=== PATIENT | female | born 1950 | race Caucasian/White ===

== ENCOUNTER 2018-04-19 11:02 | Observation (INO) | payer MEDICARE, MEDICAID, SELFPAY ==
[2018-02-02 20:38] VITALS: BMI 44.4
[2018-04-19] VITALS (14 sets, daily range): BP systolic 120–151; BP diastolic 61–92; PULSE 80–91; RESP 14–20; TEMP 36.3–36.7; O2SAT 85–96; BMI 45.8
--- NOTE | 2018-04-19 | DI.MRI.S_ITS ---
PROCEDURE: MR HEAD/BRAIN WO CON INDICATIONS: possible cva TECHNIQUE: Non-contrast axial T1 spin echo, axial T2 fast spin echo, sagittal and axial FLAIR, coronal T2 fast spin echo, axial gradient echo, axial diffusion and ADC through the brain. COMPARISON: [facility], MR, STROKE PROTOCOL, 02/22/2011, 8:30. [facility], CT, CT HEAD/BRAIN WO CON, 04/19/2018, 11:04. FINDINGS: Image quality: Excellent. CSF spaces: Ventricles appear symmetric in size and shape. Basal cisterns are patent. No extra-axial fluid collections. Brain: Old infarcts involving the frontal lobes bilaterally with associated encephalomalacia. No intracranial bleeds or mass effects. There is mild cerebral volume loss for age. There are mild periventricular and deep white matter chronic small vessel ischemic changes. Brainstem appears normal. Diffusion-weighted images show no acute ischemic insults. No chronic ischemic insults. Normal intravascular flow voids are present. Skull and face: Calvarial bone marrow is normal in signal. Orbits are normal. Sinuses: Sinuses and mastoids are clear. IMPRESSION: 1. No acute intracranial abnormalities. 2. 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 3. Cerebral volume loss and chronic microvascular ischemic changes. Dictated by: Carl Carpenter M.D. on 04/20/2018 at 8:11 Transcribed by: EMILEE on 04/20/2018 at 8:13 Approved by: Carl Carpenter M.D. on 04/20/2018 at 15:06
--- NOTE | 2018-04-19 11:02 | ED.HA ---
HPI - Headache General Chief Complaint: Headache Stated Complaint: headache Time Seen by Provider: 04/19/18 11:05 Source: patient and EMS Mode of arrival: EMS Limitations: no limitations History of Present Illness HPI Narrative: 67-year-old female with extensive medical history including prior strokes and migraines with stroke mimic presents by EMS for evaluation of slurred speech and left upper extremity weakness noted at 3:00 a.m.. She went to bed at 10:00 p.m. was at her normal baseline and awoke with head pain and the above-stated symptoms. She has a long history of migraines with neurologic findings such as this. She states that this is very typical for her migraines. Her pain is on the right side of her head and is associated with stuttering speech. Family members and caregiver states this is following a typical pattern. She has not been to our facility under the circumstances but has been to [facility]. Additionally she states that her right leg feels more weak than normal. MD Complaint: migraine Related Data Home Medications Medication Instructions Recorded Confirmed clopidogrel [Plavix] 75 mg PO DAILY #0 06/15/17 04/19/18 fenofibrate 54 mg PO DAILY #0 06/15/17 04/19/18 sertraline [Zoloft] 100 mg PO QDAY #0 06/27/17 04/19/18 metformin 500 mg PO BID 02/02/18 04/19/18 Calcium 1 tab PO DAILY 04/19/18 04/19/18 albuterol sulfate [Ventolin HFA] 1 - 2 puff INHALATION Q4H PRN 04/19/18 04/19/18 bupropion HCl 2 tab PO DAILY 04/19/18 04/19/18 gabapentin 600 mg PO TID 04/19/18 04/19/18 ibuprofen 1 tab PO TID PRN 04/19/18 04/19/18 magnesium 1 tab PO QAM 04/19/18 04/19/18 trazodone 50 - 100 mg PO BEDTIME 04/19/18 04/19/18 Allergies Allergy/AdvReac Type Severity Reaction Status Date / Time vancomycin Allergy Intermediate Flushing Verified 04/19/18 15:17 Review of Systems Review of Systems All systems reviewed & are unremarkable except as noted in HPI and below Constitutional Denies chills, Denies fever(s), Reports headache(s), Denies lethargy and Denies weakness Eyes Denies change in vision, Denies eye discharge, Denies irritation and Denies loss of vision ENT Ears, Nose, Mouth, and Throat: Denies change in voice, Reports headache(s), Denies neck pain and Denies sore throat Cardiovascular Denies chest pain, Denies irregular heart rhythm, Denies lightheadedness, Denies palpitations, Denies dyspnea, Denies dyspnea on exertion and Denies orthopnea Respiratory Denies cough, Denies dyspnea, Denies dyspnea on exertion and Denies wheezing Gastrointestinal Gastrointestinal: Denies abdominal pain, Denies change in bowel habits, Denies diarrhea, Denies nausea and Denies vomiting Genitourinary Denies hematuria, Denies flank pain, Denies urinary incontinence and Denies urinary urgency Musculoskeletal Denies neck pain Integumentary/Breasts Denies pruritus, Denies erythema, Denies rash and Denies wounds Neurologic Reports abnormal speech, Denies confusion, Reports headache(s), Reports lack of coordination, Denies loss of vision and Denies weakness Psychiatric Denies anxiety, Denies confusion, Denies depression, Denies homicidal ideation and Denies suicidal ideation Endocrine Denies palpitations Hematologic/Lymphatic Denies easy bruising Allergic/Immunologic Denies wheezing [facility] Medical History History of stroke (Acute) Morbid obesity with BMI of 45.0-49.9, adult (Acute) Type 2 diabetes mellitus (Acute) Surgical History History of (Inactive) History of ventral hernia repair (Inactive) Social History household members: caregiver Smoking Status: Never smoker alcohol intake: never Exam Narrative Exam Narrative: Chronically ill, morbidly obese 67-year-old female in moderate distress Initial Vital Signs Initial Vital Signs: Vital Signs Temperature 97.9 F 04/19/18 11:05 Pulse Rate 82 04/19/18 11:05 Respiratory Rate 20 04/19/18 11:05 Blood Pressure 142/71 H 04/19/18 11:05 Pulse Oximetry 96 04/19/18 11:05 Const General: cooperative, in distress and ill appearing Nutritional Appearance: obese Orientation: alert, awake, oriented x3 and not confused HENMT Head: normocephalic and atraumatic Ears: external ears normal and TM's normal bilaterally Nose: external nose normal and No nasal discharge Face and sinus: sinuses nontender, face symmetric, no sinus tenderness and No dry mucous membranes Mouth: oral mucosae normal and moist mucous membranes Teeth and gingiva: dentition normal Throat: tonsils normal and uvula midline Eyes General: appearance normal, both eyes and all related structures Eyelids: eyelids normal Conjunctivae: conjunctivae normal Sclera: sclerae normal Pupils: PERRL EOM: EOM intact bilaterally Chest Chest: normal inspection of the chest Resp Effort & Inspection: normal respiratory effort, able to speak in complete sentences, no respiratory distress and no use of accessory muscles Auscultation: clear to auscultation bilaterally, no rales, no rhonchi and no wheezes Cardio Rate: regular rate Rhythm: regular rhythm Heart Sounds: no click, no gallops, no murmurs and no rubs Pulses: normal peripheral pulses GI Inspection: non-distended Palpation: soft, no hepatosplenomegaly, No guarding, No pulsatile mass and No tender Auscultation: normal bowel sounds Back/Spine/Pelvis Back: No CVA tenderness Cervical Spine: cervical ROM normal and No pain with cervical ROM Thoracic/Lumbar Spine: thoracic and lumbar spine normal to inspection Neuro General: alert, awake and oriented x3 Cranial Nerves: CN's II-XI intact bilaterally Cognition: normal cognition Speech: expressive aphasia Motor: movement abnormality noted Scores NIH Stroke Scale Level of Conciousness: Alert, keenly responsive Ask month/age: Answers both questions correctly. Open/close eyes, close hand: Performs both tasks correctly Best gaze horizontal: Normal Visual graff: No visual loss Facial palsy: Normal symetrical movement Left arm drift: No drift for full 10 sec Right arm drift: Drifts down, not to bed Left leg drift: No drift for full 10 sec Right leg drift: Some effort against gravity, cannot maintain, drifts down to bed Limb ataxia: Absent Sensory on face/arms/legs: Mild to moderate sensory loss, can tell touch Best language: Severe aphasia, not much is understood, fragmented Dysarthria: Normal Extinction or inattention: No abnormality Total NIH Stroke scale score: 6 Course Orders Ordered: ED Orders 04/19/18 11:02 EKG-12 Lead Stat 04/19/18 11:19 CT head/brain wo con Stat 04/19/18 11:26 Basic Metabolic Panel Stat Partial Thromboplastin Time Stat Prothrombin Time INR Stat 04/19/18 12:08 Urine Culture Stat Urine Drug Screen, Rapid Stat Urine Microscopic Stat 04/19/18 13:03 CT angio head and neck Stat Sodium Chloride (Normal Saline 0.9%) 1,000 mls @ 150 mls/hr IV CONT DANN Last Infusion: 04/19/18 12:49 Dose: 0 mls/hr Admin: 04/19/18 11:51 Dose: 150 mls/hr Discontinued Medications Ketorolac Tromethamine (Toradol) 15 mg IV NOW ONE Stop: 04/19/18 12:19 Last Admin: 04/19/18 12:28 Dose: 15 mg Methylprednisolone (Solu-Medrol 125 Mg Vial) 125 mg IV NOW ONE Stop: 04/19/18 12:19 Last Admin: 04/19/18 12:28 Dose: 125 mg Prochlorperazine (Compazine) 10 mg IV NOW ONE Stop: 04/19/18 12:19 Last Admin: 04/19/18 12:28 Dose: 10 mg Reevaluation(s) Reevaluation #1: slight improvement in ROBRETS, still has weakness in RUE, RLE Consultations Consultation #1: call to [facility] Stroke regarding migraine type presentation with the addition of new neurologic findings. He denies sure that this certainly warrants further evaluation particularly given the weakness is in the distribution of her former stroke. Recommendation was CT angiogram of head and neck and call back Consultation #2: Call back to [facility] stroke with normal findings on CTA. His recommendation is admission with neuro checks and treatment for both migraine and stroke. If no resolution of migraine type symptoms by the morning then MRI is reasonable Time: 15:18 Consultation #3: Called to Dr. Hernadez who was happy to accept this patient on her service. We discussed ordering an MRI out of the emergency department but would prefer to prevent 2 loads of IV contrast on a diabetic patient on metformin in 1 day. Additionally, it is unreasonable to discharge this patient even upon receipt of a possibly normal MRI Time: 15:19 Vital Signs - 8 hr 04/19/18 11:05 04/19/18 11:07 04/19/18 11:50 Temperature 97.9 F Pulse Rate 82 81 87 Respiratory Rate 20 15 17 Blood Pressure 142/71 H Blood Pressure [Left Arm] 142/71 H 120/67 Pulse Oximetry 96 95 96 04/19/18 12:28 04/19/18 12:56 04/19/18 13:08 Temperature Pulse Rate 80 83 86 Respiratory Rate 16 15 Blood Pressure 120/67 Blood Pressure [Left Arm] 122/69 H 142/61 H Pulse Oximetry 94 92 04/19/18 13:31 04/19/18 13:53 04/19/18 14:20 Temperature Pulse Rate 89 91 H Respiratory Rate 14 15 14 Blood Pressure Blood Pressure [Left Arm] 129/64 H 136/61 H Pulse Oximetry 94 95 93 04/19/18 15:00 04/19/18 16:00 Temperature Pulse Rate 89 86 Respiratory Rate 14 14 Blood Pressure Blood Pressure [Left Arm] 142/70 H 143/70 H Pulse Oximetry 95 MDM - Headache Lab Data Result diagrams: 04/19/18 11:26 Lab Results 04/19/18 04/19/18 04/19/18 Range/Units 11:26 11:26 12:08 PT 11.7 (10.1-12.7) SECONDS INR 1.1 (0.9-1.3) APTT 34 (26.4-36.2) SECONDS Sodium 142 (137-145) mmol/L Potassium 4.6 (3.4-5.1) mmol/L Chloride 104 (98-107) mmol/L Carbon Dioxide 30 (22-32) mmol/L BUN 23 H (7-17) mg/dL Creatinine 1.00 (0.52-1.04) mg/dL Estimated GFR 55.6 L (>60) mL/min BUN/Creatinine Ratio 23.0 H (6-22) Glucose 109 (80-110) mg/dL Calcium 9.7 (8.4-10.2) mg/dL Urine RBC (0-5/HPF) Urine WBC (0-5/HPF) Ur Squamous Epith Cells Urine Bacteria (None) Ur Culture Indicated? Micro UA Comment Urine Opiates Screen Negative (Negative) Ur Oxycodone Screen Negative (Negative) Urine Methadone Screen Negative (Negative) Ur Barbiturates Screen Negative (Negative) U Tricyclic Antidepress Negative (Negative) Ur Phencyclidine Scrn Negative (Negative) Ur Amphetamines Screen Negative (Negative) U Methamphetamines Scrn Negative (Negative) Ur MDMA Scrn (Ecstasy) Negative (Negative) U Benzodiazepines Scrn Negative (Negative) Urine Cocaine Screen Negative (Negative) U Marijuana (THC) Screen Negative (Negative) 04/19/18 Range/Units 12:08 PT (10.1-12.7) SECONDS INR (0.9-1.3) APTT (26.4-36.2) SECONDS Sodium (137-145) mmol/L Potassium (3.4-5.1) mmol/L Chloride (98-107) mmol/L Carbon Dioxide (22-32) mmol/L BUN (7-17) mg/dL Creatinine (0.52-1.04) mg/dL Estimated GFR (>60) mL/min BUN/Creatinine Ratio (6-22) Glucose (80-110) mg/dL Calcium (8.4-10.2) mg/dL Urine RBC 0-1/hpf (0-5/HPF) Urine WBC 1-5/hpf (0-5/HPF) Ur Squamous Epith Cells None seen Urine Bacteria Many (>30) H (None) Ur Culture Indicated? Specimen cultured Micro UA Comment Not Reportable Urine Opiates Screen (Negative) Ur Oxycodone Screen (Negative) Urine Methadone Screen (Negative) Ur Barbiturates Screen (Negative) U Tricyclic Antidepress (Negative) Ur Phencyclidine Scrn (Negative) Ur Amphetamines Screen (Negative) U Methamphetamines Scrn (Negative) Ur MDMA Scrn (Ecstasy) (Negative) U Benzodiazepines Scrn (Negative) Urine Cocaine Screen (Negative) U Marijuana (THC) Screen (Negative) Imaging Data CT scan - head: Radiologist's impression: PROCEDURE: CT HEAD/BRAIN WO CON INDICATIONS: ROBERTS, stroke symptoms since 299 TECHNIQUE: Noncontrast 4.5 mm thick angled axial sections acquired from the foramen magnum to the vertex, with coronal and sagittal reformats. For radiation dose reduction, the following was used: automated exposure control, adjustment of mA and/or kV according to patient size. COMPARISON: [facility], CT, HEAD WITHOUT CONTRAST, 08/02/2017, 18:42. FINDINGS: Image quality: Excellent. CSF spaces: Basal cisterns are patent. No extra-axial fluid collections. Ventricles are normal in size and shape. Brain: No intracranial hemorrhage, mass, or mass effect. There are bilateral areas of encephalomalacia in the frontal lobes with involvement of the insular cortices as well as a smaller region in the right occipital lobe. Findings are consistent with sequela of prior infarcts and appear unchanged from the prior study. No definite new effacement of the schneider-white matter junction identified. Skull and face: Calvarium and visualized facial bones are intact, without suspicious lesions. Sinuses: Visualized sinuses and mastoids are clear. IMPRESSION: 1. No definite acute intracranial abnormality. 2. Sequelae of old infarcts redemonstrated in the bilateral frontal and right occipital lobes as well as involvement of the bilateral insular cortices. Dictated by: Brijesh Bear M.D. on 04/19/2018 at 11:28 Approved by: Brijesh Bear M.D. on 04/19/2018 at 11:32 Discharge Plan Departure Patient Disposition: Admitted As Inpatient Clinical Impression: Stroke Admit Date/Time: 04/19/18 16:09 Admit Provider: Fatimah Hernadez
--- NOTE | 2018-04-19 11:13 | PC.NURSE ---
BGL 108 in field
--- NOTE | 2018-04-19 11:19 | DI.CT.S_ITS ---
PROCEDURE: CT HEAD/BRAIN WO CON INDICATIONS: ROBERTS, stroke symptoms since 0300 TECHNIQUE: Noncontrast 4.5 mm thick angled axial sections acquired from the foramen magnum to the vertex, with coronal and sagittal reformats. For radiation dose reduction, the following was used: automated exposure control, adjustment of mA and/or kV according to patient size. COMPARISON: [facility], CT, HEAD WITHOUT CONTRAST, 08/02/2017, 18:42. FINDINGS: Image quality: Excellent. CSF spaces: Basal cisterns are patent. No extra-axial fluid collections. Ventricles are normal in size and shape. Brain: No intracranial hemorrhage, mass, or mass effect. There are bilateral areas of encephalomalacia in the frontal lobes with involvement of the insular cortices as well as a smaller region in the right occipital lobe. Findings are consistent with sequela of prior infarcts and appear unchanged from the prior study. No definite new effacement of the schneider-white matter junction identified. Skull and face: Calvarium and visualized facial bones are intact, without suspicious lesions. Sinuses: Visualized sinuses and mastoids are clear. IMPRESSION: 1. No definite acute intracranial abnormality. 2. Sequelae of old infarcts redemonstrated in the bilateral frontal and right occipital lobes as well as involvement of the bilateral insular cortices. Dictated by: Brijesh Bear M.D. on 04/19/2018 at 11:28 Approved by: Brijesh Bear M.D. on 04/19/2018 at 11:32
[2018-04-19] MEDS: SODIUM CHLORIDE 0.9% 1,000 ML 150 ML IV ×2 (11:51→17:23)
[2018-04-19 11:52] LABS: INR 1.1 (0.9-1.3); Prothrombin Time 11.7 SECONDS (10.1-12.7)
[2018-04-19 11:55] LABS: PTT Partial Thromboplastin Tim 34 SECONDS (26.4-36.2)
[2018-04-19 11:56] LABS: Blood Urea Nitrogen 23 mg/dL (7-17); Calcium 9.7 mg/dL (8.4-10.2); Carbon Dioxide 30 mmol/L (22-32); Chloride 104 mmol/L (98-107); Estimated Glomerular Filt Rate 55.6 mL/min (>60); Glucose 109 mg/dL (80-110); HEMOLYSIS < 15 (0-50); Potassium 4.6 mmol/L (3.4-5.1); Sodium 142 mmol/L (137-145)
[2018-04-19 12:17] LABS: Urine Amphetamines Negative (Negative); Urine Barbiturates Negative (Negative); Urine Benzodiazepines Negative (Negative); Urine Cocaine Negative (Negative); Urine MDMA Negative (Negative); Urine Methadone Negative (Negative); Urine Methamphetamines Negative (Negative); Urine Morphine/Opi cutoff 2000 Negative (Negative); Urine Oxycodone Negative (Negative); Urine Phencyclidine Negative (Negative); Urine THC Negative (Negative); Urine Tricyclic Antidepressant Negative (Negative)
[2018-04-19] MEDS: methylPREDNISolone 125 MG/2 ML VIAL IV (12:28)
[2018-04-19] MEDS: KETOROLAC 60 MG/2 ML VIAL 15 MG IV (12:28)
[2018-04-19] MEDS: PROCHLORPERAZINE 10 MG/2 ML VIAL IV (12:28)
[2018-04-19 12:31] LABS: RBC Urine 0-1/HPF (0-5/HPF); Squamous Epithelial Cell Urine None Seen; WBC Urine 1-5/HPF (0-5/HPF)
[2018-04-19 12:32] LABS: Bacteria Urine Many (>30); Culture Indicated Urine Specimen Cultured
--- NOTE | 2018-04-19 13:03 | DI.CT.S_ITS ---
PROCEDURE: CT ANGIO HEAD AND NECK INDICATIONS: stroke like symptoms, request from Stroke Neurologist TECHNIQUE: Pre-contrast 4.5 mm thick sections acquired from the foramen magnum to the vertex. After the administration of intravenous contrast, 1 mm thick sections acquired from the aortic arch through the [place]. Post-contrast 4.5 mm thick sections then re-acquired from the foramen magnum to the vertex. 3-dimensional [id number] (MIP) and/or volume rendering reformats were acquired of the central intracranial vasculature and neck separately. COMPARISON: [facility], CT, CT HEAD/BRAIN WO CON, 04/19/2018, 11:04. [facility], CT, HEAD WITHOUT CONTRAST, 08/02/2017, 18:42. [facility], MR, STROKE PROTOCOL, 02/22/2011, 8:30. FINDINGS: Image quality: Excellent. BRAIN: CSF spaces: Ventricles are normal in size and shape. Basal cisterns are patent. No extra-axial fluid collections. Brain: No midline shift. No intracranial bleeds or masses. [place]-white matter interface appears intact. Bilateral frontal, insular and right occipital areas of low attenuation. Skull and face: Calvarium and facial bones appear intact, without suspicious lesions. Orbits appear normal. Sinuses: Sinuses and mastoids are clear. HEAD CT ANGIOGRAPHY: Anterior circulation: Intracranial internal carotid arteries are normal in size and flow. The flow within the paired anterior cerebral arteries is normal and symmetric. The flow within the middle cerebral arteries is normal and symmetric. The anterior communicating artery is seen. No aneurysms are seen. Posterior circulation: Visualized portions of the vertebral arteries demonstrate normal caliber, and join to form a normal appearing basilar artery. Flow within the posterior cerebral arteries is normal and symmetric. No aneurysms are seen. 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 The origins of the common carotid arteries appear patent. The common carotid arteries demonstrate normal caliber and courses. The bifurcation regions are both widely patent. The internal carotid arteries demonstrate normal calibers and courses. Posterior circulation: The origins of the vertebral arteries both appear widely patent. The more superior extracranial portions of both vertebral arteries also demonstrate normal courses and calibers. They join to form a normal appearing basilar artery. Soft tissues: Visualized neck soft tissues demonstrate no suspicious abnormalities. Bones: No suspicious bony lesions. Visualized cervical spine appears normally aligned. IMPRESSION: 1. No acute intracranial process. Stable appearance of previous areas of ischemia as noted above. 2. No areas of hemodynamically significant stenosis, vascular occlusion or aneurysmal dilation within the anterior or posterior circulation. 3. No areas of hemodynamically significant stenosis, vascular occlusion or aneurysmal dilation within the neck vasculature. Any quantitative measurements of stenosis were performed using NASCET criteria. Dictated by: Justine Dickens M.D. on 04/19/2018 at 13:49 Approved by: Justine Dickens M.D. on 04/19/2018 at 14:38
--- NOTE | 2018-04-19 13:24 | PC.NURSE ---
CT angio of head completed.
--- NOTE | 2018-04-19 19:01 | PM.HP.1 ---
History of Present Illness Date Patient Seen: 04/19/18 Time Patient Seen: 18:45 Chief complaint: headache Narrative: 67-year-old female, under the primary care of Dr. Man Melara who was brought to the [facility] Emergency room earlier today with concern of stuttered speech and right-sided weakness. She has been having migraine headache when she has headache and stuttered speech and some right leg weakness. She woke up at 3 o'clock in the morning with headache. She also has stuttered speech like she usually does. This time the right leg weakness seem to be worse. She also has numbness on the right lateral leg. She denies weakness on the right upper extremity. She was having difficulty ambulating at home. She was not able to stand for more than 5 min due to the leg weakness. She was subsequently brought to the emergency room. CT head and neck angiogram did not reveal acute intracranial process. There was stable appearance of previous stroke. There was no hemodynamics significant stenosis or vascular occlusion. She was admitted to the medicine floor for possible TIA versus CVA. 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 Darryl Bay. Family & Social History Social History: household members caregiver Prior Living Arrangements Apartment/Condo Safety & Behavioral: Feels Safe in Current Yes Environment Been Physically Hurt or No Threatened By a Person Suicidal Ideation Description None Suicide Plan Description No Plan Tobacco & Substance use: Smoking Status Never smoker alcohol intake never alcohol intake frequency 0-2 drinks per day Substance Use Type does not use Meds Home Medications Medication Instructions Recorded Confirmed Type clopidogrel [Plavix] 75 mg PO DAILY #0 06/15/17 04/19/18 History fenofibrate 54 mg PO DAILY #0 06/15/17 04/19/18 History sertraline [Zoloft] 100 mg PO QDAY #0 06/27/17 04/19/18 History metformin 500 mg PO BID 02/02/18 04/19/18 History Calcium 1 tab PO DAILY 04/19/18 04/19/18 History albuterol sulfate [Ventolin HFA] 1 - 2 puff INHALATION Q4H PRN 04/19/18 04/19/18 History bupropion HCl 2 tab PO DAILY 04/19/18 04/19/18 History gabapentin 600 mg PO TID 04/19/18 04/19/18 History ibuprofen 1 tab PO TID PRN 04/19/18 04/19/18 History magnesium 1 tab PO QAM 04/19/18 04/19/18 History trazodone 50 - 100 mg PO BEDTIME 04/19/18 04/19/18 History Allergies Allergy/AdvReac Type Severity Reaction Status Date / Time vancomycin Allergy Intermediate Flushing Verified 04/19/18 15:17 Exam Vital Signs (past 8 hours): - 04/19/18 11:05 04/19/18 11:07 04/19/18 11:50 Temperature 97.9 F Pulse Rate 82 81 87 Respiratory Rate 20 15 17 Blood Pressure 142/71 H Blood Pressure [Left Arm] 142/71 H 120/67 Pulse Oximetry 96 95 96 04/19/18 12:28 04/19/18 12:56 04/19/18 13:08 Temperature Pulse Rate 80 83 86 Respiratory Rate 16 15 Blood Pressure 120/67 Blood Pressure [Left Arm] 122/69 H 142/61 H Pulse Oximetry 94 92 04/19/18 13:31 04/19/18 13:53 04/19/18 14:20 Temperature Pulse Rate 89 91 H Respiratory Rate 14 15 14 Blood Pressure Blood Pressure [Left Arm] 129/64 H 136/61 H Pulse Oximetry 94 95 93 04/19/18 15:00 04/19/18 16:00 04/19/18 16:30 Temperature 98.0 F Pulse Rate 89 86 86 Respiratory Rate 14 14 18 Blood Pressure 151/75 H Blood Pressure [Left Arm] 142/70 H 143/70 H Pulse Oximetry 95 93 Oxygen Delivery Method Room Air Oxygen Flow Rate 3 Objective Labs Result Diagrams: 04/19/18 11:26 Labs: Laboratory Results - last 24 hr 04/19/18 04/19/18 04/19/18 11:26 11:26 12:08 PT 11.7 INR 1.1 APTT 34 Sodium 142 Potassium 4.6 Chloride 104 Carbon Dioxide 30 BUN 23 H Creatinine 1.00 Estimated GFR 55.6 L BUN/Creatinine Ratio 23.0 H Glucose 109 Calcium 9.7 Urine RBC Urine WBC Ur Squamous Epith Cells Urine Bacteria Ur Culture Indicated? Micro UA Comment Urine Opiates Screen Negative Ur Oxycodone Screen Negative Urine Methadone Screen Negative Ur Barbiturates Screen Negative U Tricyclic Antidepress Negative Ur Phencyclidine Scrn Negative Ur Amphetamines Screen Negative U Methamphetamines Scrn Negative Ur MDMA Scrn (Ecstasy) Negative U Benzodiazepines Scrn Negative Urine Cocaine Screen Negative U Marijuana (THC) Screen Negative 04/19/18 12:08 PT INR APTT Sodium Potassium Chloride Carbon Dioxide BUN Creatinine Estimated GFR BUN/Creatinine Ratio Glucose Calcium Urine RBC 0-1/hpf Urine WBC 1-5/hpf Ur Squamous Epith Cells None seen Urine Bacteria Many (>30) H Ur Culture Indicated? Specimen cultured Micro UA Comment Not Reportable Urine Opiates Screen Ur Oxycodone Screen Urine Methadone Screen Ur Barbiturates Screen U Tricyclic Antidepress Ur Phencyclidine Scrn Ur Amphetamines Screen U Methamphetamines Scrn Ur MDMA Scrn (Ecstasy) U Benzodiazepines Scrn Urine Cocaine Screen U Marijuana (THC) Screen Assessment & Plan Plan: Assessment/Plan Narrative: 1. Stuttered speech and right leg weakness: Most likely from her atypical migraine headache. We will do a brain MRI in the morning to rule out acute CVA or TIA. She received full-dose aspirin at the ER today. Continue gentle IV hydration with normal saline at 75 cc an hour. Goal of blood pressure will be a 150-160 systolic 2. Hypertension: Continue outpatient medication regimen. Aiming for systolic blood pressure around 150-160 to ensure perfusion. 3. Hyperlipidemia: She is on low-dose fenofibrate. We will check fasting lipid panel in the morning. We will start atorvastatin based on the recent guidelines of moderate to high-intensity statin treatment for patients with type 2 diabetes. 4. Type 2 diabetes: Her recent hemoglobin A1c was in good range. We will continue metformin 500 mg twice a day. We will check her fingerstick glucose readings. 5. Morbid obesity, BMI 45.9. She needs outpatient lifestyle modifications and weight loss. 6. Disposition: Possible discharge home tomorrow after MRI scan. Quality VTE Deep Vein Thrombosis/Pulmonary Embolism Present on Admission: No
[2018-04-19] MEDS: METFORMIN HCL 500 MG TABLET PO (22:35)
[2018-04-19] MEDS: GABAPENTIN 600 MG TABLET PO (22:35)
[2018-04-19] MEDS: TRAZODONE 50 MG TABLET PO (22:35)
[2018-04-19] MEDS: SERTRALINE 50 MG TABLET 100 MG PO (22:36)
[2018-04-19] MEDS: ATORVASTATIN 20 MG TABLET PO (22:36)
--- NOTE | 2018-04-19 23:12 | PC.NURSE ---
1630- Pt arrived to room 213 from ED via stretcher. NIH score=3 pt stuttering while performing NIH, but able to answer all questions and read/speak all sentances/words/describe pictures. Pt able to stand and use BSC with FWW. LAC NS @ 75 infusing. Pt able tolerating swallowing well and placed on ADA diet with fluids. Call light in reach and bed alarm on.
[2018-04-19] MEDS: IBUPROFEN 400 MG TABLET 800 MG PO (23:59)
[2018-04-20] VITALS (10 sets, daily range): BP systolic 128–144; BP diastolic 49–81; PULSE 79–91; RESP 16–19; TEMP 36.2–37.1; O2SAT 91–97
[2018-04-20 06:34] LABS: Cholesterol 148 mg/dL (140-199); HDL Cholesterol 50 mg/dL (40-60); LDL Cholesterol Calculated 82 mg/dL (<100); Triglycerides 79 mg/dL (35-150)
[2018-04-20] MEDS: SODIUM CHLORIDE 0.9% 1,000 ML 75 ML IV (06:53)
[2018-04-20] MEDS: buPROPion SR 150 MG TAB 300 MG PO (09:23)
[2018-04-20] MEDS: FENOFIBRATE 48 MG TABLET PO (09:24)
[2018-04-20] MEDS: GABAPENTIN 600 MG TABLET PO ×3 (09:24→20:47)
[2018-04-20] MEDS: METFORMIN HCL 500 MG TABLET PO ×2 (09:24→20:47)
[2018-04-20] MEDS: CLOPIDOGREL 75 MG TABLET PO (09:24)
[2018-04-20] MEDS: SERTRALINE 50 MG TABLET 100 MG PO (09:25)
[2018-04-20] MEDS: IBUPROFEN 400 MG TABLET 800 MG PO ×3 (11:13→22:05)
--- NOTE | 2018-04-20 12:00 | PT.IIE ---
Surgical History (Last Reviewed 04/19/18 @ 12:46 by Eliseo De Leon DO) History of (Inactive) History of ventral hernia repair (Inactive) Medical History (Last Reviewed 04/19/18 @ 19:05 by Fatimah Hernadez MD) History of stroke (Acute) Morbid obesity with BMI of 45.0-49.9, adult (Acute) Type 2 diabetes mellitus (Acute) Physical Therapy Inpatient Evaluation/Re-Eval M1 PT/OT-IP Prior Functional Status Start: 04/20/18 12:54 Freq: NEEDED Status: Active Protocol: Document 04/20/18 12:00 MDD (Rec: 04/20/18 13:21 [facility] [id number]) Medical Review Prior Functional Status Medical History Reviewed Yes Communication nml - does report stuttering and slurring is typical during a ROBERTS, but typically goes away within a few hours Mobility and Gait Used a four wheeled walker in the community. Furniture/wall walks in the home. Activities of Daily Living and IADL's Has a caregiver to assist from 8-4, 4x per week. Helps her with cleaning, laundry, shopping. Was indepedent with toileting, self care etc. Prior Functional Level (Other details) Had been walking with her caregiver up to 1/4 mile daily with her 4WW. Daughter and 2 grandchildren live in the same apartment complex, but not in the same apartment. Social History Household Members none Living Arrangements Apartment/Condo Number of Floors (Floors) One Floor Number of Stairs To Enter/Railing? 0 Home Environment Standard Height Toilet Home Equipment Tub Transfer Bench Grab Bars Near Toilet Employment Status Unemployed M2 PT-IP Current Condition Start: 04/20/18 12:54 Freq: NEEDED Status: Active Protocol: Document 04/20/18 12:00 MDD (Rec: 04/20/18 13:21 MDD [id number]) Physical Therapy Current Condition Current Condition Evaluation Date 04/20/18 Treatment Diagnosis R sided weakness, ROBERTS Onset Date 04/19/18 M3 PT-IP Subjective Start: 04/20/18 12:54 Freq: NEEDED Status: Active Protocol: Document 04/20/18 12:00 MDD (Rec: 04/20/18 13:21 MDD [id number]) Subjective Physical Therapy Visit Type Type Initial Evaluation Visit Start Time 11:30 Visit Stop Time 12:00 Total Visit Minutes 30 Number of IRRIGATOR Visits 0 Physical Therapy Visit Comments Patient Comments Reports feeling much better than yesterday. Still feels that her right leg is weaker and not working right. Therapy Pain Assessment Pain When Pain Assessed At Rest Pain Present Pain Present Pain Reported Location Head Intensity 5 Scale Used Numeric (1 - 10) Description Aching Pain Management Techniques Timing of Activity with Medications M4 PT-IP Mobility and Gait Start: 04/20/18 12:54 Freq: NEEDED Status: Active Protocol: Document 04/20/18 12:00 MDD (Rec: 04/20/18 13:21 MDD [id number]) PT-Bed Mobility Assessment Rolling Type of Rolling Roll to Left Level of Assist Independent Supine to Sit Supine to Sit Moderate Assistance Scooting Scooting to Edge of Bed Contact Guard Assistance PT-Transfer Assessment Sit to and From Stand Sit to and from Stand Contact Guard Assistance Equipment Transfer Assistive Device Gait Belt Front Wheeled Walker Transfers Transfer Destination Toilet Transfer Ability Level of Assist Contact Guard Assistance Gait Assessment Gait Gait Assistance Required: Contact Guard Assist Distance (Feet) (feet) 20 Assistive Devices Assistive Device Gait Belt Front Wheeled Walker Gait Deviations General Gait Pattern Decreased Stride Length Decreased Feet Clearance Factors Limiting Gait Function Factors Limiting Gait Function Decreased Strength Comments Gait Comments foot drop R LE, heavy cues for increased R hip/knee flexion, pointing toe towards ceiling. Able to ambulate to and from the bathroom with significant fatigue. PT-Balance Assessment Sitting Balance and Reactions Static Sitting Balance Ability Normal Dynamic Sitting Balance Ability Normal Standing Balance and Reactions Static Standing Balance Ability Good Dynamic Standing Balance Ability Fair M5 PT-IP Objective Assessments Start: 04/20/18 12:54 Freq: NEEDED Status: Active Protocol: Document 04/20/18 12:00 MDD (Rec: 04/20/18 13:21 MDD [id number]) Orientation Orientation/Cognition Level of Alertness Alert Orientation Name Age Birthday Month Date Year Day of Week Place Situation Safety Awareness Understands Safety Issues Memory Description No Deficits Noted Comments Intermittently stutters, but able to report history and respond to questions appropriately. Gross Range of Motion Upper Extremity ROM Assessment Within Functional Limits Lower Extremity ROM Assessment Right Impaired Strength Upper Extremity Strength Assessment Right Impaired Hand R supervisor sawmill strength appears slightly less than L (she is R hand dominant). Lower Extremity Strength Assessment Right Impaired Hip 3+/5 hip flexion (R) Knee 4/5 R knee extension, flexion Ankle 2/5 dorsiflexion, 3+/5 plantarflexion, 2/5 eversion Sensation Assessment Sensation Gross Sensation WNL Light Touch Absent Proprioception (Position) Intact Sensation Description Paresthesia Comments Sensation Comments L4, L5 dermatomes on R with slight decreased light touch sensation M6 PT-IP Treatment Start: 04/20/18 12:54 Freq: NEEDED Status: Active Protocol: Document 04/20/18 12:00 MDD (Rec: 04/20/18 13:21 [facility] [id number]) Physical Therapy Treatment Education Education Provided Safety Other Treatments Other Treatment Performed educated patient to work on ankle pumps when resting M7 PT-IP Assessment and Plan Start: 04/20/18 12:54 Freq: NEEDED Status: Active Protocol: Document 04/20/18 12:00 MDD (Rec: 04/20/18 13:21 [facility] [id number]) PT Summary Assessment and Plan Potential Rehabilitation Potential Good Status of Condition at Evaluation Evolving Summary Impairments Pain Strength Transfers Gait Activity Tolerance Progress Towards Goals Progressing Toward Goals Assessment Summary Pt requires mod A for supine to sit with HOB flat. CGA for sit to stand. CGA for gait with heavy cueing to increase R foot clearance. Pt presents well below functional baseline and should benefit from inpatient PT to improve her functional mobility. May also benefit from OT consult as well. Goals Bed Mobility Goal Independent Transfer Goal Independent Gait Goal Independent Gait Distance 50 feet with LRAD on level ground Days to Meet Goals 3 Frequency of Treatment Frequency Of Treatment Once a Day Treatment Plan Physical Therapy Treatment Plan Bed Mobility Training Gait Training Therapeutic Exercise Other Recommendations and Next Treatment Continue with bed mobility, Focus gait training, LE strengthening. Recommendations To Nursing Amount of Assist Needed 1 Person Assist Discharge Recommendations PT Discharge Recommendations SNF Rehab
--- NOTE | 2018-04-20 12:19 | PM.PN.1 ---
Subjective Date Patient Seen: 04/20/18 Time Patient Seen: 12:20 Interval history: Still complains of weakness on the right side worse than her baseline Exam Vital Signs (past 8 hours): - 04/20/18 04:35 04/20/18 08:30 Temperature 97.6 F 97.2 F L Pulse Rate 79 79 Respiratory Rate 18 18 Blood Pressure 128/70 H 144/81 H Pulse Oximetry 91 94 Oxygen Delivery Method Room Air Oxygen Flow Rate 0 Narrative Exam Narrative: Sitting in a chair who appears in no acute distress appears a little bit anxious Lungs clear Heart regular rhythm Abdomen obese Neuro exam she is awake alert and oriented she has some expressive aphasia some stuttering also she has weakness on the right upper and lower extremities that she says is worse than her baseline she does have a history of old stroke Objective Labs Result Diagrams: 04/19/18 11:26 Labs: Laboratory Results - last 24 hr 04/19/18 04/20/18 12:08 05:45 Triglycerides 79 Cholesterol 148 LDL Cholesterol, Calc 82 HDL Cholesterol 50 Urine RBC 0-1/hpf Urine WBC 1-5/hpf Ur Squamous Epith Cells None seen Urine Bacteria Many (>30) H Ur Culture Indicated? Specimen cultured Micro UA Comment Not Reportable Assessment & Plan Plan: Assessment/Plan Narrative: 1. Stuttered speech and right leg weakness: Most likely from her atypical migraine headache. MRI was normal. She still having a lot of weakness however that seems to be worse than usual she thinks this is due to her migraines. Will have physical therapy continue working with therapy. 2. Hypertension: Continue outpatient medication regimen. Aiming for systolic blood pressure around 150-160 to ensure perfusion. 3. Hyperlipidemia: She is on low-dose fenofibrate. We will check fasting lipid panel in the morning. We will start atorvastatin based on the recent guidelines of moderate to high-intensity statin treatment for patients with type 2 diabetes. 4. Type 2 diabetes: Her recent hemoglobin A1c was in good range. We will continue metformin 500 mg twice a day. We will check her fingerstick glucose readings. 5. Morbid obesity, BMI 45.9. She needs outpatient lifestyle modifications and weight loss. 6. Disposition: Probable discharge home on Tuesday Quality VTE Deep Vein Thrombosis/Pulmonary Embolism Present on Admission: No
--- NOTE | 2018-04-20 12:34 | PC.NURSE ---
Bushra states her R leg weakness is still not back to baseline, though she is better than yesterday. Assessment shows R leg obviously weaker than L. Able to sit up in chair and work with PT despite on-going migraine headache. Ida coma score=15. VSS.
--- NOTE | 2018-04-20 13:27 | CM.DPC ---
Left a message with [facility]/Josh that patient is admitted and asking to call back with a fax number.
--- NOTE | 2018-04-20 13:28 | CM.DANOTE ---
Addendum entered by Kayleen Pitt LPN 04/20/18 13:50: please note update: of PCS template: initial info included old info from an old admit that showed up in documentation. Correct info is documented below initial at 1320 today. Original Note: Discharge Planning/Care Management DCP: assessment: case received EMR reviewed and met with pt this morning. Introduced self and role. Met again with pt now to gather more information re the d/c issues and options. Pt is a 67 year old female who lives in [place] and admitted to care of hospitalist team yesterday evening. Admission status: confirmed thus far as OBS, per [facility]. Payer: Medicare and Medicaid. PCP: Dr. Man Garcia Neurologist: Darryl Hill PT saw pt today, recommends OT, order obtained. Pt states she does get the post stroke headaches and that if I catch them early enough I go to my doctor and he has a standing order for a toradol injection which usually helps. Pt says she is well supported at home: [employer] worker 8-4 4x week for cleaning, laundry, transport and daily walks outside. Tuesdays is Bible study. Saturdays: library/computer day. Tuesday: scientologist via bus. Pt's daughter sunny bernstein and she checks on me and is helpful. Meals: provided by [employer]. P: likely home when stable for same....when pt was here last year her [facility] caregiver picked her up. Follow.. CM Discharge Assessment Start: 04/20/18 13:11 Freq: Status: Active Protocol: Document 04/20/18 13:11 ITV (Rec: 04/20/18 13:13 ITV [id number]) Discharge Planning Assessment History Provided By Patient Medical Record Has Patient been admitted in last 30 No days? Is this patient on Medicare? Yes Prior Living Arrangements Apartment/Condo Household Members caregiver Is patient alert and oriented? Yes Referrals Initiated None needed Discharge Plan Home Transportation Arrangement daughter sade to pick and shovel worker patient todat ar 1500. Additional Comment Patient states she has notified [facility] worker of her discharge plans. Document 04/20/18 13:20 ITV (Rec: 04/20/18 13:27 ITV [id number]) Discharge Planning Assessment History Provided By Patient Medical Record Has Patient been admitted in last 30 No days? Is this patient on Medicare? Yes Prior Living Arrangements Apartment/Condo Type of transporation used prior to Relies on Others admit Comment Patient's daughter lives in the apt building across the street from pt. Independent with ADL's No: independent with basic functional mobility Is patient alert and oriented? Yes Needs Assistance With Meal Prep Home Chores / Shopping Caregiver for Another No DME Already Rented / Owned FWW / Walker Comment uses 4ww Comment Pt identifies Alexsandra Vaishali as her [facility] Doubler Operator. Her caregiver is provided by [facility]. [facility] will find contact numbers and will fax clinical as per process. Review Status In Process Next Review Type Continued Stay Review
--- NOTE | 2018-04-20 13:33 | ST.IPSCREEN ---
Addendum entered and electronically signed by Piero Mejia 04/20/18 13:40: Late Note Entry. Time of screen: 10:00 AM. Original Note: SENIOR QUALITY CONTROL INSPECTOR spoke with patient regarding her neurological symptoms secondary to her migraine. She stated that she usually starts to stutter and experience memory difficulty with her headaches, but these symptoms typically resolve in 4-5 hours. However, current symptoms had been lasting for 25+ hours, which is unusual. She did present with ongoing stuttering throughout the conversation with SENIOR QUALITY CONTROL INSPECTOR as well as word finding difficulty. She told SENIOR QUALITY CONTROL INSPECTOR that she does have memory difficulty at baseline, but uses multiple calendars and wall reminders at home to help herself keep up with her own schedule. She also has a scrum product owner to assist at home. SENIOR QUALITY CONTROL INSPECTOR discussed the patient's current status and recommended an evaluation to determine a new baseline for the patient's neurological issues during episodes of severe head pain. The patient agreed. SENIOR QUALITY CONTROL INSPECTOR spoke with RN, Luci, who ordered a speech evaluation. SENIOR QUALITY CONTROL INSPECTOR to follow up for formal evaluation of speech and memory. No billable charge this visit. Total time: 10 minutes.
--- NOTE | 2018-04-20 15:08 | OT.IP.EVAL ---
Past Medical History (Last Reviewed 04/19/18 @ 19:05 by Fatimah Hernadez MD) History of stroke (Acute) Morbid obesity with BMI of 45.0-49.9, adult (Acute) Type 2 diabetes mellitus (Acute) Surgical History (Last Reviewed 04/19/18 @ 12:46 by Eliseo De Leon DO) History of (Inactive) History of ventral hernia repair (Inactive) Occupational Therapy Inpatient Evaluation/Re-Eval M1 PT/OT-IP Prior Functional Status Start: 04/20/18 12:54 Freq: NEEDED Status: Active Protocol: Document 04/20/18 15:08 PJM (Rec: 04/20/18 15:59 PJ [id number]) Medical Review Prior Functional Status Medical History Reviewed Yes Diet/Fluid Consistency Regular Communication nml - does report stuttering and slurring is typical during a ROBERTS, but typically goes away within a few hours Mobility and Gait Used a four wheeled walker in the community. Furniture/wall walks in the home. Activities of Daily Living and IADL's Has a caregiver to assist from 8-4, 4x per week. Helps her with cleaning, laundry, shopping. Was independent with toileting, self care etc. Pt receives Meals on Wheels . Prior Functional Level (Other details) Had been walking with her caregiver up to 1/4 mile daily with her 4WW. Daughter and 2 grandchildren live in the same apartment complex, but not in the same apartment. Social History Household Members none Living Arrangements Apartment/Condo Number of Floors (Floors) One Floor Number of Stairs To Enter/Railing? none Home Environment Standard Height Toilet Tub/Shower Home Equipment Four Wheel Walker Tub Transfer Bench Surveillance Director Sock Aid Grab Bars Near Toilet Employment Status Retired M2 OT-IP Current Condition Start: 04/20/18 15:29 Freq: Status: Active Protocol: Document 04/20/18 15:08 PJM (Rec: 04/20/18 15:59 PJM [id number]) Occupational Therapy Current Condition Current Condition Evaluation Date 04/20/18 Treatment Diagnosis R hand incoordination, decreased functional mobility due to TIA/migraine Diagnosis Onset Date 04/19/18 Post Operative Precautions Other Precautions fall risk M3 OT- IP Subjective and Pain Start: 04/20/18 15:29 Freq: Status: Active Protocol: Document 04/20/18 15:08 PJM (Rec: 04/20/18 15:59 PJ [email or web address]) OT- Subjective Occupational Therapy Visit Type Type Initial Evaluation Visit Start Time 14:25 Visit Stop Time 15:08 Total Visit Minutes 43 Occupational Therapy Visit Comments Patient Comments Usually when I get these migraines, the problems only last about 8 hrs. This is the longest one has lasted. Patient/Caregiver Goals to go home, get back to normal OT Pain Assessment Pain When Pain Assessed After Treatment Pain Present Pain Present Pain Reported Location Head Intensity 5 Scale Used Numeric (1 - 10) Description Aching M4 OT- IP ADL's Start: 04/20/18 15:29 Freq: Status: Active Protocol: Document 04/20/18 15:08 PJM (Rec: 04/20/18 15:59 PJ [email or web address]) OT [id number] General Evaluation Self-Feeding Ability Independent Comments OT Self-Feeding Comments Pt reports no coordination problems using eating utensil using R dominant hand. OT ADL-Grooming General Evaluation Grooming Ability Independent Areas Needing Assistance Face Washing OT ADL-Oral Care General Eval Oral Care Ability Independent Areas of Assistance Brushing Teeth Comments Oral Care Comments Pt reports no difficulty with R hand coordination with toothbrush. OT ADL-Dressing General Eval Lower Body Dressing Ability Standby Assistance Areas Needing Assistance Socks Assistive Devices Dressing Assistive Devices Surveillance Director Sock Aid Comments OT Dressing Comments Pt has home help aide and sock aid but has not used since back surgery in Jun 2017. Pt needed mod cues to recall how to use sock aid as she cannot reach R foot at present. Provided education re: use of home help aide and sock aid for lower body dressing. Pt used home help aide to doff B socks. Pt has no other clothes here at present. Daughter to bring them tomorrow. OT ADL-Toileting General Evaluation Toileting Ability Independent OT ADL-Bathing Comments OT Bathing Comments to be assessed M5 OT- IP IADL's Start: 04/20/18 15:29 Freq: Status: Active Protocol: Document 04/20/18 15:08 PJM (Rec: 04/20/18 15:59 PJ [email or web address]) OT-Instrumental Activities of Daily Living Deficits IADL Deficits Identified Deficits Home Safety Awareness Awareness of Need for Assistance at Home Good Awareness Ability to Problem Solve Emergency Able to Problem Solve Situations Medication Management Medication Management No Deficits Identified Medication Management Comments Pt reports managing own meds with use of pillbox. Money Management Money Management No Deficits Identified Money Management Comments Pt pays bills with debit card. Meal Preparation Meal Preparation Caregiver Provides Assist Meal Preparation Comments Caregiver assists with grocery shopping and pt also gets Meals on Wheels. Manager Women Manager Women Caregiver Provides Assist Manager Women Comments Caregiver assists with cleaning and laundry. Driving Driving Caregiver Provides Assist Driving Comments Pt no longer drives since stroke. M6 OT- IP Functional Cognition Start: 04/20/18 15:29 Freq: Status: Active Protocol: Document 04/20/18 15:08 PJM (Rec: 04/20/18 15:59 PJ [email or web address]) Cognitive Factors Limiting Selfcare Function Cognitive Ability Level of Alertness Alert Patient Orientation Name Month Year Place Situation Attention Span Ability Capable of Focused Attention Capable of Sustained Attention Ability to Follow Commands Able to Follow One Step Commands Safety Awareness No Deficits Noted Cognitive Comments Cognitive Assessment Comments Pt alert and oriented; able to give good history. Pt appears to be at cognitive baseline. OT- Vision and Hearing OT- Hearing Assessment OT- Hearing Assessment WFL OT- Vision Assessment Visual Acuity WFL Glasses All The Time Visual Attentiveness WFL Visual [place] WFL Diplopia Absent Vision Assessment Comments Pt denies any vision changes since admit. No new vision deficits identified. Pt wears trifocals. M7 OT- IP Mobility and Balance Start: 04/20/18 15:29 Freq: Status: Active Protocol: Document 04/20/18 15:08 PJM (Rec: 04/20/18 15:59 PJ [email or web address]) OT- Bed Mobility Assessment Rolling Type of Rolling Roll to Right Level of Assistance Standby Assistance Supine to Sit Supine to Sit Assist Minimal Assistance Scooting Scooting to Edge of Bed Standby Assistance OT-Transfer Assessment Sit to and From Stand Sit to and from Stand Contact Guard Assistance Transfers Transfer Ability Standby Assistance Technique Transfer Destination Chair Toilet Transfer Technique Stand Step Pivot Devices Transfer Assistive Devices Gait Belt Front Wheeled Walker OT- Gait Assessment Assistive Devices Assistive Device Gait Belt Front Wheeled Walker Comments Gait Ability Comments Pt able to walk 10 ft to bathroom and back with FWW with no loss of balance noted. Pt able to clear R foot and is aware of weakness in R ankle. OT- Balance Assessment Sitting Balance and Reactions Static Sitting Balance Ability Good Dynamic Sitting Balance Ability Fair Standing Balance and Reactions Static Standing Balance Ability Good Comments Other Balance Tests/Deviations/Treatment Pt had difficulty reaching : feet while seated in chair due to body habitus. M8 OT- IP Objective Assessments Start: 04/20/18 15:29 Freq: Status: Active Protocol: Document 04/20/18 15:08 PJM (Rec: 04/20/18 15:59 PJM [email or web address]) OT Gross Range of Motion Upper Extremity Range of Motion Assessment Within Functional Limits ROM Impairments RUE AROM slightly slower than LUE. 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 Pt's RUE/hand strength appears WFL for self care tasks, and this may be pt's baseline. LUE generally 4 to 4+/5 throughout. OT- Coordination Assessment Upper Extremity Finger to Nose Test Right UE Impaired Finger Tapping Test Right UE Impaired Comments Coordination Comments RUE YESSICA's mildly slower than LUE. R handwriting is ~90% legible but messier than usual per pt. Pt has had R hand incoordination since stroke in 2010 but uses R hand dominantly for all self care tasks. OT-Muscle Tone Assessment Muscle Tone WNL Yes OT Sensation Assessment Comments Summary Comments RUE sensation appears intact Edema Edema Absent M9 OT- IP Assessment and Plan Start: 04/20/18 15:29 Freq: Status: Active Protocol: Document 04/20/18 15:08 PJM (Rec: 04/20/18 15:59 PJM [email or web address]) OT Summary Assessment and Plan Potential Rehabilitation Potential Good Analytic Complexity at Evaluation Moderate Summary OT Impairments Pain Strength Coordination Functional Mobility Dressing Bathing Shower Transfers Assessment Summary Moderate complexity OT assessment completed due to pt 's complex neuro status with current migraine and fluctuating neuro deficits. Pt currently presents with mild light sensitivity, preferring dark room. Pt has mild R hand coordination deficits, decreased independence in bed mobility and functional mobility due to new R foot drop and decreased independence in lower body dressing. Showering to be assessed. Pt will benefit from OT services here to address the goals below. Note that pt lives alone with caregiver assist from 8am -4 pm 4 days/ week. She needs to be independent with functional mobility and basic self care to return home . If pt continues to improve, she may be able to return home with OT services vs SNF if funding can be arranged. Goals Dressing Goal Independent Shower Transfer Goal Independent OT-Other Goals Pt's handwriting to be 100% legible. Days to Meet Goals 3 Frequency of Treatment Frequency Of Treatment Once a Day Treatment Plan OT Treatment Plan ADL Training Functional Mobility Patient/Family Education Discharge Planning Discharge Recommendations OT Discharge Recommendations Home with 18/04 Assist Other Discharge Recommendations if she continues to improve vs SNF if funding can be arranged
--- NOTE | 2018-04-20 15:52 | ST.IPIE ---
Visit Care Team Role Provider Type Eliseo De Leon DO Emergency Provider Physician Specialty: Emergency Medicine Address: [address] [place] [address], [id number] Email: [email or web address] Fatimah Hernadez MD Admit Provider Physician Attending Provider Specialty: Internal Medicine Address: [address] [place] [address], [id number] Email: Past Medical History (Last Reviewed 04/19/18 @ 19:05 by Fatimah Hernadez MD) History of stroke (Acute Medical) Morbid obesity with BMI of 45.0-49.9, adult (Acute Medical) Type 2 diabetes mellitus (Acute Medical) ST IP Initial Evaulation Report STRATIGRAPHER Motor Speech Evaluation Start: 04/20/18 11:34 Freq: Status: Active Protocol: Document 04/20/18 15:41 TLC (Rec: 04/20/18 15:52 TLC [email or web address]) Motor Speech Evaluation Session Time Visit Start Time 15:15 Visit Stop Time 15:35 Total Visit Minutes 20 Setting Setting Acute Care Next Note Type Next Note Type Treatment Note Mental Status Mental Status Alert Responsive Cooperative Subjective Observations Subjective Bushra was sitting upright in chair in room. She agreed to participate in a speech and language evaluation. She was cooperative, oriented and a good historian. Oral Motor Lips Function WFL Observation at rest Left labial droop at rest, no droop upon labial retraction Tongue Function WFL Jaw Function WFL Soft Palate Function WFL Respiration/Phonation Tools Observations WFL Phonation Quality WNL Loudness WFL Oral Reading Steadiness Dysfluencies including repetitions of sounds, prolongations Conversation Steadiness Dysfluencies as stated above Diadochokinetic Rates P^ Quality Moderate Impairment T^ Quality Moderate Impairment K^ Quality Moderate Impairment P^T^K^ Quality Moderate Impairment Speech Intelligibility Conversation Severity WFL Awareness/Strategy Use Description Type of awareness/use Uses consistently Findings Assessment Details Assessment Bushra presents with dysfluencies which 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 She reports a history of these episodes of stuttering which accompany migraines; however, this episode has lasted over 24 hours which is longer than usual. She denies a history of stuttering as a child. 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 She does not show signs of dysarthria. She had moderate difficulty with diadochokinesis with the presence of groping and timing irregularities suggestive of apraxia of speech. She is cognitively at her basline; however, her moderate speech impairments have a negative effect on her interpersonal interactions. Prognosis Rehabilitation Potential Fair Recommendations Treatment Recommended Yes Therapy Recommendations Ongoing education of fluency enhancing strategies including slow rate and easy onset to improve speech and enhance interpersonal interactions while these symptoms persist. Short Term Goals Bushra will recall fluency enhancing techniques and demonstrate understanding of these when reading sentences aloud. Patient/Family Education Education Described results of evaluation Patient Needs More Info Other Education on slow rate, easy onset for increased fluency
[2018-04-20] MEDS: ATORVASTATIN 20 MG TABLET PO (20:47)
[2018-04-20] MEDS: TRAZODONE 50 MG TABLET PO (20:47)
--- NOTE | 2018-04-20 21:26 | RT ---
BREATH SOUNDS ARE MILDLY DECREASED IN BLL, OTHERWISE CLEAR. BRONCHODILATOR NOT NEEDED AT THIS TIME.
[2018-04-21] VITALS (11 sets, daily range): BP systolic 135–158; BP diastolic 65–91; PULSE 74–89; RESP 15–16; TEMP 36.4–37.1; O2SAT 92–98
[2018-04-21] MEDS: IBUPROFEN 400 MG TABLET 800 MG PO ×2 (06:27→16:11)
[2018-04-21] MEDS: ALBUTEROL HFA 60 PUFF/8 GM INH INH ×2 (08:25→17:50)
[2018-04-21] MEDS: SERTRALINE 50 MG TABLET 100 MG PO (09:16)
[2018-04-21] MEDS: GABAPENTIN 600 MG TABLET PO ×2 (09:16→14:11)
[2018-04-21] MEDS: FENOFIBRATE 48 MG TABLET PO (09:16)
[2018-04-21] MEDS: buPROPion SR 150 MG TAB 300 MG PO (09:17)
[2018-04-21] MEDS: CLOPIDOGREL 75 MG TABLET PO (09:17)
[2018-04-21] MEDS: METFORMIN HCL 500 MG TABLET PO ×2 (09:17→20:16)
--- NOTE | 2018-04-21 09:17 | ST.IPTN ---
VITAMIN MANAGER Treatment Note VITAMIN MANAGER Treatment Note Start: 04/21/18 09:06 Freq: Status: Active Protocol: Document 04/21/18 09:06 TLC (Rec: 04/21/18 09:16 TLC [id number]) Speech Pathology Treatment Note Session Time Visit Start Time 08:45 Visit Stop Time 09:00 Total Visit Minutes 15 Setting Treatment Setting Acute Care Visit Type Note Type Treatment Note Subjective Observations/Patient Presentation Bushra was sitting upright in the chair in her room. She reported some improvement in her symptoms and agreed to participate in therapy. Chief Complaint(s) Speech Patient Knowledge/Awareness of VITAMIN MANAGER Role Good in Treatment Objective Short Term Goals Bushra will recall fluency enhancing techniques and demonstrate understanding of these when reading sentences aloud. - goal met Treatment Activities Reviewed strategies for improving speech fluency including slow rate, relaxed posture and use of easy onset. Patient recalled strategies from yesterday and was able to demonstrate understanding. We also reviewed strategies for word finding and handouts were provided on both fluency and word finding strategies. Patient expressed thanks and stated these would be helpful. Assessment Patient Response to Treatment Good Impairments Identified Fluency of Speech Progress Towards Goals Good Progress Assessment of Improvement No objective fluency measures were taken; however, Bushra's speech fluency appears to have improved since yesterday with a noticeable decrease in episodes of dysfluency and all dysfluencies today consisting of initial word repetition vs . a variety or dysfluencies observed yesterday. She stated she feels like she is getting back to normal, but it 's taking longer than usual. Diadochokinesis revealed improvements in planning and coordination for speech. Patient/Caregiver Understanding Good Plan Comment Patient will most likely d/c home today. No further ST needed. Visit Care Team Role Provider Type Eliseo De Leon DO Emergency Provider Physician Address: [address] [place] [address], [phone] Fatimah Hernadez MD Admit Provider Physician Attending Provider Address: [address] [place] [address], [phone]
--- NOTE | 2018-04-21 09:20 | PT.IPTN ---
Physical Therapy Treatment Note M2 PT-IP Current Condition Start: 04/20/18 12:54 Freq: NEEDED Status: Active Protocol: Document 04/21/18 09:20 TMS (Rec: 04/21/18 15:34 TMS [email or web address]) Physical Therapy Current Condition Current Condition Evaluation Date 04/20/18 Treatment Diagnosis R sided weakness, ROBERTS Onset Date 04/19/18 Precautions Other Precautions fall risk M3 PT-IP Subjective Start: 04/20/18 12:54 Freq: NEEDED Status: Active Protocol: Document 04/21/18 09:20 TMS (Rec: 04/21/18 15:34 TMS [email or web address]) Subjective Physical Therapy Visit Type Type Treatment Note Visit Start Time 09:00 Visit Stop Time 09:20 Total Visit Minutes 20 Number of C APPLICATION DEVELOPER Visits 1 Physical Therapy Visit Comments Patient Comments Sitting in chair, states she's been sitting for 2 1/2 hours, ready to go back to bed. Therapy Pain Assessment Pain When Pain Assessed During Mobility Pain Present Pain Present Pain Reported Location Head Intensity 5 Scale Used Numeric (1 - 10) M4 PT-IP Mobility and Gait Start: 04/20/18 12:54 Freq: NEEDED Status: Active Protocol: Document 04/21/18 09:20 TMS (Rec: 04/21/18 15:34 TMS [email or web address]) PT-Bed Mobility Assessment Sit to Supine Sit to Supine Standby Assistance Scooting Scooting to Edge of Bed Standby Assistance PT-Transfer Assessment Sit to and From Stand Sit to and from Stand Contact Guard Assistance Equipment Transfer Assistive Device Gait Belt Front Wheeled Walker Gait Assessment Gait Gait Assistance Required: Contact Guard Assist Distance (Feet) (feet) 60 Able to Maintain Weight Bearing Status Yes During Gait Assistive Devices Assistive Device Gait Belt Front Wheeled Walker Gait Deviations General Gait Pattern Decreased Stride Length Decreased Feet Clearance Factors Limiting Gait Function Factors Limiting Gait Function Decreased Strength Comments Gait Comments Cues for bigger step with left foot with swing through, fatigued after gait. M5 PT-IP Objective Assessments Start: 04/20/18 12:54 Freq: NEEDED Status: Active Protocol: Document 04/20/18 12:00 MDD (Rec: 04/20/18 13:21 MDD [id number]) Orientation Orientation/Cognition Level of Alertness Alert Orientation Name Age Birthday Month Date Year Day of Week Place Situation Safety Awareness Understands Safety Issues Memory Description No Deficits Noted Comments Intermittently stutters, but able to report history and respond to questions appropriately. Gross Range of Motion Upper Extremity ROM Assessment Within Functional Limits Lower Extremity ROM Assessment Right Impaired Strength Upper Extremity Strength Assessment Right Impaired Hand R resident care technician strength appears slightly less than L (she is R hand dominant). Lower Extremity Strength Assessment Right Impaired Hip 3+/5 hip flexion (R) Knee 4/5 R knee extension, flexion Ankle 2/5 dorsiflexion, 3+/5 plantarflexion, 2/5 eversion Sensation Assessment Sensation Gross Sensation WNL Light Touch Absent Proprioception (Position) Intact Sensation Description Paresthesia Comments Sensation Comments L4, L5 dermatomes on R with slight decreased light touch sensation M6 PT-IP Treatment Start: 04/20/18 12:54 Freq: NEEDED Status: Active Protocol: Document 04/20/18 12:00 MDD (Rec: 04/20/18 13:21 MDD [id number]) Physical Therapy Treatment Education Education Provided Safety Other Treatments Other Treatment Performed educated patient to work on ankle pumps when resting M7 PT-IP Assessment and Plan Start: 04/20/18 12:54 Freq: NEEDED Status: Active Protocol: Document 04/21/18 09:20 TMS (Rec: 04/21/18 15:34 TMS [email or web address]) PT Summary Assessment and Plan Summary Impairments Pain Strength Transfers Gait Activity Tolerance Assessment Summary Poor endurance with gait, fatigued quickly.Takes very small steps with right but able to clear foot with gait. Cues to relax shoulders. Also sitting active ankle pumps, TKE, marching. Frequency of Treatment Frequency Of Treatment Once a Day Treatment Plan Physical Therapy Treatment Plan Bed Mobility Training Gait Training Therapeutic Exercise Other Recommendations and Next Treatment Continue with bed mobility, Focus gait training, LE strengthening. Recommendations To Nursing Amount of Assist Needed 1 Person Assist Discharge Recommendations PT Discharge Recommendations SNF Rehab
--- NOTE | 2018-04-21 10:52 | P.PN_ITS ---
Subjective Date Patient Seen: 04/21/18 Time Patient Seen: 10:40 Interval history: Patient states her headache is worse today. 6/10 on a pain scale. Describes it as her typical post stroke migraine headache but with slower resolution. She describes her speech as improved since yesterday and she is not stuttering today. Exam Vital Signs (past 8 hours): - 04/21/18 04:00 04/21/18 08:00 Temperature 98.3 F 98.1 F Pulse Rate 86 74 Respiratory Rate 16 15 Blood Pressure 149/82 H 139/69 H Pulse Oximetry 94 92 Oxygen Delivery Method Room Air Oxygen Flow Rate 0 Const General: cooperative and comfortable Nutritional Appearance: obese Orientation: alert, awake and oriented x3 HENMT Head: normal to inspection, normocephalic and atraumatic Eyes General: appearance normal, both eyes and all related structures Pupils: PERRL Neck Neck: normal visual inspection, trachea midline and supple Chest Chest: normal inspection of the chest Resp Effort & Inspection: normal respiratory effort Auscultation: clear to auscultation bilaterally Cardio Rate: regular rate Rhythm: regular rhythm Heart Sounds: S1 normal and S2 normal Pulses: brachial pulses present, radial pulses present and popliteal pulses present Other: No rubs clicks or murmurs heard GI Inspection: large pannus and obesity Palpation: soft Auscultation: normal bowel sounds Other: Nontender Skin General: no rashes or lesions noted, dry skin and warm Neuro General: alert, awake and oriented x3 Cognition: normal cognition Speech: other (Slow speech, no stuttering, no slurring of words.) Other: Right hand and upper arm strength and right lower leg strength decreased from left. Also has slight decreased sensitivity to light touch on her right thigh. After 15 sec there is minimal downward drift with her right hand and her left hand internally rotates. Extrem General: capillary refill normal, no pedal edema and no calf tenderness Psych Appearance: grossly normal Mental Status: mental status grossly normal Mood: congruent mood Affect: normal affect Attitude: cooperative Thought Process: normal Thought Content: normal Judgment: judgment good Objective Labs Result Diagrams: 04/19/18 11:26 Assessment & Plan Plan: Assessment/Plan Narrative: 1. Stuttered speech, stuttering and right leg weakness: Most likely from her atypical migraine headache. MRI was normal. She still having a lot of weakness primarily in her right leg, however that seems to be worse than usual. She thinks this is due to her migraines. We will have physical therapy continue working with her. She was only able to ambulate approximately 20 ft today before becoming tired and weak and having to return to bed. At home she describes herself as walking up to a quarter of a mile a day with her walker. She does have a care provider who comes in 4 days a week for 8 hr a day, and her daughter lives across the street from her, but the patient feels unsafe to go home at this time due to her right lower leg extremity weakness and her headaches. Will add [place] for headache control. 2. Hypertension: Continue outpatient medication regimen. Aiming for systolic blood pressure around 150-160 to ensure perfusion. 3. Hyperlipidemia: She is on low-dose fenofibrate. We will check fasting lipid panel in the morning. We will start atorvastatin based on the recent guidelines of moderate to high-intensity statin treatment for patients with type 2 diabetes. 4. Type 2 diabetes: Her recent hemoglobin A1c was in good range. We will continue metformin 500 mg twice a day. We will check her fingerstick glucose readings. 5. Morbid obesity, BMI 45.9. She needs outpatient lifestyle modifications and weight loss. 6. Disposition: Probable discharge to home this weekend. She will most likely need home health PT OT and speech. Quality VTE Deep Vein Thrombosis/Pulmonary Embolism Present on Admission: No
--- NOTE | 2018-04-21 11:25 | PC.NURSE ---
Pt worked with James and ambulated in the halls and her room. She will be a 1 pa to use the bathroom. Resting in bed comfortably now.
[2018-04-21] MEDS: HYDROCODONE/ACET 5/325 TABLET 1 TAB PO ×2 (11:36→20:14)
[2018-04-21] MEDS: CALCIUM CARBONATE 600 MG TABLET PO (11:37)
[2018-04-21] MEDS: MAGNESIUM OXIDE 400 MG TABLET PO (11:37)
--- NOTE | 2018-04-21 12:32 | OT.IP.TRT ---
Occupational Therapy Treatment Note M2 OT-IP Current Condition Start: 04/20/18 15:29 Freq: Status: Active Protocol: Document 04/20/18 15:08 PJM (Rec: 04/20/18 15:59 PJM [id number]) Occupational Therapy Current Condition Current Condition Evaluation Date 04/20/18 Treatment Diagnosis R hand incoordination, decreased functional mobility due to TIA/migraine Diagnosis Onset Date 04/19/18 Post Operative Precautions Other Precautions fall risk M3 OT- IP Subjective and Pain Start: 04/20/18 15:29 Freq: Status: Active Protocol: Document 04/21/18 12:41 PJM (Rec: 04/21/18 12:53 PJM [id number]) OT- Subjective Occupational Therapy Visit Type Type Treatment Note Visit Start Time 12:00 Visit Stop Time 12:32 Total Visit Minutes 32 Notes Pt reports she ahs now received different pain medication for persistent headache. Occupational Therapy Visit Comments Patient Comments The medicine is starting to help my headache. Patient/Caregiver Goals to go home when headache better OT Pain Assessment Pain When Pain Assessed After Treatment Pain Present Pain Present Pain Reported Location Head Intensity 4 Scale Used Numeric (1 - 10) Description Aching M4 OT- IP ADL's Start: 04/20/18 15:29 Freq: Status: Active Protocol: Document 04/21/18 12:41 PJM (Rec: 04/21/18 12:53 PJM [id number]) OT ETL-Gwai-Qwrkhyb General Evaluation Self-Feeding Ability Independent Comments OT Self-Feeding Comments pt independent opening containers and making sandwich seated in chair with good R hand dexterity OT ADL-Grooming General Evaluation Grooming Ability Standby Assistance Comments OT Grooming Comments standing at sink, pt reports R LE tired easily when standing at sink this AM OT ADL-Oral Care General Eval Oral Care Ability Standby Assistance Devices Oral Care Devices Toothbrush Comments Oral Care Comments standing at sink OT ADL-Dressing General Eval Lower Body Dressing Ability Minimal Assistance Areas Needing Assistance Underpants/Brief Assistive Devices Dressing Assistive Devices Straightening Press Operator Helper Comments OT Dressing Comments pt usually uses cable rigger and sock aid at home for lower body dressing OT ADL-Toileting General Evaluation Toileting Ability Independent OT ADL-Bathing Bathing Type Bathing Type Shower General Evaluation Bathing Ability Standby Assistance Devices Bathing Equipment Hand Held Shower Sprayer Shower Chair with Arms Grab Bars Comments OT Bathing Comments Pt reports her caregiver is always present when she showers at home using tub transfer bench ion tub shower combo with grab bars and hand held shower hose. Caregiver can assist PRN at home. M7 OT- IP Mobility and Balance Freq: Status: Active Protocol: Document 04/21/18 12:41 PJM (Rec: 04/21/18 12:53 PJM [id number]) OT-Transfer Assessment Sit to and From Stand Sit to and from Stand Standby Assistance Transfers Transfer Ability Standby Assistance Technique Transfer Destination Chair Shower Stall Devices Transfer Assistive Devices Front Wheeled Walker OT- Gait Assessment Gait Distance (Feet) (feet) 20 Comments Gait Ability Comments Pt uses 4WW at home. OT- Balance Assessment Sitting Balance and Reactions Static Sitting Balance Ability Good Dynamic Sitting Balance Ability Good Standing Balance and Reactions Static Standing Balance Ability Good Dynamic Standing Balance Ability Good M9 OT- IP Assessment and Plan Freq: Status: Active Protocol: Document 04/21/18 12:41 PJM (Rec: 04/21/18 12:53 PJM [id number]) OT Summary Assessment and Plan Potential Rehabilitation Potential Good Summary OT Impairments Pain Progress Towards Goals Slow Progress due to Medical Issues Slow Progress due to Activity Tolerance Assessment Summary Persistent headache continues to limit activity tolerance, but improving with new medication added this AM. Pt appears to close to baseline level of function with RUE/ hand strength/dexterity and most self care activities. Recommend 1 additional OT visit tomorrow to practice dressing with cable rigger and sock aid as per pt's home set up. Anticipate pt will be able to return home with residential leasing manager assist 8 hrs/day, 4 days/week. Pt's dtr comes over to check on pt 3-4x day and she has [employer]. Goals Days to Meet Goals 2 Frequency of Treatment Frequency Of Treatment Once a Day Treatment Plan OT Treatment Plan ADL Training Functional Mobility Patient/Family Education Discharge Planning Other Treatment Recommendations and Next LB dressing with cable rigger, sock Treatment Focus aid Discharge Recommendations OT Discharge Recommendations Home with Assistance Other Discharge Recommendations if she continues to improve Home Equipment Needs none
[2018-04-21 16:29] LABS: Vitamin D 25 Hydroxy (D3) 17.7 ng/mL (30.0-100.0)
--- NOTE | 2018-04-21 16:39 | PC.NURSE ---
Pt awake and alert in bed. Reports headache is improving, but still present 02/02. Ibuprofen given as per emar. Pt states desires up to recliner for dinner. Pt is able to mobilize self with walker from bed to recliner. Ice to back of neck as per pt request. Room is darkened for pt's comfort. Call light available. Pt demonstrates minimal weakness right staffing rn versus left. Is able to lift BL LE's off of bed with greatest difficulty RLE. Pt reports RLE is not yet to baseline strength. Will continue to monitor. Pt agreeable to call for staff assistance when needing or desiring out of bed.
[2018-04-21] MEDS: TRAZODONE 50 MG TABLET PO (20:15)
[2018-04-21] MEDS: ATORVASTATIN 20 MG TABLET PO (20:15)
[2018-04-21] MEDS: GABAPENTIN 300 MG CAPSULE PO (20:16)
[2018-04-21] MEDS: SODIUM CHLORIDE 0.9% FLUSH 10 ML IV (20:20)
--- NOTE | 2018-04-21 20:25 | PC.NURSE ---
Pt denies any visual changes, but admits to continuing headache. Ice pack to back of neck. Vicodin for pain. Pt denies any visual changes. Is able to ambulate to bathroom with standby assistance only utilizing walker. Appropriate mentation and conversation. States is ready for bed. Bed alarm in place as pt has received sedating meds.
--- NOTE | 2018-04-21 21:05 | RT ---
BRONCHODILATOR NOT NEEED AT THIS TIME.
[2018-04-22] MEDS: IBUPROFEN 400 MG TABLET 800 MG PO ×2 (00:14→08:41)
[2018-04-22 00:18] VITALS: O2SAT 95
--- NOTE | 2018-04-22 00:46 | PC.NURSE ---
Addendum entered by Kathy Chávez R.N. 04/22/18 04:49: Medicated at 0356 for headache pain, used Vicodan, pain rated as 6/10, no change in neuro status. She was able to ambulate to the bathroom with 1 person assist. Original Note: Shift summary [id number] Bushra was awake at 0015, pleasant although headache persists, unaffected by vicodan, now rated as 4/10. Neuro status unchanged, right lower extremity weakness and some speech dysfluency ( stuttering ). Ibuprofen 800 mg given PO at 0030.
[2018-04-22] MEDS: HYDROCODONE/ACET 5/325 TABLET 1 TAB PO ×2 (03:56→11:19)
[2018-04-22 04:00] VITALS: BP 134/70; PULSE 83; RESP 12; O2SAT 94
[2018-04-22 04:12] VITALS: BP 134/70; RESP 86; TEMP 36.4; O2SAT 94
[2018-04-22 06:29] LABS: Add Manual Diff / Slide Review NO; Basophils Percent Auto 0.9 % (0-2); Eosinophils Percent Auto 4.2 % (2-4); Hematocrit 38.9 % (36-46); Hemoglobin 12.7 g/dL (12.0-16.0); Lymphocytes Percent Auto 32.4 % (25-40); Mean Corpuscular HGB Conc 32.7 % (30-36); Mean Corpuscular Volume 88.6 fL (80-100); Monocytes Percent Auto 10.3 % (3-14); Neutrophils Absolute Auto 3000 /uL (3000-5900); Neutrophils Percent Auto 52.2 % (50-75); Platelet Count 276 X10^3/uL (150-400); Red Blood Cell Count 4.39 X10^6/uL (4.0-5.2); Red Cell Distribution Width 15.1 % (11.6-14.8); White Blood Cell Count 5.8 X10^3/uL (4.5-11.0)
[2018-04-22 06:37] LABS: Blood Urea Nitrogen 24 mg/dL (7-17); Calcium 9.5 mg/dL (8.4-10.2); Carbon Dioxide 29 mmol/L (22-32); Chloride 104 mmol/L (98-107); Estimated Glomerular Filt Rate 55.6 mL/min (>60); Glucose 104 mg/dL (80-110); HEMOLYSIS < 15 (0-50); Potassium 4.2 mmol/L (3.4-5.1); Sodium 139 mmol/L (137-145)
[2018-04-22 07:30] VITALS: BP 142/91; PULSE 83; RESP 14; TEMP 36.4; O2SAT 93
[2018-04-22 07:57] VITALS: O2SAT 97
[2018-04-22] MEDS: buPROPion SR 150 MG TAB 300 MG PO (08:44)
[2018-04-22] MEDS: CLOPIDOGREL 75 MG TABLET PO (08:45)
[2018-04-22] MEDS: CALCIUM CARBONATE 600 MG TABLET PO (08:45)
[2018-04-22] MEDS: FENOFIBRATE 48 MG TABLET PO (08:46)
[2018-04-22] MEDS: GABAPENTIN 300 MG CAPSULE PO (08:46)
[2018-04-22] MEDS: METFORMIN HCL 500 MG TABLET PO (08:47)
[2018-04-22] MEDS: MAGNESIUM OXIDE 400 MG TABLET PO (08:47)
[2018-04-22] MEDS: SERTRALINE 50 MG TABLET 100 MG PO (08:47)
[2018-04-22] MEDS: SODIUM CHLORIDE 0.9% FLUSH 10 ML IV (08:50)
--- NOTE | 2018-04-22 10:45 | PM.DS.1 ---
History of Present Illness Chief complaint: headache Narrative: 67-year-old female, under the primary care of Dr. Man Melara who was brought to the [facility] Emergency room earlier today with concern of stuttered speech and right-sided weakness. She has been having migraine headache when she has headache and stuttered speech and some right leg weakness. She woke up at 3 o'clock in the morning with headache. She also has stuttered speech like she usually does. This time the right leg weakness seem to be worse. She also has numbness on the right lateral leg. She denies weakness on the right upper extremity. She was having difficulty ambulating at home. She was not able to stand for more than 5 min due to the leg weakness. She was subsequently brought to the emergency room. CT head and neck angiogram did not reveal acute intracranial process. There was stable appearance of previous stroke. There was no hemodynamics significant stenosis or vascular occlusion. She was admitted to the medicine floor for possible TIA versus CVA. Discharge Providers Date of admission: 04/19/18 16:09 Consults: 04/19/18 19:15 Consult to Physical Therapy Evaluate & Treat Comment: Physician Instructions: Evaluate and Treat 04/20/18 10:12 Consult to Speech Therapy Evaluate & Treat Comment: Physician Instructions: Evaluate and treat 04/20/18 12:33 Consult to Occupational Therapy Evaluate & Treat Comment: Physician Instructions: Evaluate and treat Discharge provider: Fatimah Hernadez MD Discharge Date: 04/22/18 Summary Discharge Diagnosis: 1. Post stroke migraine 2. Hypertension 3. Hyperlipidemia 4. Type 2 diabetes 5. Morbid obesity, BMI 45.9 Hospital Course: Patient was treated conservatively. MRI of the brain did not reveal new CVA. The symptom that she was having is most likely from her previously diagnosed post CVA migraine headache. Patient has been having persistent high headache with severity ranging from 5-6 out of 10. We are going to give her IV Toradol and Dilaudid for abortive treatment. She also received Vicodin while she was in the hospital for headache. She will follow up with Dr. Darryl Bay as outpatient for management of her migraine headache. Status at Discharge Cognitive/behavioral status at discharge: Alert and oriented x3 Functional status at discharge: uses cane/walker Overall status at discharge: patient is progressing back to baseline Time Spent with Patient Greater than 30 minutes Exam Vital Signs (past 8 hours): - 04/22/18 04:00 04/22/18 04:12 04/22/18 07:30 Temperature 97.5 F L 97.5 F L Pulse Rate 83 83 Respiratory Rate 12 86 H 14 Blood Pressure 134/70 H 134/70 H 142/91 H Pulse Oximetry 94 94 93 04/22/18 07:57 Temperature Pulse Rate Respiratory Rate Blood Pressure Pulse Oximetry 97 Oxygen Delivery Method Room Air Oxygen Flow Rate 0 Objective Imaging MRI - head: Radiologist's impression: 1. No acute intracranial abnormalities. 2. 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 3. Cerebral volume loss and chronic microvascular ischemic changes. CT scan - head: Radiologist's impression: 1. No acute intracranial process. Stable appearance of previous areas of ischemia as noted above. 2. No areas of hemodynamically significant stenosis, vascular occlusion or aneurysmal dilation within the anterior or posterior circulation. 3. No areas of hemodynamically significant stenosis, vascular occlusion or aneurysmal dilation within the neck vasculature. Any quantitative measurements of stenosis were performed using NASCET criteria. Labs Result Diagrams: 04/22/18 06:03 04/22/18 06:03 Labs: Laboratory Results - last 24 hr 04/21/18 04/22/18 04/22/18 14:15 06:03 06:03 WBC 5.8 RBC 4.39 Hgb 12.7 Hct 38.9 MCV 88.6 MCH 29.0 MCHC 32.7 RDW 15.1 H Plt Count 276 Neut % (Auto) 52.2 Lymph % (Auto) 32.4 Wilson % (Auto) 10.3 Eos % (Auto) 4.2 H Baso % (Auto) 0.9 Neut # (Auto) 3000 Sodium 139 Potassium 4.2 Chloride 104 Carbon Dioxide 29 BUN 24 H Creatinine 1.00 Estimated GFR 55.6 L BUN/Creatinine Ratio 24.0 H Glucose 104 Calcium 9.5 25-OH Vitamin D Total 17.7 L Discharge Plan Discharge Plan Discharge Problem: Stroke Patient Disposition: Home Health Service Discharge comment: Discharge home with home PT OT Provider Discharge Instructions Diet: Low-cholesterol Discharge Data Attending Provider: Fatimah Hernadez Admit Date/Time: 04/19/18 16:09 Quality VTE Deep Vein Thrombosis/Pulmonary Embolism Present on Admission: No
[2018-04-22] MEDS: KETOROLAC 30 MG/ML VIAL IV (11:17)
--- NOTE | 2018-04-22 12:25 | CM.DPC ---
DCP Final: Met w/ pt regarding HH services. Is in agreement for PT and OT. States through her ERIKA will have help w/ ADL's. Does not have a preference for agency. Contacted [facility]- spoke w/ Myesha. Plan: fax'd therapy notes as well as H/P, DC summary, face to face and DC meds to [facility] @ [phone]. Confirmation received. Received a c/b confirming that consult was accepted. Informed pt of this and a contact number for [facility] if she does not hear from them. No further concerns voiced at discharge. Yanelis Frey, RN
[2018-04-22] MEDS: HYDROMORPHONE 2 MG INJ 1 MG IV (13:44)
--- NOTE | 2018-04-22 14:12 | PC.NURSE ---
Day shift: Left unit at approx 1400. Paperwork signed and all questions answered. Pt has all personal belongings. She is being driven by her daughter in private vehicle.
== END 2018-04-22 14:14 | disposition home health service (06) ==
LOC: ED 12:49 → AC 16:27
PROVIDERS: Nurse Practitioner Acute Care; Admitting Provider Internal Medicine; Emergency Provider Emergency Medicine; Visit Provider Internal Medicine
DX: G43.809 Other migraine, not intractable, without status migrainosus (principal); R51 Headache; E66.2 Morbid (severe) obesity with alveolar hypoventilation; Z68.42 Body mass index [BMI] 45.0-49.9, adult; E11.9 Type 2 diabetes mellitus without complications; Z79.84 Long term (current) use of oral hypoglycemic drugs; E78.5 Hyperlipidemia, unspecified; I10 Essential (primary) hypertension; E86.0 Dehydration; Z86.73 Personal history of transient ischemic attack (TIA), and cerebral infarction without residual deficits
CPT/HCPCS: 36415; 70450; 70496; 70498; 70551; 80048; 80061; 80305; 81003; 81015; 82306; 82962; 85025; 85610; 85730; 87077; 87086; 92507; 92522; 93005; 94640; 94760; 94762; 96361; 96374; 96375; 97116; 97161; 97166; 97535; 99285; G0378; J0780; J1170; J1885; J2930; Q9967

== ENCOUNTER 2018-05-21 16:45 | Inpatient (IN) | payer MEDICARE, MEDICAID, SELFPAY ==
[2018-04-19 16:55] VITALS: BMI 45.8
[2018-05-21] VITALS (12 sets, daily range): BP systolic 89–135; BP diastolic 42–87; PULSE 86–98; RESP 18–28; TEMP 36.5–36.7; O2SAT 91–100; BMI 48.3
--- NOTE | 2018-05-21 17:14 | ED_ITS ---
HPI - SOB/Dyspnea <DO Sydni Sellers Last Filed: 06/02/18 07:06> General Chief Complaint: Shortness of Breath/Dyspnea Stated Complaint: SOB Time Seen by Provider: 05/21/18 16:55 Source: patient Mode of arrival: ambulatory Limitations: no limitations History of Present Illness 68-year-old female here for evaluation of shortness of breath. 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 She states that on Tuesday but her physical therapist came over she states that he took her heart rate and she was in the 130s. Remained in the 130s. She was asymptomatic from this. She states then that yesterday she started to have shortness of breath. She states that is not associated with exertion. She states that she feels like she just cannot take her breath. Did have left-sided upper chest pain. Not radiating to her back. No nausea vomiting. Does have some lower extremity swelling which she states is probably not new. She has never had a blood clot before. She is on Plavix. No other anticoagulation. Her chest pain is not worse with palpation or movement or deep inspiration. Related Data Home Medications Medication Instructions Recorded Confirmed clopidogrel [Plavix] 75 mg PO DAILY #0 06/15/17 05/21/18 fenofibrate 54 mg PO DAILY #0 06/15/17 05/21/18 sertraline [Zoloft] 100 mg PO QDAY #0 06/27/17 05/21/18 metformin 500 mg PO BID 02/02/18 05/21/18 bupropion HCl 2 tab PO DAILY 04/19/18 05/21/18 gabapentin 600 mg PO TID 04/19/18 05/21/18 ibuprofen 1 tab PO TID PRN 04/19/18 05/21/18 trazodone 50 - 100 mg PO BEDTIME 04/19/18 05/21/18 calcium carbonate [Calcium 500] 2,000 mg PO QID 05/21/18 05/21/18 magnesium 600 mg PO DAILY 05/21/18 05/21/18 Allergies Allergy/AdvReac Type Severity Reaction Status Date / Time vancomycin Allergy Intermediate Flushing Verified 04/19/18 15:17 Review of Systems <DO Sydni Sellers Filed: 06/02/18 07:06> Constitutional Denies fatigue and Denies fever(s) ENT Ears, Nose, Mouth, and Throat: Denies vertigo and Denies dizziness Cardiovascular Reports chest pain, Denies syncope, Reports rapid heart rate, Reports pedal edema, Denies lightheadedness, Denies palpitations and Reports dyspnea Respiratory Denies cough, Reports dyspnea and Denies wheezing Gastrointestinal Gastrointestinal: Denies abdominal pain, Denies constipation, Denies nausea and Denies vomiting Genitourinary Denies dysuria Musculoskeletal Denies myalgias and Denies arthralgias Integumentary/Breasts Denies lesions and Denies rash Neurologic Denies confusion, Denies vertigo, Denies dizziness and Denies syncope Psychiatric Denies confusion Endocrine Denies fatigue and Denies palpitations Hematologic/Lymphatic Denies easy bleeding and Denies easy bruising Allergic/Immunologic Denies wheezing Exam <Man Read, DO - Last Filed: 06/02/18 07:06> Initial Vital Signs Initial Vital Signs: Vital Signs Temperature 98.0 F 05/21/18 16:49 Pulse Rate 98 H 05/21/18 16:49 Respiratory Rate 25 H 05/21/18 16:49 Blood Pressure 127/64 H 05/21/18 16:49 Pulse Oximetry 94 05/21/18 16:49 Const General: cooperative, comfortable, well developed, well groomed and No acute distress Orientation: alert, awake and oriented x3 [facility] Head: normal to inspection and normocephalic Resp Effort & Inspection: not labored, no respiratory distress, no retractions, no stridor and tachypneic Auscultation: clear to auscultation bilaterally Cardio Rate: regular rate Rhythm: regular rhythm Pulses: radial pulses present GI Inspection: non-distended Palpation: soft, No firm and No tender Skin Lesions: no lesions Rashes: no rashes Neuro General: alert, awake and oriented x3 Cognition: normal cognition Speech: speech normal Gait: normal gait Extrem General: no pedal edema, No calf tenderness and edema Psych Appearance: grossly normal and well kempt <Eliseo De Leon, DO - Last Filed: 05/21/18 21:46> Initial Vital Signs Initial Vital Signs: Vital Signs Temperature 98.0 F 05/21/18 16:49 Pulse Rate 98 H 05/21/18 16:49 Respiratory Rate 25 H 05/21/18 16:49 Blood Pressure 127/64 H 05/21/18 16:49 Pulse Oximetry 94 05/21/18 16:49 Course <Man Read DO - Last Filed: 06/02/18 07:06> Orders Ordered: Discontinued Medications Acetaminophen (Tylenol) 650 mg PO Q6HR PRN PRN Reason: As Needed for Fever/Mild Pain Last Admin: 05/22/18 20:41 Dose: 650 mg Alprazolam (Xanax) 0.5 mg PO Q6H PRN PRN Reason: Anxiety Last Admin: 05/22/18 21:32 Dose: 0.5 mg Aspirin (Aspirin Chew) 324 mg PO NOW ONE Stop: 05/21/18 17:16 Last Admin: 05/21/18 17:24 Dose: 324 mg Bisacodyl (Dulcolax) 10 mg IN DAILY PRN PRN Reason: Constipation Bupropion HCl (Wellbutrin Sr) 300 mg PO DAILY [facility] Last Admin: 05/23/18 09:21 Dose: 300 mg Admin: 05/22/18 08:39 Dose: 300 mg Calcium Carbonate (Tums) 2,000 mg PO QID [facility] Last Admin: 05/23/18 13:11 Dose: 2,000 mg Admin: 05/23/18 09:22 Dose: 2,000 mg Admin: 05/22/18 20:41 Dose: 2,000 mg Admin: 05/22/18 17:10 Dose: 2,000 mg Admin: 05/22/18 13:26 Dose: 2,000 mg Admin: 05/22/18 08:39 Dose: 2,000 mg Clopidogrel Bisulfate (Plavix) 75 mg PO DAILY [facility] Last Admin: 05/23/18 09:23 Dose: 75 mg Admin: 05/22/18 08:39 Dose: 75 mg Enoxaparin Sodium (Lovenox) 40 mg SUBCUT DAILY [facility] Last Admin: 05/23/18 09:22 Dose: 40 mg Admin: 05/22/18 08:39 Dose: 40 mg Fenofibrate (Fenofibrate) 48 mg PO DAILY [facility] Last Admin: 05/23/18 09:23 Dose: 48 mg Admin: 05/22/18 08:39 Dose: 48 mg Gabapentin (Neurontin) 600 mg PO TID [facility] Last Admin: 05/22/18 11:47 Dose: Not Given Gabapentin (Neurontin) 600 mg PO TID PRN PRN Reason: Pain, Mild (1-3) Last Admin: 05/22/18 15:47 Dose: 600 mg Sodium Chloride (Normal Saline 0.9%) 1,000 mls @ 500 mls/hr IV BOLUS ONE Stop: 05/21/18 19:14 Last Infusion: 05/21/18 19:27 Dose: 0 mls/hr Infusion: 05/21/18 17:49 Dose: 1,000 mls/hr Admin: 05/21/18 17:24 Dose: 500 mls/hr Ketorolac Tromethamine (Toradol) 30 mg IV Q6HR DANN Stop: 05/28/18 12:32 Last Admin: 05/23/18 13:10 Dose: 30 mg Lorazepam (Ativan) 1 mg PO NOW ONE Stop: 05/22/18 21:54 Last Admin: 05/22/18 22:07 Dose: 1 mg Metoprolol Tartrate (Lopressor) 25 mg PO NOW ONE Stop: 05/22/18 21:49 Last Admin: 05/22/18 22:05 Dose: 25 mg Morphine Sulfate (Morphine) 2 mg IV Q4HR PRN PRN Reason: Pain, Moderate (4-6) Last Admin: 05/22/18 20:40 Dose: 2 mg Admin: 05/22/18 15:47 Dose: 2 mg Admin: 05/22/18 03:27 Dose: 2 mg Admin: 05/21/18 23:03 Dose: 2 mg Morphine Sulfate (Morphine) 2 mg IV Q2HR PRN PRN Reason: Pain, Moderate (4-6) Last Admin: 05/23/18 13:34 Dose: 2 mg Admin: 05/23/18 09:35 Dose: 2 mg Admin: 05/23/18 05:42 Dose: 2 mg Admin: 05/23/18 00:19 Dose: 2 mg Admin: 05/22/18 21:36 Dose: 2 mg Admin: 05/22/18 11:01 Dose: 2 mg Admin: 05/22/18 08:21 Dose: 2 mg Nitroglycerin (Nitrostat) 0.4 mg SL [id number] PRN PRN Reason: Chest Pain Pantoprazole Sodium (Protonix) 20 mg PO 0600 [facility] Last Admin: 05/23/18 05:42 Dose: 20 mg Admin: 05/22/18 06:24 Dose: 20 mg Sertraline HCl (Zoloft) 100 mg PO DAILY [facility] Last Admin: 05/23/18 09:23 Dose: 100 mg Admin: 05/22/18 09:08 Dose: 100 mg Trazodone HCl (Desyrel) 100 mg PO BEDTIME [facility] Last Admin: 05/22/18 20:41 Dose: 100 mg Vital Signs - 8 hr 05/21/18 16:49 05/21/18 17:18 05/21/18 17:37 Temperature 98.0 F Pulse Rate 98 H 97 H 98 H Respiratory Rate 25 H 23 28 H Blood Pressure 127/64 H Blood Pressure [Left Arm] 105/60 95/47 L Pulse Oximetry 94 94 91 05/21/18 17:48 05/21/18 18:01 05/21/18 19:11 Temperature Pulse Rate 90 93 H 93 H Respiratory Rate 18 24 23 Blood Pressure Blood Pressure [Left Arm] 89/42 L 105/74 109/42 L Pulse Oximetry 94 94 100 05/21/18 21:12 Temperature Pulse Rate 87 Respiratory Rate 25 H Blood Pressure Blood Pressure [Left Arm] 116/44 L Pulse Oximetry 97 <Eliseo De Leon, DO - Last Filed: 05/21/18 21:46> Orders Ordered: Discontinued Medications Acetaminophen (Tylenol) 650 mg PO Q6HR PRN PRN Reason: As Needed for Fever/Mild Pain Last Admin: 05/22/18 20:41 Dose: 650 mg Alprazolam (Xanax) 0.5 mg PO Q6H PRN PRN Reason: Anxiety Last Admin: 05/22/18 21:32 Dose: 0.5 mg Aspirin (Aspirin Chew) 324 mg PO NOW ONE Stop: 05/21/18 17:16 Last Admin: 05/21/18 17:24 Dose: 324 mg Bisacodyl (Dulcolax) 10 mg IN DAILY PRN PRN Reason: Constipation Bupropion HCl (Wellbutrin Sr) 300 mg PO DAILY [facility] Last Admin: 05/23/18 09:21 Dose: 300 mg Admin: 05/22/18 08:39 Dose: 300 mg Calcium Carbonate (Tums) 2,000 mg PO QID [facility] Last Admin: 05/23/18 13:11 Dose: 2,000 mg Admin: 05/23/18 09:22 Dose: 2,000 mg Admin: 05/22/18 20:41 Dose: 2,000 mg Admin: 05/22/18 17:10 Dose: 2,000 mg Admin: 05/22/18 13:26 Dose: 2,000 mg Admin: 05/22/18 08:39 Dose: 2,000 mg Clopidogrel Bisulfate (Plavix) 75 mg PO DAILY [facility] Last Admin: 05/23/18 09:23 Dose: 75 mg Admin: 05/22/18 08:39 Dose: 75 mg Enoxaparin Sodium (Lovenox) 40 mg SUBCUT DAILY [facility] Last Admin: 05/23/18 09:22 Dose: 40 mg Admin: 05/22/18 08:39 Dose: 40 mg Fenofibrate (Fenofibrate) 48 mg PO DAILY [facility] Last Admin: 05/23/18 09:23 Dose: 48 mg Admin: 05/22/18 08:39 Dose: 48 mg Gabapentin (Neurontin) 600 mg PO TID [facility] Last Admin: 05/22/18 11:47 Dose: Not Given Gabapentin (Neurontin) 600 mg PO TID PRN PRN Reason: Pain, Mild (1-3) Last Admin: 05/22/18 15:47 Dose: 600 mg Sodium Chloride (Normal Saline 0.9%) 1,000 mls @ 500 mls/hr IV BOLUS ONE Stop: 05/21/18 19:14 Last Infusion: 05/21/18 19:27 Dose: 0 mls/hr Infusion: 05/21/18 17:49 Dose: 1,000 mls/hr Admin: 05/21/18 17:24 Dose: 500 mls/hr Ketorolac Tromethamine (Toradol) 30 mg IV Q6HR [facility] Stop: 05/28/18 12:32 Last Admin: 05/23/18 13:10 Dose: 30 mg Lorazepam (Ativan) 1 mg PO NOW ONE Stop: 05/22/18 21:54 Last Admin: 05/22/18 22:07 Dose: 1 mg Metoprolol Tartrate (Lopressor) 25 mg PO NOW ONE Stop: 05/22/18 21:49 Last Admin: 05/22/18 22:05 Dose: 25 mg Morphine Sulfate (Morphine) 2 mg IV Q4HR PRN PRN Reason: Pain, Moderate (4-6) Last Admin: 05/22/18 20:40 Dose: 2 mg Admin: 05/22/18 15:47 Dose: 2 mg Admin: 05/22/18 03:27 Dose: 2 mg Admin: 05/21/18 23:03 Dose: 2 mg Morphine Sulfate (Morphine) 2 mg IV Q2HR PRN PRN Reason: Pain, Moderate (4-6) Last Admin: 05/23/18 13:34 Dose: 2 mg Admin: 05/23/18 09:35 Dose: 2 mg Admin: 05/23/18 05:42 Dose: 2 mg Admin: 05/23/18 00:19 Dose: 2 mg Admin: 05/22/18 21:36 Dose: 2 mg Admin: 05/22/18 11:01 Dose: 2 mg Admin: 05/22/18 08:21 Dose: 2 mg Nitroglycerin (Nitrostat) 0.4 mg SL [id number] PRN PRN Reason: Chest Pain Pantoprazole Sodium (Protonix) 20 mg PO 0600 [facility] Last Admin: 05/23/18 05:42 Dose: 20 mg Admin: 05/22/18 06:24 Dose: 20 mg Sertraline HCl (Zoloft) 100 mg PO DAILY [facility] Last Admin: 05/23/18 09:23 Dose: 100 mg Admin: 05/22/18 09:08 Dose: 100 mg Trazodone HCl (Desyrel) 100 mg PO BEDTIME [facility] Last Admin: 05/22/18 20:41 Dose: 100 mg Consultations Consultation #1: Dr. Chavira is happy to accept this patient and will write orders Vital Signs - 8 hr 05/21/18 16:49 05/21/18 17:18 05/21/18 17:37 Temperature 98.0 F Pulse Rate 98 H 97 H 98 H Respiratory Rate 25 H 23 28 H Blood Pressure 127/64 H Blood Pressure [Left Arm] 105/60 95/47 L Pulse Oximetry 94 94 91 05/21/18 17:48 05/21/18 18:01 05/21/18 19:11 Temperature Pulse Rate 90 93 H 93 H Respiratory Rate 18 24 23 Blood Pressure Blood Pressure [Left Arm] 89/42 L 105/74 109/42 L Pulse Oximetry 94 94 100 05/21/18 21:12 Temperature Pulse Rate 87 Respiratory Rate 25 H Blood Pressure Blood Pressure [Left Arm] 116/44 L Pulse Oximetry 97 MDM - SOB/Dyspnea <Man Read, DO - Last Filed: 06/02/18 07:06> Lab Data Result diagrams: 05/23/18 05:01 05/23/18 05:01 Lab Results 05/21/18 05/21/18 05/21/18 Range/Units 17:29 17:29 17:29 WBC 8.1 (4.5-11.0) X10^3/uL RBC 4.45 (4.0-5.2) X10^6/uL Hgb 13.2 (12.0-16.0) g/dL Hct 38.9 (36-46) % MCV 87.4 (80-100) fL MCH 29.7 (26-34) PG MCHC 34.0 (30-36) % RDW 15.3 H (11.6-14.8) % Plt Count 348 (150-400) X10^3/uL Neut % (Auto) 66.9 (50-75) % Lymph % (Auto) 21.0 L (25-40) % [place] % (Auto) 8.6 (3-14) % Eos % (Auto) 2.7 (2-4) % Baso % (Auto) 0.8 (0-2) % Neut # (Auto) 5400 (3405-9956) /uL PT 11.8 (10.1-12.7) SECONDS INR 1.1 (0.9-1.3) APTT 34 (26.4-36.2) SECONDS Sodium 144 (137-145) mmol/L Potassium 4.2 (3.4-5.1) mmol/L Chloride 107 (98-107) mmol/L Carbon Dioxide 29 (22-32) mmol/L BUN 28 H (7-17) mg/dL Creatinine 1.00 (0.52-1.04) mg/dL Estimated GFR 55.5 L (>60) mL/min BUN/Creatinine Ratio 28.0 H (6-22) Glucose 131 H (80-110) mg/dL Lactate (0.7-2.1) mmol/L Calcium 9.4 (8.4-10.2) mg/dL Total Bilirubin 0.5 (0.2-1.3) mg/dL AST 30 (14-36) IU/L ALT 19 (9-52) IU/L Alkaline Phosphatase 87 (38-126) U/L Troponin I < 0.012 (0.01-0.034) ng/mL B-Natriuretic Peptide 177.0 H (<100) Total Protein 7.4 (6.3-8.2) g/dL Albumin 3.8 (3.5-5.0) g/dL Globulin 3.6 (1.7-4.1) g/dL Albumin/Globulin Ratio 1.1 (1.0-2.8) Triglycerides (35-150) mg/dL Cholesterol (140-199) mg/dL LDL Cholesterol, Calc (<100) mg/dL HDL Cholesterol (40-60) mg/dL Lipase 215 (23-300) U/L Procalcitonin (<0.5) ng/mL 05/21/18 05/21/18 05/22/18 Range/Units 17:29 17:45 04:00 WBC 7.4 (4.5-11.0) X10^3/uL RBC 4.29 (4.0-5.2) X10^6/uL Hgb 12.6 (12.0-16.0) g/dL Hct 37.8 (36-46) % MCV 88.1 (80-100) fL MCH 29.4 (26-34) PG MCHC 33.4 (30-36) % RDW 15.6 H (11.6-14.8) % Plt Count 291 (150-400) X10^3/uL Neut % (Auto) 59.2 (50-75) % Lymph % (Auto) 27.2 (25-40) % [place] % (Auto) 9.8 (3-14) % Eos % (Auto) 3.1 (2-4) % Baso % (Auto) 0.7 (0-2) % Neut # (Auto) 4400 (2969-6860) /uL PT (10.1-12.7) SECONDS INR (0.9-1.3) APTT (26.4-36.2) SECONDS Sodium (137-145) mmol/L Potassium (3.4-5.1) mmol/L Chloride (98-107) mmol/L Carbon Dioxide (22-32) mmol/L BUN (7-17) mg/dL Creatinine (0.52-1.04) mg/dL Estimated GFR (>60) mL/min BUN/Creatinine Ratio (6-22) Glucose (80-110) mg/dL Lactate 1.8 (0.7-2.1) mmol/L Calcium (8.4-10.2) mg/dL Total Bilirubin (0.2-1.3) mg/dL AST (14-36) IU/L ALT (9-52) IU/L Alkaline Phosphatase (38-126) U/L Troponin I (0.01-0.034) ng/mL B-Natriuretic Peptide (<100) Total Protein (6.3-8.2) g/dL Albumin (3.5-5.0) g/dL Globulin (1.7-4.1) g/dL Albumin/Globulin Ratio (1.0-2.8) Triglycerides (35-150) mg/dL Cholesterol (140-199) mg/dL LDL Cholesterol, Calc (<100) mg/dL HDL Cholesterol (40-60) mg/dL Lipase (23-300) U/L Procalcitonin < 0.05 (<0.5) ng/mL 05/22/18 05/23/18 05/23/18 Range/Units 04:00 05:01 05:01 WBC 5.5 (4.5-11.0) X10^3/uL RBC 4.36 (4.0-5.2) X10^6/uL Hgb 12.8 (12.0-16.0) g/dL Hct 38.5 (36-46) % MCV 88.2 (80-100) fL MCH 29.4 (26-34) PG MCHC 33.4 (30-36) % RDW 15.6 H (11.6-14.8) % Plt Count 291 (150-400) X10^3/uL Neut % (Auto) 51.2 (50-75) % Lymph % (Auto) 31.7 (25-40) % [place] % (Auto) 12.5 (3-14) % Eos % (Auto) 3.9 (2-4) % Baso % (Auto) 0.7 (0-2) % Neut # (Auto) 2800 L (5376-9656) /uL PT (10.1-12.7) SECONDS INR (0.9-1.3) APTT (26.4-36.2) SECONDS Sodium 143 142 (137-145) mmol/L Potassium 4.3 4.6 (3.4-5.1) mmol/L Chloride 108 H 103 (98-107) mmol/L Carbon Dioxide 26 31 (22-32) mmol/L BUN 20 H 20 H (7-17) mg/dL Creatinine 0.90 1.10 H (0.52-1.04) mg/dL Estimated GFR > 60.0 49.7 L (>60) mL/min BUN/Creatinine Ratio 22.2 H 18.2 (6-22) Glucose 111 H 118 H (80-110) mg/dL Lactate (0.7-2.1) mmol/L Calcium 9.4 11.0 H (8.4-10.2) mg/dL Total Bilirubin (0.2-1.3) mg/dL AST (14-36) IU/L ALT (9-52) IU/L Alkaline Phosphatase (38-126) U/L Troponin I < 0.012 (0.01-0.034) ng/mL B-Natriuretic Peptide (<100) Total Protein (6.3-8.2) g/dL Albumin (3.5-5.0) g/dL Globulin (1.7-4.1) g/dL Albumin/Globulin Ratio (1.0-2.8) Triglycerides 114 (35-150) mg/dL Cholesterol 135 L (140-199) mg/dL LDL Cholesterol, Calc 67 (<100) mg/dL HDL Cholesterol 45 (40-60) mg/dL Lipase (23-300) U/L Procalcitonin (<0.5) ng/mL Imaging Data Chest x-ray: Radiologist's impression: PROCEDURE: XR CHEST 1V INDICATIONS: SOB TECHNIQUE: One view of the chest was acquired. COMPARISON: None. FINDINGS: Surgical changes and devices: None. Lungs and pleura: No pleural effusions or pneumothorax. Lungs are clear. Mediastinum: Mediastinal contours appear normal. Heart size is normal. Bones and chest wall: No suspicious bony lesions. Overlying soft tissues appear unremarkable. IMPRESSION: No acute cardiopulmonary pathology. Dictated by: Jean Pierre Miramontes M.D. on 05/21/2018 at 17:30 Approved by: Jean Pierre Miramontes M.D. on 05/21/2018 at 17:32 ECG Data Interpretation: Sinus rhythm Ventricular rate in 95 First degree AV block as needed oval 301 Normal QRS Normal QTC Normal axis 1 mm elevation in lead 2 no elevation in lead 3 1 m elevation AVF No reciprocal changes <Eliseo Greenleaf, - Last Filed: 05/21/18 21:46> Differential Diagnosis Likely congestive heart failure, community acquired pneumonia and pulmonary embolism Medical Records Attestation: I reviewed the patient's medical records. Lab Data Attestation: I reviewed the patient's lab results. Lab Results 05/21/18 05/21/18 05/21/18 Range/Units 17:29 17:29 17:29 WBC 8.1 (4.5-11.0) X10^3/uL RBC 4.45 (4.0-5.2) X10^6/uL Hgb 13.2 (12.0-16.0) g/dL Hct 38.9 (36-46) % MCV 87.4 (80-100) fL MCH 29.7 (26-34) PG MCHC 34.0 (30-36) % RDW 15.3 H (11.6-14.8) % Plt Count 348 (150-400) X10^3/uL Neut % (Auto) 66.9 (50-75) % Lymph % (Auto) 21.0 L (25-40) % [place] % (Auto) 8.6 (3-14) % Eos % (Auto) 2.7 (2-4) % Baso % (Auto) 0.8 (0-2) % Neut # (Auto) 5400 (9356-9478) /uL PT 11.8 (10.1-12.7) SECONDS INR 1.1 (0.9-1.3) APTT 34 (26.4-36.2) SECONDS Sodium 144 (137-145) mmol/L Potassium 4.2 (3.4-5.1) mmol/L Chloride 107 (98-107) mmol/L Carbon Dioxide 29 (22-32) mmol/L BUN 28 H (7-17) mg/dL Creatinine 1.00 (0.52-1.04) mg/dL Estimated GFR 55.5 L (>60) mL/min BUN/Creatinine Ratio 28.0 H (6-22) Glucose 131 H (80-110) mg/dL Lactate (0.7-2.1) mmol/L Calcium 9.4 (8.4-10.2) mg/dL Total Bilirubin 0.5 (0.2-1.3) mg/dL AST 30 (14-36) IU/L ALT 19 (9-52) IU/L Alkaline Phosphatase 87 (38-126) U/L Troponin I < 0.012 (0.01-0.034) ng/mL B-Natriuretic Peptide 177.0 H (<100) Total Protein 7.4 (6.3-8.2) g/dL Albumin 3.8 (3.5-5.0) g/dL Globulin 3.6 (1.7-4.1) g/dL Albumin/Globulin Ratio 1.1 (1.0-2.8) Triglycerides (35-150) mg/dL Cholesterol (140-199) mg/dL LDL Cholesterol, Calc (<100) mg/dL HDL Cholesterol (40-60) mg/dL Lipase 215 (23-300) U/L Procalcitonin (<0.5) ng/mL 05/21/18 05/21/18 05/22/18 Range/Units 17:29 17:45 04:00 WBC 7.4 (4.5-11.0) X10^3/uL RBC 4.29 (4.0-5.2) X10^6/uL Hgb 12.6 (12.0-16.0) g/dL Hct 37.8 (36-46) % MCV 88.1 (80-100) fL MCH 29.4 (26-34) PG MCHC 33.4 (30-36) % RDW 15.6 H (11.6-14.8) % Plt Count 291 (150-400) X10^3/uL Neut % (Auto) 59.2 (50-75) % Lymph % (Auto) 27.2 (25-40) % [place] % (Auto) 9.8 (3-14) % Eos % (Auto) 3.1 (2-4) % Baso % (Auto) 0.7 (0-2) % Neut # (Auto) 4400 (9835-5447) /uL PT (10.1-12.7) SECONDS INR (0.9-1.3) APTT (26.4-36.2) SECONDS Sodium (137-145) mmol/L Potassium (3.4-5.1) mmol/L Chloride (98-107) mmol/L Carbon Dioxide (22-32) mmol/L BUN (7-17) mg/dL Creatinine (0.52-1.04) mg/dL Estimated GFR (>60) mL/min BUN/Creatinine Ratio (6-22) Glucose (80-110) mg/dL Lactate 1.8 (0.7-2.1) mmol/L Calcium (8.4-10.2) mg/dL Total Bilirubin (0.2-1.3) mg/dL AST (14-36) IU/L ALT (9-52) IU/L Alkaline Phosphatase (38-126) U/L Troponin I (0.01-0.034) ng/mL B-Natriuretic Peptide (<100) Total Protein (6.3-8.2) g/dL Albumin (3.5-5.0) g/dL Globulin (1.7-4.1) g/dL Albumin/Globulin Ratio (1.0-2.8) Triglycerides (35-150) mg/dL Cholesterol (140-199) mg/dL LDL Cholesterol, Calc (<100) mg/dL HDL Cholesterol (40-60) mg/dL Lipase (23-300) U/L Procalcitonin < 0.05 (<0.5) ng/mL 05/22/18 05/23/18 05/23/18 Range/Units 04:00 05:01 05:01 WBC 5.5 (4.5-11.0) X10^3/uL RBC 4.36 (4.0-5.2) X10^6/uL Hgb 12.8 (12.0-16.0) g/dL Hct 38.5 (36-46) % MCV 88.2 (80-100) fL MCH 29.4 (26-34) PG MCHC 33.4 (30-36) % RDW 15.6 H (11.6-14.8) % Plt Count 291 (150-400) X10^3/uL Neut % (Auto) 51.2 (50-75) % Lymph % (Auto) 31.7 (25-40) % [place] % (Auto) 12.5 (3-14) % Eos % (Auto) 3.9 (2-4) % Baso % (Auto) 0.7 (0-2) % Neut # (Auto) 2800 L (7204-1452) /uL PT (10.1-12.7) SECONDS INR (0.9-1.3) APTT (26.4-36.2) SECONDS Sodium 143 142 (137-145) mmol/L Potassium 4.3 4.6 (3.4-5.1) mmol/L Chloride 108 H 103 (98-107) mmol/L Carbon Dioxide 26 31 (22-32) mmol/L BUN 20 H 20 H (7-17) mg/dL Creatinine 0.90 1.10 H (0.52-1.04) mg/dL Estimated GFR > 60.0 49.7 L (>60) mL/min BUN/Creatinine Ratio 22.2 H 18.2 (6-22) Glucose 111 H 118 H (80-110) mg/dL Lactate (0.7-2.1) mmol/L Calcium 9.4 11.0 H (8.4-10.2) mg/dL Total Bilirubin (0.2-1.3) mg/dL AST (14-36) IU/L ALT (9-52) IU/L Alkaline Phosphatase (38-126) U/L Troponin I < 0.012 (0.01-0.034) ng/mL B-Natriuretic Peptide (<100) Total Protein (6.3-8.2) g/dL Albumin (3.5-5.0) g/dL Globulin (1.7-4.1) g/dL Albumin/Globulin Ratio (1.0-2.8) Triglycerides 114 (35-150) mg/dL Cholesterol 135 L (140-199) mg/dL LDL Cholesterol, Calc 67 (<100) mg/dL HDL Cholesterol 45 (40-60) mg/dL Lipase (23-300) U/L Procalcitonin (<0.5) ng/mL MDM Narrative Medical decision making narrative: Patient has had a few episodes of chest pain with a concerning description as well as unexplained fatigue and shortness of breath. Though her evaluation has thus far been essentially normal she will require further evaluation to rule out concerning underlying symptoms such as myocardial infarction, PE, pneumonia, other concerning symptoms Discharge Plan Departure Patient Disposition: Admitted as Observation Clinical Impression: Chest pain Discharge Date/Time: 05/21/18 21:49 Interventions: ED Discharge Assessment Last Done: 05/21/18 21:49 Admit Date/Time: 05/21/18 21:29 Admit Provider: Albert Bran
--- NOTE | 2018-05-21 17:16 | DI.CT.S_ITS ---
PROCEDURE: CT ANGIO CHEST PE PROTOCOL INDICATIONS: Chest pain, shortness of breath, TECHNIQUE: After the administration of intravenous contrast, 2 mm thick sections acquired from the pulmonary apices to the posterior costophrenic angles. 3-dimensional maximum intensity projection (MIP) coronal and sagittal reformats were then acquired through the thorax. For radiation dose reduction, the following was used: automated exposure control, adjustment of mA and/or kV according to patient size. COMPARISON: None. FINDINGS: Image quality: Suboptimal opacification of distal small branches of bilateral pulmonary arteries. Pulmonary arteries: Pulmonary arteries are normal in size, and demonstrate no intraluminal filling defects in main pulmonary trunk and bilateral main pulmonary arteries to suggest central pulmonary embolism. More distal small branches of bilateral pulmonary arteries are suboptimally opacified, small pulmonary emboli cannot be entirely excluded. Lungs and pleura: Bibasilar dependent atelectasis/scarring is seen. No focal infiltrate is noted. No pleural effusions or pneumothorax. Central and peripheral airways are patent. Mediastinum: Heart size is mildly enlarged the, without pericardial effusion. No mediastinal or hilar adenopathy. Thoracic aorta is normal in caliber and enhancement. Esophagus is normal in caliber, with a small hiatal hernia. Bones and chest wall: No suspicious bony lesions. Ribs and thoracic spine appear intact throughout. Thyroid gland is within normal limits. No axillary or supraclavicular adenopathy. Abdomen: Visualized upper abdominal solid organs appear normal in the early arterial phase of enhancement. Degenerative disc disease throughout thoracic spine is seen. IMPRESSION: 1. No evidence of central pulmonary emboli. Distal branches of bilateral pulmonary arteries are suboptimally opacified, and small pulmonary emboli cannot be excluded. 2. No thoracic aortic aneurysm or gross dissection. 3. Bibasilar atelectasis/scarring. Bilateral lungs are otherwise clear. 4. No mediastinal or hilar adenopathy. Dictated by: Jean Pierre Miramontes M.D. on 05/21/2018 at 18:50 Approved by: Jean Pierre Miramontes M.D. on 05/21/2018 at 18:55
--- NOTE | 2018-05-21 17:17 | DI.RAD.S_ITS ---
PROCEDURE: XR CHEST 1V INDICATIONS: SOB TECHNIQUE: One view of the chest was acquired. COMPARISON: None. FINDINGS: Surgical changes and devices: None. Lungs and pleura: No pleural effusions or pneumothorax. Lungs are clear. Mediastinum: Mediastinal contours appear normal. Heart size is normal. Bones and chest wall: No suspicious bony lesions. Overlying soft tissues appear unremarkable. IMPRESSION: No acute cardiopulmonary pathology. Dictated by: Jean Pierre Miramontes M.D. on 05/21/2018 at 17:30 Approved by: Jean Pierre Miramontes M.D. on 05/21/2018 at 17:32
[2018-05-21] MEDS: ASPIRIN 81 MG TAB 324 MG PO (17:24)
[2018-05-21] MEDS: SODIUM CHLORIDE 0.9% 1,000 ML 500 ML IV (17:24)
[2018-05-21 17:45] LABS: Add Manual Diff / Slide Review NO; Basophils Percent Auto 0.8 % (0-2); Eosinophils Percent Auto 2.7 % (2-4); Hematocrit 38.9 % (36-46); Hemoglobin 13.2 g/dL (12.0-16.0); Mean Corpuscular Hemoglobin 29.7 PG (26-34); Mean Corpuscular Volume 87.4 fL (80-100); Monocytes Percent Auto 8.6 % (3-14); Neutrophils Absolute Auto 5400 /uL (3000-5900); Neutrophils Percent Auto 66.9 % (50-75); Platelet Count 348 X10^3/uL (150-400); Red Blood Cell Count 4.45 X10^6/uL (4.0-5.2); Red Cell Distribution Width 15.3 % (11.6-14.8); White Blood Cell Count 8.1 X10^3/uL (4.5-11.0)
[2018-05-21 17:53] LABS: INR 1.1 (0.9-1.3); Prothrombin Time 11.8 SECONDS (10.1-12.7)
[2018-05-21 17:55] LABS: PTT Partial Thromboplastin Tim 34 SECONDS (26.4-36.2)
[2018-05-21 18:03] LABS: Lactate (Lactic Acid) 1.8 mmol/L (0.7-2.1)
[2018-05-21 18:04] LABS: Alanine Aminotransferase 19 IU/L (9-52); Albumin 3.8 g/dL (3.5-5.0); Albumin Globulin Ratio 1.1 (1.0-2.8); Alkaline Phosphatase 87 U/L (38-126); Aspartate Aminotransferase 30 IU/L (14-36); Bilirubin Total 0.5 mg/dL (0.2-1.3); Blood Urea Nitrogen 28 mg/dL (7-17); Calcium 9.4 mg/dL (8.4-10.2); Carbon Dioxide 29 mmol/L (22-32); Chloride 107 mmol/L (98-107); Estimated Glomerular Filt Rate 55.5 mL/min (>60); Globulin 3.6 g/dL (1.7-4.1); Glucose 131 mg/dL (80-110); HEMOLYSIS 50 (0-50); Lipase 215 U/L (23-300); Potassium 4.2 mmol/L (3.4-5.1); Sodium 144 mmol/L (137-145); Total Protein 7.4 g/dL (6.3-8.2)
[2018-05-21 18:21] LABS: Troponin I < 0.012 ng/mL (0.01-0.034)
[2018-05-21 18:32] LABS: Procalcitonin < 0.05 ng/mL (<0.5)
--- NOTE | 2018-05-21 22:05 | PC.NURSE ---
patient is a&ox4, is on 2.5L NC o2 sat is 98%. patient states she has left side chest pain and SOB; EKG and CT were negative. No cough observed. lung sounds clear but diminished. bowel tones present, heart rate regular. patient denies history of afib. skin intact except for right elbow is bruised. patient states she fell last Tuesday. call light in reach, patient has been oriented to room.
[2018-05-21] MEDS: MORPHINE 2 MG/ML INJ IV (23:03)
[2018-05-22] VITALS (7 sets, daily range): BP systolic 121–140; BP diastolic 75–106; PULSE 83–107; RESP 18–20; TEMP 36.2–37.3; O2SAT 92–98
--- NOTE | 2018-05-22 | DI.ECHO.S_ITS ---
[place] +---------+ : : [address] : [place] : : : : [id number] : : : : Phone: [phone]+ Echocardiogram Report + + :Name: SUSAN MCFADDEN Study Date: 05/22/2018 Height: 63 in : :[facility] Exam Location: [facility] Weight: 274 lb : : Gender: Female BSA: 2.2 m2 : :: 1950 Age: 68 yrs BP: 127/87 mmHg: :Reason For Study: Chest pain : : Performed By: Luci Page : :Referring: BERHANE PETERS : + + Interpretation Summary 1) Normal left ventricular thickness, size, wall motion, and systolic function (EF 60-65%). 2) Normal right ventricular size and function. 3) No significant valvular abnormalities. 4) Compared to the Echo done 06/07/2014, no significant change. Procedure: A two-dimensional transthoracic echocardiogram with color flow and Doppler was performed. The study quality was technically difficult. Comparison is made with the echocardiogram of 06/07/2014. A contrast injection of Definity was performed to improve assessment of LV function. The patient was in atrial fibrillation with heart rates between 92-99 bpm during the exam. Left Ventricle: The left ventricle is normal in size. There is normal left ventricular wall thickness. The ejection fraction is estimated to be 60-65%. Left ventricular systolic function is normal without focal wall motion abnormalities. Diastolic function could not be accurately assessed due to atrial fibrillation. Right Ventricle: The right ventricle is normal in size and function. Atria: The left atrium is not well visualized. Right atrium not well visualized. There is no Doppler evidence for an interatrial shunt. Mitral Valve: The mitral valve leaflets appear thickened, but open well. There is mild to moderate mitral annular calcification. There is mild mitral regurgitation. Aortic Valve: The aortic valve is grossly normal. There is no aortic valve stenosis. No aortic regurgitation is present. Tricuspid Valve: The tricuspid valve is normal in structure and function. There is trace tricuspid regurgitation. Pulmonary artery pressures cannot be estimated because of the lack of a measurable TR jet velocity. Pulmonic Valve: The pulmonic valve is not well visualized. There is trace pulmonic regurgitation. Great Vessels: The aortic root is normal size. The ascending aorta is normal in size. The aortic arch is normal in size. The pulmonary is not well visualized. The IVC is of normal diameter and collapses greater than 50% with a sniff. This suggests a low right atrial pressure of 3 mm Hg. Pericardium/ Pleura There is a trivial pericardial effusion noted. There are no echocardiographic indications of cardiac tamponade. There is no pleural effusion. MMode/2D Measurements & Calculations LVIDd: 4.3 cm Ao root diam: 3.2 cm LVIDs: 3.1 cm asc Aorta Diam: 2.8 cm FS: 27.6 % Ao Arch Diam (Prox Trans): 2.9 cm EPSS: 0.48 cm IVSd: 1.1 cm LVPWd: 0.93 cm LV kiran. diameter/BSA (cm/m^2): 2.0 LV sys. diameter/BSA (cm/m^2): 1.4 LA A2 area: 26.4 cm2 RA long axis: 5.6 cm LA A4 area: 30.7 cm2 RA area: 15.6 cm2 LA length (vol): 7.7 cm RA vol: 36.7 ml LA vol: 89.3 ml RA : 16.6 ml/m2 LA vol index: 40.4 ml/m2 IVC diam: 2.0 cm RVD1 (basal): 3.7 cm TAPSE: 2.4 cm Doppler Measurements & Calculations Ao V2 max: 123.8 cm/sec LVOT Max Rudy: 65.1 cm/sec Ao V2 mean: 85.8 cm/sec LV V1 max P.7 mmHg Ao max P.1 mmHg LV V1 VTI: 9.8 cm Ao mean P.3 mmHg sev ratio: 0.55 Ao V2 VTI: 17.8 cm MV E max rudy: 193.0 cm/sec PA V2 max: 58.8 cm/sec Med Peak E' Rudy: 11.0 cm/sec PA V2 mean: 40.0 cm/sec E/E' med: 17.5 PA mean P.71 mmHg Lat Peak E' Rudy: 13.1 cm/sec PA Accel Time: 0.08 sec E/E' lat: 14.8 E/e' average: 16.2 MV P1/2t: 48.6 msec MV V2 mean: 94.0 cm/sec MV P1/2t max rudy: 192.6 cm/sec MV mean P.4 mmHg MVA(P1/2t): 4.5 cm2 MV V2 VTI: 28.8 cm Reading Physician:01:30 PM
[2018-05-22] MEDS: MORPHINE 2 MG/ML INJ IV ×6 (03:27→21:36)
[2018-05-22 04:10] LABS: Add Manual Diff / Slide Review NO; Basophils Percent Auto 0.7 % (0-2); Eosinophils Percent Auto 3.1 % (2-4); Hematocrit 37.8 % (36-46); Hemoglobin 12.6 g/dL (12.0-16.0); Lymphocytes Percent Auto 27.2 % (25-40); Mean Corpuscular HGB Conc 33.4 % (30-36); Mean Corpuscular Hemoglobin 29.4 PG (26-34); Mean Corpuscular Volume 88.1 fL (80-100); Monocytes Percent Auto 9.8 % (3-14); Neutrophils Absolute Auto 4400 /uL (3000-5900); Neutrophils Percent Auto 59.2 % (50-75); Platelet Count 291 X10^3/uL (150-400); Red Blood Cell Count 4.29 X10^6/uL (4.0-5.2); Red Cell Distribution Width 15.6 % (11.6-14.8); White Blood Cell Count 7.4 X10^3/uL (4.5-11.0)
--- NOTE | 2018-05-22 04:16 | PC.NURSE ---
shift note At start of shift pt was reporting chest pain 5/10 and evening RN provided IV morphine. Pain decreased to 4/10. ICU called informing that tele showed no P wave. Called MD and notified and 12 lead EKG ordered. Pt appeared relaxed when doing nursing assessment a few minutes later. Appeared asleep for an hour or so before getting up to use bedside commode. At 0330 pt notified RN of chest pain of 5/10. VS 138/78 and 89BPM. military education coordinator noticed a new 1st degree AV block since last EKG in March. MD notified of pt's changes. New order for IV morphine, SL nitro and stat troponin. Provided pt with second dose IV morphine. Chest pain decreased to 4/10 and pt appeared asleep shortly after. Call light in hand. Will continue to monitor pt, awaiting troponin results.
[2018-05-22 04:19] LABS: BUN Creatinine Ratio 22.2 (6-22); Blood Urea Nitrogen 20 mg/dL (7-17); Calcium 9.4 mg/dL (8.4-10.2); Carbon Dioxide 26 mmol/L (22-32); Chloride 108 mmol/L (98-107); Estimated Glomerular Filt Rate > 60.0 mL/min (>60); Glucose 111 mg/dL (80-110); HEMOLYSIS < 15 (0-50); Potassium 4.3 mmol/L (3.4-5.1); Sodium 143 mmol/L (137-145)
[2018-05-22 04:32] LABS: Troponin I < 0.012 ng/mL (0.01-0.034)
[2018-05-22 04:33] LABS: Cholesterol 135 mg/dL (140-199); HDL Cholesterol 45 mg/dL (40-60); LDL Cholesterol Calculated 67 mg/dL (<100); Triglycerides 114 mg/dL (35-150)
--- NOTE | 2018-05-22 05:02 | PC.NURSE ---
shift note At start of shift pt was complaining of chest pain with tightness of 5/10 and evening nurse gave IV morphine. No reports of dizziness, headache, numbness or tingling. Upon reassessment, pain decreased to 4/10. ICU called to notify this RN that pt's tele showed no P waves. Notified rn discharge and MD. MD ordered 12 lead EKG. dimension stone quarry supervisor noted a new onset of 1st degree AV block since last EKG in March. At 2345 went to pt's room to complete nursing physical assessment. Pt appeared calm, relaxed and was cooperative. Pt able to sleep until getting up to bedside commode. At 0320 pt reported chest pain of 5/10 with tightness to nursing preceptor. VS 137/ 78. notified, new orders for nitro, morphine and another troponin. Gave second dose IV morphine, pain on reassessment a 4/10 and pt appeared asleep shortly thereafter. Troponin came back negative. Will continue to monitor. Call light in reach.
[2018-05-22] MEDS: PANTOPRAZOLE 20 MG TABLET PO (06:24)
--- NOTE | 2018-05-22 07:57 | PM.HP.1 ---
History of Present Illness Date Patient Seen: 05/22/18 Time Patient Seen: 08:07 Chief complaint: SOB Narrative: THIS VERY PLEASANT LADY WAS ADMITTED FROM HOME WITH HISTORY OF PAIN IN THE LEFT SIDE OF HER CHEST WORSE ON TAKING A DEEP BREATH HAS BEEN GOING ON FOR A FEW DAYS BUT WAS NOT GETTING ANY BETTER SHE GETS HOME PHYSICAL THERAPY AND WITH THE PHYSICAL THERAPIST FOUND HER HEART RATE TO BE UP 130/MT. CALL THE DOCTOR'S OFFICE AND SHE WAS SUPPOSED TO SEE THEM THIS AFTERNOON HOWEVER SINCE THE PATIENT WAS GETTING WORST RESPECT TO THE PAIN ON TAKING DEEP BREATHS SHE PRESENTED TO THE ER SHE HAS A PREVIOUS HISTORY OF ENDOCARDITIS AND A RIGHT-SIDED STROKE FROM WHICH SHE HAS RECOVERED MOSTLY BUT SHE HAS CONTINUES TO HAVE SOME HEADACHES AND DOES NORMALLY LAST ABOUT 10 HR BUT IN MARCH OF THIS YEAR SHE WAS NOT GOING AWAY AND SO SHE WAS ADMITTED THE HOSPITAL FOR A FEW DAYS SHE DOES NOT COMPLAIN OF ANY FEVER CHILLS OR RIGORS OF ANY HEADACHE NOW THE PAIN IS CONFINED TO THE LEFT JENIFFER AXILLARY REGION ANTERIORLY AND IS WORSE ON TAKING A DEEP BREATH AND MOVING THE ARM OF NOTE CT ANGIOGRAM TO RULE OUT PULMONARY EMBOLISM WAS ALREADY DONE IN THE ER AND WAS NEGATIVE FOR ANY SIGNIFICANT EMBOLI BUT DID SHOW SMALL VESSELS WERE NOT VERY ADEQUATELY OPACIFIED Patient History Medical History History of stroke (Acute) Morbid obesity with BMI of 45.0-49.9, adult (Acute) Type 2 diabetes mellitus (Acute) Surgical History History of spinal surgery (Acute) History of (Inactive) History of ventral hernia repair (Inactive) Family & Social History Family History: Reviewed 05/22/18 by Albert Bran MD Family history unavailable: No Social History: household members caregiver,none Prior Living Arrangements Apartment/Condo Safety & Behavioral: Feels Safe in Current Yes Environment Been Physically Hurt or No Threatened By a Person Suicidal Ideation Description None Suicide Plan Description No Plan Tobacco & Substance use: Smoking Status Never smoker alcohol intake never alcohol intake frequency 0-2 drinks per day Substance Use Type does not use Meds Home Medications Medication Instructions Recorded Confirmed Type clopidogrel [Plavix] 75 mg PO DAILY #0 06/15/17 05/21/18 History fenofibrate 54 mg PO DAILY #0 06/15/17 05/21/18 History sertraline [Zoloft] 100 mg PO QDAY #0 06/27/17 05/21/18 History metformin 500 mg PO BID 02/02/18 05/21/18 History bupropion HCl 2 tab PO DAILY 04/19/18 05/21/18 History gabapentin 600 mg PO TID 04/19/18 05/21/18 History ibuprofen 1 tab PO TID PRN 04/19/18 05/21/18 History trazodone 50 - 100 mg PO BEDTIME 04/19/18 05/21/18 History calcium carbonate [Calcium 500] 2,000 mg PO QID 05/21/18 05/21/18 History magnesium 600 mg PO DAILY 05/21/18 05/21/18 History Allergies Allergy/AdvReac Type Severity Reaction Status Date / Time vancomycin Allergy Intermediate Flushing Verified 04/19/18 15:17 Review of Systems Review of Systems A 12 POINT REVIEW OF SYSTEMS REVEALS RIGHT-SIDED STROKE FROM WHICH SHE IS RECOVERING AND STILL GETTING PHYSICAL THERAPY ENDOCARDITIS OF TREATED FULLY WITH 6 WEEKS OF ANTIBIOTICS POST STROKE HEADACHES AND A CURRENT CHEST PAIN ON THE LEFT SIDE OTHER SYSTEMS WERE NEGATIVE FOR ACUTE SYMPTOMS Exam Vital Signs (past 8 hours): - 05/22/18 03:33 Temperature 97.1 F L Pulse Rate 93 H Respiratory Rate 20 Blood Pressure 137/78 H Pulse Oximetry 98 Oxygen Delivery Method Nasal Cannula Oxygen Flow Rate 2 Const General: cooperative, healthy appearing, comfortable and well developed Orientation: alert, awake and oriented x3 HENMT Head: normal to inspection, normocephalic and atraumatic Ears: hearing grossly normal bilaterally Nose: external nose normal Mouth: oral mucosae normal Eyes General: appearance normal, both eyes and all related structures Eyelids: eyelids normal Conjunctivae: conjunctivae normal Sclera: sclerae normal Cornea: corneas normal EOM: EOM intact bilaterally Neck Neck: normal visual inspection, full ROM and No JVD Thyroid: thyroid normal Resp Effort & Inspection: normal respiratory effort, able to speak in complete sentences, no respiratory distress and no use of accessory muscles Auscultation: clear to auscultation bilaterally Cardio Palpation: normal PMI Rate: regular rate Rhythm: regular rhythm Heart Sounds: S1 normal and S2 normal GI Inspection: other (OBESITY) Palpation: soft and no hepatosplenomegaly Skin General: no rashes or lesions noted Neuro General: alert, awake, oriented x3 and no meningeal signs Cranial Nerves: CN's II-XI intact bilaterally Cognition: normal cognition Speech: speech normal Gait: normal gait Sensory Exam: other (RT FACIAL FLATTENING) Extrem Other: CHRONIC STASIS PIGMENTATION Objective Labs Result Diagrams: 05/22/18 04:00 05/22/18 04:00 Labs: Laboratory Results - last 24 hr 05/21/18 05/21/18 05/21/18 17:29 17:29 17:29 WBC 8.1 RBC 4.45 Hgb 13.2 Hct 38.9 MCV 87.4 MCH 29.7 MCHC 34.0 RDW 15.3 H Plt Count 348 Neut % (Auto) 66.9 Lymph % (Auto) 21.0 L [place] % (Auto) 8.6 Eos % (Auto) 2.7 Baso % (Auto) 0.8 Neut # (Auto) 5400 PT 11.8 INR 1.1 APTT 34 Sodium 144 Potassium 4.2 Chloride 107 Carbon Dioxide 29 BUN 28 H Creatinine 1.00 Estimated GFR 55.5 L BUN/Creatinine Ratio 28.0 H Glucose 131 H Lactate Calcium 9.4 Total Bilirubin 0.5 AST 30 ALT 19 Alkaline Phosphatase 87 Troponin I < 0.012 B-Natriuretic Peptide 177.0 H Total Protein 7.4 Albumin 3.8 Globulin 3.6 Albumin/Globulin Ratio 1.1 Triglycerides Cholesterol LDL Cholesterol, Calc HDL Cholesterol Lipase 215 Procalcitonin 05/21/18 05/21/18 05/22/18 17:29 17:45 04:00 WBC 7.4 RBC 4.29 Hgb 12.6 Hct 37.8 MCV 88.1 MCH 29.4 MCHC 33.4 RDW 15.6 H Plt Count 291 Neut % (Auto) 59.2 Lymph % (Auto) 27.2 [place] % (Auto) 9.8 Eos % (Auto) 3.1 Baso % (Auto) 0.7 Neut # (Auto) 4400 PT INR APTT Sodium Potassium Chloride Carbon Dioxide BUN Creatinine Estimated GFR BUN/Creatinine Ratio Glucose Lactate 1.8 Calcium Total Bilirubin AST ALT Alkaline Phosphatase Troponin I B-Natriuretic Peptide Total Protein Albumin Globulin Albumin/Globulin Ratio Triglycerides Cholesterol LDL Cholesterol, Calc HDL Cholesterol Lipase Procalcitonin < 0.05 05/22/18 04:00 WBC RBC Hgb Hct MCV MCH MCHC RDW Plt Count Neut % (Auto) Lymph % (Auto) [place] % (Auto) Eos % (Auto) Baso % (Auto) Neut # (Auto) PT INR APTT Sodium 143 Potassium 4.3 Chloride 108 H Carbon Dioxide 26 BUN 20 H Creatinine 0.90 Estimated GFR > 60.0 BUN/Creatinine Ratio 22.2 H Glucose 111 H Lactate Calcium 9.4 Total Bilirubin AST ALT Alkaline Phosphatase Troponin I < 0.012 B-Natriuretic Peptide Total Protein Albumin Globulin Albumin/Globulin Ratio Triglycerides 114 Cholesterol 135 L LDL Cholesterol, Calc 67 HDL Cholesterol 45 Lipase Procalcitonin Assessment & Plan Plan: Assessment/Plan Narrative: 1 CHEST PAIN ON THE LEFT SIDE PLEURITIC TYPE CT ANGIOGRAM RULED OUT MAJOR VESSEL PULMONARY EMBOLISM PAIN CONTROL Echocardiogram 2. MORBID OBESITY 3.HISTORY OF A CVA EMBOLIC FROM ENDOCARDITIS 4. POSTSTROKE HEADACHES ON OFF 5 EKG CARDIAC MARKERS WERE NEGATIVE FOR ACUTE ISCHEMIC CHANGES 6. DYSLIPIDEMIA ON FENOFIBRATE LIPID NUMBERS TODAY ARE ACCEPTABLE Possible anxiety will get social work consult her daughter lives in the same complex and she does have social support at home Time Spent With Patient Time with patient: Greater than 35 minutes Quality VTE Deep Vein Thrombosis/Pulmonary Embolism Present on Admission: No
[2018-05-22] MEDS: ENOXAPARIN 40 MG/0.4 ML SYRINGE SUBCUT (08:39)
[2018-05-22] MEDS: buPROPion SR 150 MG TAB 300 MG PO (08:39)
[2018-05-22] MEDS: CLOPIDOGREL 75 MG TABLET PO (08:39)
[2018-05-22] MEDS: CALCIUM CARBONATE 500 MG TAB 2000 MG PO ×4 (08:39→20:41)
[2018-05-22] MEDS: FENOFIBRATE 48 MG TABLET PO (08:39)
[2018-05-22] MEDS: SERTRALINE 50 MG TABLET 100 MG PO (09:08)
--- NOTE | 2018-05-22 09:30 | PC.NURSE ---
Pt c/o chest pain rates it 5/10 to chest with pressure, denies it radiating and c/o SOB. sats 97% 2l via cannula, no tele changes per ICU, notifed Dr. MCALLISTER no new orders.
--- NOTE | 2018-05-22 13:21 | OT.IP.TRT ---
Occupational Therapy Treatment Note M3 OT- IP Subjective and Pain Start: 05/22/18 13:20 Freq: Status: Active Protocol: Document 05/22/18 13:20 [facility] (Rec: 05/22/18 13:21 [facility] [id number]) OT- Subjective Occupational Therapy Visit Type Type Patient Unavailable Notes Pt having late lunch due to echo done earlier, therefore OT eval to be completed tomorrow.
--- NOTE | 2018-05-22 15:25 | CM.DANOTE ---
Discharge Planning/Care Management DCP: assessment: case received, EMR reviewed and met with pt. Introduced self and role. Pt is a 68 year old female who admitted to care of the hospitalist team. PCP: Man Melara. She also has a neurologist. Payer: Medicare and Medicaid INPT admission status: confirmed by UR RN Erika. Called [facility]/cell: [phone] and confirmed that they were current with pt/OT and PT and would just need resume HH orders at d/c plus updated clinical. Pt confirms that since going home from 04/22 she has been seen by [facility] OT/PT and this has been helpful. She says she had appt with them this Tuesday. Assured her that [facility] had been updated re her hospital admission and that they would resume seeing her when she was able to go home. P: pt expects to go home at d/ to continue her Res/Care community living program and with the addition of [facility] services. DCPlanning team will be following for prn assistance and coordination. CM Discharge Assessment Start: 05/22/18 15:08 Freq: Status: Active Protocol: Document 05/22/18 15:08 ITV (Rec: 05/22/18 15:25 ITV [id number]) Discharge Planning Assessment Advance Directives? Yes Advance Directives on File Yes History Provided By Patient Medical Record Has Patient been admitted in last 30 Yes days? Comment pt was at 04/19/2018 to d/ home 04/22:OBS admission status Prior Living Arrangements Apartment/Condo Household Members none Type of transporation used prior to Relies on Others admit Comment caregiver, community support and public transportation Is patient alert and oriented? Yes: has limitations related her to DD/neurologic condition Community Services used prior to Physical Therapy admission: Occupational Therapy Home Delivered Meals Comment [facility] is currently seeing pt for PT/OT services. She gets Meals on Wheels as part of their overall Res-Care program Pt's daughter Khalida lives close by pt and provides support to pt. DME Already Rented / Owned FWW / Walker Comment uses [employer] Comment [facility] up on contact information and fax clinicals to Medicaid/DD Res Care CM: [place]. Comment no actual barriers noted: just needs good coordination of services. Pt is a very able historian of her Res Care care plan Discharge Plan Home with Home Health If patient plan is home with home health will need: resume HH orders : Has signed face to face form been and followup with [facility] completed? Whiteboard Updated in Patient Room with Yes name and ext. # of [employer] Boards Solder Leveler Review Status In Process Next Review Type Continued Stay Review
--- NOTE | 2018-05-22 15:35 | PT.IIE ---
Current Diagnoses Pleurodynia (05/21/18) Surgical History (Last Reviewed 05/22/18 @ 08:10 by Albert Bran MD) History of spinal surgery (Acute) History of (Inactive) History of ventral hernia repair (Inactive) Medical History (Last Reviewed 05/22/18 @ 08:10 by Albert Bran MD) History of stroke (Acute) Morbid obesity with BMI of 45.0-49.9, adult (Acute) Type 2 diabetes mellitus (Acute) Physical Therapy Inpatient Evaluation/Re-Eval M1 PT/OT-IP Prior Functional Status Start: 05/22/18 16:21 Freq: NEEDED Status: Active Protocol: Document 05/22/18 15:35 MDD (Rec: 05/22/18 16:33 MDD [id number]) Medical Review Prior Functional Status Medical History Reviewed Yes Communication normal Mobility and Gait independent with FWW Activities of Daily Living and IADL's independent with showering, dressing. Has a caregiver that comes in 4 days per week, 8-4 that assists with cleaning, taking her to appointments and groceries. Her daughter lives in the same apartment complex and has been assisting as well. Social History Household Members none Living Arrangements Apartment/Condo Number of Floors (Floors) One Floor Number of Stairs To Enter/Railing? none Home Environment Standard Height Toilet Tub/Shower Home Equipment Front Wheel Walker Tub Transfer Bench Grab Bars Near Toilet Grab Bars In Shower Employment Status Retired Additional Social History Comment Pt lives in [place]. Her daughter lives in the same complex and is very supportive . M2 PT-IP Current Condition Start: 05/22/18 16:21 Freq: NEEDED Status: Active Protocol: Document 05/22/18 15:35 MDD (Rec: 05/22/18 16:33 MDD [id number]) Physical Therapy Current Condition Current Condition Evaluation Date 05/22/18 Treatment Diagnosis SOB Onset Date 05/21/18 M3 PT-IP Subjective Start: 05/22/18 16:21 Freq: NEEDED Status: Active Protocol: Document 05/22/18 15:35 MDD (Rec: 05/22/18 16:33 MDD [id number]) Subjective Physical Therapy Visit Type Type Initial Evaluation Visit Start Time 15:05 Visit Stop Time 15:35 Total Visit Minutes 30 Number of VENTILATION MECHANIC Visits 0 Therapy Pain Assessment Pain When Pain Assessed At Rest Pain Present Pain Present Pain Reported Location Chest Intensity 4 Scale Used Numeric (1 - 10) Description Aching Sharp Pain Management Techniques Timing of Activity with Medications M4 PT-IP Mobility and Gait Start: 05/22/18 16:21 Freq: NEEDED Status: Active Protocol: Document 05/22/18 15:35 MDD (Rec: 05/22/18 16:33 MDD [id number]) PT-Bed Mobility Assessment Rolling Type of Rolling Roll to Left Level of Assist Contact Guard Assistance Supine to Sit Supine to Sit Minimal Assistance 1 Person Assistance Bedrails Sit to Supine Sit to Supine Standby Assistance Bedrails Scooting Scooting to Edge of Bed Standby Assistance PT-Transfer Assessment Sit to and From Stand Sit to and from Stand Standby Assistance Equipment Transfer Assistive Device Gait Belt Front Wheeled Walker Gait Assessment Gait Gait Assistance Required: Standby Assistance Distance (Feet) (feet) 80 Assistive Devices Assistive Device Gait Belt Front Wheeled Walker Gait Deviations General Gait Pattern Decreased Stride Length Decreased Feet Clearance Wide Based Gait Factors Limiting Gait Function Factors Limiting Gait Function Decreased Strength Pain Comments Gait Comments O2 sats on RA at rest: 97% with HR 96 seated EOB: 98%, HR 104 with and after activity: 97%, HR varied from 98-110. PT-Balance Assessment Sitting Balance and Reactions Static Sitting Balance Ability Normal Dynamic Sitting Balance Ability Normal M5 PT-IP Objective Assessments Start: 05/22/18 16:21 Freq: NEEDED Status: Active Protocol: Document 05/22/18 15:35 MDD (Rec: 05/22/18 16:33 MDD [id number]) Orientation Orientation/Cognition Level of Alertness Alert Orientation Name Age Birthday Month Date Year Day of Week Place Situation Language Function Ability No Deficits Noted Safety Awareness Understands Safety Issues Memory Description No Deficits Noted Gross Range of Motion Lower Extremity ROM Assessment Within Functional Limits Strength Lower Extremity Strength Assessment Right Impaired Knee R knee extension 4/5 Ankle R ankle df 4/5, Comments Strength Comments Pt with recent history of CVA affecting R LE with drop foot, which is much improved and mostly resolved. Coordination Assessment Gross Coordination Gross Coordination WNL Sensation Assessment Sensation Gross Sensation WNL Light Touch Intact M6 PT-IP Treatment Start: 05/22/18 16:21 Freq: NEEDED Status: Active Protocol: Document 05/22/18 15:35 MDD (Rec: 05/22/18 16:33 MDD [id number]) Physical Therapy Treatment Education Education Provided Safety M7 PT-IP Assessment and Plan Start: 05/22/18 16:21 Freq: NEEDED Status: Active Protocol: Document 05/22/18 15:35 MDD (Rec: 05/22/18 16:33 MDD [id number]) PT Summary Assessment and Plan Potential Rehabilitation Potential Good Status of Condition at Evaluation Stable Summary Impairments Pain Balance Bed Mobility Gait Activity Tolerance Progress Towards Goals Progressing Toward Goals Assessment Summary Pt demonstrates ability to perform bed mobility with SBA to min A today. Required only SBA for gait, but fatigues easily. She is currently presenting well below her functional baseline and would benefit from inpatient PT to maximize function prior to d/c home. She has good support in place in her home and was working with home health PT/OT prior to hospitalization. Goals Bed Mobility Goal Independent Transfer Goal Independent Gait Goal Independent Gait Distance 50 Days to Meet Goals 3 Frequency of Treatment Frequency Of Treatment Once a Day Treatment Plan Physical Therapy Treatment Plan Bed Mobility Training Transfer Training Gait Training Therapeutic Exercise Other Recommendations and Next Treatment Progress bed mobility training Focus , improve gait endurance and activity tolerance as able. Recommendations To Nursing Amount of Assist Needed 1 Person Assist Discharge Recommendations PT Discharge Recommendations Home Home with Assistance Home Health
[2018-05-22] MEDS: GABAPENTIN 600 MG TABLET PO (15:47)
[2018-05-22] MEDS: ACETAMINOPHEN 325 MG TABLET 650 MG PO (20:41)
[2018-05-22] MEDS: TRAZODONE 100 MG TABLET PO (20:41)
[2018-05-22] MEDS: ALPRAZolam 0.5 MG TABLET PO (21:32)
[2018-05-22] MEDS: METOPROLOL 25 MG TABLET PO (22:05)
[2018-05-22] MEDS: LORazepam 1 MG TABLET PO (22:07)
--- NOTE | 2018-05-22 22:19 | PC.NURSE ---
ORQUIDEA SHIFT/ HIGH HEART RATE/SOB: Patient had been doing well this shift until about 2100 when patient got up to bathroom to void. Patient HR elevated to 140s, patient denying chest pain but complaining of SOB. Patient returned to bed and oxygen 2L NC applied. In bed patient HR 120s, patient wheezing. Dr. Bran notified and new orders received. EKG results given to Dr. Bran who reports that she is in a ST with enlongated 1 degree AV block. Patient now resting comfortably in bed, HR 101. No acute distress, bed alarm on, call light in reach. Will continue to monitor. Telemetry on.
[2018-05-23] VITALS (10 sets, daily range): BP systolic 99–129; BP diastolic 48–68; PULSE 76–86; RESP 12–17; TEMP 36.5–37.2; O2SAT 91–98
[2018-05-23] MEDS: MORPHINE 2 MG/ML INJ IV ×4 (00:19→13:34)
[2018-05-23 05:40] LABS: Add Manual Diff / Slide Review NO; Basophils Percent Auto 0.7 % (0-2); Eosinophils Percent Auto 3.9 % (2-4); Hematocrit 38.5 % (36-46); Hemoglobin 12.8 g/dL (12.0-16.0); Lymphocytes Percent Auto 31.7 % (25-40); Mean Corpuscular HGB Conc 33.4 % (30-36); Mean Corpuscular Hemoglobin 29.4 PG (26-34); Mean Corpuscular Volume 88.2 fL (80-100); Monocytes Percent Auto 12.5 % (3-14); Neutrophils Absolute Auto 2800 /uL (3000-5900); Neutrophils Percent Auto 51.2 % (50-75); Platelet Count 291 X10^3/uL (150-400); Red Blood Cell Count 4.36 X10^6/uL (4.0-5.2); Red Cell Distribution Width 15.6 % (11.6-14.8); White Blood Cell Count 5.5 X10^3/uL (4.5-11.0)
[2018-05-23] MEDS: PANTOPRAZOLE 20 MG TABLET PO (05:42)
[2018-05-23 06:08] LABS: BUN Creatinine Ratio 18.2 (6-22); Blood Urea Nitrogen 20 mg/dL (7-17); Carbon Dioxide 31 mmol/L (22-32); Chloride 103 mmol/L (98-107); Estimated Glomerular Filt Rate 49.7 mL/min (>60); Glucose 118 mg/dL (80-110); HEMOLYSIS < 15 (0-50); Potassium 4.6 mmol/L (3.4-5.1); Sodium 142 mmol/L (137-145)
[2018-05-23] MEDS: buPROPion SR 150 MG TAB 300 MG PO (09:21)
[2018-05-23] MEDS: ENOXAPARIN 40 MG/0.4 ML SYRINGE SUBCUT (09:22)
[2018-05-23] MEDS: CALCIUM CARBONATE 500 MG TAB 2000 MG PO ×2 (09:22→13:11)
[2018-05-23] MEDS: FENOFIBRATE 48 MG TABLET PO (09:23)
[2018-05-23] MEDS: CLOPIDOGREL 75 MG TABLET PO (09:23)
[2018-05-23] MEDS: SERTRALINE 50 MG TABLET 100 MG PO (09:23)
--- NOTE | 2018-05-23 11:44 | OT.IP.TRT ---
Current Diagnoses Pleurodynia (05/21/18) Occupational Therapy Treatment Note M3 OT- IP Subjective and Pain Start: 05/22/18 13:20 Freq: Status: Active Protocol: Document 05/23/18 11:42 GURMEET (Rec: 05/23/18 11:43 GURMEET [id number]) OT- Subjective Occupational Therapy Visit Type Type Administrative Note Visit Start Time 11:00 Notes OT referral received on this 68 yr old pt admitted for multi level anterior cervical fusion. Per discussion with P. T. and nursing, pt is independent in his room and does not feel he needs any OT services at this time. Pt familiar with precautions and adapted ADLS from previous C spine surgery. OT to sign off. No charge.
--- NOTE | 2018-05-23 12:04 | CM.DPC ---
Addendum entered by Pebbles Burkett R.N. 05/23/18 15:29: Patient was discharged today, faxed information to [facility], daughter picked up. Had her sign updated IMM form. Original Note: DCP Cont: Spoke to hospitalist, patient may be discharging today. Has been using [facility] for O.T/P.T. Asked her to put in resumption order for patient when she writes discharge. Patient stated that daughter is in [place], and will not be able to pick her up later today. Offered transportation assist, but wishes to wait until daughter. Pending discharge orders at this time. When received, will contact [facility]. P: Patient may be discharged home today. Will continue with home therapy. Pebbles Burkett RN/Collections Manager
--- NOTE | 2018-05-23 12:25 | OT.IP.EVAL ---
Current Diagnoses Pleurodynia (05/21/18) Past Medical History (Last Reviewed 05/22/18 @ 08:10 by Albert Bran MD) History of stroke (Acute) Morbid obesity with BMI of 45.0-49.9, adult (Acute) Type 2 diabetes mellitus (Acute) Surgical History (Last Reviewed 05/22/18 @ 08:10 by Albert Bran MD) History of spinal surgery (Acute) History of (Inactive) History of ventral hernia repair (Inactive) Occupational Therapy Inpatient Evaluation/Re-Eval M1 PT/OT-IP Prior Functional Status Start: 05/22/18 16:21 Freq: NEEDED Status: Active Protocol: Document 05/23/18 12:25 PJGulshan (Rec: 05/24/18 15:20 PJM [id number]) Medical Review Prior Functional Status Medical History Reviewed Yes Diet/Fluid Consistency Regular Communication WFL, pt has hx of expressive aphasia from previous stroke with occasional word finding problems noted Mobility and Gait independent with FWW Activities of Daily Living and IADL's independent with showering, dressing, toileting. Has a caregiver that comes in 4 days per week, 8-4 that assists with cleaning, taking her to appointments and groceries. Her daughter lives in the same apartment complex and has been assisting as well. Social History Household Members none Living Arrangements Apartment/Condo Number of Floors (Floors) One Floor Number of Stairs To Enter/Railing? none Home Environment Standard Height Toilet Tub/Shower Home Equipment Four Wheel Walker Tub Transfer Bench Leg Drawer In Dobby Loom Long Handled Sponge Transportation Economics Teacher Sock Aid Grab Bars Near Toilet Grab Bars In Shower Employment Status Retired Additional Social History Comment Pt lives in [place]. Her daughter lives in the same complex and is very supportive . M2 OT-IP Current Condition Start: 05/22/18 13:20 Freq: Status: Active Protocol: Document 05/23/18 12:25 PJGulshan (Rec: 05/24/18 15:20 PJM [id number]) Occupational Therapy Current Condition Current Condition Evaluation Date 05/23/18 Treatment Diagnosis assess for ability to return home alone after episode of chest pain; work up negative for PE or cardiac causes Diagnosis Onset Date 05/22/18 Post Operative Precautions Other Precautions fall risk M3 OT- IP Subjective and Pain Start: 05/22/18 13:20 Freq: Status: Active Protocol: Document 05/23/18 12:25 PJM (Rec: 05/24/18 15:20 [facility] [id number]) OT- Subjective Occupational Therapy Visit Type Type Initial Evaluation Visit Start Time 12:00 Visit Stop Time 12:25 Total Visit Minutes 25 Occupational Therapy Visit Comments Patient Comments I still have some pain on the L side of my chest. Patient/Caregiver Goals to go home OT Pain Assessment Pain When Pain Assessed After Treatment Pain Present Pain Present Pain Reported Location Chest Intensity 6 Scale Used Numeric (1 - 10) Description Aching Management Techniques Distraction Timing of Activity with Medications M4 OT- IP ADL's Start: 05/22/18 13:20 Freq: Status: Active Protocol: Document 05/23/18 12:25 PJM (Rec: 05/24/18 15:20 [facility] [id number]) OT [id number]-[id number] General Evaluation Self-Feeding Ability Independent OT ADL-Grooming General Evaluation Grooming Ability Independent OT ADL-Oral Care General Eval Oral Care Ability Independent OT ADL-Dressing General Eval Upper Body Dressing Ability Independent Areas Needing Assistance Bra Pull-Over Shirt Underpants/Brief Pants/Shorts Socks Shoes Assistive Devices Dressing Assistive Devices Transportation Economics Teacher Sock Aid Comments OT Dressing Comments Pt indep sitting in chair and standing to pull pants over hips with no LOB. OT ADL-Toileting General Evaluation Toileting Ability Independent OT ADL-Bathing Comments OT Bathing Comments Pt declines to shower here. Caregivers provide SBA at home . M5 OT- IP IADL's Start: 05/22/18 13:20 Freq: Status: Active Protocol: Document 05/23/18 12:25 PJM (Rec: 05/24/18 15:20 [facility] [id number]) OT-Instrumental Activities of Daily Living Deficits IADL Deficits Identified Deficits Home Safety Awareness Awareness of Need for Assistance at Home Good Awareness Ability to Problem Solve Emergency Able to Problem Solve Situations Medication Management Medication Management No Deficits Identified Medication Management Comments Pt states she sets up own meds in pillbox. Money Management Money Management No Deficits Identified Money Management Comments Pt states she manages own finances. Meal Preparation Meal Preparation Caregiver Provides Assist Child Development Specialist Child Development Specialist Caregiver Provides Assist Driving Driving Caregiver Provides Assist M6 OT- IP Functional Cognition Start: 05/22/18 13:20 Freq: Status: Active Protocol: Document 05/23/18 12:25 PJM (Rec: 05/24/18 15:20 PJ [id number]) Cognitive Factors Limiting Selfcare Function Cognitive Ability Level of Alertness Alert Patient Orientation Name Age Birthday Month Date Year Day of Week Place Situation Ability to Follow Commands Able to Follow One Step Commands Cognitive Comments Cognitive Assessment Comments Pt appears to be at baseline with no new deficits identified. OT- Vision and Hearing OT- Hearing Assessment OT- Hearing Assessment WFL OT- Vision Assessment Visual Acuity Glasses All The Time M7 OT- IP Mobility and Balance Start: 05/22/18 13:20 Freq: Status: Active Protocol: Document 05/23/18 12:25 PJM (Rec: 05/24/18 15:20 PJ [id number]) OT-Transfer Assessment Sit to and From Stand Sit to and from Stand Independent Transfers Transfer Ability Independent Technique Transfer Destination Chair Toilet Devices Transfer Assistive Devices Front Wheeled Walker OT- Gait Assessment Comments Gait Ability Comments See P.T. notes OT- Balance Assessment Sitting Balance and Reactions Static Sitting Balance Ability Good Dynamic Sitting Balance Ability Good Standing Balance and Reactions Static Standing Balance Ability Good Dynamic Standing Balance Ability Good Comments Other Balance Tests/Deviations/Treatment during lower bodu clothing : management using FWW M8 OT- IP Objective Assessments Start: 05/22/18 13:20 Freq: Status: Active Protocol: Document 05/23/18 12:25 PJM (Rec: 05/24/18 15:20 [facility] [id number]) OT Gross Range of Motion Upper Extremity Range of Motion Assessment Within Functional Limits OT Strength Upper Extremity Strength Assessment Within Functional Limits OT- Coordination Assessment Comments Coordination Comments BUE WFL for self care OT Sensation Assessment Comments Summary Comments Pt denies deficits in BUE's Edema Edema Absent M9 OT- IP Assessment and Plan Start: 05/22/18 13:20 Freq: Status: Active Protocol: Document 05/23/18 12:25 PJM (Rec: 05/24/18 15:20 [facility] [id number]) OT Summary Assessment and Plan Potential Analytic Complexity at Evaluation Low Summary Progress Towards Goals Safe For Discharge Assessment Summary Low complexity OT assessment complete with no new deficits identified in BUE sensorimotor function or self care abilities. Pt appears to be at baseline level of function with no OT goals identified for this admission. Pt safe to return home with caregiver assist 4 days/week, 8am-4pm, from OT standpoint. Frequency of Treatment Frequency Of Treatment Discharge Discharge Recommendations OT Discharge Recommendations Home with Assistance Other Discharge Recommendations No further OT services needed.
--- NOTE | 2018-05-23 12:46 | PT.IPTN ---
Current Diagnoses Pleurodynia (05/21/18) Physical Therapy Treatment Note M2 PT-IP Current Condition Start: 05/22/18 16:21 Freq: NEEDED Status: Active Protocol: Document 05/22/18 15:35 MDD (Rec: 05/22/18 16:33 MDD [id number]) Physical Therapy Current Condition Current Condition Evaluation Date 05/22/18 Treatment Diagnosis SOB Onset Date 05/21/18 M3 PT-IP Subjective Start: 05/22/18 16:21 Freq: NEEDED Status: Active Protocol: Document 05/23/18 11:37 CLB (Rec: 05/23/18 12:46 CLB [id number]) Subjective Physical Therapy Visit Type Type Treatment Note Visit Start Time 11:37 Visit Stop Time 12:00 Total Visit Minutes 23 Number of ARMATURE REWINDER Visits 1 Physical Therapy Visit Comments Patient Comments Pt willing to do therapy. Therapy Pain Assessment Pain When Pain Assessed At Rest Pain Present Pain Present Denied Pain M4 PT-IP Mobility and Gait Start: 05/22/18 16:21 Freq: NEEDED Status: Active Protocol: Document 05/23/18 11:37 CLB (Rec: 05/23/18 12:46 CLB [id number]) PT-Bed Mobility Assessment Rolling Type of Rolling Roll to Left Level of Assist Standby Assistance Supine to Sit Supine to Sit Minimal Assistance Sit to Supine Sit to Supine Standby Assistance Scooting Scooting to Edge of Bed Standby Assistance PT-Transfer Assessment Sit to and From Stand Sit to and from Stand Standby Assistance Equipment Transfer Assistive Device Gait Belt Front Wheeled Walker Transfers Transfer Destination Chair Transfer Technique after ambulation Transfer Ability Level of Assist Contact Guard Assistance Comments Mobility Comments Pt needed Min A after log roll to boost to elbow then pt was able to sit herself upright with CGA with rails and HOB down. Gait Assessment Gait Gait Assistance Required: Standby Assistance Distance (Feet) (feet) 120 Assistive Devices Assistive Device Gait Belt Front Wheeled Walker Gait Deviations General Gait Pattern Decreased Stride Length Decreased Feet Clearance Wide Based Gait Factors Limiting Gait Function Factors Limiting Gait Function Decreased Strength Pain Comments Gait Comments O2 sats on RA after bed mobility 90% with HR 94, O2 sat with activity 94%, HR 96. Pt ambulates very slowly and with good safety awareness. Stair Climbing Assessment Comments Stair Climbing Comments Pt has no stairs. PT-Balance Assessment Sitting Balance and Reactions Static Sitting Balance Ability Normal Dynamic Sitting Balance Ability Normal M5 PT-IP Objective Assessments Start: 05/22/18 16:21 Freq: NEEDED Status: Active Protocol: Document 05/22/18 15:35 MDD (Rec: 05/22/18 16:33 MDD [id number]) Orientation Orientation/Cognition Level of Alertness Alert Orientation Name Age Birthday Month Date Year Day of Week Place Situation Language Function Ability No Deficits Noted Safety Awareness Understands Safety Issues Memory Description No Deficits Noted Gross Range of Motion Lower Extremity ROM Assessment Within Functional Limits Strength Lower Extremity Strength Assessment Right Impaired Knee R knee extension 4/5 Ankle R ankle df 4/5, Comments Strength Comments Pt with recent history of CVA affecting R LE with drop foot, which is much improved and mostly resolved. Coordination Assessment Gross Coordination Gross Coordination WNL Sensation Assessment Sensation Gross Sensation WNL Light Touch Intact M6 PT-IP Treatment Start: 05/22/18 16:21 Freq: NEEDED Status: Active Protocol: Document 05/22/18 15:35 MDD (Rec: 05/22/18 16:33 MDD [id number]) Physical Therapy Treatment Education Education Provided Safety M7 PT-IP Assessment and Plan Start: 05/22/18 16:21 Freq: NEEDED Status: Active Protocol: Document 05/23/18 11:37 CLB (Rec: 05/23/18 12:46 CLB [id number]) PT Summary Assessment and Plan Summary Assessment Summary Pt able to perform bed mobility SBA-Min A. Pt able to increase ambulation w/o SOB or increased fatigue and didn' t need rest breaks. Pt has good safety awareness and seems able to d/c home with assist when medically stable. Goals Bed Mobility Goal Independent Transfer Goal Independent Gait Goal Independent Gait Distance 50 Days to Meet Goals 3 Frequency of Treatment Frequency Of Treatment Once a Day Treatment Plan Physical Therapy Treatment Plan Bed Mobility Training Transfer Training Gait Training Therapeutic Exercise Recommendations To Nursing Amount of Assist Needed 1 Person Assist Discharge Recommendations PT Discharge Recommendations Home Home with Assistance Home Health
[2018-05-23] MEDS: KETOROLAC 30 MG/ML VIAL IV (13:10)
--- NOTE | 2018-05-23 14:45 | PM.DS.1 ---
History of Present Illness Date Patient Seen: 05/23/18 Chief complaint: SOB Narrative: VERY PLEASANT GENTLEMAN WAS ADMITTED FOLLOWING PERIOD OF CONFUSION YESTERDAY DIFFICULTY FINDING WORDS SOMEWHAT DIZZY AND DISORIENTED IN THE EARLIER PART OF LAST EVENING HE COULD NOT GET UP FROM SLIDING DOWN A [place] AND FOUND IT DIFFICULT TO GET MOBILE AND BACK TO HIS BED AND GRADUALLY IMPROVED AFTER 2 3 HR THIS MORNING IS MUCH BETTER BUT STILL NOT FULLY BACK TO NORMAL SO HE PRESENT TO THE ER HE HAD A RECENT TRIP ON A [facility]ISE [facility] [place] TO [facility] AND IT DOES NOT LOOK LIKE THERE WAS ANY MEDICAL PROBLEM AT THAT TIME THOUGH STARTED DEVELOPING SWELLING OF HIS LEGS MOST LIKELY DUE TO THE TYPE OF FOOD HE WAS EATING WHICH WAS SOFT TISSUE IN COMPLAIN OF ANY CHEST PAIN AT PALPITATIONS HE HAS UNDERLYING ATRIAL FIBRILLATION ALSO HAS A PACEMAKER WAS RECENTLY REVIEWED IN CARDIOLOGY CLINIC IN [place] AND APPARENTLY HAD A ECHOCARDIOGRAM HE HAS A VALVULAR REGURGITATION WHICH ACCORDING TO THE PATIENT AND HIS HAVE HAS BECOME SLIGHTLY WORSE THAN THE PREVIOUS TIME BUT THE SURGICAL DRESSING MAKER DID NOT MAKE ANY NEW RECOMMENDATION THE PATIENT APPARENTLY HAS HAD ISSUES WITH FINDING WORDS AND HAD THIS KIND OF PROBLEMS IN THE PAST AND WAS SAID TO BE DUE TO MORE SPIKE IN HIS HEART RATE FROM HIS ATRIAL FIBRILLATION SINCE HE WAS STARTED ON METOPROLOL AND HE HAS NOT HAD THOSE SYMPTOMS MORE RECENTLY ABOUT A FEW MONTHS AGO TO BEGINNING THIS YEAR WAS DIAGNOSED WITH THE RHEUMATOID ARTHRITIS BY DR. GUAJARDO PRIOR TO THAT WAS HAVING LOT OF JOINT PAINS SHOULDER ELBOW WRISTS ANKLE KNEE WHICH WAS INITIALLY TREATED A POSSIBLE GOUT BUT SINCE HE DID NOT RESPOND TO TREATMENT WITH PREDNISONE AND COLCHICINE HE WENT TO SEE A MODEL MAKER SCALE AND WAS DIAGNOSED WITH RHEUMATOID ARTHRITIS WAS STARTED ON METHOTREXATE FEW WEEKS AGO Discharge Providers Date of admission: 05/21/18 21:29 Primary care physician: Man Melara MD Consults: 05/22/18 08:17 Consult to Discharge Planning Routine Comment: 05/22/18 12:07 Consult to Occupational Therapy Evaluate & Treat Comment: Physician Instructions: Evaluate and treat Consult to Physical Therapy Evaluate & Treat Comment: Physician Instructions: Evaluate and Treat 05/23/18 12:33 Consult to Home Health Routine Comment: Reason For Exam: history of stroke 05/23/18 14:27 Consult to Home Health Routine Comment: Physical and Occupational Therapy Reason For Exam: Resume Home Health Discharge provider: Safia Alexis MD Summary Discharge Diagnosis: Chest pain-non cardiac Morbid Obesity Hyperlipidemia History of Stroke Diabetes Mellitus Depression/Anxiety Hospital Course: Patient was admitted to the hospital for evaluation of pleuritic chest pain. CTA was negative for large PE. Patient was ruled out for [place]. She continued to have chest wall pain that was reproducible with palpation. She was given one dose of Tordal and discharged home to continue on NSAIDS for further treatment. She was deemed appropriate for discharge and discharged home. Status at Discharge Functional status at discharge: uses cane/walker Overall status at discharge: patient is back to baseline Time Spent with Patient Less than 30 minutes Exam Vital Signs (past 8 hours): - 05/23/18 07:25 05/23/18 07:40 05/23/18 08:30 Temperature 97.7 F Pulse Rate 78 Respiratory Rate 12 Blood Pressure 99/58 L Pulse Oximetry 94 96 97 05/23/18 09:05 05/23/18 12:00 Temperature 97.7 F Pulse Rate 76 Respiratory Rate 16 Blood Pressure 105/48 L Pulse Oximetry 95 91 Oxygen Delivery Method Room Air Oxygen Flow Rate 2 Narrative Exam Narrative: Pleasant female in no acute distress Lungs: Clear to asucultation CV: RRR nl Sl S2 Abd: obese soft/non tender Ext: 1+ edema Objective Labs Result Diagrams: 05/23/18 05:01 05/23/18 05:01 Labs: Laboratory Results - last 24 hr 05/23/18 05/23/18 05:01 05:01 WBC 5.5 RBC 4.36 Hgb 12.8 Hct 38.5 MCV 88.2 MCH 29.4 MCHC 33.4 RDW 15.6 H Plt Count 291 Neut % (Auto) 51.2 Lymph % (Auto) 31.7 [place] % (Auto) 12.5 Eos % (Auto) 3.9 Baso % (Auto) 0.7 Neut # (Auto) 2800 L Sodium 142 Potassium 4.6 Chloride 103 Carbon Dioxide 31 BUN 20 H Creatinine 1.10 H Estimated GFR 49.7 L BUN/Creatinine Ratio 18.2 Glucose 118 H Calcium 11.0 H Discharge Plan Discharge Plan Patient Disposition: Home Health Service Provider Discharge Instructions Diet: Low-sodium Activity: as tolerated Discharge Data Primary Care Provider: Man Melara Attending Provider: Albert Bran Admit Date/Time: 05/21/18 21:29 Quality VTE Deep Vein Thrombosis/Pulmonary Embolism Present on Admission: No
--- NOTE | 2018-05-23 14:49 | P.DS_ITS ---
History of Present Illness Date Patient Seen: 05/23/18 Chief complaint: SOB Narrative: VERY PLEASANT GENTLEMAN WAS ADMITTED FOLLOWING PERIOD OF CONFUSION YESTERDAY DIFFICULTY FINDING WORDS SOMEWHAT DIZZY AND DISORIENTED IN THE EARLIER PART OF LAST EVENING HE COULD NOT GET UP FROM SLIDING DOWN A [place] AND FOUND IT DIFFICULT TO GET MOBILE AND BACK TO HIS BED AND GRADUALLY IMPROVED AFTER 2 3 HR THIS MORNING IS MUCH BETTER BUT STILL NOT FULLY BACK TO NORMAL SO HE PRESENT TO THE ER HE HAD A RECENT TRIP [place] TO [facility] AND IT DOES NOT LOOK LIKE THERE WAS ANY MEDICAL PROBLEM AT THAT TIME THOUGH STARTED DEVELOPING SWELLING OF HIS LEGS MOST LIKELY DUE TO THE TYPE OF FOOD HE WAS EATING WHICH WAS SOFT TISSUE IN COMPLAIN OF ANY CHEST PAIN AT PALPITATIONS HE HAS UNDERLYING ATRIAL FIBRILLATION ALSO HAS A PACEMAKER WAS RECENTLY REVIEWED IN CARDIOLOGY CLINIC IN [place] AND APPARENTLY HAD A ECHOCARDIOGRAM HE HAS A VALVULAR REGURGITATION WHICH ACCORDING TO THE PATIENT AND HIS HAVE HAS BECOME SLIGHTLY WORSE THAN THE PREVIOUS TIME BUT THE PODIATRIC FOOT AND ANKLE SPECIALIST DID NOT MAKE ANY NEW RECOMMENDATION THE PATIENT APPARENTLY HAS HAD ISSUES WITH FINDING WORDS AND HAD THIS KIND OF PROBLEMS IN THE PAST AND WAS SAID TO BE DUE TO MORE SPIKE IN HIS HEART RATE FROM HIS ATRIAL FIBRILLATION SINCE HE WAS STARTED ON METOPROLOL AND HE HAS NOT HAD THOSE SYMPTOMS MORE RECENTLY ABOUT A FEW MONTHS AGO TO BEGINNING THIS YEAR WAS DIAGNOSED WITH THE RHEUMATOID ARTHRITIS BY DR. GUAJARDO PRIOR TO THAT WAS HAVING LOT OF JOINT PAINS SHOULDER ELBOW WRISTS ANKLE KNEE WHICH WAS INITIALLY TREATED A POSSIBLE GOUT BUT SINCE HE DID NOT RESPOND TO TREATMENT WITH PREDNISONE AND COLCHICINE HE WENT TO SEE A HELP DESK TEAM LEADER AND WAS DIAGNOSED WITH RHEUMATOID ARTHRITIS WAS STARTED ON METHOTREXATE FEW WEEKS AGO Discharge Providers Date of admission: 05/21/18 21:29 Primary care physician: Man Melara MD Consults: 05/22/18 08:17 Consult to Discharge Planning Routine Comment: 05/22/18 12:07 Consult to Occupational Therapy Evaluate & Treat Comment: Physician Instructions: Evaluate and treat Consult to Physical Therapy Evaluate & Treat Comment: Physician Instructions: Evaluate and Treat 05/23/18 12:33 Consult to Home Health Routine Comment: Reason For Exam: history of stroke 05/23/18 14:27 Consult to Home Health Routine Comment: Physical and Occupational Therapy Reason For Exam: Resume Home Health Discharge provider: Safia Alexis MD Summary Discharge Diagnosis: Chest pain-non cardiac Morbid Obesity Hyperlipidemia History of Stroke Diabetes Mellitus Depression/Anxiety Hospital Course: Patient was admitted to the hospital for evaluation of pleuritic chest pain. CTA was negative for large PE. Patient was ruled out for [place]. She continued to have chest wall pain that was reproducible with palpation. She was given one dose of Tordal and discharged home to continue on NSAIDS for further treatment. She was deemed appropriate for discharge and discharged home. Status at Discharge Functional status at discharge: uses cane/walker Overall status at discharge: patient is back to baseline Time Spent with Patient Less than 30 minutes Exam Vital Signs (past 8 hours): - 05/23/18 07:25 05/23/18 07:40 05/23/18 08:30 Temperature 97.7 F Pulse Rate 78 Respiratory Rate 12 Blood Pressure 99/58 L Pulse Oximetry 94 96 97 05/23/18 09:05 05/23/18 12:00 Temperature 97.7 F Pulse Rate 76 Respiratory Rate 16 Blood Pressure 105/48 L Pulse Oximetry 95 91 Oxygen Delivery Method Room Air Oxygen Flow Rate 2 Narrative Exam Narrative: Pleasant female in no acute distress Lungs: Clear to asucultation CV: RRR nl Sl S2 Abd: obese soft/non tender Ext: 1+ edema Objective Labs Result Diagrams: 05/23/18 05:01 05/23/18 05:01 Labs: Laboratory Results - last 24 hr 05/23/18 05/23/18 05:01 05:01 WBC 5.5 RBC 4.36 Hgb 12.8 Hct 38.5 MCV 88.2 MCH 29.4 MCHC 33.4 RDW 15.6 H Plt Count 291 Neut % (Auto) 51.2 Lymph % (Auto) 31.7 [place] % (Auto) 12.5 Eos % (Auto) 3.9 Baso % (Auto) 0.7 Neut # (Auto) 2800 L Sodium 142 Potassium 4.6 Chloride 103 Carbon Dioxide 31 BUN 20 H Creatinine 1.10 H Estimated GFR 49.7 L BUN/Creatinine Ratio 18.2 Glucose 118 H Calcium 11.0 H Discharge Plan Discharge Plan Patient Disposition: Home Health Service Provider Discharge Instructions Diet: Low-sodium Activity: as tolerated Discharge Data Primary Care Provider: Man Melara Attending Provider: Albert Bran Admit Date/Time: 05/21/18 21:29 Quality VTE Deep Vein Thrombosis/Pulmonary Embolism Present on Admission: No
--- NOTE | 2018-05-23 15:01 | PC.NURSE ---
Discharge: Patient feels ready to d/c home. Still had some concerns about her c/p. Her questions were answered by MD and she is to follow up with her regular doctor. Nothing new was found on her tests. Pt seemed satisfied w/MD explanations. Pt was given toradol but reported the med didn't work and was given a dose of morphine prior to d/c home. Dtr here at time med was administered and agreed with patient to receive it. Pt still does have the lt sided c/p at about a 4. Reviewed her chest pain sheet with her, discussed when she should call MD and when to call 911. Pt verb understanding. No new rx. Given d/c packet. Pt d/c home via auto w/dtr.
== END 2018-05-23 13:40 | disposition home health service (06) | DRG 204 ==
LOC: ED 20:34 → AC 20:37
PROVIDERS: Emergency Medicine; Admitting Provider Internal Medicine; Emergency Provider Emergency Medicine; Family Provider Family Medicine; PCP Family Medicine; Visit Provider Internal Medicine
DX: R07.81 Pleurodynia (principal); Z68.42 Body mass index [BMI] 45.0-49.9, adult; E66.01 Morbid (severe) obesity due to excess calories; Z86.73 Personal history of transient ischemic attack (TIA), and cerebral infarction without residual deficits; R51 Headache; E11.9 Type 2 diabetes mellitus without complications; Z79.84 Long term (current) use of oral hypoglycemic drugs; E78.5 Hyperlipidemia, unspecified; F32.9 Major depressive disorder, single episode, unspecified; F41.9 Anxiety disorder, unspecified
CPT/HCPCS: 36415; 71045; 71275; 80048; 80053; 80061; 82962; 83605; 83690; 83880; 84145; 84484; 85025; 85610; 85730; 93005; 93010; 93306; 94760; 96360; 96361; 97116; 97161; 97165; 97530; 99284; 99285; G0378; J1650; J1885; J2270; Q9957; Q9967

== ENCOUNTER 2018-06-18 12:28 | Emergency (ER) | payer MEDICARE, MEDICAID, SELFPAY ==
[2018-05-21 22:03] VITALS: BMI 48.3
[2018-06-18 12:39] VITALS: BP 110/80; PULSE 92; RESP 15; TEMP 36.6; O2SAT 96; BMI 48.5
--- NOTE | 2018-06-18 13:05 | DI.RAD.S_ITS ---
PROCEDURE: XR KNEE LT 3V INDICATIONS: GLF, lt anterior knee pain TECHNIQUE: 3 views of the knee were acquired. COMPARISON: None. FINDINGS: Bones: No fractures or dislocations. No suspicious bony lesions. Soft tissues: No joint effusion. No suspicious soft tissue calcifications. IMPRESSION: No fracture. No osseous lesion. If there are persistent symptoms or clinical suspicion for pathology, then repeat radiographs or advanced imaging (CT, MRI or bone scan) should be considered for further evaluation. Dictated by: Yris Thomson MD, PhD on 06/18/2018 at 13:51 Approved by: Yris Thomson MD, PhD on 06/18/2018 at 13:51
--- NOTE | 2018-06-18 13:20 | ED_ITS ---
HPI - Fall <NEELAM Boogie-BC - Last Filed: 06/18/18 15:00> General Chief Complaint: Fall Stated Complaint: GLF Time Seen by Provider: 06/18/18 12:58 Source: patient Mode of arrival: ambulatory Limitations: no limitations History of Present Illness HPI Narrative: patient presents with chief complaint of left knee pain. She states she had a ground level fall yesterday when she tripped over her cat landed directly on her left knee. She states that she landed on her kitchen health floor. She denies any numbness or tingling of her left leg. She does complain of pain in her left knee. She denies any her head, neck or anything else during the fall. She is adamant that she tripped and fell and she did not lose consciousness or have an episode of syncope. She does complain of bruising noted to her left knee. she has applied ice to her left knee. She did not twist when she fell, did not feel a pop or feel tear. She states that she has an isolated knee injury and did not hit her head neck back or any other body parts. She has been ambulating since the accident with a walker in her home. Related Data Home Medications Medication Instructions Recorded Confirmed clopidogrel [Plavix] 75 mg PO DAILY #0 06/15/17 05/21/18 fenofibrate 54 mg PO DAILY #0 06/15/17 05/21/18 sertraline [Zoloft] 100 mg PO QDAY #0 06/27/17 05/21/18 metformin 500 mg PO BID 02/02/18 05/21/18 bupropion HCl 2 tab PO DAILY 04/19/18 05/21/18 gabapentin 600 mg PO TID 04/19/18 05/21/18 ibuprofen 1 tab PO TID PRN 04/19/18 05/21/18 trazodone 50 - 100 mg PO BEDTIME 04/19/18 05/21/18 calcium carbonate [Calcium 500] 2,000 mg PO QID 05/21/18 05/21/18 magnesium 600 mg PO DAILY 05/21/18 05/21/18 Allergies Allergy/AdvReac Type Severity Reaction Status Date / Time vancomycin Allergy Intermediate Flushing Verified 04/19/18 15:17 Review of Systems <EMANUEL Boogie - Last Filed: 06/18/18 15:00> Review of Systems GENERAL: Denies chills, fatigue, malaise, fever, sweats. HEENT: Denies sinus pain, ear pain, sore throat, difficulty swallowing, dizziness. RESPIRATORY: Denies dyspnea, cough, wheezing, hemoptysis, sputum. CARDIOVASCULAR: Denies chest pain, palpitations, orthopnea, edema, GASTROINTESTINAL: Denies nausea, vomiting, abdominal pain, diarrhea, constipation, melena. : Denies dysuria, frequency, incontinence, hematuria, urinary retention. MUSCULOSKELETAL: see HPI SKIN: See HPI NEUROLOGIC: Denies weakness, headache, numbness, change in speech, confusion, seizures, incoordination. PSYCHIATRIC: No concerning psychosocial issues. 12 point review of systems is negative except for those stated above Exam <NEELAM Boogie-BC - Last Filed: 06/18/18 15:00> Narrative Exam Narrative: GENERAL: Obese elderly lady lying on stretcher. HEAD: Atraumatic. Normocephalic. No temporal or scalp tenderness. EYES: Pupils equal round and reactive. Extraocular motions intact. No scleral icterus. No injection or drainage. ENT: Nose without bleeding, purulent drainage or septal hematoma. Throat without erythema, tonsillar hypertrophy or exudate. Uvula midline. Airway patent. NECK: Trachea midline. No JVD or lymphadenopathy. Supple, nontender, no meningeal signs. CARDIOVASCULAR: Regular rate and rhythm without murmurs, gallops, or rubs. RESPIRATORY: Clear to auscultation. Breath sounds equal bilaterally. No wheezes , rales, or rhonchi. GASTROINTESTINAL: Abdomen soft, non-tender, nondistended. No hepato-splenomegaly , or palpable masses. No guarding. EXTREMITIES: Pedal pulses positive left foot. Generalized pain to palpation left knee. No laxity palpated on varus stress test, valgus test rest, anterior posterior drawer test BACK: Nontender without deformity or crepitance. No flank tenderness. NEURO: AOx3. SKIN: Approximately 322 cm of ecchymosis noted superior to left knee. Slight swelling noted left knee. Initial Vital Signs Initial Vital Signs: Vital Signs Temperature 98 F 06/18/18 12:39 Pulse Rate 92 H 06/18/18 12:39 Respiratory Rate 15 06/18/18 12:39 Blood Pressure 110/80 06/18/18 12:39 Pulse Oximetry 96 06/18/18 12:39 <Brandy Torrez DO - Last Filed: 06/22/18 20:07> Initial Vital Signs Initial Vital Signs: Vital Signs Temperature 98 F 06/18/18 12:39 Pulse Rate 92 H 06/18/18 12:39 Respiratory Rate 15 06/18/18 12:39 Blood Pressure 110/80 06/18/18 12:39 Pulse Oximetry 96 06/18/18 12:39 Course <EMANUEL Boogie - Last Filed: 06/18/18 15:00> Orders Ordered: Discontinued Medications Acetaminophen (Tylenol) 650 mg PO NOW ONE Stop: 06/18/18 13:58 Last Admin: 06/18/18 14:01 Dose: 650 mg Vital Signs - 8 hr 06/18/18 12:39 06/18/18 14:30 Temperature 98 F Pulse Rate 92 H 83 Respiratory Rate 15 15 Blood Pressure 110/80 Blood Pressure [Right Arm] 135/66 Pulse Oximetry 96 95 <Brandy Torrez DO - Last Filed: 06/22/18 20:07> Orders Ordered: Discontinued Medications Acetaminophen (Tylenol) 650 mg PO NOW ONE Stop: 06/18/18 13:58 Last Admin: 06/18/18 14:01 Dose: 650 mg Vital Signs - 8 hr 06/18/18 12:39 06/18/18 14:30 Temperature 98 F Pulse Rate 92 H 83 Respiratory Rate 15 15 Blood Pressure 110/80 Blood Pressure [Right Arm] 135/66 Pulse Oximetry 96 95 MDM - Fall <EMANUEL Boogie - Last Filed: 06/18/18 15:00> Imaging Data knee xray : Radiologist's impression: [address] [address] XRay Report Signed Patient: Bushra Desai SMR#: [id number] : 1950cct:[id number] Age/Sex: 68 / FDate of Service: 06/18/18 Loc: ED Accession Number: [id number] Procedure: XR knee LT 3V Ordering Provider: Brandy Brewer PROCEDURE: XR KNEE LT 3V INDICATIONS: GLF, lt anterior knee pain TECHNIQUE: 3 views of the knee were acquired. COMPARISON: None. FINDINGS: Bones: No fractures or dislocations. No suspicious bony lesions. Soft tissues: No joint effusion. No suspicious soft tissue calcifications. IMPRESSION: No fracture. No osseous lesion. If there are persistent symptoms or clinical suspicion for pathology, then repeat radiographs or advanced imaging (CT, MRI or bone scan) should be considered for further evaluation. Dictated by: Yris Thomson MD, PhD on 06/18/2018 at 13:51 Approved by: Yris Thomson MD, PhD on 06/18/2018 at 13:51 [facility] Narrative Medical decision making narrative: Patient presents with chief complaint of knee pain after ground level fall. She was able to ambulate in the emergency department after receiving her negative x-ray result. Us Durga wrap was applied and she was given Tylenol for pain. Given that she felt well ambulating, she was discharged home with instructions to follow up with her primary care provider in a few days of worsening or no improvement. She had no questions or concerns upon discharge. Discharge Plan Departure Patient Disposition: Home Clinical Impression: Contusion of knee, Fall from ground level Discharge Date/Time: 06/18/18 15:00 Interventions: ED Discharge Assessment Last Done: 06/18/18 15:00 Instructions: DI for Contusion, How To Perform RICE (Rest, Ice, Compress, Elevate), How to Prevent Falls, DI for Knee Pain Activity Restrictions/Additional Instructions: Your knee x-ray came back with no fracture. Please use rest ice compression and elevation. Please take [id number] pain medication as needed and able. Please follow-up with primary care provider for new or worsening symptoms. Prescriptions: No Action clopidogrel [Plavix] 75 MG tablet 75 mg PO DAILY Qty: 0 RF: 0 fenofibrate 54 MG tablet 54 mg PO DAILY Qty: 0 RF: 0 sertraline [Zoloft] 100 MG tablet 100 mg PO QDAY Qty: 0 RF: 0 metformin 500 mg Tablet 500 mg PO BID RF: 0 bupropion HCl 150 mg tablet extended release 12 hr 2 tab PO DAILY RF: 0 trazodone 50 mg tablet 50 - 100 mg PO BEDTIME RF: 0 ibuprofen 800 mg tablet 1 tab PO TID PRN (Reason: Pain, Moderate) RF: 0 gabapentin 600 mg tablet 600 mg PO TID RF: 0 calcium carbonate [Calcium 500] 500 mg calcium (1,250 mg) Tablet 2,000 mg PO QID RF: 0 magnesium 200 mg Tablet 600 mg PO DAILY RF: 0 Referrals: Man Melara MD [Primary Care Provider] - <Brandy Torrez DO - Last Filed: 06/22/18 20:07> Cosign ED Attending Cosignature Attestation: I was immediately available in the department for consultation. This documentation has been reviewed and I agree with assessment and plan. 322cm of ecchymosis is typo. Supervised by Brandy Torrez DO
[2018-06-18] MEDS: ACETAMINOPHEN 325 MG TABLET 650 MG PO (14:01)
[2018-06-18 14:30] VITALS: BP 135/66; PULSE 83; RESP 15; O2SAT 95
== END 2018-06-18 15:00 | disposition home or self-care (01) ==
PROVIDERS: Emergency Provider Nurse Practitioner Family; Family Provider Family Medicine; PCP Family Medicine
DX: S80.02XA Contusion of left knee, initial encounter (principal); W19.XXXA Unspecified fall, initial encounter
CPT/HCPCS: 73562; 99282; 99283

== ENCOUNTER 2018-10-25 12:03 | Emergency (ER) | payer MEDICARE, MEDICAID, SELFPAY ==
[2018-05-21 22:03] VITALS: BMI 48.3
[2018-10-25 12:14] VITALS: BP 122/70; PULSE 85; RESP 16; TEMP 36.4; O2SAT 94
--- NOTE | 2018-10-25 12:15 | DI.RAD.S_ITS ---
PROCEDURE: XR HIP W PEL IF DONE LT 2V INDICATIONS: fall pain TECHNIQUE: One view of the left hip one view of the pelvis were acquired. COMPARISON: None. FINDINGS: Bones: No fractures or dislocations. Posterior lumbar spinal fusion hardware noted. Mild degenerative changes of the hip joints bilaterally. Soft tissues: Soft tissue gas lucencies project over the lower pelvis and hips. IMPRESSION: 1. No convincing radiographic evidence of acute left hip fracture or dislocation. 2. Soft tissue gas lucencies projecting over the lower pelvis and hips, which may represent bowel within an overlying pannus versus soft tissue injury. Clinical correlation recommended. Dictated by: Hakan Saldana M.D. on 10/25/2018 at 13:19 Approved by: Hakan Saldana M.D. on 10/25/2018 at 13:25
--- NOTE | 2018-10-25 12:15 | DI.RAD.S_ITS ---
PROCEDURE: XR SHOULDER LT MIN 2V INDICATIONS: fall pain deformity TECHNIQUE: 2 views of the shoulder were acquired. COMPARISON: None. FINDINGS: Bones: No acute fractures or dislocations. Visualized ribs appear intact. Soft tissues: No suspicious soft tissue calcifications. IMPRESSION: No acute fracture or dislocation of the left shoulder. Consider followup radiographs in 7-10 days if there is continued clinical concern. Dictated by: Hakan Saldana M.D. on 10/25/2018 at 13:26 Approved by: Hakan Saldana M.D. on 10/25/2018 at 13:28
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
--- NOTE | 2018-10-25 12:52 | DI.RAD.S_ITS ---
PROCEDURE: XR HUMERUS LT 2V INDICATIONS: proximal pain TECHNIQUE: 2 views of the humerus were acquired. COMPARISON: None. FINDINGS: Bones: No fractures or dislocations. No suspicious bony lesions. Soft tissues: No suspicious soft tissue calcifications. IMPRESSION: No fracture. No osseous lesion. If symptoms and/or clinical suspicion for pathology persists, further assessment with repeat radiographs (7-10 days) or advanced imaging (e.g. CT, MRI or bone scan) may be helpful. Dictated by: Yris Thomson MD, PhD on 10/25/2018 at 13:08 Approved by: Yris Thomson MD, PhD on 10/25/2018 at 13:09
[2018-10-25 13:30] VITALS: BP 125/67; PULSE 87; RESP 20; O2SAT 93
[2018-10-25] MEDS: OXYCODONE/ACETAMINOPHEN 5/325 TABLET 2 TAB PO (14:15)
== END 2018-10-25 14:39 | disposition home or self-care (01) ==
PROVIDERS: Emergency Provider Internal Medicine
DX: S43.402A Unspecified sprain of left shoulder joint, initial encounter (principal); T07.XXXA Unspecified multiple injuries, initial encounter; W07.XXXA Fall from chair, initial encounter
CPT/HCPCS: 73030; 73060; 73502; 99283; 99284

== ENCOUNTER → 2018-11-25 08:39 | Outpatient (CLI) | payer MEDICARE, MEDICAID, SELFPAY ==
[2018-05-21 22:03] VITALS: BMI 48.3
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
== END ==
PROVIDERS: Visit Provider Physician Assistant Surgical
DX: M25.522 Pain in left elbow (principal); S50.02XA Contusion of left elbow, initial encounter; W19.XXXA Unspecified fall, initial encounter
CPT/HCPCS: 73221

== ENCOUNTER 2019-01-03 12:54 | Inpatient (IN) | payer MEDICARE, MEDICAID, SELFPAY ==
[2018-05-21 22:03] VITALS: BMI 48.3
[2019-01-03] VITALS (7 sets, daily range): BP systolic 111–135; BP diastolic 62–88; PULSE 79–85; RESP 12–18; TEMP 36–36.8; O2SAT 92–99; BMI 49.1
--- NOTE | 2019-01-03 12:58 | ED.GENADULT ---
HPI - General Adult General Chief complaint: Neuro Symptoms/Deficit Stated complaint: Stroke like symptoms Time Seen by Provider: 01/03/19 12:54 Source: patient Mode of arrival: EMS Limitations: other (Dysarthria) History of Present Illness HPI narrative: Patient is a 68-year-old female who back in 2010 sustained an ischemic stroke. Has residual right-sided upper and lower extremity weakness how ever patient states that she is able to get around at home most of the time without any walker or cane assistance. She states that last evening she felt like that her right upper and lower extremity weakness was a little worse. She did not think much of it. Went to bed last night without any problems. Woke up this morning feeling at baseline. At approximately 10 to 1030 hours today she was sitting on the couch when she stated that she had a sudden onset of problems speaking. She also describes a right-sided headache. she also states that at some point during the event today she thought that maybe the right-sided weakness that she felt last night was again worsening. She did take her medicines this morning. She states she knows what she wants to stay but has some difficulty saying it. Patient was brought into the emergency department by EMS without prior intervention. Related Data Home Medications Medication Instructions Recorded Confirmed clopidogrel [Plavix] 75 mg PO DAILY #0 06/15/17 01/03/19 fenofibrate 54 mg PO DAILY #0 06/15/17 01/03/19 metformin 500 mg PO BID 02/02/18 01/03/19 gabapentin 600 mg PO TID PRN 04/19/18 01/03/19 ibuprofen 1 tab PO TID PRN 04/19/18 01/03/19 calcium carbonate [Calcium 500] 2,000 mg PO QID 05/21/18 01/03/19 magnesium 600 mg PO DAILY 05/21/18 01/03/19 bupropion HCl 300 mg PO DAILY 10/25/18 01/03/19 sertraline 150 mg PO DAILY 10/25/18 01/03/19 trazodone 150 mg PO BEDTIME 10/25/18 01/03/19 verapamil 80 mg PO TID 10/25/18 01/03/19 Allergies Allergy/AdvReac Type Severity Reaction Status Date / Time vancomycin Allergy Intermediate Flushing Verified 04/19/18 15:17 Review of Systems Constitutional Denies fatigue, Reports headache(s) and Reports weakness Eyes Denies change in vision and Denies loss of vision ENT Ears, Nose, Mouth, and Throat: Denies dizziness, Reports headache(s), Denies disequilibrium and Denies sore throat Cardiovascular Denies chest pain and Denies dyspnea Respiratory Denies dyspnea Gastrointestinal Gastrointestinal: Denies abdominal pain Genitourinary Denies dysuria Musculoskeletal Denies back pain, Denies myalgias, Denies arthralgias, Reports muscle weakness and Denies tingling Integumentary/Breasts Denies rash Neurologic Denies confusion, Denies dizziness, Reports headache(s), Reports focal weakness (Right-sided body), Denies loss of vision, Denies restless legs, Reports sensory deficit (Right-sided face), Denies tingling, Denies paresthesias, Denies disequilibrium and Reports weakness Psychiatric Denies confusion Endocrine Denies fatigue Hematologic/Lymphatic Denies easy bleeding and Denies easy bruising Allergic/Immunologic Denies urticaria PFSH Medical History Depression with anxiety (Chronic) Hyperlipidemia associated with type 2 diabetes mellitus (Chronic) Migraine (Chronic) Morbid obesity with BMI of 45.0-49.9, adult (Chronic) Type 2 diabetes mellitus (Chronic) History of stroke (Resolved) Surgical History History of spinal surgery (Resolved) History of (Inactive) History of ventral hernia repair (Inactive) Family History (Updated 10/25/18 @ 12:33 by Leeann Yun PA-C) Other Family history non-contributory Social History household members: none Smoking Status: Never smoker alcohol intake: never Family History Other Family history non-contributory Social History household members: none Smoking Status: Never smoker alcohol intake: never Exam Initial Vital Signs Initial Vital Signs: Vital Signs Temperature 97.7 F 01/03/19 13:05 Pulse Rate 84 01/03/19 13:05 Respiratory Rate 14 01/03/19 13:05 Blood Pressure 129/62 01/03/19 13:05 Pulse Oximetry 99 01/03/19 13:05 Const General: well developed, well groomed and No acute distress Orientation: alert, awake and oriented x3 HENMT Head: normal to inspection and normocephalic Ears: hearing grossly normal bilaterally Face and sinus: normal facial exam Eyes Pupils: PERRL EOM: EOM intact bilaterally Resp Effort & Inspection: normal respiratory effort Auscultation: clear to auscultation bilaterally Cardio Rate: regular rate Rhythm: regular rhythm Pulses: radial pulses present GI Inspection: non-distended Palpation: soft and No tender Skin Lesions: no lesions Rashes: no rashes Neuro General: alert, awake and oriented x3 Cranial Nerves: other (CN 2-12 intact except for decreased feeling to right side) Cognition: normal cognition Speech: abnormal speech (Dysarthria) Sensory Exam: sensory deficits noted (Decreased sensation right side of face) Coordination: jclsuf-vp-rvfn test abnormal (Decreased afmlpn-yz-udbn right side) and fwlk-vr-mqbv test normal (Decreased heel to light right side) Extrem General: normal to inspection, capillary refill normal and No edema Psych Appearance: grossly normal and well kempt Mood: congruent mood Scores GCS [place] coma scale eye opening: Spontaneous [place] coma scale verbal response: Orientated [place] coma scale motor response: Obey commands [place] coma scale total score: 15 NIH Stroke Scale Level of Conciousness: Alert, keenly responsive Ask month/age: Answers both questions correctly. Open/close eyes, close hand: Performs both tasks correctly Best gaze horizontal: Normal Visual graff: No visual loss Facial palsy: Normal symetrical movement Left arm drift: No drift for full 10 sec Right arm drift: No drift for full 10 sec Left leg drift: Drifts down, not to bed Right leg drift: Some effort against gravity, cannot maintain, drifts down to bed Limb ataxia: Present in two limbs Sensory on face/arms/legs: Mild to moderate sensory loss, can tell touch Best language: Mild to moderate, slurs some words Dysarthria: Mild to mod,some slurring Extinction or inattention: No abnormality Total NIH Stroke scale score: 8 Course Orders Ordered: ED Orders 01/03/19 13:00 EKG-12 Lead Stat 01/03/19 13:02 CT head/brain wo con Stat 01/03/19 13:04 Basic Metabolic Panel Stat Complete Blood Count AUTO DIFF Stat Partial Thromboplastin Time Stat Prothrombin Time INR Stat Troponin I Stat 01/03/19 13:06 CT angio head and neck Stat Discontinued Medications Aspirin (Aspirin) 325 mg PO NOW ONE Stop: 01/03/19 15:40 Last Admin: 01/03/19 15:54 Dose: 325 mg Morphine Sulfate (Morphine) 2 mg IV NOW ONE Stop: 01/03/19 14:46 Last Admin: 01/03/19 14:52 Dose: 2 mg Vital Signs - 8 hr 01/03/19 13:05 01/03/19 14:30 01/03/19 15:30 Temperature 97.7 F Pulse Rate 84 83 79 Respiratory Rate 14 14 12 Blood Pressure 129/62 Blood Pressure [Right Arm] 121/88 135/73 Pulse Oximetry 99 92 97 01/03/19 16:07 Temperature Pulse Rate 81 Respiratory Rate 14 Blood Pressure 135/70 Blood Pressure [Right Arm] Pulse Oximetry 93 Medical Decision Making Lab Data Lab results reviewed: Yes I reviewed the patient's lab results. Result diagrams: 01/03/19 13:04 01/03/19 13:04 Lab Results 01/03/19 01/03/19 01/03/19 Range/Units 13:04 13:04 13:04 WBC 5.3 (4.5-11.0) X10^3/uL RBC 4.33 (4.0-5.2) X10^6/uL Hgb 12.2 (12.0-16.0) g/dL Hct 37.5 (36-46) % MCV 86.5 (80-100) fL MCH 28.3 (26-34) PG MCHC 32.7 (30-36) % RDW 15.0 H (11.6-14.8) % Plt Count 326 (150-400) X10^3/uL Neut % (Auto) 60.2 (50-75) % Lymph % (Auto) 27.2 (25-40) % [place] % (Auto) 9.2 (3-14) % Eos % (Auto) 2.2 (2-4) % Baso % (Auto) 1.2 (0-2) % Neut # (Auto) 3200 (3648-2628) /uL Lymph # (Auto) 1400 (1717-1077) /uL [place] # (Auto) 500 (0-900) /uL Eos # (Auto) 100 (0-450) /uL Baso # (Auto) 100 (0-100) /uL PT 11.4 (10.1-12.7) SECONDS INR 1.0 (0.9-1.3) APTT 32 D (26.4-36.2) SECONDS Sodium 140 (137-145) mmol/L Potassium 4.6 (3.4-5.1) mmol/L Chloride 105 (98-107) mmol/L Carbon Dioxide 27 (22-32) mmol/L BUN 25 H (7-17) mg/dL Creatinine 1.00 (0.52-1.04) mg/dL Estimated GFR 55.5 L (>60) mL/min BUN/Creatinine Ratio 25.0 H (6-22) Glucose 110 (80-110) mg/dL Calcium 9.8 (8.4-10.2) mg/dL Troponin I < 0.012 (0.01-0.034) ng/mL Point of Care Testing Glucose POC 118 Point of care testing: Point of Care Testing Glucose POC [address] scan - head: Radiologist's impression: Patient: Bushra Desai [facility]#: [id number] : 2Acct:[id number] Age/Sex: 68 / FDate of Service: 01/03/19 Loc: ED Accession Number: [id number] Procedure: CT head/brain wo con Ordering Provider: Man Read D.O. PROCEDURE: CT HEAD/BRAIN WO CON INDICATIONS: Possible stroke TECHNIQUE: Noncontrast 4.5 mm thick angled axial sections acquired from the foramen magnum to the vertex, with coronal and sagittal reformats. For radiation dose reduction, the following was used: automated exposure control, adjustment of mA and/or kV according to patient size. COMPARISON: [facility], CT, CT HEAD/BRAIN WO CON, 04/19/2018, 11:04. [facility], CT, HEAD WITHOUT CONTRAST, 08/02/2017, 18:42. FINDINGS: Image quality: Excellent. CSF spaces: Basal cisterns are patent. No extra-axial fluid collections. Ventricles are normal in size and shape. Brain: No midline shift. No intracranial masses or hemorrhage. Beavers-white matter interface is abnormal with bilateral parietal cortical areas of encephalomalacia related to prior strokes, and extension of low attenuation in the deep white matter of the left coronal gradient to a greater degree than the lobe right moraes radiata. There is also a posterior area of right hemispheric occipital encephalomalacia. No intracranial hemorrhage is found.. Skull and face: Calvarium and visualized facial bones are intact, without suspicious lesions. Sinuses: Visualized sinuses and mastoids are clear. IMPRESSION: 3 areas of prior stroke are identified, involving the parietal lobes bilaterally in the posterior right occipital lobe. These include both superficial and deeper areas of encephalomalacia and accurate detection of a small additional area of new stroke would not be possible by this examination. MR followup may be warranted for more accurate assessment. No intracranial hemorrhage found. Dictated by: Marvel Ortiz M.D. on 01/03/2019 at 13:01 Approved by: Marvel Ortiz M.D. on 01/03/2019 at 13:04 CTA head and neck: Radiologist's impression: Patient: Bushra Desai [facility]#: [id number] : 2Acct:[id number] Age/Sex: 68 / FDate of Service: 01/03/19 Loc: ED Accession Number: [id number] Procedure: CT angio head and neck Ordering Provider: Man Read D.O. PROCEDURE: CT ANGIO HEAD AND NECK INDICATIONS: Confusion, speech difficulties. Possible stroke TECHNIQUE: Pre-contrast 4.5 mm thick sections acquired from the foramen magnum to the vertex. After the administration of intravenous contrast, 1 mm thick sections acquired from the aortic arch through the [place] of [place]. Post-contrast 4.5 mm thick sections then re-acquired from the foramen magnum to the vertex. 3-dimensional vxdlsyf-ilgscoxpp-cclgjjvtef (MIP) and/or volume rendering reformats were acquired of the central intracranial vasculature and neck separately. COMPARISON: [facility], CT, CT ANGIO HEAD AND NECK, 04/19/2018, 13:09. [facility], CT, CT HEAD/BRAIN WO CON, 01/03/2019, 12:50. [facility], CT, CT HEAD/BRAIN WO CON, 04/19/2018, 11:04. FINDINGS: Image quality: Excellent. BRAIN: CSF spaces: Ventricles are normal in size and shape. Basal cisterns are patent. No extra-axial fluid collections. Brain: No midline shift. No intracranial bleeds or masses. Chronic bilateral frontal and right occipital infarcts are stable compared to prior exams. Skull and face: Calvarium and facial bones appear intact, without suspicious lesions. Orbits appear normal. Sinuses: Sinuses and mastoids are clear. HEAD CT ANGIOGRAPHY: Anterior circulation: Intracranial internal carotid arteries are normal in flow. Atherosclerotic calcifications noted in the cavernous and clinoid segments of the internal carotid arteries bilaterally which cause mild multifocal stenoses. Soft atherosclerotic plaque is noted in the petrous segment of the right internal carotid artery which causes moderate stenosis. The flow within the paired anterior cerebral arteries is normal and symmetric. 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 The flow within the middle cerebral arteries is normal and symmetric. There is a markedly diminished flow in ashlyn-inferior M2 branch of the left middle cerebral artery concerning for presence of flow limiting thrombus. The anterior communicating artery is seen. No aneurysms are seen. Posterior circulation: Visualized portions of the vertebral arteries demonstrate normal caliber, and join to form a normal appearing basilar artery. Atherosclerotic calcifications noted in the V4 segment of the left vertebral artery which causes mild stenosis. Flow within the posterior cerebral arteries is normal and symmetric. No aneurysms are seen. Dural sinuses demonstrate normal postcontrast enhancement. NECK CT ANGIOGRAPHY: Carotid system: Aberrant right subclavian artery is redemonstrated. The origins of the common carotid arteries appear patent. The common carotid arteries demonstrate normal caliber and courses. The bifurcation regions are both widely patent. The internal carotid arteries demonstrate normal calibers and courses. Posterior circulation: The origins of the vertebral arteries both appear widely patent. The more superior extracranial portions of both vertebral arteries also demonstrate normal courses and calibers. They join to form a normal appearing basilar artery. Soft tissues: Visualized neck soft tissues demonstrate no suspicious abnormalities. Bones: No suspicious bony lesions. Spine degenerative disc disease and facet arthropathy. Visualized cervical spine appears normally aligned. IMPRESSION: 1. No acute intracranial disease process. 2. Diminished flow in an anterior-inferior M2 branch of the left middle cerebral artery concerning for flow limiting thrombus. 3. Moderate atherosclerotic stenosis of the petrous segment of the intracranial right internal carotid artery. 4. Mild atherosclerotic stenosis of the cavernous and clinoid segments of the intracranial bilateral internal carotid arteries. 5. Cervical segments of the internal carotid arteries are fully patent. 6. Mild atherosclerotic stenosis of the V4 segment of the left vertebral artery. 7. Cervical segments the vertebral arteries are fully patent. Patient is left vertebral artery dominant. Any quantitative measurements of stenosis were performed using NASCET criteria. Dictated by: Yris Thomson MD, PhD on 01/03/2019 at 14:11 Approved by: Yris Thomson MD, PhD on 01/03/2019 at 14:27 ECG Data Attestation: I personally reviewed and interpreted this ECG as follows: Prior ECG tracings: not available for review Interpretation: Sinus rhythm Ventricular rate 84 Normal axis Normal QRS Normal QTC No ST T wave changes MDM Narrative Medical decision making narrative: Patient arrived initially with an NIH scale of 8 however upon further questioning the patient states that the right upper and right lower extremity weakness and problems with finger to nose and heel to light is not new for her. She states that she feels like this is baseline for her. She states that her only new symptoms as the decrease in sensation subjectively to the right side of her face and the problems with speaking. Her non con head CT shows no new findings. Labs are unremarkable. EKG is unremarkable. patient did describe a potential worsening of her symptoms last evening however did worse this morning. I did discuss the case with Dr. Lieberman with the stroke team at [facility] who stated that after evaluating her noncontrast head CT that given the potential start of the symptoms last evening the fact that the NIH score is actually more like 2-3 given the right upper and lower extremity symptoms are not new that he would not recommend giving the patient tPA. A CT of the head and neck was obtained. I did discuss the results with Dr. Lieberman who evaluated the pictures and stated that the patient is not a candidate for acute thrombectomy. He felt that the left-sided M2 findings were not convincing enough to either anticoagulate the patient with heparin or do any sort of interventions. He recommended adding aspirin to her Plavix. She was given that here in the emergency department. I did discuss the case with Dr. Alexis hospitalist on-call today who will admit for further evaluation and treatment. Discussed the admission with the patient who expressed understanding. Upon my re-evaluation at that time I feel that her speech is improving slightly. Patient stated that she did not feel like her speech was improving. Will admit for further evaluation and treatment. Discharge Plan Departure Patient Disposition: Admitted As Inpatient Clinical Impression: Dysarthria CVA (cerebral vascular accident) Qualifiers: CVA mechanism: unspecified Qualified Code(s): I63.9 - Cerebral infarction, unspecified Interventions: ED Discharge Assessment Last Done: 01/03/19 16:07 Admit Date/Time: 01/03/19 15:41 Admit Provider: Safia Alexis
--- NOTE | 2019-01-03 13:02 | DI.CT.S_ITS ---
PROCEDURE: CT HEAD/BRAIN WO CON INDICATIONS: Possible stroke TECHNIQUE: Noncontrast 4.5 mm thick angled axial sections acquired from the foramen magnum to the vertex, with coronal and sagittal reformats. For radiation dose reduction, the following was used: automated exposure control, adjustment of mA and/or kV according to patient size. COMPARISON: [facility], CT, CT HEAD/BRAIN WO CON, 04/19/2018, 11:04. [facility], CT, HEAD WITHOUT CONTRAST, 08/02/2017, 18:42. FINDINGS: Image quality: Excellent. CSF spaces: Basal cisterns are patent. No extra-axial fluid collections. Ventricles are normal in size and shape. Brain: No midline shift. No intracranial masses or hemorrhage. Beavers-white matter interface is abnormal with bilateral parietal cortical areas of encephalomalacia related to prior strokes, and extension of low attenuation in the deep white matter of the left coronal gradient to a greater degree than the lobe right moraes radiata. There is also a posterior area of right hemispheric occipital encephalomalacia. No intracranial hemorrhage is found.. Skull and face: Calvarium and visualized facial bones are intact, without suspicious lesions. Sinuses: Visualized sinuses and mastoids are clear. IMPRESSION: 3 areas of prior stroke are identified, involving the parietal lobes bilaterally in the posterior right occipital lobe. These include both superficial and deeper areas of encephalomalacia and accurate detection of a small additional area of new stroke would not be possible by this examination. MR followup may be warranted for more accurate assessment. No intracranial hemorrhage found. Dictated by: Marvel Ortiz M.D. on 01/03/2019 at 13:01 Approved by: Marvel Ortiz M.D. on 01/03/2019 at 13:04
--- NOTE | 2019-01-03 13:06 | DI.CT.S_ITS ---
PROCEDURE: CT ANGIO HEAD AND NECK INDICATIONS: Confusion, speech difficulties. Possible stroke TECHNIQUE: Pre-contrast 4.5 mm thick sections acquired from the foramen magnum to the vertex. After the administration of intravenous contrast, 1 mm thick sections acquired from the aortic arch through the [place] of [place]. Post-contrast 4.5 mm thick sections then re-acquired from the foramen magnum to the vertex. 3-dimensional awusnnc-unxrqywph-zdcxygcpvh (MIP) and/or volume rendering reformats were acquired of the central intracranial vasculature and neck separately. COMPARISON: [facility], CT, CT ANGIO HEAD AND NECK, 04/19/2018, 13:09. [facility], CT, CT HEAD/BRAIN WO CON, 01/03/2019, 12:50. [facility], CT, CT HEAD/BRAIN WO CON, 04/19/2018, 11:04. FINDINGS: Image quality: Excellent. BRAIN: CSF spaces: Ventricles are normal in size and shape. Basal cisterns are patent. No extra-axial fluid collections. Brain: No midline shift. No intracranial bleeds or masses. Chronic bilateral frontal and right occipital infarcts are stable compared to prior exams. Skull and face: Calvarium and facial bones appear intact, without suspicious lesions. Orbits appear normal. Sinuses: Sinuses and mastoids are clear. HEAD CT ANGIOGRAPHY: Anterior circulation: Intracranial internal carotid arteries are normal in flow. Atherosclerotic calcifications noted in the cavernous and clinoid segments of the internal carotid arteries bilaterally which cause mild multifocal stenoses. Soft atherosclerotic plaque is noted in the petrous segment of the right internal carotid artery which causes moderate stenosis. The flow within the paired anterior cerebral arteries is normal and symmetric. 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 The flow within the middle cerebral arteries is normal and symmetric. There is a markedly diminished flow in ashlyn-inferior M2 branch of the left middle cerebral artery concerning for presence of flow limiting thrombus. The anterior communicating artery is seen. No aneurysms are seen. Posterior circulation: Visualized portions of the vertebral arteries demonstrate normal caliber, and join to form a normal appearing basilar artery. Atherosclerotic calcifications noted in the V4 segment of the left vertebral artery which causes mild stenosis. Flow within the posterior cerebral arteries is normal and symmetric. No aneurysms are seen. Dural sinuses demonstrate normal postcontrast enhancement. NECK CT ANGIOGRAPHY: Carotid system: Aberrant right subclavian artery is redemonstrated. The origins of the common carotid arteries appear patent. The common carotid arteries demonstrate normal caliber and courses. The bifurcation regions are both widely patent. The internal carotid arteries demonstrate normal calibers and courses. Posterior circulation: The origins of the vertebral arteries both appear widely patent. The more superior extracranial portions of both vertebral arteries also demonstrate normal courses and calibers. They join to form a normal appearing basilar artery. Soft tissues: Visualized neck soft tissues demonstrate no suspicious abnormalities. Bones: No suspicious bony lesions. Spine degenerative disc disease and facet arthropathy. Visualized cervical spine appears normally aligned. IMPRESSION: 1. No acute intracranial disease process. 2. Diminished flow in an anterior-inferior M2 branch of the left middle cerebral artery concerning for flow limiting thrombus. 3. Moderate atherosclerotic stenosis of the petrous segment of the intracranial right internal carotid artery. 4. Mild atherosclerotic stenosis of the cavernous and clinoid segments of the intracranial bilateral internal carotid arteries. 5. Cervical segments of the internal carotid arteries are fully patent. 6. Mild atherosclerotic stenosis of the V4 segment of the left vertebral artery. 7. Cervical segments the vertebral arteries are fully patent. Patient is left vertebral artery dominant. Any quantitative measurements of stenosis were performed using NASCET criteria. Dictated by: Yris Thomson MD, PhD on 01/03/2019 at 14:11 Approved by: Yris Thomson MD, PhD on 01/03/2019 at 14:27
[2019-01-03 13:15] LABS: Add Manual Diff / Slide Review NO; Basophils Absolute Auto 100 /uL (0-100); Basophils Percent Auto 1.2 % (0-2); Eosinophils Absolute Auto 100 /uL (0-450); Eosinophils Percent Auto 2.2 % (2-4); Hematocrit 37.5 % (36-46); Hemoglobin 12.2 g/dL (12.0-16.0); Lymphocytes Absolute Auto 1400 /uL (1100-4500); Lymphocytes Percent Auto 27.2 % (25-40); Mean Corpuscular HGB Conc 32.7 % (30-36); Mean Corpuscular Hemoglobin 28.3 PG (26-34); Mean Corpuscular Volume 86.5 fL (80-100); Monocytes Absolute Auto 500 /uL (0-900); Monocytes Percent Auto 9.2 % (3-14); Neutrophils Absolute Auto 3200 /uL (1500-7000); Neutrophils Percent Auto 60.2 % (50-75); Platelet Count 326 X10^3/uL (150-400); Red Blood Cell Count 4.33 X10^6/uL (4.0-5.2); White Blood Cell Count 5.3 X10^3/uL (4.5-11.0)
[2019-01-03 13:22] LABS: Prothrombin Time 11.4 SECONDS (10.1-12.7)
[2019-01-03 13:25] LABS: PTT Partial Thromboplastin Tim 32 SECONDS (26.4-36.2)
[2019-01-03 13:26] LABS: Blood Urea Nitrogen 25 mg/dL (7-17); Calcium 9.8 mg/dL (8.4-10.2); Carbon Dioxide 27 mmol/L (22-32); Chloride 105 mmol/L (98-107); Estimated Glomerular Filt Rate 55.5 mL/min (>60); Glucose 110 mg/dL (80-110); HEMOLYSIS < 15 (0-50); Potassium 4.6 mmol/L (3.4-5.1); Sodium 140 mmol/L (137-145)
[2019-01-03 13:38] LABS: Troponin I < 0.012 ng/mL (0.01-0.034)
[2019-01-03] MEDS: MORPHINE 2 MG/ML INJ IV (14:52)
[2019-01-03] MEDS: ASPIRIN 325 MG TABLET PO (15:54)
--- NOTE | 2019-01-03 16:48 | PC.NURSE ---
Addendum entered by Arabella House R.N. 01/03/19 21:25: Patient off unit to MRI, up out of bed to WC. Requiring 2PA with FWW. Unsteady gait noted, with marked weakness to RUE and RLE. Patient awake, alert, and calm. NPO. Original Note: Ashlyn shift note: Patient admitted to room 226 from ED via [facility] with Toya RN. Patient transferred to bed from [facility] with sliding board, able to help with mobility and repositioning in bed. Noted with weakness to RU and RL extremity. Difficulty with speech/finding words, and stutters when beginning to speak. Awake, alert, pleasant and cooperative. High risk precautions initiated, BA, and call light within reach. Oriented to room, environment, and plan of care.
--- NOTE | 2019-01-03 19:33 | PM.HP.1 ---
History of Present Illness Date Patient Seen: 01/03/19 Time Patient Seen: 19:34 Chief complaint: Stroke like symptoms Narrative: The patient is a 68-year-old female with PMH ischemic CVA w/ residual deficits (RUE and RLE weakness and gait imbalance), post stroke migraine (requires botox injections Q3 months), DM 2T, HLD, COPD, ABIOLA (CPAP), morbid obesity, depression / anxiety, chronic back pain (i.e. spinal stenosis) Patient presented to the ED on 01/03/2019 out of concern for dysarthria. Dysarthria was noted on 01/03/2019 at 10 AM. Associated symptoms a migraine, difficulty with expressive speech, and slurring of words. Patient reports developing a migraine in the right temporal aspect of the head with radiation to the back at 8:00 AM. Reports severity as 8/10. Associated symptoms include more pronounced right-sided weakness (from baseline) and a sensation of numbness and tingling in lower extremities and right aspect of the face. She notes experiencing difficulty with ambulation. She felt that her legs did not want to cooperate.She reports experiencing lightheadedness with position change. She had her blood pressure checked by her caregiver, notes it to be 136/72 mmHg. Reports blood glucose of 117. Patient denies visual disturbances, specifically change in vision, blurry vision, loss of sight, or seeing spots / flashes. She also did not experience chest pain, palpitations, dyspnea, abdominal pain, nausea, or vomiting. There has not been change in pattern micturition, including urinary frequency, dysuria, or hematuria. She has taken gabapentin to help with migraine relief. Shortly after onset of symptoms patient contacted her PCP who urged her to push her lifeline and seek immediate medical evaluation. Patient is known to have suffered an ischemic CVA in 2010 with residual right-sided weakness and gait instability. Patient ambulates with a use of a walker. Since the aforementioned ischemic event patient reports additional 6 episodes of TIA. She is known to have post CVA migraines for which she receives Botox injections every 3 months, her next injection is due on 01/08/19. Patient reports experiencing similar symptoms in the past in the presence of a migraine. Imaging in ED CT HEAD 3 areas of prior stroke are identified, involving the parietal lobes bilaterally in the posterior right occipital lobe. These include both superficial and deeper areas of encephalomalacia and accurate detection of a small additional area of new stroke would not be possible by this examination. MR followup may be warranted for more accurate assessment. No intracranial hemorrhage found. HEAD / NECK CTA [address] [address] [address] Scan Report Signed Patient: Bushra Desai [facility]#: [id number] : 2Acct:[id number] Age/Sex: 68 / FDate of Service: 01/03/19 Loc: ED Accession Number: [id number] Procedure: CT angio head and neck Ordering Provider: Man Read D.O. PROCEDURE: CT ANGIO HEAD AND NECK INDICATIONS: Confusion, speech difficulties. Possible stroke TECHNIQUE: Pre-contrast 4.5 mm thick sections acquired from the foramen magnum to the vertex. After the administration of intravenous contrast, 1 mm thick sections acquired from the aortic arch through the [place]. Post-contrast 4.5 mm thick sections then re-acquired from the foramen magnum to the vertex. 3-dimensional lwrajhc-cblxfqkxk-gtqgyhdshb (MIP) and/or volume rendering reformats were acquired of the central intracranial vasculature and neck separately. COMPARISON: [facility], CT, CT ANGIO HEAD AND NECK, 04/19/2018, 13:09. [facility], CT, CT HEAD/BRAIN WO CON, 01/03/2019, 12:50. [facility], CT, CT HEAD/BRAIN WO CON, 04/19/2018, 11:04. FINDINGS: Image quality: Excellent. BRAIN: CSF spaces: Ventricles are normal in size and shape. Basal cisterns are patent. No extra-axial fluid collections. Brain: No midline shift. No intracranial bleeds or masses. Chronic bilateral frontal and right occipital infarcts are stable compared to prior exams. Skull and face: Calvarium and facial bones appear intact, without suspicious lesions. Orbits appear normal. Sinuses: Sinuses and mastoids are clear. HEAD CT ANGIOGRAPHY: Anterior circulation: Intracranial internal carotid arteries are normal in flow. Atherosclerotic calcifications noted in the cavernous and clinoid segments of the internal carotid arteries bilaterally which cause mild multifocal stenoses. Soft atherosclerotic plaque is noted in the petrous segment of the right internal carotid artery which causes moderate stenosis. The flow within the paired anterior cerebral arteries is normal and symmetric. 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 The flow within the middle cerebral arteries is normal and symmetric. There is a markedly diminished flow in ashlyn-inferior M2 branch of the left middle cerebral artery concerning for presence of flow limiting thrombus. The anterior communicating artery is seen. No aneurysms are seen. Posterior circulation: Visualized portions of the vertebral arteries demonstrate normal caliber, and join to form a normal appearing basilar artery. Atherosclerotic calcifications noted in the V4 segment of the left vertebral artery which causes mild stenosis. Flow within the posterior cerebral arteries is normal and symmetric. No aneurysms are seen. Dural sinuses demonstrate normal postcontrast enhancement. NECK CT ANGIOGRAPHY: Carotid system: Aberrant right subclavian artery is redemonstrated. The origins of the common carotid arteries appear patent. The common carotid arteries demonstrate normal caliber and courses. The bifurcation regions are both widely patent. The internal carotid arteries demonstrate normal calibers and courses. Posterior circulation: The origins of the vertebral arteries both appear widely patent. The more superior extracranial portions of both vertebral arteries also demonstrate normal courses and calibers. They join to form a normal appearing basilar artery. Soft tissues: Visualized neck soft tissues demonstrate no suspicious abnormalities. Bones: No suspicious bony lesions. Spine degenerative disc disease and facet arthropathy. Visualized cervical spine appears normally aligned. IMPRESSION: 1. No acute intracranial disease process. 2. Diminished flow in an anterior-inferior M2 branch of the left middle cerebral artery concerning for flow limiting thrombus. 3. Moderate atherosclerotic stenosis of the petrous segment of the intracranial right internal carotid artery. 4. Mild atherosclerotic stenosis of the cavernous and clinoid segments of the intracranial bilateral internal carotid arteries. It appears that the ED physician has discussed the case with neurology, Dr. Lieberman, stroke team at [facility]. TPA was not recommended (see Dr. Read's ED note). Patient is not a candidate for acute thrombectomy. Patient already on Plavix. A recommendation made to add aspirin to her regimen. 5. Cervical segments of the internal carotid arteries are fully patent. 6. Mild atherosclerotic stenosis of the V4 segment of the left vertebral artery. 7. Cervical segments the vertebral arteries are fully patent. Patient is left vertebral artery dominant. Patient History Medical History (Updated 01/03/19 @ 21:30 by TERRELL Byrd) Depression with anxiety (Chronic) Hyperlipidemia associated with type 2 diabetes mellitus (Chronic) Migraine (Chronic) Morbid obesity with BMI of 45.0-49.9, adult (Chronic) Type 2 diabetes mellitus (Chronic) History of stroke (Resolved) Surgical History (Updated 01/03/19 @ 19:46 by TERRELL Byrd) S/P cholecystectomy (Inactive) S/P trigger finger release (Inactive) History of spinal surgery (Resolved) History of (Inactive) History of ventral hernia repair (Inactive) Family History Other Family history non-contributory Social History household members: none Smoking Status: Never smoker alcohol intake: never Family & Social History Family History Other Family history non-contributory Social History: household members none Safety & Behavioral: Feels Safe in Current Yes Environment Tobacco & Substance use: Smoking Status Never smoker; known to have secondhand smoke exposure alcohol intake never alcohol intake frequency 0-2 drinks per day Substance Use Type does not use Meds Home Medications Medication Instructions Recorded Confirmed Type clopidogrel [Plavix] 75 mg PO DAILY #0 06/15/17 01/03/19 History fenofibrate 54 mg PO DAILY #0 06/15/17 01/03/19 History metformin 500 mg PO BID 02/02/18 01/03/19 History gabapentin 600 mg PO TID PRN 04/19/18 01/03/19 History ibuprofen 1 tab PO TID PRN 04/19/18 01/03/19 History calcium carbonate [Calcium 500] 2,000 mg PO QID 05/21/18 01/03/19 History magnesium 600 mg PO DAILY 05/21/18 01/03/19 History bupropion HCl 300 mg PO DAILY 10/25/18 01/03/19 History sertraline 150 mg PO DAILY 10/25/18 01/03/19 History trazodone 150 mg PO BEDTIME 10/25/18 01/03/19 History verapamil 80 mg PO TID 10/25/18 01/03/19 History Allergies Allergy/AdvReac Type Severity Reaction Status Date / Time vancomycin Allergy Intermediate Flushing Verified 04/19/18 15:17 Review of Systems Review of Systems All systems reviewed & are unremarkable except as noted in HPI and below Exam Vital Signs (past 8 hours): - 01/03/19 13:05 01/03/19 14:30 01/03/19 15:30 Temperature 97.7 F Pulse Rate 84 83 79 Respiratory Rate 14 14 12 Blood Pressure 129/62 Blood Pressure [Right Arm] 121/88 135/73 Pulse Oximetry 99 92 97 01/03/19 16:07 01/03/19 16:40 Temperature 96.8 F L Pulse Rate 81 80 Respiratory Rate 14 16 Blood Pressure 135/70 125/65 Blood Pressure [Right Arm] Pulse Oximetry 93 98 Oxygen Delivery Method Room Air Oxygen Flow Rate 0 Narrative Exam Narrative: Constitutional: NAD Neurologic: AOx3, right sided weakness, limb dysmetria, diminished sensation right face, RUE, and RLE, dysarthria, comprehension intact Head: NC, AT Eyes: PERRL, EOMI, Ears: external ears normal, no otorrhea Nose: external nose normal, no rhinorrhea or epistaxis Throat: DRY MM, oropharynx w/o exudate Neck: no masses, lymphadenopathy, or JVD Chest / Respiratory: equal chest rise, unlabored respiratory effort, no tachypnea, diminished Heart / CV: S1S2, no murmur Abdomen / GI: round, central obesity, NT, ND, + BS, no organomegaly : no suprapubic tenderness, no CVA Peripheral / Vascular: warm to touch, DP and PT pulses palpable, no edema Musc: right sided weakness, diminshed ROM of RLE, diminsined ROM of LUE Skin: no ecchymosis or suspicious lesions / ulcers Objective Labs Result Diagrams: 01/03/19 13:04 01/03/19 13:04 Labs: Laboratory Results - last 24 hr 01/03/19 01/03/19 01/03/19 13:04 13:04 13:04 WBC 5.3 RBC 4.33 Hgb 12.2 Hct 37.5 MCV 86.5 MCH 28.3 MCHC 32.7 RDW 15.0 H Plt Count 326 Neut % (Auto) 60.2 Lymph % (Auto) 27.2 [place] % (Auto) 9.2 Eos % (Auto) 2.2 Baso % (Auto) 1.2 Neut # (Auto) 3200 Lymph # (Auto) 1400 Randolph # (Auto) 500 Eos # (Auto) 100 Baso # (Auto) 100 PT 11.4 INR 1.0 APTT 32 D Sodium 140 Potassium 4.6 Chloride 105 Carbon Dioxide 27 BUN 25 H Creatinine 1.00 Estimated GFR 55.5 L BUN/Creatinine Ratio 25.0 H Glucose 110 Calcium 9.8 Troponin I < 0.012 Assessment & Plan Assessment & Plan narrative: Dysarthria, acute, present on admission Concern for a new stroke. Admitted for stroke rule out. Not a candidate for tPA or thrombectomy. - MR stroke protocol - Echo with bubble study - Received ASA 325 mg today, will continue daily - Resume ROD DRAWER Plavix at 75 mg daily - Risk stratify: A1C, FLP (currently not on a statin) - NIHSS on presentation to the unit, then Q shift until discontinued - Neuro checks per stroke protocol, Q2Hx4, then Q4H - Tele monitoring - Supplemental O2 to keep SpO2 > 92% - NPO, may advanced diet to heart healthy, diabetic if passes bedside swallow - Consult PT, OT, SP - Stroke Edu Migraine Headaches w/ aura, [id number], present on admission Received morphine in ED - Cocktail of 25 IV benadryl, 10 IV compazine, and 30 IV toradol Cough w/ purulence, acute, present on admission - Viral respiratory panel - CXR DM 2T, acute, present on admission - Currently NPO, accu-checks Q6H while NPO - No need for SSI at this time, will trend blood glucose with BID glucose checks - A1C in am Essential Hypertension, chronic, present on admission, stable BP controlled. ROD DRAWER on verapamin 40 mg TID. - Trend BP - Will hold ROD DRAWER anti-hypertensive to avoid hypotension. To be re-evaluated in am. Hyperlipidemia, chronic, present on admission, stable ROD DRAWER on fenofibrate. Not on a statin. - FLP for risk stratification, goal for LDL < 70 (h/o LDL 67 04/2018) Scores NIHSS Level of Conciousness: Alert, keenly responsive Ask month/age: Answers both questions correctly. Open/close eyes, close hand: Performs both tasks correctly Best gaze horizontal: Normal Visual graff: No visual loss Facial palsy: Normal symetrical movement Left arm drift: Drifts down, not to bed Right arm drift: No drift for full 10 sec Left leg drift: No drift for full 10 sec Right leg drift: Some effort against gravity, cannot maintain, drifts down to bed Limb ataxia: Present in two limbs Sensory on face/arms/legs: Mild to moderate sensory loss, can tell touch Best language: Mild to moderate, slurs some words Dysarthria: Mild to mod,some slurring Extinction or inattention: No abnormality Total NIH Stroke scale score: 8 Quality VTE Deep Vein Thrombosis/Pulmonary Embolism Present on Admission: No
--- NOTE | 2019-01-03 19:37 | P.HP_ITS ---
History of Present Illness Date Patient Seen: 01/03/19 Time Patient Seen: 19:34 Chief complaint: Stroke like symptoms Narrative: The patient is a 68-year-old female with PMH ischemic CVA w/ residual deficits (RUE and RLE weakness and gait imbalance), post stroke migraine (requires botox injections Q3 months), DM 2T, HLD, COPD, ABIOLA (CPAP), morbid obesity, depression / anxiety, chronic back pain (i.e. spinal stenosis) Patient presented to the ED on 01/03/2019 out of concern for dysarthria. Dysarthria was noted on 01/03/2019 at 10 AM. Associated symptoms a migraine, difficulty with expressive speech, and slurring of words. Patient reports developing a migraine in the right temporal aspect of the head with radiation to the back at 8:00 AM. Reports severity as 8/10. Associated symptoms include more pronounced right-sided weakness (from baseline) and a sensation of numbness and tingling in lower extremities and right aspect of the face. She notes experiencing difficulty with ambulation. She felt that her legs did not want to cooperate.She reports experiencing lightheadedness with position change. She had her blood pressure checked by her caregiver, notes it to be 136/72 mmHg. Reports blood glucose of 117. Patient denies visual disturbances, specifically change in vision, blurry vision, loss of sight, or seeing spots / flashes. She also did not experience chest pain, palpitations, dyspnea, abdominal pain, nausea, or vomiting. There has not been change in pattern micturition, including urinary frequency, dysuria, or hematuria. She has taken gabapentin to help with migraine relief. Shortly after onset of symptoms patient contacted her PCP who urged her to push her lifeline and seek immediate medical evaluation. Patient is known to have suffered an ischemic CVA in 2010 with residual right- sided weakness and gait instability. Patient ambulates with a use of a walker. Since the aforementioned ischemic event patient reports additional 6 episodes of TIA. She is known to have post CVA migraines for which she receives Botox injections every 3 months, her next injection is due on 01/08/19. Patient reports experiencing similar symptoms in the past in the presence of a migraine. Imaging in ED CT HEAD 3 areas of prior stroke are identified, involving the parietal lobes bilaterally in the posterior right occipital lobe. These include both superficial and deeper areas of encephalomalacia and accurate detection of a small additional area of new stroke would not be possible by this examination. MR followup may be warranted for more accurate assessment. No intracranial hemorrhage found. HEAD / NECK CTA [address] [address] [address] Scan Report Signed Patient: Bushra Desai [facility]#: [id number] : 2Acct:[id number] Age/Sex: 68 / FDate of Service: 01/03/19 Loc: ED Accession Number: [id number] Procedure: CT angio head and neck Ordering Provider: Man Read D.O. PROCEDURE: CT ANGIO HEAD AND NECK INDICATIONS: Confusion, speech difficulties. Possible stroke TECHNIQUE: Pre-contrast 4.5 mm thick sections acquired from the foramen magnum to the vertex. After the administration of intravenous contrast, 1 mm thick sections acquired from the aortic arch through the [place]. Post-contrast 4.5 mm thick sections then re- acquired from the foramen magnum to the vertex. 3-dimensional arrxfgh-zbsdwtiko-xkkywhwpcu (MIP) and/or volume rendering reformats were acquired of the central intracranial vasculature and neck separately. COMPARISON: [facility], CT, CT ANGIO HEAD AND NECK, 04/19/2018, 13:09. [facility], CT, CT HEAD/BRAIN WO CON, 01/03/2019, 12:50. [facility], CT, CT HEAD/BRAIN WO CON, 04/19/2018, 11:04. FINDINGS: Image quality: Excellent. BRAIN: CSF spaces: Ventricles are normal in size and shape. Basal cisterns are patent. No extra-axial fluid collections. Brain: No midline shift. No intracranial bleeds or masses. Chronic bilateral frontal and right occipital infarcts are stable compared to prior exams. Skull and face: Calvarium and facial bones appear intact, without suspicious lesions. Orbits appear normal. Sinuses: Sinuses and mastoids are clear. HEAD CT ANGIOGRAPHY: Anterior circulation: Intracranial internal carotid arteries are normal in flow. Atherosclerotic calcifications noted in the cavernous and clinoid segments of the internal carotid arteries bilaterally which cause mild multifocal stenoses. Soft atherosclerotic plaque is noted in the petrous segment of the right internal carotid artery which causes moderate stenosis. The flow within the paired anterior cerebral arteries is normal and symmetric. 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 The flow within the middle cerebral arteries is normal and symmetric. There is a markedly diminished flow in ashlyn-inferior M2 branch of the left middle cerebral artery concerning for presence of flow limiting thrombus. The anterior communicating artery is seen. No aneurysms are seen. Posterior circulation: Visualized portions of the vertebral arteries demonstr ate normal caliber, and join to form a normal appearing basilar artery. Atherosclerotic calcifications noted in the V4 segment of the left vertebral artery which causes mild stenosis. Flow within the posterior cerebral arteries is normal and symmetric. No aneurysms are seen. Dural sinuses demonstrate normal postcontrast enhancement. NECK CT ANGIOGRAPHY: Carotid system: Aberrant right subclavian artery is redemonstrated. The origins of the common carotid arteries appear patent. The common carotid arteries demonstrate normal caliber and courses. The bifurcation regions are both widely patent. The internal carotid arteries demonstrate normal calibers and courses. Posterior circulation: The origins of the vertebral arteries both appear widely patent. The more superior extracranial portions of both vertebral arteries also demonstrate normal courses and calibers. They join to form a normal appearing basilar artery. Soft tissues: Visualized neck soft tissues demonstrate no suspicious abnormalities. Bones: No suspicious bony lesions. Spine degenerative disc disease and facet arthropathy. Visualized cervical spine appears normally aligned. IMPRESSION: 1. No acute intracranial disease process. 2. Diminished flow in an anterior-inferior M2 branch of the left middle cerebral artery concerning for flow limiting thrombus. 3. Moderate atherosclerotic stenosis of the petrous segment of the intracranial right internal carotid artery. 4. Mild atherosclerotic stenosis of the cavernous and clinoid segments of the intracranial bilateral internal carotid arteries. It appears that the ED physician has discussed the case with neurology, Dr. Lieberman, stroke team at [facility]. TPA was not recommended (see Dr. Read's ED note). Patient is not a candidate for acute thrombectomy. Patient already on Plavix. A recommendation made to add aspirin to her regimen. 5. Cervical segments of the internal carotid arteries are fully patent. 6. Mild atherosclerotic stenosis of the V4 segment of the left vertebral artery. 7. Cervical segments the vertebral arteries are fully patent. Patient is left vertebral artery dominant. Patient History Medical History (Updated 01/03/19 @ 21:30 by TERRELL Byrd) Depression with anxiety (Chronic) Hyperlipidemia associated with type 2 diabetes mellitus (Chronic) Migraine (Chronic) Morbid obesity with BMI of 45.0-49.9, adult (Chronic) Type 2 diabetes mellitus (Chronic) History of stroke (Resolved) Surgical History (Updated 01/03/19 @ 19:46 by TERRELL Byrd) S/P cholecystectomy (Inactive) S/P trigger finger release (Inactive) History of spinal surgery (Resolved) History of (Inactive) History of ventral hernia repair (Inactive) Family History Other Family history non-contributory Social History household members: none Smoking Status: Never smoker alcohol intake: never Family & Social History Family History Other Family history non-contributory Social History: household members none Safety & Behavioral: Feels Safe in Current Yes Environment Tobacco & Substance use: Smoking Status Never smoker; known to have secondhand smoke exposure alcohol intake never alcohol intake frequency 0-2 drinks per day Substance Use Type does not use Meds Home Medications Medication Instructions Recorded Confirmed Type clopidogrel [Plavix] 75 mg PO DAILY #0 06/15/17 01/03/19 History fenofibrate 54 mg PO DAILY #0 06/15/17 01/03/19 History metformin 500 mg PO BID 02/02/18 01/03/19 History gabapentin 600 mg PO TID PRN 04/19/18 01/03/19 History ibuprofen 1 tab PO TID PRN 04/19/18 01/03/19 History calcium carbonate [Calcium 500] 2,000 mg PO QID 05/21/18 01/03/19 History magnesium 600 mg PO DAILY 05/21/18 01/03/19 History bupropion HCl 300 mg PO DAILY 10/25/18 01/03/19 History sertraline 150 mg PO DAILY 10/25/18 01/03/19 History trazodone 150 mg PO BEDTIME 10/25/18 01/03/19 History verapamil 80 mg PO TID 10/25/18 01/03/19 History Allergies Allergy/AdvReac Type Severity Reaction Status Date / Time vancomycin Allergy Intermediate Flushing Verified 04/19/18 15:17 Review of Systems Review of Systems All systems reviewed & are unremarkable except as noted in HPI and below Exam Vital Signs (past 8 hours): - 01/03/19 13:05 01/03/19 14:30 01/03/19 15:30 Temperature 97.7 F Pulse Rate 84 83 79 Respiratory Rate 14 14 12 Blood Pressure 129/62 Blood Pressure [Right Arm] 121/88 135/73 Pulse Oximetry 99 92 97 01/03/19 16:07 01/03/19 16:40 Temperature 96.8 F L Pulse Rate 81 80 Respiratory Rate 14 16 Blood Pressure 135/70 125/65 Blood Pressure [Right Arm] Pulse Oximetry 93 98 Oxygen Delivery Method Room Air Oxygen Flow Rate 0 Narrative Exam Narrative: Constitutional: NAD Neurologic: AOx3, right sided weakness, limb dysmetria, diminished sensation right face, RUE, and RLE, dysarthria, comprehension intact Head: NC, AT Eyes: PERRL, EOMI, Ears: external ears normal, no otorrhea Nose: external nose normal, no rhinorrhea or epistaxis Throat: DRY MM, oropharynx w/o exudate Neck: no masses, lymphadenopathy, or JVD Chest / Respiratory: equal chest rise, unlabored respiratory effort, no tachypnea, diminished Heart / CV: S1S2, no murmur Abdomen / GI: round, central obesity, NT, ND, + BS, no organomegaly : no suprapubic tenderness, no CVA Peripheral / Vascular: warm to touch, DP and PT pulses palpable, no edema Musc: right sided weakness, diminshed ROM of RLE, diminsined ROM of LUE Skin: no ecchymosis or suspicious lesions / ulcers Objective Labs Result Diagrams: 01/03/19 13:04 01/03/19 13:04 Labs: Laboratory Results - last 24 hr 01/03/19 01/03/19 01/03/19 13:04 13:04 13:04 WBC 5.3 RBC 4.33 Hgb 12.2 Hct 37.5 MCV 86.5 MCH 28.3 MCHC 32.7 RDW 15.0 H Plt Count 326 Neut % (Auto) 60.2 Lymph % (Auto) 27.2 [place] % (Auto) 9.2 Eos % (Auto) 2.2 Baso % (Auto) 1.2 Neut # (Auto) 3200 Lymph # (Auto) 1400 [place] # (Auto) 500 Eos # (Auto) 100 Baso # (Auto) 100 PT 11.4 INR 1.0 APTT 32 D Sodium 140 Potassium 4.6 Chloride 105 Carbon Dioxide 27 BUN 25 H Creatinine 1.00 Estimated GFR 55.5 L BUN/Creatinine Ratio 25.0 H Glucose 110 Calcium 9.8 Troponin I < 0.012 Assessment & Plan Assessment & Plan narrative: Dysarthria, acute, present on admission Concern for a new stroke. Admitted for stroke rule out. Not a candidate for tPA or thrombectomy. 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 - Risk stratify: A1C, FLP (currently not on a statin) - NIHSS on presentation to the unit, then Q shift until discontinued - Neuro checks per stroke protocol, Q2Hx4, then Q4H - Tele monitoring - Supplemental O2 to keep SpO2 > 92% - NPO, may advanced diet to heart healthy, diabetic if passes bedside swallow - Consult PT, OT, SP - Stroke Edu Migraine Headaches w/ aura, qmnkh-wy-yshqxsy, present on admission Received morphine in ED - Cocktail of 25 IV benadryl, 10 IV compazine, and 30 IV toradol Cough w/ purulence, acute, present on admission - Viral respiratory panel - CXR DM 2T, acute, present on admission - Currently NPO, accu-checks Q6H while NPO - No need for SSI at this time, will trend blood glucose with BID glucose checks - A1C in am Essential Hypertension, chronic, present on admission, stable BP controlled. 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 - Trend BP - Will hold REHABILITATION CASEWORKER anti-hypertensive to avoid hypotension. To be re-evaluated in am. 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 Not on a statin. - FLP for risk stratification, goal for LDL < 70 (h/o LDL 67 04/2018) Scores NIHSS Level of Conciousness: Alert, keenly responsive Ask month/age: Answers both questions correctly. Open/close eyes, close hand: Performs both tasks correctly Best gaze horizontal: Normal Visual graff: No visual loss Facial palsy: Normal symetrical movement Left arm drift: Drifts down, not to bed Right arm drift: No drift for full 10 sec Left leg drift: No drift for full 10 sec Right leg drift: Some effort against gravity, cannot maintain, drifts down to bed Limb ataxia: Present in two limbs Sensory on face/arms/legs: Mild to moderate sensory loss, can tell touch Best language: Mild to moderate, slurs some words Dysarthria: Mild to mod,some slurring Extinction or inattention: No abnormality Total NIH Stroke scale score: 8 Quality VTE Deep Vein Thrombosis/Pulmonary Embolism Present on Admission: No
--- NOTE | 2019-01-03 19:53 | DI.MRI.S_ITS ---
PROCEDURE: MR STROKE Pre- and post-contrast brain MRI, non-contrast brain MR angiogram, pre- and postcontrast neck MR angiogram INDICATIONS: dysarthria TECHNIQUE: Brain: Noncontrast axial T1 spin echo, axial T2 fast spin echo, sagittal and axial FLAIR, coronal T2 fast spin echo, axial gradient echo, axial diffusion and ADC through the brain. After the administration of contrast, axial 3D VIBE of the cranial vasculature and brain. Brain MRA: Non-contrast 3-D time of flight MR angiogram, with multiple zwlqpfr-ljjsudbfo-bowhgccnhm (MIP) reformats performed. Neck MRA: Axial and sagittal TruFISP through the neck. Coronal dynamic MR angiogram during administration of contrast in the arterial and venous phases, with 3-dimenstional puufkns-kiclfampi-tmfrugztst (MIP) reformats constructed from subtraction images. COMPARISON: [facility], CT, CT ANGIO HEAD AND NECK, 04/19/2018, 13:09. [facility], MR, STROKE PROTOCOL, 02/22/2011, 8:30. FINDINGS: Image quality: Excellent. BRAIN: CSF spaces: Ventricles are normal in size and shape. Basal cisterns are patent. No extra-axial fluid collections. Brain: No intracranial bleeds or mass effects. No restricted diffusion. No acute stroke. Old small focal bilateral MCA infarcts, involving the right frontal region and left frontotemporal region. [place]-white matter interface is normal. Diffusion weighted images show no acute ischemic insults. Brainstem appears normal. Normal intravascular flow voids are present. No abnormal intracranial enhancement. Incidental note is made of the presence of an empty sella. Skull and face: Calvarial marrow signal is normal. Orbits appear normal. Sinuses: Sinuses and mastoids are clear. BRAIN MR ANGIOGRAM: Anterior circulation: No stenoses, occlusions, or aneurysms. Normal variant atresia of the A1 segment of the right anterior cerebral artery. Posterior circulation: The visualized portions of the vertebral arteries demonstrate normal caliber, and join to form a normal appearing basilar artery. The flow within the posterior cerebral arteries is normal and symmetric. No stenoses, occlusions, or aneurysms. NECK MR ANGIOGRAM: Carotids: Normal variant anatomy aberrant right subclavian off the proximal descending thoracic aorta. The origins of the common carotid arteries appear patent. The calibers and courses of both common carotid arteries are normal. The bifurcation regions appear normal bilaterally. The internal carotid arteries demonstrate normal course and caliber. Posterior circulation: The origins of the vertebral arteries appear patent. More superior portions of both vertebral arteries demonstrate normal course and caliber, and join to form a normal appearing basilar artery. Miscellaneous: Subclavian arteries appear patent. Pre-contrast images through the neck show no soft tissue abnormalities. IMPRESSION: BRAIN MRI: 1. No evidence acute stroke, hemorrhage, or mass. 2. Old focal bilateral MCA distribution infarcts. BRAIN MR ANGIOGRAM: 1. No evidence aneurysm, stenosis, or occlusion. NECK MR ANGIOGRAM: Incidental note made of the presence of an aberrant right subclavian. No significant stenosis. Bilateral internal carotids are widely patent Dictated by: Johnathon Lake M.D. on 01/03/2019 at 21:50 Approved by: Johnathon Lake M.D. on 01/03/2019 at 22:01
[2019-01-03] MEDS: SODIUM CHLORIDE 0.9% 1,000 ML 75 ML IV (22:27)
[2019-01-03] MEDS: KETOROLAC 30 MG/ML VIAL IV (22:29)
[2019-01-03] MEDS: PROCHLORPERAZINE 10 MG/2 ML VIAL IV (22:29)
[2019-01-03] MEDS: diphenhydrAMINE 50 MG/ML VIAL 25 MG IV (22:33)
[2019-01-04] VITALS (7 sets, daily range): BP systolic 120–158; BP diastolic 47–85; PULSE 82–88; RESP 16–18; TEMP 36.4–36.8; O2SAT 93–97
[2019-01-04 05:34] LABS: Add Manual Diff / Slide Review NO; Basophils Absolute Auto 100 /uL (0-100); Basophils Percent Auto 1.1 % (0-2); Eosinophils Absolute Auto 100 /uL (0-450); Eosinophils Percent Auto 3.2 % (2-4); Hematocrit 35.2 % (36-46); Hemoglobin 11.9 g/dL (12.0-16.0); Lymphocytes Absolute Auto 1300 /uL (1100-4500); Mean Corpuscular HGB Conc 33.8 % (30-36); Mean Corpuscular Hemoglobin 29.2 PG (26-34); Mean Corpuscular Volume 86.4 fL (80-100); Monocytes Absolute Auto 500 /uL (0-900); Monocytes Percent Auto 11.5 % (3-14); Neutrophils Absolute Auto 2400 /uL (1500-7000); Neutrophils Percent Auto 54.2 % (50-75); Platelet Count 290 X10^3/uL (150-400); Red Blood Cell Count 4.08 X10^6/uL (4.0-5.2); Red Cell Distribution Width 15.1 % (11.6-14.8); White Blood Cell Count 4.4 X10^3/uL (4.5-11.0)
[2019-01-04 05:45] LABS: Blood Urea Nitrogen 20 mg/dL (7-17); Carbon Dioxide 28 mmol/L (22-32); Chloride 106 mmol/L (98-107); Estimated Glomerular Filt Rate 55.5 mL/min (>60); Glucose 99 mg/dL (80-110); HEMOLYSIS < 15 (0-50); Potassium 4.2 mmol/L (3.4-5.1); Sodium 141 mmol/L (137-145)
[2019-01-04 05:47] LABS: Cholesterol 103 mg/dL (140-199); HDL Cholesterol 42 mg/dL (40-60); LDL Cholesterol Calculated 45 mg/dL (<100); Triglycerides 81 mg/dL (35-150); VLDL Cholesterol Calculated 16 mg/dL (2-30)
[2019-01-04 05:57] LABS: Hemoglobin A1C% w Est Avg Glu 6.1 % (4.0-6.0)
--- NOTE | 2019-01-04 06:00 | DI.ECHO.S_ITS ---
[facility] +---------+ [facility] +---------+ : : [address] [place] : : : : [id number] : : : : Phone: [phone] Echocardiogram Report + + :Name: SUSAN MCFADDEN Study Date: 01/04/2019 Height: 64 in : :[facility] Exam Location: [facility] Weight: 285 lb : : Gender: Female BSA: 2.3 m2 : :: 1950 Age: 68 yrs BP: 158/82 mmHg: :Reason For Study: EMBOLISM, STROKE, DYSARRHYTHMIA : : Performed By: Harley Worrell : :Referring: LAMONTE RANDALL : + + Interpretation Summary The left ventricle is normal in size, wall thickness, and systolic function without any focal wall motion abnormalities with the ejection fraction visually estimated to be 60-65% and grossly appears unchanged compared to the previous study. Diastolic parameters suggest a relaxation abnormality of the left ventricle, consistent with probable normal filling pressures. The right ventricle is not well visualized but grossly appears normal in size with systolic function that is borderline reduced, and appears slightly larger and less dynamic compared to the previous study. Pulmonary artery pressures cannot be estimated because of the lack of a measurable TR jet velocity. The left atrium is moderately dilated and is unchanged compared to the previous study. There is mild to moderate mitral regurgitation that is unchanged compared to the previous study. There is no other significant valvular heart disease. The patient was in normal sinus rhythm during the exam which has replaced atrial flutter since the previous study. Procedure: A two-dimensional transthoracic echocardiogram with color flow and Doppler was performed. The study quality was technically adequate. Comparison is made with the echocardiogram of 05/22/18. The subcostal views were difficult to obtain and are suboptimal in quality. The suprasternal notch views were difficult to obtain and are suboptimal in quality. The patient was in normal sinus rhythm during the exam. Which has replaced atrial flutter since the previous study. Left Ventricle: The left ventricle is normal in size, wall thickness, and systolic function without any focal wall motion abnormalities. The ejection fraction is estimated to be 60-65%. This is unchanged compared to the previous study. Diastolic parameters suggest a relaxation abnormality of the left ventricle, consistent with probable normal filling pressures. Right Ventricle: The right ventricle is not well visualized. The right ventricle is grossly normal size. Right ventricular systolic function is borderline reduced. This is appears slightly larger and less dynamic compared to the previous study. Atria: The left atrium is moderately dilated. This is unchanged compared to the previous study. Right atrial size is normal. This is unchanged compared to the previous study. The interatrial septum is intact with no evidence for an atrial septal defect. Mitral Valve: There is mild to moderate mitral annular calcification. The mitral valve leaflets are mildly calcified. There is mild to moderate mitral regurgitation. This is unchanged compared to the previous study. Aortic Valve: The aortic valve is trileaflet. The aortic valve is slightly calcified. The aortic valve opens well. No aortic regurgitation is present. Tricuspid Valve: The tricuspid valve is normal in structure and function. There is trace tricuspid regurgitation. Pulmonary artery pressures cannot be estimated because of the lack of a measurable TR jet velocity. Pulmonic Valve: The pulmonic valve is normal in structure and function. There is trace pulmonic regurgitation. There is no other significant valvular heart disease. Great Vessels: The aortic root is normal size. The dimensions of the ascending aorta are normal. The pulmonary artery is normal size. The inferior vena cava was not well visualized. Pericardium/ Pleura There is an anterior echo-free space consistent with a fat pad. There is no pericardial effusion. There is no pleural effusion. MMode/2D Measurements & Calculations LVIDd: 5.0 cm LVOT diam: 2.1 cm LVIDs: 2.9 cm Ao root diam: 3.2 cm FS: 40.5 % asc Aorta Diam: 3.1 cm EPSS: 0.71 cm IVSd: 0.69 cm LVPWd: 0.88 cm LV kiran. diameter/BSA (cm/m^2): 2.2 LV sys. diameter/BSA (cm/m^2): 1.3 LA dimension: 3.8 cm RA long axis: 3.9 cm LA A2 area: 31.0 cm2 RA area: 12.0 cm2 LA A4 area: 29.9 cm2 RA vol: 32.0 ml LA length (vol): 7.8 cm RA : 14.1 ml/m2 LA vol: 101.3 ml LA vol index: 44.6 ml/m2 Doppler Measurements & Calculations Ao V2 max: 149.7 cm/sec LVOT Max Rudy: 97.7 cm/sec Ao V2 mean: 106.2 cm/sec LV V1 max P.8 mmHg Ao max P.0 mmHg LV V1 VTI: 23.7 cm Ao mean P.9 mmHg ADOLPH(I,D): 2.5 cm2 Ao V2 VTI: 31.8 cm ADOLPH(V,D): 2.2 cm2 sev ratio: 0.75 ADOLPH indexed to BSA (cm^2/m^2): 1.1 MV E max rudy: 100.6 cm/sec TR max rudy: 214.7 cm/sec MV A max rudy: 115.6 cm/sec TR max P.4 mmHg MV E/A: 0.87 PA V2 max: 94.7 cm/sec Med Peak E' Rudy: 5.4 cm/sec PA V2 mean: 60.0 cm/sec E/E' med: 18.7 PA mean P.6 mmHg Lat Peak E' Rudy: 5.7 cm/sec PA pr(Accel): 51.6 mmHg E/E' lat: 17.7 E/e' average: 18.2 MV dec time: 0.23 sec SV(LVOT): 79.0 ml Reading Physician:TOMI
[2019-01-04 06:10] LABS: RBC Urine None Seen (0-5/HPF)
[2019-01-04 06:23] LABS: Appearance Urine UA CLEAR; Bilirubin Urine UA NEGATIVE (NEGATIVE); Color Urine UA YELLOW; Glucose Urine UA NEGATIVE (Negative); Ketones Urine UA NEGATIVE (NEGATIVE); Leukocyte Esterase Urine UA TRACE (NEGATIVE); Nitrite Urine UA POSITIVE (Negative); Occult Blood Urine UA NEGATIVE (Negative); Protein Urine UA NEGATIVE (Negative); Urobilinogen Urine UA 0.2 E.U./dL (0.2)
[2019-01-04 06:35] LABS: Bacteria Urine Many (>30); Culture Indicated Urine Specimen Cultured; WBC Urine 1-5/HPF (0-5/HPF)
--- NOTE | 2019-01-04 08:32 | CM.DANOTE ---
Discharge Planning/Care Management DCP: assessment: case received, EMR reviewed and met with pt. Introduced self and role. Pt is a 68 year old female who admitted yesterday afternoon to care of hospitalist team. PCP: unknown at this point. Payer: Medicare and Medicaid. Admission status: in review by UR RN at this time. Pt is able to participate in assessment process with this [place] city planner, her words are halting but the information given seems appropriate and accurate. She indicates she is able to understand what is being said but finding the words takes time. Pt does confirm she is on [facility] program with caregivers 4 x week. Her daughter Gabibe Roberson: [phone] lives in the same apartment complex at and is very close by. She says Gabbie and her children check in on her frequently. Pt has had [facility] in past, a check in with Yamini/Emilia indicates she is not currently open to those services. Pt has had Meals on Wheels in past and used a 4ww. Will see if these are still in place. Anticipate CREDIT RISK MANAGER OT and PT will be ordered. Will discuss case in Team Rounds this morning and go from their. Plan to contact Gabbie today as more is known re full dx and POC. CM Discharge Assessment Start: 01/04/19 08:24 Freq: Status: Active Protocol: Document 01/04/19 08:26 ITV (Rec: 01/04/19 08:32 ITV [id number]) Discharge Planning Assessment Advance Directives? Yes Advance Directives on File Yes History Provided By Patient Medical Record Household Members none Comment daughter Gabbie Roberson lives in apt near pt. Checks on her frequently Type of transporation used prior to Relies on Others admit Independent with ADL's No Is patient alert and oriented? Yes Caregiver for Another No Whiteboard Updated in Patient Room with Yes name and ext. 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
[2019-01-04] MEDS: CLOPIDOGREL 75 MG TABLET PO (08:40)
[2019-01-04] MEDS: ASPIRIN EC 325 MG TABLET PO (08:41)
--- NOTE | 2019-01-04 12:02 | PT.IIE ---
Surgical History (Last Updated 01/03/19 @ 19:46 by TERRELL Byrd) S/P cholecystectomy (Inactive) S/P trigger finger release (Inactive) History of spinal surgery (Resolved) History of (Inactive) History of ventral hernia repair (Inactive) Medical History (Last Updated 01/03/19 @ 21:30 by TERRELL Byrd) Depression with anxiety (Chronic) Hyperlipidemia associated with type 2 diabetes mellitus (Chronic) Migraine (Chronic) Morbid obesity with BMI of 45.0-49.9, adult (Chronic) Type 2 diabetes mellitus (Chronic) History of stroke (Resolved) Physical Therapy Inpatient Evaluation/Re-Eval M1 PT/OT-IP Prior Functional Status Start: 01/04/19 11:33 Freq: NEEDED Status: Active Protocol: Document 01/04/19 10:15 (Rec: 01/04/19 12:02 [id number]) Medical Review Prior Functional Status Medical History Reviewed Yes Communication slow and garbled speech when she has migraine episodes. Able to make needs known. Mobility and Gait Pt uses 4WW at all times for home and community mobility. She did fall in September but not a frequent christa. She has CG 4x/week that takes her for walk 30 mins every time. Activities of Daily Living and IADL's Pt is independent for ADLs but uses Meals on Wheels. CG assist her for house cleaning, MD's appt, grocery shopping. Social History Household Members none Living Arrangements Apartment/Condo Number of Floors (Floors) One Floor Number of Stairs To Enter/Railing? No SARAI Home Environment Standard Height Toilet Tub/Shower Home Equipment Four Wheel Walker Tub Transfer Bench Grab Bars In Shower Employment Status Retired Additional Social History Comment Pt is able to participate in PT eval. Her words are halting and slow but the information given seems appropriate and accurate. She indicates she is able to understand what is being said but finding the words takes time. Pt does confirm she is on [facility] program with caregivers 4 x week. Her daughter Gabbie Roberson: lives in the same apartment complex at and is very close by. She says Gabbie and her children check in on her everyday. 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 She stated her neurologist said she has residual migrain from time to time which affects her speech temporarily and goes away. 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 Pt has had [facility] in past. Pt also has had Meals on Wheels in past and used a 4ww. M2 PT-IP Current Condition Start: 01/04/19 11:33 Freq: NEEDED Status: Active Protocol: Document 01/04/19 10:15 HH (Rec: 01/04/19 12:02 [id number]) Physical Therapy Current Condition Current Condition Evaluation Date 01/04/19 Treatment Diagnosis Stroke like symptoms, migraine , imparied gait, increased weakness Onset Date 01/01/19 Weight Bearing Status Weight Bearing Status Weight Bear as Tolerated M3 PT-IP Subjective Start: 01/04/19 11:33 Freq: NEEDED Status: Active Protocol: Document 01/04/19 10:15 HH (Rec: 01/04/19 12:02 [id number]) Subjective Physical Therapy Visit Type Type Initial Evaluation Visit Start Time 10:15 Visit Stop Time 10:50 Total Visit Minutes 35 Notes Per RN, pt required 2PA for BSC with FWW. Grable and slow speech noted. Number of FIRE REGULATOR Visits 0 Physical Therapy Visit Comments Patient Comments My R side weakness feels the same but my migraine has been getting better. Patient Goals To return home. Therapy Pain Assessment Pain When Pain Assessed At Rest Pain Present Pain Present Pain Reported Location Head Intensity 4 Scale Used Numeric (1 - 10) Description Pressure Pain Management Techniques Modification of Treatment Re-positioning Timing of Activity with Medications M4 PT-IP Mobility and Gait Start: 01/04/19 11:33 Freq: NEEDED Status: Active Protocol: Document 01/04/19 10:15 HH (Rec: 01/04/19 12:02 [id number]) PT-Bed Mobility Assessment Rolling Type of Rolling Roll to Left Level of Assist Contact Guard Assistance Supine to Sit Supine to Sit Minimal Assistance Head of Bed Elevated Bedrails Scooting Scooting to Edge of Bed Minimal Assistance PT-Transfer Assessment Sit to and From Stand Sit to and from Stand Moderate Assistance 2 Person Assistance Use of Upper Extremities Equipment Transfer Assistive Device Front Wheeled Walker Orthotic/Prosthetic Devices or Brace: No Transfers Transfer Destination Bed Chair Transfer Technique Stand Step Pivot Transfer Ability Level of Assist Moderate Assistance 2 Person Assistance Use of Upper Extremities Comments Mobility Comments BP in supine 130s/80s HR 90s BP post transfer 87/48 HR 88 BP after 5 mins rest 127/88 HR 90s Pt required min A for supine to sit and she tends to hold her breath. Bariatric FWW used for transfer and pt performed sit to stand then stand pivot transfer to bedside chair. Pt was unsteady with a foot drag during pivoting. She stated I have a hard time picking up my R legs up and it feels very weak. Pt also c/o lightheadedness post transfer and requested to sit and rest. Max cues needed for breathing. Gait Assessment Comments Gait Comments Pt was unable to amb due to weakness. Stair Climbing Assessment Comments Stair Climbing Comments Pt was unable to amb due to weakness. PT-Balance Assessment Sitting Balance and Reactions Static Sitting Balance Ability Good Dynamic Sitting Balance Ability Fair Standing Balance and Reactions Static Standing Balance Ability Fair Dynamic Standing Balance Ability Fair Device Used FWW M5 PT-IP Objective Assessments Start: 01/04/19 11:33 Freq: NEEDED Status: Active Protocol: Document 01/04/19 10:15 (Rec: 01/04/19 12:02 [id number]) Orientation Orientation/Cognition Level of Alertness Alert Orientation Name Age Birthday Month Date Year Day of Week Place Situation Language Function Ability Garbled Speech Word Finding Difficulties Safety Awareness Understands Safety Issues Memory Description No Deficits Noted Gross Range of Motion Upper Extremity ROM Assessment Right Impaired Impairments unable to reach behind her head Lower Extremity ROM Assessment Right Impaired Impairments unable to perform full knee extension Strength Upper Extremity Strength Assessment Right Impaired Shoulder 3+/5 Elbow 3+/5 Wrist 3/5 Hand 3/5 Lower Extremity Strength Assessment Right Impaired Hip 3+/5 Knee 3+/5 Ankle 3/5 Comments Strength Comments increased WB on LLE during standing. Coordination Assessment Gross Coordination Gross Coordination Impaired Assessment Finger to Nose Test Minimal Impairment Pronation/Supination Test Minimal Impairment Sensation Assessment Sensation Gross Sensation Right UE Impaired Right LE Impaired Light Touch Impaired Proprioception (Position) Impaired Sensation Description Numbness Tingling Comments Sensation Comments decreased sensitivity to LT and pressure on RUE and RLE Muscle Tone Muscle Tone WNL No M6 PT-IP Treatment Start: 01/04/19 11:33 Freq: NEEDED Status: Active Protocol: Document 01/04/19 10:15 (Rec: 01/04/19 12:02 [id number]) Physical Therapy Treatment Education Education Provided Safety M7 PT-IP Assessment and Plan Start: 01/04/19 11:33 Freq: NEEDED Status: Active Protocol: Document 01/04/19 10:15 (Rec: 01/04/19 12:02 [id number]) PT Summary Assessment and Plan Potential Rehabilitation Potential Good Status of Condition at Evaluation Evolving Summary Impairments ROM Strength Balance Sensation Bed Mobility Transfers Gait Activity Tolerance Assessment Summary Pt is a mod complexity with min A for bed mob and mod A for transfers with 2PA. Pt is unable to amb today due to significant weakness on R UE and R LE (3 to 3+/5 grossly). Pt presents difficulty lifting her R LE / fully WB on RLE. She reports she is somewhat 40 % of her baseline mobility. Pt showed possible OHTN during transfers. Her BP went from 130s/80s to 87/47 after transfers and required 5 mins to recover to baseline. Notified EVERETT Flood and kenneth to use BSC for toileting. Discussed with pt her needs for rehab and pt requested to be FCC. Pt is very far from her baseline at this point and is not safe to d/c home since she lives alone. Pt will benefit from d/c to SNF to improve mobility. Goals Bed Mobility Goal Contact Guard Assistance Transfer Goal Contact Guard Assistance Front Wheeled Walker Four Wheeled Walker Gait Goal Contact Guard Assistance Front Wheel Walker Four Wheel Walker Gait Distance 30 Days to Meet Goals 10 Frequency of Treatment Frequency Of Treatment Once a Day Treatment Plan Physical Therapy Treatment Plan Bed Mobility Training Transfer Training Gait Training Therapeutic Exercise Balance Retraining Discharge Planning Other Recommendations and Next Treatment bed mob, transfers, amb as ellie Focus Recommendations To Nursing Amount of Assist Needed 2 Person Assist Discharge Recommendations PT Discharge Recommendations SNF Rehab Other Discharge Recommendations Discussed with pt her needs for rehab and pt requested to be FCC. Pt is very far from her baseline at this point and is not safe to d/c home since she lives alone. Pt will benefit from d/c to SNF to improve mobility. Equipment Needed for Home Before FWW, raised toilet seat Discharge
[2019-01-04] MEDS: IBUPROFEN 600 MG TABLET PO ×2 (13:28→21:41)
[2019-01-04] MEDS: GABAPENTIN 600 MG TABLET PO ×3 (13:28→20:22)
--- NOTE | 2019-01-04 14:31 | OT.IP.EVAL ---
Current Diagnoses Type 2 diabetes mellitus without complications (01/03/19) Morbid (severe) obesity due to excess calories (01/03/19) Hyperlipidemia, unspecified (01/03/19) Migraine, unspecified, not intractable, without status migrainosus (01/03/19) Essential (primary) hypertension (01/03/19) Past Medical History (Last Updated 01/03/19 @ 21:30 by TERRELL Byrd) Depression with anxiety (Chronic) Hyperlipidemia associated with type 2 diabetes mellitus (Chronic) Migraine (Chronic) Morbid obesity with BMI of 45.0-49.9, adult (Chronic) Type 2 diabetes mellitus (Chronic) History of stroke (Resolved) Surgical History (Last Updated 01/03/19 @ 19:46 by TERRELL Byrd) S/P cholecystectomy (Inactive) S/P trigger finger release (Inactive) History of spinal surgery (Resolved) History of (Inactive) History of ventral hernia repair (Inactive) Occupational Therapy Inpatient Evaluation/Re-Eval M1 PT/OT-IP Prior Functional Status Start: 01/04/19 11:33 Freq: NEEDED Status: Active Protocol: Document 01/04/19 14:31 PJM (Rec: 01/04/19 19:46 PJM [id number]) Medical Review Prior Functional Status Medical History Reviewed Yes Diet/Fluid Consistency Regular Communication slow and garbled speech when she has migraine episodes. Able to make needs known. Mobility and Gait Pt uses 4WW at all times for home and community mobility. Activities of Daily Living and IADL's Pt is independent with eating, grooming, dressing and SBA from caregiver for bathing. Pt has caregiver 4 days/week, 8 hrs/day who assists with senior courtroom clerk, meal prep, grocery shopping, transport. Pt also receives Meals on Wheels. Pt's daughter lives in same [facility] complex and checks in with pt on weekends. Prior Functional Level (Other details) Pt has a cat. Pt walks for 30 min at a time with her caregiver using 4WW in her neighborhood. Social History Household Members none Living Arrangements Apartment/Condo Number of Floors (Floors) One Floor Number of Stairs To Enter/Railing? No SARAI Home Environment Standard Height Toilet Tub/Shower Home Equipment Four Wheel Walker Tub Transfer Bench Leg Barmaid Long Handled Sponge Sr. Media Manager Sock Aid Grab Bars In Shower Employment Status Retired M2 OT-IP Current Condition Start: 01/04/19 19:16 Freq: Status: Active Protocol: Document 01/04/19 14:31 PJM (Rec: 01/04/19 19:46 PJ [id number]) Occupational Therapy Current Condition Current Condition Evaluation Date 01/04/19 Treatment Diagnosis decr'd self care,mobility,R side weakness; MRI neg, DX: migraine with neuro deficits Diagnosis Onset Date 01/03/19 Post Operative Precautions Other Precautions fall risk, R side weakness M3 OT- IP Subjective and Pain Start: 01/04/19 19:16 Freq: Status: Active Protocol: Document 01/04/19 14:31 PJM (Rec: 01/04/19 19:46 PJ [id number]) OT- Subjective Occupational Therapy Visit Type Type Initial Evaluation Visit Start Time 13:55 Visit Stop Time 14:31 Total Visit Minutes 36 Occupational Therapy Visit Comments Patient Comments I can't go home until I get better because I am alone 3 days a week and at night. Patient/Caregiver Goals to get stronger so she can go home and see her cat; to continue outdoor walks with caregiver OT Pain Assessment Pain When Pain Assessed After Treatment Pain Present Pain Present Pain Reported Location Head Intensity 6 Scale Used R side of head Description Aching Acute Management Techniques Distraction Re-positioning Timing of Activity with Medications M4 OT- IP ADL's Start: 01/04/19 19:16 Freq: Status: Active Protocol: Document 01/04/19 14:31 PJM (Rec: 01/04/19 19:46 [facility] [id number]) OT [id number]-[id number] General Evaluation Self-Feeding Ability Independent Comments OT Self-Feeding Comments pt reports using R hand to feed herself lunch but not observed OT ADL-Grooming General Evaluation Grooming Ability Standby Assistance Areas Needing Assistance Face Washing OT ADL-Oral Care Comments Oral Care Comments did not occur, to be assessed OT ADL-Dressing General Eval Lower Body Dressing Ability Minimal Assistance Areas Needing Assistance Socks Assistive Devices Dressing Assistive Devices Sr. Media Manager Sock Aid Comments OT Dressing Comments pt able to doff socks with min assist with precision devices inspector/tester and don them with SBA and min cues with sock aid; pt familiar with these devices from home use OT ADL-Toileting General Evaluation Toileting Ability Standby Assistance Areas Needing Assistance Perform Perineal Hygiene Comments OT Toileting Comments after urinating on BSC OT ADL-Bathing Comments OT Bathing Comments to be assessed as mobility/ endurance improve M5 OT- IP IADL's Start: 01/04/19 19:16 Freq: Status: Active Protocol: Document 01/04/19 14:31 PJM (Rec: 01/04/19 19:46 PJM [id number]) OT-Instrumental Activities of Daily Living Deficits IADL Deficits Identified Deficits Home Safety Awareness Awareness of Need for Assistance at Home Good Awareness Ability to Problem Solve Emergency Able to Problem Solve Situations Medication Management Medication Management No Deficits Identified Money Management Money Management No Deficits Identified Meal Preparation Meal Preparation Caregiver Provides Assist Shank Stapler Shank Stapler Caregiver Provides Assist Driving Driving Caregiver Provides Assist M6 OT- IP Functional Cognition Start: 01/04/19 19:16 Freq: Status: Active Protocol: Document 01/04/19 14:31 PJM (Rec: 01/04/19 19:46 PJ [id number]) Cognitive Factors Limiting Selfcare Function Cognitive Ability Level of Alertness Alert Patient Orientation Name Age Birthday Month Year Place Situation Attention Span Ability Capable of Focused Attention Capable of Sustained Attention Ability to Follow Commands Able to Follow One Step Commands Cognitive Comments Cognitive Assessment Comments Pt alert and oriented with good participation and effort. She recalls recent events. She appears to have an anxiety overlay. Note pt stuttering at times and with some word finding deficits and slowed speech noted. OT- Vision and Hearing OT- Hearing Assessment OT- Hearing Assessment Hearing Impaired Use of Hearing Aids OT- Vision Assessment Visual Acuity Glasses All The Time Visual Attentiveness WFL Occular Pursuits WFL Visual [place] WFL Vision Assessment Comments No vision changes noted since onset of migraine. M7 OT- IP Mobility and Balance Start: 01/04/19 19:16 Freq: Status: Active Protocol: Document 01/04/19 14:31 PJM (Rec: 01/04/19 19:46 PJ [id number]) OT- Bed Mobility Assessment Rolling Level of Assistance Standby Assistance 1 Person Assistance Sit to Supine Sit to Supine Assist Minimal Assistance 1 Person Assistance Scooting Scooting to Edge of Bed Standby Assistance Scooting Up and Down in Bed Standby Assistance OT-Transfer Assessment Sit to and From Stand Sit to and from Stand Contact Guard Assistance Transfers Transfer Ability Contact Guard Assistance Technique Transfer Destination Bed Bedside Commode Transfer Technique Stand Step Pivot Devices Transfer Assistive Devices Gait Belt Front Wheeled Walker Comments Mobility Comments Pt needs min assist to get RLE onto bed at end of session. No buckling or dragging of RLE noted during transfers. No c/o dizziness. OT- Gait Assessment Gait Gait Assistance Required: Contact Guard Assist 1 Person Assist Distance (Feet) 3 Assistive Devices Assistive Device Gait Belt Front Wheeled Walker Comments Gait Ability Comments minimal mobility from chair to BSC,then to bed OT- Balance Assessment Sitting Balance and Reactions Static Sitting Balance Ability Good Dynamic Sitting Balance Ability Good Standing Balance and Reactions Static Standing Balance Ability Good Dynamic Standing Balance Ability Fair M8 OT- IP Objective Assessments Start: 01/04/19 19:16 Freq: Status: Active Protocol: Document 01/04/19 14:31 PJM (Rec: 01/04/19 19:46 PJM [id number]) OT Gross Range of Motion Upper Extremity Range of Motion Assessment Right Impaired ROM Impairments slight RUE lag during BUE AROM OT Strength Upper Extremity Strength Assessment Right Impaired Shoulder R 3/5 flex, L 3+/5 Elbow R 4/5 flex/ext, L 4/5 Hand R 4-/5, L 4/5 Hand House Painter Strength Hand Dominance Right OT- Coordination Assessment Upper Extremity Finger to Nose Test Right UE Impaired Finger Tapping Test Right UE Impaired Comments Coordination Comments Decreased rapid alternating movements on R. Isolated finger motions slowed on R compared to L. Pt states she is using R hand dominantly for self care such as self feeding. Handwriting tremulous and ~80% legible. OT-Muscle Tone Assessment Muscle Tone WNL Yes OT Sensation Assessment Location Right Upper Extremity Light Touch Impaired Proprioception (Position) Intact/Normal Left Upper Extremity Light Touch Impaired Proprioception (Position) Intact/Normal Comments Summary Comments Pt detects and localizes lt touch in RUE with processing delay and subjectively decreased compared to L. Edema Edema Absent M9 OT- IP Assessment and Plan Start: 01/04/19 19:16 Freq: Status: Active Protocol: Document 01/04/19 14:31 PJM (Rec: 01/04/19 19:46 PJM [id number]) OT Summary Assessment and Plan Potential Rehabilitation Potential Good Analytic Complexity at Evaluation Low Summary OT Impairments Range of Motion Strength Balance Coordination Sensation Functional Mobility Grooming Dressing Toileting Bathing Toilet Transfers Shower Transfers Assessment Summary Low complexity OT assessment completed on this 68 yr old female admitted with expressive language deficits, slurred speech, R side weakness/numbness with hx of previous L stroke and post stroke migraines treated with Botox injections q 3 months. MRI negative for acute stroke and working Dx: is migraine with neuro symptoms. Pt familiar to this therapist from her previous admit in 2018. Pt currently has significant performance deficits in all functional mobility/transfers with R side weakness (RLE >RUE). Pt has mild RUE weakness and R hand coordination deficits. These deficits result in decreased independence in standing grooming, dressing, bathing and toileting and IADLS needed for pt to live alone with caregiver support 4 days/week. Pt did appear to do better with transfers in PM than during P.T. assessment this AM. Pt may progress quickly once migraine resolves, but as of today, pt is not safe to return home alone and currently needs 24 hr assist vs SNF. Further recommendations to follow as pt progresses. Goals Grooming Goal Independent Dressing Goal Independent Sr. Media Manager Sock Aid Toileting Goal Independent Bathing Goal Standby Assistance Toilet Transfer Goal Independent Shower Transfer Goal Contact Guard Assistance Patient/Caregiver Education Goal Demonstrate Post-Op Precautions Demonstrate Energy Conservation and Pacing OT-Other Goals Grooming to be done standing at sink with no loss of balance and good safety awareness. Days to Meet Goals 7 Frequency of Treatment Frequency Of Treatment Once a Day Treatment Plan OT Treatment Plan ADL Training Functional Mobility Neuromuscular Re-education Therapeutic Exercises Patient/Family Education Discharge Planning Discharge Recommendations OT Discharge Recommendations Home with 24/7 Assist vs SNF Rehab Other Discharge Recommendations further recommendations to follow as migraine resolves
--- NOTE | 2019-01-04 14:36 | ST.IPCSEOM ---
Care Team Visit Care Team Role Provider Type Man Read DO Emergency Provider Physician Specialty: Emergency Medicine Address: [address] [place] [address], [id number] Email: Safia Alexis MD Admit Provider Physician Attending Provider Specialty: Internal Medicine Address: [address] [place] [address], [id number] Email: [email or web address] Past Medical History (Last Updated 01/03/19 @ 21:30 by TERRELL Byrd) Depression with anxiety (Chronic Medical) Hyperlipidemia associated with type 2 diabetes mellitus (Chronic Medical) Migraine (Chronic Medical) post cva migraine Morbid obesity with BMI of 45.0-49.9, adult (Chronic Medical) Type 2 diabetes mellitus (Chronic Medical) History of stroke (Resolved Medical) Speech-Language Pathology Swallow Evaluation RHEUMATOLOGY SPECIALIST Clinical Swallow Evaluation Start: 01/04/19 14:27 Freq: Status: Active Protocol: Document 01/04/19 14:27 LNK (Rec: 01/04/19 14:36 LNK [id number]) Clinical Swallow Evaluation Session Time Visit Start Time 13:20 Visit Stop Time 13:40 Total Visit Minutes 20 Setting Assessment Location Acute Care Visit Type Note Type Initial Evaluation Patient Information Identification Type Name ID Wristband History The patient is a 68-year-old female with PMH ischemic CVA w/ residual deficits (RUE and RLE weakness and gait imbalance), post stroke migraine (requires botox injections Q3 months), DM 2T, HLD, COPD, ABIOLA (CPAP), morbid obesity, depression / anxiety, chronic back pain (i. e. spinal stenosis). Patient presented to the ED on 01/03/2019 out of concern for dysarthria. Dysarthria was noted on 01/03/2019 at 10 AM. Associated symptoms a migraine, difficulty with expressive speech, and slurring of words. Patient reports developing a migraine in the right temporal aspect of the head with radiation to the back at 8:00 AM. Reports severity as 8/10. Associated symptoms include more pronounced right-sided weakness (from baseline) and a sensation of numbness and tingling in lower extremities and right aspect of the face. Subjective Observations Pt in her room eating her lunch. Pt agreeable to an evaluation. Pt seated in bedside chair with tray in front of her. Evaluation Liquids Trialed Thin Solids Trialed Mechanical Soft Regular Administration Type Straw Oral Impairment WFL Oral Strategies Upright at 90 degrees Oral Phase Comments Pt presented with oral phrase of swallow WFL. Mastication, bolus formation, bolus control , and propulsion of bolus WFL. Dentition adequate for mastication. Pharyngeal Impairment WFL Pharyngeal Strategies Sitting Upright (90 deg) Pharyngeal Phase Comments Adequate hyolaryngeal elevation and forward excursion of hyoid. Swallow prompt with no cough, throat clear, choke, or wet voicing post swallow. Pt reported no difficulty with swallowing. No overt signs of aspiration observed. Pharyngeal phase WFL . Findings Dysphagia Type No dysphagia observed Diet Recommendations Liquids Order Thin Diet Order Regular Medication Recommendations As Tolerated Aspiration Precautions Recommended Precautions Upright at 90 Degrees Treatment Plan Placement Recommendations after Home Discharge Home with Home Health Appropriate for Therapy No: Swallow WFL
--- NOTE | 2019-01-04 14:39 | P.PN_ITS ---
Subjective Date Patient Seen: 01/04/19 Interval history: Patient is a 68-year-old female who presented to the hospital with stroke-like symptoms. She presented with right lower extremity and right upper extremity weakness. She also has significant dysarthria. Upon further examination the patient reports history of what sounds like hemiplegic migraine. She typically gets a headache and then worsening of her neurological symptoms. She had a headache 2 hours before this episode. She continues to have signif icant headache and difficulty with speech at this time. She was evaluated by PT and OT. Patient was found to be moderately weak and recommendations are being made for her for SNF placement. Exam Vital Signs (past 8 hours): - 01/04/19 08:00 01/04/19 09:20 01/04/19 12:00 Temperature 97.6 F 98.2 F Pulse Rate 87 87 87 Respiratory Rate 16 16 16 Blood Pressure 158/85 H 120/52 L Pulse Oximetry 97 97 93 Fraction of Inspired Oxygen 21 Oxygen Delivery Method Room Air Oxygen Flow Rate 0 Narrative Exam Narrative: obese elderly female resting in bed in no obvious distress but abdomen: Soft nontender uncomfortable from headache Lungs: Clear to auscultation Cardiac exam regular rate and rhythm normal S1-S2 abdomen: Soft nontender uncomfortable from headache Neuro exam: Cranial nerves appear to be intact, patient has significant d ysarthria, some stuttering of her speech as well. She has weakness in the right upper and right lower extremity. Objective Labs Result Diagrams: 01/04/19 05:15 01/04/19 05:15 Labs: Laboratory Results - last 24 hr 01/04/19 01/04/19 01/04/19 05:15 05:15 05:15 WBC 4.4 L RBC 4.08 Hgb 11.9 L Hct 35.2 L MCV 86.4 MCH 29.2 MCHC 33.8 RDW 15.1 H Plt Count 290 Neut % (Auto) 54.2 Lymph % (Auto) 30.0 Esmeralda % (Auto) 11.5 Eos % (Auto) 3.2 Baso % (Auto) 1.1 Neut # (Auto) 2400 Lymph # (Auto) 1300 Esmeralda # (Auto) 500 Eos # (Auto) 100 Baso # (Auto) 100 Sodium 141 Potassium 4.2 Chloride 106 Carbon Dioxide 28 BUN 20 H Creatinine 1.00 Estimated GFR 55.5 L BUN/Creatinine Ratio 20.0 Glucose 99 Hemoglobin A1c 6.1 H Calcium 9.0 Triglycerides Cholesterol LDL Cholesterol, Calc VLDL Cholesterol HDL Cholesterol Urine Color Urine Appearance Urine pH Ur Specific [place] Urine Protein Urine Glucose (UA) Urine Ketones Urine Occult Blood Urine Nitrate Urine Bilirubin Urine Urobilinogen Ur Leukocyte Esterase Urine RBC Urine WBC Urine Bacteria Ur Culture Indicated? 01/04/19 01/04/19 05:15 05:55 WBC RBC Hgb Hct MCV MCH MCHC RDW Plt Count Neut % (Auto) Lymph % (Auto) Esmeralda % (Auto) Eos % (Auto) Baso % (Auto) Neut # (Auto) Lymph # (Auto) Esmeralda # (Auto) Eos # (Auto) Baso # (Auto) Sodium Potassium Chloride Carbon Dioxide BUN Creatinine Estimated GFR BUN/Creatinine Ratio Glucose Hemoglobin A1c Calcium Triglycerides 81 Cholesterol 103 L LDL Cholesterol, Calc 45 VLDL Cholesterol 16 HDL Cholesterol 42 Urine Color Yellow Urine Appearance Clear Urine pH 5.0 Ur Specific [place] 1.020 Urine Protein Negative Urine Glucose (UA) Negative Urine Ketones Negative Urine Occult Blood Negative Urine Nitrate Positive H Urine Bilirubin Negative Urine Urobilinogen 0.2 Ur Leukocyte Esterase Trace H Urine RBC None seen Urine WBC 1-5/hpf Urine Bacteria Many (>30) H Ur Culture Indicated? Specimen cultured Assessment & Plan (1) Migraine: Problem details: Patient presents what looks like a complicated migraine. Her MRI was negative for an acute CVA. Patient continues to have a headache. She continues to have stuttering. According to the patient the stuttering typically gets better 6-7 hours following her headache. At this time will start Toradol. Current visit: Yes Status: Acute (2) Hypertension: Problem details: Hypertension, chronic, present on admission, continue usual medication Current visit: Yes Status: Acute (3) Hyperlipidemia: Problem details: Chronic, present on admission, continue usual medication Current visit: Yes Status: Acute (4) Type 2 diabetes mellitus: Problem details: Chronic, present on admission, will hold her metformin and cover with basal bolus insulin if indicated. Current visit: Yes Status: Acute (5) Morbid obesity: Current visit: Yes Status: Acute Assessment & Plan narrative: PT OT evaluation. Discharge home when back to baseline or at SNF if needed. Quality VTE Deep Vein Thrombosis/Pulmonary Embolism Present on Admission: No
[2019-01-04] MEDS: KETOROLAC 30 MG/ML VIAL IV (16:59)
[2019-01-05] VITALS (9 sets, daily range): BP systolic 127–142; BP diastolic 64–99; PULSE 74–86; RESP 16–18; TEMP 36.4–37; O2SAT 94–96
[2019-01-05 00:15] LABS: Adenovirus Not Detected (Not Detect); Coronavirus 229E Not Detected (Not Detect); Coronavirus HKU1 Not Detected (Not Detect); Coronavirus NL 63 Not Detected (Not Detect); Coronavirus OC43 Not Detected (Not Detect); Human Metapneumovirus Not Detected (Not Detect); Human Rhinovirus/Enterovirus Not Detected (Not Detect); Influenza A Not Detected (Not Detect); Influenza B Not Detected (Not Detect); Parainfluenza Virus 1 Not Detected (Not Detect); Parainfluenza Virus 2 Not Detected (Not Detect); Parainfluenza Virus 3 Not Detected (Not Detect); Parainfluenza Virus 4 Not Detected (Not Detect); Respiratory Syncytial Virus Not Detected (Not Detect)
[2019-01-05 00:16] LABS: Bordetella pertussis Not Detected (Not Detect); Chlamydophila pneumoniae Not Detected (Not Detect); Mycoplasma pneumoniae Not Detected (Not Detect)
--- NOTE | 2019-01-05 01:46 | PC.NURSE ---
2300- Pt admit for CVA symptoms; see CT & MRI results for details. NIH stroke scale completed, pt scored a 3 per this RN's discretion. Some slurring noted + pt takes longer than baseline to answer questions and perform tasks. Q4hr neuro checks taking place. Tele reading SR; on RA w/ stable sats. Moving 1PA w/ FWW to [facility] [place]; no IV fluids running at this time. 0010- Pt denies any pain or needs; A+Ox3. 0600- Episode of severe Migraine, pt can barely keep her eyes open. Able to answer questions, oriented and responds. RESEARCH METHODOLOGIST ordered 1x dose of IV Benadryl, Compazine & Toradol. Pt's VSS; BP slightly elevated. 0620- States ROBERTS has improved significantly, has not gone away completely.
[2019-01-05] MEDS: IBUPROFEN 600 MG TABLET PO ×3 (04:01→18:39)
[2019-01-05] MEDS: diphenhydrAMINE 50 MG/ML VIAL 25 MG IV (06:09)
[2019-01-05] MEDS: PROCHLORPERAZINE 10 MG/2 ML VIAL IV ×2 (06:10→14:38)
[2019-01-05] MEDS: KETOROLAC 15 MG/ML VIAL IV (06:16)
[2019-01-05] MEDS: CLOPIDOGREL 75 MG TABLET PO (08:48)
[2019-01-05] MEDS: GABAPENTIN 600 MG TABLET PO ×3 (08:48→20:25)
[2019-01-05] MEDS: ASPIRIN EC 325 MG TABLET PO (08:48)
--- NOTE | 2019-01-05 11:30 | PT.IPTN ---
Current Diagnoses Type 2 diabetes mellitus without complications (01/04/19) Morbid (severe) obesity due to excess calories (01/04/19) Hyperlipidemia, unspecified (01/04/19) Migraine, unspecified, not intractable, without status migrainosus (01/04/19) Essential (primary) hypertension (01/04/19) Physical Therapy Treatment Note M2 PT-IP Current Condition Start: 01/04/19 11:33 Freq: NEEDED Status: Active Protocol: Document 01/04/19 10:15 HH (Rec: 01/04/19 12:02 HH [id number]) Physical Therapy Current Condition Current Condition Evaluation Date 01/04/19 Treatment Diagnosis Stroke like symptoms, migraine , imparied gait, increased weakness Onset Date 01/01/19 Weight Bearing Status Weight Bearing Status Weight Bear as Tolerated M3 PT-IP Subjective Start: 01/04/19 11:33 Freq: NEEDED Status: Active Protocol: Document 01/05/19 11:30 AB (Rec: 01/05/19 13:13 AB [id number]) Subjective Physical Therapy Visit Type Type Treatment Note Visit Start Time 11:30 Visit Stop Time 11:56 Total Visit Minutes 26 Number of BONSAI TENDER Visits 0 Physical Therapy Visit Comments Patient Comments pt agreeable to do PT M4 PT-IP Mobility and Gait Start: 01/04/19 11:33 Freq: NEEDED Status: Active Protocol: Document 01/05/19 11:30 AB (Rec: 01/05/19 13:13 AB [id number]) PT-Bed Mobility Assessment Supine to Sit Supine to Sit Moderate Assistance Bedrails PT-Transfer Assessment Sit to and From Stand Sit to and from Stand Moderate Assistance 1 Person Assistance Use of Upper Extremities Equipment Transfer Assistive Device Gait Belt Front Wheeled Walker Orthotic/Prosthetic Devices or Brace: No Transfers Transfer Destination Chair Transfer Technique Stand Step Pivot Transfer Ability Level of Assist Minimal Assistance 1 Person Assistance Use of Upper Extremities Gait Assessment Gait Gait Assistance Required: Minimum Assistance Distance (Feet) 30 Able to Maintain Weight Bearing Status Yes During Gait Assistive Devices Assistive Device Gait Belt Front Wheeled Walker Orthotic/Prosthetic Devices or Brace: No Gait Deviations General Gait Pattern Decreased Stride Length Decreased Feet Clearance Factors Limiting Gait Function Factors Limiting Gait Function Decreased Activity Tolerance Decreased Strength Poor Balance Comments Gait Comments pt with difficulty elevating and moving RLE forward during ambulation and also present with decrease activity tolerance. M5 PT-IP Objective Assessments Start: 01/04/19 11:33 Freq: NEEDED Status: Active Protocol: Document 01/04/19 10:15 HH (Rec: 01/04/19 12:02 HH [id number]) Orientation Orientation/Cognition Level of Alertness Alert Orientation Name Age Birthday Month Date Year Day of Week Place Situation Language Function Ability Garbled Speech Word Finding Difficulties Safety Awareness Understands Safety Issues Memory Description No Deficits Noted Gross Range of Motion Upper Extremity ROM Assessment Right Impaired Impairments unable to reach behind her head Lower Extremity ROM Assessment Right Impaired Impairments unable to perform full knee extension Strength Upper Extremity Strength Assessment Right Impaired Shoulder 3+/5 Elbow 3+/5 Wrist 3/5 Hand 3/5 Lower Extremity Strength Assessment Right Impaired Hip 3+/5 Knee 3+/5 Ankle 3/5 Comments Strength Comments increased WB on LLE during standing. Coordination Assessment Gross Coordination Gross Coordination Impaired Assessment Finger to Nose Test Minimal Impairment Pronation/Supination Test Minimal Impairment Sensation Assessment Sensation Gross Sensation Right UE Impaired Right LE Impaired Light Touch Impaired Proprioception (Position) Impaired Sensation Description Numbness Tingling Comments Sensation Comments decreased sensitivity to LT and pressure on RUE and RLE Muscle Tone Muscle Tone WNL No M6 PT-IP Treatment Start: 01/04/19 11:33 Freq: NEEDED Status: Active Protocol: Document 01/05/19 11:30 AB (Rec: 01/05/19 13:13 AB [id number]) Physical Therapy Treatment Education Education Provided Safety M7 PT-IP Assessment and Plan Start: 01/04/19 11:33 Freq: NEEDED Status: Active Protocol: Document 01/05/19 11:30 AB (Rec: 01/05/19 13:13 AB [id number]) PT Summary Assessment and Plan Potential Rehabilitation Potential Good Summary Impairments ROM Strength Balance Coordination Sensation Tone Cognition Bed Mobility Transfers Gait Activity Tolerance Progress Towards Goals Slow Progress due to Medical Issues Slow Progress due to Activity Tolerance Assessment Summary pt requiring mod A with mobility and will require SNF rehab to improve strength and mobility. Goals Bed Mobility Goal Contact Guard Assistance Transfer Goal Contact Guard Assistance Front Wheeled Walker Four Wheeled Walker Gait Goal Contact Guard Assistance Front Wheel Walker Four Wheel Walker Gait Distance 75 Days to Meet Goals 10 Frequency of Treatment Frequency Of Treatment Once a Day Treatment Plan Physical Therapy Treatment Plan Bed Mobility Training Transfer Training Gait Training Therapeutic Exercise Balance Retraining Discharge Planning Other Recommendations and Next Treatment transfers, ambulation Focus Recommendations To Nursing Amount of Assist Needed 1 Person Assist Discharge Recommendations PT Discharge Recommendations SNF Rehab
--- NOTE | 2019-01-05 13:57 | PM.PN.1 ---
Subjective Date Patient Seen: 01/05/19 Interval history: The patient is a 68-year-old female who has a history of stroke who presented to rule out recurrent CVA. Patient also has a history of complicated hemiplegic migraine. She continues to have significant headache. Her speech has improved. Although she continues to stutter it is better than yesterday. She was seen by PT and OT. She was able to get up and ambulate and had less weakness than before. She is still somewhat unsteady on her feet. Patient is agreeable for rehabilitation post discharge given her weakness. She did undergo head MRI which was negative for an acute CVA. Exam Vital Signs (past 8 hours): - 01/05/19 06:00 01/05/19 08:00 Temperature 98.3 F Pulse Rate 76 80 Respiratory Rate 16 16 Blood Pressure 142/95 H 127/99 H Pulse Oximetry 95 95 Fraction of Inspired Oxygen 21 Oxygen Delivery Method Room Air Oxygen Flow Rate 0 Narrative Exam Narrative: Pleasant female sitting in a chair in no obvious distress Lungs: Clear to auscultate Cardiac exam: Regular rate rhythm normal S1 and S2 Abdomen: Soft nontender nondistended Extremities: 1+ edema bilateral Objective Labs Result Diagrams: 01/04/19 05:15 01/04/19 05:15 Labs: Laboratory Results - last 24 hr 01/04/19 22:48 Chlamy pneumoniae PCR Not detected Adenovirus (PCR) Not detected B.parapertussis DNA PCR Not detected Coronavirus OC43 (PCR) Not detected Coronavirus HKU1 (PCR) Not detected Coronavirus 229E (PCR) Not detected Coronavirus NL63 (PCR) Not detected Human Metapneumovir PCR Not detected Influenza Type A (PCR) Not detected Influenza Type B (PCR) Not detected M. pneumoniae (PCR) Not detected Parainfluenza 1 (PCR) Not detected Parainfluenza 2 (PCR) Not detected Parainfluenza 3 (PCR) Not detected Parainfluenza 4 (PCR) Not detected RSV (PCR) Not detected Entero/Rhino (PCR) Not detected Assessment & Plan (1) Migraine: Problem details: Patient presents what looks like a complicated migraine. Her MRI was negative for an acute CVA. Patient continues to have a headache. She continues to have stuttering. According to the patient the stuttering typically gets better 6-7 hours following her headache. At this time will start Toradol. Will continue Neurontin and ibuprofen as needed Current visit: Yes Status: Acute (2) CVA (cerebral vascular accident): Qualifiers: CVA mechanism: unspecified Laterality of affected vessel: Precerebral and cerebral artery: Qualified Code(s): I63.9 - Cerebral infarction, unspecified Current visit: Yes Status: Acute (3) Hypertension: Problem details: Hypertension, chronic, present on admission, continue usual medication Current visit: Yes Status: Acute (4) Hyperlipidemia: Problem details: Chronic, present on admission, continue usual medication Current visit: Yes Status: Acute (5) Type 2 diabetes mellitus: Problem details: Chronic, present on admission, will hold her metformin and cover with basal bolus insulin if indicated. Current visit: Yes Status: Acute (6) Morbid obesity: Current visit: Yes Status: Acute Assessment & Plan narrative: Anticipate [facility] very likely on Tuesday. Quality VTE Deep Vein Thrombosis/Pulmonary Embolism Present on Admission: No
--- NOTE | 2019-01-05 14:00 | P.PN_ITS ---
Subjective Date Patient Seen: 01/05/19 Interval history: The patient is a 68-year-old female who has a history of s troke who presented to rule out recurrent CVA. Patient also has a history of complicated hemiplegic migraine. She continues to have significant headache. Her speech has improved. Although she continues to stutter it is better than yesterday. She was seen by PT and OT. She was able to get up and ambulate and had less weakness than before. She is still somewhat unsteady on her feet. Patient is agreeable for rehabilitation post discharge given her weakness. She did undergo head MRI which was negative for an acute CVA. Exam Vital Signs (past 8 hours): - 01/05/19 06:00 01/05/19 08:00 Temperature 98.3 F Pulse Rate 76 80 Respiratory Rate 16 16 Blood Pressure 142/95 H 127/99 H Pulse Oximetry 95 95 Fraction of Inspired Oxygen 21 Oxygen Delivery Method Room Air Oxygen Flow Rate 0 Narrative Exam Narrative: Pleasant female sitting in a chair in no obvious distress Lungs: Clear to auscultate Cardiac exam: Regular rate rhythm normal S1 and S2 Abdomen: Soft nontender nondistended Extremities: 1+ edema bilateral Objective Labs Result Diagrams: 01/04/19 05:15 01/04/19 05:15 Labs: Laboratory Results - last 24 hr 01/04/19 22:48 Chlamy pneumoniae PCR Not detected Adenovirus (PCR) Not detected B.parapertussis DNA PCR Not detected Coronavirus OC43 (PCR) Not detected Coronavirus HKU1 (PCR) Not detected Coronavirus 229E (PCR) Not detected Coronavirus NL63 (PCR) Not detected Human Metapneumovir PCR Not detected Influenza Type A (PCR) Not detected Influenza Type B (PCR) Not detected M. pneumoniae (PCR) Not detected Parainfluenza 1 (PCR) Not detected Parainfluenza 2 (PCR) Not detected Parainfluenza 3 (PCR) Not detected Parainfluenza 4 (PCR) Not detected RSV (PCR) Not detected Entero/Rhino (PCR) Not detected Assessment & Plan (1) Migraine: Problem details: Patient presents what looks like a complicated migraine. Her MRI was negative for an acute CVA. Patient continues to have a headache. She continues to have stuttering. According to the patient the stuttering typically gets better 6-7 hours following her headache. At this time will start Toradol. Will continue Neurontin and ibuprofen as needed Current visit: Yes Status: Acute (2) CVA (cerebral vascular accident): Qualifiers: CVA mechanism: unspecified Laterality of affected vessel: Precerebral and cerebral artery: Qualified Code(s): I63.9 - Cerebral infarction, u nspecified Current visit: Yes Status: Acute (3) Hypertension: Problem details: Hypertension, chronic, present on admission, continue usual medication Current visit: Yes Status: Acute (4) Hyperlipidemia: Problem details: Chronic, present on admission, continue usual medication Current visit: Yes Status: Acute (5) Type 2 diabetes mellitus: Problem details: Chronic, present on admission, will hold her metformin and cover with basal bolus insulin if indicated. Current visit: Yes Status: Acute (6) Morbid obesity: Current visit: Yes Status: Acute Assessment & Plan narrative: Anticipate discharge to a care home unit very likely on Tuesday. Quality VTE Deep Vein Thrombosis/Pulmonary Embolism Present on Admission: No
[2019-01-05] MEDS: diphenhydrAMINE 50 MG/ML VIAL IV (14:37)
--- NOTE | 2019-01-05 14:37 | CM.DPC ---
Addendum entered by Kayleen Pitt LPN 01/05/19 16:12: Pt is updated and says she is very pleased with the news. Attempted to call Tatiana/Roni to release the referral. Was placed on lenghty hold as the concierge receptionist tried to reach her. Had to fax an update stating to please release the referral/[id number]. Original Note: Addendum entered by Kayleen Pitt LPN 01/05/19 16:00: [facility] has accepted the referral. They will be ready for her this Tuesday if pt is stable for d/c at that time. Contact admission phone: [phone]. Original Note: DCP: continued: Case discussed in Team Rounds. TOPHER James and Dr. Alexis report EHR has recommended INPT admission status for this pt. INPT order was placed yesterday 01/[address] Alexis/confirmed now by TOPHER James. Dr. Alexis as well as therapy team are recommending a snf rehab recovery stay before pt returns home. Met with pt now. She says she very much agrees with this plan. Her speech in notably improved but pt says my right side is still not doing that well. Pt says her daughter Gabbie is aware and very supportive of the snf plan. Choice list: discussed. Pt has been to [facility] in the past: they are currently full for admissions until later next week. [facility]: next choice as pt lives in [place]: they remain unable to accept new admissions s/p their latest survey process. Pt agreeable to other facilities : [facility] in [place]: agreed to give referral: done: to Tatiana/business office. She will review and then her nursing staff will review. No transport would be set up but if sets up [facility] or [facility] the bill for same would be sent to [facility] (per their usual protocol Tatiana says). Have also given referral to [facility]. She confirms she will know if pt is accepted within half hour and they will be able to pick pt up at d/c. ( Sunday 01/07 if stable for same). Will update pt as soon as all this is known.
[2019-01-05] MEDS: FENOFIBRATE 145 MG TABLET PO (16:17)
--- NOTE | 2019-01-05 17:00 | OT.IP.TRT ---
Current Diagnoses Type 2 diabetes mellitus without complications (01/04/19) Morbid (severe) obesity due to excess calories (01/04/19) Hyperlipidemia, unspecified (01/04/19) Migraine, unspecified, not intractable, without status migrainosus (01/04/19) Essential (primary) hypertension (01/04/19) Cerebral infarction, unspecified (01/04/19) Occupational Therapy Treatment Note M2 OT-IP Current Condition Start: 01/04/19 19:16 Freq: Status: Active Protocol: Document 01/04/19 14:31 PJM (Rec: 01/04/19 19:46 PJM [id number]) Occupational Therapy Current Condition Current Condition Evaluation Date 01/04/19 Treatment Diagnosis decr'd self care,mobility,R side weakness; MRI neg, DX: migraine Diagnosis Onset Date 01/03/19 Post Operative Precautions Other Precautions fall risk, R side weakness M3 OT- IP Subjective and Pain Start: 01/04/19 19:16 Freq: Status: Active Protocol: Document 01/05/19 16:40 CCC (Rec: 01/05/19 16:59 [facility] [id number]) OT- Subjective Occupational Therapy Visit Type Type Treatment Note Visit Start Time 15:50 Visit Stop Time 16:28 Total Visit Minutes 38 Occupational Therapy Visit Comments Patient Comments Pt agreeable to get up for Ot treatment and needing to use the bathroom. OT Pain Assessment Pain When Pain Assessed At Rest Pain Present Pain Present Denied Pain M4 OT- IP ADL's Start: 01/04/19 19:16 Freq: Status: Active Protocol: Document 01/05/19 16:40 CCC (Rec: 01/05/19 16:59 [facility] [id number]) OT ADL-Dressing General Eval Lower Body Dressing Ability Independent Areas Needing Assistance Socks Assistive Devices Dressing Assistive Devices [place] Sock Aid Comments OT Dressing Comments Pt able to use grain spouter and sock aid independently today for sock management needs. OT ADL-Toileting General Evaluation Toileting Ability Standby Assistance Devices Toileting Assistive Devices Grab Bars Comments OT Toileting Comments Pt heavy use of grab bars to sit to toilet and able to do own pericare on her own. OT ADL-Bathing Comments OT Bathing Comments Pt states aid assisted her for showering, especially to assist to wash her hair and feet. M5 OT- IP IADL's Start: 01/04/19 19:16 Freq: Status: Active Protocol: Document 01/04/19 14:31 PJM (Rec: 01/04/19 19:46 PJM [id number]) OT-Instrumental Activities of Daily Living Deficits IADL Deficits Identified Deficits Home Safety Awareness Awareness of Need for Assistance at Home Good Awareness Ability to Problem Solve Emergency Able to Problem Solve Situations Medication Management Medication Management No Deficits Identified Money Management Money Management No Deficits Identified Meal Preparation Meal Preparation Caregiver Provides Assist Paste Up Copy Camera Operator Paste Up Copy Camera Operator Caregiver Provides Assist Driving Driving Caregiver Provides Assist M6 OT- IP Functional Cognition Start: 01/04/19 19:16 Freq: Status: Active Protocol: Document 01/05/19 16:40 [facility] (Rec: 01/05/19 16:59 [facility] [id number]) Cognitive Factors Limiting Selfcare Function Cognitive Ability Level of Alertness Alert Patient Orientation Name Place Situation Attention Span Ability Capable of Focused Attention Capable of Sustained Attention Ability to Follow Commands Able to Follow One Step Commands Memory Description Short Term Impaired Cognitive Comments Cognitive Assessment Comments Pt continues to have word finding difficulties and occasional stuttering. M7 OT- IP Mobility and Balance Start: 01/04/19 19:16 Freq: Status: Active Protocol: Document 01/05/19 16:40 [facility] (Rec: 01/05/19 16:59 [facility] [id number]) OT- Bed Mobility Assessment Rolling Level of Assistance Standby Assistance 1 Person Assistance Bedrails Supine to Sit Supine to Sit Assist Standby Assistance Bedrails OT-Transfer Assessment Transfers Transfer Ability Contact Guard Assistance Technique Transfer Destination Bed Chair Toilet Transfer Technique Stand Step Pivot Devices Transfer Assistive Devices Gait Belt Front Wheeled Walker Comments Mobility Comments Pt complaining of nausea initially while getting up from the bed but cleared after a few seconds up. CGA for balance with FWW to walk to the bathroom. OT- Balance Assessment Sitting Balance and Reactions Static Sitting Balance Ability Good Dynamic Sitting Balance Ability Good Standing Balance and Reactions Static Standing Balance Ability Good Dynamic Standing Balance Ability Fair M8 OT- IP Objective Assessments Start: 01/04/19 19:16 Freq: Status: Active Protocol: Document 01/05/19 16:40 CCC (Rec: 01/05/19 16:59 [facility] [id number]) OT- Coordination Assessment Comments Coordination Comments 9 hole peg , right hand 42 seconds and left hand 38 sec. Average time at 50% for her age is right hand 23 seconds and left hand 26 seconds. M9 OT- IP Assessment and Plan Start: 01/04/19 19:16 Freq: Status: Active Protocol: Document 01/05/19 16:40 [facility] (Rec: 01/05/19 16:59 [facility] [id number]) OT Summary Assessment and Plan Potential Rehabilitation Potential Good Analytic Complexity at Evaluation Low Summary OT Impairments Range of Motion Strength Balance Coordination Sensation Functional Mobility Grooming Dressing Toileting Bathing Toilet Transfers Shower Transfers Progress Towards Goals Progressing Toward Goals Assessment Summary Pt looking to skilled rehab as continues to have right sided weakness and would benefit from rehab to return to prior level of care. Goals Grooming Goal Independent Dressing Goal Independent [place] Sock Aid Toileting Goal Independent Bathing Goal Standby Assistance Toilet Transfer Goal Independent Shower Transfer Goal Contact Guard Assistance Patient/Caregiver Education Goal Demonstrate Post-Op Precautions Demonstrate Energy Conservation and Pacing Days to Meet Goals 5 Frequency of Treatment Frequency Of Treatment Once a Day Treatment Plan OT Treatment Plan ADL Training Functional Mobility Neuromuscular Re-education Therapeutic Exercises Patient/Family Education Discharge Planning Discharge Recommendations OT Discharge Recommendations SNF Rehab
--- NOTE | 2019-01-05 17:09 | PC.NURSE ---
Addendum entered by Jennifer Coronado R.N. 01/05/19 23:20: Mostly sleeping unless stimulated by staff. CPAP in place for sleep. BL scd's in place. Original Note: Addendum entered by Jennifer Coronado R.N. 01/05/19 19:05: Transfer with one assist from chair to bed. Admits to headache pain slightly improved s/p imitrix sq. Ibuprofen administered to treat same and pt refuses ice to neck/head at this time. Original Note: Pt in bed resting quietly @ bedside shift report. Ice to back of neck. O.T. in to see patient and transfer pt to recliner. Pt reports headache pain 03/05. This was discussed with Dr. Alexis, who is in house. Pt reports slight redness under left breast stating this is from monitoring pads. Skin intact, but pink in color under left breast. Applied thin layer of barrier cream. No yeast type odor. Encouraged to call for needs. Pt is able to move all extremities independently and upon command, but states right side weakness remains. Speech slightly slurred and delayed which dayshift RN reports is improvement over 01/04.
[2019-01-05] MEDS: SUMAtriptan 6 MG/0.5 ML VIAL SUBCUT (17:14)
[2019-01-05] MEDS: SODIUM CHLORIDE 0.9% FLUSH 10 ML IV (20:25)
[2019-01-05] MEDS: SERTRALINE 50 MG TABLET 150 MG PO (20:25)
[2019-01-05] MEDS: TRAZODONE 50 MG TABLET 150 MG PO (20:26)
[2019-01-06] VITALS (7 sets, daily range): BP systolic 126–160; BP diastolic 56–87; PULSE 74–91; RESP 18–20; TEMP 35.9–36.9; O2SAT 92–98
[2019-01-06] MEDS: IBUPROFEN 600 MG TABLET PO ×3 (03:47→20:26)
[2019-01-06] MEDS: buPROPion XL 150 MG TAB 300 MG PO (08:06)
[2019-01-06] MEDS: ASPIRIN EC 325 MG TABLET PO (08:06)
[2019-01-06] MEDS: GABAPENTIN 600 MG TABLET PO ×3 (08:07→20:23)
[2019-01-06] MEDS: CLOPIDOGREL 75 MG TABLET PO (08:07)
[2019-01-06] MEDS: SODIUM CHLORIDE 0.9% FLUSH 10 ML IV ×3 (08:09→21:26)
--- NOTE | 2019-01-06 11:04 | PT.IPTN ---
Current Diagnoses Type 2 diabetes mellitus without complications (01/04/19) Morbid (severe) obesity due to excess calories (01/04/19) Hyperlipidemia, unspecified (01/04/19) Migraine, unspecified, not intractable, without status migrainosus (01/04/19) Essential (primary) hypertension (01/04/19) Cerebral infarction, unspecified (01/04/19) Physical Therapy Treatment Note M2 PT-IP Current Condition Start: 01/04/19 11:33 Freq: NEEDED Status: Active Protocol: Document 01/04/19 10:15 HH (Rec: 01/04/19 12:02 HH [id number]) Physical Therapy Current Condition Current Condition Evaluation Date 01/04/19 Treatment Diagnosis Stroke like symptoms, migraine , imparied gait, increased weakness Onset Date 01/01/19 Weight Bearing Status Weight Bearing Status Weight Bear as Tolerated M3 PT-IP Subjective Start: 01/04/19 11:33 Freq: NEEDED Status: Active Protocol: Document 01/06/19 11:04 RCC (Rec: 01/06/19 11:35 [facility] [id number]) Subjective Physical Therapy Visit Type Type Treatment Note Visit Start Time 11:04 Visit Stop Time 11:30 Total Visit Minutes 26 Number of DIRECTOR OF PUBLICATIONS Visits 0 Physical Therapy Visit Comments Patient Comments pt states her ROBERTS is 6-7/10. M4 PT-IP Mobility and Gait Start: 01/04/19 11:33 Freq: NEEDED Status: Active Protocol: Document 01/06/19 11:04 RCC (Rec: 01/06/19 11:35 RCC [id number]) PT-Bed Mobility Assessment Supine to Sit Supine to Sit Moderate Assistance Bedrails Scooting Scooting to Edge of Bed Contact Guard Assistance PT-Transfer Assessment Sit to and From Stand Sit to and from Stand Minimal Assistance 1 Person Assistance Use of Upper Extremities Equipment Transfer Assistive Device Gait Belt Front Wheeled Walker Orthotic/Prosthetic Devices or Brace: No Transfers Transfer Destination Chair Transfer Technique Stand Step Pivot Transfer Ability Level of Assist Contact Guard Assistance 1 Person Assistance Use of Upper Extremities Gait Assessment Gait Gait Assistance Required: Contact Guard Assist Distance (Feet) 35 Assistive Devices Assistive Device Gait Belt Front Wheeled Walker Orthotic/Prosthetic Devices or Brace: No Gait Deviations General Gait Pattern Decreased Stride Length Decreased Feet Clearance Factors Limiting Gait Function Factors Limiting Gait Function Decreased Activity Tolerance Decreased Sensation Decreased Strength Poor Balance Comments Gait Comments Toe drag on the R 75% of the time. M5 PT-IP Objective Assessments Start: 01/04/19 11:33 Freq: NEEDED Status: Active Protocol: Document 01/04/19 10:15 HH (Rec: 01/04/19 12:02 HH [id number]) Orientation Orientation/Cognition Level of Alertness Alert Orientation Name Age Birthday Month Date Year Day of Week Place Situation Language Function Ability Garbled Speech Word Finding Difficulties Safety Awareness Understands Safety Issues Memory Description No Deficits Noted Gross Range of Motion Upper Extremity ROM Assessment Right Impaired Impairments unable to reach behind her head Lower Extremity ROM Assessment Right Impaired Impairments unable to perform full knee extension Strength Upper Extremity Strength Assessment Right Impaired Shoulder 3+/5 Elbow 3+/5 Wrist 3/5 Hand 3/5 Lower Extremity Strength Assessment Right Impaired Hip 3+/5 Knee 3+/5 Ankle 3/5 Comments Strength Comments increased WB on LLE during standing. Coordination Assessment Gross Coordination Gross Coordination Impaired Assessment Finger to Nose Test Minimal Impairment Pronation/Supination Test Minimal Impairment Sensation Assessment Sensation Gross Sensation Right UE Impaired Right LE Impaired Light Touch Impaired Proprioception (Position) Impaired Sensation Description Numbness Tingling Comments Sensation Comments decreased sensitivity to LT and pressure on RUE and RLE Muscle Tone Muscle Tone WNL No M6 PT-IP Treatment Start: 01/04/19 11:33 Freq: NEEDED Status: Active Protocol: Document 01/05/19 11:30 AB (Rec: 01/05/19 13:13 AB [id number]) Physical Therapy Treatment Education Education Provided Safety M7 PT-IP Assessment and Plan Start: 01/04/19 11:33 Freq: NEEDED Status: Active Protocol: Document 01/06/19 11:04 RCC (Rec: 01/06/19 11:35 RCC [id number]) PT Summary Assessment and Plan Summary Assessment Summary Pt requires slightly less assistance to get supine to sitting on EOB, but still well below her prior level of function and activity tolerance. She was fatigued after 35 ft of gait using a FWW, and demonstrated decreased foot clearance on the R, hitting toes on ground ~75% of the time. Goals Bed Mobility Goal Contact Guard Assistance Transfer Goal Contact Guard Assistance Front Wheeled Walker Four Wheeled Walker Gait Goal Contact Guard Assistance Front Wheel Walker Four Wheel Walker Gait Distance 75 Days to Meet Goals 10 Frequency of Treatment Frequency Of Treatment Once a Day Treatment Plan Other Recommendations and Next Treatment progress gait as tolerance, Focus RLE strengthening/thera ex. Recommendations To Nursing Amount of Assist Needed 1 Person Assist Discharge Recommendations PT Discharge Recommendations SNF Rehab
--- NOTE | 2019-01-06 11:06 | OT.IP.TRT ---
Current Diagnoses Type 2 diabetes mellitus without complications (01/04/19) Morbid (severe) obesity due to excess calories (01/04/19) Hyperlipidemia, unspecified (01/04/19) Migraine, unspecified, not intractable, without status migrainosus (01/04/19) Essential (primary) hypertension (01/04/19) Cerebral infarction, unspecified (01/04/19) Occupational Therapy Treatment Note M2 OT-IP Current Condition Start: 01/04/19 19:16 Freq: Status: Active Protocol: Document 01/04/19 14:31 PJM (Rec: 01/04/19 19:46 PJM [id number]) Occupational Therapy Current Condition Current Condition Evaluation Date 01/04/19 Treatment Diagnosis decr'd self care,mobility,R side weakness; MRI neg, DX: migraine Diagnosis Onset Date 01/03/19 Post Operative Precautions Other Precautions fall risk, R side weakness M3 OT- IP Subjective and Pain Start: 01/04/19 19:16 Freq: Status: Active Protocol: Document 01/06/19 11:03 [facility] (Rec: 01/06/19 11:06 [facility] [id number]) OT- Subjective Occupational Therapy Visit Type Type Treatment Note Visit Start Time 09:30 Visit Stop Time 09:45 Total Visit Minutes 15 Occupational Therapy Visit Comments Patient Comments Pt states already did grooming and not needing to use the bathroom but open to doing theraputty exercises. Also able to educate pt for expectation for rehab at [facility]. OT Pain Assessment Pain When Pain Assessed At Rest Pain Present Pain Present Denied Pain M4 OT- IP ADL's Start: 01/04/19 19:16 Freq: Status: Active Protocol: Document 01/05/19 16:40 [facility] (Rec: 01/05/19 16:59 [facility] [id number]) OT ADL-Dressing General Eval Lower Body Dressing Ability Independent Areas Needing Assistance Socks Assistive Devices Dressing Assistive Devices Well Puller Head Sock Aid Comments OT Dressing Comments Pt able to use school patrol and sock aid independently today for sock management needs. OT ADL-Toileting General Evaluation Toileting Ability Standby Assistance Devices Toileting Assistive Devices Grab Bars Comments OT Toileting Comments Pt heavy use of grab bars to sit to toilet and able to do own pericare on her own. OT ADL-Bathing Comments OT Bathing Comments Pt states aid assisted her for showering, especailly to assist to wash her hair and feet. M5 OT- IP IADL's Start: 01/04/19 19:16 Freq: Status: Active Protocol: Document 01/04/19 14:31 PJM (Rec: 01/04/19 19:46 PJM [id number]) OT-Instrumental Activities of Daily Living Deficits IADL Deficits Identified Deficits Home Safety Awareness Awareness of Need for Assistance at Home Good Awareness Ability to Problem Solve Emergency Able to Problem Solve Situations Medication Management Medication Management No Deficits Identified Money Management Money Management No Deficits Identified Meal Preparation Meal Preparation Caregiver Provides Assist Eeler Eeler Caregiver Provides Assist Driving Driving Caregiver Provides Assist M6 OT- IP Functional Cognition Start: 01/04/19 19:16 Freq: Status: Active Protocol: Document 01/05/19 16:40 [facility] (Rec: 01/05/19 16:59 [facility] [id number]) Cognitive Factors Limiting Selfcare Function Cognitive Ability Level of Alertness Alert Patient Orientation Name Place Situation Attention Span Ability Capable of Focused Attention Capable of Sustained Attention Ability to Follow Commands Able to Follow One Step Commands Memory Description Short Term Impaired Cognitive Comments Cognitive Assessment Comments Pt continues to have word finding difficulties and occasinal stuttering. M7 OT- IP Mobility and Balance Start: 01/04/19 19:16 Freq: Status: Active Protocol: Document 01/05/19 16:40 [facility] (Rec: 01/05/19 16:59 [facility] [id number]) OT- Bed Mobility Assessment Rolling Level of Assistance Standby Assistance 1 Person Assistance Bedrails Supine to Sit Supine to Sit Assist Standby Assistance Bedrails OT-Transfer Assessment Transfers Transfer Ability Contact Guard Assistance Technique Transfer Destination Bed Chair Toilet Transfer Technique Stand Step Pivot Devices Transfer Assistive Devices Gait Belt Front Wheeled Walker Comments Mobility Comments Pt complaining of nausea initially while getting up from the bed but cleared after a few seconds up. CGA for balance with FWW to walk to the bathroom. OT- Balance Assessment Sitting Balance and Reactions Static Sitting Balance Ability Good Dynamic Sitting Balance Ability Good Standing Balance and Reactions Static Standing Balance Ability Good Dynamic Standing Balance Ability Fair M8 OT- IP Objective Assessments Start: 01/04/19 19:16 Freq: Status: Active Protocol: Document 01/06/19 11:03 CCC (Rec: 01/06/19 11:06 [facility] [id number]) OT- Coordination Assessment Comments Coordination Comments Showed pt theraputty exercises to help with strength and coordination for hands. Pt able to demonstrate good understanding. M9 OT- IP Assessment and Plan Start: 01/04/19 19:16 Freq: Status: Active Protocol: Document 01/06/19 11:03 [facility] (Rec: 01/06/19 11:06 [facility] [id number]) OT Summary Assessment and Plan Potential Rehabilitation Potential Good Analytic Complexity at Evaluation Low Summary Progress Towards Goals Progressing Toward Goals Assessment Summary Pt looking to go to skilled rehab tomorrow. Goals Days to Meet Goals 4 Frequency of Treatment Frequency Of Treatment Once a Day Treatment Plan OT Treatment Plan ADL Training Functional Mobility Neuromuscular Re-education Therapeutic Exercises Patient/Family Education Discharge Planning Discharge Recommendations OT Discharge Recommendations SNF Rehab
--- NOTE | 2019-01-06 11:48 | P.PN_ITS ---
Subjective Date Patient Seen: 01/06/19 Interval history: The patient is a 68-year-old female who was admitted to the hospital for speech difficulty and right arm and right leg weakness. The initial concern was that she had a CVA. Patient underwent an MRI, this confirmed that she in fact did not have a CVA. The patient has complicated, hemiplegic migraine. It was felt that her symptoms of weakness speech abn ormalities were related to her underlying migraine headache. The patient had a urine culture which is now growing E coli. She will be started on antibiotics for that. Patient continues to complain of headache. She describes it as 6/10. At times it is worsened at times better. She is still weak and is feeling that rehabilitation would be valuable for her at this point. Exam Vital Signs (past 8 hours): - 01/06/19 03:56 01/06/19 08:00 Temperature 96.7 F L 97.8 F Pulse Rate 78 77 Respiratory Rate 18 18 Blood Pressure 126/64 137/73 Pulse Oximetry 96 98 Fraction of Inspired Oxygen 21 Oxygen Delivery Method CPAP Oxygen Flow Rate 0 Narrative Exam Narrative: Pleasant obese female in no acute distress Lungs: Clear to auscultation Cardiac exam: Regular rate and rhythm normal S1 and S2 with a 3/6 systolic ejection murmur Abdomen: Soft and nontender Extremities: No edema Objective Labs Result Diagrams: 01/04/19 05:15 01/04/19 05:15 Assessment & Plan (1) Urinary tract infection: Problem details: Urine culture positive for E coli, likely present on admission. Will start her on ciprofloxacin at this time. Current visit: Yes Status: Acute (2) Morbid obesity: Current visit: Yes Status: Acute (3) Type 2 diabetes mellitus: Problem details: Chronic, present on admission, will hold her metformin and cover with basal bolus insulin if indicated. Current visit: Yes Status: Acute (4) Hyperlipidemia: Problem details: Chronic, present on admission, continue usual medication Current visit: Yes Status: Acute (5) Hypertension: Problem details: Hypertension, chronic, present on admission, continue usual medication Current visit: Yes Status: Acute (6) Migraine: Problem details: Patient presents what looks like a complicated migraine. Her MRI was negative for an acute CVA. Patient continues to have a headache. She continues to have stuttering. According to the patient the stuttering typically gets better 6-7 hours following her headache. At this time will start Toradol. Will continue Neurontin and ibuprofen as needed Current visit: Yes Status: Acute (7) CVA (cerebral vascular accident): Problem details: Patient presented with focal findings however of MRI effectively ruled out an acute CVA. Qualifiers: CVA mechanism: unspecified Laterality of affected vessel: Precerebral and cerebral artery: Qualified Code(s): I63.9 - Cerebral infarction, unspecified Current visit: Yes Status: Acute Assessment & Plan narrative: Continue PT OT awaiting nursing home facility placement. Quality VTE Deep Vein Thrombosis/Pulmonary Embolism Present on Admission: No
--- NOTE | 2019-01-06 12:52 | CM.DPC ---
DCP Cont: Spoke with Nohemi in admissions, at [facility] in [facility]. Confirmed that they can accept patient tomorrow if ready for discharge. She stated that they would also provide transportation. Checked in with patient. Génesis. Gave her an update. She stated, she is glad that she is going to rehab. Patient stated that since she had her stroke, she gets chronic migraines, and that this causes her to have stroke symptoms. She had originally requested [facility], but since they are full, [facility] is second choice. She resides in [place]. P: DCP to continue to follow. Will complete PASSR, in case she is discharged tomorrow. Pebbles Burkett RN/Screen Stretcher
[2019-01-06] MEDS: SUMAtriptan 6 MG/0.5 ML VIAL SUBCUT ×2 (12:56→14:53)
[2019-01-06] MEDS: levoFLOXacin 250 MG TABLET PO (12:56)
[2019-01-06] MEDS: TRAZODONE 50 MG TABLET 150 MG PO (20:24)
[2019-01-06] MEDS: SERTRALINE 50 MG TABLET 150 MG PO (20:24)
[2019-01-06] MEDS: PROCHLORPERAZINE 10 MG/2 ML VIAL IV (21:25)
[2019-01-06] MEDS: diphenhydrAMINE 50 MG/ML VIAL IV (21:25)
--- NOTE | 2019-01-06 22:36 | PC.NURSE ---
gabrielle shift- assumed care of pt from outgoing shift. Pt awake and alert. slurs speech still. weakness to right side. pt reports she has been having botox injections every three months and those really help. but if she gets bad with her headache, she has a standing order at md's office to get a shot of torodol. and she reports that that usually takes care of it. and if it really really bad, she comes to ED and gets diluadid, torodol, and something else that I couldn't remember Pt states that then it does work. but she wa very worried with this one because she had and increased amount of weakness and stil having tremendous headaches. Pt good historian. Pt very kind and appreciates staff. pt is excited t go to [facility] tomorrow. pt moves very well (sba with fww). refused gown and underwear (wearing pajamas from home). will continue to monitor pt for safety.
[2019-01-07 02:00] VITALS: BP 103/70; PULSE 90; RESP 16; TEMP 36.4; O2SAT 91
[2019-01-07] MEDS: IBUPROFEN 600 MG TABLET PO (04:56)
[2019-01-07 04:59] VITALS: BP 129/81; PULSE 83; RESP 16; TEMP 36.3; O2SAT 93
[2019-01-07 07:55] VITALS: BP 155/60; PULSE 88; RESP 18; TEMP 36.5; O2SAT 93
--- NOTE | 2019-01-07 09:08 | CM.DPC ---
Addendum entered by Pebbles Burkett R.N. 01/07/19 11:15: Nohemi called back from [facility] in [facility], and stated that berry picker time would be at 1500, versus 1300. Updated main white board, patient sleeping, but will update nurse, Ambreen. Nohemi confirmed that she received paper work that was faxed over. Original Note: Addendum entered by Pebbles Burkett R.N. 01/07/19 10:13: Nohemi called back from [facility], admissions. She stated that they would arrange berry picker at [address] Silva, hospitalist, and nurse, Ambreen. Orders signed. Faxed signed med sheets, prescriptions, discharge summary, as well as PASSR, to [facility]. Spoke to patient, and let her know that berry picker time is approximately 1300. Gave room number to Nohemi at [facility]. Original Note: DCP Cont: Spoke to patient's nurse, Ambreen, and stated that [facility] in can accept patient today. She was asking about a time. No orders yet, and Dr. Silva has not yet seen patient, but went ahead and called [facility], and left a message for Nohemi in admissions, asking her for a set up for berry picker this afternoon. Will await her call back. Will discuss patient in team rounds regarding discharge today. Patient continues to complain of intermittent headaches. P:Will discuss case in team rounds, and will plan on discharge today, unless otherwise specified by hospitalist. Will continue to follow up with Nohemi at [facility]. Pebbles Burkett, [place]/Clinical Courier
[2019-01-07] MEDS: diphenhydrAMINE 50 MG/ML VIAL IV (09:13)
[2019-01-07] MEDS: SODIUM CHLORIDE 0.9% FLUSH 10 ML IV (09:13)
[2019-01-07] MEDS: PROCHLORPERAZINE 10 MG/2 ML VIAL IV (09:13)
[2019-01-07] MEDS: ASPIRIN EC 325 MG TABLET PO (09:13)
[2019-01-07] MEDS: buPROPion XL 150 MG TAB 300 MG PO (09:13)
[2019-01-07] MEDS: levoFLOXacin 250 MG TABLET PO (09:13)
[2019-01-07] MEDS: CLOPIDOGREL 75 MG TABLET PO (09:13)
[2019-01-07] MEDS: GABAPENTIN 600 MG TABLET PO (09:13)
--- NOTE | 2019-01-07 09:25 | PM.DS.1 ---
History of Present Illness Date Patient Seen: 01/07/19 Time Patient Seen: 09:32 Chief complaint: Stroke like symptoms Narrative: The patient is a 68-year-old female with PMH ischemic CVA w/ residual deficits (RUE and RLE weakness and gait imbalance), post stroke migraine (requires botox injections Q3 months), DM 2T, HLD, COPD, ABIOLA (CPAP), morbid obesity, depression / anxiety, chronic back pain (i.e. spinal stenosis) Patient presented to the ED on 01/03/2019 out of concern for dysarthria. Dysarthria was noted on 01/03/2019 at 10 AM. Associated symptoms a migraine, difficulty with expressive speech, and slurring of words. Patient reports developing a migraine in the right temporal aspect of the head with radiation to the back at 8:00 AM. Reports severity as 8/10. Associated symptoms include more pronounced right-sided weakness (from baseline) and a sensation of numbness and tingling in lower extremities and right aspect of the face. She notes experiencing difficulty with ambulation. She felt that her legs did not want to cooperate.She reports experiencing lightheadedness with position change. She had her blood pressure checked by her caregiver, notes it to be 136/72 mmHg. Reports blood glucose of 117. Patient denies visual disturbances, specifically change in vision, blurry vision, loss of sight, or seeing spots / flashes. She also did not experience chest pain, palpitations, dyspnea, abdominal pain, nausea, or vomiting. There has not been change in pattern micturition, including urinary frequency, dysuria, or hematuria. She has taken gabapentin to help with migraine relief. Shortly after onset of symptoms patient contacted her PCP who urged her to push her lifeline and seek immediate medical evaluation. Patient is known to have suffered an ischemic CVA in 2010 with residual right-sided weakness and gait instability. Patient ambulates with a use of a walker. Since the aforementioned ischemic event patient reports additional 6 episodes of TIA. She is known to have post CVA migraines for which she receives Botox injections every 3 months, her next injection is due on 01/08/19. Patient reports experiencing similar symptoms in the past in the presence of a migraine. Discharge Providers Date of admission: 01/04/19 17:10 Discharge Date: 01/07/19 Consults: 04/10/19 19:53 Consult to Discharge Planning Routine Comment: Consult to Occupational Therapy Evaluate & Treat Comment: Physician Instructions: Evaluate and treat Consult to Physical Therapy Evaluate & Treat Comment: Physician Instructions: Evaluate and Treat Consult to Speech Therapy Evaluate & Treat Comment: Physician Instructions: Evaluate and treat Discharge provider: Radha Silva MD Summary Discharge Diagnosis: (1) Urinary tract infection: (2) Morbid obesity: (3) Type 2 diabetes mellitus: (4) Hyperlipidemia: (5) Hypertension: (6) Migraine: (7) CVA (cerebral vascular accident): Hospital Course: (1) Urinary tract infection: Urine culture positive for E coli, likely present on admission. Will complete 5 more days of Levaquin at the [facility]. (2) Morbid obesity: (3) Type 2 diabetes mellitus: Chronic, present on admission, will resume metformin now at discharge. (4) Hyperlipidemia: (5) Hypertension: Hypertension, chronic, present on admission, continue usual medication (6) Migraine: Problem details: Patient presents with what looks like a complicated migraine. Her MRI was negative for an acute CVA. She continues to have a headache. She also had stuttering which is not present today. According to the patient the stuttering typically gets better 6-7 hours following her headache. At this time will start Topamax. Will continue Neurontin and ibuprofen as needed (7) CVA (cerebral vascular accident): Patient presented with focal findings however the MRI effectively ruled out an acute CVA. Continue PT OT at [facility] Status at Discharge Cognitive/behavioral status at discharge: oriented and at baseline, oriented Functional status at discharge: uses cane/walker Overall status at discharge: patient is progressing back to baseline Time Spent with Patient Greater than 30 minutes Exam Vital Signs (past 8 hours): - 01/07/19 02:00 01/07/19 04:59 Temperature 97.5 F L 97.4 F L Pulse Rate 90 83 Respiratory Rate 16 16 Blood Pressure 103/70 129/81 Pulse Oximetry 91 93 Fraction of Inspired Oxygen 21 Oxygen Delivery Method CPAP Oxygen Flow Rate 0 Narrative Exam Narrative: She is alert and oriented x3. She says her right leg still feels like jelly when she tries to stand and walk. Heart is regular rate and rhythm without murmur, somewhat hyperdynamic. Lungs are clear to auscultation bilaterally. Extremities have no ankle edema. The right foot is very weak. The right and left hand have symmetric strap sewer. She is still having headaches. Objective Labs Result Diagrams: 01/04/19 05:15 01/04/19 05:15 Discharge Plan Discharge Plan Patient Disposition: SNF Transfer to: [facility] [place] Under care of provider: Dr. Bisi Lee certify the postop hospital [facility] care is medically necessary on a continuing basis for any conditions for which he/ she received care during this hospitalization.: Yes The receiving facility has agreed to accept transfer and provide medical treatment.: Yes Discharge Med Rec/Prescriptions Prescriptions: New sumatriptan succinate [Imitrex] 6 mg/0.5 mL Solution 6 mg subcut Q2H PRN (Reason: Headache) Qty: 30 RF: 0 aspirin 325 mg Tablet,Delayed Release (Dr/Ec) 325 mg PO DAILY Qty: 30 RF: 0 topiramate [Topamax] 50 mg tablet 50 mg PO DAILY Qty: 30 RF: 0 levofloxacin 250 mg Tablet 250 mg PO DAILY Qty: 5 RF: 0 Continued clopidogrel [Plavix] 75 MG tablet 75 mg PO DAILY Qty: 0 RF: 0 fenofibrate 54 MG tablet 54 mg PO DAILY Qty: 0 RF: 0 metformin 500 mg Tablet 500 mg PO BID RF: 0 ibuprofen 800 mg tablet 1 tab PO TID PRN (Reason: Pain, Moderate) RF: 0 gabapentin 600 mg tablet 600 mg PO TID PRN (Reason: pain) RF: 0 calcium carbonate [Calcium 500] 500 mg calcium (1,250 mg) Tablet 2,000 mg PO QID RF: 0 magnesium 200 mg Tablet 600 mg PO DAILY RF: 0 sertraline 100 mg tablet 150 mg PO DAILY RF: 0 trazodone 150 mg tablet 150 mg PO BEDTIME RF: 0 verapamil 80 mg tablet 80 mg PO TID RF: 0 bupropion HCl 300 mg tablet extended release 24 hr 300 mg PO DAILY RF: 0 Provider Discharge Instructions Diet: Diet as Tolerated and Regular Liquid consistency: Normal/Thin Food texture: Regular Special Rehabilitation Services Reason for rehabilitation: Therapy following stroke Rehab type: Physical therapy and Occupational therapy Discharge Data Attending Provider: Safia Alexis Admit Date/Time: 01/04/19 17:10 Quality VTE Deep Vein Thrombosis/Pulmonary Embolism Present on Admission: No
--- NOTE | 2019-01-07 09:32 | P.DS_ITS ---
History of Present Illness Date Patient Seen: 01/07/19 Time Patient Seen: 09:32 Chief complaint: Stroke like symptoms Narrative: The patient is a 68-year-old female with PMH ischemic CVA w/ residual deficits (RUE and RLE weakness and gait imbalance), post stroke migraine (requires botox injections Q3 months), DM 2T, HLD, COPD, ABIOLA (CPAP), morbid obesity, depression / anxiety, chronic back pain (i.e. spinal stenosis) Patient presented to the ED on 01/03/2019 out of concern for dysarthria. Dysarthria was noted on 01/03/2019 at 10 AM. Associated symptoms a migraine, difficulty with expressive speech, and slurring of words. Patient reports developing a migraine in the right temporal aspect of the head with radiation to the back at 8:00 AM. Reports severity as 8/10. Associated symptoms include more pronounced right-sided weakness (from baseline) and a sensation of numbness and tingling in lower extremities and right aspect of the face. She notes experiencing difficulty with ambulation. She felt that her legs did not want to cooperate.She reports experiencing lightheadedness with position change. She had her blood pressure checked by her caregiver, notes it to be 136/72 mmHg. Reports blood glucose of 117. Patient denies visual disturbances, specifically change in vision, blurry vision, loss of sight, or seeing spots / flashes. She also did not experience chest pain, palpitations, dyspnea, abdominal pain, nausea, or vomiting. There has not been change in pattern micturition, including urinary frequency, dysuria, or hematuria. She has taken gabapentin to help with migraine relief. Shortly after onset of symptoms patient contacted her PCP who urged her to push her lifeline and seek immediate medical evaluation. Patient is known to have suffered an ischemic CVA in 2010 with residual right- sided weakness and gait instability. Patient ambulates with a use of a walker. Since the aforementioned ischemic event patient reports additional 6 episodes of TIA. She is known to have post CVA migraines for which she receives Botox injections every 3 months, her next injection is due on 01/08/19. Patient reports experiencing similar symptoms in the past in the presence of a migraine. Discharge Providers Date of admission: 01/04/19 17:10 Discharge Date: 01/07/19 Consults: 04/10/19 19:53 Consult to Discharge Planning Routine Comment: Consult to Occupational Therapy Evaluate & Treat Comment: Physician Instructions: Evaluate and treat Consult to Physical Therapy Evaluate & Treat Comment: Physician Instructions: Evaluate and Treat Consult to Speech Therapy Evaluate & Treat Comment: Physician Instructions: Evaluate and treat Discharge provider: Radha Silva MD Summary Discharge Diagnosis: (1) Urinary tract infection: (2) Morbid obesity: (3) Type 2 diabetes mellitus: (4) Hyperlipidemia: (5) Hypertension: (6) Migraine: (7) CVA (cerebral vascular accident): Hospital Course: (1) Urinary tract infection: Urine culture positive for E coli, likely present on admission. Will complete 5 more days of Levaquin at the [facility]. (2) Morbid obesity: (3) Type 2 diabetes mellitus: Chronic, present on admission, will resume metformin now at discharge. (4) Hyperlipidemia: (5) Hypertension: Hypertension, chronic, present on admission, continue usual medication (6) Migraine: Problem details: Patient presents with what looks like a complicated migraine. Her MRI was negative for an acute CVA. She continues to have a headache. She also had stuttering which is not present today. According to the patient the stuttering typically gets better 6-7 hours following her headache. At this time will start Topamax. Will continue Neurontin and ibuprofen as needed (7) CVA (cerebral vascular accident): Patient presented with focal findings however the MRI effectively ruled out an acute CVA. Continue PT OT at [facility] - [facility] Status at Discharge Cognitive/behavioral status at discharge: oriented and at baseline, oriented Functional status at discharge: uses cane/walker Overall status at discharge: patient is progressing back to baseline Time Spent with Patient Greater than 30 minutes Exam Vital Signs (past 8 hours): - 01/07/19 02:00 01/07/19 04:59 Temperature 97.5 F L 97.4 F L Pulse Rate 90 83 Respiratory Rate 16 16 Blood Pressure 103/70 129/81 Pulse Oximetry 91 93 Fraction of Inspired Oxygen 21 Oxygen Delivery Method CPAP Oxygen Flow Rate 0 Narrative Exam Narrative: She is alert and oriented x3. She says her right leg still feels like jelly when she tries to stand and walk. Heart is regular rate and rhythm without murmur, somewhat hyperdynamic. Lungs are clear to auscultation bilaterally. Extremities have no ankle edema. The right foot is very weak. The right and left hand have symmetric hard hat diver. She is still having headaches. Objective Labs Result Diagrams: 01/04/19 05:15 01/04/19 05:15 Discharge Plan Discharge Plan Patient Disposition: SNF Transfer to: [facility], [place] Under care of provider: Dr. Bisi Lee certify the postop hospital us[facility] care is medically necessary on a continuing basis for any conditions for which he/ she received care during this hospitalization.: Yes The receiving facility has agreed to accept transfer and provide medical treatment.: Yes Discharge Med Rec/Prescriptions Prescriptions: New sumatriptan succinate [Imitrex] 6 mg/0.5 mL Solution 6 mg subcut Q2H PRN (Reason: Headache) Qty: 30 RF: 0 aspirin 325 mg Tablet,Delayed Release (Dr/Ec) 325 mg PO DAILY Qty: 30 RF: 0 topiramate [Topamax] 50 mg tablet 50 mg PO DAILY Qty: 30 RF: 0 levofloxacin 250 mg Tablet 250 mg PO DAILY Qty: 5 RF: 0 Continued clopidogrel [Plavix] 75 MG tablet 75 mg PO DAILY Qty: 0 RF: 0 fenofibrate 54 MG tablet 54 mg PO DAILY Qty: 0 RF: 0 metformin 500 mg Tablet 500 mg PO BID RF: 0 ibuprofen 800 mg tablet 1 tab PO TID PRN (Reason: Pain, Moderate) RF: 0 gabapentin 600 mg tablet 600 mg PO TID PRN (Reason: pain) RF: 0 calcium carbonate [Calcium 500] 500 mg calcium (1,250 mg) Tablet 2,000 mg PO QID RF: 0 magnesium 200 mg Tablet 600 mg PO DAILY RF: 0 sertraline 100 mg tablet 150 mg PO DAILY RF: 0 trazodone 150 mg tablet 150 mg PO BEDTIME RF: 0 verapamil 80 mg tablet 80 mg PO TID RF: 0 bupropion HCl 300 mg tablet extended release 24 hr 300 mg PO DAILY RF: 0 Provider Discharge Instructions Diet: Diet as Tolerated and Regular Liquid consistency: Normal/Thin Food texture: Regular Special Rehabilitation Services Reason for rehabilitation: Therapy following stroke Rehab type: Physical therapy and Occupational therapy Discharge Data Attending Provider: Safia Alexis Admit Date/Time: 01/04/19 17:10 Quality VTE Deep Vein Thrombosis/Pulmonary Embolism Present on Admission: No
--- NOTE | 2019-01-07 11:04 | PT.IPTN ---
Current Diagnoses Type 2 diabetes mellitus without complications (01/04/19) Morbid (severe) obesity due to excess calories (01/04/19) Hyperlipidemia, unspecified (01/04/19) Migraine, unspecified, not intractable, without status migrainosus (01/04/19) Essential (primary) hypertension (01/04/19) Cerebral infarction, unspecified (01/04/19) Urinary tract infection, site not specified (01/04/19) Physical Therapy Treatment Note M2 PT-IP Current Condition Start: 01/04/19 11:33 Freq: NEEDED Status: Active Protocol: Document 01/04/19 10:15 HH (Rec: 01/04/19 12:02 HH [id number]) Physical Therapy Current Condition Current Condition Evaluation Date 01/04/19 Treatment Diagnosis Stroke like symptoms, migraine , imparied gait, increased weakness Onset Date 01/01/19 Weight Bearing Status Weight Bearing Status Weight Bear as Tolerated M3 PT-IP Subjective Start: 01/04/19 11:33 Freq: NEEDED Status: Active Protocol: Document 01/07/19 11:04 RCC (Rec: 01/07/19 11:26 RCC [id number]) Subjective Physical Therapy Visit Type Type Treatment Note Visit Start Time 11:04 Visit Stop Time 11:20 Total Visit Minutes 16 Number of DIAL POLISHER Visits 0 Physical Therapy Visit Comments Patient Comments pt states she slept well, her headache is slightly less intense M4 PT-IP Mobility and Gait Start: 01/04/19 11:33 Freq: NEEDED Status: Active Protocol: Document 01/07/19 11:04 RCC (Rec: 01/07/19 11:26 RCC [id number]) PT-Bed Mobility Assessment Supine to Sit Supine to Sit Minimal Assistance 1 Person Assistance Head of Bed Elevated Scooting Scooting to Edge of Bed Contact Guard Assistance PT-Transfer Assessment Sit to and From Stand Sit to and from Stand Minimal Assistance 1 Person Assistance Use of Upper Extremities Equipment Transfer Assistive Device Gait Belt Front Wheeled Walker Orthotic/Prosthetic Devices or Brace: No Transfers Transfer Destination Chair Transfer Technique Stand Step Pivot Transfer Ability Level of Assist Contact Guard Assistance 1 Person Assistance Use of Upper Extremities Gait Assessment Gait Gait Assistance Required: Contact Guard Assist Distance (Feet) 45 Assistive Devices Assistive Device Gait Belt Front Wheeled Walker Orthotic/Prosthetic Devices or Brace: No Gait Deviations General Gait Pattern Decreased Stride Length Decreased Feet Clearance Factors Limiting Gait Function Factors Limiting Gait Function Decreased Activity Tolerance Decreased Sensation Decreased Strength Poor Balance Comments Gait Comments toe drag <50%but greater than 25% of the time with R foot. M5 PT-IP Objective Assessments Start: 01/04/19 11:33 Freq: NEEDED Status: Active Protocol: Document 01/04/19 10:15 HH (Rec: 01/04/19 12:02 HH [id number]) Orientation Orientation/Cognition Level of Alertness Alert Orientation Name Age Birthday Month Date Year Day of Week Place Situation Language Function Ability Garbled Speech Word Finding Difficulties Safety Awareness Understands Safety Issues Memory Description No Deficits Noted Gross Range of Motion Upper Extremity ROM Assessment Right Impaired Impairments unable to reach behind her head Lower Extremity ROM Assessment Right Impaired Impairments unable to perform full knee extension Strength Upper Extremity Strength Assessment Right Impaired Shoulder 3+/5 Elbow 3+/5 Wrist 3/5 Hand 3/5 Lower Extremity Strength Assessment Right Impaired Hip 3+/5 Knee 3+/5 Ankle 3/5 Comments Strength Comments increased WB on LLE during standing. Coordination Assessment Gross Coordination Gross Coordination Impaired Assessment Finger to Nose Test Minimal Impairment Pronation/Supination Test Minimal Impairment Sensation Assessment Sensation Gross Sensation Right UE Impaired Right LE Impaired Light Touch Impaired Proprioception (Position) Impaired Sensation Description Numbness Tingling Comments Sensation Comments decreased sensitivity to LT and pressure on RUE and RLE Muscle Tone Muscle Tone WNL No M6 PT-IP Treatment Start: 01/04/19 11:33 Freq: NEEDED Status: Active Protocol: Document 01/05/19 11:30 AB (Rec: 01/05/19 13:13 AB [id number]) Physical Therapy Treatment Education Education Provided Safety M7 PT-IP Assessment and Plan Start: 01/04/19 11:33 Freq: NEEDED Status: Active Protocol: Document 01/07/19 11:04 RCC (Rec: 01/07/19 11:26 RCC [id number]) PT Summary Assessment and Plan Summary Assessment Summary Pt with improved R foot clearance but still making contact on the ground with R toes and forefoot 25-50% of the time during swing phase of the RLE with gait. Pt is well below her prior level of function, but is showing good, but slow improvements when working with physical therapy. She is a good candidate for SNF rehabilitation to continue to progress her gait, standing balance, strength, bed mobility and overall functional independence and activity tolerance. Goals Bed Mobility Goal Contact Guard Assistance Transfer Goal Contact Guard Assistance Front Wheeled Walker Four Wheeled Walker Gait Goal Contact Guard Assistance Front Wheel Walker Four Wheel Walker Gait Distance 75 Days to Meet Goals 10 Frequency of Treatment Frequency Of Treatment Once a Day Treatment Plan Other Recommendations and Next Treatment cont. to advance gait as Focus tolerated, RLE strengthening, standing balance Recommendations To Nursing Amount of Assist Needed 1 Person Assist Discharge Recommendations PT Discharge Recommendations SNF Rehab
[2019-01-07 11:50] VITALS: BP 144/79; PULSE 81; RESP 16; TEMP 36.8; O2SAT 91
== END 2019-01-07 15:44 | DRG 103 ==
LOC: ED 15:38 → AC 16:26
PROVIDERS: Nurse Practitioner Gerontology; Admitting Provider Internal Medicine; Emergency Provider Emergency Medicine; Visit Provider Internal Medicine
DX: G43.109 Migraine with aura, not intractable, without status migrainosus (principal); Z68.42 Body mass index [BMI] 45.0-49.9, adult; I69.351 Hemiplegia and hemiparesis following cerebral infarction affecting right dominant side; N39.0 Urinary tract infection, site not specified; E66.01 Morbid (severe) obesity due to excess calories; R47.1 Dysarthria and anarthria; I69.398 Other sequelae of cerebral infarction; R26.89 Other abnormalities of gait and mobility; B96.20 Unspecified Escherichia coli [E. coli] as the cause of diseases classified elsewhere; E11.9 Type 2 diabetes mellitus without complications; E78.5 Hyperlipidemia, unspecified; G47.33 Obstructive sleep apnea (adult) (pediatric); I10 Essential (primary) hypertension; Z79.84 Long term (current) use of oral hypoglycemic drugs; R41.0 Disorientation, unspecified
CPT/HCPCS: 36415; 70450; 70496; 70498; 70553; 80048; 80061; 81001; 82962; 83036; 84484; 85025; 85610; 85730; 87077; 87086; 87186; 87633; 92610; 93005; 93010; 93306; 94760; 94762; 96374; 97116; 97162; 97165; 97530; 97535; 99283; 99285; G0378; J0780; J1200; J1885; J2270; J3030

== ENCOUNTER → 2019-06-08 15:23 | Outpatient (CLI) | payer MEDICARE, MEDICAID, SELFPAY ==
[2019-01-03 17:15] VITALS: BMI 49.1
--- NOTE | 2019-06-08 | DI.MRI.S_ITS ---
PROCEDURE: MR CERVICAL SPINE WO CON INDICATIONS: Arthrodesis status TECHNIQUE: Noncontrast sagittal T1 spin echo and T2 fast spin echo, sagittal STIR, foraminal oblique sagittal T2 fast spin echo, and axial gradient echo or T2 fast spin echo through the cervical spine. COMPARISON: [facility] [place], CR, XR CERVICAL SPINE 2 OR 3 VIEWS, 12/21/2017, 10:06. FINDINGS: Image quality: Excellent. Alignment and Curvature: There is grade 1/2 anterolisthesis of C3 on C4, grade 1 retrolisthesis of C4 on C. life. Bone Marrow: Marrow demonstrates normal overall signal. Spinal Cord: Visualized spinal cord has normal size and signal. No cerebellar tonsillar herniation. Paraspinous Soft Tissues: No paravertebral masses. Prevertebral soft tissues are normal in thickness. Discs: Moderate to severe desiccation is present throughout the cervical spine most severe at C3-4. C2-C3: Mild disc bulge without spinal stenosis. Mild to moderate last in mild right foraminal narrowing with uncovertebral hypertrophy. C3-C4: Mild disc bulge with severe spinal stenosis and mild canal compression. Severe left and moderate to severe right foraminal narrowing with uncovertebral hypertrophy. C4-C5: Mild disc bulge with severe spinal stenosis and canal flattening. Severe left and [id number] right foraminal narrowing with uncovertebral hypertrophy. C5-C6: Mild disc bulge with severe spinal stenosis and canal flattening. Moderate to severe left and moderate right foraminal narrowing with uncovertebral hypertrophy. C6-C7: Mild disc bulge with moderate to severe spinal stenosis. Moderate to severe left and moderate right foraminal narrowing with uncovertebral hypertrophy. C7-T1: Mild disc bulge with small superimposed posterior central protrusion. Mild to moderate left foraminal narrowing. T1-T2: Mild disc bulge without spinal stenosis. Moderate bilateral foraminal narrowing. IMPRESSION: 1. Multilevel disc bulges. 2. Multilevel spinal stenosis severe from C3-4 through C5-6 secondary to disc bulge with contributing effect of uncovertebral arthropathy and retrolisthesis. 3. Multilevel foraminal narrowing severe C3-4 and C4-5 secondary to uncovertebral arthropathy. Dictated by: Justine Dickens M.D. on 06/08/2019 at 17:27 Approved by: Justine Dickens M.D. on 06/08/2019 at 17:32
== END ==
PROVIDERS: Visit Provider Orthopaedic Surgery Orthopaedic Surgery of the Spine
DX: M50.11 Cervical disc disorder with radiculopathy, high cervical region (principal); M47.22 Other spondylosis with radiculopathy, cervical region; M48.02 Spinal stenosis, cervical region; Z98.1 Arthrodesis status
CPT/HCPCS: 72141

== ENCOUNTER → 2019-08-22 11:26 | Outpatient (CLI) | payer MEDICARE, MEDICAID, SELFPAY ==
[2019-01-03 17:15] VITALS: BMI 49.1
--- NOTE | 2019-08-22 | DI.CT.S_ITS ---
PROCEDURE: CT LUMBAR SPINE WO CON INDICATIONS: Arthrodesis status TECHNIQUE: Noncontrast 3 mm thick sections acquired from the T12 level to the sacrum. Sagittal and coronal reformats were constructed. For radiation dose reduction, the following was used: automated exposure control. COMPARISON: [facility] [place], CR, XR LUMBAR SPINE 2 OR 3 VIEWS, 04/19/2019, 15:28. [facility], CT, CT ANGIO CHEST PE PROTOCOL, 05/21/2018, 17:42. FINDINGS: Image quality: Excellent. Bones: There is normal bony alignment. No acute vertebral body compression fractures. No suspicious lytic or blastic bony lesions. Central spinal caliber is of normal overall caliber. No pars defects. Prior bilateral posterior fusion from L4-S1 with interbody disc prosthesis placement at L4-5 and L5-S1. T12-L1: Moderate degenerative disc disease with disc height reduction and mild vacuum disc phenomenon centrally, with minimal facet osteoarthritis and no definite spinal or foraminal stenosis. L1-L2: The degenerative disc disease is moderately severe, with associated vacuum disc phenomenon. Facet osteoarthritis is greater on the left than the right with moderate left and mild right foraminal stenosis. Mild asymmetric posterior disc bulge, chronic in appearance, centered at and to the left of midline. L2-L3: The degenerative disc disease at this level is moderately severe, and there is an osteophyte projecting inferiorly dorsal to the disc annulus, centered at and to the left of midline. There is also asymmetric left greater than right facet osteoarthritis resulting in asymmetric moderately severe to severe concentric spinal stenosis and foraminal stenosis that is severe on the left and moderately severe on the right. L3-L4: Degenerative disc height reduction is moderately severe, facet osteoarthritis is moderate, foraminal stenosis is moderate bilaterally symmetric and concentric spinal stenosis is mild to moderate. L4-L5: The degenerative disc disease at this level is quite severe, associated with anterolisthesis of L4 on L5, associated with also facet osteoarthritis but is moderately severe to severe. Asymmetric left greater than right foraminal stenosis is present, definite spinal stenosis however is not found. Mild grade 1 anterolisthesis of L4 on L5 is present as a result. L5-S1: The degenerative changes at this level are moderately severe with essentially liib-vy-osii articulation. Facet osteoarthritis is moderate symmetric bilaterally, and subluxation or significant spinal stenosis is not currently visualized. The foraminal stenosis appears mild and symmetric. Soft tissues: No retroperitoneal masses or hematomas. Visualized aorta is normal in caliber. IMPRESSION: Extensive degenerative disease and postsurgical changes as discussed with spine fusion from L4-S1 and also with interbody disc prosthesis placement at L4-5 and L5-S1. Multilevel spinal and foraminal stenosis is present none of which appears acute and there is no associated compression fracture. No operative complication is found. Dictated by: Mavrel Ortiz M.D. on 08/22/2019 at 16:55 Approved by: Marvel Ortiz M.D. on 08/22/2019 at 17:02
== END ==
PROVIDERS: PCP Physician Assistant Medical; Visit Provider Orthopaedic Surgery Orthopaedic Surgery of the Spine
DX: M51.36 Other intervertebral disc degeneration, lumbar region (principal); M51.37 Other intervertebral disc degeneration, lumbosacral region; M48.061 Spinal stenosis, lumbar region without neurogenic claudication; M48.07 Spinal stenosis, lumbosacral region; Z98.1 Arthrodesis status
CPT/HCPCS: 72131

== ENCOUNTER 2019-11-26 05:56 | Inpatient (IN) | payer MEDICARE, MEDICAID, SELFPAY ==
[2019-01-03 17:15] VITALS: BMI 49.1
[2019-10-29 09:32] VITALS: BMI 45.3
[2019-11-26] VITALS (20 sets, daily range): BP systolic 112–170; BP diastolic 61–97; PULSE 82–110; RESP 10–21; TEMP 36–36.9; O2SAT 90–99; BMI 43.2
--- NOTE | 2019-11-26 | DI.RAD.S_ITS ---
PROCEDURE: XR LUMBAR SPINE 2-3V INDICATIONS: L2-3, L3-4 TLIF, HWR , REINSERTION TECHNIQUE: 2 views of the lumbar spine were acquired. COMPARISON: [facility], CT, CT LUMBAR SPINE WO CON, 08/22/2019, 11:29. FINDINGS: Bones: 5 [id number] vertebrae are present. Postsurgical changes compatible with L2-S1 TLIF Orthopedic hardware is intact. Soft tissues: Overlying bowel gas pattern is normal. No suspicious soft tissue calcifications. IMPRESSION: Expected postsurgical change for multilevel TILF. Dictated by: Yris Thomson MD, PhD on 11/26/2019 at 14:55 Approved by: Yris Thomson MD, PhD on 11/26/2019 at 14:57
[2019-11-26] MEDS: LACTATED RINGERS 1,000 ML 42 ML IV ×4 (07:17→13:26)
[2019-11-26] MEDS: ACETAMINOPHEN 325 MG TABLET 975 MG PO (07:18)
[2019-11-26] MEDS: CELECOXIB 200 MG CAPSULE 400 MG PO (07:18)
[2019-11-26] MEDS: GABAPENTIN 300 MG CAPSULE PO (07:18)
--- NOTE | 2019-11-26 07:28 | SUR.PREOP ---
PT REPORTS HAS NUMBNESS IN RIGHT HAND AND BILATERAL FEET RELATED TO HX OF STROKE AND NEUROPATHY. PT REPORTS THIS IS A CHRONIC CONDITION.
[2019-11-26] MEDS: CEFAZOLIN 2 GM/100 ML FROZ.PIGGY IV ×2 (07:50→19:21)
--- NOTE | 2019-11-26 07:50 | PM.PREOP ---
Pre-operative Note Interval Note History & Physical reviewed/Exam performed by Physician: Yes Changes to H&P: No
--- NOTE | 2019-11-26 08:42 | SUR.OPER ---
Prone on spine table, head in foam head support, padded chest and pelvic supports, gel pad at knees, lower legs supported by pillows; nipples, genitalia and toes free of pressure, arms secured on foam padded arm boards at <90 degrees abduction. Tape over blanket at thigh secured to table.
[2019-11-26] MEDS: BUPIVACAINE LIPOSOME 266 MG/20 ML VIAL INJ (09:04)
[2019-11-26] MEDS: BUPIVACAINE 0.25% W/ EPI 30 ML VIAL INJ (09:05)
[2019-11-26] MEDS: CEFAZOLIN 1 GM VIAL IV (11:39)
--- NOTE | 2019-11-26 13:49 | PC.NURSE ---
Day shift: Pt not on AC unit at this time.
--- NOTE | 2019-11-26 14:52 | PM.OP.1 ---
Operative Date/Time/Diagnoses Date of procedure: 11/26/19 Time of procedure: 07:52 Pre-op diagnosis: 1. L2-3, L3-4, L4-5, L5-S1 spinal stenosis 2. Hx of L4-5, L5-S1 fusion 3. L2-3, L3-4, L4-5, L5-S1 spondylosis with radiculopathy Post-op diagnosis: same Procedure & Clinicians Procedure: 1. L2-3, L3-4 posterolateral and posterior interbody fusion 2. L2-3, L3-4 posterior interbody cage placement 3. L4-5, L5-S1 posterior segmental instrumentation removal 4. L2-3, L3-4 decompressive laminectomies 5. L4-5, L5-S1 revision laminectomy with exploration of fusion 6. L2-3, L3-4, L4-5, L5-S1 posterior segmental instrumentation with pedicle screw placement 7. L4-5 posterolateral fusion 8. [place] of bone marrow from iliac crest through a separate incision 9. Utilization of microsurgical technique and operating microscope Same procedure as scheduled: Yes Indications: Patient has been having chronic back pain and worsening lumbar radiculopathy. Patient had prior fusion surgery with good relief of her pain for over 1 year. Patient had progressive worsening back pain and radiculopathy. Patient failed multiple conservative management with worsening pain weakness and numbness in her lower extremity. Patient has been having difficulty performing activity of daily living. After discussing risks benefits of treatment options, patient elected proceed with surgery. Surgeon: Kt Escalera Site Damage Prevention Technician: Krissy Johnson Click Yes if Unassisted: No Anesthesia Type: General Operative Notes Closure Type: primary Specimen(s): none sent Prosthetic devices, grafts, tissues, transplants, or devices: Globus revolve screws, Rise cages Applied: catheter Estimated Blood Loss (mL): 200 Blood products transfused: none Procedure in detail: Patient was seen in the preoperative area. Risks and benefits of the surgery was discussed with the patient. Informed consent was obtained from the patient and placed in the chart. Surgical site was marked. Patient was taken to the operative room. General anesthesia was administered. Prophylactic antibiotic was given to the patient less than 30 min before the incision was made. Patient was placed into a prone position on the Arnel table. Patient's back was then prepped and draped in the sterile fashion. Time-out was performed at this time. Using patient's previous scar incision was made over the L2-3, L3-4, L4-5, L5-S1 interval on the right side. Fascia was incised in line with skin incision. Patient's previously placed hardware over the L4-5 L5-S1 level was identified by dissecting down to the level the hardware using a Bovie and a Collins. The locking caps which was removed using globus screwdriver. The locking deacon was then removed from the tulips of the pedicle screws using a Joseph. The pedicle screws were then removed using the screwdriver. The screws were found to have good purchase. The Globus and MARS retractors was then placed into the wound and docked onto the L2 and L3 lamina using C-arm guidance. Using microsurgical technique and operating microscope a laminectomy facetectomy was performed by removing the L2 and L3 lamina and the L2-3 L3-4 facet. The patient was found have severe central and neural foramen stenosis at both levels which was fully decompressed after the decompression was completed. The disc space at L2-3 L3-4 level was identified next. And a total diskectomy was performed at L2-3 L3-4 level. The endplates were decorticated using a rasp and shaver. The total diskectomy and decortication was performed at L2-3 L3-4 level in order to to accomplish a L2-3 L3-4 fusion. The local bone from the laminectomy and facetectomy was saved for local bone grafting. After the total diskectomy and decortication was completed, Globus viacell bone graft material was combined with local bone that was harvested earlier. At this time, a separate skin is incision was made over the iliac crest. A Jamshidi needle was inserted into the iliac crest through a separate skin incision. 5 cc of bone marrow aspiration was obtained through the separate skin incision using a Jamshidi needle from the iliac crest. The bone marrow aspiration was combined with local bone and the via cell bone grafting material. The bone grafting material was placed into the L2-3-L3-4 interbody space along with a expandable cage. The cage was expanded to its maximum height using the torque limiting screwdriver. At this time a mirror image incision was made on the left side. The fascia was incised in line with the skin incision. Patient's previously placed hardware on the left side was then removed in the same fashion as it was on the right side. The hardware was also found to have good purchase. The fusion mass on the left side was exposed by performing a left-sided hemilaminectomy at L4-5 L5-S1 level. The hemilaminectomy was performed using the Kerrison rongeur to undercut the lamina as well removing additional epidural scar tissue for purpose of decompressing the epidural space. The fusion mass was explored and was found have solid fusion at L5-S1 and visible motion at L4-5 indicating pseudoarthrosis. Globus MARS retractor was inserted and docked onto the L2-3 L3-4 L4-5 posterolateral gutter. Using the power drill, posterior-lateral decortication was performed at L2-3 L3-4 L4-5 level until bleeding cortical bone was identified. The remaining bone grafting material was placed into the L2-3 L3-4 L4-5 posterior lateral gutter he order to accomplish posterolateral fusion at the L2-3 L3-4 L4-5 level. Using the double C-arm technique, pedicle screws were placed into the L2-L3-L4-L5 and S1 pedicles bilaterally. This was done by placing the Jamshidi needle into the pedicles, then placing the guidewires over the Jamshidi needle, and finally placing the cannulated screws over the guidewires bilaterally. After the pedicle screws were placed, 2 titanium rods was locked into the heads of the pedicle screws using locking caps and torque limiting screwdriver. After all the hardware was placed, and confirmed with AP and lateral C-arm imaging, the wound was then irrigated with sterile normal saline and packed with Ray-Kristin gauze for 3 min to accomplish hemostasis. After the gauze was removed the deep fascia was closed with #1 Vicryl suture. The subcutaneous layer was closed with 2-0 Vicryl. The skin was closed with skin abbey. Patient tolerated the procedure well. There were no complications. Complications: none Post-operative Condition: stable Disposition: PACU Plan for aftercare: Admit to inpatient hospital
[2019-11-26] MEDS: HYDROMORPHONE 2 MG INJ IV ×3 (15:20→15:43)
--- NOTE | 2019-11-26 16:30 | SUR.PHASEI ---
Report called to Aleena Rasheed.
--- NOTE | 2019-11-26 16:31 | SUR.PHASEI ---
Patient transferred to the floor by Kenia with walker.
[2019-11-26] MEDS: OXYCODONE IR 5 MG TABLET PO (19:21)
[2019-11-26] MEDS: SODIUM CHLORIDE 0.9% 1,000 ML 100 ML IV (19:21)
[2019-11-26] MEDS: HYDROMORPHONE 0.5 MG INJ IV ×2 (19:21→23:50)
[2019-11-26] MEDS: OXYCODONE IR 10 MG TABLET PO (21:51)
[2019-11-26] MEDS: ACETAMINOPHEN 325 MG TABLET 650 MG PO (21:51)
[2019-11-26] MEDS: SENNOSIDES 8.6 MG TABLET 17.2 MG PO (21:52)
[2019-11-26] MEDS: METFORMIN HCL 500 MG TABLET 1000 MG PO (21:52)
[2019-11-26] MEDS: TRAZODONE 50 MG TABLET 150 MG PO (21:52)
[2019-11-26] MEDS: DOCUSATE 100 MG CAPSULE PO (21:53)
[2019-11-26] MEDS: VERAPAMIL 80 MG TABLET PO (21:55)
--- NOTE | 2019-11-26 23:22 | PC.NURSE ---
Post-op note: Bushra dozing in bed, awakes to voice, oriented x 3 and situation. VS are stable. Speech a bit delayed, words appropriate. Weakness to RUE with hx of CVA, she also reports vague numbness to bilateral wrists. 2 max assist repositioning, is not able to bend knees well & LLE became very stiff once when trying to logroll. After post-op and sleeping a couple of hours, woke up & reported pain 7/10. Medicated with Dilaudid 0.5 mg IV and 1 tab oxycodone. After that she reported pain much better able to sleep, rates pain a 4. RT here to set up CPAP, 2L O2 bled in, saturation has maintained 92-96%, desaturates on RA when sleeping to high 80's. Continuous pulse ox monitoring continues. HR regular. Puffy non-pitting edema to blair LE's. Skin pink to cheeks, has small skin tear under right eye from O2 NC in OR. Dull pink skin to right upper thigh/pannus fold outlined with pen essie by me. Small 2x2 drsg is CDI to right lateral pannus fold. Wearing bilateral foot SCD's. Fall precautions in place, alarm active for safety.
[2019-11-27] VITALS (14 sets, daily range): BP systolic 110–128; BP diastolic 60–70; PULSE 99–115; RESP 16–19; TEMP 36.6–37.4; O2SAT 87–97
[2019-11-27] MEDS: CEFAZOLIN 2 GM/100 ML FROZ.PIGGY IV
[2019-11-27] MEDS: OXYCODONE IR 10 MG TABLET PO ×3 (02:25→12:40)
[2019-11-27] MEDS: SODIUM CHLORIDE 0.9% 1,000 ML 100 ML IV (04:17)
[2019-11-27] MEDS: OXYCODONE IR 5 MG TABLET PO (05:22)
[2019-11-27 05:39] LABS: Hematocrit 41.5 % (36-46); Hemoglobin 13.6 g/dL (12.0-16.0)
--- NOTE | 2019-11-27 06:27 | PC.NURSE ---
Pt alert and oriented x4. Jesus draining straw colored urine. Bladder scanned d/t small amount of urine into catheter overnight. Bladder scan showed 0-20ml volume. Encouraged pt to drink more fluids. Pt pain controlled with oxycodone q3 hours. Turning pt q 2 hours. Bed alarm set. Pt has no complaints at this time
[2019-11-27 08:30] LABS: Hematocrit 40.2 % (36-46); Hemoglobin 13.2 g/dL (12.0-16.0); Mean Corpuscular HGB Conc 32.9 % (30-36); Mean Corpuscular Hemoglobin 29.8 PG (26-34); Mean Corpuscular Volume 90.5 fL (80-100); Platelet Count 270 X10^3/uL (150-400); Red Blood Cell Count 4.44 X10^6/uL (4.0-5.2); Red Cell Distribution Width 14.7 % (11.6-14.8); White Blood Cell Count 11.5 X10^3/uL (4.5-11.0)
[2019-11-27 08:39] LABS: Alanine Aminotransferase 49 IU/L (<35); Albumin 3.2 g/dL (3.5-5.0); Albumin Globulin Ratio 0.9 (1.0-2.8); Alkaline Phosphatase 54 U/L (38-126); Aspartate Aminotransferase 387 IU/L (14-36); BUN Creatinine Ratio 13.8 (6-22); Bilirubin Total 0.4 mg/dL (0.2-1.3); Blood Urea Nitrogen 22 mg/dL (7-17); Calcium 8.3 mg/dL (8.4-10.2); Carbon Dioxide 23 mmol/L (22-32); Chloride 105 mmol/L (98-107); Estimated Glomerular Filt Rate 32.2 mL/min (>60); Globulin 3.4 g/dL (1.7-4.1); Glucose 145 mg/dL (80-110); HEMOLYSIS < 15 (0-50); Potassium 4.5 mmol/L (3.4-5.1); Sodium 137 mmol/L (137-145); Total Protein 6.6 g/dL (6.3-8.2)
[2019-11-27] MEDS: DOCUSATE 100 MG CAPSULE PO ×2 (08:41→20:09)
[2019-11-27] MEDS: METFORMIN HCL 500 MG TABLET 1000 MG PO ×2 (08:41→20:10)
[2019-11-27] MEDS: buPROPion XL 150 MG TAB 300 MG PO (08:41)
[2019-11-27] MEDS: VERAPAMIL 80 MG TABLET PO ×2 (08:42→20:12)
[2019-11-27] MEDS: ACETAMINOPHEN 325 MG TABLET 650 MG PO (08:42)
--- NOTE | 2019-11-27 10:08 | PC.NURSE ---
Addendum entered by Michaelle Martel R.N. 11/27/19 11:01: Patient on CPAP for a nap. Patient reports pain is getting better (6/10) post Dilaudid administration. Jesus is patent and draining, still appears to be minimal amount of output encouraging patient to drink fluids. IV infusing NS at 100ml/hr. Lung sounds clear. Notably distended abdomen patient reports hernia. Will continue to monitor. Call light in reach. Bed alarm on. Original Note: Patient working with PT, able to sit at edge of bed, island barrier dsg noted to have approximately 3 inches of round, shadow drainage at this time, borders marked in pen. Patient stating pain is at a 7/10, noted grimacing and guarding during movement. Patient on room air with activity at 90%, during rest patient drops to 85%. Patient denies wanting to go back to sleep, will apply NC at this time at 2L. Will administer PRN medication for breakthrough pain. SCD's reapplied. Bed alarm on.
[2019-11-27] MEDS: HYDROMORPHONE 0.5 MG INJ IV (10:14)
--- NOTE | 2019-11-27 10:20 | PT.IIE ---
Current Diagnoses Other spondylosis with radiculopathy, lumbosacral region (11/26/19) Spinal stenosis, lumbar region without neurogenic claudication (11/26/19) Arthrodesis status (11/26/19) Surgery Performed Operation Date: 11/26/19 07:45 Actual Procedures p L2-3, L3-4 TLIF, L4-S1 HWR, L2-S1 PSF W/ Instrumentation - Kt Escalera MD Surgical History (Last Updated 10/29/19 @ 10:43 by Naomy Bridges RN) History of 3 sections (Acute) History of lumbar spinal fusion (Acute 06/27/17) History of spinal surgery (Resolved) History of ventral hernia repair (Inactive) Hx of umbilical hernia repair (Acute) S/P cholecystectomy (Inactive) S/P trigger finger release (Inactive) Medical History (Last Updated 10/29/19 @ 10:32 by Naomy Bridges RN) Acute kidney injury (Acute ~12/2018) Cardiomegaly (Acute) Depression with anxiety (Chronic) Easy bruisability (Acute) History of concussion (Acute) History of recurrent TIAs (Acute) History of stroke (Resolved) Hyperlipidemia associated with type 2 diabetes mellitus (Chronic) Hypothyroid (Acute) Migraine (Chronic) Morbid obesity with BMI of 45.0-49.9, adult (Chronic) Neuropathy (Acute) ABIOLA on CPAP (Acute) Osteopenia (Acute) Polyneuropathy (Acute) Radiculopathy (Acute) Type 2 diabetes mellitus (Chronic) Vitamin D deficiency (Acute) Physical Therapy Inpatient Evaluation/Re-Eval M1 PT/OT-IP Prior Functional Status Start: 11/27/19 08:53 Freq: NEEDED Status: Active Protocol: Document 11/27/19 10:15 AW (Rec: 11/27/19 12:30 AW [id number]) Medical Review Prior Functional Status Medical History Reviewed Yes Diet/Fluid Consistency Regular Communication Pt has history of CVA in 2010 and multiple TIA's since that time. She appears to have some word-finding difficulties at baseline. Mobility and Gait Pt uses a 4WW 100% of the time at home. She uses a manual wheelchair for longer community distances. Activities of Daily Living and IADL's Pt has SBA for dressing and bathing tasks at home. She is independent with toileting. Prior Functional Level (Other details) Bushra has a caregiver in her home [place] through Tuesday [id number] who provides SBA for dressing and showers. Caregiver also provides cleaning and driving assist. Social History Household Members none Living Arrangements Apartment/Condo Number of Floors (Floors) One Floor Number of Stairs To Enter/Railing? Level entrance Home Environment High Toilet,Tub/Shower Home Equipment Four Wheel Walker,Manual Wheelchair,Tub Transfer Bench, Grab Bars In Shower Additional Social History Comment Pt has caregiver support at home [id number] M-F. Her daughter lives in the same apartment complex and checks on her frequently - at least daily. M2 PT-IP Current Condition Start: 11/27/19 08:53 Freq: NEEDED Status: Active Protocol: Document 11/27/19 10:15 AW (Rec: 11/27/19 12:30 AW [id number]) Physical Therapy Current Condition Current Condition Evaluation Date 11/27/19 Treatment Diagnosis L2-5 TLIF Onset Date 11/26/19 Precautions Lumbar Precautions Log Roll,No Twisting,Limit Bending,Lifting Restriction of 10 lbs,Gait Belt above Incisional Area Weight Bearing Status Weight Bearing Status Full Weight Bearing M3 PT-IP Subjective Start: 11/27/19 08:53 Freq: NEEDED Status: Active Protocol: Document 11/27/19 10:15 AW (Rec: 11/27/19 12:30 AW [id number]) Subjective Physical Therapy Visit Type Type Initial Evaluation Visit Start Time 09:26 Visit Stop Time 10:05 Total Visit Minutes 39 Number of TRAIN CREW MEMBER Visits 0 Physical Therapy Visit Comments Patient Comments Pt willing to work with PT Patient Goals Pt went to SNF following prior lumbar surgery and hopes to do the same this episode Therapy Pain Assessment Pain When Pain Assessed During Mobility Pain Present Pain Present Pain Reported Location lower back Intensity 7 Scale Used 5/10 at rest; 7/10 with bed mobility Pain Behaviors Facial Grimacing,Guarding, Moaning,Wincing Pain Management Techniques Distraction,Re-positioning, Timing of Activity with Medications M4 PT-IP Mobility and Gait Start: 11/27/19 08:53 Freq: NEEDED Status: Active Protocol: Document 11/27/19 10:15 AW (Rec: 11/27/19 12:30 AW [id number]) PT-Bed Mobility Assessment Rolling Type of Rolling Log Rolling,Roll to Left Level of Assist Maximal Assistance,1 Person Assistance Supine to Sit Supine to Sit Maximum Assistance,1 Person Assistance,Bedrails Sit to Supine Sit to Supine Maximum Assistance,2 Person Assistance Scooting Scooting to Edge of Bed Maximum Assistance Scooting Up and Down in Bed Dependent PT-Transfer Assessment Comments Mobility Comments Pt sitting up in bed upon PT arrival, cheerful and willing to attempt mobility. She has history of CVA affecting strength on her right side. She was unable to independently flex her knees/ hips in bed, requiring assist to get into position for log roll to her left side. Log roll to her left and supine to sit required max A x 1 with pt reporting sharp increase in pain. Sitting ability was poor, with pt unable to extend through her spine. She had access to the bed cane on her right side but was able to aerologist it only weakly without ability to right her trunk independently. She required max assist at all times to maintain sitting position due to pain and weakness. PT called nursing for assist with return to supine after 8 minutes sitting and max A attempts to scoot toward EOB which were ultimately unsuccessful. RN assisted with max A x 2 sit to supine transfer. Pt was dependent for scooting up in the bed where she was positioned with call light and all needs within reach, bed alarm on for safety . Gait Assessment Comments Gait Comments Pt unable at this time Stair Climbing Assessment Comments Stair Climbing Comments Not assessed. No stairs at home PT-Balance Assessment Sitting Balance and Reactions Static Sitting Balance Ability Poor Dynamic Sitting Balance Ability Poor M5 PT-IP Objective Assessments Start: 11/27/19 08:53 Freq: NEEDED Status: Active Protocol: Document 11/27/19 10:15 AW (Rec: 11/27/19 12:30 AW [id number]) Orientation Orientation/Cognition Level of Alertness Alert Orientation Name,Day of Week,Place, Situation Language Function Ability Word Finding Difficulties Safety Awareness Understands Safety Issues Memory Description No Deficits Noted Gross Range of Motion Lower Extremity ROM Assessment Bilaterally Impaired Strength Lower Extremity Strength Assessment Bilaterally Impaired Hip 3-/5 Knee 3-/5 Ankle 3/5 Sensation Assessment Sensation Gross Sensation Right LE Impaired,Left LE Impaired Light Touch Impaired Proprioception (Position) Impaired Comments Sensation Comments Pt has diabetic neuropathy affecting sensation in bilateral plantar feet M6 PT-IP Treatment Start: 11/27/19 08:53 Freq: NEEDED Status: Active Protocol: Document 11/27/19 10:15 AW (Rec: 11/27/19 12:30 AW [id number]) Physical Therapy Treatment Exercises Exercises Ankle Pumps Education Education Provided Precautions,Weight Bearing Status,Post-Op Packet,Safety Other Treatments Other Treatment Performed Provided education on role of PT, plan of care, spinal precautions, log roll for bed mobility. M7 PT-IP Assessment and Plan Start: 11/27/19 08:53 Freq: NEEDED Status: Active Protocol: Document 11/27/19 10:15 AW (Rec: 11/27/19 12:30 AW [id number]) PT Summary Assessment and Plan Potential Rehabilitation Potential Fair Status of Condition at Evaluation Evolving Summary Impairments Pain,ROM,Strength,Balance, Sensation,Cognition,Bed Mobility,Transfers,Gait, Activity Tolerance Assessment Summary Bushra is a 69 yo woman with history of CVA and multiple TIA affecting right-sided strength. She has mild difficulty with word-finding at baseline, history of migraines, and diabetic neuropathy affecting sensation in bilateral plantar feet. At baseline, she uses a 4WW for household mobility and a manual wheelchair for longer distance community mobility. She has caregiver support [phone] Tuesday through Tuesday. After prior spine surgery, she discharged to SNF and hopes to do so again this episode. Evaluation was limited with pt requiring max assist for bed mobility and to sit EOB due to poor trunk control and increased pain with movement. She will require SNF rehab to return to prior level of function. She is not safe to discharge home where she has no night time or weekend assist. She requires continued acute and subacute therapy to improve her mobility and to decrease risks assosciated with immobility. Goals Bed Mobility Goal Minimal Assistance Transfer Goal Minimal Assistance,Front Wheeled Walker Gait Goal Minimal Assistance,Front Wheel Walker Gait Distance 50 Days to Meet Goals 10 Frequency of Treatment Frequency Of Treatment Twice a Day Treatment Plan Physical Therapy Treatment Plan Bed Mobility Training,Transfer Training,Gait Training, Therapeutic Exercise,Balance Retraining,Post Op Education, Discharge Planning,Hot or Cold Pack,Neuromuscular Re-ed, Coordination Retraining,Manual Therapy Other Recommendations and Next Treatment bed mobility with 2PA, attempt Focus to stand if able to sit EOB Recommendations To Nursing Amount of Assist Needed PT/OT Assist Only,Mechanical Lift Discharge Recommendations PT Discharge Recommendations SNF Rehab Transportation Needs at Discharge Wheelchair/Cabulance
--- NOTE | 2019-11-27 11:14 | P.PN_ITS ---
Subjective Subjective Date Patient Seen: 11/27/19 Interval history: Patient is POD#1 s/p L2-S1 TLIF with L4-S1 HWR with Dr. Escalera. Pain has been moderate to severe requiring both Oxycodone 10mg and IV Dilaudid. Of note patient had a dural tear, has not been OOB or had HOB elevated overnight. She denies any headache or nausea, does have a history of migraines. Exam Vital Signs (past 8 hours): - 11/27/19 04:17 11/27/19 05:30 11/27/19 06:23 Temperature 97.8 F Pulse Rate 104 H Respiratory Rate 18 Blood Pressure 128/60 Pulse Oximetry 93 93 92 11/27/19 08:00 11/27/19 08:42 11/27/19 10:05 Temperature 99.1 F 99.1 F Pulse Rate 110 H Respiratory Rate 16 Blood Pressure 119/67 Pulse Oximetry 93 94 11/27/19 10:07 Temperature Pulse Rate 113 H Respiratory Rate Blood Pressure 111/63 Pulse Oximetry Oxygen Delivery Method CPAP Oxygen Flow Rate 1 Narrative Exam Narrative: 69 year old morbidly obese female, resting in bed in moderate discomfort. Alert and oriented. Dressing to lumbar spine is CDI. 4/5 BLE, stable from preop exam. Calves soft, compressible. Objective Labs Result Diagrams: 11/27/19 08:10 11/27/19 08:10 Labs: Laboratory Results - last 24 hr 11/27/19 11/27/19 11/27/19 04:55 08:10 08:10 WBC 11.5 H RBC 4.44 Hgb 13.6 13.2 Hct 41.5 40.2 MCV 90.5 MCH 29.8 MCHC 32.9 RDW 14.7 Plt Count 270 Sodium 137 Potassium 4.5 Chloride 105 Carbon Dioxide 23 BUN 22 H Creatinine 1.60 H Estimated GFR 32.2 L BUN/Creatinine Ratio 13.8 Glucose 145 H Calcium 8.3 L Total Bilirubin 0.4 AST 387 H ALT 49 H Alkaline Phosphatase 54 Total Protein 6.6 Albumin 3.2 L Globulin 3.4 Albumin/Globulin Ratio 0.9 L Assessment & Plan Assessment & Plan narrative: Patient with PMH significant for morbid obesity, CVA, DM, ABIOLA, and history of SHARON last year who is POD 1 s/p L2-S1 TLIF. Poor pain control. After trial of consistent Oxycodone 10mg dosing, patient continued to require IV Dilaudid. PO Dilaudid 2mg moderate 4mg severe pain added. Avoid IV dosing. Poor urinary output. CBC/CMP ordered showing Cr of 1.6, preop was 0.9. Discussed with hospitalist Dr. Price who recommends to continue IV fluids, monitor output and trend Cr. He does not recommend formal consult at this time unless output or Cr do not improve. Daily CMP ordered. Patient's HOB was elevated to 45 degrees this morning, instructed nursing to lower if patient develops positional headache. She is to continue to work with PT/OT. Currently 2-3 person assist. Poor base line mobility. She has required extended stay at SNF rehab after previous procedures. Anticipate discharge to SNF once deemed medically stable over the next 2-3 days. Quality VTE Deep Vein Thrombosis/Pulmonary Embolism Present on Admission: No
--- NOTE | 2019-11-27 12:29 | PC.NURSE ---
Patient resting in bed. HR is still tachy and temperature is slightly elevated with PRN tylenol on board. Patient is A/Ox3, pain is at a 6/10, patient mildly diaphoretic. Denies feeling SOB, or increased WOB. IV in left hand is leaking, will D/C and use right hand IV to continue fluid administration.
--- NOTE | 2019-11-27 14:00 | OT.IP.EVAL ---
Current Diagnoses Other spondylosis with radiculopathy, lumbosacral region (11/26/19) Spinal stenosis, lumbar region without neurogenic claudication (11/26/19) Arthrodesis status (11/26/19) Surgery Performed Operation Date: 11/26/19 07:45 Actual Procedures p L2-3, L3-4 TLIF, L4-S1 HWR, L2-S1 PSF W/ Instrumentation - Kt Escalera MD Past Medical History (Last Updated 10/29/19 @ 10:32 by Naomy Bridges RN) Acute kidney injury (Acute ~12/2018) Cardiomegaly (Acute) Depression with anxiety (Chronic) Easy bruisability (Acute) History of concussion (Acute) History of recurrent TIAs (Acute) History of stroke (Resolved) Hyperlipidemia associated with type 2 diabetes mellitus (Chronic) Hypothyroid (Acute) Migraine (Chronic) Morbid obesity with BMI of 45.0-49.9, adult (Chronic) Neuropathy (Acute) ABIOLA on CPAP (Acute) Osteopenia (Acute) Polyneuropathy (Acute) Radiculopathy (Acute) Type 2 diabetes mellitus (Chronic) Vitamin D deficiency (Acute) Surgical History (Last Updated 10/29/19 @ 10:43 by Naomy Bridges, [place]) History of 3 sections (Acute) History of lumbar spinal fusion (Acute 06/27/17) History of spinal surgery (Resolved) History of ventral hernia repair (Inactive) Hx of umbilical hernia repair (Acute) S/P cholecystectomy (Inactive) S/P trigger finger release (Inactive) Occupational Therapy Inpatient Evaluation/Re-Eval M1 PT/OT-IP Prior Functional Status Start: 11/27/19 14:26 Freq: NEEDED Status: Active Protocol: Document 11/27/19 14:00 [facility] (Rec: 11/27/19 14:59 [facility] [id number]) Medical Review Prior Functional Status Medical History Reviewed Yes Diet/Fluid Consistency Regular Communication Pt has history of CVA in 2010 and multiple TIA's since that time. She appears to have some word-finding difficulties at baseline. Mobility and Gait Pt uses a 4WW 100% of the time at home. She uses a manual wheelchair for longer community distances. Activities of Daily Living and IADL's Pt has SBA for dressing and bathing tasks at home. She is independent with toileting. Pt has Meals on Wheels and mainly just makes oatmeal for breakfast. Pt does her own bills and medications per pt. Prior Functional Level (Other details) Bushra has a caregiver in her home Tuesday through Tuesday [phone] who provides SBA for dressing and showers. Caregiver also provides cleaning and driving assist. Social History Household Members none Living Arrangements Apartment/Condo Number of Floors (Floors) One Floor Number of Stairs To Enter/Railing? Level entrance Home Environment High Toilet,Tub/Shower Home Equipment Four Wheel Walker,Manual Wheelchair,Tub Transfer Bench, Grab Bars In Shower Additional Social History Comment Pt has caregiver support at home [phone] M-F. Her daughter lives in the same apartment complex and checks on her frequently - at least daily. M2 OT-IP Current Condition Start: 11/27/19 14:26 Freq: Status: Active Protocol: Document 11/27/19 14:00 [facility] (Rec: 11/27/19 14:59 [facility] [id number]) Occupational Therapy Current Condition Current Condition Evaluation Date 11/27/19 Treatment Diagnosis S/p L2-3, L3-4TLIF , L4-5 HWR PSFw/ Instrumentation Diagnosis Onset Date 11/26/19 Post Operative Precautions Lumbar Precautions Log Roll,No Twisting,Limit Bending,Lifting Restriction of 10 lbs,Gait Belt above Incisional Area Weight Bearing Status Weight Bearing Status Weight Bear as Tolerated M3 OT- IP Subjective and Pain Start: 11/27/19 14:26 Freq: Status: Active Protocol: Document 11/27/19 14:00 [facility] (Rec: 11/27/19 14:59 [facility] [id number]) OT- Subjective Occupational Therapy Visit Type Type Initial Evaluation Visit Start Time 13:12 Visit Stop Time 14:00 Total Visit Minutes 48 Occupational Therapy Visit Comments Patient Comments Pt willing to try to get up. PT/OT both in due to pt needing extensive assist for bed mobility needs. Patient/Caregiver Goals To go to skilled rehab to be able to get back to taking care of herself before going home. OT Pain Assessment Pain When Pain Assessed During Mobility Pain Present Pain Present Pain Reported Location lower back Intensity 5 Scale Used Numeric (1 - 10) M4 OT- IP ADL's Start: 11/27/19 14:26 Freq: Status: Active Protocol: Document 11/27/19 14:00 [facility] (Rec: 11/27/19 14:59 [facility] [id number]) OT [id number] Comments OT Self-Feeding Comments Not at meal time. OT ADL-Grooming General Evaluation Grooming Ability Standby Assistance Areas Needing Assistance Retrieving/Set-up of Grooming Items Comments OT Grooming Comments Able to do while sitting with the HOB up. OT ADL-Oral Care General Eval Oral Care Ability Independent OT ADL-Dressing General Eval Lower Body Dressing Ability Total Assistance Areas Needing Assistance Socks OT ADL-Toileting General Evaluation Toileting Ability Total Assistance Comments OT Toileting Comments Jesus in. OT ADL-Bathing Comments OT Bathing Comments NOt at this time. M5 OT- IP IADL's Start: 11/27/19 14:26 Freq: Status: Active Protocol: Document 11/27/19 14:00 [facility] (Rec: 11/27/19 14:59 [facility] [id number]) OT-Instrumental Activities of Daily Living Home Safety Awareness Awareness of Need for Assistance at Home Good Awareness Valve Steamer Valve Steamer Caregiver Provides Assist M6 OT- IP Functional Cognition Start: 11/27/19 14:26 Freq: Status: Active Protocol: Document 11/27/19 14:00 [facility] (Rec: 11/27/19 14:59 [facility] [id number]) Cognitive Factors Limiting Selfcare Function Cognitive Ability Level of Alertness Alert Patient Orientation Name,Place,Situation Attention Span Ability Capable of Focused Attention, Capable of Sustained Attention Ability to Follow Commands Able to Follow One Step Commands Safety Awareness Decreased Recall of Precautions Cognitive Comments Cognitive Assessment Comments Pt able to follow steps appropriately for bed mobility and back precautions. Pt only able to recall 2/3 back precautions and not remembering not to twist at this time. OT- Vision and Hearing OT- Hearing Assessment OT- Hearing Assessment WFL OT- Vision Assessment Visual Acuity Glasses All The Time Visual Attentiveness WF M7 OT- IP Mobility and Balance Start: 11/27/19 14:26 Freq: Status: Active Protocol: Document 11/27/19 14:00 [facility] (Rec: 11/27/19 14:59 [facility] [id number]) OT- Bed Mobility Assessment Rolling Type of Rolling Roll to Left Level of Assistance Moderate Assistance,2 Person Assistance Supine to Sit Supine to Sit Assist Maximum Assistance,2 Person Assistance,Bedrails Sit to Supine Sit to Supine Assist Total Assistance,2 Person Assistance Scooting Scooting to Edge of Bed Total Assistance,2 Person Assistance OT-Transfer Assessment Sit to and From Stand Sit to and from Stand Maximum Assistance,2 Person Assistance,Use of Upper Extremities Comments Mobility Comments Pt needing MAX 2-3 to stand from the bed to FWW, next time would benefit from use of bariatric FWW. Pt not able to stand all the way up and for less than one minute before having to sit down. Totals assist to help get pt back to bed x3 and for all positioning needs. OT- Gait Assessment Comments Gait Ability Comments Only able to stand at this time with assist x3. OT- Balance Assessment Sitting Balance and Reactions Static Sitting Balance Ability Poor Dynamic Sitting Balance Ability Poor Standing Balance and Reactions Static Standing Balance Ability Poor Comments Other Balance Tests/Deviations/Treatment Pt needing from JITENDRA to MAX A : to help sit at the edge of the bed. M8 OT- IP Objective Assessments Start: 11/27/19 14:26 Freq: Status: Active Protocol: Document 11/27/19 14:00 [facility] (Rec: 11/27/19 14:59 [facility] [id number]) OT Gross Range of Motion Upper Extremity Range of Motion Assessment Right Impaired OT Strength Upper Extremity Strength Assessment Right Impaired Comments Strength Comments RUE 3+/5 to 4-/5 from proximal to distal, LUE 4/5 OT-Muscle Tone Assessment Muscle Tone WNL Yes M9 OT- IP Assessment and Plan Start: 11/27/19 14:26 Freq: Status: Active Protocol: Document 11/27/19 14:00 [facility] (Rec: 11/27/19 14:59 [facility] [id number]) OT Summary Assessment and Plan Potential Rehabilitation Potential Good Analytic Complexity at Evaluation Low Summary OT Impairments Strength,Balance,Functional Cognition,Functional Mobility, Grooming,Dressing,Toileting, Bathing,Toilet Transfers, Shower Transfers,Activity Tolerance Progress Towards Goals Slow Progress due to Pain,Slow Progress due to Activity Tolerance,Slow Progress due to Cognition Assessment Summary Pt low complexity and main barrier are decreased balance, activity tolerance, pain and now needing MAX A X 2 to sit ot the edge of the bed. Per pt last time she had back surgery that she had to go to skilled rehab for about 2 months before able to go home with caregiver assist. Pt will benefit from skilled rehab prior to going home. Goals Grooming Goal Standby Assistance Dressing Goal Standby Assistance Toileting Goal Standby Assistance Bathing Goal Minimal Assistance Toilet Transfer Goal Standby Assistance Shower Transfer Goal Minimal Assistance Patient/Caregiver Education Goal Demonstrate Post-Op Precautions,Caregiver Independent Assisting Patient Days to Meet Goals 20 Frequency of Treatment Frequency Of Treatment Once a Day Treatment Plan OT Treatment Plan ADL Training,Functional Cognition Training,Functional Mobility,Patient/Family Education,Discharge Planning Other Treatment Recommendations and Next Go over LB dressing equipment Treatment Focus at edge of bed. Pt to be able to recall all back precautions. Discharge Recommendations OT Discharge Recommendations SNF Rehab Transportation Needs at Discharge Wheelchair/Cabulance
--- NOTE | 2019-11-27 14:10 | PT.IPTN ---
Current Diagnoses Other spondylosis with radiculopathy, lumbosacral region (11/26/19) Spinal stenosis, lumbar region without neurogenic claudication (11/26/19) Arthrodesis status (11/26/19) Surgery Performed Operation Date: 11/26/19 07:45 Actual Procedures p L2-3, L3-4 TLIF, L4-S1 HWR, L2-S1 PSF W/ Instrumentation - Kt Escalera MD Physical Therapy Treatment Note M2 PT-IP Current Condition Start: 11/27/19 08:53 Freq: NEEDED Status: Active Protocol: Document 11/27/19 10:15 [facility] (Rec: 11/27/19 12:30 AW [id number]) Physical Therapy Current Condition Current Condition Evaluation Date 11/27/19 Treatment Diagnosis L2-5 TLIF Onset Date 11/26/19 Precautions Lumbar Precautions Log Roll,No Twisting,Limit Bending,Lifting Restriction of 10 lbs,Gait Belt above Incisional Area Weight Bearing Status Weight Bearing Status Full Weight Bearing M3 PT-IP Subjective Start: 11/27/19 08:53 Freq: NEEDED Status: Active Protocol: Document 11/27/19 13:43 [facility] (Rec: 11/27/19 14:10 AW [id number]) Subjective Physical Therapy Visit Type Type Treatment Note Visit Start Time 13:15 Visit Stop Time 13:43 Total Visit Minutes 28 Notes Co-treat with OT Number of HOTEL SECURITY OFFICER Visits 0 Physical Therapy Visit Comments Patient Comments Pt recently medicated for pain , willing to work with therapy Therapy Pain Assessment Pain When Pain Assessed At Rest Pain Present Pain Present Pain Reported Location lower back Intensity 5 Scale Used Numeric (1 - 10) Pain Behaviors Facial Grimacing,Guarding, Wincing Pain Management Techniques Distraction,Re-positioning, Timing of Activity with Medications M4 PT-IP Mobility and Gait Start: 11/27/19 08:53 Freq: NEEDED Status: Active Protocol: Document 11/27/19 13:43 [facility] (Rec: 11/27/19 14:10 AW [id number]) PT-Bed Mobility Assessment Rolling Type of Rolling Log Rolling,Roll to Left Level of Assist Moderate Assistance,2 Person Assistance Supine to Sit Supine to Sit Maximum Assistance,2 Person Assistance,Bedrails Sit to Supine Sit to Supine Maximum Assistance,2 Person Assistance Scooting Scooting to Edge of Bed Maximum Assistance Scooting Up and Down in Bed Dependent PT-Transfer Assessment Sit to and From Stand Sit to and from Stand Maximum Assistance,2 Person Assistance,Use of Upper Extremities Equipment Transfer Assistive Device Gait Belt,Front Wheeled Walker Comments Mobility Comments Pt completed log roll to her left side mod A x 2 and supine to sit max A x 2. She was again unable to attain fully upright seated posture even while pulling on the bed cane with her right hand. She scooted toward EOB max A x 2. For standing, PT and OT called nursing for third person to assist. First max 2 attempt to stand was unsuccessful with pt unable to lean forward enough to accept weight on her feet. On second attempt, PT/ OT assisted on either side and COLLEGE ADMISSIONS COUNSELOR assisted by lifting draw sheet from behind so that pt could stand using FWW max A x 2-3 for ~1 minute. Pt complained of increasing weakness and requested to sit again. With max A x 2-3, she was minimally able to scoot her hips toward HOB. She was assisted back to supine max A x 2-3. PT/OT boosted her in the bed. She was able to roll side to side with use of bed tilt feature and mod A x 1 for draw sheet placement. Pt was left with OT for further assessment. Gait Assessment Comments Gait Comments Pt unsafe for ambulation at this time M5 PT-IP Objective Assessments Start: 11/27/19 08:53 Freq: NEEDED Status: Active Protocol: Document 11/27/19 10:15 [facility] (Rec: 11/27/19 12:30 AW [id number]) Orientation Orientation/Cognition Level of Alertness Alert Orientation Name,Day of Week,Place, Situation Language Function Ability Word Finding Difficulties Safety Awareness Understands Safety Issues Memory Description No Deficits Noted Gross Range of Motion Lower Extremity ROM Assessment Bilaterally Impaired Strength Lower Extremity Strength Assessment Bilaterally Impaired Hip 3-/5 Knee 3-/5 Ankle 3/5 Sensation Assessment Sensation Gross Sensation Right LE Impaired,Left LE Impaired Light Touch Impaired Proprioception (Position) Impaired Comments Sensation Comments Pt has diabetic neuropathy affecting sensation in bilateral plantar feet M6 PT-IP Treatment Start: 11/27/19 08:53 Freq: NEEDED Status: Active Protocol: Document 11/27/19 13:43 [facility] (Rec: 11/27/19 14:10 AW [id number]) Physical Therapy Treatment Education Education Provided Precautions,Safety Other Treatments Other Treatment Performed Pt was able to recall 2/3 spinal precautions (bending, twisting) independently and the third with a prompt. M7 PT-IP Assessment and Plan Start: 11/27/19 08:53 Freq: NEEDED Status: Active Protocol: Document 11/27/19 13:43 [facility] (Rec: 11/27/19 14:10 AW [id number]) PT Summary Assessment and Plan Summary Impairments Pain,ROM,Strength,Balance, Sensation,Cognition,Bed Mobility,Transfers,Gait, Activity Tolerance Progress Towards Goals Slow Progress due to Pain,Slow Progress due to Medical Issues,Slow Progress due to Activity Tolerance Assessment Summary With extra assist this session , Bushra was able to sit edge of bed but continued to require support to maintain upright position due to trunk weakness and posterior lean. She was able to stand with max A x 2-3 for ~1 minute. She will certainly require SNF rehab at discharge. Goals Bed Mobility Goal Minimal Assistance Transfer Goal Minimal Assistance,Front Wheeled Walker Gait Goal Minimal Assistance,Front Wheel Walker Gait Distance 50 Days to Meet Goals 10 Frequency of Treatment Frequency Of Treatment Twice a Day Treatment Plan Physical Therapy Treatment Plan Bed Mobility Training,Transfer Training,Gait Training, Therapeutic Exercise,Balance Retraining,Post Op Education, Discharge Planning,Hot or Cold Pack,Neuromuscular Re-ed, Coordination Retraining,Manual Therapy Other Recommendations and Next Treatment bed mobility with 2PA, attempt Focus to stand, attempt to transfer if able Recommendations To Nursing Amount of Assist Needed PT/OT Assist Only,Mechanical Lift Discharge Recommendations PT Discharge Recommendations SNF Rehab Transportation Needs at Discharge Wheelchair/Cabulance
--- NOTE | 2019-11-27 15:08 | CM.DANOTE ---
DCP Assessment: (EMR Reviewed): Patient is a 69 year old female admitted to the care of Dr. Escalera following extensive back surgery. PCP PHIL Cee. Met with patient while she was lying in bed resting and introduced self and role. Patient reports that she lives alone in a single floor apartment. Her daughter lives in the same complex and she also has a caregiver that assists her M-F 9am-4pm. Patient reports being dependent on both her caregiver and daughter for completing her ADLs and transportation. Patient has a FWW and a WC and reports she mainly uses the walker and home for short distances and the wheelchair when going out. I: Medicare/medicaid P: When asked about her plan for discharge patient reports she would like to attend a SNF. Her first choice is [facility] where she has stayed before and reports having a positive experience there. Her second choice is [facility]. CM will continue to work on SNF placement and plan of discharge and be available for discharge needs. SN Fatimah Del Real RN Discharge Planning/Care Management Discharge Assessment Start: 11/27/19 15:05 Freq: Status: Active Protocol: Document 11/27/19 15:05 (Rec: 11/27/19 15:08 [id number]) Discharge Planning Assessment Assigned Car Shagger Fatimah Riggs RN/SN Nasima Advance Directives? Yes Advance Directives on File Yes History Provided By Patient,Medical Record Has Patient been admitted in last 30 No days? Prior Living Arrangements Apartment/Condo Household Members none Type of transporation used prior to Relies on Others admit Comment Daughter and caregiver provide transportation. Independent with ADL's No: Has caregiver M-F 9am-4pm that assists with ADLs Is patient alert and oriented? Yes Needs Assistance With Bathing,Grooming,Meal Prep, Managing Medications,Home Chores / Shopping Caregiver for Another No DME Already Rented / Owned Wheelchair,FWW / Walker Comment uses 4ww Patient/Family Preference Correction Facility Comment pt is on Meals on Wheels program Barriers to Discharge No Comment no actual barriers noted: just needs good coordination of services. Pt is a very able historian of her [facility] Care care plan Discharge Plan Correction Facility Additional Comment Patient states she has notified [facility] worker of her discharge plans. If patient plan is home with home health will need: resume HH orders : Has signed face to face form been and followup with [facility] completed? If patient plan is SNF: Has PASSR been No: Awaiting acceptance from completed? facility. Medicare Choice List Provided Yes SNF/HH Preference [facility] Has Agency SNF been contacted No Comment Need to fax clinicals Whiteboard Updated in Patient Room with Yes name and ext. # of Car Shagger Review Status In Process Next Review Type Continued Stay Review Pre-Anesthesia Assessment Start: 10/29/19 09:32 Freq: Status: Active Protocol: Document 10/29/19 09:32 CAB (Rec: 10/29/19 10:48 CAB [id number]) Pre-Anesthesia Assessment Patient Information Reviewed Via Phone Assessment Assessment Completed With Patient Comment Done in Dec per pt, not available at time of PAC assess Primary Care Provider Erick Cee Seen Specialist in Last 12 Months Yes Specialist Seen Squirrel Worker,Oncologist, Orthopedist,Other Comment Neurology Primary Language Citizen Of [place] Preferred Language Citizen Of [place] Height 160.02 cm Weight 116.12 kg Body Mass Index (BMI) 45.3 Hearing Ability Hard of Hearing,Use of Hearing Aid Visual Assist Glasses Dentition Type Full- Upper Barriers to Learning Auditory,Memory Other Aids Yes: CPAP Hx Anesthesia Reactions No Hx Family Anesthesia Reaction Yes: My daughter has a hard time coming out of anesthesia Hx Malignant Hyperthermia No Hx Blood Transfusions Yes: r/t TLIF 2017 Hx Blood Transfusion Reaction No Anesthesia Review Requested No Cash Management Associate No alcohol intake never Smoking Status Never smoker Substance Use Type does not use Pain Present Pain Reported Musculoskeletal Symptoms Abnormal Gait,Back Pain, Difficulty Walking,Neck Pain, Numbness,Radiating Pain into Limb History of Falling (Recent or History of Yes ) Patient is completely paralyzed or No completely immobile Prosthesis or Orthotic Device Front Wheel Walker,Wheelchair Mental Status Oriented to own ability Is patient on oxygen? No Does patient have SMITH/SOB No Hx Sleep Apnea Yes CPAP/BIPAP use prescribed and used routinely Will Bring CPAP/BIPAP DOS Yes Currently Taking a Beta Laly No Hx Chest Pain No Hx SOB No Hx Syncope or Dizziness No Anti-Coagulant Therapy Yes: Plavix-advised to hold 7 days prior per PCP Has a Buffer Chrome No Cardiac Testing Echo 01/04/19 EF 60-65% Hx Pacemaker/ICD No Pacemaker Rep Required? No Cardiac Clearance Received Not Applicable Diet Type At Home Regular dysphagia No Urinary Catheter Present No Hx Urinary Self Catheterization No Diabetes Yes HgbA1C 6.5 Comment Last A1c result per pt. Patient No Lactating No Hx Drug Resistant Organism No Presence of External or Internal Medical Yes: CPAP Devices Have you traveled outside the [facility] States in the last 30 days? Marital Status Lives With none Prior Living Arrangements Apartment/Condo Number of Floors (Floors) One Floor Support System Caregiver,Child/Children Does the Patient Have Assistance After Yes Surgery Patient Discharge Plan Description Correction Facility/Rehab Comment Wants to go to [facility]-has been there before Feels Safe in Current Environment Yes Been Physically Hurt or Threatened By a No Person in Current Environment Do you have thoughts of harming yourself None or others? Are you currently considering suicide? No Do you have a plan to hurt yourself or No Plan others? Do You Have Any Spiritual Beliefs That No May Affect Your HC Choices? Do You Have Any Cultural Practices That No May Affect Your HC Choices? Comment Hoahaoism Who Can We Speak to About Patient's Care Family, friends Identifying Code for Release of Patient Declines to issue Information Health Care Proxy/Next of Kin Khalida Roberson (daughter) Health Care Proxy Emergency Contact Name Khalida Roberson (daughter) Emergency Contact Advance Directives? Yes Advance Directives on File Yes Power of Fire Hose Curer Yes Power of Fire Hose Curer Name ShacklefordsChayito szymanski (sisters) Power of Fire Hose Curer Phone Number Jerry: [phone] [place]: [phone] PAC Instructions Bring CPAP/BIPAP,Durable medical equipment,Medications to take/avoid,Nasal antibiotic ,No ETOH/petroleum product on skin DOS,NPO,Post-op transportation,Pre-surgical wash,Sturdy shoes/comfortable clothes,Do not bring valuables and remove jewelry
[2019-11-27] MEDS: HYDROMORPHONE 2 MG TABLET PO ×3 (15:20→23:52)
[2019-11-27] MEDS: SENNOSIDES 8.6 MG TABLET 17.2 MG PO (20:09)
[2019-11-28] VITALS (14 sets, daily range): BP systolic 117–135; BP diastolic 52–74; PULSE 72–112; RESP 14–22; TEMP 36.4–37.4; O2SAT 88–97
[2019-11-28] MEDS: SODIUM CHLORIDE 0.9% 1,000 ML 100 ML IV
[2019-11-28] MEDS: HYDROMORPHONE 2 MG TABLET PO ×3 (06:08→13:19)
--- NOTE | 2019-11-28 08:20 | OT.IP.TRT ---
Current Diagnoses Other spondylosis with radiculopathy, lumbosacral region (11/26/19) Spinal stenosis, lumbar region without neurogenic claudication (11/26/19) Arthrodesis status (11/26/19) Surgery Performed Operation Date: 11/26/19 07:45 Actual Procedures p L2-3, L3-4 TLIF, L4-S1 HWR, L2-S1 PSF W/ Instrumentation - Kt Escalera MD Occupational Therapy Treatment Note M2 OT-IP Current Condition Start: 11/27/19 14:26 Freq: Status: Active Protocol: Document 11/27/19 14:00 [facility] (Rec: 11/27/19 14:59 [facility] [id number]) Occupational Therapy Current Condition Current Condition Evaluation Date 11/27/19 Treatment Diagnosis S/p L2-3, L3-4TLIF , L4-5 HWR PSFw/ Instrumentation Diagnosis Onset Date 11/26/19 Post Operative Precautions Lumbar Precautions Log Roll,No Twisting,Limit Bending,Lifting Restriction of 10 lbs,Gait Belt above Incisional Area Weight Bearing Status Weight Bearing Status Weight Bear as Tolerated M3 OT- IP Subjective and Pain Start: 11/27/19 14:26 Freq: Status: Active Protocol: Document 11/28/19 10:56 [facility] (Rec: 11/28/19 11:04 [facility] [id number]) OT- Subjective Occupational Therapy Visit Type Type Treatment Note Visit Start Time 08:20 Visit Stop Time 09:01 Total Visit Minutes 41 Occupational Therapy Visit Comments Patient Comments Pt very tired but willing to try to get up. PT also in to see pt as pt needing extensive assist for bed mobility needs . Patient/Caregiver Goals To go to [facility] for rehab prior to going home. OT Pain Assessment Pain When Pain Assessed During Mobility Pain Present Pain Present Pain Reported Location lower back Intensity 7 Scale Used Numeric (1 - 10) M4 OT- IP ADL's Start: 11/27/19 14:26 Freq: Status: Active Protocol: Document 11/28/19 10:56 [facility] (Rec: 11/28/19 11:04 [facility] [id number]) OT HMF-Dvln-Gvcmhaq General Evaluation Self-Feeding Ability Independent OT ADL-Grooming General Evaluation Grooming Ability Standby Assistance Areas Needing Assistance Retrieving/Set-up of Grooming Items Comments OT Grooming Comments Able to do while sitting with the HOB up. OT ADL-Oral Care General Eval Oral Care Ability Independent OT ADL-Dressing General Eval Lower Body Dressing Ability Total Assistance Areas Needing Assistance Socks OT ADL-Toileting General Evaluation Toileting Ability Total Assistance Comments OT Toileting Comments Jesus in. OT ADL-Bathing Comments OT Bathing Comments NOt at this time. M5 OT- IP IADL's Start: 11/27/19 14:26 Freq: Status: Active Protocol: Document 11/27/19 14:00 [facility] (Rec: 11/27/19 14:59 [facility] [id number]) OT-Instrumental Activities of Daily Living Home Safety Awareness Awareness of Need for Assistance at Home Good Awareness Merchandising Specialist Merchandising Specialist Caregiver Provides Assist M6 OT- IP Functional Cognition Start: 11/27/19 14:26 Freq: Status: Active Protocol: Document 11/28/19 10:56 [facility] (Rec: 11/28/19 11:04 [facility] [id number]) Cognitive Factors Limiting Selfcare Function Cognitive Ability Level of Alertness Alert Patient Orientation Name,Place,Situation Attention Span Ability Capable of Focused Attention, Capable of Sustained Attention Ability to Follow Commands Able to Follow One Step Commands Memory Description Short Term Impaired Safety Awareness Decreased Recall of Precautions Cognitive Comments Cognitive Assessment Comments Today pt only able to recall 1 /3 back precautions. Pt having increased pain and having more difficuulty to concentrate and follow commands. M7 OT- IP Mobility and Balance Start: 11/27/19 14:26 Freq: Status: Active Protocol: Document 11/28/19 10:56 [facility] (Rec: 11/28/19 11:04 [facility] [id number]) OT- Bed Mobility Assessment Rolling Type of Rolling Roll to Left Level of Assistance Maximum Assistance,2 Person Assistance Supine to Sit Supine to Sit Assist Maximum Assistance,2 Person Assistance Sit to Supine Sit to Supine Assist Total Assistance,2 Person Assistance Scooting Scooting to Edge of Bed Total Assistance,2 Person Assistance OT-Transfer Assessment Comments Mobility Comments Pt too tired to try to stand today. MAX A X3 to get from supine to sit and then from sit to supine. Pt's BP decreased while sitting at the edge of the bed from supine 122/64 to 88/52. OT- Gait Assessment Comments Gait Ability Comments Just able to tolerate sitting at the edge of the bed today. OT- Balance Assessment Sitting Balance and Reactions Static Sitting Balance Ability Poor Dynamic Sitting Balance Ability Poor Comments Other Balance Tests/Deviations/Treatment Pt needing MAXA x1 for sitting : upright at edge of bed. M8 OT- IP Objective Assessments Start: 11/27/19 14:26 Freq: Status: Active Protocol: Document 11/27/19 14:00 [facility] (Rec: 11/27/19 14:59 [facility] [id number]) OT Gross Range of Motion Upper Extremity Range of Motion Assessment Right Impaired OT Strength Upper Extremity Strength Assessment Right Impaired Comments Strength Comments RUE 3+/5 to 4-/5 from proximal to distal, LUE 4/5 OT-Muscle Tone Assessment Muscle Tone WNL Yes M9 OT- IP Assessment and Plan Start: 11/27/19 14:26 Freq: Status: Active Protocol: Document 11/28/19 10:56 [facility] (Rec: 11/28/19 11:04 [facility] [id number]) OT Summary Assessment and Plan Potential Rehabilitation Potential Fair Analytic Complexity at Evaluation Low Summary OT Impairments Strength,Balance,Functional Cognition,Functional Mobility, Grooming,Dressing,Toileting, Bathing,Toilet Transfers, Shower Transfers,Activity Tolerance Progress Towards Goals Slow Progress due to Pain,Slow Progress due to Activity Tolerance,Slow Progress due to Cognition Assessment Summary Today noted decreased pain control and not able to tolerate as much today in addition to low BP while sitting upright. Pt will still benefit from skilled rehab when medically stable. Goals Grooming Goal Standby Assistance Dressing Goal Standby Assistance Toileting Goal Standby Assistance Bathing Goal Minimal Assistance Toilet Transfer Goal Standby Assistance Shower Transfer Goal Minimal Assistance Patient/Caregiver Education Goal Demonstrate Post-Op Precautions,Caregiver Independent Assisting Patient Days to Meet Goals 20 Frequency of Treatment Frequency Of Treatment Once a Day Treatment Plan OT Treatment Plan ADL Training,Functional Cognition Training,Functional Mobility,Patient/Family Education,Discharge Planning Other Treatment Recommendations and Next Go over LB dressing equipment Treatment Focus at edge of bed. Pt to be able to recall all back precautions. Discharge Recommendations OT Discharge Recommendations SNF Rehab Transportation Needs at Discharge Wheelchair/Cabulance,Stretcher /Ambulance
--- NOTE | 2019-11-28 08:21 | P.PN_ITS ---
Subjective Subjective Date Patient Seen: 11/28/19 Time Patient Seen: 08:21 Interval history: Patient's pain is moderate to severe depending on activity level. Denies fever chills. No nausea vomiting. Exam Vital Signs (past 8 hours): - 11/28/19 02:53 11/28/19 03:00 Temperature 98.0 F Pulse Rate 111 H Respiratory Rate 14 Blood Pressure 117/60 Pulse Oximetry 97 95 Oxygen Delivery Method CPAP Oxygen Flow Rate 1 Output Total Balance Urine Output (Average ml/kg/hr) 3000.1 / 3000.1 ml 3088.333 / 3088.333 ml 101.667 / 101.667 ml 400 / 400 ml 670 / 670 ml 500 / 500 ml Narrative Exam Narrative: Morbidly obese female resting comfortably in bed in no apparent distress. Dressing saturated with SS drainage. Dressing will be changed out today. Motor functions intact bilateral lower extremities. Sensation grossly intact to light touch bilateral lower extremities. Objective Labs Result Diagrams: 11/27/19 08:10 11/27/19 08:10 Labs: Laboratory Results - last 24 hr 11/27/19 11/27/19 08:10 08:10 WBC 11.5 H RBC 4.44 Hgb 13.2 Hct 40.2 MCV 90.5 MCH 29.8 MCHC 32.9 RDW 14.7 Plt Count 270 Sodium 137 Potassium 4.5 Chloride 105 Carbon Dioxide 23 BUN 22 H Creatinine 1.60 H Estimated GFR 32.2 L BUN/Creatinine Ratio 13.8 Glucose 145 H Calcium 8.3 L Total Bilirubin 0.4 AST 387 H ALT 49 H Alkaline Phosphatase 54 Total Protein 6.6 Albumin 3.2 L Globulin 3.4 Albumin/Globulin Ratio 0.9 L Assessment & Plan Post-op Postoperative Procedures: Procedures Operation Date: 11/26/19 07:45 Actual Procedures Side Surgeon p L2-3, L3-4 TLIF, L4-S1 HWR, L2-S1 PSF W/ Instrumentation Kt Escalera MD Assessment & Plan narrative: Patient with PMH significant for morbid obesity, CVA, DM, ABIOLA, and history of SHARON last year who is POD 2 s/p L2-S1 TLIF. Poor pain control. After trial of consistent Oxycodone 10mg dosing, patient cont inued to require IV Dilaudid. PO Dilaudid 2mg moderate 4mg severe pain added. Avoid IV dosing. Poor urinary output. CBC/CMP ordered showing Cr of 1.6, preop was 0.9. Discussed with hospitalist Dr. Price who recommends to continue IV fluids, monitor output and trend Cr. He does not recommend formal consult at this time unless output or Cr do not improve. Daily CMP ordered. Labs still pending this a.m. Urine output improved over the last two shifts. She is to continue to work with PT/OT. Currently 2-3 person assist. Poor baseline mobility. She has required extended stay at SNF rehab after previous procedures. Anticipate discharge to SNF once deemed medically stable over the next 1-2 days. Quality VTE Deep Vein Thrombosis/Pulmonary Embolism Present on Admission: No
--- NOTE | 2019-11-28 08:50 | PT.IPTN ---
Current Diagnoses Other spondylosis with radiculopathy, lumbosacral region (11/26/19) Spinal stenosis, lumbar region without neurogenic claudication (11/26/19) Arthrodesis status (11/26/19) Surgery Performed Operation Date: 11/26/19 07:45 Actual Procedures p L2-3, L3-4 TLIF, L4-S1 HWR, L2-S1 PSF W/ Instrumentation - Kt Escalera MD Physical Therapy Treatment Note M2 PT-IP Current Condition Start: 11/27/19 08:53 Freq: NEEDED Status: Active Protocol: Document 11/27/19 10:15 AW (Rec: 11/27/19 12:30 AW [id number]) Physical Therapy Current Condition Current Condition Evaluation Date 11/27/19 Treatment Diagnosis L2-5 TLIF Onset Date 11/26/19 Precautions Lumbar Precautions Log Roll,No Twisting,Limit Bending,Lifting Restriction of 10 lbs,Gait Belt above Incisional Area Weight Bearing Status Weight Bearing Status Full Weight Bearing M3 PT-IP Subjective Start: 11/27/19 08:53 Freq: NEEDED Status: Active Protocol: Document 11/28/19 08:20 [facility] (Rec: 11/28/19 11:13 EG [id number]) Subjective Physical Therapy Visit Type Type Treatment Note Visit Start Time 08:20 Visit Stop Time 08:50 Total Visit Minutes 30 Notes Co-treat with OT Number of DELIVERY MAN Visits 0 Physical Therapy Visit Comments Patient Comments Patient had pain medication earlier this morning and was agreeable to PT to work on sitting up and possibly standing. Patient reported a 6 /10 pain in the back while supine in bed with HOB raised. Therapy Pain Assessment Pain When Pain Assessed At Rest Pain Present Pain Present Pain Reported Location lower back Intensity 6 Scale Used Numeric (1 - 10) Pain Behaviors Facial Grimacing,Guarding, Moaning,Wincing Pain Management Techniques Distraction,Re-positioning, Timing of Activity with Medications M4 PT-IP Mobility and Gait Start: 11/27/19 08:53 Freq: NEEDED Status: Active Protocol: Document 11/28/19 08:20 [facility] (Rec: 11/28/19 11:13 EG [id number]) PT-Bed Mobility Assessment Rolling Type of Rolling Log Rolling,Roll to Left Level of Assist Moderate Assistance,2 Person Assistance Supine to Sit Supine to Sit Maximum Assistance,2 Person Assistance,Bedrails Sit to Supine Sit to Supine Maximum Assistance,2 Person Assistance Scooting Scooting to Edge of Bed Maximum Assistance Scooting Up and Down in Bed Dependent PT-Transfer Assessment Comments Mobility Comments Patient was supine in bed with head of bed elevated with QUALITY ASSURANCE ENGINEER in room checking vitals. Oxygen was <88SaO2 on room air so 1L of O2 was used during exercise. Patient maintained > 88 SaO2 throughout treatment. Patient was agreeable to perform log roll. Max A with 3 -person assist was used to help with log roll with patient needing help to bend knees and roll to the L. Patient was able to initiate roll but could not complete without assistance. Patient then moved from side-lying to sit with max A lifting legs off bed and moving to upright position. Patient was max A sitting upright. BP initially decreased to 89/52 when sitting but was taken again after 2 minutes and was within normal limits. Patient did not want to stand at this point due to increased fatigue and pain. Patient needed to lie back down after 6 minutes of sitting with max support. Patient needed max A scooting hips back on to bed to acquire appropriate amount of room to perform log roll back down to bed. Moving from sit to supine required max Ax3. To perform rolls side to side to move yunior appropriately, patient needed assistance from bed tilted side to side to assist with roll. Once supine the head of bed was elevated and patient was left with OT. Patient reported a 7/10 pain while seated. Gait Assessment Comments Gait Comments Pt unsafe and unable for ambulation at this time PT-Balance Assessment Sitting Balance and Reactions Static Sitting Balance Ability Poor Dynamic Sitting Balance Ability Poor M5 PT-IP Objective Assessments Start: 11/27/19 08:53 Freq: NEEDED Status: Active Protocol: Document 11/27/19 10:15 AW (Rec: 11/27/19 12:30 AW [id number]) Orientation Orientation/Cognition Level of Alertness Alert Orientation Name,Day of Week,Place, Situation Language Function Ability Word Finding Difficulties Safety Awareness Understands Safety Issues Memory Description No Deficits Noted Gross Range of Motion Lower Extremity ROM Assessment Bilaterally Impaired Strength Lower Extremity Strength Assessment Bilaterally Impaired Hip 3-/5 Knee 3-/5 Ankle 3/5 Sensation Assessment Sensation Gross Sensation Right LE Impaired,Left LE Impaired Light Touch Impaired Proprioception (Position) Impaired Comments Sensation Comments Pt has diabetic neuropathy affecting sensation in bilateral plantar feet M6 PT-IP Treatment Start: 11/27/19 08:53 Freq: NEEDED Status: Active Protocol: Document 11/28/19 08:20 EG (Rec: 11/28/19 11:13 EG [id number]) Physical Therapy Treatment Education Education Provided Precautions,Safety Other Treatments Other Treatment Performed Patient unable to recall 2/3 spinal precautions (lifting/ twisting) but did recall bending. She also said stretching but needed assistance remembering others. M7 PT-IP Assessment and Plan Start: 11/27/19 08:53 Freq: NEEDED Status: Active Protocol: Document 11/28/19 08:20 EG (Rec: 11/28/19 11:13 EG [id number]) PT Summary Assessment and Plan Summary Impairments Pain,ROM,Strength,Balance, Sensation,Cognition,Bed Mobility,Transfers,Gait, Activity Tolerance Progress Towards Goals Slow Progress due to Pain,Slow Progress due to Medical Issues,Slow Progress due to Activity Tolerance Assessment Summary Patient was in significant amount of pain at beginning of session (03/05) but was still willing to participate in therapy. Patient is still in need of Max Ax3 with all transfers and cannot sit safely without support. Patient's sitting endurance is low and is not safe to stand at this time. Patient will still require SNF at discharge to continue to work on LE strengthening, endurance, and sitting and standing balance. Goals Bed Mobility Goal Minimal Assistance Transfer Goal Minimal Assistance,Front Wheeled Walker Gait Goal Minimal Assistance,Front Wheel Walker Gait Distance 50 Days to Meet Goals 10 Frequency of Treatment Frequency Of Treatment Twice a Day Treatment Plan Physical Therapy Treatment Plan Bed Mobility Training,Transfer Training,Gait Training, Therapeutic Exercise,Balance Retraining,Post Op Education, Discharge Planning,Hot or Cold Pack,Neuromuscular Re-ed, Coordination Retraining,Manual Therapy Other Recommendations and Next Treatment bed mobility with 3PA, attempt Focus to stand, attempt to transfer if able Recommendations To Nursing Amount of Assist Needed PT/OT Assist Only,Mechanical Lift Discharge Recommendations PT Discharge Recommendations SNF Rehab Transportation Needs at Discharge Wheelchair/Cabulance Alyssa Lee DPT, supervised all treatment performed by, and agreed with the plan of care, as performed by DARSHANA Bryant.
[2019-11-28] MEDS: METFORMIN HCL 500 MG TABLET 1000 MG PO ×2 (09:00→20:46)
[2019-11-28] MEDS: buPROPion XL 150 MG TAB 300 MG PO (09:00)
[2019-11-28] MEDS: DOCUSATE 100 MG CAPSULE PO ×2 (09:01→20:47)
[2019-11-28] MEDS: VERAPAMIL 80 MG TABLET PO ×2 (09:01→20:48)
[2019-11-28] MEDS: hydrOXYzine pamoate 25 MG CAPSULE PO ×2 (09:05→13:19)
--- NOTE | 2019-11-28 11:21 | PC.NURSE ---
Addendum entered by Alexsandra Ybarra R.N. 11/28/19 15:33: This RN did not change saturated drsg during shift; drsg materials in room Original Note: Pt reports moderate to severe pain with PO Dilaudid and Vistiril; 2 max asst to reposition in bed; drsg to back saturated; c/m/s to BLLEs positive, ppp; HRR; O2 1 L=93%,; LS diminished, pt encouraged to use IS with 750 output and 1000 goal; Jesus draining clear yellow to gravity; IV d/c due to leaking; IV starts attempted by 3 RNs including this RN; notified at [id number]
[2019-11-28 11:37] LABS: Alanine Aminotransferase 30 IU/L (<35); Albumin 2.9 g/dL (3.5-5.0); Albumin Globulin Ratio 0.9 (1.0-2.8); Alkaline Phosphatase 57 U/L (38-126); Aspartate Aminotransferase 280 IU/L (14-36); BUN Creatinine Ratio 16.7 (6-22); Bilirubin Total 0.4 mg/dL (0.2-1.3); Blood Urea Nitrogen 25 mg/dL (7-17); Calcium 8.2 mg/dL (8.4-10.2); Carbon Dioxide 23 mmol/L (22-32); Chloride 105 mmol/L (98-107); Estimated Glomerular Filt Rate 34.6 mL/min (>60); Globulin 3.2 g/dL (1.7-4.1); Glucose 118 mg/dL (80-110); HEMOLYSIS < 15 (0-50); Potassium 4.3 mmol/L (3.4-5.1); Sodium 136 mmol/L (137-145); Total Protein 6.1 g/dL (6.3-8.2)
--- NOTE | 2019-11-28 14:20 | PT.IPTN ---
Addendum entered and electronically signed by Aydee Og, OLMAN 11/28/19 14:58: Vitals taken end of tx: SaO2 95 % on 2 L supplimental O2 (+SOB) cued for slow pursed lip breathing, BP 136/72 HR 102 bpm. Difficulty getting reading of O2. Original Note: Current Diagnoses Other spondylosis with radiculopathy, lumbosacral region (11/26/19) Spinal stenosis, lumbar region without neurogenic claudication (11/26/19) Arthrodesis status (11/26/19) Surgery Performed Operation Date: 11/26/19 07:45 Actual Procedures p L2-3, L3-4 TLIF, L4-S1 HWR, L2-S1 PSF W/ Instrumentation - Kt Escalera MD Physical Therapy Treatment Note M2 PT-IP Current Condition Start: 11/27/19 08:53 Freq: NEEDED Status: Active Protocol: Document 11/27/19 10:15 AW (Rec: 11/27/19 12:30 AW [id number]) Physical Therapy Current Condition Current Condition Evaluation Date 11/27/19 Treatment Diagnosis L2-5 TLIF Onset Date 11/26/19 Precautions Lumbar Precautions Log Roll,No Twisting,Limit Bending,Lifting Restriction of 10 lbs,Gait Belt above Incisional Area Weight Bearing Status Weight Bearing Status Full Weight Bearing M3 PT-IP Subjective Start: 11/27/19 08:53 Freq: NEEDED Status: Active Protocol: Document 11/28/19 14:22 SP (Rec: 11/28/19 14:58 SP [id number]) Subjective Physical Therapy Visit Type Type Treatment Note Visit Start Time 13:44 Visit Stop Time 14:20 Total Visit Minutes 36 Number of MARKETING INFORMATION COORDINATOR Visits 1 Physical Therapy Visit Comments Patient Comments Patient had pain medication approx 20 min prior to PT treatment this afternoon. Therapy Pain Assessment Pain When Pain Assessed At Rest Pain Present Pain Present Pain Reported Location lower back Intensity 8 Scale Used 8/10 at rest, 7/10 with mobility Pain Behaviors Calling Out,Facial Grimacing, Holding Area,Moaning,Wincing Pain Management Techniques Distraction,Re-positioning, Timing of Activity with Medications M4 PT-IP Mobility and Gait Start: 11/27/19 08:53 Freq: NEEDED Status: Active Protocol: Document 11/28/19 14:22 SP (Rec: 11/28/19 14:58 SP [id number]) PT-Bed Mobility Assessment Rolling Type of Rolling Bilateral Level of Assist Maximal Assistance,2 Person Assistance Supine to Sit Supine to Sit Maximum Assistance,1 Person Assistance,2 Person Assistance ,Bedrails Sit to Supine Sit to Supine Maximum Assistance,1 Person Assistance,2 Person Assistance ,Bedrails Scooting Scooting to Edge of Bed Maximum Assistance Scooting Up and Down in Bed Dependent PT-Transfer Assessment Comments Mobility Comments Pt was supine in bed with HOB elevated when arrived. Completed Log roll to L with assist of yunior pad and verbal and tactile directioning for bending R knee and reaching RUE across body while provided Max A of 2-3 persons support to complete and maintain L sidelying then provided support of 1 person Max A to assist BLE to EOB and Max 2 person to assist transition trunk L sidelying to sitting, Max A of 2 person to scoot to EOB and maintain sitting postion with BUE support on bed, was unable to scoot forward enough for BLE to be supported on floor. Pt tolerated sitting approx 4 min before had to lay back down. Max A of 1, Mod A of 1 for trunk support sitting to L sidelying and Max A of 1 for BLE support back onto bed into . Pt used BUEon bed rail for self support to maintain sidelying, Mod A of 1 to R log roll onto her back. Pt required Max A of 2 person to log roll R and L to repostion yunior pad and dependent to scoot up in bed. Pt reported 7 /10 LBP during mobility. Gait Assessment Comments Gait Comments Pt unsafe to ambulate at this time, unable to scoot completely to EOB to attempt stand. PT-Balance Assessment Sitting Balance and Reactions Static Sitting Balance Ability Poor Dynamic Sitting Balance Ability Poor M5 PT-IP Objective Assessments Start: 11/27/19 08:53 Freq: NEEDED Status: Active Protocol: Document 11/27/19 10:15 AW (Rec: 11/27/19 12:30 AW [id number]) Orientation Orientation/Cognition Level of Alertness Alert Orientation Name,Day of Week,Place, Situation Language Function Ability Word Finding Difficulties Safety Awareness Understands Safety Issues Memory Description No Deficits Noted Gross Range of Motion Lower Extremity ROM Assessment Bilaterally Impaired Strength Lower Extremity Strength Assessment Bilaterally Impaired Hip 3-/5 Knee 3-/5 Ankle 3/5 Sensation Assessment Sensation Gross Sensation Right LE Impaired,Left LE Impaired Light Touch Impaired Proprioception (Position) Impaired Comments Sensation Comments Pt has diabetic neuropathy affecting sensation in bilateral plantar feet M6 PT-IP Treatment Start: 11/27/19 08:53 Freq: NEEDED Status: Active Protocol: Document 11/28/19 14:22 SP (Rec: 11/28/19 14:58 SP [id number]) Physical Therapy Treatment Exercises Exercises Ankle Pumps,Gluteal Sets,Quad Sets,Heel Slides,Supine Hip Abduction Knee ROM Measurement 50 deg knee flexion, poor - MMT quad set BLE. Education Education Provided Precautions,Safety Other Treatments Other Treatment Performed Pt unable to recall 0/3 spinal precautions, but can appropriately head shake yes or no when therapists named precautions if safe to perform each. Pt required Max A to complete heel slides, and min A for LE abd. M7 PT-IP Assessment and Plan Start: 11/27/19 08:53 Freq: NEEDED Status: Active Protocol: Document 11/28/19 14:22 SP (Rec: 11/28/19 14:58 SP [id number]) PT Summary Assessment and Plan Potential Rehabilitation Potential Fair Status of Condition at Evaluation Evolving Summary Impairments Pain,ROM,Strength,Balance, Sensation,Cognition,Bed Mobility,Transfers,Gait, Activity Tolerance Progress Towards Goals Slow Progress due to Pain,Slow Progress due to Activity Tolerance,Slow Progress - Other Assessment Summary Patient was in significant amount of pain at beginning of session (7-8 pre medicated ) but was still willing to participate in therapy. Patient is still in need of Max Ax3 with all transfers and cannot sit safely without support. Patient's sitting endurance is low and is not safe to stand at this time. Patient will still require SNF at discharge to continue to work on LE strengthening, endurance, and sitting and standing balance. Goals Bed Mobility Goal Minimal Assistance Transfer Goal Minimal Assistance,Front Wheeled Walker Gait Goal Minimal Assistance,Front Wheel Walker Gait Distance 50 Days to Meet Goals 10 Frequency of Treatment Frequency Of Treatment Twice a Day Treatment Plan Physical Therapy Treatment Plan Bed Mobility Training,Transfer Training,Gait Training, Therapeutic Exercise,Balance Retraining,Post Op Education, Discharge Planning,Hot or Cold Pack,Neuromuscular Re-ed, Coordination Retraining,Manual Therapy Other Recommendations and Next Treatment bed mobility with 3PA, attempt Focus to stand, attempt to transfer if able Recommendations To Nursing Amount of Assist Needed PT/OT Assist Only,Mechanical Lift Discharge Recommendations PT Discharge Recommendations SNF Rehab Transportation Needs at Discharge Wheelchair/Cabulance
--- NOTE | 2019-11-28 14:56 | CM.DPC ---
Addendum entered by KRISTI Caro 11/29/19 14:49: According to Ortho PHIL Zelaya, pt will not be discharging today but DC is expected tomorrow 3.6.20, Catia at [facility] aware Original Note: DCP SNF Planning: Per PT, pt has required a fair amount of assist, between 2-3PA and still strongly recommending SNF. Pt's preference for SNF has been 1) [facility] 2) [facility] but no referrals made yet. SW faxed clinicals to [facility] and called requesting review and called [facility] asking for review. [facility] can accept when pt stable for d/c, which could be tomorrow possibly. Per [facility], still reviewing and they are anticipating they may be too full. PASERIS completed in anticipation of SNF tomorrow. Plan: SW to follow for likely pt d/c to [facility] tomorrow if stable and SW to update pt and Dtr as unfortunately was not able to update pt bedside today. KRISTI Muñoz
--- NOTE | 2019-11-28 17:59 | PC.NURSE ---
Pt resting quietly at this time. . Denies discomfort. HL LFA intact/patent. Lungs diminished, SpO2 95% on 2LO2 Call light w/in reach, bed alarm on for pt safety.
[2019-11-28] MEDS: SENNOSIDES 8.6 MG TABLET 17.2 MG PO (20:46)
[2019-11-28] MEDS: TRAZODONE 50 MG TABLET 150 MG PO (20:47)
[2019-11-29] VITALS (9 sets, daily range): BP systolic 134–150; BP diastolic 59–76; PULSE 95–105; RESP 16–22; TEMP 36.2–37.7; O2SAT 89–98
--- NOTE | 2019-11-29 00:19 | PC.NURSE ---
Shift note: Patient drowsy at time of assessment, difficulty staying awake to answer orientation questions. Denies passing flatus, no abdominal pain on palpation but does have a pain response to pannus being moved. Moisture under breasts and groin folds, redness that is blanchable, put folded pillow cases under bilateral breasts and bilateral groin folds. Dressing to back is coversite that is CDI. Bilateral breath sounds in bases diminished, on 1L O2 by NC. Denies pain at time of assessment, on q2 turns to prevent skin breakdown. Jesus patent and draining. Call light in reach, bed alarm on and functioning.
[2019-11-29] MEDS: HYDROMORPHONE 2 MG TABLET PO ×4 (03:01→21:07)
[2019-11-29 06:46] LABS: Alanine Aminotransferase 27 IU/L (<35); Albumin 3.1 g/dL (3.5-5.0); Albumin Globulin Ratio 0.9 (1.0-2.8); Alkaline Phosphatase 64 U/L (38-126); Aspartate Aminotransferase 194 IU/L (14-36); Bilirubin Total 0.5 mg/dL (0.2-1.3); Blood Urea Nitrogen 17 mg/dL (7-17); Calcium 8.7 mg/dL (8.4-10.2); Carbon Dioxide 28 mmol/L (22-32); Chloride 103 mmol/L (98-107); Estimated Glomerular Filt Rate 55.3 mL/min (>60); Globulin 3.3 g/dL (1.7-4.1); Glucose 106 mg/dL (80-110); HEMOLYSIS < 15 (0-50); Potassium 4.3 mmol/L (3.4-5.1); Sodium 138 mmol/L (137-145); Total Protein 6.4 g/dL (6.3-8.2)
--- NOTE | 2019-11-29 07:49 | P.PN_ITS ---
Subjective Subjective Date Patient Seen: 11/29/19 Time Patient Seen: 07:49 Interval history: POD #3 s/p lumbar fusion with Dr. Escalera. Patient reports feeling confused this morning. She knows that she is at [facility], but is not aware of the date today. With prompting she is able to answer questions. She is very anxious and in pain when moving. She has been refusing to let the nurses move her. She has had a stroke in the past which could be resulting in her confusion and increased anxiety with her pain response. Her creatinine has stabilized to her normal values prior to surgery. Will continue to monitor. She has been ranging from 84-94% on 1 L O2. Exam Vital Signs (past 8 hours): - 11/29/19 06:00 Temperature 98.9 F Pulse Rate 105 H Respiratory Rate 16 Blood Pressure 150/76 H Pulse Oximetry 93 Oxygen Delivery Method Nasal Cannula Oxygen Flow Rate 1 Narrative Exam Narrative: Patient lying in bed in no acute distress. She is confused. Jesus catheter in place. 1 L O2 nasal cannula. She is able to actively dorsiflex and plantar flex. SCDs on and functioning. Calves are soft, compressible, and nontender bilaterally. DP pulses symmetrical. Objective Labs Result Diagrams: 11/27/19 08:10 11/29/19 06:25 Labs: Laboratory Results - last 24 hr 11/28/19 11/29/19 06:27 06:25 Sodium 136 L 138 Potassium 4.3 4.3 Chloride 105 103 Carbon Dioxide 23 28 BUN 25 H 17 Creatinine 1.50 H 1.00 Estimated GFR 34.6 L 55.3 L BUN/Creatinine Ratio 16.7 17.0 Glucose 118 H 106 Calcium 8.2 L 8.7 Total Bilirubin 0.4 0.5 AST 280 H 194 H ALT 30 27 Alkaline Phosphatase 57 64 Total Protein 6.1 L 6.4 Albumin 2.9 L 3.1 L Globulin 3.2 3.3 Albumin/Globulin Ratio 0.9 L 0.9 L Assessment & Plan Post-op Postoperative Procedures: Procedures Operation Date: 11/26/19 07:45 Actual Procedures Side Surgeon p L2-3, L3-4 TLIF, L4-S1 HWR, L2-S1 PSF W/ Instrumentation Kt Escalera MD Patient needs to continue to mobilize with physical therapy every day. No excessive bending, lifting, or twisting. Discussed with Dr. Escalera regarding VTE prophylaxis. She did have a dural tear during surgery. She does have an increased risk of VTE due to having a stroke in the past. At this time we will do ASA 81 mg daily. Will give 1 time steroid dose to decrease inflammation. Cayden rangel is diabetic and will monitor blood sugars closely. Sliding-scale ordered. Glucose 106 today. Patient not medically stable at this time. Plan to discharge to SNF once medically stable. Quality VTE Deep Vein Thrombosis/Pulmonary Embolism Present on Admission: No
[2019-11-29] MEDS: VERAPAMIL 80 MG TABLET PO ×2 (09:31→20:41)
[2019-11-29] MEDS: buPROPion XL 150 MG TAB 300 MG PO (09:31)
[2019-11-29] MEDS: DOCUSATE 100 MG CAPSULE PO ×2 (09:31→20:41)
[2019-11-29] MEDS: METFORMIN HCL 500 MG TABLET 1000 MG PO ×2 (09:31→20:41)
--- NOTE | 2019-11-29 10:39 | OT.IP.TRT ---
Current Diagnoses Other spondylosis with radiculopathy, lumbosacral region (11/26/19) Spinal stenosis, lumbar region without neurogenic claudication (11/26/19) Arthrodesis status (11/26/19) Surgery Performed Operation Date: 11/26/19 07:45 Actual Procedures p L2-3, L3-4 TLIF, L4-S1 HWR, L2-S1 PSF W/ Instrumentation - Kt Escalera MD Occupational Therapy Treatment Note M2 OT-IP Current Condition Start: 11/27/19 14:26 Freq: Status: Active Protocol: Document 11/27/19 14:00 [facility] (Rec: 11/27/19 14:59 [facility] [id number]) Occupational Therapy Current Condition Current Condition Evaluation Date 11/27/19 Treatment Diagnosis S/p L2-3, L3-4TLIF , L4-5 HWR PSF w/ Instrumentation Diagnosis Onset Date 11/26/19 Post Operative Precautions Lumbar Precautions Log Roll,No Twisting,Limit Bending,Lifting Restriction of 10 lbs,Gait Belt above Incisional Area Weight Bearing Status Weight Bearing Status Weight Bear as Tolerated M3 OT- IP Subjective and Pain Start: 11/27/19 14:26 Freq: Status: Active Protocol: Document 11/29/19 10:39 PJM (Rec: 11/29/19 16:42 PJM [id number]) OT- Subjective Occupational Therapy Visit Type Type Treatment Note Visit Start Time 10:09 Visit Stop Time 10:39 Total Visit Minutes 30 Notes Cotx with P.T. as 2 skilled assist needed for mobility Occupational Therapy Visit Comments Patient Comments I can't do this, I can't do this. Patient/Caregiver Goals to have less back pain and go home OT Pain Assessment Pain When Pain Assessed During Mobility Pain Present Pain Present Pain Reported Location lower back Intensity 10 Scale Used Numeric (1 - 10) Description Acute,Sharp,Shooting Pain Behaviors Calling Out,Facial Grimacing, Guarding,Moaning,Restlessness, Wincing Management Techniques Distraction,Modification of Treatment,Re-positioning, Timing of Activity with Medications M5 OT- IP IADL's Start: 11/27/19 14:26 Freq: Status: Active Protocol: Document 11/27/19 14:00 [facility] (Rec: 11/27/19 14:59 [facility] [id number]) OT-Instrumental Activities of Daily Living Home Safety Awareness Awareness of Need for Assistance at Home Good Awareness Control Technician Control Technician Caregiver Provides Assist M7 OT- IP Mobility and Balance Start: 11/27/19 14:26 Freq: Status: Active Protocol: Document 11/29/19 10:39 PJM (Rec: 11/29/19 16:42 PJ [id number]) OT-Transfer Assessment Comments Mobility Comments Unable to get pt to participate in rolling as she was actively resisting movement due to pain by pushing on B bedrails. Unable to raise HOB greater than 40 degrees due to pt's pain level. Pt unable to sit on edge of bed. OT- Gait Assessment Comments Gait Ability Comments pt unable to mobilize out of bed at present M M9 OT- IP Assessment and Plan Start: 11/27/19 14:26 Freq: Status: Active Protocol: Document 11/29/19 10:39 PJM (Rec: 11/29/19 16:42 PJ [id number]) OT Summary Assessment and Plan Potential Rehabilitation Potential Fair Summary OT Impairments Pain Progress Towards Goals Slow Progress due to Pain Assessment Summary Pt premedicated by RN prior to tx. Pt on 1 L O2 and desatting to high 80's during attempts at mobility, needing max cues for breathing techniques to get sats up to low to mid 90's. Pt unable to participate in rolling due to high pain level and high anxiety overlay. Pt actively resisting rolling by pushing on bedrails, does not tolerate head of bed >40 degrees due to pain and adamantly refuses to try to come to edge of bed today. Discussed with RN who will consult with MD/PA re: pain management. Will continue attempts at mobility and participation in basic self care. Goals Grooming Goal Standby Assistance Dressing Goal Standby Assistance Toileting Goal Standby Assistance Bathing Goal Minimal Assistance Toilet Transfer Goal Standby Assistance Shower Transfer Goal Minimal Assistance Patient/Caregiver Education Goal Demonstrate Post-Op Precautions,Caregiver Independent Assisting Patient Days to Meet Goals 20 Frequency of Treatment Frequency Of Treatment Once a Day Treatment Plan OT Treatment Plan ADL Training,Functional Cognition Training,Functional Mobility,Patient/Family Education,Discharge Planning Discharge Recommendations OT Discharge Recommendations SNF Rehab Transportation Needs at Discharge Stretcher/Ambulance
--- NOTE | 2019-11-29 10:39 | PT.IPTN ---
Current Diagnoses Other spondylosis with radiculopathy, lumbosacral region (11/26/19) Spinal stenosis, lumbar region without neurogenic claudication (11/26/19) Arthrodesis status (11/26/19) Surgery Performed Operation Date: 11/26/19 07:45 Actual Procedures p L2-3, L3-4 TLIF, L4-S1 HWR, L2-S1 PSF W/ Instrumentation - Kt Escalera MD Physical Therapy Treatment Note M2 PT-IP Current Condition Start: 11/27/19 08:53 Freq: NEEDED Status: Active Protocol: Document 11/27/19 10:15 AW (Rec: 11/27/19 12:30 AW [id number]) Physical Therapy Current Condition Current Condition Evaluation Date 11/27/19 Treatment Diagnosis L2-5 TLIF Onset Date 11/26/19 Precautions Lumbar Precautions Log Roll,No Twisting,Limit Bending,Lifting Restriction of 10 lbs,Gait Belt above Incisional Area Weight Bearing Status Weight Bearing Status Full Weight Bearing M3 PT-IP Subjective Start: 11/27/19 08:53 Freq: NEEDED Status: Active Protocol: Document 11/29/19 10:09 SP (Rec: 11/29/19 12:55 SP [email or web address]) Subjective Physical Therapy Visit Type Type Treatment Note Visit Start Time 10:09 Visit Stop Time 10:39 Total Visit Minutes 30 Notes Co-treat with OT, male PT aide in room for assistance if needed. Number of CMO & PRESIDENT Visits 2 Physical Therapy Visit Comments Patient Comments Pt given pain medication Diladid 30 min prior to PT treatment this am. Patient Goals To not have pain, patient stated when asked durign treatment what her goal was while working with PT. Therapy Pain Assessment Pain When Pain Assessed At Rest Pain Present Pain Present Pain Reported Location lower back Intensity 6 Scale Used 6-7/10 at rest and more during mobility Pain Behaviors Calling Out,Facial Grimacing, Guarding,Moaning,Restlessness, Wincing Pain Management Techniques Distraction,Modification of Treatment,Re-positioning, Timing of Activity with Medications M4 PT-IP Mobility and Gait Start: 11/27/19 08:53 Freq: NEEDED Status: Active Protocol: Document 11/29/19 10:09 SP (Rec: 11/29/19 12:55 SP [email or web address]) PT-Bed Mobility Assessment Rolling Type of Rolling Roll to Left Level of Assist Maximal Assistance,2 Person Assistance PT-Transfer Assessment Comments Mobility Comments Pt was laying little elevated in bed when arrived. Pt had nasal canula supplimental O2 at 2 L with SaO2 mid 90s. PT/ OT cotreatment with continuous education on importance of functional mobility to improve strength and increased independence. Discussed with patient verbal sequencing of log roll R UE reaching over to L and pelvis and LE to roll to L to maintain spinal precautions. Pt stated repeatedly commented I can't no movement iniated at that time, max encouragement of participation and reminded of performance previous day's treatment seated at EOB with help of 3 persons. PT/OT reassured patient that therapy is here to help and may have pain but to be sure to engage abdominals to support LS stabilization and self strengthening performance in directions of therapist cuing to support decrease LBP. Pt intially agreeable with [place] to L bed rail with required Max A of 2 persons to provide support of pelvis and BLE using yunior pacd to log roll R, patient demonstrated forceful upper body R rotation and extension through LUE on bed rail and R UE swinging to reach for bed rail connecting with CMO & PRESIDENT shoulder with calling out no, no, I can't do it, it hurts. Pt then demonstrated forceful extension with BUE on bed rails tighening upper body. CMO & PRESIDENT/OT reasssured her to take slow pursed lip breathes and relax arms to decrease LB over activation recruitment could be causing herself. Pt refused any further suggestions for therapy, NO, NO, NO, I can't do this, it hurts. CMO & PRESIDENT/OT discussed need for repositioning center in bed and bed tilted to L to unweight bottom with on comment from patient, closed her eyes suggesting was going to sleep. Nurse came in per PT request maybe need for med assistance with meds but patient did not respond when patient was asked if would like something for pain. CMO & PRESIDENT/ OT assisted repositioning with patient little resistance to center her for safety head away from bed rail and improved spinal alignment in bed with bed tilted to L for bottom integrity. Pt had bed alarm on with all needs in reach when left. Gait Assessment Comments Gait Comments Pt unsafe to ambulate at this time, unable to log roll or complete to sitting at this time secondary to pain. PT-Balance Assessment Comments Other Balance Tests/Deviations/Treatment Unable to assess sitthing this : session, see mobility comments. M5 PT-IP Objective Assessments Start: 11/27/19 08:53 Freq: NEEDED Status: Active Protocol: Document 11/27/19 10:15 AW (Rec: 11/27/19 12:30 AW [id number]) Orientation Orientation/Cognition Level of Alertness Alert Orientation Name,Day of Week,Place, Situation Language Function Ability Word Finding Difficulties Safety Awareness Understands Safety Issues Memory Description No Deficits Noted Gross Range of Motion Lower Extremity ROM Assessment Bilaterally Impaired Strength Lower Extremity Strength Assessment Bilaterally Impaired Hip 3-/5 Knee 3-/5 Ankle 3/5 Sensation Assessment Sensation Gross Sensation Right LE Impaired,Left LE Impaired Light Touch Impaired Proprioception (Position) Impaired Comments Sensation Comments Pt has diabetic neuropathy affecting sensation in bilateral plantar feet M6 PT-IP Treatment Start: 11/27/19 08:53 Freq: NEEDED Status: Active Protocol: Document 11/29/19 10:09 SP (Rec: 11/29/19 12:55 SP [email or web address]) Physical Therapy Treatment Exercises Exercises Ankle Pumps,Quad Sets,Heel Slides,Supine Hip Abduction Knee ROM Measurement 10 deg knee flexion Education Education Provided Precautions,Safety M7 PT-IP Assessment and Plan Start: 11/27/19 08:53 Freq: NEEDED Status: Active Protocol: Document 11/29/19 10:09 SP (Rec: 11/29/19 12:55 SP [email or web address]) PT Summary Assessment and Plan Potential Rehabilitation Potential Poor Status of Condition at Evaluation Evolving Summary Impairments Pain,ROM,Strength,Balance, Sensation,Cognition,Bed Mobility,Transfers,Gait, Activity Tolerance Progress Towards Goals Slow Progress due to Pain,Slow Progress due to Activity Tolerance Assessment Summary Patient was in significant amount of pain at beginning of session (6-04/04 pre medicated ). Patient is still in need of Max Ax3 to complete log roll to left before forceful R upper body rotation while still supporting Lower body in L sidelying. Pt refused further activity. See mobility comments. Patient will still require SNF at discharge to continue to work on LE strengthening, endurance, log roll,bed mobility and sitting/ standing balance to progress in strength and functional mobility. Goals Bed Mobility Goal Minimal Assistance Transfer Goal Minimal Assistance,Front Wheeled Walker Gait Goal Minimal Assistance,Front Wheel Walker Gait Distance 50 Days to Meet Goals 10 Frequency of Treatment Frequency Of Treatment Twice a Day Treatment Plan Physical Therapy Treatment Plan Bed Mobility Training,Transfer Training,Gait Training, Therapeutic Exercise,Balance Retraining,Post Op Education, Discharge Planning,Hot or Cold Pack,Neuromuscular Re-ed, Coordination Retraining,Manual Therapy Other Recommendations and Next Treatment bed mobility with 3PA, attempt Focus to log roll and sit at EOB, stand if able. Recommendations To Nursing Amount of Assist Needed 2 Person Assist Discharge Recommendations PT Discharge Recommendations SNF Rehab Transportation Needs at Discharge Wheelchair/Cabulance
[2019-11-29] MEDS: DEXAMETHASONE 10 MG/ML VIAL IV (12:31)
[2019-11-29] MEDS: ASPIRIN EC 81 MG TABLET PO (12:31)
--- NOTE | 2019-11-29 16:08 | DI.RAD.S_ITS ---
PROCEDURE: XR CHEST 1V INDICATIONS: dyspnea on exertion TECHNIQUE: One view of the chest was acquired. COMPARISON: [facility], TONY, XR CHEST 1V, 05/21/2018, 17:20. [facility], TONY, CHEST FOR PICC PLACEMENT, 07/22/2017, 10:58. FINDINGS: Surgical changes and devices: None. Lungs and pleura: Lungs are abnormal with left lower lobe opacification more laterally and medial right lower lobe opacification.. No pleural effusions or pneumothorax. Mediastinum: Mediastinal contours appear normal. Heart size is normal. Bones and chest wall: No suspicious bony lesions. Overlying soft tissues appear unremarkable. IMPRESSION: Bilateral basilar pneumonia, no pleural effusion found. Surgical clips noted over the epigastrium. No pneumothorax found. Dictated by: Marvel Ortiz M.D. on 11/29/2019 at 17:20 Approved by: Marvel Ortiz M.D. on 11/29/2019 at 17:21
--- NOTE | 2019-11-29 16:19 | P.CONS_ITS ---
History of Present Illness Consult details Date Patient Seen: 11/29/19 Time Patient Seen: 16:19 Chief complaint: [id number] Reason for consult: hypoxia, confusion Requesting provider: Krissy Johnson Narrative: Bushra Desai is a 68-year-old female with PMH ischemic CVA w/ residual deficits (RUE and RLE weakness and gait imbalance), post stroke migraine (requires botox injections Q3 months), DM 2T, HLD, COPD, ABIOLA (CPAP), morbid obesity, depression / anxiety, chronic back pain (i.e. spinal stenosis) who was admitted on 11/26/2019 after a lumbar fusion with Dr. Escalera. Postop eratively she developed an SHARON that responded to fluids. Today it was reported that patient was confused, and has been demonstrating much anxiety. She has also been hypoxic ranging from 84-92% on 1 L nasal cannula. Medicine was asked to evaluate. Upon my examination, the patient was pleasant, cooperative, but did not recall much of today's events. She denied any chest pain or pressure, she did not feel short of breath, she denied any abdominal pain, palpitations, nausea, vomiting, headache, fevers, chills. She did complain of worsened back pain, after attempting to ambulate with physical therapy today. She was alert and oriented x3 at the time. She was on nasal cannula, and desaturated into the upper 80s when oxygen was turned off. She does use a CPAP at night, and has been using it while here. Meds Home Medications and Allergies Home Medications Medication Instructions Recorded Confirmed Type clopidogrel [Plavix] 75 mg PO DAILY #0 06/15/17 11/26/19 History fenofibrate 54 mg PO BEDTIME #0 06/15/17 11/26/19 History metformin 1,000 mg PO BID 02/02/18 11/26/19 History gabapentin 600 mg PO TID PRN 04/19/18 11/26/19 History bupropion HCl 300 mg PO DAILY 10/25/18 11/26/19 History trazodone 150 mg PO BEDTIME 10/25/18 11/26/19 History verapamil 80 mg PO BID 10/25/18 11/26/19 History sumatriptan succinate [Imitrex] 6 mg SUBCUT Q2H PRN #30 ml 01/07/19 11/26/19 Rx oxycodone 5 mg PO Q8H PRN 10/29/19 11/26/19 History Allergies Allergy/AdvReac Type Severity Reaction Status Date / Time vancomycin Allergy Intermediate Flushing & Verified 11/26/19 06:43 rash Review of Systems Review of Systems Narrative: All other systems reviewed with the patient and are negative unless otherwise stated. Exam Vital Signs (past 8 hours): - 11/29/19 09:36 11/29/19 11:58 Temperature 99.8 F H Pulse Rate 102 H Respiratory Rate 18 Blood Pressure 134/59 L Pulse Oximetry 89 L 94 Oxygen Delivery Method Room Air Oxygen Flow Rate 1 Narrative Exam Narrative: GENERAL APPEARANCE: Obese female, lying flat in hospital bed. Mildly anxious appearing. SKIN: Inspection of the skin reveals no rashes, ulcerations or petechiae. HEENT: The sclerae were anicteric and conjunctivae were pink and moist. Extraocular movements were intact and pupils were equal, round with normal accommodation. External inspection of the ears and nose showed no scars, lesions, or masses. Lips, teeth, and gums showed normal mucosa. The oral mucosa, hard and soft palate, tongue and posterior pharynx were unremarkable. NECK: Supple and symmetric. There was no thyroid enlargement, and no tenderness, or masses were felt. CHEST: Normal AP diameter and normal contour without any kyphoscoliosis. LUNGS: Auscultation of the lungs revealed no wheezes, rhonchi, or rales. CARDIOVASCULAR: There was a regular rate and rhythm without any murmurs, gallops, rubs. Peripheral pulses were 2+ and symmetric. ABDOMEN: Soft and nontender with normal bowel sounds. No ascites was noted. MUSCULOSKELETAL: There was no tenderness or effusions noted. Muscle strength and tone were normal. EXTREMITIES: No cyanosis, clubbing or edema. NEUROLOGIC: Alert and oriented x 3. Normal affect. Diminished strength in right upper and right lower extremity, sensation intact to light touch bilaterally. Objective Labs Result Diagrams: 11/27/19 08:10 11/29/19 06:25 Labs: Laboratory Results - last 24 hr 11/29/19 06:25 Sodium 138 Potassium 4.3 Chloride 103 Carbon Dioxide 28 BUN 17 Creatinine 1.00 Estimated GFR 55.3 L BUN/Creatinine Ratio 17.0 Glucose 106 Calcium 8.7 Total Bilirubin 0.5 AST 194 H ALT 27 Alkaline Phosphatase 64 Total Protein 6.4 Albumin 3.1 L Globulin 3.3 Albumin/Globulin Ratio 0.9 L Assessment & Plan Assessment & Plan narrative: Bushra Desai is a 68-year-old female with PMH ischemic CVA w/ residual deficits (RUE and RLE weakness and gait imbalance), post stroke migraine (requires botox injections Q3 months), DM 2T, HLD, COPD, ABIOLA (CPAP), morbid obesity, depression / anxiety, chronic back pain (i.e. spinal stenosis) who was admitted on 11/26/2019 after a lumbar fusion with Dr. Escalera. Postoperatively she developed an SHARON that responded to fluids. Today it was reported that patient was confused, and has been demonstrating much anxiety. She has also been hypoxic ranging from 84-92% on 1 L nasal cannula. Medicine was asked to evaluate. 1. Toxic metabolic encephalopathy, acute -etiology is not entirely clear. May be related to pain medications, maty ypharmacy, hypercapnia, possible underlying infection -start evaluation with a urinalysis, CBC, VBG to assess for hypercarbia, and chest x-ray. 2. Acute hypoxemic respiratory failure -continue supplemental oxygen as needed, further workup as noted above -differential is broad at this point, will also obtain an EKG 3. Elevated AST -unclear etiology but may be transient hypotension in the setting of surgery, or perhaps medication-related. AST was quite elevated at 387 but has down trended to 194. -continue to follow AST. 4. Diabetes, type 2, without long-term insulin use -patient is on appropriate sliding scale insulin regimen at this time and metformin. 5. History of CVA -patient's home Plavix is on hold per surgery, continue aspirin 81 mg daily Code: Full, surrogate decision maker patient states is daughter. Medicine will continue this follow this patient and update after the above evaluation.
--- NOTE | 2019-11-29 16:20 | PT.IPTN ---
Addendum entered and electronically signed by Aydee Og PTA 11/29/19 16:52: Pt vitals taken pre activity: BP 142/74, HR 103, SaO2 91% on supplimental O2. CNAs took temp 97.5 deg F. Original Note: Current Diagnoses Other spondylosis with radiculopathy, lumbosacral region (11/26/19) Spinal stenosis, lumbar region without neurogenic claudication (11/26/19) Arthrodesis status (11/26/19) Surgery Performed Operation Date: 11/26/19 07:45 Actual Procedures p L2-3, L3-4 TLIF, L4-S1 HWR, L2-S1 PSF W/ Instrumentation - Kt Escalera MD Physical Therapy Treatment Note M2 PT-IP Current Condition Start: 11/27/19 08:53 Freq: NEEDED Status: Active Protocol: Document 11/27/19 10:15 AW (Rec: 11/27/19 12:30 AW [id number]) Physical Therapy Current Condition Current Condition Evaluation Date 11/27/19 Treatment Diagnosis L2-5 TLIF Onset Date 11/26/19 Precautions Lumbar Precautions Log Roll,No Twisting,Limit Bending,Lifting Restriction of 10 lbs,Gait Belt above Incisional Area Weight Bearing Status Weight Bearing Status Full Weight Bearing M3 PT-IP Subjective Start: 11/27/19 08:53 Freq: NEEDED Status: Active Protocol: Document 11/29/19 16:00 SP (Rec: 11/29/19 16:47 SP [id number]) Subjective Physical Therapy Visit Type Type Treatment Note Visit Start Time 16:00 Visit Stop Time 16:20 Total Visit Minutes 20 Notes trading assistant x2 helped during tx with mobility. Number of KETTLE CHIPPER Visits 3 Physical Therapy Visit Comments Patient Comments Pt agreeable to work with PT and assists to work on getting up. Patient Goals I would like to get up when patient asked for her goal during treatment. Therapy Pain Assessment Pain When Pain Assessed At Rest Pain Present Pain Present Pain Reported Location lower back Intensity 6 Scale Used 6/10 at rest, more with attempt log roll x3. Pain Behaviors Calling Out,Facial Grimacing, Guarding,Moaning,Restlessness, Wincing Pain Management Techniques Distraction,Modification of Treatment,Re-positioning M4 PT-IP Mobility and Gait Start: 11/27/19 08:53 Freq: NEEDED Status: Active Protocol: Document 11/29/19 16:00 SP (Rec: 11/29/19 16:47 SP [id number]) PT-Bed Mobility Assessment Rolling Type of Rolling Log Rolling,Bilateral Level of Assist Maximal Assistance,1 Person Assistance,2 Person Assistance PT-Transfer Assessment Comments Mobility Comments Pt was laying in bed with bed tilted to R to unweight bottom when arrived, eyes wide open alert. Pt was agreeable to work with PT this late afternoon. KETTLE CHIPPER noted patient had been perspiring alot pre PT session noted by SCDs, sheets and gown damp. KETTLE CHIPPER assisted patient in prep for log roll doing abdominal activation and LE exercises: quad sets, ankle pumps, heel slides with very little change in report of pain when asked. KETTLE CHIPPER educated patient might have pain but important to use abdominal tightening to support low back during mobility and UE placement/ positioning reaching LUE across to R bed rail while KETTLE CHIPPER and CNAs x2 help assist patient complete roll onto R side. Once patient starts to roll with support she immediately rotates her upper back to L letting go of bed rail twisting her back stating no, no, no, I can't, no more . KETTLE CHIPPER and CNAs assist her back onto her back and educated need for repositioning in bed and patient agreed could help her onto her L side with use of yunior pad and bed tilt to L, Max A of 2 person while 3rd positioning pillow under R pelvis to unweight bottom for safety of skin integrity. CNAs in room assisting patient with gown change and suggested new SCDs as well with confirmation before left. Gait Assessment Comments Gait Comments Pt unsafe to ambulate at this time, unable to log roll or complete to sitting at this time secondary to pain. PT-Balance Assessment Sitting Balance and Reactions Static Sitting Balance Ability Poor Dynamic Sitting Balance Ability Poor Comments Other Balance Tests/Deviations/Treatment Unable to assess sitting this : session, see mobility comments . M5 PT-IP Objective Assessments Start: 11/27/19 08:53 Freq: NEEDED Status: Active Protocol: Document 11/27/19 10:15 AW (Rec: 11/27/19 12:30 AW [id number]) Orientation Orientation/Cognition Level of Alertness Alert Orientation Name,Day of Week,Place, Situation Language Function Ability Word Finding Difficulties Safety Awareness Understands Safety Issues Memory Description No Deficits Noted Gross Range of Motion Lower Extremity ROM Assessment Bilaterally Impaired Strength Lower Extremity Strength Assessment Bilaterally Impaired Hip 3-/5 Knee 3-/5 Ankle 3/5 Sensation Assessment Sensation Gross Sensation Right LE Impaired,Left LE Impaired Light Touch Impaired Proprioception (Position) Impaired Comments Sensation Comments Pt has diabetic neuropathy affecting sensation in bilateral plantar feet M6 PT-IP Treatment Start: 11/27/19 08:53 Freq: NEEDED Status: Active Protocol: Document 11/29/19 16:00 SP (Rec: 11/29/19 16:47 SP [id number]) Physical Therapy Treatment Exercises Exercises Ankle Pumps,Gluteal Sets,Quad Sets,Heel Slides,Supine Hip Abduction Knee ROM Measurement 10 deg knee flexion before she kayla out stop Education Education Provided Precautions,Weight Bearing Status,Post-Op Packet,Safety M7 PT-IP Assessment and Plan Start: 11/27/19 08:53 Freq: NEEDED Status: Active Protocol: Document 11/29/19 16:00 SP (Rec: 11/29/19 16:47 SP [id number]) PT Summary Assessment and Plan Potential Rehabilitation Potential Poor Status of Condition at Evaluation Evolving Summary Impairments Pain,ROM,Strength,Balance, Sensation,Cognition,Bed Mobility,Transfers,Gait, Activity Tolerance Progress Towards Goals Slow Progress due to Pain,Slow Progress due to Activity Tolerance Assessment Summary Patient reported 6/10 pain at rest beginning of session. Patient is still in need of Max Ax3 to complete log roll to right before forceful L upper body rotation while still supporting Lower body in L sidelying, thus twisting. Pt refused further activity braces her BUE on bed rail stating no, no, no, I can't, no more. See mobility comments. Patient will require SNF at discharge with mechanical lift at this time for transfers, required continued need for skilled therapy to continue to work on LE strengthening, endurance, log roll, bed mobility and sitting/standing balance to progress in strength and functional mobility. Goals Bed Mobility Goal Minimal Assistance Transfer Goal Minimal Assistance,Front Wheeled Walker Gait Goal Minimal Assistance,Front Wheel Walker Gait Distance 50 Days to Meet Goals 10 Frequency of Treatment Frequency Of Treatment Twice a Day Treatment Plan Physical Therapy Treatment Plan Bed Mobility Training,Transfer Training,Gait Training, Therapeutic Exercise,Balance Retraining,Post Op Education, Discharge Planning,Hot or Cold Pack,Neuromuscular Re-ed, Coordination Retraining,Manual Therapy Other Recommendations and Next Treatment bed mobility with 3PA, attempt Focus to log roll and sit at EOB, stand if able. Recommendations To Nursing Amount of Assist Needed 3 or More Person Assist,PT/OT Assist Only,Mechanical Lift Discharge Recommendations PT Discharge Recommendations SNF Rehab Transportation Needs at Discharge Wheelchair/Cabulance
[2019-11-29 17:50] LABS: Add Manual Diff / Slide Review NO; Basophils Absolute Auto 100 /uL (0-100); Basophils Percent Auto 0.4 % (0-2); Eosinophils Absolute Auto 0 /uL (0-450); Eosinophils Percent Auto 0.1 % (2-4); Hematocrit 31.6 % (36-46); Hemoglobin 10.5 g/dL (12.0-16.0); Lymphocytes Absolute Auto 400 /uL (1100-4500); Mean Corpuscular HGB Conc 33.2 % (30-36); Mean Corpuscular Hemoglobin 30.1 PG (26-34); Mean Corpuscular Volume 90.7 fL (80-100); Monocytes Absolute Auto 200 /uL (0-900); Monocytes Percent Auto 1.8 % (3-14); Neutrophils Absolute Auto 11900 /uL (1500-7000); Neutrophils Percent Auto 94.7 % (50-75); Platelet Count 258 X10^3/uL (150-400); Red Blood Cell Count 3.49 X10^6/uL (4.0-5.2); Red Cell Distribution Width 14.7 % (11.6-14.8); White Blood Cell Count 12.6 X10^3/uL (4.5-11.0)
[2019-11-29 17:56] LABS: HCO3 VBG 22 mmol/L (23-28); Oxygen Saturation VBG 99 % (70-75); PO2 VBG 140 mmHg (35-45); Total CO2 VBG 23 mmol/L (24-29); pH VBG 7.39 (7.33-7.43)
--- NOTE | 2019-11-29 18:22 | PC.NURSE ---
Addendum entered by Zakia House R.N. 11/29/19 22:54: Dressing to mid back, CDI. Patient guarded during mobility, fearful, needs reassurance. Discussed importance of mobility and using IS. Original Note: Ashlyn shift note: Patient awake and alert, oriented to self, place, and situation. Poor PO intake, encouraged fluids. Received on O2 at 1L via NC, sat 93-94%. Skin warm, pallor to face, moisture associated redness to panus and under breast. Updated [place] regarding patients mobility status, dressing to lower back, O2 requirements, and FC in place on day #3 post sx. BG checks AC/HS ordered, and sliding scale. Dr. Price consulted. New orders obtained. SCDs in place, encouraged IS use while awake and position changes while in bed. Call light within reach, high fall risk precautions maintained.
[2019-11-29] MEDS: AMPICILLIN/SULBACTAM 3 GM 3 GM in SODIUM CHLORIDE 0.9% 100 ML IV (18:58)
[2019-11-29 20:39] LABS: Bacteria Urine None Seen
[2019-11-29] MEDS: TRAZODONE 50 MG TABLET 150 MG PO (20:40)
[2019-11-29 20:41] LABS: Appearance Urine UA CLEAR; Bilirubin Urine UA NEGATIVE (NEGATIVE); Color Urine UA YELLOW; Glucose Urine UA NEGATIVE (Negative); Ketones Urine UA 1+ (NEGATIVE); Leukocyte Esterase Urine UA NEGATIVE (NEGATIVE); Nitrite Urine UA NEGATIVE (Negative); Occult Blood Urine UA 2+ (Negative); Protein Urine UA 1+ (Negative); Specific Gravity Urine UA 1.015 (1.000-1.035); Urobilinogen Urine UA 0.2 E.U./dL (0.2)
[2019-11-29] MEDS: SENNOSIDES 8.6 MG TABLET 17.2 MG PO (20:41)
[2019-11-29 20:50] LABS: RBC Urine 0-1/HPF (0-5/HPF); Squamous Epithelial Cell Urine 0-1 /HPF (0-5/HPF); WBC Urine 0-1/HPF (0-5/HPF)
[2019-11-29 20:51] LABS: Culture Indicated Urine Cult Not Indicated
[2019-11-29 21:14] LABS: Adenovirus Not Detected (Not Detect); Bordetella pertussis Not Detected (Not Detect); Chlamydophila pneumoniae Not Detected (Not Detect); Coronavirus 229E Not Detected (Not Detect); Coronavirus HKU1 Not Detected (Not Detect); Coronavirus NL 63 Not Detected (Not Detect); Coronavirus OC43 Not Detected (Not Detect); Human Metapneumovirus Not Detected (Not Detect); Human Rhinovirus/Enterovirus Detected (Not Detect); Influenza A Not Detected (Not Detect); Influenza B Not Detected (Not Detect); Mycoplasma pneumoniae Not Detected (Not Detect); Parainfluenza Virus 1 Not Detected (Not Detect); Parainfluenza Virus 2 Not Detected (Not Detect); Parainfluenza Virus 3 Not Detected (Not Detect); Parainfluenza Virus 4 Not Detected (Not Detect); Respiratory Syncytial Virus Not Detected (Not Detect)
[2019-11-30 00:08] VITALS: BP 138/78; PULSE 80; RESP 18; TEMP 36.7; O2SAT 92
[2019-11-30] MEDS: AMPICILLIN/SULBACTAM 3 GM 3 GM in SODIUM CHLORIDE 0.9% 100 ML IV ×3 (00:08→13:20)
[2019-11-30 06:12] VITALS: BP 144/73; PULSE 84; RESP 18; TEMP 36.1; O2SAT 96
[2019-11-30] MEDS: SODIUM CHLORIDE 0.9% FLUSH 10 ML IV ×2 (06:23→09:45)
[2019-11-30 07:11] LABS: Alanine Aminotransferase 26 IU/L (<35); Albumin 3.4 g/dL (3.5-5.0); Albumin Globulin Ratio 0.9 (1.0-2.8); Alkaline Phosphatase 65 U/L (38-126); Aspartate Aminotransferase 110 IU/L (14-36); BUN Creatinine Ratio 27.5 (6-22); Bilirubin Total 0.5 mg/dL (0.2-1.3); Blood Urea Nitrogen 22 mg/dL (7-17); Calcium 9.1 mg/dL (8.4-10.2); Carbon Dioxide 23 mmol/L (22-32); Chloride 105 mmol/L (98-107); Estimated Glomerular Filt Rate > 60.0 mL/min (>60); Globulin 3.6 g/dL (1.7-4.1); Glucose 163 mg/dL (80-110); HEMOLYSIS 19 (0-50); Potassium 4.2 mmol/L (3.4-5.1); Sodium 139 mmol/L (137-145)
[2019-11-30 08:03] VITALS: BP 143/80; PULSE 92; RESP 18; TEMP 36.5; O2SAT 98
[2019-11-30] MEDS: INSULIN ASPART 100 UNIT/ML INSULN PEN SUBCUT ×2 (09:42→11:34)
[2019-11-30 09:43] VITALS: BP 143/80
[2019-11-30] MEDS: ASPIRIN EC 81 MG TABLET PO (09:43)
[2019-11-30] MEDS: VERAPAMIL 80 MG TABLET PO (09:43)
[2019-11-30] MEDS: HYDROMORPHONE 2 MG TABLET PO ×2 (09:44→13:20)
[2019-11-30] MEDS: DOCUSATE 100 MG CAPSULE PO (09:44)
[2019-11-30] MEDS: METFORMIN HCL 500 MG TABLET 1000 MG PO (09:44)
[2019-11-30] MEDS: GABAPENTIN 600 MG TABLET PO ×2 (09:44→13:20)
[2019-11-30] MEDS: buPROPion XL 150 MG TAB 300 MG PO (09:44)
--- NOTE | 2019-11-30 10:47 | DI.US.S_ITS ---
PROCEDURE: US PERIPH VENOUS LOW EXTREM LT INDICATIONS: POST OP, POSITIVE AUDREY SIGN TECHNIQUE: Real-time imaging, as well as color and pulse Doppler interrogation, were performed of the lower extremity deep veins from the inguinal ligament to the popliteal fossa. COMPARISON: None. FINDINGS: The common femoral, femoral and popliteal veins are normally compressible, and free of intraluminal thrombus. Color and pulse Doppler demonstrate normal phasic intraluminal flow. There is normal augmentation response to distal compression maneuver. IMPRESSION: Negative exam. No left lower extremity DVT. Dictated by: Huan Mancera M.D. on 11/30/2019 at 11:37 Approved by: Huan Mancera M.D. on 11/30/2019 at 11:38
--- NOTE | 2019-11-30 10:50 | PM.PNPO.1 ---
Exam Vital Signs (past 8 hours): - 11/30/19 06:12 11/30/19 08:03 11/30/19 09:43 Temperature 96.9 F L 97.7 F Pulse Rate 84 92 H Respiratory Rate 18 18 Blood Pressure 144/73 H 143/80 H 143/80 H Pulse Oximetry 96 98 Oxygen Delivery Method Room Air,CPAP Oxygen Flow Rate 1 Objective Labs Result Diagrams: 11/29/19 17:34 11/30/19 06:50 Labs: Laboratory Results - last 24 hr 11/29/19 11/29/19 11/29/19 17:34 17:38 18:48 WBC 12.6 H RBC 3.49 L Hgb 10.5 L Hct 31.6 L MCV 90.7 MCH 30.1 MCHC 33.2 RDW 14.7 Plt Count 258 Neut % (Auto) 94.7 H Lymph % (Auto) 3.0 L [place] % (Auto) 1.8 L Eos % (Auto) 0.1 L Baso % (Auto) 0.4 Neut # (Auto) 79087 H Lymph # (Auto) 400 L [place] # (Auto) 200 Eos # (Auto) 0 Baso # (Auto) 100 VBG pH 7.39 VBG pCO2 36.0 L VBG pO2 140 H VBG HCO3 22 L VBG Total CO2 23 L VBG O2 Saturation 99 H VBG Base Excess -3.0 L Sodium Potassium Chloride Carbon Dioxide BUN Creatinine Estimated GFR BUN/Creatinine Ratio Glucose Calcium Total Bilirubin AST ALT Alkaline Phosphatase Total Protein Albumin Globulin Albumin/Globulin Ratio Urine Color Yellow Urine Appearance Clear Urine pH 6.0 Ur Specific [place] 1.015 Urine Protein 1+ H Urine Glucose (UA) Negative Urine Ketones 1+ H Urine Occult Blood 2+ H Urine Nitrate Negative Urine Bilirubin Negative Urine Urobilinogen 0.2 Ur Leukocyte Esterase Negative Urine RBC 0-1/hpf Urine WBC 0-1/hpf Ur Squamous Epith Cells 0-1 /hpf Urine Bacteria None seen Ur Culture Indicated? Cult not indicated Chlamy pneumoniae PCR Adenovirus (PCR) B.parapertussis DNA PCR Coronavirus OC43 (PCR) Coronavirus HKU1 (PCR) Coronavirus 229E (PCR) Coronavirus NL63 (PCR) Human Metapneumovir PCR Influenza Type A (PCR) Influenza Type B (PCR) M. pneumoniae (PCR) Parainfluenza 1 (PCR) Parainfluenza 2 (PCR) Parainfluenza 3 (PCR) Parainfluenza 4 (PCR) RSV (PCR) Entero/Rhino (PCR) 11/29/19 11/30/19 19:10 06:50 WBC RBC Hgb Hct MCV MCH MCHC RDW Plt Count Neut % (Auto) Lymph % (Auto) [place] % (Auto) Eos % (Auto) Baso % (Auto) Neut # (Auto) Lymph # (Auto) [place] # (Auto) Eos # (Auto) Baso # (Auto) VBG pH VBG pCO2 VBG pO2 VBG HCO3 VBG Total CO2 VBG O2 Saturation VBG Base Excess Sodium 139 Potassium 4.2 Chloride 105 Carbon Dioxide 23 BUN 22 H Creatinine 0.80 Estimated GFR > 60.0 BUN/Creatinine Ratio 27.5 H Glucose 163 H Calcium 9.1 Total Bilirubin 0.5 AST 110 H ALT 26 Alkaline Phosphatase 65 Total Protein 7.0 Albumin 3.4 L Globulin 3.6 Albumin/Globulin Ratio 0.9 L Urine Color Urine Appearance Urine pH Ur Specific [place] Urine Protein Urine Glucose (UA) Urine Ketones Urine Occult Blood Urine Nitrate Urine Bilirubin Urine Urobilinogen Ur Leukocyte Esterase Urine RBC Urine WBC Ur Squamous Epith Cells Urine Bacteria Ur Culture Indicated? Chlamy pneumoniae PCR Not detected Adenovirus (PCR) Not detected B.parapertussis DNA PCR Not detected Coronavirus OC43 (PCR) Not detected Coronavirus HKU1 (PCR) Not detected Coronavirus 229E (PCR) Not detected Coronavirus NL63 (PCR) Not detected Human Metapneumovir PCR Not detected Influenza Type A (PCR) Not detected Influenza Type B (PCR) Not detected M. pneumoniae (PCR) Not detected Parainfluenza 1 (PCR) Not detected Parainfluenza 2 (PCR) Not detected Parainfluenza 3 (PCR) Not detected Parainfluenza 4 (PCR) Not detected RSV (PCR) Not detected Entero/Rhino (PCR) Detected H Assessment & Plan Post-op Postoperative Procedures: Procedures Operation Date: 11/26/19 07:45 Actual Procedures Side Surgeon p L2-3, L3-4 TLIF, L4-S1 HWR, L2-S1 PSF W/ Instrumentation Kt Escalera MD Quality VTE Deep Vein Thrombosis/Pulmonary Embolism Present on Admission: No
--- NOTE | 2019-11-30 10:55 | OT.IP.TRT ---
Current Diagnoses Other spondylosis with radiculopathy, lumbosacral region (11/26/19) Spinal stenosis, lumbar region without neurogenic claudication (11/26/19) Arthrodesis status (11/26/19) Surgery Performed Operation Date: 11/26/19 07:45 Actual Procedures p L2-3, L3-4 TLIF, L4-S1 HWR, L2-S1 PSF W/ Instrumentation - Kt Escalera MD Occupational Therapy Treatment Note M2 OT-IP Current Condition Start: 11/27/19 14:26 Freq: Status: Active Protocol: Document 11/27/19 14:00 [facility] (Rec: 11/27/19 14:59 [facility] [id number]) Occupational Therapy Current Condition Current Condition Evaluation Date 11/27/19 Treatment Diagnosis S/p L2-3, L3-4TLIF , L4-5 HWR PSFw/ Instrumentation Diagnosis Onset Date 11/26/19 Post Operative Precautions Lumbar Precautions Log Roll,No Twisting,Limit Bending,Lifting Restriction of 10 lbs,Gait Belt above Incisional Area Weight Bearing Status Weight Bearing Status Weight Bear as Tolerated M3 OT- IP Subjective and Pain Start: 11/27/19 14:26 Freq: Status: Active Protocol: Document 11/30/19 12:11 [facility] (Rec: 11/30/19 12:23 [facility] [id number]) OT- Subjective Occupational Therapy Visit Type Type Treatment Note Visit Start Time 10:20 Visit Stop Time 10:55 Total Visit Minutes 35 Occupational Therapy Visit Comments Patient Comments Pt agreeable to try to get up. BLANKER PRESS OPERATOR, nursing aid, and rn rehab all present to assist. At the end of the session PA came to see pt. Patient/Caregiver Goals to have less back pain and go home OT Pain Assessment Pain When Pain Assessed During Mobility Pain Present Pain Present Pain Reported Location L thigh Intensity 5 Scale Used Numeric (1 - 10) lower back Intensity 7 Scale Used Numeric (1 - 10) M4 OT- IP ADL's Start: 11/27/19 14:26 Freq: Status: Active Protocol: Document 11/30/19 12:11 [facility] (Rec: 11/30/19 12:23 [facility] [id number]) OT ADL-Grooming General Evaluation Grooming Ability Standby Assistance Areas Needing Assistance Retrieving/Set-up of Grooming Items Comments OT Grooming Comments Pt able to wash her face after set-up. OT ADL-Dressing General Eval Lower Body Dressing Ability Total Assistance Areas Needing Assistance Socks M5 OT- IP IADL's Start: 11/27/19 14:26 Freq: Status: Active Protocol: Document 11/27/19 14:00 [facility] (Rec: 11/27/19 14:59 [facility] [id number]) OT-Instrumental Activities of Daily Living Home Safety Awareness Awareness of Need for Assistance at Home Good Awareness Mental Health Coordinator Mental Health Coordinator Caregiver Provides Assist M6 OT- IP Functional Cognition Start: 11/27/19 14:26 Freq: Status: Active Protocol: Document 11/30/19 12:11 [facility] (Rec: 11/30/19 12:23 [facility] [id number]) Cognitive Factors Limiting Selfcare Function Cognitive Ability Level of Alertness Alert Patient Orientation Name,Place,Situation Attention Span Ability Capable of Focused Attention, Capable of Sustained Attention Ability to Follow Commands Able to Follow One Step Commands Memory Description Short Term Impaired Cognitive Comments Cognitive Assessment Comments Pt able to recall 3/3 back precautions and able to follow commands for bed mobility needs after initially having difficulty to bed her knees and resisting movements. Pt very tired and at times not able to pin point her pain when talking to the PA. Pt states having left calf pain, PA ordered ultrasound. M7 OT- IP Mobility and Balance Start: 11/27/19 14:26 Freq: Status: Active Protocol: Document 11/30/19 12:11 [facility] (Rec: 11/30/19 12:23 [facility] [id number]) OT- Bed Mobility Assessment Rolling Type of Rolling Roll to Left Level of Assistance Maximum Assistance,2 Person Assistance Supine to Sit Supine to Sit Assist Maximum Assistance,2 Person Assistance Sit to Supine Sit to Supine Assist Total Assistance,2 Person Assistance OT-Transfer Assessment Sit to and From Stand Sit to and from Stand Maximum Assistance,2 Person Assistance Comments Mobility Comments Initially pt not comprehending well and instead of assist to bend her knees was resisting. MAX A to help keep knees bend and MAX 1-2 to help roll to the left with assist of pt to pull on bed rail. MAX AX 3 to help get from sidelying to sitting. Pt able to stand with heavy use of arms on FWW and MAX A X 3 for nursing aid able to change out the sheets. use of Kristopher lift to help reposition back into bed. OT- Gait Assessment Comments Gait Ability Comments Pt just able to tolerate sitting and standing with MAX A X3 with FWW. OT- Balance Assessment Sitting Balance and Reactions Static Sitting Balance Ability Poor Dynamic Sitting Balance Ability Poor Standing Balance and Reactions Static Standing Balance Ability Poor Comments Other Balance Tests/Deviations/Treatment MAX X 1 to help with sitting : balance as pt tends to lean backwards. M8 OT- IP Objective Assessments Start: 11/27/19 14:26 Freq: Status: Active Protocol: Document 11/27/19 14:00 [facility] (Rec: 11/27/19 14:59 [facility] [id number]) OT Gross Range of Motion Upper Extremity Range of Motion Assessment Right Impaired OT Strength Upper Extremity Strength Assessment Right Impaired Comments Strength Comments RUE 3+/5 to 4-/5 from proximal to distal, LUE 4/5 OT-Muscle Tone Assessment Muscle Tone WNL Yes M9 OT- IP Assessment and Plan Start: 11/27/19 14:26 Freq: Status: Active Protocol: Document 11/30/19 12:11 [facility] (Rec: 11/30/19 12:23 [facility] [id number]) OT Summary Assessment and Plan Potential Rehabilitation Potential Fair Summary OT Impairments Pain,Functional Cognition, Functional Mobility,Grooming, Dressing,Toileting,Bathing, Toilet Transfers,Shower Transfers,Activity Tolerance Progress Towards Goals Slow Progress due to Pain,Slow Progress due to Medical Issues,Slow Progress due to Activity Tolerance,Slow Progress due to Cognition Assessment Summary Pt on 1L of O2 and now has diagnosis of PNA in addition to recent back sx. When medically stable pt will benefit from skilled rehab. Goals Grooming Goal Standby Assistance Dressing Goal Standby Assistance Toileting Goal Standby Assistance Bathing Goal Minimal Assistance Toilet Transfer Goal Standby Assistance Shower Transfer Goal Minimal Assistance Patient/Caregiver Education Goal Demonstrate Post-Op Precautions,Caregiver Independent Assisting Patient Days to Meet Goals 20 Frequency of Treatment Frequency Of Treatment Once a Day Treatment Plan OT Treatment Plan ADL Training,Functional Cognition Training,Functional Mobility,Patient/Family Education,Discharge Planning Discharge Recommendations OT Discharge Recommendations SNF Rehab Transportation Needs at Discharge Stretcher/Ambulance
--- NOTE | 2019-11-30 10:55 | PT.IPTN ---
Current Diagnoses Other spondylosis with radiculopathy, lumbosacral region (11/26/19) Spinal stenosis, lumbar region without neurogenic claudication (11/26/19) Arthrodesis status (11/26/19) Surgery Performed Operation Date: 11/26/19 07:45 Actual Procedures p L2-3, L3-4 TLIF, L4-S1 HWR, L2-S1 PSF W/ Instrumentation - Kt Escalera MD Physical Therapy Treatment Note M2 PT-IP Current Condition Start: 11/27/19 08:53 Freq: NEEDED Status: Active Protocol: Document 11/27/19 10:15 [facility] (Rec: 11/27/19 12:30 [facility] [id number]) Physical Therapy Current Condition Current Condition Evaluation Date 11/27/19 Treatment Diagnosis L2-5 TLIF Onset Date 11/26/19 Precautions Lumbar Precautions Log Roll,No Twisting,Limit Bending,Lifting Restriction of 10 lbs,Gait Belt above Incisional Area Weight Bearing Status Weight Bearing Status Full Weight Bearing M3 PT-IP Subjective Start: 11/27/19 08:53 Freq: NEEDED Status: Active Protocol: Document 11/30/19 10:20 [facility] (Rec: 11/30/19 11:41 [facility] [id number]) Subjective Physical Therapy Visit Type Type Treatment Note Visit Start Time 10:20 Visit Stop Time 10:55 Total Visit Minutes 35 Notes Co-treat w/ OT, additional assistance provided by RUSTIC TERRAZZO SETTER and legal aide. Number of SEASONAL RETAIL MERCHANDISER Visits 4 Physical Therapy Visit Comments Patient Comments Pt agreeable to work w/ therapy. Therapy Pain Assessment Pain When Pain Assessed During Mobility Pain Present Pain Present Pain Reported Location L thigh Intensity 5 Scale Used Numeric (1 - 10) Description Tender,With Movement Pain Behaviors Calling Out,Facial Grimacing, Guarding,Moaning,Restlessness, Wincing Pain Management Techniques Modification of Treatment lower back Intensity 7 Scale Used Numeric (1 - 10) Pain Behaviors Calling Out,Facial Grimacing, Guarding,Moaning,Restlessness, Wincing Pain Management Techniques Distraction,Modification of Treatment,Re-positioning M4 PT-IP Mobility and Gait Start: 11/27/19 08:53 Freq: NEEDED Status: Active Protocol: Document 11/30/19 10:20 [facility] (Rec: 11/30/19 11:41 [facility] [id number]) PT-Bed Mobility Assessment Rolling Type of Rolling Log Rolling,Roll to Left Level of Assist Maximal Assistance,2 Person Assistance Supine to Sit Supine to Sit Maximum Assistance,2 Person Assistance,Bedrails Sit to Supine Sit to Supine Total Assistance Scooting Scooting to Edge of Bed Maximum Assistance Scooting Up and Down in Bed Dependent PT-Transfer Assessment Sit to and From Stand Sit to and from Stand Maximum Assistance,2 Person Assistance,Use of Upper Extremities Equipment Transfer Assistive Device Front Wheeled Walker Orthotic/Prosthetic Devices or Brace: No Transfers Transfer Destination Bed Transfer Technique Mechanical Lift Transfer Ability Level of Assist Maximum Assistance,Total Assistance,2 Person Assistance ,Use of Upper Extremities Comments Mobility Comments Pt was laying in bed w/ HOB elevated upon arrival from PT and OT. Pt able to recall 3/3 spinal precautions. In preparation for logroll, Max A for bending pts legs up, but pt was resisting. Max A x2-3 for logroll to L side w/ cues to reach across body. Max A x2 -3 for sidelying to sit, and Max A for scooting EOB, w/ support from OT for pt to remain upright. Once sitting EOB, pt was able to hold onto grab bar and side of bed to remain upright. Pt reported 7/10 pain in back and 5/10 pain in L thigh. Pt then agreed to stand for RUSTIC TERRAZZO SETTER to change bedding. Max A x3 and unable to stand on first attempt, Max A x3 for sit<> stand successful on second attempt. Pt stood for ~20 sec while bedding was changed, pt sat back down Mod A x2 w/ cues for slow lowering. After sitting back down, PA entered room and discussed L leg pain w/ pt and palpated LLE, will order ultrasound of LLE. Pt unable to stand again or shift towards top of bed, jade lift to reposition pt in bed. Pt left in bed w/ all needs in reach. BP stable throughout treatment. Gait Assessment Comments Gait Comments Pt unable to ambulate at this time. PT-Balance Assessment Sitting Balance and Reactions Static Sitting Balance Ability Poor Dynamic Sitting Balance Ability Poor Standing Balance and Reactions Static Standing Balance Ability Poor Dynamic Standing Balance Ability Poor Device Used FWW M5 PT-IP Objective Assessments Start: 11/27/19 08:53 Freq: NEEDED Status: Active Protocol: Document 11/27/19 10:15 [facility] (Rec: 11/27/19 12:30 [facility] [id number]) Orientation Orientation/Cognition Level of Alertness Alert Orientation Name,Day of Week,Place, Situation Language Function Ability Word Finding Difficulties Safety Awareness Understands Safety Issues Memory Description No Deficits Noted Gross Range of Motion Lower Extremity ROM Assessment Bilaterally Impaired Strength Lower Extremity Strength Assessment Bilaterally Impaired Hip 3-/5 Knee 3-/5 Ankle 3/5 Sensation Assessment Sensation Gross Sensation Right LE Impaired,Left LE Impaired Light Touch Impaired Proprioception (Position) Impaired Comments Sensation Comments Pt has diabetic neuropathy affecting sensation in bilateral plantar feet M6 PT-IP Treatment Start: 11/27/19 08:53 Freq: NEEDED Status: Active Protocol: Document 11/30/19 10:20 [facility] (Rec: 11/30/19 11:41 [facility] [id number]) Physical Therapy Treatment Education Education Provided Precautions,Safety Other Treatments Other Treatment Performed Pt recalled 3/3 precautions. M7 PT-IP Assessment and Plan Start: 11/27/19 08:53 Freq: NEEDED Status: Active Protocol: Document 11/30/19 10:20 [facility] (Rec: 11/30/19 11:41 [facility] [id number]) PT Summary Assessment and Plan Potential Rehabilitation Potential Poor Status of Condition at Evaluation Evolving Summary Impairments Pain,ROM,Strength,Balance, Sensation,Cognition,Bed Mobility,Transfers,Gait, Activity Tolerance Progress Towards Goals Slow Progress due to Pain,Slow Progress due to Activity Tolerance Assessment Summary Pt reported 7/10 back pain and 5/10 L thigh pain w/ mobility . Max A x2 for logroll to L side w/ cues for reaching across body. Max A x3 for sup< >sit, Max a for scooting EOB, Max A x3 for sit<>stand, successful on second attempt. Mod A x2 for stand<>sit. PA assessed L leg pain, pt reported pn w/ palpation and ordered ultrasound to look for blood clot. Pt unable to stand a second time or scoot laterally in bed, jade lift for repositioning in bed. Pt will need SNF rehab to assess strength and mobility deficits . Goals Bed Mobility Goal Minimal Assistance Transfer Goal Minimal Assistance,Front Wheeled Walker Gait Goal Minimal Assistance,Front Wheel Walker Gait Distance 50 Days to Meet Goals 10 Frequency of Treatment Frequency Of Treatment Twice a Day Treatment Plan Physical Therapy Treatment Plan Bed Mobility Training,Transfer Training,Gait Training, Therapeutic Exercise,Balance Retraining,Post Op Education, Discharge Planning,Hot or Cold Pack,Neuromuscular Re-ed, Coordination Retraining,Manual Therapy Other Recommendations and Next Treatment 3PA bed mobility, sitting Focus balance EOB, standing, standing balance, transfer if able. Recommendations To Nursing Amount of Assist Needed 3 or More Person Assist,PT/OT Assist Only,Mechanical Lift Discharge Recommendations PT Discharge Recommendations SNF Rehab Transportation Needs at Discharge Wheelchair/Cabulance
[2019-11-30 10:58] VITALS: BP 145/77; PULSE 99; RESP 21; TEMP 36.5; O2SAT 94
--- NOTE | 2019-11-30 11:33 | P.PN_ITS ---
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 spinal stenosis) who was admitted on 11/26/2019 after a lumbar fusion with Dr. Escalera. Postoperatively she developed an SHARON that responded to fluids. Today it was reported that patient was confused, and has been demonstrating much anxiety. She has also been hypoxic ranging from 84-92% on 1 L nasal cannula. Medicine was asked to evaluate. Today she denies any complaints of chest pain, shortness of breath, nausea, vomiting, abdominal pain, fevers, chills. She is excited about the possibility of leaving the hospital. She was placed on 1 L nasal cannula, but during my evaluation I shut this off and she was saturating between 93 and 95%. Her chest x-ray did show a bilateral basilar pneumonia, and respiratory panel was positive for rhino virus. She was started on Unasyn for possible pneumonia. Her AST continues to downtrend and she is otherwise doing well. From my perspective she is stable for discharge to detention at this time. Exam Vital Signs (past 8 hours): - 11/30/19 06:12 11/30/19 08:03 11/30/19 09:43 Temperature 96.9 F L 97.7 F Pulse Rate 84 92 H Respiratory Rate 18 18 Blood Pressure 144/73 H 143/80 H 143/80 H Pulse Oximetry 96 98 11/30/19 10:58 Temperature 97.7 F Pulse Rate 99 H Respiratory Rate 21 Blood Pressure 145/77 H Pulse Oximetry 94 Oxygen Delivery Method Room Air,CPAP Oxygen Flow Rate 1 Narrative Exam Narrative: GENERAL APPEARANCE: Obese female, lying flat in hospital bed. Mildly anxious appearing. SKIN: Inspection of the skin reveals no rashes, ulcerations or petechiae. HEENT: The sclerae were anicteric and conjunctivae were pink and moist. Extraocular movements were intact and pupils were equal, round with normal accommodation. External inspection of the ears and nose showed no scars, lesions, or masses. Lips, teeth, and gums showed normal mucosa. The oral mucosa, hard and soft palate, tongue and posterior pharynx were unremarkable. NECK: Supple and symmetric. There was no thyroid enlargement, and no tenderness, or masses were felt. CHEST: Normal AP diameter and normal contour without any kyphoscoliosis. LUNGS: Auscultation of the lungs revealed no wheezes, rhonchi, or rales. CARDIOVASCULAR: There was a regular rate and rhythm without any murmurs, gallops, rubs. Peripheral pulses were 2+ and symmetric. ABDOMEN: Soft and nontender with normal bowel sounds. No ascites was noted. MUSCULOSKELETAL: There was no tenderness or effusions noted. Muscle strength and tone were normal. EXTREMITIES: No cyanosis, clubbing or edema. NEUROLOGIC: Alert and oriented x 3. Normal affect. Diminished strength in right upper and right lower extremity, sensation intact to light touch bilaterally. Objective Labs Result Diagrams: 11/29/19 17:34 11/30/19 06:50 Labs: Laboratory Results - last 24 hr 11/29/19 11/29/19 11/29/19 17:34 17:38 18:48 WBC 12.6 H RBC 3.49 L Hgb 10.5 L Hct 31.6 L MCV 90.7 MCH 30.1 MCHC 33.2 RDW 14.7 Plt Count 258 Neut % (Auto) 94.7 H Lymph % (Auto) 3.0 L [place] % (Auto) 1.8 L Eos % (Auto) 0.1 L Baso % (Auto) 0.4 Neut # (Auto) 48361 H Lymph # (Auto) 400 L [place] # (Auto) 200 Eos # (Auto) 0 Baso # (Auto) 100 VBG pH 7.39 VBG pCO2 36.0 L VBG pO2 140 H VBG HCO3 22 L VBG Total CO2 23 L VBG O2 Saturation 99 H VBG Base Excess -3.0 L Sodium Potassium Chloride Carbon Dioxide BUN Creatinine Estimated GFR BUN/Creatinine Ratio Glucose Calcium Total Bilirubin AST ALT Alkaline Phosphatase Total Protein Albumin Globulin Albumin/Globulin Ratio Urine Color Yellow Urine Appearance Clear Urine pH 6.0 Ur Specific [place] 1.015 Urine Protein 1+ H Urine Glucose (UA) Negative Urine Ketones 1+ H Urine Occult Blood 2+ H Urine Nitrate Negative Urine Bilirubin Negative Urine Urobilinogen 0.2 Ur Leukocyte Esterase Negative Urine RBC 0-1/hpf Urine WBC 0-1/hpf Ur Squamous Epith Cells 0-1 /hpf Urine Bacteria None seen Ur Culture Indicated? Cult not indicated Chlamy pneumoniae PCR Adenovirus (PCR) B.parapertussis DNA PCR Coronavirus OC43 (PCR) Coronavirus HKU1 (PCR) Coronavirus 229E (PCR) Coronavirus NL63 (PCR) Human Metapneumovir PCR Influenza Type A (PCR) Influenza Type B (PCR) M. pneumoniae (PCR) Parainfluenza 1 (PCR) Parainfluenza 2 (PCR) Parainfluenza 3 (PCR) Parainfluenza 4 (PCR) RSV (PCR) Entero/Rhino (PCR) 11/29/19 11/30/19 19:10 06:50 WBC RBC Hgb Hct MCV MCH MCHC RDW Plt Count Neut % (Auto) Lymph % (Auto) [place] % (Auto) Eos % (Auto) Baso % (Auto) Neut # (Auto) Lymph # (Auto) [place] # (Auto) Eos # (Auto) Baso # (Auto) VBG pH VBG pCO2 VBG pO2 VBG HCO3 VBG Total CO2 VBG O2 Saturation VBG Base Excess Sodium 139 Potassium 4.2 Chloride 105 Carbon Dioxide 23 BUN 22 H Creatinine 0.80 Estimated GFR > 60.0 BUN/Creatinine Ratio 27.5 H Glucose 163 H Calcium 9.1 Total Bilirubin 0.5 AST 110 H ALT 26 Alkaline Phosphatase 65 Total Protein 7.0 Albumin 3.4 L Globulin 3.6 Albumin/Globulin Ratio 0.9 L Urine Color Urine Appearance Urine pH Ur Specific [place] Urine Protein Urine Glucose (UA) Urine Ketones Urine Occult Blood Urine Nitrate Urine Bilirubin Urine Urobilinogen Ur Leukocyte Esterase Urine RBC Urine WBC Ur Squamous Epith Cells Urine Bacteria Ur Culture Indicated? Chlamy pneumoniae PCR Not detected Adenovirus (PCR) Not detected B.parapertussis DNA PCR Not detected Coronavirus OC43 (PCR) Not detected Coronavirus HKU1 (PCR) Not detected Coronavirus 229E (PCR) Not detected Coronavirus NL63 (PCR) Not detected Human Metapneumovir PCR Not detected Influenza Type A (PCR) Not detected Influenza Type B (PCR) Not detected M. 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 spinal stenosis) who was admitted on 11/26/2019 after a lumbar fusion with Dr. Escalera. Postoperatively she developed an SHARON that responded to fluids. Today it was reported that patient was confused, and has been demonstrating much anxiety. She has also been hypoxic ranging from 84-92% on 1 L nasal cannula. Medicine wa s asked to evaluate. 1. Toxic metabolic encephalopathy, acute -probably related to pain medication and polypharmacy, however also possible due to pneumonia. -treat pneumonia as noted below for a 7 day course 2. Acute hypoxemic respiratory failure -continue supplemental oxygen as needed, with goal between 88 and 92% given her COPD history. -likely secondary to bibasilar pneumonia, this is possibly bacterial, and given recent surgery will cover for oral anaerobes, however viral panel did return with rhino virus and is possible that this is all a viral pneumonia as well. -upon discharge, patient can take Augmentin 875, twice Daily for an additional 6 days. 3. Elevated AST -unclear etiology but may be transient hypotension in the setting of surgery, or perhaps medication-related. AST was quite elevated at 387 but has down trended to 111. No further evaluation is necessary at this time. 4. Diabetes, type 2, without long-term insulin use -patient is on appropriate sliding scale insulin regimen at this time and metformin. 5. History of CVA -patient's home Plavix is on hold per surgery, continue aspirin 81 mg daily. Decision when to restart Plavix per surgery. Code: Full, surrogate decision maker patient states is daughter. Given evaluation as above, medicine will sign off at this time, patient is medically stable for transfer to detention if desired. Please do not he sitate to contact the hospitalist service with any questions. Quality VTE Deep Vein Thrombosis/Pulmonary Embolism Present on Admission: No
--- NOTE | 2019-11-30 13:44 | CM.DPNOTE ---
DC Note: DC order in place for SNF and pt remains agreeable to [facility]. Reviewed transport need w/RN Angela Barclay, she suggested BLS for monitored pulse oximetry w/continuous O2, pt using 1L nasal cannula today. Pt remains on droplet precautions at for Rhino virus and is unable to ambulate or stand s/p spinal surgery This TAX INTERN completed BLS-medical necessity form, signed by Ortho PHIL Gomez and provided to EVERETT Miller. [facility] Kate arranged BLS for 1400 p/u and transport to [facility], RN an dpt made aware Catia at [facility] updated, and this TAX INTERN faxed completed DC ppk, signed med list and completed PASRR to [facility]. P: DC to [facility] via BLS today KRISTI Caro
--- NOTE | 2019-11-30 13:44 | PM.DS.1 ---
History of Present Illness History of Present Illness Date Patient Seen: 11/30/19 Time Patient Seen: 08:00 Chief complaint: [id number] TLIF Narrative: Indications: Patient has been having chronic back pain and worsening lumbar radiculopathy. Patient had prior fusion surgery with good relief of her pain for over 1 year. Patient had progressive worsening back pain and radiculopathy. Patient failed multiple conservative management with worsening pain weakness and numbness in her lower extremity. Patient has been having difficulty performing activity of daily living. After discussing risks benefits of treatment options, patient elected proceed with surgery. POD #4 s/p lumbar fusion with Dr. Escalera. Patient is more oriented compared to previous day. She is very anxious and in pain when moving. She complains of pain in her lower back and anterior left thigh that has been present since surgery. Her creatinine remains stable. She is being treated with antibiotics for bibasilar pneumonia that is most likely viral in origin. She is using a nelson catheter for voiding She has been ranging from 84-94% on 1 L O2 and has a hx of ABIOLA. Denies fever, chills, chest pain, shortness of breath, numbness, tingling. Discharge Providers Provider Date of admission: 11/26/19 05:56 Discharge Date: 11/30/19 Primary care physician: Erick Cee Consults: 11/26/19 07:09 Consult to Respiratory Therapy Evaluate & Treat Comment: Physician Instructions: Evaluate and treat 11/26/19 16:58 Consult to Occupational Therapy Evaluate & Treat Comment: Physician Instructions: Evaluate and treat Consult to Physical Therapy Evaluate & Treat Comment: Physician Instructions: Evaluate and Treat 11/29/19 16:11 Consult to Hospitalist Service Routine Comment: Consulting Provider: Rafal Price Reason for consultation: low O2, confusion Has provider been notified: Yes Discharge provider: Shanta Gomes PA-C Summary Hospital Course Discharge Diagnosis: s/p L2-S1 TLIF with L4-S1 HWR pneumonia likely secondary to viral infection acute kidney injury diabetes mellitus type 2 chronic obstructive pulmonary disease sleep apnea epistaxis depression mild anemia back pain cervical strain stroke chest pain cerebral vascular accident dysarthria migraine hypertension hyperlipidemia morbid obesity urinary tract infection cardiomegaly neuropathy - feet bilaterally concussion osteopenia Hospital Course: Patient admitted to hospital s/p L2-S1 TLIF with L4-S1 HWR with Dr. Escalera. POD#4 patient was medically stable for discharge to SNF. Hospital course notable for acute kidney injury, toxic metabolic encephalopathy (related to pain medication and polypharmacy, however also possible due to pneumonia), acute hypoxemic respiratory failure likely secondary to pneumonia. Consulted hospitalist service for management of multiple problems. Patient mobilized poorly with PT prior to discharge, 3 person assist/mechanical lift. Patient is voiding with assistance of a nelson catheter. Pain is being managed with dilaudid and gabapentin. ASA 81mg once a day for DVT prophylaxis. Status at Discharge Cognitive/behavioral status at discharge: oriented Functional status at discharge: bed bound Overall status at discharge: patient is progressing back to baseline Time Spent with Patient Time spent: Less than 30 minutes Exam Vital Signs (past 8 hours): - 11/30/19 06:12 11/30/19 08:03 11/30/19 09:43 Temperature 96.9 F L 97.7 F Pulse Rate 84 92 H Respiratory Rate 18 18 Blood Pressure 144/73 H 143/80 H 143/80 H Pulse Oximetry 96 98 11/30/19 10:58 Temperature 97.7 F Pulse Rate 99 H Respiratory Rate 21 Blood Pressure 145/77 H Pulse Oximetry 94 Oxygen Delivery Method Room Air,CPAP Oxygen Flow Rate 1 Narrative Exam Narrative: 69 year old female is sitting in bed, in mild distress. A&Ox3. Dressing CDI, nelson catheter in place. Able to actively plantar flex/dorsiflex BL. Sensory function grossly intact to light touch in LE BL. Dorsalis pedis 2+ BL. L calf - positive diony sign, R calf warm, soft, compressible, nttp. Objective Labs Result Diagrams: 11/29/19 17:34 11/30/19 06:50 Labs: Laboratory Results - last 24 hr 11/29/19 11/29/19 11/29/19 17:34 17:38 18:48 WBC 12.6 H RBC 3.49 L Hgb 10.5 L Hct 31.6 L MCV 90.7 MCH 30.1 MCHC 33.2 RDW 14.7 Plt Count 258 Neut % (Auto) 94.7 H Lymph % (Auto) 3.0 L Kerr % (Auto) 1.8 L Eos % (Auto) 0.1 L Baso % (Auto) 0.4 Neut # (Auto) 55604 H Lymph # (Auto) 400 L Kerr # (Auto) 200 Eos # (Auto) 0 Baso # (Auto) 100 VBG pH 7.39 VBG pCO2 36.0 L VBG pO2 140 H VBG HCO3 22 L VBG Total CO2 23 L VBG O2 Saturation 99 H VBG Base Excess -3.0 L Sodium Potassium Chloride Carbon Dioxide BUN Creatinine Estimated GFR BUN/Creatinine Ratio Glucose Calcium Total Bilirubin AST ALT Alkaline Phosphatase Total Protein Albumin Globulin Albumin/Globulin Ratio Urine Color Yellow Urine Appearance Clear Urine pH 6.0 Ur Specific [place] 1.015 Urine Protein 1+ H Urine Glucose (UA) Negative Urine Ketones 1+ H Urine Occult Blood 2+ H Urine Nitrate Negative Urine Bilirubin Negative Urine Urobilinogen 0.2 Ur Leukocyte Esterase Negative Urine RBC 0-1/hpf Urine WBC 0-1/hpf Ur Squamous Epith Cells 0-1 /hpf Urine Bacteria None seen Ur Culture Indicated? Cult not indicated Chlamy pneumoniae PCR Adenovirus (PCR) B.parapertussis DNA PCR Coronavirus OC43 (PCR) Coronavirus HKU1 (PCR) Coronavirus 229E (PCR) Coronavirus NL63 (PCR) Human Metapneumovir PCR Influenza Type A (PCR) Influenza Type B (PCR) M. pneumoniae (PCR) Parainfluenza 1 (PCR) Parainfluenza 2 (PCR) Parainfluenza 3 (PCR) Parainfluenza 4 (PCR) RSV (PCR) Entero/Rhino (PCR) 11/29/19 11/30/19 19:10 06:50 WBC RBC Hgb Hct MCV MCH MCHC RDW Plt Count Neut % (Auto) Lymph % (Auto) Kerr % (Auto) Eos % (Auto) Baso % (Auto) Neut # (Auto) Lymph # (Auto) Kerr # (Auto) Eos # (Auto) Baso # (Auto) VBG pH VBG pCO2 VBG pO2 VBG HCO3 VBG Total CO2 VBG O2 Saturation VBG Base Excess Sodium 139 Potassium 4.2 Chloride 105 Carbon Dioxide 23 BUN 22 H Creatinine 0.80 Estimated GFR > 60.0 BUN/Creatinine Ratio 27.5 H Glucose 163 H Calcium 9.1 Total Bilirubin 0.5 AST 110 H ALT 26 Alkaline Phosphatase 65 Total Protein 7.0 Albumin 3.4 L Globulin 3.6 Albumin/Globulin Ratio 0.9 L Urine Color Urine Appearance Urine pH Ur Specific [place] Urine Protein Urine Glucose (UA) Urine Ketones Urine Occult Blood Urine Nitrate Urine Bilirubin Urine Urobilinogen Ur Leukocyte Esterase Urine RBC Urine WBC Ur Squamous Epith Cells Urine Bacteria Ur Culture Indicated? Chlamy pneumoniae PCR Not detected Adenovirus (PCR) Not detected B.parapertussis DNA PCR Not detected Coronavirus OC43 (PCR) Not detected Coronavirus HKU1 (PCR) Not detected Coronavirus 229E (PCR) Not detected Coronavirus NL63 (PCR) Not detected Human Metapneumovir PCR Not detected Influenza Type A (PCR) Not detected Influenza Type B (PCR) Not detected M. pneumoniae (PCR) Not detected Parainfluenza 1 (PCR) Not detected Parainfluenza 2 (PCR) Not detected Parainfluenza 3 (PCR) Not detected Parainfluenza 4 (PCR) Not detected RSV (PCR) Not detected Entero/Rhino (PCR) Detected H Discharge Plan Discharge Plan Patient Disposition: SNF Consult as needed: Dental, Hearing, Mental health, Podiatry and Vision Discharge orders & Medications Prescriptions: New acetaminophen 325 mg Tablet 650 mg PO Q6HR PRN (Reason: Pain, Mild (1-3)) Qty: 60 RF: 0 aspirin 81 mg Tablet,Delayed Release (Dr/Ec) 81 mg PO DAILY Qty: 60 RF: 0 hydroxyzine pamoate 25 mg Capsule 25 mg PO Q4HR PRN (Reason: Nausea And Vomiting) Qty: 30 RF: 0 hydromorphone 2 mg Tablet 2 mg PO Q3H PRN (Reason: Pain, Moderate (4-6)) Qty: 30 RF: 0 amoxicillin-pot clavulanate [Augmentin] 875-125 mg tablet 1 tab PO BID Qty: 12 RF: 0 Continued fenofibrate 54 MG tablet 54 mg PO BEDTIME Qty: 0 RF: 0 oxycodone 5 mg Tablet 5 mg PO Q8H PRN (Reason: Pain) RF: 0 metformin 500 mg Tablet 1,000 mg PO BID RF: 0 gabapentin 600 mg tablet 600 mg PO TID PRN (Reason: pain) RF: 0 trazodone 150 mg tablet 150 mg PO BEDTIME RF: 0 verapamil 80 mg tablet 80 mg PO BID RF: 0 bupropion HCl 300 mg tablet extended release 24 hr 300 mg PO DAILY RF: 0 sumatriptan succinate [Imitrex] 6 mg/0.5 mL Solution 6 mg subcut Q2H PRN (Reason: Headache) Qty: 30 RF: 0 Discontinued clopidogrel [Plavix] 75 MG tablet 75 mg PO DAILY Qty: 0 RF: 0 Follow up/Referrals: Erick Cee [Primary Care Provider] - Kt Escalera MD [Physician] - Discharge Health Status Precautions: Droplet Diet/Activity/Treatments Diet: Carb-consistent/Diabetic Liquid consistency: Normal/Thin Food texture: Regular Activity: no excessive bending, lifting, twisting Cold/Heat Therapy: continue cold therapy Oxygen: 1L O2 NC Other treatments: Treat with augmentin 875mg PO BID x 6 days for pneumonia Skin/Wound/Dressing Care Report to your healthcare provider any signs of infection, such as:: chills, fever, increased pain, unusual drainage and unusual redness Dressing: keep dressing dry. change dressing as needed Special Rehabilitation Services Reason for rehabilitation: Post-operative therapy Rehab type: Physical therapy and Occupational therapy Visit Report/Discharge Packet Instructions: DI for Prescription Opioid Use, DI for Transforaminal Lumbar Interbody Fusion Stand Alone Forms: Surgery Discharge Discharge Data Primary Care Provider: Erick Cee Quality VTE Deep Vein Thrombosis/Pulmonary Embolism Present on Admission: No
--- NOTE | 2019-11-30 15:46 | PC.NURSE ---
Transfer: Pt transfered to [facility]. Report called to Molly admitting nurse. Reviewed hospital course, surgical procedure, nelson placed 11/26/19, no bm x5 days. Max assist for all adl's. Positive for pneumonia and cold and has been in droplet precautions. Reviewed skin condition and pt has a coversite dressing in place. Pt has been to weak to get up. Requires O2 at this time and sats are 90-93%. Does use and have her own bipap. Questions anwsered. Pt transfered via s transport.
--- NOTE | 2019-12-03 11:33 | CM.DPC ---
DCP Cont: Faxed discharge summary to [facility] at fax # [phone]. Fax confirmation scanned in. Kate Fernandez, [facility] Can Tester
== END 2019-11-30 14:00 | DRG 453 ==
PROVIDERS: Internal Medicine; Physician Assistant Surgical; Admitting Provider Orthopaedic Surgery Orthopaedic Surgery of the Spine; PCP Physician Assistant Medical; Referring Provider Family Medicine; Visit Provider Orthopaedic Surgery Orthopaedic Surgery of the Spine
PROC: 0SG10AJ Fusion of 2 or more Lumbar Vertebral Joints with Interbody Fusion Device, Posterior Approach, Anterior Column, Open Approach (ICD-10-PCS; principal; 2019-11-26 07:45)
DX: M48.062 Spinal stenosis, lumbar region with neurogenic claudication (principal); G93.41 Metabolic encephalopathy; J96.01 Acute respiratory failure with hypoxia; J12.89 Other viral pneumonia; G92 Toxic encephalopathy; N17.9 Acute kidney failure, unspecified; I69.951 Hemiplegia and hemiparesis following unspecified cerebrovascular disease affecting right dominant side; Z68.41 Body mass index [BMI] 40.0-44.9, adult; G97.41 Accidental puncture or laceration of dura during a procedure; J44.0 Chronic obstructive pulmonary disease with (acute) lower respiratory infection; M96.0 Pseudarthrosis after fusion or arthrodesis; R74.0 Nonspecific elevation of levels of transaminase and lactic acid dehydrogenase [LDH]; I51.7 Cardiomegaly; E66.01 Morbid (severe) obesity due to excess calories; T40.605A Adverse effect of unspecified narcotics, initial encounter; B97.89 Other viral agents as the cause of diseases classified elsewhere; G47.33 Obstructive sleep apnea (adult) (pediatric); E11.9 Type 2 diabetes mellitus without complications; F32.9 Major depressive disorder, single episode, unspecified; E78.5 Hyperlipidemia, unspecified; F41.9 Anxiety disorder, unspecified; M47.26 Other spondylosis with radiculopathy, lumbar region; M48.07 Spinal stenosis, lumbosacral region; M47.27 Other spondylosis with radiculopathy, lumbosacral region; Z98.1 Arthrodesis status; Z79.84 Long term (current) use of oral hypoglycemic drugs
CPT/HCPCS: 36415; 71045; 72100; 76000; 80053; 81001; 82805; 82962; 85014; 85018; 85025; 85027; 87633; 93971; 94760; 94762; 97110; 97162; 97165; 97530; 97535; C1776; C9290; J0295; J0330; J0690; J1100; J1170; J2405; J2704

== ENCOUNTER 2019-12-21 05:43 | Inpatient (IN) | payer MEDICARE, MEDICAID, SELFPAY ==
[2019-11-26 16:58] VITALS: BMI 43.2
[2019-12-21] VITALS (17 sets, daily range): BP systolic 102–141; BP diastolic 44–78; PULSE 84–100; RESP 10–24; TEMP 35.9–37.1; O2SAT 93–99; BMI 43.6
[2019-12-21] MEDS: LACTATED RINGERS 1,000 ML 42 ML IV (07:56)
--- NOTE | 2019-12-21 07:56 | P.HP_ITS ---
History of Present Illness History of Present Illness Date Patient Seen: 12/21/19 Time Patient Seen: 07:58 Chief complaint: [id number] LUMBAR WOUND I&D Narrative: Ms. Desai is here for urgent wound irrigation and debridement post lumbar fusion surgery. She has been in a senior living facility since discharge. There is history of wound issues post first lumbar surgery. She is morbidly obese, has limited mobility and has diabetes, all of which puts her at high risk for developing wound issues and delayed healing, as well as other medical complications. I saw the patient yesterday in clinic. She has developed a large area of skin necrosis at and around her two incisions in her lumbar spine. There is serous drainage from the right sided incision and no drainage from the left. Both incisions has some dehiscience due to the abbey no longer holding her necrotic skin edges. She is 3 weeks post surgery. I suspect she at least has superficial wound infection due to her dehiscience. I am concerned the infection may involve her deep wound below the level of fascia if it spreads. I discussed my concern with the patient and her family. I recommended urgent surgery for irrigation and debridement and exploration of her wound. I discussed risks and benefits of surgery and operative consent was obtained. She may need a wound vac placement due to the size of her wound and poor skin vascularity for closure. She may also require multiple repeat I&D due to the size of her wound. Patient History Medical History (Updated 10/29/19 @ 10:32 by Naomy Bridges RN) Acute kidney injury (Acute ~12/2018) Cardiomegaly (Acute) Depression with anxiety (Chronic) Easy bruisability (Acute) History of concussion (Acute) History of recurrent TIAs (Acute) History of stroke (Resolved) Hyperlipidemia associated with type 2 diabetes mellitus (Chronic) Hypothyroid (Acute) Migraine (Chronic) Morbid obesity with BMI of 45.0-49.9, adult (Chronic) Neuropathy (Acute) ABIOLA on CPAP (Acute) Osteopenia (Acute) Polyneuropathy (Acute) Radiculopathy (Acute) Type 2 diabetes mellitus (Chronic) Vitamin D deficiency (Acute) Surgical History (Updated 10/29/19 @ 10:43 by Naomy Bridges RN) History of 3 sections (Acute) History of lumbar spinal fusion (Acute 06/27/17) History of spinal surgery (Resolved) History of ventral hernia repair (Inactive) Hx of umbilical hernia repair (Acute) S/P cholecystectomy (Inactive) S/P trigger finger release (Inactive) Family & Social History Social History: household members none Prior Living Arrangements Skilled Nurse Facility Tobacco & Substance use: Smoking Status Never smoker alcohol intake never alcohol intake frequency 0-2 drinks per day Substance Use Type does not use Meds Home Medications and Allergies Home Medications Medication Instructions Recorded Confirmed Type fenofibrate 54 mg PO BEDTIME #0 06/15/17 11/26/19 History metformin 1,000 mg PO BID 02/02/18 11/26/19 History gabapentin 600 mg PO TID PRN 04/19/18 11/26/19 History bupropion HCl 300 mg PO DAILY 10/25/18 11/26/19 History trazodone 150 mg PO BEDTIME 10/25/18 11/26/19 History verapamil 80 mg PO BID 10/25/18 11/26/19 History sumatriptan succinate [Imitrex] 6 mg SUBCUT Q2H PRN #30 ml 01/07/19 11/26/19 Rx oxycodone 5 mg PO Q8H PRN 10/29/19 11/26/19 History acetaminophen 650 mg PO Q6HR PRN #60 tab 11/30/19 Rx amoxicillin-pot clavulanate 1 tab PO BID #12 tab 11/30/19 Rx [Augmentin] aspirin 81 mg PO DAILY #60 tab 11/30/19 Rx hydromorphone 2 mg PO Q3H PRN #30 tab 11/30/19 Rx hydroxyzine pamoate 25 mg PO Q4HR PRN #30 cap 11/30/19 Rx Allergies Allergy/AdvReac Type Severity Reaction Status Date / Time vancomycin Allergy Intermediate Flushing & Verified 12/21/19 07:18 rash Exam Vital Signs (past 8 hours): - 12/21/19 07:21 Temperature 97.8 F Pulse Rate 90 Respiratory Rate 18 Blood Pressure 117/67 Pulse Oximetry 96 Oxygen Delivery Method Room Air Back/Spine/Pelvis Other: On exam to her lumbar spine, both incisions have delayed healing with dehiscience. The skin edges of both incisions and the skin between the incisions shows pale color and lack of normal coloration concerned for necrosis. Right sides wound has serous drainage with foul odor. Left sided wound has area of dehiscience without drainage. Neuro Other: Neurologically intact on exam without deficit. Moving all extremities with full strength and intact sensibility bilateral LE. Assessment & Plan Assessment & Plan narrative: 3 weeks post fusion surgery. Delayed wound healing, skin necrosis, at least superficial wound infection. Plan for urgent lumbar wound I&D and exploration, possible wound vac placement. May need repeat I&D.
--- NOTE | 2019-12-21 08:05 | SUR.PREOP ---
Unable to update med list as patient is not sure what she takes and did not come with a list. Physician aware.
[2019-12-21] MEDS: CEFAZOLIN 2 GM/100 ML FROZ.PIGGY IV ×2 (08:07→16:46)
--- NOTE | 2019-12-21 08:54 | SUR.OPER ---
pt presents with large skin tear on right lower buttock that extends from lower buttock cheek crease to mid inner thigh running longitudinally, pt also presents with a small skin tear on lower right flank.
[2019-12-21] MEDS: SODIUM CHLORIDE IRRIG SOLUTION 3,000 ML, GENTAMICIN 240 MG IRR (09:13)
[2019-12-21] MEDS: HYDROMORPHONE 2 MG INJ IV ×3 (10:16→10:42)
--- NOTE | 2019-12-21 10:18 | PM.OP.1 ---
Operative Date/Time/Diagnoses Date of procedure: 12/21/19 Time of procedure: 08:18 Pre-op diagnosis: 1. Lumbar wound dehiscience 2. Lumbar wound infection Post-op diagnosis: same Procedure & Clinicians Procedure: 1. Lumbar wound irrigation and debridement of skin, muscle and bone 2. Wound vac placement. Same procedure as scheduled: Yes Indications: Ms. Desai is 3 weeks post lumbar fusion. She was seen yesterday in clinic for post up follow up. Her wound appears to be draining, dehiscienced, and with area of skin necrosis. I discussed with her my findings and recommended urgent surgery for debridement and possible wound vac placement. Surgeon: Kt Escalera Click Yes if Unassisted: Yes Anesthesia Type: General Operative Notes Closure Type: primary Specimen(s): none sent Prosthetic devices, grafts, tissues, transplants, or devices: Wound vac placement Applied: drain(s) Estimated Blood Loss (mL): 20 Blood products transfused: none Procedure in detail: Patient was seen in the preoperative area. Risks and benefits of the surgery was discussed with the patient. Informed consent was obtained from the patient and placed in the chart. Surgical site was marked. Patient was taken to the operative room. General anesthesia was administered. Prophylactic antibiotic was given to the patient less than 30 min before the incision was made. Patient was placed into a prone position on the Arnel table. Patient's back was then prepped and draped in the sterile fashion. Time-out was performed at this time. Patient's remaining suture was removed on the right side. The wound has seroma in the subcutanenous that has about 50 cc of fluid collection. The fascia was explored next. There is an one inch area of fascia defect that extends down. Wound culture was taken at this time below the fascia in the deep wound. The skin edges was excised along with necrotic muscle and unhealthy appearing bone from spinous process. The mid-section of skin between the two incisions was gradually debrided. It was determined the entire mid-section of skin between her two incisions was necrotic. The skin along with some subcuatenous fat was excised until bleeding vascular tissue was encountered. We now have one continuous wound. The left sided incision was explored. The fascia is intact on the left. There is small amount of serous fluid in the subcutanous layer on the left sided wound. Both sides of the wound was irrigated copiously with sterile normal saline with gentamicin using the pulse-lavage. After initial irrigation with 3 L, additional debridement was performed by excising additional unhealthy appearing tissue until bleeding vascular tissue was encountered on all edges of the wound. Another 3 L of sterile normal saline with gentamicin was used to irrigate the wound again at this time. At this time the wound is clean and without any visible unhealthy appearing tissue on all edges from skin down to fascia. #1 PDS suture was used to close the deep fascia defect as well as and deep subcutanous wound. The wound was dried. Wound vac sponge was placed after trimming to fit the wound. The sealing adhesive was placed in layers to cover the wound. The suction tubing was then placed onto the wound. The wound was then tested to show intact and good seal. The tubing was then attached to the wound vac machine. The machine was set to intermitent on 125 mmHg. I plan to bring the patient back in two days for repeat I&D and wound vac exchange. Patient will be admitted to inpatient hospital and placed on IV antibiotics. Complications: none Post-operative Condition: stable Disposition: PACU Plan for aftercare: Admit to inpatient hospital
[2019-12-21] MEDS: OXYCODONE IR 5 MG TABLET PO ×3 (10:29→18:04)
--- NOTE | 2019-12-21 11:54 | SUR.PREOP ---
Patient came in to preop with dressing to back C/D/I, but skin breakdown noted to bottom and right inner thigh. Also came in with nelson catheter that appeared unclean and murky in tubing. Patient taken up to room after PACU in good condition with all belongings. Report given to receiving RN and notified receiving RN of patient's skin condition and catheter. Receiving RN took photos with wound care camera, placed new nelson, and notified fiberglass boat assembly supervisor of skin and nelson condition. Patient left in good condition with receiving RN at bedside.
--- NOTE | 2019-12-21 13:55 | OT.IPNOTE ---
Spoke to pt regarding doing OT eval, pt states would rather rest as just have sx in the AM. Therefore OT to check on pt tomorrow for OT eval.
--- NOTE | 2019-12-21 13:58 | PC.NURSE ---
Assess- Patient to floor around 1125. She has a wound vac on to lower back incision with large yellow dressing in place. Wound vac is set to continuous suction, and it reads 125mm of suction. Patient came from [facility] for surgery. She has multiple skin issues. Patient has an unstageable pressure injury with slough (white/yellow) to distal portion of wound. With a linear red line going from upper buttocks to inner rocio area. There is also a darker spot to r.inner buttocks that is a darker color. Patient also has a pressure area to vaginal labia area that is red, with maceration to outer labia. Area's are raw and red. There is a foam allevyn dressing now covering the sloughed area of this wound. Patient had a nelson catheter that was put in November 25 or , it had not been changed and shows signs of bacteria in port of nelson. U/A obtained for c&s. New nelson put in, and orders for nystatin to be applied to patients labia and vaginal area. Called for these orders and he also wanted a wound consult ordered with DR. Naidu as patient is expected to discharge next week and Dr. Escalera is not sure yet if he will able to close up wound by that time. He asks that if needed patient can get in out patient to have the wound vac changed. Patient is comfortable at this time, Wound vac with bloody colored drainage in chamber. She denies pain. Rocio Care done earlier and ivf will be infusing. Turns to her side with help of staff and turning the bed, she is A&Ox3. Patient is obese, states that she is able to get up with assistance and walker if needed. She is also diabetic and her BS at lunch was 115.
--- NOTE | 2019-12-21 14:29 | CM.IDA ---
Initial DCP Assessment Note: Pt is a 69 yo female, resident of [place]. Pt is admitted for I+D of spinal wound PCP: Erick Cee Payer: AKUA/RYAN According to PIPE ORGAN TECHNICIAN Keesha and EVERETT Kirkpatrick; pt arrived to w/multiple skin issues. She has multiple sites of skin breakdown and had developed large area of skin necrosis at and around her two incision sights. See notes for detail. Pt was admitted in early November for spinal surgery w/ Dr Escalera and had DC to [facility]; she was in the OR this AM w/ Dr Escalera for I+D. According to chart review of prior notes, pt lives in an apt in [place], her dtr lives in the same apt complex. Pt has ERIKA cgs through [facility] M-F 05-30. Pt names her dtr Gabbie as her DPOA, also named is sister Jerry, she lives in [place], [place]. Met w/pt to explain SW role. Pt was somewhat tearful throughout the visit, she confirmed that she had been at [facility] since her last DC from , she enjoyed the therapy team and said they attempted to move her when able, keeping in mind spinal precautions. Pt admits she told staff at [facility] when she first arrived that it was extremely painful for her to move at all in the bed. Pt further explains that [facility] staff did not attempt to turn her in bed for approx 5 days. Pt says she had her nelson cath placed at and it had not been changed since that time; she understands from nursing staff today that there are a number of areas of skin over her entire body that have required cleaning and extra care/barrier care today. Pt is very pleasant and soft spoken today, she admits she does not want to return to [facility] and does not want to DC to [facility]. She is open to [facility] rehab but would like this TERRA COTTA ROOFER to communicate w/her dtr re: DCP APS report made by this TERRA COTTA ROOFER via telephone re: summary of above , used details shared from patient, used clinical information from chart. Screened, no confirmation # at this time. [place] [facility] [place] Gabbie. KRISTI Caro Discharge Planning/Care Management CM Discharge Assessment Start: 12/21/19 14:20 Freq: Status: Active Protocol: Document 12/21/19 14:20 JESSICA (Rec: 12/21/19 14:28 JESSICA [id number]) Discharge Planning Assessment Assigned Manager Customer Service KRISTI Gamez DPOA/Assigned Designee Name Gabbie tyrone Roberson Contact Information [phone] Advance Directives? Yes Advance Directives on File Yes History Provided By Patient,Medical Record Prior Living Arrangements Skilled Nurse Facility Household Members none Facility Name Admitted From: [facility] () Willing to Return to Facility? No Independent with ADL's No Is patient alert and oriented? Yes Needs Assistance With Bathing,Grooming,Meal Prep, Toileting,Managing Medications ,Home Chores / Shopping Community Services used prior to Home Health Nurse admission: Comment uses 4ww Name of Agency [facility] Comment M-F 9-4 Patient/Family Preference Nursing Home Facility Discharge Plan Nursing Home Facility Medicare Choice List Provided Yes SNF/HH Preference Patient states she does not want to return to [facility] or go to [facility]. She is okay with [facility]. This TERRA COTTA ROOFER has permission from patient to discuss b/u SNF options w/dtr Gabbie by phone Whiteboard Updated in Patient Room with Yes name and ext. # of Manager Customer Service Review Status In Process
[2019-12-21] MEDS: SODIUM CHLORIDE 0.9% 1,000 ML 100 ML IV (14:30)
--- NOTE | 2019-12-21 16:09 | PT-IP ANOTE ---
checked on pt for PT eval. pt stated that it is better to do it tomorrow as she still feels very fuzzy and groggy from the surgery this morning. will f/u on pt tomorrow.
[2019-12-21] MEDS: VERAPAMIL 80 MG TABLET PO (20:55)
[2019-12-21] MEDS: TRAZODONE 50 MG TABLET 150 MG PO (20:55)
[2019-12-21] MEDS: DOCUSATE 100 MG CAPSULE PO (20:56)
[2019-12-21] MEDS: NYSTATIN POWDER 15GM 1 APPLIC TOP (20:56)
[2019-12-21] MEDS: METFORMIN HCL 500 MG TABLET 1000 MG PO (20:56)
[2019-12-21] MEDS: SENNOSIDES 8.6 MG TABLET 17.2 MG PO (20:56)
[2019-12-21] MEDS: FENOFIBRATE 48 MG TABLET PO (20:56)
[2019-12-22] VITALS (7 sets, daily range): BP systolic 97–112; BP diastolic 52–63; PULSE 78–89; RESP 15–18; TEMP 36–36.9; O2SAT 89–97
[2019-12-22] MEDS: CEFAZOLIN 2 GM/100 ML FROZ.PIGGY IV (00:29)
[2019-12-22] MEDS: OXYCODONE IR 5 MG TABLET PO ×5 (00:55→20:03)
[2019-12-22] MEDS: SODIUM CHLORIDE 0.9% 1,000 ML 100 ML IV (01:41)
[2019-12-22 05:51] LABS: Hematocrit 28.5 % (36-46); Hemoglobin 9.4 g/dL (12.0-16.0)
[2019-12-22] MEDS: buPROPion XL 150 MG TAB 300 MG PO (08:46)
[2019-12-22] MEDS: ASPIRIN EC 81 MG TABLET PO (08:46)
[2019-12-22] MEDS: METFORMIN HCL 500 MG TABLET 1000 MG PO ×2 (08:46→20:29)
[2019-12-22] MEDS: VERAPAMIL 80 MG TABLET PO (08:46)
[2019-12-22] MEDS: DOCUSATE 100 MG CAPSULE PO ×2 (08:46→20:29)
--- NOTE | 2019-12-22 09:23 | PM.PNPO.1 ---
Subjective Subjective Date Patient Seen: 12/22/19 Time Patient Seen: 09:23 Interval history: Postoperative day 1. I and D lumbar spine wound postop by Dr. Escalera. Complaining of mild back discomfort moderate leg discomfort. She has developed a significant pressure ulcer on the left lower extremity and in the vaginal area due to of Jesus catheter and this is now being monitored and cared for by the wound care team. Exam Vital Signs (past 8 hours): - 12/22/19 05:00 12/22/19 08:00 Temperature 97.2 F L 96.8 F L Pulse Rate 84 79 Respiratory Rate 18 16 Blood Pressure 101/52 L 112/55 L Pulse Oximetry 94 97 Oxygen Delivery Method Room Air Oxygen Flow Rate 0 Narrative Exam Narrative: Patient is awake alert oriented and conversant in no obvious distress lying in the hospital bed. Distal neurovascular examination is grossly intact Objective Labs Result Diagrams: 12/22/19 05:30 Labs: Laboratory Results - last 24 hr 12/22/19 05:30 Hgb 9.4 L Hct 28.5 L Assessment & Plan Post-op Postoperative Procedures: Procedures Operation Date: 12/21/19 07:45 Actual Procedures Side Surgeon p Lumbar wound I&D with wound vac placement Kt Escalera MD Operation Date: 12/23/19 09:00 <No data on this case meets the specified criteria> Postoperative day: 1 Postoperative status narrative: Postop day 1 I and D lumbar spine wound postop infection. Additional problem of pressure ulcers secondary to Jesus catheter. Plan per Dr. Escalera is return to OR tomorrow for repeat I&D. Postoperative plan: routine post-op care and see orders
--- NOTE | 2019-12-22 10:52 | PT.IIE ---
Current Diagnoses Urinary tract infection, site not specified (12/21/19) Disruption of external operation (surgical) wound, not elsewhere classified, initial encounter (12/21/19) Arthrodesis status (12/21/19) Surgery Performed Operation Date: 12/21/19 07:45 Actual Procedures p Lumbar wound I&D with wound vac placement - Kt Escalera MD Operation Date: 12/23/19 09:00 <No data on this case meets the specified criteria> Surgical History (Last Updated 10/29/19 @ 10:43 by Naomy Bridges RN) History of 3 sections (Acute) History of lumbar spinal fusion (Acute 06/27/17) History of spinal surgery (Resolved) History of ventral hernia repair (Inactive) Hx of umbilical hernia repair (Acute) S/P cholecystectomy (Inactive) S/P trigger finger release (Inactive) Medical History (Last Updated 10/29/19 @ 10:32 by Naomy Bridges RN) Acute kidney injury (Acute ~12/2018) Cardiomegaly (Acute) Depression with anxiety (Chronic) Easy bruisability (Acute) History of concussion (Acute) History of recurrent TIAs (Acute) History of stroke (Resolved) Hyperlipidemia associated with type 2 diabetes mellitus (Chronic) Hypothyroid (Acute) Migraine (Chronic) Morbid obesity with BMI of 45.0-49.9, adult (Chronic) Neuropathy (Acute) ABIOLA on CPAP (Acute) Osteopenia (Acute) Polyneuropathy (Acute) Radiculopathy (Acute) Type 2 diabetes mellitus (Chronic) Vitamin D deficiency (Acute) Physical Therapy Inpatient Evaluation/Re-Eval M1 PT/OT-IP Prior Functional Status Start: 12/22/19 12:46 Freq: NEEDED Status: Active Protocol: Document 12/22/19 10:52 AB (Rec: 12/22/19 13:04 AB [id number]) Medical Review Prior Functional Status Medical History Reviewed Yes Communication able to make needs known Mobility and Gait pt stated that prior to back surgery, she was modified independent with all mobilities and ambulation using a 4WW indoors but uses a manual w/c for outdoor/ long distance mobility with her grandson wheeling her. Prior Functional Level (Other details) pt had a lumbar fusion ~ 3weeks ago and discharged to SNF. pt stated that she was not ambulating when she was at SNF and just transferrring using a FWW. Social History Household Members none Living Arrangements Apartment/Condo Number of Floors (Floors) One Floor Number of Stairs To Enter/Railing? pt lives on a first floor apartment Home Environment High Toilet,Tub/Shower Home Equipment Four Wheel Walker,Manual Wheelchair,Tub Transfer Bench, Hand Held Shower,Grab Bars Near Toilet,Grab Bars In Shower Additional Social History Comment pt stated that she has a caregiver that comes in M through F from 9am to 4pm. daughter lives on the same apartment complex. M2 PT-IP Current Condition Start: 12/22/19 12:46 Freq: NEEDED Status: Active Protocol: Document 12/22/19 10:52 AB (Rec: 12/22/19 13:04 AB [id number]) Physical Therapy Current Condition Current Condition Evaluation Date 12/22/19 Treatment Diagnosis s/p lumbar wound I&D; difficulty in walking Onset Date 12/21/2019 Precautions Lumbar Precautions Log Roll,No Twisting,Limit Bending,Lifting Restriction of 10 lbs,Gait Belt above Incisional Area M3 PT-IP Subjective Start: 12/22/19 12:46 Freq: NEEDED Status: Active Protocol: Document 12/22/19 10:52 AB (Rec: 12/22/19 13:04 AB [id number]) Subjective Physical Therapy Visit Type Type Initial Evaluation Visit Start Time 10:52 Visit Stop Time 12:40 Total Visit Minutes 36 Notes pt seen for split visits: 1052am to 1105 and 1217pm to 1240 pm. pt had to have picc line put on Physical Therapy Visit Comments Patient Comments agreeable to do PT Therapy Pain Assessment Pain When Pain Assessed At Rest Pain Present Pain Present Pain Reported Location lower back Intensity 6 Scale Used Numeric (1 - 10) Description Spasm Pain Behaviors Crying,Guarding,Wincing Pain Management Techniques Distraction,Modification of Treatment,Re-positioning, Timing of Activity with Medications M4 PT-IP Mobility and Gait Start: 12/22/19 12:46 Freq: NEEDED Status: Active Protocol: Document 12/22/19 10:52 AB (Rec: 12/22/19 13:04 AB [id number]) PT-Bed Mobility Assessment Rolling Type of Rolling Log Rolling Level of Assist Maximal Assistance,2 Person Assistance Supine to Sit Supine to Sit Maximum Assistance,2 Person Assistance,Bedrails Scooting Scooting to Edge of Bed Maximum Assistance PT-Transfer Assessment Sit to and From Stand Sit to and from Stand Maximum Assistance,2 Person Assistance,Use of Upper Extremities Equipment Transfer Assistive Device Front Wheeled Walker Orthotic/Prosthetic Devices or Brace: No Transfers Transfer Destination Chair Transfer Technique using FWW Transfer Ability Level of Assist Moderate Assistance,2 Person Assistance,Use of Upper Extremities Comments Mobility Comments pt completed log roll supine to sit max A x 2 and max cues. pt was able to sit on EOB min A with increase posterior trunk lean but able to maintain SBA to min A after positioning. pt completed sit to stand but has to pull on FWW to get up with PT/OT stabilizing the FWW max A x 2 and max cues. pt was able to take a few steps using FWW mod A x 2 and requested to sit down on the chair. positioned pt on the chair. call light and table placed within reach. Gait Assessment Gait Gait Assistance Required: Moderate Assistance,2 Person Assist Distance (Feet) 2 Able to Maintain Weight Bearing Status No During Gait Assistive Devices Assistive Device Gait Belt,Front Wheeled Walker Orthotic/Prosthetic Devices or Brace: No Gait Deviations General Gait Pattern Antalgic,Decreased Stride Length,Decreased Feet Clearance,Step-to Gait Factors Limiting Gait Function Factors Limiting Gait Function Decreased Activity Tolerance, Decreased Sensation,Decreased Strength,Difficulty Following Directions,Limited Range of Motion,Pain,Poor Balance,Poor Safety Awareness Comments Gait Comments pls refer to mobility section for details PT-Balance Assessment Sitting Balance and Reactions Static Sitting Balance Ability Fair Dynamic Sitting Balance Ability Poor Standing Balance and Reactions Static Standing Balance Ability Poor Dynamic Standing Balance Ability Poor Device Used FWW M5 PT-IP Objective Assessments Start: 12/22/19 12:46 Freq: NEEDED Status: Active Protocol: Document 12/22/19 10:52 AB (Rec: 12/22/19 13:04 AB [id number]) Orientation Orientation/Cognition Level of Alertness Alert Orientation Name,Place,Situation Language Function Ability Hard of Hearing Safety Awareness Decreased Safety Awareness Memory Description Short Term Impaired Gross Range of Motion Lower Extremity ROM Assessment Within Functional Limits Strength Lower Extremity Strength Assessment Bilaterally Impaired Comments Strength Comments RLE : 3+/5 LLE: 3-/5 to 3/5 Sensation Assessment Sensation Gross Sensation Right LE Impaired,Left LE Impaired Light Touch Impaired Proprioception (Position) Impaired Sensation Description Numbness Comments Sensation Comments pt has neuropathy on B feet Muscle Tone Muscle Tone WNL No M6 PT-IP Treatment Start: 12/22/19 12:46 Freq: NEEDED Status: Active Protocol: Document 12/22/19 10:52 AB (Rec: 12/22/19 13:04 AB [id number]) Physical Therapy Treatment Education Education Provided Precautions,Safety M7 PT-IP Assessment and Plan Start: 12/22/19 12:46 Freq: NEEDED Status: Active Protocol: Document 12/22/19 10:52 AB (Rec: 12/22/19 13:04 AB [id number]) PT Summary Assessment and Plan Potential Rehabilitation Potential Good Status of Condition at Evaluation Evolving Summary Impairments Pain,ROM,Strength,Balance, Coordination,Sensation,Tone, Cognition,Bed Mobility, Transfers,Gait,Activity Tolerance Assessment Summary pt requiring 2 person mod to max A with mobilities. pt plans to undergo another lumbar I&D per MD note. pt will require SNF rehab to improve strength and functional mobility. Goals Bed Mobility Goal Moderate Assistance Transfer Goal Moderate Assistance,Front Wheeled Walker Gait Goal Moderate Assistance,Front Wheel Walker Gait Distance 50 Days to Meet Goals 10 Frequency of Treatment Frequency Of Treatment Twice a Day Treatment Plan Physical Therapy Treatment Plan Bed Mobility Training,Transfer Training,Gait Training, Therapeutic Exercise,Balance Retraining,Post Op Education, Discharge Planning,Hot or Cold Pack,Neuromuscular Re-ed, Coordination Retraining,Manual Therapy Other Recommendations and Next Treatment transfers, ambulation Focus Recommendations To Nursing Amount of Assist Needed 2 Person Assist Discharge Recommendations PT Discharge Recommendations SNF Rehab Transportation Needs at Discharge Wheelchair/Cabulance
--- NOTE | 2019-12-22 11:14 | PC.NURSE ---
Precision RN here at bedside to place PICC line as ordered. Will continue to follow.
--- NOTE | 2019-12-22 11:28 | CM.DPNOTE ---
DCP Cont Attempted to reach pt's dtr Gabbie again this AM; had to . Faxed SNF referral to [facility] w/pt's permission. Completed PASRR P: DC expected to SNF; referrals sent and awaiting f/u from SNFs and pt/family re: choice Pt may require BLS for transport. UPWARD BOUND DIRECTOR team following closely KRISTI Caro
--- NOTE | 2019-12-22 11:31 | PC.NURSE ---
LATE ENTRY: THIS RN WAS FLOAT NURSE YESTERDAY AND ASSISTED WITH OBTAINING PHOTOS AND TALKING TO DR. SINGLETON DURING HIS CONSULT. DISCUSSED PATTERN OF SKIN BREAKDOWN WHICH WAS LINEAR, AND DR. SINGLETON AGREED THAT THE PATTERN AND LOCATION APPEARED TO BE A MECHANICAL PRESSURE INJURY DUE TO GONSALEZ CATHETER. CONSIDERED UNSTAGEABLE ADHERENT SLOUGH OBSCURES WOUND BASE. HE DISCUSSED THAT HIS PLAN IS FOR MEDI-HONEY TO GENTLY DEBRIDE AND ALLEVYN BOARDER FOAM DRSG. PRIMARY NURSE AWARE.
--- NOTE | 2019-12-22 11:43 | DI.RAD.S_ITS ---
PROCEDURE: XR CHEST FOR PICC 1V INDICATIONS: PICC LINE PLACEMENT COMPARISON: [facility], CR, XR CHEST 1V, 11/29/2019, 16:54. FINDINGS: PICC was placed by the intravenous therapy team from the left side. A single image demonstrates the tip of PICC projecting to the area of superior aspect of the superior vena cava, 4-5 cm above the cavoatrial junction. Overlying the left arm, the PICC line is coiled. Diffuse interstitial prominence is seen. The heart size is mildly enlarged. Age-appropriate bony degenerative changes are seen. Lumbar spine postoperative changes are partially seen. IMPRESSION: Tip of PICC projects to the area of the tip of the left-sided PICC line is seen overlying the superior aspect of the superior vena cava. The PICC line is coiled overlying the left arm. Please correlate whether this is inside the patient out of the patient. Interstitial prominence is seen throughout. The interstitial prominence is nonspecific, yet may be related to pulmonary edema. Dictated by: David Winchester M.D. on 12/22/2019 at 11:17 Approved by: David Winchester M.D. on 12/22/2019 at 11:20
[2019-12-22] MEDS: ACETAMINOPHEN 325 MG TABLET 650 MG PO ×2 (12:19→20:29)
--- NOTE | 2019-12-22 12:57 | PM.PN.1 ---
Exam Vital Signs (past 8 hours): - 12/22/19 05:00 12/22/19 08:00 12/22/19 12:53 Temperature 97.2 F L 96.8 F L 98.4 F Pulse Rate 84 79 89 Respiratory Rate 18 16 16 Blood Pressure 101/52 L 112/55 L 109/63 Pulse Oximetry 94 97 89 L Oxygen Delivery Method Room Air Oxygen Flow Rate 0 Objective Labs Result Diagrams: 12/22/19 05:30 Labs: Laboratory Results - last 24 hr 12/22/19 05:30 Hgb 9.4 L Hct 28.5 L Assessment & Plan Assessment & Plan narrative: Patient is POD#1 s/p I&D of lumbar wound and wound vac placement. Patient's back dressing is intact with no leak on machine. Patient is comfortable and neuro intact on exam. Will bring patient back tomorrow for repeat I&D and vac exchange vs closure. Continue IV antibiotics following culture results. PICC line consult placed, patient will need at least 6 weeks of IV antibiotics.
--- NOTE | 2019-12-22 13:17 | OT.IP.EVAL ---
Current Diagnoses Urinary tract infection, site not specified (12/21/19) Disruption of external operation (surgical) wound, not elsewhere classified, initial encounter (12/21/19) Arthrodesis status (12/21/19) Surgery Performed Operation Date: 12/21/19 07:45 Actual Procedures p Lumbar wound I&D with wound vac placement - Kt Escalera MD Operation Date: 12/23/19 09:00 <No data on this case meets the specified criteria> Past Medical History (Last Updated 10/29/19 @ 10:32 by Naomy Bridges RN) Acute kidney injury (Acute ~12/2018) Cardiomegaly (Acute) Depression with anxiety (Chronic) Easy bruisability (Acute) History of concussion (Acute) History of recurrent TIAs (Acute) History of stroke (Resolved) Hyperlipidemia associated with type 2 diabetes mellitus (Chronic) Hypothyroid (Acute) Migraine (Chronic) Morbid obesity with BMI of 45.0-49.9, adult (Chronic) Neuropathy (Acute) ABIOLA on CPAP (Acute) Osteopenia (Acute) Polyneuropathy (Acute) Radiculopathy (Acute) Type 2 diabetes mellitus (Chronic) Vitamin D deficiency (Acute) Surgical History (Last Updated 10/29/19 @ 10:43 by Naomy Bridges RN) History of 3 sections (Acute) History of lumbar spinal fusion (Acute 06/27/17) History of spinal surgery (Resolved) History of ventral hernia repair (Inactive) Hx of umbilical hernia repair (Acute) S/P cholecystectomy (Inactive) S/P trigger finger release (Inactive) Occupational Therapy Inpatient Evaluation/Re-Eval M1 PT/OT-IP Prior Functional Status Start: 12/22/19 12:46 Freq: NEEDED Status: Active Protocol: Document 12/22/19 12:53 CGR (Rec: 12/22/19 13:17 CGR [id number]) Medical Review Prior Functional Status Medical History Reviewed Yes Communication Pt is an effective verbal communicator. Mobility and Gait Pt was able to stand and transfer to a w/c from her bed while at SNF (last 3 weeks since hospitalization). Prior to that Pt was using a 4WW for mobility in the home and a manual w/c for community distances. Activities of Daily Living and IADL's Pt needed SBA for bathing and showering. Pt recieves meals on wheels and makes oatmeal for breakfast. Pt has a shift mgr that comes in Tuesday - Tuesday from 800 - 1600 for ADLs and cleaning and driving. Prior Functional Level (Other details) Pt's daughter lives in the same apartment complex and checks on her daily. Social History Household Members none Living Arrangements Apartment/Condo Number of Floors (Floors) One Floor Number of Stairs To Enter/Railing? Level entry Home Environment High Toilet,Tub/Shower Home Equipment Four Wheel Walker,Manual Wheelchair,Tub Transfer Bench, Grab Bars In Shower Employment Status Unemployed Additional Social History Comment Pt came from SNF but lives in an apartment prior to original sx on 11/26/19. M2 OT-IP Current Condition Start: 12/22/19 12:53 Freq: Status: Active Protocol: Document 12/22/19 12:53 CGR (Rec: 12/22/19 13:17 CGR [id number]) Occupational Therapy Current Condition Current Condition Evaluation Date 12/22/19 Treatment Diagnosis I&D of the back Diagnosis Onset Date 12/21/19 Post Operative Precautions Lumbar Precautions Log Roll,No Twisting,Limit Bending,Lifting Restriction of 10 lbs,Gait Belt above Incisional Area M3 OT- IP Subjective and Pain Start: 12/22/19 12:53 Freq: Status: Active Protocol: Document 12/22/19 12:53 CGR (Rec: 12/22/19 13:17 CGR [id number]) OT- Subjective Occupational Therapy Visit Type Type Initial Evaluation Visit Start Time 12:15 Visit Stop Time 12:45 Total Visit Minutes 40 Notes Started session earlier in the day [id number]. Partial co- treat with P.T. Occupational Therapy Visit Comments Patient Comments None stated OT Pain Assessment Pain When Pain Assessed During Mobility Pain Present Pain Present Pain Reported Location lower back Intensity 6 Scale Used Numeric (1 - 10) Management Techniques Distraction,Modification of Treatment,Timing of Activity with Medications M4 OT- IP ADL's Start: 12/22/19 12:53 Freq: Status: Active Protocol: Document 12/22/19 12:53 CGR (Rec: 12/22/19 13:17 CGR [id number]) OT MWF-Rmwl-Rakmplm General Evaluation Self-Feeding Ability Independent Areas Needing Assistance Drinking From Cup/Glass, Opening Containers Comments OT Self-Feeding Comments Pt eating soup at end of session. OT ADL-Grooming General Evaluation Grooming Ability Standby Assistance Areas Needing Assistance Retrieving/Set-up of Grooming Items,Face Washing Comments OT Grooming Comments washed face while still in bed OT ADL-Oral Care Comments Oral Care Comments Not performed in this session. OT ADL-Dressing General Eval Lower Body Dressing Ability Total Assistance Areas Needing Assistance Socks Comments OT Dressing Comments Pt needed total assist for donning socks. OT ADL-Toileting Comments OT Toileting Comments Pt with nelson. OT ADL-Bathing Comments OT Bathing Comments Not performed in this session. M5 OT- IP IADL's Start: 12/22/19 12:53 Freq: Status: Active Protocol: Document 12/22/19 12:53 CGR (Rec: 12/22/19 13:17 CGR [id number]) OT-Instrumental Activities of Daily Living Deficits IADL Deficits Identified Deficits Home Safety Awareness Awareness of Need for Assistance at Home Good Awareness Ability to Problem Solve Emergency Able to Problem Solve Situations Medication Management Medication Management No Deficits Identified Money Management Money Management No Deficits Identified Meal Preparation Meal Preparation Caregiver Provides Assist Bar Steward Bar Steward Caregiver Provides Assist Driving Driving Caregiver Provides Assist M6 OT- IP Functional Cognition Start: 12/22/19 12:53 Freq: Status: Active Protocol: Document 12/22/19 12:53 CGR (Rec: 12/22/19 13:17 CGR [id number]) Cognitive Factors Limiting Selfcare Function Cognitive Ability Level of Alertness Alert Patient Orientation Name,Age,Birthday,Month,Date, Year,Day of Week,Place, Situation Attention Span Ability Capable of Focused Attention, Capable of Sustained Attention Ability to Follow Commands Able to Follow Multi-Step Commands Memory Description No Deficits Noted Cognitive Comments Cognitive Assessment Comments Pt appears cognitively intact. OT- Vision and Hearing OT- Hearing Assessment OT- Hearing Assessment WFL OT- Vision Assessment Visual Acuity Glasses All The Time Visual Attentiveness WFL Occular Pursuits WFL Visual Convergence WFL Vision Assessment Comments Pt wears trifocals all of the time but her sister took them home when she went in for sx. M7 OT- IP Mobility and Balance Start: 12/22/19 12:53 Freq: Status: Active Protocol: Document 12/22/19 12:53 CGR (Rec: 12/22/19 13:17 CGR [id number]) OT- Bed Mobility Assessment Rolling Type of Rolling Log Rolling,Roll to Left Level of Assistance Maximum Assistance,2 Person Assistance,Bedrails Supine to Sit Supine to Sit Assist Maximum Assistance,2 Person Assistance,Bedrails Scooting Scooting to Edge of Bed Maximum Assistance,2 Person Assistance,Bedrails OT-Transfer Assessment Sit to and From Stand Sit to and from Stand Maximum Assistance,2 Person Assistance Transfers Transfer Ability Maximum Assistance,2 Person Assistance Technique Transfer Destination Bed,Chair Transfer Technique Stand Step Pivot Devices Transfer Assistive Devices Gait Belt,Front Wheeled Walker OT- Gait Assessment Gait Gait Assistance Required: Moderate Assistance,2 Person Assist Assistive Devices Assistive Device Gait Belt,Front Wheeled Walker Comments Gait Ability Comments ~5 steps with turn to chair. L side is weaker but no knee buckling noted. OT- Balance Assessment Sitting Balance and Reactions Static Sitting Balance Ability Fair M8 OT- IP Objective Assessments Start: 12/22/19 12:53 Freq: Status: Active Protocol: Document 12/22/19 12:53 CGR (Rec: 12/22/19 13:17 CGR [id number]) OT Gross Range of Motion Upper Extremity Range of Motion Assessment Bilaterally Impaired ROM Impairments B shld 0-45 OT Strength Upper Extremity Strength Assessment Within Functional Limits Comments Strength Comments grossly 4/5 OT- Coordination Assessment Upper Extremity Finger to Nose Test Within Functional Limits Finger Tapping Test Within Functional Limits OT-Muscle Tone Assessment Muscle Tone WNL Yes OT Sensation Assessment Location Right Upper Extremity Light Touch Intact/Normal Edema Edema Absent M9 OT- IP Assessment and Plan Start: 12/22/19 12:53 Freq: Status: Active Protocol: Document 12/22/19 12:53 CGR (Rec: 12/22/19 13:17 CGR [id number]) OT Summary Assessment and Plan Potential Rehabilitation Potential Good Analytic Complexity at Evaluation Moderate Summary OT Impairments Pain,Range of Motion,Strength, Balance,Functional Mobility, Grooming,Dressing,Toileting, Bathing,Toilet Transfers, Shower Transfers,Activity Tolerance Progress Towards Goals Slow Progress due to Pain,Slow Progress due to Medical Issues Assessment Summary Pt presents as a mod complexity evaulation s/p I&D of a recent (11/26/19) lumbar sx . Per report, pt entered this facitlity with pressure ulcers and need of I&D to the back sx site. Pt participated well with therapy on this date reporting 6/10 pain but agreeable to perform movement and activity. Pt states she feels better sitting up but doesn't know how long she can stand for. Pt will need SNF upon discharge. Per chart, pt is planned for second I&D 12/22 . Pt will benefit from OT services while hospitalized. Goals Grooming Goal Independent Dressing Goal Independent,Long Handled Shoe Horn,Pepper Picker,Sock Aid Toileting Goal Independent Bathing Goal Standby Assistance,Grab Bars Toilet Transfer Goal Independent,Grab Bars Shower Transfer Goal Standby Assistance,Tub/Shower Combination,Tub Transfer Bench ,Grab Bars Days to Meet Goals 15 Frequency of Treatment Frequency Of Treatment Once a Day Treatment Plan OT Treatment Plan ADL Training,Functional Mobility,Patient/Family Education,Discharge Planning Other Treatment Recommendations and Next ADLs seated at sink Treatment Focus Discharge Recommendations OT Discharge Recommendations SNF Rehab Home Equipment Needs TBD Transportation Needs at Discharge Wheelchair/Cabulance
--- NOTE | 2019-12-22 13:38 | PT.IPTN ---
Current Diagnoses Urinary tract infection, site not specified (12/21/19) Disruption of external operation (surgical) wound, not elsewhere classified, initial encounter (12/21/19) Arthrodesis status (12/21/19) Surgery Performed Operation Date: 12/21/19 07:45 Actual Procedures p Lumbar wound I&D with wound vac placement - Kt Escalera MD Operation Date: 12/23/19 09:00 <No data on this case meets the specified criteria> Physical Therapy Treatment Note M2 PT-IP Current Condition Start: 12/22/19 12:46 Freq: NEEDED Status: Active Protocol: Document 12/22/19 10:52 AB (Rec: 12/22/19 13:04 AB [id number]) Physical Therapy Current Condition Current Condition Evaluation Date 12/22/19 Treatment Diagnosis s/p lumbar wound I&D; difficulty in walking Onset Date 12/21/2019 Precautions Lumbar Precautions Log Roll,No Twisting,Limit Bending,Lifting Restriction of 10 lbs,Gait Belt above Incisional Area M3 PT-IP Subjective Start: 12/22/19 12:46 Freq: NEEDED Status: Active Protocol: Document 12/22/19 13:38 AB (Rec: 12/22/19 14:17 AB [id number]) Subjective Physical Therapy Visit Type Type Treatment Note Visit Start Time 13:38 Visit Stop Time 13:51 Total Visit Minutes 13 Number of ASSOCIATE PROFESSOR OF BIOSTATISTICS Visits 0 Physical Therapy Visit Comments Patient Comments pt requesting to go back to bed Therapy Pain Assessment Pain When Pain Assessed At Rest Pain Present Pain Present Pain Reported Location lower back Intensity 6 Scale Used Numeric (1 - 10) Pain Management Techniques Re-positioning,Timing of Activity with Medications M4 PT-IP Mobility and Gait Start: 12/22/19 12:46 Freq: NEEDED Status: Active Protocol: Document 12/22/19 13:38 AB (Rec: 12/22/19 14:17 AB [id number]) PT-Bed Mobility Assessment Rolling Type of Rolling Log Rolling Level of Assist Maximal Assistance,2 Person Assistance Sit to Supine Sit to Supine Maximum Assistance,2 Person Assistance,Bedrails Scooting Scooting to Edge of Bed Maximum Assistance PT-Transfer Assessment Sit to and From Stand Sit to and from Stand Moderate Assistance,Maximum Assistance,1 Person Assistance ,Use of Upper Extremities Equipment Transfer Assistive Device Gait Belt,Front Wheeled Walker Orthotic/Prosthetic Devices or Brace: No Transfers Transfer Destination Bed Transfer Technique Stand Step Pivot Transfer Ability Level of Assist Moderate Assistance,Maximum Assistance,1 Person Assistance ,Use of Upper Extremities Comments Mobility Comments pt requesting to go back to bed. completed sit to stand from chair mod to max A and max cues. pt was able to take steps using FWW mod to max A towards the bed. completed sit to supine max Ax 2and max cues. positioned pt in bed. pt has to be cleaned up and nurse stated that she has to change pt's dressing. Left pt with NAC. Gait Assessment Gait Gait Assistance Required: Moderate Assistance,Maximum Assistance Distance (Feet) 2 Able to Maintain Weight Bearing Status Yes During Gait Assistive Devices Assistive Device Gait Belt,Front Wheeled Walker Gait Deviations General Gait Pattern Antalgic,Decreased Stride Length,Decreased Feet Clearance Factors Limiting Gait Function Factors Limiting Gait Function Decreased Activity Tolerance, Decreased Sensation,Decreased Strength,Limited Range of Motion,Pain,Poor Balance Comments Gait Comments able to take steps during transfers M5 PT-IP Objective Assessments Start: 12/22/19 12:46 Freq: NEEDED Status: Active Protocol: Document 12/22/19 10:52 AB (Rec: 12/22/19 13:04 AB [id number]) Orientation Orientation/Cognition Level of Alertness Alert Orientation Name,Place,Situation Language Function Ability Hard of Hearing Safety Awareness Decreased Safety Awareness Memory Description Short Term Impaired Gross Range of Motion Lower Extremity ROM Assessment Within Functional Limits Strength Lower Extremity Strength Assessment Bilaterally Impaired Comments Strength Comments RLE : 3+/5 LLE: 3-/5 to 3/5 Sensation Assessment Sensation Gross Sensation Right LE Impaired,Left LE Impaired Light Touch Impaired Proprioception (Position) Impaired Sensation Description Numbness Comments Sensation Comments pt has neuropathy on B feet Muscle Tone Muscle Tone WNL No M6 PT-IP Treatment Start: 12/22/19 12:46 Freq: NEEDED Status: Active Protocol: Document 12/22/19 13:38 AB (Rec: 12/22/19 14:17 AB [id number]) Physical Therapy Treatment Education Education Provided Safety M7 PT-IP Assessment and Plan Start: 12/22/19 12:46 Freq: NEEDED Status: Active Protocol: Document 12/22/19 13:38 AB (Rec: 12/22/19 14:17 AB [id number]) PT Summary Assessment and Plan Potential Rehabilitation Potential Good Summary Impairments Pain,ROM,Strength,Balance, Coordination,Sensation,Tone, Cognition,Bed Mobility, Transfers,Gait,Activity Tolerance Progress Towards Goals Slow Progress due to Medical Issues Assessment Summary pt requiring mod to max A with transfers and needed max A x 2 for bed mobility. pt is scheduled to have another I&D on lumbar wound tomorrow morning and have to re-assess mobility. At this time, pt will require SNF rehab to improve strength, activity tolerance and mobility independence. Goals Bed Mobility Goal Moderate Assistance Transfer Goal Moderate Assistance,Front Wheeled Walker Gait Goal Moderate Assistance,Front Wheel Walker Gait Distance 50 Days to Meet Goals 10 Frequency of Treatment Frequency Of Treatment Twice a Day Treatment Plan Physical Therapy Treatment Plan Bed Mobility Training,Transfer Training,Gait Training, Therapeutic Exercise,Balance Retraining,Post Op Education, Discharge Planning,Hot or Cold Pack,Neuromuscular Re-ed, Coordination Retraining,Manual Therapy Other Recommendations and Next Treatment transfers, ambulation Focus Recommendations To Nursing Amount of Assist Needed 2 Person Assist Discharge Recommendations PT Discharge Recommendations SNF Rehab Transportation Needs at Discharge Wheelchair/Cabulance
[2019-12-22] MEDS: PIPERACILLIN-TAZO 3.375 GM/50 ML FROZ.PIGGY IV ×2 (13:45→20:28)
--- NOTE | 2019-12-22 15:41 | PC.NURSE ---
Shift summary: Picc line place by precision RN, patient tolerated well. Patient worked with PT and was up to chair today with 2 assist and walker. Wound vac remains in place draining bloody fluid in wound vac (total of 150ml in vac since placement noted), continuous therapy at 125mm hg in place. Jesus in place and draining, intact. Jesus is secured to left leg with elastic strap and readjusted and checked every 2 hours with repositioning. Turn and reposition every 2 hours as ordered. Wound to right inner thigh (POA) cleansed and dressing changed as ordered due to saturation today. Labia and rocio area excoriated, frequent rocio care provided with protective cream in use. Call light within reach, patient able to call for needs. Bed alarm active for safety. Anticipate surgery tomorrow as scheduled, keep NPO at midnight.
[2019-12-22] MEDS: SENNOSIDES 8.6 MG TABLET 17.2 MG PO (20:29)
[2019-12-22] MEDS: TRAZODONE 50 MG TABLET 150 MG PO (20:29)
[2019-12-22] MEDS: FENOFIBRATE 48 MG TABLET PO (20:30)
[2019-12-22] MEDS: SODIUM CHLORIDE 0.9% FLUSH 10 ML IV (20:30)
[2019-12-23] VITALS (15 sets, daily range): BP systolic 83–146; BP diastolic 57–77; PULSE 82–103; RESP 10–19; TEMP 36.2–37.2; O2SAT 92–100; BMI 43.6
[2019-12-23] MEDS: PIPERACILLIN-TAZO 3.375 GM/50 ML FROZ.PIGGY IV ×2 (01:25→08:47)
[2019-12-23] MEDS: OXYCODONE IR 5 MG TABLET PO ×4 (01:43→18:53)
--- NOTE | 2019-12-23 08:44 | PC.NURSE ---
Patient states she did not eat or drink anything overnight. Resting in bed, vss. Wound vac in place and intact. Jesus in place and intact. Patient repositioned and foot scd's in place. Patient picked up by BIG DATA PLATFORM ARCHITECT for procedure. Morning antibiotics sent with patient.
[2019-12-23] MEDS: LACTATED RINGERS 1,000 ML 42 ML IV (08:47)
--- NOTE | 2019-12-23 09:08 | PM.OP.1 ---
Operative Date/Time/Diagnoses Date of procedure: 12/23/19 Time of procedure: 09:08 Pre-op diagnosis: 1. Lumbar wound infection 2. Lumbar wound dehiscience with skin necrosis Post-op diagnosis: same Procedure & Clinicians Procedure: 1. Lumbar wound irrigation and debridement of skin, muscle and fascia and bone 2. Partial wound closure and wound vac placement Same procedure as scheduled: Yes Indications: Ms. Desai is here for repeat I&D of her lumbar wound. She is 3 weeks post lumbar fusion surgery. She was s/p I&D 2 days ago and wound vac placement. She is being brought back for scheduled repeat I&D. Surgeon: Kt Escalera Click Yes if Unassisted: Yes Anesthesia Type: General Operative Notes Closure Type: primary Specimen(s): none sent Prosthetic devices, grafts, tissues, transplants, or devices: Wound vac Applied: drain(s) Estimated Blood Loss (mL): 20 Procedure in detail: Patient was seen in the preoperative area. Risks and benefits of the surgery was discussed with the patient. Informed consent was obtained from the patient and placed in the chart. Surgical site was marked. Patient was taken to the operative room. General anesthesia was administered. Prophylactic antibiotic was given to the patient less than 30 min before the incision was made. Patient was placed into a prone position on the Arnel table. Patient's back was then prepped and draped in the sterile fashion. Time-out was performed at this time. Patient's previously placed wound VAC was removed prior to prepping. The wound was explored. All skin edges as well as the subcutaneous layer was vascular and had viable tissue on the edges. The fascia was explored next. Some of the previously placed fascial suture was removed since it has become loose. Deep wound was explored. Additional unhealthy appearing tissue was removed from the deep wound using Leksell rongeur which consisted of muscle and bone tissue. The skin along with some subcuatenous fat was excised until bleeding vascular tissue was encountered. The wound was irrigated copiously with sterile normal saline with gentamicin using the pulse-lavage. After initial irrigation with 3 L, additional debridement was performed by excising additional unhealthy appearing tissue until bleeding vascular tissue was encountered on all edges of the wound. Another 3 L of sterile normal saline with gentamicin was used to irrigate the wound again at this time. At this time the wound is clean and without any visible unhealthy appearing tissue on all edges from skin down to fascia. #1 PDS suture was used to close the deep fascia defect as well as and deep subcutanous wound. Partial closure of the wound was performed by performing vertical mattress suture. The left side of the wound was closed all the way to near the midline of patient's back. Additional vertical mattress suture was placed on the caudal and some right-sided skin edges to decrease size of the wound. The wound was dried. Wound vac sponge was placed after trimming to fit the wound. A significantly smaller sponge was placed into the wound after partial closure. Concurrently the size of wound is less than half of what it was. The sealing adhesive was placed in layers to cover the wound. The suction tubing was then placed onto the wound. The wound was then tested to show intact and good seal. The tubing was then attached to the wound vac machine. The machine was set to intermitent on 125 mmHg. I plan to bring the patient back in three days for repeat I&D and wound vac exchange versus attempted closure. Complications: none Post-operative Condition: stable Disposition: PACU Plan for aftercare: Admit to inpatient hospital
--- NOTE | 2019-12-23 09:41 | SUR.OPER ---
sore on right buttock running longitudinally from right buttock crease to inner thigh near perineum. Pressure sore on lower right flank and redness in sacral area. Small skin tear in between buttock crack sacral area.
[2019-12-23] MEDS: SODIUM CHLORIDE IRRIG SOLUTION 3,000 ML, GENTAMICIN 240 MG IRR (09:53)
--- NOTE | 2019-12-23 10:43 | CM.DPC ---
Addendum entered by KRISTI Muñoz 12/23/19 12:55: ADD: Return call from pt's Dtr Gabbie confirming that she does not want pt to return to [facility] and she is working to report their concerns to [facility]. SW discussed that pt had been agreeable with referral to [facility] and Dtr is agreeable with this. Although Dtr inquired about pt's ability to return home with HH and sister Jerry staying with pt rather than SNF and pt discussed PT current recommendation and pt's still needing 2PA. Dtr was agreeable with having two plans for discharge of SNF vs home with HH pending pt's progress. SW discussed that if pt improves then PT would likely set up CG training with pt's sister to confirm that home would be safe. Dtr states pt's sister Jerry was planning to return to [place] once pt improved at SNF but now plans to stay longer if needed. SW provided the HH Choice List via phone to Dtr and preference is [facility]. SW made referral to [facility] and faxed clinicals as a back up plan if pt progresses and is safe for home with HH and sister to stay. Plan: SW to continue to follow for [facility] and referral sent to [facility] as back up if pt improves while admitted. KRISTI Muñoz Original Note: DCP SNF Planning: Per MD, pt scheduled to have another I&D today. Per RN, pt currently off floor this morning in OR for procedure as of 1000. Per previous SW note, new SNF referrals sent to [facility] per pt preference as she does not wish to return to [facility] due to poor care and declines going to [facility]. MALA called [facility] with admissions at 0930 requesting call back regarding their review and if they feel they can accept pt at d/c. MALA called [facility] and spoke to w/e admissions Arianne who states they currently have a few open female beds but that February will need to review pt's Medicare coverage days and review pt's clinicals in the morning to determine if they can accept. MALA attempted to call pt's Dtr Gabbie per pt's request yesterday to update on SNF referrals and d/c plan and SW had to leave msg on her vm requesting call back to further discuss d/c planning needs. Plan: SW to follow closely for return call from both [facility] and pt's Dtr Gabbie to solidify d/c plan of SNF when stable and final review from [facility] tomorrow Tuesday morning. KRISTI Muñoz
--- NOTE | 2019-12-23 11:06 | PT-IP ANOTE ---
Pt off floor for repeat I&D this morning. If staffing allows, will follow up with pt for afternoon treatment.
[2019-12-23] MEDS: fentaNYL 100 MCG/2 ML INJ IV ×2 (11:07→11:22)
[2019-12-23] MEDS: HYDROMORPHONE 2 MG INJ IV (11:39)
--- NOTE | 2019-12-23 12:17 | SUR.PHASEI ---
Patient taken back to room with all belongings. Report given to receiving RN Uri. Patient repositioned for comfort and left in good condition with receiving RN at bedside
[2019-12-23] MEDS: CEFTRIAXONE 2 GM/50 ML FROZ.PIGGY IV (13:00)
[2019-12-23] MEDS: HYDROMORPHONE 0.5 MG INJ 0.2 MG IV ×2 (13:00→16:56)
[2019-12-23] MEDS: SODIUM CHLORIDE 0.9% FLUSH 10 ML IV (13:00)
[2019-12-23] MEDS: SODIUM CHLORIDE 0.9% 1,000 ML 100 ML IV ×2 (14:23→22:38)
[2019-12-23] MEDS: METFORMIN HCL 500 MG TABLET 1000 MG PO (16:56)
--- NOTE | 2019-12-23 17:57 | PC.NURSE ---
Addendum entered by Jennifer Coronado R.N. 12/23/19 22:31: Wound vac continues as per Dr. Escalera's initiation. Cannister with moderate amount serousang fluid. Resting quietly in bed with eyes closed without signs of distress or discomfort. Head of bed slightly elevated with cpap mask available to pt. Call light within pt's reach. Original Note: Pt awake, alert resting quietly in bed. Reports using I.S. to 1500 x 10 breaths every hour while awake. Wound vac settings as per Dr. Escalera. Wound vac connections intact. Dressing to back is intact as able to see with pt's limited movement/mobility in bed. Jesus to gravity. Allevyn gentle border dressing intact to right inner upper thigh. BL calf scd's in place. Admits to full sensation to BL LE's. Denies nausea. States pain 6/10 following oxycodone administration. Administered iv dilaudid as ordered to manage pain with good results. CPAP available and within pt's reach.
[2019-12-23] MEDS: GABAPENTIN 600 MG TABLET PO (18:51)
[2019-12-23] MEDS: ACETAMINOPHEN 325 MG TABLET 650 MG PO (18:51)
[2019-12-23] MEDS: hydrOXYzine pamoate 25 MG CAPSULE PO (20:19)
[2019-12-23] MEDS: FENOFIBRATE 48 MG TABLET PO (20:19)
[2019-12-23] MEDS: SENNOSIDES 8.6 MG TABLET 17.2 MG PO (20:20)
[2019-12-23] MEDS: DOCUSATE 100 MG CAPSULE PO (20:21)
[2019-12-24] VITALS (7 sets, daily range): BP systolic 122–151; BP diastolic 62–76; PULSE 82–98; RESP 16–18; TEMP 36.5–37.1; O2SAT 93–95
[2019-12-24] MEDS: HYDROMORPHONE 0.5 MG INJ 0.2 MG IV (03:00)
--- NOTE | 2019-12-24 03:23 | PC.NURSE ---
Addendum entered by Maria Alejandra Higgins R.N. 12/24/19 05:29: Complains of 6/10 sharp back pain exacerbated by movement; medicated with Oxycodone. Has slept most of shift. Original Note: Patient is alert and oriented. Breath sounds CTA with RA sat of 93%; using home CPAP at night. HRR. Denies nausea. BT present and is passing flatus. Indwelling catheter is patent; urine is clear, dark yellow. Dressing/wound vac to back is intact; wound vac to 125mm hg. Allevyn dressing to medial right posterior thigh/buttock is CDI. Labia reddened and macerated. Needing assistance to reposition q2h. Complains of 6/10 pain; requested/medicated with IV Dilaudid. Wearing bilateral calf SCD's. CMS is intact. Fall risk score is high and bed alarm is activated.
[2019-12-24] MEDS: OXYCODONE IR 5 MG TABLET PO ×5 (05:27→20:22)
--- NOTE | 2019-12-24 05:45 | PC.NURSE ---
[employer] position note: floated/bridged patient between two pillows
--- NOTE | 2019-12-24 08:47 | PM.PNPO.1 ---
Subjective Subjective Date Patient Seen: 12/24/19 Time Patient Seen: 08:48 Interval history: Postop day 1. Repeat I and D lumbar spine wound by Dr. Escalera. Dr. Escalera reports the wound was clean and he was able to further close the wound with much less packing. Patient reports that she is reasonably comfortable today but has not been up since yesterday with a physical therapist. No specific complaints. Exam Vital Signs (past 8 hours): - 12/24/19 05:30 Temperature 97.7 F Pulse Rate 90 Respiratory Rate 16 Blood Pressure 122/66 Pulse Oximetry 95 Oxygen Delivery Method CPAP Oxygen Flow Rate 0 Narrative Exam Narrative: Afebrile, vital signs stable, awake alert oriented conversant and in no obvious distress. Dressing dry and intact. Distal neurovascular examination is grossly intact Objective Labs Result Diagrams: 12/22/19 05:30 Assessment & Plan Post-op Postoperative Procedures: Procedures Operation Date: 12/21/19 07:45 Actual Procedures Side Surgeon p Lumbar wound I&D with wound vac placement Kt Escalera MD Operation Date: 12/23/19 09:00 Actual Procedures Side Surgeon p Incision and Drainage Spine, Wound Vac Exchange Kt Escalera MD Operation Date: 12/26/19 07:45 <No data on this case meets the specified criteria> Postoperative day: 1 Postoperative status: doing well Postoperative status narrative: Postop day 1. And 3. I and D lumbar spine wound. Overall doing very well, and making satisfactory progress. Plan is per Dr. Escalera and will return to the operating room Tuesday for repeat I and D and probable closure. Postoperative plan: routine post-op care Postoperative plan narrative: Plan per Dr. Escalera plan is to return to operating room Tuesday for repeat I and D and possible wound closure.
[2019-12-24] MEDS: ACETAMINOPHEN 325 MG TABLET 650 MG PO (08:49)
[2019-12-24] MEDS: buPROPion XL 150 MG TAB 300 MG PO (08:49)
[2019-12-24] MEDS: DOCUSATE 100 MG CAPSULE PO ×2 (08:49→20:21)
[2019-12-24] MEDS: ASPIRIN EC 81 MG TABLET PO (08:49)
[2019-12-24] MEDS: VERAPAMIL 80 MG TABLET PO ×2 (08:51→20:22)
[2019-12-24] MEDS: METFORMIN HCL 500 MG TABLET 1000 MG PO ×2 (08:51→16:25)
--- NOTE | 2019-12-24 10:35 | PT.IPRE ---
Current Diagnoses Urinary tract infection, site not specified (12/21/19) Disruption of external operation (surgical) wound, not elsewhere classified, initial encounter (12/21/19) Arthrodesis status (12/21/19) Surgery Performed Operation Date: 12/21/19 07:45 Actual Procedures p Lumbar wound I&D with wound vac placement - Kt Escalera MD Operation Date: 12/23/19 09:00 Actual Procedures p Incision and Drainage Spine, Wound Vac Exchange - Kt Escalera MD Operation Date: 12/26/19 07:45 <No data on this case meets the specified criteria> Surgical History (Last Updated 10/29/19 @ 10:43 by Naomy Bridges RN) History of 3 sections (Acute) History of lumbar spinal fusion (Acute 06/27/17) History of spinal surgery (Resolved) History of ventral hernia repair (Inactive) Hx of umbilical hernia repair (Acute) S/P cholecystectomy (Inactive) S/P trigger finger release (Inactive) Medical History (Last Updated 10/29/19 @ 10:32 by Naomy Bridges RN) Acute kidney injury (Acute ~12/2018) Cardiomegaly (Acute) Depression with anxiety (Chronic) Easy bruisability (Acute) History of concussion (Acute) History of recurrent TIAs (Acute) History of stroke (Resolved) Hyperlipidemia associated with type 2 diabetes mellitus (Chronic) Hypothyroid (Acute) Migraine (Chronic) Morbid obesity with BMI of 45.0-49.9, adult (Chronic) Neuropathy (Acute) ABIOLA on CPAP (Acute) Osteopenia (Acute) Polyneuropathy (Acute) Radiculopathy (Acute) Type 2 diabetes mellitus (Chronic) Vitamin D deficiency (Acute) Physical Therapy Inpatient Evaluation/Re-Eval M1 PT/OT-IP Prior Functional Status Start: 12/22/19 12:46 Freq: NEEDED Status: Active Protocol: Document 12/22/19 12:53 CGR (Rec: 12/22/19 13:17 CGR [id number]) Medical Review Prior Functional Status Medical History Reviewed Yes Communication Pt is an effective verbal communicator. Mobility and Gait Pt was able to stand and transfer to a w/c from her bed while at SNF (last 3 weeks since hospitalization). Prior to that Pt was using a 4WW for mobility in the home and a manual w/c for community distances. Activities of Daily Living and IADL's Pt needed SBA for bathing and showering. Pt recieves meals on wheels and makes oatmeal for breakfast. Pt has a senior financial accountant that comes in Tuesday - Tuesday from 800 - 1600 for ADLs and cleaning and driving. Prior Functional Level (Other details) Pt's daughter lives in the same apartment complex and checks on her daily. Social History Household Members none Living Arrangements Apartment/Condo Number of Floors (Floors) One Floor Number of Stairs To Enter/Railing? Level entry Home Environment High Toilet,Tub/Shower Home Equipment Four Wheel Walker,Manual Wheelchair,Tub Transfer Bench, Grab Bars In Shower Employment Status Unemployed Additional Social History Comment Pt came from SNF but lives in an apartment prior to original sx on 11/26/19. M1 PT/OT-IP Prior Functional Status Start: 12/22/19 12:53 Freq: NEEDED Status: Active Protocol: Document 12/24/19 10:36 [facility] (Rec: 12/24/19 11:31 [facility] [id number]) Medical Review Prior Functional Status Medical History Reviewed Yes Communication Pt is an effective verbal communicator. Mobility and Gait Pt was able to stand and transfer to a w/c from her bed while at SNF (last 3 weeks since hospitalization). Prior to that Pt was using a 4WW for mobility in the home and a manual w/c for community distances. Activities of Daily Living and IADL's Pt needed SBA for bathing and showering. Pt recieves meals on wheels and makes oatmeal for breakfast. Pt has a senior financial accountant that comes in Tuesday - Tuesday from 800 - 1600 for ADLs and cleaning and driving. Prior Functional Level (Other details) Pt's daughter lives in the same apartment complex and checks on her daily. Social History Household Members none Living Arrangements Apartment/Condo Number of Floors (Floors) One Floor Number of Stairs To Enter/Railing? Level entry Home Environment High Toilet,Tub/Shower Home Equipment Four Wheel Walker,Manual Wheelchair,Tub Transfer Bench, Grab Bars In Shower Additional Social History Comment Pt came from SNF but lives in an apartment prior to original sx on 11/26/19. M2 PT-IP Current Condition Start: 12/22/19 12:46 Freq: NEEDED Status: Active Protocol: Document 12/24/19 10:35 LRN (Rec: 12/24/19 13:59 LRN [id number]) Physical Therapy Current Condition Current Condition Evaluation Date 12/24/19 Treatment Diagnosis s/p lumbar wound I&D; difficulty in walking Onset Date 12/21/2019 Precautions Lumbar Precautions Log Roll,No Twisting,Limit Bending,Lifting Restriction of 10 lbs,Gait Belt above Incisional Area Weight Bearing Status Weight Bearing Status Weight Bear as Tolerated M3 PT-IP Subjective Start: 12/22/19 12:46 Freq: NEEDED Status: Active Protocol: Document 12/24/19 10:35 LRN (Rec: 12/24/19 13:59 LRN [id number]) Subjective Physical Therapy Visit Type Type Re-Evaluation Visit Start Time 10:35 Visit Stop Time 11:05 Total Visit Minutes 30 Notes Co-treat with OT for part of the session due to extensive assist with mobility. Physical Therapy Visit Comments Patient Comments Pt agreeable to therapy. States she feels about the same as before the I&D surgery . Patient Goals To go home. Understands the need for skilled rehab. Therapy Pain Assessment Pain When Pain Assessed At Rest Pain Present Pain Present Pain Reported Location lower back Intensity 6 Scale Used Numeric (1 - 10) M4 PT-IP Mobility and Gait Start: 12/22/19 12:46 Freq: NEEDED Status: Active Protocol: Document 12/24/19 10:35 LRN (Rec: 12/24/19 13:59 LRN [id number]) PT-Bed Mobility Assessment Rolling Type of Rolling Log Rolling,Roll to Left Level of Assist Maximal Assistance,2 Person Assistance Supine to Sit Supine to Sit Maximum Assistance,2 Person Assistance,Bedrails Scooting Scooting to Edge of Bed Maximum Assistance PT-Transfer Assessment Sit to and From Stand Sit to and from Stand Moderate Assistance,2 Person Assistance,Use of Upper Extremities Equipment Transfer Assistive Device Gait Belt,Front Wheeled Walker Orthotic/Prosthetic Devices or Brace: No Transfers Transfer Destination Chair Transfer Technique Stand Step Pivot Transfer Ability Level of Assist Moderate Assistance,Maximum Assistance,2 Person Assistance Comments Mobility Comments Gait belt placed high above drain located in midback along spine. Gait Assessment Gait Gait Assistance Required: Moderate Assistance,2 Person Assist Distance (Feet) 3 Able to Maintain Weight Bearing Status Yes During Gait Assistive Devices Assistive Device Gait Belt,Front Wheeled Walker Gait Deviations General Gait Pattern Decreased Stride Length, Decreased Feet Clearance Factors Limiting Gait Function Factors Limiting Gait Function Decreased Activity Tolerance, Pain Comments Gait Comments Once up pt was able to take small steps (3-4) towards chair and turned to sit. She was able to take a couple steps backwards towards the chair PT-Balance Assessment Sitting Balance and Reactions Static Sitting Balance Ability Fair M5 PT-IP Objective Assessments Start: 12/22/19 12:46 Freq: NEEDED Status: Active Protocol: Document 12/24/19 10:35 LRN (Rec: 12/24/19 13:59 LRN [id number]) Orientation Orientation/Cognition Level of Alertness Alert Orientation Name,Age,Birthday,Month,Date, Year,Day of Week,Place, Situation Language Function Ability Hard of Hearing Gross Range of Motion Upper Extremity ROM Assessment Within Functional Limits Lower Extremity ROM Assessment Bilaterally Impaired Strength Upper Extremity Strength Assessment Within Functional Limits Lower Extremity Strength Assessment Bilaterally Impaired M6 PT-IP Treatment Start: 12/22/19 12:46 Freq: NEEDED Status: Active Protocol: Document 12/24/19 10:35 LRN (Rec: 12/24/19 13:59 LRN [id number]) Physical Therapy Treatment Exercises Exercises Ankle Pumps,Gluteal Sets,Heel Slides,Supine Hip Abduction Education Education Provided Weight Bearing Status Other Treatments Other Treatment Performed ABdominal tightening. Pt was left sitting in a chair with OT finishing working with the pt and for final set up. M7 PT-IP Assessment and Plan Start: 12/22/19 12:46 Freq: NEEDED Status: Active Protocol: Document 12/24/19 10:35 LRN (Rec: 12/24/19 13:59 LRN [id number]) PT Summary Assessment and Plan Potential Rehabilitation Potential Good Status of Condition at Evaluation Evolving Summary Impairments Pain,ROM,Strength,Bed Mobility ,Transfers,Gait,Activity Tolerance Progress Towards Goals Safe For Discharge Assessment Summary Pt is s/p I&D to back on , 12/21/19, 12/23/19, and to be getting another I&D in couple days again per surgeon. Pt presents with continued functional mobility limitations but appears to not have lost too much of her previous mobility skills prior to the I&D. The pt is motivated to progress and improve and will benefit from skilled physical therapy to progress her towards improved functional mobility and safety with transfer and gait. Goals Bed Mobility Goal Moderate Assistance Transfer Goal Moderate Assistance,Front Wheeled Walker Gait Goal Moderate Assistance,Front Wheel Walker Gait Distance 50 Days to Meet Goals 10 Frequency of Treatment Frequency Of Treatment Twice a Day Treatment Plan Physical Therapy Treatment Plan Bed Mobility Training,Transfer Training,Gait Training, Therapeutic Exercise,Balance Retraining,Post Op Education, Discharge Planning,Hot or Cold Pack,Neuromuscular Re-ed, Coordination Retraining,Manual Therapy Other Recommendations and Next Treatment transfers, ambulation Focus Recommendations To Nursing Amount of Assist Needed 2 Person Assist Discharge Recommendations PT Discharge Recommendations SNF Rehab Transportation Needs at Discharge Wheelchair/Cabulance
--- NOTE | 2019-12-24 11:15 | OT.IPRE ---
Current Diagnoses Urinary tract infection, site not specified (12/21/19) Disruption of external operation (surgical) wound, not elsewhere classified, initial encounter (12/21/19) Arthrodesis status (12/21/19) Surgery Performed Operation Date: 12/21/19 07:45 Actual Procedures p Lumbar wound I&D with wound vac placement - Kt Escalera MD Operation Date: 12/23/19 09:00 Actual Procedures p Incision and Drainage Spine, Wound Vac Exchange - Kt Escalera MD Operation Date: 12/26/19 07:45 <No data on this case meets the specified criteria> Past Medical History (Last Updated 10/29/19 @ 10:32 by Naomy Bridges RN) Acute kidney injury (Acute ~12/2018) Cardiomegaly (Acute) Depression with anxiety (Chronic) Easy bruisability (Acute) History of concussion (Acute) History of recurrent TIAs (Acute) History of stroke (Resolved) Hyperlipidemia associated with type 2 diabetes mellitus (Chronic) Hypothyroid (Acute) Migraine (Chronic) Morbid obesity with BMI of 45.0-49.9, adult (Chronic) Neuropathy (Acute) ABIOLA on CPAP (Acute) Osteopenia (Acute) Polyneuropathy (Acute) Radiculopathy (Acute) Type 2 diabetes mellitus (Chronic) Vitamin D deficiency (Acute) Surgical History (Last Updated 10/29/19 @ 10:43 by Naomy Bridges RN) History of 3 sections (Acute) History of lumbar spinal fusion (Acute 06/27/17) History of spinal surgery (Resolved) History of ventral hernia repair (Inactive) Hx of umbilical hernia repair (Acute) S/P cholecystectomy (Inactive) S/P trigger finger release (Inactive) Occupational Therapy Inpatient Evaluation/Re-Eval M1 PT/OT-IP Prior Functional Status Start: 12/22/19 12:53 Freq: NEEDED Status: Active Protocol: Document 12/24/19 10:36 [facility] (Rec: 12/24/19 11:31 [facility] [id number]) Medical Review Prior Functional Status Medical History Reviewed Yes Communication Pt is an effective verbal communicator. Mobility and Gait Pt was able to stand and transfer to a w/c from her bed while at SNF (last 3 weeks since hospitalization). Prior to that Pt was using a 4WW for mobility in the home and a manual w/c for community distances. Activities of Daily Living and IADL's Pt needed SBA for bathing and showering. Pt recieves meals on wheels and makes oatmeal for breakfast. Pt has a tube worker that comes in Tuesday - Tuesday from 800 - 1600 for ADLs and cleaning and driving. Prior Functional Level (Other details) Pt's daughter lives in the same apartment complex and checks on her daily. Social History Household Members none Living Arrangements Apartment/Condo Number of Floors (Floors) One Floor Number of Stairs To Enter/Railing? Level entry Home Environment High Toilet,Tub/Shower Home Equipment Four Wheel Walker,Manual Wheelchair,Tub Transfer Bench, Grab Bars In Shower Additional Social History Comment Pt came from SNF but lives in an apartment prior to original sx on 11/26/19. M2 OT-IP Current Condition Start: 12/22/19 12:53 Freq: Status: Active Protocol: Document 12/24/19 10:36 [facility] (Rec: 12/24/19 11:31 [facility] [id number]) Occupational Therapy Current Condition Current Condition Evaluation Date 12/24/19 Treatment Diagnosis I and D of back Diagnosis Onset Date 12/21/19 Post Operative Precautions Lumbar Precautions Log Roll,No Twisting,Limit Bending,Lifting Restriction of 10 lbs,Gait Belt above Incisional Area Weight Bearing Status Weight Bearing Status Weight Bear as Tolerated M3 OT- IP Subjective and Pain Start: 12/22/19 12:53 Freq: Status: Active Protocol: Document 12/24/19 10:36 [facility] (Rec: 12/24/19 11:31 [facility] [id number]) OT- Subjective Occupational Therapy Visit Type Type Initial Evaluation Visit Start Time 10:36 Visit Stop Time 11:15 Total Visit Minutes 39 Notes Co-treat with PT for part of the session as pt needing extensive assist for mobility needs. Occupational Therapy Visit Comments Patient Comments Pt states feels that she is moving better than the 1st time on 12/22/19 after the first I and D. Patient/Caregiver Goals To get back to skilled rehab, get stronger and go home to be able to care for herself. OT Pain Assessment Pain When Pain Assessed At Rest Pain Present Pain Present Pain Reported Location lower back Intensity 6 Scale Used Numeric (1 - 10) M4 OT- IP ADL's Start: 12/22/19 12:53 Freq: Status: Active Protocol: Document 12/24/19 10:36 [facility] (Rec: 12/24/19 11:31 [facility] [id number]) OT [id number]-[id number]-[id number] General Evaluation Self-Feeding Ability Independent Areas Needing Assistance Drinking From Cup/Glass, Opening Containers OT ADL-Grooming General Evaluation Grooming Ability Standby Assistance Areas Needing Assistance Retrieving/Set-up of Grooming Items,Face Washing Comments OT Grooming Comments Able to do all grooming needing while sitting from the recliner. OT ADL-Oral Care General Eval Oral Care Ability Independent OT ADL-Dressing General Eval Lower Body Dressing Ability Total Assistance Areas Needing Assistance Socks Comments OT Dressing Comments Pt needed total assist for donning socks. OT ADL-Toileting Comments OT Toileting Comments Pt with nelson. OT ADL-Bathing Bathing Type Bathing Type Sponge Bath General Evaluation Bathing Ability Minimal Assistance Areas Needing Assistance Wash/Dry Back Comments OT Bathing Comments Pt wanting to sponge off her upper body and needing assist to wash her back. Pt's gown switched out to a larger size. M5 OT- IP IADL's Start: 12/22/19 12:53 Freq: Status: Active Protocol: Document 12/24/19 10:36 [facility] (Rec: 12/24/19 11:31 [facility] [id number]) OT-Instrumental Activities of Daily Living Deficits IADL Deficits Identified Deficits Home Safety Awareness Awareness of Need for Assistance at Home Good Awareness Ability to Problem Solve Emergency Able to Problem Solve Situations Medication Management Medication Management No Deficits Identified Money Management Money Management No Deficits Identified Meal Preparation Meal Preparation Caregiver Provides Assist Line Haul Truck Driver Line Haul Truck Driver Caregiver Provides Assist Driving Driving Caregiver Provides Assist M6 OT- IP Functional Cognition Start: 12/22/19 12:53 Freq: Status: Active Protocol: Document 12/24/19 10:36 [facility] (Rec: 12/24/19 11:31 [facility] [id number]) Cognitive Factors Limiting Selfcare Function Cognitive Ability Level of Alertness Alert Patient Orientation Name,Age,Birthday,Month,Date, Year,Day of Week,Place, Situation Attention Span Ability Capable of Focused Attention, Capable of Sustained Attention Ability to Follow Commands Able to Follow Multi-Step Commands Memory Description No Deficits Noted Cognitive Comments Cognitive Assessment Comments Pt appears at baseline with no cognitive deficits noted on Ot re-eval. Pt able to recall all back precautions. OT- Vision and Hearing OT- Hearing Assessment OT- Hearing Assessment WFL OT- Vision Assessment Visual Acuity Glasses All The Time Visual Attentiveness WFL Occular Pursuits WFL Visual Convergence WFL M7 OT- IP Mobility and Balance Start: 12/22/19 12:53 Freq: Status: Active Protocol: Document 12/24/19 10:36 [facility] (Rec: 12/24/19 11:31 [facility] [id number]) OT- Bed Mobility Assessment Rolling Type of Rolling Log Rolling,Roll to Left Level of Assistance Maximum Assistance,2 Person Assistance,Bedrails Supine to Sit Supine to Sit Assist Maximum Assistance,2 Person Assistance,Bedrails Scooting Scooting to Edge of Bed Maximum Assistance,2 Person Assistance,Bedrails OT-Transfer Assessment Sit to and From Stand Sit to and from Stand Moderate Assistance,Maximum Assistance,2 Person Assistance Transfers Transfer Ability Moderate Assistance,2 Person Assistance Technique Transfer Destination Bed,Chair Transfer Technique Stand Step Pivot Devices Transfer Assistive Devices Gait Belt,Front Wheeled Walker OT- Gait Assessment Gait Gait Assistance Required: Moderate Assistance,2 Person Assist Assistive Devices Assistive Device Gait Belt,Front Wheeled Walker Comments Gait Ability Comments Pt able to transfer with FWW with MODA X 2, second person mainly assisting with tube/ cord management needs. OT- Balance Assessment Sitting Balance and Reactions Static Sitting Balance Ability Fair M8 OT- IP Objective Assessments Start: 12/22/19 12:53 Freq: Status: Active Protocol: Document 12/24/19 10:36 [facility] (Rec: 12/24/19 11:31 [facility] [id number]) OT Gross Range of Motion Upper Extremity Range of Motion Assessment Bilaterally Impaired ROM Impairments B shld 0-45 OT Strength Upper Extremity Strength Assessment Within Functional Limits Comments Strength Comments grossly 4/5 OT- Coordination Assessment Upper Extremity Finger to Nose Test Within Functional Limits Finger Tapping Test Within Functional Limits OT-Muscle Tone Assessment Muscle Tone WNL Yes OT Sensation Assessment Location Right Upper Extremity Light Touch Intact/Normal Edema Edema Absent M9 OT- IP Assessment and Plan Start: 12/22/19 12:53 Freq: Status: Active Protocol: Document 12/24/19 10:36 [facility] (Rec: 12/24/19 11:31 [facility] [id number]) OT Summary Assessment and Plan Potential Rehabilitation Potential Good Analytic Complexity at Evaluation Moderate Summary OT Impairments Pain,Range of Motion,Strength, Balance,Functional Mobility, Grooming,Dressing,Toileting, Bathing,Toilet Transfers, Shower Transfers,Activity Tolerance Progress Towards Goals Slow Progress due to Pain,Slow Progress due to Activity Tolerance Assessment Summary Pt MOD complexity due to s/p I and D to back on 11/26/19, 12/20, 12/23/19, and to be getting another I and D in couple days again per surgeon. Pt needing extensive assist for functional mobility and ADl needs. Pt will benefit from going back to skilled rehab when medically stable. Goals Grooming Goal Independent Dressing Goal Independent,Long Handled Shoe Horn,Control Integration Engineer,Sock Aid Toileting Goal Independent Bathing Goal Standby Assistance,Grab Bars Toilet Transfer Goal Independent,Grab Bars Shower Transfer Goal Standby Assistance,Tub/Shower Combination,Tub Transfer Bench ,Grab Bars Days to Meet Goals 14 Treatment Plan OT Treatment Plan ADL Training,Functional Mobility,Patient/Family Education,Discharge Planning Discharge Recommendations OT Discharge Recommendations SNF Rehab Home Equipment Needs TBD
--- NOTE | 2019-12-24 12:15 | CM.DPC ---
DCP Cont: Faxed all PT and OT notes to [facility], Attn: Alyssa at fax # [phone] per her request. Fax confirmation scanned in. Jessica Villanueva Caddie Supervisor
[2019-12-24] MEDS: CEFTRIAXONE 2 GM/50 ML FROZ.PIGGY IV (12:35)
--- NOTE | 2019-12-24 14:17 | CM.DPC ---
DCP/continued: Received phone call from daughter/Khalida she reports that family would like patient to go to either [facility] or [facility] when medically stable. Patient scheduled to undergo another I&D on Tuesday12-26-19. It is anticipated that wound will be closed therefore, no wound vac needed. Asked TASHI/Kate to fax clinicals to [facility]. In addition, spoke with Christie at [facility] she reports that they will do bedside evaluation within the next 24-48hrs. P: Anticipate d/c to SNF when medically stable. Patient does not want to return to [facility]. KRISTI Mckeon
--- NOTE | 2019-12-24 17:20 | PT.IPTN ---
Current Diagnoses Urinary tract infection, site not specified (12/21/19) Disruption of external operation (surgical) wound, not elsewhere classified, initial encounter (12/21/19) Arthrodesis status (12/21/19) Surgery Performed Operation Date: 12/21/19 07:45 Actual Procedures p Lumbar wound I&D with wound vac placement - Kt Escalera MD Operation Date: 12/23/19 09:00 Actual Procedures p Incision and Drainage Spine, Wound Vac Exchange - Kt Escalera MD Operation Date: 12/26/19 07:45 <No data on this case meets the specified criteria> Physical Therapy Treatment Note M2 PT-IP Current Condition Start: 12/22/19 12:46 Freq: NEEDED Status: Active Protocol: Document 12/24/19 15:35 [facility] (Rec: 12/24/19 17:18 [facility] [id number]) Physical Therapy Current Condition Current Condition Evaluation Date 12/24/19 Treatment Diagnosis s/p lumbar wound I&D; difficulty in walking Onset Date 12/21/2019 Precautions Lumbar Precautions Log Roll,No Twisting,Limit Bending,Lifting Restriction of 10 lbs,Gait Belt above Incisional Area Weight Bearing Status Weight Bearing Status Weight Bear as Tolerated M3 PT-IP Subjective Start: 12/22/19 12:46 Freq: NEEDED Status: Active Protocol: Document 12/24/19 15:35 [facility] (Rec: 12/24/19 17:18 [facility] [id number]) Subjective Physical Therapy Visit Type Type Treatment Note Visit Start Time 15:35 Visit Stop Time 16:05 Total Visit Minutes 30 Notes Nursing present during therapy to assist with transfers and bringing chair behind her as she walked in her room. Physical Therapy Visit Comments Patient Comments Pt woken from sleep, agreeable to PT. Patient Goals To go home. Understands the need for skilled rehab. M4 PT-IP Mobility and Gait Start: 12/22/19 12:46 Freq: NEEDED Status: Active Protocol: Document 12/24/19 15:35 [facility] (Rec: 12/24/19 17:18 [facility] [id number]) PT-Bed Mobility Assessment Rolling Type of Rolling Log Rolling,Roll to Right Level of Assist Maximal Assistance,2 Person Assistance Supine to Sit Supine to Sit Moderate Assistance,2 Person Assistance Sit to Supine Sit to Supine Moderate Assistance,2 Person Assistance,Bedrails Scooting Scooting to Edge of Bed Moderate Assistance PT-Transfer Assessment Sit to and From Stand Sit to and from Stand Minimal Assistance,1 Person Assistance,Use of Upper Extremities Equipment Transfer Assistive Device Gait Belt,Front Wheeled Walker Orthotic/Prosthetic Devices or Brace: No Transfers Transfer Destination Bed Transfer Technique Stand walk to opposite side Transfer Ability Level of Assist Minimal Assistance,1 Person Assistance,Use of Upper Extremities Comments Mobility Comments Gait belt placed high above drain located in midback along spine. Gait Assessment Gait Gait Assistance Required: Minimum Assistance,2 Person Assist Distance (Feet) 3 Able to Maintain Weight Bearing Status Yes During Gait Assistive Devices Assistive Device Gait Belt,Front Wheeled Walker Gait Deviations General Gait Pattern Decreased Stride Length, Decreased Feet Clearance Factors Limiting Gait Function Factors Limiting Gait Function Decreased Activity Tolerance, Decreased Strength,Pain,Poor Balance Comments Gait Comments 2nd person assist to have chair behind pt if becoming fatigued. PT-Balance Assessment Sitting Balance and Reactions Static Sitting Balance Ability Good Dynamic Sitting Balance Ability Good Standing Balance and Reactions Static Standing Balance Ability Poor Dynamic Standing Balance Ability Poor Device Used FWW M5 PT-IP Objective Assessments Start: 12/22/19 12:46 Freq: NEEDED Status: Active Protocol: Document 12/24/19 10:35 [facility] (Rec: 12/24/19 13:59 [facility] [id number]) Orientation Orientation/Cognition Level of Alertness Alert Orientation Name,Age,Birthday,Month,Date, Year,Day of Week,Place, Situation Language Function Ability Hard of Hearing Gross Range of Motion Upper Extremity ROM Assessment Within Functional Limits Lower Extremity ROM Assessment Bilaterally Impaired Strength Upper Extremity Strength Assessment Within Functional Limits Lower Extremity Strength Assessment Bilaterally Impaired M6 PT-IP Treatment Start: 12/22/19 12:46 Freq: NEEDED Status: Active Protocol: Document 12/24/19 15:35 [facility] (Rec: 12/24/19 17:18 [facility] [id number]) Physical Therapy Treatment Exercises Exercises Ankle Pumps,Gluteal Sets,Quad Sets,Heel Slides,Supine Hip Abduction,Short Arc Quads M7 PT-IP Assessment and Plan Start: 12/22/19 12:46 Freq: NEEDED Status: Active Protocol: Document 12/24/19 15:35 [facility] (Rec: 12/24/19 17:18 [facility] [id number]) PT Summary Assessment and Plan Potential Rehabilitation Potential Good Status of Condition at Evaluation Evolving Summary Impairments Pain,ROM,Strength,Bed Mobility ,Transfers,Gait,Activity Tolerance Progress Towards Goals Progressing Toward Goals Assessment Summary Error on Initial Eval note at 10:35, pt is not safe for DC. Pt is s/p I&D to back on 11/26/19, 12/21/19, , and to be getting another I&D in couple days again per surgeon. Pt presents with continued functional mobility limitations but appears to not have lost too much of her previous mobility skills prior to the I&D. The pt is motivated to progress and improve and will benefit from skilled physical therapy to progress her towards improved functional mobility and safety with transfer and gait. Goals Bed Mobility Goal Moderate Assistance Transfer Goal Moderate Assistance,Front Wheeled Walker Gait Goal Moderate Assistance,Front Wheel Walker Gait Distance 50 Days to Meet Goals 10 Frequency of Treatment Frequency Of Treatment Twice a Day Treatment Plan Physical Therapy Treatment Plan Bed Mobility Training,Transfer Training,Gait Training, Therapeutic Exercise,Balance Retraining,Post Op Education, Discharge Planning,Hot or Cold Pack,Neuromuscular Re-ed, Coordination Retraining,Manual Therapy Other Recommendations and Next Treatment transfers, ambulation Focus Recommendations To Nursing Amount of Assist Needed 2 Person Assist Discharge Recommendations PT Discharge Recommendations SNF Rehab Transportation Needs at Discharge Wheelchair/Cabulance
[2019-12-24] MEDS: SENNOSIDES 8.6 MG TABLET 17.2 MG PO (20:16)
[2019-12-24] MEDS: TRAZODONE 50 MG TABLET 150 MG PO (20:21)
[2019-12-24] MEDS: FENOFIBRATE 48 MG TABLET PO (20:22)
[2019-12-25] MEDS: OXYCODONE IR 5 MG TABLET PO ×6 (00:59→23:55)
[2019-12-25 03:00] VITALS: BP 125/73; PULSE 96; RESP 18; TEMP 36.7; O2SAT 93
[2019-12-25 07:31] VITALS: BP 141/73; PULSE 93; RESP 21; TEMP 37.1; O2SAT 96
[2019-12-25] MEDS: ASPIRIN EC 81 MG TABLET PO (07:46)
[2019-12-25] MEDS: METFORMIN HCL 500 MG TABLET 1000 MG PO ×2 (07:46→17:33)
[2019-12-25] MEDS: DOCUSATE 100 MG CAPSULE PO ×2 (07:48→20:36)
[2019-12-25] MEDS: VERAPAMIL 80 MG TABLET PO ×2 (07:48→20:38)
[2019-12-25] MEDS: buPROPion XL 150 MG TAB 300 MG PO (07:49)
--- NOTE | 2019-12-25 08:05 | PC.NURSE ---
Patient resting in bed, A/Ox3, c/o back pain. Administered PRN OXY 5mg, with QUILLER MACHINE FIXER assist, patient was boosted and repositioned to right side, semi vann for breakfast, patient winced and grimaced with movement. Back dsg is CDI, wound vac intact, allyvn dsg on RLE thigh is intact. Jesus is patent and draining. Generalized edema noted, tubing of wound vac creating pressure on intact skin, repositioned. SCD's on bilaterally. PICC is CDI. Bed alarm on, call light in reach.
--- NOTE | 2019-12-25 08:39 | PM.PNPO.1 ---
Subjective Subjective Date Patient Seen: 12/25/19 Time Patient Seen: 08:40 Interval history: Postop day 2 and 4. I and D lumbar spine wound. Overall doing well status unchanged. Exam Vital Signs (past 8 hours): - 12/25/19 03:00 12/25/19 07:31 Temperature 98.0 F 98.7 F Pulse Rate 96 H 93 H Respiratory Rate 18 21 Blood Pressure 125/73 141/73 H Pulse Oximetry 93 96 Oxygen Delivery Method Room Air Oxygen Flow Rate 0 Narrative Exam Narrative: Vital signs stable. Distal neurovascular examination grossly intact dressing dry and intact. Objective Labs Result Diagrams: 12/22/19 05:30 Assessment & Plan Post-op Postoperative Procedures: Procedures Operation Date: 12/21/19 07:45 Actual Procedures Side Surgeon p Lumbar wound I&D with wound vac placement Kt Escalera MD Operation Date: 12/23/19 09:00 Actual Procedures Side Surgeon p Incision and Drainage Spine, Wound Vac Exchange Kt Escalera MD Operation Date: 12/26/19 07:45 <No data on this case meets the specified criteria> Postoperative day: 2 Postoperative status: doing well Postoperative status narrative: Continue routine care. Doing well. Postoperative plan: routine post-op care Postoperative plan narrative: Dr. Escalera plans on returning to the operating room tomorrow for repeat I&D and possible closure. Patient will be made NPO after midnight.
--- NOTE | 2019-12-25 10:09 | PT.IPTN ---
Current Diagnoses Urinary tract infection, site not specified (12/21/19) Disruption of external operation (surgical) wound, not elsewhere classified, initial encounter (12/21/19) Arthrodesis status (12/21/19) Surgery Performed Operation Date: 12/21/19 07:45 Actual Procedures p Lumbar wound I&D with wound vac placement - Kt Escalera MD Operation Date: 12/23/19 09:00 Actual Procedures p Incision and Drainage Spine, Wound Vac Exchange - Kt Escalera MD Operation Date: 12/26/19 07:45 <No data on this case meets the specified criteria> Physical Therapy Treatment Note M2 PT-IP Current Condition Start: 12/22/19 12:46 Freq: NEEDED Status: Active Protocol: Document 12/24/19 15:35 LRN (Rec: 12/24/19 17:18 LRN [id number]) Physical Therapy Current Condition Current Condition Evaluation Date 12/24/19 Treatment Diagnosis s/p lumbar wound I&D; difficulty in walking Onset Date 12/21/2019 Precautions Lumbar Precautions Log Roll,No Twisting,Limit Bending,Lifting Restriction of 10 lbs,Gait Belt above Incisional Area Weight Bearing Status Weight Bearing Status Weight Bear as Tolerated M3 PT-IP Subjective Start: 12/22/19 12:46 Freq: NEEDED Status: Active Protocol: Document 12/25/19 10:09 CLB (Rec: 12/25/19 14:31 CLB [id number]) Subjective Physical Therapy Visit Type Type Treatment Note Visit Start Time 10:09 Visit Stop Time 10:24 Total Visit Minutes 15 Number of PLANNER/SCHEDULER Visits 1 Physical Therapy Visit Comments Patient Comments Pt willing to get OOB. Therapy Pain Assessment Pain When Pain Assessed At Rest Pain Present Pain Present Pain Reported Location lower back Intensity 6 Scale Used Numeric (1 - 10) M4 PT-IP Mobility and Gait Start: 12/22/19 12:46 Freq: NEEDED Status: Active Protocol: Document 12/25/19 10:09 CLB (Rec: 12/25/19 14:31 CLB [id number]) PT-Bed Mobility Assessment Rolling Type of Rolling Log Rolling,Roll to Right Level of Assist Maximal Assistance,2 Person Assistance Supine to Sit Supine to Sit Moderate Assistance,2 Person Assistance Scooting Scooting to Edge of Bed Contact Guard Assistance PT-Transfer Assessment Sit to and From Stand Sit to and from Stand Minimal Assistance,1 Person Assistance,Use of Upper Extremities Equipment Transfer Assistive Device Gait Belt,Front Wheeled Walker Orthotic/Prosthetic Devices or Brace: No Transfers Transfer Destination Chair Transfer Technique walked with FWW Transfer Ability Level of Assist Minimal Assistance,1 Person Assistance,Use of Upper Extremities Comments Mobility Comments CUSTOMER ACCOUNT EXECUTIVE assisted with LR to right requiring Mod A x2 and Mod A for supine-sit, Pt was able to scoot CGA. Pt stood from bed and ambulate ~3 ft before requiring to sit in chair. Pt able to perform stand pivot transfer to sit in chair. Pt left in chair with all needs within reach. Gait Assessment Gait Gait Assistance Required: Minimum Assistance,1 Person Assist Distance (Feet) 3 Able to Maintain Weight Bearing Status Yes During Gait Assistive Devices Assistive Device Gait Belt,Front Wheeled Walker Gait Deviations General Gait Pattern Decreased Stride Length, Decreased Feet Clearance Factors Limiting Gait Function Factors Limiting Gait Function Decreased Activity Tolerance, Decreased Strength,Pain Comments Gait Comments second person assist with lines. M5 PT-IP Objective Assessments Start: 12/22/19 12:46 Freq: NEEDED Status: Active Protocol: Document 12/24/19 10:35 LRN (Rec: 12/24/19 13:59 LRN [id number]) Orientation Orientation/Cognition Level of Alertness Alert Orientation Name,Age,Birthday,Month,Date, Year,Day of Week,Place, Situation Language Function Ability Hard of Hearing Gross Range of Motion Upper Extremity ROM Assessment Within Functional Limits Lower Extremity ROM Assessment Bilaterally Impaired Strength Upper Extremity Strength Assessment Within Functional Limits Lower Extremity Strength Assessment Bilaterally Impaired M6 PT-IP Treatment Start: 12/22/19 12:46 Freq: NEEDED Status: Active Protocol: Document 12/24/19 15:35 LRN (Rec: 12/24/19 17:18 LRN [id number]) Physical Therapy Treatment Exercises Exercises Ankle Pumps,Gluteal Sets,Quad Sets,Heel Slides,Supine Hip Abduction,Short Arc Quads M7 PT-IP Assessment and Plan Start: 12/22/19 12:46 Freq: NEEDED Status: Active Protocol: Document 12/25/19 10:09 CLB (Rec: 12/25/19 14:31 CLB [id number]) PT Summary Assessment and Plan Potential Rehabilitation Potential Good Status of Condition at Evaluation Evolving Summary Impairments Pain,ROM,Strength,Bed Mobility ,Transfers,Gait,Activity Tolerance Progress Towards Goals Slow Progress due to Pain,Slow Progress due to Activity Tolerance Assessment Summary Pt continues to require two person assist for bed mobility . Pt not able to tolerate increase in ambulation due to pain and decreased activity tolerance. Goals Bed Mobility Goal Moderate Assistance Transfer Goal Moderate Assistance,Front Wheeled Walker Gait Goal Moderate Assistance,Front Wheel Walker Gait Distance 50 Days to Meet Goals 10 Frequency of Treatment Frequency Of Treatment Twice a Day Treatment Plan Physical Therapy Treatment Plan Bed Mobility Training,Transfer Training,Gait Training, Therapeutic Exercise,Balance Retraining,Post Op Education, Discharge Planning,Hot or Cold Pack,Neuromuscular Re-ed, Coordination Retraining,Manual Therapy Other Recommendations and Next Treatment transfers, ambulation Focus Recommendations To Nursing Amount of Assist Needed 2 Person Assist Discharge Recommendations PT Discharge Recommendations SNF Rehab Transportation Needs at Discharge Wheelchair/Cabulance
[2019-12-25 12:09] VITALS: BP 134/71; PULSE 89; RESP 20; TEMP 36.4; O2SAT 96
[2019-12-25] MEDS: CEFTRIAXONE 2 GM/50 ML FROZ.PIGGY IV (12:26)
--- NOTE | 2019-12-25 13:06 | OT.IP.TRT ---
Current Diagnoses Urinary tract infection, site not specified (12/21/19) Disruption of external operation (surgical) wound, not elsewhere classified, initial encounter (12/21/19) Arthrodesis status (12/21/19) Surgery Performed Operation Date: 12/21/19 07:45 Actual Procedures p Lumbar wound I&D with wound vac placement - Kt Escalera MD Operation Date: 12/23/19 09:00 Actual Procedures p Incision and Drainage Spine, Wound Vac Exchange - Kt Escalera MD Operation Date: 12/26/19 07:45 <No data on this case meets the specified criteria> Occupational Therapy Treatment Note M2 OT-IP Current Condition Start: 12/22/19 12:53 Freq: Status: Active Protocol: Document 12/24/19 10:36 [facility] (Rec: 12/24/19 11:31 [facility] [id number]) Occupational Therapy Current Condition Current Condition Evaluation Date 12/24/19 Treatment Diagnosis I and D of back Diagnosis Onset Date 12/21/19 Post Operative Precautions Lumbar Precautions Log Roll,No Twisting,Limit Bending,Lifting Restriction of 10 lbs,Gait Belt above Incisional Area Weight Bearing Status Weight Bearing Status Weight Bear as Tolerated M3 OT- IP Subjective and Pain Start: 12/22/19 12:53 Freq: Status: Active Protocol: Document 12/25/19 14:54 [facility] (Rec: 12/25/19 15:10 [facility] [id number]) OT- Subjective Occupational Therapy Visit Type Type Treatment Note Visit Start Time 13:06 Visit Stop Time 13:49 Total Visit Minutes 43 Occupational Therapy Visit Comments Patient Comments Pt agreeable to get back to bed and attempt to use BSC. OT working with MANAGER MATERIALS MANAGEMENT due to pt needing extensive assist for mobility needs. Patient/Caregiver Goals To go to skilled rehab. OT Pain Assessment Pain When Pain Assessed During Mobility Pain Present Pain Present Pain Reported Location lower back Intensity 6 Scale Used Numeric (1 - 10) M4 OT- IP ADL's Start: 12/22/19 12:53 Freq: Status: Active Protocol: Document 12/25/19 14:54 [facility] (Rec: 12/25/19 15:10 [facility] [id number]) OT ADL-Grooming General Evaluation Grooming Ability Standby Assistance Comments OT Grooming Comments Able to do all grooming needing while sitting from the recliner. OT ADL-Dressing General Eval Lower Body Dressing Ability Total Assistance Areas Needing Assistance Socks OT ADL-Toileting General Evaluation Toileting Ability Total Assistance Areas Needing Assistance Perform Perineal Hygiene Devices Toileting Assistive Devices Commode Comments OT Toileting Comments Pt dependent for all hygiene needs. Pt's skin very fragile underneath and barrier cream placed after assisting with hygiene. PT needing to stand with pt JITENDRA with FWW and had to stand several times as pt getting tired M5 OT- IP IADL's Start: 12/22/19 12:53 Freq: Status: Active Protocol: Document 12/24/19 10:36 [facility] (Rec: 12/24/19 11:31 [id number] OT-Instrumental Activities of Daily Living Deficits IADL Deficits Identified Deficits Home Safety Awareness Awareness of Need for Assistance at Home Good Awareness Ability to Problem Solve Emergency Able to Problem Solve Situations Medication Management Medication Management No Deficits Identified Money Management Money Management No Deficits Identified Meal Preparation Meal Preparation Caregiver Provides Assist Raisin Washer Raisin Washer Caregiver Provides Assist Driving Driving Caregiver Provides Assist M6 OT- IP Functional Cognition Start: 12/22/19 12:53 Freq: Status: Active Protocol: Document 12/25/19 14:54 [facility] (Rec: 12/25/19 15:10 [facility] [id number]) Cognitive Factors Limiting Selfcare Function Cognitive Ability Level of Alertness Alert Patient Orientation Name,Age,Birthday,Month,Date, Year,Day of Week,Place, Situation Attention Span Ability Capable of Focused Attention, Capable of Sustained Attention Ability to Follow Commands Able to Follow Multi-Step Commands Memory Description No Deficits Noted Cognitive Comments Cognitive Assessment Comments Intact M7 OT- IP Mobility and Balance Start: 12/22/19 12:53 Freq: Status: Active Protocol: Document 12/25/19 14:54 [facility] (Rec: 12/25/19 15:10 [facility] [id number]) OT- Bed Mobility Assessment Rolling Level of Assistance Moderate Assistance,1 Person Assistance Supine to Sit Supine to Sit Assist Moderate Assistance,2 Person Assistance OT-Transfer Assessment Sit to and From Stand Sit to and from Stand Minimal Assistance,Moderate Assistance Transfers Transfer Ability Minimal Assistance Technique Transfer Destination Bed,Bedside Commode,Chair Transfer Technique Stand Step Pivot Devices Transfer Assistive Devices Gait Belt,Front Wheeled Walker OT- Gait Assessment Gait Gait Assistance Required: Minimum Assistance,1 Person Assist Assistive Devices Assistive Device Gait Belt,Front Wheeled Walker Comments Gait Ability Comments MODA x 2 for bed mobility needs and once up with FWW JITENDRA. Much improved, however second person needed due to cord management needs. OT- Balance Assessment Sitting Balance and Reactions Static Sitting Balance Ability Good M8 OT- IP Objective Assessments Start: 12/22/19 12:53 Freq: Status: Active Protocol: Document 12/24/19 10:36 [facility] (Rec: 12/24/19 11:31 [facility] [id number]) OT Gross Range of Motion Upper Extremity Range of Motion Assessment Bilaterally Impaired ROM Impairments B shld 0-45 OT Strength Upper Extremity Strength Assessment Within Functional Limits Comments Strength Comments grossly 4/5 OT- Coordination Assessment Upper Extremity Finger to Nose Test Within Functional Limits Finger Tapping Test Within Functional Limits OT-Muscle Tone Assessment Muscle Tone WNL Yes OT Sensation Assessment Location Right Upper Extremity Light Touch Intact/Normal Edema Edema Absent M9 OT- IP Assessment and Plan Start: 12/22/19 12:53 Freq: Status: Active Protocol: Document 12/25/19 14:54 [facility] (Rec: 12/25/19 15:10 [facility] [id number]) OT Summary Assessment and Plan Potential Rehabilitation Potential Good Analytic Complexity at Evaluation Moderate Summary OT Impairments Pain,Range of Motion,Strength, Balance,Functional Mobility, Grooming,Dressing,Toileting, Bathing,Toilet Transfers, Shower Transfers,Activity Tolerance Progress Towards Goals Slow Progress due to Pain,Slow Progress due to Activity Tolerance Assessment Summary Pt to have another I and D tomorrow. Pt making improvements with mobility needs at this time and has good understanding for all OT needs. When medically stable , pt to go to skilled rehab. Goals Grooming Goal Independent Dressing Goal Independent,Long Handled Shoe Horn,Solderer Barrel Ribs,Sock Aid Toileting Goal Independent Bathing Goal Standby Assistance,Grab Bars Toilet Transfer Goal Independent,Grab Bars Shower Transfer Goal Standby Assistance,Tub/Shower Combination,Tub Transfer Bench ,Grab Bars Days to Meet Goals 13 Frequency of Treatment Frequency Of Treatment Once a Day Treatment Plan OT Treatment Plan ADL Training,Functional Mobility,Patient/Family Education,Discharge Planning Other Treatment Recommendations and Next dj instructor front of sink with Treatment Focus recliner behind her. Discharge Recommendations OT Discharge Recommendations SNF Rehab Home Equipment Needs TBD Transportation Needs at Discharge Wheelchair/Cabulance
--- NOTE | 2019-12-25 13:06 | PT.IPTN ---
Current Diagnoses Urinary tract infection, site not specified (12/21/19) Disruption of external operation (surgical) wound, not elsewhere classified, initial encounter (12/21/19) Arthrodesis status (12/21/19) Surgery Performed Operation Date: 12/21/19 07:45 Actual Procedures p Lumbar wound I&D with wound vac placement - Kt Escalera MD Operation Date: 12/23/19 09:00 Actual Procedures p Incision and Drainage Spine, Wound Vac Exchange - Kt Escalera MD Operation Date: 12/26/19 07:45 <No data on this case meets the specified criteria> Physical Therapy Treatment Note M2 PT-IP Current Condition Start: 12/22/19 12:46 Freq: NEEDED Status: Active Protocol: Document 12/24/19 15:35 LRN (Rec: 12/24/19 17:18 LRN [id number]) Physical Therapy Current Condition Current Condition Evaluation Date 12/24/19 Treatment Diagnosis s/p lumbar wound I&D; difficulty in walking Onset Date 12/21/2019 Precautions Lumbar Precautions Log Roll,No Twisting,Limit Bending,Lifting Restriction of 10 lbs,Gait Belt above Incisional Area Weight Bearing Status Weight Bearing Status Weight Bear as Tolerated M3 PT-IP Subjective Start: 12/22/19 12:46 Freq: NEEDED Status: Active Protocol: Document 12/25/19 13:06 [facility] (Rec: 12/25/19 14:54 [facility] [id number]) Subjective Physical Therapy Visit Type Type Treatment Note Visit Start Time 13:06 Visit Stop Time 13:50 Total Visit Minutes 44 Notes Co-treated with OT Number of COUNTY PROGRAM TECHNICIAN Visits 2 Physical Therapy Visit Comments Patient Comments Pt wanting to get back to bed. Therapy Pain Assessment Pain When Pain Assessed At Rest Pain Present Pain Present Pain Reported Location lower back Intensity 6 Scale Used Numeric (1 - 10) M4 PT-IP Mobility and Gait Start: 12/22/19 12:46 Freq: NEEDED Status: Active Protocol: Document 12/25/19 13:06 [facility] (Rec: 12/25/19 14:54 [facility]B [id number]) PT-Bed Mobility Assessment Sit to Supine Sit to Supine Moderate Assistance,2 Person Assistance PT-Transfer Assessment Sit to and From Stand Sit to and from Stand Minimal Assistance,1 Person Assistance,Use of Upper Extremities Equipment Transfer Assistive Device Gait Belt,Front Wheeled Walker Orthotic/Prosthetic Devices or Brace: No Transfers Transfer Destination Bed,Chair,Bedside Commode Transfer Technique walked with FWW Transfer Ability Level of Assist Minimal Assistance,1 Person Assistance,Use of Upper Extremities Comments Mobility Comments Pt stood and took a few steps then sat so that BSC could be placed in room. Pt ambulated ~ 2ft then pivoted to sit on BSC requiring Min A. Pt had BM and was assisted with standing balance by COUNTY PROGRAM TECHNICIAN and OT performed pericare. Pt then ambulated to bed requiring Min A and Mod A x2 for sit-supine . Pt left in bed with bilateral SCD's on LEs. Pt bed alarm on and all needs within reach. Gait Assessment Gait Gait Assistance Required: Minimum Assistance,1 Person Assist Distance (Feet) 3 Able to Maintain Weight Bearing Status Yes During Gait Assistive Devices Assistive Device Gait Belt,Front Wheeled Walker Gait Deviations General Gait Pattern Decreased Stride Length, Decreased Feet Clearance Factors Limiting Gait Function Factors Limiting Gait Function Decreased Activity Tolerance, Decreased Strength,Pain Comments Gait Comments second person assist with lines. M5 PT-IP Objective Assessments Start: 12/22/19 12:46 Freq: NEEDED Status: Active Protocol: Document 12/24/19 10:35 LRN (Rec: 12/24/19 13:59 LRN [id number]) Orientation Orientation/Cognition Level of Alertness Alert Orientation Name,Age,Birthday,Month,Date, Year,Day of Week,Place, Situation Language Function Ability Hard of Hearing Gross Range of Motion Upper Extremity ROM Assessment Within Functional Limits Lower Extremity ROM Assessment Bilaterally Impaired Strength Upper Extremity Strength Assessment Within Functional Limits Lower Extremity Strength Assessment Bilaterally Impaired M6 PT-IP Treatment Start: 12/22/19 12:46 Freq: NEEDED Status: Active Protocol: Document 12/24/19 15:35 [facility]N (Rec: 12/24/19 17:18 LRN [id number]) Physical Therapy Treatment Exercises Exercises Ankle Pumps,Gluteal Sets,Quad Sets,Heel Slides,Supine Hip Abduction,Short Arc Quads M7 PT-IP Assessment and Plan Start: 12/22/19 12:46 Freq: NEEDED Status: Active Protocol: Document 12/25/19 13:06 [facility] (Rec: 12/25/19 14:54 [facility] [id number]) PT Summary Assessment and Plan Potential Rehabilitation Potential Good Status of Condition at Evaluation Evolving Summary Impairments Pain,ROM,Strength,Bed Mobility ,Transfers,Gait,Activity Tolerance Progress Towards Goals Slow Progress due to Pain,Slow Progress due to Activity Tolerance Assessment Summary Pt with low activity tolerance and pain is unable to ambulate more than 3 ft before pain is too high and pt feels she cannot do any more. Pt scheduled for A.M. I&D. Goals Bed Mobility Goal Moderate Assistance Transfer Goal Moderate Assistance,Front Wheeled Walker Gait Goal Moderate Assistance,Front Wheel Walker Gait Distance 50 Days to Meet Goals 10 Frequency of Treatment Frequency Of Treatment Twice a Day Treatment Plan Physical Therapy Treatment Plan Bed Mobility Training,Transfer Training,Gait Training, Therapeutic Exercise,Balance Retraining,Post Op Education, Discharge Planning,Hot or Cold Pack,Neuromuscular Re-ed, Coordination Retraining,Manual Therapy Other Recommendations and Next Treatment transfers, ambulation Focus Recommendations To Nursing Amount of Assist Needed 2 Person Assist Discharge Recommendations PT Discharge Recommendations SNF Rehab Transportation Needs at Discharge Wheelchair/Cabulance
[2019-12-25] MEDS: HYDROMORPHONE 0.5 MG INJ 0.2 MG IV (13:15)
--- NOTE | 2019-12-25 13:47 | PM.PNPO.1 ---
Subjective Subjective Date Patient Seen: 12/25/19 Time Patient Seen: 13:47 Interval history: She is doing well. Pain under control. Exam Vital Signs (past 8 hours): - 12/25/19 07:31 12/25/19 12:09 Temperature 98.7 F 97.6 F Pulse Rate 93 H 89 Respiratory Rate 21 20 Blood Pressure 141/73 H 134/71 Pulse Oximetry 96 96 Oxygen Delivery Method Room Air Oxygen Flow Rate 0 Const Orientation: alert and oriented x3 Back/Spine/Pelvis Other: Wound VAC had a suction leak which I fixed with a Tegaderm. Dressing clean dry intact Objective Labs Result Diagrams: 12/22/19 05:30 Assessment & Plan Post-op Postoperative Procedures: Procedures Operation Date: 12/21/19 07:45 Actual Procedures Side Surgeon p Lumbar wound I&D with wound vac placement Kt Escalera MD Operation Date: 12/23/19 09:00 Actual Procedures Side Surgeon p Incision and Drainage Spine, Wound Vac Exchange Kt Escalera MD I explained to her that Dr. Escalera is unavailable tomorrow and he had asked me to washout her back and change out the wound VAC with possible closure tomorrow. She was fine with going ahead with that. Risks and benefits of surgery were discussed including not limited to medical risk with heart attack, stroke, , DVT, PE, infection, bleeding, scarring, nerve injury with pain numbness weakness paralysis, failure to eradicate infection, failure to alleviate symptoms, inability to close wound, need for further surgery all questions were answered and we will proceed tomorrow morning. Operation Date: 12/26/19 07:45 <No data on this case meets the specified criteria>
[2019-12-25 15:35] VITALS: BP 118/59; PULSE 90; RESP 18; TEMP 36.7; O2SAT 97
[2019-12-25 19:25] VITALS: BP 135/63; PULSE 88; RESP 20; TEMP 36.3; O2SAT 93
[2019-12-25] MEDS: SENNOSIDES 8.6 MG TABLET 17.2 MG PO (20:36)
[2019-12-25] MEDS: FENOFIBRATE 48 MG TABLET PO (20:36)
[2019-12-25] MEDS: TRAZODONE 50 MG TABLET 150 MG PO (20:37)
[2019-12-25 20:38] VITALS: BP 135/63
[2019-12-26] VITALS (18 sets, daily range): BP systolic 98–142; BP diastolic 37–80; PULSE 87–108; RESP 10–18; TEMP 36.1–37; O2SAT 91–97; BMI 43.6
[2019-12-26] MEDS: HYDROMORPHONE 0.5 MG INJ 0.2 MG IV (04:17)
--- NOTE | 2019-12-26 07:28 | PM.PREOP ---
Pre-operative Note Interval Note History & Physical reviewed/Exam performed by Physician: Yes Changes to H&P: No
[2019-12-26] MEDS: LACTATED RINGERS 1,000 ML 42 ML IV (07:43)
--- NOTE | 2019-12-26 07:46 | SUR.HOLD ---
Positive blood return in PICC line. Pt calm, stable, has no questions
--- NOTE | 2019-12-26 08:12 | P.CONS_ITS ---
History of Present Illness Consult details Date Patient Seen: 12/21/19 Time Patient Seen: 14:30 Chief complaint: Evaluate wound. 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 At baseline, she is able to walk using a 4WW indoors/short distances. Discharged to SNF on 11/29 after a stay for lumbar fusion and hardware removal. Unfortunately, her surgical incision dehsiced and she was readmitted for I&D of her back wound with wound vac placement. Skin ulcer noted by [facility] staff at intake. Appears to be shaped like tubing from nelson catheter. The nelson was reportedly filled with murky urine. Patient does not recall any change of the catheter since her previous discharge. She reports limited mobility after discharge for lumbar fusion and she requires assistance to change position in bed and transfer to wheelchair. It sounds as though turning/repositioning in bed was limited at the SNF. Meds Home Medications and Allergies Home Medications Medication Instructions Recorded Confirmed Type fenofibrate 54 mg PO BEDTIME #0 06/15/17 12/21/19 History metformin 1,000 mg PO BID 02/02/18 12/21/19 History gabapentin 600 mg PO TID PRN 04/19/18 12/21/19 History bupropion HCl 300 mg PO DAILY 10/25/18 12/21/19 History trazodone 150 mg PO BEDTIME 10/25/18 12/21/19 History verapamil 80 mg PO BID 10/25/18 12/21/19 History sumatriptan succinate [Imitrex] 6 mg SUBCUT Q2H PRN #30 ml 01/07/19 12/21/19 Rx oxycodone 5 mg PO Q8H PRN 10/29/19 12/21/19 History acetaminophen 650 mg PO Q6HR PRN #60 tab 11/30/19 12/21/19 Rx amoxicillin-pot clavulanate 1 tab PO BID #12 tab 11/30/19 12/21/19 Rx [Augmentin] aspirin 81 mg PO DAILY #60 tab 11/30/19 12/21/19 Rx hydromorphone 2 mg PO Q3H PRN #30 tab 11/30/19 12/21/19 Rx hydroxyzine pamoate 25 mg PO Q4HR PRN #30 cap 11/30/19 12/21/19 Rx cephalexin [Keflex] 500 mg PO QID 12/21/19 12/21/19 History polyethylene glycol 3350 [Miralax] 17 g PO DAILY 12/21/19 12/21/19 History Allergies Allergy/AdvReac Type Severity Reaction Status Date / Time vancomycin Allergy Intermediate Flushing & Verified 12/21/19 07:18 rash Review of Systems Review of Systems ROS: Yes All systems reviewed with the patient and are negative except as otherwise documented Exam Vital Signs (past 8 hours): - 12/26/19 06:00 12/26/19 07:38 Temperature 97.7 F 98.6 F Pulse Rate 87 95 H Respiratory Rate 16 14 Blood Pressure 120/58 L 142/80 H Pulse Oximetry 94 94 Oxygen Delivery Method Room Air Oxygen Flow Rate 0 Const General: cooperative and comfortable Nutritional Appearance: obese HENMT Ears: hearing grossly impaired Eyes Conjunctivae: conjunctivae normal Sclera: sclerae normal Resp Effort & Inspection: normal respiratory effort Cardio Rate: regular rate Rhythm: regular rhythm Back/Spine/Pelvis Other: Wound VAC in place, lower back. Not disturbed. Skin Wounds: wounds noted (Wound #1) R buttock/perineal size (Linear wound in shape/size of nelson tubing traveling from the R buttock to the perineum. Not possible to measure due to patient body habitus, mobility limitations, and pain with movement.), bed dusky red and with slough, drainage serosanguinous, margins with surrounding erythema, without odor and open Neuro General: alert and awake Cognition: normal cognition Motor: muscle tone normal throughout and strength abnormal (Bilateral extremiti es weak x 4, R>L) Sensory Exam: lower extremity (Bilateral foot neuropathy) Extrem General: capillary refill normal and no clubbing, cyanosis or edema Psych Mood: congruent mood Affect: normal affect Judgment: judgment good Objective Labs Result Diagrams: 12/22/19 05:30 Assessment & Plan Assessment and plan (1) Pressure injury of right buttock, stage 3: Problem details: 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 The following factors have been identified that may impair wound healing: Devitalized tissue, Suboptimal granulation tissue, Local infection, Bioburden, Limited mobility, Diabetes, Age > 65. Goals: Remove devitalized tissue in the wound that can inhibit wound healing, Treat infection, Wound closure, Manage comorbidities. Recommendations: MediHoney gel dressing chosen for autolytic debriding and antimicrobial properties. Protect periulcer with barrier film product. Offloading with frequent turning/repositioning. Consider wound sample for c&s to target oral antibiotic therapy if wound fails to improve or deteriorates. Continue excellent blood glucose control. I would be happy to follow patient after discharge in the wound care center. Current visit: Yes Status: Acute
[2019-12-26] MEDS: SODIUM CHLORIDE IRRIG SOLUTION 3,000 ML, GENTAMICIN 240 MG IRR (08:52)
--- NOTE | 2019-12-26 09:55 | PM.OP.1 ---
Operative Date/Time/Diagnoses Date of procedure: 12/26/19 Time of procedure: 09:55 Pre-op diagnosis: Postoperative lumbar wound infection Stage III ulceration on the back and medial aspect of the right thigh. Post-op diagnosis: same Procedure & Clinicians Procedure: Irrigation debridement of deep postoperative lumbar wound infection Same procedure as scheduled: Yes Indications: 69-year-old female who had a revision lumbar surgery several weeks ago. She presented to the clinic with necrosis across her skin as well as a deep infection. She was brought to the operating room by Dr. Escalera twice for washout and placement of a wound VAC. However, as he was unavailable today he asked that I go ahead and repeat her debridement and wound VAC. This was discussed with the patient and she wished to proceed. Risks and benefits of surgery discussed appropriate consents obtained. Surgeon: Andrea Pascal Click Yes if Unassisted: Yes Anesthesia Type: General Operative Notes Findings: None Closure Type: primary Specimen(s): other (Wound cultures) Estimated Blood Loss (mL): 10 Procedure in detail: Patient brought to the operating room and intubated on the stretcher. After the necessary waiting period for aerosol precautions for the moraes virus, she was then rolled over to the well-padded prone position on the Arnel table. Care was taken to pad all prominences. Time-out was performed. She had a large pressure ulceration along the back of the left thigh but I felt would need debridement as well after we took care of the lumbar wound. The old wound VAC was removed and the stitches and abbey removed. The back was prepped and draped in standard sterile fashion. She had already had her routine antibiotic dosing. We first took cultures of the wound, 1 superficial, and 1 going through the fascial layer deep. We then started with sharp incisional debridement of the superficial wound with a Collins. There was a little bit of necrotic tissue that had to be removed but mostly this was removing fibrinous tissue from the edges of the wound. Underlying this, it was primarily pink and healthy appearing. We sharply debrided the superficial tissue all the way down to the fascial layer. The wound was copiously irrigated. We then opened up the fascial sutures. There did not appear to be any necrotic tissue or any purulent fluid below this. There was a little bit of hematoma. This wound was also sharply debrided with the Collins through the muscle tissue. We gently dissected along the lamina and scrape the edges the bone. We cleared off the exposed hardware. This also was copiously irrigated. I thought would be able to close this 3 stellate corners of this wound. A scalpel used to sharply cut the edges of the skin back to healthy tissue and then we cleared off some of the tissue below with Bovie. We then began closure 1st with retention sutures going across the fascia to hold this together. We then loosely reapproximated some of the corners of the wound with PDS in the superficial area. We then used nylon retention sutures to close the 3 corners of this stellate wound. There was still a 2.5 cm central area that was open. Two small wound VAC sponges were placed inside the wound and then a dressing was placed over this. A hole was cut through the dressing and the suction was placed on that and then another dressing on top of it to make sure everything was airtight. This was hooked up to the wound VAC and we had a good suction. The dressing was removed and then we went down to the thigh. This was an approximately 15 x 1.5 cm curved ulceration. This was full thickness. A scalpel was used to sharply debride all the fibrinous tissue as well as scraped back superficial tissue down to pink healthy tissue below. We only had to remove a few mm of tissue to get down to healthy edges. This was irrigated and then we placed a sterile dressing on this. She was then rolled over and extubated brought to recovery room with no complications. Complications: none Post-operative Condition: stable Disposition: PACU Plan for aftercare: Plan is to have Dr. Escalera return in a few days for repeat debridement and wound VAC exchange. The right thigh wound can have localized wound care.
[2019-12-26] MEDS: HYDROMORPHONE 2 MG INJ IV ×2 (10:35→10:44)
--- NOTE | 2019-12-26 11:38 | SUR.PHASEI ---
1120 bed down and locked, call light within reach, SCD's on, report updated. dressing checked by AC RN,. no questions/concerns
[2019-12-26] MEDS: VERAPAMIL 80 MG TABLET PO ×2 (11:54→20:21)
[2019-12-26] MEDS: LACTATED RINGERS 1,000 ML 125 ML IV ×2 (11:55→20:16)
[2019-12-26] MEDS: CEFTRIAXONE 2 GM/50 ML FROZ.PIGGY IV (12:00)
[2019-12-26] MEDS: buPROPion XL 150 MG TAB 300 MG PO (12:04)
[2019-12-26] MEDS: METFORMIN HCL 500 MG TABLET 1000 MG PO ×2 (12:04→17:20)
[2019-12-26] MEDS: ASPIRIN EC 81 MG TABLET PO (12:04)
[2019-12-26] MEDS: OXYCODONE IR 5 MG TABLET PO ×3 (13:31→20:16)
--- NOTE | 2019-12-26 13:50 | CM.DPC ---
DCP Cont: Per Surgeon, pt tolerated I&D well today but pt still has wound vac and pt scheduled for likely final I&D in a couple days with anticipation that the wound can be closed and no wound vac needed at d/c. SW spoke to [facility] admissions February and confirmed that they can accept pt at d/c and they do not need a COVID 19 test prior to admit. MALA updated that MD anticipates closing her wound so no wound vac expected at d/c but February states that if wound vac needed at SNF, they only have continuous wound vacs and not the intermittent wound vac pt has been on and request SW support with confirming their wound vacs would be acceptable. MALA called pt's Dtr Gabbie and updated on [facility] acceptance and additional I&D needed prior to d/c. Gabbie is agreeable and appreciative with plan of [facility] at d/c. Plan: SW to follow for confirming with Surgeon/wound care that continuous wound vac would be acceptable at [facility] if pt needs wound vac at d/c. PASRR previously completed in anticipation of SNF at d/c. KRISTI Muñoz
--- NOTE | 2019-12-26 15:30 | OT.IP.TRT ---
Current Diagnoses Pressure ulcer of right buttock, stage 3 (12/21/19) Urinary tract infection, site not specified (12/21/19) Disruption of external operation (surgical) wound, not elsewhere classified, initial encounter (12/21/19) Arthrodesis status (12/21/19) Surgery Performed Operation Date: 12/21/19 07:45 Actual Procedures p Lumbar wound I&D with wound vac placement - Kt Escalera MD Operation Date: 12/23/19 09:00 Actual Procedures p Incision and Drainage Spine, Wound Vac Exchange - Kt Escalera MD Operation Date: 12/26/19 07:45 Actual Procedures p Incision and Drainage Wound/Spine, debridement of right posterior thigh wound(Not Applicable) - Andrea Pascal MD Occupational Therapy Treatment Note M2 OT-IP Current Condition Start: 12/22/19 12:53 Freq: Status: Active Protocol: Document 12/24/19 10:36 [facility] (Rec: 12/24/19 11:31 [facility] [id number]) Occupational Therapy Current Condition Current Condition Evaluation Date 12/24/19 Treatment Diagnosis I and D of back Diagnosis Onset Date 12/21/19 Post Operative Precautions Lumbar Precautions Log Roll,No Twisting,Limit Bending,Lifting Restriction of 10 lbs,Gait Belt above Incisional Area Weight Bearing Status Weight Bearing Status Weight Bear as Tolerated M3 OT- IP Subjective and Pain Start: 12/22/19 12:53 Freq: Status: Active Protocol: Document 12/26/19 15:30 [facility] (Rec: 12/26/19 15:41 [facility] [id number]) OT- Subjective Occupational Therapy Visit Type Type Administrative Note Visit Start Time 15:30 Notes Pt on HOLD today due to repeat I&D of lumbar and thigh wounds with wound vac placement on lumbar wound. Will re-evaluate pt in AM. M
[2019-12-26] MEDS: GABAPENTIN 600 MG TABLET PO (17:19)
[2019-12-26] MEDS: ACETAMINOPHEN 325 MG TABLET 650 MG PO (17:21)
[2019-12-26] MEDS: FENOFIBRATE 48 MG TABLET PO (20:14)
[2019-12-26] MEDS: TRAZODONE 50 MG TABLET 150 MG PO (20:15)
[2019-12-26] MEDS: NYSTATIN POWDER 15GM 1 APPLIC TOP (20:22)
--- NOTE | 2019-12-26 21:18 | PC.NURSE ---
Addendum entered by Jennifer Coronado R.N. 12/26/19 23:40: CPAP in place and pt resting quietly in bed without signs of distress or discomfort. Original Note: Pt requests pain meds for right buttock ulcer pain as well as back pain. Wound vac dressing to back intact with vac functioning as per surgeon's setting. Scant amount serosanguinous drainage in tubing. Pt incontinent of large stool. Dressing to right posterior buttock soiled and removed. Pt has large open area which was cleansed and dried and therahoney placed along open wound bed. Covered with large allevyn gentle border dressing. Difficult to secure medial aspect d/t moistness of pt's skin. Secured with plastic tape. Encouraged right side lying to allow pressure to be relieved to buttock. Pt medicated for pain as per emar. BL calf scd's in place. Held stool softeners d/t large loose fecal incontinence this evening. Excoriation noted under abdominal pannus R > L. Cleansed, dried and nystatin powder applied. CPAP as per pt's wishes.
[2019-12-27] MEDS: OXYCODONE IR 5 MG TABLET PO ×5 (01:01→20:19)
[2019-12-27 01:20] VITALS: BP 111/47; PULSE 91; RESP 18; TEMP 37; O2SAT 94
[2019-12-27 04:00] VITALS: BP 127/62; PULSE 109; RESP 18; TEMP 37.3; O2SAT 96
[2019-12-27 06:01] LABS: Add Manual Diff / Slide Review NO; Basophils Absolute Auto 100 /uL (0-100); Eosinophils Absolute Auto 400 /uL (0-450); Eosinophils Percent Auto 6.6 % (2-4); Hematocrit 25.4 % (36-46); Hemoglobin 8.3 g/dL (12.0-16.0); Lymphocytes Absolute Auto 1200 /uL (1100-4500); Lymphocytes Percent Auto 20.6 % (25-40); Mean Corpuscular HGB Conc 32.6 % (30-36); Mean Corpuscular Hemoglobin 30.1 PG (26-34); Mean Corpuscular Volume 92.2 fL (80-100); Monocytes Absolute Auto 700 /uL (0-900); Monocytes Percent Auto 11.4 % (3-14); Neutrophils Absolute Auto 3500 /uL (1500-7000); Neutrophils Percent Auto 60.4 % (50-75); Platelet Count 358 X10^3/uL (150-400); Red Blood Cell Count 2.76 X10^6/uL (4.0-5.2); Red Cell Distribution Width 15.3 % (11.6-14.8); White Blood Cell Count 5.8 X10^3/uL (4.5-11.0)
[2019-12-27 06:27] LABS: BUN Creatinine Ratio 10.8 (6-22); Blood Urea Nitrogen 7 mg/dL (7-17); Calcium 8.8 mg/dL (8.4-10.2); Carbon Dioxide 26 mmol/L (22-32); Chloride 108 mmol/L (98-107); Estimated Glomerular Filt Rate > 60.0 mL/min (>60); Glucose 95 mg/dL (80-110); HEMOLYSIS < 15 (0-50); Potassium 3.5 mmol/L (3.4-5.1); Sodium 139 mmol/L (137-145)
[2019-12-27 08:00] VITALS: BP 125/57; PULSE 94; RESP 16; TEMP 37.7; O2SAT 91
[2019-12-27 09:19] VITALS: BMI 43.5
[2019-12-27] MEDS: buPROPion XL 150 MG TAB 300 MG PO (09:22)
[2019-12-27] MEDS: DOCUSATE 100 MG CAPSULE PO ×2 (09:22→20:20)
[2019-12-27] MEDS: ASPIRIN EC 81 MG TABLET PO (09:22)
[2019-12-27] MEDS: METFORMIN HCL 500 MG TABLET 1000 MG PO ×2 (09:22→17:02)
[2019-12-27] MEDS: VERAPAMIL 80 MG TABLET PO ×2 (09:22→20:21)
[2019-12-27] MEDS: ACETAMINOPHEN 325 MG TABLET 650 MG PO (09:23)
--- NOTE | 2019-12-27 10:04 | DIET.PN ---
Dietary Progress Note Assessment: 69y F admitted for repeated (3x) lumbar I&D and installation of wound vac to back and left thigh s/p lumbar fusion r/t chronic back pain and worsening lumbar radiculopathy. Pt was rehabbing at [facility] bw original surgery and admission to acute care. Pt reports 30# unintentional wt loss in past 3mo (12%, severe). Pt attributes wt loss to loss of appetite. Inpatient POs averaging 50% of trays. Pt has high BMI (43.6) however, obese patients lose lean body mass faster than those with smaller body habitus. Pt's PCM is complicating healing of wounds because of negative nitrogen balance disallowing adequate building blocks for tissue repair. Discussed strong nutrition plan c patient who agrees to reccs outlined below. Diet Aides will assist pt in following reccs when ordering meals. HT: 162.5cm WT: 115kg UBW: 130kg (-12% unintentional in 3mo, severe) BMI: 43.6 morbid obesity MNA: 9 malnourished Hilton: 15 poor skin integrity Nutrition Diagnosis: Severe Acute PCM r/t reduced appetite for 3mo aeb 12% unintentional wt loss in 3mo (severe), limited mobility causing physical deconditioning, <50% EERs for 3 mo, pt having repeated I&D (12/21/19, 12/23/19, 12/26/19). Interventions: 1. Recc reducing from 45g to 30g CHO per meal to support preservation of lean body mass and support strict BG control <200, as well as to reduce intake of less ideal food sources r/t low appetite. 2. Recc 150g protein/day (1.3g/kg ABW) to support PCM and positive nitrogen balance for tissue repair. 3. Recc ONS John bid to supply arginine and glutamine for tissue repair/wound healing. Diet Order: Recc CCD2 EER: 1500kcal (-500kcal for healthy wt status), 150g PRO (1.3g/kg per PCM), 3.4L fluids Monitoring/Evaluations: Monitoring daily PRO intake
--- NOTE | 2019-12-27 10:13 | P.PN_ITS ---
Subjective Subjective Date Patient Seen: 12/27/19 Time Patient Seen: 10:13 Interval history: Postop day 1 after repeat irrigation debridement lumbar wound infection and stage III ulcer right thigh with Dr. brown. Patient had previous surgery and washouts with Dr. Escalera. Sitting up in bed no complaints this morning. Exam Vital Signs (past 8 hours): - 12/27/19 04:00 12/27/19 08:00 Temperature 99.1 F 99.9 F H Pulse Rate 109 H 94 H Respiratory Rate 18 16 Blood Pressure 127/62 125/57 L Pulse Oximetry 96 91 Oxygen Delivery Method Nasal Cannula,CPAP Oxygen Flow Rate 0 Narrative Exam Narrative: Alert oriented female sitting up in bed. Obese. Breathing unlabored on room air. Lumbar exam VAC and dressing in place. Back to good suction. No leaks. Demonstrates dorsiflexion plantar flexion bilateral lower extremities Objective Labs Result Diagrams: 12/27/19 05:36 12/27/19 05:36 Labs: Laboratory Results - last 24 hr 12/27/19 12/27/19 05:36 05:36 WBC 5.8 RBC 2.76 L Hgb 8.3 L Hct 25.4 L MCV 92.2 MCH 30.1 MCHC 32.6 RDW 15.3 H Plt Count 358 Neut % (Auto) 60.4 Lymph % (Auto) 20.6 L [place] % (Auto) 11.4 Eos % (Auto) 6.6 H Baso % (Auto) 1.0 Neut # (Auto) 3500 Lymph # (Auto) 1200 [place] # (Auto) 700 Eos # (Auto) 400 Baso # (Auto) 100 Sodium 139 Potassium 3.5 Chloride 108 H Carbon Dioxide 26 BUN 7 Creatinine 0.65 Estimated GFR > 60.0 BUN/Creatinine Ratio 10.8 Glucose 95 Calcium 8.8 Assessment & Plan Post-op Postoperative Procedures: Procedures Operation Date: 12/21/19 07:45 Actual Procedures Side Surgeon p Lumbar wound I&D with wound vac placement Kt Escalera MD Operation Date: 12/23/19 09:00 Actual Procedures Side Surgeon p Incision and Drainage Spine, Wound Vac Exchange Kt Escalera MD Operation Date: 12/26/19 07:45 Actual Procedures Side Surgeon p Incision and Drainage Wound/Spine, debridement of right posterior thigh wound Not Applicable Andrea Pascal MD Status post repeat irrigation debridement and VAC change with Dr. mourning and right thigh wound debridement. Continue VAC. Local care to thigh. Plan to return to the OR in a day or [address] Escalera for repeat VAC change Continue routine care Quality VTE Deep Vein Thrombosis/Pulmonary Embolism Present on Admission: No
--- NOTE | 2019-12-27 10:54 | OT.IP.TRT ---
Current Diagnoses Pressure ulcer of right buttock, stage 3 (12/21/19) Urinary tract infection, site not specified (12/21/19) Disruption of external operation (surgical) wound, not elsewhere classified, initial encounter (12/21/19) Arthrodesis status (12/21/19) Surgery Performed Operation Date: 12/21/19 07:45 Actual Procedures p Lumbar wound I&D with wound vac placement - Kt Escalera MD Operation Date: 12/23/19 09:00 Actual Procedures p Incision and Drainage Spine, Wound Vac Exchange - Kt Escalera MD Operation Date: 12/26/19 07:45 Actual Procedures p Incision and Drainage Wound/Spine, debridement of right posterior thigh wound(Not Applicable) - Andrea Pascal MD Occupational Therapy Treatment Note M2 OT-IP Current Condition Start: 12/22/19 12:53 Freq: Status: Active Protocol: Document 12/24/19 10:36 CCC (Rec: 12/24/19 11:31 CCC [id number]) Occupational Therapy Current Condition Current Condition Evaluation Date 12/24/19 Treatment Diagnosis I and D of back Diagnosis Onset Date 12/21/19 Post Operative Precautions Lumbar Precautions Log Roll,No Twisting,Limit Bending,Lifting Restriction of 10 lbs,Gait Belt above Incisional Area Weight Bearing Status Weight Bearing Status Weight Bear as Tolerated M3 OT- IP Subjective and Pain Start: 12/22/19 12:53 Freq: Status: Active Protocol: Document 12/27/19 10:54 PJM (Rec: 12/27/19 13:47 PJM [id number]) OT- Subjective Occupational Therapy Visit Type Type Treatment Note Visit Start Time 10:00 Visit Stop Time 10:54 Total Visit Minutes 54 Notes Partial co tx with P.T. for mobility. Pt s/p repeat I&D with wound vac placement yesterday but re-eval not needed as no change in functional status or precautions noted. Pt also had R upper medial thigh wound I& D. Occupational Therapy Visit Comments Patient Comments I will need one more surgery tomorrow of the next day to fix the wound on my back. Patient/Caregiver Goals to return to her apartment with caregivers and assist from daughter, to have less pain OT Pain Assessment Pain When Pain Assessed At Rest Pain Present Pain Present Pain Reported Location lower back Intensity 6 Scale Used Numeric (1 - 10) Description Aching,Acute M4 OT- IP ADL's Start: 12/22/19 12:53 Freq: Status: Active Protocol: Document 12/27/19 10:54 PJM (Rec: 12/27/19 13:47 [facility] [id number]) OT ADL-Grooming General Evaluation Grooming Ability Standby Assistance Areas Needing Assistance Retrieving/Set-up of Grooming Items,Applying Deodorant,Face Washing,Glasses OT ADL-Oral Care General Eval Oral Care Ability Standby Assistance Areas of Assistance Brushing Teeth,Managing Dentures,Retrieving/Set-Up of Items Comments Oral Care Comments seated in chair OT ADL-Dressing Comments OT Dressing Comments Pt states she has foley artist, sock aid and ;long shoe horn at home from previous back surgery. OT ADL-Toileting General Evaluation Toileting Ability Total Assistance Areas Needing Assistance Perform Perineal Hygiene Devices Toileting Assistive Devices Toilet Paper Aid Comments OT Toileting Comments Pt unable to reach buttocks for pericare after BM. Provided education re: toilet paper aids and resources for obtaining one. Daughter will assist pt with on line ordering. M6 OT- IP Functional Cognition Start: 12/22/19 12:53 Freq: Status: Active Protocol: Document 12/27/19 10:54 PJM (Rec: 12/27/19 13:47 [facility] [id number]) Cognitive Factors Limiting Selfcare Function Cognitive Ability Level of Alertness Alert Patient Orientation Name,Age,Birthday,Month,Date, Year,Day of Week,Place, Situation Attention Span Ability Capable of Focused Attention, Capable of Sustained Attention Ability to Follow Commands Able to Follow One Step Commands Safety Awareness No Deficits Noted Cognitive Comments Cognitive Assessment Comments Pt alert, oriented with good participation and effort. Motivated to return to her apartment. She recalls log rolling technique M7 OT- IP Mobility and Balance Start: 12/22/19 12:53 Freq: Status: Active Protocol: Document 12/27/19 10:54 PJM (Rec: 12/27/19 13:47 [facility] [id number]) OT- Bed Mobility Assessment Rolling Type of Rolling Roll to Left Level of Assistance Minimal Assistance,Bedrails Supine to Sit Supine to Sit Assist Moderate Assistance,1 Person Assistance Scooting Scooting to Edge of Bed Moderate Assistance,1 Person Assistance OT-Transfer Assessment Sit to and From Stand Sit to and from Stand Minimal Assistance,1 Person Assistance Transfers Transfer Ability Minimal Assistance,2 Person Assistance Technique Transfer Destination Chair Transfer Technique Stand Step Pivot Devices Transfer Assistive Devices Gait Belt,Front Wheeled Walker Comments Mobility Comments Pt stood for 3-4 min x2 for rocio care,, then bandage change by RN on thigh. Pt needed min assist for turn and backing into chair due to BLE fatigue from prior standing. OT- Gait Assessment Gait Gait Assistance Required: Minimum Assistance Distance (Feet) 3 Assistive Devices Assistive Device Gait Belt,Front Wheeled Walker OT- Balance Assessment Sitting Balance and Reactions Static Sitting Balance Ability Good Standing Balance and Reactions Static Standing Balance Ability Good M9 OT- IP Assessment and Plan Start: 12/22/19 12:53 Freq: Status: Active Protocol: Document 12/27/19 10:54 PJM (Rec: 12/27/19 13:47 PJM [id number]) OT Summary Assessment and Plan Potential Rehabilitation Potential Good Summary OT Impairments Pain,Strength,Balance, Functional Mobility,Grooming, Dressing,Toileting,Bathing, Toilet Transfers,Shower Transfers,Activity Tolerance Progress Towards Goals Progressing Toward Goals Assessment Summary Pt making daily progress with mobility and self care with good participation and effort, but will need one additional I&D for care of wound on back. Activity tolerance remains decreased, especially for prolonged standing. Pt ready to progress to grooming standing at sink and showering when wound status permits. Recommend SNF at d/c for further rehab services prior to return home alone with intermittent caregiver assist. Goals Grooming Goal Independent Dressing Goal Independent,Long Handled Shoe Horn,Grinding And Spraying Supervisor,Sock Aid Toileting Goal Independent Bathing Goal Standby Assistance,Grab Bars Toilet Transfer Goal Independent,Grab Bars Shower Transfer Goal Standby Assistance,Tub/Shower Combination,Tub Transfer Bench ,Grab Bars Days to Meet Goals 10 Frequency of Treatment Frequency Of Treatment Once a Day Treatment Plan OT Treatment Plan ADL Training,Functional Mobility,Patient/Family Education,Discharge Planning Other Treatment Recommendations and Next breeding manager front of sink with Treatment Focus recliner behind her. Discharge Recommendations OT Discharge Recommendations SNF Rehab Home Equipment Needs TBD Transportation Needs at Discharge Wheelchair/Cabulance
--- NOTE | 2019-12-27 11:11 | PT.IPTN ---
Current Diagnoses Pressure ulcer of right buttock, stage 3 (12/21/19) Urinary tract infection, site not specified (12/21/19) Disruption of external operation (surgical) wound, not elsewhere classified, initial encounter (12/21/19) Arthrodesis status (12/21/19) Surgery Performed Operation Date: 12/21/19 07:45 Actual Procedures p Lumbar wound I&D with wound vac placement - Kt Escalera MD Operation Date: 12/23/19 09:00 Actual Procedures p Incision and Drainage Spine, Wound Vac Exchange - Kt Escalera MD Operation Date: 12/26/19 07:45 Actual Procedures p Incision and Drainage Wound/Spine, debridement of right posterior thigh wound(Not Applicable) - Andrea Pascal MD Physical Therapy Treatment Note M2 PT-IP Current Condition Start: 12/22/19 12:46 Freq: NEEDED Status: Active Protocol: Document 12/24/19 15:35 LRN (Rec: 12/24/19 17:18 LRN [id number]) Physical Therapy Current Condition Current Condition Evaluation Date 12/24/19 Treatment Diagnosis s/p lumbar wound I&D; difficulty in walking Onset Date 12/21/2019 Precautions Lumbar Precautions Log Roll,No Twisting,Limit Bending,Lifting Restriction of 10 lbs,Gait Belt above Incisional Area Weight Bearing Status Weight Bearing Status Weight Bear as Tolerated M3 PT-IP Subjective Start: 12/22/19 12:46 Freq: NEEDED Status: Active Protocol: Document 12/27/19 10:57 [facility] (Rec: 12/27/19 11:11 [facility] [id number]) Subjective Physical Therapy Visit Type Type Treatment Note Visit Start Time 10:05 Visit Stop Time 11:50 Total Visit Minutes 45 Notes pt seen following spinal drainage and wound vac change 12/26/19 Co-treat with OT Physical Therapy Visit Comments Patient Comments pt sitting up in bed and agrees to PT/OT Therapy Pain Assessment Pain When Pain Assessed At Rest Pain Present Pain Present Pain Reported Location lower back Intensity 6 Scale Used Numeric (1 - 10) Pain Management Techniques Timing of Activity with Medications M4 PT-IP Mobility and Gait Start: 12/22/19 12:46 Freq: NEEDED Status: Active Protocol: Document 12/25/19 13:06 CLB (Rec: 12/25/19 14:54 CLB [id number]) PT-Bed Mobility Assessment Sit to Supine Sit to Supine Moderate Assistance,2 Person Assistance PT-Transfer Assessment Sit to and From Stand Sit to and from Stand Minimal Assistance,1 Person Assistance,Use of Upper Extremities Equipment Transfer Assistive Device Gait Belt,Front Wheeled Walker Orthotic/Prosthetic Devices or Brace: No Transfers Transfer Destination Bed,Chair,Bedside Commode Transfer Technique walked with FWW Transfer Ability Level of Assist Minimal Assistance,1 Person Assistance,Use of Upper Extremities Comments Mobility Comments Pt stood and took a few steps then sat so that BSC could be placed in room. Pt ambulated ~ 2ft then pivoted to sit on BSC requiring Min A. Pt had BM and was assisted with standing balance by MICROBIOLOGY TEACHER and OT performed pericare. Pt then ambulated to bed requiring Min A and Mod A x2 for sit-supine . Pt left in bed with bilateral SCD's on LEs. Pt bed alarm on and all needs within reach. Gait Assessment Gait Gait Assistance Required: Minimum Assistance,1 Person Assist Distance (Feet) 3 Able to Maintain Weight Bearing Status Yes During Gait Assistive Devices Assistive Device Gait Belt,Front Wheeled Walker Gait Deviations General Gait Pattern Decreased Stride Length, Decreased Feet Clearance Factors Limiting Gait Function Factors Limiting Gait Function Decreased Activity Tolerance, Decreased Strength,Pain Comments Gait Comments second person assist with lines. M5 PT-IP Objective Assessments Start: 12/22/19 12:46 Freq: NEEDED Status: Active Protocol: Document 12/24/19 10:35 LRN (Rec: 12/24/19 13:59 LRN [id number]) Orientation Orientation/Cognition Level of Alertness Alert Orientation Name,Age,Birthday,Month,Date, Year,Day of Week,Place, Situation Language Function Ability Hard of Hearing Gross Range of Motion Upper Extremity ROM Assessment Within Functional Limits Lower Extremity ROM Assessment Bilaterally Impaired Strength Upper Extremity Strength Assessment Within Functional Limits Lower Extremity Strength Assessment Bilaterally Impaired M6 PT-IP Treatment Start: 12/22/19 12:46 Freq: NEEDED Status: Active Protocol: Document 12/27/19 10:57 [facility] (Rec: 12/27/19 11:11 [facility] [id number]) Physical Therapy Treatment Exercises Exercises Ankle Pumps,Gluteal Sets,Quad Sets,Heel Slides,Supine Hip Abduction Equipment Issued Equipment Type and Company FWW and gait belt Other Treatments Other Treatment Performed pt transfered with a log roll Mod A to left side of the bed. Pt performed sit-stand x 2 times at edge of bed with Mod A. Pt stood x 3 minutes for sponge bath and cleaning. She then took 3 steps forward with FWW and Mod A for nursing to change dressing. She stood approximately 2-3 minutes. Pt then transfered to the bedside chair with mod A. Needed cues for reaching back for the chair. She needed to perform sit-stand an additional 2 times to assure that she was fully back in the bed side chair. The foot stool was pulled out for her feet. She was given a warm blanket and call light was placed within reach. M7 PT-IP Assessment and Plan Start: 12/22/19 12:46 Freq: NEEDED Status: Active Protocol: Document 12/27/19 10:57 ON LICENSE OF [facility] (Rec: 12/27/19 11:11 ON LICENSE OF [facility] [id number]) PT Summary Assessment and Plan Potential Rehabilitation Potential Good Status of Condition at Evaluation Evolving Summary Impairments Pain,ROM,Strength,Bed Mobility ,Transfers,Gait,Activity Tolerance Progress Towards Goals Slow Progress due to Pain,Slow Progress due to Activity Tolerance Assessment Summary Pt demonstrated improved mobility today and tolerance for standing as well as ambulation. Her stand time was approximately 3 minutes x 2 times. She was a mod A for transfers. She is demonstrating a improvement with strength. Nursing was present during the treatment for dressing change. Pt is scheduled for additional I& D in a few days. She does also have a stage III ulceration being treated on the back medial aspect of the right thigh. Goals Bed Mobility Goal Moderate Assistance Transfer Goal Moderate Assistance,Front Wheeled Walker Gait Goal Moderate Assistance,Front Wheel Walker Gait Distance 50 Days to Meet Goals 4 Frequency of Treatment Frequency Of Treatment Twice a Day Treatment Plan Physical Therapy Treatment Plan Bed Mobility Training,Transfer Training,Gait Training, Therapeutic Exercise,Balance Retraining,Post Op Education, Discharge Planning,Hot or Cold Pack,Neuromuscular Re-ed, Coordination Retraining,Manual Therapy Other Recommendations and Next Treatment transfers, ambulation Focus Recommendations To Nursing Amount of Assist Needed 2 Person Assist Discharge Recommendations PT Discharge Recommendations SNF Rehab Transportation Needs at Discharge Wheelchair/Cabulance
[2019-12-27 11:35] VITALS: BP 120/53; PULSE 93; RESP 17; TEMP 37.1; O2SAT 92
[2019-12-27] MEDS: CEFTRIAXONE 2 GM/50 ML FROZ.PIGGY IV (12:28)
--- NOTE | 2019-12-27 14:26 | PT.IPTN ---
Current Diagnoses Pressure ulcer of right buttock, stage 3 (12/21/19) Urinary tract infection, site not specified (12/21/19) Disruption of external operation (surgical) wound, not elsewhere classified, initial encounter (12/21/19) Arthrodesis status (12/21/19) Surgery Performed Operation Date: 12/21/19 07:45 Actual Procedures p Lumbar wound I&D with wound vac placement - Kt Escalera MD Operation Date: 12/23/19 09:00 Actual Procedures p Incision and Drainage Spine, Wound Vac Exchange - Kt Escalera MD Operation Date: 12/26/19 07:45 Actual Procedures p Incision and Drainage Wound/Spine, debridement of right posterior thigh wound(Not Applicable) - Andrea Pascal MD Physical Therapy Treatment Note M2 PT-IP Current Condition Start: 12/22/19 12:46 Freq: NEEDED Status: Active Protocol: Document 12/24/19 15:35 LRN (Rec: 12/24/19 17:18 LRN [id number]) Physical Therapy Current Condition Current Condition Evaluation Date 12/24/19 Treatment Diagnosis s/p lumbar wound I&D; difficulty in walking Onset Date 12/21/2019 Precautions Lumbar Precautions Log Roll,No Twisting,Limit Bending,Lifting Restriction of 10 lbs,Gait Belt above Incisional Area Weight Bearing Status Weight Bearing Status Weight Bear as Tolerated M3 PT-IP Subjective Start: 12/22/19 12:46 Freq: NEEDED Status: Active Protocol: Document 12/27/19 14:15 [facility] (Rec: 12/27/19 14:26 [facility] [id number]) Subjective Physical Therapy Visit Type Type Treatment Note Visit Start Time 13:10 Visit Stop Time 13:40 Total Visit Minutes 30 Physical Therapy Visit Comments Patient Comments pt has been sitting up in the bedside chair since her AM PT treatment this AM Therapy Pain Assessment Pain When Pain Assessed During Mobility Pain Present Pain Present Pain Reported Location lower back Intensity 5 Scale Used Numeric (1 - 10) Pain Management Techniques Re-positioning,Timing of Activity with Medications M4 PT-IP Mobility and Gait Start: 12/22/19 12:46 Freq: NEEDED Status: Active Protocol: Document 12/25/19 13:06 CLB (Rec: 12/25/19 14:54 CLB [id number]) PT-Bed Mobility Assessment Sit to Supine Sit to Supine Moderate Assistance,2 Person Assistance PT-Transfer Assessment Sit to and From Stand Sit to and from Stand Minimal Assistance,1 Person Assistance,Use of Upper Extremities Equipment Transfer Assistive Device Gait Belt,Front Wheeled Walker Orthotic/Prosthetic Devices or Brace: No Transfers Transfer Destination Bed,Chair,Bedside Commode Transfer Technique walked with FWW Transfer Ability Level of Assist Minimal Assistance,1 Person Assistance,Use of Upper Extremities Comments Mobility Comments Pt stood and took a few steps then sat so that BSC could be placed in room. Pt ambulated ~ 2ft then pivoted to sit on BSC requiring Min A. Pt had BM and was assisted with standing balance by NUMERICAL CONTROL OPERATOR and OT performed pericare. Pt then ambulated to bed requiring Min A and Mod A x2 for sit-supine . Pt left in bed with bilateral SCD's on LEs. Pt bed alarm on and all needs within reach. Gait Assessment Gait Gait Assistance Required: Minimum Assistance,1 Person Assist Distance (Feet) 3 Able to Maintain Weight Bearing Status Yes During Gait Assistive Devices Assistive Device Gait Belt,Front Wheeled Walker Gait Deviations General Gait Pattern Decreased Stride Length, Decreased Feet Clearance Factors Limiting Gait Function Factors Limiting Gait Function Decreased Activity Tolerance, Decreased Strength,Pain Comments Gait Comments second person assist with lines. M5 PT-IP Objective Assessments Start: 12/22/19 12:46 Freq: NEEDED Status: Active Protocol: Document 12/24/19 10:35 LRN (Rec: 12/24/19 13:59 LRN [id number]) Orientation Orientation/Cognition Level of Alertness Alert Orientation Name,Age,Birthday,Month,Date, Year,Day of Week,Place, Situation Language Function Ability Hard of Hearing Gross Range of Motion Upper Extremity ROM Assessment Within Functional Limits Lower Extremity ROM Assessment Bilaterally Impaired Strength Upper Extremity Strength Assessment Within Functional Limits Lower Extremity Strength Assessment Bilaterally Impaired M6 PT-IP Treatment Start: 12/22/19 12:46 Freq: NEEDED Status: Active Protocol: Document 12/27/19 14:15 [facility] (Rec: 12/27/19 14:26 [facility] [id number]) Physical Therapy Treatment Education Education Provided Safety Equipment Issued Equipment Type and Company FWW and gait belt Other Treatments Other Treatment Performed pt transfered from sitting to standing with FWW with Mod A, she transfered to the bedside commode by taking 4 steps, stand to sit on the commode with Mod A and verbal cues for hand placement. Pt had a bowel movement and VARNISHER PLASTICOATER was present to clean her while I supported her in standing following. She then transfered back to bed with mod A, she needed help with her legs to get back into bed and needed assist x 2 to scoot her up in bed. M7 PT-IP Assessment and Plan Start: 12/22/19 12:46 Freq: NEEDED Status: Active Protocol: Document 12/27/19 14:15 [facility] (Rec: 12/27/19 14:26 [facility] [id number]) PT Summary Assessment and Plan Potential Rehabilitation Potential Good Status of Condition at Evaluation Evolving Summary Impairments Pain,ROM,Strength,Bed Mobility ,Transfers,Gait,Activity Tolerance Progress Towards Goals Slow Progress due to Pain,Slow Progress due to Activity Tolerance Assessment Summary The patient is demonstrating improved strength and mobility . She sat up in the bed side chair for over 2 hours and was able to ambulate to the bedside commode this afternoon . Pt is scheduled for additional I& D in a few days . She does also have a stage III ulceration on the right posterior medial thigh that has a dressing on it. Goals Bed Mobility Goal Moderate Assistance Transfer Goal Moderate Assistance,Front Wheeled Walker Gait Goal Moderate Assistance,Front Wheel Walker Gait Distance 50 Days to Meet Goals 4 Frequency of Treatment Frequency Of Treatment Twice a Day Treatment Plan Physical Therapy Treatment Plan Bed Mobility Training,Transfer Training,Gait Training, Therapeutic Exercise,Balance Retraining,Post Op Education, Discharge Planning,Hot or Cold Pack,Neuromuscular Re-ed, Coordination Retraining,Manual Therapy Other Recommendations and Next Treatment transfers, ambulation Focus Recommendations To Nursing Amount of Assist Needed 2 Person Assist Discharge Recommendations PT Discharge Recommendations SNF Rehab Transportation Needs at Discharge Wheelchair/Cabulance
[2019-12-27 15:30] VITALS: BP 139/72; PULSE 102; RESP 16; TEMP 36.7; O2SAT 96
[2019-12-27] MEDS: TRAZODONE 50 MG TABLET 150 MG PO (20:19)
[2019-12-27] MEDS: FENOFIBRATE 48 MG TABLET PO (20:20)
[2019-12-27 20:43] VITALS: BP 126/70; PULSE 96; RESP 16; TEMP 37.2; O2SAT 94
[2019-12-27] MEDS: hydrOXYzine pamoate 25 MG CAPSULE PO (21:42)
[2019-12-28] VITALS (7 sets, daily range): BP systolic 104–133; BP diastolic 48–79; PULSE 83–95; RESP 14–18; TEMP 36.1–37.6; O2SAT 90–95
[2019-12-28] MEDS: OXYCODONE IR 5 MG TABLET PO ×5 (00:15→19:51)
[2019-12-28] MEDS: METFORMIN HCL 500 MG TABLET 1000 MG PO ×2 (08:42→17:08)
[2019-12-28] MEDS: buPROPion XL 150 MG TAB 300 MG PO (08:42)
[2019-12-28] MEDS: ASPIRIN EC 81 MG TABLET PO (08:42)
[2019-12-28] MEDS: DOCUSATE 100 MG CAPSULE PO ×2 (08:42→21:06)
[2019-12-28] MEDS: VERAPAMIL 80 MG TABLET PO ×2 (08:43→21:06)
--- NOTE | 2019-12-28 09:38 | PM.PNPO.1 ---
Subjective Subjective Date Patient Seen: 12/28/19 Time Patient Seen: 09:39 Interval history: Postop day 2 from a repeat irrigation debridement and VAC change lumbar spine and pressure ulcer to thigh. No complaints Exam Vital Signs (past 8 hours): - 12/28/19 03:16 12/28/19 08:43 Temperature 97 F L Pulse Rate 88 84 Respiratory Rate 16 Blood Pressure 104/48 L 119/59 L Pulse Oximetry 92 Oxygen Delivery Method CPAP Oxygen Flow Rate 0 Narrative Exam Narrative: Alert oriented no acute distress sitting in bed. Respiratory unlabored on room air Cardiovascular regular rate and rhythm Lumbar exam with dressing in place back to suction with no leak Jesus catheter in place Demonstrates dorsiflexion plantar flexion bilateral lower extremity Objective Labs Result Diagrams: 12/27/19 05:36 12/27/19 05:36 Assessment & Plan Post-op Postoperative Procedures: Procedures Operation Date: 12/21/19 07:45 Actual Procedures Side Surgeon p Lumbar wound I&D with wound vac placement Kt Escalera MD Operation Date: 12/23/19 09:00 Actual Procedures Side Surgeon p Incision and Drainage Spine, Wound Vac Exchange Kt Escalera MD Operation Date: 12/26/19 07:45 Actual Procedures Side Surgeon p Incision and Drainage Wound/Spine, debridement of right posterior thigh wound Not Applicable Andrea Pascal MD Postop day 2 from most recent VAC change. Plan is to go back to the OR with Dr. Escalera for a VAC change. Await word on date of repeat VAC change. Continue routine inpatient hospital care Quality VTE Deep Vein Thrombosis/Pulmonary Embolism Present on Admission: No
--- NOTE | 2019-12-28 11:05 | PT.IPTN ---
Current Diagnoses Pressure ulcer of right buttock, stage 3 (12/21/19) Urinary tract infection, site not specified (12/21/19) Disruption of external operation (surgical) wound, not elsewhere classified, initial encounter (12/21/19) Arthrodesis status (12/21/19) Surgery Performed Operation Date: 12/21/19 07:45 Actual Procedures p Lumbar wound I&D with wound vac placement - Kt Escalera MD Operation Date: 12/23/19 09:00 Actual Procedures p Incision and Drainage Spine, Wound Vac Exchange - Kt Escalera MD Operation Date: 12/26/19 07:45 Actual Procedures p Incision and Drainage Wound/Spine, debridement of right posterior thigh wound(Not Applicable) - Andrea Pascal MD Operation Date: 12/30/19 10:00 <No data on this case meets the specified criteria> Physical Therapy Treatment Note M2 PT-IP Current Condition Start: 12/22/19 12:46 Freq: NEEDED Status: Active Protocol: Document 12/24/19 15:35 LRN (Rec: 12/24/19 17:18 LRN [id number]) Physical Therapy Current Condition Current Condition Evaluation Date 12/24/19 Treatment Diagnosis s/p lumbar wound I&D; difficulty in walking Onset Date 12/21/2019 Precautions Lumbar Precautions Log Roll,No Twisting,Limit Bending,Lifting Restriction of 10 lbs,Gait Belt above Incisional Area Weight Bearing Status Weight Bearing Status Weight Bear as Tolerated M3 PT-IP Subjective Start: 12/22/19 12:46 Freq: NEEDED Status: Active Protocol: Document 12/28/19 10:38 KS (Rec: 12/28/19 12:55 KS [id number]) Subjective Physical Therapy Visit Type Type Treatment Note Visit Start Time 10:38 Visit Stop Time 11:05 Total Visit Minutes 27 Number of THERMOFORMING OPERATOR Visits 1 Physical Therapy Visit Comments Patient Comments Pt agreeable to working with therapy. Therapy Pain Assessment Pain When Pain Assessed During Mobility Pain Present Pain Present Pain Reported Location lower back Intensity 6 Scale Used Numeric (1 - 10) Pain Behaviors Facial Grimacing,Wincing Pain Management Techniques Re-positioning M4 PT-IP Mobility and Gait Start: 12/22/19 12:46 Freq: NEEDED Status: Active Protocol: Document 12/28/19 10:38 KS (Rec: 12/28/19 12:55 KS [id number]) PT-Bed Mobility Assessment Rolling Type of Rolling Log Rolling,Roll to Left Level of Assist Maximal Assistance,1 Person Assistance Supine to Sit Supine to Sit Moderate Assistance,1 Person Assistance,Bedrails Sit to Supine Sit to Supine Moderate Assistance,1 Person Assistance Scooting Scooting to Edge of Bed Minimal Assistance Scooting Up and Down in Bed Maximum Assistance PT-Transfer Assessment Comments Mobility Comments Pt was supine in bed upon arrival from PT. Performed 1x10 ankle pumps and supine abduction and 1x5 quad sets and heel slides. After LE strengthening exercises, pt agreed to sitting EOB. Max A and cues for logroll to L and Max A and cues for sidelying to sitting EOB. Once seated, pt required support to remain balanced for first 2 min, but after that was able to sit EOB on her own ~ 5 min. Pt used grab bar to scoot towards EOB but reported high level of fatigue and requested to lay back down after 7 total min sitting EOB. Mod A and cues for logroll back into bed. RN called in, Max A x2 for scooting up in bed. Pt left in bed w/ SCDs on and all needs in reach. Gait Assessment Comments Gait Comments Unable to assess at this time d/t pts reported fatigue. PT-Balance Assessment Sitting Balance and Reactions Static Sitting Balance Ability Fair Dynamic Sitting Balance Ability Fair M5 PT-IP Objective Assessments Start: 12/22/19 12:46 Freq: NEEDED Status: Active Protocol: Document 12/24/19 10:35 LRN (Rec: 12/24/19 13:59 LRN [id number]) Orientation Orientation/Cognition Level of Alertness Alert Orientation Name,Age,Birthday,Month,Date, Year,Day of Week,Place, Situation Language Function Ability Hard of Hearing Gross Range of Motion Upper Extremity ROM Assessment Within Functional Limits Lower Extremity ROM Assessment Bilaterally Impaired Strength Upper Extremity Strength Assessment Within Functional Limits Lower Extremity Strength Assessment Bilaterally Impaired M6 PT-IP Treatment Start: 12/22/19 12:46 Freq: NEEDED Status: Active Protocol: Document 12/28/19 10:38 KS (Rec: 12/28/19 12:55 KS [id number]) Physical Therapy Treatment Exercises Exercises Ankle Pumps,Quad Sets,Heel Slides,Supine Hip Abduction Education Education Provided Precautions,Safety Other Treatments Other Treatment Performed LE strengthening M7 PT-IP Assessment and Plan Start: 12/22/19 12:46 Freq: NEEDED Status: Active Protocol: Document 12/28/19 10:38 KS (Rec: 12/28/19 12:55 KS [id number]) PT Summary Assessment and Plan Potential Rehabilitation Potential Good Status of Condition at Evaluation Evolving Summary Impairments Pain,ROM,Strength,Bed Mobility ,Transfers,Gait,Activity Tolerance Progress Towards Goals Slow Progress due to Pain,Slow Progress due to Activity Tolerance Assessment Summary Pt has decreased tolerance for activity this morning as compared to yesterday, but was able to perform LE strengthening including ankle pumps, heel slides, sup abduction, and quad sets. Max A and cues for logroll to L and sidelying to sit. Pt was able to sit use use grab bar to scoot towards EOB, required support to sit EOB for ~2 min , but could then sit up on her own ~5 min before requesting to lay back down. Mod A for logroll back into bed, Max A x2 for scooting up in bed. Pt will benefit from continued bed mobility, strengthening and ambulation and will require SNF rehab to improve functional mobility. Goals Bed Mobility Goal Moderate Assistance Transfer Goal Moderate Assistance,Front Wheeled Walker Gait Goal Moderate Assistance,Front Wheel Walker Gait Distance 50 Days to Meet Goals 4 Frequency of Treatment Frequency Of Treatment Twice a Day Treatment Plan Physical Therapy Treatment Plan Bed Mobility Training,Transfer Training,Gait Training, Therapeutic Exercise,Balance Retraining,Post Op Education, Discharge Planning,Hot or Cold Pack,Neuromuscular Re-ed, Coordination Retraining,Manual Therapy Other Recommendations and Next Treatment transfers, ambulation Focus Recommendations To Nursing Amount of Assist Needed 2 Person Assist Discharge Recommendations PT Discharge Recommendations SNF Rehab Transportation Needs at Discharge Wheelchair/Cabulance
[2019-12-28] MEDS: CEFTRIAXONE 2 GM/50 ML FROZ.PIGGY IV (11:21)
--- NOTE | 2019-12-28 12:04 | OT.IP.TRT ---
Current Diagnoses Pressure ulcer of right buttock, stage 3 (12/21/19) Urinary tract infection, site not specified (12/21/19) Disruption of external operation (surgical) wound, not elsewhere classified, initial encounter (12/21/19) Arthrodesis status (12/21/19) Surgery Performed Operation Date: 12/21/19 07:45 Actual Procedures p Lumbar wound I&D with wound vac placement - Kt Escalera MD Operation Date: 12/23/19 09:00 Actual Procedures p Incision and Drainage Spine, Wound Vac Exchange - Kt Escalera MD Operation Date: 12/26/19 07:45 Actual Procedures p Incision and Drainage Wound/Spine, debridement of right posterior thigh wound(Not Applicable) - Andrea Pascal MD Operation Date: 12/30/19 10:00 <No data on this case meets the specified criteria> Occupational Therapy Treatment Note M2 OT-IP Current Condition Start: 12/22/19 12:53 Freq: Status: Active Protocol: Document 12/24/19 10:36 [facility] (Rec: 12/24/19 11:31 [facility] [id number]) Occupational Therapy Current Condition Current Condition Evaluation Date 12/24/19 Treatment Diagnosis I and D of back Diagnosis Onset Date 12/21/19 Post Operative Precautions Lumbar Precautions Log Roll,No Twisting,Limit Bending,Lifting Restriction of 10 lbs,Gait Belt above Incisional Area Weight Bearing Status Weight Bearing Status Weight Bear as Tolerated M3 OT- IP Subjective and Pain Start: 12/22/19 12:53 Freq: Status: Active Protocol: Document 12/28/19 12:03 [facility] (Rec: 12/28/19 12:04 [facility] [id number]) OT- Subjective Occupational Therapy Visit Type Type Administrative Note Notes Attempted to see pt for OT services. Pt states increased pain and fatigue after being up in the last hour. Declined out of bed ADLs at this time stating that she wants to stay in bed for lunch today. Will hold and continue to follow.
--- NOTE | 2019-12-28 12:11 | CM.DPNOTE ---
Addendum entered by KRISTI Caro 12/29/19 13:56: Update from [facility]: Likely to be able to accept admissions starting Tuesday, resident that was COVID-19+ needed to be sent to [facility]; no other COVID-19+ at this time at [facility] Doris at [facility] LM yesterday stating they were placing admissions on hold while they are awaiting a resident's COVID-19 test result Original Note: DCP Update: [facility] is placing a hold on all admissions d/t findings that a resident is COVID-19+ Requested that Chemical Worker Kate fax referral packets to [facility] and [facility], they and [facility] are the only facilities that are accepting new referrals in [facility] at this time. This ADMINISTRATIVE LAW JUDGE will contact [facility] to review bed availability before using back up options [facility] and [facility] Placed call to Dr Yang; discussed the need for a COVID-19 test for purposes of DC planning only. It is expected by this ADMINISTRATIVE LAW JUDGE that results will be required before pt is able to DC to any SNF. Dr Yang agrees and gives verbal order to EVERETT Koehler to request COVID-[address]. [address] Yang and EVERETT Koehler that COVID-19 test is not being requested d/t new symptoms related to the COVID-19 but rather for purposes of DC planning only DC date unknown at this time; pt will return to the OR for wound vac change but this procedure is not scheduled at this time KRISTI Caro
--- NOTE | 2019-12-28 13:48 | DIET.PN ---
Addendum entered by Kenia Salamanca 12/29/19 11:29: Diet Aides and RD monitoring protein. Pt receiving 50g Pro in food and supplement form tid on meal trays, pt consuming 25-75% of trays and 100% of john estimating her daily PRO intake ~80g/d which is much improved from earlier in the week. We will continue this course as tolerated to support tissue repair. Original Note: Dietary Progress Note F/u regarding protein intake assessment. Pt is enjoying John bid, will continue which provides ~25% PRO needs, moderate POs, pt reports focusing on eating her PRO and fruit/veggies each meal. Will add cheese stick to meal trays for pt to consume as snack between meals for added PRO. HT: 162.5cm WT: 115kg UBW: 130kg (-12% unintentional in 3mo, severe) BMI: 43.6 morbid obesity MNA: 9 malnourished Hilton: 15 poor skin integrity Nutrition Diagnosis: Severe Acute PCM r/t reduced appetite for 3mo aeb 12% unintentional wt loss in 3mo (severe), limited mobility causing physical deconditioning, <50% EERs for 3 mo, pt having repeated I&D (12/21/19, 12/23/19, 12/26/19). Interventions: 1. Recc reducing from 45g to 30g CHO per meal to support preservation of lean body mass and support strict BG control <200, as well as to reduce intake of less ideal food sources r/t low appetite. 2. Recc 150g protein/day (1.3g/kg ABW) to support PCM and positive nitrogen balance for tissue repair. 3. Continue ONS John bid to supply arginine and glutamine for tissue repair/wound healing. 4. Add cheese stick to each tray for pt to snack on bw meals Diet Order: Recc CCD2 EER: 1500kcal (-500kcal for healthy wt status), 150g PRO (1.3g/kg per PCM), 3.4L fluids Monitoring/Evaluations: Monitoring daily PRO intake
--- NOTE | 2019-12-28 14:50 | PT.IPTN ---
Current Diagnoses Pressure ulcer of right buttock, stage 3 (12/21/19) Urinary tract infection, site not specified (12/21/19) Disruption of external operation (surgical) wound, not elsewhere classified, initial encounter (12/21/19) Arthrodesis status (12/21/19) Surgery Performed Operation Date: 12/21/19 07:45 Actual Procedures p Lumbar wound I&D with wound vac placement - Kt Escalera MD Operation Date: 12/23/19 09:00 Actual Procedures p Incision and Drainage Spine, Wound Vac Exchange - Kt Escalera MD Operation Date: 12/26/19 07:45 Actual Procedures p Incision and Drainage Wound/Spine, debridement of right posterior thigh wound(Not Applicable) - Andrea Pascal MD Operation Date: 12/30/19 10:00 <No data on this case meets the specified criteria> Physical Therapy Treatment Note M2 PT-IP Current Condition Start: 12/22/19 12:46 Freq: NEEDED Status: Active Protocol: Document 12/24/19 15:35 LRN (Rec: 12/24/19 17:18 LRN [id number]) Physical Therapy Current Condition Current Condition Evaluation Date 12/24/19 Treatment Diagnosis s/p lumbar wound I&D; difficulty in walking Onset Date 12/21/2019 Precautions Lumbar Precautions Log Roll,No Twisting,Limit Bending,Lifting Restriction of 10 lbs,Gait Belt above Incisional Area Weight Bearing Status Weight Bearing Status Weight Bear as Tolerated M3 PT-IP Subjective Start: 12/22/19 12:46 Freq: NEEDED Status: Active Protocol: Document 12/28/19 14:50 AB (Rec: 12/28/19 16:40 AB [id number]) Subjective Physical Therapy Visit Type Type Treatment Note Visit Start Time 14:50 Visit Stop Time 15:15 Total Visit Minutes 25 Number of COMPUTER PROGRAMMER CHIEF Visits 0 Physical Therapy Visit Comments Patient Comments pt agreeable to do PT Therapy Pain Assessment Pain When Pain Assessed At Rest Pain Present Pain Present Pain Reported Location lower back Intensity 5 Scale Used Numeric (1 - 10) Pain Management Techniques Modification of Treatment,Re- positioning,Timing of Activity with Medications M4 PT-IP Mobility and Gait Start: 12/22/19 12:46 Freq: NEEDED Status: Active Protocol: Document 12/28/19 14:50 AB (Rec: 12/28/19 16:40 AB [id number]) PT-Bed Mobility Assessment Rolling Type of Rolling Log Rolling Level of Assist Moderate Assistance Supine to Sit Supine to Sit Maximum Assistance,1 Person Assistance,Bedrails Scooting Scooting to Edge of Bed Maximum Assistance PT-Transfer Assessment Sit to and From Stand Sit to and from Stand Moderate Assistance,Maximum Assistance,1 Person Assistance ,Use of Upper Extremities Equipment Transfer Assistive Device Gait Belt,Front Wheeled Walker Orthotic/Prosthetic Devices or Brace: No Transfers Transfer Destination Bedside Commode Transfer Technique Stand Step Pivot Transfer Ability Level of Assist Moderate Assistance,1 Person Assistance,Use of Upper Extremities Comments Mobility Comments pt agreeable to do PT. completed log roll supine to sit max A and max cues. required max A on initial sitting for sitting balance. pt with increase posterior trunk LOB during sitting. required max A for scooting to EOB and after repositioning was able to sit on EOB CGA and cues to keep trunk forward. pt requested to use the toilet . completed sit to stand from EOB mod A and cues and completed step transfer using FWW mod A and cues. NAC assisted with hygiene care. pt completed sit to stand from bedside commode mod A and cues and was able to maintain standing using FWW for support min A and was able to take steps to transfer to the chair ~ 3 ft away. pt sat on chair with cues for controlled descent min A provided. Left pt with NAC. Gait Assessment Gait Gait Assistance Required: Moderate Assistance Distance (Feet) 3 Able to Maintain Weight Bearing Status Yes During Gait Assistive Devices Assistive Device Gait Belt,Front Wheeled Walker Orthotic/Prosthetic Devices or Brace: No Gait Deviations General Gait Pattern Antalgic,Decreased Stride Length,Decreased Feet Clearance Factors Limiting Gait Function Factors Limiting Gait Function Decreased Activity Tolerance, Decreased Strength,Limited Range of Motion,Pain,Poor Balance,Poor Safety Awareness Comments Gait Comments pt was able to take steps during transfer using FWW but refused further ambulation afterwards. M5 PT-IP Objective Assessments Start: 12/22/19 12:46 Freq: NEEDED Status: Active Protocol: Document 12/24/19 10:35 LRN (Rec: 12/24/19 13:59 LRN [id number]) Orientation Orientation/Cognition Level of Alertness Alert Orientation Name,Age,Birthday,Month,Date, Year,Day of Week,Place, Situation Language Function Ability Hard of Hearing Gross Range of Motion Upper Extremity ROM Assessment Within Functional Limits Lower Extremity ROM Assessment Bilaterally Impaired Strength Upper Extremity Strength Assessment Within Functional Limits Lower Extremity Strength Assessment Bilaterally Impaired M6 PT-IP Treatment Start: 12/22/19 12:46 Freq: NEEDED Status: Active Protocol: Document 12/28/19 14:50 AB (Rec: 12/28/19 16:40 AB [id number]) Physical Therapy Treatment Education Education Provided Precautions,Safety M7 PT-IP Assessment and Plan Start: 12/22/19 12:46 Freq: NEEDED Status: Active Protocol: Document 12/28/19 14:50 AB (Rec: 12/28/19 16:40 AB [id number]) PT Summary Assessment and Plan Potential Rehabilitation Potential Good Summary Impairments Pain,ROM,Strength,Balance, Coordination,Sensation,Bed Mobility,Transfers,Gait, Activity Tolerance Progress Towards Goals Slow Progress due to Pain,Slow Progress due to Medical Issues,Slow Progress due to Activity Tolerance Assessment Summary pt continues to require mod to max A for mobility and had decrease activity tolerance and unable to ambulate much. pt will require SNF rehab to improve strength and mobility. Goals Bed Mobility Goal Moderate Assistance Transfer Goal Moderate Assistance,Front Wheeled Walker Gait Goal Moderate Assistance,Front Wheel Walker Gait Distance 50 Days to Meet Goals 4 Frequency of Treatment Frequency Of Treatment Twice a Day Treatment Plan Physical Therapy Treatment Plan Bed Mobility Training,Transfer Training,Gait Training, Therapeutic Exercise,Balance Retraining,Post Op Education, Discharge Planning,Hot or Cold Pack,Neuromuscular Re-ed, Coordination Retraining,Manual Therapy Other Recommendations and Next Treatment transfers, ambulation Focus Recommendations To Nursing Amount of Assist Needed 2 Person Assist Discharge Recommendations PT Discharge Recommendations SNF Rehab Transportation Needs at Discharge Wheelchair/Cabulance
--- NOTE | 2019-12-28 15:32 | PC.NURSE ---
Dayshift note: Up out of bed to chair x 2 this shift with PT and OT. FC output 700 ml, dak yellow urine. 50 ml sanguinous drainage to wound vac. Pericare perfomed. X Large loose/soft brown BM this shift. Calls appropriately for staff assistance.
[2019-12-28] MEDS: TRAZODONE 50 MG TABLET 150 MG PO (21:06)
[2019-12-28] MEDS: SENNOSIDES 8.6 MG TABLET 17.2 MG PO (21:06)
[2019-12-28] MEDS: FENOFIBRATE 48 MG TABLET PO (21:06)
[2019-12-29] VITALS (9 sets, daily range): BP systolic 114–147; BP diastolic 58–74; PULSE 74–94; RESP 16–18; TEMP 36.3–37.2; O2SAT 93–95
[2019-12-29] MEDS: OXYCODONE IR 5 MG TABLET PO ×5 (00:49→20:57)
--- NOTE | 2019-12-29 02:03 | PC.NURSE ---
Addendum entered by Liz Jones R.N. 12/29/19 05:18: Wound Vac continues to alarm and when the vac unit is assessed the alarm stops and the vac shows intermittent suctioning. pt has been repositioned several times in hopes vac will cooperate but no luck. pt currently laying towards left side with the best vac function thus far while pt in bed. Addendum entered by Liz Jones R.N. 12/29/19 02:11: pt incontinent of stool. Up to BSC with 2PA and FWW. pt steady but very weak and needed to take many breaks. Large, loose stool, and needed to replace all linen and her gown. Heavy rocio-care provided and dressing to right inner thigh needed to be replaced (5x5 Allevyn border foam). pt very sensitive to rocio-area. Utilizing a pillow to pt's right side to help offload weight to vac tubing (and to assist with skin integrity). 5mg Oxycodone administered for moderate pain. Original Note: NOC Shift. pt AO and receptive to care. Reporting moderate 6/10 pain to surgical site (back). Negative pressure wound vac alarm was on so I reenforced the hydrocolloid with a couple medium sized Tegaderms. Suction ordered at intermittent, 125mmHg and display showing a fluctuation between 75mmHg and 125 with more often set at 100mmHg. Right inner thigh has pressure injury (present on admission), covered with 5x5 Allyvn dressing. Jesus draining to gravity. PICC saline locked. Clear and diminished lungs and hyperactive bowel tones. ISO for pending COVID testing. Aerosol precautions were initiated at 0130 when we placed the patient's BPAP on her. PAPR at room entrance with iso cart.
[2019-12-29] MEDS: buPROPion XL 150 MG TAB 300 MG PO (08:50)
[2019-12-29] MEDS: METFORMIN HCL 500 MG TABLET 1000 MG PO ×2 (08:50→15:58)
[2019-12-29] MEDS: ASPIRIN EC 81 MG TABLET PO (08:50)
[2019-12-29] MEDS: DOCUSATE 100 MG CAPSULE PO (08:50)
[2019-12-29] MEDS: VERAPAMIL 80 MG TABLET PO ×2 (08:52→20:59)
--- NOTE | 2019-12-29 09:57 | PM.PN.1 ---
Subjective Subjective Date Patient Seen: 12/29/19 Time Patient Seen: 09:58 Interval history: The patient complains of right lower extremity spasms of approximately 1 hour duration. Exam Vital Signs (past 8 hours): - 12/29/19 04:45 12/29/19 08:00 12/29/19 08:52 Temperature 98.6 F 98.0 F Pulse Rate 82 84 84 Respiratory Rate 16 18 Blood Pressure 114/68 131/61 131/61 Pulse Oximetry 95 94 Oxygen Delivery Method CPAP Oxygen Flow Rate 0 Narrative Exam Narrative: The patient is resting comfortably in bed. Her wounds are dressed with a wound VAC. Light touch is intact in both lower extremities. Objective Labs Result Diagrams: 12/27/19 05:36 12/27/19 05:36 Assessment & Plan Assessment & Plan narrative: The patient is stable under treatment for wound and decubitus breakdown. Dr. Escalera plans to take her back to the operating room tomorrow morning for a wound exploration, debridement and potential replacement of a new wound VAC dressing. She is having complaints of spasm this morning and does not currently have any antispasm medications ordered. I will make her NPO after midnight for Dr. Escalera's surgery. I will add Flexeril as needed to her medications to help with the spasms. Time Spent With Patient Time with patient: less than 15 minutes Quality VTE Deep Vein Thrombosis/Pulmonary Embolism Present on Admission: No
--- NOTE | 2019-12-29 11:07 | PT.IPTN ---
Current Diagnoses Pressure ulcer of right buttock, stage 3 (12/21/19) Urinary tract infection, site not specified (12/21/19) Disruption of external operation (surgical) wound, not elsewhere classified, initial encounter (12/21/19) Arthrodesis status (12/21/19) Surgery Performed Operation Date: 12/21/19 07:45 Actual Procedures p Lumbar wound I&D with wound vac placement - Kt Escalera MD Operation Date: 12/23/19 09:00 Actual Procedures p Incision and Drainage Spine, Wound Vac Exchange - Kt Escalera MD Operation Date: 12/26/19 07:45 Actual Procedures p Incision and Drainage Wound/Spine, debridement of right posterior thigh wound(Not Applicable) - Andrea Pascal MD Operation Date: 12/30/19 10:00 <No data on this case meets the specified criteria> Physical Therapy Treatment Note M2 PT-IP Current Condition Start: 12/22/19 12:46 Freq: NEEDED Status: Active Protocol: Document 12/24/19 15:35 LRN (Rec: 12/24/19 17:18 LRN [id number]) Physical Therapy Current Condition Current Condition Evaluation Date 12/24/19 Treatment Diagnosis s/p lumbar wound I&D; difficulty in walking Onset Date 12/21/2019 Precautions Lumbar Precautions Log Roll,No Twisting,Limit Bending,Lifting Restriction of 10 lbs,Gait Belt above Incisional Area Weight Bearing Status Weight Bearing Status Weight Bear as Tolerated M3 PT-IP Subjective Start: 12/22/19 12:46 Freq: NEEDED Status: Active Protocol: Document 12/29/19 10:30 KS (Rec: 12/29/19 13:39 KS [id number]) Subjective Physical Therapy Visit Type Type Treatment Note Visit Start Time 10:30 Visit Stop Time 11:07 Total Visit Minutes 37 Notes Partial co-treat w/ OT. Number of COAL PULVERIZING OPERATOR Visits 1 Physical Therapy Visit Comments Patient Comments pt agreeable to do PT Therapy Pain Assessment Pain When Pain Assessed At Rest Pain Present Pain Present Pain Reported Location lower back Intensity 6 Scale Used Numeric (1 - 10) Pain Behaviors Wincing Pain Management Techniques Re-positioning,Timing of Activity with Medications M4 PT-IP Mobility and Gait Start: 12/22/19 12:46 Freq: NEEDED Status: Active Protocol: Document 12/29/19 10:30 KS (Rec: 12/29/19 13:39 KS [id number]) PT-Bed Mobility Assessment Rolling Type of Rolling Log Rolling,Roll to Left Level of Assist Moderate Assistance,1 Person Assistance Supine to Sit Supine to Sit Maximum Assistance,1 Person Assistance,Bedrails Scooting Scooting to Edge of Bed Moderate Assistance PT-Transfer Assessment Sit to and From Stand Sit to and from Stand Minimal Assistance,Moderate Assistance,1 Person Assistance ,Use of Upper Extremities Equipment Transfer Assistive Device Gait Belt,Front Wheeled Walker Transfers Transfer Destination Bedside Commode Transfer Technique Stand Step Pivot Transfer Ability Level of Assist Minimal Assistance,Moderate Assistance,1 Person Assistance ,Use of Upper Extremities Comments Mobility Comments Pt was in bed upon arrival from PT and OT. Mod A and cues for logroll to L side, Max A x1 w/ Min A from OT provided for sidelying<>sitting w/ verbal cues for hand placement . Once sitting, Mod A for scooting EOB w/ cues to use grab bar. Pt maintained sitting balance EOB for ~4 min , then performed sit<>stand Min to Mod A x1 and stand step pivot transfer Min A for FWW management to [facility]. Pt demonstrated good control when lowering onto BS. Pt then sit<>stand from BSC w/ Min A and FWW and ambulated ~3ft to chair. After seated rest break , pt stood Min to Mod A and ambulated CGA ~5 ft towards sink before requesting to sit back down. Pt is CGA to Min A for ambulation, needing cues for quad activation and FWW mgmt. After ambulation, pt demonstrated good carryover of LE strengthening exercises including ankle pumps, quad sets, and heel slides. Pt left in chair w/ all needs in reach. Gait Assessment Gait Gait Assistance Required: Contact Guard Assist,Minimum Assistance,1 Person Assist Distance (Feet) 8 Able to Maintain Weight Bearing Status Yes During Gait Assistive Devices Assistive Device Gait Belt,Front Wheeled Walker Orthotic/Prosthetic Devices or Brace: No Gait Deviations General Gait Pattern Antalgic,Decreased Stride Length,Decreased Feet Clearance Factors Limiting Gait Function Factors Limiting Gait Function Decreased Activity Tolerance, Decreased Strength,Limited Range of Motion,Pain,Poor Balance,Poor Safety Awareness Comments Gait Comments Pt ambualted ~8 ft total today w/ FWW and CGA to Min A w/ chair follow provided by OT. Please refer to mobility section for more details. PT-Balance Assessment Sitting Balance and Reactions Static Sitting Balance Ability Fair Dynamic Sitting Balance Ability Fair M5 PT-IP Objective Assessments Start: 12/22/19 12:46 Freq: NEEDED Status: Active Protocol: Document 12/24/19 10:35 LRN (Rec: 12/24/19 13:59 LRN [id number]) Orientation Orientation/Cognition Level of Alertness Alert Orientation Name,Age,Birthday,Month,Date, Year,Day of Week,Place, Situation Language Function Ability Hard of Hearing Gross Range of Motion Upper Extremity ROM Assessment Within Functional Limits Lower Extremity ROM Assessment Bilaterally Impaired Strength Upper Extremity Strength Assessment Within Functional Limits Lower Extremity Strength Assessment Bilaterally Impaired M6 PT-IP Treatment Start: 12/22/19 12:46 Freq: NEEDED Status: Active Protocol: Document 12/29/19 10:30 KS (Rec: 12/29/19 13:39 KS [id number]) Physical Therapy Treatment Exercises Exercises Ankle Pumps,Quad Sets,Heel Slides Education Education Provided Precautions,Safety Other Treatments Other Treatment Performed LE strengthening M7 PT-IP Assessment and Plan Start: 12/22/19 12:46 Freq: NEEDED Status: Active Protocol: Document 12/29/19 10:30 KS (Rec: 12/29/19 13:39 KS [id number]) PT Summary Assessment and Plan Potential Rehabilitation Potential Good Summary Impairments Pain,ROM,Strength,Balance, Coordination,Sensation,Bed Mobility,Transfers,Gait, Activity Tolerance Progress Towards Goals Slow Progress due to Pain,Slow Progress due to Medical Issues,Slow Progress due to Activity Tolerance Assessment Summary Pt showed improvement w/ mobility and ambulation today, but is still requiring Mod to Max A and cues for bed mobility. CGA to Min A and cues for FWW and quad activation during ambulation. Good carryover demonstrated for LE strengthening exercises. Will benefit from continued strengthening and ambulation and SNF to assess deficits. Goals Bed Mobility Goal Moderate Assistance Transfer Goal Moderate Assistance,Front Wheeled Walker Gait Goal Moderate Assistance,Front Wheel Walker Gait Distance 50 Days to Meet Goals 4 Frequency of Treatment Frequency Of Treatment Twice a Day Treatment Plan Physical Therapy Treatment Plan Bed Mobility Training,Transfer Training,Gait Training, Therapeutic Exercise,Balance Retraining,Post Op Education, Discharge Planning,Hot or Cold Pack,Neuromuscular Re-ed, Coordination Retraining,Manual Therapy Other Recommendations and Next Treatment transfers, ambulation Focus Recommendations To Nursing Amount of Assist Needed 2 Person Assist Discharge Recommendations PT Discharge Recommendations SNF Rehab Transportation Needs at Discharge Wheelchair/Cabulance
--- NOTE | 2019-12-29 11:14 | OT.IP.TRT ---
Current Diagnoses Pressure ulcer of right buttock, stage 3 (12/21/19) Urinary tract infection, site not specified (12/21/19) Disruption of external operation (surgical) wound, not elsewhere classified, initial encounter (12/21/19) Arthrodesis status (12/21/19) Surgery Performed Operation Date: 12/21/19 07:45 Actual Procedures p Lumbar wound I&D with wound vac placement - Kt Escalera MD Operation Date: 12/23/19 09:00 Actual Procedures p Incision and Drainage Spine, Wound Vac Exchange - Kt Escalera MD Operation Date: 12/26/19 07:45 Actual Procedures p Incision and Drainage Wound/Spine, debridement of right posterior thigh wound(Not Applicable) - Andrea Pascal MD Operation Date: 12/30/19 10:00 <No data on this case meets the specified criteria> Occupational Therapy Treatment Note M2 OT-IP Current Condition Start: 12/22/19 12:53 Freq: Status: Active Protocol: Document 12/24/19 10:36 [facility] (Rec: 12/24/19 11:31 [facility] [id number]) Occupational Therapy Current Condition Current Condition Evaluation Date 12/24/19 Treatment Diagnosis I and D of back Diagnosis Onset Date 12/21/19 Post Operative Precautions Lumbar Precautions Log Roll,No Twisting,Limit Bending,Lifting Restriction of 10 lbs,Gait Belt above Incisional Area Weight Bearing Status Weight Bearing Status Weight Bear as Tolerated M3 OT- IP Subjective and Pain Start: 12/22/19 12:53 Freq: Status: Active Protocol: Document 12/29/19 11:14 PJ (Rec: 12/29/19 13:09 PJ [id number]) OT- Subjective Occupational Therapy Visit Type Type Treatment Note Visit Start Time 10:30 Visit Stop Time 11:14 Total Visit Minutes 44 Notes Co tx with P.T. for safety with mobility and to manage equipment. Occupational Therapy Visit Comments Patient Comments I got woken up at 3 or 4 in the morning last night because of my bowels. Patient/Caregiver Goals to get through next surgery and go to rehab to get stronger OT Pain Assessment Pain When Pain Assessed After Treatment Pain Present Pain Present Pain Reported Location lower back Intensity 6 Scale Used Numeric (1 - 10) Description Aching,Acute Pain Behaviors Facial Grimacing,Guarding, Wincing Management Techniques Distraction,Re-positioning, Timing of Activity with Medications M4 OT- IP ADL's Start: 12/22/19 12:53 Freq: Status: Active Protocol: Document 12/29/19 11:14 PJM (Rec: 12/29/19 13:09 PJM [id number]) OT ADL-Grooming General Evaluation Grooming Ability Standby Assistance Areas Needing Assistance Retrieving/Set-up of Grooming Items,Combing/Brushing Hair, Face Washing,Glasses Comments OT Grooming Comments seated in chair OT ADL-Oral Care General Eval Oral Care Ability Minimal Assistance Areas of Assistance Brushing Teeth,Managing Dentures Devices Oral Care Devices Toothbrush Comments Oral Care Comments needs assist to rinse dentures at sink OT ADL-Toileting General Evaluation Toileting Ability Total Assistance Areas Needing Assistance Empty Catheter or Colostomy, Perform Perineal Hygiene Comments OT Toileting Comments nelson in place, incontinent of bowel over night M6 OT- IP Functional Cognition Start: 12/22/19 12:53 Freq: Status: Active Protocol: Document 12/27/19 10:54 PJM (Rec: 12/27/19 13:47 PJM [id number]) Cognitive Factors Limiting Selfcare Function Cognitive Ability Level of Alertness Alert Patient Orientation Name,Age,Birthday,Month,Date, Year,Day of Week,Place, Situation Attention Span Ability Capable of Focused Attention, Capable of Sustained Attention Ability to Follow Commands Able to Follow One Step Commands Safety Awareness No Deficits Noted Cognitive Comments Cognitive Assessment Comments Pt alert, oriented with good participation and effort. Motivated to return to her apartment. She recalls log rolling technique M7 OT- IP Mobility and Balance Start: 12/22/19 12:53 Freq: Status: Active Protocol: Document 12/29/19 11:14 PJM (Rec: 12/29/19 13:09 PJM [id number]) OT- Bed Mobility Assessment Rolling Type of Rolling Roll to Right Level of Assistance Moderate Assistance,1 Person Assistance,Bedrails Supine to Sit Supine to Sit Assist Minimal Assistance,Maximum Assistance,2 Person Assistance ,Bedrails Scooting Scooting to Edge of Bed Maximum Assistance,1 Person Assistance,Bedrails OT-Transfer Assessment Sit to and From Stand Sit to and from Stand Moderate Assistance,1 Person Assistance Transfers Transfer Ability Minimal Assistance,2 Person Assistance Technique Transfer Destination Bedside Commode,Chair Transfer Technique Stand Step Pivot Devices Transfer Assistive Devices Gait Belt,Front Wheeled Walker OT- Gait Assessment Gait Gait Assistance Required: Minimum Assistance Distance (Feet) 8 Comments Gait Ability Comments 3 + 5 feet with one seated rest OT- Balance Assessment Sitting Balance and Reactions Static Sitting Balance Ability Fair Standing Balance and Reactions Static Standing Balance Ability Fair M8 OT- IP Objective Assessments Start: 12/22/19 12:53 Freq: Status: Active Protocol: Document 12/24/19 10:36 [facility] (Rec: 12/24/19 11:31 CCC [id number]) OT Gross Range of Motion Upper Extremity Range of Motion Assessment Bilaterally Impaired ROM Impairments B shld 0-45 OT Strength Upper Extremity Strength Assessment Within Functional Limits Comments Strength Comments grossly 4/5 OT- Coordination Assessment Upper Extremity Finger to Nose Test Within Functional Limits Finger Tapping Test Within Functional Limits OT-Muscle Tone Assessment Muscle Tone WNL Yes OT Sensation Assessment Location Right Upper Extremity Light Touch Intact/Normal Edema Edema Absent M9 OT- IP Assessment and Plan Start: 12/22/19 12:53 Freq: Status: Active Protocol: Document 12/29/19 11:14 PJM (Rec: 12/29/19 13:09 PJM [id number]) OT Summary Assessment and Plan Potential Rehabilitation Potential Good Summary OT Impairments Pain,Strength,Balance, Functional Mobility,Grooming, Dressing,Toileting,Bathing, Toilet Transfers,Shower Transfers,Activity Tolerance Progress Towards Goals Slow Progress due to Medical Issues,Slow Progress due to Activity Tolerance Assessment Summary Per RN, pt will have another I&D tomorrow and possible wound closure with removal of wound vac. Pt increased ambulation distance today with encouragement. Two person assist for safety due to need to manage wound vac and have chair follow during mobility. Pt motivated to increased independence for eventual return home after further rehab at [facility]. Goals Grooming Goal Independent Dressing Goal Independent,Long Handled Shoe Horn,Personnel Consultant,Sock Aid Toileting Goal Independent Bathing Goal Standby Assistance,Grab Bars Toilet Transfer Goal Independent,Grab Bars Shower Transfer Goal Standby Assistance,Tub/Shower Combination,Tub Transfer Bench ,Grab Bars Days to Meet Goals 9 Frequency of Treatment Frequency Of Treatment Once a Day Treatment Plan OT Treatment Plan ADL Training,Functional Mobility,Patient/Family Education,Discharge Planning Other Treatment Recommendations and Next search engine optimization specialist front of sink with Treatment Focus recliner behind her. Discharge Recommendations OT Discharge Recommendations SNF Rehab Home Equipment Needs TBD pending progress Transportation Needs at Discharge Wheelchair/Cabulance
[2019-12-29] MEDS: CYCLOBENZAPRINE 5 MG TABLET PO (11:30)
[2019-12-29] MEDS: CEFTRIAXONE 2 GM/50 ML FROZ.PIGGY IV (11:30)
--- NOTE | 2019-12-29 12:43 | PT.IPTN ---
Current Diagnoses Pressure ulcer of right buttock, stage 3 (12/21/19) Urinary tract infection, site not specified (12/21/19) Disruption of external operation (surgical) wound, not elsewhere classified, initial encounter (12/21/19) Arthrodesis status (12/21/19) Surgery Performed Operation Date: 12/21/19 07:45 Actual Procedures p Lumbar wound I&D with wound vac placement - Kt Escalera MD Operation Date: 12/23/19 09:00 Actual Procedures p Incision and Drainage Spine, Wound Vac Exchange - Kt Escalera MD Operation Date: 12/26/19 07:45 Actual Procedures p Incision and Drainage Wound/Spine, debridement of right posterior thigh wound(Not Applicable) - Andrea Pascal MD Operation Date: 12/30/19 10:00 <No data on this case meets the specified criteria> Physical Therapy Treatment Note M2 PT-IP Current Condition Start: 12/22/19 12:46 Freq: NEEDED Status: Active Protocol: Document 12/24/19 15:35 LRN (Rec: 12/24/19 17:18 LRN [id number]) Physical Therapy Current Condition Current Condition Evaluation Date 12/24/19 Treatment Diagnosis s/p lumbar wound I&D; difficulty in walking Onset Date 12/21/2019 Precautions Lumbar Precautions Log Roll,No Twisting,Limit Bending,Lifting Restriction of 10 lbs,Gait Belt above Incisional Area Weight Bearing Status Weight Bearing Status Weight Bear as Tolerated M3 PT-IP Subjective Start: 12/22/19 12:46 Freq: NEEDED Status: Active Protocol: Document 12/29/19 12:43 AB (Rec: 12/29/19 13:44 AB [email or web address]) Subjective Physical Therapy Visit Type Type Treatment Note Visit Start Time 12:43 Visit Stop Time 12:58 Total Visit Minutes 15 Number of GUSSET FOLDER Visits 0 Physical Therapy Visit Comments Patient Comments pt requesting to go back to bed Therapy Pain Assessment Pain When Pain Assessed At Rest Pain Present Pain Present Pain Reported Location lower back Intensity 6 Scale Used Numeric (1 - 10) Pain Management Techniques Re-positioning,Timing of Activity with Medications M4 PT-IP Mobility and Gait Start: 12/22/19 12:46 Freq: NEEDED Status: Active Protocol: Document 12/29/19 12:43 AB (Rec: 12/29/19 13:44 AB [id number]) PT-Bed Mobility Assessment Rolling Type of Rolling Log Rolling Level of Assist Maximal Assistance Sit to Supine Sit to Supine Maximum Assistance,Bedrails PT-Transfer Assessment Sit to and From Stand Sit to and from Stand Maximum Assistance,1 Person Assistance,Use of Upper Extremities Equipment Transfer Assistive Device Gait Belt,Front Wheeled Walker Orthotic/Prosthetic Devices or Brace: No Transfers Transfer Destination Bed Transfer Technique Stand Step Pivot Transfer Ability Level of Assist Minimal Assistance,1 Person Assistance,Use of Upper Extremities Comments Mobility Comments pt stated I want to go to bed . c/o 6/10 back pain. completed sit to stand max A and cues and was able to transfer to the bed using FWW min A and cues. completed sit to supine max A and max cues. positioned pt in bed. Call light and table placed within reach. M5 PT-IP Objective Assessments Start: 12/22/19 12:46 Freq: NEEDED Status: Active Protocol: Document 12/24/19 10:35 LRN (Rec: 12/24/19 13:59 LRN [id number]) Orientation Orientation/Cognition Level of Alertness Alert Orientation Name,Age,Birthday,Month,Date, Year,Day of Week,Place, Situation Language Function Ability Hard of Hearing Gross Range of Motion Upper Extremity ROM Assessment Within Functional Limits Lower Extremity ROM Assessment Bilaterally Impaired Strength Upper Extremity Strength Assessment Within Functional Limits Lower Extremity Strength Assessment Bilaterally Impaired M6 PT-IP Treatment Start: 12/22/19 12:46 Freq: NEEDED Status: Active Protocol: Document 12/29/19 12:43 AB (Rec: 12/29/19 13:44 AB [email or web address]) Physical Therapy Treatment Education Education Provided Precautions,Safety M7 PT-IP Assessment and Plan Start: 12/22/19 12:46 Freq: NEEDED Status: Active Protocol: Document 12/29/19 12:43 AB (Rec: 12/29/19 13:44 AB [id number]) PT Summary Assessment and Plan Potential Rehabilitation Potential Fair Summary Impairments Pain,ROM,Strength,Balance, Coordination,Sensation,Tone, Cognition,Bed Mobility, Transfers,Gait,Activity Tolerance Progress Towards Goals Slow Progress due to Pain,Slow Progress due to Medical Issues,Slow Progress due to Activity Tolerance Assessment Summary pt improving slowly with mobility. requires max A for sit to stand but was able to complete transfer using FWW with min A step pivot. pt will benefit from SNF rehab to improve strength and mobility . Goals Bed Mobility Goal Moderate Assistance Transfer Goal Moderate Assistance,Front Wheeled Walker Gait Goal Moderate Assistance,Front Wheel Walker Gait Distance 50 Days to Meet Goals 5 Frequency of Treatment Frequency Of Treatment Twice a Day Treatment Plan Physical Therapy Treatment Plan Bed Mobility Training,Transfer Training,Gait Training, Therapeutic Exercise,Balance Retraining,Post Op Education, Discharge Planning,Hot or Cold Pack,Neuromuscular Re-ed, Coordination Retraining,Manual Therapy Other Recommendations and Next Treatment transfers, ambulation Focus Recommendations To Nursing Amount of Assist Needed 2 Person Assist Discharge Recommendations PT Discharge Recommendations SNF Rehab Transportation Needs at Discharge Wheelchair/Cabulance
--- NOTE | 2019-12-29 13:38 | PC.NURSE ---
Day shift note: Patient awake, alert, and very pleasant. Up with PT multiple times, up OOB to chair for lunch. Wound Vac in place at ordered intermittent suction with sanguinous drainage. Pain controlled with Oxycodone 5 mg as ordered, with adequate relief. Order obtaine for Flxeril for muscle spams, by Dr. JAIN. Patient understands she will be NPO after MN for surgery tomorrow by Dr. AQUINO. SCDs continuously in place while in bed. Precautions maintained as ordered. did not use Cpap during this shift. FC secure in place, with caution with tubing and skin, draining clear yellow urine per gravity. Repositioning in bed, waffle cushion, and pillows for support. High fall risk precautions maintained, call light within reach.
[2019-12-29] MEDS: TRAZODONE 50 MG TABLET 150 MG PO (20:57)
[2019-12-29] MEDS: FENOFIBRATE 48 MG TABLET PO (20:58)
[2019-12-29] MEDS: SODIUM CHLORIDE 0.9% FLUSH 10 ML IV (21:44)
[2019-12-30] VITALS (25 sets, daily range): BP systolic 123–160; BP diastolic 59–81; PULSE 74–110; RESP 10–20; TEMP 36–37.1; O2SAT 93–100
[2019-12-30] MEDS: OXYCODONE IR 5 MG TABLET PO ×3 (03:43→20:21)
--- NOTE | 2019-12-30 06:33 | PC.NURSE ---
Addendum entered by Liz Jones R.N. 12/30/19 06:40: CPAP removed by pt at 0639. O2 sats WNL. Helped reposition pt in bed, utilizing bed. Original Note: NOC shift. pt AO and receptive to care. pt assisting with reposition in bed and communicating needs. CPAP on with pulse ox, PAPR utilized during CPAP use. Jesus draining to gravity. PICC saline locked and appropriate. Wound Vac holding 125mmHg, intermittent suction. pt NPO since midnight with only a couple sips of water with Oxycodone at 0340 for 5/10 pain. Diminished lung sounds with expiratory wheezes in anterior bases.
[2019-12-30] MEDS: HYDROMORPHONE 0.5 MG INJ 0.2 MG IV (08:28)
--- NOTE | 2019-12-30 09:51 | CM.DPC ---
DCP/continued: Reviewed chart. Patient undergoing I&D today. It is anticipated that patient will be medically stable within the next 24-48hrs. [facility] following closely for potential admit. Awaiting on wether or not they will be able to accept secondary to COVID restrictions. Other facilities that have been faxed are [facility] and [facility]. All other's not accepting due to COVID. Patient previously at [facility] and patient/family do not want her back there. A.P.S. investigating contact is Kerry [phone]. P: team to follow closely and check in with [facility] in AM for bed. KRISTI Mckeon
[2019-12-30] MEDS: LACTATED RINGERS 1,000 ML 42 ML IV ×2 (10:15→12:33)
--- NOTE | 2019-12-30 10:30 | SUR.HOLD ---
Pt brought down to the OR, consents obtained and pt then brought immediately into the OR.
--- NOTE | 2019-12-30 10:33 | SUR.HOLD ---
Blood sugar checked per Dr. Hook, resulted 87.
--- NOTE | 2019-12-30 10:43 | PC.NURSE ---
1000: Patient off the floor to surgery by Mayte FLOYD, patient awake, alert, and pleasant. VSS and afebrile. 350 ml urine output via FC prior to leaving for surgery. NPO since MN, medicated for pain as ordered. Scheduled surgery by Dr. AQUINO
--- NOTE | 2019-12-30 11:16 | PT-IP ANOTE ---
Pt held this AM d/t in surgery. RN reported pt should be back in a couple hours. Check on pt in PM.
[2019-12-30] MEDS: CEFTRIAXONE 2 GM/50 ML FROZ.PIGGY IV (11:20)
[2019-12-30] MEDS: SODIUM CHLORIDE IRRIG SOLUTION 3,000 ML, GENTAMICIN 240 MG IRR (11:39)
--- NOTE | 2019-12-30 13:16 | PM.OP.1 ---
Operative Date/Time/Diagnoses Date of procedure: 12/30/19 Time of procedure: 10:16 Pre-op diagnosis: 1. Lumbar wound infection 2. Lumbar wound necrosis Post-op diagnosis: same Procedure & Clinicians Procedure: 1. Lumbar wound irrigation and debridement of skin and muscle 2. Exchange of wound vac Same procedure as scheduled: Yes Indications: Ms. Desai is here for repeat I&D and wound vac exchange. She is 4 weeks post lumbar surgery and developed skin necrosis between her incisions and has infection of her wound as result of skin necrosis and wound dehiscience. She had 3 previoius I&D since the recent admission. She is back for scheduled wound debridement and wound vac exchange. Surgeon: Kt Escalera Click Yes if Unassisted: Yes Anesthesia Type: General Operative Notes Closure Type: primary Specimen(s): none sent Applied: drain(s) Estimated Blood Loss (mL): 10 Blood products transfused: none Procedure in detail: Patient was seen in the preoperative area. Risks and benefits of the surgery was discussed with the patient. Informed consent was obtained from the patient and placed in the chart. Surgical site was marked. Patient was taken to the operative room. General anesthesia was administered. IV antibiotic was given as prescribed. Patient was placed into a prone position on the Arnel table. Patient's previously placed wound vac was removed in the operating room. Patient's back was then prepped and draped in the sterile fashion. Time-out was performed at this time. The wound was inspected. The wound surface on all sides are healthy appearing with neovascularization. A perez was used to debride the wound by removing unhealthy appearing muscle and fascia as well as subcutaneous tissue. The skin along with some subcuatenous fat was excised until bleeding vascular tissue was encountered on edges. The wound was irrigated copiously with sterile normal saline with gentamicin using the pulse-lavage. After initial irrigation with 2 L, additional debridement was performed by excising additional unhealthy appearing tissue until bleeding vascular tissue was encountered on all edges of the wound. Another 1 L of sterile normal saline with gentamicin was used to irrigate the wound again at this time. At this time the wound is clean and without any visible unhealthy appearing tissue on all edges from skin down to fascia. Additional closure was performed using #1 nylon suture. Attempted closure of the wound was performed. The skin edges on the center part of the wound started to appear pale and lacking sufficient blood flow. It did not improve after 5 minutes of observation. Decision was made to remove the center sutures for attempted closure. Wound vac sponge was placed after trimming to fit the wound. The sealing adhesive was placed in layers to cover the wound. The suction tubing was then placed onto the wound. The wound was then tested to show intact and good seal. The tubing was then attached to the wound vac machine. The machine was set to intermitent on 125 mmHg. I plan to bring the patient back in a few days for repeat I&D and wound vac exchange vs closure. Patient will be admitted to inpatient hospital and placed on IV antibiotics. Complications: none Post-operative Condition: stable Disposition: Acute Care Plan for aftercare: Admit back to inpatient hospital
[2019-12-30] MEDS: HYDROMORPHONE 2 MG INJ IV ×4 (13:40→14:00)
--- NOTE | 2019-12-30 14:20 | SUR.PHASEI ---
Pt recovered in OR per guidelines. Pt medicated with Dilaudid for pain. Stable PACU stay. Report called to EVERETT Koehler. Awaiting till 1430 for transport for pain med guidelines.
--- NOTE | 2019-12-30 14:34 | PT-IP ANOTE ---
Pt not back from surgery at 1434 per RN so follow up with pt in AM.
--- NOTE | 2019-12-30 14:57 | SUR.PHASEI ---
Pt transported up to room 210 on 2/l nc and left in stable condition under the care of rn. Zakia.
--- NOTE | 2019-12-30 14:57 | PC.NURSE ---
Day shift note: Patient arrived at 1447 from PACU to AC room 210, awake, alert, and relieved she had the procedure. Received on O2 at 2L via NC, O2 sats 95%. VSS. Wound VAC in place as ordered, dressing to back, with sealed borders. FC in place, draining clear yellow urine, 275 ml emptied upon arrival. NO nausea, tolerating sips of water. SCDs in place. Call light within reach, bed alarm active. Report given to Chinyere FLOYD at 1515.
--- NOTE | 2019-12-30 14:57 | SUR.PHASEI ---
Late entry: dressing to r thigh cleansed and changed by Dr. Escalera during surgery.
[2019-12-30] MEDS: METFORMIN HCL 500 MG TABLET 1000 MG PO (16:12)
[2019-12-30] MEDS: TRAZODONE 50 MG TABLET 150 MG PO (20:21)
[2019-12-30] MEDS: DOCUSATE 100 MG CAPSULE PO (20:21)
[2019-12-30] MEDS: GABAPENTIN 600 MG TABLET PO (20:22)
[2019-12-30] MEDS: SENNOSIDES 8.6 MG TABLET 17.2 MG PO (20:22)
[2019-12-30] MEDS: VERAPAMIL 80 MG TABLET PO (20:29)
[2019-12-30] MEDS: FENOFIBRATE 48 MG TABLET PO (20:29)
[2019-12-30] MEDS: hydrOXYzine pamoate 25 MG CAPSULE PO (22:03)
[2019-12-30] MEDS: ACETAMINOPHEN 325 MG TABLET 650 MG PO (22:03)
[2019-12-31] VITALS (11 sets, daily range): BP systolic 97–134; BP diastolic 46–75; PULSE 73–89; RESP 16–18; TEMP 36.1–37.1; O2SAT 88–99
[2019-12-31] MEDS: OXYCODONE IR 5 MG TABLET PO ×5 (00:19→20:36)
[2019-12-31] MEDS: METFORMIN HCL 500 MG TABLET 1000 MG PO ×2 (08:38→18:16)
[2019-12-31] MEDS: ASPIRIN EC 81 MG TABLET PO (08:38)
[2019-12-31] MEDS: buPROPion XL 150 MG TAB 300 MG PO (08:38)
[2019-12-31] MEDS: VERAPAMIL 80 MG TABLET PO ×2 (08:39→20:46)
--- NOTE | 2019-12-31 08:58 | PM.PN.1 ---
Subjective Subjective Date Patient Seen: 12/31/19 Time Patient Seen: 08:58 Interval history: The patient reports she has been comfortable since her surgery yesterday. Exam Vital Signs (past 8 hours): - 12/31/19 05:46 Temperature 98.7 F Pulse Rate 79 Respiratory Rate 16 Blood Pressure 122/75 Pulse Oximetry 98 Oxygen Delivery Method CPAP Oxygen Flow Rate 0 Narrative Exam Narrative: Patient is resting comfortably in bed. Wound VAC is in place. Light touch is intact in both lower extremities. Objective Labs Result Diagrams: 12/27/19 05:36 12/27/19 05:36 Assessment & Plan Assessment & Plan narrative: Stable after repeat incision and drainage and wound VAC placement for necrotic infected wound. Her plan is to return to the operating room in several days for repeat I and D, and possible closure or repeat wound VAC placement. Time Spent With Patient Time with patient: less than 15 minutes Quality VTE Deep Vein Thrombosis/Pulmonary Embolism Present on Admission: No
--- NOTE | 2019-12-31 09:10 | OT.IP.TRT ---
Addendum entered and electronically signed by Esther Self OT 12/31/19 10:12: Pt bp after transfer 106/47 and 97/46, O2 on RA initailly 85% and after use of spirometer able to get to 91-93%, nursing notified on numbers. Original Note: Current Diagnoses Pressure ulcer of right buttock, stage 3 (12/21/19) Urinary tract infection, site not specified (12/21/19) Disruption of external operation (surgical) wound, not elsewhere classified, initial encounter (12/21/19) Arthrodesis status (12/21/19) Surgery Performed Operation Date: 12/21/19 07:45 Actual Procedures p Lumbar wound I&D with wound vac placement - Kt Escalera MD Operation Date: 12/23/19 09:00 Actual Procedures p Incision and Drainage Spine, Wound Vac Exchange - Kt Escalera MD Operation Date: 12/26/19 07:45 Actual Procedures p Incision and Drainage Wound/Spine, debridement of right posterior thigh wound(Not Applicable) - Andrea Pascal MD Operation Date: 12/30/19 10:00 Actual Procedures p Irrigation and Debridement lumbar wound skin, fascia and muscle, wound vac sponge exchange - Kt Escalera MD Occupational Therapy Treatment Note M2 OT-IP Current Condition Start: 12/22/19 12:53 Freq: Status: Active Protocol: Document 12/24/19 10:36 [facility] (Rec: 12/24/19 11:31 [facility] [id number]) Occupational Therapy Current Condition Current Condition Evaluation Date 12/24/19 Treatment Diagnosis I and D of back Diagnosis Onset Date 12/21/19 Post Operative Precautions Lumbar Precautions Log Roll,No Twisting,Limit Bending,Lifting Restriction of 10 lbs,Gait Belt above Incisional Area Weight Bearing Status Weight Bearing Status Weight Bear as Tolerated M3 OT- IP Subjective and Pain Start: 12/22/19 12:53 Freq: Status: Active Protocol: Document 12/31/19 09:58 [facility] (Rec: 12/31/19 10:09 [facility] [id number]) OT- Subjective Occupational Therapy Visit Type Type Treatment Note Visit Start Time 09:10 Visit Stop Time 09:44 Total Visit Minutes 34 Occupational Therapy Visit Comments Patient Comments Pt agreeable to get up with OT /PT. Pt just completed another I and D on 12/30/19. Patient/Caregiver Goals to get through next surgery and go to rehab to get stronger OT Pain Assessment Pain When Pain Assessed At Rest Pain Present Pain Present Pain Reported Location lower back Intensity 6 Scale Used Numeric (1 - 10) M4 OT- IP ADL's Start: 12/22/19 12:53 Freq: Status: Active Protocol: Document 12/31/19 09:58 [facility] (Rec: 12/31/19 10:09 [facility] [id number]) OT ADL-Grooming General Evaluation Grooming Ability Standby Assistance Areas Needing Assistance Retrieving/Set-up of Grooming Items,Combing/Brushing Hair, Face Washing,Glasses Comments OT Grooming Comments seated in chair OT ADL-Oral Care General Eval Oral Care Ability Standby Assistance Devices Oral Care Devices Toothbrush Comments Oral Care Comments set-up of items OT ADL-Dressing General Eval Lower Body Dressing Ability Total Assistance OT ADL-Toileting General Evaluation Toileting Ability Total Assistance Comments OT Toileting Comments nelson in place OT ADL-Bathing Comments OT Bathing Comments Able to assist to help wash/ dry her back. M5 OT- IP IADL's Start: 12/22/19 12:53 Freq: Status: Active Protocol: Document 12/24/19 10:36 [facility] (Rec: 12/24/19 11:31 [facility] [id number]) OT-Instrumental Activities of Daily Living Deficits IADL Deficits Identified Deficits Home Safety Awareness Awareness of Need for Assistance at Home Good Awareness Ability to Problem Solve Emergency Able to Problem Solve Situations Medication Management Medication Management No Deficits Identified Money Management Money Management No Deficits Identified Meal Preparation Meal Preparation Caregiver Provides Assist Reservation Manager Reservation Manager Caregiver Provides Assist Driving Driving Caregiver Provides Assist M6 OT- IP Functional Cognition Start: 12/22/19 12:53 Freq: Status: Active Protocol: Document 12/27/19 10:54 [facility] (Rec: 12/27/19 13:47 [facility] [id number]) Cognitive Factors Limiting Selfcare Function Cognitive Ability Level of Alertness Alert Patient Orientation Name,Age,Birthday,Month,Date, Year,Day of Week,Place, Situation Attention Span Ability Capable of Focused Attention, Capable of Sustained Attention Ability to Follow Commands Able to Follow One Step Commands Safety Awareness No Deficits Noted Cognitive Comments Cognitive Assessment Comments Pt alert, oriented with good participation and effort. Motivated to return to her apartment. She recalls log rolling technique M7 OT- IP Mobility and Balance Start: 12/22/19 12:53 Freq: Status: Active Protocol: Document 12/31/19 09:58 [facility] (Rec: 12/31/19 10:09 [facility] [id number]) OT- Bed Mobility Assessment Rolling Type of Rolling Roll to Left Level of Assistance Moderate Assistance,2 Person Assistance Supine to Sit Supine to Sit Assist Moderate Assistance,2 Person Assistance OT-Transfer Assessment Sit to and From Stand Sit to and from Stand Moderate Assistance,2 Person Assistance Transfers Transfer Ability Moderate Assistance,2 Person Assistance Technique Transfer Destination Bed,Chair Devices Transfer Assistive Devices Gait Belt,Front Wheeled Walker Comments Mobility Comments Pt MODA for bed mobilty and able to get her legs off the edge of the bed on her own and mainly needing assist to help get her trunk upright from sidelying. Pt during transfer , noted right leg a bit unsteady and at times needing to cue pt to keep her leg straight and tighten her quads to keep from buckling. Assist to also help to steady the FWW as well. OT- Balance Assessment Sitting Balance and Reactions Static Sitting Balance Ability Poor Standing Balance and Reactions Static Standing Balance Ability Poor Comments Other Balance Tests/Deviations/Treatment Pt having more posterior lean : while sitting today and needing MODA and assist for bed cane to sit upright. M8 OT- IP Objective Assessments Start: 12/22/19 12:53 Freq: Status: Active Protocol: Document 12/24/19 10:36 [facility] (Rec: 12/24/19 11:31 [facility] [id number]) OT Gross Range of Motion Upper Extremity Range of Motion Assessment Bilaterally Impaired ROM Impairments B shld 0-45 OT Strength Upper Extremity Strength Assessment Within Functional Limits Comments Strength Comments grossly 4/5 OT- Coordination Assessment Upper Extremity Finger to Nose Test Within Functional Limits Finger Tapping Test Within Functional Limits OT-Muscle Tone Assessment Muscle Tone WNL Yes OT Sensation Assessment Location Right Upper Extremity Light Touch Intact/Normal Edema Edema Absent M9 OT- IP Assessment and Plan Start: 12/22/19 12:53 Freq: Status: Active Protocol: Document 12/31/19 09:58 [facility] (Rec: 12/31/19 10:09 [facility] [id number]) OT Summary Assessment and Plan Potential Rehabilitation Potential Good Summary OT Impairments Pain,Strength,Balance, Functional Mobility,Grooming, Dressing,Toileting,Bathing, Toilet Transfers,Shower Transfers,Activity Tolerance Progress Towards Goals Slow Progress due to Pain,Slow Progress due to Medical Issues,Slow Progress due to Activity Tolerance Assessment Summary Pt just having another I and D yesterday and able to tolerate bed mobility and transfer to the recliner. Pt appears in good spirits in light of per pt having to have another I and D completed in another couple of days. When medically stable, return to skilled rehab prior to going home. Goals Grooming Goal Independent Dressing Goal Independent,Long Handled Shoe Horn,Purification Supervisor,Sock Aid Toileting Goal Independent Bathing Goal Standby Assistance,Grab Bars Toilet Transfer Goal Independent,Grab Bars Shower Transfer Goal Standby Assistance,Tub/Shower Combination,Tub Transfer Bench ,Grab Bars Days to Meet Goals 14 Frequency of Treatment Frequency Of Treatment Once a Day Treatment Plan OT Treatment Plan ADL Training,Functional Mobility,Patient/Family Education,Discharge Planning Other Treatment Recommendations and Next treating engineer front of sink with Treatment Focus recliner behind her. Discharge Recommendations OT Discharge Recommendations SNF Rehab Home Equipment Needs TBD pending progress Transportation Needs at Discharge Wheelchair/Cabulance
--- NOTE | 2019-12-31 09:30 | PT.IPTN ---
Current Diagnoses Pressure ulcer of right buttock, stage 3 (12/21/19) Urinary tract infection, site not specified (12/21/19) Disruption of external operation (surgical) wound, not elsewhere classified, initial encounter (12/21/19) Arthrodesis status (12/21/19) Surgery Performed Operation Date: 12/21/19 07:45 Actual Procedures p Lumbar wound I&D with wound vac placement - Kt Escalera MD Operation Date: 12/23/19 09:00 Actual Procedures p Incision and Drainage Spine, Wound Vac Exchange - Kt Escalera MD Operation Date: 12/26/19 07:45 Actual Procedures p Incision and Drainage Wound/Spine, debridement of right posterior thigh wound(Not Applicable) - Andrea Pascal MD Operation Date: 12/30/19 10:00 Actual Procedures p Irrigation and Debridement lumbar wound skin, fascia and muscle, wound vac sponge exchange - Kt Escalera MD Physical Therapy Treatment Note M2 PT-IP Current Condition Start: 12/22/19 12:46 Freq: NEEDED Status: Active Protocol: Document 12/24/19 15:35 [facility] (Rec: 12/24/19 17:18 [facility] [id number]) Physical Therapy Current Condition Current Condition Evaluation Date 12/24/19 Treatment Diagnosis s/p lumbar wound I&D; difficulty in walking Onset Date 12/21/2019 Precautions Lumbar Precautions Log Roll,No Twisting,Limit Bending,Lifting Restriction of 10 lbs,Gait Belt above Incisional Area Weight Bearing Status Weight Bearing Status Weight Bear as Tolerated M3 PT-IP Subjective Start: 12/22/19 12:46 Freq: NEEDED Status: Active Protocol: Document 12/31/19 12:56 [facility] (Rec: 12/31/19 13:01 [facility] [id number]) Subjective Physical Therapy Visit Type Type Treatment Note Visit Start Time 09:10 Visit Stop Time 09:30 Total Visit Minutes 20 Number of CONSULTING NURSE Visits 0 Physical Therapy Visit Comments Patient Comments Pt agreeable to get up Therapy Pain Assessment Pain When Pain Assessed During Mobility Pain Present Pain Present Pain Reported Location lower back Pain Management Techniques Re-positioning M4 PT-IP Mobility and Gait Start: 12/22/19 12:46 Freq: NEEDED Status: Active Protocol: Document 12/31/19 12:56 [facility] (Rec: 12/31/19 13:01 [facility] [id number]) PT-Bed Mobility Assessment Rolling Type of Rolling Roll to Left Level of Assist Moderate Assistance,2 Person Assistance Supine to Sit Supine to Sit Moderate Assistance,2 Person Assistance Scooting Scooting to Edge of Bed Moderate Assistance PT-Transfer Assessment Sit to and From Stand Sit to and from Stand Moderate Assistance,2 Person Assistance,Use of Upper Extremities Equipment Transfer Assistive Device Gait Belt,Front Wheeled Walker Transfers Transfer Destination Chair Transfer Technique Stand Step Pivot Transfer Ability Level of Assist Moderate Assistance,2 Person Assistance Comments Mobility Comments Pt able to do log roll and sit to stand with cueing throughout with mod A x2. She required assistance for R knee to prevent buckling during transfer. She had difficulty with taking steps but was able to sequence with cueing for wb into UEs into walker & quad set on WB leg. M5 PT-IP Objective Assessments Start: 12/22/19 12:46 Freq: NEEDED Status: Active Protocol: Document 12/24/19 10:35 [facility] (Rec: 12/24/19 13:59 [facility] [id number]) Orientation Orientation/Cognition Level of Alertness Alert Orientation Name,Age,Birthday,Month,Date, Year,Day of Week,Place, Situation Language Function Ability Hard of Hearing Gross Range of Motion Upper Extremity ROM Assessment Within Functional Limits Lower Extremity ROM Assessment Bilaterally Impaired Strength Upper Extremity Strength Assessment Within Functional Limits Lower Extremity Strength Assessment Bilaterally Impaired M6 PT-IP Treatment Start: 12/22/19 12:46 Freq: NEEDED Status: Active Protocol: Document 12/31/19 12:56 [facility] (Rec: 12/31/19 13:01 [facility] [id number]) Physical Therapy Treatment Education Education Provided Safety M7 PT-IP Assessment and Plan Start: 12/22/19 12:46 Freq: NEEDED Status: Active Protocol: Document 12/31/19 12:56 [facility] (Rec: 12/31/19 13:01 [facility] [id number]) PT Summary Assessment and Plan Potential Rehabilitation Potential Fair Summary Impairments Pain,ROM,Strength,Balance, Coordination,Sensation,Tone, Cognition,Bed Mobility, Transfers,Gait,Activity Tolerance Progress Towards Goals Slow Progress due to Pain,Slow Progress due to Medical Issues,Slow Progress due to Activity Tolerance Assessment Summary Pt did better this AM with her bed mobility with abilityt o assist more with rolling. Sit to stand is more difficult, but pt did have surgery for I& D again yesterday which likely affected her progress.S he was also unable to particiapte in PT yesterday d/t being in surgery most of the day. She was very motivated and participatory during session but had difficulty with R knee buckling in standing. Goals Bed Mobility Goal Moderate Assistance Transfer Goal Moderate Assistance,Front Wheeled Walker Gait Goal Moderate Assistance,Front Wheel Walker Gait Distance 50 Days to Meet Goals 5 Frequency of Treatment Frequency Of Treatment Twice a Day Treatment Plan Physical Therapy Treatment Plan Bed Mobility Training,Transfer Training,Gait Training, Therapeutic Exercise,Balance Retraining,Post Op Education, Discharge Planning,Hot or Cold Pack,Neuromuscular Re-ed, Coordination Retraining,Manual Therapy Other Recommendations and Next Treatment transfers,bed mobility Focus Recommendations To Nursing Amount of Assist Needed 2 Person Assist Discharge Recommendations PT Discharge Recommendations SNF Rehab Transportation Needs at Discharge Wheelchair/Cabulance
--- NOTE | 2019-12-31 12:00 | OT.IP.TRT ---
Current Diagnoses Pressure ulcer of right buttock, stage 3 (12/21/19) Urinary tract infection, site not specified (12/21/19) Disruption of external operation (surgical) wound, not elsewhere classified, initial encounter (12/21/19) Arthrodesis status (12/21/19) Surgery Performed Operation Date: 12/21/19 07:45 Actual Procedures p Lumbar wound I&D with wound vac placement - Kt Escalera MD Operation Date: 12/23/19 09:00 Actual Procedures p Incision and Drainage Spine, Wound Vac Exchange - Kt Escalera MD Operation Date: 12/26/19 07:45 Actual Procedures p Incision and Drainage Wound/Spine, debridement of right posterior thigh wound(Not Applicable) - Andrea Pascal MD Operation Date: 12/30/19 10:00 Actual Procedures p Irrigation and Debridement lumbar wound skin, fascia and muscle, wound vac sponge exchange - Kt Escalera MD Occupational Therapy Treatment Note M2 OT-IP Current Condition Start: 12/22/19 12:53 Freq: Status: Active Protocol: Document 12/24/19 10:36 [facility] (Rec: 12/24/19 11:31 [facility] [id number]) Occupational Therapy Current Condition Current Condition Evaluation Date 12/24/19 Treatment Diagnosis I and D of back Diagnosis Onset Date 12/21/19 Post Operative Precautions Lumbar Precautions Log Roll,No Twisting,Limit Bending,Lifting Restriction of 10 lbs,Gait Belt above Incisional Area Weight Bearing Status Weight Bearing Status Weight Bear as Tolerated M3 OT- IP Subjective and Pain Start: 12/22/19 12:53 Freq: Status: Active Protocol: Document 12/31/19 12:02 [facility] (Rec: 12/31/19 12:14 [facility] [id number]) OT- Subjective Occupational Therapy Visit Type Type Treatment Note Visit Start Time 11:37 Visit Stop Time 12:00 Total Visit Minutes 23 Occupational Therapy Visit Comments Patient Comments Went to see pt for second time due to PT needing assist to transfer back to the bed and that pt's legs now buckling. Patient/Caregiver Goals to get through next surgery and go to rehab to get stronger M4 OT- IP ADL's Start: 12/22/19 12:53 Freq: Status: Active Protocol: Document 12/31/19 09:58 [facility] (Rec: 12/31/19 10:09 [facility] [id number]) OT ADL-Grooming General Evaluation Grooming Ability Standby Assistance Areas Needing Assistance Retrieving/Set-up of Grooming Items,Combing/Brushing Hair, Face Washing,Glasses Comments OT Grooming Comments seated in chair OT ADL-Oral Care General Eval Oral Care Ability Standby Assistance Devices Oral Care Devices Toothbrush Comments Oral Care Comments set-up of items OT ADL-Dressing General Eval Lower Body Dressing Ability Total Assistance OT ADL-Toileting General Evaluation Toileting Ability Total Assistance Comments OT Toileting Comments nelson in place OT ADL-Bathing Comments OT Bathing Comments Able to assist to help wash/ dry her back. M5 OT- IP IADL's Start: 12/22/19 12:53 Freq: Status: Active Protocol: Document 12/24/19 10:36 [facility] (Rec: 12/24/19 11:31 [facility] [id number]) OT-Instrumental Activities of Daily Living Deficits IADL Deficits Identified Deficits Home Safety Awareness Awareness of Need for Assistance at Home Good Awareness Ability to Problem Solve Emergency Able to Problem Solve Situations Medication Management Medication Management No Deficits Identified Money Management Money Management No Deficits Identified Meal Preparation Meal Preparation Caregiver Provides Assist Anodizing Line Operator Anodizing Line Operator Caregiver Provides Assist Driving Driving Caregiver Provides Assist M6 OT- IP Functional Cognition Start: 12/22/19 12:53 Freq: Status: Active Protocol: Document 12/27/19 10:54 [facility] (Rec: 12/27/19 13:47 [facility] [id number]) Cognitive Factors Limiting Selfcare Function Cognitive Ability Level of Alertness Alert Patient Orientation Name,Age,Birthday,Month,Date, Year,Day of Week,Place, Situation Attention Span Ability Capable of Focused Attention, Capable of Sustained Attention Ability to Follow Commands Able to Follow One Step Commands Safety Awareness No Deficits Noted Cognitive Comments Cognitive Assessment Comments Pt alert, oriented with good participation and effort. Motivated to return to her apartment. She recalls log rolling technique M7 OT- IP Mobility and Balance Start: 12/22/19 12:53 Freq: Status: Active Protocol: Document 12/31/19 12:02 [facility] (Rec: 12/31/19 12:14 [facility] [id number]) OT- Bed Mobility Assessment Sit to Supine Sit to Supine Assist MAX A,2 Person Assistance OT-Transfer Assessment Sit to and From Stand Sit to and from Stand Maximum Assistance,2 Person Assistance Devices Transfer Assistive Devices Gait Belt,Front Wheeled Walker Comments Mobility Comments Pt very weak in her legs and not able to stand all the way and needing MAX A X 2 to stand and also for the FWW to be shortened. Pt able to stand for approx 30 seconds with MAX A X 2 with FWW while nursing able to switch out the recliner for the bed. Pt afterwards able to stand with MAX A X 2 with FWW and take small side step up towards the head of the bed. M8 OT- IP Objective Assessments Start: 12/22/19 12:53 Freq: Status: Active Protocol: Document 12/24/19 10:36 [facility] (Rec: 12/24/19 11:31 [facility] [id number]) OT Gross Range of Motion Upper Extremity Range of Motion Assessment Bilaterally Impaired ROM Impairments B shld 0-45 OT Strength Upper Extremity Strength Assessment Within Functional Limits Comments Strength Comments grossly 4/5 OT- Coordination Assessment Upper Extremity Finger to Nose Test Within Functional Limits Finger Tapping Test Within Functional Limits OT-Muscle Tone Assessment Muscle Tone WNL Yes OT Sensation Assessment Location Right Upper Extremity Light Touch Intact/Normal Edema Edema Absent M9 OT- IP Assessment and Plan Start: 12/22/19 12:53 Freq: Status: Active Protocol: Document 12/31/19 09:58 [facility] (Rec: 12/31/19 10:09 [facility] [id number]) OT Summary Assessment and Plan Potential Rehabilitation Potential Good Summary OT Impairments Pain,Strength,Balance, Functional Mobility,Grooming, Dressing,Toileting,Bathing, Toilet Transfers,Shower Transfers,Activity Tolerance Progress Towards Goals Slow Progress due to Pain,Slow Progress due to Medical Issues,Slow Progress due to Activity Tolerance Assessment Summary Pt having a harder time for the second session and in tears as upset not doing as well as this morning. Able to encourage pt and talk to pt that she is doing well considering that she has had multiple surgeries and motivated to get better. Goals Grooming Goal Independent Dressing Goal Independent,Long Handled Shoe Horn,Machine Rebuilder,Sock Aid Toileting Goal Independent Bathing Goal Standby Assistance,Grab Bars Toilet Transfer Goal Independent,Grab Bars Shower Transfer Goal Standby Assistance,Tub/Shower Combination,Tub Transfer Bench ,Grab Bars Days to Meet Goals 14 Frequency of Treatment Frequency Of Treatment Once a Day Treatment Plan OT Treatment Plan ADL Training,Functional Mobility,Patient/Family Education,Discharge Planning Other Treatment Recommendations and Next padding gluer front of sink with Treatment Focus recliner behind her. Discharge Recommendations OT Discharge Recommendations SNF Rehab Home Equipment Needs TBD pending progress Transportation Needs at Discharge Wheelchair/Cabulance
--- NOTE | 2019-12-31 12:39 | CM.DPNOTE ---
DCP continued: EMR reviewed: CM/Rn spoke with [facility] and they are currently not accepting patients due to COVID-19 issues and are not sure when they will be able to accept patients again. Cm/Rn called [facility] since they are taking patients again as of today and am having them review patients clinicals for possible admission. During AM rounds it was stated that patient still has at least two to three days here on a wound Vac and another surgical procedure prior to D/C. CM department will continue to follow to determine placement for patient. CM/ RN will also call [facility] and check in with them about when they think they will be able to accept patients again since they have already said they would accept patient prior to current covid-19 issue. Fatimah Riggs RN
[2019-12-31] MEDS: CEFTRIAXONE 2 GM/50 ML FROZ.PIGGY IV (12:54)
[2019-12-31] MEDS: SODIUM CHLORIDE 0.9% FLUSH 10 ML IV (12:54)
--- NOTE | 2019-12-31 12:56 | PT.IPTN ---
Current Diagnoses Pressure ulcer of right buttock, stage 3 (12/21/19) Urinary tract infection, site not specified (12/21/19) Disruption of external operation (surgical) wound, not elsewhere classified, initial encounter (12/21/19) Arthrodesis status (12/21/19) Surgery Performed Operation Date: 12/21/19 07:45 Actual Procedures p Lumbar wound I&D with wound vac placement - Kt Escalera MD Operation Date: 12/23/19 09:00 Actual Procedures p Incision and Drainage Spine, Wound Vac Exchange - Kt Escalera MD Operation Date: 12/26/19 07:45 Actual Procedures p Incision and Drainage Wound/Spine, debridement of right posterior thigh wound(Not Applicable) - Andrea Pascal MD Operation Date: 12/30/19 10:00 Actual Procedures p Irrigation and Debridement lumbar wound skin, fascia and muscle, wound vac sponge exchange - Kt Escalera MD Physical Therapy Treatment Note M2 PT-IP Current Condition Start: 12/22/19 12:46 Freq: NEEDED Status: Active Protocol: Document 12/24/19 15:35 [facility] (Rec: 12/24/19 17:18 [facility] [id number]) Physical Therapy Current Condition Current Condition Evaluation Date 12/24/19 Treatment Diagnosis s/p lumbar wound I&D; difficulty in walking Onset Date 12/21/2019 Precautions Lumbar Precautions Log Roll,No Twisting,Limit Bending,Lifting Restriction of 10 lbs,Gait Belt above Incisional Area Weight Bearing Status Weight Bearing Status Weight Bear as Tolerated M3 PT-IP Subjective Start: 12/22/19 12:46 Freq: NEEDED Status: Active Protocol: Document 12/31/19 12:28 [facility] (Rec: 12/31/19 12:56 [facility] [id number]) Subjective Physical Therapy Visit Type Type Treatment Note Visit Start Time 11:30 Visit Stop Time 12:00 Total Visit Minutes 30 Number of DENTURE MODEL MAKER Visits 0 Physical Therapy Visit Comments Patient Comments Pt frustrated d/t having difficulty getting up with nursing Therapy Pain Assessment Pain When Pain Assessed During Mobility Pain Present Pain Present Pain Reported Location lower back Pain Behaviors Crying,[place] Pain Management Techniques Re-positioning M4 PT-IP Mobility and Gait Start: 12/22/19 12:46 Freq: NEEDED Status: Active Protocol: Document 12/31/19 12:28 [facility] (Rec: 12/31/19 12:56 [facility] [id number]) PT-Bed Mobility Assessment Rolling Type of Rolling Log Rolling,Roll to Right Level of Assist Maximal Assistance Sit to Supine Sit to Supine Maximum Assistance,2 Person Assistance Scooting Scooting Up and Down in Bed Maximum Assistance PT-Transfer Assessment Sit to and From Stand Sit to and from Stand Maximum Assistance,2 Person Assistance Equipment Transfer Assistive Device Gait Belt,Front Wheeled Walker Transfers Transfer Destination Bed Comments Mobility Comments Pt stood from chair with max A x2 with assist for R knee buckling. D/t L knee buckling also, pt had to return to sitting as she was having trouble standing. Pt was able to scoot fwd back in chair with cuieng. She stood again with max A x2 with OT and PT assisting with blocking of B knees and was able to stand for about 20 sec with max Ax2. Pt sat again and then stood again with chair set up in front of bed. Pt stood again Max x2 for about 30 sec while chair was pulled from behind her and bed placed there. She did log roll into bed and helped with arms and legs some . Assisted in moving legs in bed. M5 PT-IP Objective Assessments Start: 12/22/19 12:46 Freq: NEEDED Status: Active Protocol: Document 12/24/19 10:35 [facility] (Rec: 12/24/19 13:59 [facility] [id number]) Orientation Orientation/Cognition Level of Alertness Alert Orientation Name,Age,Birthday,Month,Date, Year,Day of Week,Place, Situation Language Function Ability Hard of Hearing Gross Range of Motion Upper Extremity ROM Assessment Within Functional Limits Lower Extremity ROM Assessment Bilaterally Impaired Strength Upper Extremity Strength Assessment Within Functional Limits Lower Extremity Strength Assessment Bilaterally Impaired M6 PT-IP Treatment Start: 12/22/19 12:46 Freq: NEEDED Status: Active Protocol: Document 12/31/19 12:28 [facility] (Rec: 12/31/19 12:56 [facility] [id number]) Physical Therapy Treatment Education Education Provided Safety M7 PT-IP Assessment and Plan Start: 12/22/19 12:46 Freq: NEEDED Status: Active Protocol: Document 12/31/19 12:28 [facility] (Rec: 12/31/19 12:56 [facility] [id number]) PT Summary Assessment and Plan Potential Rehabilitation Potential Fair Summary Impairments Pain,ROM,Strength,Balance, Coordination,Sensation,Tone, Cognition,Bed Mobility, Transfers,Gait,Activity Tolerance Progress Towards Goals Slow Progress due to Pain,Slow Progress due to Medical Issues,Slow Progress due to Activity Tolerance Assessment Summary Pt able to help some with treamtne but had more difficulty with sit to industrial accountant this later session likely d /t legs feeling weak and being lower in the chair. When walker was adjusted to lower, she was able to stand better and help more with transfer. She cont to be motivated and particiapte throughout entire session as much as she can despite painw ith activities. Goals Bed Mobility Goal Moderate Assistance Transfer Goal Moderate Assistance,Front Wheeled Walker Gait Goal Moderate Assistance,Front Wheel Walker Gait Distance 50 Days to Meet Goals 5 Frequency of Treatment Frequency Of Treatment Twice a Day Treatment Plan Physical Therapy Treatment Plan Bed Mobility Training,Transfer Training,Gait Training, Therapeutic Exercise,Balance Retraining,Post Op Education, Discharge Planning,Hot or Cold Pack,Neuromuscular Re-ed, Coordination Retraining,Manual Therapy Other Recommendations and Next Treatment transfers, ambulation Focus Recommendations To Nursing Amount of Assist Needed 2 Person Assist Discharge Recommendations PT Discharge Recommendations SNF Rehab Transportation Needs at Discharge Wheelchair/Cabulance
--- NOTE | 2019-12-31 14:21 | PC.NURSE ---
SHIFT SUMMARY: DRSG W/ WOUND VAC CDI, WELL SEALED, NO LEAKS. REPORTS TOLERATING PAIN LEVELS. HEAVY ASSIST W/ MOBILITY. 2P MOD ASSIST OOB TO RECLINER PER PHYSICAL/OT THERAPY THIS AM. ATTEMPTED 2P ASSIST BACK TO BED, BUT LEGS TOO WEAK. PHYSICAL THERAPY/OT THERAPY CALLED BACK TO TO ASSIST HER BACK TO BED. ONLY ABLE TO STAND AND THEN HAVE THE BED MOVED AND PLACED BEHIND HER. HER BOTTOM IS INTACT. HER ALLYVN BOARDER FOAM DRSG IN INTACT W/ CORNER OF DRSG STARTING TO PEEL. THERE IS APPROX 50% SATURATION. OTHERWISE INTACT AND COVERING WOUND. WILL PASS ON TO NEXT SHIFT TO CHANGE DRSG PATIENT IS SLEEPING W/ CPAP ON AT THIS TIME. OVERALL HER JENIFFER-AREA SKIN LOOKS MUCH IMPROVED FROM ADMIT. TRIAL OF RA THIS AM. 88%. ABLE TO REACH [phone] CC'S WITH I.S. BUT ONLY ABOUT 4 REPS. 1L/NC 96-97%.
[2019-12-31 15:31] LABS: COVID19 Sendout Not Detected
--- NOTE | 2019-12-31 19:17 | PC.NURSE ---
Evening note: Bushra is dozing occasionally tonight, awakes to voice, KAIBAB, oriented to self & situation, cooperative with care although hesitant to move in bed. Allevyn drsg to left buttock changed, old drsg mostly soiled with thin yellow/pink drainage. Wound with pinkish wound bed. Site cleansed with NS, new Allevyn applied. Wound vac drsg to her back is CDI with good seal, no peeling of drsg observed. Vac is active with green light. I asked patient to wiggle toes & actively do foot pumps, she is wearing SCD's bilaterally. I worked with her & did teaching about deep breathing, respirations are shallow & when repositioned for care she holds her breath. 1L O2 via NC with sat of 96% while awake & talking, when holds breath or sleeps she desaturates to low 80's. O2 now at 2L via NC, patient dozing but refusing to wear CPAP, saying not quite yet--next time you come in I will put it on. Repositioned to her right side for comfort. Alarm active for safety, fall precautions in place.
[2019-12-31] MEDS: FENOFIBRATE 48 MG TABLET PO (20:37)
[2019-12-31] MEDS: TRAZODONE 50 MG TABLET 150 MG PO (20:39)
[2020-01-01] VITALS (7 sets, daily range): BP systolic 109–127; BP diastolic 45–74; PULSE 74–88; RESP 16–18; TEMP 36.1–36.6; O2SAT 92–96
[2020-01-01] MEDS: OXYCODONE IR 5 MG TABLET PO ×5 (01:40→19:38)
[2020-01-01] MEDS: ASPIRIN EC 81 MG TABLET PO (08:37)
[2020-01-01] MEDS: VERAPAMIL 80 MG TABLET PO ×2 (08:37→20:46)
[2020-01-01] MEDS: ACETAMINOPHEN 325 MG TABLET 650 MG PO (08:38)
[2020-01-01] MEDS: METFORMIN HCL 500 MG TABLET 1000 MG PO ×2 (08:38→16:30)
[2020-01-01] MEDS: DOCUSATE 100 MG CAPSULE PO ×2 (08:38→20:44)
[2020-01-01] MEDS: buPROPion XL 150 MG TAB 300 MG PO (08:38)
[2020-01-01] MEDS: SODIUM CHLORIDE 0.9% FLUSH 10 ML IV (08:38)
--- NOTE | 2020-01-01 11:02 | OT.IP.TRT ---
Current Diagnoses Pressure ulcer of right buttock, stage 3 (12/21/19) Urinary tract infection, site not specified (12/21/19) Disruption of external operation (surgical) wound, not elsewhere classified, initial encounter (12/21/19) Arthrodesis status (12/21/19) Surgery Performed Operation Date: 12/21/19 07:45 Actual Procedures p Lumbar wound I&D with wound vac placement - Kt Escalera MD Operation Date: 12/23/19 09:00 Actual Procedures p Incision and Drainage Spine, Wound Vac Exchange - Kt Escalera MD Operation Date: 12/26/19 07:45 Actual Procedures p Incision and Drainage Wound/Spine, debridement of right posterior thigh wound(Not Applicable) - Andrea Pascal MD Operation Date: 12/30/19 10:00 Actual Procedures p Irrigation and Debridement lumbar wound skin, fascia and muscle, wound vac sponge exchange - Kt Escalera MD Occupational Therapy Treatment Note M2 OT-IP Current Condition Start: 12/22/19 12:53 Freq: Status: Active Protocol: Document 12/24/19 10:36 [facility] (Rec: 12/24/19 11:31 [facility] [id number]) Occupational Therapy Current Condition Current Condition Evaluation Date 12/24/19 Treatment Diagnosis I and D of back Diagnosis Onset Date 12/21/19 Post Operative Precautions Lumbar Precautions Log Roll,No Twisting,Limit Bending,Lifting Restriction of 10 lbs,Gait Belt above Incisional Area Weight Bearing Status Weight Bearing Status Weight Bear as Tolerated M3 OT- IP Subjective and Pain Start: 12/22/19 12:53 Freq: Status: Active Protocol: Document 01/01/20 11:04 [facility] (Rec: 01/01/20 11:12 [facility] [id number]) OT- Subjective Occupational Therapy Visit Type Type Treatment Note Visit Start Time 10:20 Visit Stop Time 11:02 Total Visit Minutes 42 Notes COtxt with PT for part of the session due to pt needing extensive assist for mobility needs. Occupational Therapy Visit Comments Patient Comments Pt agreeable to get up. Nursing in for part of the session to help change out dressing and for pericare needs. Patient/Caregiver Goals to get through next surgery and go to rehab to get stronger OT Pain Assessment Pain When Pain Assessed During Mobility Pain Present Pain Present Pain Reported M4 OT- IP ADL's Start: 12/22/19 12:53 Freq: Status: Active Protocol: Document 01/01/20 11:04 [facility] (Rec: 01/01/20 11:12 [facility] [id number]) OT ADL-Grooming General Evaluation Grooming Ability Standby Assistance Comments OT Grooming Comments seated in chair Pt too tired to try grooming needs while standing today. OT ADL-Oral Care General Eval Oral Care Ability Standby Assistance Devices Oral Care Devices Toothbrush Comments Oral Care Comments set-up of items OT ADL-Dressing General Eval Lower Body Dressing Ability Maximum Assistance Comments OT Dressing Comments Assist to help slide her feet into her slippers. OT ADL-Toileting General Evaluation Toileting Ability Total Assistance Areas Needing Assistance Empty Catheter or Colostomy, Perform Perineal Hygiene Comments OT Toileting Comments nelson in place OT ADL-Bathing Comments OT Bathing Comments Pt states received a bed bath this morning. M5 OT- IP IADL's Start: 12/22/19 12:53 Freq: Status: Active Protocol: Document 12/24/19 10:36 [facility] (Rec: 12/24/19 11:31 [facility] [id number]) OT-Instrumental Activities of Daily Living Deficits IADL Deficits Identified Deficits Home Safety Awareness Awareness of Need for Assistance at Home Good Awareness Ability to Problem Solve Emergency Able to Problem Solve Situations Medication Management Medication Management No Deficits Identified Money Management Money Management No Deficits Identified Meal Preparation Meal Preparation Caregiver Provides Assist Maintenance And Repair Worker Maintenance And Repair Worker Caregiver Provides Assist Driving Driving Caregiver Provides Assist M6 OT- IP Functional Cognition Start: 12/22/19 12:53 Freq: Status: Active Protocol: Document 01/01/20 11:04 [facility] (Rec: 01/01/20 11:12 [facility] [id number]) Cognitive Factors Limiting Selfcare Function Cognitive Comments Cognitive Assessment Comments At baseline, able to follow and state all her back precautions. M7 OT- IP Mobility and Balance Start: 12/22/19 12:53 Freq: Status: Active Protocol: Document 01/01/20 11:04 [facility] (Rec: 01/01/20 11:12 [facility] [id number]) OT- Bed Mobility Assessment Rolling Type of Rolling Roll to Left Level of Assistance Maximum Assistance,1 Person Assistance OT-Transfer Assessment Sit to and From Stand Sit to and from Stand Moderate Assistance,1 Person Assistance Transfers Transfer Ability Moderate Assistance,1 Person Assistance,2 Person Assistance Technique Transfer Destination Bed,Chair Devices Transfer Assistive Devices Gait Belt,Front Wheeled Walker Comments Mobility Comments Today much more stable wiht her feet and no buckling noted . Sit to stand MODA X 2 and once up requiring from 1-2 persons to walk wiht FWW, needing two when tiring and turning with FWW. OT- Balance Assessment Sitting Balance and Reactions Static Sitting Balance Ability Fair Standing Balance and Reactions Static Standing Balance Ability Fair M8 OT- IP Objective Assessments Start: 12/22/19 12:53 Freq: Status: Active Protocol: Document 12/24/19 10:36 [facility] (Rec: 12/24/19 11:31 [facility] [id number]) OT Gross Range of Motion Upper Extremity Range of Motion Assessment Bilaterally Impaired ROM Impairments B shld 0-45 OT Strength Upper Extremity Strength Assessment Within Functional Limits Comments Strength Comments grossly 4/5 OT- Coordination Assessment Upper Extremity Finger to Nose Test Within Functional Limits Finger Tapping Test Within Functional Limits OT-Muscle Tone Assessment Muscle Tone WNL Yes OT Sensation Assessment Location Right Upper Extremity Light Touch Intact/Normal Edema Edema Absent M9 OT- IP Assessment and Plan Start: 12/22/19 12:53 Freq: Status: Active Protocol: Document 01/01/20 11:04 [facility] (Rec: 01/01/20 11:12 [facility] [id number]) OT Summary Assessment and Plan Potential Rehabilitation Potential Good Summary OT Impairments Pain,Strength,Balance, Functional Mobility,Grooming, Dressing,Toileting,Bathing, Toilet Transfers,Shower Transfers,Activity Tolerance Progress Towards Goals Slow Progress due to Pain,Slow Progress due to Activity Tolerance Assessment Summary Today much improved for mobility needs during bed mobility and transfer. Pt very cooperative, pleasant, and motivated to get better. Pt states surgeon told her that she may have another I and D tomorrow. When medically stable still suggest skilled rehab prior to going home. Goals Grooming Goal Independent Dressing Goal Independent,Long Handled Shoe Horn,Legal Transcriptionist,Sock Aid Toileting Goal Independent Bathing Goal Standby Assistance,Grab Bars Toilet Transfer Goal Independent,Grab Bars Shower Transfer Goal Standby Assistance,Tub/Shower Combination,Tub Transfer Bench ,Grab Bars Days to Meet Goals 10 Frequency of Treatment Frequency Of Treatment Once a Day Treatment Plan OT Treatment Plan ADL Training,Functional Mobility,Patient/Family Education,Discharge Planning Other Treatment Recommendations and Next electronic induction hardener front of sink with Treatment Focus recliner behind her. Discharge Recommendations OT Discharge Recommendations SNF Rehab Home Equipment Needs TBD pending progress Transportation Needs at Discharge Wheelchair/Cabulance
[2020-01-01] MEDS: CEFTRIAXONE 2 GM/50 ML FROZ.PIGGY IV (12:16)
--- NOTE | 2020-01-01 13:14 | PC.NURSE ---
SHIFT SUMMARY: PATIENT GIVEN BED BATH THIS SHIFT. NYSTATIN POWDER TO FOLDS AND JENIFFER AREA. ALLYVN DRSG WAS CHANGED, WAS COMING AWAY FROM SKIN AT CORNER. ADHERENT YELLOW SLOUGH TO 1/2 OF LENGTH OF WOUND. THE OTHER HALF IS PINK HEALTHY WOUND BASE. APPLIED SMALL AMT MEDI-HONEY TO AREA OF YELLOW SLOUGH AND THEN SKIN PREP AND NEW ALLYVN DRSG. LATER IN SHIFT, AFTER PATIENT BACK TO BED FROM RECLINER THIS AFTERNOON, A CORNER AGAIN WAS LIFTING OFF. CLEANSED SURROUNDING AREA, PAT DRY, SKIN PREP AND TACKED CORNER DOWN W/ COVERSITE. WOUND VAC CDI AND FUNCTIONING WITHOUT DIFFICULTY OR LEAK. PATIENT TOLERATING RA 91-94%. ENCOURAGING FREQ USE OF I.S. LUNGS CLEAR. CPAP FOR NAPPING AND AT NIGHT. PATIENT WAS 2-3 P ASSIST W/ PHYSICAL AND OT THERAPY TODAY. WAS ABLE TO STAND AND TAKE SLOW SMALL STEP TO RECLINER AT 90 DEGREE ANGLE TO BEDSIDE. IMPROVED OVER YESTERDAY.
--- NOTE | 2020-01-01 13:20 | PT.IPTN ---
Current Diagnoses Pressure ulcer of right buttock, stage 3 (12/21/19) Urinary tract infection, site not specified (12/21/19) Disruption of external operation (surgical) wound, not elsewhere classified, initial encounter (12/21/19) Arthrodesis status (12/21/19) Surgery Performed Operation Date: 12/21/19 07:45 Actual Procedures p Lumbar wound I&D with wound vac placement - Kt Escalera MD Operation Date: 12/23/19 09:00 Actual Procedures p Incision and Drainage Spine, Wound Vac Exchange - Kt Escalera MD Operation Date: 12/26/19 07:45 Actual Procedures p Incision and Drainage Wound/Spine, debridement of right posterior thigh wound(Not Applicable) - Andrea Pascal MD Operation Date: 12/30/19 10:00 Actual Procedures p Irrigation and Debridement lumbar wound skin, fascia and muscle, wound vac sponge exchange - Kt Escalera MD Physical Therapy Treatment Note M2 PT-IP Current Condition Start: 12/22/19 12:46 Freq: NEEDED Status: Active Protocol: Document 12/24/19 15:35 LRN (Rec: 12/24/19 17:18 LRN [id number]) Physical Therapy Current Condition Current Condition Evaluation Date 12/24/19 Treatment Diagnosis s/p lumbar wound I&D; difficulty in walking Onset Date 12/21/2019 Precautions Lumbar Precautions Log Roll,No Twisting,Limit Bending,Lifting Restriction of 10 lbs,Gait Belt above Incisional Area Weight Bearing Status Weight Bearing Status Weight Bear as Tolerated M3 PT-IP Subjective Start: 12/22/19 12:46 Freq: NEEDED Status: Active Protocol: Document 01/01/20 13:09 (Rec: 01/01/20 13:20 [id number]) Subjective Physical Therapy Visit Type Type Treatment Note Visit Start Time 10:12 Visit Stop Time 10:50 Total Visit Minutes [address] Escalera saw me this morning and im going to have another I&D tomorrow Co-tx with SLIME Santana Number of REHABILITATION TECH Visits 0 Physical Therapy Visit Comments Patient Comments Pt frustrated d/t having difficulty getting up with nursing Therapy Pain Assessment Pain When Pain Assessed During Mobility Pain Present Pain Present Pain Reported Location lower back Pain Behaviors Facial Grimacing,Wincing Pain Management Techniques Distraction,Re-positioning, Timing of Activity with Medications M4 PT-IP Mobility and Gait Start: 12/22/19 12:46 Freq: NEEDED Status: Active Protocol: Document 01/01/20 13:09 HH (Rec: 01/01/20 13:20 HH [id number]) PT-Bed Mobility Assessment Rolling Type of Rolling Log Rolling,Roll to Right Level of Assist Maximal Assistance,1 Person Assistance Supine to Sit Supine to Sit Maximum Assistance,1 Person Assistance PT-Transfer Assessment Sit to and From Stand Sit to and from Stand Moderate Assistance,2 Person Assistance,Use of Upper Extremities Equipment Transfer Assistive Device Front Wheeled Walker Orthotic/Prosthetic Devices or Brace: No Transfers Transfer Destination Bed,Chair Transfer Ability Level of Assist Moderate Assistance,2 Person Assistance,Use of Upper Extremities Comments Mobility Comments Pt up in bed upon PT/OT arrival. Pt was able to roll to L side by pulling through L bed rail. Pt stayed in sidelying position for 5 mins for wound care by EVERETT Leach. She then needed mod A x 2 to sit up with L bed rail. Max A x 1 for scooting towards EOB. She then stood up with mod A x2 and able to take small steps towards L side and sat down with proper hand placements. Pt then took a 2 mins break and stood up again with mod A x2 and amb mod A x 1 towards to sink counter for 5 feet with limited feet clearance and a flexed trunk, with chair follow. Pt complaint ongoing pain but tolerable. She then requested to sit down d/t fatigue and pain. Position pt's chair back to bedside and left pt with OT tx. Gait Assessment Gait Gait Assistance Required: Moderate Assistance,1 Person Assist Distance (Feet) 5 Able to Maintain Weight Bearing Status Yes During Gait Assistive Devices Assistive Device Gait Belt,Front Wheeled Walker Orthotic/Prosthetic Devices or Brace: No Gait Deviations General Gait Pattern Decreased Stride Length, Decreased Feet Clearance, Flexed Trunk,Step-to Gait Factors Limiting Gait Function Factors Limiting Gait Function Decreased Activity Tolerance, Decreased Strength,Limited Range of Motion,Pain,Poor Balance,Poor Safety Awareness Comments Gait Comments see mobility comments Stair Climbing Assessment Comments Stair Climbing Comments unable M5 PT-IP Objective Assessments Start: 12/22/19 12:46 Freq: NEEDED Status: Active Protocol: Document 12/24/19 10:35 LRN (Rec: 12/24/19 13:59 LRN [id number]) Orientation Orientation/Cognition Level of Alertness Alert Orientation Name,Age,Birthday,Month,Date, Year,Day of Week,Place, Situation Language Function Ability Hard of Hearing Gross Range of Motion Upper Extremity ROM Assessment Within Functional Limits Lower Extremity ROM Assessment Bilaterally Impaired Strength Upper Extremity Strength Assessment Within Functional Limits Lower Extremity Strength Assessment Bilaterally Impaired M6 PT-IP Treatment Start: 12/22/19 12:46 Freq: NEEDED Status: Active Protocol: Document 12/31/19 12:28 [facility] (Rec: 12/31/19 12:56 [facility] [id number]) Physical Therapy Treatment Education Education Provided Safety M7 PT-IP Assessment and Plan Start: 12/22/19 12:46 Freq: NEEDED Status: Active Protocol: Document 01/01/20 13:09 (Rec: 01/01/20 13:20 [id number]) PT Summary Assessment and Plan Potential Rehabilitation Potential Fair Summary Impairments Pain,ROM,Strength,Balance, Coordination,Sensation,Tone, Cognition,Bed Mobility, Transfers,Gait,Activity Tolerance Progress Towards Goals Slow Progress due to Pain,Slow Progress due to Medical Issues,Slow Progress due to Activity Tolerance Assessment Summary Pt showed improved amb distance and able to assist for all mobiltiy today: Bed mob max A 1-2, transfers mod A x2, amb 5 feet mod A x1. Pt cont to have significant pain and poor endurance. SNF is still an ideal option for her to improve her functional mobiltiy and strength. Pt will alos have her 4th I&D tomorrow. Goals Bed Mobility Goal Moderate Assistance Transfer Goal Moderate Assistance,Front Wheeled Walker Gait Goal Moderate Assistance,Front Wheel Walker Gait Distance 50 Days to Meet Goals 5 Frequency of Treatment Frequency Of Treatment Twice a Day Treatment Plan Physical Therapy Treatment Plan Bed Mobility Training,Transfer Training,Gait Training, Therapeutic Exercise,Balance Retraining,Post Op Education, Discharge Planning,Hot or Cold Pack,Neuromuscular Re-ed, Coordination Retraining,Manual Therapy Other Recommendations and Next Treatment transfers, ambulation Focus Recommendations To Nursing Amount of Assist Needed 2 Person Assist Discharge Recommendations PT Discharge Recommendations SNF Rehab Transportation Needs at Discharge Wheelchair/Cabulance
--- NOTE | 2020-01-01 13:26 | PT.IPTN ---
Current Diagnoses Pressure ulcer of right buttock, stage 3 (12/21/19) Urinary tract infection, site not specified (12/21/19) Disruption of external operation (surgical) wound, not elsewhere classified, initial encounter (12/21/19) Arthrodesis status (12/21/19) Surgery Performed Operation Date: 12/21/19 07:45 Actual Procedures p Lumbar wound I&D with wound vac placement - Kt Escalera MD Operation Date: 12/23/19 09:00 Actual Procedures p Incision and Drainage Spine, Wound Vac Exchange - Kt Escalera MD Operation Date: 12/26/19 07:45 Actual Procedures p Incision and Drainage Wound/Spine, debridement of right posterior thigh wound(Not Applicable) - Andrea Pascal MD Operation Date: 12/30/19 10:00 Actual Procedures p Irrigation and Debridement lumbar wound skin, fascia and muscle, wound vac sponge exchange - Kt Escalera MD Physical Therapy Treatment Note M2 PT-IP Current Condition Start: 12/22/19 12:46 Freq: NEEDED Status: Active Protocol: Document 12/24/19 15:35 LRN (Rec: 12/24/19 17:18 LRN [id number]) Physical Therapy Current Condition Current Condition Evaluation Date 12/24/19 Treatment Diagnosis s/p lumbar wound I&D; difficulty in walking Onset Date 12/21/2019 Precautions Lumbar Precautions Log Roll,No Twisting,Limit Bending,Lifting Restriction of 10 lbs,Gait Belt above Incisional Area Weight Bearing Status Weight Bearing Status Weight Bear as Tolerated M3 PT-IP Subjective Start: 12/22/19 12:46 Freq: NEEDED Status: Active Protocol: Document 01/01/20 13:21 (Rec: 01/01/20 13:26 [id number]) Subjective Physical Therapy Visit Type Type Treatment Note Visit Start Time 12:00 Visit Stop Time 12:15 Total Visit Minutes 15 Number of ACTIVITIES ASSISTANT Visits 0 Physical Therapy Visit Comments Patient Comments I want to go back to back to bed. Therapy Pain Assessment Pain When Pain Assessed During Mobility Pain Present Pain Present Pain Reported Location lower back Pain Behaviors Facial Grimacing,Wincing Pain Management Techniques Distraction,Re-positioning, Timing of Activity with Medications M4 PT-IP Mobility and Gait Start: 12/22/19 12:46 Freq: NEEDED Status: Active Protocol: Document 01/01/20 13:21 (Rec: 01/01/20 13:26 [id number]) PT-Bed Mobility Assessment Sit to Supine Sit to Supine Maximum Assistance,2 Person Assistance,Bedrails Scooting Scooting Up and Down in Bed Contact Guard Assistance PT-Transfer Assessment Sit to and From Stand Sit to and from Stand Minimal Assistance,2 Person Assistance,Use of Upper Extremities Equipment Transfer Assistive Device Front Wheeled Walker Orthotic/Prosthetic Devices or Brace: No Transfers Transfer Destination Bed,Chair Transfer Ability Level of Assist Moderate Assistance,2 Person Assistance,Use of Upper Extremities Comments Mobility Comments Pt sat up in chair upon PT arrival. RN and LOG GRADER were there to help. Pt stood up from chair with min A x 2 but very slowly. She then stand pivot herself towards R side and sat down at EOB. She needed max A x 2 for sit to supine but was able to roll herself to middle and scoot upward with CGA this time. She c/o pain during bed mobility but tolerable. Left pt with LOG GRADER and RN for pericare. M5 PT-IP Objective Assessments Start: 12/22/19 12:46 Freq: NEEDED Status: Active Protocol: Document 12/24/19 10:35 LRN (Rec: 12/24/19 13:59 LRN [id number]) Orientation Orientation/Cognition Level of Alertness Alert Orientation Name,Age,Birthday,Month,Date, Year,Day of Week,Place, Situation Language Function Ability Hard of Hearing Gross Range of Motion Upper Extremity ROM Assessment Within Functional Limits Lower Extremity ROM Assessment Bilaterally Impaired Strength Upper Extremity Strength Assessment Within Functional Limits Lower Extremity Strength Assessment Bilaterally Impaired M6 PT-IP Treatment Start: 12/22/19 12:46 Freq: NEEDED Status: Active Protocol: Document 12/31/19 12:28 [facility] (Rec: 12/31/19 12:56 [facility] [id number]) Physical Therapy Treatment Education Education Provided Safety M7 PT-IP Assessment and Plan Start: 12/22/19 12:46 Freq: NEEDED Status: Active Protocol: Document 01/01/20 13:21 (Rec: 01/01/20 13:26 [id number]) PT Summary Assessment and Plan Potential Rehabilitation Potential Fair Summary Impairments Pain,ROM,Strength,Balance, Coordination,Sensation,Tone, Cognition,Bed Mobility, Transfers,Gait,Activity Tolerance Progress Towards Goals Slow Progress due to Pain,Slow Progress due to Medical Issues,Slow Progress due to Activity Tolerance Assessment Summary Assisted pt returning back to bed from chair. Min A x 2 for STS but max A x 2 for sit to supine. She was also able to scoot upward in bed with CGA but significant pain noted. Pt did show improvements today for transfer activities without any episode of knee buckling. Pt will cont need rehab to improve her mboility and strength. Goals Bed Mobility Goal Moderate Assistance Transfer Goal Moderate Assistance,Front Wheeled Walker Gait Goal Moderate Assistance,Front Wheel Walker Gait Distance 50 Days to Meet Goals 5 Frequency of Treatment Frequency Of Treatment Twice a Day Treatment Plan Physical Therapy Treatment Plan Bed Mobility Training,Transfer Training,Gait Training, Therapeutic Exercise,Balance Retraining,Post Op Education, Discharge Planning,Hot or Cold Pack,Neuromuscular Re-ed, Coordination Retraining,Manual Therapy Other Recommendations and Next Treatment transfers, ambulation Focus Recommendations To Nursing Amount of Assist Needed 2 Person Assist Discharge Recommendations PT Discharge Recommendations SNF Rehab Transportation Needs at Discharge Wheelchair/Cabulance
--- NOTE | 2020-01-01 14:18 | P.PN_ITS ---
Exam Vital Signs (past 8 hours): - 01/01/20 08:20 01/01/20 11:43 Temperature 97.9 F 97.9 F Pulse Rate 88 80 Respiratory Rate 18 18 Blood Pressure 126/53 L 127/45 L Pulse Oximetry 93 93 Oxygen Delivery Method Room Air Oxygen Flow Rate 0 Objective Labs Result Diagrams: 12/27/19 05:36 12/27/19 05:36 Labs: Laboratory Results - last 24 hr 12/28/19 12:50 COVID-19 PCR Not detected Assessment & Plan Assessment & Plan narrative: Patient seen and examined. Patient is neuro intact w/o s/s of DVT. Her lumbar wound vac is intact and seal is intact. She is s/p multiple lumbar wound I&D and wound vac exchange for lumbar wound de hiscience with skin necrosis. She is scheduled to return tomorrow for repeat I&D and possible wound closure. Patient understands. Continue current therapy. Will get updated H/H for tomorrow surgery preparation. Quality VTE Deep Vein Thrombosis/Pulmonary Embolism Present on Admission: No
[2020-01-01 17:14] LABS: Hematocrit 26.6 % (36-46); Hemoglobin 8.8 g/dL (12.0-16.0)
[2020-01-01] MEDS: TRAZODONE 50 MG TABLET 150 MG PO (20:44)
[2020-01-01] MEDS: SENNOSIDES 8.6 MG TABLET 17.2 MG PO (20:44)
[2020-01-01] MEDS: FENOFIBRATE 48 MG TABLET PO (20:46)
[2020-01-02] VITALS (20 sets, daily range): BP systolic 110–149; BP diastolic 49–99; PULSE 75–107; RESP 9–18; TEMP 35.6–37.6; O2SAT 90–99; BMI 42.8
[2020-01-02] MEDS: OXYCODONE IR 5 MG TABLET PO ×4 (00:08→21:43)
[2020-01-02] MEDS: SODIUM CHLORIDE 0.9% FLUSH 10 ML IV (08:39)
[2020-01-02] MEDS: HYDROMORPHONE 0.5 MG INJ 0.2 MG IV ×2 (08:39→11:40)
[2020-01-02] MEDS: VERAPAMIL 80 MG TABLET PO ×2 (08:39→21:42)
--- NOTE | 2020-01-02 11:24 | PT.IPTN ---
Current Diagnoses Pressure ulcer of right buttock, stage 3 (12/21/19) Urinary tract infection, site not specified (12/21/19) Disruption of external operation (surgical) wound, not elsewhere classified, initial encounter (12/21/19) Arthrodesis status (12/21/19) Surgery Performed Operation Date: 12/21/19 07:45 Actual Procedures p Lumbar wound I&D with wound vac placement - Kt Escalera MD Operation Date: 12/23/19 09:00 Actual Procedures p Incision and Drainage Spine, Wound Vac Exchange - Kt Escalera MD Operation Date: 12/26/19 07:45 Actual Procedures p Incision and Drainage Wound/Spine, debridement of right posterior thigh wound(Not Applicable) - Andrea Pascal MD Operation Date: 12/30/19 10:00 Actual Procedures p Irrigation and Debridement lumbar wound skin, fascia and muscle, wound vac sponge exchange - Kt Escalera MD Operation Date: 01/02/20 13:00 Actual Procedures p Incision and Drainage Wound/Lumbar(Not Applicable) - Kt Escalera MD Physical Therapy Treatment Note M2 PT-IP Current Condition Start: 12/22/19 12:46 Freq: NEEDED Status: Active Protocol: Document 12/24/19 15:35 LRN (Rec: 12/24/19 17:18 LRN [id number]) Physical Therapy Current Condition Current Condition Evaluation Date 12/24/19 Treatment Diagnosis s/p lumbar wound I&D; difficulty in walking Onset Date 12/21/2019 Precautions Lumbar Precautions Log Roll,No Twisting,Limit Bending,Lifting Restriction of 10 lbs,Gait Belt above Incisional Area Weight Bearing Status Weight Bearing Status Weight Bear as Tolerated M3 PT-IP Subjective Start: 12/22/19 12:46 Freq: NEEDED Status: Active Protocol: Document 01/02/20 10:58 SP (Rec: 01/02/20 14:00 SP [email or web address]) Subjective Physical Therapy Visit Type Type Treatment Note Visit Start Time 10:58 Visit Stop Time 11:24 Total Visit Minutes 26 Notes cotreat with OT. Number of FORMING AND ASSEMBLING SUPERVISOR Visits 1 Physical Therapy Visit Comments Patient Comments Pt willing to work with PT getting out of bed but stated wanted to return to bed and rest before afternoon surgery. Therapy Pain Assessment Pain When Pain Assessed During Mobility Pain Present Pain Present Pain Reported Location L thigh Intensity 5 Scale Used 5.5/10 at rest not increase durign mobility M4 PT-IP Mobility and Gait Start: 12/22/19 12:46 Freq: NEEDED Status: Active Protocol: Document 01/02/20 10:58 SP (Rec: 01/02/20 14:00 SP [email or web address]) PT-Bed Mobility Assessment Rolling Type of Rolling Log Rolling,Bilateral Level of Assist Moderate Assistance,1 Person Assistance Supine to Sit Supine to Sit Moderate Assistance,1 Person Assistance,Bedrails Sit to Supine Sit to Supine Moderate Assistance,1 Person Assistance,Bedrails Scooting Scooting to Edge of Bed Minimal Assistance,Moderate Assistance PT-Transfer Assessment Sit to and From Stand Sit to and from Stand Minimal Assistance,1 Person Assistance,Use of Upper Extremities Equipment Transfer Assistive Device Gait Belt,Front Wheeled Walker Orthotic/Prosthetic Devices or Brace: No Transfers Transfer Destination Bed,Chair Transfer Technique pt ambulated using FWW Transfer Ability Level of Assist Moderate Assistance,1 Person Assistance,Use of Upper Extremities Comments Mobility Comments Pt was inclined laying in bed when arrived, willing to work with PT/ OT. Pt required Mod A x1 and max cuing for BLE knees bent/ RUE reaching across body while log rolling to L and using bed rail, L sidelying to sit Mod A of 1 person for trunk support and CGA to BLE with cuing repostiong to EOB and complete to sitting. Pt required Min A , CGA for sitting trunk support. Mod A of 1 to wt shift each LE to EOB and cGA from behind with BUE WB on bed to complete scooting forward to EOB and allow BLE support on floor, A required to don B slippers. sit to stand Mof A of 1-2 persons, support required of 1 person to manage wound vac and catheter placement on FWW. Pt ambulated bed to chair approx 5 ft using FWW and intermittent cues for body and FWW positioning durign turn and backing up to chair then proper hand placement for slow sittign descent with good demonstrtation. Pt required 5 min seated rest for recovery, stated very tired. Pt complete sit to stand Min A of 15% from chair and BUE suupport on chair arms with no cuing. Pt was able to walk further in room chait to bed 8 ft usign FWW, CGA- Min 10% with good stable turn and proepr hand placement to sit using FWW. Sit to supine required Mod A of 1 for BLe support into bed. Pt was able to reposiiton BLe her self and lateral scoot pelvis then upper trunk to center in bed with Mod A of 2 person and cuing for BLE knees bent and WB into bed for functional independence. Therapists donned SCD's and positioning pillows under B LE per patient request. Pt's bed alarm and all needs in reach prior to leaving. Gait Assessment Gait Gait Assistance Required: Contact Guard Assist,Minimum Assistance,1 Person Assist Distance (Feet) 8 Able to Maintain Weight Bearing Status Yes During Gait Assistive Devices Assistive Device Gait Belt,Front Wheeled Walker Orthotic/Prosthetic Devices or Brace: No Gait Deviations General Gait Pattern Antalgic,Decreased Stride Length,Decreased Feet Clearance,Step-to Gait Factors Limiting Gait Function Factors Limiting Gait Function Decreased Activity Tolerance, Decreased Strength,Limited Range of Motion,Pain,Poor Balance,Poor Safety Awareness Comments Gait Comments see mobility comments Stair Climbing Assessment Comments Stair Climbing Comments unable PT-Balance Assessment Sitting Balance and Reactions Static Sitting Balance Ability Fair Dynamic Sitting Balance Ability Fair Standing Balance and Reactions Static Standing Balance Ability Fair Dynamic Standing Balance Ability Poor Device Used FWW M5 PT-IP Objective Assessments Start: 12/22/19 12:46 Freq: NEEDED Status: Active Protocol: Document 12/24/19 10:35 LRN (Rec: 12/24/19 13:59 LRN [id number]) Orientation Orientation/Cognition Level of Alertness Alert Orientation Name,Age,Birthday,Month,Date, Year,Day of Week,Place, Situation Language Function Ability Hard of Hearing Gross Range of Motion Upper Extremity ROM Assessment Within Functional Limits Lower Extremity ROM Assessment Bilaterally Impaired Strength Upper Extremity Strength Assessment Within Functional Limits Lower Extremity Strength Assessment Bilaterally Impaired M6 PT-IP Treatment Start: 12/22/19 12:46 Freq: NEEDED Status: Active Protocol: Document 01/02/20 10:58 SP (Rec: 01/02/20 14:00 SP [email or web address]) Physical Therapy Treatment Exercises Exercises Ankle Pumps,Heel Slides, Straight Leg Raises Education Education Provided Precautions,Safety M7 PT-IP Assessment and Plan Start: 12/22/19 12:46 Freq: NEEDED Status: Active Protocol: Document 01/02/20 10:58 SP (Rec: 01/02/20 14:00 SP [email or web address]) PT Summary Assessment and Plan Potential Rehabilitation Potential Fair Status of Condition at Evaluation Evolving Summary Impairments Pain,ROM,Strength,Balance, Coordination,Sensation,Tone, Cognition,Bed Mobility, Transfers,Gait,Activity Tolerance Progress Towards Goals Slow Progress due to Pain,Slow Progress due to Medical Issues,Slow Progress due to Activity Tolerance Assessment Summary See mobility comments. Mod A of 1 log roll, supine<> sitting. sit to stand Mod of 1 -2 initially from bed, Min A 1 from chair using FWW and support for wound vac, catheter positioned on FWW. Ambulated 5 ft, 8 ft in room with FWW Min A initially then CGA with reports I feel really weak. Goals Bed Mobility Goal Moderate Assistance Transfer Goal Moderate Assistance,Front Wheeled Walker Gait Goal Moderate Assistance,Front Wheel Walker Gait Distance 50 Days to Meet Goals 5 Frequency of Treatment Frequency Of Treatment Twice a Day Treatment Plan Physical Therapy Treatment Plan Bed Mobility Training,Transfer Training,Gait Training, Therapeutic Exercise,Balance Retraining,Post Op Education, Discharge Planning,Hot or Cold Pack,Neuromuscular Re-ed, Coordination Retraining,Manual Therapy Other Recommendations and Next Treatment transfers, ambulation Focus Recommendations To Nursing Amount of Assist Needed 1 Person Assist Discharge Recommendations PT Discharge Recommendations SNF Rehab Transportation Needs at Discharge Wheelchair/Cabulance
--- NOTE | 2020-01-02 11:41 | OT.IP.TRT ---
Current Diagnoses Pressure ulcer of right buttock, stage 3 (12/21/19) Urinary tract infection, site not specified (12/21/19) Disruption of external operation (surgical) wound, not elsewhere classified, initial encounter (12/21/19) Arthrodesis status (12/21/19) Surgery Performed Operation Date: 12/21/19 07:45 Actual Procedures p Lumbar wound I&D with wound vac placement - Kt Escalera MD Operation Date: 12/23/19 09:00 Actual Procedures p Incision and Drainage Spine, Wound Vac Exchange - Kt Escalera MD Operation Date: 12/26/19 07:45 Actual Procedures p Incision and Drainage Wound/Spine, debridement of right posterior thigh wound(Not Applicable) - Andrea Pascal MD Operation Date: 12/30/19 10:00 Actual Procedures p Irrigation and Debridement lumbar wound skin, fascia and muscle, wound vac sponge exchange - Kt Escalera MD Operation Date: 01/02/20 13:00 <No data on this case meets the specified criteria> Occupational Therapy Treatment Note M2 OT-IP Current Condition Start: 12/22/19 12:53 Freq: Status: Active Protocol: Document 12/24/19 10:36 [facility] (Rec: 12/24/19 11:31 [facility] [id number]) Occupational Therapy Current Condition Current Condition Evaluation Date 12/24/19 Treatment Diagnosis I and D of back Diagnosis Onset Date 12/21/19 Post Operative Precautions Lumbar Precautions Log Roll,No Twisting,Limit Bending,Lifting Restriction of 10 lbs,Gait Belt above Incisional Area Weight Bearing Status Weight Bearing Status Weight Bear as Tolerated M3 OT- IP Subjective and Pain Start: 12/22/19 12:53 Freq: Status: Active Protocol: Document 01/02/20 11:34 [facility] (Rec: 01/02/20 11:41 [facility] [id number]) OT- Subjective Occupational Therapy Visit Type Type Treatment Note Visit Start Time 11:04 Visit Stop Time 11:25 Total Visit Minutes 21 Occupational Therapy Visit Comments Patient Comments Pt agreeable to get up to walk and wanting to get back to bed to rest as she states the recliner is uncomfortable. In addition pt to have another I and D this afternoon. Patient/Caregiver Goals to get through next surgery and go to rehab to get stronger OT Pain Assessment Pain When Pain Assessed During Mobility Pain Present Pain Present Pain Reported Location lower back Intensity 7 Scale Used Numeric (1 - 10) M4 OT- IP ADL's Start: 12/22/19 12:53 Freq: Status: Active Protocol: Document 01/01/20 11:04 [facility] (Rec: 01/01/20 11:12 [facility] [id number]) OT ADL-Grooming General Evaluation Grooming Ability Standby Assistance Comments OT Grooming Comments seated in chair Pt too tired to try grooming needs while standing today. OT ADL-Oral Care General Eval Oral Care Ability Standby Assistance Devices Oral Care Devices Toothbrush Comments Oral Care Comments set-up of items OT ADL-Dressing General Eval Lower Body Dressing Ability Maximum Assistance Comments OT Dressing Comments Assist to help slide her feet into her slippers. OT ADL-Toileting General Evaluation Toileting Ability Total Assistance Areas Needing Assistance Empty Catheter or Colostomy, Perform Perineal Hygiene Comments OT Toileting Comments nelson in place OT ADL-Bathing Comments OT Bathing Comments Pt states received a bed bath this morning. M5 OT- IP IADL's Start: 12/22/19 12:53 Freq: Status: Active Protocol: Document 12/24/19 10:36 [facility] (Rec: 12/24/19 11:31 [facility] [id number]) OT-Instrumental Activities of Daily Living Deficits IADL Deficits Identified Deficits Home Safety Awareness Awareness of Need for Assistance at Home Good Awareness Ability to Problem Solve Emergency Able to Problem Solve Situations Medication Management Medication Management No Deficits Identified Money Management Money Management No Deficits Identified Meal Preparation Meal Preparation Caregiver Provides Assist Trade Facilitator Trade Facilitator Caregiver Provides Assist Driving Driving Caregiver Provides Assist M6 OT- IP Functional Cognition Start: 12/22/19 12:53 Freq: Status: Active Protocol: Document 01/01/20 11:04 [facility] (Rec: 01/01/20 11:12 [facility] [id number]) Cognitive Factors Limiting Selfcare Function Cognitive Comments Cognitive Assessment Comments At baseline, able to follow and state all her back precautions. M7 OT- IP Mobility and Balance Start: 12/22/19 12:53 Freq: Status: Active Protocol: Document 01/02/20 11:34 [facility] (Rec: 01/02/20 11:41 [facility] [id number]) OT- Bed Mobility Assessment Rolling Type of Rolling Roll to Left Level of Assistance Minimal Assistance,1 Person Assistance Supine to Sit Supine to Sit Assist Moderate Assistance,1 Person Assistance Sit to Supine Sit to Supine Assist Minimal Assistance,1 Person Assistance Scooting Scooting to Edge of Bed Maximum Assistance,1 Person Assistance OT-Transfer Assessment Sit to and From Stand Sit to and from Stand Minimal Assistance,1 Person Assistance Transfers Transfer Ability Minimal Assistance,1 Person Assistance,2 Person Assistance Technique Transfer Destination Bed,Chair Devices Transfer Assistive Devices Gait Belt,Front Wheeled Walker Comments Mobility Comments Pt much improved for mobility needs and now able to do with mainly one person. Another person needed for safety and to move tubing. OT- Balance Assessment Sitting Balance and Reactions Static Sitting Balance Ability Fair Standing Balance and Reactions Static Standing Balance Ability Fair M8 OT- IP Objective Assessments Start: 12/22/19 12:53 Freq: Status: Active Protocol: Document 12/24/19 10:36 [facility] (Rec: 12/24/19 11:31 [facility] [id number]) OT Gross Range of Motion Upper Extremity Range of Motion Assessment Bilaterally Impaired ROM Impairments B shld 0-45 OT Strength Upper Extremity Strength Assessment Within Functional Limits Comments Strength Comments grossly 4/5 OT- Coordination Assessment Upper Extremity Finger to Nose Test Within Functional Limits Finger Tapping Test Within Functional Limits OT-Muscle Tone Assessment Muscle Tone WNL Yes OT Sensation Assessment Location Right Upper Extremity Light Touch Intact/Normal Edema Edema Absent M9 OT- IP Assessment and Plan Start: 12/22/19 12:53 Freq: Status: Active Protocol: Document 01/02/20 11:34 [facility] (Rec: 01/02/20 11:41 [facility] [id number]) OT Summary Assessment and Plan Potential Rehabilitation Potential Good Summary OT Impairments Pain,Strength,Balance, Functional Mobility,Grooming, Dressing,Toileting,Bathing, Toilet Transfers,Shower Transfers,Activity Tolerance Progress Towards Goals Slow Progress due to Pain,Slow Progress due to Activity Tolerance Assessment Summary Much improved for mobility needs and now mainly just needing one person assist. Pt looking to have another I and D performed this PM. Able to encourage pt to stay motivated and positive. When medically stable to discharge to skilled rehab. Goals Grooming Goal Independent Dressing Goal Independent,Long Handled Shoe Horn,Rfid Developer,Sock Aid Toileting Goal Independent Bathing Goal Standby Assistance,Grab Bars Toilet Transfer Goal Independent,Grab Bars Shower Transfer Goal Standby Assistance,Tub/Shower Combination,Tub Transfer Bench ,Grab Bars Days to Meet Goals 10 Frequency of Treatment Frequency Of Treatment Once a Day Treatment Plan OT Treatment Plan ADL Training,Functional Mobility,Patient/Family Education,Discharge Planning Other Treatment Recommendations and Next iron guardrail installer front of sink with Treatment Focus recliner behind her. Discharge Recommendations OT Discharge Recommendations SNF Rehab Home Equipment Needs TBD pending progress
[2020-01-02] MEDS: CEFTRIAXONE 2 GM/50 ML FROZ.PIGGY IV (11:45)
[2020-01-02] MEDS: LACTATED RINGERS 1,000 ML 42 ML IV ×3 (12:49→16:40)
[2020-01-02] MEDS: SODIUM CHLORIDE IRRIG SOLUTION 3,000 ML, GENTAMICIN 240 MG IRR (13:47)
--- NOTE | 2020-01-02 14:40 | PT-IP ANOTE ---
Pt on hold, was out of room to wound surgery when arrived, scheduled 1300.
[2020-01-02] MEDS: HYDROMORPHONE 2 MG INJ IV ×4 (14:55→15:22)
--- NOTE | 2020-01-02 14:58 | PM.OP.1 ---
Operative Date/Time/Diagnoses Date of procedure: 01/02/20 Time of procedure: 13:06 Pre-op diagnosis: 1. Lumbar wound dehiscience. 2. Lumbar wound infection Post-op diagnosis: same Procedure & Clinicians Procedure: 1. Lumbar wound irrigation and debridement 2. Lumbar wound closure Same procedure as scheduled: Yes Indications: Ms. Desai is here for repeat I&D of her lumbar wound necrosis, dehiscience and infection. She has a wound vac on at this time. We will either exchange the vac after debridement or close the wound if possible. Surgeon: Kt Escalera Click Yes if Unassisted: No Anesthesia Type: General Operative Notes Closure Type: primary Specimen(s): none sent Applied: catheter and drain(s) Estimated Blood Loss (mL): 5 Blood products transfused: none Procedure in detail: Patient was seen in the preoperative area. Risks and benefits of the surgery was discussed with the patient. Informed consent was obtained from the patient and placed in the chart. Surgical site was marked. Patient was taken to the operative room. General anesthesia was administered. IV antibiotic was given as prescribed. Patient was placed into a prone position on the Arnel table. Patient's previously placed wound vac was removed in the operating room along with all sponges placed inside the wound for neovascularization and tissue growth. Patient's back was then prepped and draped in the sterile fashion. Time-out was performed at this time. The wound was inspected. The wound surface on all sides are healthy appearing with neovascularization. A perez was used to debride the wound by removing unhealthy appearing muscle and fascia as well as subcutaneous tissue. The skin along with some subcuatenous fat was excised until bleeding vascular tissue was encountered on edges. The wound was irrigated copiously with sterile normal saline with gentamicin using the pulse-lavage. After initial irrigation with 2 L, additional debridement was performed by excising additional unhealthy appearing tissue until bleeding vascular tissue was encountered on all edges of the wound. Another 1 L of sterile normal saline with gentamicin was used to irrigate the wound again at this time. The deep wound sutures were reenforced with additional 0 PDS suture since there were small area where the sutures were loosening. At this time the wound is clean and without any visible unhealthy appearing tissue on all edges from skin down to fascia. Additional closure was performed using #1 nylon suture. Primary closure of the wound was performed after removing some previously placed sutures for better skin edge approximation. Vertical matress sutures were placed along the skin edges in order to minimize deadspace in the subcutaneous region. [place] were placed on top of the nylon sutures. I was able to fully close the wound without excess stress along any part of her lumbar wound skin edges. The skin edges were inspected after closure and all edges were health and well vascularized with good capillary refill and pink color. Before the skin closure, a HV drain was placed in the deep subcutaneous layer superficial to the deep fascia. After skin closure, sterile dressing was applied to the lumbar wound. At this time, there is no exposed tissue. She has full closure of her wound. She will be admitted back to the hospital and potentially ready for discharge to SNF tomorrow. She will need minimum of 6 weeks of IV antibiotics for her wound infection. This will need to be arrange prior to discharge. Complications: none Post-operative Condition: stable Disposition: PACU Plan for aftercare: Admit to inpatient hospital
--- NOTE | 2020-01-02 15:09 | PM.PN.1 ---
Exam Vital Signs (past 8 hours): - 01/02/20 08:00 01/02/20 11:35 01/02/20 12:50 Temperature 99.5 F 99.6 F 98.4 F Pulse Rate 77 75 84 Respiratory Rate 18 18 Blood Pressure 148/73 H 139/64 149/73 H Pulse Oximetry 97 96 96 01/02/20 14:49 01/02/20 14:54 01/02/20 14:59 Temperature 98.7 F Pulse Rate 94 H 94 H 96 H Respiratory Rate 9 L 13 Blood Pressure 143/87 H 129/74 136/94 H Pulse Oximetry 90 L 91 93 01/02/20 15:04 Temperature Pulse Rate 96 H Respiratory Rate 12 Blood Pressure 126/83 Pulse Oximetry 94 Oxygen Delivery Method Nasal Cannula Oxygen Flow Rate 2 Objective Labs Result Diagrams: 01/01/20 17:04 12/27/19 05:36 Labs: Laboratory Results - last 24 hr 01/01/20 17:04 Hgb 8.8 L Hct 26.6 L Assessment & Plan Assessment & Plan narrative: Patient is scheduled for repeat I&D and possible closure of her wound. Informed consent was obtained and placed in the chart. Pt is A&O x3 and neuro intact on exam. Her wound vac is intact and seal is intact. She is returning to OR for repeat I&D and wound vac exchange vs wound closure. Quality VTE Deep Vein Thrombosis/Pulmonary Embolism Present on Admission: No
--- NOTE | 2020-01-02 15:29 | SUR.PHASEI ---
Dr. Barnes notified [facility], no new orders.
--- NOTE | 2020-01-02 16:05 | SUR.PHASEI ---
Patient transferred to the floor with pulse ox. Report given to Nikole. Back dressing and VS checked. Jesus and HV patent. IV infusing LR at TKO.
[2020-01-02] MEDS: METFORMIN HCL 500 MG TABLET 1000 MG PO (16:57)
[2020-01-02] MEDS: TRAZODONE 50 MG TABLET 150 MG PO (21:42)
[2020-01-02] MEDS: DOCUSATE 100 MG CAPSULE PO (21:42)
[2020-01-02] MEDS: SENNOSIDES 8.6 MG TABLET 17.2 MG PO (21:42)
[2020-01-02] MEDS: FENOFIBRATE 48 MG TABLET PO (21:43)
[2020-01-03] VITALS (7 sets, daily range): BP systolic 131–146; BP diastolic 59–81; PULSE 77–93; RESP 16–18; TEMP 36.3–37.7; O2SAT 93–96
[2020-01-03] MEDS: OXYCODONE IR 5 MG TABLET PO ×5 (03:21→20:56)
--- NOTE | 2020-01-03 05:45 | PC.NURSE ---
Pt alert and oriented. Jesus catheter intact. Turning pt q 2 hours. Pain controlled with PRN oxycodone. Hemovac intact. Pt has no complaints at this time. Wearing CPAP during the night.
[2020-01-03] MEDS: CYCLOBENZAPRINE 5 MG TABLET PO (07:49)
[2020-01-03] MEDS: VERAPAMIL 80 MG TABLET PO ×2 (07:50→20:58)
[2020-01-03] MEDS: DOCUSATE 100 MG CAPSULE PO ×2 (07:50→20:56)
[2020-01-03] MEDS: METFORMIN HCL 500 MG TABLET 1000 MG PO ×2 (07:50→17:04)
[2020-01-03] MEDS: ASPIRIN EC 81 MG TABLET PO (07:51)
[2020-01-03] MEDS: buPROPion XL 150 MG TAB 300 MG PO (07:51)
--- NOTE | 2020-01-03 09:46 | PM.PN.1 ---
Subjective Subjective Date Patient Seen: 01/03/20 Time Patient Seen: 09:15 Interval history: The patient reports she is comfortable after I&D and closure yesterday. Exam Vital Signs (past 8 hours): - 01/03/20 06:01 01/03/20 07:50 01/03/20 08:00 Temperature 97.3 F L 98.4 F Pulse Rate 87 92 H 93 H Respiratory Rate 18 18 Blood Pressure 146/70 H 144/81 H 144/81 H Pulse Oximetry 93 94 94 Oxygen Delivery Method Room Air Oxygen Flow Rate 0 Narrative Exam Narrative: Dressing is clean, dry and intact. No surrounding erythema. Light touch and motion are intact in both lower extremities. Objective Labs Result Diagrams: 01/01/20 17:04 12/27/19 05:36 Assessment & Plan Assessment & Plan narrative: The patient is stable status post I&D and closure of a persistent wound and decubitus. Drain output has been minimal. She also has severe acute protein calorie malnutrition. She is receiving appropriate dietary augmentation. The plan was for potential [facility] discharge today. Unfortunately the patient's COVID-19 test was more than 72 hours ago. The [facility] requires a test within 72 hours. I have ordered a test this morning. Once this returns negative she will be eligible for [facility] discharge. Current turnaround times for this test at [facility] are approximately 20 hours so we anticipate discharge tomorrow. Time Spent With Patient Time with patient: less than 15 minutes Quality VTE Deep Vein Thrombosis/Pulmonary Embolism Present on Admission: No
[2020-01-03] MEDS: SODIUM CHLORIDE 0.9% FLUSH 10 ML IV ×2 (11:34→12:54)
[2020-01-03] MEDS: CEFTRIAXONE 2 GM/50 ML FROZ.PIGGY IV (11:35)
[2020-01-03] MEDS: BISACODYL 10 MG SUPP PR (11:35)
--- NOTE | 2020-01-03 13:35 | PC.NURSE ---
Addendum entered by Shital Moore R.N. 01/03/20 15:18: Pt placed in Rule out COVID-19 isolation precautions prior to transfer to SNF per SNF requirements. Pt is asymptomatic at this time. Pt aware of reasoning. COVID-19 swab sent at 0945 to lab. Original Note: Day Shift- Right posterior upper thigh dressing removed, lifting off. Wound cleansed with NS, pat dry. Wound bed appears to have slough. No redness noted. 5X5 allevyn dressing applied. And dated Pt had moderate soft BM on bedpan, rocio care provided. Barrier cream applied. Back bulky dressing intact, slightly lifting at distal end. No drainage noted. Repositioned every 2 hours in bed, needing to be boosted in bed and turning from side to side using BRAULIO bed tilt and pillows for support. Heels floated throughout shift and repositioned Calf SCD's with repositioning.
--- NOTE | 2020-01-03 13:38 | PT-IP ANOTE ---
Pt refused treatment
--- NOTE | 2020-01-03 13:54 | DIET.PN ---
Dietary Progress Note RD f/u, pt has been weight stable for 1w, dietary has been sending 50g PRO on all meal trays and tracking amounts eaten, of which pt is consuming 50% of on average. Pt's last procedure is showing healing tissues. As pt needed updated Covid testing, this RD called pt on room phone to encourage continued POs to support wounds. 69y F admitted for repeated (3x) lumbar I&D and installation of wound vac to back and left thigh s/p lumbar fusion r/t chronic back pain and worsening lumbar radiculopathy. HT: 162.5cm WT: 115kg UBW: 130kg (-12% unintentional in 3mo, severe) BMI: 43.6 morbid obesity MNA: 9 malnourished [place]: 15 poor skin integrity Nutrition Diagnosis: Resolving Severe Acute PCM r/t reduced appetite for 3mo aeb 12% unintentional wt loss in 3mo (severe), limited mobility causing physical deconditioning, <50% EERs for 3 mo, pt having repeated I&D (12/21/19, 12/23/19, 12/26/19). Interventions to be continued until d/c: 1. Recc reducing from 45g to 30g CHO per meal to support preservation of lean body mass and support strict BG control <200, as well as to reduce intake of less ideal food sources r/t low appetite. 2. Recc 150g protein/day (1.3g/kg ABW) to support PCM and positive nitrogen balance for tissue repair. 3. Recc ONS John bid to supply arginine and glutamine for tissue repair/wound healing. Diet Order: Recc CCD2 EER: 1500kcal (-500kcal for healthy wt status), 150g PRO (1.3g/kg per PCM), 3.4L fluids Monitoring/Evaluations: Monitoring daily PRO intake
--- NOTE | 2020-01-03 14:04 | CM.DPNOTE ---
DCP Cont DC to [facility] expected tomorrow. Updated COVID-19 result needed, Dr Gomez has ordered swab today. Hopeful to get COVID results back tomorrow so that pt can DC to [facility], likely via BLS (?) tomorrow, wound has been closed, no wound vac needed upon DC at this time Following closely for coordination of this plan. Pt remains aware and agreeable JW
[2020-01-03] MEDS: SENNOSIDES 8.6 MG TABLET 17.2 MG PO (20:56)
[2020-01-03] MEDS: TRAZODONE 50 MG TABLET 150 MG PO (20:57)
[2020-01-03] MEDS: FENOFIBRATE 48 MG TABLET PO (20:58)
[2020-01-04 00:30] VITALS: BP 135/74; PULSE 84; RESP 20; TEMP 36.6; O2SAT 96
[2020-01-04] MEDS: OXYCODONE IR 5 MG TABLET PO ×2 (00:35→06:22)
--- NOTE | 2020-01-04 01:23 | PC.NURSE ---
Addendum entered by Maria Alejandra Higgins R.N. 01/04/20 06:28: Attempted to reposition q1h but patient did refuse x 3. States back pain is 5/10 this morning and initially declined pain med but then eventually state I guess I'd better take something; medicated with Oxycodone. Had 20cc from hemovac and 350cc from catheter Original Note: Patient is alert and oriented. Breath sounds diminished but CTA with RA sat of 96%; using CPAP overnight. HRR. Denies nausea. BT present and abdomen is soft. Indwelling catheter is patent; urine is clear yellow. Catheter being maintained for wound healing. Dressing to back is CDI; hemovac is intact and compressed. Needing assistance to reposition; per MD order of 12/20 patient is to be repositioned q1h. Allevyn dressing to medial right upper thigh is CDI. Complains of back pain severity of 6/10 and so medicated with Oxycodone. Wearing bilateral calf SCD's. COVID-19 negative so isolation discontinued. Generalized non pitting edema. Bilateral LE weakness. Fall risk score is high and bed alarm is activated. Plan is to DC in a.m. to SNF.
[2020-01-04 04:00] VITALS: BP 124/59; PULSE 79; RESP 16; TEMP 36.1; O2SAT 95
--- NOTE | 2020-01-04 07:59 | PM.DS.1 ---
History of Present Illness History of Present Illness Date Patient Seen: 01/04/20 Time Patient Seen: 07:59 Chief complaint: Evaluate wound. Narrative: 69-year-old female history diabetes obesity and spinal stenosis and radiculopathy. Underwent lumbar decompression fusion on November 26, 2019 Procedure: 1. L2-3, L3-4 posterolateral and posterior interbody fusion 2. L2-3, L3-4 posterior interbody cage placement 3. L4-5, L5-S1 posterior segmental instrumentation removal 4. L2-3, L3-4 decompressive laminectomies 5. L4-5, L5-S1 revision laminectomy with exploration of fusion 6. L2-3, L3-4, L4-5, L5-S1 posterior segmental instrumentation with pedicle screw placement 7. L4-5 posterolateral fusion 8. [place] of bone marrow from iliac crest through a separate incision 9. Utilization of microsurgical technique and operating microscope Three weeks after surgery was found to have a draining wound and skin edge necrosis she was brought to the operating room and admitted to [facility]. She underwent multiple irrigation debridements and VAC assisted closure. Wound was finally closed on 01/02/2020. Cultures grew Morganella she was placed on IV ceftriaxone. Chief complaint wound infection Discharge Providers Provider Date of admission: 12/21/19 05:43 Discharge Date: 01/04/20 Primary care physician: Erick Cee Consults: 12/21/19 07:54 Consult to Respiratory Therapy Evaluate & Treat Comment: Physician Instructions: Evaluate and treat 12/23/19 12:19 Consult to Occupational Therapy Evaluate & Treat Comment: Physician Instructions: Evaluate and treat 12/26/19 11:33 Consult to Occupational Therapy Evaluate & Treat Comment: Physician Instructions: Evaluate and treat Consult to Physical Therapy Evaluate & Treat Comment: Physician Instructions: Evaluate and Treat Consult to Wound Care Routine Comment: R thigh stage III ulcer, Consulting Provider: Jeb- Wound Care 12/26/19 21:34 Consult to Dietitian, Adult Routine Comment: Reason For Exam: large body habitus/pressure injury to buttocks Discharge provider: Laquita Yang MD Summary Hospital Course Discharge Diagnosis: Spinal stenosis lumbar radiculopathy Postoperative wound infection Obesity Diabetes mellitus type 2 controlled Hospital Course: Patient was admitted from the hospital in clinic 12/21/2019 underwent multiple irrigation debridements in the hospital with di Escalera and doctor robbins for delayed closure of her lumbar wound dehiscence and infection. Cultures grew Morganella morganii she was placed on IV ceftriaxone. She had her wound VAC changed several times. Wound was finally closed on 01/02/2020. She is appropriate for discharge on 01/03/2020 however her previous covid -19 test was over 72 hours old therefore a new 1 was needed to be obtained for discharge to detention. This was ordered on 01/03/2020 but was not back. Given the known returned times for the test will likely be back this morning if it is negative plan discharge to detention today verses once testing is negative and facility excepting. Patient was medically stable for discharge on 01/03/2020 and remained so today on 01/04/2020. Hemovac drainage is scant and will be removed prior to discharge. Patient was tolerating p.o. diet and oral medications. PICC line in place for IV antibiotics x6 weeks Status at Discharge Cognitive/behavioral status at discharge: oriented Functional status at discharge: uses cane/walker Overall status at discharge: patient is progressing back to baseline Time Spent with Patient Time spent: Less than 30 minutes Exam Vital Signs (past 8 hours): - 01/04/20 00:30 01/04/20 04:00 Temperature 97.9 F 97.0 F L Pulse Rate 84 79 Respiratory Rate 20 16 Blood Pressure 135/74 124/59 L Pulse Oximetry 96 95 Oxygen Delivery Method CPAP Oxygen Flow Rate 0 Narrative Exam Narrative: Alert oriented female, obese lying in bed no acute distress HEENT normocephalic atraumatic Respiratory unlabored on room air Back exam dressing in place Hemovac drain with scant serosanguineous drainage. Demonstrates active dorsiflexion plantar flexion lower extremities. Sensation grossly intact to light touch Objective Labs Result Diagrams: 01/01/20 17:04 12/27/19 05:36 Labs: Laboratory Results - last 24 hr 01/03/20 09:45 COVID-19 PCR Discharge Plan Discharge Plan Transfer to: [facility] Discharge comment: when covid 19 test back and negative and transport arranged Discharge orders & Medications Discharge Orders: Discharge (Order); Ordered 01/04/20 Ordered By: Laquita Yang Prescriptions: New docusate sodium [DOK] 100 mg Capsule 100 mg PO BID Qty: 30 RF: 0 oxycodone 5 mg Tablet 5 - 10 mg PO Q3HR PRN (Reason: Pain, Moderate (4-6)) Qty: 60 RF: 0 cyclobenzaprine 5 mg Tablet 5 mg PO Q8HR PRN (Reason: Spasms) Qty: 20 RF: 0 ceftriaxone in dextrose,iso-os 2 gram/50 mL Piggyback 2 gm IV Q24H 42 Days RF: 0 Continued fenofibrate 54 MG tablet 54 mg PO BEDTIME Qty: 0 RF: 0 acetaminophen 325 mg Tablet 650 mg PO Q6HR PRN (Reason: Pain, Mild (1-3)) Qty: 60 RF: 0 aspirin 81 mg Tablet,Delayed Release (Dr/Ec) 81 mg PO DAILY Qty: 60 RF: 0 hydroxyzine pamoate 25 mg Capsule 25 mg PO Q4HR PRN (Reason: Nausea And Vomiting) Qty: 30 RF: 0 polyethylene glycol 3350 [Miralax] 17 gram Powder In Packet 17 g PO DAILY RF: 0 metformin 500 mg Tablet 1,000 mg PO BID RF: 0 gabapentin 600 mg tablet 600 mg PO TID PRN (Reason: pain) RF: 0 trazodone 150 mg tablet 150 mg PO BEDTIME RF: 0 verapamil 80 mg tablet 80 mg PO BID RF: 0 bupropion HCl 300 mg tablet extended release 24 hr 300 mg PO DAILY RF: 0 sumatriptan succinate [Imitrex] 6 mg/0.5 mL Solution 6 mg subcut Q2H PRN (Reason: Headache) Qty: 30 RF: 0 Discontinued oxycodone 5 mg Tablet 5 mg PO Q8H PRN (Reason: Pain) RF: 0 hydromorphone 2 mg Tablet 2 mg PO Q3H PRN (Reason: Pain, Moderate (4-6)) Qty: 30 RF: 0 amoxicillin-pot clavulanate [Augmentin] 875-125 mg tablet 1 tab PO BID Qty: 12 RF: 0 cephalexin [Keflex] 500 mg Capsule 500 mg PO QID RF: 0 Follow up/Referrals: Erick Cee [Primary Care Provider] - Discharge Health Status Precautions: [place] Diet/Activity/Treatments Diet: Carb-consistent/Diabetic Activity: no bending, lifitng greater 10# no twisting Other treatments: keep incision c/d/i Skin/Wound/Dressing Care Report to your healthcare provider any signs of infection, such as:: chills, fever, night sweats, increased pain, unusual drainage and unusual redness Special Rehabilitation Services Rehab type: Physical therapy Restrictions to mobility: no bending, lifting 10#, twisting Visit Report/Discharge Packet Instructions: DI for Incision and Drainage Stand Alone Forms: Surgery Discharge Discharge Data Primary Care Provider: Erick Cee VTE Deep Vein Thrombosis/Pulmonary Embolism Present on Admission: No
[2020-01-04 08:00] VITALS: BP 144/79; PULSE 87; RESP 16; TEMP 37; O2SAT 93
[2020-01-04 08:37] LABS: COVID19 Sendout NOT DETECTED
--- NOTE | 2020-01-04 09:08 | CM.DPC ---
DCP cont: Faxed discharge packet (signed med list, PASRR, SNF order and discharge summary) to [facility] at fax # [phone]. Fax confirmation scanned in. Jessica Villanueva Cardiovascular Technologist
[2020-01-04] MEDS: CEFTRIAXONE 2 GM/50 ML FROZ.PIGGY IV (09:29)
[2020-01-04] MEDS: DOCUSATE 100 MG CAPSULE PO (09:29)
[2020-01-04] MEDS: METFORMIN HCL 500 MG TABLET 1000 MG PO (09:29)
[2020-01-04] MEDS: ASPIRIN EC 81 MG TABLET PO (09:29)
[2020-01-04] MEDS: buPROPion XL 150 MG TAB 300 MG PO (09:29)
[2020-01-04] MEDS: VERAPAMIL 80 MG TABLET PO (09:30)
--- NOTE | 2020-01-04 10:31 | CM.DPNOTE ---
Addendum entered by KRISTI Caro 01/04/20 11:19: Pt able to tolerate sitting up in chair. BLS cancelled and [facility] picking up at 1130 via w/c Original Note: DC Note DC order in place and Dr Yang has completed all ppk necessary for DC to [facility] today; no wound vac Placed call to February at [facility] to update and requested Infection Prevention Coordinator [facility] schedule non emergent BLS for transport today. Patient remains aware and agreeable to plan [facility] arranged 1100 p/u time and all DC ppk, including completed PASRR, has been faxed to [facility] RN to RN is P# [phone], EVERETT Crook updated. P: DC to [facility] w/6 wks IV abx (PICC in place) via BLS KRISTI Caro
--- NOTE | 2020-01-04 11:15 | PT.IPTN ---
Current Diagnoses Pressure ulcer of right buttock, stage 3 (12/21/19) Urinary tract infection, site not specified (12/21/19) Disruption of external operation (surgical) wound, not elsewhere classified, initial encounter (12/21/19) Arthrodesis status (12/21/19) Surgery Performed Operation Date: 12/21/19 07:45 Actual Procedures p Lumbar wound I&D with wound vac placement - Kt Escalera MD Operation Date: 12/23/19 09:00 Actual Procedures p Incision and Drainage Spine, Wound Vac Exchange - Kt Escalera MD Operation Date: 12/26/19 07:45 Actual Procedures p Incision and Drainage Wound/Spine, debridement of right posterior thigh wound(Not Applicable) - Andrea Pascal MD Operation Date: 12/30/19 10:00 Actual Procedures p Irrigation and Debridement lumbar wound skin, fascia and muscle, wound vac sponge exchange - Kt Escalera MD Operation Date: 01/02/20 13:00 Actual Procedures p Incision, debridment and closure back wound(Not Applicable) - Kt Escalera MD Physical Therapy Treatment Note M2 PT-IP Current Condition Start: 12/22/19 12:46 Freq: NEEDED Status: Active Protocol: Document 12/24/19 15:35 LRN (Rec: 12/24/19 17:18 LRN [id number]) Physical Therapy Current Condition Current Condition Evaluation Date 12/24/19 Treatment Diagnosis s/p lumbar wound I&D; difficulty in walking Onset Date 12/21/2019 Precautions Lumbar Precautions Log Roll,No Twisting,Limit Bending,Lifting Restriction of 10 lbs,Gait Belt above Incisional Area Weight Bearing Status Weight Bearing Status Weight Bear as Tolerated M3 PT-IP Subjective Start: 12/22/19 12:46 Freq: NEEDED Status: Active Protocol: Document 01/04/20 10:33 AW (Rec: 01/04/20 11:15 AW [id number]) Subjective Physical Therapy Visit Type Type Treatment Note Visit Start Time 10:11 Visit Stop Time 10:30 Total Visit Minutes 19 Number of BEATER LEAD Visits 0 Physical Therapy Visit Comments Patient Comments Pt interested in getting up to chair to prepare for discharge to [facility]. Patient Goals Discharge to [facility] today Therapy Pain Assessment Pain When Pain Assessed During Mobility Pain Present Pain Present Pain Reported Location lower back Intensity 5 Scale Used Numeric (1 - 10) Pain Behaviors Facial Grimacing,[place] Pain Management Techniques Distraction,Re-positioning, Timing of Activity with Medications M4 PT-IP Mobility and Gait Start: 12/22/19 12:46 Freq: NEEDED Status: Active Protocol: Document 01/04/20 10:33 AW (Rec: 01/04/20 11:15 AW [id number]) PT-Bed Mobility Assessment Rolling Type of Rolling Log Rolling,Roll to Left Level of Assist Moderate Assistance,1 Person Assistance Supine to Sit Supine to Sit Moderate Assistance,1 Person Assistance,Bedrails Scooting Scooting to Edge of Bed Minimal Assistance,Moderate Assistance PT-Transfer Assessment Sit to and From Stand Sit to and from Stand Minimal Assistance,1 Person Assistance,Use of Upper Extremities Equipment Transfer Assistive Device Gait Belt,Front Wheeled Walker Orthotic/Prosthetic Devices or Brace: No Transfers Transfer Destination Chair Transfer Ability Level of Assist Moderate Assistance,1 Person Assistance,Use of Upper Extremities Comments Mobility Comments Pt was sitting up in bed upon PT arrival. With HOB flat, pt completed log roll to left side mod A x 1 including assist to bend both knees before initating roll. Pt then completed sidelying to sit mod A x 1 with complaint of increased pain. She required cues to keep her eyes open and for deep breathing to manage her pain. She sat EOB with UE support requiring no external support. She was also able to sit briefly without UE support . Sit to stand required min A x 1 with CERTIFIED CODER assisting for safety. Pt walked 4 feet to the chair, requiring min A x 1 . She stood for ~4 minutes while RN assessed and removed drain from lumbar wound before needing to sit. She was positioned in the chair and left with CERTIFIED CODER and RN attending . Gait Assessment Gait Gait Assistance Required: Contact Guard Assist,Minimum Assistance,1 Person Assist Distance (Feet) 4 Able to Maintain Weight Bearing Status Yes During Gait Assistive Devices Assistive Device Gait Belt,Front Wheeled Walker Orthotic/Prosthetic Devices or Brace: No Gait Deviations General Gait Pattern Antalgic,Decreased Stride Length,Decreased Feet Clearance,Step-to Gait Factors Limiting Gait Function Factors Limiting Gait Function Decreased Activity Tolerance, Decreased Strength,Limited Range of Motion,Pain,Poor Balance,Poor Safety Awareness Comments Gait Comments see mobility comments PT-Balance Assessment Sitting Balance and Reactions Static Sitting Balance Ability Fair Dynamic Sitting Balance Ability Fair Standing Balance and Reactions Static Standing Balance Ability Fair Dynamic Standing Balance Ability Fair Device Used FWW M5 PT-IP Objective Assessments Start: 12/22/19 12:46 Freq: NEEDED Status: Active Protocol: Document 12/24/19 10:35 LRN (Rec: 12/24/19 13:59 LRN [id number]) Orientation Orientation/Cognition Level of Alertness Alert Orientation Name,Age,Birthday,Month,Date, Year,Day of Week,Place, Situation Language Function Ability Hard of Hearing Gross Range of Motion Upper Extremity ROM Assessment Within Functional Limits Lower Extremity ROM Assessment Bilaterally Impaired Strength Upper Extremity Strength Assessment Within Functional Limits Lower Extremity Strength Assessment Bilaterally Impaired M6 PT-IP Treatment Start: 12/22/19 12:46 Freq: NEEDED Status: Active Protocol: Document 01/04/20 10:33 AW (Rec: 01/04/20 11:15 AW [id number]) Physical Therapy Treatment Education Education Provided Precautions,Safety M7 PT-IP Assessment and Plan Start: 12/22/19 12:46 Freq: NEEDED Status: Active Protocol: Document 01/04/20 10:33 AW (Rec: 01/04/20 11:15 AW [id number]) PT Summary Assessment and Plan Potential Rehabilitation Potential Fair Status of Condition at Evaluation Evolving Summary Impairments Pain,ROM,Strength,Balance, Coordination,Sensation,Tone, Cognition,Bed Mobility, Transfers,Gait,Activity Tolerance Progress Towards Goals Slow Progress due to Pain,Slow Progress due to Medical Issues,Slow Progress due to Activity Tolerance Assessment Summary Pt seen for first time since 5th I&D on 01/02/20. She required similar assist compared with last session and is anxious to discharge to SNF to continue rehab. Goals Bed Mobility Goal Moderate Assistance Transfer Goal Moderate Assistance,Front Wheeled Walker Gait Goal Moderate Assistance,Front Wheel Walker Gait Distance 50 Days to Meet Goals 5 Frequency of Treatment Frequency Of Treatment Twice a Day Treatment Plan Physical Therapy Treatment Plan Bed Mobility Training,Transfer Training,Gait Training, Therapeutic Exercise,Balance Retraining,Post Op Education, Discharge Planning,Hot or Cold Pack,Neuromuscular Re-ed, Coordination Retraining,Manual Therapy Other Recommendations and Next Treatment transfers, ambulation Focus Recommendations To Nursing Amount of Assist Needed 2 Person Assist Discharge Recommendations PT Discharge Recommendations SNF Rehab Transportation Needs at Discharge Wheelchair/Cabulance
--- NOTE | 2020-01-04 11:38 | PC.NURSE ---
Discharge Pt d/c to rehab. report called to edouard FLOYD. Pt took her belongings with her aside from one bag of clothes that will be sent over to later today. Dressing changed prior to d/c as HV was removed prior to d/c as ordered and dressing was around HV site. Drain removed without issue. Pt's sister requested info on POA paperwork, sent pamphlet with pt, SV will give sister the pamphlet when she brings clothes for pt. 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
== END 2020-01-04 11:30 | DRG 856 ==
PROVIDERS: Orthopaedic Surgery; Orthopaedic Surgery Foot and Ankle Surgery; Admitting Provider Orthopaedic Surgery Orthopaedic Surgery of the Spine; PCP Physician Assistant Medical; Referring Provider Orthopaedic Surgery Orthopaedic Surgery of the Spine; Visit Provider Orthopaedic Surgery Orthopaedic Surgery of the Spine
PROC: 0QB00ZZ Excision of Lumbar Vertebra, Open Approach (ICD-10-PCS; CPT 10180; principal; 2019-12-21 07:45)
PROC: 0KDG0ZZ Extraction of Left Trunk Muscle, Open Approach (ICD-10-PCS; CPT 10180; principal; 2019-12-30 10:00)
DX: T81.42XA Infection following a procedure, deep incisional surgical site, initial encounter (principal); L89.313 Pressure ulcer of right buttock, stage 3; E43 Unspecified severe protein-calorie malnutrition; I96 Gangrene, not elsewhere classified; Z68.41 Body mass index [BMI] 40.0-44.9, adult; I69.351 Hemiplegia and hemiparesis following cerebral infarction affecting right dominant side; E11.52 Type 2 diabetes mellitus with diabetic peripheral angiopathy with gangrene; E66.01 Morbid (severe) obesity due to excess calories; L89.890 Pressure ulcer of other site, unstageable; E11.69 Type 2 diabetes mellitus with other specified complication; T83.091A Other mechanical complication of indwelling urethral catheter, initial encounter; M48.062 Spinal stenosis, lumbar region with neurogenic claudication; B96.89 Other specified bacterial agents as the cause of diseases classified elsewhere; M54.16 Radiculopathy, lumbar region; R25.2 Cramp and spasm; F32.9 Major depressive disorder, single episode, unspecified; F41.9 Anxiety disorder, unspecified; Z79.84 Long term (current) use of oral hypoglycemic drugs; Z03.818 Encounter for observation for suspected exposure to other biological agents ruled out
CPT/HCPCS: 36415; 80048; 82962; 85014; 85018; 85025; 87070; 87075; 87077; 87086; 87186; 87205; 87635; 94760; 94762; 97110; 97116; 97162; 97164; 97166; 97530; 97535; J0330; J0690; J0696; J1170; J1642; J2250; J2405; J2543; J2704; J3010

== ENCOUNTER → 2020-01-11 10:25 | Outpatient (ROUT) | payer MEDICARE, MEDICAID, SELFPAY ==
[2019-12-21 14:49] VITALS: BMI 43.6
[2020-01-13 13:06] LABS: COVID19 Sendout Not Detected (Not Detected)
--- NOTE | 2020-01-16 16:58 | P.HP_ITS ---
History of Present Illness History of Present Illness Date Patient Seen: 01/16/20 Time Patient Seen: 16:58 Date of Onset of Symptoms: 01/15/20 Chief complaint: LAB Narrative: 69-year-old female who had history of a lumbar laminectomy and fusion with Dr. Escalera on 11/26/2019. She had a postoperative wound infection and underwent multiple washouts, the last was on 01/02/2020 and she was discharged to [facility] on 01/04/2020. She has had some serous drainage since admission, but recently was seen by the wound care service. She has been draining and soaking through 1-2 ABD pads a day for the past 2 days. No fever chills. She is still getting Rocephin through her IV. Still having pain in the back but overall getting better and she is mobilizing more. I saw her at [facility] facility this afternoon. Patient History Medical History Acute kidney injury (Acute ~12/2018) Cardiomegaly (Acute) Depression with anxiety (Chronic) Easy bruisability (Acute) History of concussion (Acute) History of recurrent TIAs (Acute) History of stroke (Resolved) Hyperlipidemia associated with type 2 diabetes mellitus (Chronic) Hypothyroid (Acute) Migraine (Chronic) Morbid obesity with BMI of 45.0-49.9, adult (Chronic) Neuropathy (Acute) ABIOLA on CPAP (Acute) Osteopenia (Acute) Polyneuropathy (Acute) Radiculopathy (Acute) Type 2 diabetes mellitus (Chronic) Vitamin D deficiency (Acute) Surgical History History of 3 sections (Acute) History of lumbar spinal fusion (Acute 06/27/17) History of spinal surgery (Resolved) History of ventral hernia repair (Inactive) Hx of umbilical hernia repair (Acute) S/P cholecystectomy (Inactive) S/P trigger finger release (Inactive) Family & Social History Family History Other Family history non-contributory Social History: household members none Tobacco & Substance use: Smoking Status Never smoker alcohol intake never alcohol intake frequency 0-2 drinks per day Substance Use Type does not use,painkillers Meds Home Medications and Allergies Home Medications Medication Instructions Recorded Confirmed Type fenofibrate 54 mg PO BEDTIME #0 06/15/17 12/21/19 History metformin 1,000 mg PO BID 02/02/18 12/21/19 History gabapentin 600 mg PO TID PRN 04/19/18 12/21/19 History bupropion HCl 300 mg PO DAILY 10/25/18 12/21/19 History trazodone 150 mg PO BEDTIME 10/25/18 12/21/19 History verapamil 80 mg PO BID 10/25/18 12/21/19 History sumatriptan succinate [Imitrex] 6 mg SUBCUT Q2H PRN #30 ml 01/07/19 12/21/19 Rx acetaminophen 650 mg PO Q6HR PRN #60 tab 11/30/19 12/21/19 Rx aspirin 81 mg PO DAILY #60 tab 11/30/19 12/21/19 Rx hydroxyzine pamoate 25 mg PO Q4HR PRN #30 cap 11/30/19 12/21/19 Rx polyethylene glycol 3350 [Miralax] 17 g PO DAILY 12/21/19 12/21/19 History ceftriaxone in dextrose,iso-os 2 gm IV Q24H 42 Days each 01/04/20 Rx cyclobenzaprine 5 mg PO Q8HR PRN #20 tab 01/04/20 Rx docusate sodium [DOK] 100 mg PO BID #30 cap 01/04/20 Rx oxycodone 5 - 10 mg PO Q3HR PRN #60 tab 01/04/20 Rx Allergies Allergy/AdvReac Type Severity Reaction Status Date / Time vancomycin Allergy Intermediate Flushing & Verified 12/21/19 07:18 rash Exam Const Nutritional Appearance: obese Orientation: alert and oriented x3 Resp Auscultation: clear to auscultation bilaterally Cardio Rate: regular rate Rhythm: regular rhythm Back/Spine/Pelvis Other: Serosanguineous drainage on her fresh ABD pad. 4 cm central region with approximately 8 mm of fibrinous tissue between the skin edges. Remainder of the stellate wound does not appear to have any tension across the abbey or sutures. Assessment & Plan Assessment & Plan narrative: Postoperative wound infection. I explained the patient that I think he would be in her best interest to return to the operating room for debridement. She may need a no other wound VAC we may able to close this primarily. However as this appears to be opening up and full of fibrinous tissue, I do not think is going to heal very well on its own. Risks and benefits of surgery were discussed including not limited to medical risk with heart attack, stroke, , DVT, PE, infection, bleeding, scarring, nerve injury with pain numbness weakness paralysis, nonunion, failure to alleviate symptoms, need for further surgery. We will have her NPO after midnight. Plan for surgery tomorrow morning.
== END ==
PROVIDERS: PCP Physician Assistant Medical; Visit Provider Internal Medicine
DX: Z11.59 Encounter for screening for other viral diseases (principal)
CPT/HCPCS: 87635

== ENCOUNTER 2020-01-17 08:20 | Inpatient (IN) | payer MEDICARE, MEDICAID, SELFPAY ==
[2019-12-21 14:49] VITALS: BMI 43.6
[2020-01-17] VITALS (19 sets, daily range): BP systolic 101–150; BP diastolic 39–87; PULSE 85–107; RESP 11–94; TEMP 36.1–36.9; O2SAT 84–100; BMI 43.6; BMI 41.6
[2020-01-17] MEDS: LACTATED RINGERS 1,000 ML 42 ML IV ×2 (09:10→11:45)
--- NOTE | 2020-01-17 09:52 | PM.PREOP ---
Pre-operative Note COVID-19 COVID-19 status: Not tested Result date/Date tested (Pos, Neg/Pending): 01/05/20 Interval Note History & Physical reviewed/Exam performed by Physician: Yes Changes to H&P: No
[2020-01-17] MEDS: CEFTRIAXONE 2 GM/50 ML FROZ.PIGGY IV (10:13)
[2020-01-17] MEDS: SODIUM CHLORIDE 0.9% 1,000 ML, GENTAMICIN 80 MG IRR (10:47)
--- NOTE | 2020-01-17 11:41 | PM.OP.1 ---
Operative Date/Time/Diagnoses Date of procedure: 01/17/20 Time of procedure: 11:41 Pre-op diagnosis: Postoperative lumbar wound infection Post-op diagnosis: same Procedure & Clinicians Procedure: Irrigation debridement of lumbar wound infection Incisional Debridement of 6 x 8 cm central wound down through the superficial tissue to the layer of the fascia with sharp debridement Placement of wound VAC Same procedure as scheduled: Yes Indications: 69-year-old female who had a postoperative wound infection. She had been through multiple washouts. I was contacted by her [facility] facility yesterday she was having increased drainage. The wound had dehisced in the middle and was mostly fibrin is tissue. Was felt that this would not heal up without further debridement and I recommended coming back to the operating room. Risks and benefits of surgery discussed appropriate consents obtained. Surgeon: Andrea Pascal Click Yes if Unassisted: Yes Anesthesia Type: General Operative Notes Findings: None Closure Type: non-primary Specimen(s): other (Wound cultures) Estimated Blood Loss (mL): 20 Procedure in detail: Patient brought to the operating room and intubated on the stretcher. The coronavirus precautions were taken. A time-out was performed. She was rolled over the well-padded prone position on the Arnel table. Preoperative antibiotics were given with Rocephin, which was treating her infection previously. All the abbey removed and the central stitches were removed but the edges that still had good approximation were left alone. The back was prepped and draped in the standard sterile fashion. Culture swabs were placed deep into the tissue and sent to microbiology. We then used a sharp Collins to sharply debride the central aspect of her incision remove the questionable nonviable tissue. There was a large amount of yellow fibrinous tissue removed. We used a scalpel to sharply remove the thick fibrinous edges down to fresh tissue. The deep layer was inspected and appeared to be intact. The deep fascia was debrided with a Collins as well. At the end of this everything was down to healthy pink tissue. The wound was then copiously irrigated. I then took a small wound VAC and placed it in the wound. This was sealed over with a watertight seal and activated to 125 mmHg. Her posterior thigh wound was inspected underneath her dressing in this appeared to be cleaning up very nicely. Nothing further was done with this. She was then rolled over, extubated and brought to the recovery room. Complications: none Post-operative Condition: stable Disposition: PACU Plan for aftercare: Inpatient. Continue IV antibiotics. Plan to return to the operating room in 2-3 days for repeat washout.
[2020-01-17] MEDS: HYDROMORPHONE 2 MG INJ IV (12:19)
--- NOTE | 2020-01-17 12:37 | SUR.PHASEI ---
Patient tolerates po. States it hurts a little Gave IV pain medication.
--- NOTE | 2020-01-17 12:38 | SUR.PHASEI ---
Wound vac on to therapy. 126 mm/hg.
--- NOTE | 2020-01-17 13:09 | DIET.PN ---
Dietary Progress Note Assessment: 69y F previously working with this RD to support protein needs for wound healing. Pt had repeat i&d c wound vac placed related to increased drainage from thoracic site c plans by Dr. Pascal to repeat procedure in 2-3d. HT: 162.5cm WT: 115.2kg BMI: 43.6 Nutrition Diagnosis: inadequate protein intake r/t unhealing wounds in thoracic region aeb pt readmitted for repeat I&D, increased protein needs to heal tissue. Interventions: 1. Continue providing pt 50g protein on each meal tray minimizing filler foods to encourage protein and vegetable consumption. 2. Continue ONS John bid to support wound healing as pt likes this product 3. Tight glycemic control <200 to support collagen formation Diet Order: CCD 3 c 150g PRO/d
[2020-01-17] MEDS: LACTATED RINGERS 1,000 ML 125 ML IV ×2 (13:27→20:43)
[2020-01-17] MEDS: OXYCODONE IR 5 MG TABLET PO ×2 (13:29→19:04)
[2020-01-17] MEDS: ACETAMINOPHEN 325 MG TABLET 650 MG PO (13:29)
--- NOTE | 2020-01-17 13:33 | CM.IDA ---
Initial DCP Assessment Note: Pt is a 69 yo female, resident of [place], has been in and out of SNF s/p spinal surgery and subsequent post operative wound infection w/multiple I+Ds and wound vac placement. PCP: Erick Cee Payer: AKUA/RYAN Patient returns today from [facility] for additional I+D and wound vac placement by Dr Pascal. Patient will stay this evening at the least. Placed call to February at [facility], asked if patient would require updated COVID test and yes patient will require. Placed call to Dr Pascal's ophthalmic medical technologist to review above and requested order for COVID-19 test collection today; emphasized that the request was for Discharge planning purposes only ..verbal order taken by EVERETT Isaacs for collection today. This ENVIRONMENTAL ASSOCIATE following closely for coordination of DCP. Patient is expected to DC back to [facility], Ortho Surgical team are managing medical POC KRISTI Caro
--- NOTE | 2020-01-17 14:04 | PT-IP ANOTE ---
Received PT orders and reviewed chart. Pt just returned to AC from OR. Will plan to check on pt for evaluation morning of 01/18/20.
[2020-01-17] MEDS: GABAPENTIN 600 MG TABLET PO (14:42)
--- NOTE | 2020-01-17 15:43 | PC.NURSE ---
Addendum entered by Shital Moore R.N. 01/17/20 15:59: COVID-19 rule out swab sent to lab prior to pt discharging to SNF in next 1-2 days. Pt now in isolation precautions for rule out COVID-19. Original Note: Day Shift- Report from PACU retrieved from RN Coordinator Umu. Pt arrived to unit room 216 at 1248, settled into BRAULIO bed from stretcher using slider board. Oriented to call light, bed function, phone. Mid lower back wound VAC dressing covering incision. Wound vac to 125mmhg continuous suction. Calf SCD's placed. Pt given water and apple sauce with prn Tylenol and Oxycodone at 1330 for 6/10 aching, throbbing back pain at incision site. Upon reassessment pt reports pain 6/10, PRn Gabapentin given.
[2020-01-17] MEDS: DOCUSATE 100 MG CAPSULE PO (20:42)
[2020-01-17] MEDS: SENNOSIDES 8.6 MG TABLET 17.2 MG PO (20:42)
[2020-01-17] MEDS: METFORMIN HCL 500 MG TABLET 1000 MG PO (20:42)
[2020-01-17] MEDS: FENOFIBRATE 48 MG TABLET PO (20:45)
[2020-01-17] MEDS: VERAPAMIL 80 MG TABLET PO (20:45)
[2020-01-17] MEDS: TRAZODONE 50 MG TABLET 150 MG PO (20:47)
[2020-01-18] VITALS (9 sets, daily range): BP systolic 101–134; BP diastolic 58–69; PULSE 88–103; RESP 15–17; TEMP 36.5–37.2; O2SAT 92–97
[2020-01-18] MEDS: OXYCODONE IR 5 MG TABLET PO ×5 (00:01→17:26)
--- NOTE | 2020-01-18 00:39 | PC.NURSE ---
Addendum entered by Maria Alejandra Higgins R.N. 01/18/20 03:53: Incontinent of urine so brief/bedding changed, pericare given and barrier cream applied. States pain is currently 5/10 so medicated with Oxycodone. Repositioned onto left side. Addendum entered by Maria Alejandra Higgins R.N. 01/18/20 02:56: COVID-19 test reported back as negative; isolation precautions d'cd. Original Note: Patient seen and assessed at 0000. Is alert and oriented. Breath sounds diminished but CTA with sat of 97% on oxygen at 2L/min being monitored with continuous pulse oximetry. HRR. Denies nausea. BT present but denies flatus as yet; abdomen is soft. Has been voiding using bedpan and denies dysuria, frequency or urgency. Needing assistance to reposition q2h but is able to help with turning. Wound vac intact to back incision and connected to 125mm hg continuous suction. Allevyn dressing to right medial thigh is CDI. At shift change denied pain but after repositioning states pain is 6/10 so medicated with Oxycodone. Wearing bilateral calf SCD's. Currently on contact/droplet/aerosolizing precautions while COVID-19 is being ruled out. Fall risk score is high and bed alarm is activated. Did become quite tearing with activity and discussed with RN feelings of depression related to repeated surgeries; allowed to vent. Patient states she is seeing a counselor who has helped.
[2020-01-18 02:33] LABS: COVID19 Sendout Not Detected (Not Detect)
[2020-01-18] MEDS: LACTATED RINGERS 1,000 ML 125 ML IV (05:32)
[2020-01-18] MEDS: SODIUM CHLORIDE 0.9% FLUSH 10 ML IV ×4 (05:38→22:33)
[2020-01-18 06:06] LABS: Add Manual Diff / Slide Review NO; Basophils Absolute Auto 0 /uL (0-100); Basophils Percent Auto 0.8 % (0-2); Eosinophils Absolute Auto 400 /uL (0-450); Eosinophils Percent Auto 7.6 % (2-4); Hematocrit 27.1 % (36-46); Hemoglobin 8.9 g/dL (12.0-16.0); Lymphocytes Absolute Auto 1300 /uL (1100-4500); Lymphocytes Percent Auto 27.3 % (25-40); Mean Corpuscular HGB Conc 32.8 % (30-36); Mean Corpuscular Hemoglobin 29.9 PG (26-34); Mean Corpuscular Volume 91.1 fL (80-100); Monocytes Absolute Auto 600 /uL (0-900); Monocytes Percent Auto 11.9 % (3-14); Neutrophils Absolute Auto 2500 /uL (1500-7000); Neutrophils Percent Auto 52.4 % (50-75); Platelet Count 278 X10^3/uL (150-400); Red Blood Cell Count 2.97 X10^6/uL (4.0-5.2); Red Cell Distribution Width 15.2 % (11.6-14.8); White Blood Cell Count 4.7 X10^3/uL (4.5-11.0)
[2020-01-18 06:10] LABS: BUN Creatinine Ratio 11.5 (6-22); Blood Urea Nitrogen 7 mg/dL (7-17); C-Reactive Protein Quant 1.7 mg/dL (<1.0); Carbon Dioxide 30 mmol/L (22-32); Chloride 106 mmol/L (98-107); Estimated Glomerular Filt Rate > 60.0 mL/min (>60); Glucose 104 mg/dL (80-110); HEMOLYSIS < 15 (0-50); Potassium 3.7 mmol/L (3.4-5.1); Sodium 139 mmol/L (137-145)
[2020-01-18 06:30] LABS: Erythrocyte Sedimentation Rate 40 MM/HR (0-20)
[2020-01-18] MEDS: SODIUM CHLORIDE 0.9% 250 ML 21 ML IV (09:22)
[2020-01-18] MEDS: CEFTRIAXONE 2 GM/50 ML FROZ.PIGGY IV (09:22)
[2020-01-18] MEDS: VERAPAMIL 80 MG TABLET PO ×2 (09:27→21:58)
[2020-01-18] MEDS: METFORMIN HCL 500 MG TABLET 1000 MG PO ×2 (09:27→21:56)
[2020-01-18] MEDS: polyethylene glycoL 3350 17 GM POWD.PACK PO (09:28)
[2020-01-18] MEDS: buPROPion XL 150 MG TAB 300 MG PO (09:28)
[2020-01-18] MEDS: ASPIRIN EC 81 MG TABLET PO (09:28)
[2020-01-18] MEDS: DOCUSATE 100 MG CAPSULE PO ×2 (09:28→21:56)
--- NOTE | 2020-01-18 10:19 | PC.NURSE ---
Addendum entered by Shital Moore R.N. 01/18/20 10:48: Pt to BSC then recliner chair with PT, 2PA for staff. Original Note: Day Shift- Dr. Pascal called at 1015 for a pt update. Pt currently working with PT, pt sitting on bedside. WOund vac dressing CDI, no leaking noted. Plan for OR on Friday 01/19for washout. Requested Dr. Pascal to call pt's daughter Gabbie for update at [phone].
--- NOTE | 2020-01-18 11:46 | PT.IIE ---
Current Diagnoses Disruption of external operation (surgical) wound, not elsewhere classified, initial encounter (01/17/20) Arthrodesis status (01/17/20) Surgery Performed Operation Date: 01/17/20 09:45 Actual Procedures p Incision and Drainage Wound/Spine, Lumbar - Andrea Pascal MD Operation Date: 01/20/20 07:45 <No data on this case meets the specified criteria> Operation Date: 01/22/20 10:00 <No data on this case meets the specified criteria> Surgical History (Last Reviewed 01/16/20 @ 17:03 by Andrea Pascal MD) History of 3 sections (Acute) History of lumbar spinal fusion (Acute 06/27/17) History of spinal surgery (Resolved) History of ventral hernia repair (Inactive) Hx of umbilical hernia repair (Acute) S/P cholecystectomy (Inactive) S/P trigger finger release (Inactive) Medical History (Last Reviewed 01/16/20 @ 17:03 by Andrea Pascal MD) Acute kidney injury (Acute ~12/2018) Cardiomegaly (Acute) Depression with anxiety (Chronic) Easy bruisability (Acute) History of concussion (Acute) History of recurrent TIAs (Acute) History of stroke (Resolved) Hyperlipidemia associated with type 2 diabetes mellitus (Chronic) Hypothyroid (Acute) Migraine (Chronic) Morbid obesity with BMI of 45.0-49.9, adult (Chronic) Neuropathy (Acute) ABIOLA on CPAP (Acute) Osteopenia (Acute) Polyneuropathy (Acute) Radiculopathy (Acute) Type 2 diabetes mellitus (Chronic) Vitamin D deficiency (Acute) Physical Therapy Inpatient Evaluation/Re-Eval M1 PT/OT-IP Prior Functional Status Start: 01/18/20 08:21 Freq: NEEDED Status: Active Protocol: Document 01/18/20 10:54 AW (Rec: 01/18/20 11:46 AW [id number]) Medical Review Prior Functional Status Medical History Reviewed Yes Diet/Fluid Consistency Regular Communication Able to make needs known. Mobility and Gait Prior to lumbar spine surgery on 11/26/19, pt was ambulating modified independent with 4WW for household and short community distances. She was using a manual wheelchair for longer distances. She discharged from her surgical stay to SNF rehab and has now been re-admitted twice with wound dehiscence. At most recent SNF, pt reports she was ambulating short distances with FWW Social History Household Members none Living Arrangements Skilled Nurse Facility Home Environment High Toilet,Tub/Shower Home Equipment Four Wheel Walker,Manual Wheelchair,Tub Transfer Bench, Hand Held Shower,Grab Bars Near Toilet,Grab Bars In Shower Additional Social History Comment Pt has been at SNF rehab since first surgery in early November. Her home is a ground floor apartment in the same complex as her daughter. Prior to surgery, she had a caregiver M -F [phone]. Home details above refer to her apartment. M2 PT-IP Current Condition Start: 01/18/20 08:21 Freq: NEEDED Status: Active Protocol: Document 01/18/20 10:54 AW (Rec: 01/18/20 11:46 AW [id number]) Physical Therapy Current Condition Current Condition Evaluation Date 01/18/20 Treatment Diagnosis s/p lumbar wound I&D Onset Date 01/17/20 Precautions Lumbar Precautions Log Roll,No Twisting,Limit Bending,Lifting Restriction of 10 lbs,Gait Belt above Incisional Area M3 PT-IP Subjective Start: 01/18/20 08:21 Freq: NEEDED Status: Active Protocol: Document 01/18/20 10:54 AW (Rec: 01/18/20 11:46 AW [id number]) Subjective Physical Therapy Visit Type Type Initial Evaluation Visit Start Time 09:57 Visit Stop Time 10:50 Total Visit Minutes 53 Number of FLARE WORKER Visits 0 Physical Therapy Visit Comments Patient Comments I wish I weren't in this situation. Patient Goals Pt hopes to return to her home when finished with rehab Therapy Pain Assessment Pain When Pain Assessed During Mobility Pain Present Pain Present Pain Reported Location lower back Intensity 5 Pain Management Techniques Re-positioning,Timing of Activity with Medications M4 PT-IP Mobility and Gait Start: 01/18/20 08:21 Freq: NEEDED Status: Active Protocol: Document 01/18/20 10:54 AW (Rec: 01/18/20 11:46 AW [id number]) PT-Bed Mobility Assessment Rolling Type of Rolling Log Rolling,Roll to Left Level of Assist Minimal Assistance,1 Person Assistance Supine to Sit Supine to Sit Moderate Assistance,1 Person Assistance,Bedrails Scooting Scooting to Edge of Bed Moderate Assistance PT-Transfer Assessment Sit to and From Stand Sit to and from Stand Moderate Assistance,1 Person Assistance,Use of Upper Extremities Equipment Transfer Assistive Device Gait Belt,Front Wheeled Walker Transfers Transfer Destination Chair,Bedside Commode Transfer Technique Stand Step Pivot Transfer Ability Level of Assist Moderate Assistance,Maximum Assistance,1 Person Assistance ,Use of Upper Extremities Comments Mobility Comments Pt sitting up in bed upon PT arrival. She completed log roll to her left side min A x 1 and sidelying to sit mod A x 1. Pt is very familiar with sequencing and required no cues. She required assist to scoot toward EOB. Once sitting , she was able to sit with BUE support for up to one minute. She completed sit to stand with FWW and mod A x 1. She required frequent cues to keep her eyes open but was able to stand erect and maintain posture with FWW for support. She transferred to the BSC mod A x 1 and then to the chair mod-max A x 1. She had difficulty advancing her left leg and required assist to shift her weight for limb advancement. During transfer to the chair, she failed to make contact with one of the chair arms, resulting in poor eccentric control of descent. Pt was reclined in the chair with all needs within reach. RN notified that pt had voided and was up in chair. Gait Assessment Gait Gait Assistance Required: Moderate Assistance,1 Person Assist Distance (Feet) 3 Able to Maintain Weight Bearing Status Yes During Gait Assistive Devices Assistive Device Gait Belt,Front Wheeled Walker Gait Deviations General Gait Pattern Antalgic,Decreased Stride Length,Decreased Feet Clearance,Flexed Trunk,Wide Based Gait Factors Limiting Gait Function Factors Limiting Gait Function Decreased Activity Tolerance, Decreased Sensation,Decreased Strength,Difficulty Following Directions,Limited Range of Motion,Pain,Poor Balance,Poor Safety Awareness Comments Gait Comments See mobility comments Stair Climbing Assessment Comments Stair Climbing Comments Not assessed. PT-Balance Assessment Sitting Balance and Reactions Static Sitting Balance Ability Fair Dynamic Sitting Balance Ability Poor Standing Balance and Reactions Static Standing Balance Ability Poor Dynamic Standing Balance Ability Poor Device Used FWW Balance Tests Single Limb Standing <1 second each M5 PT-IP Objective Assessments Start: 01/18/20 08:21 Freq: NEEDED Status: Active Protocol: Document 01/18/20 10:54 AW (Rec: 01/18/20 11:46 AW [id number]) Orientation Orientation/Cognition Level of Alertness Alert Orientation Name,Day of Week,Place, Situation Language Function Ability Hard of Hearing Safety Awareness Decreased Safety Awareness Memory Description Short Term Impaired Gross Range of Motion Lower Extremity ROM Assessment Within Functional Limits Strength Lower Extremity Strength Assessment Bilaterally Impaired Comments Strength Comments Grossly 3/5 BLE Sensation Assessment Sensation Gross Sensation Right LE Impaired,Left LE Impaired Light Touch Impaired Proprioception (Position) Impaired Sensation Description Numbness Comments Sensation Comments neuropathy affects bilateral feet Muscle Tone Muscle Tone WNL Yes M6 PT-IP Treatment Start: 01/18/20 08:21 Freq: NEEDED Status: Active Protocol: Document 01/18/20 10:54 AW (Rec: 01/18/20 11:46 AW [id number]) Physical Therapy Treatment Education Education Provided Precautions,Weight Bearing Status,Safety Other Treatments Other Treatment Performed Reinforced education on role of PT, plan of care, safe use of FWW, and importance of continued mobility. M7 PT-IP Assessment and Plan Start: 01/18/20 08:21 Freq: NEEDED Status: Active Protocol: Document 01/18/20 10:54 AW (Rec: 01/18/20 11:46 AW [id number]) PT Summary Assessment and Plan Potential Rehabilitation Potential Fair Status of Condition at Evaluation Evolving Summary Impairments Pain,Strength,Balance, Sensation,Cognition,Bed Mobility,Transfers,Gait, Activity Tolerance Assessment Summary Bushra is a 69 yo woman re- admitted for the second time with wound dehiscence following lumbar spine surgery in early November. At recent baseline, she has been using a FWW for short distance ambulation at SNF rehab. On evaluation, Bushra is tearful about her situation but willing to participate with therapy. She required mod - max assist for most mobility and had difficulty advancing her left leg in gait. She will benefit from continued acute PT services to improve her BLE strength as well as her independence with transfers and gait. According to most recent operative note, ortho plans to bring her back to OR for another I&D in the next few days. She will return to SNF at discharge. Goals Bed Mobility Goal Contact Guard Assistance Transfer Goal Minimal Assistance,Four Wheeled Walker Gait Goal Minimal Assistance,Four Wheel Walker Gait Distance 50 Days to Meet Goals 10 Frequency of Treatment Frequency Of Treatment Twice a Day Treatment Plan Physical Therapy Treatment Plan Bed Mobility Training,Transfer Training,Gait Training, Therapeutic Exercise,Balance Retraining,Post Op Education, Discharge Planning,Hot or Cold Pack,Neuromuscular Re-ed Other Recommendations and Next Treatment bed mobility, transfers, ther Focus ex and gait if tolerated Recommendations To Nursing Amount of Assist Needed 2 Person Assist Discharge Recommendations PT Discharge Recommendations SNF Rehab Equipment Needed for Home Before defer to SNF rehab Discharge Transportation Needs at Discharge Wheelchair/Cabulance
--- NOTE | 2020-01-18 13:30 | OT.IP.EVAL ---
Current Diagnoses Disruption of external operation (surgical) wound, not elsewhere classified, initial encounter (01/17/20) Arthrodesis status (01/17/20) Surgery Performed Operation Date: 01/17/20 09:45 Actual Procedures p Incision and Drainage Wound/Spine, Lumbar - Andrea Pascal MD Operation Date: 01/20/20 07:45 <No data on this case meets the specified criteria> Operation Date: 01/22/20 10:00 <No data on this case meets the specified criteria> Past Medical History (Last Reviewed 01/16/20 @ 17:03 by Andrea Pascal MD) Acute kidney injury (Acute ~12/2018) Cardiomegaly (Acute) Depression with anxiety (Chronic) Easy bruisability (Acute) History of concussion (Acute) History of recurrent TIAs (Acute) History of stroke (Resolved) Hyperlipidemia associated with type 2 diabetes mellitus (Chronic) Hypothyroid (Acute) Migraine (Chronic) Morbid obesity with BMI of 45.0-49.9, adult (Chronic) Neuropathy (Acute) ABIOLA on CPAP (Acute) Osteopenia (Acute) Polyneuropathy (Acute) Radiculopathy (Acute) Type 2 diabetes mellitus (Chronic) Vitamin D deficiency (Acute) Surgical History (Last Reviewed 01/16/20 @ 17:03 by Andrea Pascal MD) History of 3 sections (Acute) History of lumbar spinal fusion (Acute 06/27/17) History of spinal surgery (Resolved) History of ventral hernia repair (Inactive) Hx of umbilical hernia repair (Acute) S/P cholecystectomy (Inactive) S/P trigger finger release (Inactive) Occupational Therapy Inpatient Evaluation/Re-Eval M1 PT/OT-IP Prior Functional Status Start: 01/18/20 08:21 Freq: NEEDED Status: Active Protocol: Document 01/18/20 14:44 CGR (Rec: 01/18/20 14:59 CGR [id number]) Medical Review Prior Functional Status Medical History Reviewed Yes Diet/Fluid Consistency Regular Communication Able to make needs known. Mobility and Gait Prior to lumbar spine surgery on 11/26/19, pt was ambulating modified independent with 4WW for household and short community distances. She was using a manual wheelchair for longer distances. She discharged from her surgical stay to SNF rehab and has now been re-admitted twice with wound dehiscence. At most recent SNF, pt reports she was ambulating short distances with FWW Activities of Daily Living and IADL's Pt was SBA for showering and dressing. Pt had a patient registration rep that came M-F [phone] who did the driving, ADLs, and cleaning. Pt's daughter lives in the same apt complex and helps on the weekends and checks on her daily. Pt is able to cook oatmeal for breakfast and otherwise has meals on wheels for food. Social History Household Members none Living Arrangements Skilled Nurse Facility Home Environment High Toilet,Tub/Shower Home Equipment Four Wheel Walker,Manual Wheelchair,Tub Transfer Bench, Hand Held Shower,Grab Bars Near Toilet,Grab Bars In Shower Additional Social History Comment Pt has been at SNF rehab since first surgery in early November. Her home is a ground floor apartment in the same complex as her daughter. Prior to surgery, she had a caregiver M -F [phone]. Home details above refer to her apartment. M2 OT-IP Current Condition Start: 01/18/20 14:43 Freq: Status: Active Protocol: Document 01/18/20 14:44 CGR (Rec: 01/18/20 14:59 CGR [id number]) Occupational Therapy Current Condition Current Condition Evaluation Date 01/18/20 Treatment Diagnosis Back wound I & D Diagnosis Onset Date 01/17/20 M3 OT- IP Subjective and Pain Start: 01/18/20 14:43 Freq: Status: Active Protocol: Document 01/18/20 14:44 CGR (Rec: 01/18/20 14:59 CGR [id number]) OT- Subjective Occupational Therapy Visit Type Type Initial Evaluation Visit Start Time 13:05 Visit Stop Time 13:30 Total Visit Minutes 25 OT Pain Assessment Pain When Pain Assessed At Rest Pain Present Pain Present Pain Reported Location lower back Intensity 5 Scale Used Numeric (1 - 10) Management Techniques Modification of Treatment,Re- positioning,Timing of Activity with Medications M4 OT- IP ADL's Start: 01/18/20 14:43 Freq: Status: Active Protocol: Document 01/18/20 14:44 CGR (Rec: 01/18/20 14:59 CGR [id number]) OT [id number] General Evaluation Self-Feeding Ability Independent Comments OT Self-Feeding Comments Pt had just completed lunch. OT ADL-Grooming General Evaluation Grooming Ability Standby Assistance Areas Needing Assistance Combing/Brushing Hair Comments OT Grooming Comments seated in chair. OT ADL-Oral Care Comments Oral Care Comments Not performed, pt declined. OT ADL-Dressing General Eval Lower Body Dressing Ability Total Assistance Areas Needing Assistance Socks Comments OT Dressing Comments for rearranging socks for safe transfer OT ADL-Toileting Comments OT Toileting Comments Not performed, pt declined need. OT ADL-Bathing Comments OT Bathing Comments Not performed in this session. M5 OT- IP IADL's Start: 01/18/20 14:43 Freq: Status: Active Protocol: Document 01/18/20 14:44 CGR (Rec: 01/18/20 14:59 CGR [id number]) OT-Instrumental Activities of Daily Living Deficits IADL Deficits Identified Deficits Home Safety Awareness Awareness of Need for Assistance at Home Decreased Awareness Ability to Problem Solve Emergency Able to Problem Solve Situations Medication Management Medication Management Caregiver Administers Money Management Money Management Caregiver Provides Assistance Meal Preparation Meal Preparation Caregiver Provides Assist Indirect Sales Representative Indirect Sales Representative Caregiver Provides Assist Driving Driving Comments Pt does not drive. M6 OT- IP Functional Cognition Start: 01/18/20 14:43 Freq: Status: Active Protocol: Document 01/18/20 14:44 CGR (Rec: 01/18/20 14:59 CGR [id number]) Cognitive Factors Limiting Selfcare Function Cognitive Ability Level of Alertness Alert Patient Orientation Name,Age,Birthday,Month,Date, Year,Day of Week,Place, Situation Attention Span Ability Capable of Focused Attention, Capable of Sustained Attention Ability to Follow Commands Able to Follow One Step Commands with Increased Time, Able to Follow One Step Commands with Repetition Memory Description No Deficits Noted Safety Awareness No Deficits Noted Problem Solving Ability No deficits Noted OT- Vision and Hearing OT- Hearing Assessment OT- Hearing Assessment WFL OT- Vision Assessment Visual Acuity Glasses All The Time Visual Attentiveness WFL Occular Pursuits WFL Visual Convergence WFL M7 OT- IP Mobility and Balance Start: 01/18/20 14:43 Freq: Status: Active Protocol: Document 01/18/20 14:44 CGR (Rec: 01/18/20 14:59 CGR [id number]) OT- Bed Mobility Assessment Rolling Type of Rolling Roll to Right,Roll to Left Level of Assistance Standby Assistance Sit to Supine Sit to Supine Assist Maximum Assistance Scooting Scooting to Edge of Bed Standby Assistance OT-Transfer Assessment Sit to and From Stand Sit to and from Stand Moderate Assistance,1 Person Assistance Transfers Transfer Ability Contact Guard Assistance,1 Person Assistance Technique Transfer Destination Bed,Chair Transfer Technique Stand Step Pivot Devices Transfer Assistive Devices Gait Belt,Front Wheeled Walker Comments Mobility Comments Pt requesting to return to bed . OT- Balance Assessment Sitting Balance and Reactions Static Sitting Balance Ability Poor Dynamic Sitting Balance Ability Poor Comments Other Balance Tests/Deviations/Treatment Pt has difficulty maintaining : her sitting balance unsupported seated in chair with increased pain. M8 OT- IP Objective Assessments Start: 01/18/20 14:43 Freq: Status: Active Protocol: Document 01/18/20 14:44 CGR (Rec: 01/18/20 14:59 CGR [id number]) OT Gross Range of Motion Upper Extremity Range of Motion Assessment Within Functional Limits OT Strength Upper Extremity Strength Assessment Within Functional Limits Comments Strength Comments 4/5 OT- Coordination Assessment Upper Extremity Finger to Nose Test Within Functional Limits Finger Tapping Test Within Functional Limits OT-Muscle Tone Assessment Muscle Tone WNL Yes OT Sensation Assessment Edema Edema Absent M9 OT- IP Assessment and Plan Start: 01/18/20 14:43 Freq: Status: Active Protocol: Document 01/18/20 14:44 CGR (Rec: 01/18/20 14:59 CGR [id number]) OT Summary Assessment and Plan Potential Rehabilitation Potential Good Analytic Complexity at Evaluation Moderate Summary OT Impairments Pain,Strength,Balance, Functional Mobility,Dressing, Toileting,Bathing,Toilet Transfers,Shower Transfers, Activity Tolerance Progress Towards Goals Slow Progress due to Pain,Slow Progress due to Medical Issues Assessment Summary Pt is a moderate complexity evaluation s/p multiple I & Ds after her initial lumbar sx on 11/26/19. Pt will benefit from continued OT services to address declines in endurance, ADLs, strength and mobility prior to discharge back to SNF . Pt is not safe for transfer home at this time. Goals Grooming Goal Independent Dressing Goal Independent,Accounting Representative,Sock Aid Toileting Goal Independent Bathing Goal Independent Toilet Transfer Goal Independent Shower Transfer Goal Independent Days to Meet Goals 20 Frequency of Treatment Frequency Of Treatment Once a Day Treatment Plan OT Treatment Plan ADL Training,Functional Mobility,Patient/Family Education,Discharge Planning Other Treatment Recommendations and Next ADLs at sink Treatment Focus Discharge Recommendations OT Discharge Recommendations SNF Rehab Home Equipment Needs TBD Transportation Needs at Discharge Private Vehicle
--- NOTE | 2020-01-18 13:39 | PT.IPTN ---
Current Diagnoses Disruption of external operation (surgical) wound, not elsewhere classified, initial encounter (01/17/20) Arthrodesis status (01/17/20) Surgery Performed Operation Date: 01/17/20 09:45 Actual Procedures p Incision and Drainage Wound/Spine, Lumbar - Andrea Pascal MD Operation Date: 01/20/20 07:45 <No data on this case meets the specified criteria> Operation Date: 01/22/20 10:00 <No data on this case meets the specified criteria> Physical Therapy Treatment Note M2 PT-IP Current Condition Start: 01/18/20 08:21 Freq: NEEDED Status: Active Protocol: Document 01/18/20 10:54 AW (Rec: 01/18/20 11:46 AW [id number]) Physical Therapy Current Condition Current Condition Evaluation Date 01/18/20 Treatment Diagnosis s/p lumbar wound I&D Onset Date 01/17/20 Precautions Lumbar Precautions Log Roll,No Twisting,Limit Bending,Lifting Restriction of 10 lbs,Gait Belt above Incisional Area M3 PT-IP Subjective Start: 01/18/20 08:21 Freq: NEEDED Status: Active Protocol: Document 01/18/20 13:21 SP (Rec: 01/18/20 14:20 SP [id number]) Subjective Physical Therapy Visit Type Type Treatment Note Visit Start Time 13:21 Visit Stop Time 13:39 Total Visit Minutes 18 Notes [place] with OT during transfer and bed mobility. Number of PUBLIC ADDRESS SYSTEM OPERATOR Visits 1 Physical Therapy Visit Comments Patient Comments Pt willing to work with PT. Patient Goals To get back into bed. Therapy Pain Assessment Pain When Pain Assessed During Mobility Pain Present Pain Present Pain Reported Location lower back Intensity 5 Pain Management Techniques Re-positioning,Timing of Activity with Medications M4 PT-IP Mobility and Gait Start: 01/18/20 08:21 Freq: NEEDED Status: Active Protocol: Document 01/18/20 13:21 SP (Rec: 01/18/20 14:20 SP [id number]) PT-Bed Mobility Assessment Rolling Type of Rolling Log Rolling,Bilateral Level of Assist Minimal Assistance,1 Person Assistance Sit to Supine Sit to Supine Moderate Assistance,1 Person Assistance,Bedrails PT-Transfer Assessment Sit to and From Stand Sit to and from Stand Moderate Assistance,2 Person Assistance,Use of Upper Extremities Equipment Transfer Assistive Device Gait Belt,Front Wheeled Walker Transfers Transfer Destination Bed Transfer Technique Stand Step Pivot Transfer Ability Level of Assist Contact Guard Assistance, Minimal Assistance,2 Person Assistance,Use of Upper Extremities Comments Mobility Comments Pt was sitting up in chair during OT treatment when arrived. Pt required Mod x2 to completed sit to stand from chair with good hand placement pushing up from chair arms, used FWW for support during step pivot transfer CGA x1 and Min A x1, OT managed wound vac tubing and PT/OT assisted brief security during transfer chair to bed. Cued for body & FWW spacial awareness positioning while backing up to bed and proper hand placement reaching back for self controlled descent, CGA. Sitting to L sidelying, educated patient keeping shlds and knee together, Mod A of 1 for BLE repositioning onto bed and cued log roll with good spinal alignment. Min A for each LE repositioning to center in bed with verbal spacial performance. Pt requested to lay on L side self performance with use of bed rail and PUBLIC ADDRESS SYSTEM OPERATOR provided pillow placement posteriorly under transfer pad for comfort assist positioning support then pillow between knees after BLE therex. Pt requested to OT before she left to tell nurse that would like meds for her 5/10 pain. PUBLIC ADDRESS SYSTEM OPERATOR educated R sidelying LE exercises, LLE required Mod A during heel slides. Pt had good recall to ankle pumps. Pt was laying on L side with call light and bed alarm on and all needs in reach when left. Nurse in room providing meds when left. Gait Assessment Gait Gait Assistance Required: Contact Guard Assist,Minimum Assistance,2 Person Assist Distance (Feet) 3 Able to Maintain Weight Bearing Status Yes During Gait Assistive Devices Assistive Device Gait Belt,Front Wheeled Walker Gait Deviations General Gait Pattern Antalgic,Decreased Stride Length,Decreased Feet Clearance,Flexed Trunk,Wide Based Gait Factors Limiting Gait Function Factors Limiting Gait Function Decreased Activity Tolerance, Decreased Sensation,Decreased Strength,Difficulty Following Directions,Limited Range of Motion,Pain,Poor Balance,Poor Safety Awareness Comments Gait Comments See mobility comments. Stair Climbing Assessment Comments Stair Climbing Comments Not assessed. PT-Balance Assessment Sitting Balance and Reactions Static Sitting Balance Ability Fair Dynamic Sitting Balance Ability Poor Standing Balance and Reactions Static Standing Balance Ability Poor Dynamic Standing Balance Ability Poor Device Used FWW M5 PT-IP Objective Assessments Start: 01/18/20 08:21 Freq: NEEDED Status: Active Protocol: Document 01/18/20 10:54 AW (Rec: 01/18/20 11:46 AW [id number]) Orientation Orientation/Cognition Level of Alertness Alert Orientation Name,Day of Week,Place, Situation Language Function Ability Hard of Hearing Safety Awareness Decreased Safety Awareness Memory Description Short Term Impaired Gross Range of Motion Lower Extremity ROM Assessment Within Functional Limits Strength Lower Extremity Strength Assessment Bilaterally Impaired Comments Strength Comments Grossly 3/5 BLE Sensation Assessment Sensation Gross Sensation Right LE Impaired,Left LE Impaired Light Touch Impaired Proprioception (Position) Impaired Sensation Description Numbness Comments Sensation Comments neuropathy affects bilateral feet Muscle Tone Muscle Tone WNL Yes M6 PT-IP Treatment Start: 01/18/20 08:21 Freq: NEEDED Status: Active Protocol: Document 01/18/20 13:21 SP (Rec: 01/18/20 14:20 SP [id number]) Physical Therapy Treatment Exercises Exercises Ankle Pumps,Gluteal Sets,Quad Sets,Heel Slides Education Education Provided Precautions,Safety M7 PT-IP Assessment and Plan Start: 01/18/20 08:21 Freq: NEEDED Status: Active Protocol: Document 01/18/20 13:21 SP (Rec: 01/18/20 14:20 SP [id number]) PT Summary Assessment and Plan Potential Rehabilitation Potential Fair Status of Condition at Evaluation Evolving Summary Impairments Pain,Strength,Balance, Sensation,Cognition,Bed Mobility,Transfers,Gait, Activity Tolerance Assessment Summary Pt required Mod A sit to stand 1-2 person, CGA- Min x1-2 during transfer using FWW, sitting to supine Mod A of 1 assist for BLE into bed, CGA- Min during log rolling for LE support and spinal trunk alignment. Pt improved in mobility using fWW and advancing her LLE during pm treatment. She will benefit from continued acute PT services to improve her BLE strength as well as her independence with transfers and gait. According to most recent operative note, ortho plans to bring her back to OR for another I&D tomorrow. She will return to SNF at discharge. Goals Bed Mobility Goal Contact Guard Assistance Transfer Goal Minimal Assistance,Four Wheeled Walker Gait Goal Minimal Assistance,Four Wheel Walker Gait Distance 50 Days to Meet Goals 10 Frequency of Treatment Frequency Of Treatment Twice a Day Treatment Plan Physical Therapy Treatment Plan Bed Mobility Training,Transfer Training,Gait Training, Therapeutic Exercise,Balance Retraining,Post Op Education, Discharge Planning,Hot or Cold Pack,Neuromuscular Re-ed Other Recommendations and Next Treatment bed mobility, transfers, ther Focus ex and gait if tolerated Recommendations To Nursing Amount of Assist Needed 1 Person Assist Discharge Recommendations PT Discharge Recommendations SNF Rehab Equipment Needed for Home Before defer to SNF rehab Discharge Transportation Needs at Discharge Wheelchair/Cabulance
[2020-01-18] MEDS: SENNOSIDES 8.6 MG TABLET 17.2 MG PO (21:57)
[2020-01-18] MEDS: GABAPENTIN 600 MG TABLET PO (21:57)
[2020-01-18] MEDS: FENOFIBRATE 48 MG TABLET PO (21:57)
[2020-01-18] MEDS: TRAZODONE 50 MG TABLET 150 MG PO (22:34)
[2020-01-19] VITALS (9 sets, daily range): BP systolic 121–154; BP diastolic 59–78; PULSE 82–92; RESP 13–20; TEMP 36.4–37.1; O2SAT 92–96
--- NOTE | 2020-01-19 06:56 | PC.NURSE ---
Patient pain 4/10 scheduled ibuprofen given. Patient's IV came out at 0200, check w/ provider to see if new site needs to be started on day shift.
[2020-01-19] MEDS: VERAPAMIL 80 MG TABLET PO ×2 (08:12→21:15)
[2020-01-19] MEDS: DOCUSATE 100 MG CAPSULE PO ×2 (08:13→21:16)
[2020-01-19] MEDS: METFORMIN HCL 500 MG TABLET 1000 MG PO ×2 (08:13→21:15)
[2020-01-19] MEDS: ACETAMINOPHEN 325 MG TABLET 650 MG PO ×2 (08:13→17:53)
[2020-01-19] MEDS: ASPIRIN EC 81 MG TABLET PO (08:13)
[2020-01-19] MEDS: polyethylene glycoL 3350 17 GM POWD.PACK PO (08:13)
[2020-01-19] MEDS: OXYCODONE IR 5 MG TABLET PO ×4 (08:14→21:15)
[2020-01-19] MEDS: buPROPion XL 150 MG TAB 300 MG PO (08:30)
[2020-01-19] MEDS: CEFTRIAXONE 2 GM/50 ML FROZ.PIGGY IV (08:30)
[2020-01-19] MEDS: SODIUM CHLORIDE 0.9% FLUSH 10 ML IV ×3 (08:30→21:17)
--- NOTE | 2020-01-19 11:04 | PM.PNPO.1 ---
Subjective Subjective Date Patient Seen: 01/19/20 Time Patient Seen: 11:04 Interval history: She is managing her pain adequately. She has been up with therapy today. Her wound VAC had been blocked earlier but once she was standing and out of bed it started working again. Exam Vital Signs (past 8 hours): - 01/19/20 06:00 01/19/20 08:12 01/19/20 09:00 Temperature 98.7 F 97.8 F Pulse Rate 89 92 H Respiratory Rate 15 20 Blood Pressure 152/70 H 154/78 H 154/78 H Pulse Oximetry 96 92 Oxygen Delivery Method Room Air,CPAP Oxygen Flow Rate 0 Const Orientation: alert and oriented x3 Back/Spine/Pelvis Other: Dressing CDI. Wound VAC working fine. Objective Labs Result Diagrams: 01/18/20 05:38 01/18/20 05:38 Assessment & Plan Post-op Postoperative Procedures: Procedures Operation Date: 01/17/20 09:45 Actual Procedures Side Surgeon p Incision and Drainage Wound/Spine, Lumbar Andrea Pascal MD She is stable and the wound VAC is working again. Plan to return to the operating room tomorrow for repeat washout possible closure versus more likely changing to a smaller wound VAC. Risks and benefits of surgery were again discussed with the patient and consents obtained. Operation Date: 01/20/20 07:45 <No data on this case meets the specified criteria> Operation Date: 01/22/20 10:00 <No data on this case meets the specified criteria> Quality VTE Deep Vein Thrombosis/Pulmonary Embolism Present on Admission: No
--- NOTE | 2020-01-19 12:15 | PT.IPTN ---
Current Diagnoses Disruption of external operation (surgical) wound, not elsewhere classified, initial encounter (01/17/20) Arthrodesis status (01/17/20) Surgery Performed Operation Date: 01/17/20 09:45 Actual Procedures p Incision and Drainage Wound/Spine, Lumbar - Andrea Pascal MD Operation Date: 01/20/20 07:45 <No data on this case meets the specified criteria> Operation Date: 01/22/20 10:00 <No data on this case meets the specified criteria> Physical Therapy Treatment Note M2 PT-IP Current Condition Start: 01/18/20 08:21 Freq: NEEDED Status: Active Protocol: Document 01/18/20 10:54 AW (Rec: 01/18/20 11:46 AW [id number]) Physical Therapy Current Condition Current Condition Evaluation Date 01/18/20 Treatment Diagnosis s/p lumbar wound I&D Onset Date 01/17/20 Precautions Lumbar Precautions Log Roll,No Twisting,Limit Bending,Lifting Restriction of 10 lbs,Gait Belt above Incisional Area M3 PT-IP Subjective Start: 01/18/20 08:21 Freq: NEEDED Status: Active Protocol: Document 01/19/20 10:35 MB (Rec: 01/19/20 12:14 MB [id number]) Subjective Physical Therapy Visit Type Type Treatment Note Visit Start Time 10:35 Visit Stop Time 11:00 Total Visit Minutes 25 Number of BUTTER MELTER Visits 0 Physical Therapy Visit Comments Patient Comments Pt agreeable to work with PT. Her wound vac is beeping and nsg feels that it might get better if pt moves and PT in agreement. Pt reports 5/10 back pain at rest and 8/10 with mobility and she cries with getting up to EOB. Surgeon arrives and states that pt will have I&D tomorrow . Therapy Pain Assessment Pain When Pain Assessed During Mobility Pain Present Pain Present Pain Reported Location lower back Intensity 8 Pain Management Techniques Re-positioning M4 PT-IP Mobility and Gait Start: 01/18/20 08:21 Freq: NEEDED Status: Active Protocol: Document 01/19/20 10:35 MB (Rec: 01/19/20 12:14 MB [id number]) PT-Bed Mobility Assessment Rolling Type of Rolling Log Rolling,Bilateral Level of Assist Minimal Assistance,1 Person Assistance Supine to Sit Supine to Sit Moderate Assistance,1 Person Assistance,Head of Bed Elevated Scooting Scooting to Edge of Bed Maximum Assistance PT-Transfer Assessment Sit to and From Stand Sit to and from Stand Moderate Assistance,1 Person Assistance,Use of Upper Extremities Equipment Transfer Assistive Device Gait Belt,Front Wheeled Walker Transfers Transfer Destination Chair Transfer Ability Level of Assist Moderate Assistance,1 Person Assistance,Use of Upper Extremities Comments Mobility Comments Pt requires increased time for bed mobility. She has a particularly difficult time scooting out to EOB and tends to lean back rather than forward. PT uses bed pad to scoot her hips forward, mostly with right hip. Her feet do not readily touch the floor and this is part of the problem. Gait Assessment Gait Gait Assistance Required: Minimum Assistance,1 Person Assist Distance (Feet) 2 Assistive Devices Assistive Device Gait Belt,Front Wheeled Walker Gait Deviations General Gait Pattern Antalgic,Decreased Stride Length,Decreased Feet Clearance,Flexed Trunk,Wide Based Gait Factors Limiting Gait Function Factors Limiting Gait Function Decreased Activity Tolerance, Decreased Strength,Difficulty Following Directions,Pain,Poor Balance,Poor Safety Awareness Comments Gait Comments Pt cannot see her feet in walker and has trouble knowing where her feet are, her feet occ go outside of the walker and she requires cues and tactile asst to get them inside the walker. PT-Balance Assessment Sitting Balance and Reactions Static Sitting Balance Ability Poor Dynamic Sitting Balance Ability Poor Standing Balance and Reactions Static Standing Balance Ability Fair Dynamic Standing Balance Ability Poor Device Used FWW M5 PT-IP Objective Assessments Start: 01/18/20 08:21 Freq: NEEDED Status: Active Protocol: Document 01/18/20 10:54 AW (Rec: 01/18/20 11:46 AW [id number]) Orientation Orientation/Cognition Level of Alertness Alert Orientation Name,Day of Week,Place, Situation Language Function Ability Hard of Hearing Safety Awareness Decreased Safety Awareness Memory Description Short Term Impaired Gross Range of Motion Lower Extremity ROM Assessment Within Functional Limits Strength Lower Extremity Strength Assessment Bilaterally Impaired Comments Strength Comments Grossly 3/5 BLE Sensation Assessment Sensation Gross Sensation Right LE Impaired,Left LE Impaired Light Touch Impaired Proprioception (Position) Impaired Sensation Description Numbness Comments Sensation Comments neuropathy affects bilateral feet Muscle Tone Muscle Tone WNL Yes M6 PT-IP Treatment Start: 01/18/20 08:21 Freq: NEEDED Status: Active Protocol: Document 01/19/20 10:35 MB (Rec: 01/19/20 12:14 MB [id number]) Physical Therapy Treatment Exercises Exercises Ankle Pumps Education Education Provided Precautions,Safety Other Treatments Other Treatment Performed Scapular retraction, shoulder rolls M7 PT-IP Assessment and Plan Start: 01/18/20 08:21 Freq: NEEDED Status: Active Protocol: Document 01/19/20 10:35 MB (Rec: 01/19/20 12:14 MB [id number]) PT Summary Assessment and Plan Potential Rehabilitation Potential Fair Status of Condition at Evaluation Evolving Summary Impairments Pain,ROM,Strength,Balance, Coordination,Cognition,Bed Mobility,Transfers,Gait, Activity Tolerance Assessment Summary Pt requires increased time, ongoing cues, max A to scoot to EOB, for mobility. She is tearful d/t pain. She has cognitive deficits, trouble following commands such as bend your right knee and she repeatedly bends her left knee . She has trouble with proprioception. She is planned to have I&D tomorrow and will likely hold PT tomorrow. Her rehab course may be long given multiple medical, pain, wound vac and body habitus issues, decreased mobility at baseline . Goals Bed Mobility Goal Contact Guard Assistance Transfer Goal Minimal Assistance,Four Wheeled Walker Gait Goal Minimal Assistance,Four Wheel Walker Gait Distance 50 Days to Meet Goals 10 Frequency of Treatment Frequency Of Treatment Twice a Day Treatment Plan Physical Therapy Treatment Plan Bed Mobility Training,Transfer Training,Gait Training, Therapeutic Exercise,Balance Retraining,Post Op Education, Discharge Planning,Hot or Cold Pack,Neuromuscular Re-ed Other Recommendations and Next Treatment bed mobility, transfers, ther Focus ex and gait if tolerated Recommendations To Nursing Amount of Assist Needed 2 Person Assist Discharge Recommendations PT Discharge Recommendations SNF Rehab Equipment Needed for Home Before defer to SNF rehab Discharge Transportation Needs at Discharge Wheelchair/Cabulance
--- NOTE | 2020-01-19 14:10 | PT.IPTN ---
Current Diagnoses Disruption of external operation (surgical) wound, not elsewhere classified, initial encounter (01/17/20) Arthrodesis status (01/17/20) Surgery Performed Operation Date: 01/17/20 09:45 Actual Procedures p Incision and Drainage Wound/Spine, Lumbar - Andrea Pascal MD Operation Date: 01/20/20 07:45 <No data on this case meets the specified criteria> Operation Date: 01/22/20 10:00 <No data on this case meets the specified criteria> Physical Therapy Treatment Note M2 PT-IP Current Condition Start: 01/18/20 08:21 Freq: NEEDED Status: Active Protocol: Document 01/18/20 10:54 AW (Rec: 01/18/20 11:46 AW [id number]) Physical Therapy Current Condition Current Condition Evaluation Date 01/18/20 Treatment Diagnosis s/p lumbar wound I&D Onset Date 01/17/20 Precautions Lumbar Precautions Log Roll,No Twisting,Limit Bending,Lifting Restriction of 10 lbs,Gait Belt above Incisional Area M3 PT-IP Subjective Start: 01/18/20 08:21 Freq: NEEDED Status: Active Protocol: Document 01/19/20 13:35 MB (Rec: 01/19/20 14:10 MB [id number]) Subjective Physical Therapy Visit Type Type Treatment Note Visit Start Time 13:35 Visit Stop Time 14:00 Total Visit Minutes 25 Number of POLICE OFFICER Visits 0 Physical Therapy Visit Comments Patient Comments Pt is agreeable to PT. Therapy Pain Assessment Pain When Pain Assessed During Mobility Pain Present Pain Present Pain Reported Location lower back Intensity 5 Pain Management Techniques Re-positioning M4 PT-IP Mobility and Gait Start: 01/18/20 08:21 Freq: NEEDED Status: Active Protocol: Document 01/19/20 13:35 MB (Rec: 01/19/20 14:10 MB [id number]) PT-Bed Mobility Assessment Rolling Type of Rolling Log Rolling,Roll to Right Level of Assist Standby Assistance,1 Person Assistance Supine to Sit Supine to Sit Minimal Assistance,1 Person Assistance,Head of Bed Elevated,Bedrails Sit to Supine Sit to Supine Moderate Assistance,1 Person Assistance,Bedrails Scooting Scooting to Edge of Bed Contact Guard Assistance PT-Transfer Assessment Sit to and From Stand Sit to and from Stand Contact Guard Assistance, Minimal Assistance,1 Person Assistance,Use of Upper Extremities Equipment Transfer Assistive Device Gait Belt,Front Wheeled Walker Transfers Transfer Destination Bed Transfer Ability Level of Assist Contact Guard Assistance,1 Person Assistance,Use of Upper Extremities Comments Mobility Comments Bed mobility much improved this afternoon. Got up to EOB to the right this afternoon with cues to keep knees bent, HOB and lower bed flat. Once on right side, raised HOB and pt lowers legs and PT asst to raise right upper body up. She is able to scoot to EOB with left hand support on BSC to the left and increased time and effort. Pain 5/10 in her back. PT does not asst for scooting. Sit to stand x5 reps x3 with rest breaks, standing up to walker. 5 reps mini marching. 4 lateral steps to the right with RW and min A. CGA to min asst sit to stands. Mod asst to help get her right leg back into bed with lying down on right side. Gait Assessment Gait Gait Assistance Required: Minimum Assistance,1 Person Assist Distance (Feet) 2 Assistive Devices Assistive Device Gait Belt,Front Wheeled Walker Gait Deviations General Gait Pattern Antalgic,Decreased Stride Length,Decreased Feet Clearance,Flexed Trunk,Wide Based Gait Factors Limiting Gait Function Factors Limiting Gait Function Decreased Activity Tolerance, Decreased Strength,Difficulty Following Directions,Pain,Poor Balance,Poor Safety Awareness Comments Gait Comments Wide KARRI for right side stepping to get up towards the HOB to prepare for getting back to bed. PT-Balance Assessment Sitting Balance and Reactions Static Sitting Balance Ability Fair Dynamic Sitting Balance Ability Fair Standing Balance and Reactions Static Standing Balance Ability Fair Dynamic Standing Balance Ability Poor Device Used FWW M5 PT-IP Objective Assessments Start: 01/18/20 08:21 Freq: NEEDED Status: Active Protocol: Document 01/18/20 10:54 AW (Rec: 01/18/20 11:46 AW [id number]) Orientation Orientation/Cognition Level of Alertness Alert Orientation Name,Day of Week,Place, Situation Language Function Ability Hard of Hearing Safety Awareness Decreased Safety Awareness Memory Description Short Term Impaired Gross Range of Motion Lower Extremity ROM Assessment Within Functional Limits Strength Lower Extremity Strength Assessment Bilaterally Impaired Comments Strength Comments Grossly 3/5 BLE Sensation Assessment Sensation Gross Sensation Right LE Impaired,Left LE Impaired Light Touch Impaired Proprioception (Position) Impaired Sensation Description Numbness Comments Sensation Comments neuropathy affects bilateral feet Muscle Tone Muscle Tone WNL Yes M6 PT-IP Treatment Start: 01/18/20 08:21 Freq: NEEDED Status: Active Protocol: Document 01/19/20 13:35 MB (Rec: 01/19/20 14:10 MB [id number]) Physical Therapy Treatment Education Education Provided Precautions,Safety Other Treatments Other Treatment Performed Sit to stands and mini marching with walker in standing. M7 PT-IP Assessment and Plan Start: 01/18/20 08:21 Freq: NEEDED Status: Active Protocol: Document 01/19/20 13:35 MB (Rec: 01/19/20 14:10 MB [id number]) PT Summary Assessment and Plan Potential Rehabilitation Potential Fair Status of Condition at Evaluation Evolving Summary Impairments Pain,ROM,Strength,Balance, Coordination,Cognition,Bed Mobility,Transfers,Gait, Activity Tolerance Assessment Summary Pt with excellent effort despite pain, wound vac, body habitus. She improves with bed mobility and sit to stands and lateral stepping compared to previous treatment. Goals Bed Mobility Goal Contact Guard Assistance Transfer Goal Minimal Assistance,Four Wheeled Walker Gait Goal Minimal Assistance,Four Wheel Walker Gait Distance 50 Days to Meet Goals 10 Frequency of Treatment Frequency Of Treatment Twice a Day Treatment Plan Physical Therapy Treatment Plan Bed Mobility Training,Transfer Training,Gait Training, Therapeutic Exercise,Balance Retraining,Post Op Education, Discharge Planning,Hot or Cold Pack,Neuromuscular Re-ed Other Recommendations and Next Treatment bed mobility, transfers, ther Focus ex and gait if tolerated Recommendations To Nursing Amount of Assist Needed 1 Person Assist Discharge Recommendations PT Discharge Recommendations SNF Rehab Equipment Needed for Home Before defer to SNF rehab Discharge Transportation Needs at Discharge Wheelchair/Cabulance
--- NOTE | 2020-01-19 14:51 | CM.DANOTE ---
DCP Cont: Per Ortho , pt to have second I&D washout tomorrow 01/20/20 with plan of either closure vs smaller wound vac. SW met bedside with pt and explained role and pt confirms that she is agreeable with plan to d/c back to [facility] for ongoing rehab before safe return home. Pt aware that updated COVID test needed and pt is hopeful to d/c back to her previous room at [facility]. Pt confirms that she is agreeable with SW keeping her Dtr Gabbie updated. Plan: SW to follow after second I&D tomorrow to determine wound vac vs closure and timeline for d/c to confirm COVID test results within the 72 hour range for return to [facility]. KRISTI Muñoz
[2020-01-19] MEDS: FENOFIBRATE 48 MG TABLET PO (21:15)
[2020-01-19] MEDS: GABAPENTIN 600 MG TABLET PO (21:16)
[2020-01-19] MEDS: SENNOSIDES 8.6 MG TABLET 17.2 MG PO (21:16)
[2020-01-19] MEDS: TRAZODONE 50 MG TABLET 150 MG PO (21:21)
[2020-01-20] VITALS (19 sets, daily range): BP systolic 98–166; BP diastolic 41–86; PULSE 80–96; RESP 8–18; TEMP 36.2–36.7; O2SAT 90–100; BMI 41.6
[2020-01-20] MEDS: LACTATED RINGERS 1,000 ML 125 ML IV ×3 (07:42→17:48)
--- NOTE | 2020-01-20 07:42 | PM.PREOP ---
Pre-operative Note COVID-19 COVID-19 status: Negative Result date/Date tested (Pos, Neg/Pending): 01/18/20 Interval Note History & Physical reviewed/Exam performed by Physician: Yes Changes to H&P: No
--- NOTE | 2020-01-20 08:23 | SUR.OPER ---
Prone on spine table, head in foam head support, padded chest and pelvic supports, gel pad at knees, lower legs supported by pillows; nipples, genitalia and toes free of pressure, arms secured on foam padded arm boards at <90 degrees abduction. Tape over blanket at thigh secured to table. Extra gel pads to bilateral flanks per surgeon.
--- NOTE | 2020-01-20 08:39 | PM.OP.1 ---
Operative Date/Time/Diagnoses Date of procedure: 01/20/20 Time of procedure: 08:39 Pre-op diagnosis: Postoperative lumbar wound infection Post-op diagnosis: same Procedure & Clinicians Procedure: Sharp Incisional debridement of postoperative lumbar wound infection 8 x 6 cm of the skin and superficial tissue down to the deep fascial layer Same procedure as scheduled: Yes Indications: 69-year-old female with a postoperative wound infection. She had had a washout a few days ago with a wound VAC placement and would need of repeat washout. Risks and benefits of surgery discussed and appropriate consent obtained. Surgeon: Andrea Pascal Click Yes if Unassisted: Yes Anesthesia Type: General Operative Notes Findings: None Closure Type: not applicable Specimen(s): other (Culture) Estimated Blood Loss (mL): 5 Procedure in detail: Patient brought to the operating room and intubated on the stretcher. She was rolled over to the well-padded prone position on the Arnel table. The old wound VAC was removed. The back was prepped and draped in standard sterile fashion. Time-out was performed. Antibiotics were held for cultures. We used a Collins to sharply debride the soft tissue down to and including the fascia. Everything looked fairly pink and healthy except for 1 small pocket in the right inferior aspect of the wound. This was debrided with a Collnis. I then used a scalpel to remove the yellow fibrinous tissue around the edges of the skin. The wound was then copiously irrigated. We used a small wound VAC sponge. Half of it was used to fill the void and then the other half was laid horizontally on top of this for our drain to lay on. We had a watertight seal. She was hooked up to the wound VAC to 125 mm mercury low intermittent suction. She was then rolled over, extubated, brought to recovery with no complications. Complications: none Post-operative Condition: stable Disposition: PACU Plan for aftercare: Inpatient. Continue on Rocephin which covers all 3 bacteria which have grown from her wound. Plan to return to the operating room in 2 days for repeat debridement.
[2020-01-20] MEDS: SODIUM CHLORIDE 0.9% 1,000 ML, GENTAMICIN 80 MG IRR (08:40)
[2020-01-20] MEDS: CEFTRIAXONE 2 GM/50 ML FROZ.PIGGY IV (08:45)
--- NOTE | 2020-01-20 08:53 | PT-IP ANOTE ---
Pt unavailable, not in room. Per yesterday, was scheduled for I&D today. Con't efforts next date, possible reassessment.
--- NOTE | 2020-01-20 09:38 | SUR.PHASEI ---
report to Uri. Pt transferred in stable condition via bed back to room 216. Monitoring resumed by EVERETT Grewal
--- NOTE | 2020-01-20 09:44 | PC.NURSE ---
Patient back from surgery to room at 925, awake but reports she is still sleepy, denies pain. Wound vac in place at 125mm low intermittent therapy. VSS. Continue to follow.
[2020-01-20] MEDS: DOCUSATE 100 MG CAPSULE PO ×2 (11:00→20:19)
[2020-01-20] MEDS: ASPIRIN EC 81 MG TABLET PO (11:01)
[2020-01-20] MEDS: buPROPion XL 150 MG TAB 300 MG PO (11:01)
[2020-01-20] MEDS: polyethylene glycoL 3350 17 GM POWD.PACK PO (11:01)
[2020-01-20] MEDS: VERAPAMIL 80 MG TABLET PO ×2 (11:02→20:19)
[2020-01-20] MEDS: METFORMIN HCL 500 MG TABLET 1000 MG PO ×2 (11:03→20:20)
[2020-01-20] MEDS: OXYCODONE IR 5 MG TABLET PO ×2 (11:03→17:46)
--- NOTE | 2020-01-20 11:16 | PM.PN.1 ---
Subjective Subjective Date Patient Seen: 01/18/20 Time Patient Seen: 09:00 Interval history: Pain is controlled. Wound vac in place, holding suction. Position dependent for suction Exam Vital Signs (past 8 hours): - 01/20/20 03:53 01/20/20 07:30 01/20/20 07:42 Temperature 98.1 F 97.6 F Pulse Rate 86 91 H 96 H Respiratory Rate 17 18 17 Blood Pressure 141/73 H 161/80 H 166/73 H Pulse Oximetry 95 97 94 01/20/20 08:45 01/20/20 08:50 01/20/20 08:55 Temperature 97.2 F L Pulse Rate 92 H 89 87 Respiratory Rate 12 10 L 9 L Blood Pressure 98/41 L 109/54 L 123/53 L Pulse Oximetry 92 90 L 92 01/20/20 09:00 01/20/20 09:05 01/20/20 09:10 Temperature Pulse Rate 86 86 87 Respiratory Rate 10 L 11 L 8 L Blood Pressure 130/60 126/86 135/64 Pulse Oximetry 93 96 91 01/20/20 10:57 Temperature Pulse Rate 82 Respiratory Rate Blood Pressure 154/77 H Pulse Oximetry 100 Oxygen Delivery Method Room Air Oxygen Flow Rate 2 Narrative Exam Narrative: Wound vac in place, holding suction Objective Labs Result Diagrams: 01/18/20 05:38 01/18/20 05:38 Assessment & Plan Assessment & Plan narrative: Plan is for repeat I&D. Likely return to the operating room Tuesday for repeat washout. Patient is stable, wound vac working. Quality VTE Deep Vein Thrombosis/Pulmonary Embolism Present on Admission: No
[2020-01-20] MEDS: GABAPENTIN 600 MG TABLET PO (17:46)
[2020-01-20] MEDS: ACETAMINOPHEN 325 MG TABLET 650 MG PO (17:46)
--- NOTE | 2020-01-20 18:32 | PC.NURSE ---
Addendum entered by Jennifer Coronado R.N. 01/20/20 22:47: Rouses easily to voice for repositioning in bed. Wound vac continues without difficulty set @ 125 mm/Hg. Repositioned onto left side with pillow to support. CPAP in place. Addendum entered by Jennifer Coronado R.N. 01/20/20 21:23: Discussion re pt's blood sugar this evening with pt. Discussion with pt re metformin use at home and blood sugar monitoring. Reviewed pt's evening shift blood sugars with pt and pt states will take metformin as ordered. Declined offer for evening snack or supplement. Cpap in place per pt request. Original Note: Pt mostly sleeping, but rouses easily to voice. 02 1L per nc sats 99%. Refuses cpap at this hour. Admits to sharp pain to back 5/10. Medicated as per emar. Pt is able to turn self to right side with reminder re log rolling technique to visualize wound vac dressing. This is intact with suction set as per MD; 125 mm/Hg. Intermittent drainage of serousang fluid in tubing. Dressing to lower back is well adherred. Bedpan use. BL calf scd's in place. Admits to sensation to BL LE's.
[2020-01-20] MEDS: FENOFIBRATE 48 MG TABLET PO (20:19)
[2020-01-20] MEDS: SENNOSIDES 8.6 MG TABLET 17.2 MG PO (20:20)
[2020-01-20] MEDS: TRAZODONE 50 MG TABLET 150 MG PO (20:24)
[2020-01-21] VITALS (9 sets, daily range): BP systolic 117–161; BP diastolic 59–82; PULSE 77–90; RESP 16–18; TEMP 36.2–36.7; O2SAT 90–95
[2020-01-21] MEDS: OXYCODONE IR 5 MG TABLET PO ×5 (00:19→23:18)
--- NOTE | 2020-01-21 00:31 | PC.NURSE ---
Addendum entered by Maria Alejandra Higgins R.N. 01/21/20 04:07: States pain is again 5/10; medicated with Oxycodone and repositioned. Original Note: Patient is alert and oriented. Breath sounds diminished at bases but otherwise CTA. On home CPAP with sat of 93%. HRR. Denies nausea. BT present and abdomen is soft. Is passing flatus but has not had BM since 01/14; patient states she has received meds for constipation. Is needing assistance to move in bed so is being repositioned q2h. Wound vac intact to 125mm Hg continuous suction. Skin under breasts/abdominal folds is pink, moist and peeling. Open slit to coccyx. Pressure injury to right medial/posterior thigh is covered with ABD to protect skin. Wearing bilateral calf SCD's. Has been using bedpan for elimination; denies dysuria, frequency or urgency. States back pain is currently 5/10; medicated with Oxycodone. Fall risk score is high and bed alarm is activated.
[2020-01-21] MEDS: LACTATED RINGERS 1,000 ML 125 ML IV (02:24)
[2020-01-21] MEDS: polyethylene glycoL 3350 17 GM POWD.PACK PO (08:28)
[2020-01-21] MEDS: ASPIRIN EC 81 MG TABLET PO (08:28)
[2020-01-21] MEDS: DOCUSATE 100 MG CAPSULE PO ×2 (08:28→20:46)
[2020-01-21] MEDS: METFORMIN HCL 500 MG TABLET 1000 MG PO ×2 (08:28→20:45)
[2020-01-21] MEDS: VERAPAMIL 80 MG TABLET PO ×2 (08:29→20:46)
[2020-01-21] MEDS: buPROPion XL 150 MG TAB 300 MG PO (08:32)
--- NOTE | 2020-01-21 09:00 | PM.PN.1 ---
Subjective Subjective Date Patient Seen: 01/21/20 Time Patient Seen: 09:01 Interval history: Pain controlled. Complaining of some constipation. She has been up with PT yesterday. Has not yet been up with PT today. Works on transfers in room and sitting in chair. Wound vac holding suction. Exam Vital Signs (past 8 hours): - 01/21/20 04:00 01/21/20 08:00 Temperature 97.1 F L 97.3 F L Pulse Rate 78 90 Respiratory Rate 18 18 Blood Pressure 117/68 143/68 H Pulse Oximetry 93 90 L Oxygen Delivery Method CPAP Oxygen Flow Rate 0 Narrative Exam Narrative: Sensation intact to bilateral feet. 5/5 DF, PF BLE. dressings c/d/i. Wound vac holding suction. Const Other: AAOx3, pleasant Objective Labs Result Diagrams: 01/18/20 05:38 01/18/20 05:38 Assessment & Plan Assessment & Plan narrative: Patient is a 69 yo female with post-operative wound infection. She has morbid obesity with poor wound healing. Plan is for return to OR tomorrow for repeat irrigation and debridement. NPO after midnight. Ducolax suppository ahs been ordered for constipation. Continue ceftriaxone. Time Spent With Patient Time with patient: 15-24 minutes Quality VTE Deep Vein Thrombosis/Pulmonary Embolism Present on Admission: No
[2020-01-21] MEDS: CEFTRIAXONE 2 GM/50 ML FROZ.PIGGY IV (09:36)
--- NOTE | 2020-01-21 10:25 | PT.IPTN ---
Current Diagnoses Disruption of external operation (surgical) wound, not elsewhere classified, initial encounter (01/17/20) Arthrodesis status (01/17/20) Surgery Performed Operation Date: 01/17/20 09:45 Actual Procedures p Incision and Drainage Wound/Spine, Lumbar - Andrea Pascal MD Operation Date: 01/20/20 07:45 Actual Procedures p Incision and Drainage Wound/Spine - Andrea Pascal MD Operation Date: 01/22/20 10:00 <No data on this case meets the specified criteria> Physical Therapy Treatment Note M2 PT-IP Current Condition Start: 01/18/20 08:21 Freq: NEEDED Status: Active Protocol: Document 01/18/20 10:54 AW (Rec: 01/18/20 11:46 AW [id number]) Physical Therapy Current Condition Current Condition Evaluation Date 01/18/20 Treatment Diagnosis s/p lumbar wound I&D Onset Date 01/17/20 Precautions Lumbar Precautions Log Roll,No Twisting,Limit Bending,Lifting Restriction of 10 lbs,Gait Belt above Incisional Area M3 PT-IP Subjective Start: 01/18/20 08:21 Freq: NEEDED Status: Active Protocol: Document 01/21/20 10:25 AB (Rec: 01/21/20 13:37 AB [id number]) Subjective Physical Therapy Visit Type Type Treatment Note Visit Start Time 10:25 Visit Stop Time 10:53 Total Visit Minutes 28 Number of PEER SPECIALIST Visits 0 Physical Therapy Visit Comments Patient Comments pt with NAC and requesting to use the commode Therapy Pain Assessment Pain When Pain Assessed At Rest Pain Present Pain Present Pain Reported Location lower back Intensity 5 Scale Used Numeric (1 - 10) Pain Behaviors Guarding Pain Management Techniques Modification of Treatment, Timing of Activity with Medications M4 PT-IP Mobility and Gait Start: 01/18/20 08:21 Freq: NEEDED Status: Active Protocol: Document 01/21/20 10:25 AB (Rec: 01/21/20 13:37 AB [id number]) PT-Transfer Assessment Sit to and From Stand Sit to and from Stand Moderate Assistance,Maximum Assistance,1 Person Assistance ,Use of Upper Extremities Equipment Transfer Assistive Device Gait Belt,Front Wheeled Walker Orthotic/Prosthetic Devices or Brace: No Transfers Transfer Destination Chair,Bedside Commode Transfer Technique Stand Step Pivot Transfer Ability Level of Assist Moderate Assistance,Maximum Assistance,1 Person Assistance ,Use of Upper Extremities Comments Mobility Comments pt completed sit to stand from EOB modA to max A and cues. completed step transfer using FWW bed to bedside commode mod to max A and cues using FWW. completed sit to stand from bedside commode mod to max A and was able to maintain standing using FWW for support mod A while NAC assisted with hygiene care. Pt ambulated in room ~ 15 ft using FWW mod to max A and stated that she has to sit down. positioned bedside commode next to pt to sit on and pt rested. ambulated again to chair afterwards using FWW mod to max A and cues. positioned pt on chair. call light and table placed within reach. Gait Assessment Gait Gait Assistance Required: Moderate Assistance,Maximum Assistance,1 Person Assist Distance (Feet) 15 Able to Maintain Weight Bearing Status Yes During Gait Assistive Devices Assistive Device Gait Belt,Front Wheeled Walker Orthotic/Prosthetic Devices or Brace: No Gait Deviations General Gait Pattern Antalgic,Decreased Stride Length,Decreased Feet Clearance,Step-to Gait Factors Limiting Gait Function Factors Limiting Gait Function Decreased Activity Tolerance, Decreased Strength,Pain,Poor Balance,Poor Safety Awareness Comments Gait Comments pls refer to mobility section for details. pt presents with unsteady gait and unable to tolerate much ambulation. M5 PT-IP Objective Assessments Start: 01/18/20 08:21 Freq: NEEDED Status: Active Protocol: Document 01/18/20 10:54 AW (Rec: 01/18/20 11:46 AW [id number]) Orientation Orientation/Cognition Level of Alertness Alert Orientation Name,Day of Week,Place, Situation Language Function Ability Hard of Hearing Safety Awareness Decreased Safety Awareness Memory Description Short Term Impaired Gross Range of Motion Lower Extremity ROM Assessment Within Functional Limits Strength Lower Extremity Strength Assessment Bilaterally Impaired Comments Strength Comments Grossly 3/5 BLE Sensation Assessment Sensation Gross Sensation Right LE Impaired,Left LE Impaired Light Touch Impaired Proprioception (Position) Impaired Sensation Description Numbness Comments Sensation Comments neuropathy affects bilateral feet Muscle Tone Muscle Tone WNL Yes M6 PT-IP Treatment Start: 01/18/20 08:21 Freq: NEEDED Status: Active Protocol: Document 01/21/20 10:25 AB (Rec: 01/21/20 13:37 AB [id number]) Physical Therapy Treatment Education Education Provided Safety M7 PT-IP Assessment and Plan Start: 01/18/20 08:21 Freq: NEEDED Status: Active Protocol: Document 01/21/20 10:25 AB (Rec: 01/21/20 13:37 AB [id number]) PT Summary Assessment and Plan Potential Rehabilitation Potential Good Summary Impairments Pain,ROM,Strength,Balance, Sensation,Bed Mobility, Transfers,Gait,Activity Tolerance Progress Towards Goals Slow Progress due to Medical Issues,Slow Progress due to Activity Tolerance Assessment Summary pt improving slowly with mobility but continues to have decrease activity tolerance affecting independence. pt plans to have another wound I& D tomorrow. pt will require SNF rehab prior to d/c home. Goals Bed Mobility Goal Contact Guard Assistance Transfer Goal Minimal Assistance,Front Wheeled Walker Gait Goal Minimal Assistance,Front Wheel Walker Gait Distance 50 Days to Meet Goals 10 Frequency of Treatment Frequency Of Treatment Twice a Day Treatment Plan Physical Therapy Treatment Plan Bed Mobility Training,Transfer Training,Gait Training, Therapeutic Exercise,Balance Retraining,Post Op Education, Discharge Planning,Hot or Cold Pack,Neuromuscular Re-ed Recommendations To Nursing Amount of Assist Needed 2 Person Assist Discharge Recommendations PT Discharge Recommendations SNF Rehab Transportation Needs at Discharge Wheelchair/Cabulance
--- NOTE | 2020-01-21 11:18 | CM.DANOTE ---
DCP/Assessment: Reviewed chart. Per notes, patient scheduled for I&D tomorrow 01-22-20. Current plan is for patient to discharge back to [facility] when medically stable. Spoke with Christie today and she reports that they can accept when medically stable but patient will need updated COVID test (within 72hrs of d/c). P: Notified Charge/RN that COVID test will need to be completed prior to discharge. KRISTI Mckeon Discharge Planning/Care Management CM Discharge Assessment Start: 01/21/20 11:15 Freq: Status: Active Protocol: Document 01/21/20 11:16 KJS (Rec: 01/21/20 11:18 KJS [id number]) Discharge Planning Assessment Assigned Line Inspector KRISTI Mckeon Advance Directives? No Advance Directives on File Yes History Provided By Patient,Medical Record Prior Living Arrangements Skilled Nurse Facility Household Members none Facility Name Admitted From: [facility] Willing to Return to Facility? Yes Comment uses [facility] Patient/Family Preference Shelter Facility Comment pt is on Meals on Wheels program Comment no actual barriers noted: just needs good coordination of services. Pt is a very able historian of her [facility] care plan Discharge Plan Shelter Facility Transportation Arrangement daughter sade to pickler helper patient todat ar 1500. Additional Comment Patient states she has notified [facility] worker of her discharge plans. If patient plan is home with home health will need: resume HH orders : Has signed face to face form been and followup with [facility] completed? If patient plan is SNF: Has PASSR been No: Awaiting acceptance from completed? facility.
--- NOTE | 2020-01-21 11:50 | OT.IP.TRT ---
Current Diagnoses Disruption of external operation (surgical) wound, not elsewhere classified, initial encounter (01/17/20) Arthrodesis status (01/17/20) Surgery Performed Operation Date: 01/17/20 09:45 Actual Procedures p Incision and Drainage Wound/Spine, Lumbar - Andrea Pascal MD Operation Date: 01/20/20 07:45 Actual Procedures p Incision and Drainage Wound/Spine - Andrea Pascal MD Operation Date: 01/22/20 10:00 <No data on this case meets the specified criteria> Occupational Therapy Treatment Note M2 OT-IP Current Condition Start: 01/18/20 14:43 Freq: Status: Active Protocol: Document 01/18/20 14:44 CGR (Rec: 01/18/20 14:59 CGR [id number]) Occupational Therapy Current Condition Current Condition Evaluation Date 01/18/20 Treatment Diagnosis Back wound I & D Diagnosis Onset Date 01/17/20 M3 OT- IP Subjective and Pain Start: 01/18/20 14:43 Freq: Status: Active Protocol: Document 01/21/20 13:07 CCC (Rec: 01/21/20 13:23 CCC [email or web address]) OT- Subjective Occupational Therapy Visit Type Type Treatment Note Visit Start Time 10:35 Visit Stop Time 10:54 Total Visit Minutes 19 Occupational Therapy Visit Comments Patient Comments Pt agreeable to get up to the recliner with OT and PT. Pt already sitting on the edge of the bed when arrived to the room. To suppose to have another sx tomorrow. Patient/Caregiver Goals To get be independent again and be able to care for herself. OT Pain Assessment Pain When Pain Assessed At Rest Pain Present Pain Present Pain Reported Location lower back Intensity 5 Scale Used Numeric (1 - 10) Management Techniques Modification of Treatment,Re- positioning,Timing of Activity with Medications M4 OT- IP ADL's Start: 01/18/20 14:43 Freq: Status: Active Protocol: Document 01/21/20 13:07 CCC (Rec: 01/21/20 13:23 CCC [id number]) OT ADL-Grooming General Evaluation Grooming Ability Standby Assistance Comments OT Grooming Comments Pt states already completed earlier after set-up OT ADL-Dressing Comments OT Dressing Comments Not performed OT ADL-Toileting Comments OT Toileting Comments Not needing to go. OT ADL-Bathing Comments OT Bathing Comments Not performed in this session. M5 OT- IP IADL's Start: 01/18/20 14:43 Freq: Status: Active Protocol: Document 01/18/20 14:44 CGR (Rec: 01/18/20 14:59 CGR [id number]) OT-Instrumental Activities of Daily Living Deficits IADL Deficits Identified Deficits Home Safety Awareness Awareness of Need for Assistance at Home Decreased Awareness Ability to Problem Solve Emergency Able to Problem Solve Situations Medication Management Medication Management Caregiver Administers Money Management Money Management Caregiver Provides Assistance Meal Preparation Meal Preparation Caregiver Provides Assist Pullman Clerk Pullman Clerk Caregiver Provides Assist Driving Driving Comments Pt does not drive. M6 OT- IP Functional Cognition Start: 01/18/20 14:43 Freq: Status: Active Protocol: Document 01/21/20 13:07 CCC (Rec: 01/21/20 13:23 [facility] [id number]) Cognitive Factors Limiting Selfcare Function Cognitive Comments Cognitive Assessment Comments Pt at baseline and has good awareness for all back precautions needs. M7 OT- IP Mobility and Balance Start: 01/18/20 14:43 Freq: Status: Active Protocol: Document 01/21/20 13:07 [facility] (Rec: 01/21/20 13:23 [facility] [id number]) OT-Transfer Assessment Sit to and From Stand Sit to and from Stand Moderate Assistance,1 Person Assistance Transfers Transfer Ability Moderate Assistance,1 Person Assistance Technique Transfer Destination Chair Devices Transfer Assistive Devices Gait Belt,Front Wheeled Walker Comments Mobility Comments MODA to stand and MODA x 1 to walk with FWW and another person to help with holding wound vac and moving cords. OT- Balance Assessment Sitting Balance and Reactions Static Sitting Balance Ability Good Dynamic Sitting Balance Ability Fair Comments Other Balance Tests/Deviations/Treatment Pt doing better with sitting : balance and able to sit at the edge of the bed without support today. M8 OT- IP Objective Assessments Start: 01/18/20 14:43 Freq: Status: Active Protocol: Document 01/18/20 14:44 CGR (Rec: 01/18/20 14:59 CGR [id number]) OT Gross Range of Motion Upper Extremity Range of Motion Assessment Within Functional Limits OT Strength Upper Extremity Strength Assessment Within Functional Limits Comments Strength Comments 4/5 OT- Coordination Assessment Upper Extremity Finger to Nose Test Within Functional Limits Finger Tapping Test Within Functional Limits OT-Muscle Tone Assessment Muscle Tone WNL Yes OT Sensation Assessment Edema Edema Absent M9 OT- IP Assessment and Plan Start: 01/18/20 14:43 Freq: Status: Active Protocol: Document 01/21/20 13:07 [facility] (Rec: 01/21/20 13:23 [facility] [id number]) OT Summary Assessment and Plan Potential Rehabilitation Potential Good Analytic Complexity at Evaluation Moderate Summary OT Impairments Pain,Strength,Balance, Functional Mobility,Dressing, Toileting,Bathing,Toilet Transfers,Shower Transfers, Activity Tolerance Progress Towards Goals Slow Progress due to Pain,Slow Progress due to Medical Issues Assessment Summary Pt looking to have another surgery tomorrow. Once medically stable , pt will still benefit skilled rehab to improve her independence with ADl's, functional mobility and activity tolerance. Goals Grooming Goal Independent Dressing Goal Independent,Iap Displays Analyst,Sock Aid Toileting Goal Independent Bathing Goal Independent Toilet Transfer Goal Independent Shower Transfer Goal Independent Days to Meet Goals 19 Frequency of Treatment Frequency Of Treatment Once a Day Treatment Plan OT Treatment Plan ADL Training,Functional Mobility,Patient/Family Education,Discharge Planning Other Treatment Recommendations and Next ADLs at sink Treatment Focus Discharge Recommendations OT Discharge Recommendations SNF Rehab Home Equipment Needs TBD Transportation Needs at Discharge Private Vehicle
--- NOTE | 2020-01-21 12:47 | PT.IPTN ---
Current Diagnoses Disruption of external operation (surgical) wound, not elsewhere classified, initial encounter (01/17/20) Arthrodesis status (01/17/20) Surgery Performed Operation Date: 01/17/20 09:45 Actual Procedures p Incision and Drainage Wound/Spine, Lumbar - Andrea Pascal MD Operation Date: 01/20/20 07:45 Actual Procedures p Incision and Drainage Wound/Spine - Andrea Pascal MD Operation Date: 01/22/20 10:00 <No data on this case meets the specified criteria> Physical Therapy Treatment Note M2 PT-IP Current Condition Start: 01/18/20 08:21 Freq: NEEDED Status: Active Protocol: Document 01/18/20 10:54 AW (Rec: 01/18/20 11:46 AW [id number]) Physical Therapy Current Condition Current Condition Evaluation Date 01/18/20 Treatment Diagnosis s/p lumbar wound I&D Onset Date 01/17/20 Precautions Lumbar Precautions Log Roll,No Twisting,Limit Bending,Lifting Restriction of 10 lbs,Gait Belt above Incisional Area M3 PT-IP Subjective Start: 01/18/20 08:21 Freq: NEEDED Status: Active Protocol: Document 01/21/20 12:47 AB (Rec: 01/21/20 13:46 AB [id number]) Subjective Physical Therapy Visit Type Type Treatment Note Visit Start Time 12:47 Visit Stop Time 13:07 Total Visit Minutes 20 Number of ARTIFICIAL STONE APPLICATOR Visits 0 Physical Therapy Visit Comments Patient Comments pt requesting to go back to bed Therapy Pain Assessment Pain When Pain Assessed At Rest Pain Present Pain Present Pain Reported Location lower back Intensity 5 Pain Management Techniques Timing of Activity with Medications M4 PT-IP Mobility and Gait Start: 01/18/20 08:21 Freq: NEEDED Status: Active Protocol: Document 01/21/20 12:47 AB (Rec: 01/21/20 13:46 AB [id number]) PT-Bed Mobility Assessment Sit to Supine Sit to Supine Maximum Assistance,1 Person Assistance,Bedrails Scooting Scooting to Edge of Bed Maximum Assistance PT-Transfer Assessment Sit to and From Stand Sit to and from Stand Moderate Assistance,Maximum Assistance,1 Person Assistance ,Use of Upper Extremities Equipment Transfer Assistive Device Bed Rail,Front Wheeled Walker Orthotic/Prosthetic Devices or Brace: No Transfers Transfer Destination Bedside Commode Transfer Technique ambulated using FWW Transfer Ability Level of Assist Moderate Assistance,Maximum Assistance,1 Person Assistance ,Use of Upper Extremities Comments Mobility Comments pt sitting on chair and requesting to go back to bed but has to use the commode first. completed sit to stand from chair mod to max A and max cues. ambulated towards the commode using fWW ~ 10 ft mod to max A and max cues with (+) L knee buckling requiring max A to rebalance. completed sit to stand from the bedside commode mod to max A and cues and was ablet o maintain standing mod A using FWW for support while NAC assisted with hygiene care and brief management. pt ambulate towards the bed using FWW mod to max A. completed sit to supine max A for LE elevation. pt used bed rail to assist. positioned pt on bed. call light and table placed within reach. Gait Assessment Gait Gait Assistance Required: Moderate Assistance,Maximum Assistance,1 Person Assist Distance (Feet) 10 Able to Maintain Weight Bearing Status Yes During Gait Assistive Devices Assistive Device Gait Belt,Front Wheeled Walker Orthotic/Prosthetic Devices or Brace: No Gait Deviations General Gait Pattern Antalgic,Decreased Stride Length,Decreased Feet Clearance,Step-to Gait Factors Limiting Gait Function Factors Limiting Gait Function Decreased Activity Tolerance, Decreased Strength,Limited Range of Motion,Pain,Poor Balance,Poor Safety Awareness Comments Gait Comments pls refer to mobility section for details M5 PT-IP Objective Assessments Start: 01/18/20 08:21 Freq: NEEDED Status: Active Protocol: Document 01/18/20 10:54 AW (Rec: 01/18/20 11:46 AW [id number]) Orientation Orientation/Cognition Level of Alertness Alert Orientation Name,Day of Week,Place, Situation Language Function Ability Hard of Hearing Safety Awareness Decreased Safety Awareness Memory Description Short Term Impaired Gross Range of Motion Lower Extremity ROM Assessment Within Functional Limits Strength Lower Extremity Strength Assessment Bilaterally Impaired Comments Strength Comments Grossly 3/5 BLE Sensation Assessment Sensation Gross Sensation Right LE Impaired,Left LE Impaired Light Touch Impaired Proprioception (Position) Impaired Sensation Description Numbness Comments Sensation Comments neuropathy affects bilateral feet Muscle Tone Muscle Tone WNL Yes M6 PT-IP Treatment Start: 01/18/20 08:21 Freq: NEEDED Status: Active Protocol: Document 01/21/20 12:47 AB (Rec: 01/21/20 13:46 AB [id number]) Physical Therapy Treatment Education Education Provided Precautions,Safety M7 PT-IP Assessment and Plan Start: 01/18/20 08:21 Freq: NEEDED Status: Active Protocol: Document 01/21/20 12:47 AB (Rec: 01/21/20 13:46 AB [id number]) PT Summary Assessment and Plan Potential Rehabilitation Potential Good Summary Impairments Pain,ROM,Strength,Balance, Coordination,Sensation,Bed Mobility,Transfers,Gait, Activity Tolerance Progress Towards Goals Slow Progress due to Medical Issues,Slow Progress due to Activity Tolerance Assessment Summary pt continues to require mod to max A with mobility and with (+) L knee buckling with ambulation/transfer this afternoon. pt plans to have another I&D of her wound tomorrow. pt will require SNF rehab to improve strength, activity tolerance and mobility independence. Goals Bed Mobility Goal Contact Guard Assistance Transfer Goal Minimal Assistance,Front Wheeled Walker Gait Goal Minimal Assistance,Front Wheel Walker Gait Distance 50 Days to Meet Goals 10 Frequency of Treatment Frequency Of Treatment Twice a Day Treatment Plan Physical Therapy Treatment Plan Bed Mobility Training,Transfer Training,Gait Training, Therapeutic Exercise,Balance Retraining,Post Op Education, Discharge Planning,Hot or Cold Pack,Neuromuscular Re-ed Recommendations To Nursing Amount of Assist Needed 2 Person Assist Discharge Recommendations PT Discharge Recommendations SNF Rehab Transportation Needs at Discharge Wheelchair/Cabulance
[2020-01-21] MEDS: SODIUM CHLORIDE 0.9% FLUSH 10 ML IV ×2 (13:11→22:04)
[2020-01-21] MEDS: SENNOSIDES 8.6 MG TABLET 17.2 MG PO (20:45)
[2020-01-21] MEDS: TRAZODONE 50 MG TABLET 150 MG PO (20:46)
[2020-01-21] MEDS: FENOFIBRATE 48 MG TABLET PO (20:48)
[2020-01-22] VITALS (22 sets, daily range): BP systolic 117–161; BP diastolic 58–85; PULSE 76–87; RESP 7–18; TEMP 36–37; O2SAT 88–100; BMI 41.6
[2020-01-22] MEDS: SODIUM CHLORIDE 0.9% FLUSH 10 ML IV (06:20)
[2020-01-22] MEDS: LACTATED RINGERS 1,000 ML 42 ML IV (08:55)
--- NOTE | 2020-01-22 09:09 | SUR.HOLD ---
Pt brought down to [facility]PD, awaiitng surgery, call light in reach, bed low and locked. States tolerating pain.
[2020-01-22] MEDS: CEFTRIAXONE 2 GM/50 ML FROZ.PIGGY IV (09:58)
--- NOTE | 2020-01-22 10:06 | OT.IPNOTE ---
Hold pt from OT treatment as having surgery today, to check on the pt tomorrow.
--- NOTE | 2020-01-22 10:37 | SUR.OPER ---
Prone on spine table, head in foam head support, padded chest and pelvic supports, gel pad at knees, lower legs supported by pillows; nipples, genitalia and toes free of pressure, arms secured on foam padded arm boards at <90 degrees abduction. gel pads for bilateral abdomen. Tape over blanket at thigh secured to table.
--- NOTE | 2020-01-22 10:42 | PC.NURSE ---
Addendum entered by Kaya Cunningham R.N. 01/22/20 14:51: Patient given 1 oxycodone and now sleeping. Addendum entered by Kaya Cunningham R.N. 01/22/20 12:16: Patient back from surgery, she is lying supine with wound vac in place at 125...ss bloody drainage going into chamber. She is groggy. BS 84 down in recovery. Original Note: Patients has a wound vac to suction at 125, dressing to mid/lower back is cdi. Patient is able to move side to side in bed, and is a 1-2 person assist with walker and using the bathroom. She went to surgery at 0830 for another I&D this morning. IV antibiotic sent with patient. BS 94, will give patient her medications when she comes back up to the floor.
[2020-01-22] MEDS: SODIUM CHLORIDE 0.9% IRR (10:43)
[2020-01-22] MEDS: GENTAMICIN IRR (10:43)
--- NOTE | 2020-01-22 10:55 | PM.OP.1 ---
Operative Date/Time/Diagnoses Date of procedure: 01/22/20 Time of procedure: 10:55 Pre-op diagnosis: Postoperative lumbar wound infection Post-op diagnosis: same Procedure & Clinicians Procedure: Incisional debridement of postoperative lumbar wound infection 6 x 4 cm superficial to fascia. Change of wound VAC Same procedure as scheduled: Yes Indications: 69-year-old female with postoperative wound infection. She has had multiple debridements and needed a repeat debridement and wound VAC change. Risks and benefits of surgery discussed appropriate consent obtained. Surgeon: Andrea Pascal Click Yes if Unassisted: Yes Anesthesia Type: General Operative Notes Findings: None Closure Type: not applicable Specimen(s): none sent Estimated Blood Loss (mL): 2 Procedure in detail: Patient brought to the operating room and intubated on the stretcher. She was rolled over the well-padded prone position on the Arnel table. She had just received her Rocephin. Time-out was performed. The old wound VAC was removed. The back was prepped and draped in the standard sterile fashion. The wound looked very good at this time. The scalpel was used to debride some of the fibrin as tissue right up at the skin edges and Collins was used to sharply debride some of the superficial tissue down to the lumbar fascia. There did not appear to be necrotic tissue. The wound was then copiously irrigated. I did not think we would be able to get the edges together in the central area so I placed the 1st half of a small wound VAC sponge in the wound and then placed the 1st layer of dressing on top of the skin. Small area was opened and the remainder of the sponge came out through this and then we hooked up the suction to the part outside of the skin. This helped to pull the central area together it instead of having the sponge come out at this level. We placed the remainder of the dressings on and had a watertight seal. This was hooked up the wound VAC at low suction. She was then rolled over, extubated, brought to recovery with no complications. Complications: none Post-operative Condition: stable Disposition: PACU Plan for aftercare: Plan to return in 2 days for wound VAC change and possible closure.
[2020-01-22] MEDS: fentaNYL 100 MCG/2 ML INJ IV (11:22)
--- NOTE | 2020-01-22 11:43 | SUR.PHASEI ---
Spoke with Dr. Pimentel about pain meds, medicated with 25mcg of fentanyl. Pt felt better after dose, report called to mel Kirkpatrick done per her request. Transported to room on 2/l n/c.
--- NOTE | 2020-01-22 12:11 | SUR.PHASEI ---
Pt left with EVERETT Kirkpatrick scd's on bed lowerd and locked, call beel near by - pt aware.
[2020-01-22] MEDS: polyethylene glycoL 3350 17 GM POWD.PACK PO (12:49)
[2020-01-22] MEDS: buPROPion XL 150 MG TAB 300 MG PO (12:50)
[2020-01-22] MEDS: GABAPENTIN 600 MG TABLET PO (12:50)
[2020-01-22] MEDS: ASPIRIN EC 81 MG TABLET PO (12:50)
--- NOTE | 2020-01-22 12:59 | PT-IP ANOTE ---
pt is going to have another I&D on her back this morning. will f/u.
[2020-01-22] MEDS: LACTATED RINGERS 1,000 ML 125 ML IV ×2 (13:04→23:51)
[2020-01-22] MEDS: VERAPAMIL 80 MG TABLET PO ×2 (13:04→19:59)
[2020-01-22] MEDS: OXYCODONE IR 5 MG TABLET PO ×2 (13:43→20:00)
--- NOTE | 2020-01-22 14:30 | PT-IP ANOTE ---
pt s/p I&D of lumbar wound this morning and back to acute floor this afternoon. checked on pt and pt refused PT. stated that she will do it tomorrow and just wants to rest today and that she is going for another surgery on .
[2020-01-22] MEDS: FENOFIBRATE 48 MG TABLET PO (20:00)
[2020-01-22] MEDS: TRAZODONE 50 MG TABLET 150 MG PO (20:00)
[2020-01-22] MEDS: SENNOSIDES 8.6 MG TABLET 17.2 MG PO (20:01)
[2020-01-22] MEDS: DOCUSATE 100 MG CAPSULE PO (20:01)
[2020-01-22] MEDS: METFORMIN HCL 500 MG TABLET 1000 MG PO (23:52)
[2020-01-22] MEDS: hydrOXYzine pamoate 25 MG CAPSULE PO (23:52)
[2020-01-23] VITALS (7 sets, daily range): BP systolic 116–163; BP diastolic 58–87; PULSE 78–88; RESP 16–18; TEMP 36.4–36.9; O2SAT 91–94
--- NOTE | 2020-01-23 00:08 | PC.NURSE ---
Evening Shift VSS throughout shift. Some back pain, controlled with meds. Pt. declines to get OOB today post-operatively; says she will work with PT tomorrow. Assisted with repositioning and use of bedpan throughout shift. 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 Wound Vac 125 mmHg throughout shift.
[2020-01-23] MEDS: OXYCODONE IR 5 MG TABLET PO ×4 (03:51→21:37)
--- NOTE | 2020-01-23 04:45 | PC.NURSE ---
Wound to the right inner thigh is unapproximated, open and has a small amount of sanguinous drainage present. Wound cleansed with normal saline, patted dry with four x four and Allevyn dressing applied.
[2020-01-23 06:16] LABS: Add Manual Diff / Slide Review NO; Basophils Absolute Auto 0 /uL (0-100); Basophils Percent Auto 0.6 % (0-2); Eosinophils Absolute Auto 300 /uL (0-450); Eosinophils Percent Auto 7.6 % (2-4); Hematocrit 27.5 % (36-46); Hemoglobin 9.1 g/dL (12.0-16.0); Lymphocytes Absolute Auto 1300 /uL (1100-4500); Lymphocytes Percent Auto 31.1 % (25-40); Mean Corpuscular Hemoglobin 29.9 PG (26-34); Mean Corpuscular Volume 90.8 fL (80-100); Monocytes Absolute Auto 500 /uL (0-900); Monocytes Percent Auto 12.7 % (3-14); Neutrophils Absolute Auto 2000 /uL (1500-7000); Platelet Count 260 X10^3/uL (150-400); Red Blood Cell Count 3.03 X10^6/uL (4.0-5.2); Red Cell Distribution Width 15.5 % (11.6-14.8); White Blood Cell Count 4.1 X10^3/uL (4.5-11.0)
[2020-01-23 06:28] LABS: BUN Creatinine Ratio 18.5 (6-22); Blood Urea Nitrogen 12 mg/dL (7-17); C-Reactive Protein Quant 1.1 mg/dL (<1.0); Calcium 9.1 mg/dL (8.4-10.2); Carbon Dioxide 29 mmol/L (22-32); Chloride 106 mmol/L (98-107); Estimated Glomerular Filt Rate > 60.0 mL/min (>60); Glucose 98 mg/dL (80-110); HEMOLYSIS < 15 (0-50); Potassium 3.4 mmol/L (3.4-5.1); Sodium 140 mmol/L (137-145)
[2020-01-23 06:47] LABS: Erythrocyte Sedimentation Rate 30 MM/HR (0-20)
--- NOTE | 2020-01-23 08:17 | P.PN_ITS ---
Subjective Subjective Date Patient Seen: 01/23/20 Time Patient Seen: 08:18 Interval history: Pain controlled. Went to the OR yesterday for repeat I&D and wound vac change. Has not yet been up with PT today. Works on transfers in room and sitting in chair. Wound vac holding suction, 50ml of serosang output in canister. States she has some pain and pressure in the LLE while attempting to reposition or while the limb is dependent. Exam Vital Signs (past 8 hours): - 01/23/20 00:37 01/23/20 04:47 Temperature 97.7 F 98.0 F Pulse Rate 81 82 Respiratory Rate 16 18 Blood Pressure 116/61 116/63 Pulse Oximetry 94 92 Oxygen Delivery Method Room Air,CPAP Oxygen Flow Rate 0 Narrative Exam Narrative: Wound vac holding suction. Able to wiggle toes/ankles. Sensation grossly intact to bilateral feet. Objective Labs Result Diagrams: 01/23/20 05:50 01/23/20 05:50 Labs: Laboratory Results - last 24 hr 01/23/20 01/23/20 05:50 05:50 WBC 4.1 L RBC 3.03 L Hgb 9.1 L Hct 27.5 L MCV 90.8 MCH 29.9 MCHC 33.0 RDW 15.5 H Plt Count 260 Neut % (Auto) 48.0 L Lymph % (Auto) 31.1 Christian % (Auto) 12.7 Eos % (Auto) 7.6 H Baso % (Auto) 0.6 Neut # (Auto) 2000 Lymph # (Auto) 1300 Christian # (Auto) 500 Eos # (Auto) 300 Baso # (Auto) 0 ESR 30 H Sodium 140 Potassium 3.4 Chloride 106 Carbon Dioxide 29 BUN 12 Creatinine 0.65 Estimated GFR > 60.0 BUN/Creatinine Ratio 18.5 Glucose 98 Calcium 9.1 C-Reactive Protein 1.1 H Assessment & Plan Assessment & Plan narrative: Patient is a 69 yo female with a post-op wound infection. She has undergone multiple I&Ds, most recently yesterday. Most recent washout did not identify any necrotic appearing tissue. Plan is to return to the OR tomorrow for delayed primary closure vs. repeat wound vac application. Time Spent With Patient Time with patient: less than 15 minutes Quality VTE Deep Vein Thrombosis/Pulmonary Embolism Present on Admission: No
[2020-01-23] MEDS: VERAPAMIL 80 MG TABLET PO ×2 (08:47→21:38)
[2020-01-23] MEDS: DOCUSATE 100 MG CAPSULE PO ×2 (08:57→21:39)
[2020-01-23] MEDS: ASPIRIN EC 81 MG TABLET PO (08:57)
[2020-01-23] MEDS: METFORMIN HCL 500 MG TABLET 1000 MG PO ×2 (08:58→21:39)
[2020-01-23] MEDS: polyethylene glycoL 3350 17 GM POWD.PACK PO (08:58)
[2020-01-23] MEDS: CLOPIDOGREL 75 MG TABLET PO (08:58)
[2020-01-23] MEDS: buPROPion XL 150 MG TAB 300 MG PO (09:00)
[2020-01-23] MEDS: CEFTRIAXONE 2 GM/50 ML FROZ.PIGGY IV (10:19)
--- NOTE | 2020-01-23 11:21 | OT.IP.TRT ---
Current Diagnoses Disruption of external operation (surgical) wound, not elsewhere classified, initial encounter (01/17/20) Arthrodesis status (01/17/20) Surgery Performed Operation Date: 01/17/20 09:45 Actual Procedures p Incision and Drainage Wound/Spine, Lumbar - Andrea Pascal MD Operation Date: 01/20/20 07:45 Actual Procedures p Incision and Drainage Wound/Spine - Andrea Pascal MD Operation Date: 01/22/20 10:00 Actual Procedures p Incision and Drainage Wound/Spine(Not Applicable) - Andrea Pascal MD Operation Date: 01/24/20 07:45 <No data on this case meets the specified criteria> Occupational Therapy Treatment Note M2 OT-IP Current Condition Start: 01/18/20 14:43 Freq: Status: Active Protocol: Document 01/18/20 14:44 CGR (Rec: 01/18/20 14:59 CGR [id number]) Occupational Therapy Current Condition Current Condition Evaluation Date 01/18/20 Treatment Diagnosis Back wound I & D Diagnosis Onset Date 01/17/20 M3 OT- IP Subjective and Pain Start: 01/18/20 14:43 Freq: Status: Active Protocol: Document 01/23/20 13:34 CCC (Rec: 01/23/20 13:44 [facility] [id number]) OT- Subjective Occupational Therapy Visit Type Type Treatment Note Visit Start Time 10:14 Visit Stop Time 11:21 Total Visit Minutes 67 Occupational Therapy Visit Comments Patient Comments Pt agreeable to get up. Patient/Caregiver Goals To get be independent again and be able to care for herself. OT Pain Assessment Pain When Pain Assessed During Mobility Pain Present Pain Present Pain Reported Location lower back Intensity 5 Scale Used Numeric (1 - 10) M4 OT- IP ADL's Start: 01/18/20 14:43 Freq: Status: Active Protocol: Document 01/23/20 13:34 CCC (Rec: 01/23/20 13:44 [facility] [id number]) OT ADL-Grooming General Evaluation Grooming Ability Standby Assistance Areas Needing Assistance Retrieving/Set-up of Grooming Items Comments OT Grooming Comments Assist for set-up and pt able to to all need form the bed for grooming and oral care. OT ADL-Dressing General Eval Lower Body Dressing Ability Maximum Assistance Areas Needing Assistance Socks OT ADL-Toileting General Evaluation Toileting Ability Maximum Assistance Areas Needing Assistance Perform Perineal Hygiene Devices Toileting Assistive Devices Commode Comments OT Toileting Comments Pt MAX for all percare needs. OT ADL-Bathing Comments OT Bathing Comments Not performed in this session. M5 OT- IP IADL's Start: 01/18/20 14:43 Freq: Status: Active Protocol: Document 01/18/20 14:44 CGR (Rec: 01/18/20 14:59 CGR [id number]) OT-Instrumental Activities of Daily Living Deficits IADL Deficits Identified Deficits Home Safety Awareness Awareness of Need for Assistance at Home Decreased Awareness Ability to Problem Solve Emergency Able to Problem Solve Situations Medication Management Medication Management Caregiver Administers Money Management Money Management Caregiver Provides Assistance Meal Preparation Meal Preparation Caregiver Provides Assist Ring Making Machine Operator Ring Making Machine Operator Caregiver Provides Assist Driving Driving Comments Pt does not drive. M6 OT- IP Functional Cognition Start: 01/18/20 14:43 Freq: Status: Active Protocol: Document 01/23/20 13:34 [facility] (Rec: 01/23/20 13:44 [facility] [id number]) Cognitive Factors Limiting Selfcare Function Cognitive Comments Cognitive Assessment Comments Pt at baseline and has good awareness for all back precautions needs. M7 OT- IP Mobility and Balance Start: 01/18/20 14:43 Freq: Status: Active Protocol: Document 01/23/20 13:34 [facility] (Rec: 01/23/20 13:44 [facility] [id number]) OT- Bed Mobility Assessment Supine to Sit Supine to Sit Assist Minimal Assistance Sit to Supine Sit to Supine Assist Maximum Assistance Scooting Scooting to Edge of Bed Maximum Assistance OT-Transfer Assessment Sit to and From Stand Sit to and from Stand Minimal Assistance,Moderate Assistance,1 Person Assistance ,2 Person Assistance Transfers Transfer Ability Minimal Assistance,Moderate Assistance,1 Person Assistance Technique Transfer Destination Bed,Chair Devices Transfer Assistive Devices Gait Belt,Front Wheeled Walker Comments Mobility Comments Pt doing well and able to walk transfer to C , walk to recliner and walk some more with assist. OT- Balance Assessment Sitting Balance and Reactions Static Sitting Balance Ability Good Dynamic Sitting Balance Ability Fair Standing Balance and Reactions Static Standing Balance Ability Fair Comments Other Balance Tests/Deviations/Treatment Pt able to stand from bed with : JITENDRA x1 and MODA x 2 from recliner and able to walk with JITENDRA-MODA x1 and another person for tubing/lines management needs. M8 OT- IP Objective Assessments Start: 01/18/20 14:43 Freq: Status: Active Protocol: Document 01/18/20 14:44 CGR (Rec: 01/18/20 14:59 CGR [id number]) OT Gross Range of Motion Upper Extremity Range of Motion Assessment Within Functional Limits OT Strength Upper Extremity Strength Assessment Within Functional Limits Comments Strength Comments 4/5 OT- Coordination Assessment Upper Extremity Finger to Nose Test Within Functional Limits Finger Tapping Test Within Functional Limits OT-Muscle Tone Assessment Muscle Tone WNL Yes OT Sensation Assessment Edema Edema Absent M9 OT- IP Assessment and Plan Start: 01/18/20 14:43 Freq: Status: Active Protocol: Document 01/23/20 13:34 CCC (Rec: 01/23/20 13:44 CCC [id number]) OT Summary Assessment and Plan Potential Rehabilitation Potential Good Analytic Complexity at Evaluation Moderate Summary OT Impairments Pain,Strength,Balance, Functional Mobility,Dressing, Toileting,Bathing,Toilet Transfers,Shower Transfers, Activity Tolerance Progress Towards Goals Progressing Toward Goals Assessment Summary Pt able to get particpate in grooming Goals Grooming Goal Independent Dressing Goal Independent,Culturist,Sock Aid Toileting Goal Independent Bathing Goal Independent Toilet Transfer Goal Independent Shower Transfer Goal Independent Days to Meet Goals 18 Frequency of Treatment Frequency Of Treatment Once a Day Treatment Plan OT Treatment Plan ADL Training,Functional Mobility,Patient/Family Education,Discharge Planning Other Treatment Recommendations and Next ADLs at sink Treatment Focus Discharge Recommendations OT Discharge Recommendations SNF Rehab Home Equipment Needs TBD Transportation Needs at Discharge Wheelchair/Cabulance
--- NOTE | 2020-01-23 12:55 | PT.IPTN ---
Current Diagnoses Disruption of external operation (surgical) wound, not elsewhere classified, initial encounter (01/17/20) Arthrodesis status (01/17/20) Surgery Performed Operation Date: 01/17/20 09:45 Actual Procedures p Incision and Drainage Wound/Spine, Lumbar - Andrea Pascal MD Operation Date: 01/20/20 07:45 Actual Procedures p Incision and Drainage Wound/Spine - Andrea Pascal MD Operation Date: 01/22/20 10:00 Actual Procedures p Incision and Drainage Wound/Spine(Not Applicable) - Andrea Pascal MD Operation Date: 01/24/20 07:45 <No data on this case meets the specified criteria> Physical Therapy Treatment Note M2 PT-IP Current Condition Start: 01/18/20 08:21 Freq: NEEDED Status: Active Protocol: Document 01/18/20 10:54 AW (Rec: 01/18/20 11:46 AW [id number]) Physical Therapy Current Condition Current Condition Evaluation Date 01/18/20 Treatment Diagnosis s/p lumbar wound I&D Onset Date 01/17/20 Precautions Lumbar Precautions Log Roll,No Twisting,Limit Bending,Lifting Restriction of 10 lbs,Gait Belt above Incisional Area M3 PT-IP Subjective Start: 01/18/20 08:21 Freq: NEEDED Status: Active Protocol: Document 01/23/20 10:19 LJ (Rec: 01/23/20 12:55 LJ [email or web address]) Subjective Physical Therapy Visit Type Type Treatment Note Visit Start Time 10:19 Visit Stop Time 11:17 Total Visit Minutes 58 Notes Co-treat with OT, PT, DATABASE SECURITY EXPERT Number of DATABASE SECURITY EXPERT Visits 1 Physical Therapy Visit Comments Patient Comments Pt agreeable to PT Therapy Pain Assessment Pain When Pain Assessed At Rest Pain Present Pain Present Pain Reported M4 PT-IP Mobility and Gait Start: 01/18/20 08:21 Freq: NEEDED Status: Active Protocol: Document 01/23/20 10:19 LJ (Rec: 01/23/20 12:55 LJ [email or web address]) PT-Bed Mobility Assessment Rolling Type of Rolling Log Rolling,Roll to Right Level of Assist Contact Guard Assistance, Minimal Assistance,1 Person Assistance,2 Person Assistance Supine to Sit Supine to Sit Minimal Assistance,1 Person Assistance,Head of Bed Elevated,Bedrails Sit to Supine Sit to Supine Maximum Assistance,1 Person Assistance,Bedrails Scooting Scooting to Edge of Bed Minimal Assistance PT-Transfer Assessment Sit to and From Stand Sit to and from Stand Minimal Assistance,1 Person Assistance,Use of Upper Extremities Equipment Transfer Assistive Device Bed Rail,Front Wheeled Walker Orthotic/Prosthetic Devices or Brace: No Transfers Transfer Destination Bed,Chair,Bedside Commode Transfer Technique ambulated using FWW Transfer Ability Level of Assist Minimal Assistance,Moderate Assistance,1 Person Assistance ,Use of Upper Extremities Comments Mobility Comments Pt resting in bed upon arrival . Requiring Morris and bed cane for bed mobility supine to sit from flat bed. Logroll to left with Morris assist with LEs. Pt able to stand and pivot to [facility] where she sat for several minuste. Pt then stood with Morris and ambulated to chair ModA x2 (1 person managing lines) chair with slow steady gait. Pt sat into chair with eccentric control. Pt stood from chair Morris x1 to ambulate in room. Gait Assessment Gait Gait Assistance Required: Moderate Assistance,2 Person Assist Distance (Feet) 30 Able to Maintain Weight Bearing Status Yes During Gait Assistive Devices Assistive Device Gait Belt,Front Wheeled Walker Orthotic/Prosthetic Devices or Brace: No Gait Deviations General Gait Pattern Antalgic,Decreased Stride Length,Decreased Feet Clearance,Step-to Gait Factors Limiting Gait Function Factors Limiting Gait Function Decreased Activity Tolerance, Decreased Strength,Limited Range of Motion,Pain,Poor Balance,Poor Safety Awareness Comments Gait Comments Pt ambulated in room ModA x1 30' with assist with lines. Pt reported weakness in knees and requested to return to bed . Pt required increased assist returning to bed with ModA x2 for logroll (left and right) and positioning into bed. M5 PT-IP Objective Assessments Start: 01/18/20 08:21 Freq: NEEDED Status: Active Protocol: Document 01/18/20 10:54 AW (Rec: 01/18/20 11:46 AW [id number]) Orientation Orientation/Cognition Level of Alertness Alert Orientation Name,Day of Week,Place, Situation Language Function Ability Hard of Hearing Safety Awareness Decreased Safety Awareness Memory Description Short Term Impaired Gross Range of Motion Lower Extremity ROM Assessment Within Functional Limits Strength Lower Extremity Strength Assessment Bilaterally Impaired Comments Strength Comments Grossly 3/5 BLE Sensation Assessment Sensation Gross Sensation Right LE Impaired,Left LE Impaired Light Touch Impaired Proprioception (Position) Impaired Sensation Description Numbness Comments Sensation Comments neuropathy affects bilateral feet Muscle Tone Muscle Tone WNL Yes M6 PT-IP Treatment Start: 01/18/20 08:21 Freq: NEEDED Status: Active Protocol: Document 01/23/20 10:19 MURIEL (Rec: 01/23/20 12:55 LJ [email or web address]) Physical Therapy Treatment Education Education Provided Precautions,Safety M7 PT-IP Assessment and Plan Start: 01/18/20 08:21 Freq: NEEDED Status: Active Protocol: Document 01/23/20 10:19 MURIEL (Rec: 01/23/20 12:55 LJ [email or web address]) PT Summary Assessment and Plan Potential Rehabilitation Potential Good Summary Impairments Pain,ROM,Strength,Balance, Coordination,Sensation,Bed Mobility,Transfers,Gait, Activity Tolerance Progress Towards Goals Slow Progress due to Medical Issues,Slow Progress due to Activity Tolerance Assessment Summary Pt requires Morris to ModA x2 for mobility and gait with second person assist for lines . Goals Bed Mobility Goal Contact Guard Assistance Transfer Goal Minimal Assistance,Front Wheeled Walker Gait Goal Minimal Assistance,Front Wheel Walker Gait Distance 50 Days to Meet Goals 10 Frequency of Treatment Frequency Of Treatment Twice a Day Treatment Plan Physical Therapy Treatment Plan Bed Mobility Training,Transfer Training,Gait Training, Therapeutic Exercise,Balance Retraining,Post Op Education, Discharge Planning,Hot or Cold Pack,Neuromuscular Re-ed Recommendations To Nursing Amount of Assist Needed 2 Person Assist Discharge Recommendations PT Discharge Recommendations SNF Rehab Transportation Needs at Discharge Wheelchair/Cabulance
--- NOTE | 2020-01-23 13:53 | PC.NURSE ---
Patient given percolone earlier this morning for back discomfort. Helpful. Patients dressing to mid back is cdi, connected to a wound vac that is at 125mmhg. Working well with ss drainage in chamber. Patient up with physical therapy and occupational therapy and tolerated well. She has an allevyn dressing to open area in r.thigh that is cdi. Resting comfortably, tried to have bowel movement but unsuccessful.
--- NOTE | 2020-01-23 16:07 | PT.IPTN ---
Current Diagnoses Disruption of external operation (surgical) wound, not elsewhere classified, initial encounter (01/17/20) Arthrodesis status (01/17/20) Surgery Performed Operation Date: 01/17/20 09:45 Actual Procedures p Incision and Drainage Wound/Spine, Lumbar - Andrea Pascal MD Operation Date: 01/20/20 07:45 Actual Procedures p Incision and Drainage Wound/Spine - Andrea Pascal MD Operation Date: 01/22/20 10:00 Actual Procedures p Incision and Drainage Wound/Spine(Not Applicable) - Andrea Pascal MD Operation Date: 01/24/20 07:45 <No data on this case meets the specified criteria> Physical Therapy Treatment Note M2 PT-IP Current Condition Start: 01/18/20 08:21 Freq: NEEDED Status: Active Protocol: Document 01/18/20 10:54 AW (Rec: 01/18/20 11:46 AW [id number]) Physical Therapy Current Condition Current Condition Evaluation Date 01/18/20 Treatment Diagnosis s/p lumbar wound I&D Onset Date 01/17/20 Precautions Lumbar Precautions Log Roll,No Twisting,Limit Bending,Lifting Restriction of 10 lbs,Gait Belt above Incisional Area M3 PT-IP Subjective Start: 01/18/20 08:21 Freq: NEEDED Status: Active Protocol: Document 01/23/20 16:00 AMH (Rec: 01/23/20 16:07 AMH [id number]) Subjective Physical Therapy Visit Type Type Treatment Note Visit Start Time 15:15 Visit Stop Time 14:00 Total Visit Minutes 45 Notes CO treat with REVIEW MANAGER Number of REVIEW MANAGER Visits 0 Physical Therapy Visit Comments Patient Comments Pt agrees to PT and would like to use the commode Therapy Pain Assessment Pain When Pain Assessed At Rest Pain Present Pain Present Pain Reported Location lower back Intensity 4 Scale Used Numeric (1 - 10) Pain Behaviors Guarding Pain Management Techniques Timing of Activity with Medications M4 PT-IP Mobility and Gait Start: 01/18/20 08:21 Freq: NEEDED Status: Active Protocol: Document 01/23/20 16:00 AMH (Rec: 01/23/20 16:07 AMH [id number]) PT-Bed Mobility Assessment Rolling Type of Rolling Log Rolling,Roll to Right Level of Assist Contact Guard Assistance, Minimal Assistance,1 Person Assistance,2 Person Assistance Supine to Sit Supine to Sit Minimal Assistance,1 Person Assistance,Head of Bed Elevated,Bedrails Sit to Supine Sit to Supine Maximum Assistance,1 Person Assistance,Bedrails Scooting Scooting to Edge of Bed Moderate Assistance PT-Transfer Assessment Sit to and From Stand Sit to and from Stand Minimal Assistance,1 Person Assistance,Use of Upper Extremities Equipment Transfer Assistive Device Gait Belt,Front Wheeled Walker Transfers Transfer Destination Bedside Commode Transfer Technique ambulated using FWW Transfer Ability Level of Assist Minimal Assistance,Moderate Assistance,1 Person Assistance ,Use of Upper Extremities Comments Mobility Comments pt a little more fatigued this afternoon. Mod A for log rolling to the edge of the bed , sidelying to side Mod A. Scooting to the edge of bed was mod A and took time this afternoon to scoot forward at the edge of bed. sit-stand was min A and pt transfered to the bed side commode with min A, sit-stand from commode was min A and transfer back into bed was mod A for legs and for positioning in bed. The patient was positioning in 5 Degree sidelying tilt to the right. A pillow was placed between her knees Gait Assessment Gait Gait Assistance Required: Moderate Assistance,2 Person Assist Distance (Feet) 4 Able to Maintain Weight Bearing Status Yes During Gait Assistive Devices Assistive Device Gait Belt,Front Wheeled Walker Orthotic/Prosthetic Devices or Brace: No Gait Deviations General Gait Pattern Antalgic,Decreased Stride Length,Decreased Feet Clearance,Step-to Gait Factors Limiting Gait Function Factors Limiting Gait Function Decreased Activity Tolerance, Decreased Strength,Limited Range of Motion,Pain,Poor Balance,Poor Safety Awareness Comments Gait Comments pt fatigued this afternoon and it took more effort to perform bed mobility. Once sitting at the edge of the bed the patient does much better with sit-stand and gait with FWW M5 PT-IP Objective Assessments Start: 01/18/20 08:21 Freq: NEEDED Status: Active Protocol: Document 01/18/20 10:54 AW (Rec: 01/18/20 11:46 AW [id number]) Orientation Orientation/Cognition Level of Alertness Alert Orientation Name,Day of Week,Place, Situation Language Function Ability Hard of Hearing Safety Awareness Decreased Safety Awareness Memory Description Short Term Impaired Gross Range of Motion Lower Extremity ROM Assessment Within Functional Limits Strength Lower Extremity Strength Assessment Bilaterally Impaired Comments Strength Comments Grossly 3/5 BLE Sensation Assessment Sensation Gross Sensation Right LE Impaired,Left LE Impaired Light Touch Impaired Proprioception (Position) Impaired Sensation Description Numbness Comments Sensation Comments neuropathy affects bilateral feet Muscle Tone Muscle Tone WNL Yes M6 PT-IP Treatment Start: 01/18/20 08:21 Freq: NEEDED Status: Active Protocol: Document 01/23/20 10:19 LJ (Rec: 01/23/20 12:55 LJ [email or web address]) Physical Therapy Treatment Education Education Provided Precautions,Safety M7 PT-IP Assessment and Plan Start: 01/18/20 08:21 Freq: NEEDED Status: Active Protocol: Document 01/23/20 16:00 AMH (Rec: 01/23/20 16:07 AMH [id number]) PT Summary Assessment and Plan Potential Rehabilitation Potential Good Summary Impairments Pain,ROM,Strength,Balance, Coordination,Sensation,Bed Mobility,Transfers,Gait, Activity Tolerance Progress Towards Goals Slow Progress due to Medical Issues,Slow Progress due to Activity Tolerance Assessment Summary Pt requires Albertina to ModA x2 for mobility and gait with second person assist for lines . Goals Bed Mobility Goal Contact Guard Assistance Transfer Goal Minimal Assistance,Front Wheeled Walker Gait Goal Minimal Assistance,Front Wheel Walker Gait Distance 50 Days to Meet Goals 10 Frequency of Treatment Frequency Of Treatment Twice a Day Treatment Plan Physical Therapy Treatment Plan Bed Mobility Training,Transfer Training,Gait Training, Therapeutic Exercise,Balance Retraining,Post Op Education, Discharge Planning,Hot or Cold Pack,Neuromuscular Re-ed Recommendations To Nursing Amount of Assist Needed 2 Person Assist Discharge Recommendations PT Discharge Recommendations SNF Rehab Transportation Needs at Discharge Wheelchair/Cabulance
[2020-01-23] MEDS: TRAZODONE 50 MG TABLET 150 MG PO (21:37)
[2020-01-23] MEDS: FENOFIBRATE 48 MG TABLET PO (21:38)
[2020-01-23] MEDS: SENNOSIDES 8.6 MG TABLET 17.2 MG PO (21:38)
[2020-01-24] VITALS (20 sets, daily range): BP systolic 117–162; BP diastolic 56–90; PULSE 78–93; RESP 12–20; TEMP 35.9–36.8; O2SAT 90–99; BMI 41.6
[2020-01-24] MEDS: LACTATED RINGERS 1,000 ML 125 ML IV ×3 (00:10→20:20)
[2020-01-24] MEDS: OXYCODONE IR 5 MG TABLET PO ×4 (02:12→20:23)
--- NOTE | 2020-01-24 03:56 | PC.NURSE ---
Reinforced wound vac dressing as a leak was detected, able to achieve seal. Right inner thigh pressure injury started to bleed during pericare, covered with allevyn for protection. Plan for patient to return to OR in the AM.
[2020-01-24] MEDS: CEFTRIAXONE 2 GM/50 ML FROZ.PIGGY IV (07:41)
--- NOTE | 2020-01-24 09:23 | PM.OP.1 ---
Operative Date/Time/Diagnoses Date of procedure: 01/24/20 Time of procedure: 09:23 Pre-op diagnosis: Postoperative lumbar wound infection Post-op diagnosis: same Procedure & Clinicians Procedure: Incisional debridement of lumbar wound through the subcutaneous tissue down to the fascia Primary closure of lumbar wound 17 cm Same procedure as scheduled: Yes Indications: 69-year-old female with postoperative wound infection. She has had multiple washouts. This felt that she needed another return to the operating room for washout and wound VAC change versus potential closure. Risks and benefits of surgery discussed appropriate consents obtained. Risks and benefits of surgery were discussed including not limited to medical risk with heart attack, stroke, , DVT, PE, infection, bleeding, scarring, failure to alleviate infection, further breakdown of the wound, need for further surgery Surgeon: Andrea Pascal Click Yes if Unassisted: Yes Anesthesia Type: General Operative Notes Findings: None Closure Type: primary Specimen(s): none sent Estimated Blood Loss (mL): 5 Procedure in detail: Patient brought to the operating room and intubated on the stretcher. She was rolled over to the well-padded prone position on the Arnel table. The old wound VAC was removed. The back was prepped and draped in standard sterile fashion. Preoperative antibiotics were given. Time-out was performed. We began manipulating around the edges of the wound. At this point there was enough mobility and the open area was small enough from the multiple debridements that I was able to pull the skin edges together without any significant tension. I felt comfortable with being able close. We used a scalpel to [place] to sharply debride the granulation tissue through the superficial tissue down to the remainder of the visible lumbar fascia. A scalpel used to trim back the edges to clean fresh edges and remove any the fibrinous tissue that was still left. The wound was then copiously irrigated with pulsatile lavage. I then removed her old lateral stitches on each side of the wound and began manipulating. The left side of the back kept involuting on itself due to her body habitus and extra skin folds. I want up resecting approximately 1 cm of skin and tissue on each side to be able to pull them together where they would line up well. Everything came together well with a slightly curvilinear horizontal incision at this point. I used pop-off sutures and then gradually tied them together through all the superficial tissue. We then used modified horizontal mattress sutures with nylon to pull the skin together alternating with deep and superficial retention sutures. At the end the skin looks good and there did not appear to be any significant tension across it. The wound was well closed. We placed a dulce dressing over the top and had a hooked up to good suction seal. She was then rolled over, extubated, brought recovery with no complications. Complications: none Post-operative Condition: stable Disposition: PACU Plan for aftercare: Continue inpatient with IV antibiotics. Anticipate her being able to discharge back to intermediate in the next 2-3 days as long as her wound looks good.
[2020-01-24] MEDS: fentaNYL 100 MCG/2 ML INJ IV (09:43)
--- NOTE | 2020-01-24 11:27 | CM.DPC ---
DCP Cont: Spoke to Dr. Pascal, for patient had surgery today. He anticipates that patient will be ready for discharge back to [facility] on Tuesday. Asked him if he can order COVID on Tuesday, which he mentioned he should be able to do. Called Christie at [facility] and gave her update regarding discharge for Tuesday, and plan for COVID testing before. Stated that she will plan for this. P: DCP to continue to follow closely. Plan is for discharge back to [facility] on Tuesday, as long as COVID is negative. Pebbles Burkett RN/Inset Cutter
--- NOTE | 2020-01-24 12:00 | OT.IPNOTE ---
Pt had another surgery today and to check on pt tomorrow for OT treatment.
[2020-01-24] MEDS: ASPIRIN EC 81 MG TABLET PO (12:28)
[2020-01-24] MEDS: VERAPAMIL 80 MG TABLET PO ×2 (12:28→20:25)
[2020-01-24] MEDS: CLOPIDOGREL 75 MG TABLET PO (12:29)
[2020-01-24] MEDS: polyethylene glycoL 3350 17 GM POWD.PACK PO (12:29)
[2020-01-24] MEDS: buPROPion XL 150 MG TAB 300 MG PO (12:36)
[2020-01-24] MEDS: METFORMIN HCL 500 MG TABLET 1000 MG PO ×2 (12:36→20:23)
[2020-01-24] MEDS: hydrOXYzine pamoate 25 MG CAPSULE PO (16:19)
[2020-01-24] MEDS: TRAZODONE 50 MG TABLET 150 MG PO (20:23)
[2020-01-24] MEDS: DOCUSATE 100 MG CAPSULE PO (20:23)
[2020-01-24] MEDS: SENNOSIDES 8.6 MG TABLET 17.2 MG PO (20:23)
[2020-01-24] MEDS: FENOFIBRATE 48 MG TABLET PO (20:24)
[2020-01-25] VITALS (9 sets, daily range): BP systolic 149–162; BP diastolic 61–84; PULSE 82–95; RESP 16–18; TEMP 36.3–37.3; O2SAT 92–98
[2020-01-25] MEDS: OXYCODONE IR 5 MG TABLET PO ×5 (01:30→22:50)
[2020-01-25] MEDS: LACTATED RINGERS 1,000 ML 125 ML IV (04:39)
--- NOTE | 2020-01-25 05:47 | PC.NURSE ---
LUIS MIGUEL completely saturated, light is yellow. Per evening shift nurse, aware that LUIS MIGUEL light is yellow. Will pass on in report to day shift
--- NOTE | 2020-01-25 07:17 | P.PN_ITS ---
Subjective Subjective Date Patient Seen: 01/25/20 Time Patient Seen: 07:17 Interval history: She is doing very well. Good pain control. Exam Vital Signs (past 8 hours): - 01/25/20 00:00 01/25/20 03:00 Temperature 98.3 F 97.8 F Pulse Rate 89 82 Respiratory Rate 18 18 Blood Pressure 149/61 H 153/83 H Pulse Oximetry 92 95 Oxygen Delivery Method Room Air,Nasal Cannula,CPAP Oxygen Flow Rate 0 Const Orientation: alert and oriented x3 Back/Spine/Pelvis Other: Dressing with heavy drainage but not saturated. 5/5 motor both lower extremities Objective Labs Result Diagrams: 01/23/20 05:50 01/23/20 05:50 Assessment & Plan Post-op Postoperative Procedures: Procedures Operation Date: 01/17/20 09:45 Actual Procedures Side Surgeon p Incision and Drainage Wound/Spine, Lumbar Andrea Pascal MD Operation Date: 01/20/20 07:45 Actual Procedures Side Surgeon p Incision and Drainage Wound/Spine Andrea Pascal MD Operation Date: 01/22/20 10:00 Actual Procedures Side Surgeon p Incision and Drainage Wound/Spine Not Applicable Andrea Pascal MD Operation Date: 01/24/20 07:45 Actual Procedures Side Surgeon p Incision and Drainage Lumbar Wound Andrea Pascal MD she is doing much better. Her wound has been having some drainage but is not saturating the dressing. We will change this today. She is getting her Covid testing today for anticipation of returning to intermediate as well as completing another 4 weeks of IV antibiotics. Quality VTE Deep Vein Thrombosis/Pulmonary Embolism Present on Admission: No
--- NOTE | 2020-01-25 07:21 | P.DS_ITS ---
History of Present Illness History of Present Illness Date Patient Seen: 01/25/20 Time Patient Seen: 07:22 Date of Onset of Symptoms: 01/15/20 Chief complaint: [id number] Narrative: 69-year-old female who had history of a lumbar laminectomy and fusion with Dr. Escalera on 11/26/2019. She had a postoperative wound infection and underwent multiple washouts, the last was on 01/02/2020 and she was discharged to [facility] on 01/04/2020. She has had some serous drainage since admission, but recently was seen by the wound care service. She has been draining and soaking through 1-2 ABD pads a day for the past 2 days. No fever chills. She is still getting Rocephin through her IV. Still having pain in the back but overall getting better and she is mobilizing more. Discharge Providers Provider Date of admission: 01/17/20 08:20 Discharge Date: 01/26/20 Primary care physician: Erick Cee Consults: 01/17/20 15:52 Consult to Dietitian, Adult Routine Comment: Reason For Exam: 15 eleuterio scale 01/24/20 10:43 Consult to Occupational Therapy Evaluate & Treat Comment: Physician Instructions: Evaluate and treat Consult to Physical Therapy Evaluate & Treat Comment: Physician Instructions: Evaluate and Treat Consult to Respiratory Therapy Evaluate & Treat Comment: Physician Instructions: Evaluate and treat Discharge provider: Andrea Pascal MD Summary Hospital Course Discharge Diagnosis: Postoperative lumbar wound infection Hospital Course: She was brought to the operating room for multiple trips with irrigation debridement and wound VAC changes on 01/17/2020, 01/20/2020, for 01/22/2020, and 01/24/20 where she had primary closure of her wound. This looks primarily like a wound dehiscence but did not have any spread deeper than the lumbodorsal fascia. Repeat cultures at her 1st operation showed that she was again growing Morganella, but also there was Bacteroides and Enterococcus. All these were sensitive to Rocephin which is what she had been treated with. Repeat cultures at the 2nd operation did not have any growth until 01/25/2020 which also was growing Staph Epi and diphtheroids with just scant growth, felt to most likely be contaminants at this point. Status at Discharge Cognitive/behavioral status at discharge: oriented Functional status at discharge: uses cane/walker Overall status at discharge: patient is progressing back to baseline Exam Vital Signs (past 8 hours): - 01/25/20 00:00 01/25/20 03:00 Temperature 98.3 F 97.8 F Pulse Rate 89 82 Respiratory Rate 18 18 Blood Pressure 149/61 H 153/83 H Pulse Oximetry 92 95 Oxygen Delivery Method Room Air,Nasal Cannula,CPAP Oxygen Flow Rate 0 Const Nutritional Appearance: obese Orientation: alert and oriented x3 Back/Spine/Pelvis Other: Moderate to heavy drainage on dressing. 5/5 motor both lower extremities Objective Labs Result Diagrams: 01/23/20 05:50 01/23/20 05:50 Discharge Plan Discharge Plan Patient Disposition: SNF Transfer to: [facility] Under care of provider: facility provider Consult as needed: Dental, Hearing, Mental health, Podiatry and Vision Discharge orders & Medications Prescriptions: New clopidogrel 75 mg Tablet 75 mg PO DAILY Qty: 30 RF: 0 oxycodone 5 mg Tablet 5 mg PO Q4HR PRN (Reason: pain) Qty: 30 RF: 0 ceftriaxone in dextrose,iso-os 2 gram/50 mL Piggyback 2 gram IV Q24H 28 Days Qty: 1400 RF: 0 Continued fenofibrate 54 MG tablet 54 mg PO BEDTIME Qty: 0 RF: 0 acetaminophen 325 mg Tablet 650 mg PO Q6HR PRN (Reason: Pain, Mild (1-3)) Qty: 60 RF: 0 aspirin 81 mg Tablet,Delayed Release (Dr/Ec) 81 mg PO DAILY Qty: 60 RF: 0 hydroxyzine pamoate 25 mg Capsule 25 mg PO Q4HR PRN (Reason: Nausea And Vomiting) Qty: 30 RF: 0 polyethylene glycol 3350 [Miralax] 17 gram Powder In Packet 17 g PO DAILY RF: 0 docusate sodium [DOK] 100 mg Capsule 100 mg PO BID Qty: 30 RF: 0 oxycodone 5 mg Tablet 5 - 10 mg PO Q3HR PRN (Reason: Pain, Moderate (4-6)) Qty: 60 RF: 0 cyclobenzaprine 5 mg Tablet 5 mg PO Q8HR PRN (Reason: Spasms) Qty: 20 RF: 0 ceftriaxone in dextrose,iso-os 2 gram/50 mL Piggyback 2 gm IV Q24H 42 Days RF: 0 metformin 500 mg Tablet 1,000 mg PO BID RF: 0 gabapentin 600 mg tablet 600 mg PO TID PRN (Reason: pain) RF: 0 trazodone 150 mg tablet 150 mg PO BEDTIME RF: 0 verapamil 80 mg tablet 80 mg PO BID RF: 0 bupropion HCl 300 mg tablet extended release 24 hr 300 mg PO DAILY RF: 0 sumatriptan succinate [Imitrex] 6 mg/0.5 mL Solution 6 mg subcut Q2H PRN (Reason: Headache) Qty: 30 RF: 0 Follow up/Referrals: Erick Cee [Primary Care Provider] - Discharge Health Status Precautions: Stanley Diet/Activity/Treatments Diet: Carb-consistent/Diabetic Liquid consistency: Normal/Thin Food texture: Regular Activity: as tolerated Skin/Wound/Dressing Care Report to your healthcare provider any signs of infection, such as:: chills, fever Dressing: may change as needed Special Rehabilitation Services Reason for rehabilitation: Post-operative therapy Rehab type: Physical therapy and Occupational therapy Visit Report/Discharge Packet Instructions: How to Prevent Falls, DI for Incision and Drainage Stand Alone Forms: Surgery Discharge Discharge Data Primary Care Provider: Erick Cee Discharges patient from system. Discharge Date/Time: 01/26/20 14:00 Quality VTE Deep Vein Thrombosis/Pulmonary Embolism Present on Admission: No
[2020-01-25] MEDS: METFORMIN HCL 500 MG TABLET 1000 MG PO (08:58)
[2020-01-25] MEDS: ASPIRIN EC 81 MG TABLET PO (08:58)
[2020-01-25] MEDS: METOCLOPRAMIDE 10 MG/2 ML INJ IV (08:58)
[2020-01-25] MEDS: CLOPIDOGREL 75 MG TABLET PO (08:58)
[2020-01-25] MEDS: VERAPAMIL 80 MG TABLET PO ×2 (08:59→20:55)
[2020-01-25] MEDS: buPROPion XL 150 MG TAB 300 MG PO (09:02)
[2020-01-25] MEDS: CEFTRIAXONE 2 GM/50 ML FROZ.PIGGY IV (11:20)
--- NOTE | 2020-01-25 12:05 | PT.IPTN ---
Current Diagnoses Disruption of external operation (surgical) wound, not elsewhere classified, initial encounter (01/17/20) Arthrodesis status (01/17/20) Surgery Performed Operation Date: 01/17/20 09:45 Actual Procedures p Incision and Drainage Wound/Spine, Lumbar - Andrea Pascal MD Operation Date: 01/20/20 07:45 Actual Procedures p Incision and Drainage Wound/Spine - Andrea Pascal MD Operation Date: 01/22/20 10:00 Actual Procedures p Incision and Drainage Wound/Spine(Not Applicable) - Andrea Pascal MD Operation Date: 01/24/20 07:45 Actual Procedures p Incision and Drainage Lumbar Wound - Andrea Pascal MD Physical Therapy Treatment Note M2 PT-IP Current Condition Start: 01/18/20 08:21 Freq: NEEDED Status: Active Protocol: Document 01/18/20 10:54 AW (Rec: 01/18/20 11:46 AW [id number]) Physical Therapy Current Condition Current Condition Evaluation Date 01/18/20 Treatment Diagnosis s/p lumbar wound I&D Onset Date 01/17/20 Precautions Lumbar Precautions Log Roll,No Twisting,Limit Bending,Lifting Restriction of 10 lbs,Gait Belt above Incisional Area M3 PT-IP Subjective Start: 01/18/20 08:21 Freq: NEEDED Status: Active Protocol: Document 01/25/20 11:40 SP (Rec: 01/25/20 13:40 SP [id number]) Subjective Physical Therapy Visit Type Type Treatment Note Visit Start Time 11:40 Visit Stop Time 12:05 Total Visit Minutes 25 Number of [employer] Visits 1 Physical Therapy Visit Comments Patient Comments Pt agreed to PT today. Therapy Pain Assessment Pain When Pain Assessed At Rest Pain Present Pain Present Pain Reported Location lower back Intensity 5 Scale Used Numeric (1 - 10) Description Aching Pain Behaviors Guarding Pain Management Techniques Re-positioning,Timing of Activity with Medications M4 PT-IP Mobility and Gait Start: 01/18/20 08:21 Freq: NEEDED Status: Active Protocol: Document 01/25/20 11:40 SP (Rec: 01/25/20 13:40 SP [id number]) PT-Bed Mobility Assessment Rolling Type of Rolling Log Rolling,Bilateral Level of Assist Minimal Assistance,1 Person Assistance Supine to Sit Supine to Sit Moderate Assistance,1 Person Assistance,Head of Bed Elevated,Bedrails Sit to Supine Sit to Supine Moderate Assistance,1 Person Assistance,Bedrails Scooting Scooting to Edge of Bed Minimal Assistance PT-Transfer Assessment Sit to and From Stand Sit to and from Stand Minimal Assistance,Moderate Assistance,1 Person Assistance ,Use of Upper Extremities Equipment Transfer Assistive Device None,Gait Belt,Front Wheeled Walker Orthotic/Prosthetic Devices or Brace: No Transfers Transfer Destination Chair Transfer Technique ambulated using FWW Transfer Ability Level of Assist Minimal Assistance,1 Person Assistance,Use of Upper Extremities Comments Mobility Comments See mobility comments. Pt required Mod A of 1 person for bed mobiltiy trunk support during L sidelying to sitting and LE support sitting to supine. Min A for sit to stand and CGA- Min A during gait short distance in room to chair and across room to commode and back usign FWW CGA -Min A. Pt requested to lay back down end of tx to rest. Pt was laying in bed with bed alarm on and had all needs in each when left. Nurse in room giving meds when left. Gait Assessment Gait Gait Assistance Required: Contact Guard Assist,Minimum Assistance,1 Person Assist Distance (Feet) 24 Able to Maintain Weight Bearing Status Yes During Gait Assistive Devices Assistive Device Gait Belt,Front Wheeled Walker Orthotic/Prosthetic Devices or Brace: No Gait Deviations General Gait Pattern Antalgic,Decreased Stride Length,Decreased Feet Clearance,Step-to Gait Factors Limiting Gait Function Factors Limiting Gait Function Decreased Activity Tolerance, Decreased Strength,Limited Range of Motion,Pain,Poor Balance,Poor Safety Awareness Comments Gait Comments See mobility comments. PT-Balance Assessment Sitting Balance and Reactions Static Sitting Balance Ability Good Dynamic Sitting Balance Ability Fair Standing Balance and Reactions Static Standing Balance Ability Fair Dynamic Standing Balance Ability Poor Device Used FWW M5 PT-IP Objective Assessments Start: 01/18/20 08:21 Freq: NEEDED Status: Active Protocol: Document 01/18/20 10:54 AW (Rec: 01/18/20 11:46 AW [id number]) Orientation Orientation/Cognition Level of Alertness Alert Orientation Name,Day of Week,Place, Situation Language Function Ability Hard of Hearing Safety Awareness Decreased Safety Awareness Memory Description Short Term Impaired Gross Range of Motion Lower Extremity ROM Assessment Within Functional Limits Strength Lower Extremity Strength Assessment Bilaterally Impaired Comments Strength Comments Grossly 3/5 BLE Sensation Assessment Sensation Gross Sensation Right LE Impaired,Left LE Impaired Light Touch Impaired Proprioception (Position) Impaired Sensation Description Numbness Comments Sensation Comments neuropathy affects bilateral feet Muscle Tone Muscle Tone WNL Yes M6 PT-IP Treatment Start: 01/18/20 08:21 Freq: NEEDED Status: Active Protocol: Document 01/25/20 11:40 SP (Rec: 01/25/20 13:40 SP [id number]) Physical Therapy Treatment Education Education Provided Precautions,Safety M7 PT-IP Assessment and Plan Start: 01/18/20 08:21 Freq: NEEDED Status: Active Protocol: Document 01/25/20 11:40 SP (Rec: 01/25/20 13:40 SP [id number]) PT Summary Assessment and Plan Potential Rehabilitation Potential Good Status of Condition at Evaluation Evolving Summary Impairments Pain,ROM,Strength,Balance, Coordination,Sensation,Bed Mobility,Transfers,Gait, Activity Tolerance Progress Towards Goals Progressing Toward Goals,Slow Progress due to Medical Issues ,Slow Progress due to Activity Tolerance Assessment Summary See nena bunch comments. Pt required Mod A for mo bility and gait usign FWW, [employer] was able to manage IV line. Pt tolerated increased distance gait in room usign FWW, continued to experence R LBP during gati 02/02, no worse than at rest pre PT session, nursing assessed meds toward end of tx. Goals Bed Mobility Goal Contact Guard Assistance Transfer Goal Minimal Assistance,Front Wheeled Walker Gait Goal Minimal Assistance,Front Wheel Walker Gait Distance 50 Days to Meet Goals 10 Frequency of Treatment Frequency Of Treatment Twice a Day Treatment Plan Physical Therapy Treatment Plan Bed Mobility Training,Transfer Training,Gait Training, Therapeutic Exercise,Balance Retraining,Post Op Education, Discharge Planning,Hot or Cold Pack,Neuromuscular Re-ed Other Recommendations and Next Treatment bed mobility, transfers, ther Focus ex and gait if tolerated Recommendations To Nursing Amount of Assist Needed 1 Person Assist Discharge Recommendations PT Discharge Recommendations SNF Rehab Transportation Needs at Discharge Wheelchair/Cabulance
--- NOTE | 2020-01-25 12:49 | PC.NURSE ---
Addendum entered by Zakia House R.N. 01/25/20 14:04: Surgical incision noted with well approximated edges, secured with sutures. Original Note: Day shift note: Patient awake, alert, and pleasantly cooperative. Up OOB to chair with staff and PT/OT for both breakfast and lunch. LUIS MIGUEL dressing changed by this RN as ordered. Placed dressing Cover site x 2 to mid lower back, horizontally. Inspected frequently for drainage, no further drainage or abnormal bleeding noted. High Fall Risk precautions maintained, calls appropriately for staff assist.
--- NOTE | 2020-01-25 16:18 | PT.IPTN ---
Current Diagnoses Disruption of external operation (surgical) wound, not elsewhere classified, initial encounter (01/17/20) Arthrodesis status (01/17/20) Surgery Performed Operation Date: 01/17/20 09:45 Actual Procedures p Incision and Drainage Wound/Spine, Lumbar - Andrea Pascal MD Operation Date: 01/20/20 07:45 Actual Procedures p Incision and Drainage Wound/Spine - Andrea Pascal MD Operation Date: 01/22/20 10:00 Actual Procedures p Incision and Drainage Wound/Spine(Not Applicable) - Andrea Pascal MD Operation Date: 01/24/20 07:45 Actual Procedures p Incision and Drainage Lumbar Wound - Andrea Pascal MD Physical Therapy Treatment Note M2 PT-IP Current Condition Start: 01/18/20 08:21 Freq: NEEDED Status: Active Protocol: Document 01/18/20 10:54 AW (Rec: 01/18/20 11:46 AW [id number]) Physical Therapy Current Condition Current Condition Evaluation Date 01/18/20 Treatment Diagnosis s/p lumbar wound I&D Onset Date 01/17/20 Precautions Lumbar Precautions Log Roll,No Twisting,Limit Bending,Lifting Restriction of 10 lbs,Gait Belt above Incisional Area M3 PT-IP Subjective Start: 01/18/20 08:21 Freq: NEEDED Status: Active Protocol: Document 01/25/20 15:55 SP (Rec: 01/25/20 17:08 SP [id number]) Subjective Physical Therapy Visit Type Type Treatment Note Visit Start Time 15:55 Visit Stop Time 16:18 Total Visit Minutes 23 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 Therapy Pain Assessment Pain Present Pain Present Pain Reported Location lower back Intensity 5 Pain Management Techniques Re-positioning M4 PT-IP Mobility and Gait Start: 01/18/20 08:21 Freq: NEEDED Status: Active Protocol: Document 01/25/20 15:55 SP (Rec: 01/25/20 17:08 SP [id number]) PT-Bed Mobility Assessment Rolling Type of Rolling Log Rolling,Bilateral Level of Assist Contact Guard Assistance,1 Person Assistance Supine to Sit Supine to Sit Minimal Assistance,Head of Bed Elevated,Bedrails Sit to Supine Sit to Supine Minimal Assistance,Bedrails Scooting Scooting to Edge of Bed Contact Guard Assistance PT-Transfer Assessment Sit to and From Stand Sit to and from Stand Contact Guard Assistance, Minimal Assistance,Use of Upper Extremities Equipment Transfer Assistive Device Gait Belt,Front Wheeled Walker Orthotic/Prosthetic Devices or Brace: No Transfers Transfer Destination Bed Transfer Technique pt ambulated usign FWW Transfer Ability Level of Assist Contact Guard Assistance, Minimal Assistance,1 Person Assistance,Use of Upper Extremities Comments Mobility Comments Pt was laying on L side when arrived. Complete log roll to L CGA with occasional cuing for Le positioning, L sidelying to sitting Albertina at posterior L shld to transition to sitting, was able to scoot to EOB herself. Sit to stand 10% A initially then CGA second time, cued for proper hand placement and used fWW for self support. Pt was ableto ambulate usign FWW L side of bed to door then requested seated rest on R side of bed due to decreased strength and activity tolerance, 2 min rest sitting ,CGA to come to standing and walked back to L side of bed 15 ft x2. Pt does well sitting close to HOB and reaching back prior to sitting. Sitting to L side lying then transition to supine with Albertina for BLE support into bed then just cues required to center herself. Pt request to lay on R side and placement of pillows behind her, [employer] assisted with pillow placement only, patient was ableto use bed rails to log roll to R but cued for knees bent and spinal alignment. Pt was L sidelying with bed alarm armed and all needs in reach prior to leaving. Gait Assessment Gait Gait Assistance Required: Contact Guard Assist,1 Person Assist Distance (Feet) 15 Able to Maintain Weight Bearing Status Yes During Gait Assistive Devices Assistive Device Gait Belt,Front Wheeled Walker Orthotic/Prosthetic Devices or Brace: No Gait Deviations General Gait Pattern Antalgic,Decreased Stride Length,Decreased Feet Clearance,Step-to Gait Factors Limiting Gait Function Factors Limiting Gait Function Decreased Activity Tolerance, Decreased Strength,Limited Range of Motion,Pain,Poor Balance,Poor Safety Awareness Comments Gait Comments See mobility comments PT-Balance Assessment Sitting Balance and Reactions Static Sitting Balance Ability Good Dynamic Sitting Balance Ability Fair Standing Balance and Reactions Static Standing Balance Ability Fair Dynamic Standing Balance Ability Poor Device Used FWW M5 PT-IP Objective Assessments Start: 01/18/20 08:21 Freq: NEEDED Status: Active Protocol: Document 01/18/20 10:54 AW (Rec: 04/24/20 11:46 AW [id number]) Orientation Orientation/Cognition Level of Alertness Alert Orientation Name,Day of Week,Place, Situation Language Function Ability Hard of Hearing Safety Awareness Decreased Safety Awareness Memory Description Short Term Impaired Gross Range of Motion Lower Extremity ROM Assessment Within Functional Limits Strength Lower Extremity Strength Assessment Bilaterally Impaired Comments Strength Comments Grossly 3/5 BLE Sensation Assessment Sensation Gross Sensation Right LE Impaired,Left LE Impaired Light Touch Impaired Proprioception (Position) Impaired Sensation Description Numbness Comments Sensation Comments neuropathy affects bilateral feet Muscle Tone Muscle Tone WNL Yes M6 PT-IP Treatment Start: 01/18/20 08:21 Freq: NEEDED Status: Active Protocol: Document 01/25/20 15:55 SP (Rec: 01/25/20 17:08 SP [id number]) Physical Therapy Treatment Exercises Exercises Ankle Pumps,Heel Slides Knee ROM Measurement 80 deg Education Education Provided Precautions,Safety M7 PT-IP Assessment and Plan Start: 01/18/20 08:21 Freq: NEEDED Status: Active Protocol: Document 01/25/20 15:55 SP (Rec: 01/25/20 17:08 SP [id number]) PT Summary Assessment and Plan Potential Rehabilitation Potential Good Status of Condition at Evaluation Evolving Summary Impairments Pain,ROM,Strength,Balance, Coordination,Sensation,Bed Mobility,Transfers,Gait, Activity Tolerance Progress Towards Goals Progressing Toward Goals,Slow Progress due to Medical Issues ,Slow Progress due to Activity Tolerance Assessment Summary See nena bunch comments. Pt improved with decreased assistance required Min A with bed mobility, transfers and CGA gait usign FWW, Pt tolerated increased distance gait in room usign FWW. Goals Bed Mobility Goal Contact Guard Assistance Transfer Goal Minimal Assistance,Front Wheeled Walker Gait Goal Minimal Assistance,Front Wheel Walker Gait Distance 50 Days to Meet Goals 10 Frequency of Treatment Frequency Of Treatment Twice a Day Treatment Plan Physical Therapy Treatment Plan Bed Mobility Training,Transfer Training,Gait Training, Therapeutic Exercise,Balance Retraining,Post Op Education, Discharge Planning,Hot or Cold Pack,Neuromuscular Re-ed Other Recommendations and Next Treatment bed mobility, transfers, ther Focus ex and increase gait tolerance if tolerated, sit to stands Recommendations To Nursing Amount of Assist Needed 2 Person Assist Discharge Recommendations PT Discharge Recommendations SNF Rehab Transportation Needs at Discharge Wheelchair/Cabulance
[2020-01-25 16:48] LABS: COVID19 Sendout Not Detected (Not Detect)
[2020-01-25] MEDS: hydrOXYzine pamoate 25 MG CAPSULE PO (18:16)
[2020-01-25] MEDS: SENNOSIDES 8.6 MG TABLET 17.2 MG PO (20:53)
[2020-01-25] MEDS: DOCUSATE 100 MG CAPSULE PO (20:53)
[2020-01-25] MEDS: TRAZODONE 50 MG TABLET 150 MG PO (20:54)
[2020-01-25] MEDS: FENOFIBRATE 48 MG TABLET PO (20:54)
--- NOTE | 2020-01-25 21:01 | PC.NURSE ---
Addendum entered by Jennifer Coronado R.N. 01/25/20 23:59: Now positioned on left side in bed. Requests pain medications for back pain 02/02. These were given as per emar. Cpap replaced. Original Note: Took over care of pt @ 1930. Pt mostly resting in bed with eyes closed, but rouses easily to movement in room. Blood glucose this evening 82 with poor po intake and pt shows little interest in any other food choices. Held metformin due to this reason. Declines to reposition in bed and refuses scd's overnight. Fitted with cpap as per request following hs meds. No concerns or complaints verbalized.
[2020-01-25] MEDS: SODIUM CHLORIDE 0.9% FLUSH 10 ML IV (21:43)
[2020-01-25] MEDS: ACETAMINOPHEN 325 MG TABLET 650 MG PO (22:50)
[2020-01-26 00:30] VITALS: BP 134/56; PULSE 84; RESP 16; TEMP 36.6; O2SAT 94
[2020-01-26] MEDS: OXYCODONE IR 5 MG TABLET PO ×3 (02:02→11:03)
[2020-01-26 05:26] VITALS: BP 149/71; PULSE 77; RESP 16; TEMP 36.8; O2SAT 95
[2020-01-26 08:00] VITALS: BP 151/74; PULSE 82; RESP 16; TEMP 36.2; O2SAT 95
[2020-01-26] MEDS: METFORMIN HCL 500 MG TABLET 1000 MG PO (08:47)
[2020-01-26] MEDS: CLOPIDOGREL 75 MG TABLET PO (08:47)
[2020-01-26] MEDS: ASPIRIN EC 81 MG TABLET PO (08:47)
[2020-01-26] MEDS: polyethylene glycoL 3350 17 GM POWD.PACK PO (08:47)
[2020-01-26] MEDS: buPROPion XL 150 MG TAB 300 MG PO (08:47)
[2020-01-26] MEDS: DOCUSATE 100 MG CAPSULE PO (08:47)
[2020-01-26 08:48] VITALS: BP 151/74; PULSE 82
[2020-01-26] MEDS: SODIUM CHLORIDE 0.9% FLUSH 10 ML IV (08:48)
[2020-01-26] MEDS: VERAPAMIL 80 MG TABLET PO (08:48)
--- NOTE | 2020-01-26 09:39 | PM.DS.1 ---
History of Present Illness History of Present Illness Chief complaint: [id number] Discharge Providers Provider Date of admission: 01/17/20 08:20 Discharge Date: 01/26/20 Primary care physician: Erick Cee Consults: 01/17/20 15:52 Consult to Dietitian, Adult Routine Comment: Reason For Exam: 15 eleuterio scale 01/24/20 10:43 Consult to Occupational Therapy Evaluate & Treat Comment: Physician Instructions: Evaluate and treat Consult to Physical Therapy Evaluate & Treat Comment: Physician Instructions: Evaluate and Treat Consult to Respiratory Therapy Evaluate & Treat Comment: Physician Instructions: Evaluate and treat Discharge provider: Hebert Parekh MD Exam Vital Signs (past 8 hours): - 01/26/20 05:26 01/26/20 08:00 01/26/20 08:48 Temperature 98.2 F 97.2 F L Pulse Rate 77 82 82 Respiratory Rate 16 16 Blood Pressure 149/71 H 151/74 H 151/74 H Pulse Oximetry 95 95 Oxygen Delivery Method Room Air,CPAP Oxygen Flow Rate 0 Objective Labs Result Diagrams: 01/23/20 05:50 01/23/20 05:50 Labs: Laboratory Results - last 24 hr 01/25/20 09:00 COVID-19 PCR Not detected Discharge Plan Discharge Plan Patient Disposition: SNF Transfer to: [facility] Under care of provider: facility provider Consult as needed: Dental, Hearing, Mental health, Podiatry and Vision Discharge orders & Medications Prescriptions: New clopidogrel 75 mg Tablet 75 mg PO DAILY Qty: 30 RF: 0 oxycodone 5 mg Tablet 5 mg PO Q4HR PRN (Reason: pain) Qty: 30 RF: 0 ceftriaxone in dextrose,iso-os 2 gram/50 mL Piggyback 2 gram IV Q24H 28 Days Qty: 1400 RF: 0 Continued fenofibrate 54 MG tablet 54 mg PO BEDTIME Qty: 0 RF: 0 acetaminophen 325 mg Tablet 650 mg PO Q6HR PRN (Reason: Pain, Mild (1-3)) Qty: 60 RF: 0 aspirin 81 mg Tablet,Delayed Release (Dr/Ec) 81 mg PO DAILY Qty: 60 RF: 0 hydroxyzine pamoate 25 mg Capsule 25 mg PO Q4HR PRN (Reason: Nausea And Vomiting) Qty: 30 RF: 0 polyethylene glycol 3350 [Miralax] 17 gram Powder In Packet 17 g PO DAILY RF: 0 docusate sodium [DOK] 100 mg Capsule 100 mg PO BID Qty: 30 RF: 0 oxycodone 5 mg Tablet 5 - 10 mg PO Q3HR PRN (Reason: Pain, Moderate (4-6)) Qty: 60 RF: 0 cyclobenzaprine 5 mg Tablet 5 mg PO Q8HR PRN (Reason: Spasms) Qty: 20 RF: 0 ceftriaxone in dextrose,iso-os 2 gram/50 mL Piggyback 2 gm IV Q24H 42 Days RF: 0 metformin 500 mg Tablet 1,000 mg PO BID RF: 0 gabapentin 600 mg tablet 600 mg PO TID PRN (Reason: pain) RF: 0 trazodone 150 mg tablet 150 mg PO BEDTIME RF: 0 verapamil 80 mg tablet 80 mg PO BID RF: 0 bupropion HCl 300 mg tablet extended release 24 hr 300 mg PO DAILY RF: 0 sumatriptan succinate [Imitrex] 6 mg/0.5 mL Solution 6 mg subcut Q2H PRN (Reason: Headache) Qty: 30 RF: 0 Follow up/Referrals: Erick Cee [Primary Care Provider] - Discharge Health Status Precautions: [place] Diet/Activity/Treatments Diet: Carb-consistent/Diabetic Liquid consistency: Normal/Thin Food texture: Regular Activity: as tolerated Skin/Wound/Dressing Care Report to your healthcare provider any signs of infection, such as:: chills, fever Dressing: may change as needed Special Rehabilitation Services Reason for rehabilitation: Post-operative therapy Rehab type: Physical therapy and Occupational therapy Visit Report/Discharge Packet Instructions: DI for Incision and Drainage Stand Alone Forms: Surgery Discharge Discharge Data Primary Care Provider: Erick Cee Quality VTE Deep Vein Thrombosis/Pulmonary Embolism Present on Admission: No
--- NOTE | 2020-01-26 09:47 | P.PN_ITS ---
Subjective Subjective Date Patient Seen: 01/26/20 Time Patient Seen: 09:48 Interval history: Patient is status post multiple irrigation and debridements of a postsurgical wound infection. Patient doing very well today without any complaints. Exam Vital Signs (past 8 hours): - 01/26/20 05:26 01/26/20 08:00 01/26/20 08:48 Temperature 98.2 F 97.2 F L Pulse Rate 77 82 82 Respiratory Rate 16 16 Blood Pressure 149/71 H 151/74 H 151/74 H Pulse Oximetry 95 95 Oxygen Delivery Method Room Air,CPAP Oxygen Flow Rate 0 Narrative Exam Narrative: Patient's dressing is clean and dry. Positive dorsiflexion and plantar flexion of her toes and ankles. Minimal tenderness to palpation to the posterior aspect of both calves. Palpable pedal pulses. Normal strength with dorsiflexion and plantar flexion. Objective Labs Result Diagrams: 01/23/20 05:50 01/23/20 05:50 Labs: Laboratory Results - last 24 hr 01/25/20 09:00 COVID-19 PCR Not detected Assessment & Plan Assessment & Plan narrative: Patient's final culture results are available. Positive for Staph which seems to be more of a skin contaminant than actual infectious process. Patient will be discharged to a [place] [facility] facility and will still require her IV antibiotics. COVID-19 COVID-19 status: Negative Result date/Date tested (Pos, Neg/Pending): 01/25/20 Time Spent With Patient Time with patient: less than 15 minutes Quality VTE Deep Vein Thrombosis/Pulmonary Embolism Present on Admission: No
--- NOTE | 2020-01-26 10:36 | PT.IPTN ---
Current Diagnoses Disruption of external operation (surgical) wound, not elsewhere classified, initial encounter (01/17/20) Arthrodesis status (01/17/20) Surgery Performed Operation Date: 01/17/20 09:45 Actual Procedures p Incision and Drainage Wound/Spine, Lumbar - Andrea Pascal MD Operation Date: 01/20/20 07:45 Actual Procedures p Incision and Drainage Wound/Spine - Andrea Pascal MD Operation Date: 01/22/20 10:00 Actual Procedures p Incision and Drainage Wound/Spine(Not Applicable) - Andrea Pascal MD Operation Date: 01/24/20 07:45 Actual Procedures p Incision and Drainage Lumbar Wound - Andrea Pascal MD Physical Therapy Treatment Note M2 PT-IP Current Condition Start: 01/18/20 08:21 Freq: NEEDED Status: Active Protocol: Document 01/18/20 10:54 AW (Rec: 01/18/20 11:46 AW [id number]) Physical Therapy Current Condition Current Condition Evaluation Date 01/18/20 Treatment Diagnosis s/p lumbar wound I&D Onset Date 01/17/20 Precautions Lumbar Precautions Log Roll,No Twisting,Limit Bending,Lifting Restriction of 10 lbs,Gait Belt above Incisional Area M3 PT-IP Subjective Start: 01/18/20 08:21 Freq: NEEDED Status: Active Protocol: Document 01/26/20 10:17 SP (Rec: 01/26/20 13:10 SP [id number]) Subjective Physical Therapy Visit Type Type Treatment Note Visit Start Time 10:17 Visit Stop Time 10:36 Total Visit Minutes 19 Number of ASSOCIATE ACCOUNT EXECUTIVE Visits 3 Physical Therapy Visit Comments Patient Comments Pt agreed to working with PT. Therapy Pain Assessment Pain When Pain Assessed During Mobility Pain Present Pain Present Pain Reported Location lower back Intensity 5 Scale Used LBP numeric scale 1-10 Pain Behaviors Facial Grimacing,Moaning, Restlessness Pain Management Techniques Re-positioning,Timing of Activity with Medications M4 PT-IP Mobility and Gait Start: 01/18/20 08:21 Freq: NEEDED Status: Active Protocol: Document 01/26/20 10:17 SP (Rec: 01/26/20 13:10 SP [id number]) PT-Bed Mobility Assessment Rolling Type of Rolling Log Rolling,Roll to Left Level of Assist Standby Assistance Supine to Sit Supine to Sit Moderate Assistance,1 Person Assistance,Bedrails Scooting Scooting to Edge of Bed Contact Guard Assistance PT-Transfer Assessment Sit to and From Stand Sit to and from Stand Contact Guard Assistance,1 Person Assistance,Use of Upper Extremities Equipment Transfer Assistive Device Gait Belt,Front Wheeled Walker Transfers Transfer Destination Chair Transfer Technique pt ambulated using FWW Transfer Ability Level of Assist Contact Guard Assistance,1 Person Assistance,Use of Upper Extremities Comments Mobility Comments Pt was laying in bed when arrived agreeable to PT. Pt completed L kannan roll herself using bed rail and repositioning BLE to EOB. Pt required HOB elevated 10deg and Mod A for trunk support at posterior L shld to transition to sitting, able to scoot to EOB herself using bed rail or WB LUE on bed and bed handle with RUE until B feet supported on floor, CGA. Sit to stand with FWW support once in standing, good proper hand placement, CGA. Pt was able to increase ambulation to door and 5 ft into hallway and back to her chair in room approx 50 ft total. Pt demonstrated little shakiness in BUE and LE and SOB with increased BUE WB on FWW toward end of distance in gait CGA, Min during L turn in hallway for decreased FWW pacing for safety mgt and cuing for end of bed cords obstacle mgt with improvement. Pt was able to step pivot turning fWW CGA to sit into chair, cued for FWW back fully prior to chair with good hand placement and slow descent. Applied warm blankets per patietn request and feet supported on pillow on floor, declined reclining chair due to wanting legs to rest at down. Pt had call light and all needs in reach before left . Gait Assessment Gait Gait Assistance Required: Contact Guard Assist,Minimum Assistance,1 Person Assist Distance (Feet) 50 Able to Maintain Weight Bearing Status Yes During Gait Assistive Devices Assistive Device Gait Belt,Front Wheeled Walker Orthotic/Prosthetic Devices or Brace: No Gait Deviations General Gait Pattern Antalgic,Decreased Stride Length,Decreased Feet Clearance,Lateral Trunk Lean, Step-to Gait Factors Limiting Gait Function Factors Limiting Gait Function Decreased Activity Tolerance, Decreased Strength,Limited Range of Motion,Pain,Poor Balance,Poor Safety Awareness Comments Gait Comments See mobility comments PT-Balance Assessment Sitting Balance and Reactions Static Sitting Balance Ability Good Dynamic Sitting Balance Ability Fair Standing Balance and Reactions Static Standing Balance Ability Fair Dynamic Standing Balance Ability Fair Device Used FWW M5 PT-IP Objective Assessments Start: 01/18/20 08:21 Freq: NEEDED Status: Active Protocol: Document 01/18/20 10:54 AW (Rec: 01/18/20 11:46 AW [id number]) Orientation Orientation/Cognition Level of Alertness Alert Orientation Name,Day of Week,Place, Situation Language Function Ability Hard of Hearing Safety Awareness Decreased Safety Awareness Memory Description Short Term Impaired Gross Range of Motion Lower Extremity ROM Assessment Within Functional Limits Strength Lower Extremity Strength Assessment Bilaterally Impaired Comments Strength Comments Grossly 3/5 BLE Sensation Assessment Sensation Gross Sensation Right LE Impaired,Left LE Impaired Light Touch Impaired Proprioception (Position) Impaired Sensation Description Numbness Comments Sensation Comments neuropathy affects bilateral feet Muscle Tone Muscle Tone WNL Yes M6 PT-IP Treatment Start: 01/18/20 08:21 Freq: NEEDED Status: Active Protocol: Document 01/26/20 10:17 SP (Rec: 01/26/20 13:10 SP [id number]) Physical Therapy Treatment Education Education Provided Precautions,Safety M7 PT-IP Assessment and Plan Start: 01/18/20 08:21 Freq: NEEDED Status: Active Protocol: Document 01/26/20 10:17 SP (Rec: 01/26/20 13:10 SP [id number]) PT Summary Assessment and Plan Potential Rehabilitation Potential Good Status of Condition at Evaluation Evolving Summary Impairments Pain,ROM,Strength,Balance, Coordination,Sensation,Bed Mobility,Transfers,Gait, Activity Tolerance Progress Towards Goals Progressing Toward Goals,Slow Progress due to Medical Issues ,Slow Progress due to Activity Tolerance Assessment Summary See mobility comments. Pt improved with decreased assistance during transfers CGA and gait CGQA- Min using FWW. Pt was able to walk further distance but tired quickly requiring Min A durign turn for slower pacing of FWW for safety. Pt would benefit from SNF for further strenthening. Goals Bed Mobility Goal Contact Guard Assistance Transfer Goal Minimal Assistance,Front Wheeled Walker Gait Goal Minimal Assistance,Front Wheel Walker Gait Distance 50 Days to Meet Goals 10 Frequency of Treatment Frequency Of Treatment Twice a Day Treatment Plan Physical Therapy Treatment Plan Bed Mobility Training,Transfer Training,Gait Training, Therapeutic Exercise,Balance Retraining,Post Op Education, Discharge Planning,Hot or Cold Pack,Neuromuscular Re-ed Other Recommendations and Next Treatment bed mobility, transfers, ther Focus ex and increase gait , sit to stands,standing balance activities. Recommendations To Nursing Amount of Assist Needed 1 Person Assist Discharge Recommendations PT Discharge Recommendations SNF Rehab Transportation Needs at Discharge Wheelchair/Cabulance
[2020-01-26 11:06] VITALS: BP 163/72; PULSE 85; RESP 18; TEMP 36.7; O2SAT 95
[2020-01-26] MEDS: CEFTRIAXONE 2 GM/50 ML FROZ.PIGGY IV (11:09)
--- NOTE | 2020-01-26 12:30 | PC.NURSE ---
Addendum entered by Zakia House R.N. 01/26/20 14:11: 1400: Patient discharged to [facility] via WC in stable condition by [facility] staff. Original Note: Day shift note: Patient awake, alert, and pleasant. UP OOB to chair for breakfast, voiding in BSC. 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 Dressing to mid lower back, changed, minimal amount of drainage SS, changed due to peeling off. Placed [place] dressings x 2, CDI. Horizontal surgical incision secured with sutures, no abnormal drainage noted, no active bleeding. Edges well approximated. Pressure Injury to right inner upper groin, dressed with Allevyn dressing. Perineum with redness, blanches, barrier cream applied with pericare. Repositioning in bed frequently. Calls appropriately for staff assistance. Report given at 1230 to Fernanda FLOYD receiving nurse at [facility], all questions answered.
--- NOTE | 2020-01-26 13:45 | CM.DPNOTE ---
DC Note DC order in place and patient/family remain agreeable to DC back to [facility]. COVID-19 neg, results back 01.25.20 Updated Arianne at [facility] and transportation was arranged for 1400 p/u via w/c, EVERETT Koehler updated. Faxed completed and signed med list and Rx, PASRR not needed P: DC back to [facility] via w/c today KRISTI Caro
== END 2020-01-26 14:00 | DRG 857 ==
LOC: OR 12:28 → AC 13:15
PROVIDERS: Admitting Provider Orthopaedic Surgery; PCP Physician Assistant Medical; Referring Provider Orthopaedic Surgery; Visit Provider Orthopaedic Surgery
PROC: 0JB70ZZ Excision of Back Subcutaneous Tissue and Fascia, Open Approach (ICD-10-PCS; CPT 10180; principal; 2020-01-17 09:45)
DX: T81.41XA Infection following a procedure, superficial incisional surgical site, initial encounter (principal); T81.31XA Disruption of external operation (surgical) wound, not elsewhere classified, initial encounter; Z68.41 Body mass index [BMI] 40.0-44.9, adult; Z16.24 Resistance to multiple antibiotics; G47.33 Obstructive sleep apnea (adult) (pediatric); E66.01 Morbid (severe) obesity due to excess calories; B95.2 Enterococcus as the cause of diseases classified elsewhere; B96.6 Bacteroides fragilis [B. fragilis] as the cause of diseases classified elsewhere
CPT/HCPCS: 36415; 36592; 80048; 82962; 85025; 85651; 86140; 87070; 87075; 87076; 87077; 87185; 87186; 87205; 87635; 94660; 94760; 97110; 97116; 97161; 97166; 97530; 97535; J0330; J0696; J1170; J1642; J2405; J2704; J2765; J3010

== ENCOUNTER → 2020-02-02 13:13 | Outpatient (ROUT) | payer SELFPAY ==
[2020-01-17 12:48] VITALS: BMI 41.6
[2020-02-04 20:48] LABS: COVID19 Sendout Not Detected (Not Detected)
== END ==
PROVIDERS: PCP Physician Assistant Medical; Visit Provider Internal Medicine
DX: Z11.59 Encounter for screening for other viral diseases (principal)
CPT/HCPCS: 87635

== ENCOUNTER → 2020-03-12 16:00 | Outpatient (CLI) | payer MEDICARE, MEDICAID, SELFPAY ==
[2020-03-12 15:17] VITALS: BMI 41.6
[2020-03-12 17:27] LABS: COVID19 -Nasal RAPID Negative (Negative)
== END ==
PROVIDERS: PCP Physician Assistant Medical; Visit Provider Registered Nurse
DX: Z01.812 Encounter for preprocedural laboratory examination (principal)
CPT/HCPCS: 87635

== ENCOUNTER 2020-03-13 12:21 | Day surgery (SDC) | payer MEDICARE, MEDICAID, SELFPAY ==
[2020-01-17 12:48] VITALS: BMI 41.6
[2020-03-12 15:03] VITALS: BMI 45.3
[2020-03-12 15:17] VITALS: BMI 41.6
[2020-03-13] VITALS (9 sets, daily range): BP systolic 105–145; BP diastolic 48–81; PULSE 85–111; RESP 12–18; TEMP 35.7–36.8; O2SAT 94–97; BMI 37.0
[2020-03-13] MEDS: SCOPOLAMINE 1 PATCH TOP (10:07)
[2020-03-13] MEDS: ACETAMINOPHEN 325 MG TABLET 975 MG PO (10:07)
[2020-03-13] MEDS: GABAPENTIN 300 MG CAPSULE PO (10:07)
--- NOTE | 2020-03-13 11:36 | PM.PREOP ---
Pre-operative Note COVID-19 COVID-19 status: Negative Result date/Date tested (Pos, Neg/Pending): 03/12/20 Interval Note History & Physical reviewed/Exam performed by Physician: Yes Changes to H&P: No
[2020-03-13] MEDS: CEFAZOLIN 2 GM/100 ML FROZ.PIGGY IV (11:40)
--- NOTE | 2020-03-13 11:53 | SUR.OPER ---
Prone on padded OR bed, head in foam head support, gel chest rolls, gel pad under knees, pillow under lower legs, toes free of pressure, arms secured on padded arm boards at <90 degrees abduction. Safety belt at thigh.
[2020-03-13] MEDS: BUPIVACAINE 0.25% W/ EPI 30 ML VIAL INJ (11:57)
[2020-03-13] MEDS: SODIUM CHLORIDE IRRIG SOLUTION 3,000 ML, GENTAMICIN 240 MG IRR (12:14)
--- NOTE | 2020-03-13 12:49 | PM.OP.1 ---
Operative Date/Time/Diagnoses Date of procedure: 03/13/20 Time of procedure: 11:12 Pre-op diagnosis: Lumbar wound dehiscience Post-op diagnosis: same Procedure & Clinicians Procedure: Irrigation and debridement of skin Same procedure as scheduled: Yes Surgeon: Kt Escalera Click Yes if Unassisted: Yes Anesthesia Type: General Operative Notes Closure Type: primary Estimated Blood Loss (mL): 5 Blood products transfused: none Procedure in detail: Patient was seen in the preoperative area. Risks and benefits of the surgery was discussed with the patient. Informed consent was obtained from the patient and placed in the chart. Surgical site was marked. Patient was taken to the operative room. General anesthesia was administered. Prophylactic antibiotic was given to the patient less than 30 min before the incision was made. Patient was placed into a prone position on the Arnel table. Patient's back was then prepped and draped in the sterile fashion. Time-out was performed at this time. Patient's incision was inspected. There is a a transverse wound due to suture pulling through the skin edges. There is exposed granulation tissue measuring about 3 inches x 8 inches and the depth is less than 1 inch. There is no cellulitis. There is no induration or fluctuance on palpation. The dehiscence was found to be isolated to the subcutaneous layer. At this time using a 10 blade as well as a Collins, unhealthy appearing tissue was excised including skin subcutaneous tissue. After excision all debridement was completed the wound was irrigated copiously with 1 L of sterile normal saline. After the irrigation and debridement was completed the wound was then re-examined. Healthy-appearing tissue was visible on all surfaces of the wound. #1 Nylon suture was used to close the wound in vertical mattress fashion in interrupted fashion. [place] then was placed between the nylon vertical mattress sutures. The wound was closed with some granulation tissue left exposed due to the shallow those of the wound itself. At this time a sterile dressing was applied the patient's wound/incision. Patient was then woken up from anesthesia and transferred recovery room stable condition. There were no complications. Patient will need wound care during the process of healing and as well as after the stitches are removed. Patient will be discharged today. Complications: none Post-operative Condition: stable Disposition: same day surgery Plan for aftercare: Discharge to [facility]
[2020-03-13] MEDS: OXYCODONE IR 5 MG TABLET PO ×2 (13:02→13:59)
--- NOTE | 2020-03-13 13:35 | SUR.PHASEII ---
Report to [facility] in pacu 2, dressing reenforced with abd pads and paper tape per Dr San's instruction. Pt resting comfortably now in bed in own gown from facility, report called to facility by Izabel Ortiz RN. 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
--- NOTE | 2020-03-13 13:41 | SUR.PHASEII ---
Patient brought over to phase 2. PACU nurse reinforced back dressing per physician order. Also stated that they gave report to [facility] nurse.
== END 2020-03-13 14:12 ==
LOC: AC 13:46 → OR 14:15
PROVIDERS: PCP Physician Assistant Medical; Referring Provider Orthopaedic Surgery Orthopaedic Surgery of the Spine; Visit Provider Orthopaedic Surgery Orthopaedic Surgery of the Spine
PROC: (CPT 10180; principal; 2020-03-13 11:30)
DX: T81.31XA Disruption of external operation (surgical) wound, not elsewhere classified, initial encounter (principal); Z98.1 Arthrodesis status; I51.7 Cardiomegaly; E11.42 Type 2 diabetes mellitus with diabetic polyneuropathy; Z79.84 Long term (current) use of oral hypoglycemic drugs; G47.33 Obstructive sleep apnea (adult) (pediatric); Z86.73 Personal history of transient ischemic attack (TIA), and cerebral infarction without residual deficits
CPT/HCPCS: 11042; J0330; J0690; J2405; J2704; J3010

== ENCOUNTER → 2020-09-01 11:02 | Outpatient (CLI) | payer MEDICARE, MEDICAID, SELFPAY ==
[2020-03-12 15:17] VITALS: BMI 41.6
--- NOTE | 2020-09-01 12:18 | DI.CT.S_ITS ---
PROCEDURE: CT ABDOMEN PELVIS W CON INDICATIONS: Ventral hernia without obstruction or gangrene TECHNIQUE: After the administration of oral and intravenous contrast, 5 mm thick sections acquired from the diaphragms to the symphysis. 5 mm thick coronal and sagittal reformats were performed. For radiation dose reduction, the following was used: automated exposure control, adjustment of mA and/or kV according to patient size. COMPARISON: None. FINDINGS: Image quality: Excellent. ABDOMEN: Lung bases: Otherwise left basilar scarring versus atelectasis is present. Lung bases are clear. Heart size is normal. Solid organs: Liver is normal in size and enhancement. Gallbladder is surgically absent . Biliary system is non-dilated. Pancreas enhances normally. Spleen is normal in size and enhancement. There is a low-density right adrenal mass measuring 40 mm diameter which contains an internal 15 mm diameter focus of fat density. No left adrenal nodules. Kidneys are normal in size and enhancement, without hydronephrosis. Right kidney is low lying. Peritoneum and bowel: Stomach, small bowel, and colon loops are normal in caliber and wall thickness. No free fluid or air. Nodes and vessels: No retroperitoneal or mesenteric adenopathy. Aorta and inferior vena cava are normal in caliber. Miscellaneous: There is a large broad-based anterior abdominal pelvic wall hernia containing small and large bowel loops, with a maximal transverse diameter of 32 cm. No evidence of associated bowel strangulation, nor obstruction. PELVIS: Genitourinary: Bladder wall thickness is normal. Miscellaneous: No inguinal hernias or adenopathy. Bones: No suspicious bony lesions. Lumbar spine fusion hardware is present. No vertebral body compression fractures. IMPRESSION: 1. Large anterior abdominal wall hernia containing large and small bowel loops without evidence of associated bowel strangulation, or obstruction. 2. Right adrenal adenomyelolipoma. Dictated by: Bhanu Preciado M.D. on 09/01/2020 at 13:08 Approved by: Bhanu Preciado M.D. on 09/01/2020 at 13:11
== END ==
PROVIDERS: PCP Nurse Practitioner Family; Referring Provider Nurse Practitioner Family; Visit Provider Nurse Practitioner Family
DX: K43.9 Ventral hernia without obstruction or gangrene (principal); D35.01 Benign neoplasm of right adrenal gland; R10.9 Unspecified abdominal pain
CPT/HCPCS: 74177; Q9967

== ENCOUNTER 2021-05-31 14:40 | Emergency (ER) | payer MEDICARE, MEDICAID, SELFPAY ==
[2020-09-04 13:20] VITALS: BMI 41.6
[2021-05-31 14:44] VITALS: BP 145/97; PULSE 91; RESP 20; TEMP 36.8; O2SAT 96
--- NOTE | 2021-05-31 14:49 | DI.US.S_ITS ---
PROCEDURE: US PERIP VENOUS LOW EXTREM RT INDICATIONS: POSTERIOR KNEE PAIN TECHNIQUE: Real-time imaging, as well as color and pulse Doppler interrogation, were performed of the lower extremity deep veins from the inguinal ligament to the popliteal fossa. COMPARISON: [facility], , [facility] VENOUS LOW EXTREM LT, 11/30/2019, 11:08. FINDINGS: The common femoral, femoral and popliteal veins are normally compressible, and free of intraluminal thrombus. Color and pulse Doppler demonstrate normal phasic intraluminal flow. There is normal augmentation response to distal compression maneuver. IMPRESSION: Negative for deep venous thrombosis. Dictated by: David Winchester M.D. on 05/31/2021 at 16:08 Approved by: David Winchester M.D. on 05/31/2021 at 16:08
--- NOTE | 2021-05-31 14:49 | DI.RAD.S_ITS ---
PROCEDURE: XR KNEE RT 3V INDICATIONS: knee pain, unknown injury TECHNIQUE: 3 views of the knee were acquired. COMPARISON: [facility], CR, XR TIBIA FIBULA LT 2V, 02/02/2018, 9:33. [facility], CR, XR KNEE LT 3V, 06/18/2018, 12:49. FINDINGS: Bones: No fractures or dislocations. No suspicious bony lesions. There is mild medial femorotibial joint space narrowing seen, with associated remodeling changes including subchondral sclerosis and osteophyte formation along the jointline. On the sunrise view, there is moderate medial patellofemoral joint space narrowing seen. Osteophyte formation can be seen along the margins of the patella. Soft tissues: No significant joint effusion. No suspicious soft tissue calcifications. IMPRESSION: Age-appropriate bony degenerative changes are seen. If it would be helpful for clinical management decision making, please consider a dedicated, scheduled knee MRI for further evaluation (assuming that there is no contraindication). Dictated by: David Winchester M.D. on 05/31/2021 at 14:24 Approved by: David Winchester M.D. on 05/31/2021 at 14:26
--- NOTE | 2021-05-31 14:51 | ED_ITS ---
HPI - Extremity Problem General Chief complaint: Extremity Problem,Nontraumatic Stated complaint: r knee pain Time Seen by Provider: 05/31/21 14:49 Source: patient and EMS Mode of arrival: EMS History of Present Illness HPI Narrative: 71-year-old female nonsmoker with history of lumbar fusion, diabetes, COPD presents by EMS for evaluation of right knee pain for the past day or so. She states she denies any obvious injury, overuse or twisting. She denies any numbness, tingling or weakness. She states the pain is worse when she moves and improves with rest. She has had no fever or chills. She takes no blood thinners. She has tried gabapentin and Tylenol at home with little to minimal relief. She has had no back pain, lower extremity weakness, loss of control of bowel or bladder Related Data Home Medications Medication Instructions Recorded Confirmed metformin 500 mg tablet 1,000 mg PO BID 02/02/18 09/11/20 gabapentin 600 mg tablet 600 mg PO TID PRN 04/19/18 09/11/20 albuterol sulfate 90 mcg/actuation 2 puff INHALATION Q6H PRN 09/11/20 09/11/20 aerosol inhaler (Ventolin HFA) bupropion HCl 300 mg 24 hr tablet, 200 mg PO BID tab 09/11/20 09/11/20 extended release calcium carbonate 500 mg calcium 500 mg PO DAILY 09/11/20 09/11/20 (1,250 mg) chewable tablet (Calcium 500) ergocalciferol (vitamin D2) 50 mcg 50 mcg PO DAILY 09/11/20 09/11/20 (2,000 unit) capsule fenofibrate 54 mg tablet 54 mg PO DAILY 09/11/20 09/11/20 onabotulinumtoxinA 100 unit 100 unit IM ONCE PRN ea 09/11/20 09/11/20 solution for injection (Botox) ondansetron 4 mg disintegrating 4 mg PO Q8H 09/11/20 09/11/20 tablet prazosin 2 mg capsule 2 mg PO BEDTIME 09/11/20 09/11/20 ubrogepant 50 mg tablet (Ubrelvy) 50 mg PO ONCE 09/11/20 09/11/20 verapamil 80 mg tablet 120 mg PO BID tab 09/11/20 09/11/20 vitamin B complex (B 1 tab PO DAILY 09/11/20 09/11/20 Complex-Vitamin B12) Previous Rx's Medication Instructions Recorded cyclobenzaprine 5 mg tablet 5 mg PO Q8HR PRN #20 tab 01/04/20 clopidogrel 75 mg tablet 75 mg PO DAILY #30 tab 01/25/20 oxycodone 5 mg tablet 5 mg PO Q4HR PRN #30 tab 01/25/20 ketorolac 10 mg tablet 10 mg PO Q6H PRN #14 tab 05/31/21 Allergies Allergy/AdvReac Type Severity Reaction Status Date / Time vancomycin Allergy Intermediate Flushing & Verified 09/11/20 13:25 rash Review of Systems Review of Systems Narrative: GENERAL: Denies chills, fatigue, malaise, fever, sweats. HEENT: Denies sinus pain, ear pain, sore throat, difficulty swallowing, dizziness. RESPIRATORY: Denies dyspnea, cough, wheezing, hemoptysis, sputum. CARDIOVASCULAR: Denies chest pain, palpitations, orthopnea, edema, GASTROINTESTINAL: Denies nausea, vomiting, abdominal pain, diarrhea, constipation, melena. : Denies dysuria, frequency, incontinence, hematuria, urinary retention. MUSCULOSKELETAL: See HPI SKIN: Denies rash, skin lesions, or other NEUROLOGIC: Denies weakness, headache, numbness, change in speech, confusion, seizures, incoordination. PSYCHIATRIC: No concerning psychosocial issues. 12 point review of systems is negative except for those stated above Patient History Medical History Acute kidney injury (~12/2018) Cardiomegaly Depression with anxiety Easy bruisability History of concussion History of recurrent TIAs History of stroke Hyperlipidemia associated with type 2 diabetes mellitus Hypothyroid Migraine Morbid obesity with BMI of 45.0-49.9, adult Neuropathy ABIOLA on CPAP Osteopenia Polyneuropathy Radiculopathy Type 2 diabetes mellitus Vitamin D deficiency Surgical History History of 3 sections History of lumbar spinal fusion (06/27/17) History of lumbar spinal fusion (11/26/19) History of spinal surgery History of ventral hernia repair Hx of umbilical hernia repair S/P cholecystectomy S/P trigger finger release Family History Mother Heart disease Father Heart disease Grandfather Diabetes mellitus Other Family history non-contributory Social History marital status: unknown household members: none Smoking Status: Never smoker alcohol intake: never substance use type: does not use Smoking Status: Never smoker alcohol intake frequency: 0-2 drinks per day Substance Use Type: does not use and painkillers Exam Narrative Exam Narrative: GENERAL: [71] year old patient appears stated age. Well- developed patient, in mild distress. HEAD: Atraumatic. Normocephalic. EYES: Pupils equal round and reactive. Extraocular motions intact. No scleral icterus. No injection or drainage. ENT: Nose without bleeding, purulent drainage. Throat without erythema, tonsillar hypertrophy or exudate. Airway patent. NECK: Trachea midline. Non tender CARDIOVASCULAR: Regular rate and rhythm without murmurs, gallops, or rubs. RESPIRATORY: Clear to auscultation. Breath sounds equal bilaterally. No wheezes, rales, or rhonchi. GASTROINTESTINAL: Abdomen soft, non-tender, nondistended. EXTREMITIES: No edema or joint tenderness. Full range of motion, no ligamentous instability. Pain on palpation of the popliteal region without obvious edema, erythema, warmth or fluctuance. No increased pain with axial loading. BACK: Nontender without deformity or crepitance. No flank tenderness. NEURO: AOx3. SKIN: No rash or erythema of visible areas Initial Vital Signs Initial Vital Signs: Vital Signs Temperature 98.3 F 05/31/21 14:44 Pulse Rate 91 H 05/31/21 14:44 Respiratory Rate 20 05/31/21 14:44 Blood Pressure 145/97 H 05/31/21 14:44 Pulse Oximetry 96 05/31/21 14:44 Course Orders Ordered: ED Orders 05/31/21 14:49 US periph venous low extrem rt Stat XR knee RT 3V Stat Discontinued Medications Ketorolac Tromethamine (Ketorolac 30 Mg/Ml Vial) 30 mg IM NOW ONE Stop: 05/31/21 16:18 Last Admin: 05/31/21 16:29 Dose: 30 mg Documented by: Vital Signs Vital signs: Vital Signs - 8 hr 05/31/21 14:44 Temperature 98.3 F Pulse Rate 91 H Respiratory Rate 20 Blood Pressure 145/97 H Pulse Oximetry 96 MDM - Extremity (Nontraumatic) Imaging Data Extremity x-ray #1: Radiologist's Impression: [address] [place] [id number] XRay Report Signed Patient: Bushra Desai MR#: [id number] : 1950 Acct:[id number] Age/Sex: 71 / F Date of Service: 05/31/21 Loc: ED Accession Number: [id number] ?? Procedure: XR knee RT 3V Ordering Provider: Eliseo De Leon D.O. PROCEDURE:? XR KNEE RT 3V ? INDICATIONS:? knee pain, unknown injury ? TECHNIQUE:? 3 views of the knee were acquired.? ? COMPARISON:? [facility], CR, XR TIBIA FIBULA LT 2V, 02/02/2018, 9:33.? [facility], CR, XR KNEE LT 3V, 06/18/2018, 12:49. ? FINDINGS:? ? Bones:? No fractures or dislocations.? No suspicious bony lesions.? There is mild medial femorotibial joint space narrowing seen, with associated remodeling changes including subchondral sclerosis and osteophyte formation along the jointline.? On the sunrise view, there is moderate medial patellofemoral joint space narrowing seen. Osteophyte formation can be seen along the margins of the patella.? ? Soft tissues:? No significant joint effusion.? No suspicious soft tissue calcifications.? IMPRESSION:? Age-appropriate bony degenerative changes are seen. ? If it would be helpful for clinical management decision making, please consider a dedicated, scheduled knee MRI for further evaluation (assuming that there is no contraindication).? Dictated by: David Winchester M.D. on 05/31/2021 at 14:24 ? ? Approved by: David Winchester M.D. on 05/31/2021 at 14:26 ? [facility] Narrative Medical decision making narrative: Patient presents with pain in right knee in the absence of injury. She has a very reassuring physical exam. Multiple diagnoses considered including osteoarthritis versus sprain strain versus occult fracture versus DVT or even radiating pain from hip and back. Imaging is reassuring. Questions answered to her apparent satisfaction and return precautions have been given Discharge Plan Departure Patient Disposition: Home Clinical Impression: Acute knee pain Qualifiers: Laterality: right Qualified Code(s): M25.561 - Pain in right knee Instructions: DI for Knee Pain Activity Restrictions/Additional Instructions: *You have been diagnosed with [right knee pain. Your exam, xray, and ultrasound are very reassuring ] *What to do: *Please continue to take your regular medications as directed. [x ] New medication prescriptions sent to your pharmacy: [ [facility] in [place]] [ ] New medication written as a paper prescription [ ] No new medications given *Please follow up with your primary care provider in 2-3 days, call for an appointment. Let them know you were seen in the Emergency Department and that we ask that you be seen in follow up. We will electronically transmit a record of today's note if your PCP is in our system *If you do not have a primary care provider please contact the [facility] Resource line at [phone]. They will ask some questions about your medical history and help get you set up with a doctor in the community. *Return to Emergency Department if you should have any new, worsening or concerning symptoms, such as [fever greater than 101 F, shaking chills, worsening pain, persistent vomiting or other bothersome symptoms] Prescriptions: New ketorolac 10 mg tablet 10 mg PO Q6H PRN (Reason: pain) Qty: 14 RF: 0 No Action ondansetron 4 mg tablet,disintegrating 4 mg PO Q8H RF: 0 prazosin 2 mg capsule 2 mg PO BEDTIME RF: 0 Ubrelvy 50 mg tablet 50 mg PO ONCE RF: 0 calcium carbonate [Calcium 500] 500 mg calcium (1,250 mg) tablet,chewable 500 mg PO DAILY RF: 0 albuterol sulfate [Ventolin HFA] 90 mcg/actuation HFA aerosol inhaler 2 puff inhalation Q6H PRNRF: 0 Botox 100 unit recon soln 100 unit IM ONCE PRNRF: 0 ergocalciferol (vitamin D2) 50 mcg (2,000 unit) capsule 50 mcg PO DAILY RF: 0 vitamin B complex [B Complex-Vitamin B12] Tablet 1 tab PO DAILY RF: 0 fenofibrate 54 mg tablet 54 mg PO DAILY RF: 0 cyclobenzaprine 5 mg Tablet 5 mg PO Q8HR PRN (Reason: Spasms) Qty: 20 RF: 0 clopidogrel 75 mg Tablet 75 mg PO DAILY Qty: 30 RF: 0 oxycodone 5 mg Tablet 5 mg PO Q4HR PRN (Reason: pain) Qty: 30 RF: 0 metformin 500 mg Tablet 1,000 mg PO BID RF: 0 gabapentin 600 mg tablet 600 mg PO TID PRN (Reason: pain) RF: 0 verapamil 80 mg tablet 120 mg PO BID RF: 0 bupropion HCl 300 mg tablet extended release 24 hr 200 mg PO BID RF: 0 Referrals: Patty Pederson ARNP [Non-Staff] -
[2021-05-31] MEDS: KETOROLAC 30 MG/ML VIAL IM (16:29)
[2021-05-31 16:51] VITALS: BP 126/57; PULSE 83; RESP 20; O2SAT 98
== END 2021-05-31 17:11 | disposition home or self-care (01) ==
PROVIDERS: Emergency Provider Emergency Medicine; PCP Family Medicine
DX: M25.561 Pain in right knee (principal)
CPT/HCPCS: 73562; 93971; 96372; 99283; J1885

== ENCOUNTER → 2021-07-20 10:45 | Outpatient (CLI) | payer MEDICARE, MEDICAID, SELFPAY ==
[2020-09-04 13:20] VITALS: BMI 41.6
--- NOTE | 2021-07-20 10:54 | DI.CT.S_ITS ---
PROCEDURE: CT LUMBAR SPINE WO CON INDICATIONS: Radiculopathy, lumbar region TECHNIQUE: Noncontrast 3 mm thick sections acquired from the T12 level to the sacrum. Sagittal and coronal reformats were constructed. For radiation dose reduction, the following was used: automated exposure control. COMPARISON: [facility], CT, CT ABDOMEN PELVIS W CON, 09/01/2020, 12:13. [facility], CR, XR LUMBAR SPINE 2 OR 3 VIEWS, 07/02/2021, 14:03. [facility], CR, XR LUMBAR SPINE 2-3V, 11/26/2019, 10:03. [facility], CT, CT LUMBAR SPINE WO CON, 08/22/2019, 11:29. FINDINGS: Image quality: Excellent. Bones: Postsurgical changes compatible with L2-S1 PLIF. Orthopedic hardware is intact. No lucencies identified at the bone-hardware interface. Postsurgical changes compatible with right L2-L3 and L3-L4 partial laminectomies and facetectomies. There is mild L4-L5 anterolisthesis. There is trace L1-L2 retrolisthesis. No acute vertebral body compression fractures. No suspicious lytic or blastic bony lesions. No pars defects. T12-L1: Mild loss of disc height. Vacuum disc phenomenon. Mild, diffuse disc bulge. No central stenosis. No neural foraminal narrowing. No neural compression. L1-L2: Loss of disc height. Vacuum disc phenomenon. Endplate osteophytosis. Mild bilateral facet hypertrophy. Mild narrowing of the central canal. Moderate right and severe left neural foraminal narrowing with compression of the exiting left L1 nerve root. L2-L3: Status post fusion. Mild bilateral facet hypertrophy. No central stenosis. Moderate right and severe left neural foraminal narrowing with compression of the exiting left L2 nerve root. L3-L4: Status post fusion. Mild bilateral facet hypertrophy. No central stenosis. Mild right and severe left neural foraminal narrowing with compression of the exiting right L3 nerve root. L4-L5: Status post fusion. Moderate bilateral facet hypertrophy. No central stenosis. Severe bilateral neural foraminal narrowing with compression of the L4 nerve roots. L5-S1: Status post fusion. Mild bilateral facet hypertrophy. No central stenosis. Moderate left neural foraminal narrowing. No neural compression. Soft tissues: No retroperitoneal masses or hematomas. Visualized aorta is normal in caliber. Cholecystectomy clips. Scarring or atelectasis in the left lung base. Visualized heart is enlarged. 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 IMPRESSION: 1. Postsurgical changes. 2. Multilevel degenerative disc disease. 3. Multilevel facet arthropathy. 4. No severe central canal narrowing. 5. Severe bilateral L4-L5 neural foraminal narrowing with compression of the exiting L4 nerve roots. Severe left L2-L3 and L3-L4 neural foraminal narrowing with compression of the exiting left L2 nerve root and left L3 nerve root. Dictated by: Yris Thomson MD, PhD on 07/20/2021 at 16:40 Approved by: Yris Thomson MD, PhD on 07/20/2021 at 16:51
== END ==
PROVIDERS: PCP Family Medicine; Referring Provider Orthopaedic Surgery Orthopaedic Surgery of the Spine; Visit Provider Orthopaedic Surgery Orthopaedic Surgery of the Spine
DX: M51.16 Intervertebral disc disorders with radiculopathy, lumbar region (principal); M47.26 Other spondylosis with radiculopathy, lumbar region; M47.27 Other spondylosis with radiculopathy, lumbosacral region; Z98.1 Arthrodesis status
CPT/HCPCS: 72131

== ENCOUNTER 2021-09-24 14:03 | Inpatient (IN) | payer MEDICARE, MEDICAID, SELFPAY ==
[2020-09-04 13:20] VITALS: BMI 41.6
[2021-09-24] VITALS (15 sets, daily range): BP systolic 137–185; BP diastolic 76–91; PULSE 87–98; RESP 15–20; TEMP 36.4–37.1; O2SAT 89–97; BMI 46.5; BMI 46.3
--- NOTE | 2021-09-24 14:18 | DI.CT.S_ITS ---
PROCEDURE: CT ANGIO HEAD AND NECK INDICATIONS: 71-year-old female with neurologic deficit, new onset 9:00 p.m. Last night TECHNIQUE: Pre-contrast 4.5 mm thick sections acquired from the foramen magnum to the vertex. After the administration of intravenous contrast, 1 mm thick sections acquired from the aortic arch through the [place]. Post-contrast 4.5 mm thick sections then re-acquired from the foramen magnum to the vertex. COMPARISON: [facility], CT, CT ANGIO HEAD AND NECK, 04/19/2018, 13:09. [facility], MR, MR BRAIN WITHOUT CONTRAST, 12/31/2020, 7:08. [facility], CT, CT ANGIO HEAD, 12/30/2020, 18:58. [facility], CT, CT ANGIO HEAD AND NECK, 01/03/2019, 13:34. FINDINGS: Image quality: Excellent. BRAIN: CSF spaces: Ventricles are normal in size and shape. Basal cisterns are patent. No extra-axial fluid collections. Brain: Focal encephalomalacia and gliosis again noted involving the right superior frontal gyrus, left frontal operculum cortex, and right occipital lingular cortex, all without change from the prior exam. No midline shift. No intracranial bleeds or masses. [place]-white matter interface appears intact. Skull and face: Calvarium and facial bones appear intact, without suspicious lesions. Orbits appear normal. Bilateral intraocular lens replacements noted. Sinuses: Sinuses and mastoids are clear. HEAD CT ANGIOGRAPHY: Anterior circulation: Intracranial internal carotid arteries are normal in size and flow. Trace atherosclerotic plaque in the cavernous segments noted. The flow within the paired anterior cerebral arteries is normal and symmetric. Hypoplasia/aplasia of the right A1 JEANMARIE noted. The in A2 segment is supplied by a widely patent posterior communicating artery. Remainder of the distal vasculature unremarkable. The flow within the middle cerebral arteries is normal and symmetric. The anterior communicating artery is seen. No aneurysms are seen. Within the pre medullary cisterna magna at the cervical medullary junction, there is a small tangle of vessels, with there is possibly early venous filling. Vessels have varying degrees of diameter may reflect stenosis with poststenotic dilatation. Posterior circulation: Visualized portions of the vertebral arteries demonstrate normal caliber, and join to form a normal appearing basilar artery. Flow within the posterior cerebral arteries is normal and symmetric. No aneurysms are seen. 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 The P2 segment is supplied by a widely patent posterior communicating artery. Remainder of the distal vasculature unremarkable. NECK CT ANGIOGRAPHY: Carotid system: Incidental aberrant right subclavian origin. The origins of the common carotid arteries appear patent. The common carotid arteries demonstrate normal caliber and courses. The bifurcation regions are both widely patent. The internal carotid arteries demonstrate normal calibers and courses. Posterior circulation: The origins of the vertebral arteries both appear widely patent. The more superior extracranial portions of both vertebral arteries also demonstrate normal courses and calibers. They join to form a normal appearing basilar artery. Soft tissues: Visualized neck soft tissues demonstrate no suspicious abnormalities. Bones: Multilevel degenerative disc disease and arthropathy with reversal normal cervical lordosis results in severe central stenosis with cord flattening and ventral cord indentation particularly at C4-5 and C5-6, to a lesser degree at C6-7. IMPRESSION: 1. No evidence of large vessel occlusion. 2. Prominent tangle of vessels in the pre medullary cistern at the cervical medullary junction with possible early venous filling may reflect a dural arterial venous malformation or less likely proliferative collateral vessels from focal stenosis or vasculitis. Consider follow-up conventional angiogram to evaluate flow dynamics. 3. Cervical degenerative disc disease and arthropathy results in severe central stenosis with cord flattening and indentation particularly at C4-5 and C5-6 4. Old bifrontal and right occipital cortical infarcts. Any quantitative measurements of ICA stenosis were performed using NASCET criteria. Dictated by: David Garg M.D. on 09/24/2021 at 14:18 Approved by: David Garg M.D. on 09/24/2021 at 15:04
[2021-09-24 14:29] LABS: Add Manual Diff / Slide Review NO; Basophils Absolute Auto 100 /uL (0-100); Basophils Percent Auto 0.8 % (0-2); Eosinophils Absolute Auto 100 /uL (0-450); Eosinophils Percent Auto 1.7 % (2-4); Hematocrit 37.3 % (36-46); Hemoglobin 12.4 g/dL (12.0-16.0); Lymphocytes Absolute Auto 1400 /uL (1100-4500); Lymphocytes Percent Auto 20.1 % (25-40); Mean Corpuscular HGB Conc 33.3 % (30-36); Mean Corpuscular Hemoglobin 29.5 PG (26-34); Mean Corpuscular Volume 88.6 fL (80-100); Monocytes Absolute Auto 600 /uL (0-900); Monocytes Percent Auto 8.1 % (3-14); Neutrophils Absolute Auto 4800 /uL (1500-7000); Neutrophils Percent Auto 69.3 % (50-75); Platelet Count 278 X10^3/uL (150-400); Red Blood Cell Count 4.22 X10^6/uL (4.0-5.2); Red Cell Distribution Width 14.6 % (11.6-14.8); White Blood Cell Count 6.9 X10^3/uL (4.5-11.0)
[2021-09-24 14:46] LABS: Alanine Aminotransferase 19 IU/L (<35); Albumin Globulin Ratio 1.1 (1.0-2.8); Alkaline Phosphatase 90 U/L (38-126); Aspartate Aminotransferase 26 IU/L (14-36); BUN Creatinine Ratio 18.5 (6-22); Bilirubin Total 0.5 mg/dL (0.2-1.3); Blood Urea Nitrogen 17 mg/dL (7-17); Calcium 9.6 mg/dL (8.4-10.2); Carbon Dioxide 28 mmol/L (22-32); Chloride 105 mmol/L (98-107); Estimated Glomerular Filt Rate > 60.0 mL/min (>60); Globulin 3.6 g/dL (1.7-4.1); Glucose 106 mg/dL (80-110); HEMOLYSIS < 15 (0-50); Potassium 4.2 mmol/L (3.4-5.1); Sodium 138 mmol/L (137-145); Total Protein 7.6 g/dL (6.3-8.2)
[2021-09-24 14:47] LABS: Magnesium 1.5 mg/dL (1.6-2.3)
[2021-09-24 14:57] LABS: Troponin I < 0.012 ng/mL (0.01-0.034)
[2021-09-24 15:25] LABS: COVID19 - ADMIT (NP swab/PCR) Negative (Negative)
--- NOTE | 2021-09-24 16:28 | ED_ITS ---
HPI - Neuro Symptoms/Deficit General Chief Complaint: Neuro Symptoms/Deficit Stated Complaint: Slurred Speech Time Seen by Provider: 09/24/21 14:08 Source: patient Mode of arrival: EMS History of Present Illness HPI Narrative: 71-year-old woman with history of multiple orthopedic surgeries including lumbar fusion, prior strokes, mild persistent right-sided weakness post stroke, diabetes, COPD who presents this afternoon by medics with complaints of change to speech pattern and slight right-sided weakness. 9:00 a.m. less light was her last known well. She was seen in an urgent care clinic earlier this morning with complaints that she was having some stuttering and word-finding difficulties, dizziness and 2 falls this morning because of mildly worsened right-sided weakness. She was discharged from the urgent care with instructions for her caregiver to bring her to the emergency department however caregiver took her home and ended up calling [phone]. She presented greater than 14 hours after last known well and will not be a tPA candidate. On Anticoagulants: Yes (plavix) Related Data Home Medications Medication Instructions Recorded Confirmed metformin 500 mg tablet 1,000 mg PO BID 02/02/18 08/27/21 gabapentin 600 mg tablet 600 mg PO TID PRN 04/19/18 08/27/21 albuterol sulfate 90 mcg/actuation 2 puff INHALATION Q6H PRN 09/11/20 08/27/21 aerosol inhaler (Ventolin HFA) bupropion HCl 300 mg 24 hr tablet, 200 mg PO BID tab 09/11/20 08/27/21 extended release calcium carbonate 500 mg calcium 500 mg PO DAILY 09/11/20 08/27/21 (1,250 mg) chewable tablet (Calcium 500) ergocalciferol (vitamin D2) 50 mcg 50 mcg PO DAILY 09/11/20 08/27/21 (2,000 unit) capsule fenofibrate 54 mg tablet 54 mg PO DAILY 09/11/20 08/27/21 onabotulinumtoxinA 100 unit 100 unit IM ONCE PRN ea 09/11/20 08/27/21 solution for injection (Botox) ondansetron 4 mg disintegrating 4 mg PO Q8H 09/11/20 08/27/21 tablet prazosin 2 mg capsule 2 mg PO BEDTIME 09/11/20 08/27/21 ubrogepant 50 mg tablet (Ubrelvy) 50 mg PO ONCE 09/11/20 08/27/21 verapamil 80 mg tablet 120 mg PO BID tab 09/11/20 08/27/21 vitamin B complex (B 1 tab PO DAILY 09/11/20 08/27/21 Complex-Vitamin B12) Previous Rx's Medication Instructions Recorded cyclobenzaprine 5 mg tablet 5 mg PO Q8HR PRN #20 tab 01/04/20 clopidogrel 75 mg tablet 75 mg PO DAILY #30 tab 01/25/20 oxycodone 5 mg tablet 5 mg PO Q4HR PRN #30 tab 01/25/20 ketorolac 10 mg tablet 10 mg PO Q6H PRN #14 tab 05/31/21 clobetasol 0.05 % topical ointment 1 applic TOPICAL QAM AND QPM #60 g 08/14/21 Allergies Allergy/AdvReac Type Severity Reaction Status Date / Time vancomycin Allergy Intermediate Flushing & Verified 08/27/21 11:25 rash Review of Systems Review of Systems Narrative: Pertinent positive and negative findings as per HPI Remainder of review of systems is otherwise unremarkable for Constitutional: Fevers, chills, ENT: No sore throat, neck pain, ear pain CV: Chest pain, palpitations, dyspnea on exertion Respiratory: Cough, wheeze, dyspnea GI: Nausea, vomiting, diarrhea, change in bowel habits, black or bloody stools : Dysuria, hematuria, flank pain MS: joint swelling or warmth Skin: Rashes, nonhealing lesions Neuro: Syncope, tingling Psych: Depression, anxiety, suicidal ideation Endocrine: Fatigue, heat or cold intolerance, very dry skin Hematologic/Lymphatic On Anticoagulants: Yes (plavix) Patient History Medical History Acute kidney injury (~12/2018) Cardiomegaly Depression with anxiety Easy bruisability History of concussion History of recurrent TIAs History of stroke Hyperlipidemia associated with type 2 diabetes mellitus Hypothyroid Migraine Morbid obesity with BMI of 45.0-49.9, adult Neuropathy ABIOLA on CPAP Osteopenia Polyneuropathy Radiculopathy Type 2 diabetes mellitus Vitamin D deficiency Surgical History History of 3 sections History of lumbar spinal fusion (06/27/17) History of lumbar spinal fusion (11/26/19) History of spinal surgery History of ventral hernia repair Hx of umbilical hernia repair S/P cholecystectomy S/P trigger finger release Family History Mother Heart disease Father Heart disease Grandfather Diabetes mellitus Other Family history non-contributory Social History marital status: unknown household members: none Smoking Status: Never smoker alcohol intake: never substance use type: does not use Smoking Status: Never smoker alcohol intake frequency: holidays/special occasions only Substance Use Type: does not use and painkillers Exam Narrative Exam Narrative: General: Healthy appearing, in no acute distress. Well-nourished well-developed HEENT: Moist mucous membranes, normal sclera with reactive pupils, Neck: No JVD, supple Respiratory: Lungs are clear to auscultation, no wheezing no rales no rhonchi. Full and symmetrical air movement Cardiac: Regular rate and rhythm no murmurs no bruits Abdomen: Soft, nontender, good bowel tones, no flank pain Skin: Warm and dry, no rashes Neurologic: Slight stuttering, mild word-finding difficulties slight weakness right upper and right lower extremity edema and on my exam she complains of no sensory deficits. NIH score = 5 Extremities: No trauma, well perfused Psych: Cooperative, appropriate insight and affect NIH Stroke Scale/Score (NIHSS) from [email or web address] on 09/24/2021 NIH Stroke Scale INPUTS: 1A: Level of consciousness ?> 0 = Alert; keenly responsive 1B: Ask month and age ?> 0 = Both questions right 1C: 'Blink eyes' & 'squeeze hands' ?> 0 = Performs both tasks 2: Horizontal extraocular movements ?> 0 = Normal 3: Visual graff ?> 0 = No visual loss 4: Facial palsy ?> 0 = Normal symmetry 5A: Left arm motor drift ?> 0 = No drift for 10 seconds 5B: Right arm motor drift ?> 1 = Drift, but doesn't hit bed 6A: Left leg motor drift ?> 0 = No drift for 5 seconds 6B: Right leg motor drift ?> 1 = Drift, but doesn't hit bed 7: Limb Ataxia ?> 1 = Ataxia in 1 Limb 8: Sensation ?> 0 = Normal; no sensory loss 9: Language/aphasia ?> 1 = Mild-moderate aphasia: some obvious changes, without significant limitation 10: Dysarthria ?> 1 = Mild-moderate dysarthria: slurring but can be understood 11: Extinction/inattention ?> 0 = No abnormality Initial Vital Signs Initial Vital Signs: Vital Signs Temperature 98.8 F 09/24/21 14:06 Pulse Rate 90 09/24/21 14:06 Respiratory Rate 15 09/24/21 14:06 Blood Pressure 164/87 H 09/24/21 14:06 Pulse Oximetry 97 09/24/21 14:06 Course Orders Ordered: ED Orders 09/24/21 14:17 Complete Blood Count AUTO DIFF Stat Comprehensive Metabolic Panel Stat Magnesium Stat Troponin I Stat 09/24/21 14:18 CT angio head and neck Stat 09/24/21 14:19 EKG-12 Lead Stat 09/24/21 14:34 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) Stat Vital Signs Vital signs: Vital Signs - 8 hr 09/24/21 14:06 09/24/21 14:10 09/24/21 14:30 Temperature 98.8 F Pulse Rate 90 91 H 91 H Respiratory Rate 15 18 Blood Pressure 164/87 H Pulse Oximetry 97 95 09/24/21 15:00 09/24/21 15:30 09/24/21 15:45 Temperature Pulse Rate 92 H 89 94 H Respiratory Rate 18 18 16 Blood Pressure 185/81 H Pulse Oximetry 95 93 93 09/24/21 16:00 09/24/21 16:30 Temperature Pulse Rate 87 89 Respiratory Rate 19 19 Blood Pressure 165/78 H 164/87 H Pulse Oximetry 95 95 MDM - Neuro Symptoms/Deficit Lab Data Result diagrams: 09/24/21 14:17 09/24/21 14:17 Labs: Lab Results 09/24/21 09/24/21 09/24/21 Range/Units 14:17 14:17 14:17 WBC 6.9 (4.5-11.0) X10^3/uL RBC 4.22 (4.0-5.2) X10^6/uL Hgb 12.4 (12.0-16.0) g/dL Hct 37.3 (36-46) % MCV 88.6 (80-100) fL MCH 29.5 (26-34) PG MCHC 33.3 (30-36) % RDW 14.6 (11.6-14.8) % Plt Count 278 (150-400) X10^3/uL Neut % (Auto) 69.3 (50-75) % Lymph % (Auto) 20.1 L (25-40) % Wright % (Auto) 8.1 (3-14) % Eos % (Auto) 1.7 L (2-4) % Baso % (Auto) 0.8 (0-2) % Neut # (Auto) 4800 (4640-8646) /uL Lymph # (Auto) 1400 (4568-2226) /uL Wright # (Auto) 600 (0-900) /uL Eos # (Auto) 100 (0-450) /uL Baso # (Auto) 100 (0-100) /uL Sodium 138 (137-145) mmol/L Potassium 4.2 (3.4-5.1) mmol/L Chloride 105 (98-107) mmol/L Carbon Dioxide 28 (22-32) mmol/L BUN 17 (7-17) mg/dL Creatinine 0.92 (0.52-1.04) mg/dL Estimated GFR > 60.0 (>60) mL/min BUN/Creatinine Ratio 18.5 (6-22) Glucose 106 (80-110) mg/dL Calcium 9.6 (8.4-10.2) mg/dL Magnesium 1.5 L (1.6-2.3) mg/dL Total Bilirubin 0.5 (0.2-1.3) mg/dL AST 26 (14-36) IU/L ALT 19 (<35) IU/L Alkaline Phosphatase 90 (38-126) U/L Troponin I < 0.012 (0.01-0.034) ng/mL Total Protein 7.6 (6.3-8.2) g/dL Albumin 4.0 (3.5-5.0) g/dL Globulin 3.6 (1.7-4.1) g/dL Albumin/Globulin Ratio 1.1 (1.0-2.8) SARS-CoV-2 (PCR) (Negative) 09/24/21 Range/Units 14:34 WBC (4.5-11.0) X10^3/uL RBC (4.0-5.2) X10^6/uL Hgb (12.0-16.0) g/dL Hct (36-46) % MCV (80-100) fL MCH (26-34) PG MCHC (30-36) % RDW (11.6-14.8) % Plt Count (150-400) X10^3/uL Neut % (Auto) (50-75) % Lymph % (Auto) (25-40) % Wright % (Auto) (3-14) % Eos % (Auto) (2-4) % Baso % (Auto) (0-2) % Neut # (Auto) (4580-0957) /uL Lymph # (Auto) (5120-5328) /uL Wright # (Auto) (0-900) /uL Eos # (Auto) (0-450) /uL Baso # (Auto) (0-100) /uL Sodium (137-145) mmol/L Potassium (3.4-5.1) mmol/L Chloride (98-107) mmol/L Carbon Dioxide (22-32) mmol/L BUN (7-17) mg/dL Creatinine (0.52-1.04) mg/dL Estimated GFR (>60) mL/min BUN/Creatinine Ratio (6-22) Glucose (80-110) mg/dL Calcium (8.4-10.2) mg/dL Magnesium (1.6-2.3) mg/dL Total Bilirubin (0.2-1.3) mg/dL AST (14-36) IU/L ALT (<35) IU/L Alkaline Phosphatase (38-126) U/L Troponin I (0.01-0.034) ng/mL Total Protein (6.3-8.2) g/dL Albumin (3.5-5.0) g/dL Globulin (1.7-4.1) g/dL Albumin/Globulin Ratio (1.0-2.8) SARS-CoV-2 (PCR) Negative (Negative) Imaging Data CT angiogram head neck: Radiologist's Impression: FINDINGS:? Image quality:? Excellent.? ? BRAIN:? CSF spaces:? Ventricles are normal in size and shape.? Basal cisterns are patent.? No extra-axial fluid collections.? ? Brain:? Focal encephalomalacia and gliosis again noted involving the right superior frontal gyrus, left frontal operculum cortex, and right occipital lingular cortex, all without change from the prior exam.? No midline shift.? No intracranial bleeds or masses. ?Beavers-white matter interface appears intact.? ? Skull and face:? Calvarium and facial bones appear intact, without suspicious lesions.? Orbits appear normal.? Bilateral intraocular lens replacements noted. ? Sinuses:? Sinuses and mastoids are clear.? ? HEAD CT ANGIOGRAPHY:? Anterior circulation:? Intracranial internal carotid arteries are normal in size and flow.? Trace atherosclerotic plaque in the cavernous segments noted.? The flow within the paired anterior cerebral arteries is normal and symmetric.? Hypoplasia/aplasia of the right A1 JEANMARIE noted. The in A2 segment is supplied by a widely patent posterior communicating artery. Remainder of the distal vasculature unremarkable.? The flow within the middle cerebral arteries is normal and symmetric.? The anterior communicat ing artery is seen.? No aneurysms are seen.? ? Within the pre medullary cisterna magna at the cervical medullary junction, there is a small tangle of vessels, with there is possibly early venous filling.? Vessels have varying degrees of diameter may reflect stenosis with poststenotic dilatation.? ? Posterior circulation:? Visualized portions of the vertebral arteries demonstrate normal caliber, and join to form a normal appearing basilar artery.? Flow within the posterior cerebral arteries is normal and symmetric.? No aneurysms are seen.? Hypoplasia/aplasia of the left P1 TRANSPORTATION CONSULTANT noted. The P2 segment is supplied by a widely patent posterior communicating artery. Remainder of the distal vasculature unremarkable. ? NECK CT ANGIOGRAPHY:? Carotid system:? Incidental aberrant right subclavian origin.? The origins of the common carotid arteries appear patent.? The common carotid arteries demonstrate normal caliber and courses.? The bifurcation regions are both widely patent.? The internal carotid arteries demonstrate normal calibers and courses.? ? Posterior circulation:? The origins of the vertebral arteries both appear widely patent.? The more superior extracranial portions of both vertebral arteries also demonstrate normal courses and calibers.? They join to form a normal appearing basilar artery.? ? Soft tissues:? Visualized neck soft tissues demonstrate no suspicious abnormalities.? ? Bones:? Multilevel degenerative disc disease and arthropathy with reversal normal cervical lordosis results in severe central stenosis with cord flattening and ventral cord indentation particularly at C4-5 and C5-6, to a lesser degree at C6-7. ? ? IMPRESSION:? ? 1. No evidence of large vessel occlusion. ? 2. Prominent tangle of vessels in the pre medullary cistern at the cervical medullary junction with possible early venous filling may reflect a dural arterial venous malformation or less likely proliferative collateral vessels from focal stenosis or vasculitis.? Consider follow-up conventional angiogram to evaluate flow dynamics.? ? 3. Cervical degenerative disc disease and arthropathy results in severe central stenosis with cord flattening and indentation particularly at C4-5 and C5-6 ? 4. Old bifrontal and right occipital cortical infarcts. ? Any quantitative measurements of ICA stenosis were performed using NASCET criteria.? ? ? Dictated by: David Garg M.D. on 09/24/2021 at 14:18 ? ? ECG Data Interpretation: Sinus rhythm at a rate of 89 No acute ischemic changes MDM Narrative Medical decision making narrative: 71-year-old woman with prior stroke with worsening symptoms since 9:00 p.m. last night with no evidence of acute intracranial hemorrhage or large vessel occlusion. NIH score equals 5. Because of greater than 14 hours between onset and presentation she is not a tPA candidate. There is no evidence of infection, sepsis, acute coronary syndrome. No alternate explanation for her acute findings. She will be admitted to the hospitalist service with findings for recurrent stroke. Concerns and findings are discussed with the patient. She asked that we call her daughter and update her which we are able to do. She is safe for transfer to the floor Discharge Plan Departure Patient Disposition: Admitted As Inpatient Clinical Impression: Stroke Prescriptions: No Action clobetasol 0.05 % ointment 1 applic topical QAM AND QPM Qty: 60 12RF ondansetron 4 mg tablet,disintegrating 4 mg PO Q8H 0RF prazosin 2 mg capsule 2 mg PO BEDTIME 0RF Ubrelvy 50 mg tablet 50 mg PO ONCE 0RF Rx Instructions: as a single dose; may repeat once in >=2 hours after first dose if needed calcium carbonate [Calcium 500] 500 mg calcium (1,250 mg) tablet,chewable 500 mg PO DAILY 0RF albuterol sulfate [Ventolin HFA] 90 mcg/actuation HFA aerosol inhaler 2 puff inhalation Q6H PRN0RF Botox 100 unit recon soln 100 unit IM ONCE PRN0RF ergocalciferol (vitamin D2) 50 mcg (2,000 unit) capsule 50 mcg PO DAILY 0RF vitamin B complex [B Complex-Vitamin B12] Tablet 1 tab PO DAILY 0RF fenofibrate 54 mg tablet 54 mg PO DAILY 0RF cyclobenzaprine 5 mg Tablet 5 mg PO Q8HR PRN (Reason: Spasms) Qty: 20 0RF clopidogrel 75 mg Tablet 75 mg PO DAILY Qty: 30 0RF oxycodone 5 mg Tablet 5 mg PO Q4HR PRN (Reason: pain) Qty: 30 0RF metformin 500 mg Tablet 1,000 mg PO BID 0RF gabapentin 600 mg tablet 600 mg PO TID PRN (Reason: pain) 0RF verapamil 80 mg tablet 120 mg PO BID 0RF bupropion HCl 300 mg tablet extended release 24 hr 200 mg PO BID 0RF ketorolac 10 mg tablet 10 mg PO Q6H PRN (Reason: pain) Qty: 14 0RF Referrals: Jessy Suarez DO [Primary Care Provider] -
--- NOTE | 2021-09-24 16:48 | PC.NURSE ---
daughter max teague [phone] [facility] to call for update
[2021-09-24] MEDS: HYDROMORPHONE 0.5 MG INJ IV (17:15)
--- NOTE | 2021-09-24 17:16 | DI.MRI.S_ITS ---
PROCEDURE: MR HEAD/BRAIN WO CON INDICATIONS: CVA TECHNIQUE: Non-contrast axial T1 spin echo, axial T2 fast spin echo, sagittal and axial FLAIR, coronal T2 fast spin echo, axial gradient echo, axial diffusion and ADC through the brain. COMPARISON: [facility], CT, CT ANGIO HEAD AND NECK, 09/24/2021, 14:29. FINDINGS: Image quality: Excellent. CSF spaces: Ventricles appear symmetric in size and shape. Basal cisterns are patent. No extra-axial fluid collections. Brain: No intracranial bleeds or mass effects. Small chronic bilateral frontal right occipital lobe infarcts. There is cerebral volume loss for age. There are periventricular and deep white matter chronic small vessel ischemic changes. Brainstem appears normal. Diffusion-weighted images show no acute ischemic insults. No chronic ischemic insults. Multiple flow voids within the pre medullary cistern, as before. Otherwise normal intravascular flow voids are present. Skull and face: Calvarial bone marrow is normal in signal. Orbits are normal. Sinuses: Sinuses and mastoids are clear. IMPRESSION: 1. Volume loss and small vessel ischemic disease. 2. Chronic bilateral infarcts. 3. No acute process. No recent infarct. 4. 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 Dictated by: Bhanu Preciado M.D. on 09/24/2021 at 20:21 Approved by: Bhanu Preciado M.D. on 09/24/2021 at 20:23
--- NOTE | 2021-09-24 17:17 | DI.ECHO.S_ITS ---
[facility]---------+ [facility] +---------+ : : [address] : : : : [id number] : : : : Phone: [phone]+ Echocardiogram Report + + :Name: SUSAN MCFADDEN Study Date: 09/25/2021 Height: 64 in : :[facility] ReadingLocation: Weight: 280 lb : : Gender: Female BSA: 2.3 m2 : :: 1950 Age: 71 yrs BP: 161/78 mmHg: :Reason For Study: CVA : :Ordering Physician: LINDSEY, : :MINNIE Performed By: Yumiko Valdez : :Referring: MINNIE PORTILLO : + + Interpretation Summary The study quality was technically difficult. The ejection fraction is estimated to be 60-65%. Grade II diastolic dysfunction. The right ventricle is borderline dilated. The right ventricular systolic function is normal. The left atrium is mildly dilated. The mitral valve leaflets are mildly calcified. There is mild mitral regurgitation. There is mild tricuspid regurgitation. PASP is approximately 55 to 60 mmHg. Procedure: A two-dimensional transthoracic echocardiogram with color flow and Doppler was performed. The study quality was technically difficult. Comparison is made with the echocardiogram of 12/31/2020. The patient was in sinus rhythm with heart rates between 81-88 bpm during the exam. Left Ventricle: The left ventricle is normal in size and wall thickness. The ejection fraction is estimated to be 60-65%. Grade II diastolic dysfunction. Right Ventricle: The right ventricle is borderline dilated. The right ventricular systolic function is normal. Atria: The left atrium is mildly dilated. The right atrium grossly appears normal in size. There is no Doppler evidence for an interatrial shunt. Mitral Valve: There is mild to moderate mitral annular calcification. The mitral valve leaflets are mildly calcified. The mitral valve mean gradient is 4.9 mmHg. There is mild mitral regurgitation. Aortic Valve: The aortic valve is trileaflet. The aortic valve opens well. There is no aortic valve stenosis. There is trace aortic regurgitation. Tricuspid Valve: The tricuspid valve is normal in structure and function. There is mild tricuspid regurgitation. PASP is approximately 55 to 60 mmHg. Pulmonic Valve: The pulmonic valve is not well visualized. There is trace pulmonic regurgitation. Great Vessels: The aortic root is normal size. The dimensions of the ascending aorta are normal. The IVC is of normal diameter and collapses greater than 50% with a sniff. This suggests a low right atrial pressure of 3 mm Hg. Pericardium/ Pleura There is no pericardial effusion. There is no pleural effusion. MMode/2D Measurements & Calculations LVIDd: 4.5 cm LVOT diam: 2.1 cm LVIDs: 3.0 cm Ao root diam: 3.2 cm FS: 32.9 % asc Aorta Diam: 3.0 cm IVSd: 0.94 cm LVPWd: 0.92 cm LV kiran. diameter/BSA (cm/m^2): 2.0 LV sys. diameter/BSA (cm/m^2): 1.4 LA A2 area: 22.5 cm2 RA long axis: 5.2 cm LA A4 area: 22.0 cm2 RA area: 18.1 cm2 LA length (vol): 5.5 cm RA vol: 54.1 ml LA vol: 77.2 ml RA : 24.0 ml/m2 LA vol index: 34.2 ml/m2 IVC diam: 1.9 cm RVD1 (basal): 4.1 cm TAPSE: 2.1 cm Doppler Measurements & Calculations Ao V2 max: 143.5 cm/sec LVOT Max Rudy: 94.6 cm/sec Ao V2 mean: 94.4 cm/sec LV V1 max P.6 mmHg Ao max P.2 mmHg LV V1 VTI: 18.7 cm Ao mean P.2 mmHg ADOLPH(I,D): 2.5 cm2 Ao V2 VTI: 27.2 cm ADOLPH(V,D): 2.4 cm2 sev ratio: 0.69 ADOLPH indexed to BSA (cm^2/m^2): 1.1 MV E max rudy: 131.4 cm/sec TR max rudy: 360.8 cm/sec MV A max rudy: 155.5 cm/sec TR max P.1 mmHg MV E/A: 0.85 PA V2 max: 85.0 cm/sec Med Peak E' Rudy: 5.4 cm/sec PA V2 mean: 58.3 cm/sec E/E' med: 24.2 PA mean P.6 mmHg Lat Peak E' Rudy: 5.4 cm/sec E/E' lat: 24.5 E/e' average: 24.3 MV dec time: 0.28 sec MVA(VTI): 1.8 cm2 MV V2 mean: 103.4 cm/sec SV(LVOT): 67.3 ml MV mean P.9 mmHg MV V2 VTI: 36.6 cm Reading Physician:01:49 PM
--- NOTE | 2021-09-24 17:21 | P.HP_ITS ---
History of Present Illness History of Present Illness Date Patient Seen: 09/24/21 Time Patient Seen: 17:00 Chief complaint: Slurred Speech Narrative: Ms. Desai is a 71W with PMH CVA with right sided residual weakness, DM, COPD, lumbar fusion who presents with weakness. She states that last night she noted about 9pm she noted she developed right sided weakness that was were than her baseline. She began having word expressing difficulties, with notable stutterin g. This morning she woke up and had two falls due to the worsened right sided weakness. She noted worse weakness in her right leg and right arm/hand. She also notes some numbness in the right cheek. No vision changes. No swallowing changes. She did go to urgent care today, they instructed her to come to the ED, they did go home and then called EMS. In the ED workup was done, vitals notable for high blood pressure 164/87. NIH score of 6. Labs notable for WBC 6.9, hgb 12.4, plts 278, creatinine 0.92, magensium 1.5, trop negative. CT brain showed old stroke with encephalomalacia and gliosis. 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 She was outside the TPA window. She was admitted for further treatment. Patient History Medical History Acute kidney injury (~12/2018) Cardiomegaly Depression with anxiety Easy bruisability History of concussion History of recurrent TIAs History of stroke Hyperlipidemia associated with type 2 diabetes mellitus Hypothyroid Migraine Morbid obesity with BMI of 45.0-49.9, adult Neuropathy ABIOLA on CPAP Osteopenia Polyneuropathy Radiculopathy Type 2 diabetes mellitus Vitamin D deficiency Surgical History History of 3 sections History of lumbar spinal fusion (06/27/17) History of lumbar spinal fusion (11/26/19) History of spinal surgery History of ventral hernia repair Hx of umbilical hernia repair S/P cholecystectomy S/P trigger finger release Family & Social History Family History Mother Heart disease Father Heart disease Grandfather Diabetes mellitus Other Family history non-contributory Social History: household members none Safety & Behavioral: Feels Safe in Current Yes Environment Been Physically Hurt or No Threatened By a Person Tobacco & Substance use: Smoking Status Never smoker alcohol intake never alcohol intake frequency holiday/special occasion Substance Use Type painkillers,does not use Meds Home Medications and Allergies Home Medications Medication Instructions Recorded Confirmed Type metformin 500 mg tablet 1,000 mg PO BID 02/02/18 08/27/21 History gabapentin 600 mg tablet 600 mg PO TID PRN 04/19/18 08/27/21 History cyclobenzaprine 5 mg tablet 5 mg PO Q8HR PRN #20 tab 01/04/20 08/27/21 Rx clopidogrel 75 mg tablet 75 mg PO DAILY #30 tab 01/25/20 08/27/21 Rx oxycodone 5 mg tablet 5 mg PO Q4HR PRN #30 tab 01/25/20 08/27/21 Rx albuterol sulfate 90 mcg/actuation 2 puff INHALATION Q6H PRN 09/11/20 08/27/21 History aerosol inhaler (Ventolin HFA) bupropion HCl 300 mg 24 hr tablet, 200 mg PO BID tab 09/11/20 08/27/21 History extended release calcium carbonate 500 mg calcium 500 mg PO DAILY 09/11/20 08/27/21 History (1,250 mg) chewable tablet (Calcium 500) ergocalciferol (vitamin D2) 50 mcg 50 mcg PO DAILY 09/11/20 08/27/21 History (2,000 unit) capsule fenofibrate 54 mg tablet 54 mg PO DAILY 09/11/20 08/27/21 History onabotulinumtoxinA 100 unit 100 unit IM ONCE PRN ea 09/11/20 08/27/21 History solution for injection (Botox) ondansetron 4 mg disintegrating 4 mg PO Q8H 09/11/20 08/27/21 History tablet prazosin 2 mg capsule 2 mg PO BEDTIME 09/11/20 08/27/21 History ubrogepant 50 mg tablet (Ubrelvy) 50 mg PO ONCE 09/11/20 08/27/21 History verapamil 80 mg tablet 120 mg PO BID tab 09/11/20 08/27/21 History vitamin B complex (B 1 tab PO DAILY 09/11/20 08/27/21 History Complex-Vitamin B12) ketorolac 10 mg tablet 10 mg PO Q6H PRN #14 tab 05/31/21 08/27/21 Rx clobetasol 0.05 % topical ointment 1 applic TOPICAL QAM AND QPM #60 g 08/14/21 08/27/21 Rx Allergies Allergy/AdvReac Type Severity Reaction Status Date / Time vancomycin Allergy Intermediate Flushing & Verified 08/27/21 11:25 rash Review of Systems Review of Systems Narrative: 14 systems reviewed and negative aside from what is noted in HPI Exam Vital Signs (past 8 hours): - 09/24/21 14:06 09/24/21 14:10 09/24/21 14:30 Temperature 98.8 F Pulse Rate 90 91 H 91 H Respiratory Rate 15 18 Blood Pressure 164/87 H Pulse Oximetry 97 95 09/24/21 15:00 09/24/21 15:30 09/24/21 15:45 Temperature Pulse Rate 92 H 89 94 H Respiratory Rate 18 18 16 Blood Pressure 185/81 H Pulse Oximetry 95 93 93 09/24/21 16:00 09/24/21 16:30 09/24/21 17:00 Temperature Pulse Rate 87 89 90 Respiratory Rate 19 19 18 Blood Pressure 165/78 H 164/87 H 156/76 H Pulse Oximetry 95 95 92 Oxygen Delivery Method Room Air Narrative Exam Narrative: GEN: no acute distress HEENT: moist mucous membranes, PERRL NECK: trachea midline, no JVD CV: regular rate and rhythm, no murmurs PULM: clear bilaterally, no wheezes, rhonchi, rales ABD: soft, nontender, nondistended, no organomegaly, normal bowel sounds EXT: warm and well perfused with no edema NEURO: subjective r facial numbness, slight facial asymmetry, 3/5 strength in right lower leg, 4/5 strength in right upper hand, 5/5 strength left upper and lower extremity, upgoing toes on right feet, CN2-12 otherwise intact, stuttering while speaking PSYCH: cooperative, pleasant Objective Labs Result Diagrams: 09/24/21 14:17 09/24/21 14:17 Labs: Laboratory Results - last 24 hr 09/24/21 09/24/21 09/24/21 14:17 14:17 14:17 WBC 6.9 RBC 4.22 Hgb 12.4 Hct 37.3 MCV 88.6 MCH 29.5 MCHC 33.3 RDW 14.6 Plt Count 278 Neut % (Auto) 69.3 Lymph % (Auto) 20.1 L Mcdonald % (Auto) 8.1 Eos % (Auto) 1.7 L Baso % (Auto) 0.8 Neut # (Auto) 4800 Lymph # (Auto) 1400 Mcdonald # (Auto) 600 Eos # (Auto) 100 Baso # (Auto) 100 Sodium 138 Potassium 4.2 Chloride 105 Carbon Dioxide 28 BUN 17 Creatinine 0.92 Estimated GFR > 60.0 BUN/Creatinine Ratio 18.5 Glucose 106 Calcium 9.6 Magnesium 1.5 L Total Bilirubin 0.5 AST 26 ALT 19 Alkaline Phosphatase 90 Troponin I < 0.012 Total Protein 7.6 Albumin 4.0 Globulin 3.6 Albumin/Globulin Ratio 1.1 SARS-CoV-2 (PCR) 09/24/21 14:34 WBC RBC Hgb Hct MCV MCH MCHC RDW Plt Count Neut % (Auto) Lymph % (Auto) Mcdonald % (Auto) Eos % (Auto) Baso % (Auto) Neut # (Auto) Lymph # (Auto) Mcdonald # (Auto) Eos # (Auto) Baso # (Auto) Sodium Potassium Chloride Carbon Dioxide BUN Creatinine Estimated GFR BUN/Creatinine Ratio Glucose Calcium Magnesium Total Bilirubin AST ALT Alkaline Phosphatase Troponin I Total Protein Albumin Globulin Albumin/Globulin Ratio SARS-CoV-2 (PCR) Negative Assessment & Plan Assessment & Plan narrative: Ms. Desai is a 71W with PMH CVA, COPD, morbid obesity, ABIOLA, HTN who presents with right sided weakness, stuttering consistent with acute CVA. 1. Acute CVA with history of multiple old CVA and residual right sided weakness -patient noted to have right sided weakness and stuttering last night, well outside window for tpa -NIH on arrival was 6 -CT head with angio showed old stroke and no large vessel thrombosis or stenosis -was already on plavix, will order for dual antiplatelet with aspirin, plavix -order for high intensity statin -NIH q4 -MRI and ECHO ordered -lipids and a1c ordered -allow for permissive hypertension -PT/OT/speech therapy ordered 2. Headache -has had migraine associated with CVA in past -slight respiratory distress with IV dilaudid -trial tylenol, and consider triptan if continues to have headache 3. COPD -order prn nebs -no exacerbation currently 4. Depression -continue home bupropion 5. Morbid obesity -BMI 46.6, outpatient follow up 6. ABIOLA on CPAP -rt consult for PM cpap 7. HTN -allow for permissive hypertension for now Code: DNR Proxy: Gabbie Roberson, daughter I have utilized all available resources to reconcile patient's home medications. Time Spent With Patient Critical Care time: I spent a total of [] minutes of critical care time on this patient's care today; this time is exclusive of procedural time. Quality MIPS - Admit I confirm the patient?s Advance Care Plan is present, Code status is documented, Surrogate decision maker is in patient?s record [If Yes, STOP here]: Yes
--- NOTE | 2021-09-24 17:28 | PC.NURSE ---
daughter max teague [phone] to be patients primary support person ok to give updates to daughter
--- NOTE | 2021-09-24 18:50 | PC.ADMIT ---
[address] Admission Note: The patient,Bushra Desai,71 y/o, was given written information regarding hospital policies, unit procedures and contact persons. Patient's smoking status: Never smoker. Pt arrived to unit at approx 1745. Oriented to room and call system. VSS. RA. Denies pain. Off unit for MRI at appox 1850. Vital Signs - 8 hr 09/24/21 14:06 09/24/21 14:10 09/24/21 14:30 Temperature 98.8 F Pulse Rate 90 91 H 91 H Respiratory Rate 15 18 Blood Pressure 164/87 H Pulse Oximetry 97 95 09/24/21 15:00 09/24/21 15:30 09/24/21 15:45 Temperature Pulse Rate 92 H 89 94 H Respiratory Rate 18 18 16 Blood Pressure 185/81 H Pulse Oximetry 95 93 93 09/24/21 16:00 09/24/21 16:30 09/24/21 17:00 Temperature Pulse Rate 87 89 90 Respiratory Rate 19 19 18 Blood Pressure 165/78 H 164/87 H 156/76 H Pulse Oximetry 95 95 92 09/24/21 17:20 09/24/21 17:27 Temperature Pulse Rate Respiratory Rate Blood Pressure Pulse Oximetry 89 L 94
[2021-09-24] MEDS: MAGNESIUM SULFATE 2 GM/50 ML PIGGYBACK IV (19:37)
[2021-09-24] MEDS: SODIUM CHLORIDE 0.9% 1,000 ML 75 ML IV (19:37)
[2021-09-24] MEDS: ALBUTEROL/IPRATROPIUM 3 ML AMPUL INH (20:17)
[2021-09-24] MEDS: ATORVASTATIN 20 MG TABLET 80 MG PO (20:43)
[2021-09-24] MEDS: ENOXAPARIN 40 MG/0.4 ML SYRINGE SUBCUT (20:43)
[2021-09-24] MEDS: ACETAMINOPHEN 325 MG TABLET 650 MG PO (21:32)
[2021-09-24] MEDS: SUMAtriptan 25 MG TABLET 50 MG PO (22:04)
[2021-09-25] VITALS (12 sets, daily range): BP systolic 121–167; BP diastolic 63–101; PULSE 79–95; RESP 16–20; TEMP 35.9–37.2; O2SAT 94–100
[2021-09-25 05:57] LABS: Add Manual Diff / Slide Review NO; Basophils Absolute Auto 0 /uL (0-100); Basophils Percent Auto 0.7 % (0-2); Eosinophils Absolute Auto 200 /uL (0-450); Eosinophils Percent Auto 2.8 % (2-4); Hematocrit 37.5 % (36-46); Hemoglobin 12.4 g/dL (12.0-16.0); Lymphocytes Absolute Auto 1400 /uL (1100-4500); Lymphocytes Percent Auto 25.8 % (25-40); Mean Corpuscular HGB Conc 33.1 % (30-36); Mean Corpuscular Hemoglobin 29.6 PG (26-34); Mean Corpuscular Volume 89.6 fL (80-100); Monocytes Absolute Auto 500 /uL (0-900); Monocytes Percent Auto 9.7 % (3-14); Neutrophils Absolute Auto 3400 /uL (1500-7000); Platelet Count 254 X10^3/uL (150-400); Red Blood Cell Count 4.19 X10^6/uL (4.0-5.2); Red Cell Distribution Width 14.1 % (11.6-14.8); White Blood Cell Count 5.6 X10^3/uL (4.5-11.0)
[2021-09-25 06:00] LABS: BUN Creatinine Ratio 19.1 (6-22); Blood Urea Nitrogen 17 mg/dL (7-17); Calcium 9.3 mg/dL (8.4-10.2); Carbon Dioxide 28 mmol/L (22-32); Chloride 106 mmol/L (98-107); Cholesterol 163 mg/dL (140-199); Estimated Glomerular Filt Rate > 60.0 mL/min (>60); Glucose 107 mg/dL (80-110); HDL Cholesterol 47 mg/dL (40-60); HEMOLYSIS < 15 (0-50); LDL Cholesterol Calculated 90 mg/dL (<100); Magnesium 1.9 mg/dL (1.6-2.3); Sodium 138 mmol/L (137-145); Triglycerides 131 mg/dL (35-150)
[2021-09-25 06:15] LABS: Hemoglobin A1C% w Est Avg Glu 6.2 % (4.0-6.0)
[2021-09-25] MEDS: CLOPIDOGREL 75 MG TABLET PO (09:24)
[2021-09-25] MEDS: ENOXAPARIN 40 MG/0.4 ML SYRINGE SUBCUT ×2 (09:25→20:20)
[2021-09-25 09:33] LABS: TSH w/ Reflex to FT4 1.43 uIU/mL (0.47-4.68)
--- NOTE | 2021-09-25 11:20 | PT.IIE ---
Current Diagnoses Cerebral infarction, unspecified (09/24/21) Medical History (Last Reviewed 09/24/21 @ 17:21 by Bossman Daniel MD) Acute kidney injury (~12/2018) Cardiomegaly Depression with anxiety Easy bruisability History of concussion History of recurrent TIAs History of stroke Hyperlipidemia associated with type 2 diabetes mellitus Hypothyroid Migraine Morbid obesity with BMI of 45.0-49.9, adult Neuropathy ABIOLA on CPAP Osteopenia Polyneuropathy Radiculopathy Type 2 diabetes mellitus Vitamin D deficiency Physical Therapy Inpatient Evaluation/Re-Eval M1 PT/OT-IP Prior Functional Status Start: 09/25/21 10:58 Freq: Status: Active Protocol: Document 09/25/21 10:41 MB (Rec: 09/25/21 11:20 MB [id number]) Medical Review Prior Functional Status Medical History Reviewed Yes Diet/Fluid Consistency Regular Communication Communicated needs Mobility and Gait No AD in her apartment and used upright walker when leaving Activities of Daily Living and IADL's Aide assists her weekdays for a couple of hours and takes her to appointments like OPPT. She does not take a bath until aide is there Social History Household Members none Living Arrangements Apartment/Condo Number of Floors (Floors) One Floor Number of Stairs To Enter/Railing? No Home Equipment Front Wheel Walker,Tub Transfer Bench Employment Status Retired M2 PT-IP Current Condition Start: 09/25/21 10:58 Freq: Status: Active Protocol: Document 09/25/21 10:41 MB (Rec: 09/25/21 11:20 MB [id number]) Physical Therapy Current Condition Current Condition Evaluation Date 09/25/21 Treatment Diagnosis Right sided weakness Onset Date Acute on chronic M3 PT-IP Subjective Start: 09/25/21 10:58 Freq: Status: Active Protocol: Document 09/25/21 10:41 MB (Rec: 09/25/21 11:20 MB [id number]) Subjective Physical Therapy Visit Type Type Initial Evaluation Visit Start Time 10:41 Visit Stop Time 10:56 Total Visit Minutes 15 Number of GUIDE WINDER Visits 0 Physical Therapy Visit Comments Patient Comments Pt with OT upon arrival, pt has delayed word finding and occ stutter, does answer most questions Patient Goals To go back home with assist and then go to OPPT Therapy Pain Assessment Pain When Pain Assessed At Rest Pain Present Pain Present Pain Reported Location Head Intensity 2 Scale Used Fortune-Mar (Faces) Pain Management Techniques Re-positioning M4 PT-IP Mobility and Gait Start: 09/25/21 10:58 Freq: Status: Active Protocol: Document 09/25/21 10:41 MB (Rec: 09/25/21 11:20 MB [id number]) PT-Bed Mobility Assessment Supine to Sit Supine to Sit Minimal Assistance,1 Person Assistance,Head of Bed Elevated,Bedrails Scooting Scooting to Edge of Bed Contact Guard Assistance PT-Transfer Assessment Sit to and From Stand Sit to and from Stand Contact Guard Assistance,1 Person Assistance,Use of Upper Extremities Equipment Transfer Assistive Device Gait Belt,Front Wheeled Walker Orthotic/Prosthetic Devices or Brace: No Comments Mobility Comments Pt with SOB/SMITH that is wheezing in nature with all mobility and pt has history of COPD and presents with morbid obesity. All mobility requires a lot of effort and she fatigues quickly. She rolls to the left to reach for rail and HOB increased and then she is able to get up to sitting with light [employer]IC[employer] right hand from PT. Increased effort to scoot to EOB d/t body habitus, shorter arm length and high bed for her height. She does not lose balance but does require heavy B UE support for sitting EOB. Gait Assessment Gait Gait Assistance Required: Standby Assistance Distance (Feet) 5 Able to Maintain Weight Bearing Status Yes During Gait Assistive Devices Assistive Device Gait Belt,Front Wheeled Walker Orthotic/Prosthetic Devices or Brace: No Gait Deviations General Gait Pattern Decreased Stride Length, Decreased Feet Clearance, Flexed Trunk,Wide Based Gait Factors Limiting Gait Function Factors Limiting Gait Function Abnormal Tonal Influences, Decreased Strength,Limited Range of Motion,Poor Balance, Respiratory Distress Comments Gait Comments Pt presents with hemiparetic- type tone right ankle and foot with transfers, gait and lifting leg up for doffing sock sitting on bench in hospital room. She has wide KARRI for gait that is likely d/ t increased body habitus. She presents with decreased step- length and foot clearance for stepping with gait. She requires a lot of energy/ effort/and has increased SMITH with short gait in the room. Pt left with OT for toileting. RW in room is a bit too tall for her but she does like using it at that height. PT-Balance Assessment Sitting Balance and Reactions Static Sitting Balance Ability Good Dynamic Sitting Balance Ability Good Standing Balance and Reactions Static Standing Balance Ability Good Dynamic Standing Balance Ability Good Device Used RW M5 PT-IP Objective Assessments Start: 09/25/21 10:58 Freq: Status: Active Protocol: Document 09/25/21 10:41 MB (Rec: 09/25/21 11:20 MB [id number]) Orientation Orientation/Cognition Level of Alertness Alert Language Function Ability Word Finding Difficulties Safety Awareness Understands Safety Issues Memory Description No Deficits Noted Gross Range of Motion Upper Extremity ROM Impairments Defer to OT Lower Extremity ROM Impairments Some impairment hips and knees d/t increased body habitus and impairment right hand from tonal changes after old strokes, could possibly be exacerbated acutely as well Strength Lower Extremity Strength Assessment Bilaterally Impaired Comments Strength Comments UE strength testing deferred to OT who is in room with PT for evaluation B ankle DF no greater than 3-/ 5 and with tonal changes right ankle, right knee extension 3 /5 and left 3+/5 Coordination Assessment Assessment Coordination Comments With functional movement of donning and doffing socks, pt' s right LE coordination is reduced Sensation Assessment Comments Sensation Comments Pt denies sensory changes B LEs Muscle Tone Comments Muscle Tone Comments Increased tone right ankle PFs M7 PT-IP Assessment and Plan Start: 09/25/21 10:58 Freq: Status: Active Protocol: Document 09/25/21 10:41 MB (Rec: 09/25/21 11:20 MB [id number]) PT Summary Assessment and Plan Potential Rehabilitation Potential Fair Status of Condition at Evaluation Evolving Summary Impairments Pain,ROM,Strength,Balance, Coordination,Bed Mobility, Transfers,Gait,Activity Tolerance Assessment Summary Pt is a 71 y/o female adm to hospital for slurred speech and worse right sided weakness . Pt has a history of right sided weakness, stroke, cervical spine changes, lumbar surgeries, COPD and DM. 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 These could certainly contribute to chronic right sided weakness and her headache. Functionally, pt presents with right sided weakness today in her legs with tonal type movement of her right ankle. She has word- finding trouble and delay with speaking and does appear A&O, answering all questions well. Her increased body mass and wheezing type breathing with normal O2 sat readings make mobility effort-full and more challenging. She will likely con't to do better the more she moves and will decline if she does not move often and so given that she likes her home environment, has some caregiver assist and likes her previous OPPT experiences, going home with 24 hour assist may be the best for her recovery. She will benefit from ongoing acute and post- acute PT to improve mobility, safety and I. Goals Bed Mobility Goal Independent Transfer Goal Independent Gait Goal Independent Gait Distance 50 Days to Meet Goals 5 Frequency of Treatment Frequency Of Treatment Once a Day Treatment Plan Physical Therapy Treatment Plan Bed Mobility Training,Transfer Training,Gait Training, Therapeutic Exercise,Balance Retraining,Discharge Planning, Neuromuscular Re-ed Recommendations To Nursing Amount of Assist Needed 1 Person Assist Discharge Recommendations PT Discharge Recommendations Home with 24/7 Assist Available,Outpatient PT Other Discharge Recommendations Pt currently requires 24/7 assist available. When offered HHPT, she would rather have caregiver take her back to [facility] in [place] when she is ready Transportation Needs at Discharge Private Vehicle
[2021-09-25] MEDS: SODIUM CHLORIDE 0.9% 1,000 ML 75 ML IV (11:55)
--- NOTE | 2021-09-25 12:24 | OT.IP.EVAL ---
Current Diagnoses Cerebral infarction, unspecified (09/24/21) Past Medical History (Last Reviewed 09/24/21 @ 17:21 by Bossman Daniel MD) Acute kidney injury (~12/2018) Cardiomegaly Depression with anxiety Easy bruisability History of 3 sections History of concussion History of lumbar spinal fusion (06/27/17) History of lumbar spinal fusion (11/26/19) History of recurrent TIAs History of spinal surgery History of stroke History of ventral hernia repair Hx of umbilical hernia repair Hyperlipidemia associated with type 2 diabetes mellitus Hypothyroid Migraine Morbid obesity with BMI of 45.0-49.9, adult Neuropathy ABIOLA on CPAP Osteopenia Polyneuropathy Radiculopathy S/P cholecystectomy S/P trigger finger release Type 2 diabetes mellitus Vitamin D deficiency Surgical History (Last Reviewed 09/24/21 @ 17:21 by Bossman Daniel MD) History of 3 sections History of lumbar spinal fusion (06/27/17) History of lumbar spinal fusion (11/26/19) History of spinal surgery History of ventral hernia repair Hx of umbilical hernia repair S/P cholecystectomy S/P trigger finger release Occupational Therapy Inpatient Evaluation/Re-Eval M1 PT/OT-IP Prior Functional Status Start: 09/25/21 10:58 Freq: Status: Active Protocol: Document 09/25/21 10:41 MB (Rec: 09/25/21 11:20 MB [id number]) Medical Review Prior Functional Status Medical History Reviewed Yes Diet/Fluid Consistency Regular Communication Communicated needs Mobility and Gait No AD in her apartment and used upright walker when leaving Activities of Daily Living and IADL's Aide assists her weekdays for a couple of hours and takes her to appointments like OPPT. She does not take a bath until aide is there Social History Household Members none Living Arrangements Apartment/Condo Number of Floors (Floors) One Floor Number of Stairs To Enter/Railing? No Home Equipment Front Wheel Walker,Tub Transfer Bench Employment Status Retired M2 OT-IP Current Condition Start: 09/25/21 12:04 Freq: Status: Active Protocol: Document 09/25/21 10:27 [facility] (Rec: 09/25/21 12:24 [facility] [id number]) Occupational Therapy Current Condition Current Condition Evaluation Date 09/25/21 Treatment Diagnosis Right side weakness Diagnosis Onset Date 09/24/21 M3 OT- IP Subjective and Pain Start: 09/25/21 12:04 Freq: Status: Active Protocol: Document 09/25/21 10:27 [facility] (Rec: 09/25/21 12:24 [facility] [id number]) OT- Subjective Occupational Therapy Visit Type Type Initial Evaluation Visit Start Time 10: Visit Stop Time 11:23 Total Visit Minutes 56 Occupational Therapy Visit Comments Patient Comments Pt agreed to get up. Patient/Caregiver Goals To go home OT Pain Assessment Pain When Pain Assessed At Rest Pain Present Pain Present Pain Reported Location Head Intensity 4 Scale Used Numeric (0 - 10) M4 OT- IP ADL's Start: 09/25/21 12:04 Freq: Status: Active Protocol: Document 09/25/21 10:27 [facility] (Rec: 09/25/21 12:24 [facility] [id number]) OT ZEA-Enjo-Gohgchs Comments OT Self-Feeding Comments NOt at meal time. Pt states not having any difficulty. OT ADL-Grooming General Evaluation Grooming Ability Independent Comments OT Grooming Comments Pt able to stand with FWW for grooming needs. OT ADL-Oral Care General Eval Oral Care Ability Independent OT ADL-Dressing General Eval Lower Body Dressing Ability Minimal Assistance Comments OT Dressing Comments Due to not appropriate height/ set-up for pt needing assist for socks. Pt at home props her feet up on her bed to zakia/doff her socks. OT ADL-Toileting General Evaluation Toileting Ability Standby Assistance Comments OT Toileting Comments Pt able to do her own toileting needs on her own and assist fro IV pole management . OT ADL-Bathing Comments OT Bathing Comments Not performed. Pt has a tub bench at home to assist. M5 OT- IP IADL's Start: 09/25/21 12:04 Freq: Status: Active Protocol: Document 09/25/21 10:27 [facility] (Rec: 09/25/21 12:24 [facility] [id number]) OT-Instrumental Activities of Daily Living Home Safety Awareness Awareness of Need for Assistance at Home Good Awareness Ability to Problem Solve Emergency Able to Problem Solve Situations Home Safety Comments Pt has caregivers form [phone] to assist her from Tuesday to for IADl, showering and errands. Medication Management Medication Management No Deficits Identified Money Management Money Management No Deficits Identified M6 OT- IP Functional Cognition Start: 09/25/21 12:04 Freq: Status: Active Protocol: Document 12/31/21 10:27 [facility] (Rec: 09/25/21 12:24 [facility] [id number]) Cognitive Factors Limiting Selfcare Function Cognitive Ability Level of Alertness Alert Patient Orientation Name,Age,Birthday,Month,Date, Year,Day of Week,Place, Situation Attention Span Ability Capable of Focused Attention, Capable of Sustained Attention Ability to Follow Commands Able to Follow Multi-Step Commands Memory Description No Deficits Noted Safety Awareness No Deficits Noted Problem Solving Ability No deficits Noted Cognitive Tests SLUMS Pt scored 29/30 which implies normal cognition. Pt having difficulty to get the words out and able to identify 13 animals in one minute. Cognitive Comments Cognitive Assessment Comments Intact. Pt having expressive aphasia, pt feels that this is close to her baseline but now just needing a little more time to think and get the words out. OT- Vision and Hearing OT- Hearing Assessment OT- Hearing Assessment WFL OT- Vision Assessment Visual Acuity Glasses For Reading Visual Attentiveness WFL Occular Pursuits WFL Visual Convergence WFL Visual [place] WFL Diplopia Absent M7 OT- IP Mobility and Balance Start: 09/25/21 12:04 Freq: Status: Active Protocol: Document 09/25/21 10:27 [facility] (Rec: 09/25/21 12:24 [facility] [id number]) OT- Bed Mobility Assessment Rolling Type of Rolling Roll to Left Level of Assistance Minimal Assistance OT-Transfer Assessment Sit to and From Stand Sit to and from Stand Contact Guard Assistance Transfers Transfer Ability Standby Assistance Technique Transfer Destination Bed,Chair,Toilet Transfer Technique Stand Step Pivot Devices Transfer Assistive Devices Gait Belt,Front Wheeled Walker Comments Mobility Comments JITENDRA to assist for bed mobility and initially CGA to stand and then SBA when up with the FWW. OT- Gait Assessment Comments Gait Ability Comments close SBA with FWW OT- Balance Assessment Sitting Balance and Reactions Static Sitting Balance Ability Good Dynamic Sitting Balance Ability Good Standing Balance and Reactions Static Standing Balance Ability Good Dynamic Standing Balance Ability Fair M8 OT- IP Objective Assessments Start: 09/25/21 12:04 Freq: Status: Active Protocol: Document 09/25/21 10:27 [facility] (Rec: 09/25/21 12:24 [facility] [id number]) OT Gross Range of Motion Upper Extremity Range of Motion ROM Impairments grossly WFL for AROM OT Strength Comments Strength Comments RUE 3+/5 to 4/5 and LUE 4-/5 to 4/5 OT- Coordination Assessment Upper Extremity Finger to Nose Test Right UE Impaired Comments Coordination Comments Increased time for Right hand M9 OT- IP Assessment and Plan Start: 09/25/21 12:04 Freq: Status: Active Protocol: Document 09/25/21 10:27 [facility] (Rec: 09/25/21 12:24 [facility] [id number]) OT Summary Assessment and Plan Potential Rehabilitation Potential Excellent Analytic Complexity at Evaluation Moderate Summary OT Impairments Pain,Strength,Balance, Functional Mobility,Dressing, Toileting,Bathing,Toilet Transfers,Shower Transfers, Activity Tolerance Progress Towards Goals Progressing Toward Goals Assessment Summary Pt here due to right sided weakness and slurred speech and being worked up for possible CVA versus TIA. Pt's main barriers are decreased dynamic balance and now needing use of FWW to walk as prior did not use a device in the house. Pt also needing JITENDRA for LB dressing needs, however due to having a different set-up at home. Pt states can have a family member stay with her initially when she goes home to assist with her needs and that pt would rather go to an outpt PT versus have home health at this time to work on her balance needs. Goals Self-Feeding Goal Independent Grooming Goal Independent Dressing Goal Independent Toileting Goal Independent Bathing Goal Standby Assistance Toilet Transfer Goal Independent Shower Transfer Goal Independent Days to Meet Goals 5 Frequency of Treatment Frequency Of Treatment Once a Day Treatment Plan OT Treatment Plan ADL Training,Functional Mobility,Patient/Family Education,Discharge Planning Discharge Recommendations OT Discharge Recommendations Home with 18/04 Assist Available,Outpatient PT Transportation Needs at Discharge Private Vehicle
--- NOTE | 2021-09-25 13:16 | PM.PN.1 ---
Subjective Subjective Date Patient Seen: 09/25/21 Time Patient Seen: 08:00 Interval history: She continues to feel weakness on her right side. She continues to have stuttering. Exam Vital Signs (past 8 hours): - 09/25/21 07:00 09/25/21 08:50 09/25/21 11:50 Temperature 98.7 F 99.0 F Pulse Rate 84 81 Respiratory Rate 18 18 Blood Pressure 156/74 H 150/83 H Pulse Oximetry 94 94 95 Oxygen Delivery Method Room Air Oxygen Flow Rate 0 Narrative Exam Narrative: GEN: no acute distress HEENT: moist mucous membranes, PERRL NECK: trachea midline, no JVD CV: regular rate and rhythm, no murmurs PULM: clear bilaterally, no wheezes, rhonchi, rales ABD: soft, nontender, nondistended, no organomegaly, normal bowel sounds EXT: warm and well perfused with no edema NEURO: subjective r facial numbness, slight facial asymmetry, 3/5 strength in right lower leg, 4/5 strength in right upper hand, 5/5 strength left upper and lower extremity, upgoing toes on right feet, CN2-12 otherwise intact, stuttering while speaking PSYCH: cooperative, pleasant Objective Labs Result Diagrams: 09/25/21 05:16 09/25/21 05:16 Labs: Laboratory Results - last 24 hr 09/24/21 09/24/21 09/24/21 14:17 14:17 14:17 WBC 6.9 RBC 4.22 Hgb 12.4 Hct 37.3 MCV 88.6 MCH 29.5 MCHC 33.3 RDW 14.6 Plt Count 278 Neut % (Auto) 69.3 Lymph % (Auto) 20.1 L [place] % (Auto) 8.1 Eos % (Auto) 1.7 L Baso % (Auto) 0.8 Neut # (Auto) 4800 Lymph # (Auto) 1400 [place] # (Auto) 600 Eos # (Auto) 100 Baso # (Auto) 100 Sodium 138 Potassium 4.2 Chloride 105 Carbon Dioxide 28 BUN 17 Creatinine 0.92 Estimated GFR > 60.0 BUN/Creatinine Ratio 18.5 Glucose 106 Hemoglobin A1c Calcium 9.6 Magnesium 1.5 L Total Bilirubin 0.5 AST 26 ALT 19 Alkaline Phosphatase 90 Troponin I < 0.012 Total Protein 7.6 Albumin 4.0 Globulin 3.6 Albumin/Globulin Ratio 1.1 Triglycerides Cholesterol LDL Cholesterol, Calc HDL Cholesterol TSH SARS-CoV-2 (PCR) 09/24/21 09/25/21 09/25/21 14:34 05:16 05:16 WBC 5.6 RBC 4.19 Hgb 12.4 Hct 37.5 MCV 89.6 MCH 29.6 MCHC 33.1 RDW 14.1 Plt Count 254 Neut % (Auto) 61.0 Lymph % (Auto) 25.8 [place] % (Auto) 9.7 Eos % (Auto) 2.8 Baso % (Auto) 0.7 Neut # (Auto) 3400 Lymph # (Auto) 1400 [place] # (Auto) 500 Eos # (Auto) 200 Baso # (Auto) 0 Sodium 138 Potassium 4.0 Chloride 106 Carbon Dioxide 28 BUN 17 Creatinine 0.89 Estimated GFR > 60.0 BUN/Creatinine Ratio 19.1 Glucose 107 Hemoglobin A1c Calcium 9.3 Magnesium 1.9 Total Bilirubin AST ALT Alkaline Phosphatase Troponin I Total Protein Albumin Globulin Albumin/Globulin Ratio Triglycerides 131 Cholesterol 163 LDL Cholesterol, Calc 90 HDL Cholesterol 47 TSH SARS-CoV-2 (PCR) Negative 09/25/21 09/25/21 05:16 05:16 WBC RBC Hgb Hct MCV MCH MCHC RDW Plt Count Neut % (Auto) Lymph % (Auto) Traverse % (Auto) Eos % (Auto) Baso % (Auto) Neut # (Auto) Lymph # (Auto) Traverse # (Auto) Eos # (Auto) Baso # (Auto) Sodium Potassium Chloride Carbon Dioxide BUN Creatinine Estimated GFR BUN/Creatinine Ratio Glucose Hemoglobin A1c 6.2 H Calcium Magnesium Total Bilirubin AST ALT Alkaline Phosphatase Troponin I Total Protein Albumin Globulin Albumin/Globulin Ratio Triglycerides Cholesterol LDL Cholesterol, Calc HDL Cholesterol TSH 1.43 SARS-CoV-2 (PCR) FORMERLY [facility], 1928–1983 Medical History Acute kidney injury (~12/2018) Cardiomegaly Depression with anxiety Easy bruisability History of concussion History of recurrent TIAs History of stroke Hyperlipidemia associated with type 2 diabetes mellitus Hypothyroid Migraine Morbid obesity with BMI of 45.0-49.9, adult Neuropathy ABIOLA on CPAP Osteopenia Polyneuropathy Radiculopathy Type 2 diabetes mellitus Vitamin D deficiency Surgical History History of 3 sections History of lumbar spinal fusion (06/27/17) History of lumbar spinal fusion (11/26/19) History of spinal surgery History of ventral hernia repair Hx of umbilical hernia repair S/P cholecystectomy S/P trigger finger release Family History Mother Heart disease Father Heart disease Grandfather Diabetes mellitus Other Family history non-contributory Social History marital status: unknown household members: none Smoking Status: Never smoker alcohol intake: never substance use type: does not use Assessment & Plan Assessment & Plan narrative: Ms. Desai is a 71W with PMH CVA, COPD, morbid obesity, ABIOLA, HTN who presents with right sided weakness, stuttering consistent with acute CVA. 1. R arm weakness, speech difficulty -patient noted to have right sided weakness and stuttering last night, well outside window for tpa -NIH on arrival was 6 -CT head with angio showed old stroke and no large vessel thrombosis or stenosis -was already on plavix, will order for dual antiplatelet with aspirin, plavix -order for high intensity statin -NIH daily -MRI negative -ECHO ordered -lipids and a1c ordered -allow for permissive hypertension -PT/OT/speech therapy ordered 2. Headache -has had migraine associated with CVA in past -slight respiratory distress with IV dilaudid -trial tylenol, and consider triptan if continues to have headache 3. COPD -order prn nebs -no exacerbation currently 4. Depression -continue home bupropion 5. Morbid obesity -BMI 46.6, outpatient follow up 6. ABIOLA on CPAP -rt consult for PM cpap 7. HTN -allow for permissive hypertension for now Code: DNR Proxy: Gabbie Roberson, daughter I have utilized all available resources to reconcile patient's home medications. Time Spent With Patient Critical Care time: I spent a total of [] minutes of critical care time on this patient's care today; this time is exclusive of procedural time.
--- NOTE | 2021-09-25 14:54 | CM.IDA ---
Initial DCP Assessment Note Pt is a 71 yo female, resident of [place], arrives w/PMH CVA, COPD, morbid obesity, ABIOLA, HTN who presents with right sided weakness, stuttering , MRI has ruled out stroke. Echo pending. PT/OT have evaluated and recommendation is home w/assist and outpatient therapies. PCP: Jessy Suarez Payer: MCR/RYAN Met w/patient this afternoon to introduce role. Patient lives alone in [place] apt [place] Dtr Sade lives in the same apt complex, so she and patient's grand kids assist as needed. Patient has ERIKA care givers that are schedule from [phone] M-Cor[facility]; family assists when cgs are not scheduled. Patient would like to return home upon DC, w/family and cg assist. Patient does not feel she needs HH therapies because she can ask her cgs and/or family to transport her to outpatient appts. Patient cannot recall her E[facility]KA CM's name. Plan: DC home is expected, w/resumption of ERIKA care givers and family support, outpatient therapy KRISTI Gamez Discharge Planning/Care Management CM Discharge Assessment Start: 09/25/21 14:50 Freq: Status: Active Protocol: Document 09/25/21 14:50 JESSICA (Rec: 09/25/21 14:54 JESSICA [id number]) Discharge Planning Assessment Assigned Proposal Manager KRISTI Ragsdale DPOA/Assigned Designee Name Sade Robersontyrone Contact Information [phone] Advance Directives? No Advance Directives on File Yes History Provided By Patient,Medical Record Prior Living Arrangements Apartment/Condo Household Members none Type of transporation used prior to Relies on Others admit Independent with ADL's No Is patient alert and oriented? Yes Needs Assistance With Bathing,Grooming,Meal Prep, Managing Medications,Home Chores / Shopping Comment uses [facility] Comment [facility] agency Comment Home w/resumption of ERIKA cg and family assist on the weekends Comment pt is on Meals on Wheels program Comment no actual barriers noted: just needs good coordination of services. Pt is a very able historian of her ERIKA care plan Transportation Arrangement daughter sade or ERIKA caregiver Whiteboard Updated in Patient Room with Yes name and ext. # of Proposal Manager
[2021-09-25] MEDS: ALBUTEROL/IPRATROPIUM 3 ML AMPUL INH ×2 (14:55→19:48)
[2021-09-25] MEDS: ATORVASTATIN 20 MG TABLET 80 MG PO (20:20)
[2021-09-25] MEDS: ACETAMINOPHEN 325 MG TABLET 650 MG PO (20:20)
[2021-09-25] MEDS: SUMAtriptan 25 MG TABLET 50 MG PO (21:48)
[2021-09-26] MEDS: SODIUM CHLORIDE 0.9% 1,000 ML 75 ML IV (01:01)
[2021-09-26 03:16] VITALS: BP 183/77; PULSE 82; RESP 16; TEMP 36.2; O2SAT 99
[2021-09-26 05:44] LABS: Hematocrit 40.1 % (36-46); Hemoglobin 13.1 g/dL (12.0-16.0); Mean Corpuscular HGB Conc 32.6 % (30-36); Mean Corpuscular Hemoglobin 29.2 PG (26-34); Mean Corpuscular Volume 89.6 fL (80-100); Platelet Count 252 X10^3/uL (150-400); Red Blood Cell Count 4.48 X10^6/uL (4.0-5.2); Red Cell Distribution Width 14.4 % (11.6-14.8); White Blood Cell Count 5.1 X10^3/uL (4.5-11.0)
[2021-09-26 06:00] LABS: Blood Urea Nitrogen 17 mg/dL (7-17); Calcium 9.8 mg/dL (8.4-10.2); Carbon Dioxide 27 mmol/L (22-32); Chloride 108 mmol/L (98-107); Estimated Glomerular Filt Rate > 60.0 mL/min (>60); Glucose 122 mg/dL (80-110); HEMOLYSIS 39 (0-50); Potassium 4.2 mmol/L (3.4-5.1); Sodium 138 mmol/L (137-145)
[2021-09-26 07:40] VITALS: BP 172/93; PULSE 81; RESP 20; TEMP 36.5; O2SAT 97
[2021-09-26 07:45] VITALS: PULSE 81; RESP 20; O2SAT 97
[2021-09-26] MEDS: ALBUTEROL/IPRATROPIUM 3 ML AMPUL INH ×2 (07:45→12:48)
[2021-09-26 09:30] VITALS: O2SAT 96
[2021-09-26] MEDS: INSULIN LISPRO 100 UNIT/ML 3ML VIAL SUBCUT (10:22)
[2021-09-26] MEDS: CLOPIDOGREL 75 MG TABLET PO (10:30)
[2021-09-26] MEDS: SERTRALINE 50 MG TABLET 100 MG PO (10:30)
[2021-09-26] MEDS: ENOXAPARIN 40 MG/0.4 ML SYRINGE SUBCUT (10:36)
--- NOTE | 2021-09-26 11:18 | ST.IPIE ---
Visit Care Team Role Provider Type Jessy Suarez DO Primary Care Provider Non-Staff Specialty: Family Practice Address: [address] [place] [address], [place], [address] Email: Klaudia Pereira MD Emergency Provider Physician Referring Provider Specialty: Emergency Medicine Address: [address] [place] [address], [id number] Email: Bossman Daniel MD Admit Provider Physician Attending Provider Specialty: Hospitalist Address: [address] [place] [address], [phone] Fax: Email: [email or web address] [email or web address] Cerebral infarction, unspecified (09/24/21) Past Medical History (Last Reviewed 09/24/21 @ 17:21 by Bossman Daniel MD) Acute kidney injury (Medical ~12/2018) During SNF stay r/t increased dosing TUMs, hypercalcemia Cardiomegaly (Medical) Depression with anxiety (Medical) Easy bruisability (Medical) History of 3 sections (Medical) History of concussion (Medical) History of lumbar spinal fusion (Medical 06/27/17) L4-S1 TLIF. I&D 07/21/17 History of lumbar spinal fusion (Medical 11/26/19) L2-4 TLIF, L4-S1 laminectomy w/exploration of fusion. Complicated with wound dehiscence, wound vac, multiple I&Ds History of recurrent TIAs (Medical) Botox injections Q3 months History of spinal surgery (Medical) History of stroke (Medical) 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 History of ventral hernia repair (Medical) Hx of umbilical hernia repair (Medical) Hyperlipidemia associated with type 2 diabetes mellitus (Medical) Hypothyroid (Medical) Migraine (Medical) post cva migraine Morbid obesity with BMI of 45.0-49.9, adult (Medical) Neuropathy (Medical) Feet ABIOLA on CPAP (Medical) Osteopenia (Medical) Polyneuropathy (Medical) Radiculopathy (Medical) S/P cholecystectomy (Medical) S/P trigger finger release (Medical) Type 2 diabetes mellitus (Medical) Vitamin D deficiency (Medical) ST IP Initial Evaluation Report NEW CLIENT BANKING SERVICES CLERK Fluency Evaluation Start: 09/26/21 10:42 Freq: Status: Active Protocol: Document 09/26/21 10:42 MG (Rec: 09/26/21 11:18 MG [id number]) Fluency Evaluation Session Time Visit Start Time 10:00 Visit Stop Time 10:40 Total Visit Minutes 40 Visit Information Visit Number 1 Next Note Type Next Note Type Treatment Note Referral Reason for Referral Slurring/Stuttering, hx of CVA History Patient History Pt is 71-year-old female with PMH CVA with right sided residual weakness, DM, COPD, lumbar fusion who presents with weakness. She states that Tuesday evening around 9pm, she developed right sided weakness that was were than her baseline. She began having word expressing difficulties, with notable stuttering. morning she woke up and had two falls due to the worsened right sided weakness. She noted worse weakness in her right leg and right arm/ hand. She also notes some numbness in the right cheek. No vision changes. No swallowing changes. She did go to urgent care today, they instructed her to come to the ED, they did go home and then called EMS. NIH score of [address] brain showed old stroke with encephalomalacia and gliosis. 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 She was outside the TPA window . She was admitted for further treatment. Initial interview was conducted by this NEW CLIENT BANKING SERVICES CLERK with the pt. Pt was agreeable to this NEW CLIENT BANKING SERVICES CLERK entering the room and participating in an evaluation . Pt reports that she receives at least 25 botox injections around her forehead, face, and shoulders to help with migraines. The botox also helps alleviate other symptoms like her dysfluency. Pt reported that her dysfluencies increase when she has a migraine or headache. The pt had a headache during this evaluation time and rated it to be between a 4 and 5. Pt last had botox injections in June and is scheduled for a visit with her doctor to get more in two weeks; reports to get injections every three months. This pt reported she is close to her baseline with the exception of her dysfluencies that have increased. Pt noted that she has received speech therapy in the past when she had a stroke, and she worked on word finding strategies with that NEW CLIENT BANKING SERVICES CLERK. She has since been discharged and hasn't had speech therapy in quite some time. Pt currently has concerns with fluency and word finding difficulties when communicating with others. No swallowing concerns or cognition concerns noted per pt. Per OT note, pt scored a 29/30 on the SLUMS that was administered on 09/25/2021. - Background Family History Family History of Persistent Stuttering No Family History of Recovered Stuttering No Parental Observations Parental Observations Repeating initial sounds of words,Blocking on sounds,Extra words or fillers Patient Expression Emotional Response to Stuttering Awareness of stuttering, Frustration about speaking, Physical tension during stuttering Describe Pt requires extra time to complete thoughts in conversation. When pressure is put on her to speak (i.e., confrontation naming quickly), dysfluencies become more prevalent. Patient History Situations Where Stuttering Decreases/ When she has a headache or Increases migraine, dysfluencies increase Only Nepalese Speaking Yes - Stuttering/Speech/Language Previosly Assessed for Speech/Language Yes: due to CVA Concerns Previous Speech/Language Therapy Yes: due to CVA Previous Therapy Results Discharged per pt Fluency In Situations At Home Sometimes New Situations Sometimes Fluency Affecting Overall Communication At Home Sometimes In New Situations Sometimes - Assessment Behavioral Assessment Results This NEW CLIENT BANKING SERVICES CLERK administered a variety of tasks to the pt and a formal OME with laryngeal palpation. Pt has adequate strength of her articulators that is accompanied at times by rigid movements. Some tension was noted during laryngeal palpation. On diadokinetic rate assessment, the pt's dysfluencies were more prevalent. Pt named 10/10 items, identified all parts in picture scene, and answered all questions presented appropriately with this NEW CLIENT BANKING SERVICES CLERK. A few moments (x2-x3) of word finding difficulty were noted in conversational speech. This NEW CLIENT BANKING SERVICES CLERK went over fluency enhancing strategies (i.e., easy onset) with the pt, identifying tension in the shoulders and neck, diaphragmatic breathing vs chest breathing, word finding difficulties strategies, and a swallow screening. Pt demonstrated using diaphragmic breathing and east onset with this NEW CLIENT BANKING SERVICES CLERK after demonstrations. This NEW CLIENT BANKING SERVICES CLERK noted improvement in fluency when pt used easy onset to begin a sentence (i.e., My name is Bushra). Secondary Behaviors This NEW CLIENT BANKING SERVICES CLERK noted lip pursing and avoiding looking at the speaker when in a moment of dysfluency occurred. Physical Tension Moderate Describe Facial postures appeared to be tense at times, along with some shoulder tension. Prognosis Prognosis Good Based on Pt reporting that symptoms are alleviated when she has botox injections, motivation to work in speech therapy. Therapy Goals Short Term Goals Pt will participate in education re: fluency enhancing strategies, word finding strategies Pt will utilize fluency enhancing strategies with verbal cues in order to increase overall fluency when communicating wants/needs with others. Cash Office Worker Goals Pt will utilize fluency enhancing strategies independently in order to increase overall fluency when communicating wants/needs with others. Recommendations Recommendations Pt would benefit from continued speech therapy in order to provide further education, practice strategies , and answer further questions should they arise. Pt would benefit from continued speech therapy intervention upon discharge from hospital. Follow-Up Plan Plan ST to follow up with pt and execute plan as well as modify the plan as needed. This NEW CLIENT BANKING SERVICES CLERK went over the recommendations to the pt and the pt was in agreement at that time. The pt had no further questions for this NEW CLIENT BANKING SERVICES CLERK upon NEW CLIENT BANKING SERVICES CLERK exiting the room.
--- NOTE | 2021-09-26 12:02 | PT.IPTN ---
Current Diagnoses Cerebral infarction, unspecified (09/24/21) Physical Therapy Treatment Note M2 PT-IP Current Condition Start: 09/25/21 10:58 Freq: Status: Active Protocol: Document 09/25/21 10:41 MB (Rec: 09/25/21 11:20 MB [id number]) Physical Therapy Current Condition Current Condition Evaluation Date 09/25/21 Treatment Diagnosis Right sided weakness Onset Date Acute on chronic M3 PT-IP Subjective Start: 09/25/21 10:58 Freq: Status: Active Protocol: Document 09/26/21 11:48 LJ (Rec: 09/26/21 12:01 LJ [id number]) Subjective Physical Therapy Visit Type Type Treatment Note Visit Start Time 11:20 Visit Stop Time 11:41 Total Visit Minutes 21 Number of STATION WORKER Visits 1 Physical Therapy Visit Comments Patient Comments wants to go home as soon as possible Patient Goals To go back home with assist and then go to OPPT Therapy Pain Assessment Pain When Pain Assessed At Rest Pain Present Pain Present Pain Reported M4 PT-IP Mobility and Gait Start: 09/25/21 10:58 Freq: Status: Active Protocol: Document 09/26/21 11:48 LJ (Rec: 09/26/21 12:01 LJ [id number]) PT-Transfer Assessment Sit to and From Stand Sit to and from Stand Contact Guard Assistance,1 Person Assistance,Use of Upper Extremities Equipment Transfer Assistive Device Gait Belt,Front Wheeled Walker Orthotic/Prosthetic Devices or Brace: No Transfers Transfer Destination Chair Transfer Technique ambulated Comments Mobility Comments Pt sitting in chair upon arrival. Pt willing to get up and ambulate in room with STATION WORKER. CGA for sit<>stand. Pt ambulated from chair around bed x3 SBA and CGA. She returned to chair and lowered herself down using UEs. No LOB or SOB. Gait Assessment Gait Gait Assistance Required: Standby Assistance,Contact Guard Assist Distance (Feet) 90 Able to Maintain Weight Bearing Status Yes During Gait Assistive Devices Assistive Device Gait Belt,Front Wheeled Walker Orthotic/Prosthetic Devices or Brace: No Gait Deviations General Gait Pattern Decreased Stride Length, Decreased Feet Clearance, Flexed Trunk,Wide Based Gait Factors Limiting Gait Function Factors Limiting Gait Function Abnormal Tonal Influences, Decreased Activity Tolerance, Decreased Strength,Limited Range of Motion,Poor Balance Comments Gait Comments See mobility section M5 PT-IP Objective Assessments Start: 09/25/21 10:58 Freq: Status: Active Protocol: Document 09/25/21 10:41 MB (Rec: 09/25/21 11:20 MB [id number]) Orientation Orientation/Cognition Level of Alertness Alert Language Function Ability Word Finding Difficulties Safety Awareness Understands Safety Issues Memory Description No Deficits Noted Gross Range of Motion Upper Extremity ROM Impairments Defer to OT Lower Extremity ROM Impairments Some impairment hips and knees d/t increased body habitus and impairment right hand from tonal changes after old strokes, could possibly be exacerbated acutely as well Strength Lower Extremity Strength Assessment Bilaterally Impaired Comments Strength Comments UE strength testing deferred to OT who is in room with PT for evaluation B ankle DF no greater than 3-/ 5 and with tonal changes right ankle, right knee extension 3 /5 and left 3+/5 Coordination Assessment Assessment Coordination Comments With functional movement of donning and doffing socks, pt' s right LE coordination is reduced Sensation Assessment Comments Sensation Comments Pt denies sensory changes B LEs Muscle Tone Comments Muscle Tone Comments Increased tone right ankle PFs M6 PT-IP Treatment Start: 09/25/21 10:58 Freq: Status: Active Protocol: Document 09/26/21 12:01 LJ (Rec: 09/26/21 12:01 LJ [id number]) Physical Therapy Treatment Education Education Provided Safety M7 PT-IP Assessment and Plan Start: 09/25/21 10:58 Freq: Status: Active Protocol: Document 09/26/21 11:48 LJ (Rec: 09/26/21 12:01 LJ [id number]) PT Summary Assessment and Plan Potential Rehabilitation Potential Fair Status of Condition at Evaluation Evolving Summary Impairments Pain,ROM,Strength,Balance, Coordination,Bed Mobility, Transfers,Gait,Activity Tolerance Assessment Summary Pt ambulates around the room without LOB or SOB. Gait distance improved from yesterday. She is progressing toward goals and will benefit from being discharged home with 24/7 assist and OPPT to improve strength and activity tolerance to return to PLOF. Goals Bed Mobility Goal Independent Transfer Goal Independent Gait Goal Independent Gait Distance 50 Days to Meet Goals 5 Frequency of Treatment Frequency Of Treatment Once a Day Treatment Plan Physical Therapy Treatment Plan Bed Mobility Training,Transfer Training,Gait Training, Therapeutic Exercise,Balance Retraining,Discharge Planning, Neuromuscular Re-ed Recommendations To Nursing Amount of Assist Needed 1 Person Assist Discharge Recommendations PT Discharge Recommendations Home with 24/7 Assist Available,Outpatient PT Other Discharge Recommendations Pt currently requires 24/7 assist available. When offered HHPT, she would rather have caregiver take her back to [facility] in [place] when she is ready
[2021-09-26 12:04] VITALS: BP 164/74; PULSE 82; RESP 18; TEMP 36; O2SAT 96
[2021-09-26 12:50] VITALS: O2SAT 96
--- NOTE | 2021-09-26 12:56 | PC.NURSE ---
Addendum entered by Sol Gordon R.N. 09/26/21 15:09: dc home with written and verbal instructions. via private car with caregiver. Original Note: pt calls apropriately aox3 con't with right sided weakness using a walker and sba to br. Up in chair for meals.
--- NOTE | 2021-09-26 19:21 | P.DS_ITS ---
History of Present Illness History of Present Illness Chief complaint: Slurred Speech Narrative: Ms. Desai is a 71W with PMH CVA with right sided residual weakness, DM, COPD, lumbar fusion who presents with weakness. She states that last night she noted about 9pm she noted she developed right sided weakness that was were than her baseline. She began having word expressing difficulties, with notable stuttering . This morning she woke up and had two falls due to the worsened right sided weakness. She noted worse weakness in her right leg and right arm/hand. She also notes some numbness in the right cheek. No vision changes. No swallowing changes. She did go to urgent care today, they instructed her to come to the ED, they did go home and then called EMS. In the ED workup was done, vitals notable for high blood pressure 164/87. NIH score of 6. Labs notable for WBC 6.9, hgb 12.4, plts 278, creatinine 0.92, magensium 1.5, trop negative. CT brain showed old stroke with encephalomalacia and gliosis. 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 She was outside the TPA window. She was admitted for further treatment. Discharge Providers Provider Date of admission: 09/24/21 17:09 Discharge Date: 09/26/21 Primary care physician: Jessy Suarez DO Consults: 09/24/21 17:16 Consult to Discharge Planning Routine Comment: Consult to Occupational Therapy Evaluate & Treat Comment: Physician Instructions: Evaluate and treat Consult to Physical Therapy Evaluate & Treat Comment: Physician Instructions: Evaluate and Treat Consult to Speech Therapy Evaluate & Treat Comment: Physician Instructions: Evaluate and treat 09/24/21 17:30 Consult to Respiratory Therapy Evaluate & Treat Comment: copd, abiola on pm cpap Physician Instructions: Evaluate and treat 09/24/21 18:41 Consult to Pastoral Services Routine Comment: Pt request Discharge provider: Bossman Daniel MD Summary Hospital Course Discharge Diagnosis: 1. Headache, migraine 2. Right sided weakness, speech stuttering 3. History of CVA, with right sided weakness 4. COPD 5. Depression 6. Morbid obesity 7. ABIOLA on CPAP 8. HTN 9. Premedullary cistern AVMs Hospital Course: Ms. Desai came in to the hospital with a headache, right sided weakness (which she has at baseline, but thought worse than normal), and speech stuttering. She notes she has post cva migraines which bring on these symptoms. She gets botox and imitrex for this. She did get imitrex for this in the hospital. MRI showed no stroke. ECHO showed no acute process. Head imaging showed a premedullary cistern AVM. Discussed with neurology who recommended outpatient follow up with neurology or neuroradiology for AVM. She likely had neurologic symptoms from the migraine as she has waxing waning symptoms that she described, which per neurology is common to have for post-stroke patients. She was discharged with recommendation for follow up with neurology. Exam Vital Signs (past 8 hours): - 09/26/21 12:04 09/26/21 12:50 Temperature 96.8 F L Pulse Rate 82 Respiratory Rate 18 Blood Pressure 164/74 H Pulse Oximetry 96 96 Oxygen Delivery Method Room Air Oxygen Flow Rate 0 Narrative Exam Narrative: GEN: no acute distress HEENT: moist mucous membranes, PERRL NECK: trachea midline, no JVD CV: regular rate and rhythm, no murmurs PULM: clear bilaterally, no wheezes, rhonchi, rales ABD: soft, nontender, nondistended, no organomegaly, normal bowel sounds EXT: warm and well perfused with no edema NEURO: subjective r facial numbness, slight facial asymmetry, 4/5 strength in right lower leg, 4/5 strength in right upper hand, 5/5 strength left upper and lower extremity, upgoing toes on right feet, CN2-12 otherwise intact, stuttering while speaking PSYCH: cooperative, pleasant Objective Labs Result Diagrams: 09/26/21 05:30 09/26/21 05:30 Labs: Laboratory Results - last 24 hr 09/26/21 09/26/21 05:30 05:30 WBC 5.1 RBC 4.48 Hgb 13.1 Hct 40.1 MCV 89.6 MCH 29.2 MCHC 32.6 RDW 14.4 Plt Count 252 Sodium 138 Potassium 4.2 Chloride 108 H Carbon Dioxide 27 BUN 17 Creatinine 0.74 Estimated GFR > 60.0 BUN/Creatinine Ratio 23.0 H Glucose 122 H Calcium 9.8 PFSH Medical History Acute kidney injury (~12/2018) Cardiomegaly Depression with anxiety Easy bruisability History of concussion History of recurrent TIAs History of stroke Hyperlipidemia associated with type 2 diabetes mellitus Hypothyroid Migraine Morbid obesity with BMI of 45.0-49.9, adult Neuropathy ABIOLA on CPAP Osteopenia Polyneuropathy Radiculopathy Type 2 diabetes mellitus Vitamin D deficiency Surgical History History of 3 sections History of lumbar spinal fusion (06/27/17) History of lumbar spinal fusion (11/26/19) History of spinal surgery History of ventral hernia repair Hx of umbilical hernia repair S/P cholecystectomy S/P trigger finger release Family History Mother Heart disease Father Heart disease Grandfather Diabetes mellitus Other Family history non-contributory Social History marital status: unknown household members: none Smoking Status: Never smoker alcohol intake: never substance use type: does not use Discharge Plan Discharge Plan Patient Disposition: Home Health Service Provider Discharge Comment: Ms. Desai came in with a migraine. It was thought she may have had another stroke, but this is negative. She likely had worse speech and weakness that was improving, because of the migraine. She has AVMs in her brain, discussed with neurology and she should have these monitored by her neurologist. Discharge orders & Medications Prescriptions: Continued clobetasol 0.05 % ointment 1 applic topical QAM AND QPM Qty: 60 12RF prazosin 2 mg capsule 2 mg PO BEDTIME 0RF albuterol sulfate [Ventolin HFA] 90 mcg/actuation HFA aerosol inhaler 2 puff inhalation Q6H PRN (Reason: Wheezing) 0RF ergocalciferol (vitamin D2) 50 mcg (2,000 unit) capsule 50 mcg PO DAILY 0RF vitamin B complex [B Complex-Vitamin B12] Tablet 1 tab PO DAILY 0RF fenofibrate 54 mg tablet 54 mg PO DAILY 0RF clopidogrel 75 mg Tablet 75 mg PO DAILY Qty: 30 0RF metformin 500 mg Tablet 1,000 mg PO BID 0RF gabapentin 600 mg tablet 600 mg PO TID PRN (Reason: pain) 0RF verapamil 80 mg tablet 120 mg PO BID 0RF sertraline 100 mg tablet 100 mg PO DAILY 0RF Label Comments: take 1 tablet by mouth once daily for anxiety losartan 50 mg tablet 50 mg PO DAILY 0RF Label Comments: take 1 tablet by mouth once daily Changed bupropion HCl 300 mg tablet extended release 24 hr 300 mg PO DAILY Qty: 0 0RF Follow up/Referrals: [facility] [Provider Group] Jessy Suarez DO [Primary Care Provider] - Diet/Activity/Treatments Diet: Regular Discharge Data Primary Care Provider: Jessy Suarez
== END 2021-09-26 15:08 | disposition home or self-care (01) | DRG 56 ==
LOC: ED 16:52 → AC 17:10
PROVIDERS: Admitting Provider Internal Medicine; Emergency Provider Emergency Medicine; PCP Family Medicine; Referring Provider Emergency Medicine; Visit Provider Internal Medicine
DX: I69.398 Other sequelae of cerebral infarction (principal); Q28.2 Arteriovenous malformation of cerebral vessels; Z68.42 Body mass index [BMI] 45.0-49.9, adult; I69.951 Hemiplegia and hemiparesis following unspecified cerebrovascular disease affecting right dominant side; G43.909 Migraine, unspecified, not intractable, without status migrainosus; R47.02 Dysphasia; E66.01 Morbid (severe) obesity due to excess calories; R29.706 NIHSS score 6; F32.A Depression, unspecified; Z66 Do not resuscitate; I10 Essential (primary) hypertension; J44.9 Chronic obstructive pulmonary disease, unspecified; E78.5 Hyperlipidemia, unspecified; E11.9 Type 2 diabetes mellitus without complications; G47.33 Obstructive sleep apnea (adult) (pediatric); Z79.84 Long term (current) use of oral hypoglycemic drugs; Z20.822 Contact with and (suspected) exposure to COVID-19
CPT/HCPCS: 36415; 70496; 70498; 70551; 80048; 80053; 80061; 82962; 83036; 83735; 84443; 84484; 85025; 85027; 87635; 92521; 93005; 93306; 94640; 94660; 94760; 96374; 97116; 97161; 97166; 97535; 99284; 99285; C9803; J1170; J1650; J1815; J3475; Q9967

== ENCOUNTER 2021-10-26 13:38 | Inpatient (IN) | payer MEDICARE, MEDICAID, SELFPAY ==
[2021-09-24 18:29] VITALS: BMI 46.3
[2021-10-26] VITALS (7 sets, daily range): BP systolic 143–230; BP diastolic 74–112; PULSE 90–105; RESP 19–22; TEMP 36.3–36.9; O2SAT 92–98; BMI 46.7
[2021-10-26 14:23] LABS: COVID19 -Nasal RAPID Negative (Negative)
--- NOTE | 2021-10-26 14:50 | DI.RAD.S_ITS ---
PROCEDURE: XR CHEST 2V INDICATIONS: Hypoxia TECHNIQUE: 2 views of the chest were acquired. COMPARISON: [facility], CR, XR CHEST FOR PICC 1V, 12/22/2019, 11:51. FINDINGS: Surgical changes and devices: None. Lungs and pleura: Lungs are clear. No pneumothorax. Mediastinum: Heart size enlarged. Moderate vascular congestion noted. Left costophrenic angle is blunted. Bones and chest wall: No suspicious bony abnormalities. Soft tissues appear unremarkable. IMPRESSION: Cardiomegaly, moderate vascular congestion and probable left pleural effusion Approved by: David Garg M.D. on 10/26/2021 at 14:59
--- NOTE | 2021-10-26 15:03 | DI.CT.S_ITS ---
PROCEDURE: CT ABDOMEN PELVIS W CON INDICATIONS: RLQ pain, distension, n/v TECHNIQUE: After the administration of intravenous contrast, axial sections acquired from the lung bases to the pubic symphysis. Coronal and sagittal reformats were performed. For radiation dose reduction, the following was used: automated exposure control, adjustment of mA and/or kV according to patient size. COMPARISON: [facility], CT, CT ABDOMEN PELVIS W CON, 09/01/2020, 12:13. FINDINGS: Lower thorax: The lung bases are clear. Heart size normal. No hiatal hernia. Liver: The liver is diffusely decreased in attenuation without focal mass lesion. Biliary system: Cholecystectomy. No intra or extrahepatic bile duct dilatation. Pancreas: Unremarkable without mass or inflammation evident. Spleen: Normal in size and density. Adrenals: Low-density right adrenal mass with focus of fat density again noted, similar prior exam left adrenal gland unremarkable. Reproductive system: Unremarkable as visualized. Urinary system: Normal renal size and attenuation. Left renal cyst remains unchanged. No renal calculi, hydronephrosis, or solid mass present. Urinary bladder unremarkable. Gastrointestinal system: Small bowel is diffusely dilated with wall enhancement. Small bowel diameter measures up to 3.6 cm. No focal transition, however, there does appear to be decompressed small bowel distally within a large ventral hernia. Peritoneal spaces: No mesenteric or retroperitoneal adenopathy. No free air. No free fluid. Vasculature: The IVC, aorta and iliac vasculature are unremarkable. Abdominal wall: Large ventral hernia containing large and small bowel loops remains unchanged as well. Musculoskeletal: Lumbar multilevel interbody fusion with decompression and posterior deacon and screw instrumentation remains stable. No hardware failure loosening. IMPRESSION: 1. Diffuse small bowel dilation with wall enhancement may reflect ileus or enteritis. There is decompressed distal small bowel however. Consider short-term interval follow-up to exclude developing obstruction. 2. Large ventral hernia contains large and small bowel, similar prior exam. 3. Stable extensive lumbar spine fusion, instrumentation and decompression as well as right adrenal adenomyelolipoma Approved by: David Garg M.D. on 10/26/2021 at 15:34
--- NOTE | 2021-10-26 15:07 | DI.CT.S_ITS ---
PROCEDURE: CT HEAD/BRAIN WO CON INDICATIONS: headache TECHNIQUE: Noncontrast 4.5 mm thick angled axial sections acquired from the foramen magnum to the vertex, with coronal and sagittal reformats. For radiation dose reduction, the following was used: automated exposure control, adjustment of mA and/or kV according to patient size. COMPARISON: [facility], CT, CT HEAD/BRAIN WO CON, 01/03/2019, 12:50. FINDINGS: Image quality: Excellent. CSF spaces: Basal cisterns are patent. No extra-axial fluid collections. Ventricles are normal in size and shape. Brain: No midline shift. No intracranial masses or hemorrhage. Beavers-white matter interface is normal. Focal encephalomalacia and gliosis noted in the right middle frontal gyrus, left inferior frontal gyrus, and right occipital lingual gyrus, similar to the prior exam. No evidence of acute hemorrhage or mass effect Skull and face: Calvarium and visualized facial bones are intact, without suspicious lesions. Incidental hyperostosis frontalis interna noted. Bilateral intraocular lens replacements noted. Sinuses: Visualized sinuses and mastoids are clear. 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 No intracranial hemorrhage or mass effect. Approved by: David Garg M.D. on 10/26/2021 at 15:21
--- NOTE | 2021-10-26 15:24 | ED.NAVMDI ---
HPI - Nausea/Vomiting/Diarrhea <Brenna Malcolm PA-C - Last Filed: 10/26/21 18:21> General Chief complaint: Nausea/Vomiting/Diarrhea Stated complaint: Nausea, dehydration Time Seen by Provider: 10/26/21 14:27 Source: patient and EMS Mode of arrival: EMS History of Present Illness HPI Narrative: 71-year-old female with past medical history COPD, diabetes, depression, sleep apnea, stroke, hypertension, hyperlipidemia, ventral hernia presents to the ED with 5 days of intractable nausea, vomiting, diarrhea. Patient states she has been having a hard time keeping down fluids, solids. Patient states abdominal cramping in the right lower quadrant. Patient endorses a history of a ventral hernia. Patient endorses multiple abdominal surgeries including C-sections and hernia repairs. Patient denies fever, chills, chest pain, dysuria, syncope. Denies hematochezia, melena. states she has experience some shortness of breath over the last 5 days. Denies cough, sputum production, wheezing. Denies recent URI. Patient also complains of a headache for the last 2 weeks, describes the headache as dull all all over. Patient has a history of migraines, for which she sees a neurologist. Patient states that her headache is somewhat different than her regular migraines which tend to occur on the right side. Related Data Home Medications Medication Instructions Recorded Confirmed metformin 500 mg tablet 1,000 mg PO BID 02/02/18 09/24/21 gabapentin 600 mg tablet 600 mg PO TID PRN 04/19/18 09/24/21 albuterol sulfate 90 mcg/actuation 2 puff INHALATION Q6H PRN 09/11/20 09/24/21 aerosol inhaler (Ventolin HFA) ergocalciferol (vitamin D2) 50 mcg 50 mcg PO DAILY 09/11/20 09/24/21 (2,000 unit) capsule fenofibrate 54 mg tablet 54 mg PO DAILY 09/11/20 09/24/21 prazosin 2 mg capsule 2 mg PO BEDTIME 09/11/20 09/24/21 verapamil 80 mg tablet 120 mg PO BID tab 09/11/20 09/24/21 vitamin B complex (B 1 tab PO DAILY 09/11/20 09/24/21 Complex-Vitamin B12) losartan 50 mg tablet 50 mg PO DAILY 09/24/21 09/24/21 sertraline 100 mg tablet 100 mg PO DAILY 09/24/21 09/24/21 Previous Rx's Medication Instructions Recorded clopidogrel 75 mg tablet 75 mg PO DAILY #30 tab 01/25/20 clobetasol 0.05 % topical ointment 1 applic TOPICAL QAM AND QPM #60 g 08/14/21 bupropion HCl 300 mg 24 hr tablet, 300 mg PO DAILY #0 tab 09/26/21 extended release Allergies Allergy/AdvReac Type Severity Reaction Status Date / Time vancomycin Allergy Intermediate Flushing & Verified 08/27/21 11:25 rash Review of Systems <Brenna Malcolm PA-C - Last Filed: 10/26/21 18:21> Review of Systems ROS Unobtainable: All systems reviewed & are unremarkable except as noted in HPI and below Constitutional Constitutional: Denies chills, Reports fatigue, Denies fever(s), Denies frequent falls, Reports lethargy and Reports weakness Eyes Eyes: Denies change in vision, Denies eye discharge, Denies irritation and Denies loss of vision ENT Ears, Nose, Mouth, and Throat: Denies change in voice, Denies dizziness, Denies neck pain, Denies sore throat and Denies throat swelling Cardiovascular Cardiovascular: Denies chest pain, Denies irregular heart rhythm, Denies lightheadedness, Denies palpitations, Reports dyspnea, Denies dyspnea on exertion and Denies orthopnea Respiratory Respiratory: Denies cough, Reports dyspnea, Denies dyspnea on exertion and Denies wheezing Gastrointestinal Gastrointestinal: Reports abdominal pain, Denies change in bowel habits, Denies diarrhea, Reports nausea and Reports vomiting Genitourinary Genitourinary: Denies hematuria, Denies dysuria, Denies flank pain, Denies urinary incontinence and Denies urinary urgency Musculoskeletal Musculoskeletal: Denies back pain, Denies muscle weakness, Denies neck pain, Denies numbness and Denies tingling Integumentary/Breasts Skin/Breast: Denies pruritus, Denies erythema, Denies rash and Denies wounds Neurologic Neurologic: Denies behavioral changes, Denies confusion, Denies dizziness, Denies frequent falls, Denies loss of vision, Denies numbness, Denies tingling and Reports weakness Psychiatric Psychiatric: Denies anxiety, Denies behavioral changes, Denies confusion, Denies depression, Denies homicidal ideation and Denies suicidal ideation Endocrine Endocrine: Reports fatigue, Denies flushing and Denies palpitations Hematologic/Lymphatic Hematologic/Lymphatic: Denies easy bruising Allergic/Immunologic Allergic/Immunologic: Denies urticaria, Denies throat swelling and Denies wheezing Patient History <Brenna Malcolm PA-C - Last Filed: 10/26/21 18:21> Medical History Acute kidney injury (~12/2018) Cardiomegaly Depression with anxiety Easy bruisability History of concussion History of recurrent TIAs History of stroke Hyperlipidemia associated with type 2 diabetes mellitus Hypothyroid Migraine Morbid obesity with BMI of 45.0-49.9, adult Neuropathy ABIOLA on CPAP Osteopenia Polyneuropathy Radiculopathy Type 2 diabetes mellitus Vitamin D deficiency Surgical History History of 3 sections History of lumbar spinal fusion (06/27/17) History of lumbar spinal fusion (11/26/19) History of spinal surgery History of ventral hernia repair Hx of umbilical hernia repair S/P cholecystectomy S/P trigger finger release Family History Mother Heart disease Father Heart disease Grandfather Diabetes mellitus Other Family history non-contributory Social History marital status: unknown household members: none Smoking Status: Never smoker alcohol intake: never substance use type: does not use Smoking Status: Never smoker alcohol intake frequency: 0-2 drinks per day Substance Use Type: does not use and painkillers Exam <Brenna Malcolm PA-C - Last Filed: 10/26/21 18:21> Initial Vital Signs Initial Vital Signs: Vital Signs Temperature 98.4 F 10/26/21 13:45 Pulse Rate 104 H 10/26/21 13:45 Respiratory Rate 22 10/26/21 13:45 Blood Pressure 199/112 H 10/26/21 13:45 Pulse Oximetry 92 10/26/21 13:45 Const General: cooperative, healthy appearing and comfortable [facility] Head: normal to inspection Eyes General: appearance normal, both eyes and all related structures Neck Neck: normal visual inspection Chest Chest: normal inspection of the chest Resp Effort & Inspection: normal respiratory effort Auscultation: clear to auscultation bilaterally Cardio Rate: regular rate Rhythm: regular rhythm GI Other: Abdomen appears distended, tender to palpation especially in the right lower quadrant. Palpable ventral hernia. No CVA tenderness. General: No CVA tenderness Back/Spine/Pelvis Back: normal to inspection Skin General: no rashes or lesions noted Neuro General: patient alert, patient awake and patient oriented x3 Extrem General: normal to inspection Psych Appearance: grossly normal <Klaudia Pereira MD - Last Filed: 10/26/21 18:32> Initial Vital Signs Initial Vital Signs: Vital Signs Temperature 98.4 F 10/26/21 13:45 Pulse Rate 104 H 10/26/21 13:45 Respiratory Rate 22 10/26/21 13:45 Blood Pressure 199/112 H 10/26/21 13:45 Pulse Oximetry 92 10/26/21 13:45 Course <Brenna Malcolm PA-C - Last Filed: 10/26/21 18:21> Orders Ordered: ED Orders 10/26/21 13:42 COVID19 -Nasal swab/Pre-Proc Stat 10/26/21 13:43 EKG-12 Lead Stat 10/26/21 14:43 Urinalysis and Microscopic Stat Urine Culture Stat 10/26/21 14:50 CXR [XR chest 2V] Stat 10/26/21 15:03 CT abdomen pelvis w con Stat 10/26/21 15:07 CT head/brain wo con Stat 10/26/21 15:40 Complete Blood Count AUTO DIFF Stat Comprehensive Metabolic Panel Stat D Dimer Stat Lactate (Lactic Acid) Stat Lipase Stat NT-proBNP (BNP-Adult 18+) Stat Procalcitonin Stat Troponin I Stat Discontinued Medications Acetaminophen (Acetaminophen 325 Mg Tablet) 975 mg PO NOW ONE Stop: 10/26/21 15:07 Last Admin: 10/26/21 16:15 Dose: 975 mg Documented by: BHARATHI Ceftriaxone Sodium 1,000 mg/ (Sodium Chloride) 100 mls @ 200 mls/hr IV NOW ONE Stop: 10/26/21 17:52 Last Infusion: 10/26/21 18:28 Dose: 0 mls/hr Documented by: Admin: 10/26/21 18:00 Dose: 200 mls/hr Documented by: BHARATHI Ketorolac Tromethamine (Ketorolac 30 Mg/Ml Vial) 15 mg IV NOW ONE Stop: 10/26/21 15:07 Last Admin: 10/26/21 16:16 Dose: 15 mg Documented by: BHARATHI Losartan Potassium (Losartan 50 Mg Tablet) 50 mg PO NOW ONE Stop: 10/26/21 16:56 Last Admin: 10/26/21 17:10 Dose: 50 mg Documented by: BHARATHI Metoclopramide HCl (Metoclopramide 10 Mg/2 Ml Inj) 10 mg IV NOW ONE Stop: 10/26/21 15:07 Last Admin: 10/26/21 16:15 Dose: 10 mg Documented by: BHARATHI Ondansetron HCl (Ondansetron 4 Mg/2 Ml Inj) 4 mg IV NOW ONE Stop: 10/26/21 13:44 Last Admin: 10/26/21 14:05 Dose: Not Given Documented by: ATAYLOR Prazosin HCl (Prazosin 1 Mg Capsule) 2 mg PO NOW ONE Stop: 10/26/21 16:57 Last Admin: 10/26/21 17:09 Dose: 2 mg Documented by: BHARATHI Verapamil HCl (Verapamil 120 Mg Tablet) 120 mg PO NOW ONE Stop: 10/26/21 16:57 Last Admin: 10/26/21 17:10 Dose: 120 mg Documented by: BHARATHI Vital Signs Vital signs: Vital Signs - 8 hr 10/26/21 13:45 10/26/21 16:22 10/26/21 17:14 Temperature 98.4 F Pulse Rate 104 H 96 H 96 H Respiratory Rate 22 19 20 Blood Pressure 199/112 H 230/102 H 143/86 H Pulse Oximetry 92 98 93 10/26/21 17:49 Temperature Pulse Rate 100 H Respiratory Rate 20 Blood Pressure 158/101 H Pulse Oximetry 93 <Klaudia Pereira MD - Last Filed: 10/26/21 18:32> Orders Ordered: ED Orders 10/26/21 13:42 COVID19 -Nasal swab/Pre-Proc Stat 10/26/21 13:43 EKG-12 Lead Stat 10/26/21 14:43 Urinalysis and Microscopic Stat Urine Culture Stat 10/26/21 14:50 CXR [XR chest 2V] Stat 10/26/21 15:03 CT abdomen pelvis w con Stat 10/26/21 15:07 CT head/brain wo con Stat 10/26/21 15:40 Complete Blood Count AUTO DIFF Stat Comprehensive Metabolic Panel Stat D Dimer Stat Lactate (Lactic Acid) Stat Lipase Stat NT-proBNP (BNP-Adult 18+) Stat Procalcitonin Stat Troponin I Stat Discontinued Medications Acetaminophen (Acetaminophen 325 Mg Tablet) 975 mg PO NOW ONE Stop: 10/26/21 15:07 Last Admin: 10/26/21 16:15 Dose: 975 mg Documented by: BHARATHI Ceftriaxone Sodium 1,000 mg/ (Sodium Chloride) 100 mls @ 200 mls/hr IV NOW ONE Stop: 10/26/21 17:52 Last Infusion: 10/26/21 18:28 Dose: 0 mls/hr Documented by: Admin: 10/26/21 18:00 Dose: 200 mls/hr Documented by: BHARATHI Ketorolac Tromethamine (Ketorolac 30 Mg/Ml Vial) 15 mg IV NOW ONE Stop: 10/26/21 15:07 Last Admin: 10/26/21 16:16 Dose: 15 mg Documented by: BHARATHI Losartan Potassium (Losartan 50 Mg Tablet) 50 mg PO NOW ONE Stop: 10/26/21 16:56 Last Admin: 10/26/21 17:10 Dose: 50 mg Documented by: BHARATHI Metoclopramide HCl (Metoclopramide 10 Mg/2 Ml Inj) 10 mg IV NOW ONE Stop: 10/26/21 15:07 Last Admin: 10/26/21 16:15 Dose: 10 mg Documented by: BHARATHI Ondansetron HCl (Ondansetron 4 Mg/2 Ml Inj) 4 mg IV NOW ONE Stop: 10/26/21 13:44 Last Admin: 10/26/21 14:05 Dose: Not Given Documented by: ATAYLOR Prazosin HCl (Prazosin 1 Mg Capsule) 2 mg PO NOW ONE Stop: 10/26/21 16:57 Last Admin: 10/26/21 17:09 Dose: 2 mg Documented by: BHARATHI Verapamil HCl (Verapamil 120 Mg Tablet) 120 mg PO NOW ONE Stop: 10/26/21 16:57 Last Admin: 10/26/21 17:10 Dose: 120 mg Documented by: BHARATHI Vital Signs Vital signs: Vital Signs - 8 hr 10/26/21 13:45 10/26/21 16:22 10/26/21 17:14 Temperature 98.4 F Pulse Rate 104 H 96 H 96 H Respiratory Rate 22 19 20 Blood Pressure 199/112 H 230/102 H 143/86 H Pulse Oximetry 92 98 93 10/26/21 17:49 Temperature Pulse Rate 100 H Respiratory Rate 20 Blood Pressure 158/101 H Pulse Oximetry 93 MDM - Nausea/Vomiting/Diarrhea <Brenna Malcolm PA-C - Last Filed: 10/26/21 18:21> Lab Data Lab results narrative: UA positive for UTI Result diagrams: 10/26/21 15:40 10/26/21 15:40 Labs: Lab Results 10/26/21 10/26/21 10/26/21 Range/Units 13:42 13:42 14:43 WBC (4.5-11.0) X10^3/uL RBC (4.0-5.2) X10^6/uL Hgb (12.0-16.0) g/dL Hct (36-46) % MCV (80-100) fL MCH (26-34) PG MCHC (30-36) % RDW (11.6-14.8) % Plt Count (150-400) X10^3/uL Neut % (Auto) (50-75) % Lymph % (Auto) (25-40) % [place] % (Auto) (3-14) % Eos % (Auto) (2-4) % Baso % (Auto) (0-2) % Neut # (Auto) (1234-3724) /uL Lymph # (Auto) (6426-2925) /uL [place] # (Auto) (0-900) /uL Eos # (Auto) (0-450) /uL Baso # (Auto) (0-100) /uL D-Dimer (<230) ng/mL Sodium (137-145) mmol/L Potassium (3.4-5.1) mmol/L Chloride (98-107) mmol/L Carbon Dioxide (22-32) mmol/L BUN (7-17) mg/dL Creatinine (0.52-1.04) mg/dL Estimated GFR (>60) mL/min BUN/Creatinine Ratio (6-22) Glucose (80-110) mg/dL Lactate (0.7-2.1) mmol/L Calcium (8.4-10.2) mg/dL Total Bilirubin (0.2-1.3) mg/dL AST (14-36) IU/L ALT (<35) IU/L Alkaline Phosphatase (38-126) U/L Troponin I (0.01-0.034) ng/mL NT-Pro-B Natriuret Pep (<125) pg/mL Total Protein (6.3-8.2) g/dL Albumin (3.5-5.0) g/dL Globulin (1.7-4.1) g/dL Albumin/Globulin Ratio (1.0-2.8) Lipase (23-300) U/L Procalcitonin (<0.5) ng/mL Urine Color Yellow Urine Appearance Cloudy Urine pH 7.0 (4.5-8.0) Ur Specific [place] 1.020 (1.000-1.035) Urine Protein 2+ H (Negative) Urine Glucose (UA) Negative (Negative) g/dL Urine Ketones Negative (NEGATIVE) Urine Occult Blood Trace-intact (Negative) Urine Nitrate Negative (Negative) Urine Bilirubin Negative (NEGATIVE) Urine Urobilinogen 0.2 (0.2) E.U./dL Ur Leukocyte Esterase Negative (NEGATIVE) Urine RBC 1-5/hpf (0-5/HPF) Urine WBC 5-10/hpf H (0-5/HPF) Ur Squamous Epith Cells 0-1 /hpf (0-5/HPF) Urine Bacteria Many (>30) H (None) Ur Culture Indicated? Specimen cultured SARS-CoV-2 (PCR) Cancelled Negative 10/26/21 10/26/21 10/26/21 Range/Units 15:40 15:40 15:40 WBC 12.7 H (4.5-11.0) X10^3/uL RBC 4.82 (4.0-5.2) X10^6/uL Hgb 14.1 (12.0-16.0) g/dL Hct 43.1 (36-46) % MCV 89.4 (80-100) fL MCH 29.1 (26-34) PG MCHC 32.6 (30-36) % RDW 14.8 (11.6-14.8) % Plt Count 281 (150-400) X10^3/uL Neut % (Auto) 89.0 H (50-75) % Lymph % (Auto) 7.2 L (25-40) % [place] % (Auto) 3.2 (3-14) % Eos % (Auto) 0.2 L (2-4) % Baso % (Auto) 0.4 (0-2) % Neut # (Auto) 74137 H (4694-4104) /uL Lymph # (Auto) 900 L (7053-6899) /uL [place] # (Auto) 400 (0-900) /uL Eos # (Auto) 0 (0-450) /uL Baso # (Auto) 100 (0-100) /uL D-Dimer 295 H (<230) ng/mL Sodium 139 (137-145) mmol/L Potassium 4.4 (3.4-5.1) mmol/L Chloride 101 (98-107) mmol/L Carbon Dioxide 34 H (22-32) mmol/L BUN 17 (7-17) mg/dL Creatinine 0.87 (0.52-1.04) mg/dL Estimated GFR > 60.0 (>60) mL/min BUN/Creatinine Ratio 19.5 (6-22) Glucose 139 H (80-110) mg/dL Lactate (0.7-2.1) mmol/L Calcium 9.8 (8.4-10.2) mg/dL Total Bilirubin 0.4 (0.2-1.3) mg/dL AST 25 (14-36) IU/L ALT 18 (<35) IU/L Alkaline Phosphatase 98 (38-126) U/L Troponin I (0.01-0.034) ng/mL NT-Pro-B Natriuret Pep (<125) pg/mL Total Protein 8.0 (6.3-8.2) g/dL Albumin 4.1 (3.5-5.0) g/dL Globulin 3.9 (1.7-4.1) g/dL Albumin/Globulin Ratio 1.1 (1.0-2.8) Lipase 135 (23-300) U/L Procalcitonin (<0.5) ng/mL Urine Color Urine Appearance Urine pH (4.5-8.0) Ur Specific [place] (1.000-1.035) Urine Protein (Negative) Urine Glucose (UA) (Negative) g/dL Urine Ketones (NEGATIVE) Urine Occult Blood (Negative) Urine Nitrate (Negative) Urine Bilirubin (NEGATIVE) Urine Urobilinogen (0.2) E.U./dL Ur Leukocyte Esterase (NEGATIVE) Urine RBC (0-5/HPF) Urine WBC (0-5/HPF) Ur Squamous Epith Cells (0-5/HPF) Urine Bacteria (None) Ur Culture Indicated? SARS-CoV-2 (PCR) 10/26/21 10/26/21 10/26/21 Range/Units 15:40 15:40 15:40 WBC (4.5-11.0) X10^3/uL RBC (4.0-5.2) X10^6/uL Hgb (12.0-16.0) g/dL Hct (36-46) % MCV (80-100) fL MCH (26-34) PG MCHC (30-36) % RDW (11.6-14.8) % Plt Count (150-400) X10^3/uL Neut % (Auto) (50-75) % Lymph % (Auto) (25-40) % [place] % (Auto) (3-14) % Eos % (Auto) (2-4) % Baso % (Auto) (0-2) % Neut # (Auto) (3709-0253) /uL Lymph # (Auto) (8992-9895) /uL [place] # (Auto) (0-900) /uL Eos # (Auto) (0-450) /uL Baso # (Auto) (0-100) /uL D-Dimer (<230) ng/mL Sodium (137-145) mmol/L Potassium (3.4-5.1) mmol/L Chloride (98-107) mmol/L Carbon Dioxide (22-32) mmol/L BUN (7-17) mg/dL Creatinine (0.52-1.04) mg/dL Estimated GFR (>60) mL/min BUN/Creatinine Ratio (6-22) Glucose (80-110) mg/dL Lactate 1.4 (0.7-2.1) mmol/L Calcium (8.4-10.2) mg/dL Total Bilirubin (0.2-1.3) mg/dL AST (14-36) IU/L ALT (<35) IU/L Alkaline Phosphatase (38-126) U/L Troponin I < 0.012 (0.01-0.034) ng/mL NT-Pro-B Natriuret Pep 364 H (<125) pg/mL Total Protein (6.3-8.2) g/dL Albumin (3.5-5.0) g/dL Globulin (1.7-4.1) g/dL Albumin/Globulin Ratio (1.0-2.8) Lipase (23-300) U/L Procalcitonin 0.04 (<0.5) ng/mL Urine Color Urine Appearance Urine pH (4.5-8.0) Ur Specific [place] (1.000-1.035) Urine Protein (Negative) Urine Glucose (UA) (Negative) g/dL Urine Ketones (NEGATIVE) Urine Occult Blood (Negative) Urine Nitrate (Negative) Urine Bilirubin (NEGATIVE) Urine Urobilinogen (0.2) E.U./dL Ur Leukocyte Esterase (NEGATIVE) Urine RBC (0-5/HPF) Urine WBC (0-5/HPF) Ur Squamous Epith Cells (0-5/HPF) Urine Bacteria (None) Ur Culture Indicated? SARS-CoV-2 (PCR) Point of Care Testing Glucose POC 116 Urine Dip Bedside Urine Glucose Negative Bedside Urine Bilirubin - Negative Bedside Urine Ketone - Negative Urine Specific [place] 1.025 Bedside Urine Occult Blood +/- Bedside Urine pH 6.0 Bedside Urine Protein ++ 100 Bedside Urine Urobilinogen - Negative Bedside Urine Nitrite - Negative Bedside Urine Leukocytes - Negative Esterase Imaging Data CT scan - abdomen/pelvis: Radiologist's Impression: PROCEDURE:? CT ABDOMEN PELVIS W CON ? INDICATIONS:? RLQ pain, distension, n/v ? TECHNIQUE:? After the administration of intravenous contrast, axial sections acquired from the lung bases to the pubic symphysis.? Coronal and sagittal reformats were performed.? For radiation dose reduction, the following was used:? automated exposure control, adjustment of mA and/or kV according to patient size.? ? COMPARISON:? [facility], CT, CT ABDOMEN PELVIS W CON, 09/01/2020, 12:13. ? FINDINGS: ? Lower thorax: The lung bases are clear.? Heart size normal.? No hiatal hernia. ? Liver: The liver is diffusely decreased in attenuation without focal mass lesion. ? Biliary system:? Cholecystectomy.? No intra or extrahepatic bile duct dilatation. ? Pancreas:? Unremarkable without mass or inflammation evident. ? Spleen:? Normal in size and density. ? Adrenals:? Low-density right adrenal mass with focus of fat density again noted, similar prior exam left adrenal gland unremarkable. ? Reproductive system:? Unremarkable as visualized. ? Urinary system:? Normal renal size and attenuation.? Left renal cyst remains unchanged.? No renal calculi, hydronephrosis, or solid mass present.? Urinary bladder unremarkable. ? Gastrointestinal system:? Small bowel is diffusely dilated with wall enhancement.? Small bowel diameter measures up to 3.6 cm.? No focal transition, however, there does appear to be decompressed small bowel distally within a large ventral hernia. ? Peritoneal spaces:? No mesenteric or retroperitoneal adenopathy.? No free air.? No free fluid.? ? Vasculature:? The IVC, aorta and iliac vasculature are unremarkable. ? Abdominal wall:? Large ventral hernia containing large and small bowel loops remains unchanged as well. ? Musculoskeletal:? Lumbar multilevel interbody fusion with decompression and posterior deacon and screw instrumentation remains stable.? No hardware failure loosening. ? IMPRESSION: ? 1. Diffuse small bowel dilation with wall enhancement may reflect ileus or enteritis.? There is decompressed distal small bowel however.? Consider short-term interval follow-up to exclude developing obstruction.? ? 2. Large ventral hernia contains large and small bowel, similar prior exam. ? 3. Stable extensive lumbar spine fusion, instrumentation and decompression as well as right adrenal adenomyelolipoma ? Approved by: David Garg M.D. on 10/26/2021 at 15:34? Chest x-ray: Radiologist's Impression: PROCEDURE:? CT ABDOMEN PELVIS W CON ? INDICATIONS:? RLQ pain, distension, n/v ? TECHNIQUE:? After the administration of intravenous contrast, axial sections acquired from the lung bases to the pubic symphysis.? Coronal and sagittal reformats were performed.? For radiation dose reduction, the following was used:? automated exposure control, adjustment of mA and/or kV according to patient size.? ? COMPARISON:? [facility], CT, CT ABDOMEN PELVIS W CON, 09/01/2020, 12:13. ? FINDINGS: ? Lower thorax: The lung bases are clear.? Heart size normal.? No hiatal hernia. ? Liver: The liver is diffusely decreased in attenuation without focal mass lesion. ? Biliary system:? Cholecystectomy.? No intra or extrahepatic bile duct dilatation. ? Pancreas:? Unremarkable without mass or inflammation evident. ? Spleen:? Normal in size and density. ? Adrenals:? Low-density right adrenal mass with focus of fat density again noted, similar prior exam left adrenal gland unremarkable. ? Reproductive system:? Unremarkable as visualized. ? Urinary system:? Normal renal size and attenuation.? Left renal cyst remains unchanged.? No renal calculi, hydronephrosis, or solid mass present.? Urinary bladder unremarkable. ? Gastrointestinal system:? Small bowel is diffusely dilated with wall enhancement.? Small bowel diameter measures up to 3.6 cm.? No focal transition, however, there does appear to be decompressed small bowel distally within a large ventral hernia. ? Peritoneal spaces:? No mesenteric or retroperitoneal adenopathy.? No free air.? No free fluid.? ? Vasculature:? The IVC, aorta and iliac vasculature are unremarkable. ? Abdominal wall:? Large ventral hernia containing large and small bowel loops remains unchanged as well. ? Musculoskeletal:? Lumbar multilevel interbody fusion with decompression and posterior deacon and screw instrumentation remains stable.? No hardware failure loosening. ? IMPRESSION: ? 1. Diffuse small bowel dilation with wall enhancement may reflect ileus or enteritis.? There is decompressed distal small bowel however.? Consider short-term interval follow-up to exclude developing obstruction.? ? 2. Large ventral hernia contains large and small bowel, similar prior exam. ? 3. Stable extensive lumbar spine fusion, instrumentation and decompression as well as right adrenal adenomyelolipoma ? Approved by: David Garg M.D. on 10/26/2021 at 15:34? CT scan - head: Radiologist's Impression: PROCEDURE:? CT HEAD/BRAIN WO CON ? INDICATIONS:? headache ? TECHNIQUE:? Noncontrast 4.5 mm thick angled axial sections acquired from the foramen magnum to the vertex, with coronal and sagittal reformats.? For radiation dose reduction, the following was used:? automated exposure control, adjustment of mA and/or kV according to patient size.? ? COMPARISON:? [facility], CT, CT HEAD/BRAIN WO CON, 01/03/2019, 12:50. ? FINDINGS:? Image quality:? Excellent.? ? CSF spaces:? Basal cisterns are patent.? No extra-axial fluid collections.? Ventricles are normal in size and shape.? ? Brain:? No midline shift.? No intracranial masses or hemorrhage.? [place]-white matter interface is normal.? Focal encephalomalacia and gliosis noted in the right middle frontal gyrus, left inferior frontal gyrus, and right occipital lingual gyrus, similar to the prior exam.? No evidence of acute hemorrhage or mass effect ? Skull and face:? Calvarium and visualized facial bones are intact, without suspicious lesions.? Incidental hyperostosis frontalis interna noted.? Bilateral intraocular lens replacements noted. ? Sinuses:? Visualized sinuses and mastoids are clear.? ? IMPRESSION:? ? Stable multifocal old cortical infarcts.? No intracranial hemorrhage or mass effect. ? ? ? Approved by: David Garg M.D. on 10/26/2021 at 15:21? ECG Data Interpretation: Sinus tachycardia. No acute ST-T changes. No axis deviation. MDM Narrative Medical decision making narrative: 71-year-old female with past medical history COPD, diabetes, depression, sleep apnea, stroke, hypertension, hyperlipidemia, ventral hernia presents to the ED with 5 days of intractable nausea, vomiting. Concern for strangulated/incarcerated hernia versus bowel obstruction versus appendicitis versus gastroenteritis versus dehydration versus hypertensive urgency versus emergency versus COPD exacerbation versus pneumonia versus COVID-19 infection versus ACS versus acute heart failure versus PE versus UTI Will order chest x-ray, EKG, labs, troponin, BNP, D-dimer, lactate, UA, CT abdomen pelvis, CT head. Will give IV fluids, treat headache with Toradol, Tylenol, Reglan. Will reassess. UA positive for UTI. CT shows possible ileus versus enteritis versus developing obstruction. Will start ceftriaxone. Consulted hospitalist Mackenzie Bradley, admitted for observation. <Klaudia Pereira MD - Last Filed: 10/26/21 18:32> Lab Data Labs: Lab Results 10/26/21 10/26/21 10/26/21 Range/Units 13:42 13:42 14:43 WBC (4.5-11.0) X10^3/uL RBC (4.0-5.2) X10^6/uL Hgb (12.0-16.0) g/dL Hct (36-46) % MCV (80-100) fL MCH (26-34) PG MCHC (30-36) % RDW (11.6-14.8) % Plt Count (150-400) X10^3/uL Neut % (Auto) (50-75) % Lymph % (Auto) (25-40) % [place] % (Auto) (3-14) % Eos % (Auto) (2-4) % Baso % (Auto) (0-2) % Neut # (Auto) (1128-0897) /uL Lymph # (Auto) (5752-2307) /uL [place] # (Auto) (0-900) /uL Eos # (Auto) (0-450) /uL Baso # (Auto) (0-100) /uL D-Dimer (<230) ng/mL Sodium (137-145) mmol/L Potassium (3.4-5.1) mmol/L Chloride (98-107) mmol/L Carbon Dioxide (22-32) mmol/L BUN (7-17) mg/dL Creatinine (0.52-1.04) mg/dL Estimated GFR (>60) mL/min BUN/Creatinine Ratio (6-22) Glucose (80-110) mg/dL Lactate (0.7-2.1) mmol/L Calcium (8.4-10.2) mg/dL Total Bilirubin (0.2-1.3) mg/dL AST (14-36) IU/L ALT (<35) IU/L Alkaline Phosphatase (38-126) U/L Troponin I (0.01-0.034) ng/mL NT-Pro-B Natriuret Pep (<125) pg/mL Total Protein (6.3-8.2) g/dL Albumin (3.5-5.0) g/dL Globulin (1.7-4.1) g/dL Albumin/Globulin Ratio (1.0-2.8) Lipase (23-300) U/L Procalcitonin (<0.5) ng/mL Urine Color Yellow Urine Appearance Cloudy Urine pH 7.0 (4.5-8.0) Ur Specific [place] 1.020 (1.000-1.035) Urine Protein 2+ H (Negative) Urine Glucose (UA) Negative (Negative) g/dL Urine Ketones Negative (NEGATIVE) Urine Occult Blood Trace-intact (Negative) Urine Nitrate Negative (Negative) Urine Bilirubin Negative (NEGATIVE) Urine Urobilinogen 0.2 (0.2) E.U./dL Ur Leukocyte Esterase Negative (NEGATIVE) Urine RBC 1-5/hpf (0-5/HPF) Urine WBC 5-10/hpf H (0-5/HPF) Ur Squamous Epith Cells 0-1 /hpf (0-5/HPF) Urine Bacteria Many (>30) H (None) Ur Culture Indicated? Specimen cultured SARS-CoV-2 (PCR) Cancelled Negative 10/26/21 10/26/21 10/26/21 Range/Units 15:40 15:40 15:40 WBC 12.7 H (4.5-11.0) X10^3/uL RBC 4.82 (4.0-5.2) X10^6/uL Hgb 14.1 (12.0-16.0) g/dL Hct 43.1 (36-46) % MCV 89.4 (80-100) fL MCH 29.1 (26-34) PG MCHC 32.6 (30-36) % RDW 14.8 (11.6-14.8) % Plt Count 281 (150-400) X10^3/uL Neut % (Auto) 89.0 H (50-75) % Lymph % (Auto) 7.2 L (25-40) % [place] % (Auto) 3.2 (3-14) % Eos % (Auto) 0.2 L (2-4) % Baso % (Auto) 0.4 (0-2) % Neut # (Auto) 32607 H (3376-7243) /uL Lymph # (Auto) 900 L (8651-2165) /uL [place] # (Auto) 400 (0-900) /uL Eos # (Auto) 0 (0-450) /uL Baso # (Auto) 100 (0-100) /uL D-Dimer 295 H (<230) ng/mL Sodium 139 (137-145) mmol/L Potassium 4.4 (3.4-5.1) mmol/L Chloride 101 (98-107) mmol/L Carbon Dioxide 34 H (22-32) mmol/L BUN 17 (7-17) mg/dL Creatinine 0.87 (0.52-1.04) mg/dL Estimated GFR > 60.0 (>60) mL/min BUN/Creatinine Ratio 19.5 (6-22) Glucose 139 H (80-110) mg/dL Lactate (0.7-2.1) mmol/L Calcium 9.8 (8.4-10.2) mg/dL Total Bilirubin 0.4 (0.2-1.3) mg/dL AST 25 (14-36) IU/L ALT 18 (<35) IU/L Alkaline Phosphatase 98 (38-126) U/L Troponin I (0.01-0.034) ng/mL NT-Pro-B Natriuret Pep (<125) pg/mL Total Protein 8.0 (6.3-8.2) g/dL Albumin 4.1 (3.5-5.0) g/dL Globulin 3.9 (1.7-4.1) g/dL Albumin/Globulin Ratio 1.1 (1.0-2.8) Lipase 135 (23-300) U/L Procalcitonin (<0.5) ng/mL Urine Color Urine Appearance Urine pH (4.5-8.0) Ur Specific [place] (1.000-1.035) Urine Protein (Negative) Urine Glucose (UA) (Negative) g/dL Urine Ketones (NEGATIVE) Urine Occult Blood (Negative) Urine Nitrate (Negative) Urine Bilirubin (NEGATIVE) Urine Urobilinogen (0.2) E.U./dL Ur Leukocyte Esterase (NEGATIVE) Urine RBC (0-5/HPF) Urine WBC (0-5/HPF) Ur Squamous Epith Cells (0-5/HPF) Urine Bacteria (None) Ur Culture Indicated? SARS-CoV-2 (PCR) 10/26/21 10/26/21 10/26/21 Range/Units 15:40 15:40 15:40 WBC (4.5-11.0) X10^3/uL RBC (4.0-5.2) X10^6/uL Hgb (12.0-16.0) g/dL Hct (36-46) % MCV (80-100) fL MCH (26-34) PG MCHC (30-36) % RDW (11.6-14.8) % Plt Count (150-400) X10^3/uL Neut % (Auto) (50-75) % Lymph % (Auto) (25-40) % [place] % (Auto) (3-14) % Eos % (Auto) (2-4) % Baso % (Auto) (0-2) % Neut # (Auto) (2233-7494) /uL Lymph # (Auto) (8254-3126) /uL [place] # (Auto) (0-900) /uL Eos # (Auto) (0-450) /uL Baso # (Auto) (0-100) /uL D-Dimer (<230) ng/mL Sodium (137-145) mmol/L Potassium (3.4-5.1) mmol/L Chloride (98-107) mmol/L Carbon Dioxide (22-32) mmol/L BUN (7-17) mg/dL Creatinine (0.52-1.04) mg/dL Estimated GFR (>60) mL/min BUN/Creatinine Ratio (6-22) Glucose (80-110) mg/dL Lactate 1.4 (0.7-2.1) mmol/L Calcium (8.4-10.2) mg/dL Total Bilirubin (0.2-1.3) mg/dL AST (14-36) IU/L ALT (<35) IU/L Alkaline Phosphatase (38-126) U/L Troponin I < 0.012 (0.01-0.034) ng/mL NT-Pro-B Natriuret Pep 364 H (<125) pg/mL Total Protein (6.3-8.2) g/dL Albumin (3.5-5.0) g/dL Globulin (1.7-4.1) g/dL Albumin/Globulin Ratio (1.0-2.8) Lipase (23-300) U/L Procalcitonin 0.04 (<0.5) ng/mL Urine Color Urine Appearance Urine pH (4.5-8.0) Ur Specific [place] (1.000-1.035) Urine Protein (Negative) Urine Glucose (UA) (Negative) g/dL Urine Ketones (NEGATIVE) Urine Occult Blood (Negative) Urine Nitrate (Negative) Urine Bilirubin (NEGATIVE) Urine Urobilinogen (0.2) E.U./dL Ur Leukocyte Esterase (NEGATIVE) Urine RBC (0-5/HPF) Urine WBC (0-5/HPF) Ur Squamous Epith Cells (0-5/HPF) Urine Bacteria (None) Ur Culture Indicated? SARS-CoV-2 (PCR) Point of Care Testing Glucose POC 116 Urine Dip Bedside Urine Glucose Negative Bedside Urine Bilirubin - Negative Bedside Urine Ketone - Negative Urine Specific [place] 1.025 Bedside Urine Occult Blood +/- Bedside Urine pH 6.0 Bedside Urine Protein ++ 100 Bedside Urine Urobilinogen - Negative Bedside Urine Nitrite - Negative Bedside Urine Leukocytes - Negative Esterase Discharge Plan Departure Patient Disposition: Admitted as Observation Clinical Impression: Ileus <Klaudia Pereira MD - Last Filed: 10/26/21 18:32> Cosign ED Attending Cosignature Attestation: I was immediately available in the department for consultation throughout this patient's visit. I agree with documentation as above. Klaudia Pereira MD
[2021-10-26 15:55] LABS: Add Manual Diff / Slide Review NO; Basophils Absolute Auto 100 /uL (0-100); Basophils Percent Auto 0.4 % (0-2); Eosinophils Absolute Auto 0 /uL (0-450); Eosinophils Percent Auto 0.2 % (2-4); Hematocrit 43.1 % (36-46); Hemoglobin 14.1 g/dL (12.0-16.0); Lymphocytes Absolute Auto 900 /uL (1100-4500); Lymphocytes Percent Auto 7.2 % (25-40); Mean Corpuscular HGB Conc 32.6 % (30-36); Mean Corpuscular Hemoglobin 29.1 PG (26-34); Mean Corpuscular Volume 89.4 fL (80-100); Monocytes Absolute Auto 400 /uL (0-900); Monocytes Percent Auto 3.2 % (3-14); Neutrophils Absolute Auto 11300 /uL (1500-7000); Platelet Count 281 X10^3/uL (150-400); Red Blood Cell Count 4.82 X10^6/uL (4.0-5.2); Red Cell Distribution Width 14.8 % (11.6-14.8); White Blood Cell Count 12.7 X10^3/uL (4.5-11.0)
[2021-10-26 16:00] LABS: D Dimer 295 ng/mL (<230)
[2021-10-26 16:03] LABS: Lactate (Lactic Acid) 1.4 mmol/L (0.7-2.1)
[2021-10-26 16:04] LABS: Alanine Aminotransferase 18 IU/L (<35); Albumin 4.1 g/dL (3.5-5.0); Albumin Globulin Ratio 1.1 (1.0-2.8); Alkaline Phosphatase 98 U/L (38-126); Aspartate Aminotransferase 25 IU/L (14-36); BUN Creatinine Ratio 19.5 (6-22); Bilirubin Total 0.4 mg/dL (0.2-1.3); Blood Urea Nitrogen 17 mg/dL (7-17); Calcium 9.8 mg/dL (8.4-10.2); Carbon Dioxide 34 mmol/L (22-32); Chloride 101 mmol/L (98-107); Estimated Glomerular Filt Rate > 60.0 mL/min (>60); Globulin 3.9 g/dL (1.7-4.1); Glucose 139 mg/dL (80-110); HEMOLYSIS < 15 (0-50); Lipase 135 U/L (23-300); Potassium 4.4 mmol/L (3.4-5.1); Sodium 139 mmol/L (137-145)
[2021-10-26 16:15] LABS: NT-proBNP (BNP-Adult 18+) 364 pg/mL (<125); Troponin I < 0.012 ng/mL (0.01-0.034)
[2021-10-26] MEDS: ACETAMINOPHEN 325 MG TABLET 975 MG PO (16:15)
[2021-10-26] MEDS: METOCLOPRAMIDE 10 MG/2 ML INJ IV (16:15)
[2021-10-26] MEDS: KETOROLAC 30 MG/ML VIAL 15 MG IV (16:16)
[2021-10-26 16:19] LABS: Procalcitonin 0.04 ng/mL (<0.5)
[2021-10-26 17:01] LABS: Appearance Urine UA CLOUDY; Bilirubin Urine UA NEGATIVE (NEGATIVE); Color Urine UA YELLOW; Glucose Urine UA NEGATIVE (Negative); Ketones Urine UA NEGATIVE (NEGATIVE); Leukocyte Esterase Urine UA NEGATIVE (NEGATIVE); Nitrite Urine UA NEGATIVE (Negative); Occult Blood Urine UA TRACE-INTACT (Negative); Protein Urine UA 2+ (Negative); Urobilinogen Urine UA 0.2 E.U./dL (0.2)
[2021-10-26] MEDS: PRAZOSIN 1 MG CAPSULE 2 MG PO ×2 (17:09→23:03)
[2021-10-26] MEDS: LOSARTAN 50 MG TABLET PO (17:10)
[2021-10-26] MEDS: VERAPAMIL 120 MG TABLET PO (17:10)
[2021-10-26 17:41] LABS: Bacteria Urine Many (>30); Culture Indicated Urine Specimen Cultured; RBC Urine 1-5/HPF (0-5/HPF); Squamous Epithelial Cell Urine 0-1 /HPF (0-5/HPF); WBC Urine 5-10/HPF (0-5/HPF)
[2021-10-26] MEDS: cefTRIAXone 1,000 MG in SODIUM CHLORIDE 0.9% 100 ML 200 ML IV ×2 (18:00→20:53)
--- NOTE | 2021-10-26 19:30 | P.HP_ITS ---
History of Present Illness History of Present Illness Date Patient Seen: 10/26/21 Time Patient Seen: 19:28 Chief complaint: Nausea, dehydration Narrative: Ms. 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 Patient denies fever, chills, chest pain, dysuria, syncope, hematochezia, melena, cough, sputum production, wheezing, recent URI, illness, injury or trauma. She denies any symptoms of bloating, constipation, diarrhea, or obstipation.? CT scan September 01, which shows a massive ventral hernia with the majority of her small bowel outside of the abdominal wall, with significant loss of domain of the abdominal compartment. Patient Dr Green general surgeon 08/2020 regarding hernia repair. ?Patient reports she has experienced some shortness of breath over the last 5 days.? Patient initially presented to the ED with blood pressure is 199/112, 230/102 upon admit patient's temp 98.4?, BP 158/101, HR 100, RR 20 O2 saturation 93% on 2L/NC. Patient had a white count of 12.7, with a left shift neutrophils 11,300. Bicarb 34, glucose 139, D-dimer 259, lactate, troponin, procalcitonin, lipase al l WNL. BNP 364. Patient's urinalysis was 2+ protein, wbc's 5-10, bacteria many>30-sent for urine culture. Patient's chest x-ray demonstrated cardiomegaly with moderate vascular congestion suggesting possible left pleural effusion. Patient's head CT demonstrated no acute intracranial processes. Patient's abdominal CT demonstrated diffuse small bowel dilation with wall enhancement possibly ileus versus enteritis versus possible developing small bowel obstruction. Patient admitted for intractable nausea and vomiting. Patient History Medical History (Updated 10/27/21 @ 01:52 by NEELAM Sears-SUSANNAH) Acute kidney injury (~12/2018) Adrenal mass Cardiomegaly Depression with anxiety Easy bruisability History of concussion History of recurrent TIAs History of stroke Hyperlipidemia associated with type 2 diabetes mellitus Hypothyroid Migraine Morbid obesity with BMI of 45.0-49.9, adult Neuropathy ABIOLA on CPAP Osteopenia Polyneuropathy Radiculopathy Type 2 diabetes mellitus Vitamin D deficiency Surgical History (Updated 10/27/21 @ 01:54 by NEELAM Sears-SUSANNAH) History of 3 sections History of lumbar spinal fusion (06/27/17) History of lumbar spinal fusion (11/26/19) History of ventral hernia repair Hx of umbilical hernia repair S/P cholecystectomy S/P trigger finger release Family & Social History Family History Mother Heart disease Father Heart disease Grandfather Diabetes mellitus Other Family history non-contributory Social History: household members none Prior Living Arrangements Apartment/Condo Safety & Behavioral: Feels Safe in Current Yes Environment Been Physically Hurt or No Threatened By a Person Suicidal Ideation Description None Suicide Plan Description No Plan Tobacco & Substance use: Smoking Status Never smoker alcohol intake never alcohol intake frequency 0-2 drinks per day Substance Use Type painkillers,does not use Meds Home Medications and Allergies Home Medications Medication Instructions Recorded Confirmed Type metformin 500 mg tablet 1,000 mg PO BID 02/02/18 10/26/21 History gabapentin 600 mg tablet 600 mg PO TID PRN 04/19/18 10/26/21 History clopidogrel 75 mg tablet 75 mg PO DAILY #30 tab 01/25/20 10/26/21 Rx prazosin 2 mg capsule 2 mg PO BEDTIME 09/11/20 10/26/21 History sertraline 100 mg tablet 100 mg PO DAILY 09/24/21 10/26/21 History bupropion HCl 300 mg 24 hr tablet, 300 mg PO DAILY #0 tab 09/26/21 10/26/21 Rx extended release albuterol sulfate 90 mcg/actuation 2 puff INHALATION Q6H PRN 10/26/21 10/26/21 History aerosol inhaler (Ventolin HFA) divalproex 250 mg tablet,delayed 250 mg PO BID 10/26/21 10/26/21 History release losartan 50 mg tablet 50 mg PO DAILY 10/26/21 10/26/21 History sumatriptan succinate 6 mg/0.5 mL 6 mg SUBCUT Q8HR PRN 10/26/21 10/26/21 History subcutaneous pen injector tiotropium bromide 1.25 2 puff INHALATION DAILY 10/26/21 10/26/21 History mcg/actuation mist for inhalation (Spiriva Respimat) verapamil 80 mg tablet 80 mg PO TID 10/26/21 10/26/21 History Allergies Allergy/AdvReac Type Severity Reaction Status Date / Time vancomycin Allergy Intermediate Flushing & Verified 08/27/21 11:25 rash Review of Systems Review of Systems Narrative: All 12 point systems reviewed with the patient and are negative except otherwise documented. Exam Vital Signs (past 8 hours): - 10/26/21 13:45 10/26/21 16:22 10/26/21 17:14 Temperature 98.4 F Pulse Rate 104 H 96 H 96 H Respiratory Rate 22 19 20 Blood Pressure 199/112 H 230/102 H 143/86 H Pulse Oximetry 92 98 93 10/26/21 17:49 10/26/21 19:16 Temperature 97.7 F Pulse Rate 100 H 105 H Respiratory Rate 20 22 Blood Pressure 158/101 H 143/75 H Pulse Oximetry 93 92 Oxygen Delivery Method Room Air Oxygen Flow Rate 0 Narrative Exam Narrative: General: Patient is a pleasant morbidly obese female in no distress at this time. HEENT: Normocephalic, atraumatic, extraocular muscles intact, oral pharynx is clear and mucous membranes are dry. Neck is supple and symmetric, trachea is midline, no adenopathy, no thyroid enlargement, nontender, no masses palpated. Negative for JVD Chest: Normal AP diameter and contour without kyphoscoliosis, no nasal flaring, retractions, or tachypneic labored Lungs: Auscultation of all lung graff are clear without adventitious sounds, wheezes, rhonchi, or rales. Cardio: regular rate and rhythm without murmur, rubs, or gallops, no carotid bruit, no cardiac pulsations present. Abdomen: Soft mild tenderness to right lower quad. Left lower quad abd wall appears grossly protruding firm, nontender hernia, with a surgical scar just to the right of the umbilicus. Bowel sounds are present in all 3 quadrants without guarding or rebound, no CVA tenderness. I had difficuly hearing BS in the upper Rt quad. Musculoskeletal: Muscle strength and tone are equal, no deformity, crepitus, effusions, cyanosis, clubbing present. intact radial and pedal pulses are normal. Skin: Warm dry and intact without rashes, ulcerations or petechiae. Neuro: Alert and orientated x3, sensation to touch intact, no gross deficits noted of cranial nerves. Psych: Patient has a well-kept appearance, appropriate affect, mental status attitude thought context and judgment are appropriate for age. Objective Labs Result Diagrams: 10/26/21 15:40 10/26/21 15:40 Labs: Laboratory Results - last 24 hr 10/26/21 10/26/21 10/26/21 13:42 13:42 14:43 WBC RBC Hgb Hct MCV MCH MCHC RDW Plt Count Neut % (Auto) Lymph % (Auto) [place] % (Auto) Eos % (Auto) Baso % (Auto) Neut # (Auto) Lymph # (Auto) [place] # (Auto) Eos # (Auto) Baso # (Auto) D-Dimer Sodium Potassium Chloride Carbon Dioxide BUN Creatinine Estimated GFR BUN/Creatinine Ratio Glucose Lactate Calcium Total Bilirubin AST ALT Alkaline Phosphatase Troponin I NT-Pro-B Natriuret Pep Total Protein Albumin Globulin Albumin/Globulin Ratio Lipase Procalcitonin Urine Color Yellow Urine Appearance Cloudy Urine pH 7.0 Ur Specific [place] 1.020 Urine Protein 2+ H Urine Glucose (UA) Negative Urine Ketones Negative Urine Occult Blood Trace-intact Urine Nitrate Negative Urine Bilirubin Negative Urine Urobilinogen 0.2 Ur Leukocyte Esterase Negative Urine RBC 1-5/hpf Urine WBC 5-10/hpf H Ur Squamous Epith Cells 0-1 /hpf Urine Bacteria Many (>30) H Ur Culture Indicated? Specimen cultured SARS-CoV-2 (PCR) Cancelled Negative 10/26/21 10/26/21 10/26/21 15:40 15:40 15:40 WBC 12.7 H RBC 4.82 Hgb 14.1 Hct 43.1 MCV 89.4 MCH 29.1 MCHC 32.6 RDW 14.8 Plt Count 281 Neut % (Auto) 89.0 H Lymph % (Auto) 7.2 L [place] % (Auto) 3.2 Eos % (Auto) 0.2 L Baso % (Auto) 0.4 Neut # (Auto) 97956 H Lymph # (Auto) 900 L [place] # (Auto) 400 Eos # (Auto) 0 Baso # (Auto) 100 D-Dimer 295 H Sodium 139 Potassium 4.4 Chloride 101 Carbon Dioxide 34 H BUN 17 Creatinine 0.87 Estimated GFR > 60.0 BUN/Creatinine Ratio 19.5 Glucose 139 H Lactate Calcium 9.8 Total Bilirubin 0.4 AST 25 ALT 18 Alkaline Phosphatase 98 Troponin I NT-Pro-B Natriuret Pep Total Protein 8.0 Albumin 4.1 Globulin 3.9 Albumin/Globulin Ratio 1.1 Lipase 135 Procalcitonin Urine Color Urine Appearance Urine pH Ur Specific [place] Urine Protein Urine Glucose (UA) Urine Ketones Urine Occult Blood Urine Nitrate Urine Bilirubin Urine Urobilinogen Ur Leukocyte Esterase Urine RBC Urine WBC Ur Squamous Epith Cells Urine Bacteria Ur Culture Indicated? SARS-CoV-2 (PCR) 10/26/21 10/26/21 10/26/21 15:40 15:40 15:40 WBC RBC Hgb Hct MCV MCH MCHC RDW Plt Count Neut % (Auto) Lymph % (Auto) [place] % (Auto) Eos % (Auto) Baso % (Auto) Neut # (Auto) Lymph # (Auto) [place] # (Auto) Eos # (Auto) Baso # (Auto) D-Dimer Sodium Potassium Chloride Carbon Dioxide BUN Creatinine Estimated GFR BUN/Creatinine Ratio Glucose Lactate 1.4 Calcium Total Bilirubin AST ALT Alkaline Phosphatase Troponin I < 0.012 NT-Pro-B Natriuret Pep 364 H Total Protein Albumin Globulin Albumin/Globulin Ratio Lipase Procalcitonin 0.04 Urine Color Urine Appearance Urine pH Ur Specific [place] Urine Protein Urine Glucose (UA) Urine Ketones Urine Occult Blood Urine Nitrate Urine Bilirubin Urine Urobilinogen Ur Leukocyte Esterase Urine RBC Urine WBC Ur Squamous Epith Cells Urine Bacteria Ur Culture Indicated? SARS-CoV-2 (PCR) Assessment & Plan Assessment & Plan narrative: Ms. 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 1. Intractable nausea vomiting, abd pain (rt lower quad), and diarrhea, acute, of unknown etiology, present on admission -ileus versus enteritis verses possible developing small bowel obstruction. -Hx of small-bowel perforation. Multiple Hernia repairs, abd surgeries, and L arge ventral hernia -ABD CT: diffuse small bowel dilation with wall enhancement possibly ileus vers us enteritis versus possible developing small bowel obstruction. -Per Dr. Fischer- Consult 08/2020:Large anterior abd wall ventral hernia containing Lg & sm bowel loops without evidence of associated bowel strangulation or obstruction, and a right adrenal adenomyelolipoma. If the hernia is not repaired, of course she continues to have the risk of potential abdominal catastrophe if she develops of obstruction, incarceration, strangulation, or perforation of the bowel at some point.? Then she would necessitate emergency surgery, and would likely have a very high morbidity mortality from the emergency surgery. -NPO- sips with medication as tolerated -antiemetics-to control nausea and vomiting, anti-diarrhea medication -consult placed for Dr. Russo 2. Hx of CVA with history of multiple old CVA and residual right sided weakness, chronic, present on admission -patient noted to have residual right sided weakness and stuttering -continue plavix 3. Essential hypertension, acute on chronic, present on admission -continue prazosin, verapamil 4. . Migraine associated with CVA in past, chronic, present on admission -continue Depakote, imitrex 5. COPD, chronic, present on admission -continue Spiriva, Ventolin HFA -no exacerbation currently 6. Depression, chronic, present on admission -continue bupropion 7. Von-[id number]-ylfoxgyii type 2 diabetes, chronic, present on admission -A1c ordered -continue metformin -patient admitted under diabetic protocol, blood sugar checks q.6 hours while NPO 8. ABIOLA on CPAP, chronic, present on admission -respiratory consult ordered for CPAP 9. Morbid obesity, as evidence by BMI of 46.6, acute on chronic, present on admission -previous dietary consult on last hospital visit 08/2021 -BMI 46.6, outpatient follow up 10. Depression, chronic, present on admission -continue sertraline Code Staus: DNR Surrogate decision maker: Gabbie Roberson, daughter SHERRIE PCR: Negative DVT/VTE prophylaxis: Lovenox 40 mg and SCDs Disposition: Estimated length of stay: Patient admitted for observation expected length of stay less than 2 midnights. I have utilized all available immediate resources to obtain, update, or review the patient's current medications. I confirmed that the patient's advanced care plan is present, Code status is documented and/or surrogate decision maker is listed in the patient's medical record. Time Spent With Patient Critical Care time: I spent a total of [] minutes of critical care time on this patient's care today; this time is exclusive of procedural time. Quality VTE Deep Vein Thrombosis/Pulmonary Embolism Present on Admission: No
[2021-10-26] MEDS: LACTATED RINGERS 1,000 ML 80 ML IV (20:53)
[2021-10-27] VITALS (12 sets, daily range): BP systolic 132–145; BP diastolic 53–78; PULSE 80–92; RESP 16–20; TEMP 36.3–36.6; O2SAT 92–96
[2021-10-27 07:26] LABS: Add Manual Diff / Slide Review NO; Basophils Absolute Auto 0 /uL (0-100); Basophils Percent Auto 0.1 % (0-2); Eosinophils Absolute Auto 0 /uL (0-450); Eosinophils Percent Auto 0.4 % (2-4); Hematocrit 39.6 % (36-46); Hemoglobin 13.1 g/dL (12.0-16.0); Lymphocytes Absolute Auto 1100 /uL (1100-4500); Mean Corpuscular Hemoglobin 29.5 PG (26-34); Mean Corpuscular Volume 89.6 fL (80-100); Monocytes Absolute Auto 600 /uL (0-900); Monocytes Percent Auto 6.4 % (3-14); Neutrophils Absolute Auto 7500 /uL (1500-7000); Neutrophils Percent Auto 81.1 % (50-75); Platelet Count 234 X10^3/uL (150-400); Red Blood Cell Count 4.42 X10^6/uL (4.0-5.2); Red Cell Distribution Width 14.8 % (11.6-14.8); White Blood Cell Count 9.2 X10^3/uL (4.5-11.0)
[2021-10-27 07:43] LABS: BUN Creatinine Ratio 21.4 (6-22); Blood Urea Nitrogen 22 mg/dL (7-17); Calcium 9.3 mg/dL (8.4-10.2); Carbon Dioxide 33 mmol/L (22-32); Chloride 101 mmol/L (98-107); Estimated Glomerular Filt Rate 53.1 mL/min (>60); Glucose 122 mg/dL (80-110); HEMOLYSIS 20 (0-50); Potassium 4.6 mmol/L (3.4-5.1); Sodium 139 mmol/L (137-145)
[2021-10-27] MEDS: LACTATED RINGERS 1,000 ML 80 ML IV ×2 (08:16→20:04)
[2021-10-27] MEDS: cefTRIAXone 1,000 MG in SODIUM CHLORIDE 0.9% 100 ML 200 ML IV (08:16)
[2021-10-27] MEDS: METFORMIN HCL 500 MG TABLET 1000 MG PO ×2 (08:25→17:33)
[2021-10-27] MEDS: CLOPIDOGREL 75 MG TABLET PO (08:25)
[2021-10-27] MEDS: buPROPion XL 150 MG TAB 300 MG PO (08:25)
[2021-10-27] MEDS: SERTRALINE 50 MG TABLET 100 MG PO (08:25)
--- NOTE | 2021-10-27 08:45 | P.CONS_ITS ---
History of Present Illness Consult details Date Patient Seen: 10/27/21 Time Patient Seen: 08:45 Chief complaint: Nausea, dehydration Narrative: 71 y.o woman numerous abdominal surgeries admitted to the hospital for abdominal pain. Emesis and diarrhea. CT A/P enteritis possible ileus. Afebrile WBC 9. She has a known massive ventral hernia which is unrepairable according to the [facility] where she has had of many of her previous abdominal surgeries secondary to her comorbidities and loss of abdominal domain. Meds Home Medications and Allergies Home Medications Medication Instructions Recorded Confirmed Type metformin 500 mg tablet 1,000 mg PO BID 02/02/18 10/26/21 History gabapentin 600 mg tablet 600 mg PO TID PRN 04/19/18 10/26/21 History clopidogrel 75 mg tablet 75 mg PO DAILY #30 tab 01/25/20 10/26/21 Rx prazosin 2 mg capsule 2 mg PO BEDTIME 09/11/20 10/26/21 History sertraline 100 mg tablet 100 mg PO DAILY 09/24/21 10/26/21 History bupropion HCl 300 mg 24 hr tablet, 300 mg PO DAILY #0 tab 09/26/21 10/26/21 Rx extended release albuterol sulfate 90 mcg/actuation 2 puff INHALATION Q6H PRN 10/26/21 10/26/21 History aerosol inhaler (Ventolin HFA) divalproex 250 mg tablet,delayed 250 mg PO BID 10/26/21 10/26/21 History release losartan 50 mg tablet 50 mg PO DAILY 10/26/21 10/26/21 History sumatriptan succinate 6 mg/0.5 mL 6 mg SUBCUT Q8HR PRN 10/26/21 10/26/21 History subcutaneous pen injector tiotropium bromide 1.25 2 puff INHALATION DAILY 10/26/21 10/26/21 History mcg/actuation mist for inhalation (Spiriva Respimat) verapamil 80 mg tablet 80 mg PO TID 10/26/21 10/26/21 History Allergies Allergy/AdvReac Type Severity Reaction Status Date / Time vancomycin Allergy Intermediate Flushing & Verified 08/27/21 11:25 rash Exam Vital Signs (past 8 hours): - 10/27/21 03:00 10/27/21 04:09 10/27/21 07:46 Temperature 97.4 F L Pulse Rate 92 H Respiratory Rate 20 Blood Pressure 134/68 Pulse Oximetry 94 92 96 10/27/21 08:00 Temperature 98 F Pulse Rate 87 Respiratory Rate 16 Blood Pressure 139/78 Pulse Oximetry 92 Oxygen Delivery Method Room Air Oxygen Flow Rate 0 Narrative Exam Narrative: General morbidly obese woman will alert oriented no acute distress Chest nonlabored respirations Abdomen soft compressible. Massive midline ventral hernia Extremities warm well perfused Objective Labs Result Diagrams: 10/27/21 05:30 10/27/21 05:30 Labs: Laboratory Results - last 24 hr 10/26/21 10/26/21 10/26/21 13:42 13:42 14:43 WBC RBC Hgb Hct MCV MCH MCHC RDW Plt Count Neut % (Auto) Lymph % (Auto) [place] % (Auto) Eos % (Auto) Baso % (Auto) Neut # (Auto) Lymph # (Auto) [place] # (Auto) Eos # (Auto) Baso # (Auto) D-Dimer Sodium Potassium Chloride Carbon Dioxide BUN Creatinine Estimated GFR BUN/Creatinine Ratio Glucose Lactate Calcium Total Bilirubin AST ALT Alkaline Phosphatase Troponin I NT-Pro-B Natriuret Pep Total Protein Albumin Globulin Albumin/Globulin Ratio Lipase Procalcitonin Urine Color Yellow Urine Appearance Cloudy Urine pH 7.0 Ur Specific Ball 1.020 Urine Protein 2+ H Urine Glucose (UA) Negative Urine Ketones Negative Urine Occult Blood Trace-intact Urine Nitrate Negative Urine Bilirubin Negative Urine Urobilinogen 0.2 Ur Leukocyte Esterase Negative Urine RBC 1-5/hpf Urine WBC 5-10/hpf H Ur Squamous Epith Cells 0-1 /hpf Urine Bacteria Many (>30) H Ur Culture Indicated? Specimen cultured SARS-CoV-2 (PCR) Cancelled Negative 10/26/21 10/26/21 10/26/21 15:40 15:40 15:40 WBC 12.7 H RBC 4.82 Hgb 14.1 Hct 43.1 MCV 89.4 MCH 29.1 MCHC 32.6 RDW 14.8 Plt Count 281 Neut % (Auto) 89.0 H Lymph % (Auto) 7.2 L [place] % (Auto) 3.2 Eos % (Auto) 0.2 L Baso % (Auto) 0.4 Neut # (Auto) 13850 H Lymph # (Auto) 900 L [place] # (Auto) 400 Eos # (Auto) 0 Baso # (Auto) 100 D-Dimer 295 H Sodium 139 Potassium 4.4 Chloride 101 Carbon Dioxide 34 H BUN 17 Creatinine 0.87 Estimated GFR > 60.0 BUN/Creatinine Ratio 19.5 Glucose 139 H Lactate Calcium 9.8 Total Bilirubin 0.4 AST 25 ALT 18 Alkaline Phosphatase 98 Troponin I NT-Pro-B Natriuret Pep Total Protein 8.0 Albumin 4.1 Globulin 3.9 Albumin/Globulin Ratio 1.1 Lipase 135 Procalcitonin Urine Color Urine Appearance Urine pH Ur Specific Ball Urine Protein Urine Glucose (UA) Urine Ketones Urine Occult Blood Urine Nitrate Urine Bilirubin Urine Urobilinogen Ur Leukocyte Esterase Urine RBC Urine WBC Ur Squamous Epith Cells Urine Bacteria Ur Culture Indicated? SARS-CoV-2 (PCR) 10/26/21 10/26/21 10/26/21 15:40 15:40 15:40 WBC RBC Hgb Hct MCV MCH MCHC RDW Plt Count Neut % (Auto) Lymph % (Auto) [place] % (Auto) Eos % (Auto) Baso % (Auto) Neut # (Auto) Lymph # (Auto) [place] # (Auto) Eos # (Auto) Baso # (Auto) D-Dimer Sodium Potassium Chloride Carbon Dioxide BUN Creatinine Estimated GFR BUN/Creatinine Ratio Glucose Lactate 1.4 Calcium Total Bilirubin AST ALT Alkaline Phosphatase Troponin I < 0.012 NT-Pro-B Natriuret Pep 364 H Total Protein Albumin Globulin Albumin/Globulin Ratio Lipase Procalcitonin 0.04 Urine Color Urine Appearance Urine pH Ur Specific Ball Urine Protein Urine Glucose (UA) Urine Ketones Urine Occult Blood Urine Nitrate Urine Bilirubin Urine Urobilinogen Ur Leukocyte Esterase Urine RBC Urine WBC Ur Squamous Epith Cells Urine Bacteria Ur Culture Indicated? SARS-CoV-2 (PCR) 10/27/21 10/27/21 05:30 05:30 WBC 9.2 RBC 4.42 Hgb 13.1 Hct 39.6 MCV 89.6 MCH 29.5 MCHC 33.0 RDW 14.8 Plt Count 234 Neut % (Auto) 81.1 H Lymph % (Auto) 12.0 L [place] % (Auto) 6.4 Eos % (Auto) 0.4 L Baso % (Auto) 0.1 Neut # (Auto) 7500 H Lymph # (Auto) 1100 [place] # (Auto) 600 Eos # (Auto) 0 Baso # (Auto) 0 D-Dimer Sodium 139 Potassium 4.6 Chloride 101 Carbon Dioxide 33 H BUN 22 H Creatinine 1.03 Estimated GFR 53.1 L BUN/Creatinine Ratio 21.4 Glucose 122 H Lactate Calcium 9.3 Total Bilirubin AST ALT Alkaline Phosphatase Troponin I NT-Pro-B Natriuret Pep Total Protein Albumin Globulin Albumin/Globulin Ratio Lipase Procalcitonin Urine Color Urine Appearance Urine pH Ur Specific Ball Urine Protein Urine Glucose (UA) Urine Ketones Urine Occult Blood Urine Nitrate Urine Bilirubin Urine Urobilinogen Ur Leukocyte Esterase Urine RBC Urine WBC Ur Squamous Epith Cells Urine Bacteria Ur Culture Indicated? SARS-CoV-2 (PCR) [facility] Medical History Acute kidney injury (~12/2018) Adrenal mass Cardiomegaly Depression with anxiety Easy bruisability History of concussion History of recurrent TIAs History of stroke Hyperlipidemia associated with type 2 diabetes mellitus Hypothyroid Migraine Morbid obesity with BMI of 45.0-49.9, adult Neuropathy ABIOLA on CPAP Osteopenia Polyneuropathy Radiculopathy Type 2 diabetes mellitus Vitamin D deficiency Surgical History History of 3 sections History of lumbar spinal fusion (06/27/17) History of lumbar spinal fusion (11/26/19) History of ventral hernia repair Hx of umbilical hernia repair S/P cholecystectomy S/P trigger finger release Family History Mother Heart disease Father Heart disease Grandfather Diabetes mellitus Other Family history non-contributory Social History marital status: unknown household members: none Tobacco & Substance Use Smoking Status: Never smoker alcohol intake: never substance use type: does not use Assessment & Plan Assessment and plan (1) Enteritis: Status: Acute Assessment & Plan narrative: 71 y.o woman numerous abdominal surgeries admitted for enteritis. CT demonstrates mildly dialated loops of small bowel no transition point. Report reads enteritis vs possible developing ileus. No evidence of SBO no surgical in tervention indicated. -Diet as tolerated -If develops small bowel obstruction proceeds with small bowel follow through study -Given her extensive comorbidities morbid obesity, COPD, DM, CVA, numerous abdominal surgeries she is at high risk of morbidity and mortality with any operative intervention. Time Spent With Patient Critical Care time: I spent a total of [] minutes of critical care time on this patient's care toda y; this time is exclusive of procedural time.
[2021-10-27] MEDS: VERAPAMIL 80 MG TABLET PO ×3 (09:03→20:06)
[2021-10-27] MEDS: KETOROLAC 30 MG/ML VIAL IV ×2 (13:34→20:09)
--- NOTE | 2021-10-27 16:51 | CM.DANOTE ---
DCP/Assessment: Reviewed chart. Patient is a 71yr old female admitted to [facility] with nausea/dehydration. PCP is Jessy Suarez. Primary payor 1)Medicare 2)Medicaid. Reviewed chart. [employer] unable to see patient in person today due to caseload and lateness of the day. Spoke with RN whom reports that patient primarily I in ADL's. Patient uses walker at home for ambulation. RN reports that patient does have caregivers? Anticipate that patient has ERIKA through Medicaid. At this time, surgery not planned for patient. Provider's hopeful that patient will improve over the next 24-48hrs. and be able to return home. P: Anticipate home. CM team to evaluate prior to d/c for needs. KJS Discharge Planning/Care Management CM Discharge Assessment Start: 10/27/21 16:45 Freq: Status: Active Protocol: Document 10/27/21 16:45 KJS (Rec: 10/27/21 16:51 KJS [id number]) Discharge Planning Assessment Assigned Unitizer KRISTI Mckeon Contact Information Gabbie Roberson (daughter) ph# [phone] Advance Directives? Yes Advance Directives on File Yes History Provided By Medical Record Prior Living Arrangements Apartment/Condo Household Members none Independent with ADL's Yes: Patient uses walker at baseline? Is patient alert and oriented? Yes: RN reports patient alert and oriented x3 DME Already Rented / Owned FWW / Walker Comment Patient on Meals on Wheels per notes Comment no actual barriers noted: just needs good coordination of services. Pt is a very able historian of her ERIKA care plan Discharge Plan Home Transportation Arrangement Daughter or Caregiver Additional Comment Patient states she has notified [facility] worker of her discharge plans. Review Status In Process Next Review Type Continued Stay Review
--- NOTE | 2021-10-27 17:04 | P.PN_ITS ---
Subjective Subjective Interval history: The patient reports her abd pain is slightly improved today. She endorses passing gas, although less than usual. She denies having BM's. She denies having much of an appetite but reports being willing to try some soup. She denies any other active complaints. Exam Vital Signs (past 8 hours): - 10/27/21 12:00 10/27/21 16:00 Temperature 97.8 F 98 F Pulse Rate 88 80 Respiratory Rate 18 17 Blood Pressure 135/72 140/69 Pulse Oximetry 93 94 Oxygen Delivery Method Room Air Oxygen Flow Rate 0 Const Other: Patient laying in bed comfortably upon my entering the room, in no apparent acute distress. Eyes Other: No scleral icterus appreciated. Neck Other: No carotid bruits appreciated. Resp Other: Diminished breath sounds bilaterally to anterior lung graff, without adventitious sounds appreciated. Cardio Other: RRR. S1 and S2 heart sounds appreciated, with no extra heart sounds or murmurs noted. No peripheral edema appreciated. GI Other: Soft, large abdomen, with mild distension and mild tenderness to palpation diffusely. Bowel sounds present. Multiple abdominal well-healed surgical scars noted. Skin Other: No grossly abnormal skin lesions noted. Extrem Other: Palpable and equal radial and dorsalis pedis pulses bilaterally. Objective Labs Result Diagrams: 10/27/21 05:30 10/27/21 05:30 Labs: Laboratory Results - last 24 hr 10/26/21 10/27/21 10/27/21 14:43 05:30 05:30 WBC 9.2 RBC 4.42 Hgb 13.1 Hct 39.6 MCV 89.6 MCH 29.5 MCHC 33.0 RDW 14.8 Plt Count 234 Neut % (Auto) 81.1 H Lymph % (Auto) 12.0 L [place] % (Auto) 6.4 Eos % (Auto) 0.4 L Baso % (Auto) 0.1 Neut # (Auto) 7500 H Lymph # (Auto) 1100 [place] # (Auto) 600 Eos # (Auto) 0 Baso # (Auto) 0 Sodium 139 Potassium 4.6 Chloride 101 Carbon Dioxide 33 H BUN 22 H Creatinine 1.03 Estimated GFR 53.1 L BUN/Creatinine Ratio 21.4 Glucose 122 H Calcium 9.3 Urine Color Yellow Urine Appearance Cloudy Urine pH 7.0 Ur Specific Bennett 1.020 Urine Protein 2+ H Urine Glucose (UA) Negative Urine Ketones Negative Urine Occult Blood Trace-intact Urine Nitrate Negative Urine Bilirubin Negative Urine Urobilinogen 0.2 Ur Leukocyte Esterase Negative Urine RBC 1-5/hpf Urine WBC 5-10/hpf H Ur Squamous Epith Cells 0-1 /hpf Urine Bacteria Many (>30) H Ur Culture Indicated? Specimen cultured [facility] Medical History Acute kidney injury (~12/2018) Adrenal mass Cardiomegaly Depression with anxiety Easy bruisability History of concussion History of recurrent TIAs History of stroke Hyperlipidemia associated with type 2 diabetes mellitus Hypothyroid Migraine Morbid obesity with BMI of 45.0-49.9, adult Neuropathy ABIOLA on CPAP Osteopenia Polyneuropathy Radiculopathy Type 2 diabetes mellitus Vitamin D deficiency Surgical History History of 3 sections History of lumbar spinal fusion (06/27/17) History of lumbar spinal fusion (11/26/19) History of ventral hernia repair Hx of umbilical hernia repair S/P cholecystectomy S/P trigger finger release Family History Mother Heart disease Father Heart disease Grandfather Diabetes mellitus Other Family history non-contributory Social History marital status: unknown household members: none Smoking Status: Never smoker alcohol intake: never substance use type: does not use Assessment & Plan Assessment & Plan narrative: Ms. 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 1. Intractable nausea vomiting, abd pain (RLQ), and diarrhea, acute, of unknown etiology, present on admission -ileus versus enteritis verses possible developing small bowel obstruction -Hx of small-bowel perforation, multiple hernia repairs, abd surgeries, and large ventral hernia -ABD CT:? diffuse small bowel dilation with wall enhancement possibly ileus versus enteritis versus possible developing small bowel obstruction. -Per Dr. Fischer- Consult 08/2020:Large anterior abd wall ventral hernia containing Lg & sm bowel loops without evidence of associated bowel strangulation or obstruction, and a right adrenal adenomyelolipoma. If the hernia is not repaired, of course she continues to have the risk of potential abdominal catastrophe if she develops of obstruction, incarceration, strangulation, or perforation of the bowel at some point.? Then she would necessitate emergency surgery, and would likely have a very high morbidity mortality from the emergency surgery. -antiemetics-to control nausea and vomiting, anti-diarrhea medication -consult placed for general surgery 2. Hx of CVA with history of multiple old CVA and residual right sided weakness, chronic, present on admission -patient noted to have residual right sided weakness and stuttering -continue Plavix 3. Essential hypertension, acute on chronic, present on admission -continue prazosin, verapamil ? 4. . Migraine associated with CVA in past, chronic, present on admission -continue Depakote, imitrex 5. COPD, chronic, present on admission -continue Spiriva, Ventolin HFA -no exacerbation currently 6. Depression, chronic, present on admission -continue bupropion 7. [id number] type 2 diabetes, chronic, present on admission -A1c ordered -continue metformin -patient admitted under diabetic protocol, blood sugar checks q.6 hours while NPO 8. ABIOLA on CPAP, chronic, present on admission -respiratory consult ordered for CPAP 9. Morbid obesity, as evidence by BMI of 46.6, acute on chronic, present on admission -previous dietary consult on last hospital visit 08/2021 -BMI 46.6, outpatient follow up 10. Depression, chronic, present on admission -continue sertraline Time Spent With Patient Critical Care time: I spent a total of [] minutes of critical care time on this patient's care today; this time is exclusive of procedural time. Quality VTE Deep Vein Thrombosis/Pulmonary Embolism Present on Admission: No MIPS - Admit I confirm the patient?s Advance Care Plan is present, Code status is documented, Surrogate decision maker is in patient?s record [If Yes, STOP here]: Yes
[2021-10-27] MEDS: ENOXAPARIN 40 MG/0.4 ML SYRINGE SUBCUT (20:05)
[2021-10-27] MEDS: PRAZOSIN 1 MG CAPSULE 2 MG PO (20:06)
[2021-10-28] VITALS (16 sets, daily range): BP systolic 93–162; BP diastolic 48–84; PULSE 78–89; RESP 17–20; TEMP 36.1–36.9; O2SAT 92–96
[2021-10-28] MEDS: LACTATED RINGERS 1,000 ML 80 ML IV (08:24)
[2021-10-28] MEDS: cefTRIAXone 1,000 MG in SODIUM CHLORIDE 0.9% 100 ML 200 ML IV (08:25)
[2021-10-28] MEDS: SERTRALINE 50 MG TABLET 100 MG PO (08:26)
[2021-10-28] MEDS: VERAPAMIL 80 MG TABLET PO ×3 (08:26→21:00)
[2021-10-28] MEDS: buPROPion XL 150 MG TAB 300 MG PO (08:26)
[2021-10-28] MEDS: ENOXAPARIN 40 MG/0.4 ML SYRINGE SUBCUT ×2 (08:26→21:27)
[2021-10-28] MEDS: METFORMIN HCL 500 MG TABLET 1000 MG PO ×2 (08:27→17:16)
[2021-10-28] MEDS: CLOPIDOGREL 75 MG TABLET PO (08:27)
[2021-10-28] MEDS: KETOROLAC 30 MG/ML VIAL IV ×3 (11:16→23:53)
--- NOTE | 2021-10-28 12:09 | CM.DPC ---
DCP Cont: Per MD, pt with large ventral hernia that has some intestine included but per Surgeon pt currently too high risk for planned surgical intervention and to treat conservatively. PT/OT ordered for mobility to assist with her abdominal discomfort. Plan: SW to follow closely for PT/OT eval and recommendations towards confirming safe d/c home with family assist and any further identified discharge planning needs. KRISTI Muñoz
--- NOTE | 2021-10-28 13:01 | OT.IPNOTE ---
Attempted to see pt for OT eval and pt states that she has caregivers to assist her from 900-1330. In addition, if needed that her caregiver could stay with her. Pt feels that she has no needs for OT at this time, therefore discharge pt from OT services.
--- NOTE | 2021-10-28 13:15 | PT.IIE ---
Current Diagnoses Noninfective gastroenteritis and colitis, unspecified (10/26/21) Medical History (Last Reviewed 10/27/21 @ 08:48 by Wilfrido Russo MD) Acute kidney injury (~12/2018) Adrenal mass Cardiomegaly Depression with anxiety Easy bruisability History of concussion History of recurrent TIAs History of stroke Hyperlipidemia associated with type 2 diabetes mellitus Hypothyroid Migraine Morbid obesity with BMI of 45.0-49.9, adult Neuropathy ABIOLA on CPAP Osteopenia Polyneuropathy Radiculopathy Type 2 diabetes mellitus Vitamin D deficiency Physical Therapy Inpatient Evaluation/Re-Eval M1 PT/OT-IP Prior Functional Status Start: 10/28/21 14:26 Freq: NEEDED Status: Active Protocol: Document 10/28/21 13:15 AB (Rec: 10/28/21 14:39 AB [id number]) Medical Review Prior Functional Status Medical History Reviewed Yes Communication able to make needs known Mobility and Gait pt stated that she is modified independent with mobilities using her UP walker; stated that she ambulates for ~ 30 min in the morning with her caregiver and another 30 min in the afternoon with her grandson Social History Household Members none Living Arrangements Apartment/Condo Number of Floors (Floors) One Floor Number of Stairs To Enter/Railing? lives on the first floor apartment without steps to enter Home Environment Tub/Shower Home Equipment Four Wheel Walker,Tub Transfer Bench,Hand Held Shower,Grab Bars In Shower Additional Social History Comment pt has an UP walker pt has a caregiver that comesin 4 day/wk from 9 am to 130 pm; daughter lives across the street and can assist pt when needed; pt also has a life alert M2 PT-IP Current Condition Start: 10/28/21 14:26 Freq: NEEDED Status: Active Protocol: Document 10/28/21 13:15 AB (Rec: 10/28/21 14:39 AB [id number]) Physical Therapy Current Condition Current Condition Evaluation Date 10/28/21 Treatment Diagnosis enteritis; difficulty in walking Onset Date 10/26/21 M3 PT-IP Subjective Start: 10/28/21 14:26 Freq: NEEDED Status: Active Protocol: Document 10/28/21 13:15 AB (Rec: 10/28/21 14:39 AB [id number]) Subjective Physical Therapy Visit Type Type Initial Evaluation Visit Start Time 13:15 Visit Stop Time 13:35 Total Visit Minutes 20 Number of RANGE TECHNICIAN Visits 0 Physical Therapy Visit Comments Patient Comments agreeable to do PT Therapy Pain Assessment Location Abdomen Scale Used pain scale not stated Pain Management Techniques Modification of Treatment M4 PT-IP Mobility and Gait Start: 10/28/21 14:26 Freq: NEEDED Status: Active Protocol: Document 10/28/21 13:15 AB (Rec: 10/28/21 14:39 AB [id number]) PT-Bed Mobility Assessment Supine to Sit Supine to Sit Standby Assistance PT-Transfer Assessment Sit to and From Stand Sit to and from Stand Standby Assistance,1 Person Assistance,Use of Upper Extremities Equipment Transfer Assistive Device Gait Belt,Front Wheeled Walker Orthotic/Prosthetic Devices or Brace: No Transfers Transfer Destination Bed Transfer Technique ambulated Transfer Ability Level of Assist Contact Guard Assistance,1 Person Assistance,Use of Upper Extremities Comments Mobility Comments pt seated on chair. agreed to do PT. completed sit to stand SBA and ambulated in room ~ 35 f using FWW CGA. ambulated to EOB and demonstrated sit to supine SBA. pt requested to stay in bed. positioned in bed. call light and table placed within reach. Gait Assessment Gait Gait Assistance Required: Contact Guard Assist Distance (Feet) 35 Able to Maintain Weight Bearing Status Yes During Gait Assistive Devices Assistive Device Gait Belt,Front Wheeled Walker Orthotic/Prosthetic Devices or Brace: No Gait Deviations General Gait Pattern Antalgic,Decreased Stride Length,Decreased Feet Clearance Factors Limiting Gait Function Factors Limiting Gait Function Decreased Activity Tolerance, Decreased Sensation,Decreased Strength,Pain,Poor Balance, Poor Safety Awareness PT-Balance Assessment Sitting Balance and Reactions Static Sitting Balance Ability Good Dynamic Sitting Balance Ability Good Standing Balance and Reactions Static Standing Balance Ability Fair Dynamic Standing Balance Ability Fair Device Used FWW M5 PT-IP Objective Assessments Start: 10/28/21 14:26 Freq: NEEDED Status: Active Protocol: Document 10/28/21 13:15 AB (Rec: 10/28/21 14:39 AB [id number]) Orientation Orientation/Cognition Level of Alertness Alert Orientation Name,Place,Situation Language Function Ability No Deficits Noted Safety Awareness Decreased Safety Awareness Memory Description No Deficits Noted Comments slight stutter but able to answer all questions Strength Lower Extremity Strength Assessment Right Impaired Hip 3+/5 Knee 3+/5 Comments Strength Comments LLE: 4-/5 Muscle Tone Muscle Tone WNL Yes M6 PT-IP Treatment Start: 10/28/21 14:26 Freq: NEEDED Status: Active Protocol: Document 10/28/21 13:15 AB (Rec: 10/28/21 14:39 AB [id number]) Physical Therapy Treatment Education Education Provided Safety M7 PT-IP Assessment and Plan Start: 10/28/21 14:26 Freq: NEEDED Status: Active Protocol: Document 10/28/21 13:15 AB (Rec: 10/28/21 14:39 AB [id number]) PT Summary Assessment and Plan Potential Rehabilitation Potential Good Status of Condition at Evaluation Stable Summary Impairments Pain,ROM,Strength,Balance, Coordination,Sensation,Tone, Cognition,Bed Mobility, Transfers,Gait,Activity Tolerance Assessment Summary Pt with h/o CVA with R sided weakness and now in the hospital for enteritis. pt is not a surgical candidate at this time. c/o slight abdominal pain but able to mobilize in room CGA. pt plans to go home and has a caregiver that comes in 4 days a week for ~ 4 1/2 hours and daughter can come in if needed for assistance as well. pt may go home with assistance. pt will continue PT while here in the hospital to prevent further weakness and to improve mobility independence. Goals Bed Mobility Goal Independent Transfer Goal Independent,Four Wheeled Walker Gait Goal Independent,Four Wheel Walker Gait Distance 150 Days to Meet Goals 10 Frequency of Treatment Frequency Of Treatment Once a Day Treatment Plan Physical Therapy Treatment Plan Bed Mobility Training,Transfer Training,Gait Training, Therapeutic Exercise,Balance Retraining,Discharge Planning, Hot or Cold Pack,Neuromuscular Re-ed,Coordination Retraining Recommendations To Nursing Amount of Assist Needed 1 Person Assist Discharge Recommendations PT Discharge Recommendations Home with Assistance,Home Health Transportation Needs at Discharge Private Vehicle
--- NOTE | 2021-10-28 19:49 | PM.PN.1 ---
Subjective Subjective Interval history: The patient reports unchanged abd pain, not better or worse. She endorses passing gas. She's been trying to get up and move around more, to help with intestinal movement. Denies any n/v. Exam Vital Signs (past 8 hours): - 10/28/21 15:11 10/28/21 15:48 10/28/21 16:14 Temperature Pulse Rate 86 Respiratory Rate Blood Pressure 153/74 H Pulse Oximetry 92 92 10/28/21 16:25 10/28/21 19:26 Temperature 98.4 F Pulse Rate Respiratory Rate 20 Blood Pressure Pulse Oximetry 94 Oxygen Delivery Method Room Air Oxygen Flow Rate 0 Narrative Exam Narrative: Const Other: Patient laying in bed comfortably upon my entering the room, in no apparent acute distress. Eyes Other: No scleral icterus appreciated. Neck Other: No carotid bruits appreciated. Resp Other: Diminished breath sounds bilaterally to anterior lung graff, without adventitious sounds appreciated. Cardio Other: RRR. S1 and S2 heart sounds appreciated, with no extra heart sounds or murmurs noted. No peripheral edema appreciated. GI Other: Soft, large abdomen, with mild distension and mild tenderness to palpation diffusely. Bowel sounds present. Multiple abdominal well-healed surgical scars noted. Skin Other: No grossly abnormal skin lesions noted. Extrem Other: Palpable and equal radial and dorsalis pedis pulses bilaterally. Objective Labs Result Diagrams: 10/27/21 05:30 10/27/21 05:30 [facility] Medical History Acute kidney injury (~12/2018) Adrenal mass Cardiomegaly Depression with anxiety Easy bruisability History of concussion History of recurrent TIAs History of stroke Hyperlipidemia associated with type 2 diabetes mellitus Hypothyroid Migraine Morbid obesity with BMI of 45.0-49.9, adult Neuropathy ABIOLA on CPAP Osteopenia Polyneuropathy Radiculopathy Type 2 diabetes mellitus Vitamin D deficiency Surgical History History of 3 sections History of lumbar spinal fusion (06/27/17) History of lumbar spinal fusion (11/26/19) History of ventral hernia repair Hx of umbilical hernia repair S/P cholecystectomy S/P trigger finger release Family History Mother Heart disease Father Heart disease Grandfather Diabetes mellitus Other Family history non-contributory Social History marital status: unknown household members: none Smoking Status: Never smoker alcohol intake: never substance use type: does not use Assessment & Plan Assessment & Plan narrative: Ms. 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 1. Intractable nausea vomiting, abd pain (RLQ), and diarrhea, acute, of unknown etiology, present on admission -ileus versus enteritis verses possible developing small bowel obstruction -Hx of small-bowel perforation, multiple hernia repairs, abd surgeries, and large ventral hernia -ABD CT:? diffuse small bowel dilation with wall enhancement possibly ileus versus enteritis versus possible developing small bowel obstruction. -Per Dr. Fischer- Consult 08/2020:Large anterior abd wall ventral hernia containing Lg & sm bowel loops without evidence of associated bowel strangulation or obstruction, and a right adrenal adenomyelolipoma. If the hernia is not repaired, of course she continues to have the risk of potential abdominal catastrophe if she develops of obstruction, incarceration, strangulation, or perforation of the bowel at some point.? Then she would necessitate emergency surgery, and would likely have a very high morbidity mortality from the emergency surgery. -antiemetics-to control nausea and vomiting, anti-diarrhea medication -consult placed for general surgery 2. Hx of CVA with history of multiple old CVA and residual right sided weakness, chronic, present on admission -patient noted to have residual right sided weakness and stuttering -continue Plavix 3. Essential hypertension, acute on chronic, present on admission -continue prazosin, verapamil ? 4. . Migraine associated with CVA in past, chronic, present on admission -continue Depakote, imitrex 5. COPD, chronic, present on admission -continue Spiriva, Ventolin HFA -no exacerbation currently 6. Depression, chronic, present on admission -continue bupropion 7. Shm-[id number]-[id number] type 2 diabetes, chronic, present on admission -A1c ordered -continue metformin -patient admitted under diabetic protocol, blood sugar checks q.6 hours while NPO 8. ABIOLA on CPAP, chronic, present on admission -respiratory consult ordered for CPAP 9. Morbid obesity, as evidence by BMI of 46.6, acute on chronic, present on admission -previous dietary consult on last hospital visit 08/2021 -BMI 46.6, outpatient follow up 10. Depression, chronic, present on admission -continue sertraline Time Spent With Patient Critical Care time: I spent a total of [] minutes of critical care time on this patient's care today; this time is exclusive of procedural time. Quality VTE Deep Vein Thrombosis/Pulmonary Embolism Present on Admission: No
[2021-10-28] MEDS: PRAZOSIN 1 MG CAPSULE 2 MG PO (21:27)
[2021-10-28] MEDS: ACETAMINOPHEN 325 MG TABLET 650 MG PO (21:27)
[2021-10-29] VITALS (15 sets, daily range): BP systolic 126–189; BP diastolic 54–94; PULSE 70–98; RESP 18–20; TEMP 36.2–36.9; O2SAT 92–99
[2021-10-29] MEDS: ENOXAPARIN 40 MG/0.4 ML SYRINGE SUBCUT ×2 (08:20→21:58)
[2021-10-29] MEDS: SERTRALINE 50 MG TABLET 100 MG PO (08:21)
[2021-10-29] MEDS: VERAPAMIL 80 MG TABLET PO ×3 (08:21→21:58)
[2021-10-29] MEDS: CLOPIDOGREL 75 MG TABLET PO (08:21)
[2021-10-29] MEDS: cefTRIAXone 1,000 MG in SODIUM CHLORIDE 0.9% 100 ML 200 ML IV (08:21)
[2021-10-29] MEDS: buPROPion XL 150 MG TAB 300 MG PO (08:21)
[2021-10-29] MEDS: METFORMIN HCL 500 MG TABLET 1000 MG PO ×2 (08:21→17:50)
[2021-10-29] MEDS: KETOROLAC 30 MG/ML VIAL IV ×3 (10:12→23:39)
--- NOTE | 2021-10-29 11:44 | PT.IPTN ---
Current Diagnoses Noninfective gastroenteritis and colitis, unspecified (10/26/21) Physical Therapy Treatment Note M2 PT-IP Current Condition Start: 10/28/21 14:26 Freq: NEEDED Status: Active Protocol: Document 10/28/21 13:15 AB (Rec: 10/28/21 14:39 AB [id number]) Physical Therapy Current Condition Current Condition Evaluation Date 10/28/21 Treatment Diagnosis enteritis; difficulty in walking Onset Date 10/26/21 M3 PT-IP Subjective Start: 10/28/21 14:26 Freq: NEEDED Status: Active Protocol: Document 10/29/21 11:33 KS (Rec: 10/29/21 12:48 KS [id number]) Subjective Physical Therapy Visit Type Type Treatment Note Visit Start Time 11:33 Visit Stop Time 11:44 Total Visit Minutes 11 Number of MENTAL HEALTH TECH Visits 1 Physical Therapy Visit Comments Patient Comments agreeable to do PT M4 PT-IP Mobility and Gait Start: 10/28/21 14:26 Freq: NEEDED Status: Active Protocol: Document 10/29/21 11:33 KS (Rec: 10/29/21 12:48 KS [id number]) PT-Transfer Assessment Sit to and From Stand Sit to and from Stand Standby Assistance,1 Person Assistance,Use of Upper Extremities Equipment Transfer Assistive Device Gait Belt,Front Wheeled Walker Orthotic/Prosthetic Devices or Brace: No Transfers Transfer Destination Chair Transfer Technique ambulated Transfer Ability Level of Assist Contact Guard Assistance,1 Person Assistance,Use of Upper Extremities Comments Mobility Comments Pt in chair upon arrival and agreeable to ambulation. Pt SBA for sit<>stand w/ FWW and then ambulated ~100 ft around room w/ FWW and SBA to CGA. Pt reported feeling good while ambulating and demonstrated proper use of FWW however she typically uses upwalker at home. Pt transferred back to chair SBA and reclined and performed 1x10 ankle pumps to promote blood flow and circulation and left in chair w/ all needs in reach. Gait Assessment Gait Gait Assistance Required: Contact Guard Assist Distance (Feet) 100 Able to Maintain Weight Bearing Status Yes During Gait Assistive Devices Assistive Device Gait Belt,Front Wheeled Walker Orthotic/Prosthetic Devices or Brace: No Gait Deviations General Gait Pattern Antalgic,Decreased Stride Length,Decreased Feet Clearance Factors Limiting Gait Function Factors Limiting Gait Function Decreased Activity Tolerance, Decreased Sensation,Decreased Strength,Pain,Poor Balance Comments Gait Comments Pt ambulated ~100 ft w/ FWW and SBA w/ decreased stride and foot clearance and has R sided weakness from previous CVA. PT-Balance Assessment Sitting Balance and Reactions Static Sitting Balance Ability Good Dynamic Sitting Balance Ability Good Standing Balance and Reactions Static Standing Balance Ability Fair Dynamic Standing Balance Ability Fair Device Used FWW M5 PT-IP Objective Assessments Start: 10/28/21 14:26 Freq: NEEDED Status: Active Protocol: Document 10/28/21 13:15 AB (Rec: 10/28/21 14:39 AB [id number]) Orientation Orientation/Cognition Level of Alertness Alert Orientation Name,Place,Situation Language Function Ability No Deficits Noted Safety Awareness Decreased Safety Awareness Memory Description No Deficits Noted Comments slight stutter but able to answer all questions Strength Lower Extremity Strength Assessment Right Impaired Hip 3+/5 Knee 3+/5 Comments Strength Comments LLE: 4-/5 Muscle Tone Muscle Tone WNL Yes M6 PT-IP Treatment Start: 10/28/21 14:26 Freq: NEEDED Status: Active Protocol: Document 10/29/21 11:33 KS (Rec: 10/29/21 12:48 KS [id number]) Physical Therapy Treatment Exercises Exercises Ankle Pumps Education Education Provided Safety M7 PT-IP Assessment and Plan Start: 10/28/21 14:26 Freq: NEEDED Status: Active Protocol: Document 10/29/21 11:33 KS (Rec: 10/29/21 12:48 KS [id number]) PT Summary Assessment and Plan Potential Rehabilitation Potential Good Status of Condition at Evaluation Stable Summary Impairments Pain,ROM,Strength,Balance, Coordination,Sensation,Tone, Cognition,Bed Mobility, Transfers,Gait,Activity Tolerance Assessment Summary Pt SBA to CGA for transfers and ambulation and able to ambulate `100 ft w/ FWW. She is limited in mobility due to low activity tolerance and R sided weakness, but demonstrated good use of FWW. She reports having assistance at home and family across the street. She would benefit from outpatient or HHPT to improve balance, strength, and gait. Will continue to treat to prevent increased weakness and improve mobility. Goals Bed Mobility Goal Independent Transfer Goal Independent,Four Wheeled Walker Gait Goal Independent,Four Wheel Walker Gait Distance 150 Days to Meet Goals 10 Frequency of Treatment Frequency Of Treatment Once a Day Treatment Plan Physical Therapy Treatment Plan Bed Mobility Training,Transfer Training,Gait Training, Therapeutic Exercise,Balance Retraining,Discharge Planning, Hot or Cold Pack,Neuromuscular Re-ed,Coordination Retraining Recommendations To Nursing Amount of Assist Needed 1 Person Assist Discharge Recommendations PT Discharge Recommendations Home with Assistance,Home Health Transportation Needs at Discharge Private Vehicle
--- NOTE | 2021-10-29 12:39 | DI.CT.S_ITS ---
PROCEDURE: CT ABDOMEN PELVIS W CON INDICATIONS: Concern for evolving SBO, along with mesenteric ischemia TECHNIQUE: After the administration of oral and IV contrast, axial sections were acquired from the lung bases to the pubic symphysis. Coronal and sagittal reformats were performed. For radiation dose reduction, the following was used: automated exposure control, adjustment of mA and/or kV according to patient size. COMPARISON: [facility], CT, CT ABDOMEN PELVIS W CON, 09/01/2020, 12:13. [facility], CT, CT ABDOMEN PELVIS W CON, 10/26/2021, 15:46. FINDINGS: Image quality: Excellent. Lung bases: Bibasilar atelectasis. Heart: No significant findings. ABDOMEN: Liver: No focal lesion. Gallbladder: Absent. Biliary ducts: Unremarkable. Pancreas: Unremarkable. Spleen: Unremarkable. Adrenal Glands: Right adrenal nodule measuring 3.5 cm. There is a central fat density which is consistent with a myelolipoma. The lesion is similar to the prior exam from 2019. Kidneys and Ureters: No hydronephrosis. Small simple left renal cyst. Stomach and Bowel: No transition point to suggest small bowel obstruction. There is decreased small bowel dilatation. There is mild small bowel wall enhancement in the right abdomen, (4/14), slightly decreased. Diverticulosis. No diverticulitis. Peritoneum: No abnormal intraperitoneal fluid. No free air. Ventral Wall: Large ventral abdominal wall hernia. The majority of the bowel is herniated. Abdominal Nodes: No retroperitoneal or mesenteric adenopathy by size criteria. Vessels: Aorta and inferior vena cava are normal in size. Proximal mesenteric arteries are patent. There is mild calcified plaque in the abdominal aorta and at the ostium of the celiac artery. Mild ostial calcification at the renal arteries. PELVIS: Pelvic Organs: Uterus is unremarkable. No free fluid. Bladder: Unremarkable. Pelvic Nodes: No enlarged lymph nodes. Miscellaneous: No inguinal hernias are seen. Bones: Lumbosacral spine fixation with intervertebral body spacers. No compression fracture. Lumbar edema. IMPRESSION: 1. No small bowel obstruction. There is substantial interval improvement in the small bowel dilatation and small bowel mural enhancement compared to 10/26/2021. Large ventral abdominal wall hernia. 2. Mesenteric arteries are patent. No free fluid. Diverticulosis. 3. Right adrenal nodule is unchanged compared to 2019. This lesion or a portion of the lesion is consistent with a benign adrenal myelolipoma. Collision tumor cannot be excluded. Dictated by: Huan Mancera M.D. on 10/29/2021 at 15:15 Approved by: Huan Mancera M.D. on 10/29/2021 at 15:27
--- NOTE | 2021-10-29 14:11 | PM.PN.1 ---
Subjective Subjective Interval history: The patient complaints of continued abd pain, that is more in the upper abd area. She describes it as throbbing and cramping. She reports that sitting up in a chair often helps. She reports passing gas yesterday. Denies having any BM's. She reports good PO intake, and denies n/v. Will likely repeat CT abd/pelvis with contrast today, to look for evolving SBO or mesenteric ischemia. Will start PO simethicone to see if that helps. Exam Vital Signs (past 8 hours): - 10/29/21 07:35 10/29/21 07:45 10/29/21 08:00 Temperature 97.1 F L Pulse Rate 93 H Respiratory Rate 18 Blood Pressure 189/90 H Pulse Oximetry 93 95 93 10/29/21 10:16 10/29/21 11:15 Temperature 98.3 F Pulse Rate 75 Respiratory Rate 18 Blood Pressure 158/70 H 161/70 H Pulse Oximetry 97 Oxygen Delivery Method Room Air Oxygen Flow Rate 0 Narrative Exam Narrative: Const Other: Patient laying in bed comfortably upon my entering the room, in no apparent acute distress. Eyes Other: No scleral icterus appreciated. Neck Other: No carotid bruits appreciated. Resp Other: Diminished breath sounds bilaterally to anterior lung graff, without adventitious sounds appreciated. Cardio Other: RRR. S1 and S2 heart sounds appreciated, with no extra heart sounds or murmurs noted. No peripheral edema appreciated. GI Other: Soft, large abdomen, with mild distension and mild tenderness to palpation diffusely. Bowel sounds present. Multiple abdominal well-healed surgical scars noted. Skin Other: No grossly abnormal skin lesions noted. Extrem Other: Palpable and equal radial and dorsalis pedis pulses bilaterally. Objective Labs Result Diagrams: 10/27/21 05:30 10/27/21 05:30 [facility] Medical History Acute kidney injury (~12/2018) Adrenal mass Cardiomegaly Depression with anxiety Easy bruisability History of concussion History of recurrent TIAs History of stroke Hyperlipidemia associated with type 2 diabetes mellitus Hypothyroid Migraine Morbid obesity with BMI of 45.0-49.9, adult Neuropathy ABIOLA on CPAP Osteopenia Polyneuropathy Radiculopathy Type 2 diabetes mellitus Vitamin D deficiency Surgical History History of 3 sections History of lumbar spinal fusion (06/27/17) History of lumbar spinal fusion (11/26/19) History of ventral hernia repair Hx of umbilical hernia repair S/P cholecystectomy S/P trigger finger release Family History Mother Heart disease Father Heart disease Grandfather Diabetes mellitus Other Family history non-contributory Social History marital status: unknown household members: none Smoking Status: Never smoker alcohol intake: never substance use type: does not use Assessment & Plan Assessment & Plan narrative: Ms. 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 1. Intractable nausea vomiting, abd pain (RLQ), and diarrhea, acute, of unknown etiology, present on admission -ileus versus enteritis verses possible developing small bowel obstruction -Hx of small-bowel perforation, multiple hernia repairs, abd surgeries, and large ventral hernia -ABD CT:? diffuse small bowel dilation with wall enhancement possibly ileus versus enteritis versus possible developing small bowel obstruction. -Per Dr. Fischer- Consult 08/2020: Large anterior abd wall ventral hernia containing large & small bowel loops without evidence of associated bowel strangulation or obstruction, and a right adrenal adenomyelolipoma. If the hernia is not repaired, of course she continues to have the risk of potential abdominal catastrophe if she develops of obstruction, incarceration, strangulation, or perforation of the bowel at some point. Then she would necessitate emergency surgery, and would likely have a very high morbidity mortality from the emergency surgery. -antiemetics-to control nausea and vomiting, anti-diarrhea medication -consult placed for general surgery 2. Hx of CVA with history of multiple old CVA and residual right sided weakness, chronic, present on admission -patient noted to have residual right sided weakness and stuttering -continue Plavix 3. Essential hypertension, acute on chronic, present on admission -continue prazosin, verapamil ? 4. . Migraine associated with CVA in past, chronic, present on admission -continue Depakote, imitrex 5. COPD, chronic, present on admission -continue Spiriva, Ventolin HFA -no exacerbation currently 6. Depression, chronic, present on admission -continue bupropion 7. [id number] type 2 diabetes, chronic, present on admission -A1c ordered -continue metformin -patient admitted under diabetic protocol, blood sugar checks q.6 hours while NPO 8. ABIOLA on CPAP, chronic, present on admission -respiratory consult ordered for CPAP 9. Morbid obesity, as evidence by BMI of 46.6, acute on chronic, present on admission -previous dietary consult on last hospital visit 08/2021 -BMI 46.6, outpatient follow up 10. Depression, chronic, present on admission -continue sertraline Time Spent With Patient Critical Care time: I spent a total of [] minutes of critical care time on this patient's care today; this time is exclusive of procedural time. Quality VTE Deep Vein Thrombosis/Pulmonary Embolism Present on Admission: No
--- NOTE | 2021-10-29 14:32 | CM.DPC ---
DCP Cont: Per MD, pt continues to have abdominal pain from large ventral hernia and possible SBO but has currently been considered too risky for surgical intervention at this time. CT scan done today towards determining if pt more emergent for surgical intervention. Per PT, recommending home with assist and HH. SW met bedside with pt and explained role and she confirms she still lives in her apt alone in [place] but has [facility]xweek and her Dtr across the street from her. Pt has used [facility] in the past and [facility] is here preference if she is safe for d/c to home and states her friend Suellen would provide transport home at d/c. Pt confirms that she has been to [facility] before and if she has surgery and SNF needed her preference would be [facility] again. SW called [facility] and provided new referral and they are willing to review and likely accept pt for HH services. MALIK Saleem kindly faxed new referral to [facility]. F2F completed but needs MD signature. Plan: SW to follow closely for CT scan results to determine if surgical intervention is needed. SW to follow for MD to sign F2F if she remains safe for home. Poly Schneider, DIRECTOR BUSINESS
--- NOTE | 2021-10-29 14:44 | CM.DPNOTE ---
Faxed referral to [facility] per Poly and received fax conf. Harper Decker CM Asst.
[2021-10-29 15:07] LABS: Add Manual Diff / Slide Review NO; Basophils Absolute Auto 0 /uL (0-100); Basophils Percent Auto 0.9 % (0-2); Eosinophils Absolute Auto 100 /uL (0-450); Eosinophils Percent Auto 2.4 % (2-4); Hematocrit 37.4 % (36-46); Hemoglobin 12.6 g/dL (12.0-16.0); Lymphocytes Absolute Auto 1100 /uL (1100-4500); Lymphocytes Percent Auto 22.4 % (25-40); Mean Corpuscular HGB Conc 33.6 % (30-36); Mean Corpuscular Hemoglobin 29.8 PG (26-34); Mean Corpuscular Volume 88.8 fL (80-100); Monocytes Absolute Auto 500 /uL (0-900); Monocytes Percent Auto 10.5 % (3-14); Neutrophils Absolute Auto 3100 /uL (1500-7000); Neutrophils Percent Auto 63.8 % (50-75); Platelet Count 217 X10^3/uL (150-400); Red Blood Cell Count 4.21 X10^6/uL (4.0-5.2); Red Cell Distribution Width 14.5 % (11.6-14.8); White Blood Cell Count 4.8 X10^3/uL (4.5-11.0)
[2021-10-29] MEDS: SIMETHICONE 80 MG TABLET PO ×3 (15:16→21:58)
[2021-10-29] MEDS: ACETAMINOPHEN 325 MG TABLET 650 MG PO (15:40)
[2021-10-29 15:47] LABS: BUN Creatinine Ratio 18.5 (6-22); Blood Urea Nitrogen 15 mg/dL (7-17); Calcium 9.5 mg/dL (8.4-10.2); Carbon Dioxide 29 mmol/L (22-32); Chloride 100 mmol/L (98-107); Estimated Glomerular Filt Rate > 60.0 mL/min (>60); Glucose 92 mg/dL (80-110); HEMOLYSIS 24 (0-50); Magnesium 1.4 mg/dL (1.6-2.3); Potassium 4.3 mmol/L (3.4-5.1); Sodium 137 mmol/L (137-145)
[2021-10-29] MEDS: MAGNESIUM SULFATE 2 GM/50 ML PIGGYBACK IV (17:00)
[2021-10-29] MEDS: PRAZOSIN 1 MG CAPSULE 2 MG PO (21:58)
[2021-10-29] MEDS: SODIUM CHLORIDE 0.9% FLUSH 10 ML IV (22:01)
[2021-10-30] VITALS (13 sets, daily range): BP systolic 128–166; BP diastolic 66–74; PULSE 70–95; RESP 16–19; TEMP 36.2–36.6; O2SAT 95–100
[2021-10-30] MEDS: ACETAMINOPHEN 325 MG TABLET 650 MG PO (08:58)
[2021-10-30] MEDS: ENOXAPARIN 40 MG/0.4 ML SYRINGE SUBCUT ×2 (08:58→21:52)
[2021-10-30] MEDS: METFORMIN HCL 500 MG TABLET 1000 MG PO ×2 (08:59→18:11)
[2021-10-30] MEDS: SIMETHICONE 80 MG TABLET PO ×4 (08:59→21:52)
[2021-10-30] MEDS: SERTRALINE 50 MG TABLET 100 MG PO (08:59)
[2021-10-30] MEDS: GABAPENTIN 600 MG TABLET PO (08:59)
[2021-10-30] MEDS: CLOPIDOGREL 75 MG TABLET PO (08:59)
[2021-10-30] MEDS: buPROPion XL 150 MG TAB 300 MG PO (09:00)
[2021-10-30] MEDS: SODIUM CHLORIDE 0.9% FLUSH 10 ML IV ×2 (09:00→21:53)
[2021-10-30] MEDS: VERAPAMIL 80 MG TABLET PO ×3 (09:03→21:52)
[2021-10-30] MEDS: KETOROLAC 30 MG/ML VIAL IV ×2 (09:09→18:27)
--- NOTE | 2021-10-30 10:53 | PT.IPTN ---
Current Diagnoses Noninfective gastroenteritis and colitis, unspecified (10/29/21) Physical Therapy Treatment Note M2 PT-IP Current Condition Start: 10/28/21 14:26 Freq: NEEDED Status: Active Protocol: Document 10/28/21 13:15 AB (Rec: 10/28/21 14:39 AB [id number]) Physical Therapy Current Condition Current Condition Evaluation Date 10/28/21 Treatment Diagnosis enteritis; difficulty in walking Onset Date 10/26/21 M3 PT-IP Subjective Start: 10/28/21 14:26 Freq: NEEDED Status: Active Protocol: Document 10/30/21 10:42 KS (Rec: 10/30/21 12:55 KS [id number]) Subjective Physical Therapy Visit Type Type Treatment Note Visit Start Time 10:42 Visit Stop Time 10:53 Total Visit Minutes 11 Number of WINDOWS ADMINISTRATOR Visits 2 Physical Therapy Visit Comments Patient Comments agreeable to do PT M4 PT-IP Mobility and Gait Start: 10/28/21 14:26 Freq: NEEDED Status: Active Protocol: Document 10/30/21 10:42 KS (Rec: 10/30/21 12:55 KS [id number]) PT-Transfer Assessment Sit to and From Stand Sit to and from Stand Standby Assistance,1 Person Assistance,Use of Upper Extremities Equipment Transfer Assistive Device Gait Belt,Front Wheeled Walker Orthotic/Prosthetic Devices or Brace: No Transfers Transfer Destination Chair Transfer Technique ambulated Transfer Ability Level of Assist Contact Guard Assistance,1 Person Assistance,Use of Upper Extremities Comments Mobility Comments Pt in chair upon arrival and agreeable to PT. SBA for sit<> stand w/ FWW and SBA to CGA for 80 ft ambulation around room w/ FWW. Pt reported fatigue after ambulation and requested to sit back down but after ~1 min rest was able to complete some LE exercises to promote blood flow and strengthening. Gait Assessment Gait Gait Assistance Required: Standby Assistance,Contact Guard Assist Distance (Feet) 80 Able to Maintain Weight Bearing Status Yes During Gait Assistive Devices Assistive Device Gait Belt,Front Wheeled Walker Orthotic/Prosthetic Devices or Brace: No Gait Deviations General Gait Pattern Antalgic,Decreased Stride Length,Decreased Feet Clearance Factors Limiting Gait Function Factors Limiting Gait Function Decreased Activity Tolerance, Decreased Sensation,Decreased Strength,Pain,Poor Balance Comments Gait Comments Pt limited in gait distance due to low tolerance for activity and weakness R>L. PT-Balance Assessment Sitting Balance and Reactions Static Sitting Balance Ability Good Dynamic Sitting Balance Ability Good Standing Balance and Reactions Static Standing Balance Ability Fair Dynamic Standing Balance Ability Fair Device Used FWW M5 PT-IP Objective Assessments Start: 10/28/21 14:26 Freq: NEEDED Status: Active Protocol: Document 10/28/21 13:15 AB (Rec: 10/28/21 14:39 AB [id number]) Orientation Orientation/Cognition Level of Alertness Alert Orientation Name,Place,Situation Language Function Ability No Deficits Noted Safety Awareness Decreased Safety Awareness Memory Description No Deficits Noted Comments slight stutter but able to answer all questions Strength Lower Extremity Strength Assessment Right Impaired Hip 3+/5 Knee 3+/5 Comments Strength Comments LLE: 4-/5 Muscle Tone Muscle Tone WNL Yes M6 PT-IP Treatment Start: 10/28/21 14:26 Freq: NEEDED Status: Active Protocol: Document 10/30/21 10:42 KS (Rec: 10/30/21 12:55 KS [id number]) Physical Therapy Treatment Exercises Exercises Ankle Pumps,Gluteal Sets,Quad Sets Education Education Provided Safety M7 PT-IP Assessment and Plan Start: 10/28/21 14:26 Freq: NEEDED Status: Active Protocol: Document 10/30/21 10:42 KS (Rec: 10/30/21 12:55 KS [id number]) PT Summary Assessment and Plan Potential Rehabilitation Potential Good Status of Condition at Evaluation Stable Summary Impairments Pain,ROM,Strength,Balance, Coordination,Sensation,Tone, Cognition,Bed Mobility, Transfers,Gait,Activity Tolerance Assessment Summary Pt remains limited in mobility due to weakess (R>L) and low activity tolerance. She is SBA to CGA for all mobility and was able to ambulate `80 ft w/ FWW today before reporting fatigue and mild SOB and requesting to sit. She also completed LE exercises. She would benefit from outpatient or HHPT to improve balance, strength, and gait. Will continue to treat to prevent increased weakness and improve mobility. Goals Bed Mobility Goal Independent Transfer Goal Independent,Four Wheeled Walker Gait Goal Independent,Four Wheel Walker Gait Distance 150 Days to Meet Goals 10 Frequency of Treatment Frequency Of Treatment Once a Day Treatment Plan Physical Therapy Treatment Plan Bed Mobility Training,Transfer Training,Gait Training, Therapeutic Exercise,Balance Retraining,Discharge Planning, Hot or Cold Pack,Neuromuscular Re-ed,Coordination Retraining Other Recommendations and Next Treatment Increase gait distance Focus Recommendations To Nursing Amount of Assist Needed 1 Person Assist Discharge Recommendations PT Discharge Recommendations Home with Assistance,Home Health Transportation Needs at Discharge Private Vehicle
--- NOTE | 2021-10-30 13:34 | CM.DPNOTE ---
Faxed face to face to [facility] per Ambreen and received fax conf. Harper Decker CM Asst.
--- NOTE | 2021-10-30 16:49 | P.PN_ITS ---
Subjective Subjective Interval history: The patient reports better passage of flatulence since yesterday. She believes the simethicone is helping her out. She is aware that the results of the CT abd/pelvis yesterday showed overall improvement and no SBO. Exam Vital Signs (past 8 hours): - 10/30/21 11:00 10/30/21 12:00 10/30/21 15:40 Temperature 97.8 F 97.5 F L Pulse Rate 90 88 Respiratory Rate 16 17 Blood Pressure 128/66 132/69 Pulse Oximetry 97 100 99 Oxygen Delivery Method Room Air Oxygen Flow Rate 0 Narrative Exam Narrative: Const Other: Patient laying in bed comfortably upon my entering the room, in no apparent acute distress. Eyes Other: No scleral icterus appreciated. Neck Other: No carotid bruits appreciated. Resp Other: Diminished breath sounds bilaterally to anterior lung graff, without adventitious sounds appreciated. Cardio Other: RRR. S1 and S2 heart sounds appreciated, with no extra heart sounds or murmurs noted. No peripheral edema appreciated. GI Other: Soft, large abdomen, with mild distension and mild tenderness to palpation diffusely. Bowel sounds present. Multiple abdominal well-healed surgical scars noted. Skin Other: No grossly abnormal skin lesions noted. Extrem Other: Palpable and equal radial and dorsalis pedis pulses bilaterally. Objective Labs Result Diagrams: 10/29/21 15:00 10/29/21 15:00 [facility] Medical History Acute kidney injury (~12/2018) Adrenal mass Cardiomegaly Depression with anxiety Easy bruisability History of concussion History of recurrent TIAs History of stroke Hyperlipidemia associated with type 2 diabetes mellitus Hypothyroid Migraine Morbid obesity with BMI of 45.0-49.9, adult Neuropathy ABIOLA on CPAP Osteopenia Polyneuropathy Radiculopathy Type 2 diabetes mellitus Vitamin D deficiency Surgical History History of 3 sections History of lumbar spinal fusion (06/27/17) History of lumbar spinal fusion (11/26/19) History of ventral hernia repair Hx of umbilical hernia repair S/P cholecystectomy S/P trigger finger release Family History Mother Heart disease Father Heart disease Grandfather Diabetes mellitus Other Family history non-contributory Social History marital status: unknown household members: none Smoking Status: Never smoker alcohol intake: never substance use type: does not use Assessment & Plan Assessment & Plan narrative: Ms. 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 1. Intractable nausea vomiting, abd pain (RLQ), and diarrhea, acute, of unknown etiology, present on admission -ileus versus enteritis verses possible developing small bowel obstruction -Hx of small-bowel perforation, multiple hernia repairs, abd surgeries, and large ventral hernia -ABD CT:? diffuse small bowel dilation with wall enhancement possibly ileus versus enteritis versus possible developing small bowel obstruction. -Per Dr. Fischer- Consult 08/2020: Large anterior abd wall ventral hernia containing large & small bowel loops without evidence of associated bowel strangulation or obstruction, and a right adrenal adenomyelolipoma. If the hernia is not repaired, of course she continues to have the risk of potential abdominal catastrophe if she develops of obstruction, incarceration, strangulation, or perforation of the bowel at some point. Then she would necessitate emergency surgery, and would likely have a very high morbidity mortality from the emergency surgery. -antiemetics-to control nausea and vomiting, anti-diarrhea medication -consult placed for general surgery 2. Hx of CVA with history of multiple old CVA and residual right sided weakness, chronic, present on admission -patient noted to have residual right sided weakness and stuttering -continue Plavix 3. Essential hypertension, acute on chronic, present on admission -continue prazosin, verapamil ? 4. . Migraine associated with CVA in past, chronic, present on admission -continue Depakote, imitrex 5. COPD, chronic, present on admission -continue Spiriva, Ventolin HFA -no exacerbation currently 6. Depression, chronic, present on admission -continue bupropion 7. Ixu-zjerhde-vihdgibhf type 2 diabetes, chronic, present on admission -A1c ordered -continue metformin -patient admitted under diabetic protocol, blood sugar checks q.6 hours while NPO 8. ABIOLA on CPAP, chronic, present on admission -respiratory consult ordered for CPAP 9. Morbid obesity, as evidence by BMI of 46.6, acute on chronic, present on admission -previous dietary consult on last hospital visit 08/2021 -BMI 46.6, outpatient follow up 10. Depression, chronic, present on admission -continue sertraline Time Spent With Patient Critical Care time: I spent a total of [] minutes of critical care time on this patient's care today; this time is exclusive of procedural time. Quality VTE Deep Vein Thrombosis/Pulmonary Embolism Present on Admission: No
--- NOTE | 2021-10-30 19:28 | PC.NURSE ---
toradol twice for abd pain and effective each time. Able to tolerate diet w/out problems. Does think she can go home tomorrow as long as the pain is effectively controlled and she considers it controlled at the moment.
[2021-10-30] MEDS: PRAZOSIN 1 MG CAPSULE 2 MG PO (21:52)
[2021-10-31 06:52] VITALS: BP 144/61; PULSE 83; RESP 14; TEMP 36.3; O2SAT 98
[2021-10-31 07:50] VITALS: O2SAT 96
--- NOTE | 2021-10-31 07:57 | P.PN_ITS ---
Exam Vital Signs (past 8 hours): - 10/31/21 06:52 Temperature 97.3 F L Pulse Rate 83 Respiratory Rate 14 Blood Pressure 144/61 H Pulse Oximetry 98 Oxygen Delivery Method Room Air Oxygen Flow Rate 0 Objective Labs Result Diagrams: 10/29/21 15:00 10/29/21 15:00 [facility] Medical History Acute kidney injury (~12/2018) Adrenal mass Cardiomegaly Depression with anxiety Easy bruisability History of concussion History of recurrent TIAs History of stroke Hyperlipidemia associated with type 2 diabetes mellitus Hypothyroid Migraine Morbid obesity with BMI of 45.0-49.9, adult Neuropathy ABIOLA on CPAP Osteopenia Polyneuropathy Radiculopathy Type 2 diabetes mellitus Vitamin D deficiency Surgical History History of 3 sections History of lumbar spinal fusion (06/27/17) History of lumbar spinal fusion (11/26/19) History of ventral hernia repair Hx of umbilical hernia repair S/P cholecystectomy S/P trigger finger release Family History Mother Heart disease Father Heart disease Grandfather Diabetes mellitus Other Family history non-contributory Social History marital status: unknown household members: none Smoking Status: Never smoker alcohol intake: never substance use type: does not use Assessment & Plan Assessment & Plan narrative: Ms. 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 1. Intractable nausea vomiting, abd pain (RLQ), and diarrhea, acute, of unknown etiology, present on admission -ileus versus enteritis verses possible developing small bowel obstruction -Hx of small-bowel perforation, multiple hernia repairs, abd surgeries, and larg e ventral hernia -ABD CT:? diffuse small bowel dilation with wall enhancement possibly ileus versus enteritis versus possible developing small bowel obstruction. -Per Dr. Fischer- Consult 08/2020: Large anterior abd wall ventral hernia containing large & small bowel loops without evidence of associated bowel strangulation or obstruction, and a right adrenal adenomyelolipoma. If the hernia is not repaired, of course she continues to have the risk of potential abdominal catastrophe if she develops of obstruction, incarceration, strangulation, or perforation of the bowel at some point. Then she would necessitate emergency surgery, and would likely have a very high morbidity mortality from the emergency surgery. -antiemetics-to control nausea and vomiting, anti-diarrhea medication -consult placed for general surgery 2. Hx of CVA with history of multiple old CVA and residual right sided weakness, chronic, present on admission -patient noted to have residual right sided weakness and stuttering -continue Plavix 3. Essential hypertension, acute on chronic, present on admission -continue prazosin, verapamil ? 4. . Migraine associated with CVA in past, chronic, present on admission -continue Depakote, imitrex 5. COPD, chronic, present on admission -continue Spiriva, Ventolin HFA -no exacerbation currently 6. Depression, chronic, present on admission -continue bupropion 7. Ibk-nymgzmw-nnnreafls type 2 diabetes, chronic, present on admission -A1c ordered -continue metformin -patient admitted under diabetic protocol, blood sugar checks q.6 hours while NPO 8. ABIOLA on CPAP, chronic, present on admission -respiratory consult ordered for CPAP 9. Morbid obesity, as evidence by BMI of 46.6, acute on chronic, present on admission -previous dietary consult on last hospital visit 08/2021 -BMI 46.6, outpatient follow up 10. Depression, chronic, present on admission -continue sertraline Time Spent With Patient Critical Care time: I spent a total of [] minutes of critical care time on this patient's care today ; this time is exclusive of procedural time. Quality VTE Deep Vein Thrombosis/Pulmonary Embolism Present on Admission: No
[2021-10-31 08:00] VITALS: BP 148/74; PULSE 88; RESP 20; TEMP 36.3; O2SAT 95
[2021-10-31] MEDS: ENOXAPARIN 40 MG/0.4 ML SYRINGE SUBCUT (08:47)
[2021-10-31 08:48] VITALS: BP 159/71; PULSE 85
[2021-10-31] MEDS: VERAPAMIL 80 MG TABLET PO (08:48)
[2021-10-31] MEDS: METFORMIN HCL 500 MG TABLET 1000 MG PO (08:48)
[2021-10-31] MEDS: CLOPIDOGREL 75 MG TABLET PO (08:51)
[2021-10-31] MEDS: SIMETHICONE 80 MG TABLET PO (08:51)
[2021-10-31] MEDS: buPROPion XL 150 MG TAB 300 MG PO (08:51)
[2021-10-31] MEDS: SERTRALINE 50 MG TABLET 100 MG PO (08:51)
[2021-10-31] MEDS: SODIUM CHLORIDE 0.9% FLUSH 10 ML IV (08:52)
--- NOTE | 2021-10-31 10:24 | PT.IPTN ---
Current Diagnoses Noninfective gastroenteritis and colitis, unspecified (10/29/21) Physical Therapy Treatment Note M2 PT-IP Current Condition Start: 10/28/21 14:26 Freq: NEEDED Status: Active Protocol: Document 10/28/21 13:15 AB (Rec: 10/28/21 14:39 AB [id number]) Physical Therapy Current Condition Current Condition Evaluation Date 10/28/21 Treatment Diagnosis enteritis; difficulty in walking Onset Date 10/26/21 M3 PT-IP Subjective Start: 10/28/21 14:26 Freq: NEEDED Status: Active Protocol: Document 10/31/21 10:14 KS (Rec: 10/31/21 12:37 KS [id number]) Subjective Physical Therapy Visit Type Type Treatment Note Visit Start Time 10:14 Visit Stop Time 10:24 Total Visit Minutes 10 Number of ON SITE MANAGER Visits 3 Physical Therapy Visit Comments Patient Comments agreeable to do PT M4 PT-IP Mobility and Gait Start: 10/28/21 14:26 Freq: NEEDED Status: Active Protocol: Document 10/31/21 10:14 KS (Rec: 10/31/21 12:37 KS [id number]) PT-Transfer Assessment Sit to and From Stand Sit to and from Stand Standby Assistance,1 Person Assistance,Use of Upper Extremities Equipment Transfer Assistive Device Gait Belt,Front Wheeled Walker Orthotic/Prosthetic Devices or Brace: No Transfers Transfer Destination Chair Transfer Technique ambulated Transfer Ability Level of Assist Standby Assistance,1 Person Assistance,Use of Upper Extremities Comments Mobility Comments Pt in chair upon arrival and reporting feeling better and wanting to go home and agreeable to ambulation in hallway. SBA for scooting and sit<>stand w/ FWW. Pt then ambulated `150 ft w/ FWW SBA w / correct use of FWW. Pt returned to room and chair and had mild SOB due to low activity tolerance. Pt left in chair w/ all needs in reach and breath settled. Gait Assessment Gait Gait Assistance Required: Standby Assistance,1 Person Assist Distance (Feet) 150 Able to Maintain Weight Bearing Status Yes During Gait Assistive Devices Assistive Device Gait Belt,Front Wheeled Walker Orthotic/Prosthetic Devices or Brace: No Gait Deviations General Gait Pattern Antalgic,Decreased Stride Length,Decreased Feet Clearance Factors Limiting Gait Function Factors Limiting Gait Function Decreased Activity Tolerance, Decreased Sensation,Decreased Strength,Pain,Poor Balance Comments Gait Comments Pt limited in gait distance due to low tolerance for activity and weakness R>L, but able to increase gait distance to 150 ft. PT-Balance Assessment Sitting Balance and Reactions Static Sitting Balance Ability Good Dynamic Sitting Balance Ability Good Standing Balance and Reactions Static Standing Balance Ability Fair Dynamic Standing Balance Ability Fair Device Used FWW M5 PT-IP Objective Assessments Start: 10/28/21 14:26 Freq: NEEDED Status: Active Protocol: Document 10/28/21 13:15 AB (Rec: 10/28/21 14:39 AB [id number]) Orientation Orientation/Cognition Level of Alertness Alert Orientation Name,Place,Situation Language Function Ability No Deficits Noted Safety Awareness Decreased Safety Awareness Memory Description No Deficits Noted Comments slight stutter but able to answer all questions Strength Lower Extremity Strength Assessment Right Impaired Hip 3+/5 Knee 3+/5 Comments Strength Comments LLE: 4-/5 Muscle Tone Muscle Tone WNL Yes M6 PT-IP Treatment Start: 10/28/21 14:26 Freq: NEEDED Status: Active Protocol: Document 10/31/21 10:14 KS (Rec: 10/31/21 12:37 KS [id number]) Physical Therapy Treatment Exercises Exercises Ankle Pumps Education Education Provided Safety M7 PT-IP Assessment and Plan Start: 10/28/21 14:26 Freq: NEEDED Status: Active Protocol: Document 10/31/21 10:14 KS (Rec: 10/31/21 12:37 KS [id number]) PT Summary Assessment and Plan Potential Rehabilitation Potential Good Status of Condition at Evaluation Stable Summary Impairments Pain,ROM,Strength,Balance, Coordination,Sensation,Tone, Cognition,Bed Mobility, Transfers,Gait,Activity Tolerance Progress Towards Goals Slow Progress due to Activity Tolerance Assessment Summary Pt SBA for all mobility, transfers, and gait today. She was able to ambulate `150 ft w/ FWW w/ mild SOB that recovered after sitting. Pt states she feels ready to go home. She will benefit from HHPT to improve strength and tolerance for activity. Goals Bed Mobility Goal Independent Transfer Goal Independent,Four Wheeled Walker Gait Goal Independent,Four Wheel Walker Gait Distance 150 Days to Meet Goals 10 Frequency of Treatment Frequency Of Treatment Once a Day Treatment Plan Physical Therapy Treatment Plan Bed Mobility Training,Transfer Training,Gait Training, Therapeutic Exercise,Balance Retraining,Discharge Planning, Hot or Cold Pack,Neuromuscular Re-ed,Coordination Retraining Other Recommendations and Next Treatment Increase gait distance Focus Recommendations To Nursing Amount of Assist Needed 1 Person Assist Discharge Recommendations PT Discharge Recommendations Home with Assistance,Home Health Transportation Needs at Discharge Private Vehicle
[2021-10-31] MEDS: KETOROLAC 30 MG/ML VIAL IV (11:32)
[2021-10-31 12:00] VITALS: BP 155/77; PULSE 80; RESP 17; TEMP 36.4; O2SAT 97
--- NOTE | 2021-10-31 12:42 | PM.DS.1 ---
History of Present Illness History of Present Illness Chief complaint: Nausea, dehydration Narrative: Ms. 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 Patient denies fever, chills, chest pain, dysuria, syncope, hematochezia, melena, cough, sputum production, wheezing, recent URI, illness, injury or trauma.? She denies any symptoms of bloating, constipation, diarrhea, or obstipation.???CT scan September 01, which shows a massive ventral hernia with the majority of her small bowel outside of the abdominal wall, with significant loss of domain of the abdominal compartment. Patient Dr Green general surgeon 08/2020 regarding hernia repair. ?Patient reports she has experienced some shortness of breath over the last 5 days.? Patient initially presented to the ED with blood pressure is 199/112, 230/102 upon admit patient's temp 98.4?, BP 158/101, HR 100, RR 20 O2 saturation 93% on 2L/NC.? Patient had a white count of 12.7, with a left shift neutrophils 11,300. Bicarb 34, glucose 139, D-dimer 259, lactate, troponin, procalcitonin, lipase all WNL.? BNP 364.? Patient's urinalysis was 2+ protein, wbc's 5-10, bacteria many>30-sent for urine culture.? Patient's chest x-ray demonstrated cardiomegaly with moderate vascular congestion suggesting possible left pleural effusion.? Patient's head CT demonstrated no acute intracranial processes.? Patient's abdominal CT demonstrated diffuse small bowel dilation with wall enhancement possibly ileus versus enteritis versus possible developing small bowel obstruction.? Patient admitted for intractable nausea and vomiting. Discharge Providers Provider Date of admission: 10/29/21 14:38 Discharge Date: 10/31/21 Primary care physician: Jessy Suarez DO Consults: 10/26/21 19:28 Consult to General Surgery Routine Comment: Consulting Provider: Wilfrido Russo Reason for consultation: Ileus vs enteritis vs developing SBO Has provider been notified: No 10/26/21 20:01 Consult to Respiratory Therapy Evaluate & Treat Comment: ABIOLA Cpap Physician Instructions: Evaluate and treat 10/28/21 12:08 Consult to Occupational Therapy Evaluate & Treat Comment: Physician Instructions: Evaluate and treat Consult to Physical Therapy Evaluate & Treat Comment: Physician Instructions: Evaluate and Treat Discharge provider: Radha Silva MD Summary Hospital Course Hospital Course: Ms. 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 1. Intractable nausea vomiting, abd pain (RLQ), and diarrhea, acute, of unknown etiology, present on admission She has been walking in her room, walking in the hallway, doing quite well and is eager to go home today. This surprises me since she is sitting, looking exceptionally well grounded, in her bedside chair. She has a very high BMI but remains quite mobile apparently. Her GI and urinary tract infection symptoms have resolved. Her magnesium of 1.4 was treated with 2 g of IV magnesium. -ileus versus enteritis verses possible developing small bowel obstruction -Hx of small-bowel perforation, multiple hernia repairs, abd surgeries, and large ventral hernia -ABD CT:? diffuse small bowel dilation with wall enhancement possibly ileus versus enteritis versus possible developing small bowel obstruction. -Per Dr. Fischre- Consult 08/2020: Large anterior abd wall ventral hernia containing large & small bowel loops without evidence of associated bowel strangulation or obstruction, and a right adrenal adenomyelolipoma. If the hernia is not repaired, of course she continues to have the risk of potential abdominal catastrophe if she develops of obstruction, incarceration, strangulation, or perforation of the bowel at some point. Then she would necessitate emergency surgery, and would likely have a very high morbidity mortality from the emergency surgery. -antiemetics-to control nausea and vomiting, anti-diarrhea medication -E.coli UTI completed 5 days of Ceftriaxone while inpatient 2. Hx of CVA with history of multiple old CVA and residual right sided weakness, chronic, present on admission -patient noted to have residual right sided weakness and stuttering -continue Plavix 3. Essential hypertension, acute on chronic, present on admission -continue prazosin, verapamil ? 4. . Migraine associated with CVA in past, chronic, present on admission -continue Depakote, imitrex 5. COPD, chronic, present on admission -continue Spiriva, Ventolin HFA -no exacerbation currently 6. Depression, chronic, present on admission -continue bupropion 7. [id number] type 2 diabetes, chronic, present on admission -continue metformin -patient admitted under diabetic protocol, blood sugar checks q.6 hours while NPO 8. ABIOLA on CPAP, chronic, present on admission -respiratory consult ordered for CPAP 9. Morbid obesity, as evidence by BMI of 46.6, acute on chronic, present on admission -previous dietary consult on last hospital visit 08/2021 -BMI 46.6, outpatient follow up 10. Depression, chronic, present on admission -continue sertraline Status at Discharge Cognitive/behavioral status at discharge: at baseline, oriented Functional status at discharge: uses cane/walker Overall status at discharge: patient is progressing back to baseline Time Spent with Patient Time spent: Greater than 30 minutes Exam Vital Signs (past 8 hours): - 10/31/21 06:52 10/31/21 08:00 10/31/21 08:48 Temperature 97.3 F L 97.3 F L Pulse Rate 83 88 85 Respiratory Rate 14 20 Blood Pressure 144/61 H 148/74 H 159/71 H Pulse Oximetry 98 95 Oxygen Delivery Method Room Air Oxygen Flow Rate 0 Narrative Exam Narrative: On exam heart is regular rate and rhythm without murmur, lungs are clear to auscultation bilaterally, extremities have no ankle edema, abdomen is impressively protuberant. Nontender, soft. Objective Labs Result Diagrams: 10/29/21 15:00 10/29/21 15:00 [facility] Medical History Acute kidney injury (~12/2018) Adrenal mass Cardiomegaly Depression with anxiety Easy bruisability History of concussion History of recurrent TIAs History of stroke Hyperlipidemia associated with type 2 diabetes mellitus Hypothyroid Migraine Morbid obesity with BMI of 45.0-49.9, adult Neuropathy ABOILA on CPAP Osteopenia Polyneuropathy Radiculopathy Type 2 diabetes mellitus Vitamin D deficiency Surgical History History of 3 sections History of lumbar spinal fusion (06/27/17) History of lumbar spinal fusion (11/26/19) History of ventral hernia repair Hx of umbilical hernia repair S/P cholecystectomy S/P trigger finger release Family History Mother Heart disease Father Heart disease Grandfather Diabetes mellitus Other Family history non-contributory Social History marital status: unknown household members: none Smoking Status: Never smoker alcohol intake: never substance use type: does not use Discharge Plan Discharge Plan Patient Disposition: Home Provider Discharge Comment: Follow up with Dr. Sofia Suarez in one week. Discharge orders & Medications Prescriptions: Continued prazosin 2 mg capsule 2 mg PO BEDTIME 0RF clopidogrel 75 mg Tablet 75 mg PO DAILY Qty: 30 0RF verapamil 80 mg Tablet 80 mg PO TID 0RF sumatriptan succinate 6 mg/0.5 mL Pen Injector 6 mg SUBCUT Q8HR PRN (Reason: Headache) 0RF losartan 50 mg Tablet 50 mg PO DAILY 0RF Rx Instructions: Losartan potassium divalproex 250 mg Tablet,Delayed Release (Dr/Ec) 250 mg PO BID 0RF albuterol sulfate [Ventolin HFA] 90 mcg/actuation Hfa Aerosol Inhaler 2 puff INHALATION Q6H PRN (Reason: Shortness Of Breath) 0RF Spiriva Respimat 1.25 mcg/actuation Mist 2 puff INHALATION DAILY 0RF metformin 500 mg Tablet 1,000 mg PO BID 0RF gabapentin 600 mg tablet 600 mg PO TID PRN (Reason: pain) 0RF sertraline 100 mg tablet 100 mg PO DAILY 0RF Label Comments: take 1 tablet by mouth once daily for anxiety bupropion HCl 300 mg tablet extended release 24 hr 300 mg PO DAILY Qty: 0 0RF Follow up/Referrals: Jessy Suarez DO [Primary Care Provider] - Diet/Activity/Treatments Diet: Diet as Tolerated Visit Report/Discharge Packet Instructions: DI for Ileus, DI for Abdominal Pain-Adult, Abdominal Hernia Discharge Data Primary Care Provider: Jessy Suarez VTE Deep Vein Thrombosis/Pulmonary Embolism Present on Admission: No
--- NOTE | 2021-10-31 14:57 | PC.NURSE ---
Pt feels ready to d/c to home. Seen by MD and given d/c instructions. Is tolerating diet and reports her abd is much less crampy feeling. Reviewed d/c packet. Questions answered. D/c to home via auto with friends.
--- NOTE | 2021-10-31 15:36 | CM.DPNOTE ---
DC Note DC home today w/[facility] and resumption of [facility]. PT has cleared patient for this plan DC Summary is not available to fax to [facility] at time of this note; did make a call to Yamini at [facility], had to LM, updated that patient is returning home today Patient agreeable to plan JW
== END 2021-10-31 13:30 | disposition home health service (06) | DRG 392 ==
LOC: ED 18:17 → AC 10-27 08:44
PROVIDERS: Emergency Medicine; Student in an Organized Health Care Education/Training Program; Admitting Provider Nurse Practitioner Family; Emergency Provider Student in an Organized Health Care Education/Training Program; PCP Family Medicine; Visit Provider Nurse Practitioner Family
DX: R11.2 Nausea with vomiting, unspecified (principal); I69.951 Hemiplegia and hemiparesis following unspecified cerebrovascular disease affecting right dominant side; Z68.42 Body mass index [BMI] 45.0-49.9, adult; N39.0 Urinary tract infection, site not specified; K56.7 Ileus, unspecified; I69.398 Other sequelae of cerebral infarction; G43.809 Other migraine, not intractable, without status migrainosus; E66.01 Morbid (severe) obesity due to excess calories; B96.20 Unspecified Escherichia coli [E. coli] as the cause of diseases classified elsewhere; I10 Essential (primary) hypertension; J44.9 Chronic obstructive pulmonary disease, unspecified; F32.A Depression, unspecified; E11.9 Type 2 diabetes mellitus without complications; R10.31 Right lower quadrant pain; K52.9 Noninfective gastroenteritis and colitis, unspecified; Z20.822 Contact with and (suspected) exposure to COVID-19; Z79.84 Long term (current) use of oral hypoglycemic drugs
CPT/HCPCS: 36415; 70450; 71046; 74177; 80048; 80053; 81001; 81003; 82962; 83605; 83690; 83735; 83880; 84145; 84484; 85025; 85379; 87077; 87086; 87186; 87635; 93005; 94660; 94760; 96365; 96375; 97116; 97161; 99225; 99284; 99285; C9803; G0378; J0696; J1650; J1815; J1885; J2765; J3475; Q9967

== ENCOUNTER 2022-06-22 20:22 | Inpatient (IN) | payer MEDICARE, MEDICAID, SELFPAY ==
[2021-10-26 19:11] VITALS: BMI 46.7
[2022-06-22] VITALS (11 sets, daily range): BP systolic 146–168; BP diastolic 66–107; PULSE 90–98; RESP 16–34; TEMP 36.6; O2SAT 93–98; BMI 44.9
--- NOTE | 2022-06-22 20:36 | DI.RAD.S_ITS ---
PROCEDURE: XR CHEST 1V INDICATIONS: weak dizzy TECHNIQUE: One view of the chest was acquired. COMPARISON: [facility], CR, XR CHEST 2V, 10/26/2021, 14:51. FINDINGS: Surgical changes and devices: None. Lungs and pleura: Evaluation limited by body habitus. There is pulmonary vascular prominence suggestive of mild pulmonary edema. The costophrenic angles are not well visualized but there are suspected small pleural effusions. No evidence of pneumothorax. Mediastinum: Mediastinal contours are unchanged. Heart size is enlarged. Bones and chest wall: No suspicious bony lesions. Overlying soft tissues appear unremarkable. IMPRESSION: 1. Limited study demonstrates pulmonary vascular prominence suggestive of mild pulmonary edema. 2. Possible small bilateral pleural effusions, with the costophrenic angles not well visualized. Dictated by: Brijesh Bear M.D. on 06/22/2022 at 21:57 Approved by: Brijesh Bear M.D. on 06/22/2022 at 21:59
[2022-06-22] MEDS: SODIUM CHLORIDE 0.9% 1,000 ML 1000 ML IV (21:01)
[2022-06-22 21:06] LABS: Add Manual Diff / Slide Review NO; Basophils Absolute Auto 100 /uL (0-100); Basophils Percent Auto 0.9 % (0-2); Eosinophils Absolute Auto 200 /uL (0-450); Eosinophils Percent Auto 3.3 % (2-4); Hemoglobin 11.7 g/dL (12.0-16.0); Lymphocytes Absolute Auto 1400 /uL (1100-4500); Lymphocytes Percent Auto 19.3 % (25-40); Mean Corpuscular HGB Conc 33.3 % (30-36); Mean Corpuscular Hemoglobin 31.1 PG (26-34); Mean Corpuscular Volume 93.3 fL (80-100); Monocytes Absolute Auto 700 /uL (0-900); Neutrophils Absolute Auto 4900 /uL (1500-7000); Neutrophils Percent Auto 66.5 % (50-75); Platelet Count 273 X10^3/uL (150-400); Red Blood Cell Count 3.75 X10^6/uL (4.0-5.2); Red Cell Distribution Width 14.1 % (11.6-14.8); White Blood Cell Count 7.3 X10^3/uL (4.5-11.0)
[2022-06-22 21:08] LABS: COVID19 -Nasal RAPID Negative (Negative)
[2022-06-22 21:13] LABS: Alanine Aminotransferase 16 IU/L (<35); Albumin 3.7 g/dL (3.5-5.0); Alkaline Phosphatase 71 U/L (38-126); Aspartate Aminotransferase 22 IU/L (14-36); BUN Creatinine Ratio 14.2 (6-22); Bilirubin Total 0.3 mg/dL (0.2-1.3); Blood Urea Nitrogen 32 mg/dL (7-17); Carbon Dioxide 22 mmol/L (22-32); Chloride 108 mmol/L (98-107); Creatine Kinase 81 U/L (30-135); Estimated Glomerular Filt Rate 23 mL/min (>60); Globulin 3.7 g/dL (1.7-4.1); Glucose 102 mg/dL (80-110); Lactate (Lactic Acid) 1.6 mmol/L (0.7-2.1); Magnesium 1.4 mg/dL (1.6-2.3); Potassium 4.7 mmol/L (3.4-5.1); Sodium 140 mmol/L (137-145); Total Protein 7.4 g/dL (6.3-8.2)
[2022-06-22 21:14] LABS: HEMOLYSIS 53 (0-50)
[2022-06-22 21:24] LABS: NT-proBNP (BNP-Adult 18+) 374 pg/mL (<125); Troponin I < 0.012 ng/mL (0.01-0.034)
[2022-06-23] VITALS (16 sets, daily range): BP systolic 144–165; BP diastolic 70–104; PULSE 89–99; RESP 16–24; TEMP 36–36.3; O2SAT 91–97; BMI 46.9
[2022-06-23] MEDS: SODIUM CHLORIDE 0.9% 1,000 ML 1000 ML IV (00:41)
[2022-06-23] MEDS: METOCLOPRAMIDE 10 MG/2 ML INJ IV (00:42)
[2022-06-23] MEDS: KETOROLAC 30 MG/ML VIAL 15 MG IV (00:42)
--- NOTE | 2022-06-23 01:15 | ED_ITS ---
HPI - Dizziness General Chief Complaint: Dizziness Stated Complaint: weak/dizzy/diarrhea Time Seen by Provider: 06/22/22 20:35 Source: patient and EMS Mode of arrival: EMS History of Present Illness HPI Narrative: 72F nonsmoker with history of prior stroke, migraines, kidney disease presents with N/V/D for the past few days and a migraine that started earlier today. She feels fatigued, dizzy, and weak. She denies fever or chills. She denies any chest pain or shortness of breath. She denies any recent antibiotics, new medications dietary change or exposure to ill persons. She states that she is been having migraines ever since her stroke and this 1 came on rather gradually today on the right side of her head which is typical for her. She states it is worse with bright lights, loud noise and any exertion which is also typical for her. She denies any neck pain or extremity numbness, tingling or weakness. She denies any change in her urinary habits. She states that she sees Nephrology at [facility] but is unclear what her baseline numbers tend to be. Related Data Home Medications Medication Instructions Recorded Confirmed metformin 500 mg tablet 1,000 mg PO BID 02/02/18 02/26/22 gabapentin 600 mg tablet 600 mg PO TID PRN pain 04/19/18 02/26/22 prazosin 2 mg capsule 2 mg PO BEDTIME 09/11/20 02/26/22 sertraline 100 mg tablet 100 mg PO DAILY 09/24/21 02/26/22 albuterol sulfate 90 mcg/actuation 2 puff inhalation Q6H PRN 10/26/21 02/26/22 aerosol inhaler (Ventolin HFA) Shortness Of Breath divalproex 250 mg tablet,delayed 250 mg PO BID 10/26/21 02/26/22 release losartan 50 mg tablet 50 mg PO DAILY 10/26/21 02/26/22 sumatriptan succinate 6 mg/0.5 mL 6 mg SUBCUT Q8HR PRN Headache 10/26/21 02/26/22 subcutaneous pen injector tiotropium bromide 1.25 2 puff inhalation DAILY 10/26/21 02/26/22 mcg/actuation mist for inhalation (Spiriva Respimat) verapamil 80 mg tablet 80 mg PO TID 01/31/22 06/03/22 Previous Rx's Medication Instructions Recorded clopidogrel 75 mg tablet 75 mg PO DAILY #30 tabs 01/25/20 bupropion HCl 300 mg 24 hr tablet, 300 mg PO DAILY #0 tabs 09/26/21 extended release Allergies Allergy/AdvReac Type Severity Reaction Status Date / Time vancomycin Allergy Intermediate Flushing & Verified 02/26/22 10:57 rash Review of Systems Review of Systems Narrative: GENERAL: See HPI HEENT: Denies sinus pain, ear pain, sore throat, difficulty swallowing, dizziness. RESPIRATORY: Denies dyspnea, cough, wheezing, hemoptysis, sputum. CARDIOVASCULAR: Denies chest pain, palpitations, orthopnea, edema, GASTROINTESTINAL: See HPI : Denies dysuria, frequency, incontinence, hematuria, urinary retention. MUSCULOSKELETAL: denies weakness, joint pain, or bony pain SKIN: Denies rash, skin lesions, or other NEUROLOGIC: See HPI PSYCHIATRIC: No concerning psychosocial issues. 12 point review of systems is negative except for those stated above Patient History Medical History Acute kidney injury (~12/2018) Adrenal mass Cardiomegaly Depression with anxiety Easy bruisability Enteritis History of concussion History of recurrent TIAs History of stroke Hyperlipidemia associated with type 2 diabetes mellitus Hypothyroid Migraine Morbid obesity with BMI of 45.0-49.9, adult Neuropathy ABIOLA on CPAP Osteopenia Polyneuropathy Radiculopathy Type 2 diabetes mellitus Vitamin D deficiency Surgical History History of 3 sections History of lumbar spinal fusion (06/27/17) History of lumbar spinal fusion (11/26/19) History of ventral hernia repair Hx of umbilical hernia repair S/P cholecystectomy S/P trigger finger release Family History Mother Heart disease Father Heart disease Grandfather Diabetes mellitus Other Family history non-contributory Social History marital status: unknown household members: none Smoking Status: Never smoker alcohol intake: never substance use type: does not use Smoking Status: Never smoker alcohol intake frequency: 0-2 drinks per day Substance Use Type: does not use and painkillers Exam Narrative Exam Narrative: GENERAL: [72] year old patient appears stated age. Well-developed patient, in mild distress. GCS 15 HEAD: Atraumatic. Normocephalic. EYES: Pupils equal round and reactive. Extraocular motions intact. No scleral icterus. No injection or drainage. ENT: Nose without bleeding, purulent drainage. Throat without erythema, tonsillar hypertrophy or exudate. Airway patent. NECK: Trachea midline. Non tender CARDIOVASCULAR: Regular rate and rhythm without murmurs, gallops, or rubs. RESPIRATORY: Clear to auscultation. Breath sounds equal bilaterally. No wheezes, rales, or rhonchi. GASTROINTESTINAL: Abdomen soft, non-tender, nondistended. EXTREMITIES: No edema or joint tenderness. BACK: Nontender without deformity or crepitance. No flank tenderness. NEURO: AOx3. Cranial nerves 2-12 grossly intact SKIN: No rash or erythema of visible areas Initial Vital Signs Initial Vital Signs: Vital Signs Pulse Rate 90 06/22/22 20:35 Pulse Oximetry 96 06/22/22 20:35 Course Orders Ordered: ED Orders 06/22/22 20:36 XR chest 1V Stat EKG-12 Lead Stat 06/22/22 20:42 COVID19 -Nasal RAPID/Pre-Proc Stat 06/22/22 20:43 GI Panel (Film Array) Stat 06/22/22 20:53 Complete Blood Count AUTO DIFF Stat Comprehensive Metabolic Panel Stat Lactate (Lactic Acid) Stat Magnesium Stat NT-proBNP (BNP-Adult 18+) Stat Troponin & CK Cardiac Panel Stat 06/22/22 23:37 Blood Culture Stat 06/23/22 01:56 US renal complete Stat 06/23/22 01:57 BMP [Basic Metabolic Panel] Stat 06/23/22 03:24 Creatinine Urine Random Stat Sodium Urine Random Stat 06/23/22 03:30 CT abdomen pelvis wo con Stat 06/23/22 03:40 Education, smoking cessation ONGOING 06/23/22 05:00 Complete Blood Count AUTO DIFF DAILY 06/24/22 05:00 Complete Blood Count AUTO DIFF DAILY 06/25/22 05:00 Complete Blood Count AUTO DIFF DAILY Albuterol (Albuterol 2.5 Mg/3 Ml Neb (Adult)) 2.5 mg INH Q6H PRN PRN Reason: SHORTNESS OF BREATH Bismuth Subsalicylate (Bismuth Subsalicylate 525 Mg/30 Ml Susp) 30 ml PO QID PRN PRN Reason: Dyspepsia Hydromorphone HCl (Hydromorphone 0.5 Mg Inj) 0.5 mg IV Q4H PRN PRN Reason: Breakthrough pain only (8-10) Sodium Chloride (Normal Saline 0.9%) 1,000 mls @ 100 mls/hr IV CONT DANN Magnesium Sulfate (Magnesium Sulfate) 2 gm in 50 mls @ 25 mls/hr IV NOW ONE Stop: 06/23/22 05:57 Loperamide HCl (Loperamide 2 Mg/15 Ml Udc) 2 mg PO Q4H PRN PRN Reason: Diarrhea Naloxone HCl (Naloxone 0.4 Mg/Ml Vial) 0.1 mg IV Q2MIN PRN PRN Reason: Opiate Reversal Ondansetron HCl (Ondansetron 4 Mg/2 Ml Inj) 4 mg IV Q8HR PRN PRN Reason: Nausea And Vomiting Discontinued Medications Albuterol (Albuterol Hfa Mdi 60 Puff/8 Gm Inhaler) 2 puff INH Q6H PRN PRN Reason: Shortness Of Breath Albuterol (Albuterol 2.5 Mg/3 Ml Neb (Adult)) 2.5 mg INH Q4H PRN PRN Reason: SHORTNESS OF BREATH Sodium Chloride (Normal Saline 0.9%) 1,000 mls @ 1,000 mls/hr IV BOLUS ONE Stop: 06/22/22 21:34 Last Infusion: 06/22/22 22:38 Dose: 0 mls/hr Documented By: Admin: 06/22/22 21:01 Dose: 1,000 mls/hr Documented By: REYNALDO Sodium Chloride (Normal Saline 0.9%) 1,000 mls @ 1,000 mls/hr IV BOLUS ONE Stop: 06/23/22 01:25 Last Infusion: 06/23/22 01:58 Dose: 0 mls/hr Documented By: Admin: 06/23/22 00:41 Dose: 1,000 mls/hr Documented By: STEVO Ketorolac Tromethamine (Ketorolac 30 Mg/Ml Vial) 15 mg IV NOW ONE Stop: 06/23/22 00:27 Last Admin: 06/23/22 00:42 Dose: 15 mg Documented By: STEVO Metoclopramide HCl (Metoclopramide 10 Mg/2 Ml Inj) 10 mg IV NOW ONE Stop: 06/23/22 00:27 Last Admin: 06/23/22 00:42 Dose: 10 mg Documented By: STEVO Vital Signs Vital signs: Vital Signs - 8 hr 06/22/22 21:00 06/22/22 21:00 06/22/22 21:30 Pulse Rate 91 H Pulse Rate [Orthostatic Lying] Pulse Rate [Orthostatic Sitting] Pulse Rate [Orthostatic Standing] Respiratory Rate Blood Pressure 154/73 H 162/76 H Blood Pressure [Orthostatic Lying] Blood Pressure [Orthostatic Sitting] Blood Pressure [Orthostatic Standing] Pulse Oximetry 97 06/22/22 21:30 06/22/22 22:08 06/22/22 22:00 Pulse Rate 91 H Pulse Rate [Orthostatic Lying] 91 H Pulse Rate [Orthostatic Sitting] 98 H Pulse Rate [Orthostatic Standing] 97 H Respiratory Rate 18 Blood Pressure 162/107 H Blood Pressure [Orthostatic Lying] 168/104 H Blood Pressure [Orthostatic Sitting] 147/81 H Blood Pressure [Orthostatic Standing] 166/80 H Pulse Oximetry 96 06/22/22 22:00 06/22/22 22:03 06/22/22 22:03 Pulse Rate 93 H 97 H Pulse Rate [Orthostatic Lying] Pulse Rate [Orthostatic Sitting] Pulse Rate [Orthostatic Standing] Respiratory Rate 34 H Blood Pressure 147/81 H Blood Pressure [Orthostatic Lying] Blood Pressure [Orthostatic Sitting] Blood Pressure [Orthostatic Standing] Pulse Oximetry 96 06/22/22 22:04 06/22/22 22:04 06/22/22 22:30 Pulse Rate 96 H Pulse Rate [Orthostatic Lying] Pulse Rate [Orthostatic Sitting] Pulse Rate [Orthostatic Standing] Respiratory Rate Blood Pressure 166/80 H 162/73 H Blood Pressure [Orthostatic Lying] Blood Pressure [Orthostatic Sitting] Blood Pressure [Orthostatic Standing] Pulse Oximetry 98 06/22/22 22:30 06/22/22 23:00 06/22/22 23:00 Pulse Rate 92 H 92 H Pulse Rate [Orthostatic Lying] Pulse Rate [Orthostatic Sitting] Pulse Rate [Orthostatic Standing] Respiratory Rate 21 17 Blood Pressure 156/76 H Blood Pressure [Orthostatic Lying] Blood Pressure [Orthostatic Sitting] Blood Pressure [Orthostatic Standing] Pulse Oximetry 96 93 06/22/22 23:30 06/22/22 23:30 06/23/22 00:00 Pulse Rate 91 H Pulse Rate [Orthostatic Lying] Pulse Rate [Orthostatic Sitting] Pulse Rate [Orthostatic Standing] Respiratory Rate 18 Blood Pressure 156/73 H 155/74 H Blood Pressure [Orthostatic Lying] Blood Pressure [Orthostatic Sitting] Blood Pressure [Orthostatic Standing] Pulse Oximetry 93 06/23/22 00:00 06/23/22 00:30 06/23/22 00:30 Pulse Rate 90 90 Pulse Rate [Orthostatic Lying] Pulse Rate [Orthostatic Sitting] Pulse Rate [Orthostatic Standing] Respiratory Rate 19 17 Blood Pressure 156/76 H Blood Pressure [Orthostatic Lying] Blood Pressure [Orthostatic Sitting] Blood Pressure [Orthostatic Standing] Pulse Oximetry 94 94 06/23/22 01:00 06/23/22 01:00 06/23/22 01:30 Pulse Rate 90 Pulse Rate [Orthostatic Lying] Pulse Rate [Orthostatic Sitting] Pulse Rate [Orthostatic Standing] Respiratory Rate 17 Blood Pressure 160/70 H 160/71 H Blood Pressure [Orthostatic Lying] Blood Pressure [Orthostatic Sitting] Blood Pressure [Orthostatic Standing] Pulse Oximetry 94 06/23/22 01:30 06/23/22 02:00 Pulse Rate 91 H 92 H Pulse Rate [Orthostatic Lying] Pulse Rate [Orthostatic Sitting] Pulse Rate [Orthostatic Standing] Respiratory Rate 20 24 Blood Pressure Blood Pressure [Orthostatic Lying] Blood Pressure [Orthostatic Sitting] Blood Pressure [Orthostatic Standing] Pulse Oximetry 94 94 MDM - Dizziness Lab Data Result diagrams: 06/22/22 20:53 06/23/22 01:57 Labs: Lab Results 06/22/22 06/22/22 06/22/22 Range/Units 20:42 20:53 20:53 WBC 7.3 (4.5-11.0) X10^3/uL RBC 3.75 L (4.0-5.2) X10^6/uL Hgb 11.7 L (12.0-16.0) g/dL Hct 35.0 L (36-46) % MCV 93.3 (80-100) fL MCH 31.1 (26-34) PG MCHC 33.3 (30-36) % RDW 14.1 (11.6-14.8) % Plt Count 273 (150-400) X10^3/uL Neut % (Auto) 66.5 (50-75) % Lymph % (Auto) 19.3 L (25-40) % [place] % (Auto) 10.0 (3-14) % Eos % (Auto) 3.3 (2-4) % Baso % (Auto) 0.9 (0-2) % Neut # (Auto) 4900 (8746-8428) /uL Lymph # (Auto) 1400 (6700-2815) /uL [place] # (Auto) 700 (0-900) /uL Eos # (Auto) 200 (0-450) /uL Baso # (Auto) 100 (0-100) /uL Sodium 140 (137-145) mmol/L Potassium 4.7 (3.4-5.1) mmol/L Chloride 108 H (98-107) mmol/L Carbon Dioxide 22 (22-32) mmol/L BUN 32 H (7-17) mg/dL Creatinine 2.25 H (0.52-1.04) mg/dL Estimated GFR 23 L (>60) mL/min BUN/Creatinine Ratio 14.2 (6-22) Glucose 102 (80-110) mg/dL Lactate (0.7-2.1) mmol/L Calcium 9.0 (8.4-10.2) mg/dL Magnesium 1.4 L (1.6-2.3) mg/dL Total Bilirubin 0.3 (0.2-1.3) mg/dL AST 22 (14-36) IU/L ALT 16 (<35) IU/L Alkaline Phosphatase 71 (38-126) U/L Total Creatine Kinase 81 (30-135) U/L CK-MB (CK-2) TNP CK-MB (CK-2) Rel Index TNP Troponin I < 0.012 (0.01-0.034) ng/mL NT-Pro-B Natriuret Pep 374 H (<125) pg/mL Total Protein 7.4 (6.3-8.2) g/dL Albumin 3.7 (3.5-5.0) g/dL Globulin 3.7 (1.7-4.1) g/dL Albumin/Globulin Ratio 1.0 (1.0-2.8) SARS-CoV-2 (PCR) Negative (Negative) 06/22/22 06/23/22 Range/Units 20:53 01:57 WBC (4.5-11.0) X10^3/uL RBC (4.0-5.2) X10^6/uL Hgb (12.0-16.0) g/dL Hct (36-46) % MCV (80-100) fL MCH (26-34) PG MCHC (30-36) % RDW (11.6-14.8) % Plt Count (150-400) X10^3/uL Neut % (Auto) (50-75) % Lymph % (Auto) (25-40) % [place] % (Auto) (3-14) % Eos % (Auto) (2-4) % Baso % (Auto) (0-2) % Neut # (Auto) (5000-7216) /uL Lymph # (Auto) (0813-8414) /uL [place] # (Auto) (0-900) /uL Eos # (Auto) (0-450) /uL Baso # (Auto) (0-100) /uL Sodium 141 (137-145) mmol/L Potassium 4.3 (3.4-5.1) mmol/L Chloride 112 H (98-107) mmol/L Carbon Dioxide 21 L (22-32) mmol/L BUN 30 H (7-17) mg/dL Creatinine 1.94 H (0.52-1.04) mg/dL Estimated GFR 27 L (>60) mL/min BUN/Creatinine Ratio 15.5 (6-22) Glucose 92 (80-110) mg/dL Lactate 1.6 (0.7-2.1) mmol/L Calcium 8.2 L (8.4-10.2) mg/dL Magnesium (1.6-2.3) mg/dL Total Bilirubin (0.2-1.3) mg/dL AST (14-36) IU/L ALT (<35) IU/L Alkaline Phosphatase (38-126) U/L Total Creatine Kinase (30-135) U/L CK-MB (CK-2) CK-MB (CK-2) Rel Index Troponin I (0.01-0.034) ng/mL NT-Pro-B Natriuret Pep (<125) pg/mL Total Protein (6.3-8.2) g/dL Albumin (3.5-5.0) g/dL Globulin (1.7-4.1) g/dL Albumin/Globulin Ratio (1.0-2.8) SARS-CoV-2 (PCR) (Negative) Discharge Plan Departure Patient Disposition: Admitted As Inpatient Clinical Impression: Acute renal injury Admit Date/Time: 06/23/22 03:51 Admit Provider: Carlotta Bradley
--- NOTE | 2022-06-23 01:56 | DI.US.S_ITS ---
PROCEDURE: US RENAL COMPLETE INDICATIONS: renal failure TECHNIQUE: Real-time scanning was performed of the kidneys and bladder, with image documentation. COMPARISON: [facility], CT, CT ABDOMEN PELVIS WO CON, 06/23/2022, 4:01. FINDINGS: This is a markedly limited study due to overlying bowel gas. Kidneys: Right kidney measures 9.9 cm long. Right renal cortical thickness is 1.4 cm. There is a 2.3 x 2.0 x 1.4 cm echogenic adrenal gland mass consistent with the patient's known adrenal mass described on prior CT examinations. Bladder: Pre-void bladder volume is 0 mL. Post-void residual could not be evaluated. Miscellaneous: No free pelvic fluid. IMPRESSION: 1. Right adrenal gland mass redemonstrated. 2. No hydronephrosis. Dictated by: Sayda Blount M.D. on 06/23/2022 at 8:12 Approved by: Sayda Blount M.D. on 06/23/2022 at 8:22
[2022-06-23 02:59] LABS: BUN Creatinine Ratio 15.5 (6-22); Blood Urea Nitrogen 30 mg/dL (7-17); Calcium 8.2 mg/dL (8.4-10.2); Carbon Dioxide 21 mmol/L (22-32); Chloride 112 mmol/L (98-107); Estimated Glomerular Filt Rate 27 mL/min (>60); Glucose 92 mg/dL (80-110); HEMOLYSIS < 15 (0-50); Potassium 4.3 mmol/L (3.4-5.1); Sodium 141 mmol/L (137-145)
--- NOTE | 2022-06-23 03:30 | DI.CT.S_ITS ---
PROCEDURE: CT ABDOMEN PELVIS WO CON INDICATIONS: diarrhea, nausea, hx ileus TECHNIQUE: Noncontrast 5 mm thick sections acquired from the diaphragms to the symphysis. 5 mm coronal and sagittal reformats were then performed. For radiation dose reduction, the following was used: automated exposure control, adjustment of mA and/or kV according to patient size. COMPARISON: [facility], CT, CT ABDOMEN PELVIS W CON, 10/29/2021, 13:48. FINDINGS: Image quality: Excellent. ABDOMEN: Lung bases: Bibasilar scarring/atelectasis is seen. Heart size is enlarged, no pericardial effusion. Moderate atherosclerotic plaques are seen in coronary vessels. Solid organs: Liver is normal in size. Gallbladder is surgically absent. Pancreas is normal in contours. Spleen is normal in size. Previously described 3.5 cm right adrenal nodule with central fat density remains unchanged and likely represent myelolipoma. No left adrenal nodule. Kidneys are normal in size, without hydronephrosis or nephrolithiasis. Small simple left renal cyst is again seen and unchanged. Peritoneum and bowel: Unenhanced bowel loops demonstrate normal wall thickness and caliber. No free fluid or air. No abscess collection. Appendix is surgically absent. Nodes and vessels: No retroperitoneal or mesenteric adenopathy by size criteria. Aorta and inferior vena cava are normal in caliber. Miscellaneous: Large ventral hernia is again seen with majority of bowel loops within herniation sac unchanged from prior studies. No signs of incarceration is seen. PELVIS: Genitourinary: Bladder wall thickness is normal. Miscellaneous: No inguinal hernias or adenopathy. Bones: No suspicious bony lesions. No vertebral body compression fractures. Extensive postsurgical changes are noted throughout lumbar spine from prior lumbar spine fusion. No gross hardware loosening or failure. IMPRESSION: 1. Large ventral hernia containing majority of bowel loops unchanged from prior studies. No evidence of bowel obstruction or abnormal bowel wall thickening. No free fluid or free air. 2. Stable appearing 3.5 cm right adrenal nodule with central fat density most consistent with myelolipoma. 3. No renal stones or hydronephrosis. Small left renal cyst unchanged from prior studies. Dictated by: Jean Pierre Miramontes M.D. on 06/23/2022 at 9:52 Approved by: Jean Pierre Miramontes M.D. on 06/23/2022 at 9:57
--- NOTE | 2022-06-23 04:29 | PM.HP.1 ---
History of Present Illness History of Present Illness Date Patient Seen: 06/23/22 Time Patient Seen: 04:29 Chief complaint: weak/dizzy/diarrhea Narrative: Ms. 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 She feels fatigued, dizzy, mildly SOB, and weak, with abdominal pain and cramping in the right lower quadrant, currently 5/10.? Patient denies fever, chills, chest pain, dysuria, syncope, hematochezia, melena, cough, sputum production, wheezing, recent URI, illness, injury or trauma. Patient notes that she is been scheduled at [facility] on July 05 for a colonoscopy an EGD. Upon admit exam patient is sitting on the side of the bed, calm relaxed and in no distress at this time. Vitals upon admit temp 98?, BP 160/71, HR 92, R 24, O2 saturation 94% on room air. Patient does present today was some mild anemia H&H 11.7/35 RBC 3.75, no anemia noted on previous hospitalization. Patient's renal function was also normal on 10/29/2021 presents today in SHARON-initial chemistries in the ED chloride 108, CO2 22, BUN 32, creatinine 2.25, GFR 23 patient then received 2 L of fluid repeat labs chloride 112, BUN 30, CO2 21, creatinine 1.94, GFR 27. BUN was unremarkable at 374, lactate negative. UA and abdominal imaging without contrast are pending. Patient admitted for intractable nausea, vomiting, diarrhea, resulting in SHARON. Patient History Medical History Acute kidney injury (~12/2018) Adrenal mass Cardiomegaly Depression with anxiety Easy bruisability Enteritis History of concussion History of recurrent TIAs History of stroke Hyperlipidemia associated with type 2 diabetes mellitus Hypothyroid Migraine Morbid obesity with BMI of 45.0-49.9, adult Neuropathy ABIOLA on CPAP Osteopenia Polyneuropathy Radiculopathy Type 2 diabetes mellitus Vitamin D deficiency Surgical History History of 3 sections History of lumbar spinal fusion (06/27/17) History of lumbar spinal fusion (11/26/19) History of ventral hernia repair Hx of umbilical hernia repair S/P cholecystectomy S/P trigger finger release Family & Social History Family History Mother Heart disease Father Heart disease Grandfather Diabetes mellitus Other Family history non-contributory Social History: household members none Safety & Behavioral: Feels Safe in Current Yes Environment Been Physically Hurt or No Threatened By a Person Tobacco & Substance use: Smoking Status Never smoker alcohol intake never alcohol intake frequency 0-2 drinks per day Substance Use Type painkillers,does not use Meds Home Medications and Allergies Home Medications Medication Instructions Recorded Confirmed Type metformin 500 mg tablet 1,000 mg PO BID 02/02/18 02/26/22 History gabapentin 600 mg tablet 600 mg PO TID PRN pain 04/19/18 02/26/22 History clopidogrel 75 mg tablet 75 mg PO DAILY #30 tabs 01/25/20 02/26/22 Rx prazosin 2 mg capsule 2 mg PO BEDTIME 09/11/20 02/26/22 History sertraline 100 mg tablet 100 mg PO DAILY 09/24/21 02/26/22 History bupropion HCl 300 mg 24 hr tablet, 300 mg PO DAILY #0 tabs 09/26/21 02/26/22 Rx extended release albuterol sulfate 90 mcg/actuation 2 puff inhalation Q6H PRN 10/26/21 02/26/22 History aerosol inhaler (Ventolin HFA) Shortness Of Breath divalproex 250 mg tablet,delayed 250 mg PO BID 10/26/21 02/26/22 History release losartan 50 mg tablet 50 mg PO DAILY 10/26/21 02/26/22 History sumatriptan succinate 6 mg/0.5 mL 6 mg SUBCUT Q8HR PRN Headache 10/26/21 02/26/22 History subcutaneous pen injector tiotropium bromide 1.25 2 puff inhalation DAILY 10/26/21 02/26/22 History mcg/actuation mist for inhalation (Spiriva Respimat) verapamil 80 mg tablet 80 mg PO TID 10/26/21 02/26/22 History Allergies Allergy/AdvReac Type Severity Reaction Status Date / Time vancomycin Allergy Intermediate Flushing & Verified 02/26/22 10:57 rash Review of Systems Review of Systems Narrative: All 12 point systems reviewed with the patient and are negative except otherwise documented. Exam Vital Signs (past 8 hours): - 06/22/22 20:36 06/22/22 20:35 06/22/22 21:00 Temperature 98 F Pulse Rate 93 H 90 Pulse Rate [Orthostatic Lying] Pulse Rate [Orthostatic Sitting] Pulse Rate [Orthostatic Standing] Respiratory Rate 16 Blood Pressure 146/66 H 154/73 H Blood Pressure [Orthostatic Lying] Blood Pressure [Orthostatic Sitting] Blood Pressure [Orthostatic Standing] Pulse Oximetry 98 96 Oxygen Delivery Method Room Air 06/22/22 21:00 06/22/22 21:30 06/22/22 21:30 Temperature Pulse Rate 91 H 91 H Pulse Rate [Orthostatic Lying] Pulse Rate [Orthostatic Sitting] Pulse Rate [Orthostatic Standing] Respiratory Rate 18 Blood Pressure 162/76 H Blood Pressure [Orthostatic Lying] Blood Pressure [Orthostatic Sitting] Blood Pressure [Orthostatic Standing] Pulse Oximetry 97 96 Oxygen Delivery Method 06/22/22 22:08 06/22/22 22:00 06/22/22 22:00 Temperature Pulse Rate 93 H Pulse Rate [Orthostatic Lying] 91 H Pulse Rate [Orthostatic Sitting] 98 H Pulse Rate [Orthostatic Standing] 97 H Respiratory Rate 34 H Blood Pressure 162/107 H Blood Pressure [Orthostatic Lying] 168/104 H Blood Pressure [Orthostatic Sitting] 147/81 H Blood Pressure [Orthostatic Standing] 166/80 H Pulse Oximetry 96 Oxygen Delivery Method 06/22/22 22:03 06/22/22 22:03 06/22/22 22:04 Temperature Pulse Rate 97 H 96 H Pulse Rate [Orthostatic Lying] Pulse Rate [Orthostatic Sitting] Pulse Rate [Orthostatic Standing] Respiratory Rate Blood Pressure 147/81 H Blood Pressure [Orthostatic Lying] Blood Pressure [Orthostatic Sitting] Blood Pressure [Orthostatic Standing] Pulse Oximetry 98 Oxygen Delivery Method 06/22/22 22:04 06/22/22 22:30 06/22/22 22:30 Temperature Pulse Rate 92 H Pulse Rate [Orthostatic Lying] Pulse Rate [Orthostatic Sitting] Pulse Rate [Orthostatic Standing] Respiratory Rate 21 Blood Pressure 166/80 H 162/73 H Blood Pressure [Orthostatic Lying] Blood Pressure [Orthostatic Sitting] Blood Pressure [Orthostatic Standing] Pulse Oximetry 96 Oxygen Delivery Method 06/22/22 23:00 06/22/22 23:00 06/22/22 23:30 Temperature Pulse Rate 92 H Pulse Rate [Orthostatic Lying] Pulse Rate [Orthostatic Sitting] Pulse Rate [Orthostatic Standing] Respiratory Rate 17 Blood Pressure 156/76 H 156/73 H Blood Pressure [Orthostatic Lying] Blood Pressure [Orthostatic Sitting] Blood Pressure [Orthostatic Standing] Pulse Oximetry 93 Oxygen Delivery Method 06/22/22 23:30 06/23/22 00:00 06/23/22 00:00 Temperature Pulse Rate 91 H 90 Pulse Rate [Orthostatic Lying] Pulse Rate [Orthostatic Sitting] Pulse Rate [Orthostatic Standing] Respiratory Rate 18 19 Blood Pressure 155/74 H Blood Pressure [Orthostatic Lying] Blood Pressure [Orthostatic Sitting] Blood Pressure [Orthostatic Standing] Pulse Oximetry 93 94 Oxygen Delivery Method 06/23/22 00:30 06/23/22 00:30 06/23/22 01:00 Temperature Pulse Rate 90 Pulse Rate [Orthostatic Lying] Pulse Rate [Orthostatic Sitting] Pulse Rate [Orthostatic Standing] Respiratory Rate 17 Blood Pressure 156/76 H 160/70 H Blood Pressure [Orthostatic Lying] Blood Pressure [Orthostatic Sitting] Blood Pressure [Orthostatic Standing] Pulse Oximetry 94 Oxygen Delivery Method 06/23/22 01:00 06/23/22 01:30 06/23/22 01:30 Temperature Pulse Rate 90 91 H Pulse Rate [Orthostatic Lying] Pulse Rate [Orthostatic Sitting] Pulse Rate [Orthostatic Standing] Respiratory Rate 17 20 Blood Pressure 160/71 H Blood Pressure [Orthostatic Lying] Blood Pressure [Orthostatic Sitting] Blood Pressure [Orthostatic Standing] Pulse Oximetry 94 94 Oxygen Delivery Method 06/23/22 02:00 Temperature Pulse Rate 92 H Pulse Rate [Orthostatic Lying] Pulse Rate [Orthostatic Sitting] Pulse Rate [Orthostatic Standing] Respiratory Rate 24 Blood Pressure Blood Pressure [Orthostatic Lying] Blood Pressure [Orthostatic Sitting] Blood Pressure [Orthostatic Standing] Pulse Oximetry 94 Oxygen Delivery Method Oxygen Delivery Method Room Air Narrative Exam Narrative: General:? Patient is a pleasant morbidly obese female? in no distress at this time. HEENT:? Normocephalic, atraumatic, extraocular muscles intact, oral pharynx is clear and mucous membranes are dry.? Neck is supple and symmetric, trachea is midline, no adenopathy, no thyroid enlargement, nontender, no masses palpated.? Negative for JVD Chest:? Normal AP diameter and contour without kyphoscoliosis, no nasal flaring, retractions, or tachypneic labored Lungs:? Auscultation of all lung graff are clear without adventitious sounds, wheezes, rhonchi, or rales. Cardio:? regular rate and rhythm without murmur, rubs, or gallops, no carotid bruit, no cardiac pulsations present. Abdomen:? Soft mild tenderness to right lower quad. Left lower quad abd wall appears grossly protruding firm, nontender hernia, with a surgical scar just to the right of the umbilicus.? Bowel sounds are present in all 4 quadrants without guarding or rebound, no CVA tenderness. I had difficuly hearing BS in the upper Rt quad. Musculoskeletal:? Muscle strength and tone are equal, no deformity, crepitus, effusions, cyanosis, clubbing present.? intact radial and pedal pulses are normal. Skin:? Warm dry and intact without rashes, ulcerations or petechiae.? Neuro:? Alert and orientated x3, sensation to touch intact, no gross deficits noted of cranial nerves. Psych:? Patient has a well-kept appearance, appropriate affect, mental status attitude thought context and judgment are appropriate for age. Objective Labs Result Diagrams: 06/22/22 20:53 06/23/22 01:57 Labs: Laboratory Results - last 24 hr 06/22/22 06/22/22 06/22/22 20:42 20:53 20:53 WBC 7.3 RBC 3.75 L Hgb 11.7 L Hct 35.0 L MCV 93.3 MCH 31.1 MCHC 33.3 RDW 14.1 Plt Count 273 Neut % (Auto) 66.5 Lymph % (Auto) 19.3 L [place] % (Auto) 10.0 Eos % (Auto) 3.3 Baso % (Auto) 0.9 Neut # (Auto) 4900 Lymph # (Auto) 1400 [place] # (Auto) 700 Eos # (Auto) 200 Baso # (Auto) 100 Sodium 140 Potassium 4.7 Chloride 108 H Carbon Dioxide 22 BUN 32 H Creatinine 2.25 H Estimated GFR 23 L BUN/Creatinine Ratio 14.2 Glucose 102 Lactate Calcium 9.0 Magnesium 1.4 L Total Bilirubin 0.3 AST 22 ALT 16 Alkaline Phosphatase 71 Total Creatine Kinase 81 CK-MB (CK-2) TNP CK-MB (CK-2) Rel Index TNP Troponin I < 0.012 NT-Pro-B Natriuret Pep 374 H Total Protein 7.4 Albumin 3.7 Globulin 3.7 Albumin/Globulin Ratio 1.0 SARS-CoV-2 (PCR) Negative 06/22/22 06/23/22 20:53 01:57 WBC RBC Hgb Hct MCV MCH MCHC RDW Plt Count Neut % (Auto) Lymph % (Auto) [place] % (Auto) Eos % (Auto) Baso % (Auto) Neut # (Auto) Lymph # (Auto) [place] # (Auto) Eos # (Auto) Baso # (Auto) Sodium 141 Potassium 4.3 Chloride 112 H Carbon Dioxide 21 L BUN 30 H Creatinine 1.94 H Estimated GFR 27 L BUN/Creatinine Ratio 15.5 Glucose 92 Lactate 1.6 Calcium 8.2 L Magnesium Total Bilirubin AST ALT Alkaline Phosphatase Total Creatine Kinase CK-MB (CK-2) CK-MB (CK-2) Rel Index Troponin I NT-Pro-B Natriuret Pep Total Protein Albumin Globulin Albumin/Globulin Ratio SARS-CoV-2 (PCR) Assessment & Plan Assessment & Plan narrative: Ms. 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 Patient admitted for intractable nausea vomiting diarrhea resulting in SHARON. 1. Intractable nausea vomiting, diarrhea, abd pain (rt lower quad), acute, present on admission -Suspect this to be enteritis again. Consider starting Levoquin 500 QD x5days, but pt has no elevated white count or inflammatory markers at this time. -09/2021:HX of ileus versus enteritis verses possible developing small bowel obstruction. -Hx of small-bowel perforation. Multiple Hernia repairs, abd surgeries, and Large ventral hernia -Ordered abdominal CT imaging without contrast-based on results- will determine if consult for General surgery will need to be placed. -NPO-Holding PO meds at this time. -antiemetics-to control nausea and vomiting, anti-diarrhea medication (loperamide), Dilaudid for pain management -ordered UA, urine sodium, GI panel, urine creatinine, blood cultures, C diff, ova and parasite for stool, H pylori. -NS at 100cc/HR -per Dr. Russo general surgery consult note 10/27/2021:71 y.o woman numerous abdominal surgeries admitted for enteritis.? CT demonstrates mildly dialated loops of small bowel no transition point. Report reads enteritis vs possible developing ileus.? No evidence of SBO no surgical intervention indicated.? -If develops small bowel obstruction proceeds with small bowel follow through study -Given her extensive comorbidities morbid obesity, COPD, DM, CVA, numerous abdominal surgeries she is at high risk of morbidity and mortality with any operative intervention. -09/[address]:? diffuse small bowel dilation with wall enhancement possibly ileus versus enteritis versus possible developing small bowel obstruction. 2. SHARON, pre renal, secondary to volume depletion from vomiting and diarrhea, acute, with hypomagnesia, acute, present on admission -patient's renal function on 10/29/2021 was within normal limits -In Sarah: Chloride 108 CO2 22, BUN 32, creatinine 2.25, GFR 23 (2LBolus given)- On admit chloride 112, BUN 30, CO2 21, creatinine 1.9 for, GFR 27, Mag 1.4 -continue rehydration NS at 100 cc/HR -continue to monitor renal function -strict I&O, notify provider for urine output <50cc/hr -2 g Mag rider ordered 3. Anemia, acute, present on admission -patient's prior hematology labs were normal as 09/2021 -today RBC 3.75, HGB 11.7, HCT 35 -Urine to check for blood -hemoccult as needed -monitor for bleeding and trend H&H 4. Hx of CVA with history of multiple old CVA and residual right sided weakness, chronic, present on admission -patient noted to have residual right sided weakness and stuttering -Hold PLAVIX for possible Surg intervention/NPO 3. Essential hypertension, acute on chronic, present on admission -Hold PO meds while NPO -continue prazosin, verapamil -hydralazine 10 mg q.6 hours as needed for SBP>160/DBP>100- While NPO -patient monitored on telemetry ? 4. . Migraine associated with CVA in past, chronic, present on admission -continue Depakote, imitrex -Hold PO meds while NPO 5. COPD, chronic, present on admission -continue Spiriva, Ventolin HFA -no exacerbation currently 6. Depression, chronic, present on admission -continue bupropion -Hold PO meds while NPO 7. Wzh-shcqzfu-soosmuhbo type 2 diabetes, chronic, present on admission -A1c ordered -Hold metformin -patient admitted under diabetic protocol, blood sugar checks q.6 hours while NPO, then change to ACHS once taking PO -Hold PO meds while NPO 8. ABIOLA on CPAP, chronic, present on admission -respiratory consult ordered for CPAP 9. Morbid obesity, as evidence by BMI of 45, acute on chronic, present on admission -dietary consult on last 08/2021 -BMI 46.6 Last Hospitalization -The patient is at much higher risk for medical and surgical complications because of her morbid obesity increasing the difficulty and complexity of medical and surgical interventions and increases the chances of poor outcomes such as morbidity and mortality, as well as complications of poor wound healing, post op complications and infections. 10. Depression, chronic, present on admission -continue sertraline -Hold PO meds while NPO ? Code Staus: DNR Surrogate decision maker: Gabbie Roberson, daughter SHERRIE PCR: Negative DVT/VTE prophylaxis:?Hold med due to poss surg, SCDs only Disposition: Estimated length of stay:? Patient admitted for observation expected length of stay less than 2 midnights. I have utilized all available immediate resources to obtain, update, or review the patient's current medications. I confirmed that the patient's advanced care plan is present, Code status is documented and/or surrogate decision maker is listed in the patient's medical rick Time Spent With Patient Critical Care time: I spent a total of [] minutes of critical care time on this patient's care today; this time is exclusive of procedural time.
[2022-06-23] MEDS: HYDROMORPHONE 0.5 MG INJ IV ×4 (04:59→21:41)
[2022-06-23] MEDS: SODIUM CHLORIDE 0.9% 1,000 ML 100 ML IV ×2 (04:59→18:30)
[2022-06-23] MEDS: MAGNESIUM SULFATE 2 GM/50 ML PIGGYBACK IV (05:01)
[2022-06-23 06:15] LABS: Add Manual Diff / Slide Review NO; Basophils Absolute Auto 100 /uL (0-100); Basophils Percent Auto 0.8 % (0-2); Eosinophils Absolute Auto 300 /uL (0-450); Eosinophils Percent Auto 4.2 % (2-4); Hematocrit 34.1 % (36-46); Hemoglobin 11.4 g/dL (12.0-16.0); Lymphocytes Absolute Auto 1300 /uL (1100-4500); Lymphocytes Percent Auto 22.2 % (25-40); Mean Corpuscular HGB Conc 33.5 % (30-36); Mean Corpuscular Hemoglobin 31.3 PG (26-34); Mean Corpuscular Volume 93.5 fL (80-100); Monocytes Absolute Auto 600 /uL (0-900); Monocytes Percent Auto 9.7 % (3-14); Neutrophils Absolute Auto 3800 /uL (1500-7000); Neutrophils Percent Auto 63.1 % (50-75); Platelet Count 251 X10^3/uL (150-400); Red Blood Cell Count 3.65 X10^6/uL (4.0-5.2); Red Cell Distribution Width 14.3 % (11.6-14.8); White Blood Cell Count 5.9 X10^3/uL (4.5-11.0)
[2022-06-23 06:37] LABS: Procalcitonin 0.07 ng/mL (<0.5)
[2022-06-23 07:14] LABS: Alanine Aminotransferase 14 IU/L (<35); Albumin 3.3 g/dL (3.5-5.0); Albumin Globulin Ratio 0.9 (1.0-2.8); Alkaline Phosphatase 72 U/L (38-126); Aspartate Aminotransferase 19 IU/L (14-36); BUN Creatinine Ratio 14.9 (6-22); Bilirubin Total 0.2 mg/dL (0.2-1.3); Blood Urea Nitrogen 29 mg/dL (7-17); Calcium 8.2 mg/dL (8.4-10.2); Carbon Dioxide 20 mmol/L (22-32); Chloride 111 mmol/L (98-107); Estimated Glomerular Filt Rate 27 mL/min (>60); Globulin 3.5 g/dL (1.7-4.1); Glucose 95 mg/dL (80-110); HEMOLYSIS < 15 (0-50); Magnesium 1.4 mg/dL (1.6-2.3); Potassium 4.3 mmol/L (3.4-5.1); Sodium 142 mmol/L (137-145); Total Protein 6.8 g/dL (6.3-8.2)
[2022-06-23] MEDS: BUTALB/APAP/CAFFEINE 50/325/40 TABLET 1 EACH PO ×2 (08:07→16:04)
[2022-06-23 08:09] LABS: Creatinine Urine Random 199.1 mg/dL; Sodium Urine Random 81 mmol/L (30-90)
--- NOTE | 2022-06-23 08:55 | CM.DANOTE ---
DCP Assessment: Payor confirmed: Medicare & Medicaid PCP confirmed: Andrea Coyne MD Pt is a 72 y.o. F who presented to the ER with complaints of N/V/D for the past few days and a migraine that came on strong. Pt last admission was in October of this year. Pt was admitted for further management of her symptoms. DCP met with pt this morning to discuss discharge needs. Pt sitting up in bed. DCP introduced herself and role. Pt states she lives alone in an apartment in [place] on the bottom level. Pt states that she has ERIKA caregiver that comes 4x a week. ERIKA costume shop manager name is, Ana. Pt used [facility] in the past. Pt states that her daughter would likely transport her home following discharge. Pt states that she uses a FWW at baseline. Currently no discharge needs. DCP will continue to follow pt case and coordinate with team. White board updated and instructed to call if needed. P: Unclear discharge needs at this time. Anticipate discharge home via daughter POV when medically stable. Araceli Arias RN/KELVIN Discharge Planning/Care Management CM Discharge Assessment Start: 06/23/22 08:54 Freq: Status: Active Protocol: Document 06/23/22 08:54 WENDY (Rec: 06/23/22 08:55 [id number]) Discharge Planning Assessment Assigned [facility] Araceli Arias RN/KELVIN Advance Directives? Yes Advance Directives on File Yes History Provided By Patient,Medical Record Has Patient been admitted in last 30 No days? Prior Living Arrangements Apartment/Condo Household Members none Type of transporation used prior to Relies on Others admit Independent with ADL's Yes Is patient alert and oriented? Yes Caregiver for Another No DME Already Rented / Owned FWW / Walker Discharge Plan Home Transportation Arrangement Daughter POV Referrals Initiated None needed Additional Comment At this time. Awaiting further plan from MD. If patient plan is home with home health will need: : Has signed face to face form been completed? If patient plan is SNF: Has PASSR been . completed? Whiteboard Updated in Patient Room with Yes name and ext. # of [facility] Associate Comment Instructed to call if needed. Review Status In Process Please Provide Date Initial DC 06/23/22 Assessment Was Performed Next Review Type Continued Stay Review
[2022-06-23] MEDS: ACETAMINOPHEN 325 MG TABLET 975 MG PO (10:38)
--- NOTE | 2022-06-23 11:13 | DIET.CONS ---
Dietary Consultation Note Admission Date: 06/23/2022 03:51 Assessment: 72y F admitted for weakness/dizziness/diarrhea and migraine found to have SHARON referred to nutrition for morbid obesity. Pt states she has had ongoing diarrhea since October 2021, will last 3-4d then resolve and start back up again. Pt scheduled for upper and lower endoscopy on Jul 05 with [facility]. Usual Day: B: plain oatmeal with 1 egg L: Meals on Wheels D: fish and salads [place]: water, crystal light Pt may not be revealing entirety of PO intake to this RD. Pt states she eats sugar free Worthers candies when her mouth is dry. This product contains sugar alcohol when consumed in excess does cause abd bloating and diarrhea. Pt states she does not use any electrolyte replacement drinks when having diarrhea leading to weakness. Ht: 162.56 cm Wt: 124 kg BMI: 46.9 Last BM: 06/22/22 (06/23/22 03:57) MNA: 12 Hilton Score: 19 Diet: 06/23/22 03:42 NPO Diet Diet Modifications: and sips with meds May Advance Diet as Tolerated: No NPO Type: NPO except for Ice Chips Labs: RBC 3.65 X10^6/uL (4.0-5.2) L 06/23/22 05:28 Hgb 11.4 g/dL (12.0-16.0) L 06/23/22 05:28 Hct 34.1 % (36-46) L 06/23/22 05:28 Creatinine 1.94 mg/dL (0.52-1.04) H 06/23/22 05:28 Hemoglobin A1c 6.0 % (4.0-6.0) 06/23/22 05:28 Lactate 1.6 mmol/L (0.7-2.1) 06/22/22 20:53 NT-Pro-B Natriuret Pep 374 pg/mL (<125) H 06/22/22 20:53 Nutrition Diagnosis: 1. morbid obesity r/t undesirable food choices and physical inactivity aeb pt with BMI 46.9, pt with chronic intermittent diarrhea since Oct 2021 leading to poor food choices, low energy. Interventions: 1. Educated pt on supportive nutrition during active diarrhea including electrolyte replacement beverages that are low in added sugar and avoiding SF candies. Electronically Signed by: Kenia Salamanca 06/23/22 11:13 Clinical Dietitian [address] [id number]
[2022-06-23] MEDS: HYDRALAZINE 20 MG/ML VIAL 10 MG IV (15:34)
[2022-06-23] MEDS: ONDANSETRON 4 MG/2 ML INJ IV (18:03)
[2022-06-24] VITALS (15 sets, daily range): BP systolic 151–192; BP diastolic 79–90; PULSE 95–116; RESP 16–20; TEMP 36.1–37.2; O2SAT 91–98
--- NOTE | 2022-06-24 | DI.CT.S_ITS ---
PROCEDURE: CT ANGIO HEAD AND NECK INDICATIONS: STROKE TECHNIQUE: After the administration of intravenous contrast, 1 mm thick sections acquired from the aortic arch through the [place] of [place]. Post-contrast 4.5 mm thick sections then re-acquired from the foramen magnum to the vertex. 3-dimensional nhqfeec-hzbivxayt-vutwaqnqxm (MIP) and/or volume rendering reformats were acquired of the central intracranial vasculature and neck separately. For radiation dose reduction, the following was used: automated exposure control, adjustment of mA and/or kV according to patient size. COMPARISON: [facility], MR, STROKE PROTOCOL, 02/22/2011, 8:30. [facility], CT, CT ANGIO HEAD AND NECK, 04/19/2018, 13:09. [facility], MR, MR STROKE, 01/03/2019, 20:46. [facility], CT, CT STROKE, 06/24/2022, 7:55. MR, MR HEAD/BRAIN WO CON, 09/24/2021, 18:55. CT, CT ANGIO HEAD AND NECK, 09/24/2021, 14:29. Outside Film, CT, CT ANGIO HEAD, 12/30/2020, 18:58. FINDINGS: Image quality: Excellent. BRAIN: The ventricular system and cortical sulci demonstrate atrophy, consistent for the patient's stated age. There are areas of hypodensity within the periventricular and subcortical white matter. There is no acute intra-or extra axial fluid collection. No acute hemorrhage, mass lesion or midline shift. Encephalomalacia and gliosis within the right superior frontal gyrus as well as the left frontal operculum and right occipital lingula cortex are unchanged. Globes are symmetrical. Sinuses are aerated. Osseous structures are intact. HEAD CT ANGIOGRAPHY: Anterior circulation: Intracranial internal carotid arteries are normal in size and flow. 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 Pole the middle cerebral arteries are widely patent. Anterior communicating artery is present. No aneurysms or hemodynamically significant stenosis. As identified on multiple prior exams, there is a cluster of vessels within the pre medullary cysts dura magna at the cervical medullary junction. Vessels demonstrate areas of narrowing as well as enlargement possibly related to stenosis with poststenotic dilatation. Overall this appears suggestive of AV malformation or blister vessels possibly secondary to vasculitis. Posterior circulation: Visualized portions of the vertebral arteries demonstrate normal caliber, and join to form a normal appearing basilar artery. Flow within the posterior cerebral arteries is normal and symmetric. No aneurysms are seen. There is a slight left vertebral artery dominance. There is hypoplasia left P1 segment of the posterior cerebral artery, unchanged. There is persistence of circulation of the P2 segment. 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 NECK CT ANGIOGRAPHY: The origins of the left and right common, internal and external carotid arteries demonstrate no areas of hemodynamically significant stenosis, vascular occlusion or aneurysmal dilation. Origins of the left and right vertebral arteries demonstrate no areas of hemodynamically significant stenosis, vascular occlusion or aneurysmal dilation. 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 As previously identified, it is causing displacement and compression of the esophagus. Limited, visualized portions of the subclavian vasculature are unremarkable. IMPRESSION: 1. No acute intracranial process. Areas of prior infarction are noted above. 2. Moderate atrophy and chronic microvascular ischemic changes. 3. No areas of hemodynamically significant stenosis, vascular occlusion or aneurysmal dilation within the anterior circulation. 4. No areas of hemodynamically significant stenosis, vascular occlusion or aneurysmal dilation within the posterior circulation. 5. No areas of hemodynamically significant stenosis, vascular occlusion or aneurysmal dilation within the neck vasculature. Any quantitative measurements of stenosis were performed using NASCET criteria. Dictated by: Justine Dickens M.D. on 06/24/2022 at 8:54 Approved by: Justine Dickens M.D. on 06/24/2022 at 9:18
[2022-06-24] MEDS: HYDROMORPHONE 0.5 MG INJ IV (04:13)
[2022-06-24] MEDS: HYDRALAZINE 20 MG/ML VIAL 10 MG IV (06:41)
[2022-06-24 07:06] LABS: Add Manual Diff / Slide Review NO; Basophils Absolute Auto 0 /uL (0-100); Basophils Percent Auto 0.5 % (0-2); Eosinophils Absolute Auto 200 /uL (0-450); Eosinophils Percent Auto 3.1 % (2-4); Hematocrit 37.5 % (36-46); Hemoglobin 12.4 g/dL (12.0-16.0); Lymphocytes Absolute Auto 1300 /uL (1100-4500); Lymphocytes Percent Auto 17.7 % (25-40); Mean Corpuscular HGB Conc 33.1 % (30-36); Mean Corpuscular Hemoglobin 31.2 PG (26-34); Mean Corpuscular Volume 94.4 fL (80-100); Monocytes Absolute Auto 500 /uL (0-900); Monocytes Percent Auto 7.1 % (3-14); Neutrophils Absolute Auto 5300 /uL (1500-7000); Neutrophils Percent Auto 71.6 % (50-75); Platelet Count 275 X10^3/uL (150-400); Red Blood Cell Count 3.97 X10^6/uL (4.0-5.2); Red Cell Distribution Width 14.3 % (11.6-14.8); White Blood Cell Count 7.4 X10^3/uL (4.5-11.0)
[2022-06-24 07:14] LABS: Alanine Aminotransferase 15 IU/L (<35); Albumin 3.6 g/dL (3.5-5.0); Albumin Globulin Ratio 0.9 (1.0-2.8); Alkaline Phosphatase 82 U/L (38-126); Aspartate Aminotransferase 20 IU/L (14-36); BUN Creatinine Ratio 20.2 (6-22); Bilirubin Total 0.2 mg/dL (0.2-1.3); Blood Urea Nitrogen 24 mg/dL (7-17); Calcium 8.5 mg/dL (8.4-10.2); Carbon Dioxide 23 mmol/L (22-32); Chloride 112 mmol/L (98-107); Estimated Glomerular Filt Rate 49 mL/min (>60); Globulin 3.9 g/dL (1.7-4.1); Glucose 113 mg/dL (80-110); HEMOLYSIS < 15 (0-50); Magnesium 1.8 mg/dL (1.6-2.3); Potassium 4.9 mmol/L (3.4-5.1); Sodium 142 mmol/L (137-145); Total Protein 7.5 g/dL (6.3-8.2)
--- NOTE | 2022-06-24 07:43 | DI.CT.S_ITS ---
PROCEDURE: CT STROKE INDICATIONS: possible STROKE TECHNIQUE: Noncontrast 4.5 mm thick angled axial sections acquired from the foramen magnum to the vertex, with coronal reformats. For radiation dose reduction, the following was used: automated exposure control, adjustment of mA and/or kV according to patient size. COMPARISON: [facility], CT, CT HEAD/BRAIN WO CON, 10/26/2021, 15:47. FINDINGS: Image quality: Excellent. CSF spaces: Basal cisterns are patent. No extra-axial fluid collections. The ventricles are symmetric in size and shape. Brain: No acute intracranial hemorrhage or mass effect. Chronic encephalomalacia is seen in the posterior frontal lobes bilaterally and in the right occipital lobe, which does not appear significantly changed when compared to the CT from 10/26/2021. There is cerebral volume loss for age, with resultant ventricular and sulcal prominence. There are periventricular and deep white matter chronic small vessel ischemic changes. There is intracranial internal carotid artery atherosclerosis. Skull and face: Calvarium and visualized facial bones appear intact, without suspicious lesions. Sinuses: Visualized sinuses and mastoids are clear. IMPRESSION: 1. No acute intracranial abnormality. 2. Stable remote prior infarcts with chronic encephalomalacia. Findings were discussed with the referring physician, Dr. Price, by telephone on 06/24/2022 at 8:10 AM. This study fulfills neurological imaging criteria for inclusion or exclusion of acute stroke therapies based on available published neurological guidelines. Dictated by: Larry Quiroga M.D. on 06/24/2022 at 8:04 Approved by: Larry Quiroga M.D. on 06/24/2022 at 8:10
[2022-06-24] MEDS: SODIUM CHLORIDE 0.9% 1,000 ML 100 ML IV ×3 (07:50→18:43)
--- NOTE | 2022-06-24 08:03 | PC.NURSE ---
At 06:35 noted patient to be hypertensive, tachycardic, and oxygen saturation was 80% with CPAP on. Respiratory therapy called to assess patient. CPAP removed and patient placed on 2L oxygen satting at 92%. Notified Dr. Daniel to assess patient. Patient last seen at her baseline when assisted to the bathroom at 05:45, asked about her headache and she stated it feels pretty good. NIH 31. BS 108. Hydralazine held per Dr. Daniel.
[2022-06-24 08:24] LABS: INR 1.1 (0.9-1.3); Prothrombin Time 12.1 SECONDS (10.1-12.7)
[2022-06-24 08:24] LABS: pH ABG 7.21 (7.35-7.45)
[2022-06-24 08:25] LABS: HCO3 ABG 22 mmol/L (22-26); PCO2 ABG 55.3 mmHg (35-45); PO2 ABG 68 mmHg (80-100); TCO2 ABG 24 mmol/L (21-31)
[2022-06-24 08:26] LABS: PTT Partial Thromboplastin Tim 38 SECONDS (26-36)
[2022-06-24 08:26] LABS: Fractionated Inspired Oxygen 0.28; Oxygen Saturation ABG 89 % (95-100)
[2022-06-24] MEDS: ONDANSETRON 4 MG/2 ML INJ IV ×2 (09:24→17:12)
--- NOTE | 2022-06-24 10:53 | DI.MRI.S_ITS ---
PROCEDURE: MR HEAD/BRAIN WO CON INDICATIONS: possible CVA TECHNIQUE: Non-contrast axial T1 spin echo, axial T2 fast spin echo, sagittal and axial FLAIR, coronal T2 fast spin echo, axial gradient echo, axial diffusion and ADC through the brain. COMPARISON: [facility], CT, CT ANGIO HEAD AND NECK, 09/24/2021, 14:29. [facility], MR, MR HEAD/BRAIN WO CON, 09/24/2021, 18:55. FINDINGS: Image quality: Degraded by motion artifact. CSF spaces: Ventricles appear symmetric in size and shape. Basal cisterns are patent. No extra-axial fluid collections. Brain: No intracranial bleeds or mass effects. There is cerebral volume loss for age. There are periventricular and deep white matter chronic small vessel ischemic changes. Brainstem appears normal. Diffusion-weighted images show no acute ischemic insults. Chronic bilateral frontal lobe infarcts are present, as before. Small chronic right occipital lobe infarct, as before. Flow voids within the pre medullary cistern are present, as before. intravascular flow voids are present. Skull and face: Calvarial bone marrow is normal in signal. Orbits are normal. Sinuses: Sinuses and mastoids are clear. IMPRESSION: 1. No change in small bilateral cerebral infarcts. 2. No acute process. No recent infarct. 3. 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 Dictated by: Bhanu Preciado M.D. on 06/24/2022 at 15:25 Approved by: Bhanu Preciado M.D. on 06/24/2022 at 15:28
[2022-06-24 10:58] LABS: Fractionated Inspired Oxygen 28; HCO3 ABG 22 mmol/L (22-26); Oxygen Saturation ABG 88 % (95-100); PCO2 ABG 52.4 mmHg (35-45); PO2 ABG 66 mmHg (80-100); TCO2 ABG 23 mmol/L (21-31); pH ABG 7.23 (7.35-7.45)
[2022-06-24 11:44] LABS: Lactate (Lactic Acid) 0.5 mmol/L (0.7-2.1)
--- NOTE | 2022-06-24 16:49 | P.PN_ITS ---
Subjective Subjective Date Patient Seen: 06/24/22 Interval history: This morning a rapid response was called for an abrupt change in her altered mental status. Given her history of COPD this was checked which did show a mild acidosis and a pCO2 in the 50s but this did not seemingly explain her degree of neurological symptoms. A code stroke was called, and she was evaluated by the Telestroke Service. She had a CT and a CT angiogram which showed no acute abnormalities other than her prior known AV malformations. Given non focal findings on exam as well as the patient's AV malformations and hypertension, the Telestroke Service did not recommend tPA. She had an MRI this afternoon which did not show any of acute ischemia. The patient is more alert and able to talk now, and she does complain of headache, which she has had really since yesterday. The source of her neurological changes not entirely clear at this time. Exam Vital Signs (past 8 hours): - 06/24/22 09:20 06/24/22 12:00 06/24/22 13:00 Temperature 96.9 F L 98.4 F Pulse Rate 111 H 106 H Respiratory Rate 18 Blood Pressure 164/88 H 151/84 H Pulse Oximetry 91 96 98 Oxygen Delivery Method Nasal Cannula Oxygen Flow Rate 2 2 2 06/24/22 16:00 Temperature Pulse Rate Respiratory Rate Blood Pressure Pulse Oximetry 95 Oxygen Delivery Method Nasal Cannula Oxygen Flow Rate 2 Oxygen Delivery Method Nasal Cannula Oxygen Flow Rate 2 Narrative Exam Narrative: General:? Patient is a pleasant morbidly obese female, eyes open, fixed to the R, with some tracking. HEENT:? Normocephalic, atraumatic, oral pharynx is clear and mucous membranes are moist.? Neck is supple and symmetric, trachea is midline, no adenopathy Chest:? Normal AP diameter and contour without kyphoscoliosis, no nasal flaring, retractions, or tachypneic labored Lungs:? Auscultation of all lung graff are clear without adventitious sounds, wheezes, rhonchi, or rales. Cardio:? tachycardic rate and regular rhythm without murmur, rubs, or gallops, no carotid bruit, no cardiac pulsations present. Abdomen:? Soft and nondistended. Musculoskeletal:?no deformity or joint effusions Ext: Trace bilateral LE edema, no clubbing. Skin:? Warm dry and intact without rashes, ulcerations or petechiae.? Neuro:? Fixed R gaze, was initially unable to lift any extremity, which slowly improved and she was able to move bilateral upper arms on command. She had a facial paralysis seemingly bilaterally. She did not react to aggressive pinch in all extremities, she was not able to respond much to aggressive sternal rub. Psych:? unable to assess. Objective Labs Result Diagrams: 06/24/22 06:20 06/24/22 06:20 Labs: Laboratory Results - last 24 hr 06/24/22 06/24/22 06/24/22 06:20 06:20 07:33 WBC 7.4 RBC 3.97 L Hgb 12.4 Hct 37.5 MCV 94.4 MCH 31.2 MCHC 33.1 RDW 14.3 Plt Count 275 Neut % (Auto) 71.6 Lymph % (Auto) 17.7 L Braxton % (Auto) 7.1 Eos % (Auto) 3.1 Baso % (Auto) 0.5 Neut # (Auto) 5300 Lymph # (Auto) 1300 Braxton # (Auto) 500 Eos # (Auto) 200 Baso # (Auto) 0 PT INR APTT ABG pH 7.21 L* ABG pCO2 55.3 H ABG pO2 68 L ABG HCO3 22 ABG Total CO2 24 ABG O2 Saturation 89 L ABG Base Excess -6.0 L FiO2 0.28 Sodium 142 Potassium 4.9 Chloride 112 H Carbon Dioxide 23 BUN 24 H Creatinine 1.19 H Estimated GFR 49 L BUN/Creatinine Ratio 20.2 Glucose 113 H Lactate Calcium 8.5 Magnesium 1.8 Total Bilirubin 0.2 AST 20 ALT 15 Alkaline Phosphatase 82 Total Protein 7.5 Albumin 3.6 Globulin 3.9 Albumin/Globulin Ratio 0.9 L 06/24/22 06/24/22 06/24/22 08:05 10:46 11:10 WBC RBC Hgb Hct MCV MCH MCHC RDW Plt Count Neut % (Auto) Lymph % (Auto) Braxton % (Auto) Eos % (Auto) Baso % (Auto) Neut # (Auto) Lymph # (Auto) Braxton # (Auto) Eos # (Auto) Baso # (Auto) PT 12.1 INR 1.1 APTT 38 H ABG pH 7.23 L* ABG pCO2 52.4 H ABG pO2 66 L ABG HCO3 22 ABG Total CO2 23 ABG O2 Saturation 88 L ABG Base Excess -6.0 L FiO2 28 Sodium Potassium Chloride Carbon Dioxide BUN Creatinine Estimated GFR BUN/Creatinine Ratio Glucose Lactate 0.5 L Calcium Magnesium Total Bilirubin AST ALT Alkaline Phosphatase Total Protein Albumin Globulin Albumin/Globulin Ratio [facility] Medical History Acute kidney injury (~12/2018) Adrenal mass Cardiomegaly Depression with anxiety Easy bruisability Enteritis History of concussion History of recurrent TIAs History of stroke Hyperlipidemia associated with type 2 diabetes mellitus Hypothyroid Migraine Morbid obesity with BMI of 45.0-49.9, adult Neuropathy ABIOLA on CPAP Osteopenia Polyneuropathy Radiculopathy Type 2 diabetes mellitus Vitamin D deficiency Surgical History History of 3 sections History of lumbar spinal fusion (06/27/17) History of lumbar spinal fusion (11/26/19) History of ventral hernia repair Hx of umbilical hernia repair S/P cholecystectomy S/P trigger finger release Family History Mother Heart disease Father Heart disease Grandfather Diabetes mellitus Other Family history non-contributory Social History marital status: unknown household members: none Smoking Status: Never smoker alcohol intake: never substance use type: does not use Assessment & Plan Assessment & Plan narrative: Ms. 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 Patient admitted for intractable nausea vomiting diarrhea resulting in SHARON, however on HD#1 developed stroke like symptoms of unclear etiology. 1. Neurological change - patient developed temporary paralysis on HD#1. Code stroke was called. tPA not given as patient was hypertensive, also no focal findings could be seen and patient has some chronic AV malformations putting her at some risk for intracranial bleeding per stroke service. - she has a history of complex migraines, complains still of headache. - her home verapamil was held. Will try to resume home medications if she is able to swallow. - will not give triptans as there is some evidence in severe attacks of complex migraine this can cause ischemia. - she is mildly acidotic, possibly due to hypercapnea, but only PCO2 of 50 not seemingly correlated with her degree of change. - MRI was negative for acute infarct. - At this time, possibilities include metabolic disorder, complex migraine, hypercapnea / acidosis, amongst other processes, consider seizure though seems less likely. All of these seem to be improving over the course of the day as well as the patient's symptoms. - start PT/OT with improvement, speech therapy consult as well. - continue telemetry. - hold pain medications. 2. Intractable nausea vomiting, diarrhea, abd pain (rt lower quad), acute, present on admission - this is largely improved. Per nutrition she has been taking a lot of sugar free oral candies which can cause diarrhea, this may explain some of her symptoms given negative CT findings this admission. -per Dr. Russo general surgery consult note 10/27/2021:71 y.o woman numerous abdominal surgeries admitted for enteritis.? CT demonstrates mildly dialated loo ps of small bowel no transition point. Report reads enteritis vs possible developing ileus.? No evidence of SBO no surgical intervention indicated.? -Given her extensive comorbidities morbid obesity, COPD, DM, CVA, numerous abdominal surgeries she is at high risk of morbidity and mortality with any operative intervention. 3. SHARON, pre renal, secondary to volume depletion from vomiting and diarrhea, acute, with hypomagnesia, acute, present on admission -patient's renal function on 10/29/2021 was within normal limits, Cr >2 on admit now improved to 1.19. -continue rehydration NS at 100 cc/HR -continue to monitor renal function -strict I&O, notify provider for urine output <50cc/hr -2 g Mag rider ordered 4. Anemia, acute, present on admission -patient's prior hematology labs were normal as 09/2021 -monitor for bleeding and trend H&H 5. Hx of CVA with history of multiple old CVA and residual right sided weakness, chronic, present on admission -patient noted to have residual right sided weakness and stuttering at baseline. see above regarding acute changes. 3. Essential hypertension, acute on chronic, present on admission -continue prazosin, verapamil when able. ? 4. . Migraine associated with CVA in past, chronic, present on admission -continue Depakote, imitrex -Hold PO meds while NPO 5. COPD, chronic, present on admission -continue Spiriva, Ventolin HFA -no exacerbation currently 6. Depression, chronic, present on admission -continue bupropion -Hold PO meds while NPO 7. Gyy-vclwbvi-oabqhvzlp type 2 diabetes, chronic, present on admission -Hold metformin -patient admitted under diabetic protocol, blood sugar checks q.6 hours while NPO, then change to ACHS once taking PO -Hold PO meds while NPO 8. ABIOLA on CPAP, chronic, present on admission -respiratory consult ordered for CPAP 9. Morbid obesity, as evidence by BMI of 45, acute on chronic, present on admission -dietary consult on last 08/2021 -BMI 46.6 Last Hospitalization -The patient is at much higher risk for medical and surgical complications because of her morbid obesity increasing the difficulty and complexity of medical and surgical interventions and increases the chances of poor outcomes such as morbidity and mortality, as well as complications of poor wound healing, post op complications and infections. 10. Depression, chronic, present on admission -continue sertraline -Hold PO meds while NPO 11. Respiratory acidosis - continue CPAP, hold opiates for now. Suspect this in the setting of apparent transient paralysis today. ? Code Staus: DNR Surrogate decision maker: Gabbie Roberson, daughter SHERRIE PCR: Negative DVT/VTE prophylaxis:?Hold med due to poss surg, SCDs only Disposition: start PT OT, unclear dispo at this time after today's events discussed above. I have utilized all available immediate resources to obtain, update, or review the patient's current medications. I confirmed that the patient's advanced care plan is present, Code status is documented and/or surrogate decision maker is listed in the patient's medical record Time Spent With Patient Critical Care time: I spent a total of [] minutes of critical care time on this patient's care today; this time is exclusive of procedural time. Quality VTE Deep Vein Thrombosis/Pulmonary Embolism Present on Admission: No
--- NOTE | 2022-06-24 19:21 | PC.NURSE ---
At shift change this am pt was mute, unable to communicate but could hold bilat arms up for a count of 10. NIH 31, code stroke called. During the day, pt slowly began to improve. By this evening she is A&Ox4, able to make her needs known, can move all extremities and CMS is intact. 2 episodes of vomiting/spitting up thick sputum, but nausea is improved this evening. Pt passed bed side nursing swallow eval with no throat clearing or gurgly voice. aware.
[2022-06-24] MEDS: VERAPAMIL 80 MG TABLET PO (21:41)
[2022-06-25] VITALS (22 sets, daily range): BP systolic 96–187; BP diastolic 35–92; PULSE 91–112; RESP 16–22; TEMP 36.3–36.4; O2SAT 91–99
[2022-06-25] MEDS: SODIUM CHLORIDE 0.9% 1,000 ML 100 ML IV (05:00)
[2022-06-25 07:15] LABS: Add Manual Diff / Slide Review NO; Basophils Absolute Auto 0 /uL (0-100); Basophils Percent Auto 0.8 % (0-2); Eosinophils Absolute Auto 200 /uL (0-450); Eosinophils Percent Auto 2.7 % (2-4); Hematocrit 34.1 % (36-46); Hemoglobin 11.4 g/dL (12.0-16.0); Lymphocytes Absolute Auto 1100 /uL (1100-4500); Lymphocytes Percent Auto 18.5 % (25-40); Mean Corpuscular HGB Conc 33.4 % (30-36); Mean Corpuscular Hemoglobin 31.2 PG (26-34); Mean Corpuscular Volume 93.4 fL (80-100); Monocytes Absolute Auto 400 /uL (0-900); Monocytes Percent Auto 7.7 % (3-14); Neutrophils Absolute Auto 4000 /uL (1500-7000); Neutrophils Percent Auto 70.3 % (50-75); Platelet Count 239 X10^3/uL (150-400); Red Blood Cell Count 3.65 X10^6/uL (4.0-5.2); Red Cell Distribution Width 14.2 % (11.6-14.8); White Blood Cell Count 5.8 X10^3/uL (4.5-11.0)
[2022-06-25 07:24] LABS: Alanine Aminotransferase 14 IU/L (<35); Albumin Globulin Ratio 0.8 (1.0-2.8); Alkaline Phosphatase 72 U/L (38-126); Aspartate Aminotransferase 19 IU/L (14-36); BUN Creatinine Ratio 17.4 (6-22); Bilirubin Total 0.3 mg/dL (0.2-1.3); Blood Urea Nitrogen 16 mg/dL (7-17); Calcium 8.8 mg/dL (8.4-10.2); Carbon Dioxide 23 mmol/L (22-32); Chloride 112 mmol/L (98-107); Estimated Glomerular Filt Rate > 60 mL/min (>60); Globulin 3.6 g/dL (1.7-4.1); Glucose 86 mg/dL (80-110); HEMOLYSIS < 15 (0-50); Magnesium 1.4 mg/dL (1.6-2.3); Potassium 4.7 mmol/L (3.4-5.1); Sodium 140 mmol/L (137-145); Total Protein 6.6 g/dL (6.3-8.2)
[2022-06-25] MEDS: SERTRALINE 50 MG TABLET 100 MG PO (08:24)
[2022-06-25] MEDS: MAGNESIUM SULFATE 2 GM/50 ML PIGGYBACK IV (08:24)
[2022-06-25] MEDS: CLOPIDOGREL 75 MG TABLET PO (08:24)
[2022-06-25] MEDS: LOSARTAN 50 MG TABLET PO (08:25)
[2022-06-25] MEDS: VERAPAMIL 80 MG TABLET PO ×3 (08:30→20:11)
[2022-06-25] MEDS: ACETAMINOPHEN 325 MG TABLET 975 MG PO (09:00)
--- NOTE | 2022-06-25 09:05 | PT.IIE ---
Current Diagnoses Noninfective gastroenteritis and colitis, unspecified (06/23/22) Surgical History (Last Reviewed 06/23/22 @ 04:43 by EMANUEL Sears) History of 3 sections History of lumbar spinal fusion (06/27/17) History of lumbar spinal fusion (11/26/19) History of ventral hernia repair Hx of umbilical hernia repair S/P cholecystectomy S/P trigger finger release Medical History (Last Reviewed 06/23/22 @ 04:43 by EMANUEL Sears) Acute kidney injury (~12/2018) Adrenal mass Cardiomegaly Depression with anxiety Easy bruisability Enteritis History of concussion History of recurrent TIAs History of stroke Hyperlipidemia associated with type 2 diabetes mellitus Hypothyroid Migraine Morbid obesity with BMI of 45.0-49.9, adult Neuropathy ABIOLA on CPAP Osteopenia Polyneuropathy Radiculopathy Type 2 diabetes mellitus Vitamin D deficiency Physical Therapy Inpatient Evaluation/Re-Eval M1 PT/OT-IP Prior Functional Status Start: 06/25/22 12:03 Freq: NEEDED Status: Active Protocol: Document 06/25/22 09:05 AB (Rec: 06/25/22 12:17 AB [email or web address]) Medical Review Prior Functional Status Medical History Reviewed Yes Communication difficulty with talking and inconsistent with following directions Mobility and Gait pt stated that she is modified independent with all mobilities and ambulation using a 4WW indoors but uses an UP walker for outdoor mobility Social History Household Members none Living Arrangements Apartment/Condo Number of Floors (Floors) One Floor Number of Stairs To Enter/Railing? no steps to enter Home Environment High Toilet,Tub/Shower Home Equipment Four Wheel Walker,Tub Transfer Bench,Hand Held Shower,Grab Bars Near Toilet,Grab Bars In Shower Additional Social History Comment pt has a caregiver that comes in 4x/wk from 9-1 pm to assist her daughter lives across the street and checks on her when caregiver is not around pt has Meals on Wheels and has a life alert M2 PT-IP Current Condition Start: 06/25/22 12:03 Freq: NEEDED Status: Active Protocol: Document 06/25/22 09:05 AB (Rec: 06/25/22 12:17 AB [email or web address]) Physical Therapy Current Condition Current Condition Evaluation Date 09/30/22 Treatment Diagnosis acute kidney injury; difficulty in walking Onset Date 06/23/22 M3 PT-IP Subjective Start: 06/25/22 12:03 Freq: NEEDED Status: Active Protocol: Document 06/25/22 09:05 AB (Rec: 06/25/22 12:17 AB [email or web address]) Subjective Physical Therapy Visit Type Type Initial Evaluation Visit Start Time 09:05 Visit Stop Time 09:48 Total Visit Minutes 43 Number of NURSE OB Visits 0 Physical Therapy Visit Comments Patient Comments agreeable to do PT M4 PT-IP Mobility and Gait Start: 06/25/22 12:03 Freq: NEEDED Status: Active Protocol: Document 06/25/22 09:05 AB (Rec: 06/25/22 12:17 AB [id number]) PT-Bed Mobility Assessment Supine to Sit Supine to Sit Maximum Assistance,1 Person Assistance,2 Person Assistance ,Head of Bed Elevated,Bedrails PT-Transfer Assessment Sit to and From Stand Sit to and from Stand Maximum Assistance,1 Person Assistance,2 Person Assistance ,Use of Upper Extremities Equipment Transfer Assistive Device Gait Belt,Front Wheeled Walker Orthotic/Prosthetic Devices or Brace: No Transfers Transfer Destination Toilet Transfer Technique Stand Step Pivot Transfer Ability Level of Assist Maximum Assistance,1 Person Assistance,2 Person Assistance ,Use of Upper Extremities Comments Mobility Comments completed supine to sit max A x 1-2 and max cues and with HOB elevated and pt used bed rail to assist. required min A for sitting balance. pt stated that she is wet. positioned bedside commode next to pt. completed sit to stand max A x 1-2 and max cues and step transfer using FWW max A x 1-2 and max cues. max A x 1-2 for sit to stand from the commode and max A for standing balance using FWW for support while NAC assisted with hygiene care and brief management. pt completed transfer to chair max A x 1-2 and was able to take steps using FWW. positioned pt on the chair. call light and table placed within reach. Gait Assessment Gait Gait Assistance Required: Maximum Assistance,1 Person Assist,2 Person Assist Distance (Feet) 2 Able to Maintain Weight Bearing Status Yes During Gait Assistive Devices Assistive Device Gait Belt,Front Wheeled Walker Orthotic/Prosthetic Devices or Brace: No Gait Deviations General Gait Pattern Antalgic,Decreased Stride Length,Decreased Feet Clearance,Step-to Gait Factors Limiting Gait Function Factors Limiting Gait Function Decreased Activity Tolerance, Decreased Strength,Difficulty Following Directions,Limited Range of Motion,Poor Balance, Poor Safety Awareness Comments Gait Comments able to take steps during transfers using FWW PT-Balance Assessment Sitting Balance and Reactions Static Sitting Balance Ability Good Dynamic Sitting Balance Ability Fair Standing Balance and Reactions Static Standing Balance Ability Poor Dynamic Standing Balance Ability Poor Device Used FWW M5 PT-IP Objective Assessments Start: 06/25/22 12:03 Freq: NEEDED Status: Active Protocol: Document 06/25/22 09:05 AB (Rec: 06/25/22 12:17 AB [email or web address]) Orientation Orientation/Cognition Level of Alertness Confusional State Orientation Name Safety Awareness Decreased Safety Awareness Memory Description Short Term Impaired Comments having difficulty getting words out when talking Strength Lower Extremity Strength Assessment Bilaterally Impaired Hip 3-/5 Knee 3-/5 Muscle Tone Muscle Tone WNL Yes M6 PT-IP Treatment Start: 06/25/22 12:03 Freq: NEEDED Status: Active Protocol: Document 06/25/22 09:05 AB (Rec: 06/25/22 12:17 AB [email or web address]) Physical Therapy Treatment Education Education Provided Safety M7 PT-IP Assessment and Plan Start: 06/25/22 12:03 Freq: NEEDED Status: Active Protocol: Document 06/25/22 09:05 AB (Rec: 06/25/22 12:17 AB [email or web address]) PT Summary Assessment and Plan Potential Rehabilitation Potential Fair Status of Condition at Evaluation Evolving Summary Impairments Pain,ROM,Strength,Balance, Coordination,Sensation,Tone, Cognition,Bed Mobility, Transfers,Gait,Activity Tolerance Assessment Summary pt requiring max A x 1-2 with mobility using FWW. pt will require SNF rehab to improve overall strength and independence. will continue to assess progress. Goals Bed Mobility Goal Minimal Assistance Transfer Goal Minimal Assistance,Front Wheeled Walker Gait Goal Minimal Assistance,Front Wheel Walker Gait Distance 50 Other Goals improve bed mobility, transfers using 4WW SBA improve ambulation using 4WW ~ 150 ft SBA Days to Meet Goals 10 Frequency of Treatment Frequency Of Treatment Once a Day Treatment Plan Physical Therapy Treatment Plan Bed Mobility Training,Transfer Training,Gait Training, Therapeutic Exercise,Balance Retraining,Discharge Planning, Hot or Cold Pack,Neuromuscular Re-ed,Coordination Retraining Recommendations To Nursing Amount of Assist Needed 2 Person Assist Discharge Recommendations PT Discharge Recommendations SNF Rehab Equipment Needed for Home Before FWW if going home and not safe Discharge with 4WW Transportation Needs at Discharge Wheelchair/Cabulance
--- NOTE | 2022-06-25 10:53 | CM.DPC ---
Addendum entered by Pebbles Burkett R.N. 06/25/22 14:44: Spoke to patient's daughter, Gabbie Roberson. Confirmed that she is patient's DPOA for medical and financial. She prefers that all information go to her, she was informed that her son had called nursing. Let daughter know that she is main contact, along with sister, unknown about any other family members. Gabbie stated, most decisions go through me, my mom can't really make medical decisions for herself. Confirmed with her that patient has been to [facility] before, and she prefers that her mom go there, because [facility] almost killed her. Did leave February a message on patient. Daughter also feels that her mom needs more than 4 days a week of caregivers, maybe assisted living. Encouraged daughter to call patient's [employer] correctional counselor/case manager in order to get an assessment on patient. She also indicated, it would be hard to talk her mom into going to assisted living, but may eventually need it. At this time, attempting [facility]. Addendum entered by Pebbles Burkett R.N. 06/25/22 12:34: Met with patient in her room. She was sitting up in her chair. She is alert and oriented, difficulty getting her words out. Asked her about her daughter, Gabbie, and if she is aware that she is here. Patient indicated, she is, she is working, she is a [employer]. Brought in Ipad with skilled facilities on there, for P.T. has indicated that she is a max assist, and skilled is recommended. Patient indicated, she has been to [facility] before, and would prefer to go there as her first choice. Will contact Christie at [facility] to see if she could potentially accept patient when she is deemed medically stable. Patient is not yet medically stable at this time. Original Note: DCP Cont: Patient had MRI yesterday for suspected CVA. Patient had not been able to eat, was weak yesterday. Patient's MRI did not note any acute findings. Patient continues to be weak, is now starting to eat. Hospitalist is continuing to check for any additional findings. P.T. has been ordered, added speech, per hospitalist, as well. Patient has not yet been out of bed. P: DCP to continue to follow closely. Patient may need residential before going home. It is noted that patient has [employer] caregiver that comes in 4 hours a day, and lives in a downstairs apartment in [place]. Pebbles Burkett RN/Clicker Operator
[2022-06-25] MEDS: GABAPENTIN 400 MG CAPSULE 800 MG PO ×2 (12:58→20:12)
--- NOTE | 2022-06-25 13:13 | ST.IPIE ---
Visit Care Team Role Provider Type Andrea Coyne MD Primary Care Provider Non-Staff Specialty: Internal Medicine Address: [facility] [address], [place], [address] Email: Eliseo De Leon DO Emergency Provider Physician Specialty: Emergency Medicine Address: [address] [place] [address], [facility] Email: [email or web address] EMANUEL Sears Admit Provider Physician Attending Provider Specialty: Hospitalist Internal Medicine Address: [address] [place] [address], [facility] Email: Current Diagnoses Noninfective gastroenteritis and colitis, unspecified (06/23/22) Past Medical History (Last Reviewed 06/23/22 @ 04:43 by EMANUEL Sears) Acute kidney injury (Medical ~12/2018) During SNF stay r/t increased dosing TUMs, hypercalcemia Adrenal mass (Medical) adrenomyelolipoma Cardiomegaly (Medical) Depression with anxiety (Medical) Easy bruisability (Medical) Enteritis (Medical) History of concussion (Medical) History of recurrent TIAs (Medical) Botox injections Q3 months History of stroke (Medical) 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 Hyperlipidemia associated with type 2 diabetes mellitus (Medical) Hypothyroid (Medical) Migraine (Medical) post cva migraine Morbid obesity with BMI of 45.0-49.9, adult (Medical) Neuropathy (Medical) Feet ABIOLA on CPAP (Medical) Osteopenia (Medical) Polyneuropathy (Medical) Radiculopathy (Medical) Type 2 diabetes mellitus (Medical) Vitamin D deficiency (Medical) ST IP Initial Evaluation Report AIR CREW OFFICER Adult Cognitive Linguistic Eval Start: 06/25/22 12:51 Freq: Status: Active Protocol: Document 06/25/22 12:51 GILL (Rec: 06/25/22 13:12 GILL [id number]) Adult Cognitive Linguistic Evaluation Session Time Visit Start Time 11:45 Visit Stop Time 12:05 Total Visit Minutes 20 Visit Information Visit Number Initial Evaluation Setting Assessment Location Acute Care Visit Type Note Type Initial evaluation Next Note Type Next Note Type Treatment Note Patient Information Identification Type Name Patient History Per H&P: Ms. 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 She feels fatigued, dizzy, mildly SOB, and weak, with abdominal pain and cramping in the right lower quadrant, currently 5/ 10.? Patient denies fever, chills, chest pain, dysuria, syncope, hematochezia, melena, cough, sputum production, wheezing, recent URI, illness, injury or trauma. Patient notes that she is been scheduled at [facility] on July 05 for a colonoscopy an EGD . On the morning of 06/24/22, pt had an abrupt change in her altered mental status and code stroke was called. CT and MRI did not show any signs of new acute abnormalities. Headache still present, which records indicated started on 06/23/22. Language(s) Spoken in the Home Telugu Subjective Patient Report Pt was seated upright in chair when AIR CREW OFFICER arrived. She spoke with significantly halted speech and required several minutes to respond to questions with single word responses. Pt was alert and oriented x3. Mental Status Alert,Responsive,Cooperative Assessment Oral Motor Examination Completed Yes Results Severe weakness and limited ROM in tongue, lips, and jaw. Lips not observed to move for smile or pucker. Movement observed in tongue with tongue protrusion, though tongue did not protrude beyond teeth. Jaw popped when opening and limited ROM was observed. Pt unable to fully close mouth or maintain oral seal to contain air. Structures appeared symmetrical at rest. Unable to assess symmetry in motion as limited motion was observed. Pt indicated she has upper dentures by pointing to denture case and lower teeth were present and WNL. Due to limited ability to open mouth, uvula and soft palate were not observed. Speech was significantly halted and pt required several minutes to respond with one word when asked a question. Findings/Results Findings Pt presents as alert and oriented x3 though exhibits significantly halted speech due to severe weakness and limited ROM in oral structures . Provided AAC board for pt to communicate with and she demonstrated understanding by using board to communicate she had a headache and indicate pain level of 7/10. Provided labial exercises and pt expressed understanding. Recommend speech therapy to increase strength and ROM for the purposes of communicating wants and needs, especially for emergency purposes. Prognosis Prognosis Fair Based on Cognitive status,Comorbidities ,Duration of symptoms/severity ,Time since onset Plan of Care Speech-Language Treatment Yes Patient/Caregiver Education Described results of evaluation,Patient expressed understanding of evaluation, Patient expressed agreement with goals and treatment plans ,Patient requires further education/training Short Term Goals 1. Pt will perform exercises to increase strength, coordination, and ROM of oral structures independently to increase rate of speech. 2. Pt will participate in ongoing evaluation of speech, swallowing, and cognition following medical event on to inform plan of care. Custodial Goals Pt will communicate wants and needs independently and make medical decisions using total communication (e.g., verbal, AAC, gestures, etc.).
--- NOTE | 2022-06-25 14:43 | OT.IPNOTE ---
Attempted to see pt for OT eval, pt asleep and when asked to do OT eval, pt requesting to do tomorrow. Pt just recently got back to bed with nursing.
--- NOTE | 2022-06-25 14:47 | PM.PN.1 ---
Subjective Subjective Date Patient Seen: 06/25/22 Interval history: Patient continues to have difficulty with speech today. Waxing and waning as far as her ability to speak and move. She is able to write, complains of 8/10 headache. Exam Vital Signs (past 8 hours): - 06/25/22 08:25 06/25/22 08:30 06/25/22 09:00 Temperature Pulse Rate 96 H 96 H Respiratory Rate Blood Pressure 162/92 H 162/92 H Pulse Oximetry 94 Oxygen Delivery Method Room Air Oxygen Flow Rate 06/25/22 10:20 06/25/22 12:01 06/25/22 07:00 Temperature 97.5 F L Pulse Rate 91 H 91 H Respiratory Rate 18 Blood Pressure 148/77 H 148/77 H Pulse Oximetry 94 95 Oxygen Delivery Method Nasal Cannula Oxygen Flow Rate 1 1 06/25/22 12:45 06/25/22 13:00 Temperature 97.4 F L Pulse Rate 97 H Respiratory Rate 20 Blood Pressure 153/79 H Pulse Oximetry 99 97 Oxygen Delivery Method Nasal Cannula Oxygen Flow Rate 1 1 Fraction of Inspired Oxygen 24 SaO2/FiO2 Ratio 408 Oxygen Delivery Method Nasal Cannula Oxygen Flow Rate 1 Narrative Exam Narrative: General:? Patient is an obese female, eyes open, sitting in bedside chair, upright, attempting to speak but seemingly cannot. HEENT:? Normocephalic, atraumatic, oral pharynx is clear and mucous membranes are moist.? Neck is supple and symmetric, trachea is midline, no adenopathy Chest:? Normal AP diameter and contour without kyphoscoliosis, no nasal flaring, retractions, or tachypneic labored Lungs:? Auscultation of all lung graff are clear without adventitious sounds, wheezes, rhonchi, or rales. Cardio:? tachycardic rate and regular rhythm without murmur, rubs, or gallops, no carotid bruit, no cardiac pulsations present. Abdomen:? Soft and nondistended. Musculoskeletal:?no deformity or joint effusions Ext: Trace bilateral LE edema, no clubbing. Skin:? Warm dry and intact without rashes, ulcerations or petechiae.? Neuro:?decreased facial movements, slow to speak, moving all four extremities now, though lower extremities are weaker than upper. Psych:? unable to assess. Objective Labs Result Diagrams: 06/25/22 06:40 06/25/22 06:40 Labs: Laboratory Results - last 24 hr 06/25/22 06/25/22 06:40 06:40 WBC 5.8 RBC 3.65 L Hgb 11.4 L Hct 34.1 L MCV 93.4 MCH 31.2 MCHC 33.4 RDW 14.2 Plt Count 239 Neut % (Auto) 70.3 Lymph % (Auto) 18.5 L [place] % (Auto) 7.7 Eos % (Auto) 2.7 Baso % (Auto) 0.8 Neut # (Auto) 4000 Lymph # (Auto) 1100 [place] # (Auto) 400 Eos # (Auto) 200 Baso # (Auto) 0 Sodium 140 Potassium 4.7 Chloride 112 H Carbon Dioxide 23 BUN 16 Creatinine 0.92 Estimated GFR > 60 BUN/Creatinine Ratio 17.4 Glucose 86 Calcium 8.8 Magnesium 1.4 L Total Bilirubin 0.3 AST 19 ALT 14 Alkaline Phosphatase 72 Total Protein 6.6 Albumin 3.0 L Globulin 3.6 Albumin/Globulin Ratio 0.8 L PFSH Medical History Acute kidney injury (~12/2018) Adrenal mass Cardiomegaly Depression with anxiety Easy bruisability Enteritis History of concussion History of recurrent TIAs History of stroke Hyperlipidemia associated with type 2 diabetes mellitus Hypothyroid Migraine Morbid obesity with BMI of 45.0-49.9, adult Neuropathy ABIOLA on CPAP Osteopenia Polyneuropathy Radiculopathy Type 2 diabetes mellitus Vitamin D deficiency Surgical History History of 3 sections History of lumbar spinal fusion (06/27/17) History of lumbar spinal fusion (11/26/19) History of ventral hernia repair Hx of umbilical hernia repair S/P cholecystectomy S/P trigger finger release Family History Mother Heart disease Father Heart disease Grandfather Diabetes mellitus Other Family history non-contributory Social History marital status: unknown household members: none Smoking Status: Never smoker alcohol intake: never substance use type: does not use Assessment & Plan Assessment & Plan narrative: Ms. 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 Patient admitted for intractable nausea vomiting diarrhea resulting in SHARON, however on HD#1 developed stroke like symptoms of unclear etiology. 1. Neurological change - patient developed temporary paralysis on HD#1. Code stroke was called. tPA not given as patient was hypertensive, also no focal findings could be seen and patient has some chronic AV malformations putting her at some risk for intracranial bleeding per stroke service. - she has a history of complex migraines, complains still of headache. - her home verapamil was held. have ordered but intermittently difficulty with moving her jaw. - will not give triptans as there is some evidence in severe attacks of complex migraine this can cause ischemia. - she is mildly acidotic, possibly due to hypercapnea, but only PCO2 of 50 not seemingly correlated with her degree of change. - MRI was negative for acute infarct. - At this time, possibilities include metabolic disorder, complex migraine, hypercapnea / acidosis, amongst other processes, consider seizure though seems less likely. - start PT/OT with improvement, speech therapy consult as well. - continue telemetry. - hold pain medications. 2. Intractable nausea vomiting, diarrhea, abd pain (rt lower quad), acute, present on admission - this is largely improved. Per nutrition she has been taking a lot of sugar free oral candies which can cause diarrhea, this may explain some of her symptoms given negative CT findings this admission. -per Dr. Russo general surgery consult note 10/27/2021:71 y.o woman numerous abdominal surgeries admitted for enteritis.? CT demonstrates mildly dialated loops of small bowel no transition point. Report reads enteritis vs possible developing ileus.? No evidence of SBO no surgical intervention indicated.? -Given her extensive comorbidities morbid obesity, COPD, DM, CVA, numerous abdominal surgeries she is at high risk of morbidity and mortality with any operative intervention. 3. SHARON, pre renal, secondary to volume depletion from vomiting and diarrhea, acute, with hypomagnesia, acute, present on admission -patient's renal function on 10/29/2021 was within normal limits, Cr >2 on admit now improved to 0.92 -continue rehydration NS at 100 cc/HR -continue to monitor renal function -strict I&O, notify provider for urine output <50cc/hr -2 g Mag rider ordered 4. Anemia, acute, present on admission -patient's prior hematology labs were normal as 09/2021 -monitor for bleeding and trend H&H 5. Hx of CVA with history of multiple old CVA and residual right sided weakness, chronic, present on admission -patient noted to have residual right sided weakness and stuttering at baseline. see above regarding acute changes. 3. Essential hypertension, acute on chronic, present on admission -continue prazosin, verapamil when able. ? 4. . Migraine associated with CVA in past, chronic, present on admission -Hold PO meds while NPO 5. COPD, chronic, present on admission -continue Spiriva, Ventolin HFA -no exacerbation currently 6. Depression, chronic, present on admission -continue bupropion -Hold PO meds while NPO 7. Yxn-depufou-tcjzxmeth type 2 diabetes, chronic, present on admission -Hold metformin -patient admitted under diabetic protocol, blood sugar checks q.6 hours while NPO, then change to ACHS once taking PO -Hold PO meds while NPO 8. ABIOLA on CPAP, chronic, present on admission -respiratory consult ordered for CPAP 9. Morbid obesity, as evidence by BMI of 45, acute on chronic, present on admission -dietary consult on last 08/2021 -BMI 46.6 Last Hospitalization -The patient is at much higher risk for medical and surgical complications because of her morbid obesity increasing the difficulty and complexity of medical and surgical interventions and increases the chances of poor outcomes such as morbidity and mortality, as well as complications of poor wound healing, post op complications and infections. 10. Depression, chronic, present on admission -continue sertraline -Hold PO meds while NPO 11. Respiratory acidosis - continue CPAP, hold opiates for now. Suspect this in the setting of apparent transient paralysis today. ? Code Staus: DNR Surrogate decision maker: Gabbie Roberson, daughter COVID PCR: Negative DVT/VTE prophylaxis:?Hold med due to poss surg, SCDs only Disposition: start PT OT, unclear dispo at this time after today's events discussed above. I have utilized all available immediate resources to obtain, update, or review the patient's current medications. I confirmed that the patient's advanced care plan is present, Code status is documented and/or surrogate decision maker is listed in the patient's medical record Time Spent With Patient Critical Care time: I spent a total of [] minutes of critical care time on this patient's care today; this time is exclusive of procedural time. Quality VTE Deep Vein Thrombosis/Pulmonary Embolism Present on Admission: No
[2022-06-25] MEDS: SUMAtriptan 6 MG/0.5 ML VIAL SUBCUT (17:10)
[2022-06-25] MEDS: HYDRALAZINE 20 MG/ML VIAL 10 MG IV (18:22)
[2022-06-25] MEDS: ENOXAPARIN 40 MG/0.4 ML SYRINGE SUBCUT (20:10)
[2022-06-25] MEDS: PRAZOSIN 1 MG CAPSULE 2 MG PO (20:11)
[2022-06-26] VITALS (17 sets, daily range): BP systolic 105–140; BP diastolic 55–91; PULSE 80–109; RESP 16–20; TEMP 35.9–36.6; O2SAT 92–98
[2022-06-26] MEDS: ACETAMINOPHEN 325 MG TABLET 975 MG PO ×2 (04:27→15:53)
--- NOTE | 2022-06-26 04:31 | PC.NURSE ---
Pt is AxOx2-3, pleasant and cooperative. VSS except BP was high at the beginning of shift but it went down after she took her scheduled Verapamil and Minipress. Pt still c/o headache time to time and PRN Monique 800mg given at bedtime with good effect. Pt also c/o headache around 0430 and PRN Tylenol given. BG-111 at bedtime. Pt still slighlty aphasia which may be baseline to her due to previous stroke history. Otherwise, no change. Continue monitor.
--- NOTE | 2022-06-26 05:24 | PM.PN.1 ---
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 Patient did have some improvement in her headache after receiving Imitrex, but woke this morning with persistent head pain. She states it has been quite sometime since she has had a complex migraine. She does receive Botox every 3 months and last had Botox approximately 2 months and 1 week ago. Reports improvement typically with Dilaudid. She is having ongoing difficulty with her mobility. She does have some baseline right-sided weakness from her remote stroke but is typically independent. However, currently she requires significant assistance to get to the commode. She is interested in a rehab stay prior to going home. Exam Vital Signs (past 8 hours): - 06/25/22 22:00 06/26/22 01:11 06/26/22 01:00 Temperature 97.0 F L Pulse Rate 112 H 109 H Respiratory Rate 18 Blood Pressure 96/35 L 105/55 L Pulse Oximetry 92 Oxygen Delivery Method Nasal Cannula CPAP Oxygen Flow Rate 1 06/26/22 04:47 Temperature 97.8 F Pulse Rate 99 H Respiratory Rate 18 Blood Pressure 123/66 Pulse Oximetry 95 Oxygen Delivery Method Oxygen Flow Rate 1 Fraction of Inspired Oxygen 24 SaO2/FiO2 Ratio 408 Oxygen Delivery Method Nasal Cannula,CPAP Oxygen Flow Rate 1 Narrative Exam Narrative: GEN: Pleasant middle-aged female, Alert and oriented x 3, NAD HEENT:NC, Face symmetric CHEST: Respiratory excursions symmetric, CTAB CV: RRR, no M/R/G ABD: Soft, NT/ND, BT present in all 4 quadrants, body habitus limits exam EXTR: warm, well perfused, no C/C/E SKIN: warm and dry, no rash NEURO: Alert and oriented x 3, somewhat dysarthric with stuttering speech Objective Labs Result Diagrams: 06/25/22 06:40 06/25/22 06:40 Labs: Laboratory Results - last 24 hr 06/25/22 06/25/22 06:40 06:40 WBC 5.8 RBC 3.65 L Hgb 11.4 L Hct 34.1 L MCV 93.4 MCH 31.2 MCHC 33.4 RDW 14.2 Plt Count 239 Neut % (Auto) 70.3 Lymph % (Auto) 18.5 L [place] % (Auto) 7.7 Eos % (Auto) 2.7 Baso % (Auto) 0.8 Neut # (Auto) 4000 Lymph # (Auto) 1100 [place] # (Auto) 400 Eos # (Auto) 200 Baso # (Auto) 0 Sodium 140 Potassium 4.7 Chloride 112 H Carbon Dioxide 23 BUN 16 Creatinine 0.92 Estimated GFR > 60 BUN/Creatinine Ratio 17.4 Glucose 86 Calcium 8.8 Magnesium 1.4 L Total Bilirubin 0.3 AST 19 ALT 14 Alkaline Phosphatase 72 Total Protein 6.6 Albumin 3.0 L Globulin 3.6 Albumin/Globulin Ratio 0.8 L PFSH Medical History Acute kidney injury (~12/2018) Adrenal mass Cardiomegaly Depression with anxiety Easy bruisability Enteritis History of concussion History of recurrent TIAs History of stroke Hyperlipidemia associated with type 2 diabetes mellitus Hypothyroid Migraine Morbid obesity with BMI of 45.0-49.9, adult Neuropathy ABIOLA on CPAP Osteopenia Polyneuropathy Radiculopathy Type 2 diabetes mellitus Vitamin D deficiency Surgical History History of 3 sections History of lumbar spinal fusion (06/27/17) History of lumbar spinal fusion (11/26/19) History of ventral hernia repair Hx of umbilical hernia repair S/P cholecystectomy S/P trigger finger release Family History Mother Heart disease Father Heart disease Grandfather Diabetes mellitus Other Family history non-contributory Social History marital status: unknown household members: none Smoking Status: Never smoker alcohol intake: never substance use type: does not use Assessment & Plan Assessment & Plan narrative: 1. Hemiplegic migraine Given prior history of stroke, there was initial concern about her having had an acute stroke. Symptoms began on hospital day 1. Code stroke was called but tPA was not given. She did receive sumatriptan yesterday with mild improvement. Will trial IV Dilaudid today. If ineffective, will consider IV Depakote to attempt to abort her current migraine. She is due for Botox later this month for her chronic migraine control. 2. Intractable nausea vomiting, diarrhea, abd pain (rt lower quad), acute, present on admission [place] likely to have represented ileus. This has resolved. 3. SHARON, pre renal, secondary to volume depletion from vomiting and diarrhea, acute, with hypomagnesia, acute,? present on admission Creatinine has normalized and is back down to 0.92 from a peak of 2.25. ? 4. Hypomagnesemia Magnesium has been low since admission. She did receive repletion with brief improvement. This could certainly be aggravating her migraine. Will give IV magnesium replacement today. 5. Anemia, acute, present on admission Patient has mild anemia with a hemoglobin of 11.4, down from baseline of around 12.6. No evidence of active bleeding. Will monitor. 6. Hx of CVA with history of multiple old CVA and residual right sided weakness, chronic, present on admission Continue working with therapies. Continue Plavix. 7. Essential hypertension, acute on chronic, present on admission Blood pressures are currently normotensive. Continue losartan, prazosin, and verapamil. 8. COPD, chronic, present on admission No evidence of exacerbation. Will restart Spiriva as this was not restarted on admission. Continue nebulizers as needed. 9. Depression, chronic, present on admission Restart bupropion today. 7. Rlv-jjoxyjp-zfcdxxrdt type 2 diabetes, chronic, present on admission Holding metformin. Continue controlled carb diet. BGs well-controlled. 8. ABIOLA on CPAP, chronic, present on admission On CPAP at home. 9. Class 3 obesity BMI is 46.9. Would greatly benefit from weight reduction. 10. Depression, chronic, present on admission Continue sertraline 11. Respiratory acidosis Resolved. Was felt likely to be secondary to her acute onset of paralysis. ? Code Status DNR Surrogate decision maker: Gabbie Roberson, daughter Prophylaxis: On Lovenox Disposition: senior living facility placement pending Time Spent With Patient Critical Care time: I spent a total of [] minutes of critical care time on this patient's care today; this time is exclusive of procedural time. Quality VTE Deep Vein Thrombosis/Pulmonary Embolism Present on Admission: No
[2022-06-26] MEDS: VERAPAMIL 80 MG TABLET PO ×3 (08:05→20:10)
[2022-06-26] MEDS: CLOPIDOGREL 75 MG TABLET PO (08:06)
[2022-06-26] MEDS: LOSARTAN 50 MG TABLET PO (08:06)
[2022-06-26] MEDS: SERTRALINE 50 MG TABLET 100 MG PO (08:06)
[2022-06-26] MEDS: ENOXAPARIN 40 MG/0.4 ML SYRINGE SUBCUT ×2 (08:06→20:10)
[2022-06-26] MEDS: HYDROMORPHONE 1 MG INJ IV (11:00)
--- NOTE | 2022-06-26 11:39 | PT.IPTN ---
Current Diagnoses Noninfective gastroenteritis and colitis, unspecified (06/23/22) Physical Therapy Treatment Note M2 PT-IP Current Condition Start: 06/25/22 12:03 Freq: NEEDED Status: Active Protocol: Document 06/25/22 09:05 AB (Rec: 06/25/22 12:17 AB [email or web address]) Physical Therapy Current Condition Current Condition Evaluation Date 06/25/22 Treatment Diagnosis acute kidney injury; difficulty in walking Onset Date 06/23/22 M3 PT-IP Subjective Start: 06/25/22 12:03 Freq: NEEDED Status: Active Protocol: Document 06/26/22 11:39 AB (Rec: 06/26/22 13:15 AB [email or web address]) Subjective Physical Therapy Visit Type Type Treatment Note Visit Start Time 11:39 Visit Stop Time 12:01 Total Visit Minutes 22 Number of MANUFACTURING TEST TECHNICIAN Visits 0 Physical Therapy Visit Comments Patient Comments agreeable to do PT M4 PT-IP Mobility and Gait Start: 06/25/22 12:03 Freq: NEEDED Status: Active Protocol: Document 06/26/22 11:39 AB (Rec: 06/26/22 13:15 AB [email or web address]) PT-Transfer Assessment Sit to and From Stand Sit to and from Stand Minimal Assistance,Moderate Assistance,1 Person Assistance ,Use of Upper Extremities Equipment Transfer Assistive Device Gait Belt,Front Wheeled Walker Orthotic/Prosthetic Devices or Brace: No Comments Mobility Comments pt sitting on the chair and agreed to do PT. completed sit to stand mod A and cues and ambulated using FWW ~ 20 ft min A. (+) SOB and O2 sat: 88 %. cued for deep breathing and O2 sat increase to 90% ~ 15 sec. pt educated on sit<>stand technique and completed sit <> stand x 3 reps min A and cues. positioned pt on the chair. call light and table placed within reach. Gait Assessment Gait Gait Assistance Required: Minimum Assistance Distance (Feet) 20 Able to Maintain Weight Bearing Status Yes During Gait Assistive Devices Assistive Device Gait Belt,Front Wheeled Walker Orthotic/Prosthetic Devices or Brace: No Gait Deviations General Gait Pattern Decreased Stride Length, Decreased Feet Clearance,Step- to Gait Factors Limiting Gait Function Factors Limiting Gait Function Decreased Activity Tolerance, Difficulty Following Directions,Poor Balance,Poor Safety Awareness,Respiratory Distress M5 PT-IP Objective Assessments Start: 06/25/22 12:03 Freq: NEEDED Status: Active Protocol: Document 06/25/22 09:05 AB (Rec: 06/25/22 12:17 AB [id number]) Orientation Orientation/Cognition Level of Alertness Confusional State Orientation Name Safety Awareness Decreased Safety Awareness Memory Description Short Term Impaired Comments having difficulty getting words out when talking Strength Lower Extremity Strength Assessment Bilaterally Impaired Hip 3-/5 Knee 3-/5 Muscle Tone Muscle Tone WNL Yes M6 PT-IP Treatment Start: 06/25/22 12:03 Freq: NEEDED Status: Active Protocol: Document 06/26/22 11:39 AB (Rec: 06/26/22 13:15 AB [email or web address]) Physical Therapy Treatment Education Education Provided Safety M7 PT-IP Assessment and Plan Start: 06/25/22 12:03 Freq: NEEDED Status: Active Protocol: Document 06/26/22 11:39 AB (Rec: 06/26/22 13:15 AB [email or web address]) PT Summary Assessment and Plan Potential Rehabilitation Potential Fair Summary Impairments Pain,ROM,Strength,Balance, Coordination,Sensation,Tone, Cognition,Bed Mobility, Transfers,Gait,Activity Tolerance Progress Towards Goals Slow Progress due to Medical Issues,Slow Progress due to Activity Tolerance,Slow Progress - Other Assessment Summary pt progressing slowly with mobility but continues to require min to mod A using FWW and has decrease activity tolerance with decrease in O2 sat with ambulation to 88% with (+) SOB. pt will need SNF rehab at this time. will continue to assess progress. Goals Bed Mobility Goal Minimal Assistance Transfer Goal Minimal Assistance,Front Wheeled Walker Gait Goal Minimal Assistance,Front Wheel Walker Gait Distance 50 Other Goals improve bed mobility, transfers using 4WW SBA improve ambulation using 4WW ~ 150 ft SBA Days to Meet Goals 10 Frequency of Treatment Frequency Of Treatment Once a Day Treatment Plan Physical Therapy Treatment Plan Bed Mobility Training,Transfer Training,Gait Training, Therapeutic Exercise,Balance Retraining,Discharge Planning, Hot or Cold Pack,Neuromuscular Re-ed,Coordination Retraining Recommendations To Nursing Amount of Assist Needed 1 Person Assist Discharge Recommendations PT Discharge Recommendations SNF Rehab Transportation Needs at Discharge Wheelchair/Cabulance
--- NOTE | 2022-06-26 11:40 | OT.IP.EVAL ---
Current Diagnoses Noninfective gastroenteritis and colitis, unspecified (06/23/22) Past Medical History (Last Reviewed 06/23/22 @ 04:43 by NEELAM Sears-SUSANNAH) Acute kidney injury (~12/2018) Adrenal mass Cardiomegaly Depression with anxiety Easy bruisability Enteritis History of concussion History of recurrent TIAs History of stroke Hyperlipidemia associated with type 2 diabetes mellitus Hypothyroid Migraine Morbid obesity with BMI of 45.0-49.9, adult Neuropathy ABIOLA on CPAP Osteopenia Polyneuropathy Radiculopathy Type 2 diabetes mellitus Vitamin D deficiency Surgical History (Last Reviewed 06/23/22 @ 04:43 by NEELAM Sears-SUSANNAH) History of 3 sections History of lumbar spinal fusion (06/27/17) History of lumbar spinal fusion (11/26/19) History of ventral hernia repair Hx of umbilical hernia repair S/P cholecystectomy S/P trigger finger release Occupational Therapy Inpatient Evaluation/Re-Eval M1 PT/OT-IP Prior Functional Status Start: 06/25/22 12:03 Freq: NEEDED Status: Active Protocol: Document 06/26/22 10:20 [facility] (Rec: 06/26/22 12:58 [facility] [id number]) Medical Review Prior Functional Status Medical History Reviewed Yes Communication difficulty with talking Mobility and Gait pt stated that she is modified independent with all mobilities and ambulation using a 4WW indoors but uses an UP walker for outdoor mobility Activities of Daily Living and IADL's Pt states has assist for baths and IADL needs. Pt has caregiver assist 9AM-1PM for M ,W,R,F Social History Household Members none Living Arrangements Apartment/Condo Number of Floors (Floors) One Floor Number of Stairs To Enter/Railing? no steps to enter Home Environment High Toilet,Tub/Shower Home Equipment Four Wheel Walker,Tub Transfer Bench,Hand Held Shower,Grab Bars Near Toilet,Grab Bars In Shower Additional Social History Comment pt has a caregiver that comes in 4x/wk from 9-1 pm to assist her daughter lives across the street and checks on her when caregiver is not around pt has Meals on Wheels and has a life alert M2 OT-IP Current Condition Start: 06/26/22 12:39 Freq: Status: Active Protocol: Document 06/26/22 10:20 [facility] (Rec: 06/26/22 12:58 [facility] [id number]) Occupational Therapy Current Condition Current Condition Evaluation Date 06/26/22 Treatment Diagnosis Hemiplegic migraine, decreased mobility Diagnosis Onset Date 06/23/22 M3 OT- IP Subjective and Pain Start: 06/26/22 12:39 Freq: Status: Active Protocol: Document 06/26/22 10:20 [facility] (Rec: 06/26/22 12:58 [facility] [id number]) OT- Subjective Occupational Therapy Visit Type Type Initial Evaluation Visit Start Time 10: Visit Stop Time 11:00 Total Visit Minutes 40 Occupational Therapy Visit Comments Patient Comments Pt agreed to work with OT, Patient/Caregiver Goals TO go to skilled rehab to get better prior to going home. OT Pain Assessment Pain When Pain Assessed At Rest Pain Present Pain Present Pain Reported M4 OT- IP ADL's Start: 06/26/22 12:39 Freq: Status: Active Protocol: Document 06/26/22 10:20 [facility] (Rec: 06/26/22 12:58 [facility] [id number]) OT [id number]-Ydsomwy Comments OT Self-Feeding Comments Pt states able to eat softer food today and drink appropriately. OT ADL-Grooming General Evaluation Grooming Ability Standby Assistance Comments OT Grooming Comments Pt able to wash her face after set-up of wash cloth. OT ADL-Oral Care General Eval Oral Care Ability Moderate Assistance Areas of Assistance Managing Dentures Comments Oral Care Comments Assist to help rinse off her denture and pt able to put her upper denture in with increased time. OT ADL-Dressing General Eval Lower Body Dressing Ability Maximum Assistance Areas Needing Assistance Socks Comments OT Dressing Comments Assist to zakia/doff her socks. OT ADL-Toileting Comments OT Toileting Comments Not performed. Pt states has difficulty for reaching for percare needs and educated pt on options of getting a toilet paper aid or bidet to increased independence with hygiene needs. OT ADL-Bathing Bathing Type Bathing Type Sponge Bath General Evaluation Bathing Ability Maximal Assistance Areas Needing Assistance Wash/Dry Back,Wash/Dry Lower Extremities Comments OT Bathing Comments Pt agreed to sponge off while seated in the recliner. M5 OT- IP IADL's Start: 06/26/22 12:39 Freq: Status: Active Protocol: Document 06/26/22 10:20 [facility] (Rec: 06/26/22 12:58 [facility] [id number]) OT-Instrumental Activities of Daily Living Home Safety Awareness Awareness of Need for Assistance at Home Good Awareness Ability to Problem Solve Emergency Able to Problem Solve Situations Home Safety Comments At this time due to pt's decreased mobility and weakness, pt would need physical assist for all needs. Medication Management Medication Management No Deficits Identified Money Management Money Management No Deficits Identified Meal Preparation Meal Preparation Caregiver Provides Assist M6 OT- IP Functional Cognition Start: 06/26/22 12:39 Freq: Status: Active Protocol: Document 06/26/22 10:20 [facility] (Rec: 06/26/22 12:58 [facility] [id number]) Cognitive Factors Limiting Selfcare Function Cognitive Ability Level of Alertness Alert Patient Orientation Name,Place,Situation Attention Span Ability Capable of Focused Attention, Capable of Sustained Attention Ability to Follow Commands Able to Follow One Step Commands Cognitive Comments Cognitive Assessment Comments Pt able to follow commands but having difficulty to get the words out expressive aphrasia . OT- Vision and Hearing OT- Hearing Assessment OT- Hearing Assessment Use of Hearing Aids OT- Vision Assessment Visual Acuity Glasses All The Time Visual Attentiveness WFL Occular Pursuits WFL M7 OT- IP Mobility and Balance Start: 06/26/22 12:39 Freq: Status: Active Protocol: Document 06/26/22 10:20 [facility] (Rec: 06/26/22 12:58 [facility] [id number]) OT-Transfer Assessment Sit to and From Stand Sit to and from Stand Maximum Assistance,1 Person Assistance Comments Mobility Comments Pt needing MAX X 1 to stand to FWW at this time. Pt able to stand for 20 seconds with JITENDRA once up on her feet with the FWW. OT- Balance Assessment Sitting Balance and Reactions Static Sitting Balance Ability Good Dynamic Sitting Balance Ability Fair Standing Balance and Reactions Static Standing Balance Ability Poor M8 OT- IP Objective Assessments Start: 06/26/22 12:39 Freq: Status: Active Protocol: Document 06/26/22 10:20 [facility] (Rec: 06/26/22 12:58 [facility] [id number]) OT Gross Range of Motion Upper Extremity Range of Motion Assessment Within Functional Limits OT Strength Comments Strength Comments RUE 4-/5 to 3+/5 and LUE 4-/5 throughout OT- Coordination Assessment Comments Coordination Comments Pt able to take out her hearing aids on her own. OT-Muscle Tone Assessment Comments Muscle Tone Comments Noted bilateral hands tend to tremor at times. OT Sensation Assessment Comments Summary Comments Intact light touch. Edema Edema Comments Noted swelling in bilateral hands. M9 OT- IP Assessment and Plan Start: 06/26/22 12:39 Freq: Status: Active Protocol: Document 06/26/22 10:20 [facility] (Rec: 06/26/22 12:58 [facility] [id number]) OT Summary Assessment and Plan Potential Rehabilitation Potential Good Analytic Complexity at Evaluation Moderate Summary OT Impairments Pain,Range of Motion,Strength, Balance,Functional Mobility, Self-Feeding,Grooming,Dressing ,Toileting,Bathing,Toilet Transfers,Shower Transfers, Activity Tolerance Progress Towards Goals Slow Progress due to Pain,Slow Progress due to Medical Issues,Slow Progress due to Activity Tolerance Assessment Summary Pt MOD complexity and main barriers are decreased ability to get the words out, decreased, strength, balance and activity tolerance and needing two person assist for transfers at this time. Pt is far from her baseline needs of MOD I with all needs of ADL 's except needing assist from her caregiver for bathing needs. Pt is very cooperative, pleasant and motivated to get better. Pt to go to skilled rehab when medically stable. Goals Self-Feeding Goal Independent Grooming Goal Independent Dressing Goal Independent Toileting Goal Independent Bathing Goal Moderate Assistance Toilet Transfer Goal Independent Shower Transfer Goal Standby Assistance Days to Meet Goals 20 Frequency of Treatment Frequency Of Treatment Once a Day Treatment Plan OT Treatment Plan ADL Training,Functional Mobility,Patient/Family Education,Discharge Planning Other Treatment Recommendations and Next Transfer to [facility] with MODA x 1 Treatment Focus Discharge Recommendations OT Discharge Recommendations SNF Rehab Transportation Needs at Discharge Wheelchair/Cabulance
[2022-06-26] MEDS: buPROPion XL 150 MG TAB 300 MG PO (11:56)
[2022-06-26] MEDS: MAGNESIUM SULFATE 2 GM/50 ML PIGGYBACK IV (11:57)
--- NOTE | 2022-06-26 15:26 | CM.DPNOTE ---
Discharge Planning Note: Patient continues with weakness and needing considerable assistance per therapy notes who are recommending SNF rehab upon discharge. Spoke with Christie at [facility] and they could not accept until /Tue. This was patient's first choice. Also sent referral today to [facility] in [facility]. Most likely they could not review tuesday. Spoke with daughter Gabbie by phone and updated her of above. She works at [facility] [employer] and cannot visit her mom here tuesday. Plan: Follow for needs. Follow up with SNFs. Suellen Hickman RN/DCP
[2022-06-26] MEDS: IPRATROPIUM 0.5 MG/2.5 ML NEB INH ×3 (16:24→20:05)
[2022-06-26] MEDS: PRAZOSIN 1 MG CAPSULE 2 MG PO (20:10)
[2022-06-26] MEDS: VALPROIC ACID 1,000 MG in DEXTROSE 5 % IN WATER 50 ML 60 MG IV (20:17)
[2022-06-27] VITALS (8 sets, daily range): BP systolic 141–152; BP diastolic 74–83; PULSE 89–94; RESP 16–21; TEMP 36.2–36.9; O2SAT 91–96
--- NOTE | 2022-06-27 05:34 | P.PN_ITS ---
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 Patient did have some improvement in her headache after receiving Imitrex, but yesterday had persistent head pain which she rated at 8/10..? She states it has been quite sometime since she has had a complex migraine.? She does receive Botox every 3 months and last had Botox approximately 2 months and 1 week ago.? Reports improvement typically with Dilaudid.? She is having ongoing difficulty with her mobility but notes today she was able to work with therapy and feels as though she did better.? She does have some baseline right-sided weakness from her remote stroke but is typically independent.? She reports she did not get much benefit from the Depakote, but with the Dilaudid this morning her headache was down to a 4/10. Her headache has picked up a bit this afternoon but she rates it as a 5 or 6 which is significantly improved from her previous 8/10 yesterday. Exam Vital Signs (past 8 hours): - 06/27/22 00:00 06/27/22 04:12 06/27/22 04:00 Temperature 97.2 F L Pulse Rate 93 H Respiratory Rate 18 Blood Pressure 143/74 H Pulse Oximetry 94 94 Oxygen Delivery Method Room Air CPAP Room Air CPAP Oxygen Flow Rate 0 0 Fraction of Inspired Oxygen 24 SaO2/FiO2 Ratio 408 Oxygen Delivery Method Room Air,CPAP Oxygen Flow Rate 0 Narrative Exam Narrative: GEN:? Pleasant middle-aged female, Alert and oriented x 3, NAD HEENT:NC, Face symmetric CHEST: Respiratory excursions symmetric, CTAB CV: RRR, no M/R/G ABD: Soft, NT/ND, BT present in all 4 quadrants, body habitus limits exam EXTR: warm, well perfused, no C/C/E SKIN: warm and dry, no rash NEURO: Alert and oriented x 3, somewhat dysarthric with stuttering speech, but improvement overall Objective Labs Result Diagrams: 06/27/22 06:45 06/27/22 06:45 [facility] Medical History Acute kidney injury (~12/2018) Adrenal mass Cardiomegaly Depression with anxiety Easy bruisability Enteritis History of concussion History of recurrent TIAs History of stroke Hyperlipidemia associated with type 2 diabetes mellitus Hypothyroid Migraine Morbid obesity with BMI of 45.0-49.9, adult Neuropathy ABIOLA on CPAP Osteopenia Polyneuropathy Radiculopathy Type 2 diabetes mellitus Vitamin D deficiency Surgical History History of 3 sections History of lumbar spinal fusion (06/27/17) History of lumbar spinal fusion (11/26/19) History of ventral hernia repair Hx of umbilical hernia repair S/P cholecystectomy S/P trigger finger release Family History Mother Heart disease Father Heart disease Grandfather Diabetes mellitus Other Family history non-contributory Social History marital status: unknown household members: none Smoking Status: Never smoker alcohol intake: never substance use type: does not use Assessment & Plan Assessment & Plan narrative: 1. Hemiplegic migraine Given prior history of stroke, there was initial concern about her having had an acute stroke.? Symptoms began on hospital day 1. Code stroke was called but tPA was not given.? She did receive sumatriptan on June 25 with mild improvement.? No significant improvement with IV Depakote yesterday. She is having good results with IV Dilaudid will continue as needed. 2. Intractable nausea vomiting, diarrhea, abd pain (rt lower quad), acute, present on admission [place] likely to have represented ileus.? This has resolved. 3. SHARON, pre renal, secondary to volume depletion from vomiting and diarrhea, acute, with hypomagnesia, acute,? present on admission Creatinine has normalized and is back down to 0.92 from a peak of 2.25. SHARON has resolved. ? 4. Hypomagnesemia Magnesium has been low since admission.? She did receive repletion with brief improvement.? She received IV magnesium replacement yesterday and today her magnesium is up to 1.7 5. Anemia, acute, present on admission Patient has mild anemia with a hemoglobin of 11.4 yesterday and 11.3 today, down from baseline of around 12.6.? No evidence of active bleeding.? Might simply be secondary to blood draws. 6. Hx of CVA with history of multiple old CVA and residual right sided weakness, chronic, present on admission Continue working with therapies.? Continue Plavix. 7. Essential hypertension, acute on chronic, present on admission Blood pressures are currently mild to moderately hypertensive. Continue losartan, prazosin, and verapamil. 8. COPD, chronic, present on admission No evidence of exacerbation.? Continue Spiriva.? Continue nebulizers as needed. 9. Depression, chronic, present on admission Continue bupropion. 7. Oty-ozfogoo-imotjysvr type 2 diabetes, chronic, present on admission Holding metformin.? Continue controlled carb diet.? BGs well-controlled. 8. ABIOLA on CPAP, chronic, present on admission On CPAP at home. 9. Class 3 obesity BMI is 46.9.? Would greatly benefit from weight reduction.? 10. Depression, chronic, present on admission Continue sertraline 11. Respiratory acidosis Resolved.? Was felt likely to be secondary to her acute onset of paralysis. ? Code Status DNR Surrogate decision maker: Gabbie Roberson, daughter Prophylaxis: On Lovenox Disposition: group home facility placement pending. [facility] but due to difficulty tolerating COVID vaccination and hospitalization after her initial COVID vaccine, [facility] is trying to determine whether they can accept her without requiring isolation precautions. [facility]andra Pacheco referral was made today as well. Time Spent With Patient Critical Care time: I spent a total of [] minutes of critical care time on this patient's care today; this time is exclusive of procedural time. Quality VTE Deep Vein Thrombosis/Pulmonary Embolism Present on Admission: No
[2022-06-27 08:07] LABS: Add Manual Diff / Slide Review NO; Basophils Absolute Auto 0 /uL (0-100); Basophils Percent Auto 0.6 % (0-2); Eosinophils Absolute Auto 300 /uL (0-450); Eosinophils Percent Auto 5.4 % (2-4); Hematocrit 33.5 % (36-46); Hemoglobin 11.3 g/dL (12.0-16.0); Lymphocytes Absolute Auto 1200 /uL (1100-4500); Mean Corpuscular HGB Conc 33.7 % (30-36); Mean Corpuscular Hemoglobin 31.2 PG (26-34); Mean Corpuscular Volume 92.7 fL (80-100); Monocytes Absolute Auto 500 /uL (0-900); Monocytes Percent Auto 9.1 % (3-14); Neutrophils Absolute Auto 3400 /uL (1500-7000); Neutrophils Percent Auto 62.9 % (50-75); Platelet Count 250 X10^3/uL (150-400); Red Blood Cell Count 3.61 X10^6/uL (4.0-5.2); Red Cell Distribution Width 14.1 % (11.6-14.8); White Blood Cell Count 5.4 X10^3/uL (4.5-11.0)
[2022-06-27 08:24] LABS: BUN Creatinine Ratio 17.2 (6-22); Blood Urea Nitrogen 16 mg/dL (7-17); Calcium 9.1 mg/dL (8.4-10.2); Carbon Dioxide 24 mmol/L (22-32); Chloride 109 mmol/L (98-107); Estimated Glomerular Filt Rate > 60 mL/min (>60); Glucose 96 mg/dL (80-110); HEMOLYSIS < 15 (0-50); Magnesium 1.7 mg/dL (1.6-2.3); Potassium 4.3 mmol/L (3.4-5.1); Sodium 138 mmol/L (137-145)
[2022-06-27] MEDS: ENOXAPARIN 40 MG/0.4 ML SYRINGE SUBCUT ×2 (09:07→20:13)
[2022-06-27] MEDS: SERTRALINE 50 MG TABLET 100 MG PO (09:07)
[2022-06-27] MEDS: buPROPion XL 150 MG TAB 300 MG PO (09:07)
[2022-06-27] MEDS: CLOPIDOGREL 75 MG TABLET PO (09:07)
[2022-06-27] MEDS: VERAPAMIL 80 MG TABLET PO ×3 (09:07→20:14)
[2022-06-27] MEDS: LOSARTAN 50 MG TABLET PO (09:07)
[2022-06-27] MEDS: ACETAMINOPHEN 325 MG TABLET 975 MG PO (09:14)
--- NOTE | 2022-06-27 09:41 | PT.IPTN ---
Current Diagnoses Noninfective gastroenteritis and colitis, unspecified (06/23/22) Physical Therapy Treatment Note M2 PT-IP Current Condition Start: 06/25/22 12:03 Freq: NEEDED Status: Active Protocol: Document 06/25/22 09:05 AB (Rec: 06/25/22 12:17 AB [id number]) Physical Therapy Current Condition Current Condition Evaluation Date 06/25/22 Treatment Diagnosis acute kidney injury; difficulty in walking Onset Date 06/23/22 M3 PT-IP Subjective Start: 06/25/22 12:03 Freq: NEEDED Status: Active Protocol: Document 06/27/22 09:41 AW (Rec: 06/27/22 12:26 AW [id number]) Subjective Physical Therapy Visit Type Type Treatment Note Visit Start Time 09:24 Visit Stop Time 06:41 Total Visit Minutes 17 Number of [employer] INSPECTOR Visits 0 Physical Therapy Visit Comments Patient Comments agreeable to do PT Therapy Pain Assessment Pain When Pain Assessed During Mobility Pain Present Pain Present Denied Pain M4 PT-IP Mobility and Gait Start: 06/25/22 12:03 Freq: NEEDED Status: Active Protocol: Document 06/27/22 09:41 AW (Rec: 06/27/22 12:26 AW [id number]) PT-Transfer Assessment Sit to and From Stand Sit to and from Stand Minimal Assistance,1 Person Assistance,Use of Upper Extremities Equipment Transfer Assistive Device Gait Belt,Front Wheeled Walker Orthotic/Prosthetic Devices or Brace: No Transfers Transfer Destination Chair Transfer Technique Stand Step Pivot Transfer Ability Level of Assist Minimal Assistance,1 Person Assistance,Use of Upper Extremities Comments Mobility Comments Pt was sitting up on the chair as PT arrived. She stood min A and used FWW to walk around the room a total of 30 feet with 3 standing rest breaks. SpO2 was stable 94-96% throughout treatment. Slight SOB was limiting factor. On return to the chair, pt was able to complete sit to stand x 4 min A. Gait Assessment Gait Gait Assistance Required: Contact Guard Assist,Minimum Assistance Distance (Feet) 30 Able to Maintain Weight Bearing Status Yes During Gait Assistive Devices Assistive Device Gait Belt,Front Wheeled Walker Orthotic/Prosthetic Devices or Brace: No Gait Deviations General Gait Pattern Decreased Stride Length, Decreased Feet Clearance,Step- to Gait Factors Limiting Gait Function Factors Limiting Gait Function Decreased Activity Tolerance, Difficulty Following Directions,Poor Balance,Poor Safety Awareness,Respiratory Distress M5 PT-IP Objective Assessments Start: 06/25/22 12:03 Freq: NEEDED Status: Active Protocol: Document 06/25/22 09:05 AB (Rec: 06/25/22 12:17 AB [id number]) Orientation Orientation/Cognition Level of Alertness Confusional State Orientation Name Safety Awareness Decreased Safety Awareness Memory Description Short Term Impaired Comments having difficulty getting words out when talking Strength Lower Extremity Strength Assessment Bilaterally Impaired Hip 3-/5 Knee 3-/5 Muscle Tone Muscle Tone WNL Yes M6 PT-IP Treatment Start: 06/25/22 12:03 Freq: NEEDED Status: Active Protocol: Document 06/27/22 09:41 AW (Rec: 06/27/22 12:26 AW [id number]) Physical Therapy Treatment Education Education Provided Safety M7 PT-IP Assessment and Plan Start: 06/25/22 12:03 Freq: NEEDED Status: Active Protocol: Document 06/27/22 09:41 AW (Rec: 06/27/22 12:26 AW [id number]) PT Summary Assessment and Plan Potential Rehabilitation Potential Good Summary Impairments Pain,ROM,Strength,Balance, Coordination,Sensation,Tone, Cognition,Bed Mobility, Transfers,Gait,Activity Tolerance Assessment Summary Pt still needing min A for mobility with FWW. Activity tolerance is improving slightly but pt concedes she is below her functional baseline. She would benefit from SNF rehab to improve strength and mobility independence before return home with assist. Goals Bed Mobility Goal Minimal Assistance Transfer Goal Minimal Assistance,Front Wheeled Walker Gait Goal Minimal Assistance,Front Wheel Walker Gait Distance 50 Other Goals improve bed mobility, transfers using 4WW SBA improve ambulation using 4WW ~ 150 ft SBA Days to Meet Goals 10 Frequency of Treatment Frequency Of Treatment Once a Day Treatment Plan Physical Therapy Treatment Plan Bed Mobility Training,Transfer Training,Gait Training, Therapeutic Exercise,Balance Retraining,Discharge Planning, Hot or Cold Pack,Neuromuscular Re-ed,Coordination Retraining Other Recommendations and Next Treatment Increase gait distance Focus Recommendations To Nursing Amount of Assist Needed 1 Person Assist Discharge Recommendations PT Discharge Recommendations SNF Rehab Transportation Needs at Discharge Wheelchair/Cabulance
--- NOTE | 2022-06-27 11:19 | CM.DPNOTE ---
Addendum entered by Gregoria Hickman R.N. 06/27/22 15:19: Spoke with Christie ([facility]), they will discuss booster situation in am meeting and let us know in morning. Note: Referral had also been sent to [facility]. Plan: Add to plan to check in with [facility] [place]. VYAS Original Note: Discharge Planning Note: Patient due for PT today. She is feeling better, migraine is decreasing. Spoke with Christie at [facility] (patient's choice) and faxed her a copy of the Novavax Covid booster that patient received on 06.06.22. Christie states since patient only received one of the original series (per patient due to vaccine RXN) she will need to find out if this is acceptable to admit. Plan: Follow up with Christie regarding booster and admit. Follow up with PT. Suellen Hickman RN/DCP
[2022-06-27] MEDS: MAGNESIUM CHLORIDE 64 MG TABLET 128 MG PO (12:13)
[2022-06-27] MEDS: HYDROMORPHONE 1 MG INJ IV (18:19)
[2022-06-27] MEDS: PRAZOSIN 1 MG CAPSULE 2 MG PO (20:13)
[2022-06-28 01:28] VITALS: O2SAT 91
[2022-06-28] MEDS: SODIUM CHLORIDE 0.9% FLUSH 10 ML IV ×2 (01:53→11:21)
[2022-06-28] MEDS: HYDROMORPHONE 1 MG INJ IV (01:53)
--- NOTE | 2022-06-28 04:51 | PC.NURSE ---
Pt pleasant with staff and care. SOB on rest, wheezing after walking to bathroom, sating in low 90s. NIH 2 d/t stutter. Pt states her stutter comes back when i have migraines. Pt has had migraine since during the day. IV Dilaudid given per pt request for migraine pain, staff educated pt that PO is needed in order to discharge. Pt has CPAP on for sleep.
[2022-06-28 06:47] LABS: Magnesium 1.4 mg/dL (1.6-2.3)
[2022-06-28 07:00] VITALS: BP 169/65; PULSE 93; RESP 19; TEMP 36.3; O2SAT 96
[2022-06-28] MEDS: VERAPAMIL 80 MG TABLET PO (08:16)
[2022-06-28] MEDS: CLOPIDOGREL 75 MG TABLET PO (08:16)
[2022-06-28] MEDS: SERTRALINE 50 MG TABLET 100 MG PO (08:16)
[2022-06-28] MEDS: ACETAMINOPHEN 325 MG TABLET 975 MG PO (08:16)
[2022-06-28] MEDS: ENOXAPARIN 40 MG/0.4 ML SYRINGE SUBCUT (08:16)
[2022-06-28] MEDS: LOSARTAN 50 MG TABLET PO (08:16)
[2022-06-28] MEDS: buPROPion XL 150 MG TAB 300 MG PO (08:16)
--- NOTE | 2022-06-28 08:23 | P.PN_ITS ---
Exam Vital Signs (past 8 hours): - 06/28/22 01:28 06/28/22 05:11 Pulse Oximetry 91 Oxygen Delivery Method Room Air CPAP Fraction of Inspired Oxygen 24 SaO2/FiO2 Ratio 408 Oxygen Delivery Method CPAP Oxygen Flow Rate 0 Narrative Exam Narrative: GEN:? Pleasant middle-aged female, Alert and oriented x 3, NAD HEENT:NC, Face symmetric CHEST: Respiratory excursions symmetric, CTAB CV: RRR, no M/R/G ABD: Soft, NT/ND, BT present in all 4 quadrants, body habitus limits exam EXTR: warm, well perfused, no C/C/E SKIN: warm and dry, no rash NEURO: Alert and oriented x 3, somewhat dysarthric with stuttering speech, but improvement overall Objective Labs Result Diagrams: 06/27/22 06:45 06/27/22 06:45 Labs: Laboratory Results - last 24 hr 06/27/22 06/28/22 06:45 06:11 Sodium 138 Potassium 4.3 Chloride 109 H Carbon Dioxide 24 BUN 16 Creatinine 0.93 Estimated GFR > 60 BUN/Creatinine Ratio 17.2 Glucose 96 Calcium 9.1 Magnesium 1.7 1.4 L [facility] Medical History Acute kidney injury (~12/2018) Adrenal mass Cardiomegaly Depression with anxiety Easy bruisability Enteritis History of concussion History of recurrent TIAs History of stroke Hyperlipidemia associated with type 2 diabetes mellitus Hypothyroid Migraine Morbid obesity with BMI of 45.0-49.9, adult Neuropathy ABIOLA on CPAP Osteopenia Polyneuropathy Radiculopathy Type 2 diabetes mellitus Vitamin D deficiency Surgical History History of 3 sections History of lumbar spinal fusion (06/27/17) History of lumbar spinal fusion (11/26/19) History of ventral hernia repair Hx of umbilical hernia repair S/P cholecystectomy S/P trigger finger release Family History Mother Heart disease Father Heart disease Grandfather Diabetes mellitus Other Family history non-contributory Social History marital status: unknown household members: none Smoking Status: Never smoker alcohol intake: never substance use type: does not use Assessment & Plan Assessment & Plan narrative: 1. Hemiplegic migraine Given prior history of stroke, there was initial concern about her having had an acute stroke.? Symptoms began on hospital day 1. Code stroke was called but tPA was not given.? She did receive sumatriptan on June 25 with mild improvement.? No significant improvement with IV Depakote yesterday. She is having good results with IV Dilaudid will continue as needed. 2. Intractable nausea vomiting, diarrhea, abd pain (rt lower quad), acute, present on admission [place] likely to have represented ileus.? This has resolved. 3. SHARON, pre renal, secondary to volume depletion from vomiting and diarrhea, acute, with hypomagnesia, acute,? present on admission Creatinine has normalized and is back down to 0.92 from a peak of 2.25. SHARON has resolved. ? 4. Hypomagnesemia Magnesium has been low since admission.? She did receive repletion with brief improvement.? She received IV magnesium replacement yesterday and today her magnesium is up to 1.7 5. Anemia, acute, present on admission Patient has mild anemia with a hemoglobin of 11.4 yesterday and 11.3 today, down from baseline of around 12.6.? No evidence of active bleeding.? Might simply be secondary to blood draws. 6. Hx of CVA with history of multiple old CVA and residual right sided weakness, chronic, present on admission Continue working with therapies.? Continue Plavix. 7. Essential hypertension, acute on chronic, present on admission Blood pressures are currently mild to moderately hypertensive. Continue losartan, prazosin, and verapamil. 8. COPD, chronic, present on admission No evidence of exacerbation.? Continue Spiriva.? Continue nebulizers as needed. 9. Depression, chronic, present on admission Continue bupropion. 7. Qwc-hmqycar-mrvmvalby type 2 diabetes, chronic, present on admission Holding metformin.? Continue controlled carb diet.? BGs well-controlled. 8. ABIOLA on CPAP, chronic, present on admission On CPAP at home. 9. Class 3 obesity BMI is 46.9.? Would greatly benefit from weight reduction.? 10. Depression, chronic, present on admission Continue sertraline 11. Respiratory acidosis Resolved.? Was felt likely to be secondary to her acute onset of paralysis. ? Code Status DNR Surrogate decision maker: Gabbie Roberson, daughter Prophylaxis: On Lovenox Disposition: nursing home facility placement pending. She prefer [facility] but due to di fficulty tolerating COVID vaccination and hospitalization after her initial COVID vaccine, [facility] is trying to determine whether they can accept her without requiring isolation precautions. Lisandra Pacheco referral was made today as well. Time Spent With Patient Critical Care time: I spent a total of [] minutes of critical care time on this patient's care today; this time is exclusive of procedural time. Quality VTE Deep Vein Thrombosis/Pulmonary Embolism Present on Admission: No
--- NOTE | 2022-06-28 08:31 | PC.NURSE ---
Addendum entered by Kaya Cunningham R.N. 06/28/22 11:50: Patient is being discharged at 1230 to [facility]. She has a 4g magnesium iv hanging and is tolerating well. This will be stopped when she leaves. Original Note: Assess- Patient is alert and oriented x4, she is sitting up in her chair and eating breakfast. Given 975mg of tylenol for complaints of headache. She is comfortable at this time.
[2022-06-28] MEDS: MAGNESIUM SULFATE 4 GM/100 ML PIGGYBACK IV (11:19)
[2022-06-28] MEDS: HYDROMORPHONE 2 MG TABLET PO (11:19)
--- NOTE | 2022-06-28 11:25 | PT.IPTN ---
Current Diagnoses Anemia, unspecified (06/23/22) Type 2 diabetes mellitus without complications (06/23/22) Morbid (severe) obesity due to excess calories (06/23/22) Hypomagnesemia (06/23/22) Depression, unspecified (06/23/22) Hemiplegic migraine, not intractable, without status migrainosus (06/23/22) Obstructive sleep apnea (adult) (pediatric) (06/23/22) Essential (primary) hypertension (06/23/22) Hemiplegia and hemiparesis following cerebral infarction affecting right dominant side (06/23/22) Chronic obstructive pulmonary disease, unspecified (06/23/22) Acute respiratory failure with hypercapnia (06/23/22) Ileus, unspecified (06/23/22) Acute kidney failure, unspecified (06/23/22) Contact with and (suspected) exposure to COVID-19 (06/23/22) Do not resuscitate (06/23/22) Body mass index [BMI] 45.0-49.9, adult (06/23/22) retirement (current) use of oral hypoglycemic drugs (06/23/22) Physical Therapy Treatment Note M2 PT-IP Current Condition Start: 06/25/22 12:03 Freq: NEEDED Status: Discharge Protocol: Document 06/28/22 09:30 SP (Rec: 07/02/22 17:24 SP [id number]) Physical Therapy Current Condition Current Condition Evaluation Date 06/25/22 Treatment Diagnosis acute kidney injury; difficulty in walking Onset Date 06/23/22 M3 PT-IP Subjective Start: 06/25/22 12:03 Freq: NEEDED Status: Discharge Protocol: Document 06/28/22 09:30 SP (Rec: 07/02/22 17:24 SP [id number]) Subjective Physical Therapy Visit Type Type Treatment Note Visit Start Time 09:30 Visit Stop Time 11:25 Total Visit Minutes 45 Notes split treatment (0930-10, 1110 -1125) due to arrival speech therapist with limited time to work with pt. PSYCHOLOGY TEACHER needing to assess bed mobility for update assist required. Pt welcoming to come back to complete tx. Number of PSYCHOLOGY TEACHER Visits 1 Physical Therapy Visit Comments Patient Comments agreeable to do PT Therapy Pain Assessment Pain Present Pain Present Denied Pain M4 PT-IP Mobility and Gait Start: 09/30/22 12:03 Freq: NEEDED Status: Discharge Protocol: Document 06/28/22 09:30 SP (Rec: 07/02/22 17:24 SP [id number]) PT-Bed Mobility Assessment Rolling Type of Rolling Log Rolling,Bilateral Level of Assist Standby Assistance Supine to Sit Supine to Sit Standby Assistance,Bedrails Sit to Supine Sit to Supine Contact Guard Assistance, Bedrails Scooting Scooting to Edge of Bed Standby Assistance PT-Transfer Assessment Sit to and From Stand Sit to and from Stand Standby Assistance,Contact Guard Assistance,Minimal Assistance,1 Person Assistance ,Use of Upper Extremities Equipment Transfer Assistive Device Gait Belt,Front Wheeled Walker Orthotic/Prosthetic Devices or Brace: No Transfers Transfer Destination Bed,Chair,Toilet Transfer Technique pt ambulated with FWW Transfer Ability Level of Assist Standby Assistance,Contact Guard Assistance,Use of Upper Extremities Comments Mobility Comments Pt was sitting up in chair when arrived. Requested to use bathroom. Complete scoot EO chair, sit>Stand Min A (5%A) initially cued nose over toes hip hinge. Gait to bathroom using fWW CGA- SBA 10 ft, stable during pivot, cues back up fully to toilet. Able to complete brief mgt self 1 UE and use grab bar support stand >sit SBA. Complete self pericare after voided in sitting. Sit>stand SBA w/ grab bar use and grief mgt. Gait to sink w/ FWW SBA 15 ft, not need UE support wash hands, returned to chair SBA. Speech therapist arrived and requested if PSYCHOLOGY TEACHER can come back due to limited time to see. PSYCHOLOGY TEACHER provided call light and all needs in reach with LEs elevated. PSYCHOLOGY TEACHER returned, pt in chair. Pt completed STS gait to bed 3 ft w/FWW SBA, stand<> sit<>Supine CGA for coming to sit cued for UE positioning to allow self righting cue LR technique to allow decrease tension over abdominal region for comfort improved demo. Pt requested return to chair, SBA w/ FWW. Pt is ok to return to Gait Assessment Gait Gait Assistance Required: Standby Assistance,Contact Guard Assist Distance (Feet) 30 Able to Maintain Weight Bearing Status Yes During Gait Assistive Devices Assistive Device Gait Belt,Front Wheeled Walker Orthotic/Prosthetic Devices or Brace: No Gait Deviations General Gait Pattern Decreased Stride Length, Decreased Feet Clearance,Step- to Gait Factors Limiting Gait Function Factors Limiting Gait Function Decreased Activity Tolerance, Poor Balance,Poor Safety Awareness Comments Gait Comments see mobility comments. Stair Climbing Assessment Comments Stair Climbing Comments no stairs needed to assess PT-Balance Assessment Sitting Balance and Reactions Static Sitting Balance Ability Normal Dynamic Sitting Balance Ability Good Standing Balance and Reactions Static Standing Balance Ability Good Dynamic Standing Balance Ability Good Device Used FWW M5 PT-IP Objective Assessments Start: 06/25/22 12:03 Freq: NEEDED Status: Discharge Protocol: Document 06/25/22 09:05 AB (Rec: 06/25/22 12:17 AB [id number]) Orientation Orientation/Cognition Level of Alertness Confusional State Orientation Name Safety Awareness Decreased Safety Awareness Memory Description Short Term Impaired Comments having difficulty getting words out when talking Strength Lower Extremity Strength Assessment Bilaterally Impaired Hip 3-/5 Knee 3-/5 Muscle Tone Muscle Tone WNL Yes M6 PT-IP Treatment Start: 06/25/22 12:03 Freq: NEEDED Status: Discharge Protocol: Document 06/28/22 09:30 SP (Rec: 07/02/22 17:24 SP [id number]) Physical Therapy Treatment Education Education Provided Safety M7 PT-IP Assessment and Plan Start: 06/25/22 12:03 Freq: NEEDED Status: Discharge Protocol: Document 06/28/22 09:30 SP (Rec: 07/02/22 17:24 SP [id number]) PT Summary Assessment and Plan Potential Rehabilitation Potential Good Status of Condition at Evaluation Evolving Summary Impairments Pain,ROM,Strength,Balance, Coordination,Sensation,Tone, Cognition,Bed Mobility, Transfers,Gait,Activity Tolerance Progress Towards Goals Progressing Toward Goals,Slow Progress due to Activity Tolerance Assessment Summary Pt requiring extra time to mobilize, Min A initially STS from chair then CG- SBA during toilet and bed transfers using FWW, gait CGA intially then decreased SBA using FWW. Bed mobility CGA with cued for LR technique decrease abdominal pain. Goals Bed Mobility Goal Minimal Assistance Transfer Goal Minimal Assistance,Front Wheeled Walker Gait Goal Minimal Assistance,Front Wheel Walker Gait Distance 50 Other Goals improve bed mobility, transfers using 4WW SBA improve ambulation using 4WW ~ 150 ft SBA Days to Meet Goals 10 Frequency of Treatment Frequency Of Treatment Once a Day Treatment Plan Physical Therapy Treatment Plan Bed Mobility Training,Transfer Training,Gait Training, Therapeutic Exercise,Balance Retraining,Discharge Planning, Hot or Cold Pack,Neuromuscular Re-ed,Coordination Retraining Other Recommendations and Next Treatment Increase distance, standing Focus balance activities for safety I living alone. Precautions Lumbar Precautions Log Roll,No Twisting,Limit Bending,Lifting Restriction of 10 lbs,Gait Belt above Incisional Area Other Precautions fall risk, R side weakness Recommendations To Nursing Amount of Assist Needed Standby Assistance,1 Person Assist Discharge Recommendations PT Discharge Recommendations Home with Assistance,Home with 24/7 Assist Available,Home Health,SNF Rehab,Home vs SNF Transportation Needs at Discharge Private Vehicle,Wheelchair/ Cabulance
--- NOTE | 2022-06-28 11:25 | PT.IPTN ---
Current Diagnoses Anemia, unspecified (06/23/22) Type 2 diabetes mellitus without complications (06/23/22) Morbid (severe) obesity due to excess calories (06/23/22) Hypomagnesemia (06/23/22) Depression, unspecified (06/23/22) Hemiplegic migraine, not intractable, without status migrainosus (06/23/22) Obstructive sleep apnea (adult) (pediatric) (06/23/22) Essential (primary) hypertension (06/23/22) Hemiplegia and hemiparesis following cerebral infarction affecting right dominant side (06/23/22) Chronic obstructive pulmonary disease, unspecified (06/23/22) Acute respiratory failure with hypercapnia (06/23/22) Ileus, unspecified (06/23/22) Acute kidney failure, unspecified (06/23/22) Contact with and (suspected) exposure to COVID-19 (06/23/22) Do not resuscitate (06/23/22) Body mass index [BMI] 45.0-49.9, adult (06/23/22) long-term (current) use of oral hypoglycemic drugs (06/23/22) Physical Therapy Treatment Note M2 PT-IP Current Condition Start: 06/25/22 12:03 Freq: NEEDED Status: Discharge Protocol: Document 07/02/22 09:30 SP (Rec: 07/02/22 17:24 SP [id number]) Physical Therapy Current Condition Current Condition Evaluation Date 06/25/22 Treatment Diagnosis acute kidney injury; difficulty in walking Onset Date 06/23/22 M3 PT-IP Subjective Start: 06/25/22 12:03 Freq: NEEDED Status: Discharge Protocol: Document 07/02/22 09:30 SP (Rec: 07/02/22 17:24 SP [id number]) Subjective Physical Therapy Visit Type Type Treatment Note Visit Start Time 11:10 Visit Stop Time 11:25 Total Visit Minutes 45 Notes split (5530-10, [id number]) tx due to arrival speech therapist with limited time to work with pt. RISK INVESTIGATOR needing to assess bed mobility for update assist required. Number of RISK INVESTIGATOR Visits 1 Physical Therapy Visit Comments Patient Comments agreeable to do PT Therapy Pain Assessment Pain Present Pain Present Denied Pain M4 PT-IP Mobility and Gait Start: 06/25/22 12:03 Freq: NEEDED Status: Discharge Protocol: Document 07/02/22 09:30 SP (Rec: 07/02/22 17:24 SP [id number]) PT-Bed Mobility Assessment Rolling Type of Rolling Log Rolling,Bilateral Level of Assist Standby Assistance Supine to Sit Supine to Sit Standby Assistance,Bedrails Sit to Supine Sit to Supine Contact Guard Assistance, Bedrails Scooting Scooting to Edge of Bed Standby Assistance PT-Transfer Assessment Sit to and From Stand Sit to and from Stand Standby Assistance,Contact Guard Assistance,Minimal Assistance,1 Person Assistance ,Use of Upper Extremities Equipment Transfer Assistive Device Gait Belt,Front Wheeled Walker Orthotic/Prosthetic Devices or Brace: No Transfers Transfer Destination Bed,Chair,Toilet Transfer Technique pt ambulated with FWW Transfer Ability Level of Assist Standby Assistance,Contact Guard Assistance,Use of Upper Extremities Comments Mobility Comments Pt was sitting up in chair when arrived. Requested to use bathroom. Complete scoot EO chair, sit>Stand Min A (5%A) initially cued nose over toes hip hinge. Gait to bathroom using fWW CGA- SBA 10 ft, stable during pivot, cues back up fully to toilet. Able to complete brief mgt self 1 UE and use grab bar support stand >sit SBA. Complete self pericare after voided in sitting. Sit>stand SBA w/ grab bar use and grief mgt. Gait to sink w/ FWW SBA 15 ft, not need UE support wash hands, returned to chair SBA. Speech therapist arrived and requested if RISK INVESTIGATOR can come back due to limited time to see. RISK INVESTIGATOR provided call light and all needs in reach with LEs elevated. RISK INVESTIGATOR returned, pt in chair. Pt completed STS gait to bed 3 ft w/FWW SBA, stand<> sit<>Supine CGA for coming to sit cued for UE positioning to allow self righting cue LR technique to allow decrease tension over abdominal region for comfort improved demo. Pt requested return to chair, SBA w/ FWW. Pt is ok to return to Gait Assessment Gait Gait Assistance Required: Standby Assistance,Contact Guard Assist Distance (Feet) 30 Able to Maintain Weight Bearing Status Yes During Gait Assistive Devices Assistive Device Gait Belt,Front Wheeled Walker Orthotic/Prosthetic Devices or Brace: No Gait Deviations General Gait Pattern Decreased Stride Length, Decreased Feet Clearance,Step- to Gait Factors Limiting Gait Function Factors Limiting Gait Function Decreased Activity Tolerance, Poor Balance,Poor Safety Awareness Comments Gait Comments see mobility comments. Stair Climbing Assessment Comments Stair Climbing Comments no stairs needed to assess PT-Balance Assessment Sitting Balance and Reactions Static Sitting Balance Ability Normal Dynamic Sitting Balance Ability Good Standing Balance and Reactions Static Standing Balance Ability Good Dynamic Standing Balance Ability Good Device Used FWW M5 PT-IP Objective Assessments Start: 06/25/22 12:03 Freq: NEEDED Status: Discharge Protocol: Document 06/25/22 09:05 AB (Rec: 06/25/22 12:17 AB [id number]) Orientation Orientation/Cognition Level of Alertness Confusional State Orientation Name Safety Awareness Decreased Safety Awareness Memory Description Short Term Impaired Comments having difficulty getting words out when talking Strength Lower Extremity Strength Assessment Bilaterally Impaired Hip 3-/5 Knee 3-/5 Muscle Tone Muscle Tone WNL Yes M6 PT-IP Treatment Start: 06/25/22 12:03 Freq: NEEDED Status: Discharge Protocol: Document 07/02/22 09:30 SP (Rec: 07/02/22 17:24 SP [id number]) Physical Therapy Treatment Education Education Provided Safety M7 PT-IP Assessment and Plan Start: 06/25/22 12:03 Freq: NEEDED Status: Discharge Protocol: Document 07/02/22 09:30 SP (Rec: 07/02/22 17:24 SP [id number]) PT Summary Assessment and Plan Potential Rehabilitation Potential Good Status of Condition at Evaluation Evolving Summary Impairments Pain,ROM,Strength,Balance, Coordination,Sensation,Tone, Cognition,Bed Mobility, Transfers,Gait,Activity Tolerance Progress Towards Goals Progressing Toward Goals,Slow Progress due to Activity Tolerance Assessment Summary Pt requiring extra time to mobilize, Min A initially STS from chair then CG- SBA during toilet and bed transfers using FWW, gait CGA intially then decreased SBA using FWW. Bed mobility CGA with cued for LR technique decrease abdominal pain. Recommending SNF vs 18/04 available with HHPT for strength safety functional mobility to ability live alone again. Goals Bed Mobility Goal Minimal Assistance Transfer Goal Minimal Assistance,Front Wheeled Walker Gait Goal Minimal Assistance,Front Wheel Walker Gait Distance 50 Other Goals improve bed mobility, transfers using 4WW SBA improve ambulation using 4WW ~ 150 ft SBA Days to Meet Goals 10 Frequency of Treatment Frequency Of Treatment Once a Day Treatment Plan Physical Therapy Treatment Plan Bed Mobility Training,Transfer Training,Gait Training, Therapeutic Exercise,Balance Retraining,Discharge Planning, Hot or Cold Pack,Neuromuscular Re-ed,Coordination Retraining Other Recommendations and Next Treatment Increase distance, standing Focus balance activities for safety I living alone.Gait 4WW. Precautions Lumbar Precautions Log Roll,No Twisting,Limit Bending,Lifting Restriction of 10 lbs,Gait Belt above Incisional Area Other Precautions fall risk, R side weakness Recommendations To Nursing Amount of Assist Needed Standby Assistance,1 Person Assist Discharge Recommendations PT Discharge Recommendations Home with Assistance,Home with 24/7 Assist Available,Home Health,SNF Rehab,Home vs SNF Transportation Needs at Discharge Private Vehicle,Wheelchair/ Cabulance
--- NOTE | 2022-06-28 11:27 | P.DS_ITS ---
History of Present Illness History of Present Illness Date Patient Seen: 06/28/22 Time Patient Seen: 11:31 Chief complaint: weak/dizzy/diarrhea Narrative: Ms. 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 She feels fatigued, dizzy, mildly SOB, and weak, with abdominal pain and cramping in the right lower quadrant, currently 5/10.? Patient denies fever, chills, chest pain, dysuria, syncope, hematochezia, melena, cough, sputum production, wheezing, recent URI, illness, injury or trauma.? Patient notes that she is been scheduled at [facility] on July 05 for a colonoscopy an EGD. Upon admit exam patient is sitting on the side of the bed, calm relaxed and in no distress at this time.? Vitals upon admit temp 98?, BP 160/71, HR 92, R 24, O2 saturation 94% on room air.? Patient does present today was some mild anemia H&H 11.7/35 RBC 3.75, no anemia noted on previous hospitalization.? Patient's renal function was also normal on 10/29/2021 presents today in SHARON-initial chemistries in the ED chloride 108, CO2 22, BUN 32, creatinine 2.25, GFR 23 patient then received 2 L of fluid repeat labs chloride 112, BUN 30, CO2 21, creatinine 1.94, GFR 27.? BUN was unremarkable at 374, lactate negative.? UA and abdominal imaging without contrast are pending.? Patient admitted for intractable nausea, vomiting, diarrhea, resulting in SHARON. Discharge Providers Provider Date of admission: 06/23/22 03:51 Discharge Date: 06/28/22 Primary care physician: Andrea Coyne MD Consults: 06/23/22 05:11 Consult to Dietitian, Adult Routine Comment: Reason For Exam: Morbid obesity BMI 45 06/25/22 07:33 Consult to Occupational Therapy Evaluate & Treat Comment: Physician Instructions: Evaluate and treat Consult to Physical Therapy Evaluate & Treat Comment: Physician Instructions: Evaluate and Treat 06/25/22 10:52 Consult to Speech Therapy Evaluate & Treat Comment: Physician Instructions: Evaluate and treat Discharge provider: Juliocesar Dawn DO Summary Hospital Course Discharge Diagnosis: 1. Hemiplegic migraine Given prior history of stroke, there was initial concern about her having had an acute stroke.? Symptoms began on hospital day 1. Code stroke was called but tPA was not given.? She did receive sumatriptan on June 25 with mild improvement.? No significant improvement with IV Depakote yesterday.? She is having good results with IV Dilaudid. Will discharge with po dilaudid PRN until she can f/u with her neurologist Dr. Bay for ongoing migraine management. 2. Intractable nausea vomiting, diarrhea, abd pain (rt lower quad), acute, present on admission Nogal likely to have represented ileus.? This has resolved. 3. SHARON, pre renal, secondary to volume depletion from vomiting and diarrhea, acute, with hypomagnesia, acute,? present on admission Creatinine has normalized and is back down to 0.92 from a peak of 2.25.? SHARON has resolved. ? 4. Hypomagnesemia Magnesium has been low since admission.? She did receive repletion with brief improvement.? Recieved IV mag and discharged on po mag daily. 5. Anemia, acute, present on admission Patient has mild anemia with a hemoglobin of 11.4 yesterday and 11.3 today, down from baseline of around 12.6.? No evidence of active bleeding.? Might simply be secondary to blood draws. 6. Hx of CVA with history of multiple old CVA and residual right sided weakness, chronic, present on admission Continue working with therapies.? Continue Plavix. 7. Essential hypertension, acute on chronic, present on admission Blood pressures are currently mild to moderately hypertensive.? Continue losartan, prazosin, and verapamil. 8. COPD, chronic, present on admission No evidence of exacerbation.? Continue Spiriva.? Continue nebulizers as needed. 9. Depression, chronic, present on admission Continue bupropion. 7. Vlj-utihcrz-qrwzbgntr type 2 diabetes, chronic, present on admission Holding metformin.? Continue controlled carb diet.? BGs well-controlled. 8. ABIOLA on CPAP, chronic, present on admission On CPAP at home. 9. Class 3 obesity BMI is 46.9.? Would greatly benefit from weight reduction.? 10. Depression, chronic, present on admission Continue sertraline 11. Respiratory acidosis Resolved.? Was felt likely to be secondary to her acute onset of paralysis. 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 Did not respond to IV depakote but IV dilaudid helped. Her home imitrex also did not help. Patient see's Dr. Bay neurologist for botox due to chronic migraines whom she will f/u with soon. I messaged him and he said to give IV magnesium. Patient received IV mag and discharged home on po mag given her levels were low at 1.4. Her SHARON resolved. Time Spent with Patient Time spent: Greater than 30 minutes Exam Vital Signs (past 8 hours): - 06/28/22 05:11 06/28/22 07:00 06/28/22 09:47 Temperature 97.3 F L Pulse Rate 93 H Respiratory Rate 19 Blood Pressure 169/65 H Pulse Oximetry 96 Oxygen Delivery Method CPAP Room Air Oxygen Flow Rate 0 Fraction of Inspired Oxygen 24 SaO2/FiO2 Ratio 408 Oxygen Delivery Method Room Air Oxygen Flow Rate 0 Narrative Exam Narrative: GEN:? Pleasant middle-aged female, Alert and oriented x 3, NAD HEENT:NC, Face symmetric CHEST: Respiratory excursions symmetric, CTAB CV: RRR, no M/R/G ABD: Soft, NT/ND, BT present in all 4 quadrants, body habitus limits exam EXTR: warm, well perfused, no C/C/E SKIN: warm and dry, no rash NEURO: Alert and oriented x 3, somewhat dysarthric with stuttering speech, but improvement overall Objective Labs Result Diagrams: 06/27/22 06:45 06/27/22 06:45 Labs: Laboratory Results - last 24 hr 06/28/22 06:11 Magnesium 1.4 L PFSH Medical History Acute kidney injury (~12/2018) Adrenal mass Cardiomegaly Depression with anxiety Easy bruisability Enteritis History of concussion History of recurrent TIAs History of stroke Hyperlipidemia associated with type 2 diabetes mellitus Hypothyroid Migraine Morbid obesity with BMI of 45.0-49.9, adult Neuropathy ABIOLA on CPAP Osteopenia Polyneuropathy Radiculopathy Type 2 diabetes mellitus Vitamin D deficiency Surgical History History of 3 sections History of lumbar spinal fusion (06/27/17) History of lumbar spinal fusion (11/26/19) History of ventral hernia repair Hx of umbilical hernia repair S/P cholecystectomy S/P trigger finger release Family History Mother Heart disease Father Heart disease Grandfather Diabetes mellitus Other Family history non-contributory Social History marital status: unknown household members: none Smoking Status: Never smoker alcohol intake: never substance use type: does not use Discharge Plan Discharge Plan Patient Disposition: SNF Transfer to: [facility] Discharge orders & Medications Prescriptions: New hydromorphone 2 mg Tablet 2 mg PO Q4HR PRN (Reason: Pain, Severe (7-10)) Qty: 60 0RF loperamide [Imodium A-D] 2 mg capsule 2 mg PO QID PRN (Reason: loose stool) Qty: 30 0RF magnesium oxide 500 mg tablet 500 mg PO DAILY Qty: 30 0RF Continued prazosin 2 mg capsule 2 mg PO BEDTIME clopidogrel 75 mg Tablet 75 mg PO DAILY Qty: 30 0RF verapamil 80 mg Tablet 80 mg PO TID sumatriptan succinate 6 mg/0.5 mL Pen Injector 6 mg SUBCUT Q8HR PRN (Reason: Headache) losartan 50 mg Tablet 50 mg PO DAILY Rx Instructions: Losartan potassium albuterol sulfate [Ventolin HFA] 90 mcg/actuation Hfa Aerosol Inhaler 2 puff INHALATION Q6H PRN (Reason: Shortness Of Breath) Spiriva Respimat 1.25 mcg/actuation Mist 2 puff INHALATION DAILY metformin 500 mg Tablet 1,000 mg PO BID gabapentin 600 mg tablet 800 mg PO TID PRN (Reason: pain) sertraline 100 mg tablet 100 mg PO DAILY Label Comments: take 1 tablet by mouth once daily for anxiety bupropion HCl 300 mg tablet extended release 24 hr 300 mg PO DAILY Qty: 0 0RF Follow up/Referrals: Andrea Coyne MD [Primary Care Provider] - Discharge Data Primary Care Provider: Andrea Coyne Quality VTE Deep Vein Thrombosis/Pulmonary Embolism Present on Admission: No
--- NOTE | 2022-06-28 11:30 | ST.OP.ACL ---
Visit Care Team Role Provider Type Andrea Coyne MD Primary Care Provider Non-Staff Specialty: Internal Medicine Address: [facility] [address], [place], [address] Email: Eliseo De Leon DO Emergency Provider Physician Specialty: Emergency Medicine Address: [address] [place] [address], [id number] Email: [email or web address] Carlotta Bradley, [facility] Admit Provider Physician Attending Provider Specialty: Hospitalist Internal Medicine Address: [address] [place] [address], [id number] Email: Adult Cognitive Linguistic Evaluation HISTOLOGY TECHNICIAN Adult Cognitive Linguistic Eval Start: 06/25/22 12:51 Freq: Status: Active Protocol: Document 06/28/22 11:04 SIGRID (Rec: 06/28/22 11:28 LNK [id number]) Adult Cognitive Linguistic Evaluation Session Time Visit Start Time 10:00 Visit Stop Time 10:30 Total Visit Minutes 30 Setting Assessment Location Acute Care Visit Type Note Type Re-evaluation Patient Information Patient History Per H&P: Ms. 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 She feels fatigued, dizzy, mildly SOB, and weak, with abdominal pain and cramping in the right lower quadrant, currently 5/ 10.? Patient denies fever, chills, chest pain, dysuria, syncope, hematochezia, melena, cough, sputum production, wheezing, recent URI, illness, injury or trauma. Patient notes that she is been scheduled at [facility] on July 05 for a colonoscopy an EGD . On the morning of 06/24/22, pt had an abrupt change in her altered mental status and code stroke was called. CT and MRI did not show any signs of new acute abnormalities. Headache still present, which records indicated started on 06/23/22. Previous Therapy History of Therapy In 2010 pt had a CVA that affected her right side. Pt continues to have weakness on her right side. She continues to have migraines that arose after her CVA, Pt sees Dr. Bay, Neurologist, in [place]. Subjective Patient Report Pt was seated upright in chair when HISTOLOGY TECHNICIAN arrived. She spoke with halted/stuttered speech. Pt was alert and oriented x3. Assessment Oral Motor Examination Completed No Informal Assessment Receptive Language Normal Yes Expressive Language Normal Yes: Halting/ stuttered speech pattern Cognition Normal Yes Findings/Results Findings Pt was able to produce sentences and express herself well, albeit with stuttered speech. Pt reported that this speech pattern happens every time she has a migraine headache. According to the pt , Dr. Bay has identified this as Post-Stroke Migraine Pt reported that following treatment for her migraine (i.e., dilaudid), her speech typically clears in 6- 8 hours. This is a recurring speech pattern related to her migraines, per the pt. As pt' s stuttering is neurologically related to her migraine headaches, ST is not indicated . As pt stated, as her migraine clears, her speech returns to normal. Will discharge pt at this time. Plan of Care Speech-Language Treatment No Patient/Caregiver Education Described results of evaluation,Patient expressed understanding of evaluation, Patient expressed agreement with goals and treatment plans Discharge Recommendations Home,[facility] facility, Home with Home Health
[2022-06-28 12:25] LABS: COVID19 -Nasal RAPID Negative (Negative)
== END 2022-06-28 12:51 | DRG 388 ==
LOC: ED 21:43 → AC 06-23 04:13
PROVIDERS: Family Medicine; Internal Medicine; Student in an Organized Health Care Education/Training Program; Admitting Provider Nurse Practitioner Family; Emergency Provider Emergency Medicine; PCP Internal Medicine; Visit Provider Nurse Practitioner Family
DX: K56.7 Ileus, unspecified (principal); J96.02 Acute respiratory failure with hypercapnia; I69.351 Hemiplegia and hemiparesis following cerebral infarction affecting right dominant side; Z68.42 Body mass index [BMI] 45.0-49.9, adult; N17.9 Acute kidney failure, unspecified; G43.409 Hemiplegic migraine, not intractable, without status migrainosus; E66.01 Morbid (severe) obesity due to excess calories; E83.42 Hypomagnesemia; J44.9 Chronic obstructive pulmonary disease, unspecified; F32.A Depression, unspecified; E11.9 Type 2 diabetes mellitus without complications; I10 Essential (primary) hypertension; G47.33 Obstructive sleep apnea (adult) (pediatric); D64.9 Anemia, unspecified; Z79.84 Long term (current) use of oral hypoglycemic drugs; Z20.822 Contact with and (suspected) exposure to COVID-19; Z66 Do not resuscitate
CPT/HCPCS: 36415; 36600; 70450; 70496; 70498; 70551; 71045; 74176; 76770; 80048; 80053; 82550; 82570; 82805; 82962; 83036; 83605; 83735; 83880; 84145; 84300; 84484; 85025; 85610; 85730; 87040; 87635; 92507; 92523; 93005; 94640; 94660; 94760; 96374; 96375; 97116; 97162; 97166; 97530; 99284; C9803; J0360; J1170; J1650; J1815; J1885; J2405; J2765; J3030; J3475; Q9967

== ENCOUNTER 2022-10-11 12:41 | Emergency (ER) | payer MEDICARE, MEDICAID, SELFPAY ==
[2022-06-23 03:57] VITALS: BMI 46.9
[2022-10-11] VITALS (18 sets, daily range): BP systolic 116–166; BP diastolic 58–94; PULSE 80–112; RESP 18; TEMP 36.7; O2SAT 90–99; BMI 45.4
--- NOTE | 2022-10-11 13:02 | DI.CT.S_ITS ---
PROCEDURE: CT ABDOMEN PELVIS W CON INDICATIONS: Abdomen pain TECHNIQUE: After the administration of intravenous contrast, axial sections acquired from the lung bases to the pubic symphysis. Coronal and sagittal reformats were performed. For radiation dose reduction, the following was used: automated exposure control, adjustment of mA and/or kV according to patient size. COMPARISON: [facility], CT, CT ABDOMEN PELVIS W CON, 10/29/2021, 13:48. FINDINGS: Image quality: Excellent. Lung bases: Pulmonary scar is present at the left lung base unchanged from the prior study. Heart: No significant findings. ABDOMEN: Liver: Unremarkable. Gallbladder: Surgically absent. Biliary ducts: Unremarkable. Pancreas: Unremarkable. Spleen: Unremarkable. Adrenal Glands: Fatty mass is redemonstrated in the right adrenal gland. Kidneys and Ureters: A cortical cyst is present within the upper pole of the left kidney. The right kidney is located within the pelvis. No hydronephrosis. Stomach and Bowel: Stomach, small bowel loops, and colon are unremarkable. There are scattered sigmoid diverticula. No evidence for diverticulitis. The appendix is not visualized; however there is no discrete right lower quadrant fluid or fat stranding to suggest acute appendicitis. Peritoneum: No abnormal intraperitoneal fluid. No free air. Ventral Wall: There is a large ventral hernia. The majority of the small bowel and colon is located within this ventral hernia. No obstruction, strangulation, or findings to suggest ischemia. Abdominal Nodes: No retroperitoneal or mesenteric adenopathy by size criteria. Vessels: Aorta and inferior vena cava are normal in size. PELVIS: Pelvic Organs: Unremarkable. Bladder: Unremarkable. Pelvic Nodes: No enlarged lymph nodes. Miscellaneous: No hernias are seen. Intermediate density subcutaneous fluid collection is redemonstrated along the posterior aspect of the lumbar spine, unchanged from the study dated October 29, 2021. Bones: Unremarkable. Posterior fixation hardware is intact. IMPRESSION: 1. Massive, wide necked ventral hernia with the majority of the bowel herniated within. No findings to suggest obstruction, strangulation, or ischemia. 2. No acute intra-abdominal findings. The appendix is not visualized; however there are no ancillary findings to suggest acute appendicitis. 3. Stable intermediate posterior paraspinous fluid collection suggesting postoperative seroma. Dictated by: Sayda Blount M.D. on 10/11/2022 at 14:44 Approved by: Sayda Blount M.D. on 10/11/2022 at 15:21
--- NOTE | 2022-10-11 13:10 | ED.ABDPAIN ---
HPI - Abdominal Pain General Chief Complaint: Abdominal Pain Stated Complaint: abd pain. Time Seen by Provider: 10/11/22 12:55 Source: patient and EMS Mode of arrival: EMS History of Present Illness HPI narrative: 71-year-old female with past medical history COPD, diabetes, depression, sleep apnea, stroke, hypertension, hyperlipidemia, ventral hernia, diverticulitis presents to the ED with 4 days of left-sided abdominal pain. Patient states that her symptoms started with dry heaves 6 days ago, followed by left-sided abdominal pain starting 4 days ago. Patient states that she did not actually vomit. Patient denies diarrhea, constipation. Patient's last bowel movement was 4 days ago. Patient states it is it is common for her to have a bowel movement every 3 days. Patient denies hematochezia, melena. Patient denies fever, chills, URI symptoms, chest pain, shortness of breath, dysuria, lightheadedness, dizziness, syncope. Patient states she had a colonoscopy and endoscopy done about 2 months ago, where they found acid reflux and diverticulitis. Patient states she was treated with antibiotics for the diverticulitis. Patient also has a history of a large ventral hernia, that according to the [facility] is inoperable currently due to the high risks of mortality and morbidity associated with a surgical intervention at this point. Related Data Home Medications Medication Instructions Recorded Confirmed metformin 500 mg tablet 1,000 mg PO BID 02/02/18 10/03/22 gabapentin 600 mg tablet 800 mg PO TID PRN pain 04/19/18 10/03/22 prazosin 2 mg capsule 2 mg PO BEDTIME 09/11/20 10/03/22 sertraline 100 mg tablet 100 mg PO DAILY 09/24/21 10/03/22 albuterol sulfate 90 mcg/actuation 2 puff inhalation Q6H PRN 10/26/21 10/03/22 aerosol inhaler (Ventolin HFA) Shortness Of Breath losartan 50 mg tablet 50 mg PO DAILY 10/26/21 10/03/22 sumatriptan succinate 6 mg/0.5 mL 6 mg SUBCUT Q8HR PRN Headache 10/26/21 10/03/22 subcutaneous pen injector tiotropium bromide 1.25 2 puff inhalation DAILY 10/26/21 10/03/22 mcg/actuation mist for inhalation (Spiriva Respimat) verapamil 80 mg tablet 80 mg PO TID 10/26/21 10/03/22 Previous Rx's Medication Instructions Recorded clopidogrel 75 mg tablet 75 mg PO DAILY #30 tabs 01/25/20 bupropion HCl 300 mg 24 hr tablet, 300 mg PO DAILY #0 tabs 09/26/21 extended release hydromorphone 2 mg tablet 2 mg PO Q4HR PRN Pain, Severe 06/28/22 (7-10) #60 tabs loperamide 2 mg capsule (Imodium 2 mg PO QID PRN loose stool #30 06/28/22 A-D) caps magnesium oxide 500 mg tablet 500 mg PO DAILY #30 tabs 06/28/22 clobetasol 0.05 % topical ointment 1 applic topical QAM AND QPM #60 09/30/22 grams lidocaine 5 % topical gel See Rx Instructions .Route 10/08/22 .COMPLEX #30 grams Allergies Allergy/AdvReac Type Severity Reaction Status Date / Time vancomycin Allergy Intermediate Flushing & Verified 10/03/22 15:50 rash Review of Systems Review of Systems ROS Unobtainable: All systems reviewed & are unremarkable except as noted in HPI and below Constitutional Constitutional: Denies chills, Denies fatigue, Denies fever(s), Denies frequent falls, Denies lethargy and Denies weakness Eyes Eyes: Denies change in vision, Denies eye discharge, Denies irritation and Denies loss of vision ENT Ears, Nose, Mouth, and Throat: Denies change in voice, Denies dizziness, Denies neck pain, Denies sore throat and Denies throat swelling Cardiovascular Cardiovascular: Denies chest pain, Denies irregular heart rhythm, Denies lightheadedness, Denies palpitations, Denies dyspnea, Denies dyspnea on exertion and Denies orthopnea Respiratory Respiratory: Denies cough, Denies dyspnea, Denies dyspnea on exertion and Denies wheezing Gastrointestinal Gastrointestinal: Reports abdominal pain, Denies change in bowel habits, Denies diarrhea, Reports nausea and Denies vomiting Genitourinary Genitourinary: Denies hematuria, Denies flank pain, Denies urinary incontinence and Denies urinary urgency Musculoskeletal Musculoskeletal: Denies back pain, Denies muscle weakness, Denies neck pain, Denies numbness and Denies tingling Integumentary/Breasts Skin/Breast: Denies pruritus, Denies erythema, Denies rash and Denies wounds Neurologic Neurologic: Denies behavioral changes, Denies confusion, Denies dizziness, Denies frequent falls, Denies loss of vision, Denies numbness, Denies tingling and Denies weakness Psychiatric Psychiatric: Denies anxiety, Denies behavioral changes, Denies confusion, Denies depression, Denies homicidal ideation and Denies suicidal ideation Endocrine Endocrine: Denies fatigue, Denies flushing and Denies palpitations Hematologic/Lymphatic Hematologic/Lymphatic: Denies easy bruising Allergic/Immunologic Allergic/Immunologic: Denies urticaria, Denies throat swelling and Denies wheezing Patient History Medical History Acute kidney injury (~12/2018) Adrenal mass Cardiomegaly Depression with anxiety Easy bruisability Enteritis History of concussion History of recurrent TIAs History of stroke Hyperlipidemia associated with type 2 diabetes mellitus Hypothyroid Migraine Morbid obesity with BMI of 45.0-49.9, adult Neuropathy ABIOLA on CPAP Osteopenia Polyneuropathy Radiculopathy Type 2 diabetes mellitus Vitamin D deficiency Surgical History History of 3 sections History of lumbar spinal fusion (06/27/17) History of lumbar spinal fusion (11/26/19) History of ventral hernia repair Hx of umbilical hernia repair S/P cholecystectomy S/P trigger finger release Family History Mother Heart disease Father Heart disease Grandfather Diabetes mellitus Other Family history non-contributory Social History marital status: unknown household members: none Smoking Status: Never smoker alcohol intake: never substance use type: does not use Smoking Status: Never smoker alcohol intake frequency: 0-2 drinks per day Substance Use Type: does not use and painkillers Exam Narrative Exam Narrative: Const General:?cooperative, healthy appearing and comfortable [facility] Head:?normal to inspection Ears:?hearing grossly normal bilaterally Nose:?external nose normal Face and sinus:?normal facial exam and sinuses nontender Mouth:?oral mucosae appear dry Throat:?posterior oropharynx normal Eyes General:?appearance normal, both eyes and all related structures Neck Neck:?normal visual inspection and no lymphadenopathy noted Resp Effort & Inspection:?normal respiratory effort Auscultation:?clear to auscultation bilaterally Cardio Rate:?regular rate Rhythm:?regular rhythm GI Abdomen is soft, distended, diffusely painful to palpation. Palpable ventral hernia. There is no CVA tenderness. Neuro General:?patient alert, patient awake and patient oriented x3 Initial Vital Signs Initial Vital Signs: Vital Signs Blood Pressure 116/58 L 10/11/22 12:43 Course Orders Ordered: Discontinued Medications Al Hydrox/Mg Hydrox/Simethicone 20 ml/ Lidocaine HCl 15 ml 0 ml PO NOW ONE Stop: 10/11/22 16:01 Last Admin: 10/11/22 16:21 Dose: 35 ml Documented By: AT Famotidine (Famotidine 20 Mg/2 Ml Vial) 20 mg IV NOW DANN Last Admin: 10/11/22 16:19 Dose: 20 mg Documented By: AT Sodium Chloride (Normal Saline 0.9%) 1,000 mls @ 1,000 mls/hr IV BOLUS ONE Stop: 10/11/22 14:39 Last Infusion: 10/11/22 15:00 Dose: 0 mls/hr Documented By: Admin: 10/11/22 13:46 Dose: 1,000 mls/hr Documented By: BIRGIT Sodium Chloride (Normal Saline 0.9%) 1,000 mls @ 1,000 mls/hr IV BOLUS ONE Stop: 10/11/22 16:59 Last Infusion: 10/11/22 17:39 Dose: 0 mls/hr Documented By: Admin: 10/11/22 16:19 Dose: 1,000 mls/hr Documented By: AT Morphine Sulfate (Morphine 2 Mg/Ml Inj) 2 mg IV NOW ONE Stop: 10/11/22 13:06 Last Admin: 10/11/22 13:38 Dose: 2 mg Documented By: BIRGIT Morphine Sulfate (Morphine 4 Mg/Ml Inj) 4 mg IV NOW ONE Stop: 10/11/22 17:54 Last Admin: 10/11/22 18:03 Dose: 4 mg Documented By: AT Vital Signs Vital signs: Vital Signs - 8 hr 10/11/22 12:50 10/11/22 12:43 10/11/22 12:44 Temperature 98.0 F Pulse Rate 92 H 86 Respiratory Rate 18 Blood Pressure 116/58 L 116/58 L Pulse Oximetry 98 97 Oxygen Delivery Method Room Air Room Air 10/11/22 13:00 10/11/22 13:30 10/11/22 13:37 Temperature Pulse Rate 91 H 80 Respiratory Rate Blood Pressure 125/73 Pulse Oximetry 98 98 Oxygen Delivery Method Room Air Room Air 10/11/22 13:37 10/11/22 13:59 10/11/22 13:59 Temperature Pulse Rate 81 95 H Respiratory Rate Blood Pressure 149/68 H Pulse Oximetry 97 93 Oxygen Delivery Method Room Air Room Air 10/11/22 14:00 10/11/22 14:00 10/11/22 14:30 Temperature Pulse Rate 91 H Respiratory Rate Blood Pressure 146/64 H 143/66 H Pulse Oximetry 94 Oxygen Delivery Method Room Air 10/11/22 14:30 10/11/22 15:00 10/11/22 15:00 Temperature Pulse Rate 91 H 94 H Respiratory Rate Blood Pressure 164/83 H Pulse Oximetry 99 95 Oxygen Delivery Method Room Air Room Air 10/11/22 15:30 10/11/22 15:30 10/11/22 16:00 Temperature Pulse Rate 94 H Respiratory Rate Blood Pressure 153/72 H 141/67 H Pulse Oximetry 96 Oxygen Delivery Method 10/11/22 16:00 10/11/22 16:30 10/11/22 16:30 Temperature Pulse Rate 95 H 95 H Respiratory Rate Blood Pressure 149/73 H Pulse Oximetry 95 95 Oxygen Delivery Method 10/11/22 17:00 10/11/22 17:00 10/11/22 17:12 Temperature Pulse Rate 101 H 112 H Respiratory Rate Blood Pressure 133/84 Pulse Oximetry 97 Oxygen Delivery Method Room Air 10/11/22 17:12 10/11/22 17:30 10/11/22 17:30 Temperature Pulse Rate 99 H Respiratory Rate Blood Pressure 160/82 H 166/83 H Pulse Oximetry 96 Oxygen Delivery Method 10/11/22 18:00 10/11/22 18:00 10/11/22 18:30 Temperature Pulse Rate 100 H Respiratory Rate Blood Pressure 163/94 H 164/81 H Pulse Oximetry 90 L Oxygen Delivery Method 10/11/22 18:30 Temperature Pulse Rate 106 H Respiratory Rate Blood Pressure Pulse Oximetry 94 Oxygen Delivery Method MDM - Abdominal Pain Lab Data Result diagrams: 10/11/22 12:47 10/11/22 17:51 Labs: Lab Results 10/11/22 10/11/22 10/11/22 Range/Units 12:47 12:47 12:47 WBC 6.8 (4.5-11.0) X10^3/uL RBC 4.03 (4.0-5.2) X10^6/uL Hgb 12.1 (12.0-16.0) g/dL Hct 37.7 (36-46) % MCV 93.6 (80-100) fL MCH 30.0 (26-34) PG MCHC 32.0 (30-36) % RDW 14.7 (11.6-14.8) % Plt Count 254 (150-400) X10^3/uL Neut % (Auto) 70.5 (50-75) % Lymph % (Auto) 20.4 L (25-40) % [place] % (Auto) 6.8 (3-14) % Eos % (Auto) 1.8 L (2-4) % Baso % (Auto) 0.5 (0-2) % Neut # (Auto) 4800 (6845-7127) /uL Lymph # (Auto) 1400 (2275-8297) /uL [place] # (Auto) 500 (0-900) /uL Eos # (Auto) 100 (0-450) /uL Baso # (Auto) 0 (0-100) /uL PT (10.1-12.7) SECONDS INR (0.9-1.3) APTT (26-36) SECONDS Sodium 137 (137-145) mmol/L Potassium 5.4 H (3.4-5.1) mmol/L Chloride 101 (98-107) mmol/L Carbon Dioxide 23 (22-32) mmol/L BUN 37 H (7-17) mg/dL Creatinine 1.31 H (0.52-1.04) mg/dL Estimated GFR 44 L (>60) mL/min BUN/Creatinine Ratio 28.2 H (6-22) Glucose 101 (80-110) mg/dL Lactate 1.5 (0.7-2.1) mmol/L Calcium 9.3 (8.4-10.2) mg/dL Total Bilirubin 0.4 (0.2-1.3) mg/dL AST 21 (14-36) IU/L ALT 21 (<35) IU/L Alkaline Phosphatase 94 (38-126) U/L Total Protein 7.7 (6.3-8.2) g/dL Lipase 207 (23-300) U/L 10/11/22 10/11/22 Range/Units 12:47 17:51 WBC (4.5-11.0) X10^3/uL RBC (4.0-5.2) X10^6/uL Hgb (12.0-16.0) g/dL Hct (36-46) % MCV (80-100) fL MCH (26-34) PG MCHC (30-36) % RDW (11.6-14.8) % Plt Count (150-400) X10^3/uL Neut % (Auto) (50-75) % Lymph % (Auto) (25-40) % [place] % (Auto) (3-14) % Eos % (Auto) (2-4) % Baso % (Auto) (0-2) % Neut # (Auto) (6892-3767) /uL Lymph # (Auto) (1675-0158) /uL [place] # (Auto) (0-900) /uL Eos # (Auto) (0-450) /uL Baso # (Auto) (0-100) /uL PT 11.8 (10.1-12.7) SECONDS INR 1.0 (0.9-1.3) APTT 34 (26-36) SECONDS Sodium 138 (137-145) mmol/L Potassium 5.1 (3.4-5.1) mmol/L Chloride 105 (98-107) mmol/L Carbon Dioxide 25 (22-32) mmol/L BUN 30 H (7-17) mg/dL Creatinine 1.16 H (0.52-1.04) mg/dL Estimated GFR 51 L (>60) mL/min BUN/Creatinine Ratio 25.9 H (6-22) Glucose 91 (80-110) mg/dL Lactate (0.7-2.1) mmol/L Calcium 8.9 (8.4-10.2) mg/dL Total Bilirubin 0.4 (0.2-1.3) mg/dL AST 23 (14-36) IU/L ALT 20 (<35) IU/L Alkaline Phosphatase 89 (38-126) U/L Total Protein 7.4 (6.3-8.2) g/dL Lipase (23-300) U/L Point of care testing: Urine Dip Bedside Urine Glucose Negative Bedside Urine Bilirubin - Negative Bedside Urine Ketone - Negative Urine Specific [place] 1.015 Bedside Urine Occult Blood - Negative Bedside Urine pH 6.0 Bedside Urine Protein - Negative Bedside Urine Urobilinogen - Negative Bedside Urine Nitrite - Negative Bedside Urine Leukocytes - Negative Esterase MDM Narrative Medical decision making narrative: 71-year-old female with past medical history COPD, diabetes, depression, sleep apnea, stroke, hypertension, hyperlipidemia, ventral hernia, diverticulitis presents to the ED with 4 days of left-sided abdominal pain. Concern for diverticulitis versus bowel obstruction versus strangulated/incarcerated hernia versus acid reflux versus gastritis versus constipation versus UTI versus pyelonephritis versus nephrolithiasis versus other intra-abdominal pathology. Will obtain labs, lipase, lactate, CT abdomen pelvis, UA. Patient was given 2 mg of morphine at [facility], states her pain has improved from a 7/10 to 5/10. Will treat pain with additional 2 mg of morphine. Patient's nausea is well controlled with Zofran that she was given at [facility]. Will reassess. Creatinine elevated to 1.31. Labs otherwise within normal limits. Patient also appears quite dehydrated. 2 L of IV fluids given, which improved creatinine to 1.16. SHARON was likely due to dehydration. CT abdomen pelvis without acute findings. The ventral hernia with the majority of the bowel herniated within appears stable with no signs of obstruction, strangulation or ischemia. Patient was also given Pepcid AC and a GI cocktail for possible acid reflux. Patient's last bowel movement was 4 days ago, which could also likely be the cause of patient's symptoms. Patient counseled on laxatives and bowel regimen with magnesium citrate and MiraLax. ED return precautions were discussed with patient. Patient verbalized understanding. ? Medical records reviewed:??yes ? Exam documented above, pertinent findings include:?ventral hernia ? Independently reviewed EKG as above: Sinus tachycardia, no acute ST-T changes, no axis deviation ? Disposition: see below, along with detailed discharge instructions that have been reviewed with patient as well as indications for ED re-evaluation and additional outpatient follow up Discharge Plan Departure Patient Disposition: Home Clinical Impression: Abdominal pain Instructions: Constipation, DI for Abdominal Pain-Adult Activity Restrictions/Additional Instructions: You were evaluated in the ED today for abdominal pain. Your labs showed a somewhat elevated creatinine, which showed some sluggishness of your kidneys. The rest of your labs were normal. Your CT scan did not show any acute findings, and the ventral hernia remains unchanged. Your creatinine improved with fluids. It is likely that your creatinine was elevated due to dehydration. Please make sure to drink lots of water. Your abdominal pain could also be caused by acid reflux for which you can take Pepcid AC twice daily for the next 2 weeks. Constipation can also be contributing to your symptoms. Your last bowel movement was 4 days ago, you may benefit from taking magnesium citrate 300 mg which is [id number]. If you do so, please ensure to be close to the bathroom. After your dose of magnesium citrate, you may take MiraLax nightly for the next several months. Please follow-up with your PCP in 3-5 days. Return to the ED if your symptoms worsen, you are persistently vomiting, you experience chest pain or shortness of breath. Prescriptions: No Action clobetasol 0.05 % ointment 1 applic topical QAM AND QPM Qty: 60 12RF lidocaine 5 % gel See Rx Instructions .ROUTE .COMPLEX Qty: 30 0RF Rx Instructions: Apply 2-3 times daily for vaginal pain; prazosin 2 mg capsule 2 mg PO BEDTIME clopidogrel 75 mg Tablet 75 mg PO DAILY Qty: 30 0RF verapamil 80 mg Tablet 80 mg PO TID sumatriptan succinate 6 mg/0.5 mL Pen Injector 6 mg SUBCUT Q8HR PRN (Reason: Headache) losartan 50 mg Tablet 50 mg PO DAILY Rx Instructions: Losartan potassium albuterol sulfate [Ventolin HFA] 90 mcg/actuation Hfa Aerosol Inhaler 2 puff INHALATION Q6H PRN (Reason: Shortness Of Breath) Spiriva Respimat 1.25 mcg/actuation Mist 2 puff INHALATION DAILY hydromorphone 2 mg Tablet 2 mg PO Q4HR PRN (Reason: Pain, Severe (7-10)) Qty: 60 0RF loperamide [Imodium A-D] 2 mg capsule 2 mg PO QID PRN (Reason: loose stool) Qty: 30 0RF magnesium oxide 500 mg tablet 500 mg PO DAILY Qty: 30 0RF metformin 500 mg Tablet 1,000 mg PO BID gabapentin 600 mg tablet 800 mg PO TID PRN (Reason: pain) sertraline 100 mg tablet 100 mg PO DAILY Label Comments: take 1 tablet by mouth once daily for anxiety bupropion HCl 300 mg tablet extended release 24 hr 300 mg PO DAILY Qty: 0 0RF Referrals: Andrea Coyne MD [Primary Care Provider] - Stand Alone Forms: Patient Portal/API
[2022-10-11 13:17] LABS: Add Manual Diff / Slide Review NO; Basophils Absolute Auto 0 /uL (0-100); Basophils Percent Auto 0.5 % (0-2); Eosinophils Absolute Auto 100 /uL (0-450); Eosinophils Percent Auto 1.8 % (2-4); Hematocrit 37.7 % (36-46); Hemoglobin 12.1 g/dL (12.0-16.0); Lymphocytes Absolute Auto 1400 /uL (1100-4500); Lymphocytes Percent Auto 20.4 % (25-40); Mean Corpuscular Volume 93.6 fL (80-100); Monocytes Absolute Auto 500 /uL (0-900); Monocytes Percent Auto 6.8 % (3-14); Neutrophils Absolute Auto 4800 /uL (1500-7000); Neutrophils Percent Auto 70.5 % (50-75); Platelet Count 254 X10^3/uL (150-400); Red Blood Cell Count 4.03 X10^6/uL (4.0-5.2); Red Cell Distribution Width 14.7 % (11.6-14.8); White Blood Cell Count 6.8 X10^3/uL (4.5-11.0)
[2022-10-11 13:22] LABS: Prothrombin Time 11.8 SECONDS (10.1-12.7)
[2022-10-11 13:24] LABS: Alanine Aminotransferase 21 IU/L (<35); Alkaline Phosphatase 94 U/L (38-126); Aspartate Aminotransferase 21 IU/L (14-36); BUN Creatinine Ratio 28.2 (6-22); Bilirubin Total 0.4 mg/dL (0.2-1.3); Blood Urea Nitrogen 37 mg/dL (7-17); Calcium 9.3 mg/dL (8.4-10.2); Carbon Dioxide 23 mmol/L (22-32); Chloride 101 mmol/L (98-107); Estimated Glomerular Filt Rate 44 mL/min (>60); Glucose 101 mg/dL (80-110); Lactate (Lactic Acid) 1.5 mmol/L (0.7-2.1); Lipase 207 U/L (23-300); Sodium 137 mmol/L (137-145); Total Protein 7.7 g/dL (6.3-8.2)
[2022-10-11 13:25] LABS: PTT Partial Thromboplastin Tim 34 SECONDS (26-36)
[2022-10-11 13:26] LABS: Potassium 5.4 mmol/L (3.4-5.1)
[2022-10-11] MEDS: MORPHINE 2 MG/ML INJ IV (13:38)
[2022-10-11] MEDS: SODIUM CHLORIDE 0.9% 1,000 ML 1000 ML IV ×2 (13:46→16:19)
[2022-10-11] MEDS: FAMOTIDINE 20 MG/2 ML VIAL IV (16:19)
[2022-10-11] MEDS: MAG HYDROX/ALUMINUM/SIMETH SUS 20 ML, LIDOCAINE VISCOUS 2% 15 ML PO (16:21)
[2022-10-11] MEDS: MORPHINE 4 MG/ML INJ IV (18:03)
[2022-10-11 18:23] LABS: Alanine Aminotransferase 20 IU/L (<35); Alkaline Phosphatase 89 U/L (38-126); Aspartate Aminotransferase 23 IU/L (14-36); BUN Creatinine Ratio 25.9 (6-22); Bilirubin Total 0.4 mg/dL (0.2-1.3); Blood Urea Nitrogen 30 mg/dL (7-17); Calcium 8.9 mg/dL (8.4-10.2); Carbon Dioxide 25 mmol/L (22-32); Chloride 105 mmol/L (98-107); Estimated Glomerular Filt Rate 51 mL/min (>60); Glucose 91 mg/dL (80-110); HEMOLYSIS < 15 (0-50); Potassium 5.1 mmol/L (3.4-5.1); Sodium 138 mmol/L (137-145); Total Protein 7.4 g/dL (6.3-8.2)
[2022-10-15 15:44] LABS: Albumin 3.8 g/dL (3.5-5.0); Globulin 3.9 g/dL (1.7-4.1); HEMOLYSIS 29 (0-50)
[2022-10-15 15:47] LABS: Albumin 3.5 g/dL (3.5-5.0); Albumin Globulin Ratio 0.9 (1.0-2.8); Globulin 3.9 g/dL (1.7-4.1)
== END 2022-10-11 19:19 | disposition home or self-care (01) ==
PROVIDERS: Emergency Provider Student in an Organized Health Care Education/Training Program; PCP Internal Medicine
DX: R10.9 Unspecified abdominal pain (principal); K43.9 Ventral hernia without obstruction or gangrene; R00.0 Tachycardia, unspecified
CPT/HCPCS: 36415; 74177; 80053; 81003; 83605; 83690; 85025; 85610; 85730; 93005; 96361; 96374; 96375; 96376; 99284; J2270; Q9967

== ENCOUNTER → 2023-01-07 12:46 | Outpatient (CLI) | payer MEDICARE, MEDICAID, SELFPAY ==
[2022-06-23 03:57] VITALS: BMI 46.9
--- NOTE | 2023-01-07 | DI.MRI.S_ITS ---
PROCEDURE: MR LUMBAR SPINE WO CON INDICATIONS: Radiculopathy, lumbar region TECHNIQUE: Noncontrast sagittal T1 spin echo and T2 fast echo, sagittal STIR, and T2 fast spin echo through the lumbar spine. In cases with scoliosis, additional coronal T2 fast spin echo may be performed. COMPARISON: [facility], CT, CT LUMBAR SPINE WO CON, 07/20/2021, 10:57. [facility], CT, CT LUMBAR SPINE WO CON, 08/22/2019, 11:29. [facility], MR, L-SPINE WITHOUT CONTRAST, 08/05/2016, 14:24. [facility], CT, CT ABDOMEN PELVIS W CON, 10/11/2022, 13:56. FINDINGS: Image quality: This examination is limited by involuntary motion artifact. This study is limited by body habitus. There is artifact associated with the metallic hardware. Alignment and Curvature: There is grade 1 retrolisthesis at L1-L2. Grade 1 anterolisthesis is seen at L4-L5. Bone Marrow: Marrow is of normal overall signal. No acute vertebral body compression fractures. Spinal Cord: Conus medullaris terminates at the L1 level. Visualized cord demonstrates normal signal and size. Paraspinous Soft Tissues: No paravertebral masses. There is a right adrenal lesion seen. The right kidney is located within the pelvis and is partially seen. There is a simple left renal cyst seen that measures 2 cm. An expected amount fluid and postoperative change can be seen within the postoperative bed. No focal soft tissue fluid collections are seen. Bilateral pedicle screws can be seen L2 through L5, with a right-sided pedicle screw also seen at S1. Vertical fixation rods are seen. Disc spacers are seen at L2-L3, L3-L4, L4-L5, and L5-S1. There has been removal of portions of the posterior elements. Bone grafting material is seen, which is better demonstrated by CT. T11-T12: Moderate loss of disc height is seen. Loss of disc signal is seen. Mild generalized disc bulge is seen. Mild facet joint hypertrophy is seen. Moderate bilateral neural foraminal narrowing is seen. Minimal central canal narrowing is seen. T12-L1: Moderate loss of disc height is seen. Loss of disc signal is seen. Reactive marrow endplate changes are seen which are hypointense on T1-weighted imaging and hyperintense on T2 weighted imaging, which is most consistent with edema (Modic type I changes). Moderate disc bulge is seen, which is eccentric to the right. There is a central/right disc extrusion, with inferior migration of the disc material. Mild facet joint hypertrophy is seen. There is at least moderate right-sided neural foraminal narrowing. No significant left-sided neural foraminal narrowing is seen. Mild central canal narrowing is seen. These imaging findings have progressed compared to the prior study. L1-L2: Moderate to severe loss of disc height and disc signal can be seen. Reactive marrow endplate changes are seen, which are hyperintense on T1-weighted and T2-weighted imaging and most consistent with fatty metaplasia (Modic type II changes). At least moderate disc bulge is seen. There is a superimposed central disc osteophyte protrusion. Moderate facet joint hypertrophy is seen. There is moderate to severe left-sided neural foraminal narrowing, with a degree of compression upon the exiting left L1 nerve root. Moderate right-sided neural foraminal narrowing can be seen. Mild to moderate central canal narrowing is seen. These imaging findings have progressed compared to the prior study. L2-L3: Postoperative changes are seen at this level. Mild generalized disc bulge is seen. Mild facet joint hypertrophy is seen. There is moderate right-sided and at least moderate left-sided neural foraminal narrowing. No central canal narrowing can be seen. These findings are overall mildly improved compared to 2016. L3-L4: Mild generalized disc bulge is seen. Mild facet joint hypertrophy is seen. There is moderate left-sided and no right-sided neural foraminal narrowing. No central canal narrowing is seen. This level is improved compared to preoperative MRI. L4-L5: Mild to moderate disc bulge is seen. Mild to moderate facet hypertrophy can be seen. There is mild left-sided and [id number] right-sided neural foraminal narrowing. No central canal narrowing is seen. This level is clearly improved compared to the preoperative MRI. L5-S1: Mild generalized disc bulge is seen. Moderate facet joint hypertrophy is seen. There is mild left-sided and no right-sided neural foraminal narrowing. No central canal narrowing can be seen. The previously seen disc space narrowing is improved. IMPRESSION: L2 through S1 postoperative change, with improvement throughout the postoperative region. There is progression of degenerative change at T12-L1 and L1-L2 compared to 2016. Additional findings: Right adrenal lesion Simple left renal cyst Pelvic right kidney, which is partially seen. Dictated by: David Winchester M.D. on 01/07/2023 at 13:12 Approved by: David Winchester M.D. on 01/07/2023 at 13:24
== END ==
PROVIDERS: PCP Internal Medicine; Referring Provider Orthopaedic Surgery Orthopaedic Surgery of the Spine; Visit Provider Orthopaedic Surgery Orthopaedic Surgery of the Spine
DX: M47.25 Other spondylosis with radiculopathy, thoracolumbar region (principal); M47.26 Other spondylosis with radiculopathy, lumbar region; Z98.1 Arthrodesis status
CPT/HCPCS: 72148

== ENCOUNTER 2023-02-04 03:30 | Emergency (ER) | payer MEDICARE, MEDICAID, SELFPAY ==
[2022-06-23 03:57] VITALS: BMI 46.9
[2023-02-04] VITALS (13 sets, daily range): BP systolic 124–152; BP diastolic 61–72; PULSE 91–103; RESP 14–20; TEMP 36.6; O2SAT 92–96; BMI 43.4
--- NOTE | 2023-02-04 03:37 | ED_ITS ---
HPI - Chest Pain General Chief Complaint: Extremity Problem,Nontraumatic Stated Complaint: left shoulder pain- sob Time Seen by Provider: 02/04/23 03:37 History of Present Illness HPI narrative: Patient is a 72-year-old female history of COPD, diabetes, CVA, depression hyperlipidemia presenting today with sudden onset of left shoulder pain. She reports that while eating at 8:00 p.m. she noticed left shoulder pain. It is nonradiating. Tender to touch worse with palpation and movement. Denies any chest pain palpitations or shortness breath. She did take some Tylenol at home without significant relief. She was given 2 nitroglycerin by EMS reported a headache but really shoulder pain. Who is also given morphine which also has not helped. She states that she was in her normal state of health previously. Related Data Home Medications Medication Instructions Recorded Confirmed metformin 500 mg tablet 1,000 mg PO BID 02/02/18 01/12/23 gabapentin 600 mg tablet 800 mg PO TID PRN pain 04/19/18 01/12/23 prazosin 2 mg capsule 2 mg PO BEDTIME 09/11/20 01/12/23 sertraline 100 mg tablet 100 mg PO DAILY 09/24/21 01/12/23 albuterol sulfate 90 mcg/actuation 2 puff inhalation Q6H PRN 10/26/21 01/12/23 aerosol inhaler (Ventolin HFA) Shortness Of Breath losartan 50 mg tablet 50 mg PO DAILY 10/26/21 01/12/23 sumatriptan succinate 6 mg/0.5 mL 6 mg SUBCUT Q8HR PRN Headache 10/26/21 01/12/23 subcutaneous pen injector tiotropium bromide 1.25 2 puff inhalation DAILY 10/26/21 01/12/23 mcg/actuation mist for inhalation (Spiriva Respimat) verapamil 80 mg tablet 80 mg PO TID 10/26/21 01/12/23 Previous Rx's Medication Instructions Recorded clopidogrel 75 mg tablet 75 mg PO DAILY #30 tabs 01/25/20 bupropion HCl 300 mg 24 hr tablet, 300 mg PO DAILY #0 tabs 09/26/21 extended release hydromorphone 2 mg tablet 2 mg PO Q4HR PRN Pain, Severe 06/28/22 (7-10) #60 tabs loperamide 2 mg capsule (Imodium 2 mg PO QID PRN loose stool #30 06/28/22 A-D) caps magnesium oxide 500 mg tablet 500 mg PO DAILY #30 tabs 06/28/22 clobetasol 0.05 % topical ointment 1 applic topical QAM AND QPM #60 09/30/22 grams lidocaine 5 % topical gel See Rx Instructions .Route 10/08/22 .COMPLEX #30 grams fluconazole 150 mg tablet 150 mg PO Q3D 2 doses #2 tabs 10/20/22 (Diflucan) nystatin-triamcinolone 100,000 1 applic topical BID #60 grams 10/20/22 unit/g-0.1 % topical cream Allergies Allergy/AdvReac Type Severity Reaction Status Date / Time vancomycin Allergy Intermediate Flushing & Verified 01/12/23 08:43 rash Review of Systems Review of Systems ROS Unobtainable: All systems reviewed & are unremarkable except as noted in HPI and below Patient History Medical History Acute kidney injury (~12/2018) Adrenal mass Cardiomegaly Depression with anxiety Easy bruisability Enteritis History of concussion History of recurrent TIAs History of stroke Hyperlipidemia associated with type 2 diabetes mellitus Hypothyroid Migraine Morbid obesity with BMI of 45.0-49.9, adult Neuropathy ABIOLA on CPAP Osteopenia Polyneuropathy Radiculopathy Type 2 diabetes mellitus Vitamin D deficiency Surgical History History of 3 sections History of lumbar spinal fusion (06/27/17) History of lumbar spinal fusion (11/26/19) History of ventral hernia repair Hx of umbilical hernia repair S/P cholecystectomy S/P trigger finger release Family History Mother Heart disease Father Heart disease Grandfather Diabetes mellitus Other Family history non-contributory Social History marital status: unknown household members: none Smoking Status: Never smoker alcohol intake: never substance use type: does not use Smoking Status: Never smoker alcohol intake frequency: 0-2 drinks per day Substance Use Type: does not use and painkillers Exam Initial Vital Signs Initial Vital Signs: Vital Signs Temperature 98 F 02/04/23 03:20 Pulse Rate 100 H 02/04/23 03:20 Respiratory Rate 20 02/04/23 03:20 Blood Pressure 124/62 02/04/23 03:20 Pulse Oximetry 96 02/04/23 03:20 Oxygen Delivery Method Room Air 02/04/23 03:20 GENERAL: Alert pleasant 72-year-old female and in no acute distress. HEENT: Head atraumatic,EOMI, pupils reactive, face symmetric, moist mucous mem branes CARDIOVASCULAR: Regular rate and rhythm without murmurs, rubs or gallops. RESPIRATORY: Breath sounds equal bilaterally, no wheezes rales or rhonchi. ABDOMEN: Soft, nontender. Normoactive bowel sounds all 4 quadrants. No guarding or rebound. EXTREMITIES: Normal range of motion, no clubbing or edema. Neurovascularly intact Left shoulders slightly tender to touch sensation and deltoid intact distal radial pulse intact NEUROLOGICAL: Alert and oriented x4.Normal gait and speech. Cable Supervisor strength equal bilaterally SKIN: Warm, dry, no laceration, no petechiae, no rashes or lesions. Course Orders Ordered: Discontinued Medications Ketorolac Tromethamine (Ketorolac 30 Mg/Ml Vial) 15 mg IV NOW ONE Stop: 02/04/23 04:20 Last Admin: 02/04/23 04:46 Dose: 15 mg Documented By: LAUREN Vital Signs Vital signs: Vital Signs - 8 hr 02/04/23 03:20 Temperature 98 F Pulse Rate 100 H Respiratory Rate 20 Blood Pressure 124/62 Pulse Oximetry 96 Oxygen Delivery Method Room Air MDM - Chest Pain Lab Data 02/04/23 03:37 02/04/23 03:37 Labs: Lab Results 02/04/23 02/04/23 02/04/23 Range/Units 03:37 03:37 03:37 WBC 7.8 (4.5-11.0) X10^3/uL RBC 3.93 L (4.0-5.2) X10^6/uL Hgb 12.4 (12.0-16.0) g/dL Hct 36.8 (36-46) % MCV 93.8 (80-100) fL MCH 31.5 (26-34) PG MCHC 33.6 (30-36) % RDW 14.6 (11.6-14.8) % Plt Count 258 (150-400) X10^3/uL Neut % (Auto) 72.0 (50-75) % Lymph % (Auto) 20.0 L (25-40) % Humphreys % (Auto) 6.5 (3-14) % Eos % (Auto) 0.5 L (2-4) % Baso % (Auto) 1.0 (0-2) % Neut # (Auto) 5600 (9975-5807) /uL Lymph # (Auto) 1600 (7831-0614) /uL Humphreys # (Auto) 500 (0-900) /uL Eos # (Auto) 0 (0-450) /uL Baso # (Auto) 100 (0-100) /uL Sodium 138 (137-145) mmol/L Potassium 4.8 (3.4-5.1) mmol/L Chloride 108 H (98-107) mmol/L Carbon Dioxide 24 (22-32) mmol/L BUN 23 H (7-17) mg/dL Creatinine 0.93 (0.52-1.04) mg/dL Estimated GFR > 60 (>60) mL/min BUN/Creatinine Ratio 24.7 H (6-22) Glucose 117 H (80-110) mg/dL Calcium 9.3 (8.4-10.2) mg/dL Total Bilirubin 0.3 (0.2-1.3) mg/dL AST 20 (14-36) IU/L ALT 20 (<35) IU/L Alkaline Phosphatase 105 (38-126) U/L Total Creatine Kinase 51 (30-135) U/L CK-MB (CK-2) TNP CK-MB (CK-2) Rel Index TNP Troponin I < 0.012 (0.01-0.034) ng/mL NT-Pro-B Natriuret Pep 142 H (<125) pg/mL Total Protein 7.4 (6.3-8.2) g/dL Albumin 3.8 (3.5-5.0) g/dL Globulin 3.6 (1.7-4.1) g/dL Albumin/Globulin Ratio 1.1 (1.0-2.8) Lipase 145 (23-300) U/L 02/04/23 Range/Units 06:55 WBC (4.5-11.0) X10^3/uL RBC (4.0-5.2) X10^6/uL Hgb (12.0-16.0) g/dL Hct (36-46) % MCV (80-100) fL MCH (26-34) PG MCHC (30-36) % RDW (11.6-14.8) % Plt Count (150-400) X10^3/uL Neut % (Auto) (50-75) % Lymph % (Auto) (25-40) % Humphreys % (Auto) (3-14) % Eos % (Auto) (2-4) % Baso % (Auto) (0-2) % Neut # (Auto) (0461-3160) /uL Lymph # (Auto) (9544-9145) /uL Humphreys # (Auto) (0-900) /uL Eos # (Auto) (0-450) /uL Baso # (Auto) (0-100) /uL Sodium (137-145) mmol/L Potassium (3.4-5.1) mmol/L Chloride (98-107) mmol/L Carbon Dioxide (22-32) mmol/L BUN (7-17) mg/dL Creatinine (0.52-1.04) mg/dL Estimated GFR (>60) mL/min BUN/Creatinine Ratio (6-22) Glucose (80-110) mg/dL Calcium (8.4-10.2) mg/dL Total Bilirubin (0.2-1.3) mg/dL AST (14-36) IU/L ALT (<35) IU/L Alkaline Phosphatase (38-126) U/L Total Creatine Kinase (30-135) U/L CK-MB (CK-2) CK-MB (CK-2) Rel Index Troponin I < 0.012 (0.01-0.034) ng/mL NT-Pro-B Natriuret Pep (<125) pg/mL Total Protein (6.3-8.2) g/dL Albumin (3.5-5.0) g/dL Globulin (1.7-4.1) g/dL Albumin/Globulin Ratio (1.0-2.8) Lipase (23-300) U/L Imaging Data Chest x-ray: Radiologist's Impression: Left lower lobe infiltrate probable small left pleural effusion Extremity x-ray #1: Radiologist's Impression: Degenerative changes of the glenohumeral and accurate acromial joints without traumatic injury ECG Data Interpretation: Normal sinus rhythm rate 101 CA interval 150 QRS [address] changes or T- wave inversions MDM Narrative Medical decision making narrative: Patient is 72-year-old female multiple risk factors including stroke diabetes hypertension hyperlipidemia presenting today with left shoulder pain. She denies any injury there is no obvious deformity x-rays negative. Tender to touch. Blood work is overall reassuring without evidence of acute coronary syndrome electrolyte abnormality or leukocytosis. Now convinced that this related to cardiac problem I suspect it is more musculoskeletal. X-ray also shows osteoarthritis. She had absolutely no relief with nitroglycerin this no EKG changes. Negative troponins Pain is much better after Toradol. Patient's daughter is unable to pick her up. Caregiver has been called. Discharge Plan Departure Patient Disposition: Home Clinical Impression: Osteoarthritis, Mild anemia Instructions: DI for Osteoarthritis Activity Restrictions/Additional Instructions: *You have been diagnosed with left shoulder pain, arthritis *What to do: At this time does appear that you have some arthritis. Recommend he for ice. *Continue to take medications as directed Tylenol 650 mg every 4-6 hours if needed for [id number] pain Motrin 600 mg every 6 hours if needed for [id number] pain *Follow up with your primary care provider in 2-3 days or call [phone] *Return to ER if you should have increasing pain chest pain shortness of breath or any new, worsening or concerning symptoms Prescriptions: No Action clobetasol 0.05 % ointment 1 applic topical QAM AND QPM Qty: 60 12RF lidocaine 5 % gel See Rx Instructions .ROUTE .COMPLEX Qty: 30 0RF Rx Instructions: Apply 2-3 times daily for vaginal pain; fluconazole [Diflucan] 150 mg tablet 150 mg PO Q3D Qty: 2 0RF Rx Instructions: Repeat second dose 72 hrs after first dose nystatin-triamcinolone 100,000-0.1 unit/g-% cream 1 applic topical BID Qty: 60 2RF prazosin 2 mg capsule 2 mg PO BEDTIME clopidogrel 75 mg Tablet 75 mg PO DAILY Qty: 30 0RF verapamil 80 mg Tablet 80 mg PO TID sumatriptan succinate 6 mg/0.5 mL Pen Injector 6 mg SUBCUT Q8HR PRN (Reason: Headache) losartan 50 mg Tablet 50 mg PO DAILY Rx Instructions: Losartan potassium albuterol sulfate [Ventolin HFA] 90 mcg/actuation Hfa Aerosol Inhaler 2 puff INHALATION Q6H PRN (Reason: Shortness Of Breath) Spiriva Respimat 1.25 mcg/actuation Mist 2 puff INHALATION DAILY hydromorphone 2 mg Tablet 2 mg PO Q4HR PRN (Reason: Pain, Severe (7-10)) Qty: 60 0RF loperamide [Imodium A-D] 2 mg capsule 2 mg PO QID PRN (Reason: loose stool) Qty: 30 0RF magnesium oxide 500 mg tablet 500 mg PO DAILY Qty: 30 0RF metformin 500 mg Tablet 1,000 mg PO BID gabapentin 600 mg tablet 800 mg PO TID PRN (Reason: pain) sertraline 100 mg tablet 100 mg PO DAILY Patient Comments: take 1 tablet by mouth once daily for anxiety bupropion HCl 300 mg tablet extended release 24 hr 300 mg PO DAILY Qty: 0 0RF Referrals: Andrea Coyne MD [Primary Care Provider] - Stand Alone Forms: Patient Portal/API
--- NOTE | 2023-02-04 03:37 | DI.RAD.S_ITS ---
PROCEDURE: XR CHEST 1V INDICATIONS: chest pain TECHNIQUE: One view of the chest was acquired. COMPARISON: [facility], CR, XR CHEST 1V, 06/22/2022, 20:44. FINDINGS: Surgical changes and devices: None. Lungs and pleura: Patchy bibasilar opacities more pronounced on the left. Hazy opacities of the bilateral costophrenic angles also more pronounced on the left. This may represent small bilateral pleural effusions. No pneumothorax. No focal consolidation. Mediastinum: Mediastinal contours appear normal. Heart size is normal. Bones and chest wall: No suspicious bony lesions. Overlying soft tissues appear unremarkable. IMPRESSION: Patchy left basilar airspace opacities with associated pleural effusion. Findings may represent focal airspace disease/pneumonia. Recommend follow up chest radiograph 4-6 weeks after treatment to document resolution of findings and/or return to baseline examination. No significant discrepancy with the port cdl a driver radiology preliminary report. Dictated by: Hernando Bah M.D. on 02/04/2023 at 7:19 Approved by: Hernando Bah M.D. on 02/04/2023 at 7:21
--- NOTE | 2023-02-04 03:37 | DI.RAD.S_ITS ---
PROCEDURE: XR SHOULDER LT MIN 2V INDICATIONS: pain no injury TECHNIQUE: 2 views of the shoulder were acquired. COMPARISON: [facility], CR, XR SHOULDER LT MIN 2V, 10/25/2018, 12:26. FINDINGS: Bones: No acute fracture or dislocation. Severe hypertrophic osteoarthritic changes of the left acromioclavicular joint. Mild degenerative changes of the glenohumeral joint. Coracoclavicular and acromioclavicular intervals are maintained. No suspicious osseous lesions. Soft tissues: No suspicious soft tissue calcifications. IMPRESSION: Degenerative changes of the left acromioclavicular and glenohumeral joints. No acute fracture or dislocation. No significant discrepancy with the night order selector radiology preliminary report. Dictated by: Hernando Bah M.D. on 02/04/2023 at 7:18 Approved by: Hernando Bah M.D. on 02/04/2023 at 7:19
[2023-02-04 03:46] LABS: Add Manual Diff / Slide Review NO; Basophils Absolute Auto 100 /uL (0-100); Eosinophils Absolute Auto 0 /uL (0-450); Eosinophils Percent Auto 0.5 % (2-4); Hematocrit 36.8 % (36-46); Hemoglobin 12.4 g/dL (12.0-16.0); Lymphocytes Absolute Auto 1600 /uL (1100-4500); Mean Corpuscular HGB Conc 33.6 % (30-36); Mean Corpuscular Hemoglobin 31.5 PG (26-34); Mean Corpuscular Volume 93.8 fL (80-100); Monocytes Absolute Auto 500 /uL (0-900); Monocytes Percent Auto 6.5 % (3-14); Neutrophils Absolute Auto 5600 /uL (1500-7000); Platelet Count 258 X10^3/uL (150-400); Red Blood Cell Count 3.93 X10^6/uL (4.0-5.2); Red Cell Distribution Width 14.6 % (11.6-14.8); White Blood Cell Count 7.8 X10^3/uL (4.5-11.0)
[2023-02-04 04:00] LABS: Alanine Aminotransferase 20 IU/L (<35); Albumin 3.8 g/dL (3.5-5.0); Albumin Globulin Ratio 1.1 (1.0-2.8); Alkaline Phosphatase 105 U/L (38-126); Aspartate Aminotransferase 20 IU/L (14-36); BUN Creatinine Ratio 24.7 (6-22); Bilirubin Total 0.3 mg/dL (0.2-1.3); Blood Urea Nitrogen 23 mg/dL (7-17); Calcium 9.3 mg/dL (8.4-10.2); Carbon Dioxide 24 mmol/L (22-32); Chloride 108 mmol/L (98-107); Creatine Kinase 51 U/L (30-135); Estimated Glomerular Filt Rate > 60 mL/min (>60); Globulin 3.6 g/dL (1.7-4.1); Glucose 117 mg/dL (80-110); HEMOLYSIS 18 (0-50); Lipase 145 U/L (23-300); Potassium 4.8 mmol/L (3.4-5.1); Sodium 138 mmol/L (137-145); Total Protein 7.4 g/dL (6.3-8.2)
[2023-02-04 04:09] LABS: NT-proBNP (BNP-Adult 18+) 142 pg/mL (<125)
[2023-02-04 04:11] LABS: Troponin I < 0.012 ng/mL (0.01-0.034)
[2023-02-04] MEDS: KETOROLAC 30 MG/ML VIAL 15 MG IV (04:46)
[2023-02-04 07:29] LABS: Troponin I < 0.012 ng/mL (0.01-0.034)
--- NOTE | 2023-02-04 08:03 | PC.NURSE ---
pt resting in bed NAD. given DC instructions. awaiting for her care facility-- [facility], to open to arrange transport home to [place].
--- NOTE | 2023-02-04 08:08 | PC.NURSE ---
[facility] - [phone]. Elzbieta, Caregiver on her way to pick patient up.
== END 2023-02-04 09:00 | disposition home or self-care (01) ==
PROVIDERS: Emergency Provider Emergency Medicine; PCP Internal Medicine
DX: M19.012 Primary osteoarthritis, left shoulder (principal); D64.9 Anemia, unspecified; R06.02 Shortness of breath
CPT/HCPCS: 71045; 73030; 80053; 82550; 83690; 83880; 84484; 85025; 93005; 96374; 99284; J1885

== ENCOUNTER → 2023-05-03 10:11 | Outpatient (CLI) | payer MEDICARE, MEDICAID, SELFPAY ==
[2022-06-23 03:57] VITALS: BMI 46.9
== END ==
PROVIDERS: PCP Internal Medicine; Visit Provider Obstetrics & Gynecology
DX: N90.89 Other specified noninflammatory disorders of vulva and perineum (principal)
CPT/HCPCS: 87255

== ENCOUNTER 2023-06-06 19:15 | Emergency (ER) | payer MEDICARE, MEDICAID, SELFPAY ==
[2022-06-23 03:57] VITALS: BMI 46.9
[2023-06-06 19:19] VITALS: BP 119/88; PULSE 99; RESP 18; TEMP 36.4; O2SAT 99; BMI 41.5
--- NOTE | 2023-06-06 19:24 | ED.GENADULT ---
HPI - General Adult General Chief complaint: Abdominal Pain Stated complaint: abd pain Time Seen by Provider: 06/06/23 19:23 History of Present Illness HPI narrative: 73-year-old female nonsmoker with history of elevated BMI, frequent UTIs, prior stroke, type 2 diabetes, COPD presents by EMS for evaluation of a few days of worsening left lower quadrant pain. She states it came on rather gradually and is associated with nausea and frequent dry heaves. She denies any fever or chills. She is not dizzy nor weak or lightheaded. She denies any change in bowel habits specifically no constipation or diarrhea. She has no dysuria, frequency or urgency. Her pain is worse when she moves and improves with rest. She denies radiation of the pain. She is had it before and states there was no definitive diagnosis. Related Data Home Medications Medication Instructions Recorded Confirmed metformin 500 mg tablet 1,000 mg PO BID 02/02/18 05/17/23 gabapentin 600 mg tablet 800 mg PO TID PRN pain 04/19/18 05/17/23 prazosin 2 mg capsule 2 mg PO BEDTIME 09/11/20 05/17/23 sertraline 100 mg tablet 100 mg PO DAILY 09/24/21 05/17/23 albuterol sulfate 90 mcg/actuation 2 puff inhalation Q6H PRN 10/26/21 05/17/23 aerosol inhaler (Ventolin HFA) Shortness Of Breath losartan 50 mg tablet 50 mg PO DAILY 10/26/21 05/17/23 sumatriptan succinate 6 mg/0.5 mL 6 mg SUBCUT Q8HR PRN Headache 10/26/21 05/17/23 subcutaneous pen injector tiotropium bromide 1.25 2 puff inhalation DAILY 10/26/21 05/17/23 mcg/actuation mist for inhalation (Spiriva Respimat) verapamil 80 mg tablet 80 mg PO TID 10/26/21 05/17/23 Previous Rx's Medication Instructions Recorded clopidogrel 75 mg tablet 75 mg PO DAILY #30 tabs 01/25/20 bupropion HCl 300 mg 24 hr tablet, 300 mg PO DAILY #0 tabs 09/26/21 extended release hydromorphone 2 mg tablet 2 mg PO Q4HR PRN Pain, Severe 06/28/22 (7-10) #60 tabs loperamide 2 mg capsule (Imodium 2 mg PO QID PRN loose stool #30 06/28/22 A-D) caps magnesium oxide 500 mg tablet 500 mg PO DAILY #30 tabs 06/28/22 clobetasol 0.05 % topical ointment 1 applic topical QAM AND QPM #60 09/30/22 grams lidocaine 5 % topical gel See Rx Instructions .Route 10/08/22 .COMPLEX #30 grams fluconazole 150 mg tablet 150 mg PO Q3D 2 doses #2 tabs 10/20/22 (Diflucan) nystatin-triamcinolone 100,000 1 applic topical BID #60 grams 10/20/22 unit/g-0.1 % topical cream nystatin 100,000 unit/gram topical 1 applic topical BID #60 grams 05/03/23 powder Allergies Allergy/AdvReac Type Severity Reaction Status Date / Time vancomycin Allergy Intermediate Flushing & Verified 05/17/23 09:35 rash Review of Systems Review of Systems Narrative: GENERAL: Denies chills, fatigue, malaise, fever, sweats. HEENT: Denies sinus pain, ear pain, sore throat, difficulty swallowing, dizziness. RESPIRATORY: Denies dyspnea, cough, wheezing, hemoptysis, sputum. CARDIOVASCULAR: Denies chest pain, palpitations, orthopnea, edema, GASTROINTESTINAL: See HPI : Denies dysuria, frequency, incontinence, hematuria, urinary retention. MUSCULOSKELETAL: denies weakness, joint pain, or bony pain SKIN: Denies rash, skin lesions, or other NEUROLOGIC: Denies weakness, headache, numbness, change in speech, confusion, seizures, incoordination. PSYCHIATRIC: No concerning psychosocial issues. 12 point review of systems is negative except for those stated above Patient History Medical History Acute kidney injury (~12/2018) Adrenal mass Cardiomegaly Depression with anxiety Easy bruisability Enteritis History of concussion History of recurrent TIAs History of stroke Hyperlipidemia associated with type 2 diabetes mellitus Hypothyroid Migraine Morbid obesity with BMI of 45.0-49.9, adult Neuropathy ABIOLA on CPAP Osteopenia Polyneuropathy Radiculopathy Type 2 diabetes mellitus Vitamin D deficiency Surgical History History of 3 sections History of lumbar spinal fusion (06/27/17) History of lumbar spinal fusion (11/26/19) History of ventral hernia repair Hx of umbilical hernia repair S/P cholecystectomy S/P trigger finger release Family History Mother Heart disease Father Heart disease Grandfather Diabetes mellitus Other Family history non-contributory Social History marital status: unknown household members: none Smoking Status: Never smoker alcohol intake: never substance use type: does not use Smoking Status: Never smoker alcohol intake frequency: 0-2 drinks per day Substance Use Type: does not use and painkillers Exam Narrative Exam Narrative: GENERAL: [73] year old patient appears stated age. Well-developed patient, in mild distress. HEAD: Atraumatic. Normocephalic. EYES: Pupils equal round and reactive. Extraocular motions intact. No scleral icterus. No injection or drainage. ENT: Moist mucous membranes Nose without bleeding, purulent drainage. Throat without erythema, tonsillar hypertrophy or exudate. Airway patent. NECK: Trachea midline. Non tender CARDIOVASCULAR: Regular rate and rhythm without murmurs, gallops, or rubs. RESPIRATORY: Prolonged expiratory phase with decreased breath sounds throughout, no significant increased work of breathing, no rales, rhonchi GASTROINTESTINAL: Abdomen soft, left lower quadrant pain, tender to palpate, nondistended. Bowel sounds present EXTREMITIES: No edema or joint tenderness. BACK: Nontender without deformity or crepitance. No flank tenderness. NEURO: AOx3. SKIN: No rash or erythema of visible areas Initial Vital Signs Initial Vital Signs: Vital Signs Temperature 97.6 F 06/06/23 19:19 Pulse Rate 99 H 06/06/23 19:19 Respiratory Rate 18 06/06/23 19:19 Blood Pressure 119/88 06/06/23 19:19 Pulse Oximetry 99 06/06/23 19:19 Oxygen Delivery Method Room Air 06/06/23 19:19 Course Orders Ordered: ED Orders 06/06/23 20:50 Blood Culture Stat Discontinued Medications Hydrocodone Bitart/Acetaminophen (Hydrocodone/Acet 5/325 Tablet) 1 tab PO NOW ONE Stop: 06/06/23 23:19 Last Admin: 06/06/23 23:40 Dose: 1 tab Documented By: DAVID Hydrocodone Bitart/Acetaminophen (Hydrocodone/Acet 5/325 Prepack) 1 bottle MISC SEEINSTR ONE Stop: 06/06/23 23:40 Last Admin: 06/07/23 00:23 Dose: 1 bottle Documented By: DAVID Sodium Chloride (Normal Saline 0.9%) 1,000 mls @ 1,000 mls/hr IV BOLUS ONE Stop: 06/06/23 20:22 Last Admin: 06/06/23 23:02 Dose: 1,000 mls/hr Documented By: DAVID Ondansetron HCl (Ondansetron 4 Mg/2 Ml Inj) 4 mg IV NOW ONE Stop: 06/06/23 19:24 Last Admin: 06/06/23 23:02 Dose: 4 mg Documented By: DAVID Ondansetron HCl (Ondansetron 4 Mg Odt Prepack) 1 bottle MISC SEEINSTR ONE Stop: 06/06/23 23:40 Last Admin: 06/07/23 00:23 Dose: 1 bottle Documented By: DAVID Pantoprazole Sodium (Pantoprazole 40 Mg Vial) 40 mg IV NOW ONE Stop: 06/06/23 19:24 Last Admin: 06/06/23 23:02 Dose: 40 mg Documented By: DAVID Vital Signs Vital signs: Vital Signs - 8 hr 06/06/23 22:55 06/06/23 23:00 06/06/23 23:01 Pulse Rate 86 91 H Respiratory Rate Blood Pressure 142/66 H Pulse Oximetry 98 98 06/06/23 23:01 06/06/23 23:30 06/06/23 23:30 Pulse Rate 88 87 Respiratory Rate 18 16 Blood Pressure 128/60 Pulse Oximetry 98 98 06/07/23 00:00 06/07/23 00:00 Pulse Rate 91 H Respiratory Rate 16 Blood Pressure 136/63 Pulse Oximetry 96 Medical Decision Making Lab Data 06/06/23 19:35 06/06/23 19:35 Labs: Lab Results 06/06/23 06/06/23 06/06/23 Range/Units 19:35 19:35 19:35 WBC 6.6 (4.5-11.0) X10^3/uL RBC 4.25 (4.0-5.2) X10^6/uL Hgb 13.0 (12.0-16.0) g/dL Hct 39.1 (36-46) % MCV 92.2 (80-100) fL MCH 30.7 (26-34) PG MCHC 33.3 (30-36) % RDW 15.4 H (11.6-14.8) % Plt Count 264 (150-400) X10^3/uL Neut % (Auto) 68.9 (50-75) % Lymph % (Auto) 20.6 L (25-40) % [place] % (Auto) 8.3 (3-14) % Eos % (Auto) 1.4 L (2-4) % Baso % (Auto) 0.8 (0-2) % Neut # (Auto) 4600 (8179-8509) /uL Lymph # (Auto) 1400 (6735-0986) /uL [place] # (Auto) 500 (0-900) /uL Eos # (Auto) 100 (0-450) /uL Baso # (Auto) 100 (0-100) /uL Sodium 138 (137-145) mmol/L Potassium 4.0 (3.4-5.1) mmol/L Chloride 104 (98-107) mmol/L Carbon Dioxide 26 (22-32) mmol/L BUN 31 H (7-17) mg/dL Creatinine 1.22 H (0.52-1.04) mg/dL Estimated GFR 47 L (>60) mL/min BUN/Creatinine Ratio 25.4 H (6-22) Glucose 98 (80-110) mg/dL Lactate 1.1 (0.7-2.1) mmol/L Calcium 9.4 (8.4-10.2) mg/dL Magnesium 1.4 L (1.6-2.3) mg/dL Total Bilirubin 0.5 (0.2-1.3) mg/dL AST 20 (14-36) IU/L ALT 18 (<35) IU/L Alkaline Phosphatase 88 (38-126) U/L Total Protein 7.8 (6.3-8.2) g/dL Albumin 4.0 (3.5-5.0) g/dL Globulin 3.8 (1.7-4.1) g/dL Albumin/Globulin Ratio 1.1 (1.0-2.8) Lipase 94 (23-300) U/L Urine Dip Bedside Urine Glucose Negative Bedside Urine Bilirubin - Negative Bedside Urine Ketone - Negative Urine Specific [place] 1.020 Bedside Urine Occult Blood - Negative Bedside Urine pH 5.5 Bedside Urine Protein - Negative Bedside Urine Urobilinogen - Negative Bedside Urine Nitrite - Negative Bedside Urine Leukocytes - Negative Esterase Point of care testing: Urine Dip Bedside Urine Glucose Negative Bedside Urine Bilirubin - Negative Bedside Urine Ketone - Negative Urine Specific [place] 1.020 Bedside Urine Occult Blood - Negative Bedside Urine pH 5.5 Bedside Urine Protein - Negative Bedside Urine Urobilinogen - Negative Bedside Urine Nitrite - Negative Bedside Urine Leukocytes - Negative Esterase MDM Narrative Medical decision making narrative: CC: 73-year-old female with left lower quadrant pain Complicating co-morbidities: Age, diabetes, prior stroke, BMI 41 Data collected from: Patient Medical records reviewed: Prior notes reviewed in our EMR Differential considered, but not limited to: Bowel obstruction versus diverticulitis versus kidney stone versus other Exam documented above, pertinent findings include: Heart rate slightly elevated but regular, decreased lung sounds throughout prolonged expiratory phase, abdomen is soft but tender in the left lower quadrant Lab Test results independently reviewed as above. Pertinent findings:o leukocytosis or left shift, no signs of anemia, primary electrolytes within normal limits, creatinine slightly increased at 1.22 with GFR 47 Independently reviewed EKG as above Imaging studies independently reviewed: CT of abdomen and pelvis with IV contrast shows a large wide-mouth ventral abdominal hernia containing the majority of small and large bowel demonstrated, no evidence of bowel obstruction or strangulation Treatments: IV fluids, Protonix, Zofran hydrocodone Re-evaluations: Pain well controlled, patient tolerating orals Discussion: Patient presents with left lower quadrant pain over the past few days. It is worse when she moves and improves with rest, no fever vomiting, no change in bowel habits, she states that she has had a ventral hernia for quite some time and knows that it is nonoperable, this pain is different than that which she normally has and is in her left lower quadrant. Labs are reassuring, imaging has no acute findings Disposition: see below, along with detailed discharge instructions that have been reviewed with patient as well as indications for ED re-evaluation and additional outpatient follow up Discharge Plan Departure Patient Disposition: Home Clinical Impression: Ventral hernia, recurrent Instructions: DI for Abdominal Pain-Adult Activity Restrictions/Additional Instructions: *You have been diagnosed with [abdominal pain] * As we discussed your history and physical exam as well as labs and imaging are very reassuring. There is no evidence of any severe diagnoses that would require a specific or immediate intervention. *What to do: *Please continue to take your regular medications as directed. [x ] New medication prescriptions sent to your pharmacy: [ ] *Please follow up with your primary care provider in 2-3 days, call for an appointment. Let them know you were seen in the Emergency Department and that we ask that you be seen in follow up. We will electronically transmit a record of today's note if your PCP is in our system *Please consider a clear liquid diet for the next 24-48 hours and then slowly advance to regular as tolerated. Also, try to avoid alcohol, nicotine, caffeine, spicy, acidic or fatty foods as this may worsen your symptoms *If you do not have a primary care provider please contact the [facility] Resource line at [phone]. They will ask some questions about your medical history and help get you set up with a doctor in the community. *Return to Emergency Department if you should have any new, worsening or concerning symptoms, such as [fever greater than 101 F, shaking chills, worsening pain, persistent vomiting or other bothersome symptoms] Prescriptions: No Action clobetasol 0.05 % ointment 1 applic topical QAM AND QPM Qty: 60 12RF lidocaine 5 % gel See Rx Instructions .ROUTE .COMPLEX Qty: 30 0RF Rx Instructions: Apply 2-3 times daily for vaginal pain; nystatin 100,000 unit/gram powder 1 applic topical BID Qty: 60 12RF fluconazole [Diflucan] 150 mg tablet 150 mg PO Q3D Qty: 2 0RF Rx Instructions: Repeat second dose 72 hrs after first dose nystatin-triamcinolone 100,000-0.1 unit/g-% cream 1 applic topical BID Qty: 60 2RF prazosin 2 mg capsule 2 mg PO BEDTIME clopidogrel 75 mg Tablet 75 mg PO DAILY Qty: 30 0RF verapamil 80 mg Tablet 80 mg PO TID sumatriptan succinate 6 mg/0.5 mL Pen Injector 6 mg SUBCUT Q8HR PRN (Reason: Headache) losartan 50 mg Tablet 50 mg PO DAILY Rx Instructions: Losartan potassium albuterol sulfate [Ventolin HFA] 90 mcg/actuation Hfa Aerosol Inhaler 2 puff INHALATION Q6H PRN (Reason: Shortness Of Breath) Spiriva Respimat 1.25 mcg/actuation Mist 2 puff INHALATION DAILY hydromorphone 2 mg Tablet 2 mg PO Q4HR PRN (Reason: Pain, Severe (7-10)) Qty: 60 0RF loperamide [Imodium A-D] 2 mg capsule 2 mg PO QID PRN (Reason: loose stool) Qty: 30 0RF magnesium oxide 500 mg tablet 500 mg PO DAILY Qty: 30 0RF metformin 500 mg Tablet 1,000 mg PO BID gabapentin 600 mg tablet 800 mg PO TID PRN (Reason: pain) sertraline 100 mg tablet 100 mg PO DAILY Patient Comments: take 1 tablet by mouth once daily for anxiety bupropion HCl 300 mg tablet extended release 24 hr 300 mg PO DAILY Qty: 0 0RF Referrals: Andrea Coyne MD [Primary Care Provider] - Stand Alone Forms: Patient Portal/API
[2023-06-06 19:45] LABS: Add Manual Diff / Slide Review NO; Basophils Absolute Auto 100 /uL (0-100); Basophils Percent Auto 0.8 % (0-2); Eosinophils Absolute Auto 100 /uL (0-450); Eosinophils Percent Auto 1.4 % (2-4); Hematocrit 39.1 % (36-46); Lymphocytes Absolute Auto 1400 /uL (1100-4500); Lymphocytes Percent Auto 20.6 % (25-40); Mean Corpuscular HGB Conc 33.3 % (30-36); Mean Corpuscular Hemoglobin 30.7 PG (26-34); Mean Corpuscular Volume 92.2 fL (80-100); Monocytes Absolute Auto 500 /uL (0-900); Monocytes Percent Auto 8.3 % (3-14); Neutrophils Absolute Auto 4600 /uL (1500-7000); Neutrophils Percent Auto 68.9 % (50-75); Platelet Count 264 X10^3/uL (150-400); Red Blood Cell Count 4.25 X10^6/uL (4.0-5.2); Red Cell Distribution Width 15.4 % (11.6-14.8); White Blood Cell Count 6.6 X10^3/uL (4.5-11.0)
[2023-06-06 19:56] LABS: Alanine Aminotransferase 18 IU/L (<35); Albumin Globulin Ratio 1.1 (1.0-2.8); Alkaline Phosphatase 88 U/L (38-126); Aspartate Aminotransferase 20 IU/L (14-36); BUN Creatinine Ratio 25.4 (6-22); Bilirubin Total 0.5 mg/dL (0.2-1.3); Blood Urea Nitrogen 31 mg/dL (7-17); Calcium 9.4 mg/dL (8.4-10.2); Carbon Dioxide 26 mmol/L (22-32); Chloride 104 mmol/L (98-107); Estimated Glomerular Filt Rate 47 mL/min (>60); Globulin 3.8 g/dL (1.7-4.1); Glucose 98 mg/dL (80-110); HEMOLYSIS < 15 (0-50); Lipase 94 U/L (23-300); Magnesium 1.4 mg/dL (1.6-2.3); Sodium 138 mmol/L (137-145); Total Protein 7.8 g/dL (6.3-8.2)
[2023-06-06 19:57] LABS: Lactate (Lactic Acid) 1.1 mmol/L (0.7-2.1)
--- NOTE | 2023-06-06 20:27 | DI.CT.S_ITS ---
PROCEDURE: CT ABDOMEN PELVIS W CON INDICATIONS: severe LLQ pain TECHNIQUE: After the administration of IV contrast, axial sections were acquired from the lung bases to the pubic symphysis. Coronal and sagittal reformats were performed. For radiation dose reduction, the following was used: automated exposure control, adjustment of mA and/or kV according to patient size. COMPARISON: [facility], CT, CT ABDOMEN PELVIS W CON, 10/11/2022, 13:56. FINDINGS: Image quality: There is metallic streak artifact from patient's surgical hardware limiting evaluation. Lung bases: There is mild bibasilar atelectasis. Heart: Heart is normal in size. ABDOMEN: Liver: No mass lesion. Gallbladder: Within normal limits without calcified gallstones. Biliary ducts: No biliary ductal dilatation. Pancreas: Unremarkable. Spleen: Normal in size. Adrenal Glands: A right adrenal mass measuring up to 3.8 cm with internal macroscopic fat is redemonstrated. The findings are compatible with a myelolipoma. Kidneys and Ureters: No hydronephrosis. There is a left renal cortical cyst. Stomach and Bowel: Stomach, small bowel loops, and colon are normal in caliber and wall thickness. There is colonic diverticulosis without acute diverticulitis. Peritoneum: No abnormal intraperitoneal fluid. No free air. Ventral Wall: There is a large wide-mouth ventral abdominal hernia containing the majority of the small and large bowel redemonstrated. Abdominal Nodes: No retroperitoneal or mesenteric adenopathy by size criteria. Vessels: Aorta and inferior vena cava are normal in size. PELVIS: Pelvic Organs: Unremarkable. Bladder: Unremarkable. Pelvic Nodes: No enlarged lymph nodes. Miscellaneous: No inguinal hernias are seen. Bones: Posterior fixation demonstrated throughout the lumbar spine. Visualized osseous structures demonstrate no suspicious focal lesions. IMPRESSION: 1. Large wide-mouth ventral abdominal hernia containing the majority of the small and large bowel demonstrated. No evidence of bowel obstruction or definite bowel strangulation. 2. Right adrenal mass containing macroscopic fat redemonstrated. The findings are compatible with a myelolipoma. Dictated by: Brijesh Bear M.D. on 06/06/2023 at 22:40 Approved by: Brijesh Bear M.D. on 06/06/2023 at 22:45
[2023-06-06 22:55] VITALS: PULSE 86; O2SAT 98
[2023-06-06 23:00] VITALS: PULSE 91; O2SAT 98
[2023-06-06 23:01] VITALS: BP 142/66; PULSE 88; RESP 18; O2SAT 98
[2023-06-06] MEDS: SODIUM CHLORIDE 0.9% 1,000 ML 1000 ML IV (23:02)
[2023-06-06] MEDS: ONDANSETRON 4 MG/2 ML INJ IV (23:02)
[2023-06-06] MEDS: PANTOPRAZOLE 40 MG VIAL IV (23:02)
[2023-06-06 23:30] VITALS: BP 128/60; PULSE 87; RESP 16; O2SAT 98
[2023-06-06] MEDS: HYDROCODONE/ACET 5/325 TABLET 1 TAB PO (23:40)
[2023-06-07] VITALS: BP 136/63; PULSE 91; RESP 16; O2SAT 96
[2023-06-07] MEDS: ONDANSETRON 4 MG ODT PREPACK 1 BOTTLE MISC (00:23)
[2023-06-07] MEDS: HYDROCODONE/ACET 5/325 PREPACK 1 BOTTLE MISC (00:23)
== END 2023-06-07 00:25 | disposition home or self-care (01) ==
PROVIDERS: Emergency Provider Emergency Medicine; PCP Internal Medicine
DX: K43.9 Ventral hernia without obstruction or gangrene (principal)
CPT/HCPCS: 36415; 74177; 80053; 81003; 83605; 83690; 83735; 85025; 87040; 96374; 96375; 99284; C9113; J2405; Q9967

== ENCOUNTER 2023-10-12 15:50 | Observation (INO) | payer MEDICARE, MEDICAID, SELFPAY ==
[2022-06-23 03:57] VITALS: BMI 46.9
[2023-10-12] VITALS (24 sets, daily range): BP systolic 106–154; BP diastolic 60–82; PULSE 90–102; RESP 16–27; TEMP 36.7–37.1; O2SAT 87–97; BMI 20.7; BMI 44.5
--- NOTE | 2023-10-12 16:25 | ED.FALL ---
HPI - Fall <Brandy Chatterjee MD - Last Filed: 10/13/23 07:19> General Chief Complaint: Fall Stated Complaint: GLF, Head Injury Time Seen by Provider: 10/12/23 15:51 Source: patient and EMS Mode of arrival: EMS Related Data Home Medications Medication Instructions Recorded Confirmed metformin 500 mg tablet 1,000 mg PO BID 02/02/18 10/13/23 gabapentin 600 mg tablet 800 mg PO TID PRN pain 04/19/18 10/12/23 sertraline 100 mg tablet 100 mg PO DAILY 09/24/21 10/13/23 albuterol sulfate 90 mcg/actuation 2 puff inhalation Q6H PRN 10/26/21 10/12/23 aerosol inhaler (Ventolin HFA) Shortness Of Breath sumatriptan succinate 6 mg/0.5 mL 6 mg SUBCUT Q8HR PRN Headache 10/26/21 10/13/23 subcutaneous pen injector tiotropium bromide 1.25 2 puff inhalation DAILY 10/26/21 10/13/23 mcg/actuation mist for inhalation (Spiriva Respimat) verapamil 80 mg tablet 80 mg PO TID 10/26/21 10/13/23 Previous Rx's Medication Instructions Recorded clopidogrel 75 mg tablet 75 mg PO DAILY #30 tabs 01/25/20 bupropion HCl 300 mg 24 hr tablet, 300 mg PO DAILY #0 tabs 09/26/21 extended release clobetasol 0.05 % topical ointment 1 applic topical QAM AND QPM #60 09/30/22 grams nystatin 100,000 unit/gram topical 1 applic topical BID #60 grams 05/03/23 powder Allergies Allergy/AdvReac Type Severity Reaction Status Date / Time vancomycin Allergy Intermediate Flushing & Verified 10/12/23 15:56 rash <Man Read DO - Last Filed: 10/12/23 20:09> History of Present Illness HPI Narrative: Patient is a 73-year-old female. Is on Plavix. Is here for evaluation of a ground level fall with head injury. Patient states that she had a stroke in 2010 which left her with some right-sided deficits. She uses a walker at baseline. She does live at home by herself but has someone that comes in 3 times a week. He states that she was at her baseline state of health. Use the restroom. When she stood up from the restroom she was walking out of the bathroom and had a sudden onset of what she describes as vertigo. She did fall and hit her head. She does remember hitting her head. She was able to get off the floor on her own but it took her quite a bit of time. She went out to the living room and sat on the couch in the dizziness got worse. She was having quite a bit of nausea. A slight headache. Prior to the fall she did not have chest pain, shortness of breath, palpitations. No ringing in her ears. No sore throat. No abdominal pain. Here in the emergency department she does complain of a slight headache. She is still having quite a bit of vertigo. No extremity injuries. Review of Systems <Man Read DO - Last Filed: 10/12/23 20:09> Review of Systems ROS Unobtainable: All systems reviewed & are unremarkable except as noted in HPI and below Patient History <Brandy Chatterjee MD - Last Filed: 10/13/23 07:19> Medical History Enteritis Adrenal mass Neuropathy Acute kidney injury (~12/2018) Hypothyroid Vitamin D deficiency Easy bruisability Osteopenia Cardiomegaly ABIOLA on CPAP History of recurrent TIAs History of concussion Polyneuropathy Radiculopathy Migraine Depression with anxiety Hyperlipidemia associated with type 2 diabetes mellitus Morbid obesity with BMI of 45.0-49.9, adult History of stroke Type 2 diabetes mellitus Surgical History History of 3 sections History of lumbar spinal fusion (06/27/17) History of lumbar spinal fusion (11/26/19) History of ventral hernia repair Hx of umbilical hernia repair S/P cholecystectomy S/P trigger finger release Family History Mother Heart disease Father Heart disease Grandfather Diabetes mellitus Other Family history non-contributory Social History marital status: unknown household members: none Smoking Status: Never smoker alcohol intake: never substance use type: does not use Smoking Status: Never smoker alcohol intake frequency: 0-2 drinks per day Substance Use Type: does not use and painkillers Exam <Brandy Chatterjee MD - Last Filed: 10/13/23 07:19> Initial Vital Signs Initial Vital Signs: Vital Signs Temperature 98.8 F 10/12/23 15:51 Pulse Rate 92 H 10/12/23 15:51 Respiratory Rate 20 10/12/23 15:51 Blood Pressure 111/60 10/12/23 15:51 Pulse Oximetry 96 10/12/23 15:51 Oxygen Delivery Method Room Air 10/12/23 15:51 Const: Awake, alert, appears older than stated age, frail Eyes: PERRL, EOMI, conjunctiva normal ENT: Atraumatic, dentition normal, mucous membranes moist Cardiac: regular rate, regular rhythm RESP: unlabored, clear bilaterally, no wheezing GI: Atraumatic, soft, nontender MSK: Atraumatic, full range of motion, pulses equal Skin: Warm, Dry, intact, no rashes Neuro: AO x3, CN II-XII grossly intact, moves all extremities - unable to stand due to vertigo <Man Read DO - Last Filed: 10/12/23 20:09> Initial Vital Signs Initial Vital Signs: Vital Signs Temperature 98.8 F 10/12/23 15:51 Pulse Rate 92 H 10/12/23 15:51 Respiratory Rate 10/12/23 15:51 Blood Pressure 111/60 10/12/23 15:51 Pulse Oximetry 96 10/12/23 15:51 Oxygen Delivery Method Room Air 10/12/23 15:51 Const General: cooperative, comfortable and No ill appearing [facility] Head: contusion (Slight contusion above right eye), No hematoma and No laceration Face and sinus: normal facial exam Eyes EOM: EOM intact bilaterally Resp Effort & Inspection: normal respiratory effort Auscultation: clear to auscultation bilaterally Cardio Rate: regular rate Rhythm: regular rhythm GI Inspection: normal to inspection and non-distended Skin Other: Slight contusion above right eye Neuro General: patient alert, patient awake, patient oriented x3 and moves all extremities Speech: speech normal Sensory Exam: no sensory deficits noted Other: Patient is unable to stand at bedside. She does have ataxia. Unable to take a step even with assistance with a walker Extrem Other: No gross deformities. Sensation is unremarkable. Strength 5/5 upper and lower extremities when lying in bed Scores <Brandy Chatterjee MD - Last Filed: 10/13/23 07:19> GCS [place] coma scale total score: 15 <Man Read DO - Last Filed: 10/12/23 20:09> GCS [place] coma scale eye opening: Spontaneous [place] coma scale verbal response: Orientated [place] coma scale motor response: Obey commands Dil[place] coma scale total score: 15 Course <Brandy Chatterjee MD - Last Filed: 10/13/23 07:19> Orders Ordered: ED Orders 10/12/23 23:30 UA Complete [Urinalysis and Microscopic] Stat Acetaminophen (Acetaminophen 325 Mg Tablet) 650 mg PO Q6H PRN PRN Reason: Fever/Mild Pain (1-3) Hydrocodone Bitart/Acetaminophen (Hydrocodone/Acet 5/325 Tablet) 1 tab PO Q4H PRN PRN Reason: Pain, Severe (7-10) Last Admin: 10/13/23 00:15 Dose: 1 tab Documented By: Albuterol (Albuterol Hfa Mdi 60 Puff/8 Gm Inhaler) 2 puff INH Q6H PRN PRN Reason: Shortness Of Breath Aspirin (Aspirin Ec 81 Mg Tablet) 81 mg PO DAILY [facility] Bupropion HCl (Bupropion Xl 150 Mg Tab) 300 mg PO DAILY [facility] Clopidogrel Bisulfate (Clopidogrel 75 Mg Tablet) 75 mg PO DAILY [facility] Enoxaparin Sodium (Enoxaparin 40 Mg/0.4 Ml Syringe) 40 mg SUBCUT DAILY [facility] Gabapentin (Gabapentin 600 Mg Tablet) 800 mg PO TID PRN PRN Reason: neuropathy pain Ipratropium [place] (Ipratropium 0.5 Mg/2.5 Ml Neb) 0.5 mg INH Q4HRWA DANN Ipratropium [place] (Ipratropium 0.5 Mg/2.5 Ml Neb) 0.5 mg INH Q2H PRN PRN Reason: Shortness Of Breath Meclizine HCl (Meclizine Hcl 12.5 Mg Tablet) 25 mg PO TID [facility] Naloxone HCl (Naloxone 0.4 Mg/Ml Vial) 0.2 mg IV Q2MIN PRN PRN Reason: Opiate Reversal Non-Formulary Medication (Clobetasol) 1 applictn TOP BID [facility] Nystatin (Nystatin Powder 15gm) 1 applic TOP BID DANN Ondansetron HCl (Ondansetron 4 Mg/2 Ml Inj) 4 mg IV Q8HR PRN PRN Reason: Nausea And Vomiting Sertraline HCl (Sertraline 50 Mg Tablet) 100 mg PO DAILY [facility] Sumatriptan Succinate (Sumatriptan 6 Mg/0.5 Ml Vial) 6 mg SUBCUT Q8HR PRN PRN Reason: Headache Last Admin: 10/13/23 05:22 Dose: 6 mg Documented By: SH Verapamil HCl (Verapamil 80 Mg Tablet) 80 mg PO TID DANN Discontinued Medications Diazepam (Diazepam 10 Mg/2 Ml Syringe) 3 mg IV NOW ONE Stop: 10/12/23 17:31 Last Admin: 10/12/23 17:49 Dose: 3 mg Documented By: MPO Sodium Chloride (Normal Saline 0.9%) 1,000 mls @ 1,000 mls/hr IV BOLUS ONE Stop: 10/12/23 18:29 Last Infusion: 10/12/23 18:35 Dose: Infused Documented By: Admin: 10/12/23 17:42 Dose: 1,000 mls/hr Documented By: MPO Meclizine HCl (Meclizine Hcl 12.5 Mg Tablet) 25 mg PO NOW ONE Stop: 10/12/23 19:42 Last Admin: 10/12/23 19:46 Dose: 25 mg Documented By: BB Non-Formulary Medication (Tiotropium [place] [Spiriva Respimat]) 2 puff INHALATION DAILY [facility] Vital Signs Vital signs: Vital Signs - 8 hr 10/12/23 15:51 10/12/23 15:54 10/12/23 15:54 Temperature 98.8 F Pulse Rate 92 H 95 H Respiratory Rate 20 24 Blood Pressure 111/60 111/60 Pulse Oximetry 96 96 Oxygen Delivery Method Room Air 10/12/23 15:58 10/12/23 15:58 10/12/23 16:00 Temperature Pulse Rate 92 H 90 Respiratory Rate 17 17 Blood Pressure 116/61 Pulse Oximetry 96 97 Oxygen Delivery Method 10/12/23 16:15 10/12/23 16:30 10/12/23 16:46 Temperature Pulse Rate 97 H 90 95 H Respiratory Rate 22 16 22 Blood Pressure Pulse Oximetry 96 95 92 Oxygen Delivery Method 10/12/23 16:56 10/12/23 16:56 10/12/23 17:00 Temperature Pulse Rate 93 H 91 H Respiratory Rate 17 18 Blood Pressure 115/73 Pulse Oximetry 95 94 Oxygen Delivery Method 10/12/23 17:25 10/12/23 17:25 10/12/23 17:30 Temperature Pulse Rate 102 H 95 H Respiratory Rate 26 H 17 Blood Pressure 106/65 Pulse Oximetry 94 93 Oxygen Delivery Method 10/12/23 18:00 10/12/23 18:30 10/12/23 18:46 Temperature Pulse Rate 96 H 98 H Respiratory Rate 17 19 Blood Pressure 153/72 H Pulse Oximetry 87 L 89 L Oxygen Delivery Method Room Air 10/12/23 18:46 10/12/23 19:00 10/12/23 19:30 Temperature Pulse Rate 101 H 101 H 99 H Respiratory Rate 22 27 H 16 Blood Pressure Pulse Oximetry 93 95 92 Oxygen Delivery Method Room Air Room Air <Man Read DO - Last Filed: 10/12/23 20:09> Orders Ordered: ED Orders 10/12/23 23:30 UA Complete [Urinalysis and Microscopic] Stat Acetaminophen (Acetaminophen 325 Mg Tablet) 650 mg PO Q6H PRN PRN Reason: Fever/Mild Pain (1-3) Hydrocodone Bitart/Acetaminophen (Hydrocodone/Acet 5/325 Tablet) 1 tab PO Q4H PRN PRN Reason: Pain, Severe (7-10) Last Admin: 10/13/23 00:15 Dose: 1 tab Documented By: Albuterol (Albuterol Hfa Mdi 60 Puff/8 Gm Inhaler) 2 puff INH Q6H PRN PRN Reason: Shortness Of Breath Aspirin (Aspirin Ec 81 Mg Tablet) 81 mg PO DAILY [facility] Bupropion HCl (Bupropion Xl 150 Mg Tab) 300 mg PO DAILY [facility] Clopidogrel Bisulfate (Clopidogrel 75 Mg Tablet) 75 mg PO DAILY [facility] Enoxaparin Sodium (Enoxaparin 40 Mg/0.4 Ml Syringe) 40 mg SUBCUT DAILY [facility] Gabapentin (Gabapentin 600 Mg Tablet) 800 mg PO TID PRN PRN Reason: neuropathy pain Ipratropium [place] (Ipratropium 0.5 Mg/2.5 Ml Neb) 0.5 mg INH Q4HRWA [facility] Ipratropium [place] (Ipratropium 0.5 Mg/2.5 Ml Neb) 0.5 mg INH Q2H PRN PRN Reason: Shortness Of Breath Meclizine HCl (Meclizine Hcl 12.5 Mg Tablet) 25 mg PO TID [facility] Naloxone HCl (Naloxone 0.4 Mg/Ml Vial) 0.2 mg IV Q2MIN PRN PRN Reason: Opiate Reversal Non-Formulary Medication (Clobetasol) 1 applictn TOP BID [facility] Nystatin (Nystatin Powder 15gm) 1 applic TOP BID DANN Ondansetron HCl (Ondansetron 4 Mg/2 Ml Inj) 4 mg IV Q8HR PRN PRN Reason: Nausea And Vomiting Sertraline HCl (Sertraline 50 Mg Tablet) 100 mg PO DAILY [facility] Sumatriptan Succinate (Sumatriptan 6 Mg/0.5 Ml Vial) 6 mg SUBCUT Q8HR PRN PRN Reason: Headache Last Admin: 10/13/23 05:22 Dose: 6 mg Documented By: SH Verapamil HCl (Verapamil 80 Mg Tablet) 80 mg PO TID [facility] Discontinued Medications Diazepam (Diazepam 10 Mg/2 Ml Syringe) 3 mg IV NOW ONE Stop: 10/12/23 17:31 Last Admin: 10/12/23 17:49 Dose: 3 mg Documented By: MILLIE Sodium Chloride (Normal Saline 0.9%) 1,000 mls @ 1,000 mls/hr IV BOLUS ONE Stop: 10/12/23 18:29 Last Infusion: 10/12/23 18:35 Dose: Infused Documented By: Admin: 10/12/23 17:42 Dose: 1,000 mls/hr Documented By: MPO Meclizine HCl (Meclizine Hcl 12.5 Mg Tablet) 25 mg PO NOW ONE Stop: 10/12/23 19:42 Last Admin: 10/12/23 19:46 Dose: 25 mg Documented By: BB Non-Formulary Medication (Tiotropium [place] [Spiriva Respimat]) 2 puff INHALATION DAILY [facility] Vital Signs Vital signs: Vital Signs - 8 hr 10/12/23 15:51 10/12/23 15:54 10/12/23 15:54 Temperature 98.8 F Pulse Rate 92 H 95 H Respiratory Rate 20 24 Blood Pressure 111/60 111/60 Pulse Oximetry 96 96 Oxygen Delivery Method Room Air 10/12/23 15:58 10/12/23 15:58 10/12/23 16:00 Temperature Pulse Rate 92 H 90 Respiratory Rate 17 17 Blood Pressure 116/61 Pulse Oximetry 96 97 Oxygen Delivery Method 10/12/23 16:15 10/12/23 16:30 10/12/23 16:46 Temperature Pulse Rate 97 H 90 95 H Respiratory Rate 22 16 22 Blood Pressure Pulse Oximetry 96 95 92 Oxygen Delivery Method 10/12/23 16:56 10/12/23 16:56 10/12/23 17:00 Temperature Pulse Rate 93 H 91 H Respiratory Rate 17 18 Blood Pressure 115/73 Pulse Oximetry 95 94 Oxygen Delivery Method 10/12/23 17:25 10/12/23 17:25 10/12/23 17:30 Temperature Pulse Rate 102 H 95 H Respiratory Rate 26 H 17 Blood Pressure 106/65 Pulse Oximetry 94 93 Oxygen Delivery Method 10/12/23 18:00 10/12/23 18:30 10/12/23 18:46 Temperature Pulse Rate 96 H 98 H Respiratory Rate 17 19 Blood Pressure 153/72 H Pulse Oximetry 87 L 89 L Oxygen Delivery Method Room Air 10/12/23 18:46 10/12/23 19:00 10/12/23 19:30 Temperature Pulse Rate 101 H 101 H 99 H Respiratory Rate 22 27 H 16 Blood Pressure Pulse Oximetry 93 95 92 Oxygen Delivery Method Room Air Room Air MDM - Fall <Brandy Chatterjee MD - Last Filed: 10/13/23 07:19> Lab Data 10/13/23 05:06 10/13/23 05:06 Labs: Lab Results 10/12/23 Range/Units 16:35 WBC 6.6 (4.5-11.0) X10^3/uL RBC 4.16 (4.0-5.2) X10^6/uL Hgb 12.5 (12.0-16.0) g/dL Hct 38.3 (36-46) % MCV 92.0 (80-100) fL MCH 29.9 (26-34) PG MCHC 32.5 (30-36) % RDW 14.2 (11.6-14.8) % Plt Count 284 (150-400) X10^3/uL Neut % (Auto) 69.1 (50-75) % Lymph % (Auto) 18.4 L (25-40) % [place] % (Auto) 9.1 (3-14) % Eos % (Auto) 2.7 (2-4) % Baso % (Auto) 0.7 (0-2) % Neut # (Auto) 4500 (9838-1904) /uL Lymph # (Auto) 1200 (9710-1056) /uL [place] # (Auto) 600 (0-900) /uL Eos # (Auto) 200 (0-450) /uL Baso # (Auto) 0 (0-100) /uL Sodium 138 (137-145) mmol/L Potassium 4.4 (3.4-5.1) mmol/L Chloride 104 (98-107) mmol/L Carbon Dioxide 26 (22-32) mmol/L BUN 28 H (7-17) mg/dL Creatinine 1.01 (0.52-1.04) mg/dL Estimated GFR 60 (>60) mL/min BUN/Creatinine Ratio 27.7 H (6-22) Glucose 114 H (80-110) mg/dL Calcium 9.3 (8.4-10.2) mg/dL Total Bilirubin 0.5 (0.2-1.3) mg/dL AST 23 (14-36) IU/L ALT 18 (<35) IU/L Alkaline Phosphatase 73 (38-126) U/L Total Protein 7.3 (6.3-8.2) g/dL Albumin 3.6 (3.5-5.0) g/dL Globulin 3.7 (1.7-4.1) g/dL Albumin/Globulin Ratio 1.0 (1.0-2.8) Point of Care Testing Glucose POC 117 <Man Read DO - Last Filed: 10/12/23 20:09> Lab Data Attestation: I reviewed the patient's lab results. Labs: Lab Results 10/12/23 Range/Units 16:35 WBC 6.6 (4.5-11.0) X10^3/uL RBC 4.16 (4.0-5.2) X10^6/uL Hgb 12.5 (12.0-16.0) g/dL Hct 38.3 (36-46) % MCV 92.0 (80-100) fL MCH 29.9 (26-34) PG MCHC 32.5 (30-36) % RDW 14.2 (11.6-14.8) % Plt Count 284 (150-400) X10^3/uL Neut % (Auto) 69.1 (50-75) % Lymph % (Auto) 18.4 L (25-40) % [place] % (Auto) 9.1 (3-14) % Eos % (Auto) 2.7 (2-4) % Baso % (Auto) 0.7 (0-2) % Neut # (Auto) 4500 (8173-4877) /uL Lymph # (Auto) 1200 (4102-0613) /uL [place] # (Auto) 600 (0-900) /uL Eos # (Auto) 200 (0-450) /uL Baso # (Auto) 0 (0-100) /uL Sodium 138 (137-145) mmol/L Potassium 4.4 (3.4-5.1) mmol/L Chloride 104 (98-107) mmol/L Carbon Dioxide 26 (22-32) mmol/L BUN 28 H (7-17) mg/dL Creatinine 1.01 (0.52-1.04) mg/dL Estimated GFR 60 (>60) mL/min BUN/Creatinine Ratio 27.7 H (6-22) Glucose 114 H (80-110) mg/dL Calcium 9.3 (8.4-10.2) mg/dL Total Bilirubin 0.5 (0.2-1.3) mg/dL AST 23 (14-36) IU/L ALT 18 (<35) IU/L Alkaline Phosphatase 73 (38-126) U/L Total Protein 7.3 (6.3-8.2) g/dL Albumin 3.6 (3.5-5.0) g/dL Globulin 3.7 (1.7-4.1) g/dL Albumin/Globulin Ratio 1.0 (1.0-2.8) Point of Care Testing Glucose POC [address] scan - head: Radiologist's Impression: PROCEDURE: CT HEAD/BRAIN WO CON INDICATIONS: GLF/HEAD INJURY ON PLAVIX TECHNIQUE: Noncontrast 4.5 mm thick angled axial sections acquired from the foramen magnum to the vertex, with coronal and sagittal reformats. For radiation dose reduction, the following was used: automated exposure control, adjustment of mA and/or kV according to patient size. COMPARISON: [facility], CT, CT HEAD/BRAIN WO CON, 10/26/2021, 15:47. FINDINGS: Image quality: Diagnostic. CSF spaces: Basal cisterns are patent. No extra-axial fluid collections. The ventricles are symmetric in size and shape. Brain: No intracranial bleeds or masses. Small chronic bilateral frontal lobe infarcts are present, as before. There is cerebral volume loss for age, with resultant ventricular and sulcal prominence. There are periventricular and deep white matter chronic small vessel ischemic changes. There is intracranial internal carotid artery atherosclerosis. Skull and face: Calvarium and visualized facial bones appear intact, without suspicious lesions. Sinuses: Visualized sinuses and mastoids are clear. IMPRESSION: No acute intracranial pathology. CT - cervical spine: Radiologist's Impression: PROCEDURE: CT CERVICAL SPINE WO CON INDICATIONS: GLF/HEAD INJURY TECHNIQUE: Noncontrast 3 mm thick sections acquired from the skull base to the T4 level. Sagittal and coronal reformats were then constructed. For radiation dose reduction, the following was used: automated exposure control, adjustment of mA and/or kV according to patient size. COMPARISON: [facility], CT, C-SPINE WITHOUT CONTRAST, 08/02/2017, 18:45. FINDINGS: Image quality: Excellent. Bones: No fractures or dislocations. Visualized superior ribs are intact. Soft tissues: Prevertebral soft tissues are normal in thickness. No paravertebral hematomas. No apical pneumothoraces. IMPRESSION: No acute fracture. No osseous lesion. If symptoms and/or clinical suspicion for pathology persist, further assessment with MRI or bone scan may be helpful for further assessment. ECG Data Attestation: I personally reviewed and interpreted this ECG as follows: Interpretation: Sinus rhythm Ventricular rate 98 Normal axis Normal QRS Normal QTC No ST T wave changes MDM Narrative Medical decision making narrative: Dr Read: Received turned over. Patient was initially seen by Dr. Chatterjee who ordered the initial workup. Head CT and cervical spine CT are unremarkable. She has no extremity injuries. She was given fluids and meclizine. Patient was essentially unable to stand at bedside both because of weakness and unsteadiness but also worsening of the vertigo when she stands up. This did not improve with Valium. She has had vertigo in the past but states this is worse than what it normally is. She thinks that maybe it did get worse after she would her head. The patient is unsafe for discharge home given her instability. Discussed the case with Dr. Mcfadden hospitalist on-call. We will admit for observation for vertigo and concussion. Patient expressed understanding and agreement. Discharge Plan Departure Patient Disposition: Admitted as Observation Clinical Impression: Vertigo, Concussion, Closed head injury Admit Date/Time: 10/12/23 19:42 Admit Provider: Vinny Mcfadden
[2023-10-12 16:42] LABS: Add Manual Diff / Slide Review NO; Basophils Absolute Auto 0 /uL (0-100); Basophils Percent Auto 0.7 % (0-2); Eosinophils Absolute Auto 200 /uL (0-450); Eosinophils Percent Auto 2.7 % (2-4); Hematocrit 38.3 % (36-46); Hemoglobin 12.5 g/dL (12.0-16.0); Lymphocytes Absolute Auto 1200 /uL (1100-4500); Lymphocytes Percent Auto 18.4 % (25-40); Mean Corpuscular HGB Conc 32.5 % (30-36); Mean Corpuscular Hemoglobin 29.9 PG (26-34); Monocytes Absolute Auto 600 /uL (0-900); Monocytes Percent Auto 9.1 % (3-14); Neutrophils Absolute Auto 4500 /uL (1500-7000); Neutrophils Percent Auto 69.1 % (50-75); Platelet Count 284 X10^3/uL (150-400); Red Blood Cell Count 4.16 X10^6/uL (4.0-5.2); Red Cell Distribution Width 14.2 % (11.6-14.8); White Blood Cell Count 6.6 X10^3/uL (4.5-11.0)
[2023-10-12 16:48] LABS: Alanine Aminotransferase 18 IU/L (<35); Albumin 3.6 g/dL (3.5-5.0); Alkaline Phosphatase 73 U/L (38-126); Aspartate Aminotransferase 23 IU/L (14-36); BUN Creatinine Ratio 27.7 (6-22); Bilirubin Total 0.5 mg/dL (0.2-1.3); Blood Urea Nitrogen 28 mg/dL (7-17); Calcium 9.3 mg/dL (8.4-10.2); Carbon Dioxide 26 mmol/L (22-32); Chloride 104 mmol/L (98-107); Estimated Glomerular Filt Rate 60 mL/min (>60); Globulin 3.7 g/dL (1.7-4.1); Glucose 114 mg/dL (80-110); HEMOLYSIS < 15 (0-50); Potassium 4.4 mmol/L (3.4-5.1); Sodium 138 mmol/L (137-145); Total Protein 7.3 g/dL (6.3-8.2)
--- NOTE | 2023-10-12 16:57 | PC.NURSE ---
Pt states that she is keeping her eyes closed because she keeps getting blurry double vision.
--- NOTE | 2023-10-12 17:25 | PC.NURSE ---
Attempted to get pt out of bed for ambulation trial. Pt sat at the edge of the bed and began to feel extremely dizzy and lightheaded and reported that she felt like the room was spinning. Pt also noted that she had blurry vision.
[2023-10-12] MEDS: SODIUM CHLORIDE 0.9% 1,000 ML 1000 ML IV (17:42)
[2023-10-12] MEDS: diazePAM 10 MG/2 ML SYRINGE 3 MG IV (17:49)
--- NOTE | 2023-10-12 18:05 | PC.NURSE ---
Pt o2 sat dropped down to 89% with good pleth. Pt sleeping and stated that she has hx of COPD and it is not uncommon for her to drop down to 88-89%. Pt does not us o2 at home.
--- NOTE | 2023-10-12 18:48 | PC.NURSE ---
Pt up to bedside commode with two person assist. Pt stated that she started feeling very dizzy and had difficulty finding words. Unable to produce urine.
[2023-10-12] MEDS: MECLIZINE HCL 12.5 MG TABLET 25 MG PO (19:46)
--- NOTE | 2023-10-12 23:27 | DI.US.S_ITS ---
PROCEDURE: US CAROTID DOPPLER BI INDICATIONS: near syncope TECHNIQUE: Color and pulse Doppler interrogation was performed of both carotid systems, with image documentation and velocity measurements. COMPARISON: None. FINDINGS: Stenosis calculations are based on SRU (Society of Radi[employer] in Ultras[employer]) criteria. Right side: Brachial blood pressure: 152 mm Hg. Common carotid artery peak systolic velocity: 71 cm/sec. Internal carotid artery peak systolic velocity: 87 cm/sec. Internal carotid artery end diastolic velocity: 13 cm/sec. External carotid artery peak systolic velocity: 79 cm/sec. ICA/CCA peak systolic ratio: 1.2 . Beavers scale imaging description: Minimal plaque Percent internal carotid artery stenosis: Less than 50 percent stenosis . Vertebral artery: Flow direction is antegrade. Left side: Brachial blood pressure: 152 mm Hg. Common carotid artery peak systolic velocity: 60 cm/sec. Internal carotid artery peak systolic velocity: 74 cm/sec. Internal carotid artery end diastolic velocity: 17 cm/sec. External carotid artery peak systolic velocity: 69 cm/sec. ICA/CCA peak systolic ratio: 1.2 . Beavers scale imaging description: Minimal plaque Percent internal carotid artery stenosis: Less than 50 percent stenosis . Vertebral artery: Flow direction is antegrade. IMPRESSION: Bilateral internal carotid arteries demonstrate less than 50% stenosis. Dictated by: Jhoan Phillips M.D. on 10/13/2023 at 8:58 Approved by: Jhoan Phillips M.D. on 10/13/2023 at 9:00
--- NOTE | 2023-10-12 23:29 | DI.ECHO.S_ITS ---
[facility] +---------+ : : [address] : : : : [id number] : : : : Phone: [phone]+ Echocardiogram Report + + :Name: SUSAN MCFADDEN Study Date: 10/13/2023 Height: 64.5 in: :[facility] ReadingLocation: Weight: 263 lb : : Gender: Female BSA: 2.2 m2 : :: 1950 Age: 73 yrs BP: 145/63 mmHg: :Reason For Study: SYNCOPE : :Ordering Physician: RICHIE, : :ANDRÉS Blackwell MD Performed By: Yumiko Valdez : :Referring: ANDRÉS QUIROZ MD : + + Interpretation Summary The left ventricle is normal in size and wall thickness. The left ventricular ejection fraction is normal. The ejection fraction is estimated to be 60-65%. The right ventricle is grossly normal size. The right ventricular systolic function is normal. There is moderate to severe mitral annular calcification. There is mild mitral regurgitation. There is mild mitral stenosis. The mitral valve mean gradient is 4.3 mmHg. There is mild tricuspid regurgitation. The right ventricular systolic pressure is estimated to be at least 27 mmHg based on an estimated right atrial pressure of 3 mm Hg. Compared to the prior echo exam, there has been no change in TR severity. Compared to the prior echo exam, there has been a decrease in the severity of pulmonary hypertension. Procedure: A two-dimensional transthoracic echocardiogram with color flow and Doppler was performed. The study quality was technically difficult. Comparison is made with the echocardiogram of 09/25/2021. A contrast injection of Definity was performed to improve assessment of LV function. The heart rate ranged between 77-88 bpm during the study. Left Ventricle: The left ventricle is normal in size and wall thickness. There is no thrombus. The ejection fraction is estimated to be 60-65%. The left ventricular ejection fraction is normal. There are no focal wall motion abnormalities. MV E/A: 0.88 Med Peak E' Rudy: 6.0 cm/sec E/E' med: 18.7. Right Ventricle: The right ventricle is grossly normal size. The right ventricle is not well visualized. The right ventricular systolic function is normal. Atria: The left atrium is mildly dilated. There has been no significant change since the previous study. Right atrial size is normal. There is no Doppler evidence for an interatrial shunt. Mitral Valve: There is a flat closure plane of the the mitral valve leaflets. The mitral valve leaflets are mildly calcified. There is moderate to severe mitral annular calcification. There is mild mitral stenosis. The mitral valve mean gradient is 4.3 mmHg. There is mild mitral regurgitation. Aortic Valve: The aortic valve is grossly normal. The aortic valve opens well. The aortic valve is mildly calcified. There is no aortic valve stenosis. No aortic regurgitation is present. Tricuspid Valve: The tricuspid valve is not well visualized, but is grossly normal. There is mild tricuspid regurgitation. The right ventricular systolic pressure is estimated to be at least 27 mmHg based on an estimated right atrial pressure of 3 mm Hg. Compared to the prior echo exam, there has been no change in TR severity. Compared to the prior echo exam, there has been a decrease in the severity of pulmonary hypertension. Pulmonic Valve: The pulmonic valve is not well seen, but is grossly normal. There is mild pulmonic regurgitation. Great Vessels: The aortic root is normal size. The dimensions of the ascending aorta are normal. The IVC is of normal diameter and collapses greater than 50% with a sniff. This suggests a low right atrial pressure of 3 mm Hg. Pericardium/ Pleura There is no pericardial effusion. There is no pleural effusion. MMode/2D Measurements & Calculations LVIDd: 4.5 cm LVOT diam: 2.0 cm LVIDs: 2.9 cm Ao root diam: 3.0 cm FS: 34.9 % asc Aorta Diam: 3.0 cm IVSd: 0.86 cm LVPWd: 0.79 cm LV kiran. diameter/BSA (cm/m^2): 2.0 LV sys. diameter/BSA (cm/m^2): 1.3 LA A2 area: 23.3 cm2 RA long axis: 4.5 cm LA A4 area: 29.7 cm2 RA area: 15.8 cm2 LA length (vol): 7.3 cm RA vol: 47.0 ml LA vol: 80.2 ml RA : 21.2 ml/m2 LA vol index: 36.3 ml/m2 IVC diam: 1.3 cm TAPSE: 2.4 cm Doppler Measurements & Calculations Ao V2 max: 150.3 cm/sec LVOT Max Rudy: 103.2 cm/sec Ao V2 mean: 104.4 cm/sec LV V1 max P.3 mmHg Ao max P.0 mmHg LV V1 VTI: 21.5 cm Ao mean P.9 mmHg ADOLPH(I,D): 2.2 cm2 Ao V2 VTI: 29.8 cm ADOLPH(V,D): 2.1 cm2 sev ratio: 0.72 ADOLPH indexed to BSA (cm^2/m^2): 1.0 MV E max rudy: 111.8 cm/sec TR max rudy: 243.3 cm/sec MV A max rudy: 127.2 cm/sec TR max P.7 mmHg MV E/A: 0.88 PA V2 max: 113.0 cm/sec Med Peak E' Rudy: 6.0 cm/sec PA V2 mean: 83.2 cm/sec E/E' med: 18.7 PA mean P.0 mmHg Lat Peak E' Rudy: 4.3 cm/sec PA pr(Accel): 48.2 mmHg E/E' lat: 26.0 E/e' average: 22.4 MV dec time: 0.38 sec MVA(VTI): 1.6 cm2 MV V2 mean: 96.6 cm/sec SV(LVOT): 66.1 ml MV mean P.3 mmHg MV V2 VTI: 40.6 cm Reading Physician:01:39 PM
[2023-10-12 23:54] LABS: Appearance Urine UA SL CLOUDY; Bilirubin Urine UA NEGATIVE (NEGATIVE); Color Urine UA YELLOW; Glucose Urine UA NEGATIVE (Negative); Ketones Urine UA NEGATIVE (NEGATIVE); Leukocyte Esterase Urine UA TRACE (NEGATIVE); Nitrite Urine UA POSITIVE (Negative); Occult Blood Urine UA NEGATIVE (Negative); Protein Urine UA NEGATIVE (Negative); Specific Gravity Urine UA 1.025 (1.000-1.035); Urobilinogen Urine UA 0.2 E.U./dL (0.2)
[2023-10-13] VITALS (17 sets, daily range): BP systolic 134–157; BP diastolic 60–92; PULSE 83–96; RESP 16–18; TEMP 35.8–36.3; O2SAT 92–100
[2023-10-13 00:05] LABS: Bacteria Urine Many (>30); Culture Indicated Urine Specimen Cultured; RBC Urine None Seen (0-5/HPF); Squamous Epithelial Cell Urine None Seen (0-5/HPF); WBC Urine 0-1/HPF (0-5/HPF)
[2023-10-13] MEDS: HYDROCODONE/ACET 5/325 TABLET 1 TAB PO (00:15)
--- NOTE | 2023-10-13 00:51 | P.HP_ITS ---
History of Present Illness History of Present Illness Date Patient Seen: 10/12/23 Time Patient Seen: 22:30 Chief complaint: GLF, Head Injury Narrative: 73 years old female with a past medical history of diabetes mellitus type 2, COPD, hypertension, CVA with right-sided deficit and multiple other medical issues was brought to the emergency room for dizziness with near syncopal event. Apparently patient had been to the restroom and going back to bed when she felt intensely dizzy and nearly passed out. There was some conflicting history with initial reports of syncopal event but now patient reports that she did not completely pass out. Feels very dizzy especially when moving or standing up and the room is spinning. Does have headache mostly in the right frontal region. Denies any new onset blurry vision. No ringing sensation in the ears. Denies any chest pain or shortness of breath. Denies any cough wheezing headache or upper respiratory symptoms. CT scan of the head and cervical spine shows no acute process. EKG shows no significant ST-T wave changes. Denies any nausea or vomiting. Denies abdominal pain. Patient was given a dose of Valium and admitted with a presumptive diagnosis of vertigo not responding to conservative management [facility] Medical History Enteritis Adrenal mass Neuropathy Acute kidney injury (~12/2018) Hypothyroid Vitamin D deficiency Easy bruisability Osteopenia Cardiomegaly ABIOLA on CPAP History of recurrent TIAs History of concussion Polyneuropathy Radiculopathy Migraine Depression with anxiety Hyperlipidemia associated with type 2 diabetes mellitus Morbid obesity with BMI of 45.0-49.9, adult History of stroke Type 2 diabetes mellitus Surgical History History of 3 sections History of lumbar spinal fusion (06/27/17) History of lumbar spinal fusion (11/26/19) History of ventral hernia repair Hx of umbilical hernia repair S/P cholecystectomy S/P trigger finger release Family History Mother Heart disease Father Heart disease Grandfather Diabetes mellitus Other Family history non-contributory Social History marital status: unknown household members: none Smoking Status: Never smoker alcohol intake: never substance use type: does not use Meds Home Medications and Allergies Home Medications Medication Instructions Recorded Confirmed Type metformin 500 mg tablet 1,000 mg PO BID 02/02/18 10/13/23 History gabapentin 600 mg tablet 800 mg PO TID PRN pain 04/19/18 10/12/23 History clopidogrel 75 mg tablet 75 mg PO DAILY #30 tabs 01/25/20 10/12/23 Rx sertraline 100 mg tablet 100 mg PO DAILY 09/24/21 10/13/23 History bupropion HCl 300 mg 24 hr tablet, 300 mg PO DAILY #0 tabs 09/26/21 10/12/23 Rx extended release albuterol sulfate 90 mcg/actuation 2 puff inhalation Q6H PRN 10/26/21 10/12/23 History aerosol inhaler (Ventolin HFA) Shortness Of Breath sumatriptan succinate 6 mg/0.5 mL 6 mg SUBCUT Q8HR PRN Headache 10/26/21 10/13/23 History subcutaneous pen injector tiotropium bromide 1.25 2 puff inhalation DAILY 10/26/21 10/13/23 History mcg/actuation mist for inhalation (Spiriva Respimat) verapamil 80 mg tablet 80 mg PO TID 10/26/21 10/13/23 History clobetasol 0.05 % topical ointment 1 applic topical QAM AND QPM #60 09/30/22 10/12/23 Rx grams nystatin 100,000 unit/gram topical 1 applic topical BID #60 grams 05/03/23 10/13/23 Rx powder Allergies Allergy/AdvReac Type Severity Reaction Status Date / Time vancomycin Allergy Intermediate Flushing & Verified 10/12/23 15:56 rash Review of Systems Review of Systems Narrative: 12 point review of system is negative unless otherwise stated in history of present illness Exam Vital Signs (past 8 hours): - 10/12/23 16:56 10/12/23 16:56 10/12/23 17:00 Temperature Pulse Rate 93 H 91 H Respiratory Rate 17 18 Blood Pressure 115/73 Pulse Oximetry 95 94 Oxygen Delivery Method Oxygen Flow Rate 10/12/23 17:25 10/12/23 17:25 10/12/23 17:30 Temperature Pulse Rate 102 H 95 H Respiratory Rate 26 H 17 Blood Pressure 106/65 Pulse Oximetry 94 93 Oxygen Delivery Method Oxygen Flow Rate 10/12/23 18:00 10/12/23 18:30 10/12/23 18:46 Temperature Pulse Rate 96 H 98 H Respiratory Rate 17 19 Blood Pressure 153/72 H Pulse Oximetry 87 L 89 L Oxygen Delivery Method Room Air Oxygen Flow Rate 10/12/23 18:46 10/12/23 19:00 10/12/23 19:30 Temperature Pulse Rate 101 H 101 H 99 H Respiratory Rate 22 27 H 16 Blood Pressure Pulse Oximetry 93 95 92 Oxygen Delivery Method Room Air Room Air Oxygen Flow Rate 10/12/23 19:48 10/12/23 20:00 10/12/23 20:04 Temperature Pulse Rate 96 H 96 H Respiratory Rate 16 20 Blood Pressure 154/65 H Pulse Oximetry 92 93 Oxygen Delivery Method Room Air Room Air Oxygen Flow Rate 10/12/23 20:04 10/12/23 20:05 10/12/23 20:05 Temperature Pulse Rate 99 H Respiratory Rate 23 Blood Pressure 154/65 H 142/69 H Pulse Oximetry 93 Oxygen Delivery Method Room Air Oxygen Flow Rate 10/12/23 20:07 10/12/23 20:07 10/12/23 20:08 Temperature Pulse Rate 101 H Respiratory Rate 26 H Blood Pressure 145/81 H 137/82 Pulse Oximetry 93 Oxygen Delivery Method Oxygen Flow Rate 10/12/23 20:08 10/12/23 20:30 10/12/23 21:00 Temperature Pulse Rate 101 H 96 H 95 H Respiratory Rate 21 19 18 Blood Pressure Pulse Oximetry 93 90 L 92 Oxygen Delivery Method Oxygen Flow Rate 10/12/23 21:15 Temperature 98.1 F Pulse Rate 97 H Respiratory Rate 20 Blood Pressure 145/79 H Pulse Oximetry 94 Oxygen Delivery Method Oxygen Flow Rate 0 Oxygen Delivery Method Room Air Oxygen Flow Rate 0 Narrative Exam Narrative: Patient is awake alert and able to give a decent history. No acute distress Objective Labs 10/12/23 16:35 10/12/23 16:35 Labs: Laboratory Results - last 24 hr 10/12/23 10/12/23 16:35 23:30 WBC 6.6 RBC 4.16 Hgb 12.5 Hct 38.3 MCV 92.0 MCH 29.9 MCHC 32.5 RDW 14.2 Plt Count 284 Neut % (Auto) 69.1 Lymph % (Auto) 18.4 L [place] % (Auto) 9.1 Eos % (Auto) 2.7 Baso % (Auto) 0.7 Neut # (Auto) 4500 Lymph # (Auto) 1200 [place] # (Auto) 600 Eos # (Auto) 200 Baso # (Auto) 0 Sodium 138 Potassium 4.4 Chloride 104 Carbon Dioxide 26 BUN 28 H Creatinine 1.01 Estimated GFR 60 BUN/Creatinine Ratio 27.7 H Glucose 114 H Calcium 9.3 Total Bilirubin 0.5 AST 23 ALT 18 Alkaline Phosphatase 73 Total Protein 7.3 Albumin 3.6 Globulin 3.7 Albumin/Globulin Ratio 1.0 Urine Color Yellow Urine Appearance Sl cloudy Urine pH 6.0 Ur Specific [place] 1.025 Urine Protein Negative Urine Glucose (UA) Negative Urine Ketones Negative Urine Occult Blood Negative Urine Nitrate Positive H Urine Bilirubin Negative Urine Urobilinogen 0.2 Ur Leukocyte Esterase Trace H Urine RBC None seen Urine WBC 0-1/hpf Ur Squamous Epith Cells None seen Urine Bacteria Many (>30) H Ur Culture Indicated? Specimen cultured Assessment & Plan Assessment & Plan narrative: 73 years old female with a past medical history of diabetes mellitus type 2, COPD, hypertension, CVA with right-sided deficit and multiple other medical issues was brought to the emergency room for dizziness with near syncopal event. Apparently patient had been to the restroom and going back to bed when she felt intensely dizzy and nearly passed out. There was some conflicting history with initial reports of syncopal event but now patient reports that she did not completely pass out. Feels very dizzy especially when moving or standing up and the room is spinning. Does have headache mostly in the right frontal region. Denies any new onset blurry vision. No ringing sensation in the ears. Denies any chest pain or shortness of breath. Denies any cough wheezing headache or upper respiratory symptoms. CT scan of the head and cervical spine shows no acute process. EKG shows no significant ST-T wave changes. Denies any nausea or vomiting. Denies abdominal pain. Patient was given a dose of Valium and admitted with a presumptive diagnosis of vertigo not responding to conservative management 1. Dizziness worse with movements appears more of vertigo based on the history. May also need to check for vertebrobasilar insufficiency given the history of CVA. Will order a CT angio of the head and neck and initiate meclizine 25 mg every 8 hours as needed. Consult physical therapy to check if Luci maneuver may be of benefit. Monitor in the telemetry. Follow-up with an echocardiogram and watch for orthostatic blood pressures 2. Diabetes mellitus type 2. Will need to verify the home medications and in the meantime check blood sugars ACHS with sliding scale. Check an A1c level. Hold metformin if CT contrast is being used 3 COPD appears to be chronic and stable 4 hypertension resume the home verapamil and watch the blood pressure closely 5 DVT prophylaxis will be with Lovenox 6. Chronic back pain at baseline Goals of care reviewed and patient has requested DNR status Patient will be admitted under observation status Patient was evaluated with alpha-beta communication device. Provider is located in [facility]
--- NOTE | 2023-10-13 00:55 | DI.CT.S_ITS ---
PROCEDURE: CT ANGIO HEAD AND NECK INDICATIONS: dizziness/ history of cva TECHNIQUE: After the administration of intravenous contrast, 1 mm thick sections acquired from the aortic arch through the [place]. 3-dimensional xhzvpfd-ikpicazrs-qldqzjrncy (MIP) and/or volume rendering reformats were acquired of the central intracranial vasculature and neck separately. For radiation dose reduction, the following was used: automated exposure control, adjustment of mA and/or kV according to patient size. COMPARISON: [facility], CT, CT ANGIO HEAD AND NECK, 06/24/2022, 7:59. [facility], CT, CT HEAD/BRAIN WO CON, 10/12/2023, 16:34. FINDINGS: Image quality: Diagnostic. BRAIN: No change from separately dictated CT brain report of 10/12/2023. HEAD CT ANGIOGRAPHY: Anterior circulation: Intracranial internal carotid arteries are normal in size and flow. Mild supraclinoid atherosclerotic calcifications are present without hemodynamically significant stenosis. There is hypoplasia/a place a of the right A1 segment with the A2 segment supplied by the posterior communicating artery. This is consistent with congenital variation. The flow within the middle cerebral arteries is normal and symmetric. The anterior communicating artery is seen. No aneurysms are seen. As identified on previous exam, at the cisterna magna/cervical medullary junction there is a tangle of vessels with mild appearance of poststenotic dilatation. Appearance is unchanged. Posterior circulation: Visualized portions of the vertebral arteries demonstrate normal caliber, and join to form a normal appearing basilar artery. Flow within the posterior cerebral arteries is normal and symmetric. No aneurysms are seen. NECK CT ANGIOGRAPHY: Carotid system: The great vessels demonstrate a conventional anatomy as they arise from the aortic arch. The origins of the common carotid arteries appear patent. The common carotid arteries demonstrate normal caliber and courses. The bifurcation regions are both widely patent. The internal carotid arteries demonstrate normal calibers and courses. Posterior circulation: The origins of the vertebral arteries both appear widely patent. The more superior extracranial portions of both vertebral arteries also demonstrate normal courses and calibers. They join to form a normal appearing basilar artery. Soft tissues: Visualized neck soft tissues demonstrate no suspicious abnormalities. Bones: No suspicious bony lesions. Visualized cervical spine appears normally aligned. IMPRESSION: Stable interval exam compared to 06/24/2022. No areas of hemodynamically significant stenosis, vascular occlusion or aneurysmal dilation within the anterior circulation. No areas of hemodynamically significant stenosis, vascular occlusion or aneurysmal dilation within the posterior circulation. No areas of hemodynamically significant stenosis, vascular occlusion or aneurysmal dilation within the neck vasculature. Unchanged appearance of vessels at the cervical medullary junction which may represent vascular anomaly such as dural AVM. Any quantitative measurements of stenosis were performed using NASCET criteria. Dictated by: Justine Dickens M.D. on 10/13/2023 at 14:43 Approved by: Justine Dickens M.D. on 10/13/2023 at 14:50
--- NOTE | 2023-10-13 01:33 | PC.WOUNDPHOT ---
Addendum entered by Khalida Abrams R.N. 10/13/23 01:34: small bruise above right eyebrow. Original Note:
--- NOTE | 2023-10-13 01:36 | PC.ADMIT ---
Addendum entered by Khalida Abrams R.N. 10/13/23 01:38: Patient uses CPAP, received order from Dr. Mcfadden for CPAP, placed by RT. Original Note: [address]ha [address] Dr [id number] Admission Note: Patient admitted to AC unit from ED at 21:15, transferred via stretcher. Alert and oriented x 4, pleasant and cooperative. Oriented to room and call light. Bed in low and locked position, bed alarm on and call light within reach. The patient,Bushra Desai,73 y/o, was given written information regarding hospital policies, unit procedures and contact persons. Patient's smoking status: Never smoker. Vital Signs - 8 hr 10/12/23 18:00 10/12/23 18:30 10/12/23 18:46 Temperature Pulse Rate 96 H 98 H Respiratory Rate 17 19 Blood Pressure 153/72 H Pulse Oximetry 87 L 89 L Oxygen Delivery Method Room Air Oxygen Flow Rate 10/12/23 18:46 10/12/23 19:00 10/12/23 19:30 Temperature Pulse Rate 101 H 101 H 99 H Respiratory Rate 22 27 H 16 Blood Pressure Pulse Oximetry 93 95 92 Oxygen Delivery Method Room Air Room Air Oxygen Flow Rate 10/12/23 19:48 10/12/23 20:00 10/12/23 20:04 Temperature Pulse Rate 96 H 96 H Respiratory Rate 16 20 Blood Pressure 154/65 H Pulse Oximetry 92 93 Oxygen Delivery Method Room Air Room Air Oxygen Flow Rate 10/12/23 20:04 10/12/23 20:05 10/12/23 20:05 Temperature Pulse Rate 99 H Respiratory Rate 23 Blood Pressure 154/65 H 142/69 H Pulse Oximetry 93 Oxygen Delivery Method Room Air Oxygen Flow Rate 10/12/23 20:07 10/12/23 20:07 10/12/23 20:08 Temperature Pulse Rate 101 H Respiratory Rate 26 H Blood Pressure 145/81 H 137/82 Pulse Oximetry 93 Oxygen Delivery Method Oxygen Flow Rate 10/12/23 20:08 10/12/23 20:30 10/12/23 21:00 Temperature Pulse Rate 101 H 96 H 95 H Respiratory Rate 21 19 18 Blood Pressure Pulse Oximetry 93 90 L 92 Oxygen Delivery Method Oxygen Flow Rate 10/12/23 21:15 10/13/23 00:56 Temperature 98.1 F 97.4 F L Pulse Rate 97 H 95 H Respiratory Rate 20 18 Blood Pressure 145/79 H 155/76 H Pulse Oximetry 94 92 Oxygen Delivery Method Oxygen Flow Rate 0 0
[2023-10-13] MEDS: SUMAtriptan 6 MG/0.5 ML VIAL SUBCUT ×2 (05:22→15:34)
[2023-10-13 05:29] LABS: Add Manual Diff / Slide Review NO; Basophils Absolute Auto 0 /uL (0-100); Basophils Percent Auto 0.7 % (0-2); Eosinophils Absolute Auto 200 /uL (0-450); Hematocrit 38.2 % (36-46); Hemoglobin 12.3 g/dL (12.0-16.0); Lymphocytes Absolute Auto 1900 /uL (1100-4500); Lymphocytes Percent Auto 28.6 % (25-40); Mean Corpuscular HGB Conc 32.2 % (30-36); Mean Corpuscular Hemoglobin 29.6 PG (26-34); Mean Corpuscular Volume 91.9 fL (80-100); Monocytes Absolute Auto 600 /uL (0-900); Monocytes Percent Auto 9.4 % (3-14); Neutrophils Absolute Auto 4000 /uL (1500-7000); Neutrophils Percent Auto 58.3 % (50-75); Platelet Count 263 X10^3/uL (150-400); Red Blood Cell Count 4.16 X10^6/uL (4.0-5.2); Red Cell Distribution Width 14.5 % (11.6-14.8); White Blood Cell Count 6.8 X10^3/uL (4.5-11.0)
[2023-10-13 05:42] LABS: Blood Urea Nitrogen 23 mg/dL (7-17); Calcium 9.2 mg/dL (8.4-10.2); Carbon Dioxide 24 mmol/L (22-32); Chloride 107 mmol/L (98-107); Estimated Glomerular Filt Rate > 60 mL/min (>60); Glucose 87 mg/dL (80-110); HEMOLYSIS 16 (0-50); Magnesium 1.5 mg/dL (1.6-2.3); Potassium 4.1 mmol/L (3.4-5.1); Sodium 137 mmol/L (137-145)
[2023-10-13 05:43] LABS: Hemoglobin A1C% w Est Avg Glu 5.8 % (4.0-6.0)
[2023-10-13 05:50] LABS: NT-proBNP (BNP-Adult 18+) 112 pg/mL (<125)
[2023-10-13] MEDS: SERTRALINE 50 MG TABLET 100 MG PO (08:43)
[2023-10-13] MEDS: MECLIZINE HCL 12.5 MG TABLET 25 MG PO ×3 (08:43→20:33)
[2023-10-13] MEDS: VERAPAMIL 80 MG TABLET PO ×3 (08:44→20:31)
[2023-10-13] MEDS: CLOPIDOGREL 75 MG TABLET PO (08:44)
[2023-10-13] MEDS: ASPIRIN EC 81 MG TABLET PO (08:45)
[2023-10-13] MEDS: ENOXAPARIN 40 MG/0.4 ML SYRINGE SUBCUT ×2 (08:45→20:31)
[2023-10-13] MEDS: NYSTATIN POWDER 15GM 1 APPLIC TOP ×2 (08:45→20:34)
[2023-10-13] MEDS: buPROPion XL 150 MG TAB 300 MG PO (08:45)
[2023-10-13] MEDS: MAGNESIUM CHLORIDE 64 MG TABLET 128 MG PO (11:20)
--- NOTE | 2023-10-13 12:03 | PT.IIE ---
Addendum entered by Sybil Taylor 10/13/23 16:08: send plan of care Original Note: Surgical History (Last Reviewed 06/06/23 @ 19:25 by Eliseo De Leon DO) History of 3 sections History of lumbar spinal fusion (06/27/17) History of lumbar spinal fusion (11/26/19) History of ventral hernia repair Hx of umbilical hernia repair S/P cholecystectomy S/P trigger finger release Medical History (Last Reviewed 10/12/23 @ 19:44 by Man Read DO) Acute kidney injury (~12/2018) Adrenal mass Cardiomegaly Depression with anxiety Easy bruisability Enteritis History of concussion History of recurrent TIAs History of stroke Hyperlipidemia associated with type 2 diabetes mellitus Hypothyroid Migraine Morbid obesity with BMI of 45.0-49.9, adult Neuropathy ABIOLA on CPAP Osteopenia Polyneuropathy Radiculopathy Type 2 diabetes mellitus Vitamin D deficiency Physical Therapy Inpatient Evaluation/Re-Eval M1 PT/OT-IP Prior Functional Status Start: 10/13/23 15:41 Freq: NEEDED Status: Active Protocol: Document 10/13/23 15:42 KJ (Rec: 10/13/23 16:07 KJ [id number]) Medical Review Prior Functional Status Medical History Reviewed Yes Mobility and Gait Ambulated in home with 4ww. Activities of Daily Living and IADL's Pt has a caregiver 3 days per week who was stand by while the patient bathed (has bath bench) and helped her with home and ADLs, as well as driving her to appointments, shopping and errands. Social History Household Members none Living Arrangements House Home Environment Tub/Shower Home Equipment Four Wheel Walker,Shower Seat with Backrest Employment Status Retired Additional Social History Comment Her daughter and grandchildren live in the area M2 PT-IP Current Condition Start: 10/13/23 15:41 Freq: NEEDED Status: Active Protocol: Document 10/13/23 15:42 KJ (Rec: 10/13/23 16:07 KJ [id number]) Physical Therapy Current Condition Current Condition Evaluation Date 10/13/23 Treatment Diagnosis impaired mobility Onset Date 10/12/23 M3 PT-IP Subjective Start: 10/13/23 15:41 Freq: NEEDED Status: Active Protocol: Document 10/13/23 15:42 KJ (Rec: 10/13/23 16:07 KJ [id number]) Subjective Physical Therapy Visit Type Type Initial Evaluation Visit Start Time 11:26 Visit Stop Time 12:03 Total Visit Minutes 37 Notes pt presented to hospital after syncopal episode at home while in bathroom, in which she fell and hit her head. Physical Therapy Visit Comments Patient Comments MD request for evaluation for BPPV. [place] manuever was performed and no nystagmus was observed, no increase in dizziness or other symptoms such as nausea or vomiting. Negative for BPPV. Patient Goals To return to previous living situation Therapy Pain Assessment Pain When Pain Assessed dizzy M4 PT-IP Mobility and Gait Start: 10/13/23 15:41 Freq: NEEDED Status: Active Protocol: Document 10/13/23 15:42 KJ (Rec: 10/13/23 16:07 KJ [id number]) PT-Bed Mobility Assessment Rolling Type of Rolling Roll to Left Level of Assist Contact Guard Assistance Supine to Sit Supine to Sit Moderate Assistance Sit to Supine Sit to Supine Moderate Assistance Scooting Scooting to Edge of Bed Minimal Assistance PT-Transfer Assessment Sit to and From Stand Sit to and from Stand Moderate Assistance Equipment Transfer Assistive Device Gait Belt,4 Wheeled Walker Comments Mobility Comments Pt stood at eob w/ min-mod assist of 1 using 4ww. BP assessed in supine, sitting, and standing by RN - no orthostatic hypotension noted. Pt had difficulty with movement with wheezing, pt stated this is due to her COPD Gait Assessment Gait Gait Assistance Required: Minimum Assistance Distance (Feet) 1 Assistive Devices Assistive Device Gait Belt,4 Wheeled Walker Comments Gait Comments Pt able to side step to left with 4ww and min assist prior to sitting back in bed PT-Balance Assessment Sitting Balance and Reactions Static Sitting Balance Ability Good Dynamic Sitting Balance Ability Fair Standing Balance and Reactions Static Standing Balance Ability Fair M5 PT-IP Objective Assessments Start: 10/13/23 15:41 Freq: NEEDED Status: Active Protocol: Document 10/13/23 15:42 KJ (Rec: 10/13/23 16:07 KJ [id number]) Orientation Orientation/Cognition Level of Alertness Alert Orientation Name,Age,Birthday,Place, Situation Language Function Ability No Deficits Noted Safety Awareness Understands Safety Issues Memory Description No Deficits Noted Gross Range of Motion Upper Extremity ROM Assessment Within Functional Limits Lower Extremity ROM Assessment Within Functional Limits Strength Upper Extremity Strength Assessment Right Impaired Lower Extremity Strength Assessment Within Functional Limits Comments Strength Comments RUE weakness due to previous CVA Coordination Assessment Gross Coordination Gross Coordination Impaired Assessment Coordination Comments Pt appears to struggle with movement M6 PT-IP Treatment Start: 10/13/23 15:41 Freq: NEEDED Status: Active Protocol: Document 10/13/23 15:42 KJ (Rec: 10/13/23 16:07 KJ [id number]) Physical Therapy Treatment Exercises Exercises Ankle Pumps,Gluteal Sets,Quad Sets Education Education Provided Safety Other Treatments Other Treatment Performed Pt instructed in safety during mobility and sit to/from stand. M7 PT-IP Assessment and Plan Start: 10/13/23 15:41 Freq: NEEDED Status: Active Protocol: Document 10/13/23 15:42 KJ (Rec: 10/13/23 16:07 KJ [id number]) PT Summary Assessment and Plan Potential Rehabilitation Potential Good Status of Condition at Evaluation Stable Summary Impairments Strength,Bed Mobility, Transfers,Gait,Activity Tolerance Assessment Summary Pt demonstrates poor activity tolerance and struggles with functional movement due to general debilitation as well as old CVA, presented to hospital after a syncopal episode with fall at home, will need skilled PT to improve mobility and allow her to return to previous living situation. Goals Bed Mobility Goal Independent Transfer Goal Independent Gait Goal Standby Assistance Gait Distance 100' Days to Meet Goals 5 Frequency of Treatment Frequency Of Treatment Once a Day Treatment Plan Physical Therapy Treatment Plan Bed Mobility Training,Transfer Training,Gait Training, Therapeutic Exercise Recommendations To Nursing Amount of Assist Needed 2 Person Assist Discharge Recommendations PT Discharge Recommendations Home with Assistance Transportation Needs at Discharge Private Vehicle
--- NOTE | 2023-10-13 14:02 | DI.MRI.S_ITS ---
PROCEDURE: MR HEAD/BRAIN WO CON INDICATIONS: possible TIA TECHNIQUE: Non-contrast axial T1 spin echo, axial T2 fast spin echo, sagittal and axial FLAIR, coronal T2 fast spin echo, axial gradient echo, axial diffusion and ADC through the brain. COMPARISON: [facility], MR, MR HEAD/BRAIN WO CON, 09/24/2021, 18:55. [facility], MR, MR BRAIN WITHOUT CONTRAST, 12/31/2020, 7:08. [facility], CT, CT HEAD/BRAIN WO CON, 10/12/2023, 16:34. [facility], US, US CAROTID DOPPLER BI, 10/13/2023, 7:22. [facility], MR, MR HEAD/BRAIN WO CON, 06/24/2022, 11:30. [facility], CT, CT ANGIO HEAD AND NECK, 10/13/2023, 8:24. FINDINGS: Image quality: Excellent. CSF spaces: Ventricles appear symmetric in size and shape. Basal cisterns are patent. No extra-axial fluid collections. Brain: No intracranial bleeds or mass effects. There is cerebral volume loss for age. There are periventricular and deep white matter chronic small vessel ischemic changes. Brainstem appears normal. Diffusion-weighted images show no acute infarct. Areas of remote infarction can be seen involving both MCA territories, with volume loss and associated encephalomalacia. Normal intravascular flow voids are present. Skull and face: Calvarial bone marrow is normal in signal. Orbits are normal. Note is made of bilateral lens replacements. Sinuses: Sinuses and mastoids are clear. IMPRESSION: No findings of acute or subacute infarction can be seen. Bilateral stable MCA territory infarctions are again seen. Dictated by: David Winchester M.D. on 10/13/2023 at 14:24 Approved by: David Winchester M.D. on 10/13/2023 at 14:27
[2023-10-13] MEDS: ALBUTEROL 2.5 MG/3 ML NEB (ADULT) INH ×2 (15:13→20:00)
[2023-10-13] MEDS: SODIUM CHLORIDE 0.9% 1,000 ML 100 ML IV (15:43)
--- NOTE | 2023-10-13 15:52 | OT.IPNOTE ---
Pt states just having pain medication due to headache from just having the MRI. Pt requesting to do OT eval tomorrow.
--- NOTE | 2023-10-13 16:05 | PM.PN.1 ---
Subjective Subjective Interval history: Patient still having mild vertigo. MRI negative for acute stroke. Orthostatics positive so IVF started. Exam Vital Signs (past 8 hours): - 10/13/23 08:44 10/13/23 09:18 10/13/23 11:40 Temperature Pulse Rate 90 91 H Pulse Rate [Orthostatic Lying] 89 Pulse Rate [Orthostatic Sitting] 93 H Pulse Rate [Orthostatic Standing] 96 H Respiratory Rate Blood Pressure 145/63 H Blood Pressure [Orthostatic Lying] 157/84 H Blood Pressure [Orthostatic Sitting] 150/78 H Blood Pressure [Orthostatic Standing] 135/92 H Pulse Oximetry Oxygen Delivery Method Oxygen Flow Rate 10/13/23 12:00 10/13/23 15:13 10/13/23 15:32 Temperature 97.1 F L Pulse Rate 88 88 89 Pulse Rate [Orthostatic Lying] Pulse Rate [Orthostatic Sitting] Pulse Rate [Orthostatic Standing] Respiratory Rate 16 18 16 Blood Pressure 157/84 H 157/70 H Blood Pressure [Orthostatic Lying] Blood Pressure [Orthostatic Sitting] Blood Pressure [Orthostatic Standing] Pulse Oximetry 93 95 100 Oxygen Delivery Method Room Air Oxygen Flow Rate 0 0 10/13/23 15:33 Temperature Pulse Rate 89 Pulse Rate [Orthostatic Lying] Pulse Rate [Orthostatic Sitting] Pulse Rate [Orthostatic Standing] Respiratory Rate Blood Pressure 157/70 H Blood Pressure [Orthostatic Lying] Blood Pressure [Orthostatic Sitting] Blood Pressure [Orthostatic Standing] Pulse Oximetry Oxygen Delivery Method Oxygen Flow Rate Fraction of Inspired Oxygen 0.21 SaO2/FiO2 Ratio 11155 Oxygen Delivery Method Room Air Oxygen Flow Rate 0 Narrative Exam Narrative: GEN: no acute distress, obese, stutter HEENT: moist mucous membranes, PERRL NECK: trachea midline, no JVD CV: regular rate and rhythm, no murmurs PULM: clear bilaterally ABD: soft, nontender, nondistended, no organomegaly EXT: warm and well perfused with no edema NEURO: awake, alert, oriented, R sided weakness Objective Labs 10/13/23 05:06 10/13/23 05:06 Labs: Laboratory Results - last 24 hr 10/12/23 10/12/23 10/13/23 16:35 23:30 05:06 WBC 6.6 6.8 RBC 4.16 4.16 Hgb 12.5 12.3 Hct 38.3 38.2 MCV 92.0 91.9 MCH 29.9 29.6 MCHC 32.5 32.2 RDW 14.2 14.5 Plt Count 284 263 Neut % (Auto) 69.1 58.3 Lymph % (Auto) 18.4 L 28.6 [place] % (Auto) 9.1 9.4 Eos % (Auto) 2.7 3.0 Baso % (Auto) 0.7 0.7 Neut # (Auto) 4500 4000 Lymph # (Auto) 1200 1900 [place] # (Auto) 600 600 Eos # (Auto) 200 200 Baso # (Auto) 0 0 Sodium 138 137 Potassium 4.4 4.1 Chloride 104 107 Carbon Dioxide 26 24 BUN 28 H 23 H Creatinine 1.01 0.92 Estimated GFR 60 > 60 BUN/Creatinine Ratio 27.7 H 25.0 H Glucose 114 H 87 Hemoglobin A1c 5.8 Calcium 9.3 9.2 Magnesium 1.5 L Total Bilirubin 0.5 AST 23 ALT 18 Alkaline Phosphatase 73 NT-Pro-B Natriuret Pep 112 Total Protein 7.3 Albumin 3.6 Globulin 3.7 Albumin/Globulin Ratio 1.0 Urine Color Yellow Urine Appearance Sl cloudy Urine pH 6.0 Ur Specific [place] 1.025 Urine Protein Negative Urine Glucose (UA) Negative Urine Ketones Negative Urine Occult Blood Negative Urine Nitrate Positive H Urine Bilirubin Negative Urine Urobilinogen 0.2 Ur Leukocyte Esterase Trace H Urine RBC None seen Urine WBC 0-1/hpf Ur Squamous Epith Cells None seen Urine Bacteria Many (>30) H Ur Culture Indicated? Specimen cultured [facility] Medical History Enteritis Adrenal mass Neuropathy Acute kidney injury (~12/2018) Hypothyroid Vitamin D deficiency Easy bruisability Osteopenia Cardiomegaly ABIOLA on CPAP History of recurrent TIAs History of concussion Polyneuropathy Radiculopathy Migraine Depression with anxiety Hyperlipidemia associated with type 2 diabetes mellitus Morbid obesity with BMI of 45.0-49.9, adult History of stroke Type 2 diabetes mellitus Surgical History History of 3 sections History of lumbar spinal fusion (06/27/17) History of lumbar spinal fusion (11/26/19) History of ventral hernia repair Hx of umbilical hernia repair S/P cholecystectomy S/P trigger finger release Family History Mother Heart disease Father Heart disease Grandfather Diabetes mellitus Other Family history non-contributory Social History marital status: unknown household members: none Smoking Status: Never smoker alcohol intake: never substance use type: does not use Assessment & Plan Assessment & Plan narrative: 1. Vertigo. MRI brain negative. [place]-hallpike negative. Possibly from dehydration as her orthostatics are positive. Start IVF and meclizine. PT/OT evals. 2. Diabetes mellitus type 2. A1c 6.7%. SSI. 3. COPD appears to be chronic and stable 4. Hypertension resume the home verapamil. If orthostatics continue will lower dose. 5. DVT prophylaxis will be with Lovenox 6. Chronic back pain at baseline Goals of care reviewed and patient has requested DNR status Patient will be admitted under observation status Dispo: May need SNF vs home with HH. Pending PT eval and improvement in orthostatics.
--- NOTE | 2023-10-13 17:47 | PC.NURSE ---
Patient is resting comfortably.
[2023-10-13] MEDS: GABAPENTIN 600 MG TABLET 800 MG PO (22:54)
[2023-10-14] VITALS (12 sets, daily range): BP systolic 123–158; BP diastolic 52–82; PULSE 80–99; RESP 17–18; TEMP 36–36.7; O2SAT 92–96
[2023-10-14] MEDS: SODIUM CHLORIDE 0.9% 1,000 ML 100 ML IV (01:21)
[2023-10-14 05:11] LABS: Magnesium 1.5 mg/dL (1.6-2.3)
[2023-10-14] MEDS: GABAPENTIN 600 MG TABLET 800 MG PO (07:50)
[2023-10-14] MEDS: MAGNESIUM SULFATE 4 GM/100 ML PIGGYBACK IV (07:50)
[2023-10-14] MEDS: buPROPion XL 150 MG TAB 300 MG PO (07:50)
[2023-10-14] MEDS: ASPIRIN EC 81 MG TABLET PO (07:51)
[2023-10-14] MEDS: CLOPIDOGREL 75 MG TABLET PO (07:51)
[2023-10-14] MEDS: MECLIZINE HCL 12.5 MG TABLET 25 MG PO ×3 (07:51→20:51)
[2023-10-14] MEDS: SERTRALINE 50 MG TABLET 100 MG PO (07:51)
[2023-10-14] MEDS: ENOXAPARIN 40 MG/0.4 ML SYRINGE SUBCUT ×2 (07:52→20:51)
[2023-10-14] MEDS: NYSTATIN POWDER 15GM 1 APPLIC TOP ×2 (07:53→21:02)
[2023-10-14] MEDS: VERAPAMIL 80 MG TABLET PO (08:56)
--- NOTE | 2023-10-14 10:00 | OT.IP.EVAL ---
Addendum entered and electronically signed by Esther Self OT 10/14/23 11:10: esign Original Note: Past Medical History (Last Reviewed 10/12/23 @ 19:44 by Man Read DO) Acute kidney injury (~12/2018) Adrenal mass Cardiomegaly Depression with anxiety Easy bruisability Enteritis History of concussion History of recurrent TIAs History of stroke Hyperlipidemia associated with type 2 diabetes mellitus Hypothyroid Migraine Morbid obesity with BMI of 45.0-49.9, adult Neuropathy ABIOLA on CPAP Osteopenia Polyneuropathy Radiculopathy Type 2 diabetes mellitus Vitamin D deficiency Surgical History (Last Reviewed 06/06/23 @ 19:25 by Eliseo De Leon DO) History of 3 sections History of lumbar spinal fusion (06/27/17) History of lumbar spinal fusion (11/26/19) History of ventral hernia repair Hx of umbilical hernia repair S/P cholecystectomy S/P trigger finger release Occupational Therapy Inpatient Evaluation/Re-Eval M1 PT/OT-IP Prior Functional Status Start: 10/14/23 10:14 Freq: NEEDED Status: Active Protocol: Document 10/14/23 09:00 [facility] (Rec: 10/14/23 11:05 [facility] [id number]) Medical Review Prior Functional Status Medical History Reviewed Yes Mobility and Gait Ambulated in home with 4ww. Activities of Daily Living and IADL's Pt has a caregiver 5 days per week who was stand by while the patient bathed (has bath bench) and helped her with home and IADLs, as well as driving her to appointments, shopping and errands. Currently her Tues and Thurs caregiver is in [place] and will not be back until 10/21/23. M, W,F, 8-12:30 and T, R 1-5pm, pt has MEals on WheeL and Life Alert. Social History Household Members none Living Arrangements Apartment/Condo Number of Stairs To Enter/Railing? No steps to enter. Home Environment High Toilet,Tub/Shower Home Equipment Four Wheel Walker,Tub Transfer Bench,Hand Held Shower,Grab Bars Near Toilet,Grab Bars In Shower Employment Status Retired Additional Social History Comment Her daughter and grandchildren live in the area Pt has an Up Walker that she uses outside. M2 OT-IP Current Condition Start: 10/14/23 10:14 Freq: Status: Active Protocol: Document 10/14/23 09:00 [facility] (Rec: 10/14/23 11:05 [facility] [id number]) Occupational Therapy Current Condition Current Condition Evaluation Date 10/14/23 Treatment Diagnosis GLF, vertigo Diagnosis Onset Date 10/12/23 M3 OT- IP Subjective and Pain Start: 10/14/23 10:14 Freq: Status: Active Protocol: Document 10/14/23 09:00 [facility] (Rec: 10/14/23 11:05 [facility] [id number]) OT- Subjective Occupational Therapy Visit Type Type Initial Evaluation Visit Start Time 09:00 Visit Stop Time 10:45 Total Visit Minutes 60 Notes Pt seen again the morning for SLUMS Occupational Therapy Visit Comments Patient Comments Pt agreed to get up. Patient/Caregiver Goals To go home. OT Pain Assessment Pain When Pain Assessed At Rest Pain Present Pain Present Pain Reported M4 OT- IP ADL's Start: 10/14/23 10:14 Freq: Status: Active Protocol: Document 10/14/23 09:00 [facility] (Rec: 10/14/23 11:05 [facility] [id number]) OT COI-Kxgh-Ydbprxg General Evaluation Self-Feeding Ability Independent OT ADL-Grooming General Evaluation Grooming Ability Independent OT ADL-Oral Care Comments Oral Care Comments Nursing aid assist with dentures. OT ADL-Dressing General Eval Lower Body Dressing Ability Maximum Assistance Comments OT Dressing Comments Assist for socks and brief as pt having difficulty with her dynamic balance. Also practiced use fo cloth colorer and sock aid to help increase her independence. OT ADL-Toileting General Evaluation Toileting Ability Total Assistance Comments OT Toileting Comments Pt use of purewick. At this time pt not able to reach to wipe due to decreased dynamic balance. OT ADL-Bathing Bathing Type Bathing Type Sponge Bath General Evaluation Bathing Ability Maximal Assistance Areas Needing Assistance Wash/Dry Back,Wash/Dry Perineal Area,Wash/Dry Lower Extremities Comments OT Bathing Comments At this time pt would require MAX A for showering needs. M5 OT- IP IADL's Start: 10/14/23 10:14 Freq: Status: Active Protocol: Document 10/14/23 09:00 [facility] (Rec: 10/14/23 11:05 [facility] [id number]) OT-Instrumental Activities of Daily Living Deficits IADL Deficits Identified Deficits Home Safety Awareness Awareness of Need for Assistance at Home Good Awareness Medication Management Medication Management Comments Pt states does her own. Money Management Money Management Comments Pt states does her own. Meal Preparation Meal Preparation Comments Pt has Meals on Wheels. Psychosocial Rehabilitation Counselor Psychosocial Rehabilitation Counselor Caregiver Provides Assist M6 OT- IP Functional Cognition Start: 10/14/23 10:14 Freq: Status: Active Protocol: Document 10/14/23 09:00 [facility] (Rec: 10/14/23 11:05 [facility] [id number]) Cognitive Factors Limiting Selfcare Function Cognitive Ability Level of Alertness Alert Cognitive Tests SLUMS Pt scored 29/30 on 09/25/24 and today scored 24/30 which implies mild cognitive deficits. Pt not able to calculate 100-23, not able to draw the hands on the clock correctly when time given, and able to answer 3/4 questions right after time passed. Cognitive Comments Cognitive Assessment Comments Pt able to answer home safety situations accurately. Pt states wanting to go home and when pressed states does not feel safe to be able to care for herself at this time. OT- Vision and Hearing OT- Hearing Assessment OT- Hearing Assessment WFL OT- Vision Assessment Visual Acuity Glasses All The Time Visual Attentiveness WFL Occular Pursuits WFL Visual [place] Impaired Diplopia Present Vision Assessment Comments Decreased for right peripheral vision. M7 OT- IP Mobility and Balance Start: 10/14/23 10:14 Freq: Status: Active Protocol: Document 10/14/23 09:00 [facility] (Rec: 10/14/23 11:05 [facility] [id number]) OT- Bed Mobility Assessment Supine to Sit Supine to Sit Assist Standby Assistance,Head of Bed Elevated,Bedrails OT-Transfer Assessment Sit to and From Stand Sit to and from Stand Minimal Assistance Transfers Transfer Ability Contact Guard Assistance Technique Transfer Destination Bed,Chair Transfer Technique Stand Step Pivot Devices Transfer Assistive Devices Gait Belt,Front Wheeled Walker Comments Mobility Comments Increased time to get out of bed and use of momentum to assist. JITENDRA to stand and CGA for transfer as feeling shakey and unsteady on her feet. Supine 139/66, sit 163/75, 158 /74, standing 141/57 M8 OT- IP Objective Assessments Start: 10/14/23 10:14 Freq: Status: Active Protocol: Document 10/14/23 09:00 [facility] (Rec: 10/14/23 11:05 [facility] [id number]) OT Gross Range of Motion Upper Extremity Range of Motion Assessment Within Functional Limits OT Strength Comments Strength Comments RUE 4-/5 and LUE 4/5 OT- Coordination Assessment Upper Extremity Finger to Nose Test Within Functional Limits OT Sensation Assessment Comments Summary Comments Intact for light touch M9 OT- IP Assessment and Plan Start: 10/14/23 10:14 Freq: Status: Active Protocol: Document 10/14/23 09:00 [facility] (Rec: 10/14/23 11:05 [facility] [id number]) OT Summary Assessment and Plan Potential Rehabilitation Potential Good Analytic Complexity at Evaluation Low Summary OT Impairments Strength,Balance,Functional Cognition,Functional Mobility, Dressing,Toileting,Bathing, Toilet Transfers,Shower Transfers,Activity Tolerance Progress Towards Goals Slow Progress due to Medical Issues,Slow Progress due to Activity Tolerance,Slow Progress due to Cognition Assessment Summary Pt low complexity and main barriers are feeling woozy, unsteady on her feet while standing in addition to being shaky. Pt has blurred vision and right eye slightly rotated inwards. Pt states her vision has been off for the past 2 weeks and plans on bumping up her eye appointment which was originally scheduled for November. Pt now needing assist for ADL needs for LB dressing and toileting due to decreased dynamic balance needs. Pt would benefit from skilled rehab first. However if pt insistent on going home to then have 24/7 available assist and home health. Pt is a high fall risk at this time. Pt already looking to having someone to stay with her. Goals Self-Feeding Goal Independent Grooming Goal Independent Dressing Goal Independent Toileting Goal Independent Bathing Goal Standby Assistance Toilet Transfer Goal Independent Shower Transfer Goal Standby Assistance Days to Meet Goals 16 Frequency of Treatment Frequency Of Treatment Once a Day Treatment Plan OT Treatment Plan ADL Training,Functional Cognition Training,Functional Mobility,Patient/Family Education,Discharge Planning Discharge Recommendations OT Discharge Recommendations SNF Rehab,Home vs SNF Other Discharge Recommendations If pt does want to go to skilled rehab home with 24/7 available asisst and home health. Home Equipment Needs sock aid, toilet paper aid, BSC Transportation Needs at Discharge Wheelchair/Cabulance
--- NOTE | 2023-10-14 11:15 | PT.IPTN ---
Physical Therapy Treatment Note M2 PT-IP Current Condition Start: 10/13/23 15:41 Freq: NEEDED Status: Active Protocol: Document 10/13/23 15:42 KJ (Rec: 10/13/23 16:07 KJ [id number]) Physical Therapy Current Condition Current Condition Evaluation Date 10/13/23 Treatment Diagnosis impaired mobility Onset Date 10/12/23 M3 PT-IP Subjective Start: 10/13/23 15:41 Freq: NEEDED Status: Active Protocol: Document 10/14/23 11:55 TS (Rec: 10/14/23 12:22 TS [id number]) Subjective Physical Therapy Visit Type Type Treatment Note Visit Start Time 11:15 Visit Stop Time 11:45 Total Visit Minutes 30 Number of HOTEL VALET ATTENDANT Visits 1 Physical Therapy Visit Comments Patient Comments Pt found resting in chair, is agreeable to PT. Patient Goals To return to previous living situation M4 PT-IP Mobility and Gait Start: 10/13/23 15:41 Freq: NEEDED Status: Active Protocol: Document 10/14/23 11:55 TS (Rec: 10/14/23 12:22 TS [id number]) PT-Transfer Assessment Sit to and From Stand Sit to and from Stand Minimal Assistance Equipment Transfer Assistive Device Gait Belt,4 Wheeled Walker Comments Mobility Comments BP in sitting 140/63 prior to mobility. Sit to stand with 4WW Albertina for balance, pt demonstrates good carryover of sit to stand sequencing. BP in standing 147/64, pt reports some dizziness/ lightheadedness. She ambulated in room ~20'SBA/CGA with FWW, after ~15 pt c/o increasing dizziness and requested to sit back into chair. BP in sitting 137/57, pt c/o decreasing dizziness. Pt was left in chair, all needs met. Gait Assessment Gait Gait Assistance Required: Standby Assistance,Contact Guard Assist Distance (Feet) 25 Assistive Devices Assistive Device Gait Belt,4 Wheeled Walker Comments Gait Comments See mobility comments PT-Balance Assessment Sitting Balance and Reactions Static Sitting Balance Ability Good Dynamic Sitting Balance Ability Fair Standing Balance and Reactions Static Standing Balance Ability Fair Dynamic Standing Balance Ability Fair Device Used 4WW M5 PT-IP Objective Assessments Start: 10/13/23 15:41 Freq: NEEDED Status: Active Protocol: Document 10/13/23 15:42 KJ (Rec: 10/13/23 16:07 KJ [id number]) Orientation Orientation/Cognition Level of Alertness Alert Orientation Name,Age,Birthday,Place, Situation Language Function Ability No Deficits Noted Safety Awareness Understands Safety Issues Memory Description No Deficits Noted Gross Range of Motion Upper Extremity ROM Assessment Within Functional Limits Lower Extremity ROM Assessment Within Functional Limits Strength Upper Extremity Strength Assessment Right Impaired Lower Extremity Strength Assessment Within Functional Limits Comments Strength Comments RUE weakness due to previous CVA Coordination Assessment Gross Coordination Gross Coordination Impaired Assessment Coordination Comments Pt appears to struggle with movement M6 PT-IP Treatment Start: 10/13/23 15:41 Freq: NEEDED Status: Active Protocol: Document 10/14/23 11:55 TS (Rec: 10/14/23 12:22 TS [id number]) Physical Therapy Treatment Education Education Provided Safety M7 PT-IP Assessment and Plan Start: 10/13/23 15:41 Freq: NEEDED Status: Active Protocol: Document 10/14/23 11:55 TS (Rec: 10/14/23 12:22 TS [id number]) PT Summary Assessment and Plan Potential Rehabilitation Potential Good Summary Impairments Strength,Bed Mobility, Transfers,Gait,Activity Tolerance Progress Towards Goals Slow Progress due to Activity Tolerance Assessment Summary Bushra is making some progress with her mobility but remains limited by poor activity tolerance and ongoing dizziness. She is Albertina with 4WW to stand from chair, she demonstrates good carryover of STS technique, requires momentum to stand. She progressed her gait to ~25' with 4WW, pt continues to c/o dizziness limiting her gait further. PT at this time is recommending Home vs SNF. Pt has friend who will stay with her if she were to go home for this weekend and caregivers M -F. Pt could benefit from SNF stay to progress activity tolerance and strength before d/c home. Goals Bed Mobility Goal Independent Transfer Goal Independent Gait Goal Standby Assistance Gait Distance 100' Days to Meet Goals 5 Frequency of Treatment Frequency Of Treatment Once a Day Treatment Plan Physical Therapy Treatment Plan Bed Mobility Training,Transfer Training,Gait Training, Therapeutic Exercise Recommendations To Nursing Amount of Assist Needed 1 Person Assist Discharge Recommendations PT Discharge Recommendations Home with 18/04 Assist Available,Home Health,SNF Rehab,Home vs SNF Transportation Needs at Discharge Private Vehicle
--- NOTE | 2023-10-14 12:22 | CM.DANOTE ---
Addendum entered by KRISTI Torres 10/14/23 13:57: Gabbie at [facility] reports they can accept pt. Original Note: DCP Assessment Note pt is a 73yo F here under OBS status following GLF. Pt has been dizzy with shaky legs working with therapies. PCP Andrea Coyne Payer [facility] and Medicaid EMISSIONS TESTING TECHNICIAN reviewed EMR. Per chart review, pt has [facility] caregivers 5days/week M-F. PT/OT rec home with HH vs SNF. OBS status barrier to SNF placement. EMISSIONS TESTING TECHNICIAN entered room and introduced self and role. pt eating lunch in chair. Pt confirms [facility] caregivers. Pt has meals on wheels. Pt uses a walker and has no stairs into pt. Pt confirms Hx of [facility] and reports wanting to start up again with RN/PT/OT. Pt is having a friend pick her up tomorrow, could do any time, and friend is going to stay with her for a few days until [facility] caregivers come back on Tuesday. Pt reports working with [employer] egg caser about getting new recliner/cheaper housing ([place] [address]). EMISSIONS TESTING TECHNICIAN provided pt with [employer] information for further housing resources. EMISSIONS TESTING TECHNICIAN spoke with Gabbie at [facility]. Agreed to review. MALIK Saleem kindly agreed to send referral information. EMISSIONS TESTING TECHNICIAN completed Face to face and order. Plan: home tomorrow with friend to stay with her/transport. [facility] to follow pending acceptance. CM team will continue to follow closely. KRISTI Torres Discharge Planning/Care Management CM Discharge Assessment Start: 10/14/23 12:19 Freq: Status: Active Protocol: Document 10/14/23 12:19 (Rec: 10/14/23 12:22 [id number]) Discharge Planning Assessment Assigned Criminal Justice Teacher KRISTI Salazar DPOA/Assigned Designee Name Gabbie Roberson dtr Contact Information [phone] Advance Directives? Yes Advance Directives on File Yes History Provided By Patient,Medical Record Prior Living Arrangements Apartment/Condo Household Members none Type of transporation used prior to Relies on Others admit Is patient alert and oriented? Yes Needs Assistance With Meal Prep,Managing Medications ,Home Chores / Shopping Comment Pt has [employer] careviers 5days/ week M-F DME Already Rented / Owned FWW / Walker Comment uses 4ww Patient/Family Preference Home with Home Health Comment Patient on Meals on Wheels per notes Comment no actual barriers noted: just needs good coordination of services. Pt is a very able historian of her [facility] care plan Discharge Plan Home with Home Health Transportation Arrangement Friend in POV Referrals Initiated Home Health Additional Comment [facility] If patient plan is home with home health Yes : Has signed face to face form been completed? If patient plan is SNF: Has PASSR been . completed? SNF/HH Preference [facility] Whiteboard Updated in Patient Room with Yes name and ext. # of Criminal Justice Teacher Review Status In Process Next Review Type Continued Stay Review
[2023-10-14] MEDS: VERAPAMIL 80 MG TABLET 60 MG PO ×2 (14:35→20:55)
--- NOTE | 2023-10-14 14:45 | PM.PN.1 ---
Subjective Subjective Interval history: Patient still slightly orthostatic today. Lowered verapamil due to this. Patient arranging to see if a friend can come stay with her.\ Exam Vital Signs (past 8 hours): - 10/14/23 07:50 10/14/23 07:50 10/14/23 07:50 Temperature 98.0 F Pulse Rate 85 Pulse Rate [Orthostatic Lying] Pulse Rate [Orthostatic Sitting] Pulse Rate [Orthostatic Standing] Respiratory Rate 18 Blood Pressure 130/66 Blood Pressure [Orthostatic Lying] Blood Pressure [Orthostatic Sitting] Blood Pressure [Orthostatic Standing] Pulse Oximetry 95 94 Oxygen Delivery Method Room Air Room Air Oxygen Flow Rate 0 10/14/23 09:33 10/14/23 11:00 10/14/23 13:38 Temperature Pulse Rate Pulse Rate [Orthostatic Lying] 91 H 93 H Pulse Rate [Orthostatic Sitting] 96 H 95 H Pulse Rate [Orthostatic Standing] 99 H 95 H Respiratory Rate 18 Blood Pressure Blood Pressure [Orthostatic Lying] 139/66 123/60 Blood Pressure [Orthostatic Sitting] 158/74 H 131/63 Blood Pressure [Orthostatic Standing] 141/57 H 123/52 L Pulse Oximetry Oxygen Delivery Method Oxygen Flow Rate 10/14/23 13:41 Temperature 97.3 F L Pulse Rate Pulse Rate [Orthostatic Lying] Pulse Rate [Orthostatic Sitting] Pulse Rate [Orthostatic Standing] Respiratory Rate 18 Blood Pressure Blood Pressure [Orthostatic Lying] Blood Pressure [Orthostatic Sitting] Blood Pressure [Orthostatic Standing] Pulse Oximetry 92 Oxygen Delivery Method Oxygen Flow Rate 0 Fraction of Inspired Oxygen 0.21 SaO2/FiO2 Ratio [id number] Oxygen Delivery Method Room Air Oxygen Flow Rate 0 Narrative Exam Narrative: GEN: no acute distress, obese, stutter HEENT: moist mucous membranes, PERRL NECK: trachea midline, no JVD CV: regular rate and rhythm, no murmurs PULM: clear bilaterally ABD: soft, nontender, nondistended, no organomegaly EXT: warm and well perfused with no edema NEURO: awake, alert, oriented, R sided weakness Objective Labs 10/13/23 05:06 10/13/23 05:06 Labs: Laboratory Results - last 24 hr 10/14/23 03:57 Magnesium 1.5 L PFSH Medical History Enteritis Adrenal mass Neuropathy Acute kidney injury (~12/2018) Hypothyroid Vitamin D deficiency Easy bruisability Osteopenia Cardiomegaly ABIOLA on CPAP History of recurrent TIAs History of concussion Polyneuropathy Radiculopathy Migraine Depression with anxiety Hyperlipidemia associated with type 2 diabetes mellitus Morbid obesity with BMI of 45.0-49.9, adult History of stroke Type 2 diabetes mellitus Surgical History History of 3 sections History of lumbar spinal fusion (06/27/17) History of lumbar spinal fusion (11/26/19) History of ventral hernia repair Hx of umbilical hernia repair S/P cholecystectomy S/P trigger finger release Family History Mother Heart disease Father Heart disease Grandfather Diabetes mellitus Other Family history non-contributory Social History marital status: unknown household members: none Smoking Status: Never smoker alcohol intake: never substance use type: does not use Assessment & Plan Assessment & Plan narrative: 1. Vertigo. MRI brain negative. [place]-hallpike negative. Possibly from dehydration as her orthostatics are positive. Continue IVF and meclizine. PT/OT eval rec HH. 2. Diabetes mellitus type 2. A1c 6.7%. SSI. 3. COPD appears to be chronic and stable 4. Hypertension resume the home verapamil. Lowered dose to 60 TID due to persistent postural hypotension. 5. DVT prophylaxis will be with Lovenox 6. Chronic back pain at baseline 7. Asymptomatic bacteriuria. UA without pyuria, culture growing >100k GNR. Patient denies urgency, frequenty or dysuria so will not treat. Goals of care reviewed and patient has requested DNR status Patient will be admitted under observation status Dispo: Home on 10/15 with HH.
--- NOTE | 2023-10-14 18:31 | PC.NURSE ---
Vertigo/Neuro: Pt reports she is better since getting IV fluids and starting oral meds. However she still feels sl dizzy when she is up. At rest or sitting she has no dizziness. Pt's med verapamil further adjusted and she had received her first lower dose this afternoon. She doesn't feel much change for now. Hopefully will feel better tomorrow.
[2023-10-14] MEDS: SUMAtriptan 6 MG/0.5 ML VIAL SUBCUT (19:51)
[2023-10-15 00:40] VITALS: BP 140/53; PULSE 86; RESP 18; TEMP 36.4; O2SAT 95
[2023-10-15 04:50] VITALS: BP 146/69; PULSE 86; RESP 18; TEMP 36.4; O2SAT 94
[2023-10-15 06:30] LABS: Add Manual Diff / Slide Review NO; Basophils Absolute Auto 0 /uL (0-100); Basophils Percent Auto 0.6 % (0-2); Eosinophils Absolute Auto 200 /uL (0-450); Hematocrit 37.2 % (36-46); Hemoglobin 12.3 g/dL (12.0-16.0); Lymphocytes Absolute Auto 1500 /uL (1100-4500); Lymphocytes Percent Auto 23.7 % (25-40); Mean Corpuscular Hemoglobin 30.1 PG (26-34); Mean Corpuscular Volume 91.2 fL (80-100); Monocytes Absolute Auto 600 /uL (0-900); Neutrophils Absolute Auto 4200 /uL (1500-7000); Neutrophils Percent Auto 63.7 % (50-75); Platelet Count 268 X10^3/uL (150-400); Red Blood Cell Count 4.08 X10^6/uL (4.0-5.2); Red Cell Distribution Width 14.3 % (11.6-14.8); White Blood Cell Count 6.5 X10^3/uL (4.5-11.0)
[2023-10-15 06:42] LABS: BUN Creatinine Ratio 23.8 (6-22); Blood Urea Nitrogen 24 mg/dL (7-17); Calcium 9.7 mg/dL (8.4-10.2); Carbon Dioxide 25 mmol/L (22-32); Chloride 106 mmol/L (98-107); Estimated Glomerular Filt Rate 60 mL/min (>60); Glucose 97 mg/dL (80-110); HEMOLYSIS < 15 (0-50); Potassium 3.9 mmol/L (3.4-5.1); Sodium 136 mmol/L (137-145)
[2023-10-15 06:43] LABS: Magnesium 1.7 mg/dL (1.6-2.3)
[2023-10-15 08:00] VITALS: BP 145/74; PULSE 88; RESP 18; O2SAT 95
[2023-10-15] MEDS: cefTRIAXone 1,000 MG in SODIUM CHLORIDE 0.9% 100 ML 200 MG IV (09:02)
[2023-10-15] MEDS: NYSTATIN POWDER 15GM 1 APPLIC TOP (09:03)
[2023-10-15] MEDS: buPROPion XL 150 MG TAB 300 MG PO (09:03)
[2023-10-15] MEDS: CLOPIDOGREL 75 MG TABLET PO (09:03)
[2023-10-15] MEDS: MECLIZINE HCL 12.5 MG TABLET 25 MG PO (09:03)
[2023-10-15] MEDS: SERTRALINE 50 MG TABLET 100 MG PO (09:03)
[2023-10-15] MEDS: VERAPAMIL 80 MG TABLET 60 MG PO (09:06)
[2023-10-15] MEDS: ASPIRIN EC 81 MG TABLET PO (09:06)
[2023-10-15] MEDS: ENOXAPARIN 40 MG/0.4 ML SYRINGE SUBCUT (09:07)
--- NOTE | 2023-10-15 11:00 | CM.DPNOTE ---
Addendum entered by Pebbles Burkett R.N. 10/15/23 12:59: Gabbie Pauldetto from [facility] called back and left a message, and confirmed acceptance, and received the DC summary, face to face, and orders, and will reach out to her team on Tuesday for scheduling patient. Addendum entered by Pebbles Burkett R.N. 10/15/23 12:00: Patient has discharge orders, notes indicate from KRISTI Fung, from yesterday that [facility] has confirmed acceptance. Called and left a message for Gabbie Patricio, [facility] life skills specialist,and let her on via her voice mail that patient is discharging home today. Faxing over DC Summary, face to face, and orders. Attempted to reach main number, for [facility], was not able to get through. Original Note: DCP Cont: Patient may discharge today, she was getting IV Rocephine for UTI. Discussed during team rounds, hospitalist indicated that she should be able to discharge home today. Patient has a friend that will be staying with her, until her [facility] caregiver returns Tuesday. Patient has had [facility] order, notes indicate that they can accept. Met with patient, introduced self and role, and gave her a [facility] brochure. Confirmed from patient that she is ready to go today, her friend can pick her up. Let her know that this DC Electron Gun Inspector will notifiy [facility] when she discharges. P: DCP to continue to follow. Will fax over DC summary, face to face has been completed, and orders, when patient receives DC orders, and will follow up with a phone call. Pebbles Burkett RN/Practice Specialist
--- NOTE | 2023-10-15 11:09 | PM.DS.1 ---
History of Present Illness History of Present Illness Date Patient Seen: 10/12/23 Time Patient Seen: 22:30 Chief complaint: GLF, Head Injury Narrative: 73 years old female with a past medical history of diabetes mellitus type 2, COPD, hypertension, CVA with right-sided deficit and multiple other medical issues was brought to the emergency room for dizziness with near syncopal event. Apparently patient had been to the restroom and going back to bed when she felt intensely dizzy and nearly passed out. There was some conflicting history with initial reports of syncopal event but now patient reports that she did not completely pass out. Feels very dizzy especially when moving or standing up and the room is spinning. Does have headache mostly in the right frontal region. Denies any new onset blurry vision. No ringing sensation in the ears. Denies any chest pain or shortness of breath. Denies any cough wheezing headache or upper respiratory symptoms. CT scan of the head and cervical spine shows no acute process. EKG shows no significant ST-T wave changes. Denies any nausea or vomiting. Denies abdominal pain. Patient was given a dose of Valium and admitted with a presumptive diagnosis of vertigo not responding to conservative management Discharge Providers Provider Date of admission: 10/12/23 19:42 Discharge Date: 10/15/23 Primary care physician: Andrea Coyne MD Consults: 10/12/23 23:29 Consult to Physical Therapy Evaluate & Treat Comment: vertigo Physician Instructions: Evaluate and Treat 10/13/23 08:07 Consult to Occupational Therapy Evaluate & Treat Comment: Physician Instructions: Evaluate and treat 10/14/23 12:30 Consult to Home Health Routine Comment: Reason For Exam: RN/PT/OT Discharge provider: Juliocesar Dawn DO Summary Hospital Course Discharge Diagnosis: 1. Vertigo due to orthostatic hypotension. MRI brain negative. [place]-hallpike negative. Possibly from dehydration as her orthostatics are positive. Continue IVF and meclizine. PT/OT eval rec HH. Orthostatics and vertigo improved with IVF. 2. Diabetes mellitus type 2. A1c 6.7%. SSI. 3. COPD appears to be chronic and stable 4. Hypertension resume the home verapamil. Lowered dose to 60 TID due to persistent postural hypotension. 5. DVT prophylaxis will be with Lovenox 6. Chronic back pain at baseline 7. UTI. Gave 1 dose of rocephin and sent home with 2 more days of augmentin. Cultures grew >100k klebsiella. Hospital Course: Admitted for vertigo and falls at home. Patient has h/o strokes so MRI done which showed no acute stroke. Patient orthostatic so given IVF and lowered her verapamil dose. Orthostatics and vertigo improved. PT rec HH so patient discharged home with HH PT/OT. Had UTI so placed on abx. Exam Vital Signs (past 8 hours): - 10/15/23 04:50 10/15/23 08:00 Temperature 97.6 F Pulse Rate 86 88 Respiratory Rate 18 18 Blood Pressure 146/69 H 145/74 H Pulse Oximetry 94 95 Oxygen Flow Rate 0 0 Fraction of Inspired Oxygen 0.21 SaO2/FiO2 Ratio [id number] Oxygen Delivery Method Room Air Oxygen Flow Rate 0 Narrative Exam Narrative: GEN: no acute distress, obese, stutter HEENT: moist mucous membranes, PERRL NECK: trachea midline, no JVD CV: regular rate and rhythm, no murmurs PULM: clear bilaterally ABD: soft, nontender, nondistended, no organomegaly EXT: warm and well perfused with no edema NEURO: awake, alert, oriented, R sided weakness Objective Labs 10/15/23 05:55 10/15/23 05:55 Labs: Laboratory Results - last 24 hr 10/15/23 05:55 WBC 6.5 RBC 4.08 Hgb 12.3 Hct 37.2 MCV 91.2 MCH 30.1 MCHC 33.0 RDW 14.3 Plt Count 268 Neut % (Auto) 63.7 Lymph % (Auto) 23.7 L [place] % (Auto) 9.0 Eos % (Auto) 3.0 Baso % (Auto) 0.6 Neut # (Auto) 4200 Lymph # (Auto) 1500 [place] # (Auto) 600 Eos # (Auto) 200 Baso # (Auto) 0 Sodium 136 L Potassium 3.9 Chloride 106 Carbon Dioxide 25 BUN 24 H Creatinine 1.01 Estimated GFR 60 BUN/Creatinine Ratio 23.8 H Glucose 97 Calcium 9.7 Magnesium 1.7 PFSH Medical History Enteritis Adrenal mass Neuropathy Acute kidney injury (~12/2018) Hypothyroid Vitamin D deficiency Easy bruisability Osteopenia Cardiomegaly ABIOLA on CPAP History of recurrent TIAs History of concussion Polyneuropathy Radiculopathy Migraine Depression with anxiety Hyperlipidemia associated with type 2 diabetes mellitus Morbid obesity with BMI of 45.0-49.9, adult History of stroke Type 2 diabetes mellitus Surgical History History of 3 sections History of lumbar spinal fusion (06/27/17) History of lumbar spinal fusion (11/26/19) History of ventral hernia repair Hx of umbilical hernia repair S/P cholecystectomy S/P trigger finger release Family History Mother Heart disease Father Heart disease Grandfather Diabetes mellitus Other Family history non-contributory Social History marital status: unknown household members: none Smoking Status: Never smoker alcohol intake: never substance use type: does not use Discharge Plan Discharge Plan Patient Disposition: Home Provider Discharge Comment: You were admitted because of dizziness and falls. Your brain MRI was normal. We found a UTI and you are now on some antibiotics just in case. I've also lowered your verapamil dosing to help with your blood pressure as it was dropping when you stand up. Dr. Dawn Discharge orders & Medications Prescriptions: New verapamil 40 mg tablet 60 mg PO TID Qty: 90 0RF amoxicillin-pot clavulanate 875-125 mg tablet 1 tab PO BID 2 Days Qty: 4 0RF Rx Instructions: start on 10/16 Continued clobetasol 0.05 % ointment 1 applic topical QAM AND QPM Qty: 60 12RF nystatin 100,000 unit/gram powder 1 applic topical BID Qty: 60 12RF clopidogrel 75 mg Tablet 75 mg PO DAILY Qty: 30 0RF sumatriptan succinate 6 mg/0.5 mL Pen Injector 6 mg SUBCUT Q8HR PRN (Reason: Headache) albuterol sulfate [Ventolin HFA] 90 mcg/actuation Hfa Aerosol Inhaler 2 puff INHALATION Q6H PRN (Reason: Shortness Of Breath) Spiriva Respimat 1.25 mcg/actuation Mist 2 puff INHALATION DAILY metformin 500 mg Tablet 1,000 mg PO BID gabapentin 600 mg tablet 800 mg PO TID PRN (Reason: pain) sertraline 100 mg tablet 100 mg PO DAILY Patient Comments: take 1 tablet by mouth once daily for anxiety bupropion HCl 300 mg tablet extended release 24 hr 300 mg PO DAILY Qty: 0 0RF Discontinued verapamil 80 mg Tablet 80 mg PO TID Follow up/Referrals: Andrea Coyne MD [Primary Care Provider] - 2 Weeks Visit Report/Discharge Packet Instructions: DI for Vertigo, DI for Urinary Tract Infection (UTI), How to Prevent Falls Stand Alone Forms: Patient Portal/API, Stroke Signs & Symptoms Discharge Data Primary Care Provider: Andrea Coyne Attending Provider: Vinny Mcfadden Admit Date/Time: 10/12/23 19:42
--- NOTE | 2023-10-15 11:16 | PT-IP ANOTE ---
Pt found with nursing getting dressed for d/c home. Pt reports not having any PT needs at this time.
[2023-10-15 12:50] VITALS: O2SAT 93
--- NOTE | 2023-10-15 13:20 | PC.NURSE ---
Discharge: Pt feels ready to d/c to home. She reports the vertigo is much better since she had her medication lowered and the meclazine was added. Every once in a while she will have sl dizziness but if she stops, rests, it passes. Reviewed d/c packet and questions answered. Pt d/c to home with her friend.
--- NOTE | 2023-10-20 08:38 | PC.NURSE ---
Late Entry: Ceftriaxone infusion initiated on 10/15 at 0902 complete at 0933.
== END 2023-10-15 12:45 | disposition home or self-care (01) ==
LOC: ED 19:42 → AC 19:43
PROVIDERS: Emergency Medicine; Student in an Organized Health Care Education/Training Program; Admitting Provider Internal Medicine; Emergency Provider Emergency Medicine; PCP Internal Medicine; Visit Provider Internal Medicine
DX: R51.9 Headache, unspecified (principal); R42 Dizziness and giddiness; W01.10XA Fall on same level from slipping, tripping and stumbling with subsequent striking against unspecified object, initial encounter; Y92.002 Bathroom of unspecified non-institutional (private) residence as the place of occurrence of the external cause; I69.351 Hemiplegia and hemiparesis following cerebral infarction affecting right dominant side; J44.9 Chronic obstructive pulmonary disease, unspecified; E11.9 Type 2 diabetes mellitus without complications; Z79.84 Long term (current) use of oral hypoglycemic drugs
CPT/HCPCS: 36415; 70450; 70496; 70498; 70551; 72125; 80048; 80053; 81001; 82962; 83036; 83735; 83880; 85025; 87077; 87086; 87186; 93005; 93010; 93306; 93880; 94640; 94660; 96361; 96365; 96372; 96375; 97129; 97161; 97165; 97530; 97535; 99284; G0378; A9270; J0696; J1650; J3030; J3360; J3475; J7613; Q9967

== ENCOUNTER 2023-11-02 15:28 | Emergency (ER) | payer MEDICARE, MEDICAID, SELFPAY ==
[2023-10-12 19:48] VITALS: BMI 44.5
[2023-11-02] VITALS (10 sets, daily range): BP systolic 138–197; BP diastolic 71–108; PULSE 87–101; RESP 18–20; TEMP 36.6–36.8; O2SAT 94–100; BMI 43.9
--- NOTE | 2023-11-02 15:53 | ED.LOWEXIN ---
HPI - Extremity Injury (Lower) <Brandy Chatterjee MD - Last Filed: 11/04/23 07:05> General Chief Complaint: Extremity Injury, Lower Stated Complaint: knee pain and swelling after fall Time Seen by Provider: 11/02/23 15:48 Source: patient Mode of arrival: Wheelchair History of Present Illness HPI Narrative: 73yoF presents by for evaluation of left lower extremity pain and swelling. Patient had a ground level fall 2 weeks prior. She states that x-rays were indeterminate for a fracture. She is been ambulating ?carefully? on her lower extremity, but it is still swollen and painful. She states she went to the walk-in clinic today and she was referred to the ER to rule out cellulitis. Patient takes Plavix, denies other blood thinners. Denies fevers, chills, other complaints. Related Data Home Medications Medication Instructions Recorded Confirmed metformin 500 mg tablet 1,000 mg PO BID 02/02/18 10/13/23 gabapentin 600 mg tablet 800 mg PO TID PRN pain 04/19/18 10/12/23 sertraline 100 mg tablet 100 mg PO DAILY 09/24/21 10/13/23 albuterol sulfate 90 mcg/actuation 2 puff inhalation Q6H PRN 10/26/21 10/12/23 aerosol inhaler (Ventolin HFA) Shortness Of Breath sumatriptan succinate 6 mg/0.5 mL 6 mg SUBCUT Q8HR PRN Headache 10/26/21 10/13/23 subcutaneous pen injector tiotropium bromide 1.25 2 puff inhalation DAILY 10/26/21 10/13/23 mcg/actuation mist for inhalation (Spiriva Respimat) Previous Rx's Medication Instructions Recorded clopidogrel 75 mg tablet 75 mg PO DAILY #30 tabs 01/25/20 bupropion HCl 300 mg 24 hr tablet, 300 mg PO DAILY #0 tabs 09/26/21 extended release clobetasol 0.05 % topical ointment 1 applic topical QAM AND QPM #60 09/30/22 grams nystatin 100,000 unit/gram topical 1 applic topical BID #60 grams 05/03/23 powder verapamil 40 mg tablet 60 mg (1.5 x 40 mg) PO TID #90 tabs 10/15/23 doxycycline hyclate 100 mg tablet 100 mg PO BID 7 days #14 tabs 11/02/23 Allergies Allergy/AdvReac Type Severity Reaction Status Date / Time vancomycin Allergy Intermediate Flushing & Verified 10/12/23 15:56 rash Review of Systems <Brandy Chatterjee MD - Last Filed: 11/04/23 07:05> Review of Systems Narrative: Negative except as noted above Patient History <Brandy Chatterjee MD - Last Filed: 11/04/23 07:05> Medical History Enteritis Adrenal mass Neuropathy Acute kidney injury (~12/2018) Hypothyroid Vitamin D deficiency Easy bruisability Osteopenia Cardiomegaly ABIOLA on CPAP History of recurrent TIAs History of concussion Polyneuropathy Radiculopathy Migraine Depression with anxiety Hyperlipidemia associated with type 2 diabetes mellitus Morbid obesity with BMI of 45.0-49.9, adult History of stroke Type 2 diabetes mellitus Surgical History History of lumbar spinal fusion (11/26/19) History of lumbar spinal fusion (06/27/17) History of 3 sections Hx of umbilical hernia repair S/P cholecystectomy S/P trigger finger release History of ventral hernia repair Family History Mother Heart disease Father Heart disease Grandfather Diabetes mellitus Other Family history non-contributory Social History marital status: unknown household members: none Smoking Status: Never smoker alcohol intake: never substance use type: does not use Smoking Status: Never smoker alcohol intake frequency: 0-2 drinks per day Substance Use Type: does not use and painkillers Exam <Brandy Chatterjee MD - Last Filed: 11/04/23 07:05> Initial Vital Signs Initial Vital Signs: Vital Signs Temperature 97.9 F 11/02/23 15:35 Pulse Rate 90 11/02/23 15:35 Respiratory Rate 18 11/02/23 15:35 Blood Pressure 173/98 H 11/02/23 15:35 Pulse Oximetry 98 11/02/23 15:35 Oxygen Delivery Method Room Air 11/02/23 15:35 Const: Awake, alert, no acute distress, appears chronically unwell, morbidly obes Cardiac: regular rate, regular rhythm RESP: unlabored, clear bilaterally, no wheezing GI: Atraumatic, soft, nontender, nondistended, no rebound, no guarding MSK: 1+ swelling around left knee and left distal leg to mid-light. Healing bruising noted Skin: Warm, Dry, intact, healing bruising LLE Neuro: AO x3, CN II-XII grossly intact, moves all extremities <Man Read DO - Last Filed: 11/02/23 19:10> Initial Vital Signs Initial Vital Signs: Vital Signs Temperature 97.9 F 11/02/23 15:35 Pulse Rate 90 11/02/23 15:35 Respiratory Rate 18 11/02/23 15:35 Blood Pressure 173/98 H 11/02/23 15:35 Pulse Oximetry 98 11/02/23 15:35 Oxygen Delivery Method Room Air 11/02/23 15:35 Course <Brandy Chatterjee MD - Last Filed: 11/04/23 07:05> Orders Ordered: Discontinued Medications Doxycycline Hyclate (Doxycycline Hyclate 100 Mg Tablet) 100 mg PO NOW ONE Stop: 11/02/23 19:06 Last Admin: 11/02/23 19:16 Dose: 100 mg Documented By: ERICK Vital Signs Vital signs: Vital Signs - 8 hr 11/02/23 15:35 11/02/23 15:51 11/02/23 16:00 Temperature 97.9 F Pulse Rate 90 92 H 90 Respiratory Rate 18 Blood Pressure 173/98 H Pulse Oximetry 98 98 99 Oxygen Delivery Method Room Air 11/02/23 16:00 11/02/23 16:30 11/02/23 16:30 Temperature Pulse Rate 91 H Respiratory Rate Blood Pressure 153/108 H 163/98 H Pulse Oximetry 98 Oxygen Delivery Method 11/02/23 17:00 11/02/23 17:00 11/02/23 17:30 Temperature Pulse Rate 88 Respiratory Rate Blood Pressure 173/86 H 170/90 H Pulse Oximetry 100 Oxygen Delivery Method 11/02/23 17:30 11/02/23 18:00 11/02/23 18:00 Temperature Pulse Rate 92 H 89 Respiratory Rate Blood Pressure 171/87 H Pulse Oximetry 97 94 Oxygen Delivery Method 11/02/23 18:30 11/02/23 18:30 11/02/23 19:00 Temperature Pulse Rate 89 101 H Respiratory Rate Blood Pressure 173/78 H Pulse Oximetry 98 97 Oxygen Delivery Method 11/02/23 19:00 Temperature Pulse Rate Respiratory Rate Blood Pressure 197/92 H Pulse Oximetry Oxygen Delivery Method <Man Read DO - Last Filed: 11/02/23 19:10> Orders Ordered: Discontinued Medications Doxycycline Hyclate (Doxycycline Hyclate 100 Mg Tablet) 100 mg PO NOW ONE Stop: 11/02/23 19:06 Last Admin: 11/02/23 19:16 Dose: 100 mg Documented By: ERICK Vital Signs Vital signs: Vital Signs - 8 hr 11/02/23 15:35 11/02/23 15:51 11/02/23 16:00 Temperature 97.9 F Pulse Rate 90 92 H 90 Respiratory Rate 18 Blood Pressure 173/98 H Pulse Oximetry 98 98 99 Oxygen Delivery Method Room Air 11/02/23 16:00 11/02/23 16:30 11/02/23 16:30 Temperature Pulse Rate 91 H Respiratory Rate Blood Pressure 153/108 H 163/98 H Pulse Oximetry 98 Oxygen Delivery Method 11/02/23 17:00 11/02/23 17:00 11/02/23 17:30 Temperature Pulse Rate 88 Respiratory Rate Blood Pressure 173/86 H 170/90 H Pulse Oximetry 100 Oxygen Delivery Method 11/02/23 17:30 11/02/23 18:00 11/02/23 18:00 Temperature Pulse Rate 92 H 89 Respiratory Rate Blood Pressure 171/87 H Pulse Oximetry 97 94 Oxygen Delivery Method 11/02/23 18:30 11/02/23 18:30 11/02/23 19:00 Temperature Pulse Rate 89 101 H Respiratory Rate Blood Pressure 173/78 H Pulse Oximetry 98 97 Oxygen Delivery Method 11/02/23 19:00 Temperature Pulse Rate Respiratory Rate Blood Pressure 197/92 H Pulse Oximetry Oxygen Delivery Method MDM - Extremity Injury (Lower) <Brandy Chatterjee MD - Last Filed: 11/04/23 07:05> Differential Diagnosis Differential diagnosis: Likely acute internal derangement of knee, ankle fracture and other (cellulitis) Lab Data 11/02/23 18:25 11/02/23 18:25 Labs: Lab Results 11/02/23 Range/Units 18:25 WBC 7.2 (4.5-11.0) X10^3/uL RBC 4.16 (4.0-5.2) X10^6/uL Hgb 12.4 (12.0-16.0) g/dL Hct 37.9 (36-46) % MCV 91.2 (80-100) fL MCH 29.8 (26-34) PG MCHC 32.6 (30-36) % RDW 14.5 (11.6-14.8) % Plt Count 307 (150-400) X10^3/uL Neut % (Auto) 66.0 (50-75) % Lymph % (Auto) 23.8 L (25-40) % [place] % (Auto) 7.1 (3-14) % Eos % (Auto) 2.5 (2-4) % Baso % (Auto) 0.6 (0-2) % Neut # (Auto) 4800 (1553-0064) /uL Lymph # (Auto) 1700 (3198-5945) /uL [place] # (Auto) 500 (0-900) /uL Eos # (Auto) 200 (0-450) /uL Baso # (Auto) 0 (0-100) /uL Sodium 140 (137-145) mmol/L Potassium 5.0 (3.4-5.1) mmol/L Chloride 105 (98-107) mmol/L Carbon Dioxide 31 (22-32) mmol/L BUN 25 H (7-17) mg/dL Creatinine 0.94 (0.52-1.04) mg/dL Estimated GFR > 60 (>60) mL/min BUN/Creatinine Ratio 26.6 H (6-22) Glucose 96 (80-110) mg/dL Calcium 10.1 (8.4-10.2) mg/dL Total Bilirubin 0.5 (0.2-1.3) mg/dL AST 22 (14-36) IU/L ALT 17 (<35) IU/L Alkaline Phosphatase 95 (38-126) U/L Total Protein 7.9 (6.3-8.2) g/dL Albumin 3.7 (3.5-5.0) g/dL Globulin 4.2 H (1.7-4.1) g/dL Albumin/Globulin Ratio 0.9 L (1.0-2.8) MDM Narrative Medical decision making narrative: 73-year-old female presenting for lower extremity pain and swelling. Patient states she was referred out of concern that she may have cellulitis, however the lower extremity is not warmer to touch than the right lower extremity. There is healing bruising noted along the left knee and left light. I have low suspicion for cellulitis, I believe this is a sequela of patient's previous injury and is in stages of healing. We will order basic laboratory work to assess for leukocytosis or other indicators of infection and we will order ultrasound of the lower extremity. Ultrasound indeterminate for clot, there may be possible nonocclusive thrombus in the distal lower extremity, however exam limited due to habitus and patient pain. Pending laboratory work. Care of patient is signed out to Dr. Read at 1800 <Man Read DO - Last Filed: 11/02/23 19:10> Lab Data Labs: Lab Results 11/02/23 Range/Units 18:25 WBC 7.2 (4.5-11.0) X10^3/uL RBC 4.16 (4.0-5.2) X10^6/uL Hgb 12.4 (12.0-16.0) g/dL Hct 37.9 (36-46) % MCV 91.2 (80-100) fL MCH 29.8 (26-34) PG MCHC 32.6 (30-36) % RDW 14.5 (11.6-14.8) % Plt Count 307 (150-400) X10^3/uL Neut % (Auto) 66.0 (50-75) % Lymph % (Auto) 23.8 L (25-40) % Da[place]hin % (Auto) 7.1 (3-14) % Eos % (Auto) 2.5 (2-4) % Baso % (Auto) 0.6 (0-2) % Neut # (Auto) 4800 (4392-3946) /uL Lymph # (Auto) 1700 (0981-0371) /uL [place]hin # (Auto) 500 (0-900) /uL Eos # (Auto) 200 (0-450) /uL Baso # (Auto) 0 (0-100) /uL Sodium 140 (137-145) mmol/L Potassium 5.0 (3.4-5.1) mmol/L Chloride 105 (98-107) mmol/L Carbon Dioxide 31 (22-32) mmol/L BUN 25 H (7-17) mg/dL Creatinine 0.94 (0.52-1.04) mg/dL Estimated GFR > 60 (>60) mL/min BUN/Creatinine Ratio 26.6 H (6-22) Glucose 96 (80-110) mg/dL Calcium 10.1 (8.4-10.2) mg/dL Total Bilirubin 0.5 (0.2-1.3) mg/dL AST 22 (14-36) IU/L ALT 17 (<35) IU/L Alkaline Phosphatase 95 (38-126) U/L Total Protein 7.9 (6.3-8.2) g/dL Albumin 3.7 (3.5-5.0) g/dL Globulin 4.2 H (1.7-4.1) g/dL Albumin/Globulin Ratio 0.9 L (1.0-2.8) MDM Narrative Medical decision making narrative: 73-year-old female presenting for lower extremity pain and swelling. Patient states she was referred out of concern that she may have cellulitis, however the lower extremity is not warmer to touch than the right lower extremity. There is healing bruising noted along the left knee and left light. I have low suspicion for cellulitis, I believe this is a sequela of patient's previous injury and is in stages of healing. We will order basic laboratory work to assess for leukocytosis or other indicators of infection and we will order ultrasound of the lower extremity. Ultrasound indeterminate for clot, there may be possible nonocclusive thrombus in the distal lower extremity, however exam limited due to habitus and patient pain. Pending laboratory work. Care of patient is signed out to Dr. Read at 1800 Dr read: Received turned over. Review patient's history and physical exam. Based on her physical exam today I have a low suspicion that she has a DVT. She was afebrile. Does not have a leukocytosis. Has 2 separate areas of skin changes on her left lower extremity around her knee and on her left leg between her knee and her ankle. There is 1 area that is more consistent with a bruising that is healing most likely from the fall 2 weeks ago. 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 She has been on antibiotics for the past 5 days. Does not know the name of the antibiotics and has been taking it 3 times a day. She is afebrile. Plan will be to switch her to a new antibiotic. Will start her on doxycycline. First dose given here in the emergency department. No indication for admission to the hospital. No indication for Re x-rays. Will discharge patient home with return precautions. She expressed understanding and agreement. Discharge Plan Departure Patient Disposition: Home Clinical Impression: Cellulitis Instructions: DI for Cellulitis -- Adult Activity Restrictions/Additional Instructions: Based on your exam today we are going to switch you to a new antibiotic called doxycycline. You can stop taking the antibiotic that you have been taking. Your 1st dose of the antibiotic was given here in the ER and a prescription was sent to [facility] pharmacy. Contact your primary doctor for follow-up. Return to the emergency department for new symptoms Prescriptions: New doxycycline hyclate 100 mg tablet 100 mg PO BID 7 Days Qty: 14 0RF No Action clobetasol 0.05 % ointment 1 applic topical QAM AND QPM Qty: 60 12RF nystatin 100,000 unit/gram powder 1 applic topical BID Qty: 60 12RF clopidogrel 75 mg Tablet 75 mg PO DAILY Qty: 30 0RF sumatriptan succinate 6 mg/0.5 mL Pen Injector 6 mg SUBCUT Q8HR PRN (Reason: Headache) albuterol sulfate [Ventolin HFA] 90 mcg/actuation Hfa Aerosol Inhaler 2 puff INHALATION Q6H PRN (Reason: Shortness Of Breath) Spiriva Respimat 1.25 mcg/actuation Mist 2 puff INHALATION DAILY verapamil 40 mg tablet 60 mg PO TID Qty: 90 0RF metformin 500 mg Tablet 1,000 mg PO BID gabapentin 600 mg tablet 800 mg PO TID PRN (Reason: pain) sertraline 100 mg tablet 100 mg PO DAILY Patient Comments: take 1 tablet by mouth once daily for anxiety bupropion HCl 300 mg tablet extended release 24 hr 300 mg PO DAILY Qty: 0 0RF Referrals: Andrea Coyne MD [Primary Care Provider] - Stand Alone Forms: Patient Portal/API
--- NOTE | 2023-11-02 16:05 | DI.US.S_ITS ---
PROCEDURE: US PERIP VENOUS LOW EXTREM LT INDICATIONS: LLE SWELLING/PAIN TECHNIQUE: Real-time imaging, as well as color and pulse Doppler interrogation, were performed of the lower extremity deep veins from the inguinal ligament to the popliteal fossa, with documentation of the visualized calf veins. COMPARISON: [facility], , [facility] VENOUS LOW EXTREM LT, 11/30/2019, 11:08. FINDINGS: This study is limited by body habitus. Within the distal aspect of the femoral vein, there is incomplete compressibility. The remainder of the deep venous system is within normal limits. However, the calf veins are not well seen. IMPRESSION: Limited study, with potential partial thrombus within the distal femoral vein. If clinically appropriate, please consider short-term follow-up. Dictated by: David Winchester M.D. on 11/02/2023 at 16:34 Approved by: David Winchester M.D. on 11/02/2023 at 16:35
[2023-11-02 18:33] LABS: Add Manual Diff / Slide Review NO; Basophils Absolute Auto 0 /uL (0-100); Basophils Percent Auto 0.6 % (0-2); Eosinophils Absolute Auto 200 /uL (0-450); Eosinophils Percent Auto 2.5 % (2-4); Hematocrit 37.9 % (36-46); Hemoglobin 12.4 g/dL (12.0-16.0); Lymphocytes Absolute Auto 1700 /uL (1100-4500); Lymphocytes Percent Auto 23.8 % (25-40); Mean Corpuscular HGB Conc 32.6 % (30-36); Mean Corpuscular Hemoglobin 29.8 PG (26-34); Mean Corpuscular Volume 91.2 fL (80-100); Monocytes Absolute Auto 500 /uL (0-900); Monocytes Percent Auto 7.1 % (3-14); Neutrophils Absolute Auto 4800 /uL (1500-7000); Platelet Count 307 X10^3/uL (150-400); Red Blood Cell Count 4.16 X10^6/uL (4.0-5.2); Red Cell Distribution Width 14.5 % (11.6-14.8); White Blood Cell Count 7.2 X10^3/uL (4.5-11.0)
[2023-11-02 18:45] LABS: Alanine Aminotransferase 17 IU/L (<35); Albumin 3.7 g/dL (3.5-5.0); Albumin Globulin Ratio 0.9 (1.0-2.8); Alkaline Phosphatase 95 U/L (38-126); Aspartate Aminotransferase 22 IU/L (14-36); BUN Creatinine Ratio 26.6 (6-22); Bilirubin Total 0.5 mg/dL (0.2-1.3); Blood Urea Nitrogen 25 mg/dL (7-17); Calcium 10.1 mg/dL (8.4-10.2); Carbon Dioxide 31 mmol/L (22-32); Chloride 105 mmol/L (98-107); Estimated Glomerular Filt Rate > 60 mL/min (>60); Globulin 4.2 g/dL (1.7-4.1); Glucose 96 mg/dL (80-110); HEMOLYSIS < 15 (0-50); Sodium 140 mmol/L (137-145); Total Protein 7.9 g/dL (6.3-8.2)
[2023-11-02] MEDS: DOXYCYCLINE HYCLATE 100 MG TABLET PO (19:16)
== END 2023-11-02 19:25 | disposition home or self-care (01) ==
PROVIDERS: Emergency Medicine; Emergency Provider Emergency Medicine; PCP Internal Medicine
DX: L03.116 Cellulitis of left lower limb (principal)
CPT/HCPCS: 36415; 80053; 85025; 93971; 99283; 99284

== ENCOUNTER → 2024-01-11 11:52 | Outpatient (CLI) | payer MEDICARE, MEDICAID, SELFPAY ==
[2023-10-12 19:48] VITALS: BMI 44.5
--- NOTE | 2024-01-11 12:57 | DI.MRI.S_ITS ---
PROCEDURE: MR THORACIC SPINE WO CON INDICATIONS: Spondylosis , lumbar region TECHNIQUE: Noncontrast sagittal T1 spine echo and T2 fast spin echo, sagittal STIR, and T2 fast spin echo through the thoracic spine. COMPARISON: [facility], MR, MR LUMBAR SPINE WO CON, 01/07/2023, 13:38. [facility], CT, CT ANGIO CHEST PE PROTOCOL, 05/21/2018, 17:42. FINDINGS: Image quality: There is artifact associated with the metallic hardware. Alignment and Curvature: There is minimal retrolisthesis seen at T12-L1. Bone Marrow: Marrow is of normal overall signal. No acute vertebral body compression fractures. Spinal Cord: Visualized spinal cord is normal in size and signal. Paraspinous Soft Tissues: No paravertebral masses. Miscellaneous: This patient has transitional anatomy, with only 11 well-developed pairs of ribs. For the purposes of this report, there is no T12 vertebral body. At the T10-T11 level, there is mild loss of disc height. Mild disc bulge is seen, with a mild central disc protrusion. Moderate bilateral neural foraminal narrowing is seen. Minimal central canal narrowing is seen. At the T11-L1 level, there is moderate loss of disc height. Reactive marrow endplate changes are seen, which demonstrate mixed T1 weighted and T2-weighted signal, and are attributed to a combination of edema and fatty metaplasia (Modic type I and Modic type II changes). Mild disc bulge is seen, which is eccentric to the right. There is [id number] left-sided and at least moderate right-sided neural foraminal narrowing. No significant central canal narrowing is seen. At L1-L2, there is moderate loss of disc height seen. Reactive marrow endplate changes are seen which are hypointense on T1-weighted imaging and hyperintense on T2 weighted imaging, which is most consistent with edema (Modic type I changes). Moderate generalized disc bulge is seen. There is moderate right-sided and at least moderate left-sided neural foraminal narrowing. Mild to moderate central canal narrowing is seen. Milder degenerative changes are seen elsewhere. Upper lumbar spine postoperative hardware is seen. IMPRESSION: Thoracolumbar spine degenerative changes are seen, which are worst at the L1-L2 level. There is transitional abdomen, with only 11 well-developed appears of ribs. The degenerative changes are similar to the prior examination. Dictated by: David Winchestre M.D. on 01/11/2024 at 16:45 Approved by: David Winchester M.D. on 01/11/2024 at 16:53
== END ==
LOC: MRI 11:52
PROVIDERS: PCP Internal Medicine; Referring Provider Physical Medicine & Rehabilitation; Visit Provider Physical Medicine & Rehabilitation
DX: M47.815 Spondylosis without myelopathy or radiculopathy, thoracolumbar region (principal); M47.816 Spondylosis without myelopathy or radiculopathy, lumbar region
CPT/HCPCS: 72146